=== PATIENT | male | born 1955 | race Caucasian/White ===

== ENCOUNTER 2021-05-10 18:58 | Emergency (ER) | payer MEDICARE, SELFPAY ==
[2021-05-10 19:02] VITALS: BP 160/87; PULSE 84; RESP 16; TEMP 36.2; O2SAT 94; BMI 28.9
--- NOTE | 2021-05-10 19:24 | USCV_ITS ---
Guy Wiseman Age: 66 Gender: M : 1955 Exam Date: 05/10/2021 19:54 Ordering Phys: Seb Brizuela Technologist: Exam Location: [facility] – [place], [place] Indication: LT LEG HISTORY: LT LEG PAIN AND TRAUMA PROCEDURES: Venous duplex imaging was performed in only the left lower extremity. The following venous structures were evaluated: common femoral vein, profunda vein, proximal portion of the greater saphenous vein, superficial femoral vein, and the popliteal vein. In addition, the posterior tibial and peroneal trunk were evaluated. FINDINGS: Normal 2-D Doppler and augmentation and compressibility throughout the lower extremity venous structures. Additional imaging through the proximal calf veins also reveals no thrombus. Limited evaluation of the greater saphenous vein is patent with no thrombus.. CONCLUSIONS No DVT left lower extremity. Dr. Charlotte George DO (Electronically Signed) Final Date: 11 May 2021 09:24 S
--- NOTE | 2021-05-10 19:25 | W.ED.EXTPRO ---
HPI - Extremity Problem General: Chief complaint: Extremity Injury, Lower Stated complaint: LLE INJURY/HIT BY LADDER Time Seen by Provider: 05/10/21 19:16 History of Present Illness: HPI Narrative: Patient is a 66-year-old male comes to the ED with left lower leg pain. Patient says that approximately 3 weeks ago he started developing some swelling and pain in his left lower leg. The swelling and pain improved and then the whole week ago a ladder fell down and caused a small cut on to patient's left schneider. He is now having some redness and pain around the wound on his left schneider. Denies any chest pain, acute shortness of breath or hemoptysis. Patient says he does have a history of blood clots and is currently on warfarin. Associated symptoms: Deny chest pain, fever(s) or rash Review of Systems Const: Denies: fever(s), chills or fatigue Eyes: Denies: change in vision or eye discomfort ENMT: Denies: throat pain, odynophagia, nasal discharge or nasal congestion Card: Denies: chest pain, palpitations, edema, swelling of feet/ankles, dyspnea on exertion or orthopnea Resp: Denies: dyspnea, productive cough or non-productive cough GI: Denies: abdominal pain, nausea, vomiting, diarrhea, constipation or hematochezia : Denies: flank pain, difficulty urinating, dysuria or hematuria Musc: Reports: extremity pain (left lower leg); Denies: neck pain, back pain or extremity swelling Skin/Breast: Reports: erythema (Redness around wound on left schneider), skin tenderness (Skin tender around wound on left schneider.) and new lesions (Small superficial wound on left lower extremity); Denies: rash Neuro: Denies: headache(s), numbness in extremities or weakness in extremities PFS ED PFSH: Social History Smoking and tobacco status: current every day smoker Alcohol intake: never Physical Exam Const: COMMON NORMALS: no acute distress, patient oriented x3 and alert HENMT: COMMON NORMALS: normocephalic HEAD & SCALP: normocephalic MOUTH: Normal oral and palatal mucosa present THROAT: posterior oropharynx normal and uvula midline Neck/C-Spine: COMMON NORMALS: supple GENERAL: Yes normal visual inspection Resp: COMMON NORMALS: normal respiratory effort, No retractions, No use of accessory muscles and clear to auscultation bilaterally AUSCULTATION: clear to auscultation bilaterally Cardio: COMMON NORMALS: regular rate, regular rhythm, S1 normal heart sound present, S2 normal heart sound present, No gallops present (Cardio), No clicks present (Cardio), No murmurs present (Cardio) and Peripheral pulses 2+ throughout RATE: regular rate RHYTHM: regular rhythm HEART SOUNDS: S1 normal heart sound present and S2 normal heart sound present PERIPHERAL PULSES: Peripheral pulses 2+ throughout GI: COMMON NORMALS: Normal to inspection, nondistended, normoactive bowel sounds present, Soft to palpation, non-tender and no masses PALPATION: Yes Soft to palpation : COMMON NORMALS: Yes no CVA tenderness BLADDER/KIDNEY EXAM: Yes no CVA tenderness Back/Pelvis: COMMON NORMALS: no CVA tenderness Extremity: COMMON NORMALS: normal to inspection and no pedal edema NARRATIVE EXTREMITY EXAM: Left lower leg?patient has a small superficial wound that is healing appropriately. There is some surrounding erythema, warmth and tenderness to palpation. GENERAL: Yes calf tenderness (Mild left calf tenderness) Neuro: COMMON NORMALS: patient oriented x3 and moves all extremities SENSORIUM/ORIENTATION: Yes alert Skin: NARRATIVE SKIN EXAM: Left lower leg?patient has a small superficial wound that is healing appropriately. There is some surrounding erythema, warmth and tenderness to palpation. Findings suggestive of cellulitis developing. GENERAL SKIN EXAM: dry skin Course Vital Signs: Vital signs: Vital Signs Temperature 97.1 F L 05/10/21 19:02 Pulse Rate 86 05/10/21 20:23 Respiratory Rate 16 05/10/21 20:23 Blood Pressure 149/87 05/10/21 20:23 Pulse Oximetry 94 05/10/21 20:23 MDM - Extremity (Nontraumatic) MDM Narrative: Medical decision making narrative: Patient is a 66-year-old male comes to the ED with left lower extremity pain and swelling. Patient denies any chest pain, shortness of breath or hemoptysis. He describes having a ladder fall and its cost wound on his left schneider. He states though before that wound he was having some left leg swelling and pain. Exam findings show some cellulitis developing around a small superficial wound on left lower leg. He also had some left calf tenderness. Ultrasound venous duplex of left lower extremity showed no DVTs or blood clots seen. Patient diagnosed with cellulitis and discharged home with a prescription for Bactrim. Follow-up with PCP in 7 to 10 days reevaluation. Return to ED precautions given. Patient understood agree with plan. Imaging Data^: US Vascular: Attestation: I personally reviewed and interpreted this imaging study as follows: Radiologist's impression: Ultrasound venous duplex of left lower extremity?no DVTs or blood clots seen. Discharge Plan Discharge Patient Disposition: Home Clinical Impression: Cellulitis Qualifiers: Site of cellulitis: extremity Site of cellulitis of extremity: lower extremity Laterality: left Qualified Code(s): L03.116 - Cellulitis of left lower limb Condition: Stable Prescriptions: New Bactrim DS 800-160 mg tablet 1 tab PO BID 7 Days Qty: 14 RF: 0 No Action warfarin 5 mg tablet 5 mg PO DAILY RF: 0 levothyroxine [Synthroid] 100 mcg tablet 100 mcg PO DAILY RF: 0 metformin 1,000 mg tablet 1,000 mg PO BID RF: 0 aspirin 81 mg tablet,delayed release (DR/EC) 81 mg PO DAILY RF: 0 Humulin 70/30 U-100 Insulin 100 unit/mL (70-30) suspension 60 unit SUBCUT BID Qty: 30 RF: 5 simvastatin 40 mg tablet 40 mg PO DAILY Qty: 30 RF: 0 Discharge Orders: Discharge ED (Routine); Ordered 05/10/21 Ordered By: Seb Brizuela Referrals: Patrick Nick MD [Primary Care Provider] - Discharge Diet: Regular Discharge Activity: Resume usual activity Patient Instructions: Cellulitis (ED) Activity Restrictions/Additional Instructions: Follow-up with medical provider as directed in 7 to 10 days for reevaluation. Take medications as prescribed. Return to the ER or your medical provider if condition worsens. Please read and understand discharge instructions. Thank you for choosing [facility] for your healthcare needs today. Please realize this is an emergency room and that we are providing you with a medical screening exam and this may not be complete and all inclusive of all the testing and or work up that you may need to determine your ailment or severity of your illness. It is very important that you follow up as instructed or that you return to the Emergency Department should you have concerns or if your condition changes or worsens in any way. Coding Level of Care Code ED Hydraulic Oil Tool Operator for José Cade Exam Comprehensive
[2021-05-10] MEDS: sulfamethoxazole-trimeth DS 160-800 mg Tablet 1 TAB PO (20:03)
[2021-05-10 20:23] VITALS: BP 149/87; PULSE 86; RESP 16; O2SAT 94
== END 2021-05-10 20:10 | disposition home or self-care (01) ==
PROVIDERS: Emergency Provider Physician Assistant; PCP Family Medicine
DX: L03.116 Cellulitis of left lower limb (principal); Z79.01 Long term (current) use of anticoagulants; Z79.82 Long term (current) use of aspirin; Z79.4 Long term (current) use of insulin; F17.210 Nicotine dependence, cigarettes, uncomplicated
CPT/HCPCS: 93971; 99283

== ENCOUNTER 2021-05-23 13:40 | Emergency (ER) | payer MEDICARE, SELFPAY ==
[2021-05-23] VITALS (9 sets, daily range): BP systolic 88–177; BP diastolic 62–95; PULSE 83–103; RESP 15; TEMP 36.4; O2SAT 91–98; BMI 28.4
--- NOTE | 2021-05-23 14:06 | ED_ITS ---
HPI - Abdominal Pain General: Chief Complaint: Abdominal Pain Stated Complaint: ABD PAIN Time Seen by Provider: 05/23/21 13:53 Source: patient and family (Daughter) Mode of arrival: ambulatory Limitations: no limitations History of Present Illness: HPI narrative: Patient with mid abdominal cramping since 4 days ago. Patient is unsure of the source of the discomfort. Patient states she does have a chronic cough from his smoking. No change in the cough. Patient denies any fever chills or myalgias. He denies any urinary symptoms. States he had normal bowel movements this morning. Patient denies any GI bleed or melena. He has used Pepto-Bismol earlier in the week that caused a stool to be dark. He has a chronic umbilical hernia that is easily reducible and nontender. He reports history of pulmonary embolus in 2003 and has been on warfarin since then. He also complains of mild redness to his left lower leg after scraping his left lower leg in the past few days with a ladder. He was seen in the emergency room approximately 10 to 12 days ago for the same problem but a separate incident. He reports the cellulitis did clear up until striking it again with the same ladder. Denies any history of abdominal surgery. He does smoke. MD elicited complaint: abdominal pain (Periumbilical cramping.) Pertinent past history: none Onset (ago): day(s) (4) Pain Consistency: other (Intermittent cramps) Location: Periumbilical Severity: mild Quality: cramping Radiation: none Migration to: no migration Exacerbating factors: nothing Relieving factors: nothing Associated Symptoms: Reports GI cramping; Denies anorexia, change in bowel habits, change in stool character, chills, constipation, diarrhea, dysuria, fever(s), hematochezia, hematuria, hematemesis, melena, nausea and vomiting Review of Systems Const: Denies: fever(s), chills, body aches or diaphoresis Eyes: Denies: change in vision ENMT: Denies: throat pain Card: Denies: chest pain or palpitations Resp: Reports: non-productive cough; Denies: dyspnea or wheezing GI: Reports: abdominal pain and GI cramping; Denies: nausea, vomiting, hematemesis, diarrhea, constipation, change in bowel h abits, change in stool character, hematochezia or melena : Denies: flank pain, dysuria or hematuria Musc: Denies: neck pain or back pain Skin/Breast: Denies: rash or pruritus Neuro: Denies: headache(s) or numbness in extremities Psych: Denies: anxiety Rogelio/Lymph: Denies: enlarged lymph nodes PFSH ED PFSH: Social History Smoking and tobacco status: current every day smoker Alcohol intake: never Physical Exam Const: COMMON NORMALS: no acute distress, patient oriented x3, no limitations and well nourished EXAM LIMITATIONS: altered mental status GENERAL APPEARANCE: cooperative HENMT: COMMON NORMALS: normocephalic and atraumatic HEAD & SCALP: normocephalic and atraumatic FACE & SINUS: normal facial exam Eye: COMMON NORMALS: EOMs intact bilaterally Neck/C-Spine: COMMON NORMALS: full ROM, no lymphadenopathy, supple, no meningeal signs and no JVD GENERAL: Yes normal visual inspection Lymph: LYMPHATIC: no lymphadenopathy noted Chest: COMMONS NORMALS: normal inspection of the chest and normal palpation of entire chest wall CHEST: No Ecchymosis present and No rash Resp: COMMON NORMALS: normal respiratory effort, No retractions, No use of accessory muscles and clear to auscultation bilaterally EFFORT & INSPECTION: No respiratory distress AUSCULTATION: clear to auscultation bilaterally Cardio: COMMON NORMALS: no JVD, regular rate, regular rhythm and Peripheral pulses 2+ throughout JUGULAR VENOUS DISTENTION: no JVD RATE: regular rate RHYTHM: regular rhythm PERIPHERAL PULSES: Peripheral pulses 2+ throughout OTHER: No bruits GI: COMMON NORMALS: Normal to inspection, nondistended, normoactive bowel sounds present (Except does have a approximately 2.5 cm diameter nt umbilical hernia ), Soft to palpation and No hepatosplenomegaly present PALPATION: Yes Soft to palpation and Yes No hepatosplenomegaly present OTHER: Mild tenderness to the abdomen just above the umbilicus. No guarding or rebound. Normoactive bowel sounds : COMMON NORMALS: Yes no CVA tenderness BLADDER/KIDNEY EXAM: Yes no CVA tenderness Back/Pelvis: COMMON NORMALS: no CVA tenderness Extremity: COMMON NORMALS: normal to inspection (Except rash and abrasion as described in skin exam), full ROM and capillary refill normal Neuro: COMMON NORMALS: patient oriented x3, CN's II-XII intact bilaterally, no focal motor deficits and no sensory deficits noted MENINGEAL SIGNS: Yes no meningeal signs Psych: COMMON NORMALS: mental status grossly normal and Normal thought process present THOUGHT PROCESS: Normal thought process present Skin: NARRATIVE SKIN EXAM: Minimal healing abrasion to the left lower anterior tibia. Patient does have mild surrounding cellulitis that is minimally warm. No abscess. Course Vital Signs: Vital signs: Vital Signs Temperature 97.6 F 05/23/21 13:49 Pulse Rate 92 05/23/21 17:30 Respiratory Rate 15 05/23/21 13:49 Blood Pressure 173/93 05/23/21 17:30 Pulse Oximetry 93 05/23/21 17:30 MDM - Abdominal Pain MDM Narrative: Medical decision making narrative: 1800: bp 173/83, will give hydralazine here. Patient states he normally does not have high blood pressure. Patient was advised to follow his blood sugar closely. Patient advised to have liquid diet for the next 24 hours then advance as tolerated. He has an appointment with his primary care physician later this week and will go over high blood pressure issue, mildly elevated lipase and hematuria. Will have patient follow-up with urology for hematuria. Differential Diagnosis: Differential diagnosis abdominal pain: Likely abdominal pain and pancreatitis Lab Data: Attestation: I reviewed the patient's lab results. Labs: Lab Results 05/23/21 05/23/21 05/23/21 Range/Units 14:44 15:15 15:15 WBC 8.9 (4.0-10.0) 10^3/ uL RBC 5.40 H (4.1-5.3) 10^6/u L Hgb 16.7 H (11.7-16.6) g/dL Hct 50.2 (42.0-52.0) % MCV 93.0 (80-94) fL MCH 30.9 (28.0-34.0) pg MCHC 33.3 (30.0-36.0) g/dL RDW 14.1 (12.1-15.1) % Plt Count 194 (130-400) 10^3/c mm MPV 11.3 H (7.4-10.4) fL Neut % (Auto) 58.2 % Lymph % (Auto) 29.7 % [place] % (Auto) 8.9 % Eos % (Auto) 2.1 % Baso % (Auto) 0.6 % Neut # (Auto) 5.17 (1.8-7.7) 10^3/u L Lymph # (Auto) 2.6 (0.8-4.8) 10^3/u L [place] # (Auto) 0.8 (0.2-0.9) 10^3/u L Eos # (Auto) 0.2 (0.0-0.8) 10^3/u L Baso # (Auto) 0.1 (0.0-0.1) 10^3/u L Nucleated RBC % (a uto) 0 % Nucleated RBCs # 0.0 /100WBC Sodium Cancelled Potassium Cancelled Chloride Cancelled Carbon Dioxide Cancelled Anion Gap Cancelled BUN Cancelled Creatinine Cancelled GFR Calculation Cancelled Glucose Cancelled Calculated Osmolal ity Cancelled Calcium Cancelled Total Bilirubin Cancelled AST Cancelled ALT Cancelled Alkaline Phosphata se Cancelled Total Protein Cancelled Albumin Cancelled Globulin Cancelled Lipase Cancelled Urine Color Straw (Yellow) Urine Appearance Clear (CLEAR) Urine pH 5 (5-7) Ur Specific Gravit y 1.015 (1.005-1.030) Urine Protein 3+ H (Negative) Urine Glucose (UA) 4+ H (Normal) Urine Ketones Negative (Negative) Urine Blood 3+ H (Negative) Urine Nitrate Negative (Negative) Urine Bilirubin Neg (Negative) Urine Urobilinogen Norm (Negative) mg/dL Ur Leukocyte Christiana ase Negative (Negative) Urine RBC 10-15 H (0-2) /hpf Urine WBC Rare (0-5) /hpf Ur Squamous Epith Cells None (0-5) /hpf Amorphous Sediment Not Reportable Urine Bacteria Trace (NONE) /hpf 05/23/21 Range/Units 15:58 WBC (4.0-10.0) 10^3/ uL RBC (4.1-5.3) 10^6/u L Hgb (11.7-16.6) g/dL Hct (42.0-52.0) % MCV (80-94) fL MCH (28.0-34.0) pg MCHC (30.0-36.0) g/dL RDW (12.1-15.1) % Plt Count (130-400) 10^3/c mm MPV (7.4-10.4) fL Neut % (Auto) % Lymph % (Auto) % [place] % (Auto) % Eos % (Auto) % Baso % (Auto) % Neut # (Auto) (1.8-7.7) 10^3/u L Lymph # (Auto) (0.8-4.8) 10^3/u L [place] # (Auto) (0.2-0.9) 10^3/u L Eos # (Auto) (0.0-0.8) 10^3/u L Baso # (Auto) (0.0-0.1) 10^3/u L Nucleated RBC % (a uto) % Nucleated RBCs # /100WBC Sodium 137 Potassium 4.5 Chloride 100 Carbon Dioxide 27 Anion Gap 14.5 BUN 21 Creatinine 1.0 GFR Calculation 74.5 L Glucose 320 H Calculated Osmolal ity 299 H Calcium 9.2 Total Bilirubin 0.4 AST 13 ALT 11 Alkaline Phosphata se 110 Total Protein 6.8 Albumin 3.3 L Globulin 3.5 Lipase 116 H Urine Color (Yellow) Urine Appearance (CLEAR) Urine pH (5-7) Ur Specific Gravit y (1.005-1.030) Urine Protein (Negative) Urine Glucose (UA) (Normal) Urine Ketones (Negative) Urine Blood (Negative) Urine Nitrate (Negative) Urine Bilirubin (Negative) Urine Urobilinogen (Negative) mg/dL Ur Leukocyte Christiana ase (Negative) Urine RBC (0-2) /hpf Urine WBC (0-5) /hpf Ur Squamous Epith Cells (0-5) /hpf Amorphous Sediment Urine Bacteria (NONE) /hpf Imaging Data ^: CT Abd/Pel: Radiologist's impression: Guy Wiseman #: [id number]: 4Acct#:[id number]/Sex: 66 / MADM Date: 05/23/21Loc: ERRoom/Bed:Attending Dr: Ordering Provider/Ordering MD: Gallo Sandhu MD Date of Service: 05/23/21 Procedure(s): CT abdomen pelvis w con* [id number] Accession Number(s): [id number] Report Number: [id number] PROCEDURE INFORMATION: Exam: CT Abdomen And Pelvis With Contrast Exam date and time: 05/23/2021 4:44 PM Age: 66 years old Clinical indication: Abdominal pain; Generalized; Additional info: Pain, mildly elevated lipase, insulin-dependent diabetic; ^microscopic hematuria TECHNIQUE: Imaging protocol: Computed tomography of the abdomen and pelvis with contrast. Radiation optimization: All CT scans at this facility use at least one of these dose optimization techniques: automated exposure control; mA and/or kV adjustment per patient size (includes targeted exams where dose is matched to clinical indication); or iterative reconstruction. Contrast material: OMNI 300; Contrast volume: 95 ml; Contrast route: INTRAVENOUS (IV); COMPARISON: CTA AbdAorta Runoff Leg [id number] 08/26/2019 2:52 PM RADIATION DOSE METRICS: Total DLP (mGy-cm): 1444.64 FINDINGS: Liver: Normal. No mass. Gallbladder and bile ducts: Normal. No calcified stones. No ductal dilation. Pancreas: Normal. No ductal dilation. Spleen: Normal. No splenomegaly. Adrenal glands: Normal. No mass. Kidneys and ureters: Normal. No hydronephrosis. No calcified stones. Stomach and bowel: Unremarkable. No obstruction. No mucosal thickening. Appendix: No evidence of appendicitis. Intraperitoneal space: Unremarkable. No free air. No significant fluid collection. Vasculature: Scattered atherosclerosis. No aneurysm. No dissection. No acute vascular occlusion. Lymph nodes: Unremarkable. No enlarged lymph nodes. Urinary bladder: Unremarkable as visualized. Reproductive: Unremarkable as visualized. Bones/joints: Old wedge compression fracture deformity at T12 is unchanged from prior. No acute fractures. No lytic bone lesion. Soft tissues: Small fat containing umbilical hernia. CT/CT abdomen pelvis w con* [id number] IMPRESSION: Negative for acute abdominopelvic abnormality. Radiation Dose CTDIVOL = (mGy): DLP = 1444.64 (mGy-cm) Dictated By:Mely Lizama By:Mely Lizama Date/Time:05/23/21 7551 Discharge Plan Discharge Patient Disposition: Home Clinical Impression: Borderline high blood pressure Abdominal pain Qualifiers: Abdominal location: periumbilical Qualified Code(s): R10.33 - Periumbilical pain Hematuria Qualifiers: Hematuria type: asymptomatic microscopic Qualified Code(s): R31.21 - Asymptomatic microscopic hematuria Condition: Stable Prescriptions: New dicyclomine 20 mg tablet 20 mg PO QID Qty: 15 RF: 1 Zofran 4 mg tablet 4 mg PO Q6H PRN (Reason: nausea and vomiting) Qty: 10 RF: 2 No Action warfarin 5 mg tablet 5 mg PO DAILY RF: 0 levothyroxine [Synthroid] 100 mcg tablet 100 mcg PO DAILY RF: 0 metformin 1,000 mg tablet 1,000 mg PO BID RF: 0 aspirin 81 mg tablet,delayed release (DR/EC) 81 mg PO DAILY RF: 0 Humulin 70/30 U-100 Insulin 100 unit/mL (70-30) suspension 60 unit SUBCUT BID Qty: 30 RF: 5 simvastatin 40 mg tablet 40 mg PO DAILY Qty: 30 RF: 0 Discharge Orders: Discharge ED (Routine); Ordered 05/23/21 Ordered By: Gallo Sandhu Referrals: Ronaldo Mccormick MD [Physician] - (Follow-up with urology to evaluate your blood in your urine.) Patrick Nick MD [Primary Care Provider] - Discharge Diet: Clear Liquid Discharge Activity: Increase activity as tolerated Patient Instructions: Abdominal Pain (ED), Opioid Safety Activity Restrictions/Additional Instructions: Liquid diet for the next 24 hours. Advance diet as tolerated. Follow-up with your family doctor this week as scheduled for consultation of your mildly elevated blood pressure and blood in your urine. Follow-up with your urologist for evaluation of the blood in your urine. Coding Level of Care Code ED Greeting Card Writer for José Fwd Exam Comprehensive
[2021-05-23] MEDS: sodium chloride 0.9% 500 ML IV ×2 (15:15→17:21)
[2021-05-23 15:23] LABS: Bilirubin Urine Neg (Negative); Blood Urine 3+ (Negative); Glucose Urine UA 4+ (Normal); Ketones Urine Negative (Negative); Leukocyte Esterase Urine Negative (Negative); Nitrate Urine Negative (Negative); Protein Urine 3+ (Negative); Specific Gravity, Urine 1.015 (1.005-1.030); Urine Appearance Clear (CLEAR); Urine Color Straw (Yellow); Urobilinogen Urine Norm (Negative); pH Urine 5 (5-7)
[2021-05-23 15:24] LABS: Add Urine Culture? No; Bacteria Urine TRACE /hpf; WBC Urine RARE /hpf (0-5)
[2021-05-23 15:32] LABS: Basophils # 0.1 10^3/uL (0.0-0.1); Basophils % 0.6 %; Eosinophils # 0.2 10^3/uL (0.0-0.8); Eosinophils % 2.1 %; Hematocrit 50.2 % (42.0-52.0); Hemoglobin 16.7 g/dL (11.7-16.6); Lymphocytes # 2.6 10^3/uL (0.8-4.8); Lymphocytes % 29.7 %; Mean Corpuscular HGB Conc 33.3 g/dL (30.0-36.0); Mean Corpuscular Hemoglobin 30.9 pg (28.0-34.0); Mean Platelet Volume 11.3 fL (7.4-10.4); Monocytes # 0.8 10^3/uL (0.2-0.9); Monocytes % 8.9 %; Neutrophils # 5.17 10^3/uL (1.8-7.7); Neutrophils % 58.2 %; Nucleated Red Blood Cells % 0 %; Platelet Count 194 10^3/cmm (130-400); Red Cell Distribution Width 14.1 % (12.1-15.1); White Blood Count 8.9 10^3/uL (4.0-10.0)
[2021-05-23 16:26] LABS: Alanine Aminotransferase 11 U/L (0-41); Albumin Level 3.3 g/dL (3.5-5.2); Alkaline Phosphatase 110 IU/L (40-130); Anion Gap 14.5 (5-19); Aspartate Amino Transferase 13 U/L (0-40); Blood Urea Nitrogen 21 mg/dL (8-23); Calcium 9.2 mg/dL (8.5-10.5); Carbon Dioxide 27 mmol/L (22-29); Chloride 100 mmol/L (98-107); Globulin 3.5 g/dL (1.3-4.6); Glomerular Filtration Rate 74.5 mL/min (90-130); Glucose 320 mg/dL (65-115); Lipase 116 U/L (13-60); Osmolality Calculated 299 mOsm/kg (285-295); Potassium 4.5 mmol/L (3.5-5.1); Sodium 137 mmol/L (136-145); Total Bilirubin 0.4 mg/dL (0.15-1.2); Total Protein 6.8 g/dL (6.6-8.7)
--- NOTE | 2021-05-23 16:44 | CTR_ITS ---
PROCEDURE INFORMATION: Exam: CT Abdomen And Pelvis With Contrast Exam date and time: 05/23/2021 4:44 PM Age: 66 years old Clinical indication: Abdominal pain; Generalized; Additional info: Pain, mildly elevated lipase, insulin-dependent diabetic; ^microscopic hematuria TECHNIQUE: Imaging protocol: Computed tomography of the abdomen and pelvis with contrast. Radiation optimization: All CT scans at this facility use at least one of these dose optimization techniques: automated exposure control; mA and/or kV adjustment per patient size (includes targeted exams where dose is matched to clinical indication); or iterative reconstruction. Contrast material: OMNI 300; Contrast volume: 95 ml; Contrast route: INTRAVENOUS (IV); COMPARISON: CTA AbdAorta Runoff Leg [id number] 08/26/2019 2:52 PM RADIATION DOSE METRICS: Total DLP (mGy-cm): 1444.64 FINDINGS: Liver: Normal. No mass. Gallbladder and bile ducts: Normal. No calcified stones. No ductal dilation. Pancreas: Normal. No ductal dilation. Spleen: Normal. No splenomegaly. Adrenal glands: Normal. No mass. Kidneys and ureters: Normal. No hydronephrosis. No calcified stones. Stomach and bowel: Unremarkable. No obstruction. No mucosal thickening. Appendix: No evidence of appendicitis. Intraperitoneal space: Unremarkable. No free air. No significant fluid collection. Vasculature: Scattered atherosclerosis. No aneurysm. No dissection. No acute vascular occlusion. Lymph nodes: Unremarkable. No enlarged lymph nodes. Urinary bladder: Unremarkable as visualized. Reproductive: Unremarkable as visualized. Bones/joints: Old wedge compression fracture deformity at T12 is unchanged from prior. No acute fractures. No lytic bone lesion. Soft tissues: Small fat containing umbilical hernia. CT/CT abdomen pelvis w con* [id number] IMPRESSION: Negative for acute abdominopelvic abnormality. Radiation Dose CTDIVOL = (mGy): DLP = 1444.64 (mGy-cm)
[2021-05-23] MEDS: insulin regular-human 100 units/1 mL 3 UNIT IVP (17:19)
[2021-05-23] MEDS: iohexol 300 mg/mL 100 mL Btl IV (17:31)
--- NOTE | 2021-05-23 17:44 | PC.NURSE ---
Pt BP 166/88 before giving 2nd 500ml bag of NS. Fluid administration approved per Dr. Sandhu.
--- NOTE | 2021-05-23 17:57 | PC.NURSE ---
Pt BP increased to 173/93. Dr. Sandhu advised. Orderd to DC fluids.
[2021-05-23] MEDS: hyDRALAzine 20 mg/mL INJ 1 mL 5 MG IVP (18:10)
== END 2021-05-23 18:38 | disposition home or self-care (01) ==
PROVIDERS: Emergency Provider Family Medicine; PCP Family Medicine
DX: R10.33 Periumbilical pain (principal); R31.21 Asymptomatic microscopic hematuria; R03.0 Elevated blood-pressure reading, without diagnosis of hypertension; Z79.01 Long term (current) use of anticoagulants; Z79.84 Long term (current) use of oral hypoglycemic drugs; Z79.82 Long term (current) use of aspirin; Z79.4 Long term (current) use of insulin; F17.210 Nicotine dependence, cigarettes, uncomplicated
CPT/HCPCS: 36415; 74177; 80053; 81001; 83690; 85025; 87086; 96361; 96374; 96375; 99285; J0360; J1815; J7040; Q9967

== ENCOUNTER 2021-08-09 12:02 | Emergency (ER) | payer MEDICARE, SELFPAY ==
[2021-08-09 12:29] VITALS: BP 154/94; PULSE 84; RESP 16; TEMP 36.5; O2SAT 95
--- NOTE | 2021-08-09 14:03 | W.ED.BACK ---
HPI - Back Pain/Injury General: Chief Complaint: Back Pain/Injury Stated Complaint: R FLANK/R MID BACK PAIN Time Seen by Provider: 08/09/21 13:36 History of Present Illness: HPI Narrative: Patient is a 66-year-old male who comes to the ED with back pain. Patient says symptoms started yesterday. He was having some mild lower back pain and then was helping a friend fix up a vehicle and any twisted his back and felt the pain in his right lower back region. He currently rates the pain a 6 out of 10. Pain gets worse when twisting trunk left and right. Denies any numbness tingling down legs or pain radiating down the leg. Denies any bladder or bowel incontinence, pelvic anesthesia or any weakness to lower extremities. Associated symptoms: Deny abdominal pain, chills, dysuria, fatigue, fever(s), hematuria, nausea or vomiting Review of Systems Const: Denies: fever(s), chills or fatigue Eyes: Denies: change in vision or eye discomfort ENMT: Denies: throat pain, odynophagia, nasal discharge or nasal congestion Card: Denies: chest pain, palpitations, edema, swelling of feet/ankles, dyspnea on exertion or orthopnea Resp: Denies: dyspnea, productive cough or non-productive cough GI: Denies: abdominal pain, nausea, vomiting, diarrhea, constipation or hematochezia : Denies: flank pain, difficulty urinating, dysuria or hematuria Musc: Reports: back pain; Denies: neck pain or extremity swelling Skin/Breast: Denies: rash or new lesions Neuro: Denies: headache(s), numbness in extremities or weakness in extremities [facility] ED PFSH: Social History Smoking and tobacco status: current every day smoker Alcohol intake: never Physical Exam Const: COMMON NORMALS: no acute distress, patient oriented x3 and alert HENMT: COMMON NORMALS: normocephalic HEAD & SCALP: normocephalic MOUTH: Normal oral and palatal mucosa present THROAT: posterior oropharynx normal and uvula midline Eye: COMMON NORMALS: Equal, round and reactive pupils present PUPIL: Yes Equal, round and reactive pupils present Neck/C-Spine: COMMON NORMALS: supple GENERAL: Yes normal visual inspection Resp: COMMON NORMALS: normal respiratory effort, No retractions, No use of accessory muscles and clear to auscultation bilaterally AUSCULTATION: clear to auscultation bilaterally Cardio: COMMON NORMALS: regular rate, regular rhythm, S1 normal heart sound present, S2 normal heart sound present, No gallops present (Cardio), No clicks present (Cardio), No murmurs present (Cardio) and Peripheral pulses 2+ throughout RATE: regular rate RHYTHM: regular rhythm HEART SOUNDS: S1 normal heart sound present and S2 normal heart sound present PERIPHERAL PULSES: Peripheral pulses 2+ throughout GI: COMMON NORMALS: Normal to inspection, nondistended, normoactive bowel sounds present, Soft to palpation, non-tender and no masses PALPATION: Yes Soft to palpation : COMMON NORMALS: Yes no CVA tenderness BLADDER/KIDNEY EXAM: Yes no CVA tenderness Back/Pelvis: COMMON NORMALS: no CVA tenderness LUMBAR SPINE/LOWER BACK: Yes pain with ROM, No lumbar spinal tenderness, Yes paraspinal muscle tenderness Lumbar paraspinal muscle tenderness: right and No paraspinal muscle spasm Extremity: COMMON NORMALS: normal to inspection Neuro: COMMON NORMALS: patient oriented x3 and moves all extremities SENSORIUM/ORIENTATION: Yes alert Skin: GENERAL SKIN EXAM: dry skin Course Vital Signs: Vital signs: Vital Signs Temperature 97.7 F 08/09/21 12:29 Pulse Rate 81 08/09/21 14:41 Respiratory Rate 16 08/09/21 14:41 Blood Pressure 160/94 08/09/21 14:41 Pulse Oximetry 95 08/09/21 14:41 MDM - Back Pain/Injury MDM Narrative: Medical decision making narrative: Patient is a 66-year-old male comes to the ED with low back muscle strain. Denies any fall or trauma to cause the pain. Patient says he twisted his back while working and is now having some right sided lower back pain. Patient says any twisting movement of torso causes right lumbar pain. Denies any pain radiating down into the legs. Denies any cauda equina symptoms. Vital stable. Exam shows a healthy nontoxic appearing 66-year-old male in no acute distress. He has some right-sided paraspinal lumbar muscle tenderness along with soft tissue tenderness on the right side of lower back. Patient was given a dose of Toradol while here in the ED. He was diagnosed with a strain of lumbar region and discharged home with a prescription for methocarbamol. He was told to rest, limit activity and lifting for the next couple days and apply cold pack or heat on lower back to with symptoms. Take [id number] Tylenol for pain. Return to ED precautions given. Patient understood and agreed with plan. Discharge Plan Discharge Patient Disposition: Home Clinical Impression: Strain of lumbar region Qualifiers: Encounter type: initial encounter Qualified Code(s): S39.012A - Strain of muscle, fascia and tendon of lower back, initial encounter Condition: Stable Prescriptions: New methocarbamol 750 mg tablet 750 mg PO Q8H PRN (Reason: muscle pain) Qty: 20 RF: 0 No Action warfarin 5 mg tablet 5 mg PO DAILY RF: 0 levothyroxine [Synthroid] 100 mcg tablet 100 mcg PO DAILY RF: 0 metformin 1,000 mg tablet 1,000 mg PO BID RF: 0 aspirin 81 mg tablet,delayed release (DR/EC) 81 mg PO DAILY RF: 0 Humulin 70/30 U-100 Insulin 100 unit/mL (70-30) suspension 60 unit SUBCUT BID Qty: 30 RF: 5 simvastatin 40 mg tablet 40 mg PO DAILY Qty: 30 RF: 0 dicyclomine 20 mg tablet 20 mg PO QID Qty: 15 RF: 1 Zofran 4 mg tablet 4 mg PO Q6H PRN (Reason: nausea and vomiting) Qty: 10 RF: 2 Discharge Orders: Discharge ED (Routine); Ordered 08/09/21 Ordered By: Seb Brizuela Referrals: Patrick Nick MD [Primary Care Provider] - Discharge Diet: Regular Discharge Activity: Increase activity as tolerated and Limit activity as instructed Patient Instructions: Low Back Strain (ED), Opioid Safety Activity Restrictions/Additional Instructions: Follow-up with medical provider as directed in 7 to 10 days reevaluation rest, limit lifting and activity for the next 3-5 days. ice or apply heat on lower back to help with symptoms. Take medications as prescribed. Methocarbamol as a muscle relaxer and can cause some drowsiness so take at night before going to bed. If you are going to take methocarbamol during the day use with caution. Return to the ER or your medical provider if condition worsens. Please read and understand discharge instructions. Thank you for choosing [facility] for your healthcare needs today. Please realize this is an emergency room and that we are providing you with a medical screening exam and this may not be complete and all inclusive of all the testing and or work up that you may need to determine your ailment or severity of your illness. It is very important that you follow up as instructed or that you return to the Emergency Department should you have concerns or if your condition changes or worsens in any way. Coding Level of Care Code ED Competency Evaluated Nurse Aide for José Fwd Exam Comprehensive
[2021-08-09] MEDS: HYDROcodone-acetaminophen 5-325 mg Tablet 1 TAB PO (14:38)
[2021-08-09] MEDS: orphenadrine 30 mg/mL Inj 2 mL 60 MG IM (14:38)
[2021-08-09 14:41] VITALS: BP 160/94; PULSE 81; RESP 16; O2SAT 95
== END 2021-08-09 14:42 | disposition home or self-care (01) ==
PROVIDERS: Emergency Provider Physician Assistant; PCP Family Medicine
DX: S39.012A Strain of muscle, fascia and tendon of lower back, initial encounter (principal); Z79.01 Long term (current) use of anticoagulants; Z79.4 Long term (current) use of insulin; Z79.82 Long term (current) use of aspirin; F17.210 Nicotine dependence, cigarettes, uncomplicated; X50.1XXA Overexertion from prolonged static or awkward postures, initial encounter
CPT/HCPCS: 96372; 99283; J2360

== ENCOUNTER 2021-12-10 11:00 | Emergency (ER) | payer MEDICARE, SELFPAY ==
[2021-12-10 11:12] VITALS: BP 161/88; PULSE 85; RESP 16; TEMP 36.7; O2SAT 95; BMI 29.7
--- NOTE | 2021-12-10 11:24 | W.ED.BACK ---
HPI - Back Pain/Injury General: Chief Complaint: Back Pain/Injury Stated Complaint: LOWER BACK AND RIGHT LEG PAIN Time Seen by Provider: 12/10/21 11:19 History of Present Illness: HPI Narrative: Patient complains about low back pain that goes down the right hip into upper part of right leg this been going on for few days. Denies any recent injury. States it hurts to set up get out of bed roll over in bed to ambulate. Patient has had history of previous joint and back problems. Associated symptoms: Deny abdominal pain, chills, fever(s), nausea or vomiting Review of Systems Const: Denies: fever(s), chills or body aches Eyes: Denies: change in vision or blurry vision ENMT: Denies: throat pain or nasal congestion Card: Denies: chest pain or dyspnea on exertion Resp: Denies: dyspnea, productive cough or non-productive cough GI: Denies: abdominal pain, nausea or vomiting : Denies: difficulty urinating Musc: Reports: back pain and extremity pain Skin/Breast: Denies: rash Neuro: Denies: headache(s) Psych: Denies: anxiety or depression Rogelio/Lymph: Denies: easy bruising PFSH ED PFSH: Social History Smoking and tobacco status: current every day smoker Alcohol intake: never Physical Exam Const: COMMON NORMALS: no acute distress, average body habitus and patient oriented x3 HENMT: COMMON NORMALS: normocephalic HEAD & SCALP: normal to inspection and normocephalic FACE & SINUS: normal facial exam Eye: COMMON NORMALS: conjunctivae normal GENERAL EYE: appearance normal, both eyes and all related structures CONJUNCTIVA: Yes conjunctivae normal Neck/C-Spine: COMMON NORMALS: no JVD Chest: COMMONS NORMALS: normal inspection of the chest Resp: COMMON NORMALS: normal respiratory effort Cardio: COMMON NORMALS: no JVD GI: INSPECTION: Yes normal to inspection Back/Pelvis: LUMBAR SPINE/LOWER BACK: Yes paraspinal muscle tenderness (Cross andTenderness from lumbar down through the buttock to her thigh) Lumbar paraspinal muscle tenderness: right OTHER: Sciatic pain from buttock down to mid thigh right side. Patient is able to ambulate without difficulty. Extremity: COMMON NORMALS: normal to inspection and full ROM Neuro: COMMON NORMALS: patient oriented x3 Course Vital Signs: Vital signs: Vital Signs Temperature 98.1 F 12/10/21 11:12 Pulse Rate 85 12/10/21 11:12 Respiratory Rate 16 12/10/21 11:12 Blood Pressure 161/88 12/10/21 11:12 Pulse Oximetry 95 12/10/21 11:12 Discharge Plan Discharge Patient Disposition: Home Clinical Impression: Lumbar radiculopathy, acute Condition: Stable Prescriptions: New prednisone 20 mg tablet 20 mg PO DAILY Qty: 7 RF: 0 Celebrex 100 mg capsule 100 mg PO BID Qty: 20 RF: 0 No Action warfarin 5 mg tablet 5 mg PO DAILY RF: 0 levothyroxine [Synthroid] 100 mcg tablet 100 mcg PO DAILY RF: 0 metformin 1,000 mg tablet 1,000 mg PO BID RF: 0 aspirin 81 mg tablet,delayed release (DR/EC) 81 mg PO DAILY RF: 0 Humulin 70/30 U-100 Insulin 100 unit/mL (70-30) suspension 60 unit SUBCUT BID Qty: 30 RF: 5 simvastatin 40 mg tablet 40 mg PO DAILY Qty: 30 RF: 0 dicyclomine 20 mg tablet 20 mg PO QID Qty: 15 RF: 1 Zofran 4 mg tablet 4 mg PO Q6H PRN (Reason: nausea and vomiting) Qty: 10 RF: 2 methocarbamol 750 mg tablet 750 mg PO Q8H PRN (Reason: muscle pain) Qty: 20 RF: 0 Discharge Orders: Discharge ED (Routine); Ordered 12/10/21 Ordered By: Abel Cardenas Referrals: Patrick Nick MD [Primary Care Provider] - Discharge Diet: Usual diet Discharge Activity: Limit activity as instructed Patient Instructions: Lumbar Radiculopathy (ED) Activity Restrictions/Additional Instructions: Follow-up with medical provider as directed. Take medications as prescribed. Return to the ER or your medical provider if condition worsens. Please read and understand discharge instructions. If any questions ask please. No lifting over 10 pounds for next 2 to 3 weeks. Follow-up Dr. Nick next week. Apply ice to area and back discomfort. No that prednisone that you are prescribed well increase her blood sugars for next few days probably. Take Celebrex for pain. Coding Level of Care Code ED Reproductive Endocrinologist for José Cade
--- NOTE | 2021-12-10 11:26 | PC.NURSE ---
reviewed discharge instructions with patient, patient verbalizes understanding of all instructions, follow up early next week, weight restrictions and new medications, patient able to ambulate from the ED
== END 2021-12-10 11:29 | disposition home or self-care (01) ==
PROVIDERS: Emergency Provider Nurse Practitioner Family; PCP Family Medicine
DX: M54.16 Radiculopathy, lumbar region (principal); Z79.01 Long term (current) use of anticoagulants; Z79.84 Long term (current) use of oral hypoglycemic drugs; Z79.82 Long term (current) use of aspirin; F17.210 Nicotine dependence, cigarettes, uncomplicated
CPT/HCPCS: 99282

== ENCOUNTER 2022-07-26 17:20 | Emergency (ER) | payer MEDICARE, SELFPAY ==
[2022-07-26 17:53] VITALS: BP 121/68; PULSE 89; RESP 18; TEMP 37.3; O2SAT 91
--- NOTE | 2022-07-26 18:01 | XRR_ITS ---
PROCEDURE INFORMATION: Exam: XR Chest Exam date and time: 07/26/2022 6:49 PM Age: 67 years old Clinical indication: Dyspnea TECHNIQUE: Imaging protocol: Radiologic exam of the chest. Views: 1 view. COMPARISON: CT chest w con* [id number] 05/30/2017 8:16 AM FINDINGS: Lungs: Patchy bilateral right greater than left mixed interstitial and airspace infiltrates suspected. Pleural spaces: Unremarkable. No pleural effusion. No pneumothorax. Heart/Mediastinum: Unremarkable. No cardiomegaly. Bones/joints: Unremarkable. XR/XR chest 1V portable [id number] IMPRESSION: Patchy bilateral right greater than left mixed interstitial and airspace infiltrates suspected.
[2022-07-26 20:46] LABS: Basophils % 0.4 %; Eosinophils # 0.1 10^3/uL (0.0-0.8); Eosinophils % 0.8 %; Hematocrit 46.8 % (42.0-52.0); Hemoglobin 15.2 g/dL (11.7-16.6); Lymphocytes # 1.2 10^3/uL (0.8-4.8); Lymphocytes % 15.5 %; Mean Corpuscular HGB Conc 32.5 g/dL (30.0-36.0); Mean Corpuscular Hemoglobin 30.6 pg (28.0-34.0); Mean Corpuscular Volume 94.4 fl (80-94); Mean Platelet Volume 10.1 fL (7.4-10.4); Monocytes # 1.2 10^3/uL (0.2-0.9); Monocytes % 15.6 %; Neutrophils # 5.16 10^3/uL (1.8-7.7); Neutrophils % 67.3 %; Nucleated Red Blood Cells % 0 %; Platelet Count 154 10^3/cmm (130-400); Red Blood Count 4.96 10^6/uL (4.1-5.3); Red Cell Distribution Width 14.1 % (12.1-15.1); White Blood Count 7.7 10^3/uL (4.0-10.0)
[2022-07-26 21:11] LABS: Alanine Aminotransferase 16 U/L (0-41); Albumin Level 3.5 g/dL (3.5-5.2); Alkaline Phosphatase 134 U/L (40-130); Anion Gap 15.8 (5-19); Aspartate Amino Transferase 27 U/L (0-40); Blood Urea Nitrogen 24 mg/dL (8-23); Calcium 9.1 mg/dL (8.5-10.5); Carbon Dioxide 25 mmol/L (22-29); Chloride 98 mmol/L (98-107); Globulin 3.5 g/dL (1.3-4.6); Glomerular Filtration Rate 54.9 mL/min (90-130); Glucose 234 mg/dL (65-115); Osmolality Calculated 292 mOsm/kg (285-295); Potassium 3.8 mmol/L (3.5-5.1); Sodium 135 mmol/L (136-145); Total Bilirubin 0.3 mg/dL (0.15-1.2)
[2022-07-26] MEDS: dexamethasone 10 mg/mL INJ IM (22:34)
[2022-07-26 22:42] VITALS: PULSE 110; RESP 16; O2SAT 93
[2022-07-26 22:44] VITALS: O2SAT 87; O2SAT 92; O2SAT 94
[2022-07-26 22:45] VITALS: O2SAT 93
--- NOTE | 2022-07-26 22:48 | ECG_ITS ---
[facility] Test Date: 2022-07-26 Pat Name: Guy Wiseman Department: Room: Gender: Male Workday Senior Associate: : 1955 Requested By: Herny Garcia Order Number: [id number] Valeria MD: Franklin Nuno M.D. Measurements Intervals [place] Rate: 105 P: -13 [place]: 188 QRS: -43 QRSD: 98 T: 75 QT: 331 QTc: 439 Interpretive Statements SINUS TACHYCARDIA POSSIBLE LEFT ATRIAL ENLARGEMENT [-0.1mV P-WAVE IN V1/V2] LEFT AXIS DEVIATION [QRS AXIS < -30] INFERIOR MYOCARDIAL INFARCTION , OF INDETERMINATE AGE [40+ ms Q WAVE AND/OR ST/T ABNORMALITY IN II/aVF] Compared to ECG 12/28/2014 15:06:22 Left-axis deviation now present Myocardial infarct finding now present Sinus rhythm no longer present Sinus arrhythmia no longer present Electronically Signed On 07-28-2022 14:36:43 CDT by Franklin Nuno M.D. [id number]
--- NOTE | 2022-07-26 22:56 | ED_ITS ---
HPI - COVID General: Chief Complaint: COVID symptoms Stated Complaint: Covid + Time Seen by Provider: 07/26/22 18:01 Source: patient Mode of arrival: ambulatory Limitations: no limitations Triage information: Has fever, cough or shortness of breath . Exposure to COVID + person last 14 days History of Present Illness: 67-year-old male states over the last 2 days been having some cough congestion along with fever and body aches. He states that his girlfriend that he has been around tested positive for COVID he states he took a home test today that was positive states that he has been having some hypoxia at home with exertion down to 88. Denies any worsening proving factors. COVID 19 common symptoms: positive chills, non-productive cough, dyspnea, fatigue and body aches; negative headache(s), throat pain, nausea, vomiting or diarrhea COVID 19 other sytmptoms: negative chest pain COVID Results: SARS-CoV-2 Antigen (Rapid) Positive (Negative) H 07/26/22 22:4 0 Review of Systems Const: Reports: chills, body aches and fatigue Eyes: Denies: blurry vision or eye discomfort ENMT: Denies: throat pain or dental pain Card: Denies: chest pain Resp: Reports: dyspnea and non-productive cough GI: Denies: abdominal pain, nausea, vomiting or diarrhea : Denies: dysuria Musc: Denies: neck pain or back pain Skin/Breast: Denies: rash Neuro: Denies: headache(s) Psych: Denies: depression Rogelio/Lymph: Denies: easy bruising All/Imm: Denies: urticaria PFSH ED PFSH: Social History Smoking and tobacco status: current every day smoker Alcohol intake: never Physical Exam Const: COMMON NORMALS: no acute distress, patient oriented x3 and healthy appearing HENMT: COMMON NORMALS: normocephalic and atraumatic HEAD & SCALP: normocephalic and atraumatic Eye: COMMON NORMALS: Equal, round and reactive pupils present and EOMs intact bilaterally PUPIL: Yes Equal, round and reactive pupils present Neck/C-Spine: COMMON NORMALS: full ROM and supple Chest: COMMONS NORMALS: normal inspection of the chest and normal palpation of entire chest wall Resp: COMMON NORMALS: normal respiratory effort, No retractions and No use of accessory muscles AUSCULTATION: rales Cardio: COMMON NORMALS: regular rate, regular rhythm and No murmurs present (Cardio) RATE: regular rate RHYTHM: regular rhythm GI: COMMON NORMALS: Normal to inspection, nondistended, normoactive bowel sounds present, Soft to palpation, non-tender and no masses PALPATION: Yes Soft to palpation Extremity: COMMON NORMALS: normal to inspection and full ROM Neuro: COMMON NORMALS: patient oriented x3, moves all extremities and no focal motor deficits Psych: COMMON NORMALS: mental status grossly normal, Normal thought process present and cooperative THOUGHT PROCESS: Normal thought process present Skin: COMMON NORMALS: no rashes or lesions noted and no wounds GENERAL SKIN EXAM: no rashes or lesions noted Course Vital Signs: Vital signs: Vital Signs Temperature 99.2 F 07/26/22 17:53 Pulse Rate 110 H 07/26/22 22:42 Respiratory Rate 16 07/26/22 22:42 Blood Pressure 121/68 07/26/22 17:53 Pulse Oximetry 93 07/26/22 22:45 Oxygen Delivery Me thod 07/26/22 22:45 Oxygen Flow Rate 2 07/26/22 22:44 MDM - COVID Medical Decision Making Patient presents here with dyspnea did test positive for COVID he is wanting to go home he is well-appearing here he did qualify for 2 L oxygen patient given Decadron shot will prescribe albuterol inhaler for home as well needs to watch his oxygen return if worsening he understands agrees to plan. Lab Data : 07/26/22 20:40 07/26/22 20:40 Radiology Impressions Chest X-Ray 07/26/22 18:01 IMPRESSION: Patchy bilateral right greater than left mixed interstitial and airspace infiltrates suspected. Laboratory Results WBC 7.7 10^3/uL (4.0-10.0) 07/26/22 20:40 RBC 4.96 10^6/uL (4.1-5.3) 07/26/22 20:40 Hgb 15.2 g/dL (11.7-16.6) 07/26/22 20:40 Hct 46.8 % (42.0-52.0) 07/26/22 20:40 MCV 94.4 fl (80-94) H 07/26/22 20:40 MCH 30.6 pg (28.0-34.0) 07/26/22 20:40 MCHC 32.5 g/dL (30.0-36.0) 07/26/22 20:40 RDW 14.1 % (12.1-15.1) 07/26/22 20:40 Plt Count 154 10^3/cmm (130-400) 07/26/22 20:40 MPV 10.1 fL (7.4-10.4) 07/26/22 20:40 Neut % (Auto) 67.3 % 07/26/22 20:40 Lymph % (Auto) 15.5 % 07/26/22 20:40 [place] % (Auto) 15.6 % 07/26/22 20:40 Eos % (Auto) 0.8 % 07/26/22 20:40 Baso % (Auto) 0.4 % 07/26/22 20:40 Neut # (Auto) 5.16 10^3/uL (1.8-7.7) 07/26/22 20:40 Lymph # (Auto) 1.2 10^3/uL (0.8-4.8) 07/26/22 20:40 [place] # (Auto) 1.2 10^3/uL (0.2-0.9) H 07/26/22 20:40 Eos # (Auto) 0.1 10^3/uL (0.0-0.8) 07/26/22 20:40 Baso # (Auto) 0.0 10^3/uL (0.0-0.1) 07/26/22 20:40 Nucleated RBC % (auto) 0 % 07/26/22 20:40 Nucleated RBCs # 0.0 /100WBC 07/26/22 20:40 Sodium 135 mmol/L (136-145) L 07/26/22 20:40 Potassium 3.8 mmol/L (3.5-5.1) 07/26/22 20:40 Chloride 98 mmol/L (98-107) 07/26/22 20:40 Carbon Dioxide 25 mmol/L (22-29) 07/26/22 20:40 Anion Gap 15.8 (5-19) 07/26/22 20:40 BUN 24 mg/dL (8-23) H 07/26/22 20:40 Creatinine 1.3 mg/dL (0.7-1.2) H 07/26/22 20:40 GFR Calculation 54.9 mL/min (90-130) L 07/26/22 20:40 Glucose 234 mg/dL (65-115) H 07/26/22 20:40 Calculated Osmolality 292 mOsm/kg (285-295) 07/26/22 20:40 Calcium 9.1 mg/dL (8.5-10.5) 07/26/22 20:40 Total Bilirubin 0.3 mg/dL (0.15-1.2) 07/26/22 20:40 AST 27 U/L (0-40) 07/26/22 20:40 ALT 16 U/L (0-41) 07/26/22 20:40 Alkaline Phosphatase 134 U/L (40-130) H 07/26/22 20:40 Total Protein 7.0 g/dL (6.6-8.7) 07/26/22 20:40 Albumin 3.5 g/dL (3.5-5.2) 07/26/22 20:40 Globulin 3.5 g/dL (1.3-4.6) 07/26/22 20:40 SARS-CoV-2 Ag (Rapid) Positive (Negative) H 07/26/22 22:40 SARS-CoV-2 Antigen (Rapid) Positive (Negative) H 07/26/22 22:4 0 EKG Data EKG 1: I personally reviewed and interpreted this EKG as follows: EKG interpretation date: 07/26/22 EKG interpretation time: 22:48 Interpretation: sinus tach hr [address] or t wave abnormalities qrs 98 qtc 392 Discharge Plan Discharge Patient Disposition: Home Clinical Impression: COVID-19 Condition: Stable Prescriptions: New albuterol sulfate 90 mcg/actuation HFA aerosol inhaler 2 inh INHALATION Q6H PRN (Reason: shortness of breath or wheezing) Qty: 8 0RF No Action warfarin 5 mg tablet 5 mg PO DAILY levothyroxine [Synthroid] 100 mcg tablet 100 mcg PO DAILY metformin 1,000 mg tablet 1,000 mg PO BID aspirin 81 mg tablet,delayed release (DR/EC) 81 mg PO DAILY Humulin 70/30 U-100 Insulin 100 unit/mL (70-30) suspension 60 unit SUBCUT BID Qty: 30 5RF simvastatin 40 mg tablet 40 mg PO DAILY Qty: 30 0RF Rx Instructions: Make follow-up for further refills dicyclomine 20 mg tablet 20 mg PO QID Qty: 15 1RF Rx Instructions: As needed for abdominal pain Zofran 4 mg tablet 4 mg PO Q6H PRN (Reason: nausea and vomiting) Qty: 10 2RF prednisone 20 mg tablet 20 mg PO DAILY Qty: 7 0RF Celebrex 100 mg capsule 100 mg PO BID Qty: 20 0RF methocarbamol 750 mg tablet 750 mg PO Q8H PRN (Reason: muscle pain) Qty: 20 0RF Discharge Orders: Discharge ED (Routine); Ordered 07/26/22 Ordered By: Henry Garcia Other Ambulatory Orders: DME: Oxygen (Order) Location: None Selected Ordered By: Henry Garcia Referrals: Patrick Nick MD [Primary Care Provider] - Discharge Diet: Advance as tolerated Discharge Activity: Resume usual activity Patient Instructions: COVID-19 (Coronavirus Disease 2019) (ED) Coding Level of Care Code ED Insolvency Practitioner for Sailajag Fwd Exam Comprehensive
[2022-07-26 23:19] LABS: SARS Covid-2 Antigen Positive (Negative)
[2022-07-27 00:49] VITALS: PULSE 102; RESP 19; O2SAT 92
== END 2022-07-27 00:50 | disposition home or self-care (01) ==
PROVIDERS: Nurse Practitioner Family; Emergency Provider Emergency Medicine; PCP Family Medicine
DX: U07.1 COVID-19 (principal)
CPT/HCPCS: 71045; 80053; 85025; 87426; 93005; 96372; 99285; J1100

== ENCOUNTER 2022-12-13 20:24 | Inpatient (IN) | payer MEDICARE, SELFPAY ==
[2022-12-13 20:25] VITALS: BP 120/66; PULSE 81; RESP 18; TEMP 36.1; O2SAT 98; BMI 29.7
--- NOTE | 2022-12-13 20:33 | ECG_ITS ---
[facility] Test Date: 2022-12-13 Pat Name: Guy Wiseman Department: Room: Gender: Male Superintendent Of Schools: : 1955 Requested By: Henry Garcia Order Number: [id number] Valeria MD: Franklin Nuno M.D. Measurements Intervals [place] Rate: 102 P: 18 [place]: 196 QRS: -37 QRSD: 76 T: 67 QT: 333 QTc: 434 Interpretive Statements SINUS TACHYCARDIA POSSIBLE LEFT ATRIAL ENLARGEMENT [-0.1mV P-WAVE IN V1/V2] LEFT AXIS DEVIATION [QRS AXIS < -30] NONSPECIFIC T-WAVE ABNORMALITY Compared to ECG 07/26/2022 22:48:20 T-wave abnormality now present Myocardial infarct finding no longer present Electronically Signed On 12-13-2022 21:44:20 EYE CARE PROFESSIONAL by Franklin Nuno M.D. [id number]
--- NOTE | 2022-12-13 20:36 | ED_ITS ---
HPI - Chest Pain General: Chief Complaint: Chest Pain Stated Complaint: Chest Pains Time Seen by Provider: 12/13/22 20:29 History of Present Illness: Mr. Wiseman is a 67-year-old gentleman with significant past medical history of hypertension, diabetes, thyroid disorder, pulmonary embolism on warfarin presenting to the emergency department due to chest pain and shortness of breath. He reports onset of symptoms gradual approximately 3 days ago and since that time has had intermittent dull pain in the left chest and substernal area. He also endorses mild shortness of breath and cough. He has had worsening lower extremity edema which has been ongoing for months. Intensity symptoms is moderate. Course is worsened. No other specific changes in health, exacerbating, or alleviating factors identified. Onset (ago): day(s) Timing of current episode: increasing Onset: during exertion Pain location: substernal and left chest Severity: moderate Quality: aching Relieving factors: nothing Exacerbating factors: nothing Associated symptoms: Reports dyspnea and other Review of Systems General: Reports: 10 or more systems reviewed and unremarkable except in HPI and below Resp: Reports: dyspnea PFSH ED PFSH: Medical History Chest pain Congestive heart failure COPD (chronic obstructive pulmonary disease) History of blood clots History of nonmelanoma skin cancer History of pulmonary embolism History of pulmonary embolism Hypertension Hypothalamic hypothyroidism Surgical History History of rotator cuff surgery Social History Smoking and tobacco status: current every day smoker Alcohol intake: never Physical Exam Const: COMMON NORMALS: alert GENERAL APPEARANCE: cooperative and well de veloped HENMT: COMMON NORMALS: normocephalic and atraumatic HEAD & SCALP: normocephalic and atraumatic Eye: COMMON NORMALS: conjunctivae normal CONJUNCTIVA: Yes conjunctivae normal SCLERA: sclerae normal Neck/C-Spine: COMMON NORMALS: supple GENERAL: Yes trachea midline Resp: COMMON NORMALS: clear to auscultation bilaterally EFFORT & INSPECTION: Yes able to speak in complete sentences AUSCULTATION: clear to auscultation bilaterally Cardio: COMMON NORMALS: regular rate and regular rhythm RATE: regular rate RHYTHM: regular rhythm GI: COMMON NORMALS: Soft to palpation PALPATION: Yes Soft to palpation and No Tenderness to palpation present (GI) Extremity: GENERAL: Yes normal exam except as noted and Yes edema Neuro: COMMON NORMALS: moves all extremities SENSORIUM/ORIENTATION: Yes alert and No Orientation impaired Psych: COMMON NORMALS: mental status grossly normal and Normal thought process present THOUGHT PROCESS: Normal thought process present Course Vital Signs: Vital signs: Vital Signs Temperature 97.5 F L 12/17/22 08:00 Pulse Rate 85 12/17/22 08:51 Respiratory Rate 16 12/17/22 08:51 Blood Pressure 163/88 12/17/22 08:00 Pulse Oximetry 95 12/17/22 08:51 Oxygen Delivery Me thod 12/17/22 08:51 Oxygen Flow Rate 2 12/16/22 07:57 MDM - Chest Pain Medical Decision Making 67-year-old gentleman presenting with chest pain and shortness of breath as well as lower extremity edema. Patient is mildly ill appearance and required supplemental oxygen. He is nontoxic. EKG notable for sinus tachycardia, left axis deviation, normal intervals, no STEMI. Hematologic panel similar to prior with no leukocytosis, normal hemoglobin and liver. Metabolic panel with mild noted creatinine, glucose is elevated without evidence of DKA. Negative range delta troponin at 2 hours. BNP is elevated. Chest x-ray with mild cardiomegaly, no lobar consolidation or pneumothorax. Patient treated with aspirin and DuoNeb. Given severity and progression of symptoms as well as chest pain and patient is not low risk by heart score patient is reasonable for inpatient management. Most likely likely cause of chest pain may be cardiac in nature, patient also has evidence of heart failure. The results of ED evaluation were discussed with the patient including plan for admission due to requirement for level of care not available if discharged to prevent significant worsening/deterioration. Patient agreeable with plan. Discussed with hospitalist service who was agreeable to admit patient. Medical Records I reviewed the patient's medical records. Lab Data I reviewed the patient's lab results. 12/13/22 20:45 12/13/22 20:45 Radiology Impressions Chest X-Ray 12/13/22 20:44 IMPRESSION: 1. Negative for infiltrate. 2. Mild cardiomegaly. Laboratory Results WBC 10.0 10^3/uL (4.0-10.0) 12/13/22 20:45 RBC 4.68 10^6/uL (4.1-5.3) 12/13/22 20:45 Hgb 14.4 g/dL (11.7-16.6) 12/13/22 20:45 Hct 45.3 % (42.0-52.0) 12/13/22 20:45 MCV 96.8 fl (80-94) H 12/13/22 20:45 MCH 30.8 pg (28.0-34.0) 12/13/22 20:45 MCHC 31.8 g/dL (30.0-36.0) 12/13/22 20:45 RDW 14.4 % (12.1-15.1) 12/13/22 20:45 Plt Count 215 10^3/cmm (130-400) 12/13/22 20:45 MPV 10.8 fL (7.4-10.4) H 12/13/22 20:45 Neut % (Auto) 63.6 % 12/13/22 20:45 Lymph % (Auto) 25.2 % 12/13/22 20:45 [place] % (Auto) 8.7 % 12/13/22 20:45 Eos % (Auto) 1.7 % 12/13/22 20:45 Baso % (Auto) 0.4 % 12/13/22 20:45 Neut # (Auto) 6.35 10^3/uL (1.8-7.7) 12/13/22 20:45 Lymph # (Auto) 2.5 10^3/uL (0.8-4.8) 12/13/22 20:45 [place] # (Auto) 0.9 10^3/uL (0.2-0.9) 12/13/22 20:45 Eos # (Auto) 0.2 10^3/uL (0.0-0.8) 12/13/22 20:45 Baso # (Auto) 0.0 10^3/uL (0.0-0.1) 12/13/22 20:45 Nucleated RBC % (auto) 0 % 12/13/22 20:45 Nucleated RBCs # 0.0 /100WBC 12/13/22 20:45 PT 20.70 SECONDS (12.1-14.9) H 12/13/22 20:45 INR 1.74 (0.8-1.2) H 12/13/22 20:45 APTT 35.3 SECONDS (23.9-36.7) 12/13/22 20:45 Sodium 138 mmol/L (136-145) 12/13/22 20:45 Potassium 4.3 mmol/L (3.5-5.1) 12/13/22 20:45 Chloride 102 mmol/L (98-107) 12/13/22 20:45 Carbon Dioxide 24 mmol/L (22-29) 12/13/22 20:45 Anion Gap 16.3 (5-19) 12/13/22 20:45 BUN 20 mg/dL (8-23) 12/13/22 20:45 Creatinine 1.3 mg/dL (0.7-1.2) H 12/13/22 20:45 GFR Calculation 54.9 mL/min (90-130) L 12/13/22 20:45 Glucose 340 mg/dL (65-115) H 12/13/22 20:45 Calculated Osmolality 302 mOsm/kg (285-295) H 12/13/22 20:45 Calcium 8.8 mg/dL (8.5-10.5) 12/13/22 20:45 Total Bilirubin 0.3 mg/dL (0.15-1.2) 12/13/22 20:45 AST 23 U/L (0-40) 12/13/22 20:45 ALT 11 U/L (0-41) 12/13/22 20:45 Alkaline Phosphatase 194 U/L (40-130) H 12/13/22 20:45 Troponin T Baseline 54 ng/L (0-15) H 12/13/22 20:45 NT-Pro-B Natriuret Pep 4641 pg/mL (0-125) H 12/13/22 20:45 Total Protein 6.1 g/dL (6.6-8.7) L 12/13/22 20:45 Albumin 3.2 g/dL (3.5-5.2) L 12/13/22 20:45 Globulin 2.9 g/dL (1.3-4.6) 12/13/22 20:45 Discharge Plan Discharge Patient Disposition: Placed in Observation Admit Provider: Kristy Spear Clinical Impression: Chest pain, Congestive heart failure Coding Level of Care Code ED Business Center Manager for Chg Fwd Exam Comprehensive
--- NOTE | 2022-12-13 20:44 | XRR_ITS ---
PROCEDURE INFORMATION: Exam: XR Chest Exam date and time: 12/13/2022 8:47 PM Age: 67 years old Clinical indication: Chest wall pain; Patient HX: HX of skin cancer removal on head; Additional info: Cp TECHNIQUE: Imaging protocol: Radiologic exam of the chest. Views: 1 view. COMPARISON: CR XR chest 2V* [id number] 11/07/2022 4:49 PM FINDINGS: Lungs: Unremarkable. No consolidation. Pleural spaces: Unremarkable. No pleural effusion. No pneumothorax. Heart/Mediastinum: Mild cardiomegaly. Bones/joints: Unremarkable. XR/XR chest 1V portable [id number] IMPRESSION: 1. Negative for infiltrate. 2. Mild cardiomegaly.
[2022-12-13] MEDS: aspirin 81 mg Chew Tablet 324 MG PO (20:54)
[2022-12-13 20:56] VITALS: BP 124/82; PULSE 102; RESP 18; O2SAT 94
[2022-12-13 21:12] LABS: Basophils % 0.4 %; Eosinophils # 0.2 10^3/uL (0.0-0.8); Eosinophils % 1.7 %; Hematocrit 45.3 % (42.0-52.0); Hemoglobin 14.4 g/dL (11.7-16.6); Lymphocytes # 2.5 10^3/uL (0.8-4.8); Lymphocytes % 25.2 %; Mean Corpuscular HGB Conc 31.8 g/dL (30.0-36.0); Mean Corpuscular Hemoglobin 30.8 pg (28.0-34.0); Mean Corpuscular Volume 96.8 fl (80-94); Mean Platelet Volume 10.8 fL (7.4-10.4); Monocytes # 0.9 10^3/uL (0.2-0.9); Monocytes % 8.7 %; Neutrophils # 6.35 10^3/uL (1.8-7.7); Neutrophils % 63.6 %; Nucleated Red Blood Cells % 0 %; Platelet Count 215 10^3/cmm (130-400); Red Blood Count 4.68 10^6/uL (4.1-5.3); Red Cell Distribution Width 14.4 % (12.1-15.1)
[2022-12-13 21:17] LABS: INR 1.74 (0.8-1.2)
[2022-12-13 21:18] LABS: Partial Thromboplastin Time 35.3 SECONDS (23.9-36.7)
[2022-12-13 21:20] VITALS: BP 167/93; PULSE 95; RESP 18; O2SAT 95
[2022-12-13 21:26] LABS: Troponin(5th) Baseline 54 ng/L (0-15)
[2022-12-13 21:36] LABS: Alanine Aminotransferase 11 U/L (0-41); Albumin Level 3.2 g/dL (3.5-5.2); Alkaline Phosphatase 194 U/L (40-130); Aspartate Amino Transferase 23 U/L (0-40); Blood Urea Nitrogen 20 mg/dL (8-23); Calcium 8.8 mg/dL (8.5-10.5); Carbon Dioxide 24 mmol/L (22-29); Chloride 102 mmol/L (98-107); Globulin 2.9 g/dL (1.3-4.6); Glomerular Filtration Rate 54.9 mL/min (90-130); Glucose 340 mg/dL (65-115); NT Pro B Type Natriuretic Pept 4641 pg/mL (0-125); Osmolality Calculated 302 mOsm/kg (285-295); Sodium 138 mmol/L (136-145); Total Bilirubin 0.3 mg/dL (0.15-1.2); Total Protein 6.1 g/dL (6.6-8.7)
[2022-12-13 21:43] LABS: Anion Gap 16.3 (5-19); Potassium 4.3 mmol/L (3.5-5.1)
[2022-12-13 22:25] VITALS: BP 131/60; PULSE 81; RESP 18; O2SAT 94
[2022-12-13 22:36] VITALS: BP 149/80; PULSE 95; RESP 22; TEMP 36.6; O2SAT 93
[2022-12-13 22:59] LABS: Troponin 5 2HR 49.02 ng/L (0-15)
[2022-12-13 23:10] VITALS: PULSE 97
[2022-12-13 23:13] LABS: Troponin 5 2HR Delta -4.98 ABS# (0-10)
[2022-12-13 23:14] LABS: Glucose Point of Care 330 mg/dL (70-110)
--- NOTE | 2022-12-13 23:18 | ECG_ITS ---
[facility] Test Date: 2022-12-13 Pat Name: Guy Wiseman Department: Room: 277 Gender: Male Dispatch Supervisor: : 1955 Requested By: Celestine Falcon Order Number: [id number] Valeria MD: Radha Abdi M.D. Measurements Intervals Justin Rate: 95 P: 54 SD: 233 QRS: -31 QRSD: 88 T: 69 QT: 368 QTc: 464 Interpretive Statements SINUS RHYTHM WITH FIRST DEGREE AV BLOCK POSSIBLE LEFT ATRIAL ENLARGEMENT [-0.1mV P-WAVE IN V1/V2] LEFT AXIS DEVIATION [QRS AXIS < -30] Compared to ECG 12/13/2022 20:33:26 First degree AV block now present Sinus tachycardia no longer present T-wave abnormality no longer present Electronically Signed On 12-14-2022 7:01:58 DOUBLE SURFACE OPERATOR by Radha Abdi M.D. [id number]
--- NOTE | 2022-12-13 23:25 | PC.NURSE ---
Pt referred to hospitalist for review of CBG results w/pt request for nighttime metformin and 70/30 insulin. Also referred for diet orders because pt is requesting water to drink. Awaiting orders.
[2022-12-14] VITALS (12 sets, daily range): BP systolic 118–161; BP diastolic 70–89; PULSE 68–95; RESP 16–23; TEMP 36.3–36.8; O2SAT 90–96
--- NOTE | 2022-12-14 00:03 | USCV_ITS ---
Guy Wiseman Age: 67 Gender: M : 1955 Exam Date: 12/14/2022 00:22 Ordering Phys: Kristy Spear MD Technologist: LASHA Exam Location: [facility] [place] Indication: clinical CHF. hx HTN, DM, hx pulmonary embolus 2003 BP: 149 / 80 HR: 93 Rhythm: Atrial fibrillation Technical Quality: Adequate MEASUREMENTS (Male / Female) Normal Values 2D ECHO LV Diastolic Diameter PLAX 3.6 cm 4.2 - 5.9 / 3.9 - 5.3 cm LV Systolic Diameter PLAX 2.5 cm IVS Diastolic Thickness 1.3 cm 0.6 - 1.0 / 0.6 - 0.9 cm IVS Systolic Thickness 1.5 cm LVPW Diastolic Thickness 1.3 cm 0.6 - 1.0 / 0.6 - 0.9 cm LVPW Systolic Thickness 1.7 cm LVOT Diameter 2.3 cm LV Ejection Fraction 2D Teich 60.0 % LV Ejection Fraction MOD 2C 51.1 % LV Ejection Fraction 2C AL 50.6 % LA Diameter 3.3 cm LA Width 4.0 cm LA Height 5.0 cm RA Width 5.5 cm RA Height 5.4 cm Aorta at Sinotubular Diameter 2.7 cm IVC Diameter 2.3 cm M-MODE Aortic Annulus Diameter 3.3 cm LA Ao Ratio MM 1.1 MV E Point Septal Separation 0.6 cm DOPPLER AV Peak Velocity 285.3 cm/s LVOT Peak Velocity 91.0 cm/s AV Area Cont Eq vti 1.2 cm squared AV Area Cont Eq pk 1.3 cm squared MV Area PHT 9.2 cm squared MV E' Velocity 85.0 cm/s Mitral E to MV E' Ratio 12.9 Mitral E to LV E' Lateral Ratio 12.4 Mitral E to LV E' Septal Ratio 13.5 TR Peak Velocity 417.7 cm/s TR Peak Gradient 69.8 mmHg TV Peak E Velocity 83.0 cm/s Right Atrial Pressure 5.0 mmHg Pulmonary Artery Systolic Pressu 74.8 mmHg PV Peak Velocity 131.0 cm/s RV Acceleration Time 0.1 s RV Ejection Time 0.3 s RV AcT/ET 0.4 FINDINGS Left Ventricle Normal left ventricular cavity size. Normal left ventricular systolic function. Left ventricular ejection fraction is estimated at 60 %. No regional wall motion abnormalities. Flattened septum in systole consistent with right ventricle pressure overload. Right Ventricle Dilated right ventricular size and mildly decreased systolic function. Right ventricular systolic pressure 74.8 mmHg. Right Atrium Mildly increased right atrial size. Left Atrium Mildly increased left atrial size. Mitral Valve Thickened mitral valve. Moderate mitral annular calcification. No mitral valve stenosis. Mild mitral valve regurgitation. Aortic Valve Moderately thickened and calcified aortic valve. Moderate aortic valve stenosis, mean gradient 16 mmHg, CHRIST 1.2 cm2. No aortic valve regurgitation. Tricuspid Valve Structurally normal tricuspid valve. No tricuspid valve stenosis. Moderate tricuspid valve regurgitation. Pulmonic Valve Structurally normal pulmonic valve. No pulmonary valve stenosis. Trace pulmonary valve regurgitation. Pericardium No pericardial effusion. Aorta Normal sized aortic root. IVC Dilated IVC with decraesed respiratory variation. CONCLUSIONS 1. Normal left ventricular cavity size and systolic function. Left ventricular ejection fraction is estimated at 60 %. No regional wall motion abnormalities. Flattened septum in systole consistent with right ventricle pressure overload. 2. Moderate aortic valve stenosis, mean gradient 16 mmHg, CHRIST 1.2 cm2. 3. Severe pulmonary hypertension with pulmonary artery pressure estimated at 75 mm Hg. 4. When compared to presvious study dated 03/09/2016, there is moderate aortic stenosis and severe pulmonary hypertension now. Radha Abdi MD (Electronically Signed) Final Date: 14 December 2022 12:25 S
--- NOTE | 2022-12-14 00:08 | PM.HP ---
Providers/Chief Complaint Admitting Physician: Kristy Spear MD Primary Care Provider: Patrick Nick MD Chief Complaint: Chest Pains History of Present Illness Guy Wiseman is a 67 year old male with PMH DM , last a1c 11, h/o PE several years ago for which he is on warfarin., p/w LE swelling over past 4-5 weeks along with dyspnea on exertion. At [facility] he has been waking up with what he describes ' panic attacks when at ~4am he wakes up feeling short of breath. c/o intermittent exertional chest pain over the last 4 days , vague location, pressure type sensation. He has anew 02 requirement of 2lpm cassy . Denies fever, chills, cough Review of Systems General: Reports: 10 or more systems reviewed and unremarkable except in HPI and below Const: Denies: fever(s), chills or body aches Eyes: Denies: change in vision, blurry vision or photophobia ENMT: Reports: hoarseness; Denies: throat pain, enlarged tonsils, odynophagia or nasal congestion Card: Denies: chest pain, palpitations, irregular heart rhythm, edema, swelling of feet/ankles, lightheadedness, pre-syncope, dyspnea on exertion or orthopnea Resp: Denies: dyspnea, productive cough, non-productive cough, wheezing, stridor, pain on inspiration, change in phlegm color, hemoptysis or chest congestion GI: Denies: abdominal pain, nausea, vomiting, hematemesis, coffee ground emesis, dysphagia, heartburn, diarrhea, constipation, GI cramping, change in stool character, hematochezia or melena : Denies: flank pain, dysuria, urinary frequency, urinary urgency, urinary hesitancy or hematuria Musc: Denies: neck pain, back pain, extremity pain, joint swelling, joint warmth or deformity Neuro: Denies: headache(s), numbness in extremities, weakness in extremities, sensory changes, difficulty walking, frequent falls, dizziness, vertigo, behavioral changes, Slurred speech present or seizure-like activity Psych: Denies: anxiety, depression, suicidal ideation or homicidal ideation Endo: Denies: polyuria, polydipsia, tired all the time, cold intolerance or hot flashes Rogelio/Lymph: Denies: easy bruising or easy bleeding Medications/Allergies Home Medications Medication Instructions Recorded Confirmed Last Taken Type aspirin 81 mg tablet,delayed 81 mg PO DAILY 03/23/21 12/13/22 12/13/22 08:00 History release insulin human U-100 NPH-regulr 60 unit (0.6 mL) SUBCUT BID #30 mL 03/23/21 12/13/22 12/13/22 08:00 Rx 70-30 mix 100 unit/mL subcutaneous susp (Humulin 70/30 U-100 Insulin) metformin 1,000 mg tablet 1,000 mg PO BID 03/23/21 12/13/22 12/13/22 08:00 History simvastatin 40 mg tablet 40 mg PO DAILY #30 tabs 03/23/21 12/13/22 12/13/22 08:00 Rx warfarin 5 mg tablet 5 mg PO DIRECTED 03/23/21 12/13/22 12/13/22 08:00 History albuterol sulfate 90 mcg/actuation 2 inh inhalation Q6H PRN shortness 07/26/22 12/13/22 12/13/22 08:00 Rx aerosol inhaler of breath or wheezing #8 grams levothyroxine 1 tab PO DAILY 12/13/22 12/13/22 12/13/22 08:00 History warfarin 7.5 mg tablet 7.5 mg PO DIRECTED 12/13/22 12/13/22 12/11/22 08:00 History Allergies Allergy/AdvReac Type Severity Reaction Status Date / Time No Known Allergies Allergy Verified 10/23/22 09:14 PFSH Acute PFSH: Medical History COPD (chronic obstructive pulmonary disease) History of blood clots History of nonmelanoma skin cancer History of pulmonary embolism Hypertension Hypothalamic hypothyroidism Surgical History History of rotator cuff surgery Social History Smoking and tobacco status: current every day smoker Alcohol intake: never Vitals/I&O/Wt Last Vital Signs Temp 97.9 F 12/13/22 22:36 Pulse 97 12/13/22 23:10 Resp 22 H 12/13/22 22:36 BP 149/80 12/13/22 22:36 Pulse Ox 93 12/13/22 22:36 O2 Del Method 12/13/22 22:45 Weight last 48 hrs Weight 78.471 kg Physical Exam Narrative: General: No acute distress, AO x3 HEENT: PERRLA, pupils bilaterally equal and reactive, pallors not present Chest: Normal vesicular breath sounds, no added sounds, equal good air entry bilaterally CVS: S1-S2 regular, no murmurs, no tachycardia, no gallops, no rubs Abdomen: Soft, nontender, no organomegaly, bowel sounds present Neuro: Le pitting edema B/L, change of stasis dermatitis B/L LE Data 12/13/22 20:45 12/13/22 20:45 A&P Assessment and plan (1) Chest pain: EKg withotu acute st-t wave changes Trop elevated in oscar 40s range, serial deltas not concerning for ACS Likely that currently elevated troponins as a result of decompensated CHF no past h/o CAD continue ASA 81 mg po daily may need stress test once volume optimized. 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 subtherpeutic today low probability of PE while on a/c however given subtherapeutic INR will check LE duplex and a screening D dimer. Avoising CTA for now given GT with cr 1.3 Plan Past h/o sleep apnea which may be contributing to night time awakening. HE used to wear a CPAP years ago but doesn't currently Attestations Medical Necessity Statement*: anticipate > 2 midnight admission for newly diagnosed CHF, iv diuresis, echo , evalution of chest pain Coding Level of Care Code Acute Code for Chg Fwd Diagnoses Chest pain R07.9 Congestive heart failure I50.9 History of pulmonary embolism Z86.711
[2022-12-14 00:47] LABS: SARS Covid-2 Antigen negative (Negative)
[2022-12-14] MEDS: FUROsemide 10 mg/mL SDV 2mL 20 MG IVP (01:07)
--- NOTE | 2022-12-14 02:21 | ECG_ITS ---
[facility] Test Date: 2022-12-14 Pat Name: Guy Wiseman Department: Room: 277 Gender: Male Information Technology Director: Qiana : 1955 Requested By: Celestine Falcon Order Number: [id number] Valeria MD: Radha Abdi M.D. Measurements Intervals [place] Rate: 94 P: 37 MI: 239 QRS: -23 QRSD: 83 T: 73 QT: 363 QTc: 454 Interpretive Statements SINUS RHYTHM WITH SINUS ARRHYTHMIA WITH FIRST DEGREE AV BLOCK BORDERLINE LEFT AXIS DEVIATION [QRS AXIS < -20] Compared to ECG 12/13/2022 23:18:35 No significant changes Electronically Signed On 12-14-2022 7:00:52 HEALTH OCCUPATIONS INSTRUCTOR by Radha Abdi M.D. [id number]
[2022-12-14 02:48] LABS: Troponin 5 6HR 50.54 ng/L (0-15)
[2022-12-14 02:52] LABS: Troponin 5 6HR Delta -3.46 ng/L (0-12)
--- NOTE | 2022-12-14 03:55 | PC.NURSE ---
Pt c/o anxiety and dry throat. O2 sat 87% on RA. Pt states he does this at home, and denies sleep apnea or use of cpap. O2 applied at 2 l/m via n/c, RT notified and is now at bedside. Physician notified, awaiting orders.
[2022-12-14 05:29] LABS: D Dimer 2.26 ug/mIFEU (0-0.59)
--- NOTE | 2022-12-14 07:38 | USCV_ITS ---
Guy Wiseman Age: 67 Gender: M : 1955 Exam Date: 12/14/2022 08:31 Ordering Phys: Kristy Spear MD Technologist: Alberto Fernandez Exam Location: [facility] [place]_ Indication: hx of pe blilat pedal edema PROCEDURES: The venous duplex Doppler examination of both lower extremities was performed in the standard fashion. The following venous structures were evaluated: common femoral vein, profunda vein, proximal portion of the greater saphenous vein, superficial femoral vein, and the popliteal vein. In addition, the posterior tibial and peroneal trunk were evaluated. FINDINGS: Normal 2-D Doppler and augmentation and compressibility throughout the lower extremity venous structures. Additional imaging through the proximal calf veins also reveals no thrombus. Limited evaluation of the greater saphenous vein is patent with no thrombus.. CONCLUSIONS No evidence of right lower extremity DVT. No evidence of left lower extremity DVT. Demian Stallworth MD (Electronically Signed) Final Date: 14 December 2022 17:15 S
[2022-12-14] MEDS: insulin lispro 100 unit/1 mL SUBCUT ×3 (08:39→21:01)
[2022-12-14] MEDS: pantoprazole DR 40 mg Tablet PO (08:40)
--- NOTE | 2022-12-14 09:44 | PM.PN ---
Subjective Subjective: Patient is sitting at the bedside Currently on 0.5 L nasal cannula Waiting on echo report Pleasant and cooperative No active chest pain or shortness of breath Patient is complaining of nonproductive cough Vitals/I&O/Wt Last Vital Signs Temp 97.8 F 12/14/22 07:39 Pulse 91 12/14/22 08:00 Resp 16 12/14/22 08:00 BP 161/87 12/14/22 07:39 Pulse Ox 96 12/14/22 07:45 O2 Del Method 12/14/22 07:45 O2 Flow Rate 2 12/14/22 08:00 12/13/22 12/14/22 12/14/22 22:59 06:59 14:59 Intake Total 0 / 0 240 / 240 Output Total 0 / 0 Balance 0 / 0 240 / 240 Weight last 48 hrs Weight 81.647 kg Weight 78.471 kg Physical Exam Narrative: Fluid overload 3+ edema of legs Venous stasis dermatitis Pleasant cooperative Ill, PERRLA Currently on 5 L nasal cannula Soft abdomen Edema of legs noted Pleasant and cooperative Significant other at the bedside Data 12/13/22 20:45 12/13/22 20:45 A&P Assessment and plan (1) History of pulmonary embolism: (2) Chest pain: (3) Congestive heart failure: (4) History of nonmelanoma skin cancer: Plan New onset CHF Diastolic CHF exacerbation previous EF 57% However looking at his clinical presentation and venous dermatitis it seems to be chronic, will follow-up with echo to know his EF Continue IV Lasix every 12 hours however I would increase the dose to 40 mg Clinical signs of fluid overload present Prerenal GT cardiorenal Anticipating provement with diuresis Chest pain, D-dimer 2.2, will hold off on requesting CTA for now creatinine still 1.3 INR 1.7 No extremity DVT not seen on venous Doppler We will follow-up with echo Wean oxygen to room air Continue diuresis Cardiac diet Check for sleep apnea overnight Attestations Medical Necessity Statement*: Continue medical management Time Spent in Patient Care: 40 Coding Level of Care Code Acute Code for Chg Fwd Diagnoses History of pulmonary embolism Z86.711 Chest pain R07.9 Congestive heart failure I50.9 History of nonmelanoma skin cancer Z85.828
[2022-12-14] MEDS: guaiFENesin-dextromethorphan UDC 10 mL 5 ML PO (11:29)
[2022-12-14] MEDS: FUROsemide 10 mg/mL SDV 2mL 40 MG IVP ×2 (11:30→23:50)
[2022-12-14 11:45] LABS: Glucose Point of Care 276 mg/dL (70-110)
[2022-12-14] MEDS: ALPRAZolam 0.5 mg Tablet 0.25 MG PO (11:51)
[2022-12-14] MEDS: nicotine 21 mg Patch 1 PATCH TRANSDERMA (16:02)
[2022-12-14 16:31] LABS: Glucose Point of Care 139 mg/dL (70-110)
[2022-12-14 20:54] LABS: Glucose Point of Care 241 mg/dL (70-110)
[2022-12-15] VITALS (13 sets, daily range): BP systolic 129–164; BP diastolic 68–87; PULSE 74–94; RESP 14–23; TEMP 36.2–36.8; O2SAT 81–98
[2022-12-15 05:06] LABS: Basophils # 0.1 10^3/uL (0.0-0.1); Basophils % 0.6 %; Eosinophils # 0.2 10^3/uL (0.0-0.8); Eosinophils % 2.1 %; Hematocrit 40.7 % (42.0-52.0); Hemoglobin 13.2 g/dL (11.7-16.6); Lymphocytes # 2.6 10^3/uL (0.8-4.8); Lymphocytes % 29.7 %; Mean Corpuscular HGB Conc 32.4 g/dL (30.0-36.0); Mean Corpuscular Hemoglobin 30.3 pg (28.0-34.0); Mean Corpuscular Volume 93.6 fl (80-94); Mean Platelet Volume 10.3 fL (7.4-10.4); Monocytes # 0.9 10^3/uL (0.2-0.9); Monocytes % 10.5 %; Neutrophils # 5.04 10^3/uL (1.8-7.7); Neutrophils % 56.8 %; Nucleated Red Blood Cells % 0 %; Platelet Count 209 10^3/cmm (130-400); Red Blood Count 4.35 10^6/uL (4.1-5.3); Red Cell Distribution Width 13.8 % (12.1-15.1); White Blood Count 8.9 10^3/uL (4.0-10.0)
[2022-12-15 05:26] LABS: INR 1.73 (0.8-1.2)
[2022-12-15 05:45] LABS: Alanine Aminotransferase 9 U/L (0-41); Albumin Level 2.9 g/dL (3.5-5.2); Alkaline Phosphatase 164 U/L (40-130); Anion Gap 14.7 (5-19); Aspartate Amino Transferase 21 U/L (0-40); Blood Urea Nitrogen 22 mg/dL (8-23); Calcium 8.6 mg/dL (8.5-10.5); Carbon Dioxide 26 mmol/L (22-29); Chloride 100 mmol/L (98-107); Globulin 3.3 g/dL (1.3-4.6); Glomerular Filtration Rate 60.2 mL/min (90-130); Glucose 235 mg/dL (65-115); Osmolality Calculated 295 mOsm/kg (285-295); Potassium 3.7 mmol/L (3.5-5.1); Sodium 137 mmol/L (136-145); Total Bilirubin 0.4 mg/dL (0.15-1.2); Total Protein 6.2 g/dL (6.6-8.7)
--- NOTE | 2022-12-15 06:41 | P.PN_ITS ---
Subjective Subjective: Patient is a negative fluid balance Will touch base with cardiology Septal abnormality noted due to right ventricular strain Patient was feeling anxious yesterday, has been requiring intermittent oxygen however his oxygen saturation remains above 92% on room air Received anxiolytics as well Vitals/I&O/Wt Last Vital Signs Temp 98.2 F 12/15/22 04:00 Pulse 82 12/15/22 05:52 Resp 22 H 12/15/22 04:00 BP 157/86 12/15/22 04:00 Pulse Ox 95 12/15/22 04:00 O2 Del Method 12/15/22 03:05 O2 Flow Rate 2 12/14/22 08:00 12/14/22 12/14/22 12/15/22 14:59 22:59 06:59 Intake Total 480 / 480 480 / 960 1700 / 2660 Output Total 500 / 500 2850 / 3350 Balance 480 / 480 -20 / 460 -1150 / -690 Weight last 48 hrs Weight 78.29 kg Weight 81.647 kg Weight 78.471 kg Physical Exam Narrative: Clinical signs of fluid overload Venous stasis dermatitis Crackles positive Anxious appearing S1, S2 Abdomen soft 3+ edema of legs Nonfocal neuro exam Data 12/15/22 04:42 12/15/22 04:42 A&P Assessment and plan (1) History of pulmonary embolism: (2) Chest pain: (3) Congestive heart failure: (4) Pulmonary hypertension: Plan Acute diastolic CHF exacerbation Likely related to underlying untreated sleep apnea patient has been noncompliant, severe pulmonary hypertension Septal abnormality noted, will touch base with cardiology Patient most likely will need right and left heart cath He will need pulmonary hypertension referral at the time of discharge He is not requiring oxygen at this point Negative fluid balance, increase the dose of diuretics, Cardiology consultation today Cardiorenal GT improving with diuresis D-dimer is also high Will request CTA if there is no plan for coronary angiogram Cardiac diet Full code DVT prophylaxis on board Discussed with Dr. Shearer who has recommended evaluation at [facility] for right and left heart cath with nitrous oxide evaluation patient is agreeable to go to [facility] once he is more euvolemic He is happy with his progress, he is agreeable with the plan to go to [facility] when she is discharged from this hospital His family hypertension could be multifactorial underlying PE and sleep apnea Attestations Medical Necessity Statement*: Continue hospitalization Time Spent in Patient Care: 30 Coding Level of Care Code Acute Code for Chg Fwd Diagnoses History of pulmonary embolism Z86.711 Chest pain R07.9 Congestive heart failure I50.9 Pulmonary hypertension I27.20
[2022-12-15 06:43] LABS: Glucose Point of Care 205 mg/dL (70-110)
[2022-12-15 06:43] LABS: Glucose Point of Care 213 mg/dL (70-110)
[2022-12-15] MEDS: insulin lispro 100 unit/1 mL SUBCUT ×4 (08:20→21:55)
[2022-12-15] MEDS: FUROsemide 10 mg/mL SDV 10mL 60 MG IVP ×2 (08:21→16:56)
[2022-12-15] MEDS: pantoprazole DR 40 mg Tablet PO (08:21)
[2022-12-15] MEDS: nicotine 21 mg Patch 1 PATCH TRANSDERMA (08:21)
[2022-12-15 10:51] LABS: Glucose Point of Care 335 mg/dL (70-110)
[2022-12-15 12:44] LABS: Glucose Point of Care 210 mg/dL (70-110)
[2022-12-15] MEDS: warfarin 5 mg Tablet PO (16:53)
[2022-12-15 17:02] LABS: Glucose Point of Care 163 mg/dL (70-110)
--- NOTE | 2022-12-15 19:53 | PC.NURSE ---
Patient A&Ox4, VSS at this time. Patient complained of 1/10 pain. 2+ pitting edema noted in bilateral lower extremities. Lungs coarse, intermittent cough present. Patient showed nurse his diabetic foot ulcer , small blackened area noted on left lateral foot, open to air. Education done to measure I&Os and to use urinal to measure . Patient resting in bed, locked in lowest position with two side rails up, call light and bedside table within reach, and no further complaints at this time.
[2022-12-15 21:42] LABS: Glucose Point of Care 167 mg/dL (70-110)
[2022-12-16] VITALS (8 sets, daily range): BP systolic 105–156; BP diastolic 67–88; PULSE 80–97; RESP 16–20; TEMP 36–37.2; O2SAT 91–95; BMI 28.5
[2022-12-16 06:01] LABS: Basophils # 0.1 10^3/uL (0.0-0.1); Basophils % 0.5 %; Eosinophils # 0.2 10^3/uL (0.0-0.8); Eosinophils % 2.2 %; Hematocrit 41.1 % (42.0-52.0); Hemoglobin 13.4 g/dL (11.7-16.6); Lymphocytes # 2.2 10^3/uL (0.8-4.8); Lymphocytes % 23.9 %; Mean Corpuscular HGB Conc 32.6 g/dL (30.0-36.0); Mean Corpuscular Hemoglobin 30.9 pg (28.0-34.0); Mean Corpuscular Volume 94.7 fl (80-94); Mean Platelet Volume 10.6 fL (7.4-10.4); Monocytes # 0.9 10^3/uL (0.2-0.9); Monocytes % 9.5 %; Neutrophils # 5.91 10^3/uL (1.8-7.7); Neutrophils % 63.5 %; Nucleated Red Blood Cells % 0 %; Platelet Count 207 10^3/cmm (130-400); Red Blood Count 4.34 10^6/uL (4.1-5.3); White Blood Count 9.3 10^3/uL (4.0-10.0)
[2022-12-16 06:13] LABS: INR 1.78 (0.8-1.2)
[2022-12-16 06:20] LABS: Anion Gap 12.6 (5-19); Blood Urea Nitrogen 29 mg/dL (8-23); Calcium 8.7 mg/dL (8.5-10.5); Carbon Dioxide 27 mmol/L (22-29); Chloride 102 mmol/L (98-107); Glomerular Filtration Rate 54.9 mL/min (90-130); Glucose 305 mg/dL (65-115); Osmolality Calculated 303 mOsm/kg (285-295); Potassium 3.6 mmol/L (3.5-5.1); Sodium 138 mmol/L (136-145)
[2022-12-16] MEDS: FUROsemide 10 mg/mL SDV 10mL 60 MG IVP ×2 (06:54→16:30)
[2022-12-16 06:58] LABS: Glucose Point of Care 282 mg/dL (70-110)
[2022-12-16] MEDS: pantoprazole DR 40 mg Tablet PO (08:46)
[2022-12-16] MEDS: nicotine 21 mg Patch 1 PATCH TRANSDERMA (08:46)
[2022-12-16] MEDS: insulin lispro 100 unit/1 mL SUBCUT ×4 (08:46→21:31)
--- NOTE | 2022-12-16 10:51 | PM.PN ---
Subjective Subjective: Patient has diuresed aggressively Still has lower extremity edema Orthopnea PND has improved He is ambulating without any discomfort Plan to discharge by tomorrow Family meeting conducted Vitals/I&O/Wt Last Vital Signs Temp 97.5 F L 12/16/22 07:57 Pulse 81 12/16/22 08:00 Resp 16 12/16/22 08:00 BP 153/81 12/16/22 07:57 Pulse Ox 94 12/16/22 08:00 O2 Del Method 12/16/22 08:00 O2 Flow Rate 2 12/16/22 07:57 12/15/22 12/16/22 12/16/22 22:59 06:59 14:59 Intake Total 720 / 1200 960 / 2160 960 / 960 Output Total 2200 / 2800 575 / 3375 1425 / 1425 Balance -1480 / -1600 385 / -1215 -465 / -465 Weight last 48 hrs Weight 75.466 kg Weight 78.29 kg Physical Exam Narrative: Awake and alert Skin wrinkling noted currently on room air Sitting in the chair Low 70 edema 3+ Venous stasis dermatitis Significant other at the bedside Hemodynamic stable No audible stridor or wheezing Abdomen soft Appropriate mood and affect Data 12/16/22 05:17 12/16/22 05:17 Micro: Microbiology 12/14/22 20:00 Gram Stain - Final Sputum - Expectorated Sputum Sputum Culture - Preliminary Gram Negative Rods A&P Assessment and plan (1) Pulmonary hypertension: (2) History of pulmonary embolism: (3) Congestive heart failure: Plan Severe pulmonary hypertension related to right-sided heart failure Continue aggressive diuresis Patient will need pulmonary hypertension referral at the time of discharge with Tomorrow Continue IV diuresis for now Symptoms improving with diuresis Creatinine stable at 1.3, cardiorenal GT Hypoxia improved doing well on room air Patient has untreated sleep apnea and history of PE Continue anticoagulation Family meeting conducted today Attestations Medical Necessity Statement*: Discharge tomorrow Time Spent in Patient Care: 30mins Coding Level of Care Code Acute Code for Chg Fwd Diagnoses Pulmonary hypertension I27.20 History of pulmonary embolism Z86.711 Congestive heart failure I50.9
[2022-12-16 11:42] LABS: Glucose Point of Care 317 mg/dL (70-110)
[2022-12-16] MEDS: potassium chloride ER 20 mEq Tablet 40 MEQ PO (11:57)
--- NOTE | 2022-12-16 12:18 | PC.SOCIAL ---
Pg 2 IMM Explained to pt Pg 2 IMM. No questions voiced. Provided pt a copy. Initialed, dated & timed a copy & placed in chart.
[2022-12-16] MEDS: warfarin 5 mg Tablet PO (16:29)
[2022-12-16 17:22] LABS: Glucose Point of Care 167 mg/dL (70-110)
--- NOTE | 2022-12-16 20:50 | PC.NURSE ---
Patient A&Ox4, VSS at this time. Anterior lungs auscultated clear bilaterally. Murmur noted on heart sounds. 3+ pitting edema present in bilateral lower extremities. No current complaints of pain or discomfort, although patient reported a sudden and sharp pain in left lower quadrant earlier this morning that lasted only a few seconds when he was up to his bedside chair. 750 dumped from urinal, patient's cup refilled with 480ml fluid at this time. Patient currently resting in bed, both side rails up with call light and bedside table within reach. Patient stated no further needs at this time.
[2022-12-16 21:26] LABS: Glucose Point of Care 269 mg/dL (70-110)
[2022-12-17] VITALS: BP 125/75; PULSE 82; RESP 17; TEMP 36.6; O2SAT 96
[2022-12-17 04:00] VITALS: BP 146/80; PULSE 82; RESP 17; TEMP 36.5; O2SAT 97
[2022-12-17 05:22] VITALS: BMI 28.4
[2022-12-17 05:53] LABS: INR 1.65 (0.8-1.2)
[2022-12-17] MEDS: FUROsemide 10 mg/mL SDV 10mL 60 MG IVP (05:57)
[2022-12-17 07:28] LABS: Glucose Point of Care 245 mg/dL (70-110)
[2022-12-17] MEDS: nicotine 21 mg Patch 1 PATCH TRANSDERMA (07:46)
[2022-12-17] MEDS: pantoprazole DR 40 mg Tablet PO (07:46)
[2022-12-17] MEDS: insulin lispro 100 unit/1 mL SUBCUT (07:47)
[2022-12-17 08:00] VITALS: BP 163/88; PULSE 85; RESP 18; TEMP 36.4; O2SAT 92
[2022-12-17 08:51] VITALS: PULSE 85; RESP 16; O2SAT 95
--- NOTE | 2022-12-17 10:40 | P.DS_ITS ---
Discharge Providers Date of Admission: 12/13/22 22:01 Date of Discharge: December 17, 2022 Attending Provider at Admission: Kristy Spear MD Attending Provider at Discharge: Satnam Nieto MD Primary Care Provider: Patrick Nick MD Diagnoses at Discharge Discharge Diagnosis (1) Pulmonary hypertension: Status: Acute (2) History of pulmonary embolism: Status: Acute (3) Congestive heart failure: Status: Acute Reason for Visit Reason for Visit: Chest Pains Hospital Course Hospital Course 67-year male who was admitted for management of congestive heart failure, he was diagnosed with diastolic CHF exacerbation related to untreated sleep apnea, chronic history of PE, patient has agreed to follow-up pulmonary hypertension clinic at [facility], he was diuresed aggressively with IV Bumex in the hospital, his creatinine remained stable. He never showed any signs of contraction alkalosis. Patient has refused to use CPAP in the past, -4 L balance Patient received Bumex 1 mg daily along with Lasix at home EF is preserved Did not require oxygen during hospitalization we were able to wean him off to room air No signs of DVT Physical Exam Narrative: Signs of fluid overload improving Currently on room air Pleasant and cooperative S1, S2 variable Abdomen soft Discharge Data Studies Completed and Pending Completed Studies During Hospitalization Category Date Time Status XR chest 1V portable [id number] Stat Exams 12/13/22 20:44 [place] [id number] Routine Ultrasound 12/14/22 07:38 Completed CV. echo complete* [id number] Routine Ultrasound 12/14/22 00:03 Completed Pending at discharge Category Date Time Status Sputum Culture and Gram Stain Routine Lab 12/14/22 20:00 Results Radiology Impressions Chest X-Ray 12/13/22 20:44 IMPRESSION: 1. Negative for infiltrate. 2. Mild cardiomegaly. Laboratory Results WBC 9.3 10^3/uL (4.0-10.0) 12/16/22 05:17 RBC 4.34 10^6/uL (4.1-5.3) 12/16/22 05:17 Hgb 13.4 g/dL (11.7-16.6) 12/16/22 05:17 Hct 41.1 % (42.0-52.0) L 12/16/22 05:17 MCV 94.7 fl (80-94) H 12/16/22 05:17 MCH 30.9 pg (28.0-34.0) 12/16/22 05:17 MCHC 32.6 g/dL (30.0-36.0) 12/16/22 05:17 RDW 14.0 % (12.1-15.1) 12/16/22 05:17 Plt Count 207 10^3/cmm (130-400) 12/16/22 05:17 MPV 10.6 fL (7.4-10.4) H 12/16/22 05:17 Neut % (Auto) 63.5 % 12/16/22 05:17 Lymph % (Auto) 23.9 % 12/16/22 05:17 Butts % (Auto) 9.5 % 12/16/22 05:17 Eos % (Auto) 2.2 % 12/16/22 05:17 Baso % (Auto) 0.5 % 12/16/22 05:17 Neut # (Auto) 5.91 10^3/uL (1.8-7.7) 12/16/22 05:17 Lymph # (Auto) 2.2 10^3/uL (0.8-4.8) 12/16/22 05:17 Butts # (Auto) 0.9 10^3/uL (0.2-0.9) 12/16/22 05:17 Eos # (Auto) 0.2 10^3/uL (0.0-0.8) 12/16/22 05:17 Baso # (Auto) 0.1 10^3/uL (0.0-0.1) 12/16/22 05:17 Nucleated RBC % (auto) 0 % 12/16/22 05:17 Nucleated RBCs # 0.0 /100WBC 12/16/22 05:17 PT 19.90 SECONDS (12.1-14.9) H 12/17/22 04:59 INR 1.65 (0.8-1.2) H 12/17/22 04:59 APTT 35.3 SECONDS (23.9-36.7) 12/13/22 20:45 D-Dimer 2.26 ug/mIFEU (0-0.59) H 12/14/22 02:19 Sodium 138 mmol/L (136-145) 12/16/22 05:17 Potassium 3.6 mmol/L (3.5-5.1) 12/16/22 05:17 Chloride 102 mmol/L (98-107) 12/16/22 05:17 Carbon Dioxide 27 mmol/L (22-29) 12/16/22 05:17 Anion Gap 12.6 (5-19) 12/16/22 05:17 BUN 29 mg/dL (8-23) H 12/16/22 05:17 Creatinine 1.3 mg/dL (0.7-1.2) H 12/16/22 05:17 GFR Calculation 54.9 mL/min (90-130) L 12/16/22 05:17 Glucose 305 mg/dL (65-115) H 12/16/22 05:17 POC Glucose 245 mg/dL (70-110) H 12/17/22 07:11 Calculated Osmolality 303 mOsm/kg (285-295) H 12/16/22 05:17 Calcium 8.7 mg/dL (8.5-10.5) 12/16/22 05:17 Total Bilirubin 0.4 mg/dL (0.15-1.2) 12/15/22 04:42 AST 21 U/L (0-40) 12/15/22 04:42 ALT 9 U/L (0-41) 12/15/22 04:42 Alkaline Phosphatase 164 U/L (40-130) H 12/15/22 04:42 Troponin T Baseline 54 ng/L (0-15) H 12/13/22 20:45 Troponin T 120 Minute 49.02 ng/L (0-15) H 12/13/22 22:26 Delta Troponin T -4.98 ABS# (0-10) L 12/13/22 22:26 Troponin T Hi Sens 6Hr 50.54 ng/L (0-15) H 12/14/22 02:19 Troponin T Hi Sens 6Hr Delta -3.46 ng/L (0-12) L 12/14/22 02:19 NT-Pro-B Natriuret Pep 4641 pg/mL (0-125) H 12/13/22 20:45 Total Protein 6.2 g/dL (6.6-8.7) L 12/15/22 04:42 Albumin 2.9 g/dL (3.5-5.2) L 12/15/22 04:42 Globulin 3.3 g/dL (1.3-4.6) 12/15/22 04:42 SARS-CoV-2 Ag (Rapid) negative (Negative) 12/14/22 00:26 Vitals Last Vital Signs Temp 97.5 F L 12/17/22 08:00 Pulse 85 12/17/22 08:51 Resp 16 12/17/22 08:51 BP 163/88 12/17/22 08:00 Pulse Ox 95 12/17/22 08:51 O2 Del Method 12/17/22 08:51 O2 Flow Rate 2 12/16/22 07:57 Discharge Plan Discharge Patient Disposition: Home Condition: Stable Prescriptions: New bumetanide 1 mg tablet 1 mg PO DAILY Qty: 60 1RF potassium chloride 10 mEq tablet extended release 10 meq PO DAILY PRN (Reason: only take with bumex) Qty: 60 0RF Continued warfarin 5 mg tablet 5 mg PO DIRECTED Rx Instructions: 5mg dosing ,,sun,sun, sun aspirin 81 mg tablet,delayed release (DR/EC) 81 mg PO DAILY Humulin 70/30 U-100 Insulin 100 unit/mL (70-30) suspension 60 unit SUBCUT BID Qty: 30 5RF simvastatin 40 mg tablet 40 mg PO DAILY Qty: 30 0RF Rx Instructions: Make follow-up for further refills albuterol sulfate 90 mcg/actuation HFA aerosol inhaler 2 inh INHALATION Q6H PRN (Reason: shortness of breath or wheezing) Qty: 8 0RF levothyroxine 112 mcg tablet 1 tab PO DAILY warfarin 7.5 mg Tablet 7.5 mg PO DIRECTED Rx Instructions: 7.5mg Sunday and Discontinued metformin 1,000 mg tablet 1,000 mg PO BID Discharge Orders: Discharge Order (Routine); Ordered 12/17/22 Ordered By: Satnam Nieto Referrals: Patrick Nick MD [Primary Care Provider] - 2 weeks Audrey Burger MD [Referring] - 7-10 days (NEED to establish care for pulmonary hypertension at [facility]) Patient Instructions: Opioid Safety Discharge Attestations Time Spent in Discharge Care*: less than 30 min Quality Metrics Clinical Quality Measures [ No reported AMI, CVA or VTE this stay] Coding Level of Care Code Acute Chg FW DC note Diagnoses Pulmonary hypertension I27.20 History of pulmonary embolism Z86.711 Congestive heart failure I50.9
[2022-12-17 11:27] LABS: Glucose Point of Care 383 mg/dL (70-110)
--- NOTE | 2022-12-18 14:58 | W.PM.EVENTAC ---
Event Note Event Note: Sputum culture positive for multiple organisms. Directed case mgmt to call in Levaquin 750mg a day for 7 days. and I personally called patient's PCP who is going to address Coumadin dosing during this period.
--- NOTE | 2022-12-18 15:11 | PC.SOCIAL ---
Received a call for a critical lab for a sputum culture. Called Dr. Cadena and new orders received for Levaquin 750mg PO Daily x7 days and patient will need an INR 2 days from start. Called patient and he is ok w/ DIANA calling in script to [facility] and updated that he would need to f/up w/ Dr. Nick in 2 days for lab and he will need to call for this appt. Dr. Cadena is going to reach out to Dr. Nick. DIANA called in prescription to [facility] in [place].
== END 2022-12-17 11:42 | disposition home or self-care (01) | DRG 291 ==
LOC: ER 22:01 → MEDSURG 22:26
PROVIDERS: Admitting Provider Student in an Organized Health Care Education/Training Program; Emergency Provider Emergency Medicine; PCP Family Medicine; Visit Provider Internal Medicine
DX: I11.0 Hypertensive heart disease with heart failure (principal); I50.33 Acute on chronic diastolic (congestive) heart failure; N17.9 Acute kidney failure, unspecified; I27.20 Pulmonary hypertension, unspecified; Z86.711 Personal history of pulmonary embolism; G47.30 Sleep apnea, unspecified; Z79.01 Long term (current) use of anticoagulants; Z79.82 Long term (current) use of aspirin; Z79.4 Long term (current) use of insulin; Z79.51 Long term (current) use of inhaled steroids; J44.9 Chronic obstructive pulmonary disease, unspecified; Z85.828 Personal history of other malignant neoplasm of skin; E03.9 Hypothyroidism, unspecified; F17.210 Nicotine dependence, cigarettes, uncomplicated; Z91.199 Patient's noncompliance with other medical treatment and regimen due to unspecified reason
CPT/HCPCS: 36415; 36416; 71045; 80048; 80053; 82962; 83880; 84484; 85025; 85378; 85610; 85730; 87070; 87077; 87186; 87205; 87426; 93005; 93306; 93970; 96372; 99285; J1815; J1940

== ENCOUNTER 2023-03-07 13:37 | Emergency (ER) | payer MEDICARE, SELFPAY ==
[2023-03-07 13:56] VITALS: BP 112/63; PULSE 86; TEMP 36.5; O2SAT 95; BMI 29.7
--- NOTE | 2023-03-07 15:11 | W.ED.BACK ---
HPI - Back Pain/Injury General: Chief Complaint: Back Pain/Injury Stated Complaint: Lower back pains Time Seen by Provider: 03/07/23 14:35 History of Present Illness: Patient is a 67-year-old male who comes to the ED with back pain. Pain is located in the right side, mid back region. He rates his pain currently a 9 out of 10. He states that symptoms started approximately 4 days ago. Denies any injury, trauma or heavy lifting to cause symptoms. Any movement of torso or right arm causes worsening pain. Pain is localized to right side mid back. Denies any pain radiating down his legs. Denies any UTI symptoms or fevers. Associated symptoms: Deny abdominal pain, chills, dysuria, fatigue, fever(s), hematuria, nausea or vomiting Review of Systems Const: Denies: fever(s), chills or fatigue Eyes: Denies: change in vision or eye discomfort ENMT: Denies: throat pain, odynophagia, nasal discharge or nasal congestion Card: Denies: chest pain, palpitations, edema, swelling of feet/ankles, dyspnea on exertion or orthopnea Resp: Denies: dyspnea, productive cough or non-productive cough GI: Denies: abdominal pain, nausea, vomiting, diarrhea, constipation or hematochezia : Denies: flank pain, difficulty urinating, dysuria or hematuria Musc: Reports: back pain (Right-sided thoracic back) and limited range of motion (Thoracic back); Denies: neck pain or extremity swelling Skin/Breast: Denies: rash or new lesions Neuro: Denies: headache(s), numbness in extremities or weakness in extremities PFS ED PFSH: Medical History Chest pain Congestive heart failure COPD (chronic obstructive pulmonary disease) History of blood clots History of nonmelanoma skin cancer History of pulmonary embolism History of pulmonary embolism Hypertension Hypothalamic hypothyroidism Surgical History History of rotator cuff surgery Social History Smoking and tobacco status: current every day smoker Alcohol intake: never Physical Exam Const: COMMON NORMALS: no acute distress, patient oriented x3 and healthy appearing HENMT: COMMON NORMALS: normocephalic HEAD & SCALP: normocephalic MOUTH: Normal oral and palatal mucosa present THROAT: posterior oropharynx normal and uvula midline Neck/C-Spine: COMMON NORMALS: supple GENERAL: Yes normal visual inspection Resp: COMMON NORMALS: normal respiratory effort, No retractions, No use of accessory muscles and clear to auscultation bilaterally AUSCULTATION: clear to auscultation bilaterally Cardio: COMMON NORMALS: regular rate, regular rhythm, S1 normal heart sound present, S2 normal heart sound present, No gallops present (Cardio), No clicks present (Cardio), No murmurs present (Cardio) and Peripheral pulses 2+ throughout RATE: regular rate RHYTHM: regular rhythm HEART SOUNDS: S1 normal heart sound present and S2 normal heart sound present PERIPHERAL PULSES: Peripheral pulses 2+ throughout GI: COMMON NORMALS: Normal to inspection, nondistended, normoactive bowel sounds present, Soft to palpation, non-tender and no masses PALPATION: Yes Soft to palpation : COMMON NORMALS: Yes no CVA tenderness BLADDER/KIDNEY EXAM: Yes no CVA tenderness Back/Pelvis: COMMON NORMALS: no CVA tenderness THORACIC SPINE/UPPER BACK: Yes pain with ROM, No thoracic spinal tenderness and Yes paraspinal muscle tenderness Thoracic paraspinal muscle tenderness: right Right thoracic paraspinal muscle tenderness: T6, T7 and T8 Extremity: COMMON NORMALS: normal to inspection Neuro: COMMON NORMALS: patient oriented x3 GAIT: Yes Normal gait present Skin: GENERAL SKIN EXAM: dry skin Course Vital Signs: Vital signs: Vital Signs Temperature 97.7 F 03/07/23 13:56 Pulse Rate 86 03/07/23 13:56 Respiratory Rate 13 03/07/23 15:15 Blood Pressure 112/63 03/07/23 13:56 Pulse Oximetry 95 03/07/23 13:56 Oxygen Delivery Me thod Room Air 03/07/23 13:56 MDM - Back Pain/Injury Medical Decision Making Patient is a 67-year-old male who comes to the ED with back pain. Pain is located in the right side, mid back region. He rates his pain currently a 9 out of 10. He states that symptoms started approximately 4 days ago. Denies any injury, trauma or heavy lifting to cause symptoms. Any movement of torso or right arm causes worsening pain. Pain is localized to right side mid back. Denies any pain radiating down his legs. Denies any UTI symptoms or fevers. Vitals are stable. Exam shows some pain with range of motion in thoracic spine and no thoracic spinal tenderness but patient does have some right paraspinal muscle tenderness at T6-T8. No CVA tenderness noted. Rest of exam is benign. Patient was given dose of pain med muscle relaxer here in the ED and was stable for discharge home. Diagnosed with right-sided thoracic back pain and told to follow-up with his PCP in the next week for reevaluation. Patient understood and agreed with plan.. Discharge Plan Discharge Patient Disposition: Home Clinical Impression: Right-sided thoracic back pain Qualifiers: Chronicity: acute Qualified Code(s): M54.6 - Pain in thoracic spine Condition: Stable Prescriptions: No Action warfarin 5 mg tablet 5 mg PO DIRECTED Rx Instructions: 5mg dosing ,,sun,sun, sun aspirin 81 mg tablet,delayed release (DR/EC) 81 mg PO DAILY Humulin 70/30 U-100 Insulin 100 unit/mL (70-30) suspension 60 unit SUBCUT BID Qty: 30 5RF simvastatin 40 mg tablet 40 mg PO DAILY Qty: 30 0RF Rx Instructions: Make follow-up for further refills albuterol sulfate 90 mcg/actuation HFA aerosol inhaler 2 inh INHALATION Q6H PRN (Reason: shortness of breath or wheezing) Qty: 8 0RF levothyroxine 112 mcg tablet 1 tab PO DAILY warfarin 7.5 mg Tablet 7.5 mg PO DIRECTED Rx Instructions: 7.5mg Sunday and bumetanide 1 mg tablet 1 mg PO DAILY Qty: 60 1RF potassium chloride 10 mEq tablet extended release 10 meq PO DAILY PRN (Reason: only take with bumex) Qty: 60 0RF Discharge Orders: Discharge ED (Routine); Ordered 03/07/23 Ordered By: Seb Brizuela Referrals: Patrick Nick MD [Primary Care Provider] - Discharge Diet: Regular Discharge Activity: Increase activity as tolerated Patient Instructions: Back Pain (ED), Opioid Safety Activity Restrictions/Additional Instructions: Follow-up with medical provider as directed in 3 to 5 days for reevaluation. Take medications as prescribed. Apply cold pack on sore area of back 10 to 15 minutes at a time multiple times throughout the day. Stretch back muscles daily. Limit lifting to under 15 pounds until symptoms have improved. Return to the ER or your medical provider if condition worsens. Please read and understand discharge instructions. Thank you for choosing [facility] for your healthcare needs today. Please realize this is an emergency room and that we are providing you with a medical screening exam and this may not be complete and all inclusive of all the testing and or work up that you may need to determine your ailment or severity of your illness. It is very important that you follow up as instructed or that you return to the Emergency Department should you have concerns or if your condition changes or worsens in any way. Coding Level of Care Code ED Underwriting Support Manager for José Cade
[2023-03-07] MEDS: cyclobenzaprine 10 mg Tablet PO (15:14)
[2023-03-07 15:15] VITALS: RESP 13
[2023-03-07] MEDS: oxyCODONE-APAP 5-325 mg Tablet 1 TAB PO (15:15)
== END 2023-03-07 15:49 | disposition home or self-care (01) ==
PROVIDERS: Emergency Provider Physician Assistant; PCP Family Medicine
DX: M54.6 Pain in thoracic spine (principal); Z79.01 Long term (current) use of anticoagulants; Z79.82 Long term (current) use of aspirin; Z79.4 Long term (current) use of insulin; I11.0 Hypertensive heart disease with heart failure; I50.9 Heart failure, unspecified; J44.9 Chronic obstructive pulmonary disease, unspecified; F17.210 Nicotine dependence, cigarettes, uncomplicated
CPT/HCPCS: 99283

== ENCOUNTER 2023-05-11 09:49 | Emergency (ER) | payer MEDICARE, SELFPAY ==
[2023-05-11 10:03] VITALS: BP 94/61; PULSE 91; RESP 18; TEMP 36.6; O2SAT 96; BMI 29.7
--- NOTE | 2023-05-11 10:20 | XRR_ITS ---
PROCEDURE INFORMATION: Exam: XR Left Foot Exam date and time: 05/11/2023 10:34 AM Age: 68 years old Clinical indication: Condition or disease; Other: Wound; Additional info: Diabetic foot wound TECHNIQUE: Imaging protocol: Radiologic exam of the left foot. Views: 3 or more views. COMPARISON: No relevant prior studies available. FINDINGS: Bones/joints: Negative for acute bony abnormality. Soft tissues: Soft tissue edema is seen near the proximal 5th digit XR/XR foot LT min 3V* [id number] IMPRESSION: 1. No acute bone abnormality. 2. Soft tissue edema near the 5th metatarsal
--- NOTE | 2023-05-11 10:21 | ED_ITS ---
Documented by User: Renata Esquivel PA-C 05/11/23 11:05 HPI - Recheck/Abnormal Lab/Rx General: Chief Complaint: Recheck/Abnormal Lab/Rx Stated Complaint: Vomitting incontinence Time Seen by Provider: 05/11/23 10:11 Source: patient Mode of arrival: ambulatory Limitations: no limitations History of Present Illness: 68-year-old male with a history of CKD, type 2 diabetes that is uncontrolled, pulmonary hypertension, and heart valve issues presents to the ER today for a follow-up on an abnormal lab. Patient went to specialist at [facility] several days ago for scheduled testing prior to valve replacement surgery. When patient went up there he was having issues with vomiting and incontinence. Patient was sent to the ER and had different testing done there given the acute issues he was having. Patient was contacted yesterday by [facility] and told that his blood cultures came back positive for group B strep. Patient was started on Augmentin and has had 2 doses so far. Patient was also told his INR was elevated so he has been off of Coumadin now for 2 days. He was told to hold it for couple days and follow-up for retest. Patient reports he is feeling better. His nausea and vomiting has improved. The incontinence has also improved. Patient reports today's only concern is that his left foot is very tender and red. The family member with the patient reports they have never noticed this before. Patient has a large wound to the lateral aspect of the left foot. She reports she had not noticed that before. He did have a callus but never this large. The redness in the foot has started spreading across the top of the foot and is very sore and tender to walk on. Patient is an uncontrolled diabetic and was recently restarted back on his insulin and his blood sugars have been improving. Pt does have a referral to Dr. Mendoza regarding the diabetic foot wound. Review of Systems General: Reports: 10 or more systems reviewed and unremarkable except in HPI and below PFSH ED PFSH: Medical History Chest pain Congestive heart failure COPD (chronic obstructive pulmonary disease) History of blood clots History of nonmelanoma skin cancer History of pulmonary embolism History of pulmonary embolism Hypertension Hypothalamic hypothyroidism Surgical History History of rotator cuff surgery Social History Smoking and tobacco status: current every day smoker Alcohol intake: never Substance/Drug Use: never Physical Exam Const: COMMON NORMALS: no acute distress, average body habitus, patient oriented x3, no limitations, healthy appearing, alert and well nourished Eye: COMMON NORMALS: conjunctivae normal CONJUNCTIVA: Yes conjunctivae normal Neck/C-Spine: COMMON NORMALS: full ROM and no lymphadenopathy Resp: COMMON NORMALS: normal respiratory effort, No retractions and clear to auscultation bilaterally AUSCULTATION: clear to auscultation bilaterally Cardio: COMMON NORMALS: regular rate, regular rhythm and No murmurs present (Cardio) RATE: regular rate RHYTHM: regular rhythm GI: COMMON NORMALS: Normal to inspection, nondistended, normoactive bowel sounds present, Soft to palpation and non-tender PALPATION: Yes Soft to palpation Extremity: NARRATIVE EXTREMITY EXAM: Patient is noted to have a fluctuant wound to the lateral aspect of the left foot at the base of the pinky toe. This is not open and appears to be a blood blister. There is erythema across the dorsal aspect of that foot extending from that wound. This is also very tender to touch. There is mild swelling also noted. Neuro: COMMON NORMALS: patient oriented x3 SENSORIUM/ORIENTATION: Yes alert Psych: COMMON NORMALS: mental status grossly normal and cooperative Skin: NARRATIVE SKIN EXAM: see extremity exam Course ED course: Patient presents to the ER for abnormal labs. Patient was contacted by [facility] yesterday regarding positive blood cultures for group B strep. Patient was started on Augmentin and has taken 2 doses so far. He did not feel it coming yesterday so he comes in today. Today patient has a large wound on the foot which is getting more tender and red. He is a known diabetic that was uncontrolled up until recently. Patient's symptoms he was having several days ago of nausea, vomiting, and incontinence have improved. He needs a recheck of his INR today as he was told to hold Coumadin 2 days ago and recheck it. Maximo hyatt denies any fevers at this time. He is currently being worked up by a specialist at [facility] for a heart valve replacement. We will check lab work today given this foot wound. We will also check an INR. At this point blood cultures would not necessarily be recommended as patient has already started antibiotics. We will get an x-ray of the left foot to make sure there is no bone involvement of the infection at this time. Vital Signs: Vital signs: Vital Signs Temperature 97.8 F 05/11/23 11:42 Pulse Rate 91 05/11/23 11:42 Respiratory Rate 18 05/11/23 11:42 Blood Pressure 114/73 05/11/23 11:42 Pulse Oximetry 91 05/11/23 11:42 Oxygen Delivery Me thod Room Air 05/11/23 10:03 MDM - Recheck/Abnormal Lab/Rx Medical Decision Making X-ray does not indicate any type of osteomyelitis based on imaging. Patient's white count is slightly elevated today. Labs otherwise have improved since he was in [facility] in the week. There patient's creatinine was 2.4, today it is 1.7. All other labs remain relatively stable. We are going to go ahead and start patient on clindamycin in addition to the Augmentin to cover for MRSA given the diabetic foot wound. We will also place a case management consult for wound care at this time. Wound was opened in the ER and a wound culture was obtained. We discussed wound care at home including offloading of that area to prevent worsening. Patient should continue monitoring his diabetes and taking diabetic medications. Blood sugar is pretty good in the ER and has been running pretty good at home since being back on medications. Patient has a referral into Dr. Mendoza and we will also send a message to case management regarding that to get patient in as soon as possible. Patient needs to restart his Coumadin as his INR has come down to 2.1 today. I would recommend follow-up in 5 to 7 days with PCP to recheck that after he restarts his regular dose. Previous to these infections and patient not feeling well, patient had been well controlled on his current dose of Coumadin. Patient otherwise is feeling okay today. For any new or worsening symptoms patient should return to the ER. Patient and family verbalized understanding and are in agreement with the treatment plan. Lab Data 05/11/23 10:14 05/11/23 10:14 Radiology Impressions Foot X-Ray 05/11/23 10:20 IMPRESSION: 1. No acute bone abnormality. 2. Soft tissue edema near the 5th metatarsal Laboratory Results WBC 12.1 10^3/uL (4.0-10.0) H 05/11/23 10:14 RBC 4.12 10^6/uL (4.1-5.3) 05/11/23 10:14 Hgb 12.5 g/dL (11.7-16.6) 05/11/23 10:14 Hct 38.6 % (42.0-52.0) L 05/11/23 10:14 MCV 93.7 fl (80-94) 05/11/23 10:14 MCH 30.3 pg (28.0-34.0) 05/11/23 10:14 MCHC 32.4 g/dL (30.0-36.0) 05/11/23 10:14 RDW 13.6 % (12.1-15.1) 05/11/23 10:14 Plt Count 122 10^3/cmm (130-400) L 05/11/23 10:14 MPV 10.6 fL (7.4-10.4) H 05/11/23 10:14 Neut % (Auto) 67.4 % 05/11/23 10:14 Lymph % (Auto) 16.6 % 05/11/23 10:14 [place] % (Auto) 13.9 % 05/11/23 10:14 Eos % (Auto) 1.1 % 05/11/23 10:14 Baso % (Auto) 0.5 % 05/11/23 10:14 Neut # (Auto) 8.17 10^3/uL (1.8-7.7) H 05/11/23 10:14 Lymph # (Auto) 2.0 10^3/uL (0.8-4.8) 05/11/23 10:14 [place] # (Auto) 1.7 10^3/uL (0.2-0.9) H 05/11/23 10:14 Eos # (Auto) 0.1 10^3/uL (0.0-0.8) 05/11/23 10:14 Baso # (Auto) 0.1 10^3/uL (0.0-0.1) 05/11/23 10:14 Nucleated RBC % (auto) 0 % 05/11/23 10:14 Nucleated RBCs # 0.0 /100WBC 05/11/23 10:14 PT 24.40 SECONDS (12.1-14.9) H 05/11/23 10:14 INR 2.11 (0.8-1.2) H 05/11/23 10:14 Sodium 131 mmol/L (136-145) L 05/11/23 10:14 Potassium 3.6 mmol/L (3.5-5.1) 05/11/23 10:14 Chloride 99 mmol/L (98-107) 05/11/23 10:14 Carbon Dioxide 20 mmol/L (22-29) L 05/11/23 10:14 Anion Gap 15.6 (5-19) 05/11/23 10:14 BUN 35 mg/dL (8-23) H 05/11/23 10:14 Creatinine 1.7 mg/dL (0.7-1.2) H 05/11/23 10:14 GFR Calculation 40.2 mL/min (90-130) L 05/11/23 10:14 Glucose 158 mg/dL (65-115) H 05/11/23 10:14 Calculated Osmolality 283 mOsm/kg (285-295) L 05/11/23 10:14 Calcium 8.4 mg/dL (8.5-10.5) L 05/11/23 10:14 Total Bilirubin 0.5 mg/dL (0.15-1.2) 05/11/23 10:14 AST 32 U/L (0-40) 05/11/23 10:14 ALT 17 U/L (0-41) 05/11/23 10:14 Alkaline Phosphatase 190 U/L (40-130) H 05/11/23 10:14 Total Protein 6.3 g/dL (6.6-8.7) L 05/11/23 10:14 Albumin 2.9 g/dL (3.5-5.2) L 05/11/23 10:14 Globulin 3.4 g/dL (1.3-4.6) 05/11/23 10:14 Critical Care Time Critical Care Time: Critical Care Time: No Discharge Plan Discharge Patient Disposition: Home Clinical Impression: Encounter for monitoring Coumadin therapy Diabetic ulcer of foot associated with diabetes mellitus due to underlying condition, limited to breakdown of skin Qualifiers: Diabetic foot ulcer location: other Laterality: left Qualified Code(s): E08.621 - Diabetes mellitus due to underlying condition with foot ulcer Condition: Stable Prescriptions: New clindamycin HCl 300 mg capsule 300 mg PO Q6H 10 Days Qty: 40 0RF No Action warfarin 5 mg tablet 5 mg PO DIRECTED Rx Instructions: 5mg dosing tu,we,fri,sat, sun aspirin 81 mg tablet,delayed release (DR/EC) 81 mg PO DAILY Humulin 70/30 U-100 Insulin 100 unit/mL (70-30) suspension 60 unit SUBCUT BID Qty: 30 5RF simvastatin 40 mg tablet 40 mg PO DAILY Qty: 30 0RF Rx Instructions: Make follow-up for further refills albuterol sulfate 90 mcg/actuation HFA aerosol inhaler 2 inh INHALATION Q6H PRN (Reason: shortness of breath or wheezing) Qty: 8 0RF levothyroxine 112 mcg tablet 1 tab PO DAILY warfarin 7.5 mg Tablet 7.5 mg PO DIRECTED Rx Instructions: 7.5mg Sunday and bumetanide 1 mg tablet 1 mg PO DAILY Qty: 60 1RF potassium chloride 10 mEq tablet extended release 10 meq PO DAILY PRN (Reason: only take with bumex) Qty: 60 0RF Discharge Orders: Discharge ED (Routine); Ordered 05/11/23 Ordered By: Renata Esquivel Referrals: Patrick Nick MD [Primary Care Provider] - Discharge Diet: Diabetic Discharge Activity: Increase activity as tolerated Patient Instructions: Opioid Safety, Pain Management Activity Restrictions/Additional Instructions: Continue Augmentin as previously prescribed. Take clindamycin as prescribed today. Soak foot in warm Epsom salts twice daily. Change dressing 1-2 times daily. Follow-up with wound care and Dr. Mendoza as discussed. New monitoring blood sugars and taking diabetic medications. Dress the wound as discussed by offloading that area. Restart Coumadin at previous dose. Follow-up with PCP in 1 week for recheck of that. Return to the ER with new or worsening symptoms. Coding Level of Care Code ED Auto Specialty Services Manager for José Fwd Documented by User: Andrea Pak DO 05/11/23 12:21 HPI - Recheck/Abnormal Lab/Rx General: Chief Complaint: Recheck/Abnormal Lab/Rx Stated Complaint: Vomitting incontinence Time Seen by Provider: 05/11/23 10:11 PFS ED PFSH: Medical History Chest pain Congestive heart failure COPD (chronic obstructive pulmonary disease) History of blood clots History of nonmelanoma skin cancer History of pulmonary embolism History of pulmonary embolism Hypertension Hypothalamic hypothyroidism Surgical History History of rotator cuff surgery Social History Smoking and tobacco status: current every day smoker Alcohol intake: never Substance/Drug Use: never Course Vital Signs: Vital signs: Vital Signs Temperature 97.8 F 05/11/23 11:42 Pulse Rate 91 05/11/23 11:42 Respiratory Rate 18 05/11/23 11:42 Blood Pressure 114/73 05/11/23 11:42 Pulse Oximetry 91 05/11/23 11:42 Oxygen Delivery Me thod Room Air 05/11/23 10:03 MDM - Recheck/Abnormal Lab/Rx Medical Decision Making X-ray does not indicate any type of osteomyelitis based on imaging. Patient's w jorge l count is slightly elevated today. Labs otherwise have improved since he was in [facility] in the week. There patient's creatinine was 2.4, today it is 1.7. All other labs remain relatively stable. We are going to go ahead and start patient on clindamycin in addition to the Augmentin to cover for MRSA given the diabetic foot wound. We will also place a case management consult for wound care at this time. Wound was opened in the ER and a wound culture was obtained. We discussed wound care at home including offloading of that area to prevent worsening. Patient should continue monitoring his diabetes and taking diabetic medications. Blood sugar is pretty good in the ER and has been running pretty good at home since being back on medications. Patient has a referral into Dr. Mendoza and we will also send a message to case management regarding that to get patient in as soon as possible. Patient needs to restart his Coumadin as his INR has come down to 2.1 today. I would recommend follow-up in 5 to 7 days with PCP to recheck that after he restarts his regular dose. Previous to these infections and patient not feeling well, patient had been well controlled on his current dose of Coumadin. Patient otherwise is feeling okay today. For any new or worsening symptoms patient should return to the ER. Patient and family verbalized understanding and are in agreement with the treatment plan. Chart reviewed and patient discussed with midlevel. Agree with assessment and plan. Lab Data 05/11/23 10:14 05/11/23 10:14 Radiology Impressions Foot X-Ray 05/11/23 10:20 IMPRESSION: 1. No acute bone abnormality. 2. Soft tissue edema near the 5th metatarsal Laboratory Results WBC 12.1 10^3/uL (4.0-10.0) H 05/11/23 10:14 RBC 4.12 10^6/uL (4.1-5.3) 05/11/23 10:14 Hgb 12.5 g/dL (11.7-16.6) 05/11/23 10:14 Hct 38.6 % (42.0-52.0) L 05/11/23 10:14 MCV 93.7 fl (80-94) 05/11/23 10:14 MCH 30.3 pg (28.0-34.0) 05/11/23 10:14 MCHC 32.4 g/dL (30.0-36.0) 05/11/23 10:14 RDW 13.6 % (12.1-15.1) 05/11/23 10:14 Plt Count 122 10^3/cmm (130-400) L 05/11/23 10:14 MPV 10.6 fL (7.4-10.4) H 05/11/23 10:14 Neut % (Auto) 67.4 % 05/11/23 10:14 Lymph % (Auto) 16.6 % 05/11/23 10:14 [place] % (Auto) 13.9 % 05/11/23 10:14 Eos % (Auto) 1.1 % 05/11/23 10:14 Baso % (Auto) 0.5 % 05/11/23 10:14 Neut # (Auto) 8.17 10^3/uL (1.8-7.7) H 05/11/23 10:14 Lymph # (Auto) 2.0 10^3/uL (0.8-4.8) 05/11/23 10:14 [place] # (Auto) 1.7 10^3/uL (0.2-0.9) H 05/11/23 10:14 Eos # (Auto) 0.1 10^3/uL (0.0-0.8) 05/11/23 10:14 Baso # (Auto) 0.1 10^3/uL (0.0-0.1) 05/11/23 10:14 Nucleated RBC % (auto) 0 % 05/11/23 10:14 Nucleated RBCs # 0.0 /100WBC 05/11/23 10:14 PT 24.40 SECONDS (12.1-14.9) H 05/11/23 10:14 INR 2.11 (0.8-1.2) H 05/11/23 10:14 Sodium 131 mmol/L (136-145) L 05/11/23 10:14 Potassium 3.6 mmol/L (3.5-5.1) 05/11/23 10:14 Chloride 99 mmol/L (98-107) 05/11/23 10:14 Carbon Dioxide 20 mmol/L (22-29) L 05/11/23 10:14 Anion Gap 15.6 (5-19) 05/11/23 10:14 BUN 35 mg/dL (8-23) H 05/11/23 10:14 Creatinine 1.7 mg/dL (0.7-1.2) H 05/11/23 10:14 GFR Calculation 40.2 mL/min (90-130) L 05/11/23 10:14 Glucose 158 mg/dL (65-115) H 05/11/23 10:14 Calculated Osmolality 283 mOsm/kg (285-295) L 05/11/23 10:14 Calcium 8.4 mg/dL (8.5-10.5) L 05/11/23 10:14 Total Bilirubin 0.5 mg/dL (0.15-1.2) 05/11/23 10:14 AST 32 U/L (0-40) 05/11/23 10:14 ALT 17 U/L (0-41) 05/11/23 10:14 Alkaline Phosphatase 190 U/L (40-130) H 05/11/23 10:14 Total Protein 6.3 g/dL (6.6-8.7) L 05/11/23 10:14 Albumin 2.9 g/dL (3.5-5.2) L 05/11/23 10:14 Globulin 3.4 g/dL (1.3-4.6) 05/11/23 10:14 Discharge Plan Discharge Patient Disposition: Home Clinical Impression: Encounter for monitoring Coumadin therapy Diabetic ulcer of foot associated with diabetes mellitus due to underlying condition, limited to breakdown of skin Qualifiers: Diabetic foot ulcer location: other Laterality: left Qualified Code(s): E08.621 - Diabetes mellitus due to underlying condition with foot ulcer Condition: Stable Prescriptions: New clindamycin HCl 300 mg capsule 300 mg PO Q6H 10 Days Qty: 40 0RF No Action warfarin 5 mg tablet 5 mg PO DIRECTED Rx Instructions: 5mg dosing ,,sun,sun, sun aspirin 81 mg tablet,delayed release (DR/EC) 81 mg PO DAILY Humulin 70/30 U-100 Insulin 100 unit/mL (70-30) suspension 60 unit SUBCUT BID Qty: 30 5RF simvastatin 40 mg tablet 40 mg PO DAILY Qty: 30 0RF Rx Instructions: Make follow-up for further refills albuterol sulfate 90 mcg/actuation HFA aerosol inhaler 2 inh INHALATION Q6H PRN (Reason: shortness of breath or wheezing) Qty: 8 0RF levothyroxine 112 mcg tablet 1 tab PO DAILY warfarin 7.5 mg Tablet 7.5 mg PO DIRECTED Rx Instructions: 7.5mg Sunday and bumetanide 1 mg tablet 1 mg PO DAILY Qty: 60 1RF potassium chloride 10 mEq tablet extended release 10 meq PO DAILY PRN (Reason: only take with bumex) Qty: 60 0RF Discharge Orders: Discharge ED (Routine); Ordered 05/11/23 Ordered By: Renata Esquivel Referrals: Patrick Nick MD [Primary Care Provider] - Discharge Diet: Diabetic Discharge Activity: Increase activity as tolerated Patient Instructions: Opioid Safety, Pain Management Activity Restrictions/Additional Instructions: Continue Augmentin as previously prescribed. Take clindamycin as prescribed today. Soak foot in warm Epsom salts twice daily. Change dressing 1-2 times daily. Follow-up with wound care and Dr. Mendoza as discussed. New monitoring blood sugars and taking diabetic medications. Dress the wound as discussed by offloading that area. Restart Coumadin at previous dose. Follow-up with PCP in 1 week for recheck of that. Return to the ER with new or worsening symptoms. Coding Level of Care Code ED [employer] Specialty Services Manager for José Cade
[2023-05-11 10:23] LABS: Basophils # 0.1 10^3/uL (0.0-0.1); Basophils % 0.5 %; Eosinophils # 0.1 10^3/uL (0.0-0.8); Eosinophils % 1.1 %; Hematocrit 38.6 % (42.0-52.0); Hemoglobin 12.5 g/dL (11.7-16.6); Lymphocytes % 16.6 %; Mean Corpuscular HGB Conc 32.4 g/dL (30.0-36.0); Mean Corpuscular Hemoglobin 30.3 pg (28.0-34.0); Mean Corpuscular Volume 93.7 fl (80-94); Mean Platelet Volume 10.6 fL (7.4-10.4); Monocytes # 1.7 10^3/uL (0.2-0.9); Monocytes % 13.9 %; Neutrophils # 8.17 10^3/uL (1.8-7.7); Neutrophils % 67.4 %; Nucleated Red Blood Cells % 0 %; Platelet Count 122 10^3/cmm (130-400); Red Blood Count 4.12 10^6/uL (4.1-5.3); Red Cell Distribution Width 13.6 % (12.1-15.1); White Blood Count 12.1 10^3/uL (4.0-10.0)
[2023-05-11 10:37] LABS: INR 2.11 (0.8-1.2)
[2023-05-11 10:42] LABS: Alanine Aminotransferase 17 U/L (0-41); Albumin Level 2.9 g/dL (3.5-5.2); Alkaline Phosphatase 190 U/L (40-130); Anion Gap 15.6 (5-19); Aspartate Amino Transferase 32 U/L (0-40); Blood Urea Nitrogen 35 mg/dL (8-23); Calcium 8.4 mg/dL (8.5-10.5); Carbon Dioxide 20 mmol/L (22-29); Chloride 99 mmol/L (98-107); Globulin 3.4 g/dL (1.3-4.6); Glomerular Filtration Rate 40.2 mL/min (90-130); Glucose 158 mg/dL (65-115); Osmolality Calculated 283 mOsm/kg (285-295); Potassium 3.6 mmol/L (3.5-5.1); Sodium 131 mmol/L (136-145); Total Bilirubin 0.5 mg/dL (0.15-1.2); Total Protein 6.3 g/dL (6.6-8.7)
[2023-05-11 11:42] VITALS: BP 114/73; PULSE 91; RESP 18; TEMP 36.6; O2SAT 91
--- NOTE | 2023-05-12 10:52 | DCPLANNER ---
Addendum entered by Melanie Marlow 05/22/23 11:12: Patient had a follow up appointment scheduled with ortho - patient did attend appointment. Original Note: group manager had message to schedule a follow up appointment for patient with podiatry, Dr. Mendoza. group manager sent patients information to the front office staff at podiatry. Patients information will be printed and reviewed. Clinic will call patient with appointment information.
--- NOTE | 2023-05-12 10:57 | DCPLANNER ---
Addendum entered by Melanie Marlow 05/22/23 11:08: Patient had a follow up appointment scheduled with Wound Care - patient did attend appointment. Original Note: horse show manager had message to schedule a follow up appointment for patient with Wound Care. horse show manager sent patients information to the front office staff at Wound Care. Patients information will be printed and reviewed. Clinic will call patient with appointment information.
== END 2023-05-11 11:45 | disposition home or self-care (01) ==
PROVIDERS: Emergency Provider Physician Assistant; PCP Family Medicine
DX: E11.621 Type 2 diabetes mellitus with foot ulcer (principal); Z79.4 Long term (current) use of insulin; Z79.01 Long term (current) use of anticoagulants
CPT/HCPCS: 36415; 73630; 80053; 85025; 85610; 87070; 87077; 87186; 99284

== ENCOUNTER → 2023-05-15 07:47 | Outpatient (BNVA) | payer MEDICARE, SELFPAY | PROVIDERS: PCP Family Medicine; Visit Provider Podiatrist Foot & Ankle Surgery | DX: E11.621 Type 2 diabetes mellitus with foot ulcer (principal); Z79.4 Long term (current) use of insulin; I73.9 Peripheral vascular disease, unspecified; L97.523 Non-pressure chronic ulcer of other part of left foot with necrosis of muscle; E11.42 Type 2 diabetes mellitus with diabetic polyneuropathy | CPT/HCPCS: 11043; 97760; 99204; L4361 ==

== ENCOUNTER 2023-05-15 14:19 | Outpatient (CLI) | payer MEDICARE, SELFPAY | END 2023-05-15 14:20 | disposition home or self-care (01) | LOC: SPT 14:20 | PROVIDERS: PCP Family Medicine; Visit Provider Podiatrist Foot & Ankle Surgery | DX: E08.621 Diabetes mellitus due to underlying condition with foot ulcer (principal); L97.501 Non-pressure chronic ulcer of other part of unspecified foot limited to breakdown of skin; I73.9 Peripheral vascular disease, unspecified; L97.523 Non-pressure chronic ulcer of other part of left foot with necrosis of muscle; M79.672 Pain in left foot | CPT/HCPCS: 97760; L4361 ==

== ENCOUNTER → 2023-05-17 13:56 | Outpatient (BNVA) | payer MEDICARE, SELFPAY | PROVIDERS: PCP Family Medicine; Visit Provider Nurse Practitioner Family | DX: E11.52 Type 2 diabetes mellitus with diabetic peripheral angiopathy with gangrene (principal); L97.522 Non-pressure chronic ulcer of other part of left foot with fat layer exposed | CPT/HCPCS: 97597; 99213 ==

== ENCOUNTER → 2023-05-24 14:42 | Outpatient (BNVA) | payer MEDICARE, SELFPAY | PROVIDERS: PCP Family Medicine; Visit Provider Nurse Practitioner Family | DX: E11.52 Type 2 diabetes mellitus with diabetic peripheral angiopathy with gangrene (principal); L97.521 Non-pressure chronic ulcer of other part of left foot limited to breakdown of skin | CPT/HCPCS: 11042; A6220 ==

== ENCOUNTER 2023-05-25 18:51 | Emergency (ER) | payer MEDICARE, SELFPAY ==
[2023-05-25] VITALS (8 sets, daily range): BP systolic 90–148; BP diastolic 55–81; PULSE 84–92; RESP 17–21; TEMP 36.4; O2SAT 90–94; BMI 27.9
--- NOTE | 2023-05-25 19:15 | XRR_ITS ---
PROCEDURE INFORMATION: Exam: XR Chest Exam date and time: 05/25/2023 8:35 PM Age: 68 years old Clinical indication: Pain; Chest pressure; Additional info: Dyspnea TECHNIQUE: Imaging protocol: Radiologic exam of the chest. Views: 1 view. COMPARISON: CR XR chest 1V portable [id number] 12/13/2022 8:47 PM FINDINGS: Lungs: Mild chronic interstitial changes in both lungs. Mild atelectasis in the left lung base and mid lung. Calcified granuloma in the left lung. The right lung is clear. Pleural spaces: Unremarkable. No pleural effusion. No pneumothorax. Heart/Mediastinum: Unremarkable. No cardiomegaly. Bones/joints: [place] in the right humeral head. XR/XR chest 1V portable [id number] IMPRESSION: No acute findings.
--- NOTE | 2023-05-25 19:16 | ECG_ITS ---
[facility] Test Date: 2023-05-25 Pat Name: Guy Wiseman Department: Room: Gender: Male [place] Alarm Superintendent: : [id number] Requested By: Ryan Beyer Order Number: [id number] Valeria MD: Franklin Nuno M.D. Measurements Intervals [place] Rate: 83 P: 52 ND: 235 QRS: -37 QRSD: 85 T: 60 QT: 359 QTc: 424 Interpretive Statements SINUS RHYTHM WITH FIRST DEGREE AV BLOCK POSSIBLE LEFT ATRIAL ENLARGEMENT [-0.1mV P-WAVE IN V1/V2] LEFT AXIS DEVIATION [QRS AXIS < -30] POSSIBLE ANTERIOR MYOCARDIAL INFARCTION , OF INDETERMINATE AGE [30 ms Q WAVE IN V3/V4, OR R < 0.2 mV IN V4] Compared to ECG 12/14/2022 02:21:34 Myocardial infarct finding now present Sinus arrhythmia no longer present Electronically Signed On 05-26-2023 1:08:39 CDT by Franklin Nuno M.D. [id number]
[2023-05-25 19:57] LABS: Basophils # 0.1 10^3/uL (0.0-0.1); Basophils % 0.7 %; Eosinophils # 0.3 10^3/uL (0.0-0.8); Eosinophils % 2.1 %; Hematocrit 37.8 % (42.0-52.0); Hemoglobin 12.4 g/dL (11.7-16.6); Lymphocytes # 2.6 10^3/uL (0.8-4.8); Lymphocytes % 20.9 %; Mean Corpuscular HGB Conc 32.8 g/dL (30.0-36.0); Mean Corpuscular Volume 94.5 fl (80-94); Mean Platelet Volume 9.4 fL (7.4-10.4); Monocytes # 0.8 10^3/uL (0.2-0.9); Monocytes % 6.7 %; Neutrophils # 8.46 10^3/uL (1.8-7.7); Neutrophils % 69.2 %; Nucleated Red Blood Cells % 0 %; Platelet Count 303 10^3/cmm (130-400); Red Cell Distribution Width 13.5 % (12.1-15.1); White Blood Count 12.2 10^3/uL (4.0-10.0)
[2023-05-25 20:21] LABS: Troponin(5th) Baseline 50 ng/L (0-15)
[2023-05-25] MEDS: sodium chloride 0.9% 1,000 ML 999 ML IV (20:40)
--- NOTE | 2023-05-25 20:49 | PC.NURSE ---
PATIENT PLACED ON CONTINUOUS BEDSIDE CARDIAC MONITORING.
[2023-05-25 21:08] LABS: Alanine Aminotransferase 17 U/L (0-41); Alkaline Phosphatase 295 U/L (40-130); Anion Gap 17.7 (5-19); Aspartate Amino Transferase 20 U/L (0-40); Blood Urea Nitrogen 37 mg/dL (8-23); Calcium 9.1 mg/dL (8.5-10.5); Carbon Dioxide 24 mmol/L (22-29); Chloride 95 mmol/L (98-107); Globulin 3.9 g/dL (1.3-4.6); Glomerular Filtration Rate 31.5 mL/min (90-130); Glucose 314 mg/dL (65-115); Lipase 32 U/L (13-60); NT Pro B Type Natriuretic Pept 2437 pg/mL (0-125); Osmolality Calculated 295 mOsm/kg (285-295); Potassium 4.7 mmol/L (3.5-5.1); Sodium 132 mmol/L (136-145); Total Bilirubin 0.2 mg/dL (0.15-1.2); Total Protein 6.9 g/dL (6.6-8.7)
[2023-05-25 22:31] LABS: Troponin 5 2HR 38.24 ng/L (0-15)
--- NOTE | 2023-05-26 01:08 | W.ED.CHESTPA ---
HPI - Chest Pain General: Chief Complaint: Chest Pain Stated Complaint: Heavy Chest Dizzy Time Seen by Provider: 05/25/23 20:10 Source: patient History of Present Illness: 68-year-old male with a history of valvular disease. He tells me he has a bad aortic valve . He is supposed to have a TAVR procedure in [place] at some point. He presents with shortness of breath, chest heaviness, and dizziness. He is feeling somewhat improved here more so than he was at home. His chest discomfort is essentially gone. No cough, no fever, no increasing swelling. He has been under wound care management for a diabetic ulcer of his left foot. This was seen yesterday, and was much improved. He had been on antibiotics for this prior, which increased his INR, but was checked yesterday and was back down to 2.0. MD complaint: chest heaviness Pertinent past history: other Onset (ago): hour(s) Timing of current episode: now resolved Prior episodes: Yes Onset: during rest Pain location: substernal Pain radiation: none Associated symptoms: Reports dyspnea; Deny abdominal pain, fever(s), nausea, palpitations or vomiting Review of Systems Const: Denies: fever(s) Eyes: Denies: change in vision ENMT: Denies: throat pain Card: Reports: chest pain; Denies: palpitations Resp: Reports: dyspnea; Denies: productive cough or non-productive cough GI: Denies: abdominal pain, nausea or vomiting [facility] PFSH: Medical History Chest pain Congestive heart failure COPD (chronic obstructive pulmonary disease) History of blood clots History of nonmelanoma skin cancer History of pulmonary embolism History of pulmonary embolism Hypertension Hypothalamic hypothyroidism Surgical History History of rotator cuff surgery Social History Smoking and tobacco status: current every day smoker Alcohol intake: never Substance/Drug Use: never Physical Exam Const: COMMON NORMALS: no acute distress GENERAL APPEARANCE: cooperative; not ill appearing and not frail appearing HENMT: COMMON NORMALS: normocephalic, atraumatic and Normal external nose present HEAD & SCALP: normocephalic and atraumatic FACE & SINUS: normal facial exam and face symmetric NOSE: Normal external nose present Eye: COMMON NORMALS: Equal, round and reactive pupils present and EOMs intact bilaterally PUPIL: Yes Equal, round and reactive pupils present Neck/C-Spine: GENERAL: Yes trachea midline Chest: CHEST: Yes Symmetrical chest wall rise Resp: COMMON NORMALS: normal respiratory effort, No retractions, No use of accessory muscles and clear to auscultation bilaterally AUSCULTATION: clear to auscultation bilaterally Cardio: COMMON NORMALS: regular rate and regular rhythm RATE: regular rate RHYTHM: regular rhythm GI: COMMON NORMALS: Normal to inspection, nondistended, normoactive bowel sounds present Extremity: COMMON NORMALS: no pedal edema Neuro: BUDDY COMA SCALE: document GCS findings Newberry coma scale eye opening: Spontaneous Newberry coma scale verbal response: Orientated Buddy coma scale motor response: Obey commands Newberry coma scale total score: 15 SENSORY EXAM: Yes extremities (intact) Psych: COMMON NORMALS: speech normal SPEECH: Yes normal speech Skin: COMMON NORMALS: no rashes or lesions noted GENERAL SKIN EXAM: no rashes or lesions noted Course Vital Signs: Vital signs: Vital Signs Temperature 97.5 F L 05/25/23 19:12 Pulse Rate 88 05/25/23 23:14 Respiratory Rate 17 05/25/23 22:28 Blood Pressure 129/67 05/25/23 23:14 Pulse Oximetry 91 05/25/23 23:14 Oxygen Delivery Me thod Room Air 05/25/23 22:28 MDM - Chest Pain Medical Decision Making 68-year-old male with resolved chest discomfort, and improved shortness of breath. He was orthostatic on arrival, and remained so after liter fluid, although he feels much improved after liter of fluid. Overhydration will be a problem in this patient given his history of aortic stenosis and heart failure. He wishes to go home. Hemoglobin is 12, white blood cell count is 12. Creatinine is minimally above baseline at 2.1. BNP is 2400 and appears baseline. 2-hour delta troponin is -11. Again, with improvement in his symptoms, he wishes to go home. Return precautions given. Lab Data 05/25/23 19:50 05/25/23 19:50 Radiology Impressions Chest X-Ray 05/25/23 19:15 IMPRESSION: No acute findings. Laboratory Results WBC 12.2 10^3/uL (4.0-10.0) H 05/25/23 19:50 RBC 4.00 10^6/uL (4.1-5.3) L 05/25/23 19:50 Hgb 12.4 g/dL (11.7-16.6) 05/25/23 19:50 Hct 37.8 % (42.0-52.0) L 05/25/23 19:50 MCV 94.5 fl (80-94) H 05/25/23 19:50 MCH 31.0 pg (28.0-34.0) 05/25/23 19:50 MCHC 32.8 g/dL (30.0-36.0) 05/25/23 19:50 RDW 13.5 % (12.1-15.1) 05/25/23 19:50 Plt Count 303 10^3/cmm (130-400) 05/25/23 19:50 MPV 9.4 fL (7.4-10.4) 05/25/23 19:50 Neut % (Auto) 69.2 % 05/25/23 19:50 Lymph % (Auto) 20.9 % 05/25/23 19:50 Fisher % (Auto) 6.7 % 05/25/23 19:50 Eos % (Auto) 2.1 % 05/25/23 19:50 Baso % (Auto) 0.7 % 05/25/23 19:50 Neut # (Auto) 8.46 10^3/uL (1.8-7.7) H 05/25/23 19:50 Lymph # (Auto) 2.6 10^3/uL (0.8-4.8) 05/25/23 19:50 Fisher # (Auto) 0.8 10^3/uL (0.2-0.9) 05/25/23 19:50 Eos # (Auto) 0.3 10^3/uL (0.0-0.8) 05/25/23 19:50 Baso # (Auto) 0.1 10^3/uL (0.0-0.1) 05/25/23 19:50 Nucleated RBC % (auto) 0 % 05/25/23 19:50 Nucleated RBCs # 0.0 /100WBC 05/25/23 19:50 Sodium 132 mmol/L (136-145) L 05/25/23 19:50 Potassium 4.7 mmol/L (3.5-5.1) 05/25/23 19:50 Chloride 95 mmol/L (98-107) L 05/25/23 19:50 Carbon Dioxide 24 mmol/L (22-29) 05/25/23 19:50 Anion Gap 17.7 (5-19) 05/25/23 19:50 BUN 37 mg/dL (8-23) H 05/25/23 19:50 Creatinine 2.1 mg/dL (0.7-1.2) H 05/25/23 19:50 GFR Calculation 31.5 mL/min (90-130) L 05/25/23 19:50 Glucose 314 mg/dL (65-115) H 05/25/23 19:50 Calculated Osmolality 295 mOsm/kg (285-295) 05/25/23 19:50 Calcium 9.1 mg/dL (8.5-10.5) 05/25/23 19:50 Total Bilirubin 0.2 mg/dL (0.15-1.2) 05/25/23 19:50 AST 20 U/L (0-40) 05/25/23 19:50 ALT 17 U/L (0-41) 05/25/23 19:50 Alkaline Phosphatase 295 U/L (40-130) H 05/25/23 19:50 Troponin T Baseline 50 ng/L (0-15) H 05/25/23 19:50 Troponin T 120 Minute 38.24 ng/L (0-15) H 05/25/23 22:07 Delta Troponin T -11.76 ABS# (0-10) L 05/25/23 22:07 NT-Pro-B Natriuret Pep 2437 pg/mL (0-125) H 05/25/23 19:50 Total Protein 6.9 g/dL (6.6-8.7) 05/25/23 19:50 Albumin 3.0 g/dL (3.5-5.2) L 05/25/23 19:50 Globulin 3.9 g/dL (1.3-4.6) 05/25/23 19:50 Lipase 32 U/L (13-60) 05/25/23 19:50 Discharge Plan Discharge Patient Disposition: Home Clinical Impression: Orthostatic hypotension, Acute dehydration Condition: Stable Prescriptions: No Action warfarin 5 mg tablet 5 mg PO DIRECTED Rx Instructions: 5mg dosing ,,sun,sat, sun aspirin 81 mg tablet,delayed release (DR/EC) 81 mg PO DAILY Humulin 70/30 U-100 Insulin 100 unit/mL (70-30) suspension 60 unit SUBCUT BID Qty: 30 5RF (DME) Cam boot to left See Rx Instructions .Route .MEDSUPPLY Qty: 1 0RF Rx Instructions: As directed levofloxacin 750 mg tablet 750 mg PO DAILY 10 Days Qty: 10 0RF simvastatin 40 mg tablet 40 mg PO DAILY Qty: 30 0RF Rx Instructions: Make follow-up for further refills albuterol sulfate 90 mcg/actuation HFA aerosol inhaler 2 inh INHALATION Q6H PRN (Reason: shortness of breath or wheezing) Qty: 8 0RF levothyroxine 112 mcg tablet 1 tab PO DAILY warfarin 7.5 mg Tablet 7.5 mg PO DIRECTED Rx Instructions: 7.5mg Sunday and bumetanide 1 mg tablet 1 mg PO DAILY Qty: 60 1RF potassium chloride 10 mEq tablet extended release 10 meq PO DAILY PRN (Reason: only take with bumex) Qty: 60 0RF Discharge Orders: Discharge ED (Routine); Ordered 05/25/23 Ordered By: Ruel Reynolds Referrals: Patrick Nick MD [Primary Care Provider] - 4-7 days Patient Instructions: Opioid Safety, Pain Management Activity Restrictions/Additional Instructions: Gentle hydration for the next 24 hours. Return for worsening dizziness, worsening shortness of breath, chest discomfort, other concerning symptoms. Follow-up with your doctor next week Coding Level of Care Code ED Preload Supervisor for José Cade
== END 2023-05-25 23:15 | disposition home or self-care (01) ==
PROVIDERS: Nurse Practitioner Family; Emergency Provider Emergency Medicine; PCP Family Medicine
DX: I95.1 Orthostatic hypotension (principal); E86.0 Dehydration; Z79.82 Long term (current) use of aspirin; Z79.01 Long term (current) use of anticoagulants; Z79.4 Long term (current) use of insulin; I11.0 Hypertensive heart disease with heart failure; I50.9 Heart failure, unspecified; J44.9 Chronic obstructive pulmonary disease, unspecified; Z86.711 Personal history of pulmonary embolism; F17.210 Nicotine dependence, cigarettes, uncomplicated
CPT/HCPCS: 36415; 71045; 80053; 83690; 83880; 84484; 85025; 93005; 96360; 99285; J7030

== ENCOUNTER → 2023-05-29 08:44 | Outpatient (BNVA) | payer MEDICARE, SELFPAY | PROVIDERS: PCP Family Medicine; Visit Provider Nurse Practitioner Family | DX: L81.4 Other melanin hyperpigmentation (principal); D22.5 Melanocytic nevi of trunk; L85.3 Xerosis cutis; L57.8 Other skin changes due to chronic exposure to nonionizing radiation; L57.0 Actinic keratosis; Z85.828 Personal history of other malignant neoplasm of skin; Z72.0 Tobacco use | CPT/HCPCS: 17004; 99213 ==

== ENCOUNTER → 2023-05-31 15:29 | Outpatient (BNVA) | payer MEDICARE, SELFPAY | PROVIDERS: PCP Family Medicine; Visit Provider Nurse Practitioner Family | DX: E11.52 Type 2 diabetes mellitus with diabetic peripheral angiopathy with gangrene (principal); L97.521 Non-pressure chronic ulcer of other part of left foot limited to breakdown of skin | CPT/HCPCS: 11042; A6220 ==

== ENCOUNTER → 2023-06-07 14:04 | Outpatient (BNVA) | payer MEDICARE, SELFPAY | PROVIDERS: PCP Family Medicine; Visit Provider Nurse Practitioner Family | DX: E11.52 Type 2 diabetes mellitus with diabetic peripheral angiopathy with gangrene (principal); L97.522 Non-pressure chronic ulcer of other part of left foot with fat layer exposed; L97.422 Non-pressure chronic ulcer of left heel and midfoot with fat layer exposed | CPT/HCPCS: 11042; A6220 ==

== ENCOUNTER → 2023-06-14 13:31 | Outpatient (BNVA) | payer MEDICARE, SELFPAY | PROVIDERS: PCP Family Medicine; Visit Provider Nurse Practitioner Family | DX: E11.621 Type 2 diabetes mellitus with foot ulcer (principal); L97.522 Non-pressure chronic ulcer of other part of left foot with fat layer exposed; L97.421 Non-pressure chronic ulcer of left heel and midfoot limited to breakdown of skin | CPT/HCPCS: 11042; A6446 ==

== ENCOUNTER → 2023-06-21 10:37 | Outpatient (BNVA) | payer MEDICARE, SELFPAY | PROVIDERS: PCP Family Medicine; Visit Provider Nurse Practitioner Family | DX: E11.52 Type 2 diabetes mellitus with diabetic peripheral angiopathy with gangrene (principal); L97.521 Non-pressure chronic ulcer of other part of left foot limited to breakdown of skin; L97.421 Non-pressure chronic ulcer of left heel and midfoot limited to breakdown of skin | CPT/HCPCS: 11042 ==

== ENCOUNTER → 2023-06-28 11:05 | Outpatient (BNVA) | payer MEDICARE, SELFPAY | PROVIDERS: PCP Family Medicine; Visit Provider Thoracic Surgery (Cardiothoracic Vascular Surgery) | DX: E11.52 Type 2 diabetes mellitus with diabetic peripheral angiopathy with gangrene (principal); L97.522 Non-pressure chronic ulcer of other part of left foot with fat layer exposed | CPT/HCPCS: 11042; 97597 ==

== ENCOUNTER → 2023-07-05 12:57 | Outpatient (BNVA) | payer MEDICARE, SELFPAY | PROVIDERS: PCP Family Medicine; Visit Provider Nurse Practitioner Family | DX: E11.52 Type 2 diabetes mellitus with diabetic peripheral angiopathy with gangrene (principal); L97.521 Non-pressure chronic ulcer of other part of left foot limited to breakdown of skin; L97.421 Non-pressure chronic ulcer of left heel and midfoot limited to breakdown of skin | CPT/HCPCS: 97597; A6210 ==

== ENCOUNTER 2023-07-12 08:05 | Outpatient (CLI) | payer MEDICARE, SELFPAY ==
--- NOTE | 2023-07-12 08:45 | MR_ITS ---
WS: [id number] MRI LEFT FOOT WITH AND WITHOUT CONTRAST. COMPARISON: Radiographs 05/11/2023. Multiplanar, multisequence imaging is performed with and without contrast. MultiHance 16 mL IV. History: 2 diabetic ulcers. Soft tissue ulcers are indicated with markers. Soft tissue ulceration just lateral to the distal fifth metatarsal extends over a length of 2.3 cm an d does extend to the cortical surface of the distal fifth metatarsal. There is contrast enhancement a long the ulcer bed extending to the cortical surface of the distal fifth metatarsal and head. There i s no abscess. Additional ulceration along the plantar surface of the foot at the level of the distal fourth metatar keri. This is a very superficial ulceration and there is no enhancement. The underlying bone is normal . Very small amount of increased T2 signal in the distal fifth metatarsal diaphysis and head. Slight en hancement associated with mild changes of osteomyelitis. Normal alignment at the tarsometatarsal junction. No Lisfranc injury. Normal Achilles tendon. IMPRESSION: 1. Soft tissue ulceration measures 2.3 cm in length just lateral to the distal fifth metatarsal. Ulce r extends to the cortical surface of the distal fifth metatarsal. There is mild enhancement of the co rtical surface distal fifth metatarsal consistent with osteomyelitis. Additional marrow edema in the distal fifth metatarsal. 2. Additional very superficial ulceration on the plantar surface of the foot does not enhance. No und erlying osteomyelitis.
[2023-07-12] MEDS: gadobenate dimeglumine 20 mL vial IV (09:56)
[2023-07-12 15:55] LABS: Anion Gap 14.2 (5-19); Blood Urea Nitrogen 31 mg/dL (8-23); Calcium 9.2 mg/dL (8.5-10.5); Carbon Dioxide 24 mmol/L (22-29); Chloride 103 mmol/L (98-107); Glomerular Filtration Rate 50.2 mL/min (90-130); Glucose 313 mg/dL (65-115); Osmolality Calculated 302 mOsm/kg (285-295); Potassium 4.2 mmol/L (3.5-5.1); Sodium 137 mmol/L (136-145)
== END 2023-07-12 08:06 | disposition home or self-care (01) ==
PROVIDERS: PCP Family Medicine; Visit Provider Nurse Practitioner Family
DX: E11.621 Type 2 diabetes mellitus with foot ulcer (principal); L97.421 Non-pressure chronic ulcer of left heel and midfoot limited to breakdown of skin; L97.521 Non-pressure chronic ulcer of other part of left foot limited to breakdown of skin
CPT/HCPCS: 11042; 36415; 73720; 80048; 97597; A6210; A6446; A9577

== ENCOUNTER → 2023-07-13 12:46 | Day surgery (SDC) | payer MEDICARE, SELFPAY ==
--- NOTE | 2023-07-13 12:25 | XR_ITS ---
WS: [id number] EXAMINATION: XR chest 1V portable [id number] REASON FOR EXAM: Post PICC insertion COMPARISON: 05/25/2023 ORDER DATE: 07/13/2023 12:25 PM TECHNIQUE: A single, portable frontal chest x-ray was obtained. X-RAY FINDINGS: The lungs are clear. Pleural spaces are clear. No pleural effusions or pneumothorax. Cardiomediastinal silhouette is normal. No evidence for pulmonary edema. Soft tissue and osseous structures are unremarkable. Right PICC line terminates at the cavoatrial omero ction in satisfactory position IMPRESSION: Unremarkable frontal portable chest x-ray.
[2023-07-13 13:00] VITALS: BP 126/60; PULSE 86; RESP 18; TEMP 36.1; O2SAT 95
[2023-07-13] MEDS: vancomycin 1,500 MG/300 ML PIGGYBACK 200 MG IV (13:49)
--- NOTE | 2023-07-13 14:41 | PC.NURSE ---
Pt referred to GI infusions from Wound Care for PICC placement. Pt to receive 6 weeks IV Vancomycin for osteo. Informed consent obtained from patient. Risks and benefits discussed with pt and significant other. Right arm basilic vein assessed and noted to be 4 mm, straight, and apparent best choice for placement. Using sterile technique and MST, right basilic accessed x 1 stick. Mid-arm circumference measured 10 cm from right AC 29 cm. Trimmed cath 38 cm with 0 cm external length noted. Line secured with stat-lock. Insertion site covered with Biopatch and TSM. CXR show tip in SVC, cavoatrial junction, in good position for use per radiologist. Report called to [facility], [facility]. Home health to come to pt residence tomorrow for dressing change and to administer antibiotic.
== END ==
LOC: GILAB 12:48
PROVIDERS: PCP Family Medicine; Visit Provider Nurse Practitioner Family
DX: M86.9 Osteomyelitis, unspecified (principal); Z79.899 Other long term (current) drug therapy
CPT/HCPCS: 36573; 71045; 96365; J3370

== ENCOUNTER 2023-07-17 10:58 | Outpatient (CLI) | payer MEDICARE, SELFPAY ==
[2023-07-16 13:29] LABS: Basophils # 0.1 10^3/uL (0.0-0.1); Basophils % 0.5 %; Eosinophils # 0.3 10^3/uL (0.0-0.8); Eosinophils % 2.8 %; Hematocrit 38.7 % (37-53); Lymphocytes # 2.8 10^3/uL (0.8-4.8); Lymphocytes % 23.2 %; Mean Corpuscular HGB Conc 32.8 g/dL (30-55); Mean Corpuscular Hemoglobin 30.5 pg (27-33); Mean Platelet Volume 10.2 fL (7.4-10.4); Neutrophils # 7.77 10^3/uL (1.8-7.7); Nucleated Red Blood Cells % 0 %; Platelet Count 216 10^3/cmm (157-399); Red Blood Count 4.16 10^6/uL (3.85-5.65); Red Cell Distribution Width 14.1 % (12.1-15.1); White Blood Count 11.97 10^3/uL (3.29-11.43)
[2023-07-16 13:45] LABS: Erythrocyte Sedimentation Rate 63 mm/hr (0-10)
[2023-07-16 14:00] LABS: Alanine Aminotransferase 22 U/L (0-41); Albumin Level 3.6 g/dL (3.5-5.2); Alkaline Phosphatase 144 U/L (40-130); Anion Gap 14.2 (5-19); Aspartate Amino Transferase 26 U/L (0-40); Blood Urea Nitrogen 30 mg/dL (8-23); C Reactive Protein 4.2 mg/L (0.0-4.9); Calcium 9.1 mg/dL (8.5-10.5); Carbon Dioxide 24 mmol/L (22-29); Chloride 101 mmol/L (98-107); Globulin 3.4 g/dL (1.3-4.6); Glomerular Filtration Rate 50.2 mL/min (90-130); Glucose 214 mg/dL (65-115); Osmolality Calculated 293 mOsm/kg (285-295); Potassium 4.2 mmol/L (3.5-5.1); Sodium 135 mmol/L (136-145); Total Bilirubin 0.4 mg/dL (0.15-1.2); Vancomycin Trough 8.7 ug/mL (10-15)
== END 2023-07-17 10:59 | disposition home or self-care (01) ==
LOC: LAB 10:59
PROVIDERS: PCP Family Medicine; Visit Provider Nurse Practitioner Family
DX: M86.172 Other acute osteomyelitis, left ankle and foot (principal)
CPT/HCPCS: 80053; 80202; 85025; 85651; 86140

== ENCOUNTER → 2023-07-19 13:02 | Outpatient (BNVA) | payer MEDICARE, SELFPAY | PROVIDERS: PCP Family Medicine; Visit Provider Nurse Practitioner Family | DX: E11.52 Type 2 diabetes mellitus with diabetic peripheral angiopathy with gangrene (principal); L97.521 Non-pressure chronic ulcer of other part of left foot limited to breakdown of skin; L97.421 Non-pressure chronic ulcer of left heel and midfoot limited to breakdown of skin | CPT/HCPCS: 97597; A6210 ==

== ENCOUNTER 2023-07-24 13:43 | Outpatient (CLI) | payer MEDICARE, SELFPAY ==
[2023-07-24 14:06] LABS: Basophils # 0.1 10^3/uL (0.0-0.1); Basophils % 0.5 %; Eosinophils # 0.4 10^3/uL (0.0-0.8); Eosinophils % 3.5 %; Hematocrit 35.9 % (37-53); Lymphocytes % 26.5 %; Mean Corpuscular HGB Conc 32.9 g/dL (30-55); Mean Corpuscular Hemoglobin 31.1 pg (27-33); Mean Corpuscular Volume 94.5 fl (82-101); Mean Platelet Volume 10.9 fL (7.4-10.4); Monocytes % 8.4 %; Neutrophils # 6.96 10^3/uL (1.8-7.7); Neutrophils % 60.8 %; Nucleated Red Blood Cells % 0 %; Platelet Count 172 10^3/cmm (157-399); Red Cell Distribution Width 14.4 % (12.1-15.1); White Blood Count 11.46 10^3/uL (3.29-11.43)
[2023-07-24 14:10] LABS: Erythrocyte Sedimentation Rate 45 mm/hr (0-10)
== END 2023-07-24 13:44 | disposition home or self-care (01) ==
LOC: LAB 13:43
PROVIDERS: PCP Family Medicine; Visit Provider Nurse Practitioner Family
DX: M86.172 Other acute osteomyelitis, left ankle and foot (principal)
CPT/HCPCS: 85025; 85651

== ENCOUNTER 2023-07-25 13:58 | Outpatient (CLI) | payer MEDICARE, SELFPAY ==
[2023-07-25 14:55] LABS: Alanine Aminotransferase 29 U/L (0-41); Albumin Level 4.1 g/dL (3.5-5.2); Alkaline Phosphatase 163 U/L (40-130); Aspartate Amino Transferase 38 U/L (0-40); Blood Urea Nitrogen 27 mg/dL (8-23); C Reactive Protein 5.3 mg/L (0.0-4.9); Calcium 9.4 mg/dL (8.5-10.5); Carbon Dioxide 24 mmol/L (22-29); Chloride 101 mmol/L (98-107); Globulin 3.5 g/dL (1.3-4.6); Glomerular Filtration Rate 54.7 mL/min (90-130); Glucose 170 mg/dL (65-115); Osmolality Calculated 293 mOsm/kg (285-295); Sodium 137 mmol/L (136-145); Total Bilirubin 0.4 mg/dL (0.15-1.2); Total Protein 7.6 g/dL (6.6-8.7)
[2023-07-25 14:57] LABS: Vancomycin Trough 14.7 ug/mL (10-15)
[2023-07-25 15:00] LABS: Anion Gap 16.4 (5-19); Potassium 4.4 mmol/L (3.5-5.1)
== END 2023-07-25 13:59 | disposition home or self-care (01) ==
PROVIDERS: PCP Family Medicine; Visit Provider Nurse Practitioner Family
DX: M86.172 Other acute osteomyelitis, left ankle and foot (principal)
CPT/HCPCS: 80053; 80202; 86140

== ENCOUNTER → 2023-07-26 13:43 | Outpatient (BNVA) | payer MEDICARE, SELFPAY | PROVIDERS: PCP Family Medicine; Visit Provider Nurse Practitioner Family | DX: E11.621 Type 2 diabetes mellitus with foot ulcer (principal); L97.422 Non-pressure chronic ulcer of left heel and midfoot with fat layer exposed; Z09 Encounter for follow-up examination after completed treatment for conditions other than malignant neoplasm | CPT/HCPCS: 11042; A6210 ==

== ENCOUNTER 2023-07-30 14:33 | Outpatient (CLI) | payer MEDICARE, SELFPAY ==
[2023-07-30 15:43] LABS: Basophils # 0.1 10^3/uL (0.0-0.1); Basophils % 0.3 %; Eosinophils # 0.3 10^3/uL (0.0-0.8); Eosinophils % 1.6 %; Hematocrit 36.4 % (37-53); Lymphocytes % 12.2 %; Mean Corpuscular HGB Conc 32.4 g/dL (30-55); Mean Corpuscular Hemoglobin 30.3 pg (27-33); Mean Corpuscular Volume 93.3 fl (82-101); Mean Platelet Volume 10.8 fL (7.4-10.4); Monocytes # 1.6 10^3/uL (0.2-0.9); Monocytes % 9.5 %; Neutrophils # 12.67 10^3/uL (1.8-7.7); Neutrophils % 75.8 %; Nucleated Red Blood Cells % 0 %; Platelet Count 201 10^3/cmm (157-399); Red Cell Distribution Width 14.2 % (12.1-15.1); White Blood Count 16.69 10^3/uL (3.29-11.43)
[2023-07-30 16:17] LABS: Vancomycin Trough 15.4 ug/mL (10-15)
[2023-07-30 16:46] LABS: Alanine Aminotransferase 17 U/L (0-41); Albumin Level 3.9 g/dL (3.5-5.2); Alkaline Phosphatase 144 U/L (40-130); Anion Gap 16.4 (5-19); Aspartate Amino Transferase 21 U/L (0-40); Blood Urea Nitrogen 26 mg/dL (8-23); C Reactive Protein 22.3 mg/L (0.0-4.9); Calcium 9.1 mg/dL (8.5-10.5); Carbon Dioxide 24 mmol/L (22-29); Chloride 99 mmol/L (98-107); Globulin 3.2 g/dL (1.3-4.6); Glomerular Filtration Rate 43.1 mL/min (90-130); Glucose 186 mg/dL (65-115); Osmolality Calculated 290 mOsm/kg (285-295); Potassium 4.4 mmol/L (3.5-5.1); Sodium 135 mmol/L (136-145); Total Bilirubin 0.6 mg/dL (0.15-1.2); Total Protein 7.1 g/dL (6.6-8.7)
== END 2023-07-30 14:34 | disposition home or self-care (01) ==
LOC: LAB 14:34
PROVIDERS: PCP Family Medicine; Visit Provider Nurse Practitioner Family
DX: M86.172 Other acute osteomyelitis, left ankle and foot (principal); L57.0 Actinic keratosis; I87.8 Other specified disorders of veins; L82.1 Other seborrheic keratosis; Z85.828 Personal history of other malignant neoplasm of skin; L57.8 Other skin changes due to chronic exposure to nonionizing radiation; L85.3 Xerosis cutis; L81.4 Other melanin hyperpigmentation; D22.5 Melanocytic nevi of trunk
CPT/HCPCS: 17000; 80053; 80202; 85025; 86140; 99213

== ENCOUNTER 2023-07-31 09:18 | Emergency (ER) | payer MEDICARE, SELFPAY ==
[2023-07-31 09:24] VITALS: BP 134/53; PULSE 85; RESP 18; TEMP 36.9; O2SAT 94; BMI 27.9
--- NOTE | 2023-07-31 09:32 | ED_ITS ---
HPI - Recheck/Abnormal Lab/Rx General: Chief Complaint: Recheck/Abnormal Lab/Rx Stated Complaint: infection in foot Time Seen by Provider: 07/31/23 09:21 Source: patient Mode of arrival: ambulatory History of Present Illness: 68-year-old male presents emergency room at the direction of [facility] from wound care. He had lab work done yesterday had a white count of 16.6. He is currently on IV vancomycin via PICC line. He grew out group B strep in April that his last available wound culture on the chart. There was an MRI done on 07/12/2023 that showed a soft tissue ulceration with some edema extending to the surface of the fifth metatarsal distally mild enhancement of the cortical surface thought to be consistent with osteomyelitis and he was started on vancomycin. He has felt like he has had a bit of a fever lately. MD complaint: abnormal lab Returns today for: wound recheck Review of Systems Const: Denies: fever(s), chills, body aches, change in appetite, fatigue or malaise ENMT: Denies: throat pain, ear or mastoid pain, nasal discharge or nasal congestion Card: Denies: chest pain, edema, dyspnea on exertion or orthopnea Resp: Denies: dyspnea, productive cough or non-productive cough GI: Denies: abdominal pain, nausea, vomiting, hematemesis, coffee ground emesis, diarrhea, constipation, bloating, hematochezia or melena : Denies: flank pain, dysuria, urinary frequency or urinary urgency Skin/Breast: Denies: rash or pruritus [facility] ED PFSH: Medical History Chest pain Congestive heart failure COPD (chronic obstructive pulmonary disease) History of blood clots History of nonmelanoma skin cancer History of pulmonary embolism History of pulmonary embolism Hypertension Hypothalamic hypothyroidism Surgical History History of rotator cuff surgery Social History Smoking and tobacco status: current every day smoker Alcohol intake: never Substance/Drug Use: never Physical Exam Const: GENERAL APPEARANCE: cooperative and comfortable ORIENTATION/CONSCIOUSNESS: Yes awake, Yes oriented to person, Yes oriented to place and Yes oriented to time HENMT: COMMON NORMALS: normocephalic, atraumatic and hearing grossly normal bilaterally HEAD & SCALP: normocephalic and atraumatic Resp: COMMON NORMALS: normal respiratory effort, No retractions, No use of accessory muscles and clear to auscultation bilaterally AUSCULTATION: clear to auscultation bilaterally Cardio: COMMON NORMALS: regular rate, regular rhythm and No murmurs present (Cardio) RATE: regular rate RHYTHM: regular rhythm GI: COMMON NORMALS: Soft to palpation and No hepatosplenomegaly present AUSCULTATION: Yes normoactive bowel sounds PALPATION: Yes Soft to palpation, No Tenderness to palpation present (GI), No Guarding due to palpation present (GI) and Yes No hepatosplenomegaly present Extremity: COMMON NORMALS: capillary refill normal, no clubbing, cyanosis or edema, no calf tenderness and no pedal edema OTHER: Wound with dry eschar overlying the distal portion of the fifth metatarsal on the left foot no active drainage no localized erythema redness or induration Neuro: SENSORIUM/ORIENTATION: Yes oriented to person, Yes oriented to place and Yes oriented to time Course Vital Signs: Vital signs: Vital Signs Temperature 98.4 F 07/31/23 09:24 Pulse Rate 86 07/31/23 09:34 Respiratory Rate 18 07/31/23 09:24 Blood Pressure 119/62 07/31/23 09:34 Pulse Oximetry 97 07/31/23 09:34 Oxygen Delivery Me thod Room Air 07/31/23 09:34 MDM - Recheck/Abnormal Lab/Rx Medical Decision Making White count has worsened slightly but now improved back to essentially baseline sed rate and CRP are elevated from previous. At this point is not septic. Continue current IV vancomycin we will set him up for outpatient arterial duplex and referral to podiatry for further management of the osteomyelitis return if has fever Medical Records I reviewed the patient's medical records. Lab Data I reviewed the patient's lab results. 07/31/23 09:46 07/31/23 09:46 Laboratory Results WBC 12.80 10^3/uL (3.29-11.43) H 07/31/23 09:46 RBC 3.78 10^6/uL (3.85-5.65) L 07/31/23 09:46 Hgb 11.60 g/dL (11.27-16.99) 07/31/23 09:46 Hct 36.2 % (37-53) L 07/31/23 09:46 MCV 95.8 fl (82-101) 07/31/23 09:46 MCH 30.7 pg (27-33) 07/31/23 09:46 MCHC 32.0 g/dL (30-55) 07/31/23 09:46 RDW 14.4 % (12.1-15.1) 07/31/23 09:46 Plt Count 165 10^3/cmm (157-399) 07/31/23 09:46 MPV 9.8 fL (7.4-10.4) 07/31/23 09:46 Neut % (Auto) 62.2 % 07/31/23 09:46 Lymph % (Auto) 22.4 % 07/31/23 09:46 [place]pine % (Auto) 12.7 % 07/31/23 09:46 Eos % (Auto) 2.0 % 07/31/23 09:46 Baso % (Auto) 0.5 % 07/31/23 09:46 Neut # (Auto) 7.95 10^3/uL (1.8-7.7) H 07/31/23 09:46 Lymph # (Auto) 2.9 10^3/uL (0.8-4.8) 07/31/23 09:46 Alpine # (Auto) 1.6 10^3/uL (0.2-0.9) H 07/31/23 09:46 Eos # (Auto) 0.3 10^3/uL (0.0-0.8) 07/31/23 09:46 Baso # (Auto) 0.1 10^3/uL (0.0-0.1) 07/31/23 09:46 Nucleated RBC % (auto) 0 % 07/31/23 09:46 Nucleated RBCs # 0.0 /100WBC 07/31/23 09:46 ESR 49 mm/hr (0-10) H 07/31/23 09:46 Sodium 133 mmol/L (136-145) L 07/31/23 09:46 Potassium 4.0 mmol/L (3.5-5.1) 07/31/23 09:46 Chloride 101 mmol/L (98-107) 07/31/23 09:46 Carbon Dioxide 21 mmol/L (22-29) L 07/31/23 09:46 Anion Gap 15.0 (5-19) 07/31/23 09:46 BUN 30 mg/dL (8-23) H 07/31/23 09:46 Creatinine 1.6 mg/dL (0.7-1.2) H 07/31/23 09:46 GFR Calculation 43.1 mL/min (90-130) L 07/31/23 09:46 Glucose 210 mg/dL (65-115) H 07/31/23 09:46 Calculated Osmolality 288 mOsm/kg (285-295) 07/31/23 09:46 Lactic Acid 1.7 mmol/L (0.5-2.2) 07/31/23 09:46 Calcium 8.8 mg/dL (8.5-10.5) 07/31/23 09:46 Total Bilirubin 0.6 mg/dL (0.15-1.2) 07/31/23 09:46 AST 20 U/L (0-40) 07/31/23 09:46 ALT 16 U/L (0-41) 07/31/23 09:46 Alkaline Phosphatase 145 U/L (40-130) H 07/31/23 09:46 C-Reactive Protein 107.0 mg/L (0.0-4.9) H 07/31/23 09:46 Total Protein 6.5 g/dL (6.6-8.7) L 07/31/23 09:46 Albumin 3.3 g/dL (3.5-5.2) L 07/31/23 09:46 Globulin 3.2 g/dL (1.3-4.6) 07/31/23 09:46 Discharge Plan Discharge Patient Disposition: Home Clinical Impression: Diabetic ulcer of left foot, Osteomyelitis of fifth toe of left foot Condition: Stable Prescriptions: No Action warfarin 5 mg tablet 5 mg PO DIRECTED Rx Instructions: 5mg dosing ,we,sun,sat, sun aspirin 81 mg tablet,delayed release (DR/EC) 81 mg PO DAILY Humulin 70/30 U-100 Insulin 100 unit/mL (70-30) suspension 60 unit SUBCUT BID Qty: 30 5RF (DME) Cam boot to left See Rx Instructions .Route .MEDSUPPLY Qty: 1 0RF Rx Instructions: As directed levofloxacin 750 mg tablet 750 mg PO DAILY 10 Days Qty: 10 0RF simvastatin 40 mg tablet 40 mg PO DAILY Qty: 30 0RF Rx Instructions: Make follow-up for further refills albuterol sulfate 90 mcg/actuation HFA aerosol inhaler 2 inh INHALATION Q6H PRN (Reason: shortness of breath or wheezing) Qty: 8 0RF levothyroxine 112 mcg tablet 1 tab PO DAILY warfarin 7.5 mg Tablet 7.5 mg PO DIRECTED Rx Instructions: 7.5mg Sunday and bumetanide 1 mg tablet 1 mg PO DAILY Qty: 60 1RF potassium chloride 10 mEq tablet extended release 10 meq PO DAILY PRN (Reason: only take with bumex) Qty: 60 0RF Discharge Orders: Discharge ED (Routine); Ordered 07/31/23 Ordered By: Andrea Pak Referrals: Patrick Nick MD [Primary Care Provider] - Discharge Diet: Usual diet Discharge Activity: Limit activity as instructed Patient Instructions: Opioid Safety, Pain Management Activity Restrictions/Additional Instructions: Avoid weightbearing on the left foot. Continue the IV antibiotics. restaurant district manager will make arrangements for you to follow-up with podiatry for continued monitoring and management of the infection of the bone in the left foot. They will also make arrangements for outpatient arterial Dopplers to assess blood flow to the leg. Coding Level of Care Code ED Test Engineer Nuclear Equipment for José Cade
[2023-07-31 09:34] VITALS: BP 119/62; PULSE 86; O2SAT 97
--- NOTE | 2023-07-31 09:36 | XR_ITS ---
WS: [id number] Exam: XR foot LT min 3V* [id number] Date/Time of Exam: 07/31/2023 9:38 AM Reason For Exam: diabetic foot ulcer Comparison 05/11/2023. No fracture or dislocation. No sign of bone destruction. Mild soft tissue swelling about the MP joint of the fifth toe. Degenerative changes in the IP joints and first MP joint. Vascular calcifications about the foot and ankle. IMPRESSION: 1. No fracture or bone destruction. 2. Soft tissue swelling and possible ulceration near the MP joint of the fifth digit.
--- NOTE | 2023-07-31 09:36 | ECG_ITS ---
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 Measurements Intervals [place] Rate: 81 P: 62 MT: 209 QRS: 62 QRSD: 93 T: 65 QT: 388 QTc: 451 Interpretive Statements SINUS RHYTHM INDETERMINATE AXIS Compared to ECG 05/25/2023 19:00:48 Indeterminate axis now present First degree AV block no longer present Left-axis deviation no longer present Myocardial infarct finding no longer present Electronically Signed On 07-31-2023 11:05:19 CDT by Franklin Nuno M.D. [email or web address]
[2023-07-31 09:53] LABS: Basophils # 0.1 10^3/uL (0.0-0.1); Basophils % 0.5 %; Eosinophils # 0.3 10^3/uL (0.0-0.8); Hematocrit 36.2 % (37-53); Lymphocytes # 2.9 10^3/uL (0.8-4.8); Lymphocytes % 22.4 %; Mean Corpuscular Hemoglobin 30.7 pg (27-33); Mean Corpuscular Volume 95.8 fl (82-101); Mean Platelet Volume 9.8 fL (7.4-10.4); Monocytes # 1.6 10^3/uL (0.2-0.9); Monocytes % 12.7 %; Neutrophils # 7.95 10^3/uL (1.8-7.7); Neutrophils % 62.2 %; Nucleated Red Blood Cells % 0 %; Platelet Count 165 10^3/cmm (157-399); Red Blood Count 3.78 10^6/uL (3.85-5.65); Red Cell Distribution Width 14.4 % (12.1-15.1)
[2023-07-31 10:11] LABS: Alanine Aminotransferase 16 U/L (0-41); Albumin Level 3.3 g/dL (3.5-5.2); Alkaline Phosphatase 145 U/L (40-130); Aspartate Amino Transferase 20 U/L (0-40); Blood Urea Nitrogen 30 mg/dL (8-23); Calcium 8.8 mg/dL (8.5-10.5); Carbon Dioxide 21 mmol/L (22-29); Chloride 101 mmol/L (98-107); Globulin 3.2 g/dL (1.3-4.6); Glomerular Filtration Rate 43.1 mL/min (90-130); Glucose 210 mg/dL (65-115); Lactic Sepsis W/Reflex 1.7 mmol/L (0.5-2.2); Osmolality Calculated 288 mOsm/kg (285-295); Sodium 133 mmol/L (136-145); Total Bilirubin 0.6 mg/dL (0.15-1.2); Total Protein 6.5 g/dL (6.6-8.7)
[2023-07-31 10:19] LABS: Erythrocyte Sedimentation Rate 49 mm/hr (0-10)
--- NOTE | 2023-07-31 12:20 | PC.SOCIAL ---
Referral to podiatry made at this time, message sent to clinic. Clinic will contact patient with appt date time. Order for o/p arterial duplex faxed to centralized scheduling at this time.
== END 2023-07-31 11:07 | disposition home or self-care (01) ==
PROVIDERS: Emergency Provider Family Medicine; PCP Family Medicine
DX: E11.621 Type 2 diabetes mellitus with foot ulcer (principal); L97.529 Non-pressure chronic ulcer of other part of left foot with unspecified severity; E11.69 Type 2 diabetes mellitus with other specified complication; M86.8X7 Other osteomyelitis, ankle and foot; Z79.01 Long term (current) use of anticoagulants; Z79.82 Long term (current) use of aspirin; Z79.4 Long term (current) use of insulin; I11.0 Hypertensive heart disease with heart failure; I50.9 Heart failure, unspecified; J44.9 Chronic obstructive pulmonary disease, unspecified; F17.210 Nicotine dependence, cigarettes, uncomplicated
CPT/HCPCS: 36415; 73630; 80053; 83605; 85025; 85651; 86140; 87040; 93005; 99285

== ENCOUNTER → 2023-08-02 13:46 | Outpatient (BNVA) | payer MEDICARE, SELFPAY | PROVIDERS: PCP Family Medicine; Visit Provider Nurse Practitioner Family | DX: E11.621 Type 2 diabetes mellitus with foot ulcer (principal); L97.421 Non-pressure chronic ulcer of left heel and midfoot limited to breakdown of skin | CPT/HCPCS: 97597 ==

== ENCOUNTER 2023-08-06 15:34 | Outpatient (CLI) | payer MEDICARE, SELFPAY ==
[2023-08-06 15:38] LABS: Basophils # 0.1 10^3/uL (0.0-0.1); Basophils % 0.6 %; Eosinophils # 0.4 10^3/uL (0.0-0.8); Eosinophils % 3.6 %; Hematocrit 33.6 % (37-53); Lymphocytes # 2.3 10^3/uL (0.8-4.8); Lymphocytes % 22.6 %; Mean Corpuscular HGB Conc 31.5 g/dL (30-55); Mean Corpuscular Volume 95.2 fl (82-101); Mean Platelet Volume 10.1 fL (7.4-10.4); Monocytes % 9.6 %; Neutrophils # 6.56 10^3/uL (1.8-7.7); Neutrophils % 63.2 %; Nucleated Red Blood Cells % 0 %; Platelet Count 266 10^3/cmm (157-399); Red Blood Count 3.53 10^6/uL (3.85-5.65); White Blood Count 10.36 10^3/uL (3.29-11.43)
[2023-08-06 16:01] LABS: Vancomycin Trough 14.8 ug/mL (10-15)
[2023-08-06 16:06] LABS: Alanine Aminotransferase 22 U/L (0-41); Albumin Level 3.5 g/dL (3.5-5.2); Alkaline Phosphatase 216 U/L (40-130); Anion Gap 13.6 (5-19); Aspartate Amino Transferase 26 U/L (0-40); Blood Urea Nitrogen 33 mg/dL (8-23); C Reactive Protein 15.7 mg/L (0.0-4.9); Carbon Dioxide 24 mmol/L (22-29); Chloride 103 mmol/L (98-107); Globulin 3.4 g/dL (1.3-4.6); Glomerular Filtration Rate 43.1 mL/min (90-130); Glucose 178 mg/dL (65-115); Osmolality Calculated 294 mOsm/kg (285-295); Potassium 4.6 mmol/L (3.5-5.1); Sodium 136 mmol/L (136-145); Total Bilirubin 0.4 mg/dL (0.15-1.2); Total Protein 6.9 g/dL (6.6-8.7)
== END 2023-08-06 15:35 | disposition home or self-care (01) ==
LOC: LAB 15:36
PROVIDERS: PCP Family Medicine; Visit Provider Thoracic Surgery (Cardiothoracic Vascular Surgery)
DX: M86.172 Other acute osteomyelitis, left ankle and foot (principal)
CPT/HCPCS: 80053; 80202; 85025; 86140

== ENCOUNTER → 2023-08-09 11:03 | Outpatient (BNVA) | payer MEDICARE, SELFPAY | PROVIDERS: PCP Family Medicine; Visit Provider Nurse Practitioner Family | DX: E11.621 Type 2 diabetes mellitus with foot ulcer (principal); L97.422 Non-pressure chronic ulcer of left heel and midfoot with fat layer exposed | CPT/HCPCS: 11042; A6212 ==

== ENCOUNTER 2023-08-13 09:00 | Outpatient (CLI) | payer MEDICARE, SELFPAY ==
[2023-08-13 15:24] LABS: Basophils # 0.1 10^3/uL (0.0-0.1); Basophils % 0.6 %; Eosinophils # 0.4 10^3/uL (0.0-0.8); Eosinophils % 2.6 %; Hematocrit 34.1 % (37-53); Lymphocytes # 3.4 10^3/uL (0.8-4.8); Lymphocytes % 25.2 %; Mean Corpuscular HGB Conc 32.3 g/dL (30-55); Mean Corpuscular Hemoglobin 30.4 pg (27-33); Mean Corpuscular Volume 94.2 fl (82-101); Mean Platelet Volume 10.4 fL (7.4-10.4); Monocytes % 7.1 %; Neutrophils # 8.64 10^3/uL (1.8-7.7); Neutrophils % 64.1 %; Nucleated Red Blood Cells % 0 %; Platelet Count 281 10^3/cmm (157-399); Red Blood Count 3.62 10^6/uL (3.85-5.65); Red Cell Distribution Width 14.3 % (12.1-15.1); White Blood Count 13.47 10^3/uL (3.29-11.43)
[2023-08-13 15:54] LABS: Alanine Aminotransferase 22 U/L (0-41); Albumin Level 3.5 g/dL (3.5-5.2); Alkaline Phosphatase 186 U/L (40-130); Aspartate Amino Transferase 25 U/L (0-40); Blood Urea Nitrogen 29 mg/dL (8-23); C Reactive Protein 5.3 mg/L (0.0-4.9); Calcium 6.7 mg/dL (8.5-10.5); Carbon Dioxide 25 mmol/L (22-29); Chloride 100 mmol/L (98-107); Globulin 3.5 g/dL (1.3-4.6); Glomerular Filtration Rate 40.2 mL/min (90-130); Glucose 245 mg/dL (65-115); Osmolality Calculated 298 mOsm/kg (285-295); Sodium 137 mmol/L (136-145); Total Bilirubin 0.5 mg/dL (0.15-1.2)
[2023-08-13 15:57] LABS: Vancomycin Trough 15.1 ug/mL (10-15)
[2023-08-13 16:03] LABS: Anion Gap 17.4 (5-19); Potassium 5.4 mmol/L (3.5-5.1)
== END 2023-08-13 09:20 | disposition home or self-care (01) ==
LOC: LAB 11-20 10:02
PROVIDERS: PCP Family Medicine; Visit Provider Nurse Practitioner Family
DX: M86.172 Other acute osteomyelitis, left ankle and foot (principal)
CPT/HCPCS: 80053; 80202; 85025; 86140

== ENCOUNTER → 2023-08-16 10:09 | Outpatient (BNVA) | payer MEDICARE, SELFPAY | PROVIDERS: PCP Family Medicine; Visit Provider Nurse Practitioner Family | DX: E11.621 Type 2 diabetes mellitus with foot ulcer (principal); L97.411 Non-pressure chronic ulcer of right heel and midfoot limited to breakdown of skin | CPT/HCPCS: 97597; A6219 ==

== ENCOUNTER 2023-08-20 11:00 | Outpatient (CLI) | payer MEDICARE, SELFPAY ==
[2023-08-20 15:02] LABS: Basophils # 0.1 10^3/uL (0.0-0.1); Basophils % 0.6 %; Eosinophils # 0.3 10^3/uL (0.0-0.8); Eosinophils % 3.4 %; Hematocrit 34.5 % (37-53); Lymphocytes # 2.1 10^3/uL (0.8-4.8); Lymphocytes % 21.5 %; Mean Corpuscular HGB Conc 32.2 g/dL (30-55); Mean Corpuscular Hemoglobin 30.2 pg (27-33); Mean Platelet Volume 10.3 fL (7.4-10.4); Monocytes # 0.9 10^3/uL (0.2-0.9); Neutrophils # 6.39 10^3/uL (1.8-7.7); Neutrophils % 65.2 %; Nucleated Red Blood Cells % 0 %; Platelet Count 213 10^3/cmm (157-399); Red Blood Count 3.67 10^6/uL (3.85-5.65); Red Cell Distribution Width 14.5 % (12.1-15.1); White Blood Count 9.79 10^3/uL (3.29-11.43)
[2023-08-20 15:26] LABS: Vancomycin Trough 16.2 ug/mL (10-15)
[2023-08-20 15:27] LABS: Alanine Aminotransferase 18 U/L (0-41); Albumin Level 3.6 g/dL (3.5-5.2); Alkaline Phosphatase 207 U/L (40-130); Anion Gap 14.2 (5-19); Aspartate Amino Transferase 24 U/L (0-40); Blood Urea Nitrogen 29 mg/dL (8-23); C Reactive Protein 9.6 mg/L (0.0-4.9); Calcium 8.6 mg/dL (8.5-10.5); Carbon Dioxide 25 mmol/L (22-29); Chloride 102 mmol/L (98-107); Globulin 3.4 g/dL (1.3-4.6); Glomerular Filtration Rate 37.6 mL/min (90-130); Glucose 219 mg/dL (65-115); Osmolality Calculated 297 mOsm/kg (285-295); Potassium 4.2 mmol/L (3.5-5.1); Sodium 137 mmol/L (136-145); Total Bilirubin 0.5 mg/dL (0.15-1.2)
== END 2023-08-20 11:01 | disposition home or self-care (01) ==
LOC: LAB 11-22 13:29
PROVIDERS: PCP Family Medicine; Visit Provider Nurse Practitioner Family
DX: M86.172 Other acute osteomyelitis, left ankle and foot (principal)
CPT/HCPCS: 80053; 80202; 85025; 86140

== ENCOUNTER → 2023-08-23 10:36 | Outpatient (BNVA) | payer MEDICARE, SELFPAY | PROVIDERS: PCP Family Medicine; Visit Provider Nurse Practitioner Family | DX: E11.621 Type 2 diabetes mellitus with foot ulcer (principal); L97.421 Non-pressure chronic ulcer of left heel and midfoot limited to breakdown of skin; S81.819A Laceration without foreign body, unspecified lower leg, initial encounter; X58.XXXA Exposure to other specified factors, initial encounter | CPT/HCPCS: 97597; 97598; A6212 ==

== ENCOUNTER → 2023-08-30 08:23 | Outpatient (BNVA) | payer MEDICARE, SELFPAY | PROVIDERS: PCP Family Medicine; Visit Provider Nurse Practitioner Family | DX: S81.812D Laceration without foreign body, left lower leg, subsequent encounter (principal); W22.8XXD Striking against or struck by other objects, subsequent encounter; Z09 Encounter for follow-up examination after completed treatment for conditions other than malignant neoplasm | CPT/HCPCS: 97597; A6212 ==

== ENCOUNTER → 2023-09-06 10:09 | Outpatient (BNVA) | payer MEDICARE, SELFPAY | PROVIDERS: PCP Family Medicine; Visit Provider Nurse Practitioner Family | DX: Z09 Encounter for follow-up examination after completed treatment for conditions other than malignant neoplasm (principal); Z87.2 Personal history of diseases of the skin and subcutaneous tissue | CPT/HCPCS: 99212 ==

== ENCOUNTER 2023-11-08 09:38 | Outpatient (CLI) | payer MEDICARE, SELFPAY ==
--- NOTE | 2023-11-08 09:44 | XRR_ITS ---
PROCEDURE INFORMATION: Exam: XR Left Foot Exam date and time: 11/08/2023 9:52 AM Age: 68 years old Clinical indication: Pain; Foot; Left; Additional info: Osteomyelitis TECHNIQUE: Imaging protocol: Radiologic exam of the left foot. Views: 3 or more views. COMPARISON: CR XR foot LT min 3V* [id number] 07/31/2023 9:39 AM FINDINGS: Bones/joints: Extensive arterial calcifications. Intertarsal degenerative changes. No fracture or dislocation. Degenerative changes at the 1st MTP joint. Soft tissues: Normal. XR/XR foot LT min 3V* [id number] IMPRESSION: No acute findings.
== END 2023-11-08 09:39 | disposition home or self-care (01) ==
LOC: RAD 09:40
PROVIDERS: PCP Family Medicine; Visit Provider Emergency Medicine
DX: M86.9 Osteomyelitis, unspecified (principal)
CPT/HCPCS: 73630

== ENCOUNTER → 2023-11-13 13:52 | Outpatient (BNVA) | payer MEDICARE, SELFPAY | PROVIDERS: PCP Family Medicine; Visit Provider Podiatrist Foot & Ankle Surgery | DX: L85.1 Acquired keratosis [keratoderma] palmaris et plantaris (principal); M21.622 Bunionette of left foot | CPT/HCPCS: 17110 ==

== ENCOUNTER 2023-11-27 11:09 | Emergency (ER) | payer MEDICARE, SELFPAY ==
[2023-11-27 11:16] VITALS: BP 123/68; PULSE 96; RESP 14; TEMP 36.6; O2SAT 89; BMI 27.9
--- NOTE | 2023-11-27 11:27 | XR_ITS ---
WS: [id number] PORTABLE CHEST HISTORY: chest pain COMPARISON: 07/13/2023 Minimal prominence of the interstitial markings in the central lungs. This may be chronic or due to m ild pneumonitis. No areas of consolidation and no mass. No pleural effusion or pneumothorax. Cardiac size: Normal size. Aortic valve replacement noted. Mediastinum/Aorta: Mild atherosclerosis aorta. Single anchor RIGHT humeral head. IMPRESSION: Very minimal prominence of the interstitial markings in the central lungs. This may indicate a very m ild pneumonitis or be chronic. No pneumonia.
[2023-11-27 11:48] LABS: Basophils % 0.4 %; Eosinophils # 0.2 10^3/uL (0.0-0.8); Eosinophils % 2.7 %; Hematocrit 30.9 % (37-53); Lymphocytes # 1.5 10^3/uL (0.8-4.8); Mean Corpuscular Hemoglobin 29.3 pg (27-33); Mean Corpuscular Volume 88.8 fl (82-101); Mean Platelet Volume 9.3 fL (7.4-10.4); Monocytes % 11.3 %; Neutrophils # 6.17 10^3/uL (1.8-7.7); Neutrophils % 68.2 %; Nucleated Red Blood Cells % 0 %; Platelet Count 218 10^3/cmm (157-399); Red Blood Count 3.48 10^6/uL (3.85-5.65); Red Cell Distribution Width 13.8 % (12.1-15.1); White Blood Count 9.05 10^3/uL (3.29-11.43)
--- NOTE | 2023-11-27 12:03 | W.ED.CHESTPA ---
HPI - Chest Pain General: Chief Complaint: Chest Pain Stated Complaint: chest pain Time Seen by Provider: 11/27/23 11:27 Source: patient Mode of arrival: ambulatory History of Present Illness: 68-year-old male presents emergency room with chest pain that began yesterday. Patient is diabetic he had a previous aortic valve replacement in September 2023. He is currently on Coumadin -he has a history of DVTs in the past. He has been on it since 2003. He has been having twinges of chest pain with activity last no more than a minute at a time. It is on his left side. No associated shortness of breath or radiation of pain. Noticed it more so after doing some heavy lifting yesterday which is a little more activity than any done since having the valve replaced. He had a TAVR valve replacement. He did have an angiogram prior to that that he was reported to him as being negative. MD complaint: chest pain Onset (ago): day(s) Timing of current episode: episodic Prior episodes: Yes Pain location: left chest Pain radiation: none Quality: sharp Relieving factors: nothing Exacerbating factors: nothing Associated symptoms: Deny abdominal pain, diaphoresis, dyspnea, fever(s), leg edema, nausea, palpitations, sense of impending doom, syncope or vomiting Treatment prior to arrival: none Review of Systems Const: Denies: fever(s), chills or diaphoresis Card: Denies: chest pain, palpitations or syncope Resp: Denies: dyspnea GI: Denies: abdominal pain, nausea or vomiting : Denies: dysuria, urinary frequency or urinary urgency Musc: Denies: neck pain or back pain Skin/Breast: Denies: rash [facility] ED PFSH: Medical History History of pulmonary embolism Congestive heart failure Chest pain History of nonmelanoma skin cancer Hypothalamic hypothyroidism Hypertension History of blood clots COPD (chronic obstructive pulmonary disease) History of pulmonary embolism Surgical History History of rotator cuff surgery Social History Smoking and tobacco/nicotine status: current every day tobacco/nicotine user Alcohol intake: never Substance/Drug Use: never Physical Exam Const: COMMON NORMALS: no acute distress GENERAL APPEARANCE: cooperative and comfortable ORIENTATION/CONSCIOUSNESS: Yes awake, Yes oriented to person, Yes oriented to place and Yes oriented to time HENMT: COMMON NORMALS: normocephalic, atraumatic and hearing grossly normal bilaterally HEAD & SCALP: normocephalic and atraumatic Resp: COMMON NORMALS: normal respiratory effort, No retractions, No use of accessory muscles and clear to auscultation bilaterally AUSCULTATION: clear to auscultation bilaterally Cardio: COMMON NORMALS: regular rate, regular rhythm and No murmurs present (Cardio) RATE: regular rate RHYTHM: regular rhythm GI: COMMON NORMALS: Soft to palpation and No hepatosplenomegaly present AUSCULTATION: Yes normoactive bowel sounds PALPATION: Yes Soft to palpation, No Tenderness to palpation present (GI), No Guarding due to palpation present (GI) and Yes No hepatosplenomegaly present Extremity: COMMON NORMALS: normal to inspection, capillary refill normal, no clubbing, cyanosis or edema, no calf tenderness and no pedal edema Neuro: SENSORIUM/ORIENTATION: Yes oriented to person, Yes oriented to place and Yes oriented to time Skin: COMMON NORMALS: no rashes or lesions noted GENERAL SKIN EXAM: no rashes or lesions noted Course Vital Signs: Vital signs: Vital Signs Temperature 97.8 F 11/27/23 11:16 Pulse Rate 87 11/27/23 15:20 Respiratory Rate 19 H 11/27/23 15:20 Blood Pressure 116/68 11/27/23 15:20 Pulse Oximetry 91 11/27/23 15:20 Oxygen Delivery Me thod Room Air 11/27/23 12:41 MDM - Chest Pain Medical Decision Making Pain reproducible with deep inspiration and palpation. Troponin shows a negative delta no EKG changes discharge home follow-up with primary care return if has further problems. Medical Records I reviewed the patient's medical records. Lab Data I reviewed the patient's lab results. 11/27/23 11:40 11/27/23 11:40 Laboratory Results WBC 9.05 10^3/uL (3.29-11.43) 11/27/23 11:40 RBC 3.48 10^6/uL (3.85-5.65) L 11/27/23 11:40 Hgb 10.20 g/dL (11.27-16.99) L 11/27/23 11:40 Hct 30.9 % (37-53) L 11/27/23 11:40 MCV 88.8 fl (82-101) 11/27/23 11:40 MCH 29.3 pg (27-33) 11/27/23 11:40 MCHC 33.0 g/dL (30-55) 11/27/23 11:40 RDW 13.8 % (12.1-15.1) 11/27/23 11:40 Plt Count 218 10^3/cmm (157-399) 11/27/23 11:40 MPV 9.3 fL (7.4-10.4) 11/27/23 11:40 Neut % (Auto) 68.2 % 11/27/23 11:40 Lymph % (Auto) 17.0 % 11/27/23 11:40 [place] % (Auto) 11.3 % 11/27/23 11:40 Eos % (Auto) 2.7 % 11/27/23 11:40 Baso % (Auto) 0.4 % 11/27/23 11:40 Neut # (Auto) 6.17 10^3/uL (1.8-7.7) 11/27/23 11:40 Lymph # (Auto) 1.5 10^3/uL (0.8-4.8) 11/27/23 11:40 [place] # (Auto) 1.0 10^3/uL (0.2-0.9) H 11/27/23 11:40 Eos # (Auto) 0.2 10^3/uL (0.0-0.8) 11/27/23 11:40 Baso # (Auto) 0.0 10^3/uL (0.0-0.1) 11/27/23 11:40 Nucleated RBC % (auto) 0 % 11/27/23 11:40 Nucleated RBCs # 0.0 /100WBC 11/27/23 11:40 PT 46.80 SECONDS (12.1-14.9) H 11/27/23 11:40 INR 4.79 (0.8-1.2) H 11/27/23 11:40 Sodium 131 mmol/L (136-145) L 11/27/23 11:40 Potassium 4.0 mmol/L (3.5-5.1) 11/27/23 11:40 Chloride 96 mmol/L (98-107) L 11/27/23 11:40 Carbon Dioxide 21 mmol/L (22-29) L 11/27/23 11:40 Anion Gap 18.0 (5-19) 11/27/23 11:40 BUN 43 mg/dL (8-23) H 11/27/23 11:40 Creatinine 2.2 mg/dL (0.7-1.2) H 11/27/23 11:40 GFR Calculation 29.8 mL/min (90-130) L 11/27/23 11:40 Glucose 476 mg/dL (65-115) H 11/27/23 11:40 Calculated Osmolality 304 mOsm/kg (285-295) H 11/27/23 11:40 Calcium 9.1 mg/dL (8.5-10.5) 11/27/23 11:40 Total Bilirubin 0.5 mg/dL (0.15-1.2) 11/27/23 11:40 AST 20 U/L (0-40) 11/27/23 11:40 ALT 15 U/L (0-41) 11/27/23 11:40 Alkaline Phosphatase 194 U/L (40-130) H 11/27/23 11:40 Troponin T Baseline 58 ng/L (0-15) H 11/27/23 11:40 Troponin T 120 Minute 52.05 ng/L (0-15) H 11/27/23 13:37 Delta Troponin T -5.95 ABS# (0-10) L 11/27/23 13:37 Total Protein 6.4 g/dL (6.6-8.7) L 11/27/23 11:40 Albumin 3.2 g/dL (3.5-5.2) L 11/27/23 11:40 Globulin 3.2 g/dL (1.3-4.6) 11/27/23 11:40 All radiology interpretation(s) finalized by discharge Discharge Plan Discharge Patient Disposition: Home Clinical Impression: Chest wall muscle strain Condition: Stable Prescriptions: No Action warfarin 5 mg tablet 5 mg PO DIRECTED Rx Instructions: 5mg dosing TUES, WED, FRI, SAT, AND SUN aspirin 81 mg tablet,delayed release (DR/EC) 81 mg PO QAM (DME) Cam boot to left See Rx Instructions .Route .MEDSUPPLY Qty: 1 0RF Rx Instructions: As directed simvastatin 40 mg tablet 40 mg PO DAILY Qty: 30 0RF albuterol sulfate 90 mcg/actuation HFA aerosol inhaler 2 inh INHALATION Q6H PRN (Reason: shortness of breath or wheezing) Qty: 8 0RF warfarin 7.5 mg Tablet 7.5 mg PO DIRECTED Rx Instructions: 7.5mg Sunday potassium chloride 10 mEq tablet extended release 10 meq PO DAILY PRN (Reason: only take with bumex) Qty: 60 0RF levothyroxine 112 mcg tablet 112 mcg PO DAILY Adempas 2.5 mg Tablet 2.5 mg PO TID Humulin 70/30 U-100 Insulin 100 unit/mL (70-30) suspension See Rx Instructions .ROUTE .COMPLEX Rx Instructions: INJECT FROM 25 TO 45 UNITS PER SLIDING SCALE TWICE DAILY bumetanide 1 mg tablet 2 mg PO DAILY Discharge Orders: Discharge ED (Routine); Ordered 11/27/23 Ordered By: Andrea Pak Referrals: Patrick Nick MD [Primary Care Provider] - Discharge Diet: Usual diet Discharge Activity: Resume usual activity Patient Instructions: Opioid Safety, Pain Management Activity Restrictions/Additional Instructions: Thank you for choosing [facility] for your healthcare needs today. Please realize this is an emergency room and that we are providing you with a medical screening exam and this may not be complete and all inclusive of all the testing and or work up that you may need to determine your ailment or severity of your illness. It is very important that you follow up as instructed or that you return to the Emergency Department should you have concerns or if your condition changes or worsens in any way. You are seen today for complaint of chest discomfort. No acute changes on your EKG and your cardiac enzymes trended normal. Your INR is significantly elevated recommend do not take any Coumadin today or tomorrow and recheck your INR 2 days and follow-up with the doctor who manages your warfarin for you. Coding Level of Care Code ED Tuna Purse Seiner for José Cade
--- NOTE | 2023-11-27 12:10 | ECG_ITS ---
[facility] Test Date: 2023-11-27 Pat Name: Guy Wiseman Department: Room: Gender: Male Obstetrics Gynecology Physician: : 1955 Requested By: Andrea Lopez Order Number: [id number] Valeria MD: Patrice Lopez M.D. Measurements Intervals [place] Rate: 91 P: 62 MO: 230 QRS: 84 QRSD: 101 T: 62 QT: 363 QTc: 447 Interpretive Statements SINUS RHYTHM WITH FIRST DEGREE AV BLOCK WITH OCCASIONAL SUPRAVENTRICULAR PREMATURE COMPLEXES POSSIBLE acute inferolateral myocardial infarction Compared to ECG 07/31/2023 09:57:18 First degree AV block now present Myocardial infarct finding now present Indeterminate axis no longer present Electronically Signed On 11-27-2023 21:42:09 ENERGY INFRASTRUCTURE ENGINEER by Patrice Lopez M.D. [id number]
[2023-11-27 12:13] LABS: INR 4.79 (0.8-1.2); Troponin(5th) Baseline 58 ng/L (0-15)
[2023-11-27 12:28] LABS: Alanine Aminotransferase 15 U/L (0-41); Albumin Level 3.2 g/dL (3.5-5.2); Alkaline Phosphatase 194 U/L (40-130); Aspartate Amino Transferase 20 U/L (0-40); Blood Urea Nitrogen 43 mg/dL (8-23); Calcium 9.1 mg/dL (8.5-10.5); Carbon Dioxide 21 mmol/L (22-29); Chloride 96 mmol/L (98-107); Globulin 3.2 g/dL (1.3-4.6); Glomerular Filtration Rate 29.8 mL/min (90-130); Glucose 476 mg/dL (65-115); Osmolality Calculated 304 mOsm/kg (285-295); Sodium 131 mmol/L (136-145); Total Bilirubin 0.5 mg/dL (0.15-1.2); Total Protein 6.4 g/dL (6.6-8.7)
[2023-11-27 12:41] VITALS: BP 110/80; PULSE 79; RESP 17; O2SAT 92
[2023-11-27] MEDS: aspirin 81 mg Chew Tablet 324 MG PO (12:43)
--- NOTE | 2023-11-27 13:27 | ECG_ITS ---
[facility] Test Date: 2023-11-27 Pat Name: Guy Wiseman Department: Room: Gender: Male Mold Capper Helper: : 1955 Requested By: Andrea Lopez Order Number: [id number] Valeria MD: Patrice Lopez M.D. Measurements Intervals [place] Rate: 87 P: 54 NM: 234 QRS: 81 QRSD: 96 T: 67 QT: 369 QTc: 445 Interpretive Statements SINUS RHYTHM WITH FIRST DEGREE AV BLOCK WITH OCCASIONAL SUPRAVENTRICULAR PREMATURE COMPLEXES POSSIBLE INFEROLATERAL MYOCARDIAL INFARCTION , OF INDETERMINATE AGE [30 ms Q WAVE IN V3/V4, OR R < 0.2 mV IN V4] Compared to ECG 11/27/2023 12:10:30 No significant changes Electronically Signed On 11-27-2023 21:48:44 PROCESS DESIGN ENGINEER by Patrice Lopez M.D. [id number]
[2023-11-27 14:19] VITALS: BP 116/68; PULSE 87; RESP 19; O2SAT 91
[2023-11-27 14:36] LABS: Troponin 5 2HR 52.05 ng/L (0-15)
[2023-11-27 14:42] LABS: Troponin 5 2HR Delta -5.95 ABS# (0-10)
[2023-11-27 15:20] VITALS: BP 116/68; PULSE 87; RESP 19; O2SAT 91
== END 2023-11-27 15:21 | disposition home or self-care (01) ==
PROVIDERS: Emergency Provider Family Medicine; PCP Family Medicine
DX: S29.011A Strain of muscle and tendon of front wall of thorax, initial encounter (principal); Z79.82 Long term (current) use of aspirin; Z79.01 Long term (current) use of anticoagulants; Z79.4 Long term (current) use of insulin; I11.0 Hypertensive heart disease with heart failure; I50.9 Heart failure, unspecified; J44.9 Chronic obstructive pulmonary disease, unspecified; Z86.711 Personal history of pulmonary embolism; Z72.0 Tobacco use; Z95.2 Presence of prosthetic heart valve; X50.0XXA Overexertion from strenuous movement or load, initial encounter
CPT/HCPCS: 36415; 71045; 80053; 84484; 85025; 85610; 93005; 99285

== ENCOUNTER → 2023-11-29 11:03 | Outpatient (BNVA) | payer MEDICARE, SELFPAY | PROVIDERS: PCP Family Medicine; Visit Provider Nurse Practitioner Family | DX: L81.4 Other melanin hyperpigmentation (principal); D22.61 Melanocytic nevi of right upper limb, including shoulder; L57.8 Other skin changes due to chronic exposure to nonionizing radiation; Z85.828 Personal history of other malignant neoplasm of skin; L82.1 Other seborrheic keratosis; L57.0 Actinic keratosis | CPT/HCPCS: 17000; 99213 ==

== ENCOUNTER 2023-12-02 10:53 | Inpatient (IN) | payer MEDICARE, SELFPAY ==
[2023-12-02] VITALS (10 sets, daily range): BP systolic 96–134; BP diastolic 56–87; PULSE 93–111; RESP 16–27; TEMP 36.6–36.9; O2SAT 87–98; BMI 27.9
--- NOTE | 2023-12-02 11:08 | W.ED.SOB ---
HPI - SOB/Dyspnea General: Chief Complaint: Shortness of Breath/Dyspnea Stated Complaint: Sob, N/V Time Seen by Provider: 12/02/23 11:08 History of Present Illness: HPI Narrative: 68-year-old male presents emergency department with complaints of having increased difficulty breathing for the previous 2 days. He states he feels some heaviness across his entire chest going from the middle of his chest to his left shoulder. He states he had a TAVR procedure September 2023 and has been doing well. He states he started having a nonproductive dry hacking cough approximately 1 week ago. He states that his primary care provider recently changed his medication from simvastatin to atorvastatin and he feels that he has had 2 episodes of nausea and vomiting after taking his atorvastatin. Associated symptoms: Reports chest pain Review of Systems General: Reports: 10 or more systems reviewed and unremarkable except in HPI and below Card: Reports: chest pain Resp: Reports: dyspnea and non-productive cough PFSH ED PFSH: Medical History (Updated 12/02/23 @ 16:03 by Cruz Fang MD) Chest pain History of pulmonary embolism Congestive heart failure History of nonmelanoma skin cancer Hypothalamic hypothyroidism Hypertension History of blood clots COPD (chronic obstructive pulmonary disease) History of pulmonary embolism Surgical History History of rotator cuff surgery Social History Smoking and tobacco/nicotine status: current every day tobacco/nicotine user Alcohol intake: never Substance/Drug Use: never Physical Exam Narrative: EXAM NARRATIVE: Constitutional: the patient appears well nourished and with normal development. Vital signs reviewed as documented. HENMT: Normocephalic, atraumatic. External ears normal appearance without drainage. Nose without drainage, normal appearance. Mucus membranes moist. Neck is supple, No jugular venous distension, trachea is midline, no appreciable carotid bruits. No lymphadenopathy. No meningeal signs. Flexion, extension and lateral rotation is without pain. Eyes: Pupils are equal, round, reactive to light and accommodation. No scleral icterus. Extra-ocular movement are intact. Thorax is symmetrical and with equal rise and fall with respirations. Resp: Coarse throughout, decreased bilaterally in the bases, intermittent expiratory wheezes. Cardio: Regular rate and rhythm. Positive S1, S2. No appreciable murmurs, rubs or gallops. GI: Abdominal exam reveals normal bowel sounds to all quadrants. No organomegaly. No obvious palpable masses noted. No hepatomegally appreciated. Soft, non-tender to palpation. Extremity: Extremities are non-edematous and both femoral and pedal pulses are 2+ and equal bilaterally. Moves all extremities well, sensation in all extremities. Neuro: Alert and oriented x4, person, place, time and situation. Cranial nerves II through XII are grossly intact, there is no focal neurological deficits that I can appreciate at present. Motor strength in the upper and lower extremities are equal and bilateral 5/5. Psych: Cooperative, calm, normal thought process, appropriate judgment. Skin: No lesions, rashes. No gross abnormalities noted. Back: Symmetrical, no obvious deformity, No CVA tenderness Course Vital Signs: Vital signs: Vital Signs Temperature 98.4 F 12/02/23 19:59 Pulse Rate 108 H 12/02/23 19:59 Respiratory Rate 27 H 12/02/23 19:59 Blood Pressure 96/56 12/02/23 19:59 Pulse Oximetry 94 12/02/23 19:59 Oxygen Delivery Me thod Room Air 12/02/23 19:59 Oxygen Flow Rate 2 12/02/23 14:40 MDM - SOB/Dyspnea Medical Decision Making Physical exam completed and documented, I will obtain CBC CMP and chest x-ray as well as serial cardiac enzymes and troponins for evaluation.Given the patient's need for increased supplemental oxygen as well as his history of COPD and malignancy I will contact the hospital physician to discuss admission of the patient for COPD and CHF exacerbation. Medical Records I reviewed the patient's medical records. Lab Data 12/02/23 11:33 12/02/23 11:33 Labs/Radiology: Radiology Impressions Chest X-Ray 12/02/23 11:11 IMPRESSION: Small bilateral pleural effusions. Otherwise, no obvious acute process identified. Chest CT 12/02/23 17:01 IMPRESSION: 1. Large bilateral pleural effusions. 2. Large pericardial effusion measuring up to at least 13 mm in thickness. 3. Coronary artery atherosclerotic calcifications. 4. Emphysematous changes. 5. Bilateral dependent atelectasis versus infiltrate. 6. T12 vertebral body chronic compression fracture without retropulsion of bony fragments. 7. Scattered prominent mediastinal lymph nodes measuring up to 15 mm, nonspecific. 8. Right apical 11 mm nodular airspace opacification with associated interstitial thickening. Consider non-emergent PET/CT, or tissue sampling.(Reference: Aron) COMMENTS: The presence of pulmonary emphysema on CT is an independent risk factor for lung cancer. In the absence of a history or active diagnosis of lung cancer, it is recommended that this patient with emphysema be evaluated for enrollment in a low dose CT lung cancer screening program. REFERENCES: Aron Loaiza, et al. Guidelines for Management of Incidental Pulmonary Nodules Detected on CT Images: From the Fleischner Society 2017. Radiology. 2017;284(1):228-243. Renal Ultrasound 12/02/23 17:01 IMPRESSION: 1. No acute findings. 2. Mild asymmetric right renal cortical thinning. Laboratory Results WBC 13.84 10^3/uL (3.29-11.43) H 12/02/23 11:33 RBC 3.31 10^6/uL (3.85-5.65) L 12/02/23 11:33 Hgb 9.50 g/dL (11.27-16.99) L 12/02/23 11:33 Hct 30.0 % (37-53) L 12/02/23 11:33 MCV 90.6 fl (82-101) 12/02/23 11:33 MCH 28.7 pg (27-33) 12/02/23 11:33 MCHC 31.7 g/dL (30-55) 12/02/23 11:33 RDW 14.1 % (12.1-15.1) 12/02/23 11:33 Plt Count 337 10^3/cmm (157-399) 12/02/23 11:33 MPV 10.5 fL (7.4-10.4) H 12/02/23 11:33 Neut % (Auto) 76.6 % 12/02/23 11:33 Lymph % (Auto) 11.6 % 12/02/23 11:33 [place] % (Auto) 9.5 % 12/02/23 11:33 Eos % (Auto) 0.9 % 12/02/23 11:33 Baso % (Auto) 0.4 % 12/02/23 11:33 Neut # (Auto) 10.59 10^3/uL (1.8-7.7) H 12/02/23 11:33 Lymph # (Auto) 1.6 10^3/uL (0.8-4.8) 12/02/23 11:33 [place] # (Auto) 1.3 10^3/uL (0.2-0.9) H 12/02/23 11:33 Eos # (Auto) 0.1 10^3/uL (0.0-0.8) 12/02/23 11:33 Baso # (Auto) 0.1 10^3/uL (0.0-0.1) 12/02/23 11:33 Nucleated RBC % (auto) 0.1 % 12/02/23 11:33 Nucleated RBCs # 0.0 /100WBC 12/02/23 11:33 PT 53.60 SECONDS (12.1-14.9) H 12/02/23 11:33 INR 5.68 (0.8-1.2) H* 12/02/23 11:33 Sodium 129 mmol/L (136-145) L 12/02/23 11:33 Potassium 3.8 mmol/L (3.5-5.1) 12/02/23 11:33 Chloride 92 mmol/L (98-107) L 12/02/23 11:33 Carbon Dioxide 20 mmol/L (22-29) L 12/02/23 11:33 Anion Gap 20.8 (5-19) H 12/02/23 11:33 BUN 47 mg/dL (8-23) H 12/02/23 11:33 Creatinine 2.5 mg/dL (0.7-1.2) H 12/02/23 11:33 GFR Calculation 25.7 mL/min (90-130) L 12/02/23 11:33 Glucose 483 mg/dL (65-115) H 12/02/23 11:33 Calculated Osmolality 302 mOsm/kg (285-295) H 12/02/23 11:33 Calcium 8.7 mg/dL (8.5-10.5) 12/02/23 11:33 Total Bilirubin 0.6 mg/dL (0.15-1.2) 12/02/23 11:33 AST 13 U/L (0-40) 12/02/23 11:33 ALT 13 U/L (0-41) 12/02/23 11:33 Alkaline Phosphatase 236 U/L (40-130) H 12/02/23 11:33 Troponin T Baseline 63 ng/L (0-15) H 12/02/23 11:33 Troponin T 120 Minute 55.39 ng/L (0-15) H 12/02/23 13:42 Delta Troponin T -7.61 ABS# (0-10) L 12/02/23 13:42 NT-Pro-B Natriuret Pep 6212 pg/mL (0-125) H 12/02/23 11:33 Total Protein 6.4 g/dL (6.6-8.7) L 12/02/23 11:33 Albumin 3.1 g/dL (3.5-5.2) L 12/02/23 11:33 Globulin 3.3 g/dL (1.3-4.6) 12/02/23 11:33 Influenza Type A Ag negative (Negative) 12/02/23 11:18 Influenza Type B Ag negative (Negative) 12/02/23 11:18 SARS-CoV-2 Ag (Rapid) negative (Negative) 12/02/23 11:18 All radiology interpretation(s) finalized by discharge EKG Data EKG 1: Interpretation: Twelve-lead EKG obtained at 1127 reviewed at 1130 demonstrates sinus tachycardia with a first-degree AV block, ventricular rate 107 bpm, MT interval 218 QRS duration 101 QT 321 QTc [address] elevation or depression to demonstrate acute ischemia or infarction at present. EKG 2: Interpretation: Twelve-lead EKG obtained at 1315 reviewed at 1351 demonstrates sinus tachycardia with first-degree AV block with a ventricular rate of 104 bpm, MT interval 226, QRS duration 97 QT 394 QTc [address] elevation or depression to demonstrate acute ischemia or infarction at present. Discharge Plan Discharge Patient Disposition: Admitted As Inpatient Admit Provider: Cruz Fang Clinical Impression: Acute hyponatremia, Acute dyspnea Acute exacerbation of CHF (congestive heart failure) Qualifiers: Heart failure type: unspecified Qualified Code(s): I50.9 - Heart failure, unspecified Acute on chronic kidney failure Qualifiers: Acute renal failure type: unspecified Chronic kidney disease stage: unspecified stage Qualified Code(s): N17.9 - Acute kidney failure, unspecified Condition: Stable Coding Level of Care Code ED Chief Accountant for g Alyssia
--- NOTE | 2023-12-02 11:11 | XRR_ITS ---
PROCEDURE INFORMATION: Exam: XR Chest Exam date and time: 12/02/2023 11:44 AM Age: 68 years old Clinical indication: Cough and dyspnea and shortness of breath; Prior surgery; Surgery date: 1-6 months; Patient HX: Increased SOB; Copd; Pulmonary hypertension; Avr x 2mo ago TECHNIQUE: Imaging protocol: Radiologic exam of the chest. Views: 2 views. COMPARISON: CR XR chest 1V portable [id number] 11/27/2023 11:55 AM FINDINGS: Lungs: There may be very minimal compressive atelectasis in the lung bases adjacent to small bilateral pleural effusions. Remaining lung zones appear clear. Pleural spaces: See Lungs finding. Heart/Mediastinum: Chronic cardiomegaly. Aortic valve stent is present. No significant pulmonary vascular congestion. Bones/joints: Chronic anterior wedge compression deformity of T12, previously reported. XR/XR chest 2V* [id number] IMPRESSION: Small bilateral pleural effusions. Otherwise, no obvious acute process identified.
--- NOTE | 2023-12-02 11:12 | ECG_ITS ---
[facility] Test Date: 2023-12-02 Pat Name: Guy Wiseman Department: Room: Gender: Male Staffing Account Manager: : 1955 Requested By: Yoshi Garcia Order Number: [id number] Valeria MD: Franklin Nuno M.D. Measurements Intervals [place] Rate: 107 P: 36 [place]: 218 QRS: 56 QRSD: 101 T: 75 QT: 321 QTc: 429 Interpretive Statements SINUS TACHYCARDIA WITH FIRST DEGREE AV BLOCK POSSIBLE LEFT ATRIAL ENLARGEMENT [-0.1mV P-WAVE IN V1/V2] PROBABLE ANTEROLATERAL MYOCARDIAL INFARCTION , OF INDETERMINATE AGE [35 ms Q WAVE IN I/aVL/V3-V6] Compared to ECG 11/27/2023 14:01:24 Sinus rhythm no longer present Myocardial infarct finding still present Electronically Signed On 12-03-2023 7:54:58 WARDROBE ATTENDANT by Franklin Nuno M.D. [id number]
[2023-12-02 11:45] LABS: Influenza A by IFA negative (Negative); Influenza B by IFA negative (Negative)
[2023-12-02 12:00] LABS: Basophils # 0.1 10^3/uL (0.0-0.1); Basophils % 0.4 %; Eosinophils # 0.1 10^3/uL (0.0-0.8); Eosinophils % 0.9 %; Lymphocytes # 1.6 10^3/uL (0.8-4.8); Lymphocytes % 11.6 %; Mean Corpuscular HGB Conc 31.7 g/dL (30-55); Mean Corpuscular Hemoglobin 28.7 pg (27-33); Mean Corpuscular Volume 90.6 fl (82-101); Mean Platelet Volume 10.5 fL (7.4-10.4); Monocytes # 1.3 10^3/uL (0.2-0.9); Monocytes % 9.5 %; Neutrophils # 10.59 10^3/uL (1.8-7.7); Neutrophils % 76.6 %; Nucleated Red Blood Cells % 0.1 %; Platelet Count 337 10^3/cmm (157-399); Red Blood Count 3.31 10^6/uL (3.85-5.65); Red Cell Distribution Width 14.1 % (12.1-15.1); White Blood Count 13.84 10^3/uL (3.29-11.43)
[2023-12-02 12:02] LABS: SARS Covid-2 Antigen negative (Negative)
[2023-12-02 12:16] LABS: Troponin(5th) Baseline 63 ng/L (0-15)
[2023-12-02 12:26] LABS: INR 5.68 (0.8-1.2)
[2023-12-02 12:44] LABS: Alanine Aminotransferase 13 U/L (0-41); Albumin Level 3.1 g/dL (3.5-5.2); Alkaline Phosphatase 236 U/L (40-130); Aspartate Amino Transferase 13 U/L (0-40); Blood Urea Nitrogen 47 mg/dL (8-23); Calcium 8.7 mg/dL (8.5-10.5); Carbon Dioxide 20 mmol/L (22-29); Globulin 3.3 g/dL (1.3-4.6); Glomerular Filtration Rate 25.7 mL/min (90-130); Glucose 483 mg/dL (65-115); NT Pro B Type Natriuretic Pept 6212 pg/mL (0-125); Total Bilirubin 0.6 mg/dL (0.15-1.2); Total Protein 6.4 g/dL (6.6-8.7)
--- NOTE | 2023-12-02 13:12 | ECG_ITS ---
[facility] Test Date: 2023-12-02 Pat Name: Guy Wiseman Department: Room: Gender: Male Auto Hiker: : 1955 Requested By: Yoshi Garcia Order Number: [id number] Shaw MD: Franklin Nuno M.D. Measurements Intervals [place] Rate: 104 P: 43 [place]: 226 QRS: 46 QRSD: 97 T: 63 QT: 394 QTc: 519 Interpretive Statements SINUS TACHYCARDIA WITH FIRST DEGREE AV BLOCK POSSIBLE LEFT ATRIAL ENLARGEMENT [-0.1mV P-WAVE IN V1/V2] POSSIBLE ANTERIOR MYOCARDIAL INFARCTION , OF INDETERMINATE AGE [30 ms Q WAVE IN V3/V4, OR R < 0.2 mV IN V4] ST ELEVATION, CONSIDER INFERIOR INJURY [MARKED ST ELEVATION W/O NORMALLY INFLECTED T-WAVE IN II/aVF] ACUTE CT Compared to ECG 12/02/2023 11:27:21 ST (T wave) deviation now present Myocardial infarct finding still present Electronically Signed On 12-03-2023 8:03:21 CORKING MACHINE OPERATOR by Franklin Nuno M.D. [id number]
[2023-12-02 13:16] LABS: Anion Gap 20.8 (5-19); Chloride 92 mmol/L (98-107); Osmolality Calculated 302 mOsm/kg (285-295); Potassium 3.8 mmol/L (3.5-5.1); Sodium 129 mmol/L (136-145)
[2023-12-02 14:34] LABS: Troponin 5 2HR 55.39 ng/L (0-15)
[2023-12-02 14:35] LABS: Troponin 5 2HR Delta -7.61 ABS# (0-10)
--- NOTE | 2023-12-02 15:57 | P.HP_ITS ---
Providers/Chief Complaint 2 Admitting Physician: Cruz Fang MD Primary Care Provider: Patrick Nick MD Chief Complaint: Sob, N/V History of Present Illness Guy Wiseman is a 68 year old male history of pulmonary hypertension, on adempas, history of aortic valve replacement at [place] on Coumadin, history of CHF, on Bumex, history of type 2 diabetes mellitus on insulin, COPD, hypothyroidism, who presents to [facility] due to chest pain and shortness of breath. Patient tells me that he was seen at [place] in September when he had aortic valve replacement he is followed up since then there is been no issues with his aortic valve replacement, but he started develop fluid overload he was placed on Bumex, he has been managed by cardiothoracic surgeon at [facility]. However he continues to have shortness of breath with rest and now progressing exertion, also has chest pain substernal, nonradiating, no lightheadedness, dizziness, no diaphoresis,. Patient reports shortness of breath with exertion, progressive shortness of breath no orthopnea, no paroxysmal nocturnal dyspnea, denies a cough, does have a history of COPD, no sick contacts, no calf pain, no calf swelling, no hemoptysis, he tells me that his cardiothoracic surgeon has been worried about his kidney function, he has never seen a marketing and outreach coordinator Review of Systems 2 Const: Denies: fever(s) Card: Reports: chest pain Resp: Reports: dyspnea GI: Denies: abdominal pain : Denies: flank pain Musc: Denies: back pain Neuro: Denies: headache(s) Medications/Allergies Home Medications Medication Instructions Recorded Confirmed Last Taken Type aspirin 81 mg tablet,delayed 81 mg PO QAM 03/23/21 12/02/23 12/01/23 History release simvastatin 40 mg tablet 40 mg PO DAILY #30 tabs 03/23/21 12/02/23 12/01/23 Rx warfarin 5 mg tablet 5 mg PO DIRECTED 03/23/21 12/02/23 12/01/23 History albuterol sulfate 90 mcg/actuation 2 inh inhalation Q6H PRN shortness 07/26/22 12/02/23 07/13/23 Rx aerosol inhaler of breath or wheezing #8 grams warfarin 7.5 mg tablet 7.5 mg PO DIRECTED 12/13/22 12/02/23 11/26/23 History potassium chloride 10 mEq 10 meq PO DAILY PRN only take 12/17/22 12/02/23 12/01/23 Rx tablet,extended release with bumex #60 tabs Cam boot to left #1 ea 05/15/23 12/02/23 07/13/23 Rx bumetanide 1 mg tablet 2 mg PO DAILY 11/27/23 12/02/23 12/01/23 History insulin human U-100 NPH-regulr See Rx Instructions .Route .COMPLEX 11/27/23 12/02/23 12/01/23 History 70-30 mix 100 unit/mL subcutaneous susp (Humulin 70/30 U-100 Insulin) levothyroxine 112 mcg tablet 112 mcg PO DAILY 11/27/23 12/02/23 12/01/23 History riociguat 2.5 mg tablet (Adempas) 2.5 mg PO TID 11/27/23 12/02/23 12/01/23 History Allergies Allergy/AdvReac Type Severity Reaction Status Date / Time No Known Allergies Allergy Verified 11/27/23 11:16 PFSH Acute 2 PFSH: Medical History (Updated 12/02/23 @ 16:03 by Cruz Fang MD) Chest pain History of pulmonary embolism Congestive heart failure History of nonmelanoma skin cancer Hypothalamic hypothyroidism Hypertension History of blood clots COPD (chronic obstructive pulmonary disease) History of pulmonary embolism Surgical History History of rotator cuff surgery Social History Smoking and tobacco/nicotine status: current every day tobacco/nicotine user Alcohol intake: never Substance/Drug Use: never Vitals/I&O/Wt Last Vital Signs Temp 97.9 F 12/02/23 15:22 Pulse 103 H 12/02/23 15:22 Resp 21 H 12/02/23 15:22 BP 134/87 12/02/23 15:22 Pulse Ox 92 12/02/23 15:22 O2 Del Method Nasal Cannula 12/02/23 14:40 O2 Flow Rate 2 12/02/23 14:40 Weight last 48 hrs Weight 73.936 kg Physical Exam 2 Const: COMMON NORMALS: no acute distress and patient oriented x3 HENMT: COMMON NORMALS: normocephalic HEAD & SCALP: normocephalic Eye: COMMON NORMALS: Equal, round and reactive pupils present and EOMs intact bilaterally Neck/C-Spine: COMMON NORMALS: no JVD Lymph: LYMPHATIC: no lymphadenopathy noted Resp: COMMON NORMALS: normal respiratory effort, No retractions and No use of accessory muscles AUSCULTATION: crackles Cardio: COMMON NORMALS: regular rate, regular rhythm, S1 normal heart sound present and S2 normal heart sound present RATE: regular rate RHYTHM: r egular rhythm HEART SOUNDS: S1 normal heart sound present and S2 normal heart sound present GI: COMMON NORMALS: Normal to inspection, nondistended, normoactive bowel sounds present, Soft to palpation and non-tender : COMMON NORMALS: Yes no CVA tenderness Extremity: COMMON NORMALS: no calf tenderness and no pedal edema Neuro: COMMON NORMALS: patient oriented x3, CN's II-XII intact bilaterally, moves all extremities and no focal motor deficits Psych: COMMON NORMALS: mental status grossly normal Data 12/02/23 11:33 12/02/23 11:33 A&P Assessment and plan (1) Acute exacerbation of CHF (congestive heart failure): Qualifiers: Heart failure type: unspecified Qualified Code(s): I50.9 - Heart failure, unspecified (2) Pulmonary hypertension: (3) Acute on chronic kidney failure: Qualifiers: Acute renal failure type: unspecified Chronic kidney disease stage: u nspecified stage Qualified Code(s): N17.9 - Acute kidney failure, unspecified; N18.9 - Chronic kidney disease, unspecified (4) Acute hyponatremia: (5) Chest pain: (6) Supratherapeutic INR: (7) Acute hypoxemic respiratory failure: Plan Acute hypoxic respiratory failure -Likely secondary to CHF exacerbation, ? Flu and COVID-negative, ? Chest x-ray no focal pneumonia, ? Elevated BNP, elevated troponins, ? Plan to ? Bumex 1 mg every 12 hours?monitor serum sodium, creatinine, monitor potassium ? Will order abg -Does have a history of pulm hypertension, continue home adempas -Monitor respiratory status closely -Will order cardiac echo -CT of the chest -Full code -SCDs for DVT prophylaxis, supratherapeutic INR Chest pain -Serial EKGs, serial troponins, telemetry monitoring -Cardiac echo Supratherapeutic INR, hold Coumadin, recheck INR tomorrow History of TAVR, at [place], cardiac echo, on Coumadin, History of atrial fibrillation, on Coumadin, Type 2 diabetes mellitus, moderate dose sliding scale Attestations 2 Medical Necessity Statement*: Patient requires hospitalization, inpatient, greater than 2 minutes, for acute systolic CHF exacerbation, acute hypoxia, NSTEMI, chest pain, GT, hyponatremia Diagnoses Acute exacerbation of CHF (congestive heart failure) I50.9 Heart failure type: unspecified Pulmonary hypertension I27.20 Acute on chronic kidney failure N17.9; N18.9 Acute renal failure type: unspecified Chronic kidney disease stage: unspecified stage Acute hyponatremia E87.1 Chest pain R07.9 Supratherapeutic INR R79.1 Acute hypoxemic respiratory failure J96.01
[2023-12-02 16:06] LABS: ABG PCO2 32.6 mmHg (35-45); ABG PH Result 7.45 (7.35-7.45); Blood Gas Allen Test Pos; Blood Gas Operator Identificat WALCI; Blood Gas Sample Site Radial, right; Blood Gas Sample Type Arterial; HCO3 ABG 22.6 mmol/L (22-26); Oxygen Device NC; PO2 ABG 60.2 mmHg (80.0-100.0)
--- NOTE | 2023-12-02 16:44 | ECG_ITS ---
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 Measurements Intervals [place] Rate: 106 P: 40 LA: 186 QRS: 51 QRSD: 97 T: 38 QT: 344 QTc: 459 Interpretive Statements SINUS TACHYCARDIA WITH OCCASIONAL SUPRAVENTRICULAR PREMATURE COMPLEXES PROBABLE ANTEROLATERAL MYOCARDIAL INFARCTION , OF INDETERMINATE AGE [35 ms Q WAVE IN I/aVL/V3-V6] Compared to ECG 12/02/2023 13:50:54 First degree AV block no longer present ST (T wave) deviation no longer present Myocardial infarct finding still present Electronically Signed On 12-03-2023 8:01:38 SWITCHBOARD OPERATOR SUPERVISOR by Franklin Nuno M.D. [email or web address] ([email or web address] va medical [email or web address] hospitals [id number]
--- NOTE | 2023-12-02 17:01 | USR_ITS ---
PROCEDURE INFORMATION: Exam: US Retroperitoneal; Complete; Kidneys and Bladder Exam date and time: 12/02/2023 5:52 PM Age: 68 years old Clinical indication: Condition or disease; Kidney or ureter condition; Other: Dylon TECHNIQUE: Imaging protocol: Real-time ultrasound of the retroperitoneum with image documentation. Complete exam focused on the kidneys and bladder. COMPARISON: CT abdomen pelvis w con* [id number] 05/23/2021 5:27 PM FINDINGS: Right kidney: Measures 11.2 cm in length and shows mild asymmetric cortical thinning. No stones. No hydronephrosis. Left kidney: Normal. No stones. No hydronephrosis. Measures 11.0 cm in length. Aorta: Interrogated aorta shows normal caliber. Urinary bladder: Somewhat underdistended, limiting evaluation. Prostate: Normal in size, measuring 4.2 x 3.0 x 4.0 cm for a calculated volume of 26 cc. US/US renal BI* [id number] IMPRESSION: 1. No acute findings. 2. Mild asymmetric right renal cortical thinning.
--- NOTE | 2023-12-02 17:01 | CTR_ITS ---
PROCEDURE INFORMATION: Exam: CT Chest Without Contrast; Diagnostic Exam date and time: 12/02/2023 8:21 PM Age: 68 years old Clinical indication: Shortness of breath; Prior surgery; Surgery date: 1-6 months; Surgery type: Tavr in September 2023. Patient HX: C/O SOB. History of chf and copd. TECHNIQUE: Imaging protocol: Diagnostic computed tomography of the chest without contrast. Radiation optimization: All CT scans at this facility use at least one of these dose optimization techniques: automated exposure control; mA and/or kV adjustment per patient size (includes targeted exams where dose is matched to clinical indication); or iterative reconstruction. COMPARISON: CR (CHEST, ) 12/02/2023 11:44 AM RADIATION DOSE METRICS: Total DLP (mGy-cm): 461.38 FINDINGS: Lungs: Emphysematous changes. Bilateral dependent atelectasis versus infiltrate. Right apical 11 mm nodular airspace opacification with associated interstitial thickening. Pleural spaces: Large bilateral pleural effusions. Heart: Large pericardial effusion measuring up to at least 13 mm in thickness. Coronary arteries: Coronary artery atherosclerotic calcifications. Lymph nodes: Scattered prominent mediastinal lymph nodes measuring up to 15 mm, nonspecific. Vasculature: Unremarkable. No aortic aneurysm. Bones/joints: T12 vertebral body chronic compression fracture without retropulsion of bony fragments. Soft tissues: Unremarkable. CT/CT chest wo con [id number] IMPRESSION: 1. Large bilateral pleural effusions. 2. Large pericardial effusion measuring up to at least 13 mm in thickness. 3. Coronary artery atherosclerotic calcifications. 4. Emphysematous changes. 5. Bilateral dependent atelectasis versus infiltrate. 6. T12 vertebral body chronic compression fracture without retropulsion of bony fragments. 7. Scattered prominent mediastinal lymph nodes measuring up to 15 mm, nonspecific. 8. Right apical 11 mm nodular airspace opacification with associated interstitial thickening. Consider non-emergent PET/CT, or tissue sampling.(Reference: Aron) COMMENTS: The presence of pulmonary emphysema on CT is an independent risk factor for lung cancer. In the absence of a history or active diagnosis of lung cancer, it is recommended that this patient with emphysema be evaluated for enrollment in a low dose CT lung cancer screening program. REFERENCES: Aron Loaiza, et al. Guidelines for Management of Incidental Pulmonary Nodules Detected on CT Images: From the Fleischner Society 2017. Radiology. 2017;284(1):228-243.
[2023-12-02 17:51] LABS: Lactic Sepsis W/Reflex 1.8 mmol/L (0.5-2.2)
[2023-12-02 17:53] LABS: Troponin 5 6HR 56.36 ng/L (0-15)
[2023-12-02 17:55] LABS: Glucose Point of Care 384 mg/dL (70-110)
[2023-12-02 18:08] LABS: Procalcitonin 0.53 ng/mL (0-0.5); Thyroid Stimulating Hormone 2.23 uIU/mL (0.27-4.20)
[2023-12-02 18:19] LABS: C Reactive Protein 254.1 mg/L (0.0-4.9); Chol HDL Ratio 3.25 mg/dL (1.0-5.00); Cholesterol 91 mg/dL (0-200); Creatine Phosphokinase 94 U/L (39-308); HDL Cholesterol 28 mg/dL (60-100); LDL Cholesterol Calculated 34 mg/dL (50-129); LDL HDL Ratio 1.21 RATIO (0.00-3.22); Triglycerides 143 mg/dL (0-150)
[2023-12-02] MEDS: insulin lispro 100 unit/1 mL SUBCUT ×2 (19:01→21:40)
[2023-12-02] MEDS: pantoprazole 40 mg SDV IVP (19:01)
[2023-12-02] MEDS: albumin 25 G/100 ML BAG 60 G IV (19:02)
[2023-12-02] MEDS: bumetanide 0.25 mg/mL SDV 4 mL 1 MG IVP (19:10)
[2023-12-02 21:10] LABS: Glucose Point of Care 326 mg/dL (70-110)
[2023-12-02] MEDS: cyclobenzaprine 10 mg Tablet 5 MG PO (21:38)
[2023-12-02 21:51] LABS: Add Urine Microscopic? YES; Bilirubin Urine Neg (Negative); Blood Urine 3+ (Negative); Glucose Urine UA 4+ (Normal); Ketones Urine Negative (Negative); Leukocyte Esterase Urine Negative (Negative); Nitrate Urine Negative (Negative); Protein Urine 2+ (Negative); Specific Gravity, Urine 1.015 (1.005-1.030); Urine Appearance Hazy (CLEAR); Urine Color Yellow (Yellow); Urobilinogen Urine Norm (Negative); pH Urine 5 (5-7)
[2023-12-02 21:53] LABS: Amorphous Sediment Urine 1+ /hpf; Bacteria Urine 1+ /hpf; Coarse Granular Casts Urine 0-4 /lpf; Fine Granular Casts Urine 0-4 /lpf; Hyaline Casts Urine 0-4 /lpf; Mucus Urine TRACE /hpf; Squamous Epithelial Cell Urine 0-4 /hpf (0-5)
[2023-12-02 21:54] LABS: Add Urine Culture? Yes
[2023-12-02] MEDS: morphine 4 mg/mL SDV 1 mL 2 MG IVP (22:54)
[2023-12-02 23:14] LABS: Adenovirus Not Detected (NOT DETECT); Chlamydia Pneumoniae Not Detected (NOT DETECT); Coronavirus 229E,HKU1,NL63,OC4 Not Detected (NOT DETECT); Human Metapneumovirus Not Detected (NOT DETECT); Human Rhinovirus/Enterovirus Not Detected (NOT DETECT); Influenza A Not Detected (NOT DETECT); Influenza A H1 Not Detected (NOT DETECT); Influenza A H1-2009 Not Detected (NOT DETECT); Influenza A H3 Not Detected (NOT DETECT); Influenza B Not Detected (NOT DETECT); Mycoplasma Pneumoniae Not Detected (NOT DETECT); Parainfluenza Virus Type 1 Not Detected (NOT DETECT); Parainfluenza Virus Type 2 Not Detected (NOT DETECT); Parainfluenza Virus Type 3 Not Detected (NOT DETECT); Parainfluenza Virus Type 4 Not Detected (NOT DETECT); Respiratory Syncytial Virus A Not Detected (NOT DETECT); Respiratory Syncytial Virus B Not Detected (NOT DETECT); SARS-COV-2 Not Detected (NOT DETECT)
[2023-12-03] VITALS (13 sets, daily range): BP systolic 106–131; BP diastolic 57–72; PULSE 94–106; RESP 18–23; TEMP 36.7–37.2; O2SAT 87–93; BMI 27.9
[2023-12-03 02:31] LABS: Basophils # 0.1 10^3/uL (0.0-0.1); Basophils % 0.4 %; Eosinophils # 0.2 10^3/uL (0.0-0.8); Eosinophils % 1.8 %; Hematocrit 25.6 % (37-53); Lymphocytes # 2.1 10^3/uL (0.8-4.8); Lymphocytes % 16.2 %; Mean Corpuscular HGB Conc 32.8 g/dL (30-55); Mean Corpuscular Hemoglobin 29.2 pg (27-33); Mean Corpuscular Volume 88.9 fl (82-101); Mean Platelet Volume 10.5 fL (7.4-10.4); Monocytes # 1.5 10^3/uL (0.2-0.9); Monocytes % 11.2 %; Neutrophils # 9.16 10^3/uL (1.8-7.7); Neutrophils % 69.6 %; Nucleated Red Blood Cells # 0.1 /100WBC; Nucleated Red Blood Cells % 0.5 %; Platelet Count 284 10^3/cmm (157-399); Red Blood Count 2.88 10^6/uL (3.85-5.65); Red Cell Distribution Width 14.2 % (12.1-15.1); White Blood Count 13.14 10^3/uL (3.29-11.43)
[2023-12-03 03:19] LABS: Alanine Aminotransferase 9 U/L (0-41); Aspartate Amino Transferase 14 U/L (0-40); Calcium 9.1 mg/dL (8.5-10.5); Carbon Dioxide 24 mmol/L (22-29); Glucose 106 mg/dL (65-115); Magnesium 2.3 mg/dL (1.7-2.3); Osmolality Calculated 292 mOsm/kg (285-295); Phosphorus 4.1 mg/dL (2.5-4.5); Total Bilirubin 0.5 mg/dL (0.15-1.2)
[2023-12-03 03:22] LABS: INR 6.27 (0.8-1.2)
[2023-12-03 03:40] LABS: Blood Urea Nitrogen 54 mg/dL (8-23); Chloride 95 mmol/L (98-107); Glomerular Filtration Rate 22.6 mL/min (90-130); Sodium 134 mmol/L (136-145); Total Protein 6.3 g/dL (6.6-8.7)
[2023-12-03 03:41] LABS: Albumin Level 3.3 g/dL (3.5-5.2); Alkaline Phosphatase 206 U/L (40-130)
[2023-12-03 03:46] LABS: NT Pro B Type Natriuretic Pept 7530 pg/mL (0-125)
[2023-12-03] MEDS: morphine 4 mg/mL SDV 1 mL 2 MG IVP ×2 (04:36→14:41)
[2023-12-03] MEDS: bumetanide 0.25 mg/mL SDV 4 mL 1 MG IVP ×2 (04:37→17:55)
[2023-12-03] MEDS: albumin 25 G/100 ML BAG 60 G IV (04:40)
[2023-12-03 05:30] LABS: Glucose Point of Care 227 mg/dL (70-110)
[2023-12-03] MEDS: aspirin 81 mg EC Tablet PO (05:40)
[2023-12-03] MEDS: insulin lispro 100 unit/1 mL SUBCUT ×4 (09:16→21:24)
[2023-12-03] MEDS: levothyroxine 112 mcg Tablet PO (09:17)
[2023-12-03] MEDS: atorvastatin 40 mg Tablet 20 MG PO (09:17)
[2023-12-03 11:27] LABS: Glucose Point of Care 255 mg/dL (70-110)
--- NOTE | 2023-12-03 14:06 | USCV_ITS ---
Guy Wiseman Age: 68 Gender: M : 1955 Exam Date: 12/03/2023 19:33 Ordering Phys: Freeman Rodriguez MD Technologist: LASHA [place] [facility] [place]ication: CHF, pericardial effusion, hx COPD, hx HTN, hx pulm emboli, long-term smoker continues smoking, s/p TAVR 10/08/2023 BP: 118 / 70 HR: 105 Rhythm: mostly sinus rhythm, but some Atrial fibrillation Technical Quality: Adequate MEASUREMENTS (Male / Female) Normal Values 2D ECHO LV Diastolic Diameter PLAX 3.5 cm 4.2 - 5.9 / 3.9 - 5.3 cm LV Systolic Diameter PLAX 2.3 cm IVS Diastolic Thickness 1.2 cm 0.6 - 1.0 / 0.6 - 0.9 cm IVS Systolic Thickness 1.3 cm LVPW Diastolic Thickness 1.0 cm 0.6 - 1.0 / 0.6 - 0.9 cm LVPW Systolic Thickness 1.3 cm LVOT Diameter 2.0 cm LV Ejection Fraction 2D Teich 64.5 % LV Ejection Fraction MOD 2C 59.4 % LV Ejection Fraction 2C AL 59.1 % LA Diameter 3.1 cm LA Width 3.8 cm LA Height 5.2 cm RA Width 3.4 cm RA Height 4.7 cm Aorta at Sinotubular Diameter 1.8 cm IVC Diameter 2.5 cm M-MODE Aortic Annulus Diameter 2.5 cm LA Ao Ratio MM 1.3 MV E Point Septal Separation 0.5 cm DOPPLER AV Peak Velocity 155.0 cm/s LVOT Peak Velocity 94.0 cm/s AV Area Cont Eq vti 2.1 cm squared AV Area Cont Eq pk 1.8 cm squared MV Peak Velocity 132.0 cm/s MV Area PHT 3.5 cm squared Mitral E to A Ratio 0.8 MV E' Velocity 61.5 cm/s Mitral E to MV E' Ratio 17.5 Mitral E to LV E' Lateral Ratio 18.6 Mitral E to LV E' Septal Ratio 16.5 TR Peak Velocity 281.0 cm/s TR Peak Gradient 31.6 mmHg TV Peak E Velocity 86.0 cm/s Right Atrial Pressure 10.0 mmHg Pulmonary Artery Systolic Pressu 41.6 mmHg PV Peak Velocity 99.0 cm/s RV Acceleration Time 0.1 s RV Ejection Time 0.4 s RV AcT/ET 0.2 FINDINGS Left Ventricle Normal left ventricular size and systolic function, EF 59 %. No regional wall motion abnormalities. Grade I/IV diastolic dysfunction (abnormal relaxation filling pattern), normal to mildly elevated filling pressures. Right Ventricle Mildly dilated right ventricle. Some thickening of the right ventricular free wall. Possibly normal ejection fraction . Right Atrium The right atrium is normal in size. Left Atrium Mildly increased left atrial size. Mitral Valve Thickened mitral valve. Moderate mitral annular calcification. Mild mitral valve regurgitation. Aortic Valve The bioprosthetic valve the aortic position appears to be well- seated. Tricuspid Valve Trace to mild tricuspid valve regurgitation. Pulmonic Valve Trace pulmonary valve regurgitation. The main pulmonary artery appears to be mildly dilated Pericardium At least moderate pericardial effusion. Aorta Normal aortic annulus size. IVC Normal IVC dimension with <50% respiratory change of the inferior vena cava. CONCLUSIONS Normal left ventricular size and systolic function, EF 59 %. No regional wall motion abnormalities. Grade I/IV diastolic dysfunction (abnormal relaxation filling pattern), normal to mildly elevated filling pressures. Mildly dilated right ventricle. Some thickening of the right ventricular free wall. Possibly normal ejection fraction . Mildly increased left atrial size. Thickened mitral valve. Moderate mitral annular calcification. Mild mitral valve regurgitation. Bioprosthetic valve the aortic position appears to be well- seated with a peak velocity 1.55 across the valve. Valve area of 2.1 cm squared Trace to mild tricuspid valve regurgitation. Estimated pulmonary artery peak systolic pressure of 42 mmHg At least moderate pericardial effusion. Compared to the study from 12/14/2022, the aortic valve appears to have replaced. Pericardial effusion appears to be new Dr Patrice Lopez MD [facility] (Electronically Signed) Final Date: 04 December 2023 09:18 S
[2023-12-03 17:02] LABS: Glucose Point of Care 190 mg/dL (70-110)
[2023-12-03] MEDS: pantoprazole 40 mg SDV IVP (17:55)
[2023-12-03 21:20] LABS: Glucose Point of Care 245 mg/dL (70-110)
--- NOTE | 2023-12-03 21:54 | P.PN_ITS ---
Subjective 2 Subjective: Denies chest pain or pressure. No coughing. Vitals/I&O/Wt Last Vital Signs Temp 99.0 F 12/03/23 20:00 Pulse 105 H 12/03/23 20:00 Resp 18 12/03/23 20:00 BP 129/71 12/03/23 20:00 Pulse Ox 87 L 12/03/23 20:00 O2 Del Method Nasal Cannula 12/03/23 20:00 O2 Flow Rate 2 12/03/23 07:54 12/03/23 12/03/23 12/03/23 06:59 14:59 22:59 Intake Total 580 / 580 Output Total 0 / 0 110 / 110 100 / 210 Balance 0 / 100 470 / 470 -100 / 370 Weight last 48 hrs Weight 73.936 kg Weight 73.936 kg Weight 73.936 kg Physical Exam 2 Narrative: Sitting up in bed. Accompanied by life partner. Const: COMMON NORMALS: patient oriented x3 and alert GENERAL APPEARANCE: c ooperative ORIENTATION/CONSCIOUSNESS: Yes awake HENMT: COMMON NORMALS: oropharynx normal Neck/C-Spine: COMMON NORMALS: no JVD Resp: COMMON NORMALS: normal respiratory effort AUSCULTATION: diminished lung sounds bilateral in the lower lung perera Cardio: COMMON NORMALS: no JVD, regular rhythm, S1 normal heart sound present, S2 normal heart sound present and No murmurs present (Cardio) RHYTHM: regular rhythm HEART SOUNDS: S1 normal heart sound present and S2 normal heart sound present GI: COMMON NORMALS: Normal to inspection, nondistended, normoactive bowel sounds present, Soft to palpation and non-tender PALPATION: Yes Soft to palpation Extremity: COMMON NORMALS: no joint enlargement GENERAL: Yes edema (1+) Neuro: COMMON NORMALS: patient oriented x3 and moves all extremities S ENSORIUM/ORIENTATION: Yes alert Skin: COMMON NORMALS: no rashes or lesions noted GENERAL SKIN EXAM: no rashes or lesions noted Data 12/03/23 01:55 12/03/23 01:55 A&P Assessment and plan (1) Acute exacerbation of CHF (congestive heart failure): Qualifiers: Heart failure type: unspecified Qualified Code(s): I50.9 - Heart failure, unspecified (2) Pulmonary hypertension: (3) Acute on chronic kidney failure: Qualifiers: Acute renal failure type: unspecified Chronic kidney disease stage: u nspecified stage Qualified Code(s): N17.9 - Acute kidney failure, unspecified; N18.9 - Chronic kidney disease, unspecified (4) Acute hyponatremia: (5) Chest pain: (6) Supratherapeutic INR: (7) Acute hypoxemic respiratory failure: Plan Pericardial effusion: Discussed with him and his life partner. Will check TTE. Caution with diuresis. Will not increase Bumex at this time. Reviewed blood pressures, not hypotensive so far. Acute hypoxic respiratory failure: Reviewed RICKEY, vitals. Not in negative balance, however, with pericardial effusion will not increase diuretics for now. Assess TTE. Reassess renal function, chemistry, at risk of electrolyte abnormality. Reassess. Monitor on telemetry. Reviewed CT chest. Also noted pleural effusions. Warfarin has been on hold. Takes warfarin due to past history of DVT. -Likely secondary to CHF exacerbation, ? Flu and COVID-negative, ? Chest x-ray no focal pneumonia, ? Elevated BNP, elevated troponins, -Does have a history of pulm hypertension -Monitor respiratory status closely -CT of the chest reviewed -Full code -SCDs for DVT prophylaxis, supratherapeutic INR. Warfarin on hold. Follow-up INR requested. Chest pain -Serial EKGs, serial troponins, telemetry monitoring -Cardiac echo requested Supratherapeutic INR, hold Coumadin, recheck INR tomorrow History of TAVR, at [place] in September, cardiac echo, on aspirin, Coumadin on hold History of atrial fibrillation, on Coumadin, currently on hold Type 2 diabetes mellitus, moderate dose sliding scale. Reviewed blood glucose, as low as 106. Change diet to consistent carb. Pulmonary hypertension: Restarted home Adempas. Attestations 2 Medical Necessity Statement*: Continue admission for assessment management of decompensated CHF, pericardial effusion, pleural effusions. Diagnoses Acute exacerbation of CHF (congestive heart failure) I50.9 Heart failure type: unspecified Pulmonary hypertension I27.20 Acute on chronic kidney failure N17.9; N18.9 Acute renal failure type: unspecified Chronic kidney disease stage: unspecified stage Acute hyponatremia E87.1 Chest pain R07.9 Supratherapeutic INR R79.1 Acute hypoxemic respiratory failure J96.01
[2023-12-03] MEDS: RIOCIGUAT 2.5 MG 2.5 EACH PO (23:31)
[2023-12-04] VITALS (10 sets, daily range): BP systolic 92–137; BP diastolic 53–69; PULSE 97–111; RESP 18–23; TEMP 36.7–37.4; O2SAT 89–92
[2023-12-04 04:40] LABS: Basophils % 0.3 %; Eosinophils # 0.3 10^3/uL (0.0-0.8); Eosinophils % 2.4 %; Hematocrit 27.2 % (37-53); Lymphocytes # 1.9 10^3/uL (0.8-4.8); Lymphocytes % 16.5 %; Mean Corpuscular HGB Conc 31.3 g/dL (30-55); Mean Corpuscular Hemoglobin 28.7 pg (27-33); Mean Corpuscular Volume 91.9 fl (82-101); Mean Platelet Volume 9.7 fL (7.4-10.4); Monocytes # 1.2 10^3/uL (0.2-0.9); Monocytes % 10.5 %; Neutrophils # 8.03 10^3/uL (1.8-7.7); Neutrophils % 69.8 %; Nucleated Red Blood Cells % 0 %; Platelet Count 274 10^3/cmm (157-399); Red Blood Count 2.96 10^6/uL (3.85-5.65); Red Cell Distribution Width 14.6 % (12.1-15.1); White Blood Count 11.48 10^3/uL (3.29-11.43)
[2023-12-04 04:51] LABS: INR 2.77 (0.8-1.2)
[2023-12-04 05:02] LABS: Alanine Aminotransferase 9 U/L (0-41); Albumin Level 3.2 g/dL (3.5-5.2); Alkaline Phosphatase 250 U/L (40-130); Anion Gap 18.1 (5-19); Aspartate Amino Transferase 17 U/L (0-40); Blood Urea Nitrogen 60 mg/dL (8-23); Calcium 8.7 mg/dL (8.5-10.5); Carbon Dioxide 24 mmol/L (22-29); Chloride 95 mmol/L (98-107); Globulin 3.5 g/dL (1.3-4.6); Glomerular Filtration Rate 23.5 mL/min (90-130); Glucose 173 mg/dL (65-115); Magnesium 2.2 mg/dL (1.7-2.3); Osmolality Calculated 297 mOsm/kg (285-295); Phosphorus 3.8 mg/dL (2.5-4.5); Potassium 4.1 mmol/L (3.5-5.1); Sodium 133 mmol/L (136-145); Total Bilirubin 0.6 mg/dL (0.15-1.2); Total Protein 6.7 g/dL (6.6-8.7)
[2023-12-04 05:14] LABS: NT Pro B Type Natriuretic Pept 8909 pg/mL (0-125)
[2023-12-04] MEDS: bumetanide 0.25 mg/mL SDV 4 mL 1 MG IVP (06:02)
[2023-12-04] MEDS: RIOCIGUAT 2.5 MG 2.5 EACH PO ×3 (06:02→23:01)
[2023-12-04] MEDS: aspirin 81 mg EC Tablet PO (06:02)
[2023-12-04 06:43] LABS: Glucose Point of Care 195 mg/dL (70-110)
[2023-12-04] MEDS: atorvastatin 40 mg Tablet 20 MG PO (08:07)
[2023-12-04] MEDS: insulin lispro 100 unit/1 mL SUBCUT ×4 (08:07→23:01)
[2023-12-04] MEDS: levothyroxine 112 mcg Tablet PO (08:07)
[2023-12-04 12:22] LABS: Glucose Point of Care 215 mg/dL (70-110)
--- NOTE | 2023-12-04 14:43 | P.PN_ITS ---
Vitals/I&O/Wt Last Vital Signs Temp 98.1 F 12/04/23 08:57 Pulse 107 H 12/04/23 08:57 Resp 18 12/04/23 08:57 BP 92/53 12/04/23 08:57 Pulse Ox 91 12/04/23 08:57 O2 Del Method Nasal Cannula 12/04/23 08:55 O2 Flow Rate 4.5 12/04/23 08:55 12/03/23 12/04/23 12/04/23 22:59 06:59 14:59 Intake Total 200 / 780 200 / 200 Output Total 200 / 310 500 / 810 Balance -200 / 270 -300 / -30 200 / 200 Weight last 48 hrs Weight 90.945 kg Weight 73.936 kg Weight 73.936 kg Physical Exam 2 Narrative: Sitting up in bed. Accompanied by life partner. Const: COMMON NORMALS: patient oriented x3 and alert GENERAL APPEARANCE: c ooperative ORIENTATION/CONSCIOUSNESS: Yes awake HENMT: COMMON NORMALS: oropharynx normal Neck/C-Spine: COMMON NORMALS: no JVD Resp: COMMON NORMALS: normal respiratory effort AUSCULTATION: diminished lung sounds bilateral in the lower lung perera Cardio: COMMON NORMALS: no JVD, regular rhythm, S1 normal heart sound present, S2 normal heart sound present and No murmurs present (Cardio) RHYTHM: regular rhythm HEART SOUNDS: S1 normal heart sound present and S2 normal heart sound present GI: COMMON NORMALS: Normal to inspection, nondistended, normoactive bowel sounds present, Soft to palpation and non-tender PALPATION: Yes Soft to palpation Extremity: COMMON NORMALS: no joint enlargement GENERAL: Yes edema (1+) Neuro: COMMON NORMALS: patient oriented x3 and moves all extremities S ENSORIUM/ORIENTATION: Yes alert Skin: COMMON NORMALS: no rashes or lesions noted GENERAL SKIN EXAM: no rashes or lesions noted Data 12/04/23 04:21 12/04/23 04:21 Micro: Microbiology 12/02/23 21:00 Urine Culture - Final Urine,Clean Catch A&P Assessment and plan (1) Acute exacerbation of CHF (congestive heart failure): Qualifiers: Heart failure type: unspecified Qualified Code(s): I50.9 - Heart failure, unspecified (2) Pulmonary hypertension: (3) Acute on chronic kidney failure: Qualifiers: Acute renal failure type: unspecified Chronic kidney disease stage: u nspecified stage Qualified Code(s): N17.9 - Acute kidney failure, unspecified; N18.9 - Chronic kidney disease, unspecified (4) Acute hyponatremia: (5) Chest pain: (6) Supratherapeutic INR: (7) Acute hypoxemic respiratory failure: Plan Pericardial effusion: Discussed with matrix bath attendant interpretation echocardiogram, at least moderate pericardial effusion. Reviewed echocardiogram, prosthetic aortic valve appears well-seated. Estimated pulmonary pressure 42 mmHg. Normal EF, grade 1 diastolic function. Mildly dilated right ventricle. Discussed with matrix bath attendant on-call, appreciate consultation. Discussed with patient preliminary recommendation for bradycardia/effusion drainage. He has this is currently unavailable here without cardiothoracic surgery available web content executive currently discussed with patient and spoke with [facility] Dr Zhong, he is accepted for transfer once a bed becomes available. Of diuretics, monitor blood pressure. Bolus in case of hypotension. He will be at risk of tamponade. Continue to hold warfarin in anticipation of procedure. Recheck INR. Reviewed INR today, 2.77. Supratherapeutic INR on presentation. No obvious blood products reported on imaging. Viral panel has been negative. TSH is normal, history of hypothalamic hypothyroidism. Will also check free T4. No obvious signs of pericarditis. Transient ST elevation on 12/02? Mild to moderate troponin elevation. Currently chest pain-free. Acute hypoxic respiratory failure: Bilateral pleural effusions. Continue to hold warfarin, INR reviewed, anticipate thoracentesis. Monitor on telemetry. Reviewed CBC, noted mild leukocytosis 11.4. Does have some mild sinus tachycardia. With atelectasis versus infiltrate, with some leukocytosis, tachycardia, shortness of breath, will for now cover empirically with Levaquin for possible early pneumonia. -Suspected secondary to CHF exacerbation, pleural and pericardial effusions. ? Flu and COVID-negative, -Does have a history of pulm hypertension. Resumed on riociguat. -Monitor respiratory status closely -CT of the chest reviewed -Full code -SCDs for DVT prophylaxis, supratherapeutic INR. Warfarin on hold. Follow-up INR requested. Chest pain -Serial EKGs, serial troponins, telemetry monitoring -Cardiac echo requested History of PE: Supratherapeutic INR improving, hold Coumadin, recheck INR requested History of TAVR, at [place] in September, cardiac echo, on aspirin, Coumadin on hold History of atrial fibrillation, on Coumadin, currently on hold Type 2 diabetes mellitus, moderate dose sliding scale. Reviewed blood glucose. Consistent carb. Pulmonary hypertension: Restarted home Adempas. Attestations 2 Medical Necessity Statement*: Continue admission for assessment and management of moderate or larger pericardial effusion, pleural effusion syndrome and presenting with dyspnea, with underlying pulmonary hypertension, recent TAVR, anticoagulation with history of PE. and High Time for a total of 80 minutes, includes reviewing past or interval history, examining/interviewing patient, placing orders, counseling patient/family/other support, updating patient/family/other support, discussing plan of care with staff, communicating with other healthcare providers, documenting encounter and coordinating care Diagnoses Acute exacerbation of CHF (congestive heart failure) I50.9 Heart failure type: unspecified Pulmonary hypertension I27.20 Acute on chronic kidney failure N17.9; N18.9 Acute renal failure type: unspecified Chronic kidney disease stage: unspecified stage Acute hyponatremia E87.1 Chest pain R07.9 Supratherapeutic INR R79.1 Acute hypoxemic respiratory failure J96.01
--- NOTE | 2023-12-04 15:31 | P.CONIM_ITS ---
Providers/Reason For Consult 2 Consulting Physician/Specialty*: Cardiovascular medicine Reason for Consult*: Pericardial effusion Requesting Physician: Hospitalist Attending Physician: Freeman Rodriguez Primary Care Provider: Patrick Nick MD History of Present Illness History of Present Illness Guy Wiseman is a 68 year old male with quite a long list of medical problems. He has had a history of pulmonary emboli. He is also had a history of atrial fibrillation at least according to the chart. There is a questionable history of heart failure. He has hypothyroidism, hypertension, COPD, tobacco abuse, diabetes, dyslipidemia, ill-defined peripheral arterial disease, anemia, pulmonary hypertension. He is on warfarin. I do not know if this is from his previous history of pulmonary embolism or the atrial fibrillation or both. He had a TAVR in [place] in September of last year some two months ago. He states that his follow-up visit there showed the valve was seated properly but had a he was getting fluid overloaded and they started him on a diuretic. I think he was started on Bumex. Since then his creatinine has gone up. His BUN and creatinine are now 60 and 2.7. He was admitted 2 days ago with chest pain and shortness of breath. His shortness of breath is at rest. It has progressed from exertional to shortness of breath with minimal exertion to shortness of breath at rest. He states that he can hardly even move around before he gets short of breath. He has no lower extremity edema and has no paroxysmal nocturnal dyspnea. He tells me that in the past he was told he had heart failure but to my knowledge he has had normal left ventricular function. He was admitted and thought to be in heart failure and was continued on the diuretics. An echo was done which showed a moderate pericardial effusion. I looked at the study myself and cannot determine whether he actually has pericardial tamponade since the interrogation was not complete. There is no obvious right ventricular diastolic collapse but there is right atrial collapse. Echo shows normal LV function with mild dilatation of the right ventricle and a pulmonary artery pressure 42 mmHg. The aortic valve is well-seated and appears to be functioning normally. A CT of the chest also showed what is termed a large pericardial effusion. He is also anemic with a hemoglobin hematocrit of 8.5 and 27.2. His white count is 11.48 When he was admitted his INR was quite high. The Coumadin has been held and today's INR is 2.77. Currently he is comfortable at rest. I was not able to measure a pulses paradoxus. Medications/Allergies Home Medications Medication Instructions Recorded Confirmed Last Taken Type aspirin 81 mg tablet,delayed 81 mg PO QAM 03/23/21 12/02/23 12/01/23 History release simvastatin 40 mg tablet 40 mg PO DAILY #30 tabs 03/23/21 12/02/23 12/01/23 Rx warfarin 5 mg tablet 5 mg PO DIRECTED 03/23/21 12/02/23 12/01/23 History albuterol sulfate 90 mcg/actuation 2 inh inhalation Q6H PRN shortness 07/26/22 12/02/23 07/13/23 Rx aerosol inhaler of breath or wheezing #8 grams warfarin 7.5 mg tablet 7.5 mg PO DIRECTED 12/13/22 12/02/23 11/26/23 History potassium chloride 10 mEq 10 meq PO DAILY PRN only take 12/17/22 12/02/23 12/01/23 Rx tablet,extended release with bumex #60 tabs Cam boot to left #1 ea 05/15/23 12/02/23 07/13/23 Rx bumetanide 1 mg tablet 2 mg PO DAILY 11/27/23 12/02/23 12/01/23 History insulin human U-100 NPH-regulr See Rx Instructions .Route .COMPLEX 11/27/23 12/02/23 12/01/23 History 70-30 mix 100 unit/mL subcutaneous susp (Humulin 70/30 U-100 Insulin) levothyroxine 112 mcg tablet 112 mcg PO DAILY 11/27/23 12/02/23 12/01/23 History riociguat 2.5 mg tablet (Adempas) 2.5 mg PO TID 11/27/23 12/02/23 12/01/23 History Allergies Allergy/AdvReac Type Severity Reaction Status Date / Time No Known Allergies Allergy Verified 11/27/23 11:16 Current Medications Generic Name Dose Route Start Last Admin Trade Name Freq PRN Reason Stop Dose Admin Aspirin 81 mg 12/03/23 06:00 12/04/23 06:02 Aspirin 81 Mg Ec Tablet PO 81 mg QAM CHYU Administration Atorvastatin Calcium 20 mg 12/03/23 09:00 12/04/23 08:07 Atorvastatin 40 Mg Tablet PO 20 mg DAILY CHUY Administration Bumetanide 1 mg 12/02/23 17:01 12/04/23 06:02 Bumetanide 0.25 Mg/Ml Sdv 4 Ml IVP 1 mg Q12H CHUY Administration Insulin Human Lispro 0 unit 12/02/23 18:00 12/04/23 12:28 Insulin Lispro 100 Unit/1 Ml SUBCUT 6 unit WM&BEDTIME CHUY Administration Protocol Levothyroxine Sodium 112 mcg 12/03/23 09:00 12/04/23 08:07 Levothyroxine 112 Mcg Tablet PO 112 mcg DAILY CHUY Administration Morphine Sulfate 2 mg 12/02/23 17:01 12/03/23 14:41 Morphine 4 Mg/Ml Sdv 1 Ml IVP 2 mg Q4H PRN Administration SEVERE PAIN Non-Formulary Medication 2.5 mg 12/03/23 23:00 12/04/23 12:29 Riociguat [Adempas] PO 2.5 mg TID@0700,1200,2300 CHUY Administration Pantoprazole Sodium 40 mg 12/02/23 17:01 12/03/23 17:55 Pantoprazole 40 Mg Sdv IVP 40 mg Q24H CHUY Administration PFSH Acute 2 PFSH: Medical History (Updated 12/04/23 @ 15:41 by Long Sheehan MD) Tobacco abuse Anemia Diabetes Warfarin anticoagulation Chest pain History of pulmonary embolism Congestive heart failure History of nonmelanoma skin cancer Hypothalamic hypothyroidism Hypertension History of blood clots COPD (chronic obstructive pulmonary disease) History of pulmonary embolism Surgical History (Updated 12/04/23 @ 15:41 by Long Sheehan MD) S/P TAVR (transcatheter aortic valve replacement) History of rotator cuff surgery Social History Smoking and tobacco/nicotine status: current every day tobacco/nicotine user Alcohol intake: never Substance/Drug Use: never Vitals/I&O/Wt Last Vital Signs Temp 98.1 F 12/04/23 08:57 Pulse 107 H 12/04/23 08:57 Resp 18 12/04/23 08:57 BP 92/53 12/04/23 08:57 Pulse Ox 91 12/04/23 08:57 O2 Del Method Nasal Cannula 01/16/24 08:55 O2 Flow Rate 4.5 12/04/23 08:55 12/04/23 12/04/23 12/04/23 06:59 14:59 22:59 Intake Total 200 / 780 200 / 200 Output Total 500 / 810 Balance -300 / -30 200 / 200 Weight last 48 hrs Weight 200 lb 8 oz Weight 163 lb Weight 163 lb Physical Exam 2 Narrative: GENERAL: In general he is comfortable at rest. HEENT: Exam within normal limits. [] NECK: Supple without jugular vein distention. The carotid upstroke is normal without bruits. JVD is about 6 cm of water at 30 degrees. BACK: Exam normal. [] LUNGS: Clear. [] HEART: Regular rate and rhythm. [] ABDOMEN: Benign without organomegaly or tenderness. [] EXTREMITIES: No edema. [] NEUROLOGIC: Exam normal. [] SKIN: Unremarkable. [] Data 12/04/23 04:21 12/04/23 04:21 Micro: Microbiology 12/02/23 21:00 Urine Culture - Final Urine,Clean Catch A&P Assessment and plan (1) Chest pain: (2) Peripheral arterial disease: (3) Pulmonary hypertension: (4) Acute on chronic kidney failure: Qualifiers: Acute renal failure type: unspecified Chronic kidney disease stage: u nspecified stage Qualified Code(s): N17.9 - Acute kidney failure, unspecified; N18.9 - Chronic kidney disease, unspecified (5) Acute hyponatremia: (6) Diabetic peripheral neuropathy associated with type 2 diabetes mellitus: (7) Acute dyspnea: (8) Acute hypoxemic respiratory failure: (9) Warfarin anticoagulation: (10) History of pulmonary embolism: (11) S/P TAVR (transcatheter aortic valve replacement): (12) Diabetes: (13) Anemia: (14) Tobacco abuse: Plan I think the pericardial effusion is significant. It probably needs to be drained. I cannot risk doing that here with a needle in the absence of any cardiac surgery backup. Additionally has multiple comorbidities including a rather significant anemia with renal insufficiency. I do not know the etiology of the effusion. It could be his renal insufficiency or the recent placement of the aortic valve or infectious or neoplastic etiology. Warfarin needs to be held and either a pericardial window or pericardiocentesis performed. In the meantime I would not administer any more Lasix. I spoke to the hospitalist about this and a call is being placed to [facility] to see if he can be transferred for further evaluation of this. I note that the Bumex has been put on hold. Consult Attestations 2 Medical Necessity Statement: Requires hospitalization and transfer for the above-mentioned medical problems and High Time for a total of 70 minutes, includes reviewing past or interval history, examining/interviewing patient, counseling patient/family/other support, updating patient/family/other support, discussing plan of care with staff, communicating with other healthcare providers and documenting encounter Diagnoses Chest pain R07.9 Peripheral arterial disease I73.9 Pulmonary hypertension I27.20 Acute on chronic kidney failure N17.9; N18.9 Acute renal failure type: unspecified Chronic kidney disease stage: unspecified stage Acute hyponatremia E87.1 Diabetic peripheral neuropathy associated with type 2 diabetes mellitus E11.42 Acute dyspnea R06.00 Acute hypoxemic respiratory failure J96.01 Warfarin anticoagulation Z79.01 History of pulmonary embolism Z86.711 S/P TAVR (transcatheter aortic valve replacement) Z95.2 Diabetes E11.9 Anemia D64.9 Tobacco abuse Z72.0
[2023-12-04] MEDS: levofloxacin-dextrose 5 % 750 MG/150 ML PREMIX 100 MG IV (15:54)
[2023-12-04 18:32] LABS: Glucose Point of Care 222 mg/dL (70-110)
[2023-12-04] MEDS: pantoprazole 40 mg SDV IVP (18:45)
[2023-12-04 21:51] LABS: Glucose Point of Care 228 mg/dL (70-110)
[2023-12-05 00:26] VITALS: BP 124/50; PULSE 105; RESP 20; TEMP 37.8; O2SAT 90
[2023-12-05 00:40] VITALS: PULSE 105
[2023-12-05 04:05] LABS: Basophils % 0.2 %; Eosinophils # 0.2 10^3/uL (0.0-0.8); Eosinophils % 1.9 %; Hematocrit 26.4 % (37-53); Lymphocytes # 1.5 10^3/uL (0.8-4.8); Lymphocytes % 14.9 %; Mean Corpuscular HGB Conc 32.2 g/dL (30-55); Mean Corpuscular Hemoglobin 29.4 pg (27-33); Mean Corpuscular Volume 91.3 fl (82-101); Mean Platelet Volume 9.6 fL (7.4-10.4); Monocytes # 1.2 10^3/uL (0.2-0.9); Monocytes % 12.1 %; Neutrophils # 6.95 10^3/uL (1.8-7.7); Neutrophils % 70.3 %; Nucleated Red Blood Cells % 0 %; Platelet Count 255 10^3/cmm (157-399); Red Blood Count 2.89 10^6/uL (3.85-5.65); Red Cell Distribution Width 14.6 % (12.1-15.1); White Blood Count 9.89 10^3/uL (3.29-11.43)
[2023-12-05 04:28] LABS: Alanine Aminotransferase 9 U/L (0-41); Albumin Level 2.9 g/dL (3.5-5.2); Alkaline Phosphatase 243 U/L (40-130); Anion Gap 16.1 (5-19); Aspartate Amino Transferase 21 U/L (0-40); Blood Urea Nitrogen 59 mg/dL (8-23); Calcium 8.7 mg/dL (8.5-10.5); Carbon Dioxide 24 mmol/L (22-29); Chloride 100 mmol/L (98-107); Globulin 3.4 g/dL (1.3-4.6); Glomerular Filtration Rate 28.3 mL/min (90-130); Glucose 135 mg/dL (65-115); Magnesium 2.1 mg/dL (1.7-2.3); Osmolality Calculated 301 mOsm/kg (285-295); Phosphorus 3.6 mg/dL (2.5-4.5); Potassium 4.1 mmol/L (3.5-5.1); Sodium 136 mmol/L (136-145); Total Bilirubin 0.6 mg/dL (0.15-1.2); Total Protein 6.3 g/dL (6.6-8.7)
[2023-12-05 04:30] VITALS: BP 116/66; PULSE 96; TEMP 36.8; O2SAT 93
[2023-12-05 04:54] LABS: NT Pro B Type Natriuretic Pept 8532 pg/mL (0-125)
--- NOTE | 2023-12-05 05:08 | PC.NURSE ---
Received call from [facility] to verify transfer and to assign bed number. Patient is being accepted by Dr Zhong. Report called to Solange Hartmann RN. Patient stable to transfer.
[2023-12-05] MEDS: aspirin 81 mg EC Tablet PO (05:40)
[2023-12-05] MEDS: RIOCIGUAT 2.5 MG 2.5 EACH PO (05:40)
[2023-12-05 06:00] VITALS: PULSE 98
[2023-12-05 06:34] LABS: Glucose Point of Care 193 mg/dL (70-110)
--- NOTE | 2023-12-05 08:02 | P.PN_ITS ---
Subjective 2 Subjective: Fractures had an uneventful night. No complaints this morning. Still short of breath with very little exercise. Vitals/I&O/Wt Last Vital Signs Temp 98.3 F 12/05/23 04:30 Pulse 98 12/05/23 06:00 Resp 20 H 12/05/23 00:26 BP 116/66 12/05/23 04:30 Pulse Ox 93 12/05/23 04:30 O2 Del Method Nasal Cannula 12/05/23 00:26 O2 Flow Rate 4 12/05/23 00:26 12/04/23 12/05/23 12/05/23 22:59 06:59 14:59 Intake Total 515 / 955 Output Total 300 / 800 325 / 1125 Balance 215 / 155 -325 / -170 Weight last 48 hrs Weight 200 lb 8 oz Weight 163 lb Physical Exam 2 Narrative: GENERAL: Comfortable at rest HEENT: Exam within normal limits. NECK: Supple without jugular vein distention. The carotid upstroke is normal without bruits. BACK: Exam normal. LUNGS: Clear. HEART: Regular rate and rhythm. ABDOMEN: Benign without organomegaly or tenderness. EXTREMITIES: No edema. NEUROLOGIC: Exam normal. SKIN: Unremarkable. Data 12/05/23 03:51 12/05/23 03:51 Micro: Microbiology 12/02/23 21:00 Urine Culture - Final Urine,Clean Catch A&P Assessment and plan (1) History of pulmonary embolism: (2) Chest pain: (3) Peripheral arterial disease: (4) Supratherapeutic INR: (5) Warfarin anticoagulation: (6) S/P TAVR (transcatheter aortic valve replacement): (7) Tobacco abuse: (8) Pulmonary hypertension: (9) Diabetes: (10) Acute on chronic kidney failure: Qualifiers: Acute renal failure type: unspecified Chronic kidney disease stage: u nspecified stage Qualified Code(s): N17.9 - Acute kidney failure, unspecified; N18.9 - Chronic kidney disease, unspecified (11) Anemia: (12) Pericardial effusion: Plan Arrangements being made to transfer. Attestations 2 Medical Necessity Statement*: Requires transfer for management of pericardial effusion. and Moderate Time for a total of 35 minutes, includes reviewing past or interval history, examining/interviewing patient, counseling patient/family/other support, updating patient/family/other support and documenting encounter Diagnoses History of pulmonary embolism Z86.711 Chest pain R07.9 Peripheral arterial disease I73.9 Supratherapeutic INR R79.1 Warfarin anticoagulation Z79.01 S/P TAVR (transcatheter aortic valve replacement) Z95.2 Tobacco abuse Z72.0 Pulmonary hypertension I27.20 Diabetes E11.9 Acute on chronic kidney failure N17.9; N18.9 Acute renal failure type: unspecified Chronic kidney disease stage: unspecified stage Anemia D64.9 Pericardial effusion I31.39
[2023-12-05] MEDS: levothyroxine 112 mcg Tablet PO (08:12)
[2023-12-05] MEDS: insulin lispro 100 unit/1 mL SUBCUT (08:12)
[2023-12-05] MEDS: atorvastatin 40 mg Tablet 20 MG PO (08:13)
--- NOTE | 2023-12-05 08:35 | PC.NURSE ---
Patient left with [facility] lifeteam at 0825. Patient stable, vitals WNL. Bedside report given to Johnnie Morris RN.
--- NOTE | 2023-12-05 15:33 | PM.TDS ---
Transfer Summary Providers Date of Admission: 12/02/23 14:15 Date of Discharge/Transfer: 12/05/23 Attending Provider at Admission: Cruz Fang MD Attending Provider at Transfer: Freeman Rodriguez Primary Care Provider: Patrick Nick MD Transfer Plans: Anticipated date of transfer: 12/05/23. Diagnoses at Discharge Discharge Diagnosis (1) History of pulmonary embolism: Status: Acute (2) Chest pain: Status: Acute (3) Peripheral arterial disease: Status: Acute (4) Supratherapeutic INR: Status: Acute (5) Warfarin anticoagulation: Status: Acute (6) S/P TAVR (transcatheter aortic valve replacement): Status: Acute (7) Tobacco abuse: Status: Acute (8) Pulmonary hypertension: Status: Acute (9) Diabetes: Status: Acute (10) Acute on chronic kidney failure: Status: Acute Qualifiers: Acute renal failure type: unspecified Chronic kidney disease stage: unspecified stage Qualified Code(s): N17.9 - Acute kidney failure, unspecified; N18.9 - Chronic kidney disease, unspecified (11) Anemia: Status: Acute (12) Pericardial effusion: Status: Acute Reason for Visit Reason for Visit Sob, N/V Hospital Course Hospital Course Very pleasant 68-year-old gentleman with history of pulmonary hypertension, on treatment with riociguat following at [facility], history of PEs, on anticoagulation with warfarin, on presentation with supratherapeutic INR up to 6.2, COPD, current smoking, HTN, hypothalamic hypothyroidism, congestive heart failure, diabetes, anemia, other medical problems, recently also underwent TAVR in September at [facility], subsequently with some shortness of breath, felt to be secondary to congestive heart failure, started on Bumex, but unimproved, was admitted after presenting with shortness of breath, nausea, thought to be in congestive heart failure initially started on diuretic treatment with Bumex IV, with additional cardiac assessment, warfarin was held with supratherapeutic INR. Was assessed by CT chest which showed large pleural effusions bilaterally but also reported large pericardial effusion. Diuretics were held. Echocardiogram was obtained. Effusion was found to be at least moderate. TAVR in place and reported well-seated. Etiology unclear. He denied any discrete viral illness recently, was assessed with viral panel which was negative. TSH on presentation normal, followed up with free T4 which was also normal 1.2. Continues on levothyroxine. No discretely visualized blood products in the pericardial sac, INR has been decreasing down to 2.6 with with holding warfarin. Cardiology was consulted, as etiology is not clear and currently we do not have availability to drain the pericardial effusion safely recommendation was made for transfer to higher level care facility. He was kind accepted for further care and was able to transfer to [facility] after discussion with care team there. GT on CKD also noted on presentation, creatinine up to 2.8 showed improvement, down to 2.3 today. Kidney ultrasound was obtained which showed no acute findings, mild asymmetric right renal cortical thinning. CT chest also showed incidental findings of emphysema. Bilateral dependent atelectasis versus infiltrate. T12 vertebral body chronic compression fracture without retropulsion of bony fragments. Scattered prominent mediastinal lymph nodes measuring up to 15 mm. Right hip probably 11 mm nodule airspace opacification with associated interstitial thickening. Consider nonemergent PET/CT or tissue sampling. With emphysema being a risk factor recommendation to consider enrollment in low-dose CT screening program. TS Data Studies Completed and Pending Pending at discharge Category Date Time Status Blood Cultures ([facility]) Routine Lab 12/02/23 17:15 Results Blood Cultures ([facility]) Routine Lab 12/02/23 17:20 Results Completed Studies During Hospitalization Category Date Time Status CT chest wo con [id number] Routine Cat Scan 12/02/23 17:01 Completed XR chest 2V* [id number] Stat Exams 12/02/23 11:11 Completed CV. echo complete* [id number] Routine Ultrasound 12/03/23 14:06 Completed US renal BI* [id number] Routine Ultrasound 12/02/23 17:01 Completed Laboratory Last Values WBC 9.89 10^3/uL (3.29-11.43) 12/05/23 03:51 RBC 2.89 10^6/uL (3.85-5.65) L 12/05/23 03:51 Hgb 8.50 g/dL (11.27-16.99) L 12/05/23 03:51 Hct 26.4 % (37-53) L 12/05/23 03:51 MCV 91.3 fl (82-101) 12/05/23 03:51 MCH 29.4 pg (27-33) 12/05/23 03:51 MCHC 32.2 g/dL (30-55) 12/05/23 03:51 RDW 14.6 % (12.1-15.1) 12/05/23 03:51 Plt Count 255 10^3/cmm (157-399) 12/05/23 03:51 MPV 9.6 fL (7.4-10.4) 12/05/23 03:51 Neut % (Auto) 70.3 % 12/05/23 03:51 Lymph % (Auto) 14.9 % 12/05/23 03:51 [place] % (Auto) 12.1 % 12/05/23 03:51 Eos % (Auto) 1.9 % 12/05/23 03:51 Baso % (Auto) 0.2 % 12/05/23 03:51 Neut # (Auto) 6.95 10^3/uL (1.8-7.7) 12/05/23 03:51 Lymph # (Auto) 1.5 10^3/uL (0.8-4.8) 12/05/23 03:51 [place] # (Auto) 1.2 10^3/uL (0.2-0.9) H 12/05/23 03:51 Eos # (Auto) 0.2 10^3/uL (0.0-0.8) 12/05/23 03:51 Baso # (Auto) 0.0 10^3/uL (0.0-0.1) 12/05/23 03:51 Nucleated RBC % (auto) 0 % 12/05/23 03:51 Nucleated RBCs # 0.0 /100WBC 12/05/23 03:51 PT 28.90 SECONDS (12.1-14.9) H 12/05/23 03:51 INR 2.60 (0.8-1.2) H 12/05/23 03:51 Specimen Type Arterial 12/02/23 15:55 Sample Site Radial, right 12/02/23 15:55 ABG pH 7.45 (7.35-7.45) 12/02/23 15:55 ABG pCO2 32.6 mmHg (35-45) L 12/02/23 15:55 ABG pO2 60.2 mmHg (80.0-100.0) L 12/02/23 15:55 ABG HCO3 22.6 mmol/L (22-26) 12/02/23 15:55 ABG Base Excess -1.0 mmol/L (-2.0-2.0) 12/02/23 15:55 Patrice Test Pos 12/02/23 15:55 Hematocrit 29.0 % (42-52) L 12/02/23 15:55 O2 Delivery Device Nc 12/02/23 15:55 O2 Liters/Min 2.0 % 12/02/23 15:55 Chief Chemist ID Walalex 12/02/23 15:55 Sodium 136 mmol/L (136-145) 12/05/23 03:51 Potassium 4.1 mmol/L (3.5-5.1) 12/05/23 03:51 Chloride 100 mmol/L (98-107) 12/05/23 03:51 Carbon Dioxide 24 mmol/L (22-29) 12/05/23 03:51 Anion Gap 16.1 (5-19) 12/05/23 03:51 BUN 59 mg/dL (8-23) H 12/05/23 03:51 Creatinine 2.3 mg/dL (0.7-1.2) H 12/05/23 03:51 GFR Calculation 28.3 mL/min (90-130) L 12/05/23 03:51 Glucose 135 mg/dL (65-115) H 12/05/23 03:51 POC Glucose 193 mg/dL (70-110) H 12/05/23 06:25 Calculated Osmolality 301 mOsm/kg (285-295) H 12/05/23 03:51 Lactic Acid 1.8 mmol/L (0.5-2.2) 12/02/23 17:15 Calcium 8.7 mg/dL (8.5-10.5) 12/05/23 03:51 Phosphorus 3.6 mg/dL (2.5-4.5) 12/05/23 03:51 Magnesium 2.1 mg/dL (1.7-2.3) 12/05/23 03:51 Total Bilirubin 0.6 mg/dL (0.15-1.2) 12/05/23 03:51 AST 21 U/L (0-40) 12/05/23 03:51 ALT 9 U/L (0-41) 12/05/23 03:51 Alkaline Phosphatase 243 U/L (40-130) H 12/05/23 03:51 Creatine Kinase 94 U/L (39-308) 12/02/23 17:15 Troponin T Baseline 63 ng/L (0-15) H 12/02/23 11:33 Troponin T 120 Minute 55.39 ng/L (0-15) H 12/02/23 13:42 Delta Troponin T -7.61 ABS# (0-10) L 12/02/23 13:42 Troponin T Hi Sens 6Hr 56.36 ng/L (0-15) H 12/02/23 17:15 Troponin T Hi Sens 6Hr Delta -6.64 ng/L (0-12) L 12/02/23 17:15 C-Reactive Protein 254.1 mg/L (0.0-4.9) H 12/02/23 17:15 NT-Pro-B Natriuret Pep 8532 pg/mL (0-125) H 12/05/23 03:51 Total Protein 6.3 g/dL (6.6-8.7) L 12/05/23 03:51 Albumin 2.9 g/dL (3.5-5.2) L 12/05/23 03:51 Globulin 3.4 g/dL (1.3-4.6) 12/05/23 03:51 Triglycerides 143 mg/dL (0-150) 12/02/23 17:15 Cholesterol 91 mg/dL (0-200) 12/02/23 17:15 LDL Cholesterol, Calc 34 mg/dL (50-129) L 12/02/23 17:15 HDL Cholesterol 28 mg/dL (60-100) L 12/02/23 17:15 LDL/HDL Ratio 1.21 RATIO (0.00-3.22) 12/02/23 17:15 Cholesterol/HDL Ratio 3.25 mg/dL (1.0-5.00) 12/02/23 17:15 Procalcitonin 0.53 ng/mL (0-0.5) H 12/02/23 17:15 TSH 2.23 uIU/mL (0.27-4.20) 12/02/23 17:15 Free T4 1.20 ng/dL (0.82-1.77) 12/04/23 04:21 Urine Color Yellow (Yellow) 12/02/23 21:00 Urine Appearance Hazy (CLEAR) A 12/02/23 21:00 Urine pH 5 (5-7) 12/02/23 21:00 Ur Specific Media 1.015 (1.005-1.030) 12/02/23 21:00 Urine Protein 2+ (Negative) H 12/02/23 21:00 Urine Glucose (UA) 4+ (Normal) H 12/02/23 21:00 Urine Ketones Negative (Negative) 12/02/23 21:00 Urine Blood 3+ (Negative) H 12/02/23 21:00 Urine Nitrate Negative (Negative) 12/02/23 21: Urine Bilirubin Neg (Negative) 12/02/23 21: Urine Urobilinogen Norm mg/dL (Negative) 12/02/23 21:00 Ur Leukocyte Esterase Negative (Negative) 12/02/23 21:00 Urine RBC 5-10 /hpf (0-2) H 12/02/23 21:00 Urine WBC 5-10 /hpf (0-5) H 12/02/23 21:00 Ur Squamous Epith Cells 0-4 /hpf (0-5) H 12/02/23 21:00 Amorphous Sediment 1+ /hpf 12/02/23 21:00 Urine Bacteria 1+ /hpf (NONE) H 12/02/23 21:00 Hyaline Casts 0-4 /lpf H 12/02/23 21:00 Fine Granular Casts 0-4 /lpf H 12/02/23 21:00 Coarse Granular Casts 0-4 /lpf H 12/02/23 21:00 Urine Mucus Trace /hpf 12/02/23 21:00 Adenovirus (PCR) Not detected (NOT DETECT) 12/02/23 21:00 C. pneumoniae DNA (PCR) Not detected (NOT DETECT) 12/02/23 21:00 Coronavirus 229E (PCR) Not detected (NOT DETECT) 12/02/23 21:00 Human Metapneumovir PCR Not detected (NOT DETECT) 12/02/23 21:00 Influenza A (H1) PCR Not detected (NOT DETECT) 12/02/23 21:00 Influ A (H1/09) PCR Not detected (NOT DETECT) 12/02/23 21:00 Influenza A (H3) PCR Not detected (NOT DETECT) 12/02/23 21:00 Influenza Type A Ag negative (Negative) 12/02/23 11:18 Influenza Type A (PCR) Not detected (NOT DETECT) 12/02/23 21:00 Influenza Type B Ag negative (Negative) 12/02/23 11:18 Influenza Type B (PCR) Not detected (NOT DETECT) 12/02/23 21:00 M. pneumoniae (PCR) Not detected (NOT DETECT) 12/02/23 21:00 Parainfluenza 1 (PCR) Not detected (NOT DETECT) 12/02/23 21:00 Parainfluenza 2 (PCR) Not detected (NOT DETECT) 12/02/23 21:00 Parainfluenza 3 (PCR) Not detected (NOT DETECT) 12/02/23 21:00 Parainfluenza 4 (PCR) Not detected (NOT DETECT) 12/02/23 21:00 RSV Type A (PCR) Not detected (NOT DETECT) 12/02/23 21:00 RSV Type B (PCR) Not detected (NOT DETECT) 12/02/23 21:00 Entero/Rhino (PCR) Not detected (NOT DETECT) 12/02/23 21:00 SARS-CoV-2 (PCR) Not detected (NOT DETECT) 12/02/23 21:00 SARS-CoV-2 Ag (Rapid) negative (Negative) 12/02/23 11:18 Radiology Impressions Chest X-Ray 12/02/23 11:11 IMPRESSION: Small bilateral pleural effusions. Otherwise, no obvious acute process identified. Chest CT 12/02/23 17:01 IMPRESSION: 1. Large bilateral pleural effusions. 2. Large pericardial effusion measuring up to at least 13 mm in thickness. 3. Coronary artery atherosclerotic calcifications. 4. Emphysematous changes. 5. Bilateral dependent atelectasis versus infiltrate. 6. T12 vertebral body chronic compression fracture without retropulsion of bony fragments. 7. Scattered prominent mediastinal lymph nodes measuring up to 15 mm, nonspecific. 8. Right apical 11 mm nodular airspace opacification with associated interstitial thickening. Consider non-emergent PET/CT, or tissue sampling.(Reference: Aron) COMMENTS: The presence of pulmonary emphysema on CT is an independent risk factor for lung cancer. In the absence of a history or active diagnosis of lung cancer, it is recommended that this patient with emphysema be evaluated for enrollment in a low dose CT lung cancer screening program. REFERENCES: Aron Loaiza, et al. Guidelines for Management of Incidental Pulmonary Nodules Detected on CT Images: From the Fleischner Society 2017. Radiology. 2017;284(1):228-243. Renal Ultrasound 12/02/23 17:01 IMPRESSION: 1. No acute findings. 2. Mild asymmetric right renal cortical thinning. Recent Clincial Data Last Vital Signs Temp 98.3 F 12/05/23 04:30 Pulse 98 12/05/23 06:00 Resp 20 H 12/05/23 00:26 BP 116/66 12/05/23 04:30 Pulse Ox 93 12/05/23 04:30 O2 Del Method Nasal Cannula 12/05/23 00:26 O2 Flow Rate 4 12/05/23 00:26 Vital Signs Temp Pulse BP Pulse Ox 12/05/23 06:00 98 12/05/23 04:30 98.3 F 96 116/66 93 Intake & Output/Weight 12/03/23 12/04/23 12/05/23 12/06/23 06:59 06:59 06:59 06:59 Intake Total 100 / 100 780 / 780 955 / 955 Output Total 0 / 0 810 / 810 1125 / 1125 Balance 100 / 100 -30 / -30 -170 / -170 Weight 73.936 kg 90.945 kg Vitals Last Vital Signs Temp 98.3 F 12/05/23 04:30 Pulse 98 12/05/23 06:00 Resp 20 H 12/05/23 00:26 BP 116/66 12/05/23 04:30 Pulse Ox 93 12/05/23 04:30 O2 Del Method Nasal Cannula 12/05/23 00:26 O2 Flow Rate 4 12/05/23 00:26 TS Medications Medications Discontinued Medications Albuterol Sulfate (Albuterol 2.5 Mg/3 Ml Neb) 2.5 mg INHALATION Q6H PRN PRN Reason: shortness of breath or wheezing Aspirin (Aspirin 81 Mg Ec Tablet) 81 mg PO QAM [facility] Last Admin: 12/05/23 05:40 Dose: 81 mg Atorvastatin Calcium (Atorvastatin 40 Mg Tablet) 20 mg PO DAILY [facility] Last Admin: 12/05/23 08:13 Dose: 20 mg Bumetanide (Bumetanide 0.25 Mg/Ml Sdv 4 Ml) 1 mg IVP Q12H [facility] Last Admin: 12/04/23 06:02 Dose: 1 mg Cyclobenzaprine HCl (Cyclobenzaprine 10 Mg Tablet) 5 mg PO ONCE ONE Stop: 12/02/23 21:31 Last Admin: 12/02/23 21:38 Dose: 5 mg Dextrose (Dextrose 50% Syringe 50 Ml) 25 ml IVP ONCE PRN; Protocol PRN Reason: hypoglycemia protocol Dextrose (Dextrose 50% Syringe 50 Ml) 50 ml IVP PRN PRN; Protocol PRN Reason: hypoglycemia protocol Albumin Human (Albumin) 25 g in 100 mls @ 60 mls/hr IV Q12H [facility] Stop: 12/03/23 06:40 Last Infusion: 12/03/23 07:16 Dose: Infused Dextrose (D5w) 500 mls @ 0 mls/hr IV ONCE PRN; Protocol PRN Reason: Adult Acute Hypoglycemia Prot Levofloxacin/Dextrose (Levaquin-D5w) 750 mg in 150 mls @ 100 mls/hr IV Q24H [facility]; Protocol Levofloxacin/Dextrose (Levaquin-D5w) 750 mg in 150 mls @ 100 mls/hr IV Q48H [facility]; Protocol Last Infusion: 12/04/23 17:40 Dose: Infused Insulin Human Lispro (Insulin Lispro 100 Unit/1 Ml) 0 unit SUBCUT WM&BEDTIME [facility]; Protocol Last Admin: 12/05/23 08:12 Dose: 6 unit Levothyroxine Sodium (Levothyroxine 112 Mcg Tablet) 112 mcg PO DAILY [facility] Last Admin: 12/05/23 08:12 Dose: 112 mcg Morphine Sulfate (Morphine 4 Mg/Ml Sdv 1 Ml) 2 mg IVP Q4H PRN PRN Reason: SEVERE PAIN Last Admin: 12/03/23 14:41 Dose: 2 mg Naloxone HCl (Naloxone 0.4 Mg/Ml Sdv) 0.1 mg IVP Q2M PRN PRN Reason: OPIATERV Non-Formulary Medication (Riociguat [Adempas]) 2.5 mg PO TID [facility] Non-Formulary Medication (Riociguat [Adempas]) 2.5 mg PO TID@0700,1200,2300 [facility] Last Admin: 12/05/23 05:40 Dose: 2.5 mg Ondansetron HCl (Ondansetron 2 Mg/Ml Sdv 2 Ml) 4 mg IVP Q8H PRN PRN Reason: vomiting, or N/V if npo Pantoprazole Sodium (Pantoprazole 40 Mg Sdv) 40 mg IVP Q24H [facility] Last Admin: 12/04/23 18:45 Dose: 40 mg Allergies No Known Allergies Allergy (Verified 11/27/23 11:16) Home Medications aspirin 81 mg tablet,delayed release 81 mg PO QAM 03/23/21 [History Confirmed 12/02/23] simvastatin 40 mg tablet 40 mg PO DAILY #30 tabs 03/23/21 [Rx Confirmed 12/02/23] warfarin 5 mg tablet 5 mg PO DIRECTED 03/23/21 [History Confirmed 12/02/23] albuterol sulfate 90 mcg/actuation aerosol inhaler 2 inh inhalation Q6H PRN shortness of breath or wheezing #8 grams 07/26/22 [Rx Confirmed 12/02/23] warfarin 7.5 mg tablet 7.5 mg PO DIRECTED 12/13/22 [History Confirmed 12/02/23] potassium chloride 10 mEq tablet,extended release 10 meq PO DAILY PRN only take with bumex #60 tabs 12/17/22 [Rx Confirmed 12/02/23] Cam boot to left #1 ea 05/15/23 [Rx Confirmed 12/02/23] bumetanide 1 mg tablet 2 mg PO DAILY 11/27/23 [History Confirmed 12/02/23] insulin human U-100 NPH-regulr 70-30 mix 100 unit/mL subcutaneous susp (Humulin 70/30 U-100 Insulin) See Rx Instructions .Route .COMPLEX 11/27/23 [History Confirmed 12/02/23] levothyroxine 112 mcg tablet 112 mcg PO DAILY 11/27/23 [History Confirmed 12/02/23] riociguat 2.5 mg tablet (Adempas) 2.5 mg PO TID 11/27/23 [History Confirmed 12/02/23] Discharge Plan Discharge Patient Disposition: Other Inst w Plan Readm Condition: Fair Prescriptions: No Action warfarin 5 mg tablet 5 mg PO DIRECTED Rx Instructions: 5mg dosing TUES, WED, THUR, FRI, SAT, AND SUN aspirin 81 mg tablet,delayed release (DR/EC) 81 mg PO QAM (DME) Cam boot to left See Rx Instructions .Route .MEDSUPPLY Qty: 1 0RF Rx Instructions: As directed simvastatin 40 mg tablet 40 mg PO DAILY Qty: 30 0RF albuterol sulfate 90 mcg/actuation HFA aerosol inhaler 2 inh INHALATION Q6H PRN (Reason: shortness of breath or wheezing) Qty: 8 0RF warfarin 7.5 mg Tablet 7.5 mg PO DIRECTED Rx Instructions: 7.5mg Sunday potassium chloride 10 mEq tablet extended release 10 meq PO DAILY PRN (Reason: only take with bumex) Qty: 60 0RF levothyroxine 112 mcg tablet 112 mcg PO DAILY Adempas 2.5 mg Tablet 2.5 mg PO TID Humulin 70/30 U-100 Insulin 100 unit/mL (70-30) suspension See Rx Instructions .ROUTE .COMPLEX Rx Instructions: INJECT FROM 25 TO 45 UNITS PER SLIDING SCALE TWICE DAILY bumetanide 1 mg tablet 2 mg PO DAILY Referrals: Patrick Nick MD [Primary Care Provider] - Transfer Attestations Time Spent in Transfer Care: greater than 30 min Quality Metrics Clinical Quality Measures [ No reported AMI, CVA or VTE this stay] Coding Level of Care Code 03587 Total time (in minutes) for Discharge: 35 Diagnoses History of pulmonary embolism Z86.711 Chest pain R07.9 Peripheral arterial disease I73.9 Supratherapeutic INR R79.1 Warfarin anticoagulation Z79.01 S/P TAVR (transcatheter aortic valve replacement) Z95.2 Tobacco abuse Z72.0 Pulmonary hypertension I27.20 Diabetes E11.9 Acute on chronic kidney failure N17.9; N18.9 Acute renal failure type: unspecified Chronic kidney disease stage: unspecified stage Anemia D64.9 Pericardial effusion I31.39
== END 2023-12-05 08:25 | disposition home or self-care (01) | DRG 280 ==
LOC: ER 14:22 → CSU 14:35
PROVIDERS: Admitting Provider Family Medicine; Emergency Provider Internal Medicine; PCP Family Medicine; Visit Provider Internal Medicine
DX: I13.0 Hypertensive heart and chronic kidney disease with heart failure and stage 1 through stage 4 chronic kidney disease, or unspecified chronic kidney disease (principal); I50.23 Acute on chronic systolic (congestive) heart failure; I21.4 Non-ST elevation (NSTEMI) myocardial infarction; J96.01 Acute respiratory failure with hypoxia; E87.1 Hypo-osmolality and hyponatremia; N17.9 Acute kidney failure, unspecified; I31.39 Other pericardial effusion (noninflammatory); N18.9 Chronic kidney disease, unspecified; E11.22 Type 2 diabetes mellitus with diabetic chronic kidney disease; I27.20 Pulmonary hypertension, unspecified; J43.9 Emphysema, unspecified; E03.9 Hypothyroidism, unspecified; R79.1 Abnormal coagulation profile; D63.1 Anemia in chronic kidney disease; E78.5 Hyperlipidemia, unspecified; I48.91 Unspecified atrial fibrillation; Z11.52 Encounter for screening for COVID-19; Z79.4 Long term (current) use of insulin; Z79.82 Long term (current) use of aspirin; Z79.01 Long term (current) use of anticoagulants; Z86.711 Personal history of pulmonary embolism; Z95.2 Presence of prosthetic heart valve; Z85.828 Personal history of other malignant neoplasm of skin; Z72.0 Tobacco use
CPT/HCPCS: 36415; 36416; 36600; 71046; 71250; 76770; 80053; 80061; 81001; 82550; 82803; 82962; 83605; 83735; 83880; 84100; 84145; 84439; 84443; 84484; 85025; 85610; 86140; 87040; 87086; 87426; 87486; 87581; 87633; 87804; 93005; 93306; 96372; 96376; 99285; C9113; J1815; J1956; J2270; J3490; P9046

== ENCOUNTER → 2024-01-25 13:46 | Outpatient (BNVA) | payer MEDICARE, SELFPAY | PROVIDERS: PCP Family Medicine; Visit Provider Podiatrist Foot & Ankle Surgery | DX: L84 Corns and callosities (principal); M21.622 Bunionette of left foot; E11.69 Type 2 diabetes mellitus with other specified complication; Z79.4 Long term (current) use of insulin | CPT/HCPCS: 99213 ==

== ENCOUNTER 2024-04-25 20:55 | Emergency (ER) | payer MEDICARE, SELFPAY ==
--- NOTE | 2024-04-25 20:57 | XRR_ITS ---
PROCEDURE INFORMATION: Exam: XR Left Shoulder Exam date and time: 04/25/2024 9:05 PM Age: 69 years old Clinical indication: Left; Patient HX: Lt shoulder pain; Previous rotator cuff injury TECHNIQUE: Imaging protocol: Radiologic exam of the left shoulder. Views: 2 or more views. COMPARISON: CT chest con [id number] 12/02/2023 8:21 PM FINDINGS: Bones/joints: Moderate thoracic spondylosis. Moderate to severe left acromioclavicular arthropathy. Soft tissues: Normal. XR/XR shoulder LT min 2V* [id number] IMPRESSION: Moderate to severe left acromioclavicular arthropathy.
[2024-04-25 21:01] VITALS: BP 121/50; PULSE 86; RESP 16; TEMP 36.4; O2SAT 93; BMI 27.9
--- NOTE | 2024-04-25 21:38 | W.ED.FALL ---
HPI - Fall General: Chief Complaint: Fall Stated Complaint: fall, Left shoulder pain Time Seen by Provider: 04/25/24 21:16 Source: patient Mode of arrival: ambulatory Limitations: no limitations History of Present Illness: 69-year-old male who states that he tripped over dog leash fell onto his left shoulder onto grass. He states this happened this evening he had some left shoulder pain since then. He rates the pain a 4 out of 10 is full range of motion at arm. Denies hitting his head denies any head or neck pain. Associated symptoms-after fall: Denies abdominal pain, chest pain, headache(s) or neck pain Review of Systems Const: Denies: fever(s), chills, body aches or change in appetite ENMT: Denies: throat pain or dental pain Card: Denies: chest pain Resp: Denies: dyspnea GI: Denies: abdominal pain, nausea, vomiting or diarrhea Musc: Reports: extremity pain; Denies: neck pain or back pain Skin/Breast: Denies: rash Neuro: Denies: headache(s) PFSH ED PFSH: Medical History Pericardial effusion Tobacco abuse Anemia Diabetes Warfarin anticoagulation Chest pain History of pulmonary embolism Congestive heart failure History of nonmelanoma skin cancer Hypothalamic hypothyroidism Hypertension History of blood clots COPD (chronic obstructive pulmonary disease) History of pulmonary embolism Surgical History S/P TAVR (transcatheter aortic valve replacement) History of rotator cuff surgery Social History Smoking and tobacco/nicotine status: current every day tobacco/nicotine user Alcohol intake: never Substance/Drug Use: never Physical Exam Const: COMMON NORMALS: no acute distress, patient oriented x3 and healthy appearing HENMT: COMMON NORMALS: normocephalic and atraumatic HEAD & SCALP: normocephalic and atraumatic Eye: COMMON NORMALS: conjunctivae normal CONJUNCTIVA: Yes conjunctivae normal Neck/C-Spine: COMMON NORMALS: full ROM and supple Chest: COMMONS NORMALS: normal inspection of the chest Resp: COMMON NORMALS: normal respiratory effort Cardio: COMMON NORMALS: regular rate RATE: regular rate Extremity: COMMON NORMALS: normal to inspection and full ROM NARRATIVE EXTREMITY EXAM: Slight tenderness over left shoulder no obvious deformity has full range of motion. Neuro: COMMON NORMALS: patient oriented x3, moves all extremities and no focal motor deficits Psych: COMMON NORMALS: mental status grossly normal, Normal thought process present and cooperative THOUGHT PROCESS: Normal thought process present Skin: COMMON NORMALS: no rashes or lesions noted and no wounds GENERAL SKIN EXAM: no rashes or lesions noted Course Vital Signs: Vital signs: Vital Signs Temperature 97.6 F 04/25/24 21:01 Pulse Rate 86 04/25/24 21:01 Respiratory Rate 16 04/25/24 21:01 Blood Pressure 121/50 04/25/24 21:01 Pulse Oximetry 93 04/25/24 21:01 Oxygen Delivery Me thod Room Air 04/25/24 21:01 MDM - Fall Medical Decision Making Patient presents here with left shoulder injury from a fall x-ray shows no fracture or dislocation is full range of motion he stable for discharge follow-up with PCP return if worsening. Medical Records I reviewed the patient's medical records. Lab Data Radiology Impressions Shoulder X-Ray 04/25/24 20:57 IMPRESSION: Moderate to severe left acromioclavicular arthropathy. All radiology interpretation(s) finalized by discharge Discharge Plan Discharge Patient Disposition: Home Clinical Impression: Contusion of left shoulder Condition: Stable Prescriptions: New Naprosyn 500 mg tablet 500 mg PO BID PRN (Reason: pain) Qty: 20 0RF No Action warfarin 5 mg tablet 5 mg PO DIRECTED Rx Instructions: 5mg dosing , SUN, , SUN, SAT, AND SUN aspirin 81 mg tablet,delayed release (DR/EC) 81 mg PO QAM (DME) Cam boot to left See Rx Instructions .Route .MEDSUPPLY Qty: 1 0RF Rx Instructions: As directed simvastatin 40 mg tablet 40 mg PO DAILY Qty: 30 0RF albuterol sulfate 90 mcg/actuation HFA aerosol inhaler 2 inh INHALATION Q6H PRN (Reason: shortness of breath or wheezing) Qty: 8 0RF warfarin 7.5 mg Tablet 7.5 mg PO DIRECTED Rx Instructions: 7.5mg Sunday potassium chloride 10 mEq tablet extended release 10 meq PO DAILY PRN (Reason: only take with bumex) Qty: 60 0RF levothyroxine 112 mcg tablet 112 mcg PO DAILY Adempas 2.5 mg Tablet 2.5 mg PO TID Humulin 70/30 U-100 Insulin 100 unit/mL (70-30) suspension See Rx Instructions .ROUTE .COMPLEX Rx Instructions: INJECT FROM 25 TO 45 UNITS PER SLIDING SCALE TWICE DAILY bumetanide 1 mg tablet 2 mg PO DAILY Discharge Orders: Discharge ED (Routine); Ordered 04/25/24 Ordered By: Henry Garcia Referrals: Patrick Nick MD [Primary Care Provider] - 4-7 days Discharge Diet: Advance as tolerated Discharge Activity: Resume usual activity Patient Instructions: Shoulder Sprain (ED) Coding Level of Care Code ED [employer]on Inspector for José Cade
[2024-04-25] MEDS: naproxen 500 mg Tablet PO (21:45)
[2024-04-25 21:49] VITALS: PULSE 84; RESP 18; O2SAT 94
== END 2024-04-25 21:47 | disposition home or self-care (01) ==
PROVIDERS: Emergency Provider Emergency Medicine; PCP Family Medicine
DX: S40.012A Contusion of left shoulder, initial encounter (principal); Z79.01 Long term (current) use of anticoagulants; Z79.82 Long term (current) use of aspirin; Z79.4 Long term (current) use of insulin; Z72.0 Tobacco use; E11.9 Type 2 diabetes mellitus without complications; I11.0 Hypertensive heart disease with heart failure; I50.9 Heart failure, unspecified; J44.9 Chronic obstructive pulmonary disease, unspecified; W18.09XA Striking against other object with subsequent fall, initial encounter
CPT/HCPCS: 73030; 99283

== ENCOUNTER 2024-05-23 19:40 | Emergency (ER) | payer MEDICARE, SELFPAY ==
[2024-05-23 19:46] VITALS: BP 124/57; PULSE 95; RESP 15; TEMP 36.6; O2SAT 91; BMI 27.9
--- NOTE | 2024-05-23 19:58 | ED_ITS ---
HPI - Extremity Problem 2 General: Chief complaint: Extremity Problem,Nontraumatic Stated complaint: Legs Swelling Time Seen by Provider: 05/23/24 19:47 Source: patient Mode of arrival: ambulatory Limitations: no limitations History of Present Illness: Patient is a 69-year-old male who presents to the emergency department complaining of worsening bilateral edema for the past few days. Patient has extensive past medical history, including COPD, CHF, pulmonary embolism, diabetes, and hypothyroidism. He states he sleeps in a recliner at night as lying flat is not possible for him. He is also noting some worsening of shortness of breath. He spent 2 weeks in the [facility] earlier this year in November for multiple issues, including pulmonary effusions and blood transfusion. He does not use oxygen regularly. He does take 1 g of bumetanide twice a day, denies any recent changes in this. Also underwent a TAVR procedure last September. Patient is a former 2 pack a day smoker, states he quit in September as well. Denies any chest pain, palpitations, syncope, or other symptoms at this time. MD Complaint: extremity swelling Location: left, right and lower extremity Associated symptoms: Deny chest pain, fever(s) or rash Review of Systems 2 General: Reports: 10 or more systems reviewed and unremarkable except in HPI and below Const: Denies: fever(s), chills or fatigue Eyes: Denies: change in vision ENMT: Denies: throat pain, ear or mastoid pain or nasal discharge Card: Reports: edema (Bilateral) and swelling of feet/ankles; Denies: chest pain, palpitations or lightheadedness Resp: Reports: dyspnea and non-productive cough; Denies: wheezing GI: Denies: abdominal pain, nausea, vomiting, diarrhea or constipation : Denies: flank pain, difficulty urinating, dysuria or urinary frequency Musc: Denies: neck pain, back pain or joint pain Skin/Breast: Denies: rash Neuro: Denies: headache(s), numbness in extremities or weakness in extremities PFSH ED 2 PFSH: Medical History Pericardial effusion Tobacco abuse Anemia Diabetes Warfarin anticoagulation Chest pain History of pulmonary embolism Congestive heart failure History of nonmelanoma skin cancer Hypothalamic hypothyroidism Hypertension History of blood clots COPD (chronic obstructive pulmonary disease) History of pulmonary embolism Surgical History S/P TAVR (transcatheter aortic valve replacement) History of rotator cuff surgery Social History Smoking and tobacco/nicotine status: current every day tobacco/nicotine user Alcohol intake: never Substance/Drug Use: never Physical Exam 2 Const: COMMON NORMALS: no acute distress, patient oriented x3 and no limitations GENERAL APPEARANCE: cooperative, comfortable and well developed ORIENTATION/CONSCIOUSNESS: Yes awake, Yes oriented to person, Yes oriented to place and Yes oriented to time HENMT: COMMON NORMALS: normocephalic, atraumatic and hearing grossly normal bilaterally HEAD & SCALP: normocephalic and atraumatic Eye: COMMON NORMALS: Equal, round and reactive pupils present, EOMs intact bilaterally and conjunctivae normal CONJUNCTIVA: Yes conjunctivae normal P UPIL: Yes Equal, round and reactive pupils present Neck/C-Spine: COMMON NORMALS: full ROM, supple and no JVD Chest: COMMONS NORMALS: normal inspection of the chest Resp: COMMON NORMALS: normal respiratory effort, No retractions, No use of accessory muscles and clear to auscultation bilaterally AUSCULTATION: clear to auscultation bilaterally Cardio: COMMON NORMALS: no JVD, regular rate, regular rhythm, No clicks present (Cardio), No rub (Cardio) and Peripheral pulses 2+ throughout RATE: r egular rate RHYTHM: regular rhythm HEART SOUNDS: Murmur heart sound present systolic Intensity: II/ PERIPHERAL PULSES: Peripheral pulses 2+ throughout GI: COMMON NORMALS: Soft to palpation and non-tender INSPECTION: Yes abdominal distension AUSCULTATION: Yes normoactive bowel sounds PALPATION: Yes Soft to palpation RECTAL EXAM: Yes deferred Extremity: COMMON NORMALS: full ROM and capillary refill normal NARRATIVE EXTREMITY EXAM: Bilateral 2+ pitting edema up to the knees. Neuro: COMMON NORMALS: patient oriented x3, moves all extremities, no focal motor deficits and no sensory deficits noted SENSORIUM/ORIENTATION: Yes oriented to person, Yes oriented to place and Yes oriented to time Psych: COMMON NORMALS: mental status grossly normal and Normal thought process present THOUGHT PROCESS: Normal thought process present Skin: COMMON NORMALS: no rashes or lesions noted GENERAL SKIN EXAM: no rashes or lesions noted Course 2 Vital Signs: Vital signs: Vital Signs Temperature 97.8 F 05/23/24 19:46 Pulse Rate 91 05/23/24 20:39 Respiratory Rate 15 05/23/24 19:46 Blood Pressure 139/70 05/23/24 21:30 Pulse Oximetry 92 05/23/24 21:30 Oxygen Delivery Me thod Room Air 05/23/24 21:30 MDM - Extremity (Nontraumatic) Medical Decision Making Patient presented for acute on chronic lower extremity edema, currently on 1 mg of Bumex twice a day. Has an extensive medical history including CHF, COPD, and diabetes. Last hospitalized in November for multiple pleural effusions and blood loss anemia of unknown source. Examination did reveal 2+ pitting edema bilaterally up to the knees. His cardiopulmonary auscultation was normal. Initial EKG obtained was reviewed with Dr. Smith, and did show normal sinus rhythm with a first-degree AV block rate of [address] segment changes. Chest x-ray did not demonstrate any cardiopulmonary abnormalities. All of his blood work did show either chronic findings or improvement from prior labs. Hemoglobin is chronically low and today is 8.8, last recorded hemoglobin was 8.2. His INR does appear within therapeutic range as he is on Coumadin. Electrolytes did not demonstrate any abnormalities and he does have history of chronic kidney disease. BUN and creatinine are both within normal range or improved from prior. His urine did show blood, likely from his warfarin anticoagulation. His BNP is far decreased from prior, as his last recorded BNP was 8000 and today's is 2500. Has history of hypothyroidism and his TSH is normal today. Along with his normal workup, his vitals have remained stable throughout the ED course. O2 saturation is noted to be chronically 91?95, of which has been today on room air. He does not use oxygen at home. Blood pressures have remained normal and he has been afebrile with normal respirations. I discussed this case with Dr. Smith, who agrees that patient can just have his Bumex doubled as he is on a very low dose at this time. Instead of 2 mg, he will be up to 4 mg twice a day and follow-up early next week with primary care's office for reevaluation. If it anytime he has any change in respiratory status or other concerning symptoms, strict return precautions are given. He will be discharged home at this time. Lab Data 05/23/24 20:09 05/23/24 20:09 Radiology Impressions Chest X-Ray 05/23/24 19:59 IMPRESSION: No acute findings. Laboratory Results WBC 9.48 10^3/uL (3.29-11.43) 05/23/24 20:09 RBC 2.87 10^6/uL (3.85-5.65) L 05/23/24 20:09 Hgb 8.80 g/dL (11.27-16.99) L 05/23/24 20:09 Hct 27.6 % (37-53) L 05/23/24 20:09 MCV 96.2 fl (82-101) 05/23/24 20:09 MCH 30.7 pg (27-33) 05/23/24 20:09 MCHC 31.9 g/dL (30-55) 05/23/24 20:09 RDW 14.6 % (12.1-15.1) 05/23/24 20:09 Plt Count 151 10^3/cmm (157-399) L 05/23/24 20:09 MPV 9.2 fL (7.4-10.4) 05/23/24 20:09 Neut % (Auto) 56.0 % 05/23/24 20:09 Lymph % (Auto) 31.5 % 05/23/24 20:09 Sebastian % (Auto) 8.5 % 05/23/24 20:09 Eos % (Auto) 3.4 % 05/23/24 20:09 Baso % (Auto) 0.4 % 05/23/24 20:09 Neut # (Auto) 5.30 10^3/uL (1.8-7.7) 05/23/24 20:09 Lymph # (Auto) 3.0 10^3/uL (0.8-4.8) 05/23/24 20:09 Sebastian # (Auto) 0.8 10^3/uL (0.2-0.9) 05/23/24 20:09 Eos # (Auto) 0.3 10^3/uL (0.0-0.8) 05/23/24 20:09 Baso # (Auto) 0.0 10^3/uL (0.0-0.1) 05/23/24 20:09 Nucleated RBC % (auto) 0 % 05/23/24 20:09 Nucleated RBCs # 0.0 /100WBC 05/23/24 20:09 PT 15.20 SECONDS (12.1-14.9) H 05/23/24 20:09 INR 1.17 (0.8-1.2) 05/23/24 20:09 Sodium 142 mmol/L (136-145) 05/23/24 20:09 Potassium 4.1 mmol/L (3.5-5.1) 05/23/24 20:09 Chloride 105 mmol/L (98-107) 05/23/24 20:09 Carbon Dioxide 24 mmol/L (22-29) 05/23/24 20:09 Anion Gap 17.1 (5-19) 05/23/24 20:09 BUN 48 mg/dL (8-23) H 05/23/24 20:09 Creatinine 2.3 mg/dL (0.7-1.2) H 05/23/24 20:09 GFR Calculation 28.3 mL/min (90-130) L 05/23/24 20:09 Glucose 195 mg/dL (65-115) H 05/23/24 20:09 Calculated Osmolality 312 mOsm/kg (285-295) H 05/23/24 20:09 Calcium 9.0 mg/dL (8.5-10.5) 05/23/24 20:09 Total Bilirubin 0.3 mg/dL (0.15-1.2) 05/23/24 20:09 AST 17 U/L (0-40) 05/23/24 20:09 ALT 11 U/L (0-41) 05/23/24 20:09 Alkaline Phosphatase 142 U/L (40-130) H 05/23/24 20:09 NT-Pro-B Natriuret Pep 2592 pg/mL (0-125) H 05/23/24 20:09 Total Protein 6.7 g/dL (6.6-8.7) 05/23/24 20:09 Albumin 3.7 g/dL (3.5-5.2) 05/23/24 20:09 Globulin 3.0 g/dL (1.3-4.6) 05/23/24 20:09 TSH 2.34 uIU/mL (0.27-4.20) 05/23/24 20:09 Urine Color Yellow (Yellow) 05/23/24 21:08 Urine Appearance Clear (CLEAR) 05/23/24 21:08 Urine pH 6 (5-7) 05/23/24 21:08 Ur Specific [place] 1.010 (1.005-1.030) 05/23/24 21:08 Urine Protein 2+ (Negative) H 05/23/24 21:08 Urine Glucose (UA) 2+ (Normal) H 05/23/24 21:08 Urine Ketones 1+ (Negative) H 05/23/24 21:08 Urine Blood 2+ (Negative) H 05/23/24 21:08 Urine Nitrate Negative (Negative) 05/23/24 21:08 Urine Bilirubin Neg (Negative) 05/23/24 21:08 Urine Urobilinogen Neg mg/dL (Negative) 05/23/24 21:08 Ur Leukocyte Esterase Negative (Negative) 05/23/24 21:08 Urine RBC 5-10 /hpf (0-2) H 05/23/24 21:08 Urine WBC 0-4 /hpf (0-5) H 05/23/24 21:08 Ur Squamous Epith Cells 0-4 /hpf (0-5) H 05/23/24 21:08 Amorphous Sediment Trace /hpf 05/23/24 21:08 Urine Bacteria Trace /hpf (NONE) 05/23/24 21:08 Hyaline Casts 0-4 /lpf H 05/23/24 21:08 Urine Yeast 1+ /hpf H 05/23/24 21:08 All radiology interpretation(s) finalized by discharge Discharge Plan Discharge Patient Disposition: Home Clinical Impression: CHF (congestive heart failure), Chronic kidney disease Condition: Stable Prescriptions: No Action warfarin 5 mg tablet 5 mg PO DIRECTED Rx Instructions: 5mg dosing TU, WED, , FRI, SAT, AND SUN aspirin 81 mg tablet,delayed release (DR/EC) 81 mg PO QAM (DME) Cam boot to left See Rx Instructions .Route .MEDSUPPLY Qty: 1 0RF Rx Instructions: As directed simvastatin 40 mg tablet 40 mg PO DAILY Qty: 30 0RF albuterol sulfate 90 mcg/actuation HFA aerosol inhaler 2 inh INHALATION Q6H PRN (Reason: shortness of breath or wheezing) Qty: 8 0RF warfarin 7.5 mg Tablet 7.5 mg PO DIRECTED Rx Instructions: 7.5mg Sunday potassium chloride 10 mEq tablet extended release 10 meq PO DAILY PRN (Reason: only take with bumex) Qty: 60 0RF levothyroxine 112 mcg tablet 112 mcg PO DAILY Adempas 2.5 mg Tablet 2.5 mg PO TID Humulin 70/30 U-100 Insulin 100 unit/mL (70-30) suspension See Rx Instructions .ROUTE .COMPLEX Rx Instructions: INJECT FROM 25 TO 45 UNITS PER SLIDING SCALE TWICE DAILY bumetanide 1 mg tablet 2 mg PO DAILY Naprosyn 500 mg tablet 500 mg PO BID PRN (Reason: pain) Qty: 20 0RF Discharge Orders: Discharge ED (Routine); Ordered 05/23/24 Ordered By: Wyatt Dunlap Referrals: Patrick Nick MD [Primary Care Provider] - Discharge Diet: As Directed Discharge Activity: Increase activity as tolerated Patient Instructions: Heart Failure (ED), Chronic Kidney Disease (ED) Activity Restrictions/Additional Instructions: Double your Bumex from 1 mg twice a day to 2 mg twice a day for a total of 4 mg a day. Follow-up in primary care's office in 3-4 days as instructed. Continue other medications as normal. If you develop any worsening shortness of breath, worsening swelling, or other concerning symptoms please return to the emergency department immediately. Coding Level of Care Code ED Granulating Machine Operator for José Cade
--- NOTE | 2024-05-23 19:59 | ECG_ITS ---
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 Measurements Intervals [place] Rate: 92 P: 3 [place]: 220 QRS: 6 QRSD: 85 T: 76 QT: 353 QTc: 438 Interpretive Statements SINUS RHYTHM WITH FIRST DEGREE AV BLOCK Compared to ECG 12/02/2023 16:44:06 First degree AV block now present Sinus tachycardia no longer present Myocardial infarct finding no longer present Electronically Signed On 05-25-2024 19:33:38 CDT by Franklin Nuno M.D. [id number]
--- NOTE | 2024-05-23 19:59 | XRR_ITS ---
PROCEDURE INFORMATION: Exam: XR Chest Exam date and time: 05/23/2024 8:01 PM Age: 69 years old Clinical indication: Dyspnea; Prior surgery; Surgery date: 6+ months; Surgery type: Aortic valve; Additional info: Sob/swelling/hx of copd and chf TECHNIQUE: Imaging protocol: Radiologic exam of the chest. Views: 1 view. COMPARISON: 1. CT chest wo con [id number] 12/02/2023 8:21 PM 2. CR XR chest 2V* [id number] 12/02/2023 11:44 AM FINDINGS: Lungs: Mild left mid and lower lung zone linear atelectasis versus scarring. No consolidation. Pleural spaces: Unremarkable. No pleural effusion. No pneumothorax. Heart/Mediastinum: Stably enlarged cardiac silhouette. Prior TAVR. Vasculature: Aortic arch atherosclerotic calcification. Bones/joints: Degenerative changes along the spine and shoulders. Right humeral head suture anchor. XR/XR chest 1V portable [id number] IMPRESSION: No acute findings.
[2024-05-23 20:15] LABS: Basophils % 0.4 %; Eosinophils # 0.3 10^3/uL (0.0-0.8); Eosinophils % 3.4 %; Hematocrit 27.6 % (37-53); Lymphocytes % 31.5 %; Mean Corpuscular HGB Conc 31.9 g/dL (30-55); Mean Corpuscular Hemoglobin 30.7 pg (27-33); Mean Corpuscular Volume 96.2 fl (82-101); Mean Platelet Volume 9.2 fL (7.4-10.4); Monocytes # 0.8 10^3/uL (0.2-0.9); Monocytes % 8.5 %; Nucleated Red Blood Cells % 0 %; Platelet Count 151 10^3/cmm (157-399); Red Blood Count 2.87 10^6/uL (3.85-5.65); Red Cell Distribution Width 14.6 % (12.1-15.1); White Blood Count 9.48 10^3/uL (3.29-11.43)
[2024-05-23 20:35] LABS: INR 1.17 (0.8-1.2)
[2024-05-23 20:39] VITALS: BP 125/67; PULSE 91; O2SAT 90
[2024-05-23 20:48] LABS: Alanine Aminotransferase 11 U/L (0-41); Albumin Level 3.7 g/dL (3.5-5.2); Alkaline Phosphatase 142 U/L (40-130); Anion Gap 17.1 (5-19); Aspartate Amino Transferase 17 U/L (0-40); Blood Urea Nitrogen 48 mg/dL (8-23); Carbon Dioxide 24 mmol/L (22-29); Chloride 105 mmol/L (98-107); Creatinine Clr Calc Pharmacy 27.5157; Glomerular Filtration Rate 28.3 mL/min (90-130); Glucose 195 mg/dL (65-115); NT Pro B Type Natriuretic Pept 2592 pg/mL (0-125); Osmolality Calculated 312 mOsm/kg (285-295); Potassium 4.1 mmol/L (3.5-5.1); Sodium 142 mmol/L (136-145); Thyroid Stimulating Hormone 2.34 uIU/mL (0.27-4.20); Total Bilirubin 0.3 mg/dL (0.15-1.2); Total Protein 6.7 g/dL (6.6-8.7)
[2024-05-23 21:28] LABS: Add Urine Culture? Yes; Add Urine Microscopic? YES; Amorphous Sediment Urine TRACE /hpf; Bacteria Urine TRACE /hpf; Bilirubin Urine Neg (Negative); Blood Urine 2+ (Negative); Glucose Urine UA 2+ (Normal); Hyaline Casts Urine 0-4 /lpf; Ketones Urine 1+ (Negative); Leukocyte Esterase Urine Negative (Negative); Nitrate Urine Negative (Negative); Protein Urine 2+ (Negative); Squamous Epithelial Cell Urine 0-4 /hpf (0-5); Urine Appearance Clear (CLEAR); Urine Color Yellow (Yellow); Urobilinogen Urine Neg (Negative); WBC Urine 0-4 /hpf (0-5); pH Urine 6 (5-7)
[2024-05-23 21:30] VITALS: BP 139/70; O2SAT 92
== END 2024-05-23 21:59 | disposition home or self-care (01) ==
PROVIDERS: Emergency Provider Physician Assistant; PCP Family Medicine
DX: R60.0 Localized edema (principal); I13.0 Hypertensive heart and chronic kidney disease with heart failure and stage 1 through stage 4 chronic kidney disease, or unspecified chronic kidney disease; I50.9 Heart failure, unspecified; N18.9 Chronic kidney disease, unspecified; E11.22 Type 2 diabetes mellitus with diabetic chronic kidney disease; E03.9 Hypothyroidism, unspecified; J44.9 Chronic obstructive pulmonary disease, unspecified; I44.0 Atrioventricular block, first degree; F17.200 Nicotine dependence, unspecified, uncomplicated; Z79.899 Other long term (current) drug therapy; Z79.01 Long term (current) use of anticoagulants; Z79.82 Long term (current) use of aspirin; Z79.4 Long term (current) use of insulin; Z86.711 Personal history of pulmonary embolism; Z87.891 Personal history of nicotine dependence; Z95.2 Presence of prosthetic heart valve
CPT/HCPCS: 71045; 80053; 81001; 83880; 84443; 85025; 85610; 87086; 93005; 99285

== ENCOUNTER → 2024-08-25 07:49 | Outpatient (BNVA) | payer MEDICARE, SELFPAY | PROVIDERS: PCP Family Medicine; Visit Provider Podiatrist Foot & Ankle Surgery | DX: I73.9 Peripheral vascular disease, unspecified; L60.3 Nail dystrophy; L97.522 Non-pressure chronic ulcer of other part of left foot with fat layer exposed; M79.672 Pain in left foot; M21.622 Bunionette of left foot; E11.621 Type 2 diabetes mellitus with foot ulcer; Z79.4 Long term (current) use of insulin | CPT/HCPCS: 11042 ==

== ENCOUNTER → 2024-09-15 08:05 | Outpatient (BNVA) | payer MEDICARE, SELFPAY | PROVIDERS: PCP Family Medicine; Visit Provider Podiatrist Foot & Ankle Surgery | DX: E11.42 Type 2 diabetes mellitus with diabetic polyneuropathy (principal); E11.621 Type 2 diabetes mellitus with foot ulcer; L97.522 Non-pressure chronic ulcer of other part of left foot with fat layer exposed; I73.9 Peripheral vascular disease, unspecified; M21.622 Bunionette of left foot; L60.3 Nail dystrophy | CPT/HCPCS: 99213 ==

== ENCOUNTER → 2024-11-03 07:50 | Outpatient (BNVA) | payer MEDICARE, SELFPAY | PROVIDERS: PCP Family Medicine; Visit Provider Podiatrist Foot & Ankle Surgery | DX: E11.8 Type 2 diabetes mellitus with unspecified complications (principal); E11.42 Type 2 diabetes mellitus with diabetic polyneuropathy; I73.9 Peripheral vascular disease, unspecified; M21.622 Bunionette of left foot; L60.3 Nail dystrophy; Z79.4 Long term (current) use of insulin | CPT/HCPCS: 99213 ==

== ENCOUNTER → 2024-11-25 10:35 | Outpatient (BNVA) | payer MEDICARE, SELFPAY | PROVIDERS: PCP Family Medicine; Visit Provider Nurse Practitioner Family | DX: L81.4 Other melanin hyperpigmentation (principal); D22.61 Melanocytic nevi of right upper limb, including shoulder; L57.8 Other skin changes due to chronic exposure to nonionizing radiation; L82.1 Other seborrheic keratosis; D29.4 Benign neoplasm of scrotum; Z08 Encounter for follow-up examination after completed treatment for malignant neoplasm; Z85.828 Personal history of other malignant neoplasm of skin; D48.5 Neoplasm of uncertain behavior of skin; L57.0 Actinic keratosis | CPT/HCPCS: 11102; 17000; 99213 ==

== ENCOUNTER → 2024-12-31 10:20 | Outpatient (BNVA) | payer MEDICARE, SELFPAY | PROVIDERS: PCP Family Medicine; Visit Provider Dermatology | DX: L81.4 Other melanin hyperpigmentation (principal); L82.1 Other seborrheic keratosis; D18.01 Hemangioma of skin and subcutaneous tissue; Z08 Encounter for follow-up examination after completed treatment for malignant neoplasm; Z85.828 Personal history of other malignant neoplasm of skin; C44.612 Basal cell carcinoma of skin of right upper limb, including shoulder; D48.5 Neoplasm of uncertain behavior of skin; L57.0 Actinic keratosis | CPT/HCPCS: 11102; 17000; 17262; 99213 ==

== ENCOUNTER → 2025-01-26 08:54 | Outpatient (BNVA) | payer MEDICARE, SELFPAY | PROVIDERS: PCP Family Medicine; Visit Provider Podiatrist Foot & Ankle Surgery | DX: E11.8 Type 2 diabetes mellitus with unspecified complications (principal); E11.42 Type 2 diabetes mellitus with diabetic polyneuropathy; I73.9 Peripheral vascular disease, unspecified; M21.622 Bunionette of left foot; L60.3 Nail dystrophy; Z79.4 Long term (current) use of insulin | CPT/HCPCS: 99213 ==

== ENCOUNTER → 2025-04-20 11:18 | Outpatient (BNVA) | payer MEDICARE, SELFPAY | PROVIDERS: PCP Family Medicine; Visit Provider Podiatrist Foot & Ankle Surgery | DX: E11.42 Type 2 diabetes mellitus with diabetic polyneuropathy (principal); L60.3 Nail dystrophy; E11.621 Type 2 diabetes mellitus with foot ulcer; L97.523 Non-pressure chronic ulcer of other part of left foot with necrosis of muscle; E11.8 Type 2 diabetes mellitus with unspecified complications; I73.9 Peripheral vascular disease, unspecified; M21.622 Bunionette of left foot; Z79.4 Long term (current) use of insulin | CPT/HCPCS: 11043; 11721 ==

== ENCOUNTER 2025-04-20 11:58 | Outpatient (CLI) | payer MEDICARE, SELFPAY | END 2025-04-20 11:59 | PROVIDERS: PCP Family Medicine; Visit Provider Podiatrist Foot & Ankle Surgery | DX: Z46.89 Encounter for fitting and adjustment of other specified devices (principal); L97.523 Non-pressure chronic ulcer of other part of left foot with necrosis of muscle; E11.42 Type 2 diabetes mellitus with diabetic polyneuropathy | CPT/HCPCS: L4361 ==

== ENCOUNTER 2025-04-23 09:26 | Outpatient (CLI) | payer MEDICARE, SELFPAY ==
--- NOTE | 2025-04-23 09:34 | XR_ITS ---
WS: [id number] XR foot LT min 3V* [id number] REASON FOR EXAM: left 5th metarsal plantar wound FINDINGS: Extensive arterial vascular calcifications in the foot. Mild to moderate osteoarthritis involving the PIP and DIP joints of the toes. Similar arthropathy in the MCP joint with mild valgus subluxation.. Similar arthropathy in the first TMT joint with mild varus subluxation. Remaining joint spaces of the forefoot are intact and relatively well preserved. Mild narrowing and subchondral sclerosis and osteophytosis in the talonavicular and navicular medial cuneiform articulations of the midfoot. Mild to moderate narrowing of the posterior subtalar joint with mild to moderate subchondral sclerosis and osteophytosis. No periosteal reaction or bone erosion. There is a focus of rarefaction in the distal head of the fifth metatarsal, medial, plantar surface. XR/XR foot LT min 3V* [id number] IMPRESSION: Extensive arterial vascular calcifications in the foot. Osteoarthritis and subluxations in the forefoot as above. Osteoarthritis in the midfoot and hindfoot as above. Equivocal abnormality in the distal head of the fifth metatarsal which could re present reactive hyperemia secondary to adjacent soft tissue inflammation howev er early osteomyelitis would need consideration.
[2025-04-23 16:15] LABS: Basophils % 0.4 %; Eosinophils # 0.5 10^3/uL (0.0-0.8); Eosinophils % 5.7 %; Lymphocytes # 2.1 10^3/uL (0.8-4.8); Lymphocytes % 26.8 %; Mean Corpuscular HGB Conc 30.7 g/dL (30-55); Mean Corpuscular Hemoglobin 29.3 pg (27-33); Mean Corpuscular Volume 95.4 fl (82-101); Mean Platelet Volume 10.2 fL (7.4-10.4); Monocytes # 0.6 10^3/uL (0.2-0.9); Monocytes % 8.1 %; Neutrophils # 4.67 10^3/uL (1.8-7.7); Neutrophils % 58.6 %; Nucleated Red Blood Cells % 0 %; Platelet Count 144 10^3/cmm (157-399); Red Blood Count 2.83 10^6/uL (3.85-5.65); Red Cell Distribution Width 13.2 % (12.1-15.1); White Blood Count 7.95 10^3/uL (3.29-11.43)
[2025-04-23 16:36] LABS: Anion Gap 17.3 (5-19); Blood Urea Nitrogen 53 mg/dL (8-23); Calcium 8.5 mg/dL (8.5-10.5); Carbon Dioxide 18 mmol/L (22-29); Chloride 108 mmol/L (98-107); Glucose 167 mg/dL (65-115); Osmolality Calculated 306 mOsm/kg (285-295); Potassium 4.3 mmol/L (3.5-5.1); Sodium 139 mmol/L (136-145)
[2025-04-23 16:54] LABS: Estmated Average Glucose 166; Hemoglobin A1C 7.4 % (4.0-6.0)
== END 2025-04-23 09:27 | disposition home or self-care (01) ==
PROVIDERS: PCP Family Medicine; Visit Provider Thoracic Surgery (Cardiothoracic Vascular Surgery)
DX: E11.52 Type 2 diabetes mellitus with diabetic peripheral angiopathy with gangrene (principal); E11.621 Type 2 diabetes mellitus with foot ulcer; L97.521 Non-pressure chronic ulcer of other part of left foot limited to breakdown of skin
CPT/HCPCS: 36415; 73630; 80048; 83036; 85025; 86140; 97597; 99213

== ENCOUNTER → 2025-04-30 10:56 | Outpatient (BNVA) | payer MEDICARE, SELFPAY | PROVIDERS: PCP Family Medicine; Visit Provider Thoracic Surgery (Cardiothoracic Vascular Surgery) | DX: E11.52 Type 2 diabetes mellitus with diabetic peripheral angiopathy with gangrene (principal); E11.621 Type 2 diabetes mellitus with foot ulcer; L97.521 Non-pressure chronic ulcer of other part of left foot limited to breakdown of skin | CPT/HCPCS: 97597 ==

== ENCOUNTER 2025-05-04 08:23 | Outpatient (CLI) | payer MEDICARE, SELFPAY ==
--- NOTE | 2025-05-04 08:45 | NM_ITS ---
WS: [id number] THREE-PHASE BONE SCAN HISTORY: E11.621 - Type 2 diabetes mellitus with foot ulcer, soft tissue ulcer associated with the LEFT fifth toe. COMPARISON: Radiograph 04/23/2025 Patient is is injected with 25.3 mCi Tc99m HDP intravenously. Immediate angiographic phase imaging is performed over the area of concern. Static blood pool imaging also performed. Two-hour whole-body scintigrams performed in anterior and posterior projections. Additional large field of view imaging sub mitted as necessary. Nearly symmetric angiographic phase imaging centered over the feet. Blood pool imaging is also symmetric. On the delayed imaging there is a focal area of increased uptake involving the LEFT fifth metatarsal head. This corresponds to the radiographs in which there was a lucency. Increased uptake involving the knees and ankles from arthropathy. Abnormal uptake involving the proximal third of the LEFT femur. History of prior LEFT leg fractures. No prior radiographs for comparison. No rib abnormalities. No spine abnormalities. NM/NM bone 3 phase [id number] IMPRESSION: 1. Intermediate uptake involving the fifth metatarsal head. This corresponds t o the radiograph findings. There is no increased uptake on the angiographic or blood pool phase imaging. This may represent very subtle early osteomyelitis o r healing fracture. 2. Degenerative changes of the knees and ankles. 3. Increased uptake in the proximal third of the LEFT femur is probably associ ated with prior trauma and fracture healing. No radiographs available for corre lation.
== END 2025-05-04 08:24 | disposition home or self-care (01) ==
PROVIDERS: PCP Family Medicine; Visit Provider Thoracic Surgery (Cardiothoracic Vascular Surgery)
DX: E11.621 Type 2 diabetes mellitus with foot ulcer (principal); L97.528 Non-pressure chronic ulcer of other part of left foot with other specified severity
CPT/HCPCS: 78315; A9561

== ENCOUNTER 2025-05-05 10:38 | Outpatient (CLI) | payer MEDICARE, SELFPAY ==
--- NOTE | 2025-05-05 11:00 | USR_ITS ---
PROCEDURE INFORMATION: Exam: US Duplex Left Lower Extremity Arteries Or Arterial Bypass Grafts Exam date and time: 05/05/2025 10:56 AM Age: 70 years old Clinical indication: Injury or trauma; Other: Diabetes; Wound, open; Left; Ankle and foot level; Vessel not specified; Additional info: E11.621 - type 2 diabetes mellitus with foot ulcer TECHNIQUE: Imaging protocol: Left Real-time duplex scan of the arteries or arterial bypass grafts of the left lower extremity with 2-D betts scale, color Doppler flow and spectral waveform analysis. Images documented and saved. COMPARISON: CT angio abd aorta runof [id number] 08/26/2019 2:52 PM FINDINGS: Left common femoral artery: No occlusion or significant stenosis. Normal waveform. Left superficial femoral artery: No occlusion or significant stenosis. Normal waveform. Left popliteal artery: No occlusion or significant stenosis. Normal waveform. Left calf/foot arteries: No occlusion or significant stenosis in the visualized arteries. Normal waveforms. Dorsalis pedis artery is monophasic. 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 Other findings: No elevated flow velocity to suggest stenosis. No occlusion is identified. ABIs could not be obtained. US/CV arterial duplex [facility] [id number] IMPRESSION: No stenosis or occlusion.
== END 2025-05-05 10:39 | disposition home or self-care (01) ==
PROVIDERS: PCP Family Medicine; Visit Provider Thoracic Surgery (Cardiothoracic Vascular Surgery)
DX: E11.621 Type 2 diabetes mellitus with foot ulcer (principal); L97.529 Non-pressure chronic ulcer of other part of left foot with unspecified severity; L97.509 Non-pressure chronic ulcer of other part of unspecified foot with unspecified severity
CPT/HCPCS: 93926

== ENCOUNTER → 2025-05-07 10:36 | Outpatient (BNVA) | payer MEDICARE, SELFPAY | PROVIDERS: PCP Family Medicine; Visit Provider Thoracic Surgery (Cardiothoracic Vascular Surgery) | DX: E11.52 Type 2 diabetes mellitus with diabetic peripheral angiopathy with gangrene (principal); E11.621 Type 2 diabetes mellitus with foot ulcer; L97.521 Non-pressure chronic ulcer of other part of left foot limited to breakdown of skin | CPT/HCPCS: 99212; A6212 ==

== ENCOUNTER → 2025-05-14 10:30 | Outpatient (BNVA) | payer MEDICARE, SELFPAY | PROVIDERS: PCP Family Medicine; Visit Provider Thoracic Surgery (Cardiothoracic Vascular Surgery) | DX: Z09 Encounter for follow-up examination after completed treatment for conditions other than malignant neoplasm (principal); Z87.2 Personal history of diseases of the skin and subcutaneous tissue | CPT/HCPCS: 99212 ==

== ENCOUNTER → 2025-05-19 08:29 | Outpatient (BNVA) | payer MEDICARE, SELFPAY | PROVIDERS: PCP Family Medicine; Visit Provider Thoracic Surgery (Cardiothoracic Vascular Surgery) | DX: E11.52 Type 2 diabetes mellitus with diabetic peripheral angiopathy with gangrene (principal); E11.621 Type 2 diabetes mellitus with foot ulcer; L97.521 Non-pressure chronic ulcer of other part of left foot limited to breakdown of skin | CPT/HCPCS: 97597; A6021 ==

== ENCOUNTER → 2025-05-25 13:50 | Outpatient (BNVA) | payer MEDICARE, SELFPAY | PROVIDERS: PCP Family Medicine; Visit Provider Thoracic Surgery (Cardiothoracic Vascular Surgery) | DX: E11.52 Type 2 diabetes mellitus with diabetic peripheral angiopathy with gangrene (principal); E11.621 Type 2 diabetes mellitus with foot ulcer; L97.521 Non-pressure chronic ulcer of other part of left foot limited to breakdown of skin | CPT/HCPCS: 97597 ==

== ENCOUNTER → 2025-06-01 13:28 | Outpatient (BNVA) | payer MEDICARE, SELFPAY | PROVIDERS: PCP Family Medicine; Visit Provider Thoracic Surgery (Cardiothoracic Vascular Surgery) | DX: E11.52 Type 2 diabetes mellitus with diabetic peripheral angiopathy with gangrene (principal); E11.621 Type 2 diabetes mellitus with foot ulcer; L97.522 Non-pressure chronic ulcer of other part of left foot with fat layer exposed | CPT/HCPCS: 11042; 87070; 87176; 87205; A6210 ==

== ENCOUNTER → 2025-06-04 13:46 | Outpatient (BNVA) | payer MEDICARE, SELFPAY | PROVIDERS: PCP Family Medicine; Visit Provider Nurse Practitioner Family | DX: L97.529 Non-pressure chronic ulcer of other part of left foot with unspecified severity (principal); L81.4 Other melanin hyperpigmentation; D18.01 Hemangioma of skin and subcutaneous tissue; D69.2 Other nonthrombocytopenic purpura; Z08 Encounter for follow-up examination after completed treatment for malignant neoplasm; Z85.828 Personal history of other malignant neoplasm of skin; D48.5 Neoplasm of uncertain behavior of skin | CPT/HCPCS: 11102; 99213 ==

== ENCOUNTER → 2025-06-08 14:56 | Outpatient (BNVA) | payer MEDICARE, SELFPAY | PROVIDERS: PCP Family Medicine; Visit Provider Thoracic Surgery (Cardiothoracic Vascular Surgery) | DX: E11.52 Type 2 diabetes mellitus with diabetic peripheral angiopathy with gangrene (principal); E11.621 Type 2 diabetes mellitus with foot ulcer; L97.522 Non-pressure chronic ulcer of other part of left foot with fat layer exposed | CPT/HCPCS: 11042; A6210 ==

== ENCOUNTER → 2025-06-15 09:11 | Outpatient (BNVA) | payer MEDICARE, SELFPAY | PROVIDERS: PCP Family Medicine; Visit Provider Thoracic Surgery (Cardiothoracic Vascular Surgery) | DX: E11.52 Type 2 diabetes mellitus with diabetic peripheral angiopathy with gangrene (principal); E11.621 Type 2 diabetes mellitus with foot ulcer; L97.521 Non-pressure chronic ulcer of other part of left foot limited to breakdown of skin | CPT/HCPCS: 97597; A6210 ==

== ENCOUNTER → 2025-06-22 09:00 | Outpatient (BNVA) | payer MEDICARE, SELFPAY | PROVIDERS: PCP Family Medicine; Visit Provider Thoracic Surgery (Cardiothoracic Vascular Surgery) | DX: E11.52 Type 2 diabetes mellitus with diabetic peripheral angiopathy with gangrene (principal); E11.621 Type 2 diabetes mellitus with foot ulcer; L97.521 Non-pressure chronic ulcer of other part of left foot limited to breakdown of skin | CPT/HCPCS: 87070; 87176; 87205; 97597 ==

== ENCOUNTER → 2025-06-29 09:37 | Outpatient (BNVA) | payer MEDICARE, SELFPAY | PROVIDERS: PCP Family Medicine; Visit Provider Thoracic Surgery (Cardiothoracic Vascular Surgery) | DX: E11.52 Type 2 diabetes mellitus with diabetic peripheral angiopathy with gangrene (principal); E11.621 Type 2 diabetes mellitus with foot ulcer; L97.521 Non-pressure chronic ulcer of other part of left foot limited to breakdown of skin | CPT/HCPCS: 87070; 87176; 87205; 97597; A6210 ==

== ENCOUNTER → 2025-07-01 07:53 | Outpatient (BNVA) | payer MEDICARE, SELFPAY | PROVIDERS: PCP Family Medicine; Visit Provider Dermatology | DX: L97.529 Non-pressure chronic ulcer of other part of left foot with unspecified severity (principal); D69.2 Other nonthrombocytopenic purpura; Z08 Encounter for follow-up examination after completed treatment for malignant neoplasm; Z85.828 Personal history of other malignant neoplasm of skin; C44.629 Squamous cell carcinoma of skin of left upper limb, including shoulder; D48.5 Neoplasm of uncertain behavior of skin | CPT/HCPCS: 11102; 11602; 13121; 99213 ==

== ENCOUNTER → 2025-07-06 09:37 | Outpatient (BNVA) | payer MEDICARE, SELFPAY | PROVIDERS: PCP Family Medicine; Visit Provider Thoracic Surgery (Cardiothoracic Vascular Surgery) | DX: E11.52 Type 2 diabetes mellitus with diabetic peripheral angiopathy with gangrene (principal); E11.621 Type 2 diabetes mellitus with foot ulcer; L97.521 Non-pressure chronic ulcer of other part of left foot limited to breakdown of skin | CPT/HCPCS: 97597; A6210 ==

== ENCOUNTER 2025-07-18 10:14 | Emergency (ER) | payer MEDICARE, SELFPAY ==
[2025-07-18] VITALS (9 sets, daily range): BP systolic 100–146; BP diastolic 43–72; PULSE 78–94; RESP 14–23; TEMP 36.4–36.9; O2SAT 92–95; BMI 27.4
--- OUTSIDE RECORDS SUMMARY | 2025-07-18 10:19 | XMS_ITS | Clinical Summary ---
Author Organization [facility] Address [address] Attn: Epic Prelude ADT SHYLA COLLAZOMELISA [address] Care Team Providers Care Motor Electrician Name Role Phone Unavailable Primary Care Provider Unavailabl e Encounters Date Type Department Care Team Description 07/07/2025 External Device Data [facility] ABSTRACTION Provider, Abstract 05/06/2025 External Device Data [facility] ABSTRACTION Provider, Abstract 05/05/2025 External Device Data [facility] ABSTRACTION Provider, Abstract 05/05/2025 External Device Data [facility] ABSTRACTION Provider, Abstract 04/29/2025 Telephone [facility] [place] [address] [place] [address] Provider, Abstract Medical Records (Requested A1C lab results from external provider for continuity of care/insurance quality measures- need results uploaded and resulted in chart.) from Last 3 Months Social History Tobacco Use Types Packs/Day Years Used Date Smoking Tobacco: Never Assessed Sex and Gender Information Value Date Recorded Sex Assigned at Not on file Legal Sex Male 12:53 PM CDT Gender Identity Not on file Sexual Orientation Not on file Plan of Treatment Health Maintenance Due Date Last Done Comments DIABETES ANNUAL FOOT EXAM 1972 DIABETES ANNUAL RETINAL EXAM 1972 DIABETES MICROALBUMIN ANNUAL SCREEN 1972 LDL CHOLESTEROL ANNUAL 1972 DTAP/TDAP/TD VACCINES (1 - Tdap) 1973 PNEUMOCOCCAL VACCINE 50+ YEARS (1 of 2 - PCV) 04/19/19 73 COLORECTAL SCREENING 1999 Colorectal Cancer Screening 1999 FIT-DNA Q 3 years 1999 FIT/FOBT Q 1 year 1999 Flex Sig/CT Colonography Q 5 years 1999 ZOSTER VACCINE (1 of 2) 2004 RSV VACCINE (60+ or ) (1 - Risk 60-74 years 1-dose series) 2014 DIABETES HBA1C Q 6 MONTHS 06/05/2024 12/06/2023 INFLUENZA VACCINE (#1) 2025
--- OUTSIDE RECORDS SUMMARY | 2025-07-18 10:19 | XMS_ITS | Encounter Summary ---
Author Organization [facility], [facility] Address [address] [place] [address] Phone Care Team Providers Care Disaster Or Damage Control Specialist Name Role Phone Unavailable Primary Care Provider Unavailabl e Encounter Details Date Type Department Care Team ([facility] st Contact Info) Description 12/17/2023 Orders Only [facility] [address] [address] [place] [address] Stage 3 chronic kidney disease, not otherwise specified (HCC); Proteinuria, not otherwise specified Social History Tobacco Use Types Packs/Day Years Used Date Smoking Tobacco: Never Assessed Sex and Gender Information Value Date Recorded Sex Assigned at Not on file Legal Sex Male 11:36 AM EST Gender Identity Not on file Sexual Orientation Not on file documented as of this encounter Plan of Treatment Not on file documented as of this encounter Visit Diagnoses Diagnosis Stage 3 chronic kidney disease, not otherwise specified (HCC) Proteinuria, not otherwise specified documented in this encounter
--- OUTSIDE RECORDS SUMMARY | 2025-07-18 10:19 | XMS_ITS | Clinical Summary ---
Author Organization [facility] Address [address] [facility] [address] [place] [address] Phone Care Team Providers Care Section Supervisor Name Role Phone Unavailable Primary Care Provider Unavailabl e Social History Tobacco Use Types Packs/Day Years Used Date Smoking Tobacco: Never Assessed Sex and Gender Information Value Date Recorded Sex Assigned at Not on file Legal Sex Male 11:36 AM EST Gender Identity Not on file Sexual Orientation Not on file Plan of Treatment Health Maintenance Due Date Last Done Comments Colorectal Cancer Screening: Annual FOBT 2003 Colorectal Cancer Screening: Colonoscopy 2003 Colorectal Cancer Screening: Sigmoidoscopy 2003 Pneumococcal Vaccine: 50+ Ye ars (1 of 1 - PCV) 2004 Influenza Vaccine (#1) 2025 Hepatitis B Vaccine Aged Out No longe r eligible based on patient's age to complete this topic [id number]
--- NOTE | 2025-07-18 10:20 | XRR_ITS ---
PROCEDURE INFORMATION: Exam: XR Chest Exam date and time: 07/18/2025 10:25 AM Age: 70 years old Clinical indication: Pain; Chest pressure; Prior surgery; Surgery date: 6+ months; Surgery type: Avr; Additional info: Cp TECHNIQUE: Imaging protocol: Radiologic exam of the chest. Views: 1 view. COMPARISON: CR (CHEST, ) 05/23/2024 8:01 PM FINDINGS: Lungs: Unremarkable. No consolidation. Pleural spaces: Unremarkable. No pleural effusion. No pneumothorax. Heart/Mediastinum: Unremarkable. No cardiomegaly. Bones/joints: Unremarkable. XR/XR chest 1V portable [id number] IMPRESSION: No acute findings.
--- NOTE | 2025-07-18 10:20 | ECG_ITS ---
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 Measurements Intervals [place] Rate: 95 P: 36 MA: 293 QRS: 70 QRSD: 92 T: 83 QT: 359 QTc: 453 Interpretive Statements SINUS RHYTHM WITH FIRST DEGREE AV BLOCK Compared to ECG 05/23/2024 20:08:22 MA INTERVAL HAS INCREASED Electronically Signed On 07-19-2025 22:25:30 CDT by Favian Cook M.D. [id number] [id number]
--- NOTE | 2025-07-18 10:24 | W.ED.CHESTPA ---
HPI - Chest Pain General: Chief Complaint: Chest Pain Stated Complaint: chest pain Time Seen by Provider: 07/18/25 10:19 Source: patient Mode of arrival: ambulatory Limitations: no limitations History of Present Illness: 70-year-old male had a history of a TAVR 2 years ago states that he woke up 2330 having some sharp left-sided chest pain. He states that he did vomit once and his pains improved states pain is now 2 out of 10. No history of known coronary artery disease he denies any shortness of breath he denies any fevers. Associated symptoms: Reports vomiting; Deny abdominal pain, dyspnea or fever(s) Related Data Home Medications ?Medication ?Instructions ?Recorded ?Confirmed bumetanide 1 mg tablet 2 mg PO DAILY 11/27/23 07/18/25 levothyroxine 112 mcg tablet 112 mcg PO DAILY 11/27/23 07/18/25 riociguat 2.5 mg tablet (Adempas) 2.5 mg PO TID 11/27/23 07/18/25 acetaminophen 500 mg tablet 1,000 mg PO Q6H PRN Fever Or Pain 07/18/25 07/18/25 (Tylenol Extra Strength) apixaban 5 mg tablet (Eliquis) 5 mg PO BID 07/18/25 07/18/25 atorvastatin 40 mg tablet 40 mg PO DAILY 07/18/25 07/18/25 ferrous sulfate 325 mg (65 mg 325 mg PO DAILY 07/18/25 07/18/25 iron) tablet (FeroSul) losartan 25 mg tablet 25 mg PO DAILY 07/18/25 07/18/25 metoprolol succinate 25 mg 25 mg PO DAILY 07/18/25 07/18/25 tablet,extended release 24 hr Previous Rx's ?Medication ?Instructions ?Recorded Cam boot to left #1 ea 05/15/23 Diabetic shoes #1 ea 08/25/24 CAM walker #1 ea 04/20/25 Allergies Allergy/AdvReac Type Severity Reaction Status Date / Time No Known Allergies Allergy Verified 04/20/25 11:19 Review of Systems Const: Denies: fever(s), chills, body aches or change in appetite ENMT: Denies: throat pain or dental pain Card: Reports: chest pain Resp: Denies: dyspnea GI: Reports: vomiting; Denies: abdominal pain or diarrhea Musc: Denies: neck pain or back pain Skin/Breast: Denies: rash Neuro: Denies: headache(s) PFSH ED PFSH: Medical History Pericardial effusion Tobacco abuse Anemia Diabetes Warfarin anticoagulation Chest pain History of pulmonary embolism Congestive heart failure History of nonmelanoma skin cancer Hypothalamic hypothyroidism Hypertension History of blood clots COPD (chronic obstructive pulmonary disease) History of pulmonary embolism Surgical History S/P TAVR (transcatheter aortic valve replacement) History of rotator cuff surgery Social History Smoking and tobacco/nicotine status: current every day tobacco/nicotine user Alcohol intake: never Substance/Drug Use: never Physical Exam Const: COMMON NORMALS: no acute distress, patient oriented x3 and healthy appearing HENMT: COMMON NORMALS: normocephalic and atraumatic HEAD & SCALP: normocephalic and atraumatic Eye: COMMON NORMALS: Equal, round and reactive pupils present and EOMs intact bilaterally PUPIL: Yes Equal, round and reactive pupils present Neck/C-Spine: COMMON NORMALS: full ROM and supple Chest: COMMONS NORMALS: normal inspection of the chest and normal palpation of entire chest wall Resp: COMMON NORMALS: normal respiratory effort, No retractions, No use of accessory muscles and clear to auscultation bilaterally AUSCULTATION: clear to auscultation bilaterally Cardio: COMMON NORMALS: regular rate, regular rhythm and No murmurs present (Cardio) RATE: regular rate RHYTHM: regular rhythm GI: COMMON NORMALS: Normal to inspection, nondistended, normoactive bowel sounds present, Soft to palpation, non-tender and no masses PALPATION: Yes Soft to palpation Extremity: COMMON NORMALS: normal to inspection and full ROM Neuro: COMMON NORMALS: patient oriented x3, moves all extremities and no focal motor deficits Psych: COMMON NORMALS: mental status grossly normal, Normal thought process present and cooperative THOUGHT PROCESS: Normal thought process present Skin: COMMON NORMALS: no rashes or lesions noted and no wounds GENERAL SKIN EXAM: no rashes or lesions noted Course Vital Signs: Vital signs: Vital Signs Temperature 98.4 F 07/18/25 10:17 Pulse Rate 83 07/18/25 11:36 Respiratory Rate 16 07/18/25 11:36 Blood Pressure 100/43 07/18/25 11:36 Pulse Oximetry 93 07/18/25 11:36 Oxygen Delivery Me thod Room Air 07/18/25 11:36 MDM - Chest Pain Medical Decision Making Patient presents with chest pain since resolved 2-hour troponin was negative I did offer him admission for chest pain rule out along with mild anemia he stated he would see what the 2-hour was did have shared decision making and he wants to go home he is to follow-up with PCP return if worsening will give him 1 unit of blood he has no signs of acute blood loss he has been trending down for some time. Medical Records I reviewed the patient's medical records. Lab Data I reviewed the patient's lab results. 07/18/25 10:29 07/18/25 10:29 Radiology Impressions Chest X-Ray 07/18/25 10:20 IMPRESSION: No acute findings. Laboratory Results WBC 9.13 10^3/uL (3.29-11.43) 07/18/25 10:29 RBC 2.43 10^6/uL (3.85-5.65) L 07/18/25 10:29 Hgb 7.00 g/dL (11.27-16.99) L 07/18/25 10:29 Hct 23.5 % (37-53) L 07/18/25 10:29 MCV 96.7 fl (82-101) 07/18/25 10:29 MCH 28.8 pg (27-33) 07/18/25 10:29 MCHC 29.8 g/dL (30-55) L 07/18/25 10:29 RDW 14.5 % (12.1-15.1) 07/18/25 10:29 Plt Count 145 10^3/cmm (157-399) L 07/18/25 10:29 MPV 9.0 fL (7.4-10.4) 07/18/25 10:29 Neut % (Auto) 62.2 % 07/18/25 10:29 Lymph % (Auto) 23.4 % 07/18/25 10:29 Howard % (Auto) 9.3 % 07/18/25 10:29 Eos % (Auto) 4.6 % 07/18/25 10:29 Baso % (Auto) 0.2 % 07/18/25 10:29 Neut # (Auto) 5.67 10^3/uL (1.8-7.7) 07/18/25 10: Lymph # (Auto) 2.1 10^3/uL (0.8-4.8) 07/18/25 10:29 Howard # (Auto) 0.9 10^3/uL (0.2-0.9) 07/18/25 10: Eos # (Auto) 0.4 10^3/uL (0.0-0.8) 07/18/25 10: Baso # (Auto) 0.0 10^3/uL (0.0-0.1) 07/18/25 10: Nucleated RBC % (auto) 0 % 07/18/25 10: Nucleated RBCs # 0.0 /100WBC 07/18/25 10: PT 16.30 SECONDS (12.1-14.9) H 07/18/25 10:29 INR 1.22 (0.8-1.2) H 07/18/25 10:29 Sodium 138 mmol/L (136-145) 07/18/25 10:29 Potassium 4.6 mmol/L (3.5-5.1) 07/18/25 10: Chloride 109 mmol/L (98-107) H 07/18/25 10:29 Carbon Dioxide 16 mmol/L (22-29) L 07/18/25 10:29 Anion Gap 17.6 (5-19) 07/18/25 10:29 BUN 50 mg/dL (8-23) H 07/18/25 10:29 Creatinine 3.1 mg/dL (0.7-1.2) H 07/18/25 10:29 GFR Calculation Not Reportable 07/18/25 10:29 Glucose 142 mg/dL (65-115) H 07/18/25 10:29 Calculated Osmolality 302 mOsm/kg (285-295) H 07/18/25 10:29 Calcium 8.4 mg/dL (8.5-10.5) L 07/18/25 10:29 Total Bilirubin 0.3 mg/dL (0.15-1.2) 07/18/25 10:29 AST 18 U/L (0-40) 07/18/25 10:29 ALT 11 U/L (0-41) 07/18/25 10:29 Alkaline Phosphatase 161 U/L (40-130) H 07/18/25 10:29 Troponin T Baseline 81 ng/L (0-15) H 07/18/25 10:29 Troponin T 120 Minute 78.38 ng/L (0-15) H 07/18/25 12:05 Delta Troponin T -2.62 ABS# (0-10) L 07/18/25 12:05 Total Protein 6.2 g/dL (6.6-8.7) L 07/18/25 10:29 Albumin 3.4 g/dL (3.5-5.2) L 07/18/25 10:29 Globulin 2.8 g/dL (1.3-4.6) 07/18/25 10:29 Lipase 34 U/L (13-60) 07/18/25 10:29 Blood Type O Positive 07/18/25 12:05 Rho(D) Type Rh positive 07/18/25 12:05 Antibody Screen Negative 07/18/25 12:05 Crossmatch See Detail 07/18/25 12:05 All radiology interpretation(s) finalized by discharge EKG Data EKG 1: I personally reviewed and interpreted this EKG as follows: EKG interpretation date: 07/18/25 EKG interpretation time: 10:16 Interpretation: nsr hr [address] elevation qrs 92 qtc 412 EKG 2: I personally reviewed and interpreted this EKG as follows: EKG interpretation date: 07/18/25 EKG interpretation time: 12:20 Interpretation: nsr hr [address] elevation qrs 94 qtc 421 Discharge Plan Discharge Patient Disposition: Home Clinical Impression: Chest pain, Anemia Condition: Stable Prescriptions: No Action (DME) Diabetic shoes See Rx Instructions .ROUTE .MEDSUPPLY Qty: 1 0RF Rx Instructions: With 3 pairs of inserts (DME) Cam boot to left See Rx Instructions .Route .MEDSUPPLY Qty: 1 0RF Rx Instructions: As directed (DME) CAM walker See Rx Instructions .Route .MEDSUPPLY Qty: 1 0RF Rx Instructions: As directed levothyroxine 112 mcg tablet 112 mcg PO DAILY Adempas 2.5 mg Tablet 2.5 mg PO TID bumetanide 1 mg tablet 2 mg PO DAILY atorvastatin 40 mg tablet 40 mg PO DAILY acetaminophen [Tylenol Extra Strength] 500 mg Tablet 1,000 mg PO Q6H PRN (Reason: Fever Or Pain) ferrous sulfate [FeroSul] 325 mg (65 mg iron) tablet 325 mg PO DAILY losartan 25 mg tablet 25 mg PO DAILY metoprolol succinate 25 mg tablet extended release 24 hr 25 mg PO DAILY Eliquis 5 mg tablet 5 mg PO BID Discharge Orders: Discharge ED (Routine); Ordered 07/18/25 Ordered By: Henry Garcia Referrals: Patrick Nick MD [Primary Care Provider, Family Practice] - 4-7 days Discharge Diet: Advance as tolerated Discharge Activity: Resume usual activity Patient Instructions: Chest Pain (ED), Anemia (ED) Print Language: Telugu Coding Level of Care Code ED Supervisor Poultry Processing for José Cade
[2025-07-18 10:36] LABS: Hematocrit 23.5 % (37-53); Hemoglobin 7.00 g/dL (11.27-16.99); Mean Corpuscular HGB Conc 29.8 g/dL (30-55); Mean Corpuscular Hemoglobin 28.8 pg (27-33); Mean Corpuscular Volume 96.7 fl (82-101); Nucleated Red Blood Cells % 0 %; Platelet Count 145 10^3/cmm (157-399); Red Blood Count 2.43 10^6/uL (3.85-5.65); White Blood Count 9.13 10^3/uL (3.29-11.43)
[2025-07-18 10:48] LABS: INR 1.22 (0.8-1.2); Prothrombin Time 16.30 SECONDS (12.1-14.9)
[2025-07-18 10:53] LABS: Troponin(5th) Baseline 81 ng/L (0-15)
[2025-07-18 10:58] LABS: Alanine Aminotransferase 11 U/L (0-41); Albumin Level 3.4 g/dL (3.5-5.2); Alkaline Phosphatase 161 U/L (40-130); Anion Gap 17.6 (5-19); Aspartate Amino Transferase 18 U/L (0-40); Blood Urea Nitrogen 50 mg/dL (8-23); Calcium 8.4 mg/dL (8.5-10.5); Carbon Dioxide 16 mmol/L (22-29); Chloride 109 mmol/L (98-107); Creatinine Clr Calc Pharmacy 19.9550; Globulin 2.8 g/dL (1.3-4.6); Glucose 142 mg/dL (65-115); Lipase 34 U/L (13-60); Osmolality Calculated 302 mOsm/kg (285-295); Potassium 4.6 mmol/L (3.5-5.1); Sodium 138 mmol/L (136-145); Total Protein 6.2 g/dL (6.6-8.7)
--- NOTE | 2025-07-18 12:11 | PC.NURSE ---
informed consent in chart
--- NOTE | 2025-07-18 12:20 | ECG_ITS ---
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 Measurements Intervals Mcintosh Rate: 78 P: 60 CT: 304 QRS: 76 QRSD: 94 T: 82 QT: 388 QTc: 442 Interpretive Statements SINUS RHYTHM WITH FIRST DEGREE AV BLOCK WITH OCCASIONAL SUPRAVENTRICULAR PREMATURE COMPLEXES Compared to ECG 07/18/2025 10:16:54 NO SIGNIFICANT CHANGE Electronically Signed On 07-20-2025 13:59:11 CDT by Favian Cook M.D. [email or web address]
[2025-07-18 12:33] LABS: Troponin 5 2HR 78.38 ng/L (0-15)
[2025-07-18 12:34] LABS: Troponin 5 2HR Delta -2.62 ABS# (0-10)
--- NOTE | 2025-07-18 12:44 | PC.NURSE ---
discharge delayed d/t pending blood transfusion
== END 2025-07-18 14:48 | disposition home or self-care (01) ==
PROVIDERS: Emergency Provider Emergency Medicine; PCP Family Medicine
DX: R07.9 Chest pain, unspecified (principal); D64.9 Anemia, unspecified; Z79.01 Long term (current) use of anticoagulants; Z72.0 Tobacco use; J44.9 Chronic obstructive pulmonary disease, unspecified; E11.9 Type 2 diabetes mellitus without complications; I11.0 Hypertensive heart disease with heart failure; I50.9 Heart failure, unspecified; Z85.828 Personal history of other malignant neoplasm of skin
CPT/HCPCS: 36415; 71045; 80053; 83690; 84484; 85025; 85610; 86850; 86900; 86920; 93005; 99285; P9016

== ENCOUNTER → 2025-07-28 09:16 | Outpatient (BNVA) | payer MEDICARE, SELFPAY | PROVIDERS: PCP Family Medicine; Visit Provider Thoracic Surgery (Cardiothoracic Vascular Surgery) | DX: E11.52 Type 2 diabetes mellitus with diabetic peripheral angiopathy with gangrene (principal); E11.621 Type 2 diabetes mellitus with foot ulcer; L97.521 Non-pressure chronic ulcer of other part of left foot limited to breakdown of skin | CPT/HCPCS: 97597; A6210 ==

== ENCOUNTER 2025-08-02 11:53 | Emergency (ER) | payer MEDICARE, SELFPAY ==
--- NOTE | 2025-08-02 11:58 | XRR_ITS ---
PROCEDURE INFORMATION: Exam: XR Left Foot Exam date and time: 08/02/2025 2:19 PM Age: 70 years old Clinical indication: Pain; Foot; Left; Additional info: Lt foot pain; Ulcer to lt lat foot (near base of lt 5th metatarsal), separate ulcer to bottom of lt foot; Diabetic; HX pvd/pad TECHNIQUE: Imaging protocol: Radiologic exam of the left foot. Views: 3 or more views. COMPARISON: CR XR foot LT min 3V* [id number] 11/08/2023 9:52 AM FINDINGS: Bones/joints: No osseous erosion or cortical irregularity. No acute fracture or dislocation. Soft tissues: Mild soft tissue swelling in the forefoot. Vasculature: Diffuse vascular calcifications. XR/XR foot LT min 3V* [id number] IMPRESSION: 1. No acute osseous findings. 2. No radiographic evidence of osteomyelitis.
--- OUTSIDE RECORDS SUMMARY | 2025-08-02 11:59 | XMS_ITS | Clinical Summary ---
Author Organization [facility], [facility] Address [address] [facility] [address] [place] [address] Phone Care Team Providers Care Sheep Boner Name Role Phone Unavailable Primary Care Provider [...] patient's age to complete this topic Insurance [id number])
--- OUTSIDE RECORDS SUMMARY | 2025-08-02 11:59 | XMS_ITS | Clinical Summary ---
Author Organization [facility] Address [address] [facility] Attn: Epic Prelude ADT MELISA RIVERA [address] Care Team Providers Care Felting Machine Operator Helper Name Role Phone Unavailable Primary Care Provider Unavailabl e Encounters Date Type Department Care Team Description 07/21/2025 External Device Data [facility] ABSTRACTION Provider, Abstract 07/07/2025 External Device Data [facility] ABSTRACTION Provider, Abstract 05/06/2025 External Device Data [facility] ABSTRACTION Provider, Abstract 05/05/2025 External Device Data [facility] ABSTRACTION Provider, Abstract 05/05/2025 External Device Data [facility] ABSTRACTION Provider, Abstract from Last 3 Months Social History Tobacco [...]
--- OUTSIDE RECORDS SUMMARY | 2025-08-02 11:59 | XMS_ITS | Encounter Summary ---
Author Organization [facility] [employer], [facility] Address [address] [facility] [address] [place] [address] Phone Care Team Providers Care Military Personnel Specialist Name Role Phone Unavailable Primary Care Provider Unavailabl e Encounter Details Date Type Department Care Team ([facility] st Contact Info) Description 12/17/2023 Orders Only [facility] [employer] [address] [facility] [address] [place] [address] Stage 3 chronic kidney disease, [...]
[2025-08-02 12:13] VITALS: BP 123/62; PULSE 87; RESP 16; TEMP 36.5; O2SAT 95; BMI 28.5
[2025-08-02 12:52] LABS: Hematocrit 24.2 % (37-53); Hemoglobin 7.40 g/dL (11.27-16.99); Mean Corpuscular HGB Conc 30.6 g/dL (30-55); Mean Corpuscular Hemoglobin 30.0 pg (27-33); Mean Corpuscular Volume 98.0 fl (82-101); Nucleated Red Blood Cells % 0 %; Platelet Count 156 10^3/cmm (157-399); Red Blood Count 2.47 10^6/uL (3.85-5.65); White Blood Count 11.41 10^3/uL (3.29-11.43)
[2025-08-02 13:17] LABS: Alanine Aminotransferase 12 U/L (0-41); Albumin Level 3.4 g/dL (3.5-5.2); Alkaline Phosphatase 213 U/L (40-130); Anion Gap 18.6 (5-19); Aspartate Amino Transferase 20 U/L (0-40); Blood Urea Nitrogen 70 mg/dL (8-23); Calcium 8.8 mg/dL (8.5-10.5); Carbon Dioxide 17 mmol/L (22-29); Chloride 106 mmol/L (98-107); Creatinine Clr Calc Pharmacy 19.0617; Globulin 3.5 g/dL (1.3-4.6); Glucose 134 mg/dL (65-115); Osmolality Calculated 306 mOsm/kg (285-295); Potassium 4.6 mmol/L (3.5-5.1); Sodium 137 mmol/L (136-145); Total Protein 6.9 g/dL (6.6-8.7)
[2025-08-02 14:26] VITALS: BP 113/62; O2SAT 93
[2025-08-02 14:39] VITALS: BP 118/62; O2SAT 94
--- NOTE | 2025-08-02 14:48 | XRR_ITS ---
PROCEDURE INFORMATION: Exam: XR Right Foot Exam date and time: 08/02/2025 2:58 PM Age: 70 years old Clinical indication: Injury or trauma; Laceration; Toes; Right great and right first toe and right middle toe and right fourth toe and right little toe; Without foreign body; Additional info: Lacerated bottom of every toe TECHNIQUE: Imaging protocol: Radiologic exam of the right foot. Views: 3 or more views. COMPARISON: No relevant prior studies available. FINDINGS: Bones/joints: No acute fracture or dislocation. Tiny posterior calcaneal enthesophyte. [id number] degenerative changes through the midfoot. Soft tissues: No radiopaque foreign body. Vasculature: Diffuse vascular calcifications. XR/XR foot RT min 3V* [id number] IMPRESSION: No acute findings.
[2025-08-02] MEDS: tetanus-dipt-pertussis 0.5 mL SDV IM (15:09)
[2025-08-02] MEDS: HYDROcodone-acetaminophen 7.5-325 mg Tablet 1 TAB PO (15:09)
[2025-08-02] MEDS: ceFAZolin 2,000 mg SDV 2000 MG IVP (15:21)
--- NOTE | 2025-08-02 16:27 | ED_ITS ---
HPI - Wound/Laceration 2 General: Chief Complaint: Wound/Laceration Stated Complaint: left ulcers/blisters bust open on foot Time Seen by Provider: 08/02/25 12:04 Source: patient Mode of arrival: ambulatory Limitations: no limitations History of Present Illness: Patient is a 70-year-old male who presents to the emergency department due to a fall while in the shower that occurred earlier this morning. He arrives with complaints to his bilateral lower extremities however, stating he wants a diabetic ulcer looked at on his left foot, and also has bleeding of unknown origin to the bottom of his right foot that he states is from the fall. States that he turned while in the shower and next thing he knew he fell, reports a history of falling and similar and did not have any concerning preceding symptoms to the fall such as chest pain, dizziness, lightheadedness, palpitations, or shortness of breath. His vitals are stable on arrival, he is diabetic and states that he is supposed to see Dr. Higginbotham for wound care tomorrow. Tetanus not up-to-date. Bleeding to the bottom of the right foot is controlled at this time. Also states that he is set to have iron infusion soon, has history of iron deficiency anemia. No fever, chills, nausea/vomiting, or other symptoms at this time. Onset (ago): hour(s) Extremity Location: Right: foot Place: home Patient tetanus UTD: No Context: accidental and fall Associated symptoms: Denies chills, fever(s), nausea or vomiting Related Data Home Medications ?Medication ?Instructions ?Recorded ?Confirmed bumetanide 1 mg tablet 2 mg PO DAILY 11/27/2308/02 levothyroxine 112 mcg tablet 112 mcg PO DAILY 11/27/23 08/02/25 riociguat 2.5 mg tablet (Adempas) 2.5 mg PO TID 08/02/25 acetaminophen 500 mg tablet 1,000 mg PO Q6H PRN Fever Or Pain 07/18/25 08/02/25 (Tylenol Extra Strength) apixaban 5 mg tablet (Eliquis) 5 mg PO BID 07/18/25 atorvastatin 40 mg tablet 40 mg PO DAILY 07/18/2507/20 ferrous sulfate 325 mg (65 mg 325 mg PO DAILY 07/18/25 08/02/25 iron) tablet (FeroSul) losartan 25 mg tablet 25 mg PO DAILY 07/18/2507/20 metoprolol succinate 25 mg 25 mg PO DAILY 07/18/25 tablet,extended release 24 hr macitentan 10 mg tablet (Opsumit) 10 mg PO DAILY 08/0208/02/25 Previous Rx's ?Medication ?Instructions ?Recorded Cam boot to left #1 ea 05/15/23 Diabetic shoes #1 ea 08/25/24 CAM walker #1 ea 04/20/25 cephalexin 500 mg capsule 500 mg PO Q6H 7 days #28 cap s 08/02/25 Allergies Allergy/AdvReac Type Severity Reaction Status Date / Time No Known Allergies Allergy Verified 08/02/25 12:15 Review of Systems 2 General: Reports: 10 or more systems reviewed and unremarkable except in HPI and below Const: Reports: other (Reports fall); Denies: fever(s), chills or fatigue Eyes: Denies: change in vision ENMT: Denies: throat pain, ear or mastoid pain or nasal discharge Card: Denies: chest pain, palpitations, swelling of feet/ankles or lightheadedness Resp: Denies: dyspnea, productive cough or wheezing GI: Denies: abdominal pain, nausea, vomiting, diarrhea or constipation : Denies: flank pain, difficulty urinating, dysuria or urinary frequency Musc: Denies: neck pain, back pain or joint pain Skin/Breast: Reports: skin pain, skin tenderness, new lesions (Bleeding to right foot) and lesions (Ulcers to left foot); Denies: rash Neuro: Denies: headache(s), numbness in extremities or weakness in extremities PFSH ED 2 PFSH: Medical History Pericardial effusion Tobacco abuse Anemia Diabetes Warfarin anticoagulation Chest pain History of pulmonary embolism Congestive heart failure History of nonmelanoma skin cancer Hypothalamic hypothyroidism Hypertension History of blood clots COPD (chronic obstructive pulmonary disease) History of pulmonary embolism Surgical History S/P TAVR (transcatheter aortic valve replacement) History of rotator cuff surgery Social History Smoking and tobacco/nicotine status: current every day tobacco/nicotine user Alcohol intake: never Substance/Drug Use: never Physical Exam 2 Const: COMMON NORMALS: no acute distress, patient oriented x3 and no limitations GENERAL APPEARANCE: cooperative, comfortable and well developed ORIENTATION/CONSCIOUSNESS: Yes awake, Yes oriented to person, Yes oriented to place and Yes oriented to time HENMT: COMMON NORMALS: normocephalic, atraumatic and hearing grossly normal bilaterally HEAD & SCALP: normocephalic and atraumatic Eye: COMMON NORMALS: Equal, round and reactive pupils present, EOMs intact bilaterally and conjunctivae normal CONJUNCTIVA: Yes conjunctivae normal P UPIL: Yes Equal, round and reactive pupils present Neck/C-Spine: COMMON NORMALS: full ROM, supple and no JVD Resp: COMMON NORMALS: normal respiratory effort, No retractions, No use of accessory muscles and clear to auscultation bilaterally AUSCULTATION: clear to auscultation bilaterally Cardio: COMMON NORMALS: no JVD, regular rate, regular rhythm, No clicks present (Cardio), No murmurs present (Cardio) and No rub (Cardio) RATE: r egular rate RHYTHM: regular rhythm GI: COMMON NORMALS: Normal to inspection, nondistended, normoactive bowel sounds present, Soft to palpation and non-tender AUSCULTATION: Yes normoactive bowel sounds PALPATION: Yes Soft to palpation RECTAL EXAM: Yes deferred Extremity: COMMON NORMALS: full ROM and capillary refill normal NARRATIVE EXTREMITY EXAM: Chronic venous stasis changes bilaterally, 2+ pitting edema bilaterally lower extremities. Neuro: COMMON NORMALS: patient oriented x3, moves all extremities and no focal motor deficits SENSORIUM/ORIENTATION: Yes oriented to person, Yes oriented to place and Yes oriented to time OTHER: Chronic diminished sensations to bilateral feet Skin: NARRATIVE SKIN EXAM: To the left foot, old appearing ulcer to left lateral foot, and early staging ulceration to dorsum of left foot. No cellulitis or signs of abscess. No warmth or red streaking. At the crease of the bottom of the right 2nd, 3rd and 4th digits over the right foot, there is linear laceration that spans from the medial second toe to the lateral fourth toe. Total laceration is approximately 5 to 6 cm in length. Mild active bleeding at this time. Procedures Laceration Laceration 1: Site: lower extremity Side (If applicable): right (Second toe) Size (cm): 2 Description: linear and clean Depth: simple, single layer Local Anesthetic: lidocaine 2% Amount of anesthesia used (mL): 3 Pre-repair: wound explored, irrigated extensively and deep structures intact Skin layer closed with: nylon Size (cm): 5-0 Number of sutures: 6 Technique: simple, interrupted Laceration 2: Site: lower extremity Side (If applicable): right (Third toe) Size (cm): 2 Description: linear and clean Depth: simple, single layer Local Anesthetic: lidocaine 2% Amount of anesthesia used (mL): 2 Pre-repair: wound explored, irrigated extensively and deep structures intact Skin layer closed with: nylon Size (cm): 5-0 Number of sutures: 3 Technique: simple, interrupted Laceration 3: Site: lower extremity Side (If applicable): right Size (cm): 2 Description: linear and clean Depth: simple, single layer Local Anesthetic: lidocaine 2% Amount of anesthesia used (mL): 3 Pre-repair: wound explored, irrigated extensively and deep structures intact Skin layer closed with: nylon Size (cm): 5-0 Number of sutures: 3 Technique: simple, interrupted Course 2 Vital Signs: Vital signs: Vital Signs Temperature 97.7 F 08/02/25 12:13 Pulse Rate 87 08/02/25 12:13 Respiratory Rate 16 08/02/25 12:13 Blood Pressure 118/62 08/02/25 14:39 Pulse Oximetry 94 08/02/25 14:39 Oxygen Delivery Me thod Room Air 08/02/25 14:39 MDM - Wound/Laceration Medical Decision Making This patient presenting after a fall in his shower, causing laceration to bottom of right foot. Wanted some ulcers checked out to his left foot, these are chronic appearing and he is informed to follow-up with wound care and podiatry as there is no intervention in the emergency department necessary at this time. Labs are ordered and no significant change in baseline, he is chronically anemic and is set to have iron infusions soon. Laceration to bottom of the 2nd, 3rd and 4th toe that were repaired here in the emergency department, light closure to allow for any further drainage and due to his diabetic immunocompromised status encouraged to closely follow-up for evaluation of the wound. He is also given Ancef here in the emergency department through an IV, pain control with [place] he will be sent home with Keflex to take 4 times daily for a week. His tetanus was also updated. He has appointment tomorrow with wound care, he is to attend this and he is given strict return precautions. X-ray of both the right and left foot were also negative. Lab Data 08/02/25 12:42 08/02/25 12:42 Radiology Impressions Foot X-Ray 08/02/25 14:48 IMPRESSION: No acute findings. Laboratory Results WBC 11.41 10^3/uL (3.29-11.43) 08/02/25 12:42 RBC 2.47 10^6/uL (3.85-5.65) L 08/02/25 12:42 Hgb 7.40 g/dL (11.27-16.99) L 08/02/25 12:42 Hct 24.2 % (37-53) L 08/02/25 12:42 MCV 98.0 fl (82-101) 08/02/25 12:42 MCH 30.0 pg (27-33) 08/02/25 12:42 MCHC 30.6 g/dL (30-55) 08/02/25 12:42 RDW 14.7 % (12.1-15.1) 08/02/25 12:42 Plt Count 156 10^3/cmm (157-399) L 08/02/25 12:42 MPV 9.8 fL (7.4-10.4) 08/02/25 12:42 Neut % (Auto) 68.9 % 08/02/25 12:42 Lymph % (Auto) 19.0 % 08/02/25 12:42 Harmon % (Auto) 9.1 % 08/02/25 12:42 Eos % (Auto) 2.3 % 08/02/25 12:42 Baso % (Auto) 0.2 % 08/02/25 12:42 Neut # (Auto) 7.86 10^3/uL (1.8-7.7) H 08/02/25 12:42 Lymph # (Auto) 2.2 10^3/uL (0.8-4.8) 08/02/25 12:42 Harmon # (Auto) 1.0 10^3/uL (0.2-0.9) H 08/02/25 12:42 Eos # (Auto) 0.3 10^3/uL (0.0-0.8) 08/02/25 12:42 Baso # (Auto) 0.0 10^3/uL (0.0-0.1) 08/02/25 12:42 Nucleated RBC % (auto) 0 % 08/02/25 12:42 Nucleated RBCs # 0.0 /100WBC 08/02/25 12:42 ESR 22 mm/hr (0-10) H 08/02/25 12:42 Sodium 137 mmol/L (136-145) 08/02/25 12:42 Potassium 4.6 mmol/L (3.5-5.1) 08/02/25 12:42 Chloride 106 mmol/L (98-107) 08/02/25 12:42 Carbon Dioxide 17 mmol/L (22-29) L 08/02/25 12:42 Anion Gap 18.6 (5-19) 08/02/25 12:42 BUN 70 mg/dL (8-23) H 08/02/25 12:42 Creatinine 3.3 mg/dL (0.7-1.2) H 08/02/25 12:42 GFR Calculation Not Reportable 08/02/25 12:42 Glucose 134 mg/dL (65-115) H 08/02/25 12:42 Calculated Osmolality 306 mOsm/kg (285-295) H 08/02/25 12:42 Calcium 8.8 mg/dL (8.5-10.5) 08/02/25 12:42 Total Bilirubin 0.3 mg/dL (0.15-1.2) 08/02/25 12:42 AST 20 U/L (0-40) 08/02/25 12:42 ALT 12 U/L (0-41) 08/02/25 12:42 Alkaline Phosphatase 213 U/L (40-130) H 08/02/25 12:42 C-Reactive Protein 26.6 mg/L (0.0-4.9) H 08/02/25 12:42 Total Protein 6.9 g/dL (6.6-8.7) 08/02/25 12:42 Albumin 3.4 g/dL (3.5-5.2) L 08/02/25 12:42 Globulin 3.5 g/dL (1.3-4.6) 08/02/25 12:42 All radiology interpretation(s) finalized by discharge Discharge Plan Discharge Patient Disposition: Home Clinical Impression: Laceration of toe, Fall Condition: Stable Prescriptions: New cephalexin 500 mg capsule 500 mg PO Q6H 7 Days Qty: 28 0RF No Action (DME) Diabetic shoes See Rx Instructions .ROUTE .MEDSUPPLY Qty: 1 0RF Rx Instructions: With 3 pairs of inserts (DME) Cam boot to left See Rx Instructions .Route .MEDSUPPLY Qty: 1 0RF Rx Instructions: As directed (DME) CAM walker See Rx Instructions .Route .MEDSUPPLY Qty: 1 0RF Rx Instructions: As directed levothyroxine 112 mcg tablet 112 mcg PO DAILY Adempas 2.5 mg Tablet 2.5 mg PO TID bumetanide 1 mg tablet 2 mg PO DAILY atorvastatin 40 mg tablet 40 mg PO DAILY acetaminophen [Tylenol Extra Strength] 500 mg Tablet 1,000 mg PO Q6H PRN (Reason: Fever Or Pain) ferrous sulfate [FeroSul] 325 mg (65 mg iron) tablet 325 mg PO DAILY losartan 25 mg tablet 25 mg PO DAILY metoprolol succinate 25 mg tablet extended release 24 hr 25 mg PO DAILY Eliquis 5 mg tablet 5 mg PO BID Opsumit 10 mg tablet 10 mg PO DAILY Discharge Orders: Discharge ED (Routine); Ordered 08/02/25 Ordered By: Wyatt Dunlap Referrals: Patrick Nick MD [Primary Care Provider, [facility]] Patient Instructions: Patient Portal & El Instructions Activity Restrictions/Additional Instructions: Diabetic Foot Laceration Discharge Discharge Instructions: Diabetic Foot Lacerations with Sutures Diagnosis/Procedure: 70-year-old male with diabetes mellitus, lacerations to the plantar surfaces of right second, third, and fourth digits, repaired with sutures. Received IV cefazolin in the ED, tetanus immunization updated, sterile dressing applied, and prescribed oral cephalexin 500 mg every 6 hours for 7 days. Follow-up with wound care and podiatry scheduled for tomorrow. --- Wound Care: - Keep the sterile dressing clean, dry, and intact until your wound care or podiatry follow-up tomorrow. - After initial follow-up, wounds may be gently cleansed with saline or tap water; occlusive dressings are preferred to maintain a moist environment and reduce contamination risk.[1] https://pubmed.ncbi.nlm.nih.gov/71121964 [2] https://pubmed.ncbi.nlm.nih.gov/45174795 - Inspect the wound daily for signs of infection: increased redness, swelling, warmth, pain, purulent drainage, or foul odor.[3] https://pubmed.ncbi.nlm.nih.gov/84854126 [4] https://pubmed.ncbi.nlm.nih.gov/17389149 - Avoid weight-bearing or pressure on the affected foot as much as possible until cleared by podiatry, to reduce risk of delayed healing and further injury. [5] https://G.ho.st/harjit/article-lookup/doi/10.1093/harjit/ofpf435 [6] https://pubmed.ncbi.nlm.nih.gov/08123122 Suture Care: - Do not remove the sutures yourself. Suture removal timing will be determined by wound care or podiatry, based on healing and infection risk.[1] https://pubmed.ncbi.nlm.nih.gov/93366914 [2] https://pubmed.ncbi.nlm.nih.gov/02409315 - If the dressing becomes wet or soiled, replace it with a sterile dressing as soon as possible. Antibiotic Therapy: - Take cephalexin 500 mg orally every 6 hours for 7 days, as prescribed. - Complete the full course unless otherwise directed by your provider. - Antibiotic therapy for mild to moderate diabetic foot infections is recommended for 1?2 weeks, with extension considered only if infection is extensive or slow to resolve.[5] https://G.ho.st/harjit/article- lookup/doi/10.1093/harjit/hbmz344 [7] https://doi.org/10.1002/dmrr.3687 [6] https://pubmed.ncbi.nlm.nih.gov/93092640 [3] https://pubmed.ncbi.nlm.nih.gov/78811224 [4] https://pubmed.ncbi.nlm.nih.gov/30532774 - Monitor for adverse reactions (rash, diarrhea, GI upset) and report any concerns promptly. Tetanus Prophylaxis: - Tetanus immunization has been updated per CDC recommendations for wound management.[8] https://wwwnc.cdc.gov/travel/yellowbook/2023/infections- diseases/tetanus Diabetes Management: - Maintain optimal glycemic control, as hyperglycemia impairs wound healing and increases infection risk.[5] https://G.ho.st/harjit/article- lookup/doi/10.1093/harjit/pkti780 [9] https://www.ncbi.nlm.nih. gov/pmc/articles/QNQ60904052/ - Monitor blood glucose closely and adjust medications as needed in consultation with your diabetes care team. Follow-Up: - Attend scheduled wound care and podiatry appointments tomorrow for wound assessment, dressing change, and further management. - Early and frequent follow-up is critical for diabetic foot wounds to monitor healing and prevent complications.[5] https://G.ho.st/harjit/article- lookup/doi/10.1093/harjit/hmed418 [6] https://pubmed.ncbi.nlm.nih.gov/72942429 [4] https://pubmed.ncbi.nlm.nih.gov/21565203 When to Seek Immediate Care: - Fever, chills, or systemic symptoms. - Rapidly increasing redness, swelling, or pain. - New or worsening drainage, foul odor, or discoloration. - Signs of poor perfusion (pallor, coolness, numbness). - Inability to bear weight or new functional impairment. Additional Considerations: - Avoid walking barefoot and protect the affected foot from trauma. - Do not apply topical agents unless specifically instructed by wound care or podiatry; most topical antimicrobials have limited benefit in infected wounds.[ 10] https://www.nejm.org/doi/full/10.1056/JOTYww6868675 [6] https://pubmed.ncbi.nlm.nih.gov/27231555 [4] https://pubmed.ncbi.nlm.nih.gov/20132738 - If infection does not improve after 4 weeks of appropriate therapy, further diagnostic evaluation is warranted.[5] https://academic.oup.com/harjit/article- lookup/doi/10.1093/harjit/kdit591 [7] https://doi.org/10.1002/dmrr.3687 [6] https://pubmed.ncbi.nlm.nih.gov/41283320 [4] https://pubmed.ncbi.nlm.nih.gov/57288662 --- References: - Infectious Diseases Society of [place] (IDSA) and International Working Group on the Diabetic Foot (IWGDF) Guidelines [5] https://[employer].Yasmo.Vend/harjit/article-lookup/doi/10.1093/harjit/xjfq674 [7] https://doi.org/10.1002/dmrr.3687 [6] https://pubmed.ncbi.nlm.nih.gov/98954368 [4] https://pubmed.ncbi.nlm.nih.gov/40179567 - [place] Family Physician wound care review [1] https://pubmed.ncbi.nlm.nih.gov/65988505 [3] https://pubmed.ncbi.nlm.nih.gov/07038649 - [facility] Yellow Book: Tetanus prophylaxis [8] https://wwwnc.cdc.gov/travel/yellowbook/2023/infections-diseases/tetanus - The Journal of Emergency Medicine: Laceration management[2] https://pubmed.ncbi.nlm.nih.gov/09956218 References * Common Questions About Wound Care https://pubmed.ncbi.nlm.nih.gov/65601712 . Dagoberto B, Ayan MQ, Paulette C. [place] Family Physician. 2015;91(2):86-92. * Laceration Management https://pubmed.ncbi.nlm.nih.gov/98632538 . Zulay SL. The Journal of Emergency Medicine. 2017;53(3):369-382. doi:10.1016/j.jemermed.2017.05.026. * Diabetes-Related Foot Infections: Diagnosis and Treatment https://pubmed.ncbi.nlm.nih.gov/12908893 . Trell EM, Marion SW, Shannon RS. [place] Family Physician. 2020;104(4):386-394. * Diagnosis and Treatment of Diabetic Foot Infections https://pubmed.ncbi.nlm.nih.gov/42984377 . Chapito BA, Yomi AR, Sudha HG, et al. Plastic and Reconstructive Surgery. 2006;117(7 Suppl):212S-238S. doi:10.1097/01.[facility].0938266960.89601.77. * IWGDF/IDSA Guidelines on the Diagnosis and Treatment of Diabetes-Related Foot Infections (IWGDF/IDSA 2022) https://[employer].Yasmo.Vend/harjit/article- lookup/doi/10.1093/harjit/momt916 . Sensedrick ?, aleyda Delong SA, et al. Clinical Infectious Diseases : An Official Publication of the Infectious Diseases Society of [place]. 2022;:nwyd287. doi:10.1093/harjit/czhu381. * Diabetic Foot Disorders. A Clinical Practice Guideline (2006 Revision) https://pubmed.ncbi.nlm.nih.gov/92886426 . Maria M RG, Son James, Chyna TOVAR, et al. The Journal of Foot and Ankle Surgery : Official Publication of the [place] [employer] Foot and Ankle Surgeons. 2005-Aug;45(5 Suppl):S1-66. doi:10.1016/F8811-2462(09)67840-3. * IWGDF/IDSA Guidelines on the Diagnosis and Treatment of Diabetes-Related Foot Infections (IWGDF/IDSA 2022) https://doi.org/10.1002/dmrr.3687 . Sensedrick ?, aleyda Delong SA, et al. Diabetes/Metabolism Research and Reviews. 2023;40(3):e3687. doi:10.1002/dmrr.3687. * Tetanus https://wwwnc.cdc.gov/travel/yellowbook/2023/infections- diseases/tetanus . Linda Sanchez Rania Tohme. CDC Yellow Book. * Current Status and Principles for the Treatment and Prevention of Diabetic Foot Ulcers in the Cardiovascular Patient Population: A Scientific Statement From the [place] [employer] https://www.ncbi.nlm.nih.gov/pmc/articles/QIG47461059/ . Akosua SPEARS, Santino THOMAS, Chyna DG, et al. Circulation. 2023;149(4):l241-t987. doi:10.1161/CIR.8260646352088273. * Evaluation and Management of Lower-Extremity Ulcers https://www.nejm.org/doi/full/10.1056/YDEVqu8042048 . AJ, Bindu A, Daniel RS. The [place] Journal of Medicine. 2017;377(16):4254-3854. doi:10.1056/FDUKxv5042047. Print Language: Jamaican Coding Level of Care Code ED Egg Breaking Machine Operator for José Cade
[2025-08-02 16:48] VITALS: BP 129/60; PULSE 82; RESP 18; O2SAT 94
== END 2025-08-02 16:49 | disposition home or self-care (01) ==
PROVIDERS: Emergency Medicine; Emergency Provider Physician Assistant; PCP Family Medicine
DX: E11.621 Type 2 diabetes mellitus with foot ulcer (principal); L97.529 Non-pressure chronic ulcer of other part of left foot with unspecified severity; I11.0 Hypertensive heart disease with heart failure; I50.9 Heart failure, unspecified; J44.9 Chronic obstructive pulmonary disease, unspecified; Z85.828 Personal history of other malignant neoplasm of skin; Z72.0 Tobacco use; S91.114A Laceration without foreign body of right lesser toe(s) without damage to nail, initial encounter; Z79.01 Long term (current) use of anticoagulants; W18.2XXA Fall in (into) shower or empty bathtub, initial encounter
CPT/HCPCS: 12002; 36415; 73630; 80053; 85025; 85651; 86140; 90471; 90715; 96374; 99284; J0690; J9999

== ENCOUNTER 2025-08-03 15:44 | Inpatient (IN) | payer MEDICARE, SELFPAY ==
[2025-08-03] VITALS (9 sets, daily range): BP systolic 89–152; BP diastolic 35–83; PULSE 79–90; RESP 16–22; TEMP 36.4–36.8; O2SAT 90–98; BMI 28.5
--- NOTE | 2025-08-03 16:03 | ECG_ITS ---
[facility] Pat Name: Guy Wiseman Department: Room: Gender: Male Companion Caregiver: : 1955 Requested By: Elijah Moses Order Number: [id number] Shaw MD: Patrice Lopez M.D. Measurements Intervals Cub Run Rate: 84 P: 16 AK: 321 QRS: 90 QRSD: 93 T: 65 QT: 370 QTc: 437 Interpretive Statements SINUS RHYTHM WITH FIRST DEGREE AV BLOCK Compared to ECG 07/18/2025 12:20:03 No significant changes Electronically Signed On 08-04-2025 18:10:23 CDT by Patrice Lopez M.D. [email or web address]
--- NOTE | 2025-08-03 16:37 | XRR_ITS ---
PROCEDURE INFORMATION: Exam: XR Chest Exam date and time: 08/03/2025 4:42 PM Age: 70 years old Clinical indication: Fever; Additional info: Possible sepsis TECHNIQUE: Imaging protocol: Radiologic exam of the chest. Views: 1 view. COMPARISON: CR (CHEST, ) 07/18/2025 10:25 AM FINDINGS: Lungs: Small nodular densities are noted peripherally in the right mid and right lower lung zone. Very slight degree of pulmonary interstitial thickening is present peripherally. No focal infiltrate. Pleural spaces: No effusion or pneumothorax. Heart/Mediastinum: Heart size is at the upper limit of normal. Mediastinal size is normal. An aortic valve stent graft is unchanged in position. Bones/joints: No acute osseous abnormality. XR/XR chest 1V portable [id number] IMPRESSION: 1. Small peripheral nodules versus nodular interstitial thickening in the lower lungs. Assessment for pulmonary nodules can include chest CT. 2. No focal consolidation, infiltrate or pleural effusion.
[2025-08-03 16:48] LABS: Hematocrit 21.8 % (37-53); Hemoglobin 6.60 g/dL (11.27-16.99); Mean Corpuscular HGB Conc 30.3 g/dL (30-55); Mean Corpuscular Hemoglobin 29.5 pg (27-33); Mean Corpuscular Volume 97.3 fl (82-101); Nucleated Red Blood Cells % 0 %; Platelet Count 155 10^3/cmm (157-399); Red Blood Count 2.24 10^6/uL (3.85-5.65); White Blood Count 9.96 10^3/uL (3.29-11.43)
[2025-08-03] MEDS: morphine 4 mg/mL SDV 1 mL IVP (16:48)
[2025-08-03 17:00] LABS: INR 1.54 (0.8-1.2); Prothrombin Time 19.50 SECONDS (12.1-14.9)
[2025-08-03 17:01] LABS: Partial Thromboplastin Time 40.2 SECONDS (23.9-36.7)
--- OUTSIDE RECORDS SUMMARY | 2025-08-03 17:04 | XMS_ITS | Clinical Summary ---
Author Organization [employer] Address [address] [facility] Attn: Epic Prelude ADT MELISA RIVERA [id number] Care Team Providers Care Imaging Administrator Name Role Phone Unavailable Primary Care Provider [...]
--- OUTSIDE RECORDS SUMMARY | 2025-08-03 17:04 | XMS_ITS | Clinical Summary ---
Author Organization [facility], [facility] Address [address] [facility] [address] [place] [address] Phone Care Team Providers Care Outside Collector Name Role Phone Unavailable Primary Care Provider [...] patient's age to complete this topic Insurance [facility] ([id number])
--- OUTSIDE RECORDS SUMMARY | 2025-08-03 17:04 | XMS_ITS | Encounter Summary ---
Author Organization [facility], [facility] Address [address] [facility] [address] [place] [address] Phone Care Team Providers Care Supervisor [place] Name Role Phone Unavailable Primary Care Provider Unavailabl e Encounter Details Date Type Department Care Team ([facility] st Contact Info) Description 12/17/2023 Orders Only [facility] [address] [facility] [address] [place] [address] Stage 3 chronic kidney disease, [...]
[2025-08-03 17:06] LABS: Lactic Sepsis W/Reflex 1.2 mmol/L (0.5-2.2)
[2025-08-03 17:07] LABS: Alanine Aminotransferase 7 U/L (0-41); Albumin Level 3.2 g/dL (3.5-5.2); Alkaline Phosphatase 205 U/L (40-130); Anion Gap 20.7 (5-19); Aspartate Amino Transferase 18 U/L (0-40); Blood Urea Nitrogen 71 mg/dL (8-23); Calcium 8.7 mg/dL (8.5-10.5); Carbon Dioxide 18 mmol/L (22-29); Chloride 107 mmol/L (98-107); Creatinine Clr Calc Pharmacy 17.9724; Globulin 3.4 g/dL (1.3-4.6); Glucose 127 mg/dL (65-115); Magnesium 2.0 mg/dL (1.7-2.3); Osmolality Calculated 314 mOsm/kg (285-295); Potassium 4.7 mmol/L (3.5-5.1); Sodium 141 mmol/L (136-145); Total Protein 6.6 g/dL (6.6-8.7)
[2025-08-03 17:14] LABS: Procalcitonin 0.35 ng/mL (0-0.5)
[2025-08-03 17:14] LABS: Blood Gas Operator Identificat GD; Blood Gas Sample Site Not specified; Blood Gas Sample Type Venous; pH VBG 7.34 (7.32-7.42)
[2025-08-03 17:15] LABS: Base Excess VBG -7.0 mmol/L (-3.0-3.0); HCO3 VBG 18.1 mmol/L (24-28); PCO2 VBG 33.6 mmHg (41-51); PO2 VBG 30.9 mmHg (25-40); Venous Blood Gas Hematocrit 21.4 % (42-52)
--- NOTE | 2025-08-03 17:32 | XRR_ITS ---
PROCEDURE INFORMATION: Exam: XR Left Foot Exam date and time: 08/03/2025 5:34 PM Age: 70 years old Clinical indication: Condition or disease; Diabetic ulcer to lateral aspect of left foot near fifth toe; Additional info: L foot nonhealing wound, eval for osteo TECHNIQUE: Imaging protocol: Radiologic exam of the left foot. Views: 3 or more views. COMPARISON: CR (LOW EXM, ) 08/02/2025 2:19 PM FINDINGS: Bones/joints: No acute fracture or dislocation. No focal osseous erosions are identified, although the 5th metatarsal head is obscured by the overlying dense structure. Soft tissues: 2.7 cm curvilinear focus of near calcific density projects over the soft tissues lateral to the 5th metatarsal head. The structure partially obscures the 5th metatarsal head. Soft tissue swelling involves the 5th toe. Moderate soft tissue swelling of the forefoot. Vasculature: Arterial vascular calcifications are present throughout the foot and ankle. XR/XR foot LT min 3V* [id number] IMPRESSION: 1. Dense structure overlying the soft tissues adjacent to the 5th metatarsal head, representing soft tissue calcification or an overlying dense bandage. 2. No plain radiograph evidence for osteomyelitis, although the 5th metatarsal head is obscured. 3. Marked soft tissue swelling of the 5th toe and 5th MTP joint.
--- NOTE | 2025-08-03 17:48 | W.ED.GENADLT ---
HPI - General Adult General: Chief complaint: General Medical Stated complaint: Low bp Time Seen by Provider: 08/03/25 16:16 History of Present Illness: 70-year-old male history of CKD, heart failure, type 2 diabetes, nonhealing left foot ulcer being managed by wound care, presenting to emergency department today with low blood pressure, seen yesterday for weakness leading to a fall with possible syncope, sustained laceration to right foot that was repaired, had a hemoglobin of 7.5, today went to wound care and had debridement and incision and drainage of an abscess to the left foot, subsequently developed significant bleeding from the site and required repeat evaluation by wound care for cauterization of the area, was found to be hypotensive and weak sent to the ER. Patient reports weakness, reports increasing weakness over the last several weeks, reports increasing leg swelling, was previously on Bumex but taken off Related Data Home Medications ?Medication ?Instructions ?Recorded ?Confirmed bumetanide 1 mg tablet 2 mg PO DAILY 11/27/23 08/02/25 levothyroxine 112 mcg tablet 112 mcg PO DAILY 11/27/23 08/02/25 riociguat 2.5 mg tablet (Adempas) 2.5 mg PO TID 11/27/23 08/02/25 acetaminophen 500 mg tablet 1,000 mg PO Q6H PRN Fever Or Pain 07/18/25 08/02/25 (Tylenol Extra Strength) apixaban 5 mg tablet (Eliquis) 5 mg PO BID 07/18/25 08/02/25 atorvastatin 40 mg tablet 40 mg PO DAILY 07/18/25 08/02/25 ferrous sulfate 325 mg (65 mg 325 mg PO DAILY 07/18/25 08/02/25 iron) tablet (FeroSul) losartan 25 mg tablet 25 mg PO DAILY 07/18/25 08/02/25 metoprolol succinate 25 mg 25 mg PO DAILY 07/18/25 08/02/25 tablet,extended release 24 hr macitentan 10 mg tablet (Opsumit) 10 mg PO DAILY 08/02/25 08/02/25 Previous Rx's ?Medication ?Instructions ?Recorded Cam boot to left #1 ea 05/15/23 Diabetic shoes #1 ea 08/25/24 CAM walker #1 ea 04/20/25 cephalexin 500 mg capsule 500 mg PO Q6H 7 days #28 caps 08/02/25 hydrocodone 5 mg-acetaminophen 325 1 tab PO Q8H PRN pain 4 days #12 08/03/25 mg tablet tabs Allergies Allergy/AdvReac Type Severity Reaction Status Date / Time No Known Allergies Allergy Verified 08/02/25 12:15 PFS ED PFSH: Medical History (Updated 08/03/25 @ 18:45 by Cruz Fang MD) Pericardial effusion Tobacco abuse Anemia Diabetes Warfarin anticoagulation Chest pain History of pulmonary embolism Congestive heart failure History of nonmelanoma skin cancer Hypothalamic hypothyroidism Hypertension History of blood clots COPD (chronic obstructive pulmonary disease) History of pulmonary embolism Surgical History S/P TAVR (transcatheter aortic valve replacement) History of rotator cuff surgery Social History Smoking and tobacco/nicotine status: current every day tobacco/nicotine user Alcohol intake: never Substance/Drug Use: never Physical Exam Const: COMMON NORMALS: no acute distress, patient oriented x3 and healthy appearing HENMT: COMMON NORMALS: normocephalic and atraumatic HEAD & SCALP: normocephalic and atraumatic Eye: COMMON NORMALS: Equal, round and reactive pupils present and EOMs intact bilaterally PUPIL: Yes Equal, round and reactive pupils present Neck/C-Spine: COMMON NORMALS: full ROM and supple Chest: COMMONS NORMALS: normal inspection of the chest and normal palpation of entire chest wall Resp: COMMON NORMALS: normal respiratory effort, No retractions, No use of accessory muscles and clear to auscultation bilaterally AUSCULTATION: clear to auscultation bilaterally Cardio: COMMON NORMALS: regular rate, regular rhythm and No murmurs present (Cardio) RATE: regular rate RHYTHM: regular rhythm GI: COMMON NORMALS: Normal to inspection, nondistended, normoactive bowel sounds present, Soft to palpation, non-tender and no masses PALPATION: Yes Soft to palpation Extremity: COMMON NORMALS: full ROM (Bilateral leg swelling left greater than right left lower extremity 2-3+) Neuro: COMMON NORMALS: patient oriented x3, moves all extremities and no focal motor deficits Psych: COMMON NORMALS: mental status grossly normal, Normal thought process present and cooperative THOUGHT PROCESS: Normal thought process present Skin: COMMON NORMALS: no rashes or lesions noted and no wounds NARRATIVE SKIN EXAM: There is left lower extremity forefoot area of recent incision and drainage with surrounding erythema, no crepitus. There is right foot with volar distal forefoot at the base of the toes laceration healing GENERAL SKIN EXAM: no rashes or lesions noted Course ED course: Patient with improved blood pressure after IV fluid bolus, will be given vancomycin for left foot infection that does not appear consistent with necrotizing fasciitis, no leukocytosis, normal lactic acid, suspect mostly driven by worsening symptomatic anemia although component of infection not excluded, will give blood transfusion, admit for monitoring of blood pressure transfusion IV antibiotics and further evaluation Consultations: Consultation #1: Spoke with hospitalist Dr. Fang who will see the patient and admit the patient for further treatment Vital Signs: Vital signs: Vital Signs Temperature 97.5 F L 08/03/25 20:54 Pulse Rate 90 08/03/25 20:54 Respiratory Rate 16 08/03/25 20:54 Blood Pressure 128/83 08/03/25 20:54 Pulse Oximetry 90 08/03/25 20:54 Oxygen Delivery Me thod Nasal Cannula 08/03/25 20:54 Oxygen Flow Rate 2.5 08/03/25 20:54 MDM - General Adult Medical Decision Making 70-year-old male history hypertension diabetes heart failure CKD peripheral neuropathy with nonhealing left foot ulcer recently debrided today followed by significant bleeding requiring cauterization, found to have an abscess that was drained requiring the debridement today on outpatient cephalexin presenting with low blood pressure, there is asymmetric swelling to the left leg, there is no fever, no leukocytosis or lactic acidosis, patient has had an acute drop in his hemoglobin to 6.6 and this was prior to further hemodilution from fluids, order for 2 units of IV blood transfusion, IV antibiotics although I do not suspect the infection in his leg is causing the majority of his systemic symptoms, plan for admission Differential Diagnosis Differential includes septic shock, hypovolemic shock, symptomatic anemia, GT on CKD, hypervolemia, DVT, abscess, cellulitis Lab Data 08/03/25 16:20 08/03/25 16:20 Radiology Impressions Chest X-Ray 08/03/25 16:37 IMPRESSION: 1. Small peripheral nodules versus nodular interstitial thickening in the lower lungs. Assessment for pulmonary nodules can include chest CT. 2. No focal consolidation, infiltrate or pleural effusion. Foot X-Ray 08/03/25 17:32 IMPRESSION: 1. Dense structure overlying the soft tissues adjacent to the 5th metatarsal head, representing soft tissue calcification or an overlying dense bandage. 2. No plain radiograph evidence for osteomyelitis, although the 5th metatarsal head is obscured. 3. Marked soft tissue swelling of the 5th toe and 5th MTP joint. Foot CT 08/03/25 18:49 IMPRESSION: Subcutaneous edema and swelling, nonspecific although compatible with apparent diabetic foot infection. No definitive radiographic evidence of focal fluid collection or osseous erosions. Laboratory Results WBC 9.96 10^3/uL (3.29-11.43) 08/03/25 16:20 RBC 2.24 10^6/uL (3.85-5.65) L 08/03/25 16:20 Hgb 6.60 g/dL (11.27-16.99) L 08/03/25 16:20 Hct 21.8 % (37-53) L 08/03/25 16:20 MCV 97.3 fl (82-101) 08/03/25 16:20 MCH 29.5 pg (27-33) 08/03/25 16:20 MCHC 30.3 g/dL (30-55) 08/03/25 16:20 RDW 15.0 % (12.1-15.1) 08/03/25 16:20 Plt Count 155 10^3/cmm (157-399) L 08/03/25 16:20 MPV 10.3 fL (7.4-10.4) 08/03/25 16:20 Neut % (Auto) 67.3 % 08/03/25 16:20 Lymph % (Auto) 19.5 % 08/03/25 16:20 Harrison % (Auto) 10.7 % 08/03/25 16:20 Eos % (Auto) 1.8 % 08/03/25 16:20 Baso % (Auto) 0.3 % 08/03/25 16:20 Reticulocyte % (Auto) 2.9 % (0.5-2.0) H 08/03/25 16:20 Neut # (Auto) 6.70 10^3/uL (1.8-7.7) 08/03/25 16:20 Lymph # (Auto) 1.9 10^3/uL (0.8-4.8) 08/03/25 16:20 Harrison # (Auto) 1.1 10^3/uL (0.2-0.9) H 08/03/25 16:20 Eos # (Auto) 0.2 10^3/uL (0.0-0.8) 08/03/25 16:20 Baso # (Auto) 0.0 10^3/uL (0.0-0.1) 08/03/25 16:20 Nucleated RBC % (auto) 0 % 08/03/25 16:20 Nucleated RBCs # 0.0 /100WBC 08/03/25 16:20 ESR 26 mm/hr (0-10) H 08/03/25 16:20 PT 19.50 SECONDS (12.1-14.9) H 08/03/25 16:20 INR 1.54 (0.8-1.2) H 08/03/25 16:20 APTT 40.2 SECONDS (23.9-36.7) H 08/03/25 16:20 Specimen Type Venous 08/03/25 17:06 Sample Site Not specified 08/03/25 17:06 Patrice Test N/a 08/03/25 17:06 VBG pH 7.34 (7.32-7.42) 08/03/25 17:06 VBG pCO2 33.6 mmHg (41-51) L 08/03/25 17:06 VBG pO2 30.9 mmHg (25-40) 08/03/25 17:06 VBG HCO3 18.1 mmol/L (24-28) L 08/03/25 17:06 VBG Base Excess -7.0 mmol/L (-3.0-3.0) L 08/03/25 17:06 VBG Hematocrit 21.4 % (42-52) L 08/03/25 17:06 O2 Delivery Device None 08/03/25 17:06 FiO2 21.0 % 08/03/25 17:06 Structural Layout Worker ID Gd 08/03/25 17:06 Sodium 141 mmol/L (136-145) 08/03/25 16:20 Potassium 4.7 mmol/L (3.5-5.1) 08/03/25 16:20 Chloride 107 mmol/L (98-107) 08/03/25 16:20 Carbon Dioxide 18 mmol/L (22-29) L 08/03/25 16:20 Anion Gap 20.7 (5-19) H 08/03/25 16:20 BUN 71 mg/dL (8-23) H 08/03/25 16:20 Creatinine 3.5 mg/dL (0.7-1.2) H 08/03/25 16:20 GFR Calculation Not Reportable 08/03/25 16:20 Glucose 127 mg/dL (65-115) H 08/03/25 16:20 Calculated Osmolality 314 mOsm/kg (285-295) H 08/03/25 16:20 Lactic Acid 1.2 mmol/L (0.5-2.2) 08/03/25 16:20 Calcium 8.7 mg/dL (8.5-10.5) 08/03/25 16:20 Magnesium 2.0 mg/dL (1.7-2.3) 08/03/25 16:20 Total Bilirubin 0.3 mg/dL (0.15-1.2) 08/03/25 16:20 AST 18 U/L (0-40) 08/03/25 16:20 ALT 7 U/L (0-41) 08/03/25 16:20 Alkaline Phosphatase 205 U/L (40-130) H 08/03/25 16:20 NT-Pro-B Natriuret Pep 18660 pg/mL (0-125) H 08/03/25 16:20 Total Protein 6.6 g/dL (6.6-8.7) 08/03/25 16:20 Albumin 3.2 g/dL (3.5-5.2) L 08/03/25 16:20 Globulin 3.4 g/dL (1.3-4.6) 08/03/25 16:20 Procalcitonin 0.35 ng/mL (0-0.5) 08/03/25 16:20 Urine Color Yellow (Yellow) 08/03/25 17:35 Urine Appearance Clear (CLEAR) 08/03/25 17:35 Urine pH 5.5 (5-7) 08/03/25 17:35 Ur Specific [place] 1.015 (1.005-1.030) 08/03/25 17:35 Urine Protein 3+ (Negative) A 08/03/25 17:35 Urine Glucose (UA) 1+ (Normal) H 08/03/25 17:35 Urine Ketones Negative (Negative) 08/03/25 17:35 Urine Blood 1+ (Negative) A 08/03/25 17:35 Urine Nitrate Negative (Negative) 08/03/25 17:35 Urine Bilirubin Negative (Negative) 08/03/25 17:35 Urine Urobilinogen 0.2 mg/dL (Negative) 08/03/25 17:35 Ur Leukocyte Esterase Negative (Negative) 08/03/25 17:35 Urine RBC 3-5 /hpf (0-2) 08/03/25 17:35 Urine WBC 0-5 /hpf (0-5) 08/03/25 17:35 Ur Squamous Epith Cells 0-5 /hpf (0-5) 08/03/25 17:35 Amorphous Sediment Not Reportable 08/03/25 17:35 Urine Bacteria None seen /hpf (NONE) 08/03/25 17:35 Hyaline Casts 5.77 /lpf 08/03/25 17:35 Blood Type O Positive 08/03/25 17:06 Rho(D) Type Rh positive 08/03/25 17:06 Antibody Screen Positive 08/03/25 17:06 Antibody Identification Anti-Jka 08/03/25 17:06 Crossmatch See Detail 08/03/25 17:06 All radiology interpretation(s) finalized by discharge ED provider radiology interpretation(s): Chest x-ray negative for significant pulmonary edema or pleural effusions EKG Data EKG 1: I personally reviewed and interpreted this EKG as follows: EKG interpretation date: 08/03/25 EKG interpretation time: 16:03 Interpretation: Sinus rhythm with first-degree AV block at 84 bpm, no ectopy, normal axis, QTc 410 ms, no STEMI Computer generated interpretation: Chest X-Ray 08/03/25 16:37 IMPRESSION: 1. Small peripheral nodules versus nodular interstitial thickening in the lower lungs. Assessment for pulmonary nodules can include chest CT. 2. No focal consolidation, infiltrate or pleural effusion. Foot X-Ray 08/03/25 17:32 IMPRESSION: 1. Dense structure overlying the soft tissues adjacent to the 5th metatarsal head, representing soft tissue calcification or an overlying dense bandage. 2. No plain radiograph evidence for osteomyelitis, although the 5th metatarsal head is obscured. 3. Marked soft tissue swelling of the 5th toe and 5th MTP joint. Foot CT 08/03/25 18:49 IMPRESSION: Subcutaneous edema and swelling, nonspecific although compatible with apparent diabetic foot infection. No definitive radiographic evidence of focal fluid collection or osseous erosions. Critical Care Time Critical Care Time: Critical Care Time: Yes Total Critical Care Time: 35 Attestation: This case had a high probability of a clinically significant, sudden, or life threatening deterioration of this patient's condition which required my full and direct attention, intervention and personal management. Discharge Plan Discharge Patient Disposition: Admitted As Inpatient Admit Provider: Cruz Fang Clinical Impression: Abscess of left foot, Symptomatic anemia, Acute hypotension, Leg edema, left Condition: Stable Coding Level of Care Code ED Toll Collector for José Cade
[2025-08-03 17:53] LABS: Glucose Urine UA 1+ (Normal); Nitrate Urine Negative (Negative); Specific Gravity, Urine 1.015 (1.005-1.030)
[2025-08-03 17:56] LABS: Add Urine Microscopic? YES
--- NOTE | 2025-08-03 18:39 | PM.HP ---
Providers/Chief Complaint Primary Care Provider: Patrick Nick MD Chief Complaint: Low bp History of Present Illness Guy Wiseman is a 70 year old male past medical history of pulmonary embolism on Eliquis, history of tissue aortic valve replacement, history of pulmonary hypertension on Adempas and Opsumit, history of bilateral diabetic wounds, history of type 2 diabetes, history of diabetic neuropathy who presents to [facility] from wound care due to concern for low blood pressure and anemia. According to patient, he has noted some blood in his stools, he apparently had a positive Cologuard at some point, denies any black or tarry stools he is on Eliquis, denies history of gastric ulcers, he was found to have a hemoglobin of 6.6, does have bilateral lower extremity diabetic ulcers, that been debrided by wound care, he does report weakness, fatigue, mittens, dizziness, chest pain he does also report bilateral extremity edema he is on Bumex therapy, denies any fevers, no chills, no history of alcoholism, no history of gastric varices Review of Systems Card: Denies: chest pain Resp: Reports: dyspnea GI: Denies: abdominal pain Medications/Allergies Home Medications ?Medication ?Instructions ?Recorded ?Confirmed ?Last Taken ?Type Cam boot to left #1 ea 05/15/23 08/02/25 07/13/23 Rx bumetanide 1 mg tablet 2 mg PO DAILY 11/27/23 08/02/25 08/02/25 History levothyroxine 112 mcg tablet 112 mcg PO DAILY 11/27/23 08/02/25 08/02/25 07:00 History riociguat 2.5 mg tablet (Adempas) 2.5 mg PO TID 11/27/23 08/02/25 08/02/25 09:00 History Diabetic shoes #1 ea 08/25/24 08/02/25 Unknown Rx CAM walker #1 ea 04/20/25 08/02/25 Unknown Rx acetaminophen 500 mg tablet 1,000 mg PO Q6H PRN Fever Or Pain 07/18/25 08/02/25 Unknown History (Tylenol Extra Strength) apixaban 5 mg tablet (Eliquis) 5 mg PO BID 07/18/25 08/02/25 08/02/25 History atorvastatin 40 mg tablet 40 mg PO DAILY 07/18/25 08/02/25 08/02/25 History ferrous sulfate 325 mg (65 mg 325 mg PO DAILY 07/18/25 08/02/25 08/02/25 History iron) tablet (FeroSul) losartan 25 mg tablet 25 mg PO DAILY 07/18/25 08/02/25 08/02/25 History metoprolol succinate 25 mg 25 mg PO DAILY 07/18/25 08/02/25 08/02/25 History tablet,extended release 24 hr cephalexin 500 mg capsule 500 mg PO Q6H 7 days #28 caps 08/02/25 Unknown Rx macitentan 10 mg tablet (Opsumit) 10 mg PO DAILY 08/02/25 08/02/25 08/02/25 History hydrocodone 5 mg-acetaminophen 325 1 tab PO Q8H PRN pain 4 days #12 08/03/25 08/03/25 Unknown Rx mg tablet tabs Allergies Allergy/AdvReac Type Severity Reaction Status Date / Time No Known Allergies Allergy Verified 08/02/25 12:15 PFSH Acute PFSH: Medical History Pericardial effusion Tobacco abuse Anemia Diabetes Warfarin anticoagulation Chest pain History of pulmonary embolism Congestive heart failure History of nonmelanoma skin cancer Hypothalamic hypothyroidism Hypertension History of blood clots COPD (chronic obstructive pulmonary disease) History of pulmonary embolism Surgical History S/P TAVR (transcatheter aortic valve replacement) History of rotator cuff surgery Social History Smoking and tobacco/nicotine status: current every day tobacco/nicotine user Alcohol intake: never Substance/Drug Use: never Vitals/I&O/Wt Last Vital Signs Temp 98.1 F 08/03/25 15:57 Pulse 83 08/03/25 18:00 Resp 22 H 08/03/25 18:00 BP 131/54 08/03/25 18:00 Pulse Ox 90 08/03/25 18:00 O2 Del Method Room Air 08/03/25 15:57 Weight last 48 hrs Weight 75.296 kg Physical Exam Const: COMMON NORMALS: no acute distress and patient oriented x3 HENMT: COMMON NORMALS: normocephalic HEAD & SCALP: normocephalic Eye: COMMON NORMALS: Equal, round and reactive pupils present Neck/C-Spine: COMMON NORMALS: no JVD Resp: COMMON NORMALS: normal respiratory effort, No retractions, No use of accessory muscles and clear to auscultation bilaterally AUSCULTATION: crackles and wheezes Cardio: COMMON NORMALS: regular rate, regular rhythm, S1 normal heart sound present and S2 normal heart sound present RATE: regular rate RHYTHM: regular rhythm HEART SOUNDS: S1 normal heart sound present and S2 normal heart sound present GI: COMMON NORMALS: Normal to inspection, nondistended, normoactive bowel sounds present, Soft to palpation and non-tender OTHER: Reducible umbilical hernia Extremity: NARRATIVE EXTREMITY EXAM: Right lower extremity, superficial wound boot between the 2nd and 3rd digit Left extremity, superficial wound left lateral foot DP PT pulses palpable Neuro: COMMON NORMALS: patient oriented x3, CN's II-XII intact bilaterally and moves all extremities Psych: COMMON NORMALS: mental status grossly normal Data 08/03/25 16:20 08/03/25 16:20 Micro: Microbiology 08/03/25 17:09 Blood Culture - Preliminary Blood SPECIMEN COLLECTED 08/03/25 17:06 Blood Culture - Preliminary Blood SPECIMEN COLLECTED A&P Assessment and plan 1. Acute anemia: 2. Diabetic foot infection: 3. Acute exacerbation of CHF (congestive heart failure): 4. Supratherapeutic INR: 5. Type 2 diabetes mellitus with foot ulcer: 6. Abscess of left foot: 7. S/P TAVR (transcatheter aortic valve replacement): 8. Pulmonary hypertension: 9. Peripheral arterial disease: 10. History of pulmonary embolism: 11. Acute hypotension: 12. GI bleed: Plan: Acute anemia - Concern for slow GI bleed - On Eliquis therapy - History of bloody stool, positive Cologuard Plan - Check iron studies, will consider iron infusions - 2 units PRBC has been ordered by ER provider - Discussed risk and benefits of holding Eliquis therapy, shared decision making, patient voiced understanding, all questions answered, agreed to proceed - Protonix - Carafate - Monitor hemoglobin closely - Full code - SCDs for DVT prophylaxis - Spoke to general surgery, plans on EGD colonoscopy Acute hypotension, resolved, hold blood pressure medications Evidence of fluid overload, shortness of breath, has CHF exacerbation, systolic and diastolic Plan - Bumex 1 mg IV every 12 hours - Monitor urine output, monitor creatinine - Cardiac echo Diabetic foot infection, - Left lateral foot - ESR, CRP, Pro-Giancarlo, blood cultures - Vancomycin - Rocephin History of pulmonary hypertension, - Due to initial concerns for hypotension will hold Adempas, and Opsumit for today - Likely resume tomorrow GT in CKD, monitor creatinine, monitor urine output Type 2 diabetes mellitus, low-dose sliding scale Full code SCDs for DVT prophylaxis PDMP PDMP Reviewed: Not Reviewed Attestations Medical Necessity Statement*: Patient requires hospitalization, inpatient, greater than 2 midnights for acute on chronic anemia, concern for GI bleed, hypotension, diabetic foot infection, GT, fluid overload, CHF, Diagnoses Acute anemia D64.9 Diabetic foot infection E11.628; L08.9 Acute exacerbation of CHF (congestive heart failure) I50.9 Supratherapeutic INR R79.1 Type 2 diabetes mellitus with foot ulcer E11.621; L97.509 Abscess of left foot L02.612 S/P TAVR (transcatheter aortic valve replacement) Z95.2 Pulmonary hypertension I27.20 Peripheral arterial disease I73.9 History of pulmonary embolism Z86.711 Acute hypotension I95.9 GI bleed K92.2
--- NOTE | 2025-08-03 18:49 | CTR_ITS ---
PROCEDURE INFORMATION: Exam: CT Left Lower Extremity Without Contrast, Foot Exam date and time: 08/03/2025 7:07 PM Age: 70 years old Clinical indication: Swelling, leg or foot; Additional info: Diabetic ulcer TECHNIQUE: Imaging protocol: CT of the left lower extremity without contrast was performed. Exam focused on the foot. Radiation optimization: All CT scans at this facility use at least one of these dose optimization techniques: automated exposure control; mA and/or kV adjustment per patient size (includes targeted exams where dose is matched to clinical indication); or iterative reconstruction. COMPARISON: CR (LOW EXM, ) 08/03/2025 5:34 PM RADIATION DOSE METRICS: Total DLP (mGy-cm): 137.5 FINDINGS: Tubes, catheters and devices: No large focal collection amenable to percutaneous drainage. Bones/joints: Dense calcific structure underlying the 5th metatarsal head, intimately associated with known diabetic ulcer. Diffuse subcutaneous swelling compatible with possible cellulitis. No definitive well-defined osseous erosions. Soft tissues: See Bones/joints finding. Vasculature: Atheromatous vascular calcifications of pedal vessels. CT/CT foot LT wo con* [id number] IMPRESSION: Dense calcific structure underlying the 5th metatarsal head, intimately associated with known diabetic ulcer. Diffuse subcutaneous swelling compatible with possible cellulitis. No definitive well-defined osseous erosions. No large focal collection amenable to percutaneous drainage.
--- NOTE | 2025-08-03 18:49 | CTR_ITS ---
PROCEDURE INFORMATION: Exam: CT Right Lower Extremity Without Contrast, Foot Exam date and time: 08/03/2025 7:07 PM Age: 70 years old Clinical indication: Swelling, leg or foot; Additional info: Diabetic foot infection TECHNIQUE: Imaging protocol: CT of the right lower extremity without contrast was performed. Exam focused on the foot. Radiation optimization: All CT scans at this facility use at least one of these dose optimization techniques: automated exposure control; mA and/or kV adjustment per patient size (includes targeted exams where dose is matched to clinical indication); or iterative reconstruction. COMPARISON: CR (LOW EXM, ) 08/02/2025 2:58 PM RADIATION DOSE METRICS: Total DLP (mGy-cm): 138.6 FINDINGS: Bones/joints: No definitive radiographic evidence of focal fluid collection or osseous erosions. Soft tissues: Subcutaneous edema and swelling, nonspecific although compatible with apparent diabetic foot infection. Vasculature: Atheromatous vascular calcifications of the pedal vessels. CT/CT foot RT wo con* [id number] IMPRESSION: Subcutaneous edema and swelling, nonspecific although compatible with apparent diabetic foot infection. No definitive radiographic evidence of focal fluid collection or osseous erosions.
[2025-08-03 19:37] LABS: NT Pro B Type Natriuretic Pept 13494 pg/mL (0-125)
--- NOTE | 2025-08-03 21:00 | PHA.VACGOAL ---
Vancomycin Goal - Goal Vancomycin Indication:: SSTI - Therapy Current therapy:: Other Antibiotic Day of therpy:: Day []of [] . Actual body weight (kg): 176 lb - Data Labs: WBC 9.96 10^3/uL (3.29-11.43) 08/03/25 16:20 RBC 2.24 10^6/uL (3.85-5.65) L 08/03/25 16:20 Hgb 6.60 g/dL (11.27-16.99) L 08/03/25 16:20 Hct 21.8 % (37-53) L 08/03/25 16:20 MCV 97.3 fl (82-101) 08/03/25 16:20 MCH 29.5 pg (27-33) 08/03/25 16:20 MCHC 30.3 g/dL (30-55) 08/03/25 16:20 RDW 15.0 % (12.1-15.1) 08/03/25 16:20 Sodium 141 mmol/L (136-145) 08/03/25 16:20 Potassium 4.7 mmol/L (3.5-5.1) 08/03/25 16:20 Chloride 107 mmol/L (98-107) 08/03/25 16:20 Carbon Dioxide 18 mmol/L (22-29) L 08/03/25 16:20 Anion Gap 20.7 (5-19) H 08/03/25 16:20 BUN 71 mg/dL (8-23) H 08/03/25 16:20 Creatinine 3.5 mg/dL (0.7-1.2) H 08/03/25 16:20 GFR Calculation Not Reportable 08/03/25 16:20 Last dialysis session:: N/A Treatment plan:: new consult Regimen:: DUE TO RENAL FUNCTION, PLAN TO PULSE DOSE. GAVE 1000 MG LOADING DOSE. WILL DRAW TROUGH IN 24 HOURS TO DETERMINE NEXT DOSE. WILL CONTINUE TO MONITOR DAILY.
[2025-08-03] MEDS: sucralfate 1 gm/10 mL Oral Liq UDC PO (21:22)
[2025-08-03] MEDS: bumetanide 0.25 mg/mL SDV 4 mL 1 MG IVP (21:24)
[2025-08-03] MEDS: cefTRIAXone 1,000 mg SDV 1000 MG IVP (21:32)
[2025-08-03] MEDS: pantoprazole 40 mg SDV IVP (21:39)
[2025-08-04] VITALS (19 sets, daily range): BP systolic 109–148; BP diastolic 46–67; PULSE 75–87; RESP 16–20; TEMP 36.6–36.9; O2SAT 91–97
[2025-08-04 00:28] LABS: Ferritin 157 ng/mL (30-400); Iron 19 ug/dL (59-158)
[2025-08-04] MEDS: sucralfate 1 gm/10 mL Oral Liq UDC PO ×4 (02:13→21:03)
[2025-08-04] MEDS: HYDROcodone-acetaminophen 5-325 mg Tablet 1 TAB PO ×3 (05:12→21:07)
--- NOTE | 2025-08-04 07:02 | PM.CONSULT ---
Providers/Reason For Consult Consulting Physician/Specialty*: General Surgery Reason for Consult*: Acute anemia possible GI bleed Attending Physician: Cruz Fang MD Primary Care Provider: Patrick Nick MD History of Present Illness History of Present Illness Guy Wiseman is a 70 year old male who presents with acute anemia in the setting of anticoagulation we have also history of positive Cologuard and Hemoccult. Patient states that he has not noticed any blood in his stool no abdominal pain does not have a recent colonoscopy about 6 months ago he got a Cologuard which was positive has never follow-up after that. Has been consistently having trend down of his hemoglobin. Review of Systems General: Reports: 10 or more systems reviewed and unremarkable except in HPI and below Medications/Allergies Home Medications ?Medication ?Instructions ?Recorded ?Confirmed ?Last Taken ?Type Cam boot to left #1 ea 05/15/23 08/02/25 07/13/23 Rx bumetanide 1 mg tablet 2 mg PO DAILY 11/27/23 08/02/25 08/02/25 History levothyroxine 112 mcg tablet 112 mcg PO DAILY 11/27/23 08/02/25 08/02/25 07:00 History riociguat 2.5 mg tablet (Adempas) 2.5 mg PO TID 11/27/23 08/02/25 08/02/25 09:00 History Diabetic shoes #1 ea 08/25/24 08/02/25 Unknown Rx CAM walker #1 ea 04/20/25 08/02/25 Unknown Rx acetaminophen 500 mg tablet 1,000 mg PO Q6H PRN Fever Or Pain 07/18/25 08/02/25 Unknown History (Tylenol Extra Strength) apixaban 5 mg tablet (Eliquis) 5 mg PO BID 07/18/25 08/02/25 08/02/25 History atorvastatin 40 mg tablet 40 mg PO DAILY 07/18/25 08/02/25 08/02/25 History ferrous sulfate 325 mg (65 mg 325 mg PO DAILY 07/18/25 08/02/25 08/02/25 History iron) tablet (FeroSul) losartan 25 mg tablet 25 mg PO DAILY 07/18/25 08/02/25 08/02/25 History metoprolol succinate 25 mg 25 mg PO DAILY 07/18/25 08/02/25 08/02/25 History tablet,extended release 24 hr cephalexin 500 mg capsule 500 mg PO Q6H 7 days #28 caps 08/02/25 Unknown Rx macitentan 10 mg tablet (Opsumit) 10 mg PO DAILY 08/02/25 08/02/25 08/02/25 History hydrocodone 5 mg-acetaminophen 325 1 tab PO Q8H PRN pain 4 days #12 08/03/25 08/03/25 Unknown Rx mg tablet tabs Allergies Allergy/AdvReac Type Severity Reaction Status Date / Time No Known Allergies Allergy Verified 08/02/25 12:15 Current Medications Generic Name Dose Route Start Last Admin Trade Name Freq PRN Reason Stop Dose Admin Hydrocodone Bitart/Acetaminophen 1 tab 08/03/25 20:54 08/04/25 05:12 Hydrocodone-Acetaminophen 5-325 Mg Tablet PO 1 tab Q8H PRN Administration PAIN Bumetanide 1 mg 08/03/25 20:54 08/03/25 21:24 Bumetanide 0.25 Mg/Ml Sdv 4 Ml IVP 1 mg Q12H CHUY Administration Ceftriaxone Sodium 1,000 mg 08/03/25 20:54 08/03/25 21:32 Ceftriaxone 1,000 Mg Sdv IVP 1,000 mg Q24H CHUY Administration Protocol Pantoprazole Sodium 40 mg 08/03/25 20:54 08/03/25 21:39 Pantoprazole 40 Mg Sdv IVP 40 mg Q12H CHUY Administration Sucralfate 1 gm 08/03/25 20:54 08/04/25 02:13 Sucralfate 1 Gm/10 Ml Oral Liq Udc PO 1 gm Q6H CHUY Administration PFSH Acute PFSH: Medical History (Updated 08/03/25 @ 18:45 by Cruz Fang MD) Pericardial effusion Tobacco abuse Anemia Diabetes Warfarin anticoagulation Chest pain History of pulmonary embolism Congestive heart failure History of nonmelanoma skin cancer Hypothalamic hypothyroidism Hypertension History of blood clots COPD (chronic obstructive pulmonary disease) History of pulmonary embolism Surgical History S/P TAVR (transcatheter aortic valve replacement) History of rotator cuff surgery Social History Smoking and tobacco/nicotine status: current every day tobacco/nicotine user Alcohol intake: never Substance/Drug Use: never Vitals/I&O/Wt Last Vital Signs Temp 98.1 F 08/04/25 06:09 Pulse 77 08/04/25 06:09 Resp 16 08/04/25 06:09 BP 109/52 08/04/25 06:09 Pulse Ox 94 08/04/25 06:09 O2 Del Method Nasal Cannula 08/04/25 04:11 O2 Flow Rate 2 08/04/25 04:11 08/03/25 08/04/25 08/04/25 22:59 06:59 14:59 Intake Total 3026 / 3026 590 / 3616 Output Total 795 / 795 Balance 3026 / 3026 -205 / 2821 Weight last 48 hrs Weight 175 lb 1 oz Weight 176 lb Weight 166 lb Physical Exam Narrative: General : Patient is well developed , no acute distress, oriented x3 Head : Normal cephalic, a-traumatic. Nose : Mucous membranes are without erythema. Lungs : Equal chest rise bilaterally, no use of accessory muscles, trachea is midline. CV : Rate and rhythm are normal. Abdomen : Soft, ND, NT, no g/r/m Extremities : No edema. Upper extremities are normal bilaterally. Back : non-tender to palpation, no CVA tenderness. Data 08/03/25 16:20 08/03/25 16:20 Micro: Microbiology 08/03/25 17:09 Blood Culture - Preliminary Blood SPECIMEN COLLECTED 08/03/25 17:06 Blood Culture - Preliminary Blood SPECIMEN COLLECTED A&P Assessment and plan 1. GI bleed: Plan: After a complete history, physical examination and review of all available clinical data. I have offer colonoscopy as indicated by the current guidelines and a diagnostic upper endoscopy. I have discussed all the risks and benefits of the endoscopy. Including, the risk of perforation of the esophagus, stomach, duodenum or colon requiring surgical intervention and ostomy creation, rectal bleeding, incomplete colonoscopy in one of every 20 patients requiring repat endoscopy in 1 year, missed polyps, need for additional procedures. Patient shows understanding and wishes to proceed. Will give the bowel prep today and plan for colonoscopy in the morning tomorrow. Patient shows understanding and agrees. All other management per medical team. PDMP PDMP Reviewed: Not Reviewed Coding Level of Care Code Acute Code for Chg Fwd Diagnoses GI bleed K92.2
--- NOTE | 2025-08-04 08:09 | PC.NURSE ---
Patient AM blood sugar at 8 AM was 112. No insulin given per sliding scale. Glucometer not transferring reading to chart.
[2025-08-04] MEDS: bumetanide 0.25 mg/mL SDV 4 mL 1 MG IVP ×2 (08:29→17:20)
[2025-08-04] MEDS: pantoprazole 40 mg SDV IVP ×2 (08:40→21:04)
[2025-08-04 09:49] LABS: Hematocrit 26.3 % (37-53); Hemoglobin 7.70 g/dL (11.27-16.99); Mean Corpuscular HGB Conc 29.3 g/dL (30-55); Mean Corpuscular Hemoglobin 28.7 pg (27-33); Mean Corpuscular Volume 98.1 fl (82-101); Nucleated Red Blood Cells % 0 %; Platelet Count 125 10^3/cmm (157-399); Red Blood Count 2.68 10^6/uL (3.85-5.65); White Blood Count 8.32 10^3/uL (3.29-11.43)
[2025-08-04 10:03] LABS: Alanine Aminotransferase < 5 U/L (0-41); Albumin Level 2.9 g/dL (3.5-5.2); Alkaline Phosphatase 176 U/L (40-130); Anion Gap 19.3 (5-19); Aspartate Amino Transferase 16 U/L (0-40); Blood Urea Nitrogen 58 mg/dL (8-23); Calcium 8.3 mg/dL (8.5-10.5); Carbon Dioxide 15 mmol/L (22-29); Chloride 108 mmol/L (98-107); Creatinine Clr Calc Pharmacy 20.1498; Globulin 3.2 g/dL (1.3-4.6); Glucose 108 mg/dL (65-115); Osmolality Calculated 303 mOsm/kg (285-295); Potassium 4.3 mmol/L (3.5-5.1); Sodium 138 mmol/L (136-145); Total Protein 6.1 g/dL (6.6-8.7)
--- NOTE | 2025-08-04 10:05 | PC.CHAP ---
Pastoral Care Encounter/Spiritual Assessment Type of Contact [] Declined vc++ developer visit [] Patient/Family/Request visit [] Outpatient visit [] Follow-up visit [] Physician referral [] Code/Alert [] Routine visit [] Staff referral [] Actively dying [] Patient sleeping [] Family support [] [] Out of room [] Palliative care [] [x] Receiving care in room [] Pre-surgical visit [] Trauma [] Long length of stay [] ICU visit [] Other: Relational/Emotional Strength [] Patient feels connected with others/family/visitors/staff [] Distress [] Loneliness/isolation [] Abandonment Spirituality of Patient [] Person of [place] [] Attends Episcopal of their [place] [] Believes in Prayer [] Reads Bible or Pentecostal materials [] There are Spiritual issues to be addressed [employer] Interventions [] Prayer [] Active listening [] Non-anxious presence [] Spiritual/emotional support [] Crisis/trauma care [] Spiritual counseling [] Bereavement support [] Provided bereavement packet [] Provided Bible/devotional materials [] Provided toy/stuffed animal, coloring book to patient or family member [] Provided Communion [] Anointing/[place] [] Salvation [] Completed spiritual assessment [] Other: Impact on Illness or Injury [] Angry [] Fearful [] Anxious [] Often cries [] Exhaustion [] Unable to work [] Unable to attend mosque [] Unable to walk/stand [] Unable to read [] Unable to drive [] Unable to eat/drink [] Unable to sleep [] Unable to be with family [] Patient intubated [] Other: Summary Time spent with patient
[2025-08-04 10:14] LABS: Cholesterol 60 mg/dL (0-200); HDL Cholesterol 24 mg/dL (60-100); Thyroid Stimulating Hormone 5.77 uIU/mL (0.27-4.20); Triglycerides 99 mg/dL (0-150)
[2025-08-04] MEDS: magnesium citrate Btl 296 mL PO ×2 (12:02→21:31)
--- NOTE | 2025-08-04 14:13 | P.PN_ITS ---
Subjective 2 Subjective: Patient was seen this morning, denies any fevers, no chills, no nausea, vomiting, does report shortness of breath he is on 2 L, does have lower extremity pitting edema discussed diuresis today, bowel prep today, he is in agreement discussed the CT scan findings, Vitals/I&O/Wt Last Vital Signs Temp 98.0 F 08/04/25 11:30 Pulse 84 08/04/25 11:30 Resp 18 08/04/25 11:30 BP 133/46 08/04/25 11:30 Pulse Ox 93 08/04/25 11:30 O2 Del Method Nasal Cannula 08/04/25 11:30 O2 Flow Rate 2 08/04/25 04:11 08/03/25 08/04/25 08/04/25 22:59 06:59 14:59 Intake Total 3026 / 3026 590 / 3616 590 / 590 Output Total 795 / 795 625 / 625 Balance 3026 / 3026 -205 / 2821 -35 / -35 Weight last 48 hrs Weight 79.407 kg Weight 79.832 kg Weight 75.296 kg Physical Exam 2 Const: COMMON NORMALS: no acute distress and patient oriented x3 Resp: COMMON NORMALS: normal respiratory effort, No retractions and No use of accessory muscles AUSCULTATION: crackles and wheezes Cardio: COMMON NORMALS: regular rate, regular rhythm, S1 normal heart sound present and S2 normal heart sound present RATE: regular rate RHYTHM: r egular rhythm HEART SOUNDS: S1 normal heart sound present and S2 normal heart sound present GI: COMMON NORMALS: Normal to inspection, nondistended, normoactive bowel sounds present and non-tender Extremity: NARRATIVE EXTREMITY EXAM: 2+ pitting edema Neuro: COMMON NORMALS: patient oriented x3 Psych: COMMON NORMALS: mental status grossly normal OTHER: Left foot, lateral foot erythema, swelling, tenderness Right foot 1st through 2nd digit, swelling, erythema, tenderness Data 08/04/25 09:37 08/04/25 09:37 Micro: Microbiology 08/03/25 17:09 Blood Culture - Preliminary Blood SPECIMEN COLLECTED 08/03/25 17:06 Blood Culture - Preliminary Blood SPECIMEN COLLECTED A&P Assessment and plan 1. Acute anemia: 2. Diabetic foot infection: 3. Acute exacerbation of CHF (congestive heart failure): 4. Supratherapeutic INR: 5. Type 2 diabetes mellitus with foot ulcer: 6. Abscess of left foot: 7. S/P TAVR (transcatheter aortic valve replacement): 8. Pulmonary hypertension: 9. Peripheral arterial disease: 10. History of pulmonary embolism: 11. Acute hypotension: 12. GI bleed: Plan: Acute anemia - Concern for slow GI bleed - On Eliquis therapy - History of bloody stool, positive Cologuard Plan - Has evidence of iron deficiency, will give 1 dose of IV iron today - Status post 2 units PRBC, hemoglobin 7.7 - Discussed risk and benefits of holding Eliquis therapy, shared decision making, patient voiced understanding, all questions answered, agreed to proceed - Protonix - Carafate - Monitor hemoglobin closely - Full code - SCDs for DVT prophylaxis - Spoke to general surgery, plans on EGD colonoscopy tomorrow, start bowel prep today Acute hypotension, resolved, on bolus hold blood pressure medications Evidence of fluid overload, shortness of breath, has CHF exacerbation, systolic and diastolic Plan - Bumex 1 mg IV every 8 hours with metolazone - Monitor urine output, monitor creatinine - Cardiac echo Diabetic foot infection, left foot - CT/CT foot LT wo con* [id number] IMPRESSION: Dense calcific structure underlying the 5th metatarsal head, intimately associated with known diabetic ulcer. Diffuse subcutaneous swelling compatible with possible cellulitis. No definitive well-defined osseous erosions. No large focal collection amenable to percutaneous drainage. - Blood cultures - Vancomycin - Rocephin Diabetic foot infection right foot CT/CT foot RT wo con* [id number] IMPRESSION: Subcutaneous edema and swelling, nonspecific although compatible with apparent diabetic foot infection. No definitive radiographic evidence of focal fluid collection or osseous erosions. Plan IV antibiotics as above History of pulmonary hypertension, - Due to initial concerns for hypotension will hold Adempas, and Opsumit for today - Likely resume today GT in CKD, monitor creatinine, monitor urine output Type 2 diabetes mellitus, low-dose sliding scale Full code SCDs for DVT prophylaxis PDMP PDMP Reviewed: Not Reviewed Attestations 2 Medical Necessity Statement*: Plan for today IV antibiotics, IV diuresis, bowel prep, monitor hemoglobin patient requires hospitalization for diabetic foot infection, acute anemia, acute hypotension, fluid overload Diagnoses Acute anemia D64.9 Diabetic foot infection E11.628; L08.9 Acute exacerbation of CHF (congestive heart failure) I50.9 Supratherapeutic INR R79.1 Type 2 diabetes mellitus with foot ulcer E11.621; L97.509 Abscess of left foot L02.612 S/P TAVR (transcatheter aortic valve replacement) Z95.2 Pulmonary hypertension I27.20 Peripheral arterial disease I73.9 History of pulmonary embolism Z86.711 Acute hypotension I95.9 GI bleed K92.2
[2025-08-04] MEDS: iron sucrose 200 MG in sodium chloride 0.9% (100 ml) 100 ML 220 MG IV (14:40)
[2025-08-04] MEDS: ondansetron 2 mg/ML SDV 2 mL 4 MG IVP (14:40)
[2025-08-04 15:05] LABS: Hematocrit 25.9 % (37-53); Hemoglobin 8.00 g/dL (11.27-16.99)
[2025-08-04] MEDS: MACITENTAN 10 MG 10 EACH PO (16:47)
[2025-08-04] MEDS: RIOCIGUAT 2.5 MG 2.5 EACH PO ×2 (16:47→21:32)
--- NOTE | 2025-08-04 18:39 | USCV_ITS ---
Guy Wiseman Age: 70 Gender: M : 1955 Exam Date: 08/04/2025 09:46 Ordering Phys: Cruz Fang MD Technologist: BI [place] [facility] [place]: chf BP: 123 / 58 HR: 78 Rhythm: Sinus Technical Quality: Adequate MEASUREMENTS (Male / Female) Normal Values 2D ECHO LV Diastolic Diameter PLAX 4.3 cm 4.2 - 5.9 / 3.9 - 5.3 cm IVS Diastolic Thickness 1.0 cm 0.6 - 1.0 / 0.6 - 0.9 cm IVS Systolic Thickness 1.7 cm LVPW Diastolic Thickness 1.7 cm 0.6 - 1.0 / 0.6 - 0.9 cm LVPW Systolic Thickness 1.6 cm LVOT Diameter 1.9 cm LV Ejection Fraction 2D Teich 57.7 % LV Ejection Fraction MOD 4C 62.2 % LV Ejection Fraction MOD 2C 66.1 % LV Ejection Fraction 2C AL 65.1 % LA Diameter 4.2 cm RA Systolic Volume 4C AL 62.5 ml RA Systolic Volume 4C MOD 60.1 ml LA Sys Volume AL 65.8 cm cubed LA Sys Volume Index AL 34.3 cm cubed/m squared Aorta at Sinotubular Diameter 2.8 cm IVC Diameter 1.6 cm M-MODE LA Ao Ratio MM 2.7 AV Cusp Separation MM 1.5 cm DOPPLER AV Peak Velocity 224.3 cm/s LVOT Peak Velocity 102.0 cm/s AV Area Cont Eq vti 1.7 cm squared AV Area Cont Eq pk 1.3 cm squared MV Peak Velocity 182.7 cm/s MV Area PHT 4.7 cm squared Mitral E to A Ratio 2.4 TR Peak Velocity 158.0 cm/s TR Peak Gradient 10.0 mmHg TV Peak E Velocity 92.0 cm/s PV Peak Velocity 107.0 cm/s FINDINGS Left Ventricle Normal left ventricular size and systolic function, EF 66%. No gross wall motion abnormalities.Grade I/IV diastolic dysfunction (abnormal relaxation filling pattern), normal to mildly elevated filling pressures. Right Ventricle Mildly increased right ventricular size. Normal right ventricular systolic function. Right Atrium Moderately increased right atrial size. Left Atrium Moderately increased left atrial size. Mitral Valve Moderate mitral annular calcification. Mild mitral valve regurgitation. Aortic Valve The bioprosthetic valve in the aortic position-TAVR appears to be positioned well. Peak velocity across the valve is 2.24 m/s Tricuspid Valve No gross abnormalities noted Pulmonic Valve Pulmonic valve not well visualized. Pericardium No pericardial effusion. Aorta Normal aortic annulus size. IVC Inferior vena cava not visualized. CONCLUSIONS Normal left ventricular size and systolic function, EF 66%. No gross wall motion abnormalities. Grade I/IV diastolic dysfunction (abnormal relaxation filling pattern), normal to mildly elevated filling pressures. The bioprosthetic valve in the aortic position-TAVR appears to be positioned well. Peak velocity across the valve is 2.24 m/s. Moderate mitral annular calcification. Mild mitral valve regurgitation. Moderate biatrial enlargement. There is no pericardial effusion. There are no intracardiac masses. No similar previous studies are available for comparison Dr Patrice Lopez MD [facility] (Electronically Signed) Final Date: 04 August 2025 17:39 S
--- NOTE | 2025-08-04 18:49 | USCV_ITS ---
Guy Wiseman Age: 70 Gender: M : 1955 Exam Date: 08/04/2025 10:00 Ordering Phys: Cruz Fang MD Technologist: BI [place] [facility] [place]: Swelling HISTORY: Lower extremity swelling. PROCEDURES: Venous duplex imaging was performed in bilateral lower extremities. The following venous structures were evaluated: common femoral vein, profunda vein, proximal portion of the greater saphenous vein, superficial femoral vein, and the popliteal vein. In addition, the posterior tibial and peroneal trunk were evaluated. Serial compression, augmentation maneuvers, and spectral Doppler flow evaluation were performed. FINDINGS: Normal 2-D Doppler and augmentation and compressibility throughout the lower extremity venous structures. Additional imaging through the proximal calf veins also reveals no thrombus. Limited evaluation of the greater saphenous vein is patent with no thrombus. CONCLUSIONS No DVT bilateral lower extremities. Dr. Charlotte George DO (Electronically Signed) Final Date: 04 August 2025 10:59 S
[2025-08-04] MEDS: cefTRIAXone 1,000 mg SDV 1000 MG IVP (21:03)
[2025-08-04 21:54] LABS: Hematocrit 26.4 % (37-53); Hemoglobin 8.10 g/dL (11.27-16.99)
[2025-08-05] VITALS (13 sets, daily range): BP systolic 103–134; BP diastolic 28–64; PULSE 81–98; RESP 16–22; TEMP 36.2–37.1; O2SAT 90–98
[2025-08-05] MEDS: bumetanide 0.25 mg/mL SDV 4 mL 1 MG IVP ×2 (02:48→17:18)
[2025-08-05 05:14] LABS: Hematocrit 26.1 % (37-53); Hemoglobin 8.00 g/dL (11.27-16.99); Mean Corpuscular HGB Conc 30.7 g/dL (30-55); Mean Corpuscular Hemoglobin 29.6 pg (27-33); Mean Corpuscular Volume 96.7 fl (82-101); Nucleated Red Blood Cells % 0 %; Platelet Count 133 10^3/cmm (157-399); Red Blood Count 2.70 10^6/uL (3.85-5.65); White Blood Count 8.54 10^3/uL (3.29-11.43)
[2025-08-05 05:41] LABS: Alanine Aminotransferase < 5 U/L (0-41); Albumin Level 2.8 g/dL (3.5-5.2); Alkaline Phosphatase 195 U/L (40-130); Aspartate Amino Transferase 20 U/L (0-40); Blood Urea Nitrogen 61 mg/dL (8-23); Calcium 8.5 mg/dL (8.5-10.5); Carbon Dioxide 19 mmol/L (22-29); Chloride 107 mmol/L (98-107); Creatinine Clr Calc Pharmacy 19.1352; Globulin 3.4 g/dL (1.3-4.6); Glucose 96 mg/dL (65-115); Osmolality Calculated 303 mOsm/kg (285-295); Sodium 138 mmol/L (136-145); Total Protein 6.2 g/dL (6.6-8.7)
[2025-08-05 06:05] LABS: Anion Gap 16.4 (5-19); Potassium 4.4 mmol/L (3.5-5.1)
--- NOTE | 2025-08-05 06:07 | W.PM.OPSUD ---
Surgery/Procedure H&P Update DATE OF PROCEDURE: August 05, 2025 DATE H&P PERFORMED: 08/04/25 H&P UPDATE INFORMATION: I have reviewed H&P completed within last 30 days, I have examined patient prior to procedure, No changes to prior documentation, H&P is in [facility] EMR on date indicated and Risks and benefits of the procedure reviewed PLANNED PROCEDURE: Operation Date: 08/05/25 07:00 Proposed Procedures p EGD(Not Applicable) - Wyatt Andrade MD s Colonoscopy(Not Applicable) - Wyatt Andrade MD
--- NOTE | 2025-08-05 07:23 | P.ANESASSM_ITS ---
Pre-Anesthetic Assessment Height/Weight: Height 1.63 m Weight 80.921 kg Temp Pulse Resp BP Pulse Ox O2 Del Method O2 Flow Rate 97.8 F 98 18 130/46 91 Nasal Cannula 5 08/05/25 06:33 08/05/25 06:33 08/05/25 06:33 08/05/25 06:33 08/05/25 06:33 08/05/25 06:33 08/05/25 06:33 Preop Diagnosis: GI bleed Operation Date: 08/05/25 07:00 Proposed Procedures p EGD(Not Applicable) - Wyatt Andrade MD s Colonoscopy(Not Applicable) - Wyatt Andrade MD Familial anesthetic complications: none Was Beta Mateo taken within 24 hours: Yes (no) Was Clonidine taken within 24 hours: N/A Last intake: Intake Last Liquid Date 08/04/25 Last Liquid Time 23:59 Last Solid Date 08/04/25 Last Solid Time 23:59 Social Tobacco (5 cigs per day per pt.) and No alcohol Exam alert and oriented x 3 Airway Submandibular: within normal limits Cervical ROM: within normal limits Mallampati: Class III Dentition: false History/ROS No significant history except as noted Pulmonary Chronic Obstructive Pulmonary Disease, Exertional Dyspnea and Shortness of Breath currently on 4lnc CV/HEM Anemia, Congestive Heart Failure and Peripheral Vascular Disease HO PE Chronic Renal Failure Hepatic None reported GI None reported Metabolic Diabetes Mellitus and Hyperlipidemia Musc/[facility] Osteoarthritis/DJD and Weakness Neuropsych None reported Anesthetic Plan ASA status: 4 Anesthesia: Anesthesia Evaluation and MAC Risk of > 500 ml blood loss (7ml/kg in children): No Medications/Allergies Home Medications ?Medication ?Instructions ?Recorded ?Confirmed ?Last Taken ?Type Cam boot to left #1 ea 05/15/23 08/04/25 08/04/10 Rx bumetanide 1 mg tablet 2 mg PO DAILY 11/27/2308/0408/03/25 History levothyroxine 112 mcg tablet 112 mcg PO DAILY 11/27/23 08/04/25 08/03/25 History riociguat 2.5 mg tablet (Adempas) 2.5 mg PO TID 08/04/25 08/03/25 History Diabetic shoes #1 ea 08/25/24 08/04/25 Unkn own Rx CAM walker #1 ea 04/20/25 08/04/25 Unkn own Rx acetaminophen 500 mg tablet 1,000 mg PO Q6H PRN Fever Or Pain 07/18/25 08/04/25 Unknown History (Tylenol Extra Strength) apixaban 5 mg tablet (Eliquis) 5 mg PO BID 07/18/2508/03/25 History atorvastatin 40 mg tablet 40 mg PO DAILY 07/18/2507/2008/03/25 History losartan 25 mg tablet 25 mg PO DAILY 07/18/2507/2008/03/25 History metoprolol succinate 25 mg 25 mg PO DAILY 07/18/2508/03/25 History tablet,extended release 24 hr cephalexin 500 mg capsule 500 mg PO Q6H 7 days #28 cap s 08/02/25 08/04/25 08/03/25 Rx macitentan 10 mg tablet (Opsumit) 10 mg PO DAILY 08/0208/04/25 08/03/25 History hydrocodone 5 mg-acetaminophen 325 1 tab PO Q8H PRN pa in 4 days #12 08/03/25 08/04/25 Unknown Rx mg tablet tabs Allergies Allergy/AdvReac Type Severity Reaction Status Date / Time No Known Allergies Allergy Verified 08/02/25 12:15 Current Medications Generic Name Dose Route Start Last Admin Trade Name Freq PRN Reason Stop Dose Admin Hydrocodone Bitart/Acetaminophen 1 tab 08/03/25 20:54 08/04/25 21:07 Hydrocodone-Acetaminophen 5-325 Mg Tablet PO 1 tab On Hold: 08/05/25 06:25 Q8H PRN Administration Comment: Order held by Process PAIN Transfer Atorvastatin Calcium 40 mg 08/04/25 09:00 08/04/25 08:45 Atorvastatin 40 Mg Tablet PO 40 mg On Hold: 08/05/25 06:25 DAILY CHUY Administration Comment: Order held by Process Transfer Bumetanide 1 mg 08/04/25 18:00 08/05/25 02:48 Bumetanide 0.25 Mg/Ml Sdv 4 Ml IVP 1 mg On Hold: 08/05/25 06:25 Q8H CHUY Administration Comment: Order held by Process Transfer Ceftriaxone Sodium 1,000 mg 08/03/25 20:54 08/04/25 21:03 Ceftriaxone 1,000 Mg Sdv IVP 1,000 mg On Hold: 08/05/25 06:25 Q24H CHUY Administration Comment: Order held by Process Protocol Transfer Sodium Chloride 1,000 mls @ 30 mls/hr 08/05/25 06:45 08/05/25 06:47 Sodium Chloride 0.9% IV 08/06/25 06:44 30 mls/hr .Q24H CHUY Administration Insulin Human Lispro 0 unit 08/04/25 08:00 08/04/25 17:00 Insulin Lispro 100 Unit/1 Ml SUBCUT Not Given On Hold: 08/05/25 06:25 TIDWM CHUY Comment: Order held by Process Protocol Transfer Levothyroxine Sodium 112 mcg 08/04/25 09:00 08/04/25 08:41 Levothyroxine 112 Mcg Tablet PO 112 mcg On Hold: 08/05/25 06:25 DAILY CHUY Administration Comment: Order held by Process Transfer Non-Formulary Medication 10 mg 08/04/25 16:00 08/04/25 16:47 Macitentan [Opsumit] PO 10 mg On Hold: 08/05/25 06:25 DAILY CHUY Administration Comment: Order held by Process Transfer Non-Formulary Medication 2.5 mg 08/04/25 16:00 08/04/25 21:32 Riociguat [Adempas] PO 2.5 mg On Hold: 08/05/25 06:25 TID CHUY Administration Comment: Order held by Process Transfer Ondansetron HCl 4 mg 08/03/25 20:54 08/04/25 14:40 Ondansetron 2 Mg/Ml Sdv 2 Ml IVP 4 mg On Hold: 08/05/25 06:25 Q8H PRN Administration Comment: Order held by Process vomiting, or N/V if npo Transfer Pantoprazole Sodium 40 mg 08/03/25 20:54 08/04/25 21:04 Pantoprazole 40 Mg Sdv IVP 40 mg On Hold: 08/05/25 06:25 Q12H CHUY Administration Comment: Order held by Process Transfer Sucralfate 1 gm 08/03/25 20:54 08/05/25 02:58 Sucralfate 1 Gm/10 Ml Oral Liq Udc PO Not Given On Hold: 08/05/25 06:25 Q6H [facility] Comment: Order held by Process Transfer [facility] Anesthesia Medical History (Updated 08/03/25 @ 18:45 by Cruz Fang MD) Pericardial effusion Tobacco abuse Anemia Diabetes Warfarin anticoagulation Chest pain History of pulmonary embolism Congestive heart failure History of nonmelanoma skin cancer Hypothalamic hypothyroidism Hypertension History of blood clots COPD (chronic obstructive pulmonary disease) History of pulmonary embolism Surgical History S/P TAVR (transcatheter aortic valve replacement) History of rotator cuff surgery Social History Smoking and tobacco/nicotine status: current every day tobacco/nicotine user Alcohol intake: never Substance/Drug Use: never Data Anesthesia 08/05/25 05:03 08/05/25 05:03 Short CBC 08/03/25 08/04/25 08/04/25 Range/Units 16:20 09:37 14:48 WBC 9.96 8.32 (3.29-11.43) 10^3/uL Hgb 6.60 L 7.70 L 8.00 L (11.27-16.99) g/dL Hct 21.8 L 26.3 L 25.9 L (37-53) % MCV 97.3 98.1 (82-101) fl Plt Count 155 L 125 L (157-399) 10^3/cmm Neut % (Auto) 67.3 64.1 % Neut # (Auto) 6.70 5.33 (1.8-7.7) 10^3/uL 08/04/25 08/05/25 Range/Units 21:00 05:03 WBC 8.54 (3.29-11.43) 10^3/uL Hgb 8.10 L 8.00 L (11.27-16.99) g/dL Hct 26.4 L 26.1 L (37-53) % MCV 96.7 (82-101) fl Plt Count 133 L (157-399) 10^3/cmm Neut % (Auto) 64.8 % Neut # (Auto) 5.54 (1.8-7.7) 10^3/uL BMP 08/03/25 08/04/25 08/05/25 16:20 09:37 05:03 Sodium 141 138 138 Potassium 4.7 4.3 4.4 Chloride 107 108 H 107 Carbon Dioxide 18 L 15 L 19 L BUN 71 H 58 H 61 H Creatinine 3.5 H 3.2 H 3.4 H Glucose 127 H 108 96 Calcium 8.7 8.3 L 8.5 Cardiac Enzymes 08/03/25 Range/Units 16:20 NT-Pro-B Natriuret Pep [id number] H (0-125) pg/mL Liver Function 08/03/25 08/04/25 08/05/25 Range/Units 16:20 09:37 05:03 Total Bilirubin 0.3 0.3 0.3 (0.15-1.2) mg/dL AST 18 16 20 (0-40) U/L ALT 7 < 5 < 5 (0-41) U/L Alkaline Phosphatase 205 H 176 H 195 H (40-130) U/L Albumin 3.2 L 2.9 L 2.8 L (3.5-5.2) g/dL Urine 08/03/25 Range/Units 17:35 Urine Color Yellow (Yellow) Urine Appearance Clear (CLEAR) Urine pH 5.5 (5-7) Ur Specific [place] 1.015 (1.005-1.030) Urine Protein 3+ A (Negative) Urine Glucose (UA) 1+ H (Normal) Urine Ketones Negative (Negative) Urine Nitrate Negative (Negative) Urine Bilirubin Negative (Negative) Ur Leukocyte Esterase Negative (Negative) Urine RBC 3-5 (0-2) /hpf Urine WBC 0-5 (0-5) /hpf Blood Bank 08/03/25 17:06 Blood Type O Positive Rho(D) Type Rh positive Antibody Screen Positive Coags 08/03/25 16:20 ESR 26 H PT 19.50 H INR 1.54 H APTT 40.2 H ABG 08/03/25 17:06 Specimen Type Venous Sample Site Not specified O2 Delivery Device None FiO2 21.0 Microbiology 08/04/25 19:34 Occult Blood (FIT) - Final Stool 08/03/25 17:09 Blood Culture - Preliminary Blood NEGATIVE TO DATE 08/03/25 17:06 Blood Culture - Preliminary Blood NEGATIVE TO DATE Cardiac Studies: 2 Echocardiogram 08/04/25
--- NOTE | 2025-08-05 07:31 | PC.NURSE ---
Cecum time 0730
--- NOTE | 2025-08-05 07:50 | P.PN_ITS ---
Subjective 2 Subjective: Hemoglobin has been stable patient is doing okay underwent endoscopy this morning. Vitals/I&O/Wt Last Vital Signs Temp 97.8 F 08/05/25 06:33 Pulse 98 08/05/25 06:33 Resp 18 08/05/25 06:33 BP 130/46 08/05/25 06:33 Pulse Ox 91 08/05/25 06:33 O2 Del Method Nasal Cannula 08/05/25 06:33 O2 Flow Rate 5 08/05/25 06:33 08/04/25 08/05/25 08/05/25 22:59 06:59 14:59 Intake Total 380 / 1450 Output Total 400 / 1325 1250 / 2575 Balance -20 / 125 -1250 / -1125 Weight last 48 hrs Weight 178 lb 6.4 oz Weight 175 lb 1 oz Weight 176 lb Weight 166 lb Physical Exam 2 GI: OTHER: Abdomen soft nontender nondistended Urinary Catheter Management: Hurt: Cath Placed During This Visit: yes Reason for Continuing Indwelling Catheter: Accurate Measurement of Urinary Output in Critically Ill Patients Urinary Catheter Date of Insertion: 08/04/25 Urinary Catheter Time of Insertion: 15:08 Data 08/05/25 05:03 08/05/25 05:03 Micro: Microbiology 08/04/25 19:34 Occult Blood (FIT) - Final Stool 08/03/25 17:09 Blood Culture - Preliminary Blood NEGATIVE TO DATE 08/03/25 17:06 Blood Culture - Preliminary Blood NEGATIVE TO DATE A&P Assessment and plan 1. GI bleed: Plan: Patient doing well, upper endoscopy showed evidence of multiple erosions of the antrum of the stomach no active bleeding noted but there was stigmata of bleeding biopsies were taken. The colonoscopy showed evidence of multiple polyps he will be recommended to repeat a colonoscopy between 2 and 3 years. Due to multiple polypectomies patient should not be restarted on anticoagulation over the next 48 hours. He is cleared to advance diet as tolerated, should continue twice a day pantoprazole and Carafate in the outpatient setting. All other management per medical team PDMP PDMP Reviewed: Not Reviewed Attestations 2 Medical Necessity Statement*: Per medical team Coding Level of Care Code Acute Code for Ch Fwd Diagnoses GI bleed K92.2
--- NOTE | 2025-08-05 08:05 | ANE.PACU2 ---
Inpatient post-anesthesia follow up: Airway intact: Yes Vital signs: Temperature 97.8 F Pulse Rate 98 Respiratory Rate 18 Blood Pressure 130/46 Pulse Oximetry 91 Oxygen Delivery Me thod Nasal Cannula Oxygen Flow Rate 5 Fraction of Inspir ed Oxygen Hydration adequate: Yes Nausea and vomiting: No Pain level: 1 Mental status: Baseline
--- NOTE | 2025-08-05 09:29 | ECG_ITS ---
SHADOW Test Date: 2025-08-05 Pat Name: Guy Wiseman Department: Room: 260 Gender: Male [employer] Administrator: : [id number] Requested By: Cruz Fang Order Number: [id number] Valeria MD: Patrice Lopez M.D. Measurements Intervals [place] Rate: 92 P: 1 [place]: 280 QRS: -5 QRSD: 102 T: 83 QT: 395 QTc: 489 Interpretive Statements SINUS RHYTHM WITH FIRST DEGREE AV BLOCK WITH OCCASIONAL SUPRAVENTRICULAR PREMATURE COMPLEXES POSSIBLE ANTERIOR MYOCARDIAL INFARCTION , PROBABLY OLD [30 ms Q WAVE IN V3/V4, OR R < 0.2 mV IN V4] Compared to ECG 08/03/2025 16:03:06 Myocardial infarct finding now present Electronically Signed On 08-05-2025 13:42:46 CDT by Patrice Lopez M.D. [email or web address]
--- NOTE | 2025-08-05 10:14 | PC.CHAP ---
Pastoral Care Encounter/Spiritual Assessment Type of Contact [] Declined belt tender visit [] Patient/Family/Request visit [] Outpatient visit [] Follow-up visit [] Physician referral [] Code/Alert [] Routine visit [] Staff referral [] Actively dying [] Patient sleeping [] Family support [] [] Out of room [] Palliative care [] [x] Receiving care in room [] Pre-surgical visit [] Trauma [] Long length of stay [] ICU visit [] Other: Relational/Emotional Strength [] Patient feels connected with others/family/visitors/staff [] Distress [] Loneliness/isolation [] Abandonment Spirituality of Patient [] Person of Rosa [] Attends Sikh of their [place] [] Believes in Prayer [] Reads Bible or Amish materials [] There are Spiritual issues to be addressed Rubbish Collector Interventions [] Prayer [] Active listening [] Non-anxious presence [] Spiritual/emotional support [] Crisis/trauma care [] Spiritual counseling [] Bereavement support [] Provided bereavement packet [] Provided Bible/devotional materials [] Provided toy/stuffed animal, coloring book to patient or family member [] Provided Communion [] Anointing/Union [] Salvation [] Completed spiritual assessment [] Other: Impact on Illness or Injury [] Angry [] Fearful [] Anxious [] Often cries [] Exhaustion [] Unable to work [] Unable to attend cheondoism [] Unable to walk/stand [] Unable to read [] Unable to drive [] Unable to eat/drink [] Unable to sleep [] Unable to be with family [] Patient intubated [] Other: Summary Time spent with patient
--- NOTE | 2025-08-05 10:37 | PC.SOCIAL ---
IMM Update pg 2 of IMM Updated and reviewed w/ patient. Copy provided and copy dated, initialed and placed in chart.
[2025-08-05] MEDS: vancomycin 500 MG in sodium chloride 0.9% (plus) 100 ML 200 MG IV (12:30)
[2025-08-05 13:34] LABS: Estmated Average Glucose 151; Hemoglobin A1C 6.9 % (4.0-6.0)
--- NOTE | 2025-08-05 14:53 | P.PN_ITS ---
Subjective 2 Subjective: Patient was seen this morning, after his EGD and colonoscopy, does report shortness of breath, is on 4 L, discussed IV diuresis, he is in agreement, plan is to hold blood thinners for another 24 hours after discussing with general surgery, discussed with patient, discussed risk and benefits, he voiced understanding, all questions answered, agreed to proceed Vitals/I&O/Wt Last Vital Signs Temp 98.0 F 08/05/25 11:57 Pulse 94 08/05/25 11:57 Resp 16 08/05/25 11:57 BP 130/52 08/05/25 11:57 Pulse Ox 91 08/05/25 11:57 O2 Del Method Nasal Cannula 08/05/25 11:57 O2 Flow Rate 5 08/05/25 08:25 08/04/25 08/05/25 08/05/25 22:59 06:59 14:59 Intake Total 380 / 1450 740 / 740 Output Total 400 / 1325 1250 / 2575 1250 / 1250 Balance -20 / 125 -1250 / -1125 -510 / -510 Weight last 48 hrs Weight 80.921 kg Weight 79.407 kg Weight 79.832 kg Weight 75.296 kg Physical Exam 2 Const: COMMON NORMALS: no acute distress and patient oriented x3 Resp: COMMON NORMALS: normal respiratory effort, No retractions and No use of accessory muscles AUSCULTATION: crackles and wheezes Cardio: COMMON NORMALS: regular rate, regular rhythm, S1 normal heart sound present and S2 normal heart sound present RATE: regular rate RHYTHM: r egular rhythm HEART SOUNDS: S1 normal heart sound present and S2 normal heart sound present GI: COMMON NORMALS: Normal to inspection, nondistended, normoactive bowel sounds present and non-tender Extremity: NARRATIVE EXTREMITY EXAM: 2+ pitting edema Neuro: COMMON NORMALS: patient oriented x3 Psych: COMMON NORMALS: mental status grossly normal Urinary Catheter Management: Hurt: Cath Placed During This Visit: yes Reason for Continuing Indwelling Catheter: Accurate Measurement of Urinary Output in Critically Ill Patients Urinary Catheter Date of Insertion: 08/04/25 Urinary Catheter Time of Insertion: 15:08 Data 08/05/25 05:03 08/05/25 05:03 Micro: Microbiology 08/04/25 19:34 Occult Blood (FIT) - Final Stool 08/03/25 17:09 Blood Culture - Preliminary Blood NEGATIVE TO DATE 08/03/25 17:06 Blood Culture - Preliminary Blood NEGATIVE TO DATE A&P Assessment and plan 1. Acute anemia: 2. Diabetic foot infection: 3. Acute exacerbation of CHF (congestive heart failure): 4. Supratherapeutic INR: 5. Type 2 diabetes mellitus with foot ulcer: 6. Abscess of left foot: 7. S/P TAVR (transcatheter aortic valve replacement): 8. Pulmonary hypertension: 9. Peripheral arterial disease: 10. History of pulmonary embolism: 11. Acute hypotension: 12. GI bleed: Plan: Acute anemia - Concern for slow GI bleed - On Eliquis therapy - History of bloody stool, positive Cologuard - EGD showed gastritis, erosions -Colonoscopy status post polypectomy x 5 Plan - Has evidence of iron deficiency, status post 1 dose IV iron - Status post 2 units PRBC, hemoglobin 8.0 - Discussed risk and benefits of holding Eliquis therapy, shared decision making, patient voiced understanding, all questions answered, agreed to proceed - Protonix - Carafate - Monitor hemoglobin closely - Full code - SCDs for DVT prophylaxis - Spoke to general surgery, plans on EGD colonoscopy tomorrow, start bowel prep today Acute hypotension, resolved, on bolus hold blood pressure medications Evidence of fluid overload, shortness of breath, has CHF exacerbation, systolic and diastolic Plan - Bumex 1 mg IV every 8 hours - Monitor urine output, monitor creatinine - Cardiac echo Diabetic foot infection, left foot - CT/CT foot LT wo con* [id number] IMPRESSION: Dense calcific structure underlying the 5th metatarsal head, intimately associated with known diabetic ulcer. Diffuse subcutaneous swelling compatible with possible cellulitis. No definitive well-defined osseous erosions. No large focal collection amenable to percutaneous drainage. - Blood cultures - Vancomycin - Rocephin Diabetic foot infection right foot CT/CT foot RT wo con* [id number] IMPRESSION: Subcutaneous edema and swelling, nonspecific although compatible with apparent diabetic foot infection. No definitive radiographic evidence of focal fluid collection or osseous erosions. Plan IV antibiotics as above History of pulmonary hypertension, - Due to initial concerns for hypotension will hold Adempas, and Opsumit for today - Likely resume today GT in CKD, monitor creatinine, monitor urine output Type 2 diabetes mellitus, low-dose sliding scale Full code SCDs for DVT prophylaxis PDMP PDMP Reviewed: Not Reviewed Attestations 2 Medical Necessity Statement*: Patient requires hospitalization acute anemia, fluid overload Diagnoses Acute anemia D64.9 Diabetic foot infection E11.628; L08.9 Acute exacerbation of CHF (congestive heart failure) I50.9 Supratherapeutic INR R79.1 Type 2 diabetes mellitus with foot ulcer E11.621; L97.509 Abscess of left foot L02.612 S/P TAVR (transcatheter aortic valve replacement) Z95.2 Pulmonary hypertension I27.20 Peripheral arterial disease I73.9 History of pulmonary embolism Z86.711 Acute hypotension I95.9 GI bleed K92.2
[2025-08-05] MEDS: RIOCIGUAT 2.5 MG 2.5 EACH PO ×2 (15:36→21:09)
--- NOTE | 2025-08-05 16:17 | XR_ITS ---
WS: [id number] XR chest 1V portable [id number] REASON FOR EXAM: sob FINDINGS: Compared to the examination of 08/03/2025 there is no fluid in the minor fissure with blunting of the right costophrenic angle and an overall increased density of the right lung. There is mild cardiomegaly with aortic stent graft. The chest is otherwise unchanged compared to the previous study. XR/XR chest 1V portable [id number] IMPRESSION: Possible early congestive heart failure.
[2025-08-05] MEDS: HYDROcodone-acetaminophen 5-325 mg Tablet 1 TAB PO (18:21)
[2025-08-05] MEDS: sucralfate 1 gm/10 mL Oral Liq UDC PO (20:49)
[2025-08-05] MEDS: pantoprazole 40 mg SDV IVP (20:50)
[2025-08-05] MEDS: cefTRIAXone 1,000 mg SDV 1000 MG IVP (20:56)
[2025-08-06] VITALS (12 sets, daily range): BP systolic 111–165; BP diastolic 42–63; PULSE 86–104; RESP 16–18; TEMP 36.7–38; O2SAT 88–96; BMI 29.9
[2025-08-06] MEDS: bumetanide 0.25 mg/mL SDV 4 mL 1 MG IVP ×2 (02:17→20:12)
[2025-08-06] MEDS: sucralfate 1 gm/10 mL Oral Liq UDC PO ×4 (02:23→20:13)
[2025-08-06 04:57] LABS: Hematocrit 23.8 % (37-53); Hemoglobin 7.30 g/dL (11.27-16.99); Mean Corpuscular HGB Conc 30.7 g/dL (30-55); Mean Corpuscular Hemoglobin 29.7 pg (27-33); Mean Corpuscular Volume 96.7 fl (82-101); Nucleated Red Blood Cells % 0 %; Platelet Count 138 10^3/cmm (157-399); Red Blood Count 2.46 10^6/uL (3.85-5.65); White Blood Count 7.74 10^3/uL (3.29-11.43)
[2025-08-06 05:17] LABS: Alanine Aminotransferase < 5 U/L (0-41); Albumin Level 3.0 g/dL (3.5-5.2); Alkaline Phosphatase 186 U/L (40-130); Anion Gap 18.5 (5-19); Aspartate Amino Transferase 16 U/L (0-40); Blood Urea Nitrogen 61 mg/dL (8-23); Calcium 8.2 mg/dL (8.5-10.5); Carbon Dioxide 19 mmol/L (22-29); Chloride 105 mmol/L (98-107); Creatinine Clr Calc Pharmacy 18.5885; Globulin 2.7 g/dL (1.3-4.6); Glucose 134 mg/dL (65-115); Osmolality Calculated 305 mOsm/kg (285-295); Potassium 4.5 mmol/L (3.5-5.1); Sodium 138 mmol/L (136-145); Total Protein 5.7 g/dL (6.6-8.7)
[2025-08-06 08:26] LABS: NT Pro B Type Natriuretic Pept 16874 pg/mL (0-125)
[2025-08-06] MEDS: pantoprazole 40 mg SDV IVP ×2 (08:50→20:12)
[2025-08-06] MEDS: RIOCIGUAT 2.5 MG 2.5 EACH PO ×3 (08:56→20:12)
[2025-08-06] MEDS: MACITENTAN 10 MG 10 EACH PO (08:56)
[2025-08-06 13:21] LABS: Hematocrit 25.0 % (37-53); Hemoglobin 7.70 g/dL (11.27-16.99)
--- NOTE | 2025-08-06 13:38 | P.PN_ITS ---
Subjective 2 Subjective: Patient was seen this morning, is at bedside, currently on 5 L he does not use oxygen at home, he feels less short of breath his edema is improving, denies any fevers, no chills, no cough, discussed his hemoglobin of 7.3, discussed blood transfusion, but concern for fluid overload will diurese him with blood transfusion, discussed risk and benefits of holding anticoagulant therapy, patient voiced understanding, all questions answered, agreed to proceed discussed his persistent hypoxia, likely component of his COPD, pulmonary hypertension Vitals/I&O/Wt Last Vital Signs Temp 98.6 F 08/06/25 12:00 Pulse 92 08/06/25 12:00 Resp 18 08/06/25 12:00 BP 111/43 08/06/25 12:00 Pulse Ox 90 08/06/25 12:00 O2 Del Method Nasal Cannula 08/06/25 12:00 O2 Flow Rate 5 08/06/25 08:00 08/05/25 08/06/25 08/06/25 22:59 06:59 14:59 Intake Total 240 / 1080 480 / 480 Output Total 800 / 2050 600 / 2650 Balance -560 / -970 -600 / -1570 480 / 480 Weight last 48 hrs Weight 78.97 kg Weight 80.921 kg Physical Exam 2 Const: COMMON NORMALS: no acute distress and patient oriented x3 Resp: COMMON NORMALS: normal respiratory effort, No retractions and No use of accessory muscles AUSCULTATION: wheezes Cardio: COMMON NORMALS: regular rate, regular rhythm, S1 normal heart sound present and S2 normal heart sound present RATE: regular rate RHYTHM: r egular rhythm HEART SOUNDS: S1 normal heart sound present and S2 normal heart sound present GI: COMMON NORMALS: Normal to inspection, nondistended, normoactive bowel sounds present and non-tender Extremity: NARRATIVE EXTREMITY EXAM: Nonpitting edema Neuro: COMMON NORMALS: patient oriented x3 Psych: COMMON NORMALS: mental status grossly normal Urinary Catheter Management: Hurt: Cath Placed During This Visit: yes Reason for Continuing Indwelling Catheter: Other Urinary Catheter Date of Insertion: 08/04/25 Urinary Catheter Time of Insertion: 15:08 Data 08/06/25 13:05 08/06/25 04:32 A&P Assessment and plan 1. Acute anemia: 2. Diabetic foot infection: 3. Acute exacerbation of CHF (congestive heart failure): 4. Supratherapeutic INR: 5. Type 2 diabetes mellitus with foot ulcer: 6. Abscess of left foot: 7. S/P TAVR (transcatheter aortic valve replacement): 8. Pulmonary hypertension: 9. Peripheral arterial disease: 10. History of pulmonary embolism: 11. Acute hypotension: 12. GI bleed: 13. Acute respiratory failure with hypoxia: Plan: Acute anemia - Concern for slow GI bleed - On Eliquis therapy - History of bloody stool, positive Cologuard - EGD showed gastritis, erosions -Colonoscopy status post polypectomy x 5 - Hemoglobin 7.3 Plan - Has evidence of iron deficiency, status post 1 dose IV iron - Status post 2 units PRBC, hemoglobin 7.3 we will transfuse 1 unit PRBC, continue to hold Eliquis - Discussed risk and benefits of holding Eliquis therapy, shared decision making, patient voiced understanding, all questions answered, agreed to proceed - Protonix - Carafate - Monitor hemoglobin closely - Full code - SCDs for DVT prophylaxis - Spoke to general surgery, plans on EGD colonoscopy tomorrow, start bowel prep today Acute hypotension, resolved, on bolus hold blood pressure medications Evidence of fluid overload, shortness of breath, has CHF exacerbation, systolic and diastolic Plan - Bumex 1 mg IV, with metolazone today - Monitor urine output, monitor creatinine - Cardiac echo Acute hypoxic respiratory failure - Requiring 5 L - Does not use oxygen at bedside - Likely multifactoral for pulm hypertension, COPD, CHF - Chest x-ray no focal findings - Continue to diurese as above Diabetic foot infection, left foot - CT/CT foot LT wo con* [id number] IMPRESSION: Dense calcific structure underlying the 5th metatarsal head, intimately associated with known diabetic ulcer. Diffuse subcutaneous swelling compatible with possible cellulitis. No definitive well-defined osseous erosions. No large focal collection amenable to percutaneous drainage. - Blood cultures - Vancomycin - Rocephin Diabetic foot infection right foot CT/CT foot RT wo con* [id number] IMPRESSION: Subcutaneous edema and swelling, nonspecific although compatible with apparent diabetic foot infection. No definitive radiographic evidence of focal fluid collection or osseous erosions. Plan IV antibiotics as above History of pulmonary hypertension, - Adempas, and Opsumit - Likely resume today GT in CKD, monitor creatinine, creatinine 3.5, monitor creatinine with diuresis, monitor urine output Type 2 diabetes mellitus, low-dose sliding scale Full code SCDs for DVT prophylaxis Plan for today, continue to IV diuresis, monitor hemoglobin, GT on CKD, with diabetic foot infection, antibiotic therapy will be de-escalated, consult podiatry for wound care, acute hypoxia monitor, continue to hold blood thinner PDMP PDMP Reviewed: Not Reviewed Attestations 2 Medical Necessity Statement*: Patient requires hospitalization for GT, respiratory failure, acute anemia, acute hypoxia, fluid overload Diagnoses Acute anemia D64.9 Diabetic foot infection E11.628; L08.9 Acute exacerbation of CHF (congestive heart failure) I50.9 Supratherapeutic INR R79.1 Type 2 diabetes mellitus with foot ulcer E11.621; L97.509 Abscess of left foot L02.612 S/P TAVR (transcatheter aortic valve replacement) Z95.2 Pulmonary hypertension I27.20 Peripheral arterial disease I73.9 History of pulmonary embolism Z86.711 Acute hypotension I95.9 GI bleed K92.2 Acute respiratory failure with hypoxia J96.01
--- NOTE | 2025-08-06 14:29 | P.PN_ITS ---
Subjective 2 Subjective: Patient doing well, hemoglobin has remained stable no significant abdominal pain. Vitals/I&O/Wt Last Vital Signs Temp 98.6 F 08/06/25 12:00 Pulse 92 08/06/25 12:00 Resp 18 08/06/25 12:00 BP 111/43 08/06/25 12:00 Pulse Ox 90 08/06/25 12:00 O2 Del Method Nasal Cannula 08/06/25 12:00 O2 Flow Rate 5 08/06/25 08:00 08/05/25 08/06/25 08/06/25 22:59 06:59 14:59 Intake Total 240 / 1080 480 / 480 Output Total 800 / 2050 600 / 2650 Balance -560 / -970 -600 / -1570 480 / 480 Weight last 48 hrs Weight 174 lb 1.6 oz Weight 178 lb 6.4 oz Physical Exam 2 GI: OTHER: Abdominal exam is benign. Urinary Catheter Management: Hurt: Cath Placed During This Visit: yes Reason for Continuing Indwelling Catheter: Other Urinary Catheter Date of Insertion: 08/04/25 Urinary Catheter Time of Insertion: 15:08 Data 08/06/25 13:05 08/06/25 04:32 A&P Assessment and plan 1. GI bleed: Plan: I went over findings of EGD and colonoscopy with the patient I have explained that there is some irritation in the stomach and I removed several polyps but are not that no active bleeding noted. Explained to the patient that if he is in good health in 5 years he can have a repeat colonoscopy. He could resume his anticoagulation from the surgical standpoint. All other management per medical team is appreciated. Patient can follow-up in 2 weeks to the general surgery clinic to talk about the results of the biopsies PDMP PDMP Reviewed: Not Reviewed Attestations 2 Medical Necessity Statement*: Per medical team Coding Level of Care Code Acute Code for [facility] Fwd Diagnoses GI bleed K92.2
--- NOTE | 2025-08-06 20:06 | PM.CONSULT ---
Providers/Reason For Consult Consulting Physician/Specialty*: Sylvain Mnedoza D.P.M. Reason for Consult*: Left foot ulcer, right foot lacerations Attending Physician: Cruz Fang MD Primary Care Provider: Patrick Nick MD History of Present Illness History of Present Illness Guy Wiseman is a 70 year old male admitted to the hospital service for acute anemia, acute hypotension, CHF exacerbation with shortness of breath and fluid overload, acute hypoxic respiratory failure. Patient sustained a laceration at the plantar aspect of the right 2nd, 3rd and 4th toes due to injury 08/02/2025 slipped and fell in the shower, was repaired at the emergency department, was a clean wound, uneventful repair, tetanus updated and was prescribed cephalexin. Patient has a longstanding wound at the left foot adjacent to fifth metatarsal head. X-rays and CT scan negative for osteomyelitis. Has been actively treated at wound care clinic for the left foot wound. Wound culture postdebridement at wound clinic taken 08/03/2025 significant for strep group B, patient was directed to the emergency department from wound care clinic due to concern for orthostatic hypotension while on long-term anticoagulation therapy. Patient eventually went to the emergency department later that day. Review of Systems General: Reports: 10 or more systems reviewed and unremarkable except in HPI and below Const: Denies: fever(s) or chills Eyes: Denies: change in vision Card: Denies: chest pain or palpitations Resp: Denies: dyspnea or productive cough GI: Denies: abdominal pain, nausea or vomiting : Denies: flank pain Musc: Reports: extremity swelling, joint stiffness and deformity Skin/Breast: Reports: erythema, sores, changes in skin color, dry skin, nail changes and change in hair Neuro: Reports: numbness in extremities, sensory changes and difficulty walking Psych: Denies: suicidal ideation Endo: Denies: change in body appearance Rogelio/Lymph: Denies: tender lymph nodes Medications/Allergies Home Medications ?Medication ?Instructions ?Recorded ?Confirmed ?Last Taken ?Type Cam boot to left #1 ea 05/15/23 08/04/25 07/13/23 Rx bumetanide 1 mg tablet 2 mg PO DAILY 11/27/23 08/04/25 08/03/25 History levothyroxine 112 mcg tablet 112 mcg PO DAILY 11/27/23 08/04/2525 History riociguat 2.5 mg tablet (Adempas) 2.5 mg PO TID 11/27/23 08/04/25 08/03/25 History Diabetic shoes #1 ea 08/25/24 08/04/25 Unknown Rx CAM walker #1 ea 04/20/25 08/04/25 Unknown Rx acetaminophen 500 mg tablet 1,000 mg PO Q6H PRN Fever Or Pain 07/18/25 08/04/25 Unknown History (Tylenol Extra Strength) apixaban 5 mg tablet (Eliquis) 5 mg PO BID 07/18/25 08/04/25 08/03/25 History atorvastatin 40 mg tablet 40 mg PO DAILY 07/18/25 08/04/25 08/03/25 History losartan 25 mg tablet 25 mg PO DAILY 07/18/25 08/04/25 08/03/25 History metoprolol succinate 25 mg 25 mg PO DAILY 07/18/25 08/04/25 08/03/25 History tablet,extended release 24 hr cephalexin 500 mg capsule 500 mg PO Q6H 7 days #28 caps 08/02/25 08/04/25 08/03/25 Rx macitentan 10 mg tablet (Opsumit) 10 mg PO DAILY 08/02/25 08/04/25 08/03/25 History hydrocodone 5 mg-acetaminophen 325 1 tab PO Q8H PRN pain 4 days #12 08/03/25 08/04/25 Unknown Rx mg tablet tabs Allergies Allergy/AdvReac Type Severity Reaction Status Date / Time No Known Allergies Allergy Verified 08/02/25 12:15 Current Medications Generic Name Dose Route Start Last Admin Trade Name Freq PRN Reason Stop Dose Admin Hydrocodone Bitart/Acetaminophen 1 tab 08/03/25 20:54 08/05/25 18:21 Hydrocodone-Acetaminophen 5-325 Mg Tablet PO 1 tab Q8H PRN Administration PAIN Atorvastatin Calcium 40 mg 08/04/25 09:00 08/06/25 08:50 Atorvastatin 40 Mg Tablet PO 40 mg DAILY CHUY Administration Doxycycline Monohydrate 100 mg 08/06/25 09:00 08/06/25 17:23 Doxycycline 100 Mg Tablet PO 100 mg BID CHUY Administration Protocol Insulin Human Lispro 0 unit 08/04/25 08:00 08/06/25 17:47 Insulin Lispro 100 Unit/1 Ml SUBCUT Not Given TIDWM CHUY Protocol Levothyroxine Sodium 112 mcg 08/04/25 09:00 08/06/25 08:50 Levothyroxine 112 Mcg Tablet PO 112 mcg DAILY CHUY Administration Non-Formulary Medication 10 mg 08/04/25 16:00 08/06/25 08:56 Macitentan [Opsumit] PO 10 mg DAILY CHUY Administration Non-Formulary Medication 2.5 mg 08/04/25 16:00 08/06/25 16:11 Riociguat [Adempas] PO 2.5 mg TID CHUY Administration Ondansetron HCl 4 mg 08/03/25 20:54 08/04/25 14:40 Ondansetron 2 Mg/Ml Sdv 2 Ml IVP 4 mg Q8H PRN Administration vomiting, or N/V if npo Pantoprazole Sodium 40 mg 08/03/25 20:54 08/06/25 08:50 Pantoprazole 40 Mg Sdv IVP 40 mg Q12H CHUY Administration Sucralfate 1 gm 08/03/25 20:54 08/06/25 16:11 Sucralfate 1 Gm/10 Ml Oral Liq Udc PO 1 gm Q6H CHUY Administration PFSH Acute PFSH: Medical History (Updated 08/07/25 @ 07:26 by Sylvain Mendoza DPM) Pericardial effusion Tobacco abuse Anemia Diabetes Warfarin anticoagulation Chest pain History of pulmonary embolism Congestive heart failure History of nonmelanoma skin cancer Hypothalamic hypothyroidism Hypertension History of blood clots COPD (chronic obstructive pulmonary disease) History of pulmonary embolism Surgical History S/P TAVR (transcatheter aortic valve replacement) History of rotator cuff surgery Social History Smoking and tobacco/nicotine status: current every day tobacco/nicotine user Alcohol intake: never Substance/Drug Use: never Vitals/I&O/Wt Last Vital Signs Temp 99.4 F 08/06/25 16:50 Pulse 103 H 08/06/25 16:25 Resp 18 08/06/25 16:25 BP 132/63 08/06/25 16:25 Pulse Ox 91 08/06/25 16:25 O2 Del Method Nasal Cannula 08/06/25 15:56 O2 Flow Rate 5 08/06/25 08:00 08/06/25 08/06/25 08/06/25 06:59 14:59 22:59 Intake Total 480 / 480 350 / 830 Output Total 600 / 2650 1350 / 1350 Balance -600 / -1570 480 / 480 -1000 / -520 Weight last 48 hrs Weight 174 lb 1.6 oz Weight 178 lb 6.4 oz Physical Exam Narrative: GENERAL: Patient is alert and oriented ?3 and in no acute distress. The following is a focused bilateral lower extremity exam. ambulating without assistance. VASCULAR: Dorsalis pedis diminished bilaterally, posterior tibial arteries diminished. Capillary refill time less than 5 seconds to the distal hallux bilaterally. Calf is supple and nontender proximally and distally. Decreased pedal hair growth NEUROLOGICAL: Protective sensation intact 9/10 sites, tested with [place] Renato monofilament to bilateral feet. DERMATOLOGICAL: Wound left foot lateral to fifth metatarsal head exposed to myofascial layer subfifth metatarsal head predebridement measures 1 cm x 1 cm cm x 0.3 cm no purulence and no periwound erythema, serous drainage present. Lower extremity integument is atrophic with decreased texture and turgor, has thin shiny appearance. Laceration with sutures intact plantar sulcus of right 2nd, 3rd and 4th toes without erythema warmth or drainage. MUSCULOSKELETAL: No pain to palpation subfifth metatarsal head left foot. Tailor's bunion bilaterally. Urinary Catheter Management: Hurt: Cath Placed During This Visit: yes Reason for Continuing Indwelling Catheter: Accurate Measurement of Urinary Output in Critically Ill Patients Urinary Catheter Date of Insertion: 08/04/25 Urinary Catheter Time of Insertion: 15:08 Data 08/07/25 04:28 08/07/25 04:28 A&P Assessment and plan 1. Diabetic peripheral neuropathy associated with type 2 diabetes mellitus: 2. Chronic ulcer of left foot with necrosis of muscle: PROCEDURE: Full thickness wound debridement Location: Left lateral foot adjacent to fifth metatarsal head Local Anesthesia: none due to neuropathy Consent: Verbal Sterile Prep: with alcohol Details: Full thickness sharp debridement of the wound was performed using sterile dermal curette. The wound was debrided of hyperkeratotic rim and devitalized and fibrotic tissue down to muscle/fascia, being the deepest level of debridement. Predebridement measurements: 1 cm x 1 cm x 0.3 cm Postdebridement measurements: 1.1 cm x 1.1 cm x 0.3 cm Hemostasis: Pressure Irrigation: sterile saline Dressing: Hydrofera Blue, Herbert and tape Estimated Blood Loss: minimal Offloading: cam boot 3. Laceration of right foot, initial encounter: Plan: 70-year-old diabetic male with chronic ulcer left lateral forefoot and laceration right foot. No leukocytosis, ESR 26, CRP 26, left foot x-ray and left foot CT scan negative for osteomyelitis. Wound does not probe to bone. Wound debridement performed as above, wound did not extend to bone. Wound culture recently taken in wound care clinic 08/03/2025 significant for strep B. Antibiotics per hospitalist. Wound is chronic but clinically stable at this time without acute signs of infection. Performed wound dressing Hydrofera Blue, Herbert and tape at left foot. Weightbearing as tolerated with CAM boot left lower extremity for offloading of left foot wound. No plans for surgical intervention during this hospitalization, recommend wound care clinic follow-up for left foot after discharge. Follow-up in podiatry clinic in 2 weeks for right foot suture removal. PDMP PDMP Reviewed: Not Reviewed Consult Attestations Medical Necessity Statement: Deferred to primary Coding Level of Care Code Acute Code for [facility] Fwd Diagnoses Diabetic peripheral neuropathy associated with type 2 diabetes mellitus E11.42 Chronic ulcer of left foot with necrosis of muscle L97.523 Laceration of right foot, initial encounter S91.311A Encounter type: initial encounter Comment CPT 87237
[2025-08-07] VITALS (7 sets, daily range): BP systolic 93–151; BP diastolic 37–65; PULSE 85–99; RESP 16–18; TEMP 36.7–37.2; O2SAT 86–96
[2025-08-07 00:51] LABS: Hematocrit 26.1 % (37-53); Hemoglobin 8.10 g/dL (11.27-16.99)
[2025-08-07] MEDS: sucralfate 1 gm/10 mL Oral Liq UDC PO ×2 (03:59→09:32)
[2025-08-07 04:45] LABS: Hematocrit 27.5 % (37-53); Hemoglobin 8.20 g/dL (11.27-16.99); Mean Corpuscular HGB Conc 29.8 g/dL (30-55); Mean Corpuscular Hemoglobin 28.3 pg (27-33); Mean Corpuscular Volume 94.8 fl (82-101); Nucleated Red Blood Cells % 0 %; Platelet Count 128 10^3/cmm (157-399); Red Blood Count 2.90 10^6/uL (3.85-5.65); White Blood Count 9.64 10^3/uL (3.29-11.43)
[2025-08-07 05:18] LABS: Alanine Aminotransferase < 5 U/L (0-41); Albumin Level 2.9 g/dL (3.5-5.2); Alkaline Phosphatase 183 U/L (40-130); Anion Gap 17.4 (5-19); Aspartate Amino Transferase 17 U/L (0-40); Blood Urea Nitrogen 59 mg/dL (8-23); Calcium 8.4 mg/dL (8.5-10.5); Carbon Dioxide 18 mmol/L (22-29); Chloride 107 mmol/L (98-107); Creatinine Clr Calc Pharmacy 17.8644; Globulin 3.1 g/dL (1.3-4.6); Glucose 132 mg/dL (65-115); Osmolality Calculated 304 mOsm/kg (285-295); Potassium 4.4 mmol/L (3.5-5.1); Sodium 138 mmol/L (136-145); Total Protein 6.0 g/dL (6.6-8.7)
--- NOTE | 2025-08-07 09:10 | PC.SOCIAL ---
IMM Update pg 2 of IMM Updated and reviewed w/ patient. Copy provided and copy dated, initialed and placed in chart.
[2025-08-07] MEDS: pantoprazole 40 mg SDV IVP (09:32)
[2025-08-07] MEDS: RIOCIGUAT 2.5 MG 2.5 EACH PO (09:33)
[2025-08-07] MEDS: MACITENTAN 10 MG 10 EACH PO (09:33)
--- NOTE | 2025-08-07 10:56 | PM.DCS ---
Discharge Providers Date of Admission: 08/03/25 18:48 Date of Discharge: August 07, 2025 Attending Provider at Admission: Cruz Fang MD Attending Provider at Discharge: Cruz Fang MD Primary Care Provider: Patrick Nick MD Diagnoses at Discharge Discharge Diagnosis 1. Diabetic peripheral neuropathy associated with type 2 diabetes mellitus: 2. Chronic ulcer of left foot with necrosis of muscle: 3. Laceration of right foot, initial encounter: Reason for Visit Reason for Visit: Low bp Hospital Course Hospital Course Guy Wiseman is a 70 year old male past medical history of pulmonary embolism on Eliquis, history of tissue aortic valve replacement, history of pulmonary hypertension on Adempas and Opsumit, history of bilateral diabetic wounds, history of type 2 diabetes, history of diabetic neuropathy who presents to [facility] from wound care due to concern for low blood pressure and anemia. According to patient, he has noted some blood in his stools, he apparently had a positive Cologuard at some point, denies any black or tarry stools he is on Eliquis, denies history of gastric ulcers, he was found to have a hemoglobin of 6.6, does have bilateral lower extremity diabetic ulcers, that been debrided by wound care, he does report weakness, fatigue, mittens, dizziness, chest pain he does also report bilateral extremity edema he is on Bumex therapy, denies any fevers, no chills, no history of alcoholism, no history of gastric varices Patient was admitted to [facility] for acute anemia, concerns for slow gastrointestinal bleed on chronic Eliquis therapy, status post EGD and colonoscopy as inpatient. EGD showed gastritis and erosions, meanwhile colonoscopy showed evidence of polyps, status post polypectomy. Patient will be discharged with close follow-up with general surgery, for follow-up of pathology. Patient did require 2 units of PRBC during hospitalization, required 1 dose IV Venofer; however, due to persistent anemia Eliquis was held on discharge. I had a detailed discussion with Guy about the risk and benefits of holding anticoagulant therapy, risks including but not limited to risk of stroke/CAD/hypercoagulable events, benefit including decreasing risk of anemia and bleeding. After discussing the risk and benefits of all options, he voiced understanding, all questions answered, shared decision making, agreed to hold Eliquis until next Sunday. Patient was advised if he were to have strokelike symptoms or chest pain or shortness of breath to immediately go to the emergency room Patient's hospitalization was complicated by fluid overload, diastolic CHF exacerbation requiring IV diuresis with Bumex, metolazone Patient's hospitalization was complicated by diabetic foot infections bilateral feet, required IV antibiotics, podiatry consultation with debridement of the left foot, discharged on oral antibiotic, with close follow-up with podiatry - Continue to follow up with wound care - Follow-up with Dr. Mendoza for suture removal - Continue wound care - Continue doxycycline - Continue to hold Eliquis until next Sunday, if hemoglobin is reasonable then can resume -Hemoglobin discharge 8.2 - If you have sudden onset shortness of breath, or chest pain or strokelike symptoms call 911 - Recheck your hemoglobin next week through primary care - Please recheck your creatinine next week through primary care - Creatinine discharge 3.6 - Discharged on 3 L nasal cannula Physical Exam Const: COMMON NORMALS: no acute distress and patient oriented x3 Resp: COMMON NORMALS: normal respiratory effort, No retractions, No use of accessory muscles and clear to auscultation bilaterally AUSCULTATION: clear to auscultation bilaterally Cardio: COMMON NORMALS: regular rate, regular rhythm, S1 normal heart sound present and S2 normal heart sound present RATE: regular rate RHYTHM: regular rhythm HEART SOUNDS: S1 normal heart sound present and S2 normal heart sound present GI: COMMON NORMALS: Normal to inspection, nondistended, normoactive bowel sounds present and non-tender Extremity: COMMON NORMALS: no pedal edema NARRATIVE EXTREMITY EXAM: Right foot, erythema, swelling, tenderness, area of ulceration was improved improved Left foot erythema, swelling, tenderness, area of ulceration stable, surgical debridement site wrapped, no bleeding, Neuro: COMMON NORMALS: patient oriented x3 Psych: COMMON NORMALS: mental status grossly normal Urinary Catheter Management: Hurt: Cath Placed During This Visit: yes Reason for Continuing Indwelling Catheter: Accurate Measurement of Urinary Output in Critically Ill Patients Urinary Catheter Date of Insertion: 08/04/25 Urinary Catheter Time of Insertion: 15:08 Discharge Data Studies Completed and Pending Completed Studies During Hospitalization Category Date Time Status CT foot LT wo con* [id number] Stat Cat Scan 08/03/25 18:[address] foot RT wo con* [id number] Stat Cat Scan 08/03/25 18:49 Completed CXRP [XR chest 1V portable [id number]] Stat Exams 08/05/25 16:17 Completed XR chest 1V portable [id number] Stat Exams 08/03/25 16:37 Completed XR foot LT min 3V* [id number] Stat Exams 08/03/25 17:32 [place] [id number] Routine Ultrasound 08/04/25 18:49 Completed CV. echo complete* [id number] Routine Ultrasound 08/04/25 18:39 Completed Pending at discharge Category Date Time Status Antibody Identification Stat Lab 08/03/25 17:06 Results Antigen Typing Patient Stat Lab 08/03/25 17:06 Results Blood Culture Stat Lab 08/03/25 17:09 Results Leukocyte Reduced RBC Stat Lab 08/03/25 17:06 Results Type and Screen Stat Lab 08/03/25 17:06 Results Pathology: Surgical [PTH] Routine Pth 08/05/25 07:49 Received Radiology Impressions Foot X-Ray 08/03/25 17:32 IMPRESSION: 1. Dense structure overlying the soft tissues adjacent to the 5th metatarsal head, representing soft tissue calcification or an overlying dense bandage. 2. No plain radiograph evidence for osteomyelitis, although the 5th metatarsal head is obscured. 3. Marked soft tissue swelling of the 5th toe and 5th MTP joint. Foot CT 08/03/25 18:49 IMPRESSION: Subcutaneous edema and swelling, nonspecific although compatible with apparent diabetic foot infection. No definitive radiographic evidence of focal fluid collection or osseous erosions. Chest X-Ray 08/05/25 16:17 IMPRESSION: Possible early congestive heart failure. Laboratory Results WBC 9.64 10^3/uL (3.29-11.43) 08/07/25 04:28 RBC 2.90 10^6/uL (3.85-5.65) L 08/07/25 04:28 Hgb 8.20 g/dL (11.27-16.99) L 08/07/25 04:28 Hct 27.5 % (37-53) L 08/07/25 04:28 MCV 94.8 fl (82-101) 08/07/25 04:28 MCH 28.3 pg (27-33) 08/07/25 04:28 MCHC 29.8 g/dL (30-55) L 08/07/25 04:28 RDW 16.4 % (12.1-15.1) H 08/07/25 04:28 Plt Count 128 10^3/cmm (157-399) L 08/07/25 04:28 MPV 9.9 fL (7.4-10.4) 08/07/25 04:28 Neut % (Auto) 70.3 % 08/07/25 04:28 Lymph % (Auto) 15.2 % 08/07/25 04:28 [place] % (Auto) 11.7 % 08/07/25 04:28 Eos % (Auto) 2.2 % 08/07/25 04:28 Baso % (Auto) 0.2 % 08/07/25 04:28 Reticulocyte % (Auto) 2.9 % (0.5-2.0) H 08/03/25 16:20 Neut # (Auto) 6.77 10^3/uL (1.8-7.7) 08/07/25 04:28 Lymph # (Auto) 1.5 10^3/uL (0.8-4.8) 08/07/25 04:28 [place] # (Auto) 1.1 10^3/uL (0.2-0.9) H 08/07/25 04:28 Eos # (Auto) 0.2 10^3/uL (0.0-0.8) 08/07/25 04:28 Baso # (Auto) 0.0 10^3/uL (0.0-0.1) 08/07/25 04:28 Nucleated RBC % (auto) 0 % 08/07/25 04:28 Nucleated RBCs # 0.0 /100WBC 08/07/25 04:28 ESR 26 mm/hr (0-10) H 08/03/25 16:20 PT 19.50 SECONDS (12.1-14.9) H 08/03/25 16:20 INR 1.54 (0.8-1.2) H 08/03/25 16:20 APTT 40.2 SECONDS (23.9-36.7) H 08/03/25 16:20 Specimen Type Venous 08/03/25 17:06 Sample Site Not specified 08/03/25 17:06 Patrice Test N/a 08/03/25 17:06 VBG pH 7.34 (7.32-7.42) 08/03/25 17:06 VBG pCO2 33.6 mmHg (41-51) L 08/03/25 17:06 VBG pO2 30.9 mmHg (25-40) 08/03/25 17:06 VBG HCO3 18.1 mmol/L (24-28) L 08/03/25 17:06 VBG Base Excess -7.0 mmol/L (-3.0-3.0) L 08/03/25 17:06 VBG Hematocrit 21.4 % (42-52) L 08/03/25 17:06 O2 Delivery Device None 08/03/25 17:06 FiO2 21.0 % 08/03/25 17:06 Winding Department Supervisor ID Gd 08/03/25 17:06 Sodium 138 mmol/L (136-145) 08/07/25 04:28 Potassium 4.4 mmol/L (3.5-5.1) 08/07/25 04:28 Chloride 107 mmol/L (98-107) 08/07/25 04:28 Carbon Dioxide 18 mmol/L (22-29) L 08/07/25 04:28 Anion Gap 17.4 (5-19) 08/07/25 04:28 BUN 59 mg/dL (8-23) H 08/07/25 04:28 Creatinine 3.6 mg/dL (0.7-1.2) H 08/07/25 04:28 GFR Calculation Not Reportable 08/07/25 04:28 Glucose 132 mg/dL (65-115) H 08/07/25 04:28 POC Glucose 153 mg/dL (70-110) H 08/07/25 06:12 Estimat Average Glucose 151 08/03/25 16:20 Hemoglobin A1c 6.9 % (4.0-6.0) H 08/03/25 16:20 Calculated Osmolality 304 mOsm/kg (285-295) H 08/07/25 04:28 Lactic Acid 1.2 mmol/L (0.5-2.2) 08/03/25 16:20 Calcium 8.4 mg/dL (8.5-10.5) L 08/07/25 04:28 Magnesium 2.0 mg/dL (1.7-2.3) 08/03/25 16:20 Iron 19 ug/dL (59-158) L 08/03/25 16:20 Ferritin 157 ng/mL (30-400) 08/03/25 16:20 Total Bilirubin 0.5 mg/dL (0.15-1.2) 08/07/25 04:28 AST 17 U/L (0-40) 08/07/25 04:28 ALT < 5 U/L (0-41) 08/07/25 04:28 Alkaline Phosphatase 183 U/L (40-130) H 08/07/25 04:28 NT-Pro-B Natriuret Pep 03437 pg/mL (0-125) H 08/06/25 04:32 Total Protein 6.0 g/dL (6.6-8.7) L 08/07/25 04:28 Albumin 2.9 g/dL (3.5-5.2) L 08/07/25 04:28 Globulin 3.1 g/dL (1.3-4.6) 08/07/25 04:28 Triglycerides 99 mg/dL (0-150) 08/03/25 16:20 Cholesterol 60 mg/dL (0-200) 08/03/25 16:20 LDL Cholesterol, Calc 16 mg/dL (50-129) L 08/03/25 16:20 HDL Cholesterol 24 mg/dL (60-100) L 08/03/25 16:20 LDL/HDL Ratio 0.67 RATIO (0.00-3.22) 08/03/25 16:20 Cholesterol/HDL Ratio 2.50 mg/dL (1.0-5.00) 08/03/25 16:20 Procalcitonin 0.35 ng/mL (0-0.5) 08/03/25 16:20 TSH 5.77 uIU/mL (0.27-4.20) H 08/03/25 16:20 Urine Color Yellow (Yellow) 08/03/25 17:35 Urine Appearance Clear (CLEAR) 08/03/25 17:35 Urine pH 5.5 (5-7) 08/03/25 17:35 Ur Specific [place] 1.015 (1.005-1.030) 08/03/25 17:35 Urine Protein 3+ (Negative) A 08/03/25 17:35 Urine Glucose (UA) 1+ (Normal) H 08/03/25 17:35 Urine Ketones Negative (Negative) 08/03/25 17:35 Urine Blood 1+ (Negative) A 08/03/25 17:35 Urine Nitrate Negative (Negative) 08/03/25 17:35 Urine Bilirubin Negative (Negative) 08/03/25 17:35 Urine Urobilinogen 0.2 mg/dL (Negative) 08/03/25 17:35 Ur Leukocyte Esterase Negative (Negative) 08/03/25 17:35 Urine RBC 3-5 /hpf (0-2) 08/03/25 17:35 Urine WBC 0-5 /hpf (0-5) 08/03/25 17:35 Ur Squamous Epith Cells 0-5 /hpf (0-5) 08/03/25 17:35 Amorphous Sediment Not Reportable 08/03/25 17:35 Urine Bacteria None seen /hpf (NONE) 08/03/25 17:35 Hyaline Casts 5.77 /lpf 08/03/25 17:35 Random Vancomycin 12.1 ug/mL (20.0-40.0) L 08/06/25 04:32 Blood Type O Positive 08/03/25 17:06 Rho(D) Type Rh positive 08/03/25 17:06 Antibody Screen Positive 08/03/25 17:06 Antibody Identification Anti-Jka 08/03/25 17:06 Antigen Identification Jka Antigen - NEGATIVE 08/03/25 17:06 Crossmatch See Detail 08/03/25 17:06 Vitals Last Vital Signs Temp 98.3 F 08/07/25 07:36 Pulse 94 08/07/25 07:36 Resp 18 08/07/25 07:36 BP 101/37 08/07/25 07:36 Pulse Ox 86 L 08/07/25 08:53 O2 Del Method Nasal Cannula 08/07/25 07:36 O2 Flow Rate 3 08/07/25 08:53 Discharge Plan Discharge Patient Disposition: Home Health Service Condition: Stable Prescriptions: New pantoprazole [Protonix] 40 mg tablet,delayed release (DR/EC) 40 mg PO BID 30 Days Qty: 60 0RF sucralfate [Carafate] 1 gram tablet 1 g PO BID 28 Days Qty: 56 0RF Continued hydrocodone-acetaminophen 5-325 mg tablet 1 tab PO Q8H PRN (Reason: pain) 4 Days Qty: 12 0RF levothyroxine 112 mcg tablet 112 mcg PO DAILY Adempas 2.5 mg Tablet 2.5 mg PO TID atorvastatin 40 mg tablet 40 mg PO DAILY acetaminophen [Tylenol Extra Strength] 500 mg Tablet 1,000 mg PO Q6H PRN (Reason: Fever Or Pain) Opsumit 10 mg tablet 10 mg PO DAILY Held bumetanide 1 mg tablet 2 mg PO DAILY Hold Instructions: Resume on 08/10/25. resume bumex 1mg on sunday Eliquis 5 mg tablet 5 mg PO BID Hold Instructions: Resume on 08/14/25. Discontinued losartan 25 mg tablet 25 mg PO DAILY metoprolol succinate 25 mg tablet extended release 24 hr 25 mg PO DAILY cephalexin 500 mg capsule 500 mg PO Q6H 7 Days Qty: 28 0RF No Action (DME) Diabetic shoes See Rx Instructions .ROUTE .MEDSUPPLY Qty: 1 0RF Rx Instructions: With 3 pairs of inserts (DME) Cam boot to left See Rx Instructions .Route .MEDSUPPLY Qty: 1 0RF Rx Instructions: As directed (DME) CAM walker See Rx Instructions .Route .MEDSUPPLY Qty: 1 0RF Rx Instructions: As directed levofloxacin 500 mg tablet 500 mg PO DAILY Qty: 7 0RF Discharge Order = DC NOW: Discharge Order (Routine); Ordered 08/07/25 Ordered By: Cruz Fang Other Ambulatory Orders: DME: Oxygen (Order) Location: None Selected Ordered By: Cruz Fang DME: Walker (Order) Location: None Selected Ordered By: Cruz Fang Referrals: [facility] [Outside] Wyatt Andrade MD [Physician, General Surgery] - 08/11/25 3:55 pm Referral Note: Sylvain Mendoza DPM [Physician, Podiatry] - 2 weeks Referral Note: We have notified your physician's clinic of the need for a follow-up appointment to be scheduled. If you have not heard from them within the next 2 business days, please call them directly. Patrick Nick MD [Primary Care Provider, Family Practice] - 08/11/25 8:00 pm Discharge Diet: Cardiac Discharge Activity: Resume usual activity Patient Instructions: Sucralfate (By mouth), Doxycycline (By mouth), Pantoprazole (By mouth), Gastrointestinal Bleeding (DC), GI Post Discharge Instructions w/ Anesthesia, Opioid Safety, Patient Portal & El Instructions Activity Restrictions/Additional Instructions: - Continue to follow up with wound care - Follow-up with Dr. Mendoza for suture removal - Continue wound care - Continue doxycycline - Continue to hold Eliquis until next Sunday, if hemoglobin is reasonable then can resume -Hemoglobin discharge 8.2 - If you have sudden onset shortness of breath, or chest pain or strokelike symptoms call 911 - Recheck your hemoglobin next week through primary care - Please recheck your creatinine next week through primary care - Creatinine discharge 3.6 - Discharged on 3 L nasal cannula Discharge Attestations Time Spent in Discharge Care*: greater than 30 min Quality Metrics Clinical Quality Measures [ No reported AMI, CVA or VTE this stay] Coding Level of Care Code 24121 Total time (in minutes) for Discharge: 45 Diagnoses Diabetic peripheral neuropathy associated with type 2 diabetes mellitus E11.42 Chronic ulcer of left foot with necrosis of muscle L97.523 Laceration of right foot, initial encounter S91.311A Encounter type: initial encounter
== END 2025-08-07 14:29 | disposition home health service (06) | DRG 622 ==
LOC: ER 18:29 → MEDSURG 18:49
PROVIDERS: Surgery; Admitting Provider Family Medicine; Emergency Provider Student in an Organized Health Care Education/Training Program; PCP Family Medicine; Visit Provider Family Medicine
PROC: 0DJ08ZZ Inspection of Upper Intestinal Tract, Via Natural or Artificial Opening Endoscopic (ICD-10-PCS; principal; 2025-08-05 07:00)
PROC: 0DJD8ZZ Inspection of Lower Intestinal Tract, Via Natural or Artificial Opening Endoscopic (ICD-10-PCS; CPT 45378; 2025-08-05 07:00)
DX: E11.621 Type 2 diabetes mellitus with foot ulcer (principal); I50.33 Acute on chronic diastolic (congestive) heart failure; K29.71 Gastritis, unspecified, with bleeding; J96.01 Acute respiratory failure with hypoxia; I13.0 Hypertensive heart and chronic kidney disease with heart failure and stage 1 through stage 4 chronic kidney disease, or unspecified chronic kidney disease; L97.423 Non-pressure chronic ulcer of left heel and midfoot with necrosis of muscle; L02.612 Cutaneous abscess of left foot; N17.9 Acute kidney failure, unspecified; E11.42 Type 2 diabetes mellitus with diabetic polyneuropathy; E11.22 Type 2 diabetes mellitus with diabetic chronic kidney disease; N18.9 Chronic kidney disease, unspecified; S91.114D Laceration without foreign body of right lesser toe(s) without damage to nail, subsequent encounter; W18.2XXD Fall in (into) shower or empty bathtub, subsequent encounter; I27.20 Pulmonary hypertension, unspecified; D63.1 Anemia in chronic kidney disease; I95.1 Orthostatic hypotension; K63.5 Polyp of colon; F17.200 Nicotine dependence, unspecified, uncomplicated; R79.1 Abnormal coagulation profile; R19.5 Other fecal abnormalities; E03.9 Hypothyroidism, unspecified; Z79.899 Other long term (current) drug therapy; Z79.01 Long term (current) use of anticoagulants; Z86.711 Personal history of pulmonary embolism; Z95.3 Presence of xenogenic heart valve; Z85.828 Personal history of other malignant neoplasm of skin
CPT/HCPCS: 10060; 11042; 12002; 36415; 36416; 36430; 43239; 45380; 45385; 51702; 71045; 73630; 73700; 80053; 80061; 80202; 80503; 81001; 82274; 82728; 82803; 82962; 83036; 83540; 83605; 83735; 83880; 84145; 84443; 85014; 85018; 85025; 85045; 85610; 85651; 85730; 86140; 86850; 86870; 86900; 86902; 86920; 87040; 87070; 87077; 87176; 87186; 87205; 88305; 88342; 90471; 90715; 93005; 93306; 93970; 94664; 94760; 96365; 96372; 96374; 96375; 97162; 97167; 97530; 97760; 99284; 99285; J0690; J0696; J1756; J1815; J2270; J2371; J2405; J2470; J2704; J3373; J3490; J7030; J7050; J9999; L4361; P9016

== ENCOUNTER → 2025-08-10 08:50 | Outpatient (BNVA) | payer MEDICARE, SELFPAY | PROVIDERS: PCP Family Medicine; Visit Provider Thoracic Surgery (Cardiothoracic Vascular Surgery) | DX: E11.52 Type 2 diabetes mellitus with diabetic peripheral angiopathy with gangrene (principal); E11.621 Type 2 diabetes mellitus with foot ulcer; L97.522 Non-pressure chronic ulcer of other part of left foot with fat layer exposed | CPT/HCPCS: 11042 ==

== ENCOUNTER 2025-08-13 08:15 | Outpatient (CLI) | payer MEDICARE, SELFPAY ==
--- NOTE | 2025-08-13 08:00 | NM_ITS ---
WS: [id number] THREE-PHASE BONE SCAN HISTORY: E11.621 - Type 2 diabetes mellitus with foot ulcer COMPARISON: Foot radiograph 08/03/2025, bone scan 05/04/2025 Patient is is injected with 26.5 mCi Tc99m HDP intravenously. Immediate angiographic phase imaging is performed over the area of concern. Static blood pool imaging also performed. Two-hour whole-body scintigrams performed in anterior and posterior projections. Additional large field of view imaging sub mitted as necessary. Three-phase bone scan imaging centered over the feet. There is a new area of uptake involving the expected location of the fifth metatarsal head or proximal fifth phalanx. This is positive on all 3 phases. On the prior bone scan from 05/04/2025 this area is positive only on the delayed imaging. No additional abnormal uptake involving the feet. Normal soft tissue uptake. Normal rib and spine uptake. NM/NM bone 3 phase [id number] IMPRESSION: Findings consistent with cellulitis and acute osteomyelitis involving the fifth metatarsal head versus proximal fifth phalanx of the LEFT foot. New since 05/04.
== END 2025-08-13 08:16 | disposition home or self-care (01) ==
PROVIDERS: PCP Family Medicine; Visit Provider Thoracic Surgery (Cardiothoracic Vascular Surgery)
DX: E11.621 Type 2 diabetes mellitus with foot ulcer (principal); L97.523 Non-pressure chronic ulcer of other part of left foot with necrosis of muscle
CPT/HCPCS: 78315; A9561

== ENCOUNTER → 2025-08-17 08:40 | Outpatient (BNVA) | payer MEDICARE, SELFPAY | PROVIDERS: PCP Family Medicine; Visit Provider Thoracic Surgery (Cardiothoracic Vascular Surgery) | DX: E11.52 Type 2 diabetes mellitus with diabetic peripheral angiopathy with gangrene (principal); E11.621 Type 2 diabetes mellitus with foot ulcer; L97.521 Non-pressure chronic ulcer of other part of left foot limited to breakdown of skin; L97.511 Non-pressure chronic ulcer of other part of right foot limited to breakdown of skin | CPT/HCPCS: 97597 ==

== ENCOUNTER → 2025-08-19 08:38 | Day surgery (SDC) | payer MEDICARE, SELFPAY ==
--- NOTE | 2025-08-19 08:41 | XR_ITS ---
WS: [id number] XR chest 1V portable [id number] REASON FOR EXAM: post picc insertion FINDINGS: Right arm PICC line placement. Catheter tip is in the mid to distal SVC. Over the phone (9:25 a.m.) with the clinical laboratory technologist it was was recommended that if there is remaining catheter length, advancement of [address] it in the distal SVC. There is noted to be cardiomegaly and central pulmonary venous congestion with prominent reticular interstitial lung opacities. Endovascular stent aortic valve is present. The chest is unchanged compared to 08/05/2025 with the exception of the PICC line. XR/XR chest 1V portable [id number] IMPRESSION: PICC line placement and recommendation of advancement as above.
[2025-08-19 08:45] VITALS: BP 126/74; PULSE 99; RESP 16; TEMP 36.4; O2SAT 94
[2025-08-19] MEDS: cefTRIAXone 1,000 mg SDV 1000 MG IVP (09:45)
--- NOTE | 2025-08-19 10:17 | PICC.NOTE ---
Single lumen PICC placed to right basilic vein. Referred to vascular access nurse for PICC placement due to osteo of left foot and need for IV Rocephin x 6 weeks. Risks and benefits discussed and informed consent obtained from pt. Right arm assessed with right basilic vein measuring 4.1 mm, straight, and apparent best choice for placement. Using sterile technique and MST, right basilic vein accessed x 1 stick. Mid-arm circumference measured 10 cm from right AC 27 cm. Trimmed cath 38 cm with 0 cm external length noted. CXR shows tip in mid to distal SVC. Radiologist recommended advancement of catheter 2 cm, which was completed, putting tip in good position for use per radiologist. Line secured with stat-lock. Insertion site covered with Biopatch and TSM. Report faxed to [facility] and [facility]. Patient and given [facility] mat and written teaching materials on how to flush PICC and give IV Rocephin IVP over 3-5 minutes. Patient given first dose of Rocephin 1 gm IVP. No reaction noted. Patient and verbalized understanding of care of PICC and how to administer medication.
== END ==
LOC: GILAB 08:39
PROVIDERS: PCP Family Medicine; Visit Provider Thoracic Surgery (Cardiothoracic Vascular Surgery)
DX: E11.621 Type 2 diabetes mellitus with foot ulcer (principal); M86.072 Acute hematogenous osteomyelitis, left ankle and foot
CPT/HCPCS: 36573; 71045; 96374; 99214; J0696

== ENCOUNTER 2025-08-24 01:01 | Inpatient (IN) | payer MEDICARE, SELFPAY ==
[2025-08-24] VITALS (18 sets, daily range): BP systolic 101–154; BP diastolic 40–71; PULSE 59–115; RESP 17–29; TEMP 36.6–37.1; O2SAT 88–96; BMI 28.6
--- NOTE | 2025-08-24 01:04 | ECG_ITS ---
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 [email or web address]
--- OUTSIDE RECORDS SUMMARY | 2025-08-24 01:10 | XMS_ITS | Encounter Summary ---
Author Organization [facility] [employer], [facility] Address [address] [place] [address] Phone Care Team Providers Care Spike Maker Name Role Phone Unavailable Primary Care Provider Unavailabl e Encounter Details Date Type Department Care Team ([facility] st Contact Info) Description 12/17/2023 Orders Only [facility] [employer] [address] [address] [place] [address] Stage 3 chronic kidney disease, [...]
--- OUTSIDE RECORDS SUMMARY | 2025-08-24 01:10 | XMS_ITS | Clinical Summary ---
Author Organization [facility] Address [address] [facility] Attn: Epic Prelude ADT MELISA RIVERA [address] Care Team Providers Care Watch Engine Operator Name Role Phone Unavailable Primary Care Provider Unavailabl e Encounters Date Type Department Care Team Description 08/05/2025 External Device Data [facility] ABSTRACTION Provider, Abstract 07/21/2025 External Device Data [facility] ABSTRACTION Provider, [...]
--- OUTSIDE RECORDS SUMMARY | 2025-08-24 01:10 | XMS_ITS | Clinical Summary ---
Author Organization [facility], [facility] Address [address] [facility] [address] [place] [address] Phone Care Team Providers Care Bolt Maker Name Role Phone Unavailable Primary Care [...] patient's age to complete this topic [id number]
--- OUTSIDE RECORDS SUMMARY | 2025-08-24 01:10 | XMS_ITS | Data Portability ---
Author Organization MELISA Kyrie Rios [facility], [facility], [facility] Address [address] [address] Care Team Providers Care Marketing Education Teacher Name Role Phone ANAI VALDIVIA Primary Care Provider Assessment Encounter Date Assessment Date Assessment LastModified by Organization Details LastModified Time 08/11/2025 08/11/2025 Patient here today for a follow-up from the ER. He is a Dr. Valdivia patient. He is doing better since he has gotten home. He is going to follow with Wound Care for the stitches in his foot. Not available 08/11/2025 13:20:05 Plan of Treatment Reminders Order Date Submit Date Provider Last Modified By Organization Details Last Modified Time Details Appointments RECHECK 2024 10:20A Christina Valdivia MD Not available Not available Not available Lab CMP, serum or plasma 2024 025 [facility], [address], [facility], [place], [address], 08/11/2025 15:58:28 CBC 2024 025 [facility], [address] [address], [facility], [place], [address], 08/11/2025 14:28:00 CBC - ok per Treанна/ will fax to Dr. Johny ALY 2024 025 [facility], [address], [address], [place], [address], 07/31/2025 10:43:25 BMP, serum or plasma - ordered by Dr Mcclain/ mikaela fax YF 2024 025 [facility], [address], [address], [place], [address], 07/31/2025 11:19:52 BMP, serum or plasma - ORDERED BY DR MCCLAIN/ MIKAELA FAX RESULTS YF 2024 025 [facility], [address], [address], [place], [address], 07/15/2025 11:49:21 CBC 2024 025 [facility], [address], [address], [place], [address], 07/08/2025 10:33:33 renal function panel, serum 2024 025 [employer] [facility], [address] [place] [address], [address], [place], [address], 07/09/2025 05:15:17 iron + total iron-bind ing capacity (TIBC), serum 2024 025 [employer] [facility], [address] [place] [address] 248, [address], [place], [address], 07/09/2025 05:15:16 ferritin, serum or plasma 2024 025 [employer] [facility], [address] [place] [address], [address], [place], [address], 07/09/2025 05:15:18 hemoglobi n A1C/hemog lobin total, QN, blood 2024 025 [facility], [address], [address], [place], [address], 06/01/2025 11:51:19 thyrotrop in, QN, serum or plasma 2024 025 [facility], [address], [address], [place], [address], 06/01/2025 12:12:18 Referral None recorded. Procedures None recorded. Surgeries None recorded. Imaging None recorded. Medication Orders None recorded. Patient TargetsNo targets recorded. Patient Instructions Encounter Date Encounter Id Patient Instructions Last Modified By Organization Details Last Modified Time 08/11/2025 [id number] hospital discharge follow up* Not available 08/11/2025 13:20:06 Call or return for questions or concerns. Not available 08/11/2025 13:16:55 Reason for Referral None Reported. Results Created Date Observation Date Name Description Value Unit Range Abnormal Flag Note LastModifiedBy Organization Detail LastModifiedTime 06/01/2006/01/2025 HBA1C hemaglobin A1C 6.6 4.2-6. 5 high Not Available [facility] [address], [place], [address], 06/01/2025 11:51:19 06/01/20 25 06/01/2025 TSH TSH 1.70 uIU/m L 0.49-3 .82 Not Available [facility] [address] [facility] 1, [place], [address], 06/01/2025 12:12:18 07/08/20 25 07/08/2025 CBC WBC 8.3 x10 4.5-10 .5 Not Available [facility] [address] [facility] 1, [place], [address], 07/08/2025 10:33:33 07/08/20 25 07/08/2025 CBC RBC 2.64 x10 4.30-5 .90 low Not Available [facility] [address] [facility] 1, [place], [address], 07/08/2025 10:33:33 07/08/20 25 07/08/2025 CBC HGB 7.9 g/dL 13.5-1 8.0 low Not Available [facility] [address] [facility] 1, [place], [address], 07/08/2025 10:33:33 07/08/20 25 07/08/2025 CBC HCT 24.8 % 35.0-6 0.0 low Not Available [facility] [address] [facility] 1, [place], [address], 07/08/2025 10:33:33 07/08/20 25 07/08/2025 CBC MCV 93.8 fL 80.0-9 9.9 Not Available [facility] [address] [facility] 1, [place], [address], 07/08/2025 10:33:33 07/08/20 25 07/08/2025 CBC MCH 30.0 pg 27.0-3 2.0 Not Available [facility] [address] [facility], [place], [address], 07/08/2025 10:33:33 07/08/20 25 07/08/2025 CBC MCHC 31.9 g/dL 32.0-3 6.0 low Not Available [facility] [address] [facility] 1, [place], [address], 07/08/2025 10:33:33 07/08/20 25 07/08/2025 CBC RDW 14.5 % 11.5-1 4.5 Not Available [facility] [address] [facility] 1, [place], [address], 07/08/2025 10:33:33 07/08/20 25 07/08/2025 CBC plt 165.4 x10 150.0- 451.0 Not Available [facility] [address] [facility] 1, [place], [address], 07/08/2025 10:33:33 07/08/20 25 07/08/2025 CBC lymphocytes % 21.5 % 20.0-5 0.0 Not Available [facility] [address] [facility] 1, [place], [address], 07/08/2025 10:33:33 07/08/20 25 07/08/2025 CBC granulcytes % 64.0 % 30.0-7 0.0 Not Available [facility] [address] [facility] 1, [place], [address], 07/08/2025 10:33:33 07/08/20 25 07/08/2025 CBC monocytes % 9.1 % 2.0-16 .0 Not Available [facility] [address] [address], [place], [address], 07/08/2025 10:33:33 07/08/20 25 07/08/2025 CBC granulcytes# 5.3 x10 Not Stephanie ilable [facility] [address] [facility] 1, [place], [address], 07/08/2025 10:33:33 07/08/20 25 07/08/2025 CBC lymphocytes # 1.8 x10 Not Available [facility] [address] [address], [place], [address], 07/08/2025 10:33:33 07/08/20 25 07/08/2025 CBC monocytes # 0.8 x10 Not Avai lable [facility] [address] [facility] 1, [place], [address], 07/08/2025 10:33:33 07/08/20 25 07/09/2025 IRON AND TOTAL IRON DARIAN NG CAPAC ITY iron, total 54 mcg/d L 50-180 normal Not Available [address], [address], 07/09/2025 05:15:15 07/08/20 25 07/09/2025 IRON AND TOTAL IRON DARIAN NG CAPAC ITY iron binding capacity 240 mcg/d L_(ca lc) 250-42 5 low Not Available [address], [address], 07/09/2025 05:15:15 07/08/20 25 07/09/2025 IRON AND TOTAL IRON DARIAN NG CAPAC ITY % saturation 23 %_(ca lc) 20-48 normal Not Available [address], [address], 07/09/2025 05:15:15 07/08/20 25 07/09/2025 RENAL FUNCT ION PANEL glucose 155 mg/dL 65-99 high Fasti ng refer ence inter joel For someo ne witho ut known diabe jimmie, a gluco se value >125 mg/dL indic ates that they may have diabe jimmie and this shoul d be confi rmed with a follo w-up test. Not Available [address], [address], 07/09/2025 05:15:17 07/08/2007/09/2025 RENAL FUNCT ION PANEL urea nitrogen (BUN) 61 mg/dL 7-25 high Not Available [employer] [address], [address], 07/09/2025 05:15:17 07/08/20 25 07/09/2025 RENAL FUNCT ION PANEL creatinine 3.42 mg/dL 0.70-1 .28 high Not Available [employer] [address], [address], 07/09/2025 05:15:17 07/08/20 25 07/09/2025 RENAL FUNCT ION PANEL eGFR 18 mL/mi n/1.7 3m2 > or = 60 low Not Available [address], [address], 07/09/2025 05:15:17 07/08/20 25 07/09/2025 RENAL FUNCT ION PANEL BUN/creatini ne ratio 18 (calc ) 6-22 normal Not Available [address], [address], 07/09/2025 05:15:17 07/08/20 25 07/09/2025 RENAL FUNCT ION PANEL sodium 139 mmol/ L 135-14 6 normal Not Available [address], [address], 07/09/2025 05:15:17 07/08/20 25 07/09/2025 RENAL FUNCT ION PANEL potassium 4.4 mmol/ L 3.5-5. 3 normal Not Available [address], [address], 07/09/2025 05:15:17 07/08/20 25 07/09/2025 RENAL FUNCT ION PANEL chloride 109 mmol/ L 98-110 normal Not Available [address], [address], 07/09/2025 05:15:17 07/08/20 25 07/09/2025 RENAL FUNCT ION PANEL carbon dioxide 20 mmol/ L 20-32 normal Not Available [address], [address], 07/09/2025 05:15:17 07/08/20 25 07/09/2025 RENAL FUNCT ION PANEL calcium 8.4 mg/dL 8.6-10 .3 low Not Available [address], [address], 07/09/2025 05:15:17 07/08/20 25 07/09/2025 RENAL FUNCT ION PANEL phosphate ( phosphorus) 5.9 mg/dL 2.1-4. 3 high Not Available [address], [address], 07/09/2025 05:15:17 07/08/20 25 07/09/2025 RENAL FUNCT ION PANEL albumin 3.3 g/dL 3.6-5. 1 low Not Available [address], [address], 07/09/2025 05:15:17 07/08/20 25 07/09/2025 SHARRI TIN ferritin 71 NG/mL 24-380 normal Not Available [address], [address], 07/09/2025 05:15:18 07/15/20 25 07/15/2025 BMP (MALE ) glucose 176.0 mg/dL 60.0-9 9.0 high Not Available [facility] [address], [address], 07/15/2025 11:49:21 07/15/20 25 07/15/2025 BMP (MALE ) BUN (blood urea nitrogen) 57.0 mg/dL 10.0-2 6.0 high Not Available [facility] [address] [address], [place], [address], 07/15/2025 11:49:21 07/15/20 25 07/15/2025 BMP (MALE ) creatinine (serum) 3.1 mg/dL 0.4-1. 5 high Not Available [facility] [address] [address], [place], [address], 07/15/2025 11:49:21 07/15/20 25 07/15/2025 BMP (MALE ) BUN/creatini ne ratio 18.39 ratio Not Available [facility] [address] [address], [place], [address], 07/15/2025 11:49:21 07/15/20 25 07/15/2025 BMP (MALE ) calcium 9.0 mg/dL 8.4-10 .5 Not Available [facility] [address] [facility] 1, [place], [address], 07/15/2025 11:49:21 07/15/20 25 07/15/2025 BMP (MALE ) sodium 141.0 mmol/ L 136.0- 145.0 Not Available [facility] [address] [facility], [place], [address], 07/15/2025 11:49:21 07/15/20 25 07/15/2025 BMP (MALE ) potassium 4.7 mmol/ L 3.5-5. 1 Not Available [facility] [address] [facility], [place], [address], 07/15/2025 11:49:21 07/15/20 25 07/15/2025 BMP (MALE ) chloride 112.0 mmol/ L 98.0-1 10.0 abnormal Not Available [facility] [address] [facility], [place], [address], 07/15/2025 11:49:21 07/15/2007/15/2025 BMP (MALE ) C02 19.0 mmol/ L 22.0-3 1.0 low Not Available [facility] [address] [facility], [place], [address], 07/15/2025 11:49:21 07/31/2007/31/2025 CBC WBC 7.7 x10 4.5-10 .5 Not Available [facility] [address] [facility], [place], [address], 07/31/2025 10:43:25 07/31/2007/31/2025 CBC RBC 2.53 x10 4.30-5 .90 low Not Available [facility] [address] [facility] 1, [place], [address], 07/31/2025 10:43:25 07/31/2007/31/2025 CBC HGB 7.5 g/dL 13.5-1 8.0 low Not Available [facility] [address] [facility] 1, [place], [address], 07/31/2025 10:43:25 07/31/2007/31/2025 CBC HCT 24.2 % 35.0-6 0.0 low Not Available [facility] [address] [facility] 1, [place], [address], 07/31/2025 10:43:25 07/31/2007/31/2025 CBC MCV 95.5 fL 80.0-9 9.9 Not Available [facility] [address] [facility], [place], [address], 07/31/2025 10:43:25 07/31/2007/31/2025 CBC MCH 29.4 pg 27.0-3 2.0 Not Available [facility] [address] [facility], [place], [address], 07/31/2025 10:43:25 07/31/2007/31/2025 CBC MCHC 30.8 g/dL 32.0-3 6.0 low Not Available [facility] [address] [facility], [place], [address], 07/31/2025 10:43:25 07/31/2007/31/2025 CBC RDW 15.0 % 11.5-1 4.5 high Not Available [facility] [address] [facility], [place], [address], 07/31/2025 10:43:25 07/31/20 25 07/31/2025 CBC plt 162.3 x10 150.0- 451.0 Not Available [facility] [address] [facility], [place], [address], 07/31/2025 10:43:25 07/31/20 25 07/31/2025 CBC lymphocytes % 22.8 % 20.0-5 0.0 Not Available [facility] [address] [facility] 1, [place], [address], 07/31/2025 10:43:25 07/31/20 25 07/31/2025 CBC granulcytes % 64.1 % 30.0-7 0.0 Not Available [facility] [address] [facility] 1, [place], [address], 07/31/2025 10:43:25 07/31/20 25 07/31/2025 CBC monocytes % 9.2 % 2.0-16 .0 Not Available [facility] [address] [address], [place], [address], 07/31/2025 10:43:25 07/31/20 25 07/31/2025 CBC granulcytes# 4.9 x10 Not Stephanie ilable [facility] [address] [facility] 1, [place], [address], 07/31/2025 10:43:25 07/31/20 25 07/31/2025 CBC lymphocytes # 1.8 x10 Not Available [facility] [address] [facility] [place], [address], 07/31/2025 10:43:25 07/31/20 25 07/31/2025 CBC monocytes # 0.7 x10 Not Avai lable [facility] [address] [address], [place], [address], 07/31/2025 10:43:25 07/31/20 25 07/31/2025 BMP (MALE ) glucose 165.0 mg/dL 60.0-9 9.0 high Not Available [facility] [address] [facility] 1, [place], [address], 07/31/2025 11:19:52 07/31/20 25 07/31/2025 BMP (MALE ) BUN (blood urea nitrogen) 71.0 mg/dL 10.0-2 6.0 high Not Available [facility] [address] [facility] 1, [place], [address], 07/31/2025 11:19:52 07/31/20 25 07/31/2025 BMP (MALE ) creatinine (serum) 3.5 mg/dL 0.4-1. 5 high Not Available [facility] [address] [place] [facility] [place], [address], 07/31/2025 11:19:52 07/31/20 25 07/31/2025 BMP (MALE ) BUN/creatini ne ratio 20.29 ratio Not Available [facility] [address] [place] [address] [facility] 1, [place], [address], 07/31/2025 11:19:52 07/31/2007/31/2025 BMP (MALE ) calcium 8.8 mg/dL 8.4-10 .5 Not Available [facility] [address] [place] [facility], [place], [address], 07/31/2025 11:19:52 07/31/20 25 07/31/2025 BMP (MALE ) sodium 141.0 mmol/ L 136.0- 145.0 Not Available [facility] [address] [facility] 1, [place], [address], 07/31/2025 11:19:52 07/31/20 25 07/31/2025 BMP (MALE ) potassium 4.6 mmol/ L 3.5-5. 1 Not Available [facility] [address] [facility] 1, [place], [address], 07/31/2025 11:19:52 07/31/20 25 07/31/2025 BMP (MALE ) chloride 112.0 mmol/ L 98.0-1 10.0 abnormal Not Available [facility] [address] [facility], [place], [address], 07/31/2025 11:19:52 07/31/20 25 07/31/2025 BMP (MALE ) C02 17.0 mmol/ L 22.0-3 1.0 low Not Available [facility] [address] [facility], [place], [address], 07/31/2025 11:19:52 08/11/20 25 08/11/2025 CBC WBC 10.2 x10 4.5-10 .5 Not Available [facility] [address] [facility], [place], [address], 08/11/2025 14:28:00 08/11/20 25 08/11/2025 CBC RBC 3.26 x10 4.30-5 .90 low Not Available [facility] [address] [facility], [place], [address], 08/11/2025 14:28:00 08/11/20 25 08/11/2025 CBC HGB 9.7 g/dL 13.5-1 8.0 low Not Available [facility] [address] [facility], [place], [address], 08/11/2025 14:28:00 08/11/20 25 08/11/2025 CBC HCT 30.8 % 35.0-6 0.0 low Not Available [facility] [address] [facility], [place], [address], 08/11/2025 14:28:00 08/11/20 25 08/11/2025 CBC MCV 94.4 fL 80.0-9 9.9 Not Available [facility] [address] [facility] 1, [place], [address], 08/11/2025 14:28:00 08/11/20 25 08/11/2025 CBC MCH 29.9 pg 27.0-3 2.0 Not Available [facility] [address] [facility], [place], [address], 08/11/2025 14:28:00 08/11/20 25 08/11/2025 CBC MCHC 31.6 g/dL 32.0-3 6.0 low Not Available [facility] [address] [facility], [place], [address], 08/11/2025 14:28:00 08/11/20 25 08/11/2025 CBC RDW 16.0 % 11.5-1 4.5 high Not Available [facility] [address] [facility], [place], [address], 08/11/2025 14:28:00 08/11/20 25 08/11/2025 CBC plt 198.7 x10 150.0- 451.0 Not Available [facility] [address] [facility], [place], [address], 08/11/2025 14:28:00 08/11/20 25 08/11/2025 CBC lymphocytes % 18.7 % 20.0-5 0.0 low Not Available [facility] [address] [facility], [place], [address], 08/11/2025 14:28:00 08/11/20 25 08/11/2025 CBC granulcytes % 66.6 % 30.0-7 0.0 Not Available [facility] [address] [facility], [place], [address], 08/11/2025 14:28:00 08/11/20 25 08/11/2025 CBC monocytes % 11.8 % 2.0-16 .0 Not Available [facility] [address] [facility], [place], [address], 08/11/2025 14:28:00 08/11/20 25 08/11/2025 CBC granulcytes# 6.8 x10 Not Stephanie ilable [facility] [address] [facility], [place], [address], 08/11/2025 14:28:00 08/11/20 25 08/11/2025 CBC lymphocytes # 1.9 x10 Not Available [facility] [address] [facility], [place], [address], 08/11/2025 14:28:00 08/11/20 25 08/11/2025 CBC monocytes # 1.2 x10 Not Avai lable [facility] [address] [place] [address] [facility] 1, [place], [address], 08/11/2025 14:28:00 08/11/20 25 08/11/2025 CMP (MALE ) glucose 132.0 mg/dL 60.0-9 9.0 high Not Available [facility] [address] [facility], [place], [address], 08/11/2025 15:58:28 08/11/20 25 08/11/2025 CMP (MALE ) BUN (blood urea nitrogen) 71.0 mg/dL 10.0-2 6.0 high Not Available [facility] [address] [facility], [place], [address], 08/11/2025 15:58:28 08/11/20 25 08/11/2025 CMP (MALE ) creatinine (serum) 3.8 mg/dL 0.4-1. 5 high Not Available [facility] [address] [facility] 1, [place], [address], 08/11/2025 15:58:28 08/11/20 25 08/11/2025 CMP (MALE ) BUN/creatini ne ratio 18.68 ratio Not Available [facility] [address] [facility] [place], [place], [address], 08/11/2025 15:58:28 08/11/20 25 08/11/2025 CMP (MALE ) eGFR calculated 16.8 Not Available [facility] [address] [facility] [place], [place], [address], 08/11/2025 15:58:28 08/11/20 25 08/11/2025 CMP (MALE ) total protein 7.0 g/dL 6.0-8. 5 Not Available [facility] [address] [facility], [place], [address], 08/11/2025 15:58:28 08/11/20 25 08/11/2025 CMP (MALE ) total bilirubin 0.7 mg/dL 0.2-1. 3 Not Available [facility] [address] [facility], [place], [address], 08/11/2025 15:58:28 08/11/20 25 08/11/2025 CMP (MALE ) albumin 3.5 g/dL 3.5-5. 5 Not Available [facility] [address] [facility] [place], [place], [address], 08/11/2025 15:58:28 08/11/20 25 08/11/2025 CMP (MALE ) globulin 3.5 calc Not Available [facility] [address] [place] [address] [facility], [place], [address], 08/11/2025 15:58:28 08/11/20 25 08/11/2025 CMP (MALE ) AST (SGOT) 37.0 U/L 0.0-46 .0 Not Available [facility] [address] [facility] 1, [place], [address], 08/11/2025 15:58:28 08/11/20 25 08/11/2025 CMP (MALE ) altv (SGPT) 14.0 U/L 13.0-6 9.0 normal Not Available [facility] [address] [facility] 1, [place], [address], 08/11/2025 15:58:28 08/11/20 25 08/11/2025 CMP (MALE ) A/G ratio 1.0 ratio Not Available [facility] [address] [facility] 1, [place], [address], 08/11/2025 15:58:28 08/11/20 25 08/11/2025 CMP (MALE ) ALP phos 208.0 U/L 30.0-1 40.0 abnormal Not Available [facility] [address] [facility] 1, [place], [address], 08/11/2025 15:58:28 08/11/20 25 08/11/2025 CMP (MALE ) calcium 9.3 mg/dL 8.4-10 .5 Not Available [facility] [address] [facility] 1, [place], [address], 08/11/2025 15:58:28 08/11/20 25 08/11/2025 CMP (MALE ) sodium 137.0 mmol/ L 136.0- 145.0 Not Available [facility] [address] [facility] 1, [place], [address], 08/11/2025 15:58:28 08/11/20 25 08/11/2025 CMP (MALE ) potassium 4.4 mmol/ L 3.5-5. 1 Not Available [facility] [address] [facility] 1, [place], [address], 08/11/2025 15:58:28 08/11/20 25 08/11/2025 CMP (MALE ) chloride 106.0 mmol/ L 98.0-1 10.0 normal Not Available [facility] [address] [facility] 1, [place], [address], 08/11/2025 15:58:28 08/11/20 25 08/11/2025 CMP (MALE ) C02 20.0 mmol/ L 22.0-3 1.0 low Not Available [facility] [address] [facility] 1, [place], [address], 08/11/2025 15:58:28 08/11/20 25 08/11/2025 CMP (MALE ) anion gap 11.0 calc Not Available [facility] [address] [facility] 1, [place], [address], 08/11/2025 15:58:28 08/11/20 25 08/11/2025 CMP (MALE ) osmolality 304.3 calc Not Available [facility] [address] [facility] [address], [place], [address], 08/11/2025 15:58:28 08/11/20 25 08/11/2025 hospi alley disch arge follo w up* Records Reviewed Yes Not Available [facility] ( [facility] [address] [place], [address], 08/11/2025 13:09:32 08/11/20 25 08/11/2025 hospi alley disch arge follo w up* Medications Reconciles Yes Not Available [facility] ([facility] [address] [place], [address], 08/11/2025 13:09:32 Result Notes None recorded. Problems Name Problem SNOMED Code Status Onset Date Resolution Date Notes Provider Name and Address Organization Details Recorded Time Anticorajanu minet effect [id number] Aaron STODDARD, [address], [address] [place] [address] 5, [facility] 5 13:04:03 Chronic ulcer of left foot Aaron STODDARD, [address], [address] [place] [address] 5, [facility] 13:04:34 Tailor's bunion of left foot [id number] Aaron STODDARD, [address], [address] [place] [address] 5, [facility] 13:04:03 Tobacco user [id number] Aaron STODDARD, [address], [address], [facility] 13:04:03 Contusion of left shoulder [id number] Aaron STODDARD, [address], [address], [facility] 13:04:03 History of aortic valve replaceme nt [id number] Aaron STODDARD, [address], [address], [facility] 5 13:04:03 Celluliti s [id number] Aaron STODDARD, [address], [address], [facility] 5 13:04:03 Lumbar radiculop athy [id number] Aaron OLIVARESTES, [address], [address], [facility] 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 5 13:04:03 History of pulmonary embolus 810278346 Active SHILO STODDARD, [address], [address], [facility] 13:10:22 Abdominal pain [id number] Aaron STODDARD, [address], [address], [facility] 5 13:04:03 Acute-on- chronic renal failure 833556017 Active SHILO STODDARD, [address], [address], [facility] 13:04:03 Thoracic back pain 047610857 Active SHILO STODDARD, [address], [address], [facility] 5 13:04:03 Orthostat ic hypotensi on 01699695 Active SHILO STODDARD, [address], [address], [facility] 5 13:04:03 Chest pain [id number] Aaron STODDARD, [address], [address], [facility] 5 13:04:03 Low back strain [id number] Aaron STODDARD, [address], [address], [facility] 13:04:03 Patient encounter status [id number] Aaron STODDARD, [address], [address] [place] [address] 5, [facility] 13:04:03 Internati onal normalize d ratio above reference range [id number] Aaron STODDARD, [address], [address], [facility] 13:04:03 Dehydrati on [id number] Aaron STODDARD, [address], [address], [facility] 13:04:03 Blood in urine [id number] Aaron STODDARD, [address], [address], [facility] 13:04:03 Diabetic foot ulcer [id number] Aaron STODDARD, [address], [address], [facility] 13:04:03 Pericardi al effusion 724329239 Active SHILO STODDARD, [address], [address], [facility] 13:04:03 Acquired keratoder ma [id number] Aaron STODDARD, [address], [address] [place] [address] 5, [facility] 09/23/202 5 13:04:03 Strain of muscle of chest wall [id number] [facility] SHILO STODDARD, [address], [address] [place] [address] 5, [facility] 5 13:04:03 History of malignant neoplasm of skin excluding melanoma [id number] [facility] SHILO STODDARD, [address], [address] [place] [address] 5, [facility] 5 13:04:03 Acute hyponatre nithin [id number] [facility] SHILO STODDARD, [address], [address] [place] [address] 5, [facility] 5 13:04:03 Foot pain [id number] [facility] SHILO STODDARD, [address], [address] [place] [address], [facility] 5 13:04:03 Acute exacerbat ion of chronic congestiv e heart failure [id number] [facility] SHILO STODDARD, [place] [address] 5, [facility] 5 13:04:03 Prehypert ension [id number] Aaron STODDARD [address], [address] [place] [address] 5, [facility] 5 13:04:03 Osteomyel itis of forefoot [id number] [facility] SHILO STODDARD, [address], [address] [place] [address], [facility] 5 13:04:03 Acute hypoxemic respirato ry failure [id number] [facility] SHILO STODD[address], [address] [place] [address] 5, [facility] 5 13:04:03 Pulmonary hypertens ion 30564039 Active SHILO STODDARD, [address], [address] [place] [address] 5, [facility] 5 13:04:03 COVID-19 889883019 Active SHILO STODDARD, [address], [address] [place] [address] 5, [facility] 5 13:10:22 Periphera l arterial disease 056404486 Active SHILO STODDARD, [address], [address] [place] [address] 5, [facility] 5 13:04:03 Ulcer of left foot due to diabetes mellitus [id number] [facility] SHILO STODDARD, [address], [address] [place] [address] 5, [facility] 5 13:04:03 Abscess of left foot 566444492389 39400 Active SHILO STODDARD, [address], [address] [place] [address] 5, [facility] 5 13:04:34 Laceratio n of right foot 261410867293 72761 Aaron STODDARD, [address], [address] [place] [address] 5, [facility] 5 13:04:34 Foot ulcer due to type 2 diabetes mellitus 949093705509 0 Active SHILO STODDARD, [address], [address] [place] [address] 5, [facility] 5 13:04:34 Fall Active SHILO STODDARD, [facility], [address] [place] [address] 5, [facility] 5 13:04:34 Laceratio n of toe [id number] Aaron STODDARD, [address], [address] [place] [address] 5, [facility] 5 13:04:34 Pain in left foot [id number] 107 Aaron STODDARD, [address], [address] [place] [address] 5, [facility] 5 13:04:34 Infection of foot due to diabetes mellitus [id number] Aaron STODDARD, [address], [address] [place] [address] 5, [facility] 5 13:04:34 Low blood pressure [id number] Aaron STODDARD, [address], [address] [place] [address] 5, [facility] 5 13:04:34 Acute respirato ry failure [id number] Aaron STODDARD, [address], [address] [place] [address] 5, [facility] 5 13:04:34 Long-term current use of anticoagu lant [id number] Aaron STODDARD, [address], [address], [facility] 5 13:04:34 Gastroint estinal hemorrhag e [id number] Aaron STODDARD, [address], [address], [facility] 5 13:04:34 Edema of left lower limb 509593380 Active SHILO ARLYN, [address], [address] [place] [address] 5, [facility] 5 13:04:34 Chronic obstructi ve pulmonary disease 96756401 Active [address], [address] [place] [address] 5, [facility] 5 14:44:25 Type 2 diabetes mellitus without complicat ion 976126898 Active 2022 Insulin Dependent Diabetes Mellitus [place] [address], [facility] 5 14:44:25 Diabetes mellitus 57663760 Active [address], [address] [place] [address], [facility] 5 14:44:25 Dyspnea 167831490 Active [address], [address] [place] [address], [facility] 14:44:25 Hyperchol esterolem ia 17971926 Active [address], [address] [place] [address], [facility] 5 14:44:25 Hypothyro idism 31442131 Active 2022 [place] [address] 5, [facility] 5 14:44:25 Anemia 654935259 Active 2023 SHILO STODDARD, [address], [address], [facility] 5 13:10:22 Intermitt ent vomiting 845366593 Active [address], [address], [facility] 14:44:25 Chronic atrial fibrillat ion 271140431 Active [address], [address], [facility] 14:44:25 Chronic pulmonary thromboem bolism 788599310 Active [address], [address], [facility] 14:44:25 Congestiv e heart failure 56659591 Active 2024 SHILO STODDARD, [address], [address], [facility] 13:10:22 Chronic kidney disease 964531120 Active [address], [address], [facility] 14:44:25 Pain of left shoulder joint 053556385754 82846 Active 2024 THOMAS Lopez [facility] 10:41:05 Problem Notes None recorded. Procedures Surgical History Date Name Laterality Status Provider Name and Address Organization Details Recorded Time 2024 colonoscopy completed ALBERT NESS [facility] 5 16:37:30 2024 esophagogastroduodenoscopy completed ISELAAUTUMN NICHOLAS [facility] 5 16:41:26 2024 plain X-ray of chest completed [facility] 5 10:22:57 2024 plain X-ray of left foot completed [facility] 5 10:26:[address] of left foot completed [facility] 5 10:29:37 2024 Joint Inj Kenalog- Shoulder, Hip, Knee completed Anai Valdivia MD [address] [place], [address], [facility] 5 13:50:21 2022 repair of aortic valve completed [facility] 3 11:57:41 complete repair of r otator cuff completed [facility] 5 12:00:19 cataract surgery completed [facility] 5 12:00:39 Imaging Results None recorded. Procedure Notes None recorded. Medical Equipment None Reported. Allergies Allergen ID Allergen Name Allergen Category Reaction Reaction Severity Criticality Documentation Date Start Date Code Code System Note Provider Name and Address Organization Details Recorded Time 76433 No known allergy (situatio n) Not available Not available Not available Not available 08/11/2025 [id number] [id number] ASHISH GARCIA [address] [place], [address], [facility] 5 13:03:47 No known drug allergies Medications Name Sig Start Date Stop Date Status Note LastModified by Organization Details LastModified Time atorvasta tin 40 mg tablet 40 mg by oral route. 2024 active Not Available Not Available Not Avai lable Novolin 70/30 U-100 Insulin 100 unit/mL subcutane ous suspensio n inject 55 units SUBCUTAN EOUSLY EVERY MORNING and 45 units in THE evening active Not Available Not Available No t Available prednison e 10 mg tablet TAKE 4 TABLETS BY MOUTH ONCE DAILY FOR 3 DAYS THEN 3 ONCE DAILY FOR 3 DAYS THEN 2 ONCE DAILY FOR 3 DAYS THEN 1 ONCE DAILY FOR 3 DAYS 04/24 completed Not Available Not Available Not Available doxycycli ne hyclate 100 mg capsule TAKE 1 CAPSULE BY MOUTH TWICE DAILY FOR 7 DAYS 02/24 completed Not Available Not Available Not Available bumetanid e 2 mg tablet TAKE 1 TABLET BY MOUTH TWICE DAILY 08/11 completed dose decrease d Not Available Not Available Not Available azithromy ana 250 mg tablet TAKE 2 TABLETS BY MOUTH ON DAY 1, AND THEN TAKE 1 TABLET BY MOUTH ONCE A DAY ON DAY 2 THROUGH DAY 5 07/25 completed Not Available Not Available Not Available tizanidin e 4 mg tablet BID prn 10/25 completed Recorded 02/17/20 22 8:03AM by Thomas coleman, Office Visit; Refill Quantity : 0; Not Available Not Available Not Available benzonata te 200 mg capsule TAKE 1 CAPSULE BY MOUTH THREE TIMES DAILY NEEDED FOR COUGH 08/11 completed Not Available Not Available Not Available hydrocodo ne 5 mg-acetam inophen 325 mg tablet 1 tablet by oral route. 2024 active Not Available Not Available Not Avai lable sucralfat e 1 gram tablet 1 g by oral route. 2024 active Not Available Not Available Not Avai lable FreeStyle Lancets 28 gauge 02/08 completed Not Available Not Available Not Available ondansetr on HCl 4 mg tablet TAKE 1 TABLET BY MOUTH EVERY 8 HOURS 08/11 completed Not Available Not Available Not Available prednison e 20 mg tablet TAKE TWO TABLETS BY MOUTH TODAY, THEN TAKE 2 TABLETS DAILY FOR 1 DAY, THEN ONE TABLET DAILY FOR 2 DAYS, THEN 1/2 TABLET DAILY FOR 2 DAYS, THEN STOP 04/24 completed Not Available Not Available Not Available dexametha sone 6 mg tablet 06/09 completed Not Available Not Available Not Available cyanocoba hiwot (vit B-12) 1,000 mcg tablet Take 2 tablets every day by oral route. 2023 active Not Available Not Available Not Avai lable Accu-Chek Softclix Lancets active Not Available Not Available Not Available potassium chloride ER 10 mEq tablet,ex tended release Take 1 tablet by mouth once daily 12/25 completed vo JR/tn Not Available Not Available Not Available sulfameth oxazole 800 mg-trimet hoprim 160 mg tablet TAKE 1 TABLET BY MOUTH TWICE DAILY 08/08 completed Not Available Not Available Not Available aspirin 81 mg tablet,de layed release Take 1 tablet every day by oral route. 12/25 completed Not Available Not Available Not Available doxycycli ne monohydra te 100 mg tablet 100 mg by oral route. 2024 active Not Available Not Available Not Avai lable acetamino phen 500 mg tablet 1000 mg by oral route. 2024 active Not Available Not Available Not Avai lable spironola ctone 25 mg tablet TAKE 1 TABLET BY MOUTH ONCE DAILY 05/28 completed Not Available Not Available Not Available simvastat in 40 mg tablet Take 1 tablet every day by oral route. 01/03 completed pt is to take the Atorvast atin. JR/bh Not Available Not Available Not Available levothyro xine 100 mcg tablet TAKE 1 TABLET BY MOUTH ONCE DAILY 04/24 completed Not Available Not Available Not Available cephalexi n 500 mg capsule TAKE 1 CAPSULE BY MOUTH EVERY 6 HOURS FOR 7 DAYS 08/11 completed Not Available Not Available Not Available pantopraz ole 40 mg tablet,de layed release 40 mg by oral route. 2024 active Not Available Not Available Not Avai lable ferrous sulfate 325 mg (65 mg iron) tablet 325 mg by oral route. 2024 active Not Available Not Available Not Avai lable metformin 1,000 mg tablet TAKE 1 TABLET BY MOUTH TWICE DAILY 04/24 completed Not Available Not Available Not Available warfarin 5 mg tablet TAKE 1 TABLET BY MOUTH ONCE DAILY ON AND TAKE 1.5 TABLETS BY MOUTH ON ALL OTHER DAYS 12/25 completed vo JR/tn Not Available Not Available Not Available losartan 25 mg tablet Take 25 mg by oral route. 08/11 completed Low blood pressure Not Available Not Available Not Available bumetanid e 1 mg tablet TAKE 1 TABLET BY MOUTH TWICE DAILY 2024 active Not Available Not Available Not Avai lable mupirocin 2 % topical ointment APPLY OINTMENT TOPICALL Y TO AFFECTED AREA TWICE DAILY 02/08 completed Not Available Not Available Not Available metoprolo l succinate ER 25 mg tablet,ex tended release 24 hr Take 25 mg by oral route. 08/11 completed Low blood pressure Not Available Not Available Not Available levofloxa ana 750 mg tablet TAKE 1 TABLET BY MOUTH ONCE DAILY FOR 7 DAYS 04/24 completed Not Available Not Available Not Available colchicin e 0.6 mg tablet TAKE 1 TABLET BY MOUTH ONCE DAILY 08/11 completed Not Available Not Available Not Available naproxen 500 mg tablet TAKE 1 TABLET BY MOUTH TWICE DAILY NEEDED FOR PAIN 02/24 completed Not Available Not Available Not Available levothyro xine 112 mcg tablet Take 1 tablet by mouth once daily 2024 active vo JR/tn Not Available Not Available Not Avai lable vancomyci n 1 gram/250 mL in 0.9 % sodium chloride intraveno us Inject by intraven ous route. 10/25 completed Not Available Not Available Not Available lancets as directed 08/11 completed e11.8 Not Available Not Available Not Available Aspirin EC QD 07/26 completed Recorded 03/21/20 9:20AM by Albert Ness RN, Office Visit; Refill Quantity : 0; Not Available Not Available Not Available bumetanid e 07/26 completed Unknown strength .; 0; Recorded 01/19/20 8:10AM by Thomas Peralta nder, Office Visit; Not Available Not Available Not Available dicyclomi ne qid prn abd pain 07/26 completed 0; Recorded 01/19/20 8:10AM by Thomas coleman, Office Visit; Not Available Not Available Not Available albuterol sulfate 07/25 completed Qty: 8; 0; Recorded 01/19/20 8:10AM by Thomas coleman, Office Visit; Not Available Not Available Not Available metformin BID 12/25 completed Recorded 10/19/20 9:49AM by Anai Valdivia MD, Office Visit; Refill Quantity : 200; Tablet; Not Available Not Available Not Available Potassium Chloride ER QD 07/26 completed Reed; 0; Recorded 01/19/20 8:10AM by Thomas coleman, Office Visit; Not Available Not Available Not Available Pen Needle BID 08/11 completed Needs generic needle/ syringe combo with at least 100 unit capacity . Thanks Not Available Not Available Not Available Humulin 70-30 BID 10/25 completed Syringes necessar y for BID dosing Give 65 in am prior to breakfas t and 55 in pm prior to dinner Will be increasi ng insulin slowly. [employer] will be 77 in am and 67 in pm.; Recorded 08/15/20 8:05AM by Albert Ness RN, Office Visit; Refill Quantity : 2; Vial; Not Available Not Available Not Available ProAir HFA 90 mcg/actua tion aerosol inhaler every four hours, as needed 2021 active Not Available Not Available Not Avai lable Eliquis 5 mg tablet Take 1 tablet by mouth twice daily 2024 active vo JR/tn Not Available Not Available Not Avai lable Adempas 2 mg tablet Take 1 tablet 3 times a day by oral route. 12/25 completed Not Available Not Available Not Available Adempas 2.5 mg tablet Take 1 tablet 3 times a day by oral route. active Not Available Not Available No t Available macitenta n 10 mg tablet 10 mg by oral route. 2024 active Not Available Not Available Not Avai lable Jardiance 10 mg tablet TAKE 1 TABLET BY MOUTH ONCE DAILY 08/11 completed Not Available Not Available Not Available True Metrix Glucose Test Strip BID 08/11 completed DX: E11.8 Not Available Not Available Not Available Spiriva Respimat 2.5 mcg/actua tion solution for inhalatio n active Not Available Not Available Not Available OneTouch Verio Meter 3 times a day 08/11 completed E11.9 Not Available Not Available Not Available Accu-Chek Guide test strips Take 1 strip 3 times a day by miscell. route for 90 days. active Not Available Not Available No t Available Accu-Chek Guide Glucose Meter active Not Available Not Available Not Available Dexcom G7 Sensor device 06/01 completed Not Available Not Available Not Available Vitals Date Recorded Body height Body mass index (BMI) Body weight Oxygen saturation Oxygen saturation in Arterial blood by Pulse oximetry Heart rate Respiratory rate Body temperature Systolic And Diastolic Provider Name and Address Organization Details Last Updated DateTime 162.56 cm 27.5 kg/m2 63720.5 8 g 94 % 94 % 68 /min 20 /min 97.5 [degF] 118/60 mm[Hg] THOMAS YIN [facility] 10:48:03 Date Recorded Body height Body mass index (BMI) Body weight Oxygen saturation Oxygen saturation in Arterial blood by Pulse oximetry Heart rate Respiratory rate Systolic And Diastolic Provider Name and Address Organization Details Last Updated DateTime 162.56 cm 28.8 kg/m2 45192.5 2 g 90 % 90 % 90 /min 22 /min 132/80 mm[Hg] EMERALD PIKE [facility] 12:38:39 Social History Question Answer Notes LastModified by Organizat ion Details LastModified Time Tobacco Smoking Status Former Smoker ALBERT garcia [facility] 10/25/2023 12:00:37 When Did You Quit Smoking? 1-5yearssin celastcigar ette Stopped 08/03/2025 Information not available 08/11/2025 What Was The Date Of Your Most Recent Tobacco Screening? 08/11/2025 Information not available 08/11/2025 What Is Your Current Pack Years? 30ormorepac sisi Information not available 08/11/2025 At What Age Did You Start Smoking Tobacco? 10 Information not available 08/11/2025 How Much Tobacco Do You Smoke? No Information not available 10/25/2023 How Many Years Have You Smoked Tobacco? 50 Information not available 08/11/2025 Sex: Unknown Functional Status Question Answer Note LastModified by Organizat ion Details LastModified Time Do you use any illicit or recreational drugs? No Information not available 04/24/2023 Do you or have you ever used any other forms of tobacco or nicotine? No Information not available 10/25/2023 What is your level of alcohol consumption? None Information not available 04/24/2023 Do you or have you ever used e-cigarettes or vape? Never used electronic cigarettes Information not available 10/25/2023 Do you or have you ever used any nicotine-free cigarettes, vape, or chewing tobacco? No Information not available 08/11/2025 Mental Status None recorded. Family History Nothing Reported Notes:Father; , Insu abigail Dependent Diabetes Mellitus,, Myocardial Infarction, Sister 1; Heart Block, Heart Valve Insufficiency, Diabetes Mellitus Medical History No medical history recorded. Immunizations Vaccine Type Date Status Note Provider Nam e and Address Organization Details Recorded Time COVID-19, mRNA, LNP-S, PF, 100 mcg/0.5mL dose or 50 mcg/0.25mL dose 1 completed ALBERT garcia [facility] 05/28/2023 10:19:38 COVID-19, mRNA, LNP-S, PF, 100 mcg/0.5mL dose or 50 mcg/0.25mL dose 1 completed ALBERT garcia [facility] 05/28/2023 10:19:38 Influenza, split virus, trivalent, preservative 3 completed Not Available [facility] 08/11/2025 12:02:41 Influenza, split virus, trivalent, PF 4 completed Not Available [facility] 08/11/2025 12:02:41 Tdap 5 completed ASHISH WALKER [address] [place], [address], [facility], [place] 08/11/2025 13:04:45 Td(adult) unspecified formulation 3 completed Not Available [facility] 07/26/2023 09:10:01 Influenza, split virus, trivalent, preservative 3 completed Not Available [facility] 07/26/2023 09:10:01 Influenza, split virus, trivalent, preservative 2 completed Not Available [facility] 07/26/2023 09:10:01 Influenza, split virus, trivalent, preservative 4 completed Not Available [facility] 07/26/2023 09:10:01 Past Encounters Encounter ID Performer Location Encounter Start Date Encounter Closed Date Diagnosis/Indication Diagnosis SNOMED-CT Code Diagnosis ICD10 Code Diagnosis IMO Codes Diagnosis Note [id number] Anai Valdivia MD [facility] [address] [place] [address] 04/24/2023 11:23:34 04/24/2023 11:24:50 Diabetes mellitus 06844606 E13.42 very poorly controlled . Maybe another perspectiv e will help to motivate the patient to do a better job with his diabetes. Pain in left foot 096240 0097 83968 M79.672 [id number] Anai Valdivia MD [facility] [address] [place] [address] 05/28/2023 10:12:59 05/28/2023 20:28:54 Diabetes mellitus 91147351 E13.42 [id number] Anai Valdivia MD [facility] [address] [place] [id number] 07/26/2023 09:09:50 08/03/2023 17:40:19 Type 2 diabetes mellitus without complication 868583738 E11.9 Long-term current use of antibiotic 705637221 Z79.2 [id number] Anai Valdivia MD [facility] [address] [place] [address] 10/18/2023 08:52:26 10/18/2023 14:10:20 Atrial fibrillation 69723154 I48.91 [id number] Anai Valdivia MD [facility] [address] [place] [address] 10/25/2023 10:49:29 10/25/2023 12:59:56 Type 2 diabetes mellitus without complication 739618104 E11.9 [id number] Anai Valdivia MD [facility] [address] [place] [address] 11/02/2023 09:14:03 11/02/2023 09:34:02 Pulmonary arterial hypertension 28619536 I27.21 Type 2 claudia betes mellitus without complication 846966931 E11.9 [id number] Anai Valdivia MD [facility] [address] [place] [id number] 12/25/2023 12:04:07 12/26/2023 13:59:44 Dyspnea 525760879 R06.00 [id number] Anai Valdivia MD [facility] [address] [place] [address] 01/23/2024 08:43:49 01/24/2024 10:51:34 [id number] Anai Valdivia MD [facility] [address] [place] [address] 02/26/2024 10:20:39 02/26/2024 11:26:00 Type 2 diabetes mellitus without complication [id number] E11.9 Hypothyroidism 00883425 E03.9 Diabetes mellitus 601827 09 E13.42 Chronic ob structive pulmonary disease 17753895 J44.9 Atrial fibrillation 4943 6004 I48.91 Congestive heart failure 49070923 I50.9 Hyperlipidemia 82662667 E78.5 Chronic pu lmonary thromboembolism 985389930 I27.82 [id number] Anai Valdivia MD [facility] [address] [place] [address] [id number] 5 03/26/2024 09:43:38 03/26/2024 10:01:06 Pulmonary arterial hypertension 15839474 I27.21 [id number] Anai Valdivia MD [facility] [address] [place] [address] [phone] 05/13/2024 08:22:02 05/13/2024 21:37:47 Pulmonary arterial hypertension 35802736 I27.21 [id number] Anai Valdivia MD [facility] [address] [place] [address] [phone] 5 06/09/2024 10:05:48 06/09/2024 10:52:06 Diabetes mellitus 60403840 E13.42 Intermittent vomiting 23 0625328 R11.10 Anemia 496270076 D64.9 Pain of le ft shoulder joint 2825127745 4112712 M25.513 [id number] Feliciano Gordon MD [facility] [address] [place] [address] [phone] 06/12/2024 15:28:04 06/12/2024 16:59:40 Bronchitis 78325822 J40 Concerned about his exam of the mild wheezing. Start antibiotic s. Continue to use inhalers. Cough 76930050 R05.9 COVID test was negative. Nausea and vomiting 1691999 R11.2 Provide some Zofran to help with nausea and vomiting so the patient can remain hydrated. Encouraged the patient to drink clear liquids today and start a bland diet tomorrow. Acute gastroenteritis 69 468215 K52.9 [id number] Anai Valdivia MD [facility] [address] [place] [address] [phone] 5 07/22/2024 08:26:33 07/23/2024 12:14:56 Type 2 diabetes mellitus without complication 702318557 E11.9 [id number] Ania Valdivia MD [facility] [address] [place] [address] [phone] 5 08/11/2024 09:46:45 08/11/2024 11:07:33 Type 2 diabetes mellitus without complication 903986994 E11.9 Anemia 046838509 D64.9 Diabetes mellitus 661206 09 E13.42 [id number] Anai Valdivia MD [facility] [address] [place], [place] [phone] 08/11/2024 11:08:19 08/12/2024 04:03:50 Chronic kidney disease stage 3B 955004562 N18.32 Anemia 426088450 D64.9 [id number] Anai Valdivia MD [facility] [address] [place] [address] [phone] 5 11/25/2024 12:43:40 11/25/2024 16:07:09 Hypercholesterolemia 57825959 E78.00 Chronic ob structive pulmonary disease 73930095 J44.9 Type 2 claudia betes mellitus without complication 303451451 E11.9 Hypothyroidism 86006891 E03.9 Chronic at rial fibrillation 286913697 I48.20 Chronic pu lmonary thromboembolism 426534713 I27.82 Congestive heart failure 06225626 I50.9 Chronic ki dney disease 057456015 I13.0 Pain of le ft shoulder joint 7850412366 4192113 M25.543 [id number] Anai Valdivia MD [facility] [address] [place], [place] [phone] 5 02/03/2025 13:55:19 02/04/2025 12:20:12 Anemia co-occurrent and due to chronic kidney disease stage 3 3412295745 07810 D63.1 Congestive heart failure 40037328 I50.812 Anemia 742128383 D64.9 [id number] [facility] [address] [place] [address] [phone] 5 02/08/2025 14:12:09 02/09/2025 22:25:04 Acute pansinusitis 4294249 J01.40 Discussed use of antibiotic . Take with food.May use Stepan's nasal inserts and also apply on chest. Push oral fluids. Consider nasal saline rinses and otc decongesta nt.Use tylenol/mo minh for alston. [id number] Anai Valdivia MD [facility] [address] [place] [address] [phone] 5 02/24/2025 10:58:39 02/24/2025 12:55:05 Congestive heart failure 69521980 I50.812 Chronic ob structive pulmonary disease 93012949 J44.9 Diabetes mellitus 931679 09 E13.42 Uncontroll ed type 2 diabetes mellitus 167974828 E11.65 Pain of le ft shoulder joint 7733902601 2852500 M25.512 Screening for malignant neoplasm of colon 954117610 Z12.11 [id number] Anai Valdivia MD [facility] [address] [place] [address] [phone] 5 06/01/2025 10:17:34 06/01/2025 11:12:05 Type 2 diabetes mellitus without complication 375284079 E11.9 Hypothyroidism 10735989 E03.9 Chronic at rial fibrillation 348592343 I48.20 [id number] Anai Valdivia MD [facility] [address] [place] [address] [phone] 5 07/08/2025 10:08:24 07/09/2025 12:33:19 Chronic kidney disease stage 4 813196338 N18.4 8040924 Adult heal th examination 865474643 Z00.01 1827113 [id number] Anai Valdivia MD [facility] [address] [place] [address] [phone] 5 07/15/2025 09:46:43 07/16/2025 15:47:39 Acute kidney injury 64296786 N17.9 [id number] [id number] Anai Valdivia MD [facility] [address] [place] [address] [phone] 07/31/2025 09:23:28 08/03/2025 10:19:47 Anemia 742927859 D64.9 Acute kidney injury 1466 9001 N17.9 089779 [id number] [facility] [address] [place] [address] [phone] 5 08/11/2025 12:00:43 08/11/2025 13:58:09 Chronic kidney disease stage [id number] Mcclain Veyo is who he follows with for kidneys. Cr 3.6 on discharge. Iron defic iency anemia 45471235 D50.8 42219430 Injury of right foot 771 185267 S91.301A [id number] Will follow with Dr. Higginbotham or Dr. Mendoza. Diabetic foot ulcer 3710 86769 E11.621 L97.428 Follows with wound care. Congestive heart failure 03183918 I50.812 Lots of fluid pulled off during hospital visit. Health Concerns Section Related Observation LastModified by Organization Detai ls LastModified Time None Recorded Concern Status LastModified by Organization Details LastModified Time None Recorded Advance Directives Directive None Recorded Payers Insurance Date Sequence Insurance Name Policy Number Policy Godinez Covered Member ID Godinez Member ID Guarantor Name 07/31/2025 [place] - [id number] (MEDICARE) Guy Wiseman [id number] Guy Wiseman 08/08/2025 1 [employer] (MEDICARE REPLACEMENT/ ADVANTAGE - PPO) [id number] Guy Wiseman [id number] Guy Wiseman 02/21/2023 1 *SELF PAY* Fr awilda Wiseman 07/24/2025 1 [place] Guy Wiseman [id number] Guy Wiseman Notes Date Note Type Note Provider Name and Address Organization Details Recorded Time 5 text/html DiabetesReported by PatientHPIFor compliance, patient reportsnoncompliant with home glucose monitoringbut reportscompliant with medicationsandcompliant with follow-up visits. For associated symptoms, patient reportscalluses on feet (left foot-pt is wearing a boot)but reportsno weight gain,no weight loss,no dizziness,no headaches,no increased thirst,no increased appetite,no increased urination,no numbness of feet,no fatigue,no blurred vision, andno paresthesias. For review finger sticks, patient reportsfastin-230(pt stated that he checks his bs two times per day on occasion). For duration, patient reportschronic. For control, patient reportstreated with insulin. For self care, patient reportsmonitoring glucose 2 times per day,seeing eye doctor regularly, andchecking feet regularly. Musculoskeletal PainReported by PatientHPIFor quality, patient reportssharp. For severity, patient reportsinterferes with sleepbut reportsno change. For associated symptoms, patient reportsweak limbs. For location, patient reportsleft shoulder(radiates down left arm). For duration, patient reportspresent for 1-6 months. For timing, patient reportsconstant. For context, patient reportstrauma. COPDReported by PatientHPI:For associated symptoms, patient reportsdyspnea during exertionandcoughbut reportsno feverandno wheezing. For duration, patient reportschronic. For alleviating factors, patient reportsrelieved with rest. Pt is going to wound care for a ulcer on his left footHXpt sees Accounting Professor [facility]. He recently started pt on Jardiancept declined ColonoscopyPt sees [facility] Anai Valdivia MD [address] [place] [address], [phone], MELISA Mittal Hoh [facility] 06/01/2025 11:05:31
--- NOTE | 2025-08-24 01:29 | XRR_ITS ---
PROCEDURE INFORMATION: Exam: XR Chest Exam date and time: 08/24/2025 1:32 AM Age: 70 years old Clinical indication: Shortness of breath; Prior surgery; Surgery date: 6+ months; Surgery type: Tavr; C/O SOB. History of copd. TECHNIQUE: Imaging protocol: Radiologic exam of the chest. Views: 1 view. Total images: 1 COMPARISON: 1. CR XR chest 1V portable [id number] 08/19/2025 9:18 AM 2. CR XR chest 1V portable [id number] 08/05/2025 4:19 PM 3. CR (CHEST, ) 08/03/2025 4:42 PM 4. CR (CHEST, ) 07/18/2025 10:25 AM FINDINGS: Tubes, catheters and devices: PICC line has been advanced since prior chest x-ray (08/19/2025), tip terminates satisfactory at the right atrium/SVC junction. Lungs: Interval improvement of mild prominence of the pulmonary vasculature. Stable generalized reticular interstitial thickening, likely chronic, without focal consolidation. Pleural spaces: No significant pleural effusion. No pneumothorax. Heart/Mediastinum: TAVR prosthesis in situ, stable expected position. Mild cardiomegaly. Vasculature: Moderate aortic atherosclerotic calcification. Atherosclerotic carotid bulb calcification. Bones/joints: Moderate generalized degenerative changes of the vertebral column characterized by multilevel osteophyte formation, degenerative disc height loss and facet arthrosis commensurate with patient's age. Acromioclavicular joint mild chronic degenerative arthrosis. Shoulder glenohumeral osteoarthritis. Right humeral head suture anchor. No acute findings or suspicious lesions seen of the bones. Qualitative demineralization of bones (osteopenia) limiting evaluation for nondisplaced fractures. XR/XR chest 1V portable [id number] IMPRESSION: 1. Interval improvement of mild central pulmonary venous prominence. 2. No new acute cardiopulmonary disease or adverse interval change radiographically. 3. Stable reticular interstitial thickening, likely chronic, without focal consolidation. Appearance most consistent with chronic fibrotic interstitial change, age-related/nonspecific. Recommend correlation with clinical history; pulmonary function tests if clinically indicated. 4. PICC line has been advanced since prior chest x-ray (08/19/2025), tip now terminates satisfactory at the right atrium/SVC junction. 5. Moderate degenerative skeletal changes of the spine, and other chronic/nonacute findings as described above. COMMENTS: Qualitative demineralization of bones (osteopenia) limiting evaluation for nondisplaced fractures.
--- NOTE | 2025-08-24 01:31 | W.ED.SOB ---
HPI - SOB/Dyspnea General: Chief Complaint: Shortness of Breath/Dyspnea Stated Complaint: SOB Pain across chest into neck Time Seen by Provider: 08/24/25 01:23 History of Present Illness: HPI Narrative: Patient is a 70-year-old male who presents with acute onset of chest pain, dyspnea, and neck pain that started this afternoon while at rest. He describes the chest pain as radiating from one side to the other, and the neck pain extends across the entire posterior neck region. He has vomited twice today. Additionally, he reports a cough that has worsened over the weekend, producing white phlegm. The cough is exacerbating his chest pain. Patient had previously quit smoking during a recent hospitalization a few weeks ago, and his cough had initially improved before worsening this weekend. He denies fever but reports feeling chilly, which he states is his baseline. Patient has lower extremity edema which he attributes to kidney failure. He also has a diabetic ulcer on the left foot that is being managed by wound care, and recently had stitches between the toes of his right foot. Related Data Home Medications ?Medication ?Instructions ?Recorded ?Confirmed bumetanide 1 mg tablet 2 mg PO DAILY 11/27/23 08/24/25 Held on 08/07/25. Instructions: Resume on 08/10/25. resume bumex 1mg on sunday levothyroxine 112 mcg tablet 112 mcg PO DAILY 11/27/23 08/24/25 riociguat 2.5 mg tablet (Adempas) 2.5 mg PO TID 11/27/23 08/24/25 acetaminophen 500 mg tablet 1,000 mg PO Q6H PRN Fever Or Pain 07/18/25 08/24/25 (Tylenol Extra Strength) apixaban 5 mg tablet (Eliquis) 5 mg PO BID 07/18/25 08/24/25 Held on 08/07/25. Instructions: Resume on 08/14/25. atorvastatin 40 mg tablet 40 mg PO DAILY 07/18/25 08/24/25 macitentan 10 mg tablet (Opsumit) 10 mg PO DAILY 08/02/25 08/24/25 ceftriaxone 1 gram solution for 1 g IV DAILY 08/24/25 08/24/25 injection Previous Rx's ?Medication ?Instructions ?Recorded Cam boot to left #1 ea 05/15/23 Diabetic shoes #1 ea 08/25/24 CAM walker #1 ea 04/20/25 hydrocodone 5 mg-acetaminophen 325 1 tab PO Q8H PRN pain 4 days #12 08/03/25 mg tablet tabs pantoprazole 40 mg tablet,delayed 40 mg PO BID 30 days #60 tabs 08/07/25 release (Protonix) sucralfate 1 gram tablet (Carafate) 1 g PO BID 4 weeks #56 tabs 08/07/25 levofloxacin 500 mg tablet 500 mg PO DAILY #7 tabs 08/17/25 clarithromycin 500 mg tablet 500 mg PO BID 14 days #28 tabs 08/19/25 metronidazole 500 mg tablet 500 mg PO BID 14 days #28 tabs 08/19/25 Allergies Allergy/AdvReac Type Severity Reaction Status Date / Time No Known Allergies Allergy Verified 08/24/25 01:13 PFS ED PFSH: Medical History Pericardial effusion Tobacco abuse Anemia Diabetes Warfarin anticoagulation Chest pain History of pulmonary embolism Congestive heart failure History of nonmelanoma skin cancer Hypothalamic hypothyroidism Hypertension History of blood clots COPD (chronic obstructive pulmonary disease) History of pulmonary embolism Surgical History S/P TAVR (transcatheter aortic valve replacement) History of rotator cuff surgery Social History (Updated 08/24/25 @ 09:38 by Freeman Rodriguez MD) Smoking and tobacco/nicotine status: former use of tobacco/nicotine Quit status (tobacco/nicotine): has quit using Year quit tobacco: 2024 Former quit date comment: a week ago Alcohol intake: never Substance/Drug Use: never Marital status: Life Partner Physical Exam Const: GENERAL APPEARANCE: cooperative and ill appearing; not frail appearing HENMT: COMMON NORMALS: normocephalic, atraumatic and Normal external nose present HEAD & SCALP: normocephalic and atraumatic FACE & SINUS: normal facial exam and face symmetric NOSE: Normal external nose present Eye: COMMON NORMALS: Equal, round and reactive pupils present and EOMs intact bilaterally PUPIL: Yes Equal, round and reactive pupils present Neck/C-Spine: GENERAL: Yes trachea midline Chest: CHEST: Yes Symmetrical chest wall rise Resp: COMMON NORMALS: clear to auscultation bilaterally EFFORT & INSPECTION: Yes tachypneic, Yes labored and Yes Actively coughing AUSCULTATION: clear to auscultation bilaterally Cardio: RATE: tachycardic GI: COMMON NORMALS: Normal to inspection, nondistended, normoactive bowel sounds present Extremity: GENERAL: Yes edema Neuro: BUDDY COMA SCALE: document GCS findings Buddy coma scale eye opening: Spontaneous Buddy coma scale verbal response: Orientated [place] coma scale motor response: Obey commands Buddy coma scale total score: 15 SENSORY EXAM: Yes extremities (intact) Psych: COMMON NORMALS: speech normal SPEECH: Yes normal speech Course Vital Signs: Vital signs: Vital Signs Temperature 98.0 F 08/25/25 19:48 Pulse Rate 107 H 08/25/25 20:00 Respiratory Rate 18 08/25/25 20:00 Blood Pressure 113/56 08/25/25 19:48 Pulse Oximetry 90 08/25/25 20:00 Oxygen Delivery Me thod Nasal Cannula 08/25/25 20:00 Oxygen Flow Rate 6 08/25/25 20:00 MDM - SOB/Dyspnea Medical Decision Making Patient is hypoxic over his baseline. He is mildly tachycardic. White blood cell count is 13. Hemoglobin is 8.7. Bicarbonate is 17. Creatinine is 3.5 which is his baseline. Chest x-ray shows improvement in pulmonary vascular congestion from prior. Swabs are negative for COVID flu and RSV. His delta troponin is -6 at 2 hours. Lactic acid is only 1.1. CTA of the chest is performed, and results are pending. Results show bilateral PE. Right heart strain is likely from pulmonary HTN and not PE. effusions are present. Admission. anticoagulation (pt had recently stopped Eliquis due to GI bleeding,and had just restarted). Lab Data 08/25/25 09:53 08/25/25 05:37 Labs/Radiology: Radiology Impressions Chest X-Ray 08/24/25 01:29 IMPRESSION: 1. Interval improvement of mild central pulmonary venous prominence. 2. No new acute cardiopulmonary disease or adverse interval change radiographically. 3. Stable reticular interstitial thickening, likely chronic, without focal consolidation. Appearance most consistent with chronic fibrotic interstitial change, age-related/nonspecific. Recommend correlation with clinical history; pulmonary function tests if clinically indicated. 4. PICC line has been advanced since prior chest x-ray (08/19/2025), tip now terminates satisfactory at the right atrium/SVC junction. 5. Moderate degenerative skeletal changes of the spine, and other chronic/nonacute findings as described above. COMMENTS: Qualitative demineralization of bones (osteopenia) limiting evaluation for nondisplaced fractures. Chest CTA 08/24/25 04:06 IMPRESSION: 1. Right upper lobe opacity likely neoplastic in origin. An inflammatory cause is felt to be less likely. 2. Mediastinal, right hilar and upper abdominal adenopathy. 3. Nukrqmfx-rx-sgdqa right and small left pleural effusion with compressive atelectasis. 4. Emphysema. 5. Probable mild interstitial edema. 6. Pulmonary emboli involving 2nd and 3rd order branches of the lower lobe pulmonary arteries. The RV/LV ratio is 1.24. 7. Please see above comments for additional details. COMMENTS: The presence of pulmonary emphysema on CT is an independent risk factor for lung cancer. In the absence of a history or active diagnosis of lung cancer, it is recommended that this patient with emphysema be evaluated for enrollment in a low dose CT lung cancer screening program. ADDENDUM: 08/24/25 0604 COMMENT: THIS REPORT CONTAINS FINDINGS THAT MAY BE CRITICAL TO PATIENT CARE. The exam findings were verbally communicated by me to RUEL ALVARADO via telephone conference at 6:02 AM CDT on 08/24/2025. The findings were acknowledged and understood. Chest Ultrasound 08/24/25 09:09 IMPRESSION: Very small right-sided pleural effusion. Effusion would probably be amenable to thoracentesis if necessary for diagnostic purposes. Less than 200 cc likely. Laboratory Results WBC 12.89 10^3/uL (3.29-11.43) H 08/24/25 01:12 RBC 3.04 10^6/uL (3.85-5.65) L 08/24/25 01:12 Hgb 8.70 g/dL (11.27-16.99) L 08/24/25 01:12 Hct 28.1 % (37-53) L 08/24/25 01:12 MCV 92.4 fl (82-101) 08/24/25 01:12 MCH 28.6 pg (27-33) 08/24/25 01:12 MCHC 31.0 g/dL (30-55) 08/24/25 01:12 RDW 15.0 % (12.1-15.1) 08/24/25 01:12 Plt Count 151 10^3/cmm (157-399) L 08/24/25 01:12 MPV 11.0 fL (7.4-10.4) H 08/24/25 01:12 Neut % (Auto) 76.1 % 08/24/25 01:12 Lymph % (Auto) 12.5 % 08/24/25 01:12 Gosper % (Auto) 10.0 % 08/24/25 01:12 Eos % (Auto) 0.7 % 08/24/25 01:12 Baso % (Auto) 0.2 % 08/24/25 01:12 Neut # (Auto) 9.82 10^3/uL (1.8-7.7) H 08/24/25 01:12 Lymph # (Auto) 1.6 10^3/uL (0.8-4.8) 08/24/25 01:12 Gosper # (Auto) 1.3 10^3/uL (0.2-0.9) H 08/24/25 01:12 Eos # (Auto) 0.1 10^3/uL (0.0-0.8) 08/24/25 01:12 Baso # (Auto) 0.0 10^3/uL (0.0-0.1) 08/24/25 01:12 Nucleated RBC % (auto) 0 % 08/24/25 01:12 Nucleated RBCs # 0.0 /100WBC 08/24/25 01:12 Specimen Type Arterial 08/24/25 01:49 Sample Site Brachial, left 08/24/25 01:49 ABG pH 7.36 (7.35-7.45) 08/24/25 01:49 ABG pCO2 29.1 mmHg (35-45) L 08/24/25 01:49 ABG pO2 63.3 mmHg (80.0-100.0) L 08/24/25 01:49 ABG HCO3 16.3 mmol/L (22-26) L 08/24/25 01:49 ABG Base Excess -8.1 mmol/L (-2.0-2.0) L 08/24/25 01:49 Patrice Test N/a 08/24/25 01:49 Hematocrit 28.9 % (42-52) L 08/24/25 01:49 Hgb O2 Saturation 90.9 % (95-100) L 08/24/25 01:49 Carboxyhemoglobin 1.2 %THgb (0.4-20.1) 08/24/25 01:49 Methemoglobin 0.6 % (0.4-1.5) 08/24/25 01:49 Total Hemoglobin 9.4 g/dL (14-18) L 08/24/25 01:49 O2 Delivery Device Nc 08/24/25 01:49 O2 Liters/Min 1.0 % 08/24/25 01:49 Anesthesiologists' Assistant ID Perez 08/24/25 01:49 Sodium 139 mmol/L (136-145) 08/24/25 01:12 Potassium 3.7 mmol/L (3.5-5.1) 08/24/25 01:12 Chloride 105 mmol/L (98-107) 08/24/25 01:12 Carbon Dioxide 17 mmol/L (22-29) L 08/24/25 01:12 Anion Gap 20.7 (5-19) H 08/24/25 01:12 BUN 51 mg/dL (8-23) H 08/24/25 01:12 Creatinine 3.5 mg/dL (0.7-1.2) H 08/24/25 01:12 GFR Calculation Not Reportable 08/24/25 01:12 Glucose 155 mg/dL (65-115) H 08/24/25 01:12 Calculated Osmolality 305 mOsm/kg (285-295) H 08/24/25 01:12 Lactic Acid 1.1 mmol/L (0.5-2.2) 08/24/25 01:12 Calcium 8.3 mg/dL (8.5-10.5) L 08/24/25 01:12 Total Bilirubin 0.2 mg/dL (0.15-1.2) 08/24/25 01:12 AST 25 U/L (0-40) 08/24/25 01:12 ALT 12 U/L (0-41) 08/24/25 01:12 Alkaline Phosphatase 276 U/L (40-130) H 08/24/25 01:12 Troponin T Baseline 108 ng/L (0-15) H* 08/24/25 01:12 Troponin T 120 Minute 101.5 ng/L (0-15) H 08/24/25 03:16 Delta Troponin T -6.5 ABS# (0-10) L 08/24/25 03:16 NT-Pro-B Natriuret Pep 9922 pg/mL (0-125) H 08/24/25 01:12 Total Protein 6.8 g/dL (6.6-8.7) 08/24/25 01:12 Albumin 3.3 g/dL (3.5-5.2) L 08/24/25 01:12 Globulin 3.5 g/dL (1.3-4.6) 08/24/25 01:12 Influenza A (PCR) Negative (Negative) 08/24/25 02:25 Influenza Type B (PCR) Negative (Negative) 08/24/25 02:25 RSV (PCR) Negative (Negative) 08/24/25 02:25 SARS-CoV-2 (PCR) Negative (Negative) 08/24/25 02:25 XR interpretation done by ED provider, pending radiology final review Discharge Plan Discharge Patient Disposition: Admitted As Inpatient Admit Provider: Sherice Gonzalez Clinical Impression: Acute respiratory failure with hypoxia, Pulmonary hypertension, Pulmonary embolism Condition: Stable Coding Level of Care Code ED Manager Casino for José Cade
[2025-08-24 01:55] LABS: Hematocrit 28.1 % (37-53); Hemoglobin 8.70 g/dL (11.27-16.99); Mean Corpuscular HGB Conc 31.0 g/dL (30-55); Mean Corpuscular Hemoglobin 28.6 pg (27-33); Mean Corpuscular Volume 92.4 fl (82-101); Nucleated Red Blood Cells % 0 %; Platelet Count 151 10^3/cmm (157-399); Red Blood Count 3.04 10^6/uL (3.85-5.65); White Blood Count 12.89 10^3/uL (3.29-11.43)
[2025-08-24 02:00] LABS: Lactic Sepsis W/Reflex 1.1 mmol/L (0.5-2.2)
[2025-08-24 02:00] LABS: ABG PCO2 29.1 mmHg (35-45); ABG PH Result 7.36 (7.35-7.45); Arterial Blood Gas Hematocrit 28.9 % (42-52); Blood Gas LPM 1.0 %; Blood Gas Operator Identificat SAM; Blood Gas Sample Site Brachial, left; Blood Gas Sample Type Arterial; Carboxyhemoglobin 1.2 %THgb (0.4-20.1); HCO3 ABG 16.3 mmol/L (22-26); Methemoglobin 0.6 % (0.4-1.5); PO2 ABG 63.3 mmHg (80.0-100.0)
[2025-08-24 02:06] LABS: Alanine Aminotransferase 12 U/L (0-41); Albumin Level 3.3 g/dL (3.5-5.2); Alkaline Phosphatase 276 U/L (40-130); Blood Urea Nitrogen 51 mg/dL (8-23); Calcium 8.3 mg/dL (8.5-10.5); Carbon Dioxide 17 mmol/L (22-29); Chloride 105 mmol/L (98-107); Globulin 3.5 g/dL (1.3-4.6); Glucose 155 mg/dL (65-115); NT Pro B Type Natriuretic Pept 9922 pg/mL (0-125); Osmolality Calculated 305 mOsm/kg (285-295); Sodium 139 mmol/L (136-145); Total Protein 6.8 g/dL (6.6-8.7)
[2025-08-24 02:11] LABS: Anion Gap 20.7 (5-19); Creatinine Clr Calc Pharmacy 18.0321; Potassium 3.7 mmol/L (3.5-5.1)
[2025-08-24 02:12] LABS: Aspartate Amino Transferase 25 U/L (0-40)
[2025-08-24 02:13] LABS: Troponin(5th) Baseline 108 ng/L (0-15)
[2025-08-24] MEDS: ondansetron 2 mg/ML SDV 2 mL 4 MG IVP (02:17)
[2025-08-24] MEDS: morphine 4 mg/mL SDV 1 mL 2 MG IVP (02:19)
[2025-08-24] MEDS: methylPREDNISolone sod succ 125 mg/2 mL INJ IV (02:20)
[2025-08-24] MEDS: FUROsemide 10 mg/mL SDV 10mL 60 MG IVP (02:22)
[2025-08-24 03:31] LABS: Respiratory Syncytial Virus Ce NEGATIVE (Negative); SARS-CoV-2 PCR NEGATIVE (Negative)
[2025-08-24 04:02] LABS: Troponin 5 2HR 101.5 ng/L (0-15); Troponin 5 2HR Delta -6.5 ABS# (0-10)
--- NOTE | 2025-08-24 04:06 | CTR_ITS ---
PROCEDURE INFORMATION: Exam: CTA Chest With Contrast Exam date and time: 08/24/2025 4:30 AM Age: 70 years old Clinical indication: Cough and shortness of breath; Prior surgery; Surgery date: 6+ months; Surgery type: Tavr; Cough with SOB and hypoxia. RT sided picc in place. TECHNIQUE: Imaging protocol: Computed tomographic angiography of the chest with contrast. Exam focused on the arteries. 3D rendering (Not supervised by radiologist): MIP and/or 3D reconstructed images were created by the technologist. Radiation optimization: All CT scans at this facility use at least one of these dose optimization techniques: automated exposure control; mA and/or kV adjustment per patient size (includes targeted exams where dose is matched to clinical indication); or iterative reconstruction. Contrast material: OMNI 350; Contrast volume: 74 ml; Contrast route: INTRAVENOUS (IV); COMPARISON: CT chest wo con [id number] 12/02/2023 8:21 PM RADIATION DOSE METRICS: Total DLP (mGy-cm): 379.99 FINDINGS: Pulmonary arteries: There are filling defects within 2nd and 3rd order branches of the lower lobe pulmonary arteries. No large central PE is identified. The RV/LV ratio is 1.24 suggesting a degree of right heart strain which may or may not be related to the PE. Aorta: The thoracic aorta is normal in caliber without aneurysm or dissection. There is calcified plaque involving the aorta and coronary vessels. Lungs: There is dependent/compressive atelectasis bilaterally. There is confluence soft tissue within the right upper lobe which abuts the right gabe complex and measures 5.9 cm oblique transverse dimension by 3.1 cm oblique AP dimension by slightly greater than 5 cm craniocaudad dimension. Findings suspicious for tumor. An inflammatory process is felt to be less likely. There is septal thickening bilaterally in a relatively symmetric distribution suspicious for a component of background edema. Emphysema is also noted bilaterally. Pleural spaces: There is a yzuozqna-md-qrctt and small left pleural effusion. Heart: The heart is slightly enlarged. There is a small to moderate-sized pericardial effusion. There is an aortic valvular prosthesis. Lymph nodes: There is mediastinal and right hilar adenopathy. There is a subcarinal gabe complex measuring 2.3 x 4 cm in size. There is a pretracheal gabe complex measuring 2.4 x 2.3 cm. There is a prevascular node measuring 1.2 x 2.5 cm in size. There is a right hilar gabe complex/mass measuring 4.2 x 3.9 cm. There are additional smaller mediastinal and subcarinal nodes. There are additional enlarged nodes within the upper abdomen within the gastrohepatic ligament and possibly in the periportal space as well although these areas are not well evaluated. Bones/joints: There is an old-appearing compression fracture. No acute bony abnormalities are appreciated. Soft tissues: No acute soft tissue abnormalities are otherwise appreciated. CT/CT angio chest PE protcl [id number] IMPRESSION: 1. Right upper lobe opacity likely neoplastic in origin. An inflammatory cause is felt to be less likely. 2. Mediastinal, right hilar and upper abdominal adenopathy. 3. Stcfnajz-kb-akkdg right and small left pleural effusion with compressive atelectasis. 4. Emphysema. 5. Probable mild interstitial edema. 6. Pulmonary emboli involving 2nd and 3rd order branches of the lower lobe pulmonary arteries. The RV/LV ratio is 1.24. 7. Please see above comments for additional details. COMMENTS: The presence of pulmonary emphysema on CT is an independent risk factor for lung cancer. In the absence of a history or active diagnosis of lung cancer, it is recommended that this patient with emphysema be evaluated for enrollment in a low dose CT lung cancer screening program.
[2025-08-24] MEDS: iohexol 350 mg/mL 500 mL Btl (per mL) IV (04:41)
--- NOTE | 2025-08-24 07:30 | ECG_ITS ---
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 Measurements Intervals [place] Rate: 99 P: 0 MN: 0 QRS: 26 QRSD: 104 T: 72 QT: 368 QTc: 473 Interpretive Statements Possible sinus rhythm with a first-degree AV block POSSIBLE ANTERIOR MYOCARDIAL INFARCTION , OF INDETERMINATE AGE [30 ms Q WAVE IN V3/V4, OR R < 0.2 mV IN V4] Compared to ECG 08/24/2025 01:04:44 Supraventricular rhythm now present Ventricular premature complex(es) no longer present First degree AV block no longer present Myocardial infarct finding still present Electronically Signed On 08-25-2025 23:57:20 CDT by Patrice Lopez M.D. [email or web address]
[2025-08-24 07:47] LABS: Troponin 5 6HR 96.05 ng/L (0-15)
[2025-08-24 07:57] LABS: Troponin 5 6HR Delta -11.95 ng/L (0-12)
--- NOTE | 2025-08-24 08:16 | PM.HP ---
Providers/Chief Complaint Admitting Physician: Sherice Gonzalez MD Primary Care Provider: Patrick Nick MD Chief Complaint: SOB Pain across chest into neck History of Present Illness Guy Wiseman is a 70 year old gentleman with a history of smoking, chronic obstructive pulmonary disease (COPD), diabetes mellitus, congestive heart failure, hypertension, chronic kidney disease (CKD), prior pulmonary embolism (PE), and transcatheter aortic valve replacement (TAVR) presenting with shortness of breath. Symptoms began the previous afternoon with chest pain radiating across the chest and posterior neck pain. Over the weekend, cough worsened and became productive of white phlegm. Reports two episodes of vomiting yesterday, and a ?wicked? abdominal pain. Notes increased lower extremity swelling with skin tightness and peeling; toes opened from swelling when he passed out. He uses home oxygen; reports typically 2 L/min but device is set at 3 L/min. Denies using continuous positive airway pressure (CPAP) currently. Reports recent interruption of apixaban (Eliquis) for 1?2 weeks during a hospital stay, then restarted last Sunday; otherwise generally adherent. History of blood clots in lungs in 2003. Under lung specialist care in [place]; also follows with cardiology and nephrology (not on dialysis yet; vein mapping planned on the for potential fistula). Currently on antibiotics via peripherally inserted central catheter (PICC) for bone infection (osteomyelitis) and two oral antibiotics for Helicobacter pylori (H. pylori). Cough became significantly worse over the last few days; sometimes clear sputum. Reports diarrhea he thinks is related to antibiotics. Stopped smoking almost three weeks ago. Denies alcohol use. Requests water; able to take sips and ice chips; advised to go easy on food and clear liquids until nausea/vomiting improve. Review of Systems Const: Denies: fever(s), chills, body aches or malaise ENMT: Denies: throat pain Card: Reports: chest pain and edema; Denies: pre-syncope or dyspnea on exertion Resp: Reports: dyspnea and productive cough; Denies: change in phlegm color or hemoptysis GI: Reports: vomiting and diarrhea; Denies: abdominal pain, nausea, constipation, hematochezia or melena : Denies: flank pain, difficulty urinating, urinary frequency or hematuria Musc: Denies: back pain, joint swelling or joint redness Skin/Breast: Denies: rash or new lesions Neuro: Denies: headache(s) or confusion Medications/Allergies Home Medications ?Medication ?Instructions ?Recorded ?Confirmed ?Last Taken ?Type Cam boot to left #1 ea 05/15/23 08/19/25 08/19/25 Rx bumetanide 1 mg tablet 2 mg PO DAILY 11/27/23 08/19/25 08/19/25 History Held on 08/07/25. Instructions: Resume on 08/10/25. resume bumex 1mg on sunday levothyroxine 112 mcg tablet 112 mcg PO DAILY 11/27/23 08/19/25 08/19/25 History riociguat 2.5 mg tablet (Adempas) 2.5 mg PO TID 11/27/23 08/19/25 08/19/25 History Diabetic shoes #1 ea 08/25/24 08/19/25 08/19/25 Rx CAM walker #1 ea 04/20/25 08/19/25 08/19/25 Rx acetaminophen 500 mg tablet 1,000 mg PO Q6H PRN Fever Or Pain 07/18/25 08/19/25 08/19/25 History (Tylenol Extra Strength) apixaban 5 mg tablet (Eliquis) 5 mg PO BID 07/18/25 08/19/25 08/19/25 History Held on 08/07/25. Instructions: Resume on 08/14/25. atorvastatin 40 mg tablet 40 mg PO DAILY 07/18/25 08/19/25 08/19/25 History macitentan 10 mg tablet (Opsumit) 10 mg PO DAILY 08/02/25 08/19/25 08/19/25 History hydrocodone 5 mg-acetaminophen 325 1 tab PO Q8H PRN pain 4 days #12 08/03/25 08/19/25 08/19/25 Rx mg tablet tabs pantoprazole 40 mg tablet,delayed 40 mg PO BID 30 days #60 tabs 08/07/25 08/19/25 08/19/25 Rx release (Protonix) sucralfate 1 gram tablet (Carafate) 1 g PO BID 4 weeks #56 tabs 08/07/25 08/19/25 08/19/25 Rx levofloxacin 500 mg tablet 500 mg PO DAILY #7 tabs 08/17/25 08/19/25 08/19/25 Rx clarithromycin 500 mg tablet 500 mg PO BID 14 days #28 tabs 08/19/25 08/19/25 Unknown Rx metronidazole 500 mg tablet 500 mg PO BID 14 days #28 tabs 08/19/25 08/19/25 Unknown Rx Allergies Allergy/AdvReac Type Severity Reaction Status Date / Time No Known Allergies Allergy Verified 08/24/25 01:13 PFSH Acute PFSH: Medical History Pericardial effusion Tobacco abuse Anemia Diabetes Warfarin anticoagulation Chest pain History of pulmonary embolism Congestive heart failure History of nonmelanoma skin cancer Hypothalamic hypothyroidism Hypertension History of blood clots COPD (chronic obstructive pulmonary disease) History of pulmonary embolism Surgical History S/P TAVR (transcatheter aortic valve replacement) History of rotator cuff surgery Social History (Updated 08/24/25 @ 09:38 by Freeman Rodriguez MD) Smoking and tobacco/nicotine status: former use of tobacco/nicotine Quit status (tobacco/nicotine): has quit using Year quit tobacco: 2024 Former quit date comment: a week ago Alcohol intake: never Substance/Drug Use: never Marital status: Life Partner Vitals/I&O/Wt Last Vital Signs Temp 98.2 F 08/24/25 01:09 Pulse 101 H 08/24/25 08:03 Resp 17 08/24/25 06:00 BP 135/55 08/24/25 08:03 Pulse Ox 92 08/24/25 08:03 O2 Del Method Room Air 08/24/25 06:00 O2 Flow Rate 4 08/24/25 06:00 08/23/25 08/24/25 08/24/25 22:59 06:59 14:59 Intake Total 0 / 0 Balance 0 / 0 Weight last 48 hrs Weight 75.841 kg Physical Exam Narrative: Accompanied by significant other Const: COMMON NORMALS: patient oriented x3 and alert GENERAL APPEARANCE: cooperative ORIENTATION/CONSCIOUSNESS: Yes awake HENMT: COMMON NORMALS: oropharynx normal Neck/C-Spine: COMMON NORMALS: no JVD Resp: COMMON NORMALS: normal respiratory effort AUSCULTATION: diminished lung sounds Cardio: COMMON NORMALS: no JVD, regular rhythm, S1 normal heart sound present, S2 normal heart sound present and No murmurs present (Cardio) RHYTHM: regular rhythm HEART SOUNDS: S1 normal heart sound present and S2 normal heart sound present GI: COMMON NORMALS: Normal to inspection, nondistended, normoactive bowel sounds present, Soft to palpation and non-tender PALPATION: Yes Soft to palpation Extremity: COMMON NORMALS: no joint enlargement GENERAL: Yes edema (2+) OTHER: RUE PICC Neuro: COMMON NORMALS: patient oriented x3 and moves all extremities SENSORIUM/ORIENTATION: Yes alert Skin: COMMON NORMALS: no rashes or lesions noted Data 08/24/25 01:12 08/24/25 01:12 A&P Assessment and plan 1. Acute respiratory failure with hypoxia: Acute respiratory failure with hypoxia, multifactorial, with shortness of breath associated with tachypnea, decreased PaO2 down to 63 requiring 4 L nasal cannula oxygen normally on 2 to 3 L accompanied by productive cough of whitish to clear sputum. On presentation with finding of diminished air entry. With finding of mild possibly ectopic tachycardia mild leukocytosis 12.89 review of CBC and VBG normal pH mildly hypocapnic reviewed chemistry, troponin, NT proBNP, EKG, chest x-ray, CTA, nasal swab for influenza, COVID, RSV, ED provider note, discussed with ED provider. He had so far received breathing treatment a dose of Solu-Medrol and a dose of Lasix in the ED. Reviewed CTA, discussed findings with him and his significant other, including finding of right upper lobe opacity with suspected neoplasm, inflammatory cause felt to be less likely. Additional finding of recurrence of PE noted in 2nd and 3rd order branches of lower pulmonary arteries. Moderate to large right side pleural effusion. Respiratory failure suspected secondary to combination of acute exacerbation of COPD with dyspnea, productive cough, diminished air entry, hypoxia, as well as acute diastolic CHF with noted bilateral lower extremity edema pleural effusion, elevation of NT proBNP somewhat above his dry state numbers. Possible pneumonia not excluded. Additionally discussed with them regarding recurrence of PE. He had to hold anticoagulation for 1-2 weeks during and after prior admission due to acute anemia with suspected GI bleeding at that time requiring RBC transfusion. He has been back on Eliquis in the last several days. He will continue oxygen support, wean down as tolerating. Will treat moderate to severe COPD exacerbation with IV corticosteroid, will give IV PPI with also recent nausea and vomiting. Collect sputum culture. In addition to IV corticosteroids will continue empiric antibiotic coverage with ceftriaxone. Confirm his antibiotic regimen for H. pylori as he may already have atypical coverage there as well for possible pneumonia. Will continue treatment of congestive heart failure switch to IV diuretics, monitor intake and output, monitor for risk of electrolyte deficiency, GT, reassess chemistry, monitor weights. 2. COPD exacerbation: Worsening cough, increased sputum; requiring more oxygen than baseline. - Administer DuoNeb treatments. - Start systemic corticosteroids (Solu-Medrol/methylprednisolone). - Begin parenteral antibiotic coverage for COPD exacerbation, possible pneumonia. 3. Acute exacerbation of CHF (congestive heart failure): History of CHF with edema and markedly elevated NT-proBNP reported historically. - Switch to IV diuretics (IV bumetanide) -Complete troponin EKG series with noted moderate troponin elevation. 4. Pleural effusion: Pleural effusion noted on computed tomography (CT). - Obtain chest ultrasound to further assess pleural effusion. - Consider drainage for symptom relief and send fluid for testing if sufficient; evaluate for abnormal cells. 5. Mass of upper lobe of right lung: Right upper lobe opacity on CT concerning for mass; less likely pneumonia by report. - Send pleural fluid for cytology if drained to aid in evaluation of right upper lobe finding. 6. Pulmonary emboli: CT angiogram shows emboli in lower lobe pulmonary arteries; patient recently had interruption of apixaban. - Start anticoagulation with intravenous heparin drip initially; consider transition back to apixaban if appropriate. - Obtain transthoracic echocardiogram (TTE) to assess cardiac status in the setting of PE and heart failure. 7. Troponin level elevated: Complete troponin EKG series, assess for cardiac ischemia. Suspect type II [place] with respiratory failure. PE. Assess limited TTE. Monitor on telemetry with risk of arrhythmia. 8. Pulmonary hypertension: Will resume his usual medication with Adempas and Opsumit. 9. Chest pain: Chest pain radiating across chest and posterior neck since previous afternoon. Suspect combination due to the respiratory process as above, including PE. Complete troponin EKG series as above assess for cardiac ischemia. Obtain limited TTE. Plan: Nausea and vomiting : Two episodes of vomiting yesterday with abdominal pain; nausea present. - Provide antiemetics (e.g., ondansetron) as needed. - Start acid-shaka medication. - Allow sips of water and clear liquids; advance diet as tolerated once symptoms improve. Diarrhea : Patient reports diarrhea, suspects antibiotic-related. - Check for Clostridioides difficile (C. diff). Chronic kidney disease : CKD with recent baseline creatinine ~3.5; not on dialysis; vein mapping planned. - Monitor renal status during admission. Osteomyelitis : On intravenous antibiotics via PICC. - Confirm current antibiotic regimen and continue -ceftriaxone 1 g daily via PICC line H. pylori infection : Diagnosed on recent scope; on two oral antibiotics. - Confirm and continue current oral antibiotics for H. pylori. Follow-up : Care coordination during hospitalization. - Reschedule previously planned wound care appointment (noted for 08:45). - Discussed code status; patient agrees to full resuscitation if needed. PDMP PDMP Reviewed: Not Reviewed Attestations Medical Necessity Statement*: Admission over 2 midnights anticipated for assessment management of acute respiratory failure, COPD exacerbation, acute CHF, new PEs and gentleman with underlying pulmonary hypertension, COPD with chronic hypoxia, CKD, additional comorbidities. Diagnoses Acute respiratory failure with hypoxia J96.01 COPD exacerbation J44.1 Acute exacerbation of CHF (congestive heart failure) I50.9 Pleural effusion J90 Mass of upper lobe of right lung R91.8 Pulmonary emboli I26.99 Troponin level elevated R79.89 Pulmonary hypertension I27.20 Chest pain R07.9
--- NOTE | 2025-08-24 09:09 | US_ITS ---
WS: [id number] Ultrasound thorax, bilateral. Evaluate for pleural effusions. CT chest 08/24/2025. There is a very small RIGHT pleural effusion. This is a simple effusion. There is atelectatic lung within the effusion that moves with patient breathing. No LEFT pleural effusion. US/US chest [id number] IMPRESSION: Very small right-sided pleural effusion. Effusion would probably be amenable to thoracentesis if necessary for diagnostic purposes. Less than 200 cc likely.
[2025-08-24 10:37] LABS: Magnesium 1.4 mg/dL (1.7-2.3); Thyroid Stimulating Hormone 3.09 uIU/mL (0.27-4.20)
--- NOTE | 2025-08-24 10:45 | USCV_ITS ---
Guy Wiseman Age: 70 Gender: M : 1955 Exam Date: 08/24/2025 11:08 Ordering Phys: Freeman Rodriguez MD Technologist: BI Exam Location: [facility] – [place] Indication: PE, CHF, Trop Elev BP: 132 / 69 HR: Rhythm: Sinus Technical Quality: Adequate MEASUREMENTS (Male / Female) Normal Values 2D ECHO LV Diastolic Diameter PLAX 4.2 cm 4.2 - 5.9 / 3.9 - 5.3 cm IVS Diastolic Thickness 0.8 cm 0.6 - 1.0 / 0.6 - 0.9 cm IVS Systolic Thickness 1.2 cm LVPW Diastolic Thickness 1.1 cm 0.6 - 1.0 / 0.6 - 0.9 cm LVPW Systolic Thickness 1.4 cm LVOT Diameter 2.0 cm LV Ejection Fraction 2D Teich 59.2 % LV Ejection Fraction MOD 4C 58.3 % LV Ejection Fraction MOD 2C 57.3 % LV Ejection Fraction 2C AL 58.7 % LA Diameter 3.8 cm RA Systolic Volume 4C AL 46.7 ml RA Systolic Volume 4C MOD 45.1 ml LA Sys Volume AL 57.2 cm cubed LA Sys Volume Index AL 30.6 cm cubed/m squared Aorta at Sinotubular Diameter 1.8 cm IVC Diameter 1.4 cm M-MODE LA Ao Ratio MM 1.5 AV Cusp Separation MM 1.5 cm FINDINGS Left Ventricle Normal left ventricular size and systolic function, EF 59%. No regional wall motion abnormalities. Right Ventricle Mildly increased right ventricular size. Normal right ventricular systolic function. Right Atrium Mildly increased right atrial size. Left Atrium Mildly increased left atrial size. IA Septum Appears to be intact Mitral Valve Mild mitral annular calcification. Aortic Valve The bioprosthetic valve at the aortic position appears to be seated well with the possibly normal mobility Tricuspid Valve No gross abnormalities noted Pulmonic Valve Pulmonic valve not well visualized. Pericardium No pericardial effusion. Aorta Normal aortic annulus size. IVC Normal IVC dimension with <50% respiratory change of the inferior vena cava. CONCLUSIONS Normal left ventricular size and systolic function, EF 59%. No regional wall motion abnormalities. Mildly increased right ventricular size. Normal right ventricular systolic function. Mild biatrial enlargement Mild mitral annular calcification. The bioprosthetic valve at the aortic position appears to be seated well with the possibly normal mobility. There is no pericardial effusion. There are no intracardiac masses. Compared to the study from 08/04/2025, there may be a significant change in the 2D findings Dr Patrice Lopez MD [facility] (Electronically Signed) Final Date: 24 August 2025 22:59 S
[2025-08-24] MEDS: heparin 5,000 unit/mL INJ 1 mL IVP (10:51)
[2025-08-24] MEDS: methylPREDNISolone sod succ 40 mg/mL INJ 30 MG IVP ×2 (10:52→17:35)
[2025-08-24] MEDS: cefTRIAXone 1,000 mg SDV 1000 MG IVP (10:52)
[2025-08-24] MEDS: pantoprazole 40 mg SDV IVP ×2 (10:52→22:45)
[2025-08-24] MEDS: heparin drip 25,000 UNIT/500 ML PREMIX 21 UNIT IV (11:05)
[2025-08-24] MEDS: bumetanide 0.25 mg/mL SDV 10 mL 2 MG IVP (17:35)
[2025-08-24 17:47] LABS: Partial Thromboplastin Time 74.9 SECONDS (23.9-36.7)
[2025-08-24 23:57] LABS: Partial Thromboplastin Time 84.5 SECONDS (23.9-36.7)
[2025-08-25] VITALS (10 sets, daily range): BP systolic 97–131; BP diastolic 43–61; PULSE 96–107; RESP 12–27; TEMP 36.7–36.8; O2SAT 87–95
[2025-08-25] MEDS: methylPREDNISolone sod succ 40 mg/mL INJ 30 MG IVP ×3 (03:15→18:33)
[2025-08-25 03:24] LABS: Hematocrit 24.3 % (37-53); Hemoglobin 7.30 g/dL (11.27-16.99); Mean Corpuscular HGB Conc 30.0 g/dL (30-55); Mean Corpuscular Hemoglobin 27.7 pg (27-33); Mean Corpuscular Volume 92.0 fl (82-101); Nucleated Red Blood Cells % 0 %; Platelet Count 121 10^3/cmm (157-399); Red Blood Count 2.64 10^6/uL (3.85-5.65); White Blood Count 13.32 10^3/uL (3.29-11.43)
[2025-08-25 04:33] LABS: MRSA PCR OZH (swab) NOT DETECTED (Negative)
[2025-08-25 06:07] LABS: Alanine Aminotransferase 9 U/L (0-41); Albumin Level 3.1 g/dL (3.5-5.2); Alkaline Phosphatase 257 U/L (40-130); Anion Gap 22.1 (5-19); Aspartate Amino Transferase 18 U/L (0-40); Blood Urea Nitrogen 58 mg/dL (8-23); Calcium 8.0 mg/dL (8.5-10.5); Carbon Dioxide 16 mmol/L (22-29); Chloride 101 mmol/L (98-107); Creatinine Clr Calc Pharmacy 14.8679; Globulin 3.2 g/dL (1.3-4.6); Glucose 349 mg/dL (65-115); Osmolality Calculated 310 mOsm/kg (285-295); Potassium 4.1 mmol/L (3.5-5.1); Sodium 135 mmol/L (136-145); Total Protein 6.3 g/dL (6.6-8.7)
[2025-08-25] MEDS: bumetanide 0.25 mg/mL SDV 10 mL 2 MG IVP (06:30)
[2025-08-25] MEDS: pantoprazole 40 mg SDV IVP ×2 (08:27→21:55)
[2025-08-25] MEDS: magnesium sulfate premix 1 GM/100 ML PIGGYBACK IV (08:32)
[2025-08-25 08:57] LABS: Ferritin 357 ng/mL (30-400); Iron 41 ug/dL (59-158); Total Iron Binding Capacity 150 mcg/dl; Unsaturated Iron Binding 109 ug/dL (112-347)
[2025-08-25] MEDS: albumin 25 G/100 ML BAG 60 G IV (09:32)
--- NOTE | 2025-08-25 09:48 | PC.CHAP ---
Pastoral Care Encounter/Spiritual Assessment Type of Contact [] Declined vision specialist visit [] Patient/Family/Request visit [] Outpatient visit [] Follow-up visit [] Physician referral [] Code/Alert [] Routine visit [] Staff referral [] Actively dying [] Patient sleeping [] Family support [] [] Out of room [] Palliative care [] [x] Receiving care in room [] Pre-surgical visit [] Trauma [] Long length of stay [] ICU visit [] Other: Relational/Emotional Strength [] Patient feels connected with others/family/visitors/staff [] Distress [] Loneliness/isolation [] Abandonment Spirituality of Patient [] Person of [place] [] Attends Jewish of their [place] [] Believes in Prayer [] Reads Bible or Hoahaoism materials [] There are Spiritual issues to be addressed Drum Drier Operator Interventions [] Prayer [] Active listening [] Non-anxious presence [] Spiritual/emotional support [] Crisis/trauma care [] Spiritual counseling [] Bereavement support [] Provided bereavement packet [] Provided Bible/devotional materials [] Provided toy/stuffed animal, coloring book to patient or family member [] Provided Communion [] Anointing/[place] [] Salvation [] Completed spiritual assessment [] Other: Impact on Illness or Injury [] Angry [] Fearful [] Anxious [] Often cries [] Exhaustion [] Unable to work [] Unable to attend alevism [] Unable to walk/stand [] Unable to read [] Unable to drive [] Unable to eat/drink [] Unable to sleep [] Unable to be with family [] Patient intubated [] Other: Summary Time spent with patient
[2025-08-25 10:00] LABS: Hemoglobin 7.80 g/dL (11.27-16.99)
[2025-08-25 10:13] LABS: Partial Thromboplastin Time 70.0 SECONDS (23.9-36.7)
[2025-08-25] MEDS: cefTRIAXone 1,000 mg SDV 1000 MG IVP (11:03)
--- NOTE | 2025-08-25 11:07 | P.PN_ITS ---
Subjective 2 Subjective: He is subjectively feeling slightly better, but his oxygenation has not improved. Vitals/I&O/Wt Last Vital Signs Temp 98.0 F 08/25/25 07:35 Pulse 100 08/25/25 08:00 Resp 18 08/25/25 08:00 BP 123/48 08/25/25 07:35 Pulse Ox 95 08/25/25 08:00 O2 Del Method Nasal Cannula 08/25/25 08:00 O2 Flow Rate 6 08/25/25 08:00 08/24/25 08/25/25 08/25/25 22:59 06:59 14:59 Intake Total 390 / 1110 721.8 / 1831.8 340 / 340 Output Total 200 / 200 Balance 390 / 1110 521.8 / 1631.8 340 / 340 Weight last 48 hrs Weight 74.1 kg Weight 74.1 kg Weight 75.75 kg Weight 75.841 kg Physical Exam 2 Narrative: Accompanied by significant other Const: COMMON NORMALS: patient oriented x3 and alert GENERAL APPEARANCE: c ooperative ORIENTATION/CONSCIOUSNESS: Yes awake HENMT: COMMON NORMALS: oropharynx normal Neck/C-Spine: COMMON NORMALS: no JVD Resp: COMMON NORMALS: normal respiratory effort and clear to auscultation bilaterally AUSCULTATION: clear to auscultation bilaterally and diminished lung sounds Cardio: COMMON NORMALS: no JVD, regular rhythm, S1 normal heart sound present, S2 normal heart sound present and No murmurs present (Cardio) RHYTHM: regular rhythm HEART SOUNDS: S1 normal heart sound present and S2 normal heart sound present GI: COMMON NORMALS: Normal to inspection, nondistended, normoactive bowel sounds present, Soft to palpation and non-tender PALPATION: Yes Soft to palpation Extremity: COMMON NORMALS: no joint enlargement and no pedal edema GENERAL: Yes edema (2+) OTHER: RUE PICC Neuro: COMMON NORMALS: patient oriented x3 and moves all extremities S ENSORIUM/ORIENTATION: Yes alert Skin: COMMON NORMALS: no rashes or lesions noted GENERAL SKIN EXAM: no rashes or lesions noted Data 08/25/25 09:53 08/25/25 05:37 Micro: Microbiology 08/25/25 04:15 Bacterial Antigens - Final Urine,Voided 08/24/25 12:45 Legionella Urinary Antigen - Final Urine,Voided A&P Assessment and plan 1. Acute respiratory failure with hypoxia: Subjectively he is feeling a bit better, but not improved in terms of oxygenation. Today also renal function is worse, creatinine up to 4.2 BUN 52. Given a dose of albumin. Discussed with nephrology, appreciate consultation. Will hold further Bumex for now. Reassess renal function, reassess volume status. Continue to hold Eliquis. Pending consideration of thoracentesis, will plan for tomorrow as discussed with him. Will request for cytology for additional assessment of right upper lobe mass. Heparin anticoagulation in meantime for PE. Continue treatment of COPD exacerbation, continue antibiotic coverage, IV corticosteroid, breathing treatments. Reviewed vitals, reviewed CBC, noted persistent leukocytosis. Reviewed urine bacterial antigens, Legionella antigen, noted negative. 2. COPD exacerbation: Worsening cough, increased sputum; requiring more oxygen than baseline. Reviewed sputum culture, so far and collected. - Administer DuoNeb treatments. - cont systemic corticosteroids (Solu-Medrol/methylprednisolone). Monitor for risk of hypotension, gastritis, encephalopathy, hyperglycemia. - Begin parenteral antibiotic coverage for COPD exacerbation, possible pneumonia. 3. Acute exacerbation of CHF (congestive heart failure): History of CHF with edema and markedly elevated NT-proBNP reported historically. - hold IV diuretics (IV bumetanide) -Complete troponin EKG series with noted moderate troponin elevation. 4. Pleural effusion: Pleural effusion noted on computed tomography (CT). - Obtain chest ultrasound to further assess pleural effusion. - Consider drainage for symptom relief and send fluid for testing if sufficient; evaluate for abnormal cells. 5. Mass of upper lobe of right lung: Right upper lobe opacity on CT concerning for mass; less likely pneumonia by report. - Send pleural fluid for cytology if drained to aid in evaluation of right upper lobe finding. Discussed with him plans for thoracentesis tomorrow, and we will plan to obtain cytology. 6. Pulmonary emboli: Noted acute on chronic anemia today, hemoglobin down to 7.3. Recheck hemoglobin requested, reviewed, 7.8. Obtain iron studies. CT angiogram shows emboli in lower lobe pulmonary arteries; patient recently had interruption of apixaban. - Start anticoagulation with intravenous heparin drip initially; consider transition back to apixaban if appropriate. - Obtain transthoracic echocardiogram (TTE) to assess cardiac status in the setting of PE and heart failure. 7. Troponin level elevated: Complete troponin EKG series, assess for cardiac ischemia. Suspect type II MD with respiratory failure. PE. Reviewed limited TTE. Monitor on telemetry with risk of arrhythmia. 8. Pulmonary hypertension: Resumed his usual medication with Adempas and Opsumit. 9. Chest pain: Chest pain radiating across chest and posterior neck since previous afternoon. Suspect combination due to the respiratory process as above, including PE. Complete troponin EKG series as above assess for cardiac ischemia. Reviewed reviewed reviewedReviewed limited TTE. Plan: Nausea and vomiting : Without recurrence, he requested to advance diet and is tolerating it so far. Prior to presentation Two episodes of vomiting yesterday with abdominal pain; nausea present. - Provide antiemetics (e.g., ondansetron) as needed. - acid-shaka medication. Diarrhea : Patient reports diarrhea, suspects antibiotic-related. - Check for Clostridioides difficile (C. diff). Chronic kidney disease : CKD with recent baseline creatinine ~3.5; not on dialysis; vein mapping planned. - Monitor renal status during admission. Osteomyelitis : On intravenous antibiotics via PICC. - Confirm current antibiotic regimen and continue -ceftriaxone 1 g daily via PICC line H. pylori infection : Diagnosed on recent scope; on two oral antibiotics. - Resumed oral antibiotics for H. pylori. Follow-up : Care coordination during hospitalization. - Reschedule previously planned wound care appointment (noted for 08:45). - Discussed code status; patient agrees to full resuscitation if needed. PDMP PDMP Reviewed: Not Reviewed Attestations 2 Medical Necessity Statement*: Continue admission for assessment and management of respiratory failure, COPD exacerbation, acute CHF in setting of worsening renal function, possible acute renal failure on chronic kidney disease, PE, anticoagulation, acute anemia, pleural effusion, possible right upper lobe mass. and High MDM includes amount and/or complexity of data reviewed/ordered [ resulted lab(s)/test(s), ordered lab(s)/test(s) and other healthcare professional discussion] and described risk of complication, morbidity or mortality of management as documented Diagnoses Acute respiratory failure with hypoxia J96.01 COPD exacerbation J44.1 Acute exacerbation of CHF (congestive heart failure) I50.9 Heart failure type: unspecified Pleural effusion J90 Mass of upper lobe of right lung R91.8 Pulmonary emboli I26.99 Troponin level elevated R79.89 Pulmonary hypertension I27.20 Chest pain R07.9
--- NOTE | 2025-08-25 11:18 | PM.CONSULT ---
Providers/Reason For Consult Consulting Physician/Specialty*: [facility]/NEPHROLOGY Reason for Consult*: ESRD Attending Physician: Freeman Rodriguez Primary Care Provider: Patrick Nick MD History of Present Illness History of Present Illness Guy Wiseman is a 70 year old male , Patient is a 70-year-old male with past medical history of COPD, home O2, diabetes, CHF, coronary artery disease chronic kidney disease stage IV/V followed by nephrology in [place], history of PE history of TAVR, presented complaining of shortness of breath. Vein mapping and fistula placement planned as outpatient per nephrology. Patient also complaining of cough. Vital signs are stable except for tachycardia on presentation, lab data significant for creatinine of 3.5 hemoglobin of 8.7 and metabolic acidosis with a bicarbonate of 17. Patient is admitted with acute respiratory failure with hypoxia. Also underwent CT angiogram to rule out pulmonary embolism Medications/Allergies Home Medications ?Medication ?Instructions ?Recorded ?Confirmed ?Last Taken ?Type Cam boot to left #1 ea 05/15/23 08/24/25 08/19/25 Rx bumetanide 1 mg tablet 2 mg PO DAILY 11/27/23 08/24/25 08/23/25 History Held on 08/07/25. Instructions: Resume on 08/10/25. resume bumex 1mg on sunday levothyroxine 112 mcg tablet 112 mcg PO DAILY 11/27/23 08/24/25 08/23/25 History riociguat 2.5 mg tablet (Adempas) 2.5 mg PO TID 11/27/23 08/24/25 08/23/25 History Diabetic shoes #1 ea 08/25/24 08/24/25 08/19/25 Rx CAM walker #1 ea 04/20/25 08/24/25 08/19/25 Rx acetaminophen 500 mg tablet 1,000 mg PO Q6H PRN Fever Or Pain 07/18/25 08/24/25 08/19/25 History (Tylenol Extra Strength) apixaban 5 mg tablet (Eliquis) 5 mg PO BID 07/18/25 08/24/25 08/23/25 History Held on 08/07/25. Instructions: Resume on 08/14/25. atorvastatin 40 mg tablet 40 mg PO DAILY 08/08/24/25 08/23/25 History macitentan 10 mg tablet (Opsumit) 10 mg PO DAILY 08/02/25 08/24/25 08/23/25 History hydrocodone 5 mg-acetaminophen 325 1 tab PO Q8H PRN pain 4 days #12 08/03/25 08/24/25 08/19/25 Rx mg tablet tabs pantoprazole 40 mg tablet,delayed 40 mg PO BID 30 days #60 tabs 08/07/25 08/24/25 08/23/25 Rx release (Protonix) sucralfate 1 gram tablet (Carafate) 1 g PO BID 4 weeks #56 tabs 08/07/25 08/24/25 08/23/25 Rx levofloxacin 500 mg tablet 500 mg PO DAILY #7 tabs 08/17/25 08/24/25 08/23/25 Rx clarithromycin 500 mg tablet 500 mg PO BID 14 days #28 tabs 08/19/25 08/24/25 08/23/25 Rx metronidazole 500 mg tablet 500 mg PO BID 14 days #28 tabs 08/19/25 08/24/25 08/23/25 Rx ceftriaxone 1 gram solution for 1 g IV DAILY 08/24/25 08/24/25 08/19/25 History injection Allergies Allergy/AdvReac Type Severity Reaction Status Date / Time No Known Allergies Allergy Verified 08/24/25 01:13 Current Medications Generic Name Dose Route Start Last Admin Trade Name Freq PRN Reason Stop Dose Admin Albuterol/Ipratropium 3 ml 08/24/25 14:00 08/25/25 08:00 Ipratropium-Albuterol 3 Ml Neb INHALATION 3 ml Q6H.RESP CHUY Administration Bumetanide 2 mg 08/24/25 16:00 08/25/25 06:30 Bumetanide 0.25 Mg/Ml Sdv 10 Ml IVP 2 mg On Hold: 08/25/25 11:10 BID@0600,1600 CHUY Administration Ceftriaxone Sodium 1,000 mg 08/24/25 10:30 08/25/25 11:03 Ceftriaxone 1,000 Mg Sdv IVP 1,000 mg Q24H CHUY Administration Protocol Clarithromycin 500 mg 08/25/25 09:00 08/25/25 08:46 Clarithromycin 500 Mg Tablet PO 500 mg BID CHUY Administration Protocol Heparin Sodium/Sodium Chloride 25,000 unit in 500 mls @ 0 mls/hr 08/24/25 09:15 08/25/25 11:15 Heparin Drip IV Not Given CONT CHUY Protocol Per Protocol Insulin Human Lispro 0 unit 08/24/25 12:00 08/25/25 08:29 Insulin Lispro 100 Unit/1 Ml SUBCUT 12 unit WM&BEDTIME CHUY Administration Protocol Levofloxacin 500 mg 08/25/25 08:25 08/25/25 08:45 Levofloxacin 500 Mg Tablet PO 500 mg DAILY CHUY Administration Protocol Levothyroxine Sodium 112 mcg 08/25/25 08:25 08/25/25 08:46 Levothyroxine 112 Mcg Tablet PO 112 mcg DAILY CHUY Administration Methylprednisolone Sodium Succinate 30 mg 08/24/25 10:30 08/25/25 11:03 Methylprednisolone Sod Succ 40 Mg/Ml Inj IVP 30 mg Q8H CHUY Administration Metronidazole 500 mg 08/25/25 08:25 08/25/25 08:46 Metronidazole 500 Mg Tablet PO 500 mg BID CHUY Administration Pantoprazole Sodium 40 mg 08/24/25 09:15 08/25/25 08:27 Pantoprazole 40 Mg Sdv IVP 40 mg Q12H CHUY Administration Sucralfate 1 gm 08/25/25 08:25 08/25/25 08:46 Sucralfate 1 Gm Tablet PO 1 gm BID CHUY Administration PFSH Acute PFSH: Medical History (Updated 08/24/25 @ 10:46 by Freeman Rodriguez MD) Pericardial effusion Tobacco abuse Anemia Diabetes Warfarin anticoagulation Chest pain History of pulmonary embolism Congestive heart failure History of nonmelanoma skin cancer Hypothalamic hypothyroidism Hypertension History of blood clots COPD (chronic obstructive pulmonary disease) History of pulmonary embolism Surgical History S/P TAVR (transcatheter aortic valve replacement) History of rotator cuff surgery Social History (Updated 08/24/25 @ 09:38 by Freeman Rodriguez MD) Smoking and tobacco/nicotine status: former use of tobacco/nicotine Quit status (tobacco/nicotine): has quit using Year quit tobacco: 2024 Former quit date comment: a week ago Alcohol intake: never Substance/Drug Use: never Marital status: Life Partner Vitals/I&O/Wt Last Vital Signs Temp 98.0 F 08/25/25 07:35 Pulse 100 08/25/25 08:00 Resp 18 08/25/25 08:00 BP 123/48 08/25/25 07:35 Pulse Ox 95 08/25/25 08:00 O2 Del Method Nasal Cannula 08/25/25 08:00 O2 Flow Rate 6 08/25/25 08:00 08/24/25 08/25/25 08/25/25 22:59 06:59 14:59 Intake Total 390 / 1110 721.8 / 1831.8 440 / 440 Output Total 200 / 200 Balance 390 / 1110 521.8 / 1631.8 440 / 440 Weight last 48 hrs Weight 74.1 kg Weight 74.1 kg Weight 75.75 kg Weight 75.841 kg Physical Exam Narrative: Awake alert, no distress HEENT On 6 L O2 by nasal cannula No JVD S1-S2 regular rate and rhythm Lungs with decreased breath sounds bilaterally Abdomen soft nontender No pedal edema Data 08/25/25 09:53 08/25/25 05:37 Micro: Microbiology 08/25/25 04:15 Bacterial Antigens - Final Urine,Voided 08/24/25 12:45 Legionella Urinary Antigen - Final Urine,Voided A&P Assessment and plan 1. Acute on chronic kidney failure: Plan: 1. Acute on chronic kidney disease stage IV/V: Baseline creatinine seems to be in the 3 range, followed by nephrology at [place]. Outpatient AV fistula and vein mapping planned. - Patient received IV contrast, creatinine has gotten worse today to 4.2, also requiring more oxygen than his baseline up to 6 L O2 by nasal cannula. - Electrolytes are stable except mild hyponatremia and metabolic acidosis. - There is no acute indication for dialysis today, will hold diuretics temporarily - If no improvement in renal function will request tunneled catheter placement and initiate hemodialysis. Patient agreeable. 2. Acute on chronic respiratory failure: Multifactorial in the setting of lung mass versus consolidation, pleural effusion , status post diuretics due to possible volume overload which are on hold now 3. Metabolic acidosis: Mild, in the setting of advanced renal insufficiency, will add Bicitra 4. Anemia: Hemoglobin of 7.8, will order JENNY 5. History of coronary artery disease, cardiomyopathy and CHF 6. History of TAVR Patient evaluated using audiovisual cart. Time spent 40 minutes. PDMP PDMP Reviewed: Not Reviewed Coding Level of Care Code Acute Code for Chg Fwd Diagnoses Acute on chronic kidney failure N17.9; N18.9
[2025-08-25] MEDS: heparin drip 25,000 UNIT/500 ML PREMIX 19 UNIT IV (14:41)
[2025-08-25] MEDS: citric acid-sodium citrate 30 mL UDC PO (16:03)
[2025-08-25 16:40] LABS: Partial Thromboplastin Time 69.3 SECONDS (23.9-36.7)
[2025-08-25 23:05] LABS: Partial Thromboplastin Time 60.1 SECONDS (23.9-36.7)
[2025-08-26] VITALS (9 sets, daily range): BP systolic 98–128; BP diastolic 48–78; PULSE 94–103; RESP 13–20; TEMP 36.6–36.8; O2SAT 89–95
[2025-08-26] MEDS: methylPREDNISolone sod succ 40 mg/mL INJ 30 MG IVP ×3 (01:49→17:10)
[2025-08-26 05:23] LABS: Hematocrit 23.8 % (37-53); Hemoglobin 7.40 g/dL (11.27-16.99); Mean Corpuscular HGB Conc 31.1 g/dL (30-55); Mean Corpuscular Hemoglobin 28.1 pg (27-33); Mean Corpuscular Volume 90.5 fl (82-101); Nucleated Red Blood Cells % 0 %; Platelet Count 132 10^3/cmm (157-399); Red Blood Count 2.63 10^6/uL (3.85-5.65); White Blood Count 12.13 10^3/uL (3.29-11.43)
[2025-08-26 05:44] LABS: Alanine Aminotransferase 10 U/L (0-41); Albumin Level 3.3 g/dL (3.5-5.2); Alkaline Phosphatase 220 U/L (40-130); Anion Gap 24.2 (5-19); Aspartate Amino Transferase 24 U/L (0-40); Blood Urea Nitrogen 76 mg/dL (8-23); Calcium 8.3 mg/dL (8.5-10.5); Carbon Dioxide 15 mmol/L (22-29); Chloride 99 mmol/L (98-107); Creatinine Clr Calc Pharmacy 12.3191; Globulin 2.9 g/dL (1.3-4.6); Glucose 192 mg/dL (65-115); Osmolality Calculated 306 mOsm/kg (285-295); Potassium 4.2 mmol/L (3.5-5.1); Sodium 134 mmol/L (136-145); Total Protein 6.2 g/dL (6.6-8.7)
[2025-08-26] MEDS: ondansetron 2 mg/ML SDV 2 mL 4 MG IVP ×2 (06:13→22:47)
[2025-08-26 06:29] LABS: Partial Thromboplastin Time 61.7 SECONDS (23.9-36.7)
[2025-08-26] MEDS: pantoprazole 40 mg SDV IVP ×2 (08:10→21:11)
--- NOTE | 2025-08-26 08:27 | PC.SOCIAL ---
IMM Update pg 2 of IMM Updated and reviewed w/ patient. Copy provided and copy dated, initialed and placed in chart.
--- NOTE | 2025-08-26 09:14 | PC.CHAP ---
Pastoral Care Encounter/Spiritual Assessment Type of Contact [] Declined awnings mechanic visit [] Patient/Family/Request visit [] Outpatient visit [] Follow-up visit [] Physician referral [] Code/Alert [] Routine visit [] Staff referral [] Actively dying [] Patient sleeping [] Family support [] [] Out of room [] Palliative care [] [x] Receiving care in room [] Pre-surgical visit [] Trauma [] Long length of stay [] ICU visit [] Other: Relational/Emotional Strength [] Patient feels connected with others/family/visitors/staff [] Distress [] Loneliness/isolation [] Abandonment Spirituality of Patient [] Person of [place] [] Attends [facility] of their [place] [] Believes in Prayer [] Reads Bible or Advent materials [] There are Spiritual issues to be addressed Sewer And Inspector Interventions [] Prayer [] Active listening [] Non-anxious presence [] Spiritual/emotional support [] Crisis/trauma care [] Spiritual counseling [] Bereavement support [] Provided bereavement packet [] Provided Bible/devotional materials [] Provided toy/stuffed animal, coloring book to patient or family member [] Provided Communion [] Anointing/[place] [] Salvation [] Completed spiritual assessment [] Other: Impact on Illness or Injury [] Angry [] Fearful [] Anxious [] Often cries [] Exhaustion [] Unable to work [] Unable to attend mandaen [] Unable to walk/stand [] Unable to read [] Unable to drive [] Unable to eat/drink [] Unable to sleep [] Unable to be with family [] Patient intubated [] Other: Summary Time spent with patient
--- NOTE | 2025-08-26 09:31 | PM.PN ---
Subjective Subjective: c/o SOB with exertion Medications: Reviewed: Yes Vitals/I&O/Wt Last Vital Signs Temp 98.0 F 08/26/25 08:00 Pulse 99 08/26/25 08:00 Resp 18 08/26/25 08:00 BP 102/78 08/26/25 08:00 Pulse Ox 91 08/26/25 08:00 O2 Del Method Nasal Cannula 08/26/25 08:00 O2 Flow Rate 6 08/26/25 08:00 08/25/25 08/26/25 08/26/25 22:59 06:59 14:59 Intake Total 660 / 1593.2 423.366 / 2015.566 Output Total 0 / 0 0 / 0 Balance 660 / 1593.2 423.366 / 2015.566 Weight last 48 hrs Weight 75.098 kg Weight 74.1 kg Weight 74.1 kg Physical Exam Narrative: Awake alert, no distress HEENT On 6 L O2 by nasal cannula No JVD S1-S2 regular rate and rhythm Lungs with decreased breath sounds bilaterally Abdomen soft nontender No pedal edema Data 08/26/25 05:00 08/26/25 05:00 Micro: Microbiology 08/25/25 04:15 Bacterial Antigens - Final Urine,Voided A&P Assessment and plan 1. Acute on chronic kidney failure: Plan: 1. Acute on chronic kidney disease stage IV/V: Baseline creatinine seems to be in the 3 range, followed by nephrology at [place]. Outpatient AV fistula and vein mapping planned. - Patient received IV contrast, creatinine has gotten worse today to 5.1, also requiring more oxygen than his baseline up to 6 L O2 by nasal cannula. -Noted mild hyponatremia and metabolic acidosis. - Requested tunneled catheter placement and plan to initiate hemodialysis. Patient agreeable. 2. Acute on chronic respiratory failure: Multifactorial in the setting of lung mass versus consolidation, PE , pleural effusion , 3. Metabolic acidosis: Mild, in the setting of advanced renal insufficiency, will add Bicitra 4. Anemia: Hemoglobin of 7.8, will order JENNY 5. History of coronary artery disease, cardiomyopathy and CHF 6. History of TAVR Patient evaluated using audiovisual cart. Time spent 40 minutes. PDMP PDMP Reviewed: Not Reviewed Attestations Medical Necessity Statement*: per popeye Coding Level of Care Code Acute Code for Chg Fwd Diagnoses Acute on chronic kidney failure N17.9; N18.9
--- NOTE | 2025-08-26 11:13 | US_ITS ---
WS: [id number] ULTRASOUND-GUIDED THORACENTESIS, RIGHT HISTORY: RIGHT pleural effusion. Procedure, risks, and complications were explained to the patient. With the patient in an upright position, the skin over the RIGHT posterior thorax was cleansed with ChloraPrep and anesthetized with 1% buffered lidocaine. A 5 Vietnamese Yueh needle is inserted into the pleural fluid without complication. Approximately 500 cc of clear pleural fluid is removed without difficulty. Pleural fluid specimen collected for analysis as requested. / thoracentesis [id number] IMPRESSION: 1. RIGHT thoracentesis yielding 500 cc of fluid. 2. Chest radiograph to follow to evaluate for pneumothorax.
[2025-08-26] MEDS: cefTRIAXone 1,000 mg SDV 1000 MG IVP (11:21)
--- NOTE | 2025-08-26 11:38 | P.PN_ITS ---
Subjective 2 Subjective: Ultimately he is feeling about the same. He states that he was needing more oxygen overnight, but today his breathing has been steady . Vitals/I&O/Wt Last Vital Signs Temp 98.0 F 08/26/25 08:00 Pulse 99 08/26/25 08:00 Resp 18 08/26/25 08:00 BP 102/78 08/26/25 08:00 Pulse Ox 91 08/26/25 08:00 O2 Del Method Nasal Cannula 08/26/25 08:00 O2 Flow Rate 6 08/26/25 08:00 08/25/25 08/26/25 08/26/25 22:59 06:59 14:59 Intake Total 660 / 1593.2 423.366 / 2015.566 240 / 240 Output Total 0 / 0 0 / 0 Balance 660 / 1593.2 423.366 / 2015.566 240 / 240 Weight last 48 hrs Weight 75.098 kg Weight 74.1 kg Weight 74.1 kg Physical Exam 2 Const: COMMON NORMALS: patient oriented x3 and alert GENERAL APPEARANCE: c ooperative ORIENTATION/CONSCIOUSNESS: Yes awake HENMT: COMMON NORMALS: oropharynx normal Neck/C-Spine: COMMON NORMALS: no JVD Resp: COMMON NORMALS: normal respiratory effort AUSCULTATION: diminished lung sounds (R lower) Cardio: COMMON NORMALS: no JVD, regular rhythm, S1 normal heart sound present, S2 normal heart sound present and No murmurs present (Cardio) RHYTHM: regular rhythm HEART SOUNDS: S1 normal heart sound present and S2 normal heart sound present GI: COMMON NORMALS: Normal to inspection, nondistended, normoactive bowel sounds present, Soft to palpation and non-tender PALPATION: Yes Soft to palpation Extremity: COMMON NORMALS: no joint enlargement and no pedal edema GENERAL: Yes edema (1+) OTHER: RUE PICC Neuro: COMMON NORMALS: patient oriented x3 and moves all extremities S ENSORIUM/ORIENTATION: Yes alert Skin: COMMON NORMALS: no rashes or lesions noted GENERAL SKIN EXAM: no rashes or lesions noted Data 08/26/25 05:00 08/26/25 05:00 Micro: Microbiology 08/25/25 04:15 Bacterial Antigens - Final Urine,Voided A&P Assessment and plan 1. Acute respiratory failure with hypoxia: Overnight worsening oxygen requirement up to 7 L and persistent respiratory failure. Slightly better today down to 5 to 6 L on nasal cannula. However, discussed with him and his significant other we were not able to continue his diuretics yesterday due to worsening renal function. Continue treatment of COPD exacerbation, possible pneumonia, continue antibiotics, IV corticosteroids. She did have nausea and vomiting last night. With risk of gastritis. Continue IV Protonix every 12 hours, sucralfate. Continues medications for pulmonary hypertension. With risk of easy fluid overload, with worsening renal function, discussed with nephrology, consideration of obtaining access to initiate hemodialysis. Reviewed blood culture, so far without growth. Sputum culture so far collected. Eliquis post has been on hold. Discussed with nursing staff, requested thoracentesis. Will obtain cytologies. Obtain cell count and differential, Gram stain culture, pH, LDH, protein. Discussed with pulmonology specialist, appreciate consultation with regards to consideration of biopsy, possibility of bronchoscopy with biopsy and timing. Discussed with case management. 2. Acute kidney injury superimposed on CKD: Worsening renal function with possible acute renal failure. Reviewed chemistry, intake and output. Bumex has been on hold. BUN 76, creatinine 5.1. Discussed with nephrology, with concern for ED fluid overload, respiratory failure, underlying CHF, plans to start preparations for renal placement therapy with request for tunneled hemodialysis catheter. Discussed with surgery, appreciate consultation. Tentative plans for catheter placement tomorrow. Discussed with nursing staff, will need to hold heparin drip as prescribed for surgery at least 1 hour before procedure. As per discussion with patient's significant other with procedure tentatively planned for tomorrow will place n.p.o. after midnight tonight. 3. COPD exacerbation: Worsening cough, increased sputum; requiring more oxygen than baseline. Reviewed sputum culture, so far and collected. - Administer DuoNeb treatments. - cont systemic corticosteroids (Solu-Medrol/methylprednisolone). Monitor for risk of hypotension, gastritis, encephalopathy, hyperglycemia. - Continue parenteral antibiotic coverage for COPD exacerbation, possible pneumonia. Continue ceftriaxone, clarithromycin. 4. Acute exacerbation of CHF (congestive heart failure): History of CHF with edema and markedly elevated NT-proBNP reported historically. - hold IV diuretics (IV bumetanide) due to worsening renal function -Complete troponin EKG series with noted moderate troponin elevation. 5. Pleural effusion: Pleural effusion noted on computed tomography (CT). Heparin drip held since this morning. Pending thoracentesis. - Obtain chest ultrasound to further assess pleural effusion. - Consider drainage for symptom relief and send fluid for testing if sufficient; evaluate for abnormal cells. 6. Mass of upper lobe of right lung: Right upper lobe opacity on CT concerning for mass; less likely pneumonia by report. - Send pleural fluid for cytology if drained to aid in evaluation of right upper lobe finding. Discussed with him plans for thoracentesis today, and we will plan to obtain cytology. 7. Pulmonary emboli: Noted acute on chronic anemia today, hemoglobin down to 7.3. Recheck hemoglobin requested, reviewed, 7.8. Obtain iron studies. Heparin drip on hold, to resume after thoracentesis. CT angiogram shows emboli in lower lobe pulmonary arteries; patient recently had interruption of apixaban. - On anticoagulation with intravenous heparin drip; consider transition back to apixaban if appropriate. - Reviewed transthoracic echocardiogram (TTE) to assess cardiac status in the setting of PE and heart failure. 8. Troponin level elevated: Reviewed troponin EKG series, assess for cardiac ischemia. Suspect type II NH with respiratory failure. PE. Reviewed limited TTE. Monitor on telemetry with risk of arrhythmia. 9. Pulmonary hypertension: Resumed his usual medication with Adempas and Opsumit. 10. Chest pain: Chest pain radiating across chest and posterior neck since previous afternoon. Suspect combination due to the respiratory process as above, including PE. Complete troponin EKG series as above assess for cardiac ischemia. Reviewed reviewed reviewedReviewed limited TTE. Plan: Nausea and vomiting : Without recurrence, he requested to advance diet and is tolerating it so far. Prior to presentation Two episodes of vomiting yesterday with abdominal pain; nausea present. - Provide antiemetics (e.g., ondansetron) as needed. - acid-shaka medication. Diarrhea : Patient reports diarrhea, suspects antibiotic-related. - Check for Clostridioides difficile (C. diff). Chronic kidney disease : CKD with recent baseline creatinine ~3.5; not on dialysis; vein mapping planned. - Monitor renal status during admission. Osteomyelitis : On intravenous antibiotics via PICC. - Confirm current antibiotic regimen and continue -ceftriaxone 1 g daily via PICC line H. pylori infection : Diagnosed on recent scope; on two oral antibiotics. - Resumed oral antibiotics for H. pylori. Follow-up : Care coordination during hospitalization. - Reschedule previously planned wound care appointment (noted for 08:45). - Discussed code status; patient agrees to full resuscitation if needed. PDMP PDMP Reviewed: Not Reviewed Attestations 2 Medical Necessity Statement*: Continue admission/management of continued respiratory failure with hypoxia, COPD exacerbation, possible pneumonia, recurrence of PE, pleural effusion, acute CHF, CKD with GT with possible acute renal failure, suspected right upper lobe mass. and High MDM includes amount and/or complexity of data reviewed/ordered [ resulted lab(s)/test(s), ordered lab(s)/test(s) and independent test interpretation] and described risk of complication, morbidity or mortality of management as documented Diagnoses Acute respiratory failure with hypoxia J96.01 Acute kidney injury superimposed on CKD N17.9; N18.9 COPD exacerbation J44.1 Acute exacerbation of CHF (congestive heart failure) I50.9 Heart failure type: unspecified Pleural effusion J90 Mass of upper lobe of right lung R91.8 Pulmonary emboli I26.99 Troponin level elevated R79.89 Pulmonary hypertension I27.20 Chest pain R07.9
--- NOTE | 2025-08-26 11:54 | PM.CONSULT ---
Providers/Reason For Consult Consulting Physician/Specialty*: dr fishman general surgery Reason for Consult*: tunneled dialysis catheter Attending Physician: Freeman Rodriguez Primary Care Provider: Patrick Nick MD History of Present Illness History of Present Illness Guy Wiseman is a 70 year old male whom surgery was consulted to place a tunneled dialysis catheter. CKD. No other relevant PMH/PSH. Medications/Allergies Home Medications ?Medication ?Instructions ?Recorded ?Confirmed ?Last Taken ?Type Cam boot to left #1 ea 05/15/23 08/24/25 08/19/25 Rx bumetanide 1 mg tablet 2 mg PO DAILY 11/27/23 08/24/25 08/23/25 History Held on 08/07/25. Instructions: Resume on 08/10/25. resume bumex 1mg on sunday levothyroxine 112 mcg tablet 112 mcg PO DAILY 11/27/23 08/24/25 08/23/25 History riociguat 2.5 mg tablet (Adempas) 2.5 mg PO TID 11/27/23 08/24/25 08/23/25 History Diabetic shoes #1 ea 08/25/24 08/24/25 08/19/25 Rx CAM walker #1 ea 04/20/25 08/24/25 08/19/25 Rx acetaminophen 500 mg tablet 1,000 mg PO Q6H PRN Fever Or Pain 07/18/25 08/24/25 08/19/25 History (Tylenol Extra Strength) apixaban 5 mg tablet (Eliquis) 5 mg PO BID 07/18/25 08/24/25 08/23/25 History Held on 08/07/25. Instructions: Resume on 08/14/25. atorvastatin 40 mg tablet 40 mg PO DAILY 07/18/25 08/24/25 08/23/25 History macitentan 10 mg tablet (Opsumit) 10 mg PO DAILY 08/02/25 08/24/25 08/23/25 History hydrocodone 5 mg-acetaminophen 325 1 tab PO Q8H PRN pain 4 days #12 08/03/25 08/24/25 08/19/25 Rx mg tablet tabs pantoprazole 40 mg tablet,delayed 40 mg PO BID 30 days #60 tabs 09/08/24/25 08/23/25 Rx release (Protonix) sucralfate 1 gram tablet (Carafate) 1 g PO BID 4 weeks #56 tabs 08/07/25 08/24/25 08/23/25 Rx levofloxacin 500 mg tablet 500 mg PO DAILY #7 tabs 08/17/25 08/24/25 08/23/25 Rx clarithromycin 500 mg tablet 500 mg PO BID 14 days #28 tabs 08/19/25 08/24/25 08/23/25 Rx metronidazole 500 mg tablet 500 mg PO BID 14 days #28 tabs 08/19/25 08/24/25 08/23/25 Rx ceftriaxone 1 gram solution for 1 g IV DAILY 08/24/25 08/24/25 08/19/25 History injection Allergies Allergy/AdvReac Type Severity Reaction Status Date / Time No Known Allergies Allergy Verified 08/24/25 01:13 Current Medications Generic Name Dose Route Start Last Admin Trade Name Freq PRN Reason Stop Dose Admin Acetaminophen 650 mg 08/24/25 09:02 08/25/25 21:12 Acetaminophen 325 Mg Tablet PO 650 mg Q6H PRN Administration Mild/Mod Pain Or Temp >/= 101 Albuterol/Ipratropium 3 ml 08/24/25 14:00 08/26/25 08:46 Ipratropium-Albuterol 3 Ml Neb INHALATION Not Given Q6H.RESP CHUY Bumetanide 2 mg 08/24/25 16:00 08/25/25 06:30 Bumetanide 0.25 Mg/Ml Sdv 10 Ml IVP 2 mg On Hold: 08/25/25 11:10 BID@0600,1600 CHUY Administration Ceftriaxone Sodium 1,000 mg 08/24/25 10:30 08/26/25 11:21 Ceftriaxone 1,000 Mg Sdv IVP 1,000 mg Q24H CHUY Administration Protocol Clarithromycin 500 mg 08/25/25 09:00 08/26/25 05:13 Clarithromycin 500 Mg Tablet PO 500 mg BID CHUY Administration Protocol Heparin Sodium/Sodium Chloride 25,000 unit in 500 mls @ 0 mls/hr 08/24/25 09:15 08/26/25 06:39 Heparin Drip IV 12.54 unit/kg/hr On Hold: 08/26/25 08:25 CONT CHUY 19 mls/hr Protocol Titration Per Protocol Insulin Human Lispro 0 unit 08/24/25 12:00 08/26/25 11:22 Insulin Lispro 100 Unit/1 Ml SUBCUT 4 unit WM&BEDTIME CHUY Administration Protocol Levothyroxine Sodium 112 mcg 08/25/25 08:25 08/26/25 05:13 Levothyroxine 112 Mcg Tablet PO 112 mcg DAILY CHUY Administration Methylprednisolone Sodium Succinate 30 mg 08/24/25 10:30 08/26/25 11:21 Methylprednisolone Sod Succ 40 Mg/Ml Inj IVP 30 mg Q8H CHUY Administration Metronidazole 500 mg 08/25/25 08:25 08/26/25 05:13 Metronidazole 500 Mg Tablet PO 500 mg BID CHUY Administration Ondansetron HCl 4 mg 08/24/25 09:02 08/26/25 06:13 Ondansetron 2 Mg/Ml Sdv 2 Ml IVP 4 mg Q4H PRN Administration vomiting, or N/V if npo Pantoprazole Sodium 40 mg 08/24/25 09:15 08/26/25 08:10 Pantoprazole 40 Mg Sdv IVP 40 mg Q12H CHUY Administration Sucralfate 1 gm 08/25/25 08:25 08/26/25 05:13 Sucralfate 1 Gm Tablet PO 1 gm BID CHUY Administration PFSH Acute PFSH: Medical History (Updated 08/26/25 @ 20:06 by Alfred Lezama MD) Mediastinal lymphadenopathy Lung mass Pericardial effusion Tobacco abuse Anemia Diabetes Warfarin anticoagulation Chest pain History of pulmonary embolism Congestive heart failure History of nonmelanoma skin cancer Hypothalamic hypothyroidism Hypertension History of blood clots COPD (chronic obstructive pulmonary disease) History of pulmonary embolism Surgical History S/P TAVR (transcatheter aortic valve replacement) History of rotator cuff surgery Social History (Updated 08/24/25 @ 09:38 by Freeman Rodriguez MD) Smoking and tobacco/nicotine status: former use of tobacco/nicotine Quit status (tobacco/nicotine): has quit using Year quit tobacco: 2024 Former quit date comment: a week ago Alcohol intake: never Substance/Drug Use: never Marital status: Life Partner Vitals/I&O/Wt Last Vital Signs Temp 98.0 F 08/26/25 08:00 Pulse 99 08/26/25 08:00 Resp 18 08/26/25 08:00 BP 102/78 08/26/25 08:00 Pulse Ox 91 08/26/25 08:00 O2 Del Method Nasal Cannula 08/26/25 08:00 O2 Flow Rate 6 08/26/25 08:00 08/25/25 08/26/25 08/26/25 22:59 06:59 14:59 Intake Total 660 / 1593.2 423.366 2015.566 240 / 240 Output Total 0 / 0 0 / 0 Balance 660 / 1593.2 423.366 2015.566 240 / 240 Weight last 48 hrs Weight 165 lb 9 oz Weight 163 lb 5.8 oz Weight 163 lb 5.8 oz Physical Exam Narrative: neck grossly normal rrr unlabored breathing ra abdomen soft, nt, nd Data 08/27/25 03:02 08/27/25 03:02 Micro: Microbiology 08/25/25 04:15 Bacterial Antigens - Final Urine,Voided A&P Assessment and plan 1. Acute kidney injury superimposed on CKD: Plan: 70yo male whom surgery was consulted to place a tunneled dialysis catheter. OR 08/27/25. Had an extensive discussion with patient. Discussed the risks and benefits of the procedure. Answered all of this questions. Patient agrees to proceed. PDMP PDMP Reviewed: Not Reviewed Coding Level of Care Code 50314 Diagnoses Acute kidney injury superimposed on CKD N17.9; N18.9
--- NOTE | 2025-08-26 11:54 | PM.MISC ---
Miscellaneous Note Note: Consult note to follow. Patient needs tunneled dialysis catheter. Ate today. Will plan for OR 08/27. Hold hep gtt one hour prior to OR. Discussed with hospitalist.
--- NOTE | 2025-08-26 14:55 | XRR_ITS ---
PROCEDURE INFORMATION: Exam: XR Chest Exam date and time: 08/26/2025 3:00 PM Age: 70 years old Clinical indication: Device placement; Other: S/P thoracentesis TECHNIQUE: Imaging protocol: Radiologic exam of the chest. Views: 1 view. COMPARISON: CT angio chest PE protcl [id number] 08/24/2025 4:30 AM FINDINGS: Tubes, catheters and devices: Right upper extremity central venous catheter is in place, extending through the subclavian vein, with the tip located at the right atrial orifice. Lungs: No consolidation in the lungs. Pleural spaces: Mild right costophrenic angle blunting suggesting mild right pleural effusion. No pneumothorax. Heart/Mediastinum: Cardiac silhouette is mildly enlarged. Central vascular enlargement is present, consistent with pulmonary venous congestion. Mediastinal size is at the upper limit of normal. Bones/joints: Unremarkable. XR/XR chest 1V portable [id number] IMPRESSION: 1. No pneumothorax. 2. Central vascular enlargement is present, consistent with pulmonary venous congestion. 3. Mild right costophrenic angle blunting suggesting mild right pleural effusion.
[2025-08-26 15:28] LABS: Cyto Order Verification No Order
[2025-08-26 16:38] LABS: Mononuclear %, Pleural Fluid 67 %; Mononuclear, Pleural Fluid # 0.080 10^3/uL; Polynuclear Cells, Pleural # 0.040 10^3/uL; Polynuclear Cells, Pleural % 33 %; WBC Pleural Fluid 120.000 /uL (0-1000)
[2025-08-26 16:54] LABS: Cyto Order Verification No Order
[2025-08-26 16:55] LABS: Appearance, Pleural Fluid CLOUDY (CLEAR); Color, Pleural Fluid Pale Yellow (Pale Yellow); Fluid Laterality RIGHT PLEURAL FLUID; PATH Referral YES; Right Pleural Fluid Right Lung
--- NOTE | 2025-08-26 19:11 | PM.CONSULT ---
Providers/Reason For Consult Consulting Physician/Specialty*: Dr Alfred Lezama Reason for Consult*: Lung mass Attending Physician: Freeman Rodriguez Primary Care Provider: Patrick Nick MD History of Present Illness History of Present Illness Guy Wiseman is a 70 year old male with past medical history of COPD, chronic respiratory failure on 2L NC, smoking, CHF, CKD, prior PE on Eliquis, s/p TAVR, comes in to the ER with c/o shortness of breath and chest pain. Vomited some and coughed up white phlegm. He was admitted to the hospital, dx with pneumonia, and was given lasix, and breathing treatments and steroids. Patient follows up with Dr. Meyer at [facility] for his pulm hypertension as well as mobile qa tester there. CT chest done showed a right upper lobe suspected of cancer and I was consulted. He was incidentally also found to have acute PEs and started on heparin drip. Due to his acute on chronic kidney failure he is being considered to start dialysis. Tunneled catheter needs to be placed, Surgery consulted Medications/Allergies Home Medications ?Medication ?Instructions ?Recorded ?Confirmed ?Last Taken ?Type Cam boot to left #1 ea 05/15/23 08/24/25 08/19/25 Rx bumetanide 1 mg tablet 2 mg PO DAILY 11/27/23 08/24/25 08/23/25 History Held on 08/07/25. Instructions: Resume on 08/10/25. resume bumex 1mg on sunday levothyroxine 112 mcg tablet 112 mcg PO DAILY 11/27/23 08/24/25 08/23/25 History riociguat 2.5 mg tablet (Adempas) 2.5 mg PO TID 11/27/23 08/24/25 08/23/25 History Diabetic shoes #1 ea 08/25/24 08/24/25 08/19/25 Rx CAM walker #1 ea 04/20/25 08/24/25 08/19/25 Rx acetaminophen 500 mg tablet 1,000 mg PO Q6H PRN Fever Or Pain 07/18/25 08/24/25 08/19/25 History (Tylenol Extra Strength) apixaban 5 mg tablet (Eliquis) 5 mg PO BID 07/18/25 08/24/25 08/23/25 History Held on 08/07/25. Instructions: Resume on 08/14/25. atorvastatin 40 mg tablet 40 mg PO DAILY 07/18/25 08/24/25 08/23/25 History macitentan 10 mg tablet (Opsumit) 10 mg PO DAILY 08/02/25 08/24/25 08/23/25 History hydrocodone 5 mg-acetaminophen 325 1 tab PO Q8H PRN pain 4 days #12 08/03/25 08/24/25 08/19/25 Rx mg tablet tabs pantoprazole 40 mg tablet,delayed 40 mg PO BID 30 days #60 tabs 08/07/25 08/24/25 08/23/25 Rx release (Protonix) sucralfate 1 gram tablet (Carafate) 1 g PO BID 4 weeks #56 tabs 08/07/25 08/24/25 08/23/25 Rx levofloxacin 500 mg tablet 500 mg PO DAILY #7 tabs 08/17/25 08/24/25 08/23/25 Rx clarithromycin 500 mg tablet 500 mg PO BID 14 days #28 tabs 08/19/25 08/24/25 08/23/25 Rx metronidazole 500 mg tablet 500 mg PO BID 14 days #28 tabs 08/19/25 08/24/25 08/23/25 Rx ceftriaxone 1 gram solution for 1 g IV DAILY 08/24/25 08/24/25 08/19/25 History injection Allergies Allergy/AdvReac Type Severity Reaction Status Date / Time No Known Allergies Allergy Verified 08/24/25 01:13 Current Medications Generic Name Dose Route Start Last Admin Trade Name Fransiscoq PRN Reason Stop Dose Admin Acetaminophen 650 mg 08/24/25 09:02 08/25/25 21:12 Acetaminophen 325 Mg Tablet PO 650 mg Q6H PRN Administration Mild/Mod Pain Or Temp >/= 101 Albuterol/Ipratropium 3 ml 08/24/25 14:00 08/26/25 15:03 Ipratropium-Albuterol 3 Ml Neb INHALATION Not Given Q6H.RESP CHUY Bumetanide 2 mg 08/24/25 16:00 08/25/25 06:30 Bumetanide 0.25 Mg/Ml Sdv 10 Ml IVP 2 mg On Hold: 08/25/25 11:10 BID@0600,1600 CHUY Administration Ceftriaxone Sodium 1,000 mg 08/24/25 10:30 08/26/25 11:21 Ceftriaxone 1,000 Mg Sdv IVP 1,000 mg Q24H CHUY Administration Protocol Clarithromycin 500 mg 08/25/25 09:00 08/26/25 17:10 Clarithromycin 500 Mg Tablet PO 500 mg BID CHUY Administration Protocol Heparin Sodium/Sodium Chloride 25,000 unit in 500 mls @ 0 mls/hr 08/24/25 09:15 08/26/25 06:39 Heparin Drip IV 12.54 unit/kg/hr On Hold: 08/26/25 08:25 CONT CHUY 19 mls/hr Protocol Titration Per Protocol Insulin Human Lispro 0 unit 08/24/25 12:00 08/26/25 17:09 Insulin Lispro 100 Unit/1 Ml SUBCUT 2 unit WM&BEDTIME CHUY Administration Protocol Levothyroxine Sodium 112 mcg 08/25/25 08:25 08/26/25 05:13 Levothyroxine 112 Mcg Tablet PO 112 mcg DAILY CHUY Administration Methylprednisolone Sodium Succinate 30 mg 08/24/25 10:30 08/26/25 17:10 Methylprednisolone Sod Succ 40 Mg/Ml Inj IVP 30 mg Q8H CHUY Administration Metronidazole 500 mg 08/25/25 08:25 08/26/25 17:10 Metronidazole 500 Mg Tablet PO 500 mg BID CHUY Administration Ondansetron HCl 4 mg 08/24/25 09:02 08/26/25 06:13 Ondansetron 2 Mg/Ml Sdv 2 Ml IVP 4 mg Q4H PRN Administration vomiting, or N/V if npo Pantoprazole Sodium 40 mg 08/24/25 09:15 08/26/25 08:10 Pantoprazole 40 Mg Sdv IVP 40 mg Q12H CHUY Administration Sucralfate 1 gm 08/25/25 08:25 08/26/25 17:10 Sucralfate 1 Gm Tablet PO 1 gm BID CHUY Administration PFSH Acute PFSH: Medical History (Updated 08/26/25 @ 20:06 by Alfred Lezama MD) Mediastinal lymphadenopathy Lung mass Pericardial effusion Tobacco abuse Anemia Diabetes Warfarin anticoagulation Chest pain History of pulmonary embolism Congestive heart failure History of nonmelanoma skin cancer Hypothalamic hypothyroidism Hypertension History of blood clots COPD (chronic obstructive pulmonary disease) History of pulmonary embolism Surgical History S/P TAVR (transcatheter aortic valve replacement) History of rotator cuff surgery Social History (Updated 08/24/25 @ 09:38 by Freeman Rodriguez MD) Smoking and tobacco/nicotine status: former use of tobacco/nicotine Quit status (tobacco/nicotine): has quit using Year quit tobacco: 2024 Former quit date comment: a week ago Alcohol intake: never Substance/Drug Use: never Marital status: Life Partner Vitals/I&O/Wt Last Vital Signs Temp 98.0 F 08/26/25 08:00 Pulse 95 08/26/25 16:00 Resp 18 08/26/25 16:00 BP 128/48 08/26/25 16:00 Pulse Ox 94 08/26/25 16:00 O2 Del Method Nasal Cannula 08/26/25 08:00 O2 Flow Rate 6 08/26/25 08:00 08/26/25 08/26/25 08/26/25 06:59 14:59 22:59 Intake Total 423.366 / 2015.566 240 / 240 480 / 720 Output Total 0 / 0 Balance 423.366 / 2015.566 240 / 240 480 / 720 Weight last 48 hrs Weight 165 lb 9 oz Weight 163 lb 5.8 oz Weight 163 lb 5.8 oz Physical Exam Narrative: per RN General: alert, NAD HEENT: conj clear, EOMI, PERRL Neck: supple Pulmonary: CTAB. Cardiovascular: rrr, nl s1s2, no mrg Abdomen: soft, nt, nd, no r/g, Extremities: pulses +, no edema Skin: no rash Neurologic: grossly intact Agree with above exam Data 08/26/25 05:00 08/26/25 05:00 Micro: Microbiology 08/26/25 15:00 Gram Stain - Final Pleural Fluid A&P Assessment and plan 1. Lung mass: 2. Mediastinal lymphadenopathy: Plan: # Acute and chronic respiratory failure: Most likely due to copd exacerbation and possible acute CHF -Continue o2 and wean as tolerated # Lung mass: DDx- malignancy vs bacterial infection. - Reviewed the CT images that shows a right upper lobe opacity/mass abutting the spine and major vessels, difficult location for a biopsy. Also has some mediastinal lymphedenopathy. Suspicious for malignancy. He will need an EBUS bronchoscopic biopsy +/- Ion navigational robotic bronchoscopy. We will evaluate regarding the timing of this since he has other active issues going on at this time. He will also need cardiac clearance before this procedure. Ideally speaking he needs to be discharged and then brought back in at a later date for consideration. He is very high risk for any procedures due to his underlying cardiac issues and pulm hypertension. # Acute PE-involving 2nd and 3rd branches of lower lobe. Patient started on heparin drip currently. Most likely will need at least 2 weeks of anticoagulation before attempting any procedure. Will also need cardiac clearance # Acute COPD exacerbation - Agree with bronchodilators and steroids. # Right pleural effusion- ddx parapneumonic vs malignant. Discussed with Dr Pagan and agree with getting a thoracentesis since it would be less riskier than EBUS. Thoracentesis done, removed 500 ml fluid, ph is 6.0 with wbc of 120. protein is 1.8 and ldh 86. Confusing picture since its really low but not meeting exudative criteria based on his other numbers. It was very small and may not need chest tube regardless. Cytology pending. However, I do believe he will need EBUS as well to stage and dx later when he is more stable. He is being considered for HD due to his renal failure # Pulmonary hypertension- He is on adempas and opsumit. Will obtain records # Osteomyelitis on IV antibiotics via PICC # Acute on chronic kidney disease stage IV/V- baseline cr is 3 but today is 5. mild hyponatremia and acute metabolic acidosis noted as well. HD tunnel catheter is being planned by nephrology # hx of TAVR Echo reviewed, EF 60%, no RWMA. Valve in place Thank you for the consult Telemedicine Consent Patient seen today via Telemedicine by agreement and consent of patient.? Telemedicine technology used during the visit includes audio and, as available, review of images.? The patient encounter is appropriate and reasonable under the circumstances given the patient?s particular presentation at this time.? The patient has been advised of the potential risks and limitations of this mode of treatment (including but not limited to the absence of in-person examination) and has agreed to be treated in a remote fashion in spite of them.? Any, and all, of the patient?s/patient?s family?s questions on this issue have been answered and I have made no promises or guarantees to the patient. The patient has also been advised to contact this office for worsening conditions or problems, and seek emergency medical treatment and/or call 911 if the patient deems either necessary PDMP PDMP Reviewed: Not Reviewed Coding Level of Care Code 08764 Diagnoses Lung mass R91.8 Mediastinal lymphadenopathy R59.0
[2025-08-26] MEDS: guaiFENesin-dextromethorphan UDC 10 mL PO (23:24)
[2025-08-27] VITALS (24 sets, daily range): BP systolic 98–143; BP diastolic 45–69; PULSE 77–101; RESP 14–26; TEMP 36.3–37.5; O2SAT 90–98
[2025-08-27] MEDS: methylPREDNISolone sod succ 40 mg/mL INJ 30 MG IVP (02:26)
[2025-08-27] MEDS: guaiFENesin-dextromethorphan UDC 10 mL PO ×2 (04:05→20:41)
[2025-08-27 04:16] LABS: Hematocrit 24.3 % (37-53); Hemoglobin 7.40 g/dL (11.27-16.99); Mean Corpuscular HGB Conc 30.5 g/dL (30-55); Mean Corpuscular Hemoglobin 28.4 pg (27-33); Mean Corpuscular Volume 93.1 fl (82-101); Nucleated Red Blood Cells % 0 %; Platelet Count 141 10^3/cmm (157-399); Red Blood Count 2.61 10^6/uL (3.85-5.65); White Blood Count 9.54 10^3/uL (3.29-11.43)
[2025-08-27 04:37] LABS: Alanine Aminotransferase 12 U/L (0-41); Albumin Level 3.0 g/dL (3.5-5.2); Alkaline Phosphatase 213 U/L (40-130); Calcium 8.1 mg/dL (8.5-10.5); Carbon Dioxide 16 mmol/L (22-29); Chloride 100 mmol/L (98-107); Creatinine Clr Calc Pharmacy 11.5477; Globulin 3.1 g/dL (1.3-4.6); Glucose 236 mg/dL (65-115); Osmolality Calculated 316 mOsm/kg (285-295); Sodium 135 mmol/L (136-145); Total Protein 6.1 g/dL (6.6-8.7)
[2025-08-27 04:46] LABS: Blood Urea Nitrogen 92 mg/dL (8-23)
[2025-08-27 04:47] LABS: Anion Gap 23.8 (5-19); Aspartate Amino Transferase 28 U/L (0-40); Potassium 4.8 mmol/L (3.5-5.1)
[2025-08-27 08:23] LABS: Hepatitis B Surface Antigen Non-Reactive (Nonreactive)
[2025-08-27] MEDS: pantoprazole 40 mg SDV IVP ×2 (09:13→20:41)
--- NOTE | 2025-08-27 09:23 | P.PN_ITS ---
Subjective 2 Subjective: No acute events overnight Vitals/I&O/Wt Last Vital Signs Temp 97.9 F 08/27/25 07:54 Pulse 100 08/27/25 07:54 Resp 16 08/27/25 07:54 BP 108/64 08/27/25 07:54 Pulse Ox 91 08/27/25 07:54 O2 Del Method Nasal Cannula 08/27/25 07:54 O2 Flow Rate 6 08/27/25 07:43 08/26/25 08/27/25 08/27/25 22:59 06:59 14:59 Intake Total 480 / 720 Output Total 300 / 300 0 / 300 240 / 240 Balance 180 / 420 0 / 420 -240 / -240 Weight last 48 hrs Weight 169 lb 8 oz Weight 165 lb 9 oz Physical Exam 2 Narrative: Chest: Unlabored breathing room air. No lymphadenopathy. Heart: Regular rate and rhythm. Abdomen: Soft, nontender, nondistended. No masses or lymphadenopathy. Data 08/27/25 03:02 08/27/25 03:02 Micro: Microbiology 08/26/25 15:00 Gram Stain - Final Pleural Fluid A&P Assessment and plan 1. Acute on chronic kidney failure: Plan: 70-year-old male in need of dialysis. Discussed risk and benefits and patient agreed to proceed with tunneled dialysis catheter placement. Had an extensive discussion with the patient. His alternative would be to proceed with a AV fistula however this is not the best option since he needs dialysis very soon. Peritoneal dialysis is also not a good alternative in his case due to his fluid overload. Patient understands that he is at risk of vascular injury including arterial injury, bleeding, infection, stroke, and . Answered all of his questions. Patient is agreeable to proceed. PDMP PDMP Reviewed: Not Reviewed Attestations 2 Medical Necessity Statement*: N/A Coding Level of Care Code 34384 Diagnoses Acute on chronic kidney failure N17.9; N18.9
--- NOTE | 2025-08-27 09:38 | ANES.PREANE2 ---
Pre-Anesthetic Assessment Height/Weight: Height 5 ft 4 in Weight 169 lb 8 oz Temp Pulse Resp BP Pulse Ox O2 Del Method O2 Flow Rate 97.9 F 100 16 108/64 91 Nasal Cannula 6 08/27/25 07:54 08/27/25 07:54 08/27/25 07:54 08/27/25 07:54 08/27/25 07:54 08/27/25 07:54 08/27/25 07:43 Preop Diagnosis: CKD Operation Date: 08/27/25 13:40 Proposed Procedures p Insertion Central Venous Access Device Hemodialysis Catheter Insertion(Not Applicable) - Luis Gonzalez MD Was Beta Mateo taken within 24 hours: N/A Was Clonidine taken within 24 hours: N/A Social No alcohol and No tobacco Exam alert, oriented x 3, clear to auscultation bilaterally and regular rate & rhythm Airway Submandibular: within normal limits Cervical ROM: within normal limits Mallampati: Class III Comments: Comments: Edentulous Anesthetic Plan ASA status: 4 Anesthesia: General Other: Patient initially admitted 08/24/2025 with chest pain and dyspnea. With PEs Patient has chronic CKD S/p TAVR Patient is currently on 3 L nasal cannula Echo performed during hospitalization showing preserved EF with no RWMA No right atrial enlargement noted Labs reviewed from 08/27/2025, hemoglobin 7.4 today which is the same as yesterday NA 135, K+ 4.8, CR 5.5 Patient last took his Eliquis on 08/23/2025 Plan for general anesthesia Medications/Allergies Home Medications ?Medication ?Instructions ?Recorded ?Confirmed ?Last Taken ?Type Cam boot to left #1 ea 05/15/23 08/24/25 08/19/25 Rx bumetanide 1 mg tablet 2 mg PO DAILY 11/27/23 08/24/25 08/23/25 History Held on 08/07/25. Instructions: Resume on 08/10/25. resume bumex 1mg on sunday levothyroxine 112 mcg tablet 112 mcg PO DAILY 11/27/23 08/24/25 08/23/25 History riociguat 2.5 mg tablet (Adempas) 2.5 mg PO TID 11/27/23 08/24/25 08/23/25 History Diabetic shoes #1 ea 08/25/24 08/24/25 08/19/25 Rx CAM walker #1 ea 04/20/25 08/24/25 08/19/25 Rx acetaminophen 500 mg tablet 1,000 mg PO Q6H PRN Fever Or Pain 07/18/25 08/24/25 08/19/25 History (Tylenol Extra Strength) apixaban 5 mg tablet (Eliquis) 5 mg PO BID 07/18/25 08/24/25 08/23/25 History Held on 08/07/25. Instructions: Resume on 08/14/25. atorvastatin 40 mg tablet 40 mg PO DAILY 07/18/25 08/24/25 08/23/25 History macitentan 10 mg tablet (Opsumit) 10 mg PO DAILY 08/02/25 08/24/25 08/23/25 History hydrocodone 5 mg-acetaminophen 325 1 tab PO Q8H PRN pain 4 days #12 08/03/25 08/24/25 08/19/25 Rx mg tablet tabs pantoprazole 40 mg tablet,delayed 40 mg PO BID 30 days #60 tabs 08/07/25 08/24/25 08/23/25 Rx release (Protonix) sucralfate 1 gram tablet (Carafate) 1 g PO BID 4 weeks #56 tabs 08/07/25 08/24/25 08/23/25 Rx levofloxacin 500 mg tablet 500 mg PO DAILY #7 tabs 08/17/25 08/24/25 08/23/25 Rx clarithromycin 500 mg tablet 500 mg PO BID 14 days #28 tabs 08/19/25 08/24/25 08/23/25 Rx metronidazole 500 mg tablet 500 mg PO BID 14 days #28 tabs 08/19/25 08/24/25 08/23/25 Rx ceftriaxone 1 gram solution for 1 g IV DAILY 08/24/25 08/24/25 08/19/25 History injection Allergies Allergy/AdvReac Type Severity Reaction Status Date / Time No Known Allergies Allergy Verified 08/24/25 01:13 Current Medications Generic Name Dose Route Start Last Admin Trade Name Freq PRN Reason Stop Dose Admin Acetaminophen 650 mg 08/24/25 09:02 08/25/25 21:12 Acetaminophen 325 Mg Tablet PO 650 mg Q6H PRN Administration Mild/Mod Pain Or Temp >/= 101 Albuterol/Ipratropium 3 ml 08/24/25 14:00 08/27/25 07:44 Ipratropium-Albuterol 3 Ml Neb INHALATION Not Given Q6H.RESP CHUY Bumetanide 2 mg 08/24/25 16:00 08/25/25 06:30 Bumetanide 0.25 Mg/Ml Sdv 10 Ml IVP 2 mg On Hold: 08/25/25 11:10 BID@0600,1600 CHUY Administration Ceftriaxone Sodium 1,000 mg 08/24/25 10:30 08/26/25 11:21 Ceftriaxone 1,000 Mg Sdv IVP 1,000 mg Q24H CHUY Administration Protocol Clarithromycin 500 mg 08/25/25 09:00 08/27/25 04:05 Clarithromycin 500 Mg Tablet PO 500 mg BID CHUY Administration Protocol Guaifenesin/Dextromethorphan 10 ml 08/26/25 23:13 08/27/25 04:05 Guaifenesin-Dextromethorphan Udc 10 Ml PO 10 ml Q4H PRN Administration COUGH Heparin Sodium/Sodium Chloride 25,000 unit in 500 mls @ 0 mls/hr 08/24/25 09:15 08/26/25 06:39 Heparin Drip IV 12.54 unit/kg/hr On Hold: 08/26/25 08:25 CONT CHUY 19 mls/hr Protocol Titration Per Protocol Insulin Human Lispro 0 unit 08/24/25 12:00 08/27/25 07:56 Insulin Lispro 100 Unit/1 Ml SUBCUT Not Given WM&BEDTIME [facility] Protocol Levofloxacin 250 mg 08/27/25 05:00 08/27/25 04:05 Levofloxacin 250 Mg Tablet PO 250 mg DAILY CHUY Administration Protocol Levothyroxine Sodium 112 mcg 08/25/25 08:25 08/27/25 04:06 Levothyroxine 112 Mcg Tablet PO 112 mcg DAILY CHUY Administration Methylprednisolone Sodium Succinate 30 mg 08/24/25 10:30 08/27/25 02:26 Methylprednisolone Sod Succ 40 Mg/Ml Inj IVP 30 mg Q8H CHUY Administration Metronidazole 500 mg 08/25/25 08:25 08/27/25 04:05 Metronidazole 500 Mg Tablet PO 500 mg BID CHUY Administration Ondansetron HCl 4 mg 08/24/25 09:02 08/26/25 22:47 Ondansetron 2 Mg/Ml Sdv 2 Ml IVP 4 mg Q4H PRN Administration vomiting, or N/V if npo Pantoprazole Sodium 40 mg 08/24/25 09:15 08/27/25 09:13 Pantoprazole 40 Mg Sdv IVP 40 mg Q12H CHUY Administration Sucralfate 1 gm 08/25/25 08:25 08/27/25 04:06 Sucralfate 1 Gm Tablet PO 1 gm BID CHUY Administration PFSH Anesthesia Medical History (Updated 08/26/25 @ 20:06 by Alfred Lezama MD) Mediastinal lymphadenopathy Lung mass Pericardial effusion Tobacco abuse Anemia Diabetes Warfarin anticoagulation Chest pain History of pulmonary embolism Congestive heart failure History of nonmelanoma skin cancer Hypothalamic hypothyroidism Hypertension History of blood clots COPD (chronic obstructive pulmonary disease) History of pulmonary embolism Surgical History S/P TAVR (transcatheter aortic valve replacement) History of rotator cuff surgery Social History (Updated 08/24/25 @ 09:38 by Freeman Rodriguez MD) Smoking and tobacco/nicotine status: former use of tobacco/nicotine Quit status (tobacco/nicotine): has quit using Year quit tobacco: 2024 Former quit date comment: a week ago Alcohol intake: never Substance/Drug Use: never Marital status: Life Partner Data Anesthesia 08/27/25 03:02 08/27/25 03:02 Short CBC 08/25/25 08/26/25 08/27/25 Range/Units 09:53 05:00 03:02 WBC 12.13 H 9.54 (3.29-11.43) 10^3/uL Hgb 7.80 L 7.40 L 7.40 L (11.27-16.99) g/dL Hct 23.8 L 24.3 L (37-53) % MCV 90.5 93.1 (82-101) fl Plt Count 132 L 141 L (157-399) 10^3/cmm Neut % (Auto) 94.1 92.9 % Neut # (Auto) 11.41 H 8.86 H (1.8-7.7) 10^3/uL BMP 08/26/25 08/27/25 05:00 03:02 Sodium 134 L 135 L Potassium 4.2 4.8 Chloride 99 100 Carbon Dioxide 15 L 16 L BUN 76 H 92 H* Creatinine 5.1 H 5.5 H Glucose 192 H 236 H Calcium 8.3 L 8.1 L Liver Function 08/26/25 08/27/25 Range/Units 05:00 03:02 Total Bilirubin 0.2 0.2 (0.15-1.2) mg/dL AST 24 28 (0-40) U/L ALT 10 12 (0-41) U/L Alkaline Phosphatase 220 H 213 H (40-130) U/L Albumin 3.3 L 3.0 L (3.5-5.2) g/dL Coags 08/25/25 08/25/25 08/25/25 09:53 16:11 22:42 APTT 70.0 H 69.3 H 60.1 H 08/26/25 08/26/25 05:00 06:12 APTT Cancelled 61.7 H Microbiology 08/26/25 15:00 Gram Stain - Final Pleural Fluid Cardiac Studies: Echocardiogram 08/04/25 Echocardiogram Limited Views 08/24/25
--- NOTE | 2025-08-27 09:42 | SC_ITS ---
WS: [id number] C-ARM RADIOGRAPHS CHEST; 2 IMAGES HISTORY: Intraoperative imaging during placement dialysis catheter. COMPARISON: None available. The tips of the double lumen catheter terminate proximal to the caval atrial junction. The shorter lumen may be at the junction of the brachiocephalic vein with the RIGHT subclavian vein. The longer lumen is in the mid SVC. SC/C-arm [place] CVA [id number] IMPRESSION: 1. Double-lumen dialysis catheter has been placed. 2. The shorter lumen may terminate near the junction of the brachiocephalic ve in with the RIGHT subclavian vein. Consider follow-up chest radiograph to confi rm position. The radiograph obtained on the C-arm is slightly lordotic which ma y change the appearance of the position of the catheter. Recommend further eval uation before using the dual lumen catheter.
--- NOTE | 2025-08-27 09:55 | PC.NURSE ---
patient off the floor at 0930 to surgery for dialysis access placement.
[2025-08-27] MEDS: insulin regular-human 100 units/1 mL 5 UNIT IVP (10:04)
[2025-08-27] MEDS: cefTRIAXone 1,000 mg SDV 1000 MG IVP (10:05)
[2025-08-27] MEDS: BUPivacaine 0.25% INJ 10 mL INJECTION (10:26)
[2025-08-27] MEDS: lidocaine-epi 1% 20 mL INJ INJECTION (10:26)
[2025-08-27] MEDS: heparin, porcine 1,000 unit/mL INJ 10 mL 10000 UNIT IRRIGATION (10:26)
--- NOTE | 2025-08-27 10:31 | PM.PN ---
Documented by User: Freeman Rodriguez MD 08/27/25 15:58 Vitals/I&O/Wt Last Vital Signs Temp 98.3 F 08/27/25 09:52 Pulse 96 08/27/25 09:52 Resp 16 08/27/25 09:52 BP 120/66 08/27/25 09:52 Pulse Ox 90 08/27/25 09:52 O2 Del Method Nasal Cannula 08/27/25 09:52 O2 Flow Rate 3 08/27/25 09:52 08/26/25 08/27/25 08/27/25 22:59 06:59 14:59 Intake Total 480 / 720 Output Total 300 / 300 0 / 300 240 / 240 Balance 180 / 420 0 / 420 -240 / -240 Weight last 48 hrs Weight 76.884 kg Weight 75.098 kg Data 08/27/25 03:02 08/27/25 03:02 Micro: Microbiology 08/26/25 15:00 Gram Stain - Final Pleural Fluid A&P Assessment and plan 1. Acute respiratory failure with hypoxia: Yesterday thoracentesis performed with 500 cc of yellow fluid removed. Overnight still requiring 6 L nasal cannula oxygen, this morning with some improvement in oxygenation able to wean down to 4 L. Reviewed Gram stain, negative for organisms, noted some WBCs. Reviewed fluid chemistries, pH is low at 6, but may be affected by acidosis secondary to renal failure, LDH is not elevated, protein not suggestive of exudate. Overall appears to be transudative fluid. Noted better air entry in right lower lobe now with some crackles. Diuretics for acute CHF on hold. With GT on CKD, with acute renal failure, requiring renal replacement therapy, discussed with nephrology, surgery, plans for tunneled catheter placement today and subsequent hemodialysis. Discussed with nursing, hospice case manager who will also work on arrangement for chair time for him as an outpatient. On review of chest x-ray still congestive changes noted in the lungs with ongoing acute CHF, continue treatment with dialysis. Continue treatment of COPD exacerbation will switch over to oral corticosteroid given some recurrence of vomiting. Continue PPI. Sucralfate. Continue empiric antibiotic coverage with ceftriaxone. Sputum culture has not been collected. Could not exclude underlying pneumonia as well with also upper lobe mass, leukocytosis has resolved. Afebrile. Continue oxygen support, wean down as tolerating. 2. Acute kidney injury superimposed on CKD: HD catheter placement today and initiation of HD. Discussed with case management who will also work on arrangement of outpatient chair time. Worsening renal function with possible acute renal failure. Reviewed chemistry, intake and output. Resumed heparin drip. Monitor for risk of bleeding. 3. COPD exacerbation: Sputum uncollected so far. Air entry sounds better. Will transition from IV corticosteroid to oral given some recurrence of vomiting. Switch to prednisone 40 mg daily. Continue ceftriaxone. Breathing treatments. 4. Acute exacerbation of CHF (congestive heart failure): History of CHF with edema and markedly elevated NT-proBNP reported historically. - hold IV diuretics (IV bumetanide) due to worsening renal function -Complete troponin EKG series with noted moderate troponin elevation. 5. Pleural effusion: Status post thoracentesis. Cytology has been sent. Follow-up cultures. Fluid studies reviewed, no organisms on Gram stain. Overall suggestive of transudate. 6. Mass of upper lobe of right lung: Right upper lobe opacity on CT concerning for mass; less likely pneumonia by report. Follow-up pleural fluid cytology Appreciate pulmonology consultation and plans for bronchoscopy and biopsy. 7. Pulmonary emboli: Noted acute on chronic anemia today, hemoglobin down to 7.3. Recheck hemoglobin requested, reviewed, 7.8. Reviewed iron studies. Resume heparin drip. CT angiogram shows emboli in lower lobe pulmonary arteries; patient recently had interruption of apixaban. - On anticoagulation with intravenous heparin drip; consider transition back to apixaban if appropriate. - Reviewed transthoracic echocardiogram (TTE) to assess cardiac status in the setting of PE and heart failure. 8. Troponin level elevated: Reviewed troponin EKG series, assess for cardiac ischemia. Suspect type II HI with respiratory failure. PE. Reviewed limited TTE. Monitor on telemetry with risk of arrhythmia. 9. Pulmonary hypertension: Resumed his usual medication with Adempas and Opsumit. 10. Chest pain: Resolved. Chest pain radiating across chest and posterior neck since previous afternoon. Suspect combination due to the respiratory process as above, including PE. Complete troponin EKG series as above assess for cardiac ischemia. Reviewed reviewed reviewedReviewed limited TTE. Plan: Assessed and examined patient independently, discussed case with medical student, discussed below student documentation. 1. Acute COPD exacerbation: Guy Wiseman, 70M, inpatient day 4 for acute exacerbation of COPD. His dyspnea is improving s/p thoracentesis, and he is only requiring 4L O2 at rest now. Thoracentesis performed suggests transudative effusion by Light's criteria. We will continue to monitor improving respiratory function. 2. Chronic Kidney Disease: Patient is receiving port placement today for hemodialysis. He is being followed by nephrology for worsing azotemia. He will receive hemodialysis possibly today or tomorrow. 3. Congestive Heart Failure: Continuing to hold diuretics due to azotemia. Awaiting hemodialysis and will reassess for signs of fluid overload to restart diuretics. 4. Pulmonary Embolism: Resume anticoagulation after dialysis catheter placement. 5. Anemia: Persistent anemia remains steady with Hgb 7.4. 6. Vomiting: Consider switching IV corticosteroids to oral for vomiting. Continue pantoprazole and sucralfate. 7. Osteomyelitis: Continue IV ceftriaxone. 8. Lung mass: Follow up outpatient with pulmonology for bronchoscopic biopsy. PDMP PDMP Reviewed: Not Reviewed Attestations Medical Necessity Statement*: Continue admission/management of continued respiratory failure with hypoxia, COPD exacerbation, possible pneumonia, recurrence of PE, pleural effusion, acute CHF, CKD with GT with possible acute renal failure, suspected right upper lobe mass. and High MDM includes amount and/or complexity of data reviewed/ordered [ previous or external records, resulted lab(s)/test(s), ordered lab(s)/test(s) and other healthcare professional discussion] and described risk of complication, morbidity or mortality of management as documented Diagnoses Acute respiratory failure with hypoxia J96.01 Acute kidney injury superimposed on CKD N17.9; N18.9 COPD exacerbation J44.1 Acute exacerbation of CHF (congestive heart failure) I50.9 Heart failure type: unspecified Pleural effusion J90 Mass of upper lobe of right lung R91.8 Pulmonary emboli I26.99 Troponin level elevated R79.89 Pulmonary hypertension I27.20 Chest pain R07.9 Documented by User: NAHID Pepper STDNT 08/27/25 15:15 Subjective Subjective: Guy Wiseman, 70M, inpatient day 4 for acute respiratory failure secondary to acute COPD exacerbation. Patient reports doing better today with his dyspnea. He reports 1x episode of vomiting overnight but no other acute symptoms. ROS: Only + for vomiting; all other systems reviewed as negative. His O2 was decreased from 6L to 4L by RT. His thoracentesis performed yesterday removed 500cc. Physical Exam Const: OTHER: Alert and oriented. Appears comfortable. Resp: OTHER: Crackles heard in right lower lobe. All other lung lobes sound clear. Cardio: COMMON NORMALS: regular rate, regular rhythm, S1 normal heart sound present and S2 normal heart sound present RATE: regular rate RHYTHM: regular rhythm HEART SOUNDS: S1 normal heart sound present and S2 normal heart sound present Extremity: NARRATIVE EXTREMITY EXAM: 1+ pitting edema noted in bilateral lower extremities. Data 08/27/25 03:02 08/27/25 03:02 A&P Assessment and plan 1. Acute respiratory failure with hypoxia: 2. Acute kidney injury superimposed on CKD: 3. COPD exacerbation: 4. Acute exacerbation of CHF (congestive heart failure): 5. Pleural effusion: 6. Mass of upper lobe of right lun. Pulmonary emboli: 8. Troponin level elevated: 9. Pulmonary hypertension: 10. Chest pain: Plan: 1. Acute COPD exacerbation: Guy Wiseman, 70M, inpatient day 4 for acute exacerbation of COPD. His dyspnea is improving s/p thoracentesis, and he is only requiring 4L O2 at rest now. Thoracentesis performed suggests transudative effusion by Light's criteria. We will continue to monitor improving respiratory function. 2. Chronic Kidney Disease: Patient is receiving port placement today for hemodialysis. He is being followed by nephrology for worsing azotemia. He will receive hemodialysis possibly today or tomorrow. 3. Congestive Heart Failure: Continuing to hold diuretics due to azotemia. Awaiting hemodialysis and will reassess for signs of fluid overload to restart diuretics. 4. Pulmonary Embolism: Resume anticoagulation after dialysis catheter placement. 5. Anemia: Persistent anemia remains steady with Hgb 7.4. 6. Vomiting: Consider switching IV corticosteroids to oral for vomiting. Continue pantoprazole and sucralfate. 7. Osteomyelitis: Continue IV ceftriaxone. 8. Lung mass: Follow up outpatient with pulmonology for bronchoscopic biopsy. PDMP PDMP Reviewed: Not Reviewed Coding Level of Care Code 26366 Diagnoses Acute respiratory failure with hypoxia J96.01 Acute kidney injury superimposed on CKD N17.9; N18.9 COPD exacerbation J44.1 Acute exacerbation of CHF (congestive heart failure) I50.9 Heart failure type: unspecified Pleural effusion J90 Mass of upper lobe of right lung R91.8 Pulmonary emboli I26.99 Troponin level elevated R79.89 Pulmonary hypertension I27.20 Chest pain R07.9
--- NOTE | 2025-08-27 10:40 | PM.OP ---
Operative Report Date of procedure: August 27, 2025 Pre-op diagnosis: CKD Post-op diagnosis: same Post-op findings: Tip of catheter in distal SVC. Confirmed with fluoroscopy Procedure done: Tunneled dialysis catheter insertion Implants: Tunneled dialysis catheter Specimens removed/disposition: NA Surgeon: Luis Gonzalez MD Senior Director Creative Services: CRYSTAL Anesthesia: MAC Estimated blood loss (mL): 20 Complications: NA Findings: Tip of catheter in distal SVC. Confirmed with fluoroscopy Condition: stable Disposition: floor Brief History: 70yo male CKD whom surgery was consulted for a tunneled dialysis catheter inserton. Discussed risks and benefits and patient agreed to proceed with tunneled dialysis catheter patient. Answered all questions. Patient understands that the risks include infection, massive bleeding and , vascular injury (including arterial injury), stroke, catheter malfunction. He wants to proceed. Procedure: The patient was taken to the operating room and placed under MAC after IV antibiotic had been administered. The chest and neck were prepped and draped in a sterile manner bilaterally. An ultrasound of the right internal jugular vein revealed patent flow, no thrombus identified. Using introducer needle the internal jugular vein on the right side was accessed and guidewire passed into the right atrium under fluoroscopy. Under fluoroscopy the location for the dialysis catheter was marked. Using 15 blade a skin incision was extended at the vein access site as well as the previously marked location on the right chest wall. The dialysis catheter was attached to the tunneler and passed subcutaneously, exiting at the venous access site. Serial dilators were passed over the guidewire under fluoroscopy. Finally the dilator peel-away sheath was passed over the guidewire and the inner dilator and guidewire was removed and the dialysis catheter was introduced into the right internal jugular vein as the peel-away sheath was removed. The tip of the catheter was noted to be in the right atrium. Both ports of the catheter rick blood and flushed easily. The catheter was sutured to the skin using 3-0 nylon and the venous access site was closed with 4-0 Monocryl and Dermabond. A total of 5 mL of 1:10,000 heparin was injected into the 2 ports under dialysis catheter. Fluoroscopic guidance and interpretation for passage of guidewire and dilator and placement of catheter in the right atrium.
--- NOTE | 2025-08-27 11:17 | ANE.PACU2 ---
Inpatient post-anesthesia follow up: Airway intact: Yes Vital signs: Temperature 97.4 F Pulse Rate 90 Respiratory Rate 16 Blood Pressure 128/63 Pulse Oximetry 90 Oxygen Delivery Me thod Nasal Cannula Oxygen Flow Rate 2 Fraction of Inspir ed Oxygen Hydration adequate: Yes Nausea and vomiting: No Pain level: 1 Mental status: Baseline
--- NOTE | 2025-08-27 14:41 | PC.NURSE ---
home medications x2 placed in his bin in the med room. Labeled by pharmacy
[2025-08-27] MEDS: epoetin alfa-epbx 20,000 unit/ml SDV (ESRD) 5000 UNIT HE (17:01)
--- NOTE | 2025-08-27 17:33 | PC.NURSE ---
patient came back from dialysis, he was there for 2 hours and had 2L taken off. Patient's blood pressure remained normotensive throughout.
--- NOTE | 2025-08-27 20:30 | P.PN_ITS ---
Subjective 2 Subjective: Patient has no new complaints on 3L o2. He was initiated on HD today following catheter placement Medications: Reviewed: Yes Vitals/I&O/Wt Last Vital Signs Temp 97.9 F 08/27/25 19:08 Pulse 77 08/27/25 19:53 Resp 16 08/27/25 19:53 BP 100/45 08/27/25 19:08 Pulse Ox 94 08/27/25 19:53 O2 Del Method Nasal Cannula 08/27/25 19:53 O2 Flow Rate 2 08/27/25 19:53 08/27/25 08/27/25 08/27/25 06:59 14:59 22:59 Intake Total 720 / 720 860 / 1580 Output Total 0 / 300 255 / 255 2500 / 2755 Balance 0 / 420 465 / 465 -1640 / -1175 Weight last 48 hrs Weight 77.6 kg Weight 76.884 kg Weight 75.098 kg Physical Exam 2 Narrative: GEN: nad, alert, conversant HEAD: normocephalic, atraumatic EYES: eomi, anicteric sclera HEENT: MMM NECK: no jvd CV: RRR, no murmur LUNGS: diminished BS ABD: soft, nt ,nd EXT: trace LE edema SKIN: no rash NEURO: grossly normal Data 08/27/25 03:02 08/27/25 03:02 Micro: Microbiology 08/26/25 15:00 Gram Stain - Final Pleural Fluid Body Fluid Culture - Preliminary A&P Assessment and plan 1. GT (acute kidney injury): 1. Acute superimposed on chronic kidney disease stage IV/V- His baseline creatinine seems to be in the 3 range, followed by nephrology at [place]. Outpatient AV fistula and vein mapping planned. - His gt is likely due to contrast induced nephropathy. He was initiated on renal replacement therapy today due to worseinig renal function and diminished UOP with increased oxygen requirements. - i will plan on HD again tomorrow 2. Acute on chronic respiratory failure- Multifactorial in the setting of lung mass versus consolidation, PE , pleural effusion. i will start uf with hd 3. Metabolic acidosis- due to gt on ckd. will improve with hd 4. Anemia in ckd- cont JENNY 5. History of coronary artery disease, cardiomyopathy and CHF 6. History of TAVR PDMP PDMP Reviewed: Not Reviewed Attestations 2 Medical Necessity Statement*: gt on ckd Time Spent in Patient Care: 25 minutes Coding Level of Care Code Acute Code for Chg Fwd Diagnoses GT (acute kidney injury) N17.9
[2025-08-27] MEDS: RIOCIGUAT 2.5 MG 2.5 EACH PO (20:41)
[2025-08-27] MEDS: MACITENTAN 10 MG 10 EACH PO (20:41)
--- NOTE | 2025-08-27 23:18 | PC.NURSE ---
Nurse notified of low bp.
[2025-08-28] VITALS (11 sets, daily range): BP systolic 99–141; BP diastolic 43–62; PULSE 94–105; RESP 13–19; TEMP 36.6–37.1; O2SAT 88–96; BMI 29.6
[2025-08-28 03:40] LABS: Hematocrit 21.1 % (37-53); Hemoglobin 6.70 g/dL (11.27-16.99); Mean Corpuscular HGB Conc 31.8 g/dL (30-55); Mean Corpuscular Hemoglobin 28.3 pg (27-33); Mean Corpuscular Volume 89.0 fl (82-101); Nucleated Red Blood Cells % 0.2 %; Platelet Count 137 10^3/cmm (157-399); Red Blood Count 2.37 10^6/uL (3.85-5.65); White Blood Count 9.56 10^3/uL (3.29-11.43)
[2025-08-28 04:04] LABS: Alanine Aminotransferase 14 U/L (0-41); Albumin Level 3.0 g/dL (3.5-5.2); Alkaline Phosphatase 195 U/L (40-130); Anion Gap 19.1 (5-19); Aspartate Amino Transferase 25 U/L (0-40); Blood Urea Nitrogen 80 mg/dL (8-23); Calcium 7.9 mg/dL (8.5-10.5); Carbon Dioxide 21 mmol/L (22-29); Chloride 102 mmol/L (98-107); Creatinine Clr Calc Pharmacy 13.8667; Globulin 2.7 g/dL (1.3-4.6); Glucose 308 mg/dL (65-115); Osmolality Calculated 322 mOsm/kg (285-295); Potassium 4.1 mmol/L (3.5-5.1); Sodium 138 mmol/L (136-145); Total Protein 5.7 g/dL (6.6-8.7)
[2025-08-28] MEDS: guaiFENesin-dextromethorphan UDC 10 mL PO (05:52)
[2025-08-28] MEDS: RIOCIGUAT 2.5 MG 2.5 EACH PO ×3 (05:52→21:28)
[2025-08-28] MEDS: MACITENTAN 10 MG 10 EACH PO (05:52)
--- NOTE | 2025-08-28 05:57 | PC.NURSE ---
Contacted because patients hemoglobin dropped from 7.4 to 6.7, received orders to redraw the hemoglobin and hematocrit and contact her with results.
[2025-08-28 06:21] LABS: Hemoglobin 7.00 g/dL (11.27-16.99)
[2025-08-28] MEDS: pantoprazole 40 mg SDV IVP ×2 (07:50→21:28)
[2025-08-28] MEDS: cefTRIAXone 1,000 mg SDV 1000 MG IVP (07:51)
--- NOTE | 2025-08-28 10:51 | PC.NURSE ---
patient in dialysis
--- NOTE | 2025-08-28 13:06 | P.PN_ITS ---
Subjective 2 Subjective: HD today. Vitals/I&O/Wt Last Vital Signs Temp 98.2 F 08/28/25 12:41 Pulse 94 08/28/25 12:41 Resp 16 08/28/25 12:41 BP 135/48 08/28/25 12:41 Pulse Ox 92 08/28/25 07:34 O2 Del Method Nasal Cannula 08/28/25 07:34 O2 Flow Rate 4 08/28/25 07:33 08/27/25 08/28/25 08/28/25 22:59 06:59 14:59 Intake Total 860 / 1580 740 / 740 Output Total 2500 / 2755 300 / 3055 2500 / 2500 Balance -1640 / -1175 -300 / -1475 -1760 / -1760 Weight last 48 hrs Weight 76.5 kg Weight 78.4 kg Weight 77.6 kg Weight 76.884 kg Physical Exam 2 Const: COMMON NORMALS: no acute distress, average body habitus and patient oriented x3 HENMT: COMMON NORMALS: normocephalic and atraumatic HEAD & SCALP: n ormocephalic and atraumatic Eye: COMMON NORMALS: Equal, round and reactive pupils present and EOMs intact bilaterally PUPIL: Yes Equal, round and reactive pupils present Neck/C-Spine: COMMON NORMALS: full ROM, no lymphadenopathy and no JVD Resp: COMMON NORMALS: normal respiratory effort, No retractions, No use of accessory muscles and clear to auscultation bilaterally AUSCULTATION: clear to auscultation bilaterally Cardio: COMMON NORMALS: no JVD, regular rate, regular rhythm, S1 normal heart sound present, S2 normal heart sound present, No gallops present (Cardio), No murmurs present (Cardio), No rub (Cardio) and Peripheral pulses 2+ throughout RATE: regular rate RHYTHM: regular rhythm HEART SOUNDS: S1 normal heart sound present and S2 normal heart sound present PERIPHERAL PULSES: Peripheral pulses 2+ throughout GI: COMMON NORMALS: Soft to palpation, non-tender, No hepatosplenomegaly present and no masses PALPATION: Yes Soft to palpation and Yes No hepatosplenomegaly present Extremity: GENERAL: Yes edema (BL LE) Neuro: COMMON NORMALS: patient oriented x3 Data 08/28/25 06:15 08/28/25 03:17 Micro: Microbiology 08/26/25 15:00 Gram Stain - Final Pleural Fluid Body Fluid Culture - Preliminary A&P Assessment and plan 1. GT (acute kidney injury): 2. Lung mass: 3. Acute kidney injury superimposed on CKD: 4. Pulmonary embolism: 5. Pleural effusion: Plan: 70 year old male presenting with hypoxia. Acute respiratory failure with hypoxia: Pleural effusion: - s/p thoracentesis performed with 500 cc of transudative fluid - O2 per NC at 3L which is his home dose. - Gram stain negative for organisms, noted some WBCs. COPD exacerbation: - Sputum uncollected so far. - cont. prednisone 40 mg daily. - Continue ceftriaxone. Breathing treatments. GERD H. pylori - Continue PPI. Sucralfate. - cont flagyl, clarithromycin, levofloxacin Acute kidney injury superimposed on CKD: - HD catheter placed - cont. HD per nephrology - case management working on arrangement of outpatient chair time. Acute exacerbation of CHF (congestive heart failure): - History of CHF with edema and markedly elevated NT-proBNP reported historically. - hold IV diuretics (IV bumetanide) due to worsening renal function - Complete troponin EKG series with noted moderate troponin elevation. Mass of upper lobe of right lung: - Right upper lobe opacity on CT concerning for mass; less likely pneumonia by report. - Follow-up pleural fluid cytology - Appreciate pulmonology consultation: will likely need outpatient bronchoscopy and biopsy. Anemia - acute on chronic anemia - low iron with normal ferritin - can give a bag of IV iron here, which can also help with HF. Pulmonary emboli: - Resume heparin drip. - CT angiogram shows emboli in lower lobe pulmonary arteries; patient recently had interruption of apixaban. - Reviewed limited TTE. Monitor on telemetry with risk of arrhythmia. - Chest pain/troponin elevation likely related to PE and effusion Pulmonary hypertension: - Resumed his usual medication with Adempas and Opsumit. ppx: on heparin drip Diet: HH Disposition - HD today - will need chair time prior to D/C PDMP PDMP Reviewed: Not Reviewed Attestations 2 Medical Necessity Statement*: ongoing inpatient for HD Coding Level of Care Code Acute Code for Chg Fwd Diagnoses GT (acute kidney injury) N17.9 Lung mass R91.8 Acute kidney injury superimposed on CKD N17.9; N18.9 Pulmonary embolism I26.99 Pleural effusion J90
--- NOTE | 2025-08-28 13:53 | PC.SOCIAL ---
IMM UPDATED IMM dated and initialed, copy given to patient and placed in chart.
[2025-08-28] MEDS: ferric gluconate 125 MG in sodium chloride 0.9% (100 ml) 100 ML 110 MG IV (13:54)
--- NOTE | 2025-08-28 14:03 | P.PN_ITS ---
Subjective 2 Subjective: getting HD Medications: Reviewed: Yes Vitals/I&O/Wt Last Vital Signs Temp 98.2 F 08/28/25 12:41 Pulse 94 08/28/25 12:41 Resp 16 08/28/25 12:41 BP 135/48 08/28/25 12:41 Pulse Ox 96 08/28/25 12:00 O2 Del Method Nasal Cannula 08/28/25 12:00 O2 Flow Rate 4 08/28/25 07:33 08/27/25 08/28/25 08/28/25 22:59 06:59 14:59 Intake Total 860 / 1580 740 / 740 Output Total 2500 / 2755 300 / 3055 2500 / 2500 Balance -1640 / -1175 -300 / -1475 -1760 / -1760 Weight last 48 hrs Weight 76.5 kg Weight 78.4 kg Weight 77.6 kg Weight 76.884 kg Physical Exam 2 Narrative: GEN: nad, alert, conversant HEAD: normocephalic, atraumatic EYES: eomi, anicteric sclera HEENT: MMM NECK: no jvd CV: RRR, no murmur LUNGS: diminished BS ABD: soft, nt ,nd EXT: trace LE edema SKIN: no rash NEURO: grossly normal Data 08/28/25 06:15 08/28/25 03:17 Micro: Microbiology 08/26/25 15:00 Gram Stain - Final Pleural Fluid Body Fluid Culture - Preliminary A&P Assessment and plan 1. GT (acute kidney injury): 1. 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 Outpatient AV fistula and vein mapping planned. - His gt is likely due to contrast induced nephropathy. He was initiated on renal replacement therapy due to worseinig renal function and diminished UOP with increased oxygen requirements. - i will plan on HD again today 2. Acute on chronic respiratory failure- Multifactorial in the setting of lung mass versus consolidation, PE , pleural effusion. i will start uf with hd 3. Metabolic acidosis- due to gt on ckd. will improve with hd 4. Anemia in ckd- cont JENNY 5. History of coronary artery disease, cardiomyopathy and CHF 6. History of TAVR PDMP PDMP Reviewed: Not Reviewed Attestations 2 Medical Necessity Statement*: per medicne Coding Level of Care Code Acute Code for Chg Fwd Diagnoses GT (acute kidney injury) N17.9
--- NOTE | 2025-08-28 19:18 | PC.NURSE ---
Nurse notified of low bp.
--- NOTE | 2025-08-28 23:14 | PC.NURSE ---
Nurse notified of low bp.
[2025-08-29] VITALS (9 sets, daily range): BP systolic 100–133; BP diastolic 45–61; PULSE 95–104; RESP 12–26; TEMP 36.6–36.9; O2SAT 91–98; BMI 29.8
[2025-08-29 04:38] LABS: Hematocrit 22.2 % (37-53); Hemoglobin 7.00 g/dL (11.27-16.99); Mean Corpuscular HGB Conc 31.5 g/dL (30-55); Mean Corpuscular Hemoglobin 28.6 pg (27-33); Mean Corpuscular Volume 90.6 fl (82-101); Nucleated Red Blood Cells % 1.0 %; Platelet Count 128 10^3/cmm (157-399); Red Blood Count 2.45 10^6/uL (3.85-5.65); White Blood Count 9.60 10^3/uL (3.29-11.43)
[2025-08-29 04:54] LABS: Alanine Aminotransferase 15 U/L (0-41); Albumin Level 2.9 g/dL (3.5-5.2); Alkaline Phosphatase 186 U/L (40-130); Blood Urea Nitrogen 63 mg/dL (8-23); Calcium 7.8 mg/dL (8.5-10.5); Carbon Dioxide 21 mmol/L (22-29); Chloride 101 mmol/L (98-107); Globulin 2.5 g/dL (1.3-4.6); Glucose 245 mg/dL (65-115); Osmolality Calculated 310 mOsm/kg (285-295); Sodium 137 mmol/L (136-145); Total Protein 5.4 g/dL (6.6-8.7)
[2025-08-29 04:55] LABS: Anion Gap 19.6 (5-19); Creatinine Clr Calc Pharmacy 18.6368; Potassium 4.6 mmol/L (3.5-5.1)
[2025-08-29 04:56] LABS: Aspartate Amino Transferase 30 U/L (0-40)
[2025-08-29] MEDS: MACITENTAN 10 MG 10 EACH PO (05:25)
[2025-08-29] MEDS: RIOCIGUAT 2.5 MG 2.5 EACH PO ×3 (05:26→20:44)
[2025-08-29] MEDS: pantoprazole 40 mg SDV IVP ×2 (08:39→20:43)
[2025-08-29] MEDS: cefTRIAXone 1,000 mg SDV 1000 MG IVP (10:28)
--- NOTE | 2025-08-29 15:03 | P.PN_ITS ---
Subjective 2 Subjective: Breathing better. Vitals/I&O/Wt Last Vital Signs Temp 98.0 F 08/29/25 12:00 Pulse 101 H 08/29/25 12:00 Resp 16 08/29/25 12:00 BP 100/52 08/29/25 12:00 Pulse Ox 98 08/29/25 12:00 O2 Del Method Nasal Cannula 08/29/25 08:00 O2 Flow Rate 3 08/29/25 08:00 08/29/25 08/29/25 08/29/25 06:59 14:59 22:59 Intake Total 360 / 360 Balance 360 / 360 Weight last 48 hrs Weight 78.8 kg Weight 76.5 kg Weight 78.4 kg Weight 77.6 kg Physical Exam 2 Narrative: Physical Exam Const: no acute distress, average body habi tus and patient or iented x3 HENMT: normocephalic and atraumatic Eye: Equal, round and r eactive pupils pre sent and EOMs inta ct bilaterally Neck/C-Spine: full ROM, no lymph adenopathy and no JVD Resp: normal respiratory effort, No retrac tions, No use of a ccessory muscles a nd clear to auscul tation bilaterally Cardio: no JVD, regular ra te, regular rhythm , S1/S2 normal, No gallops, No murmu rs, No rubs, Perip heral pulses 2+ th roughout GI: Soft to palpation, non-tender, No he patosplenomegaly p resent and no mass es Extremity: BL LE Neuro: patient oriented x 3 Data 08/29/25 03:45 08/29/25 03:45 Micro: Microbiology 08/26/25 15:00 Gram Stain - Final Pleural Fluid Body Fluid Culture - Final A&P Assessment and plan 1. GT (acute kidney injury): 2. Mediastinal lymphadenopathy: 3. Lung mass: 4. Acute kidney injury superimposed on CKD: 5. Pulmonary emboli: Plan: 70 year old male presenting with hypoxia. Acute respiratory failure with hypoxia: Pleural effusion: - s/p thoracentesis performed with 500 cc of transudative fluid - O2 per NC at 3L which is his home dose. - Gram stain negative for organisms, noted some WBCs. COPD exacerbation: - Sputum uncollected so far. - cont. prednisone 40 mg daily. - Continue ceftriaxone. Breathing treatments. GERD H. pylori - Continue PPI. Sucralfate. - cont flagyl, clarithromycin, levofloxacin Acute kidney injury superimposed on CKD: - HD catheter placed - cont. HD per nephrology - The patient has chair time for dialysis after discharge. - plans for outpatient AV fistula and vein mapping, sees nephrology at [place] Acute exacerbation of CHF (congestive heart failure): H/O TAVR - History of CHF with edema and markedly elevated NT-proBNP reported historically. - hold IV diuretics (IV bumetanide) due to worsening renal function - Complete troponin EKG series with noted moderate troponin elevation. Mass of upper lobe of right lung: - Right upper lobe opacity on CT concerning for mass; less likely pneumonia by report. - Follow-up pleural fluid cytology - Appreciate pulmonology consultation: will likely need outpatient bronchoscopy and biopsy. Anemia - acute on chronic anemia - low iron with normal ferritin - can give a bag of IV iron here, which can also help with HF. - JENNY per nephrology Pulmonary emboli: - CT angiogram shows emboli in lower lobe pulmonary arteries; patient recently had interruption of apixaban. - Reviewed limited TTE. Monitor on telemetry with risk of arrhythmia. - Chest pain/troponin elevation likely related to PE and effusion - restart apixaban Pulmonary hypertension: - Resumed his usual medication with Adempas and Opsumit. Hyperglycemia - check A1c - start SSI - adjust as necessary ppx: apixaban Diet: HH Disposition - Chair time established. - discharge planning to facility when improved. PDMP PDMP Reviewed: Not Reviewed Attestations 2 Medical Necessity Statement*: ongoing inpatient for GT, PE, requiring HD, COPDex Time Spent in Patient Care: 16 - 35 minutes (>than 50% of time sp ent in counselling and/or direct pt care on unit) . Coding Level of Care Code Acute Code for Chg Fwd Diagnoses GT (acute kidney injury) N17.9 Mediastinal lymphadenopathy R59.0 Lung mass R91.8 Acute kidney injury superimposed on CKD N17.9; N18.9 Pulmonary emboli I26.99
[2025-08-29 15:42] LABS: Estmated Average Glucose 148; Hemoglobin A1C 6.8 % (4.0-6.0)
--- NOTE | 2025-08-29 18:30 | P.PN_ITS ---
Subjective 2 Subjective: no new c/o Medications: Reviewed: Yes Vitals/I&O/Wt Last Vital Signs Temp 97.8 F 08/29/25 16:00 Pulse 97 08/29/25 16:00 Resp 12 08/29/25 16:00 BP 108/48 08/29/25 16:00 Pulse Ox 95 08/29/25 16:00 O2 Del Method Nasal Cannula 08/29/25 14:00 O2 Flow Rate 3 08/29/25 14:00 08/29/25 08/29/25 08/29/25 06:59 14:59 22:59 Intake Total 360 / 360 Balance 360 / 360 Weight last 48 hrs Weight 78.8 kg Weight 76.5 kg Weight 78.4 kg Physical Exam 2 Narrative: GEN: nad, alert, conversant HEAD: normocephalic, atraumatic EYES: eomi, anicteric sclera HEENT: MMM NECK: no jvd CV: RRR, no murmur LUNGS: diminished BS ABD: soft, nt ,nd EXT: trace LE edema SKIN: no rash NEURO: grossly normal Data 08/29/25 03:45 08/29/25 03:45 Micro: Microbiology 08/26/25 15:00 Gram Stain - Final Pleural Fluid Body Fluid Culture - Final A&P Assessment and plan 1. GT (acute kidney injury): 1. 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 Outpatient AV fistula and vein mapping planned. - His gt is likely due to contrast induced nephropathy. He was initiated on renal replacement therapy due to worseinig renal function and diminished UOP with increased oxygen requirements. -s/p HD x 2 sessions , next hD sunday 2. Acute on chronic respiratory failure- Multifactorial in the setting of lung mass versus consolidation, PE , pleural effusion. 3. Metabolic acidosis- due to gt on ckd. will improve with hd 4. Anemia in ckd- cont JENNY 5. History of coronary artery disease, cardiomyopathy and CHF 6. History of TAVR PDMP PDMP Reviewed: Not Reviewed Attestations 2 Medical Necessity Statement*: per [facility] Coding Level of Care Code Acute Code for [facility] Fwd Diagnoses GT (acute kidney injury) N17.9
[2025-08-30] VITALS (19 sets, daily range): BP systolic 104–150; BP diastolic 42–70; PULSE 100–115; RESP 12–24; TEMP 36.4–36.9; O2SAT 90–98; BMI 30.6
[2025-08-30 03:06] LABS: Hematocrit 21.3 % (37-53); Hemoglobin 6.70 g/dL (11.27-16.99); Mean Corpuscular HGB Conc 31.5 g/dL (30-55); Mean Corpuscular Hemoglobin 28.0 pg (27-33); Mean Corpuscular Volume 89.1 fl (82-101); Nucleated Red Blood Cells % 1.2 %; Platelet Count 149 10^3/cmm (157-399); Red Blood Count 2.39 10^6/uL (3.85-5.65); White Blood Count 11.48 10^3/uL (3.29-11.43)
[2025-08-30 03:20] LABS: Alanine Aminotransferase 17 U/L (0-41); Albumin Level 3.1 g/dL (3.5-5.2); Alkaline Phosphatase 174 U/L (40-130); Aspartate Amino Transferase 31 U/L (0-40); Blood Urea Nitrogen 74 mg/dL (8-23); Calcium 8.1 mg/dL (8.5-10.5); Carbon Dioxide 20 mmol/L (22-29); Chloride 100 mmol/L (98-107); Globulin 2.4 g/dL (1.3-4.6); Glucose 325 mg/dL (65-115); Osmolality Calculated 316 mOsm/kg (285-295); Sodium 136 mmol/L (136-145); Total Protein 5.5 g/dL (6.6-8.7)
[2025-08-30 03:21] LABS: Creatinine Clr Calc Pharmacy 17.8463
[2025-08-30 03:22] LABS: Anion Gap 20.1 (5-19); Potassium 4.1 mmol/L (3.5-5.1)
--- NOTE | 2025-08-30 04:06 | PC.NURSE ---
Patient Hgb was 6.70. Dr Howard notified and new orders for repaeat H&H and type and screen was placed.
[2025-08-30 04:15] LABS: C.Diff PCR (Lab) NEGATIVE (Negative)
[2025-08-30] MEDS: RIOCIGUAT 2.5 MG 2.5 EACH PO ×3 (04:55→20:17)
[2025-08-30] MEDS: MACITENTAN 10 MG 10 EACH PO (04:56)
[2025-08-30 05:45] LABS: Hematocrit 21.8 % (37-53); Hemoglobin 6.90 g/dL (11.27-16.99)
[2025-08-30] MEDS: pantoprazole 40 mg SDV IVP ×2 (07:54→20:17)
--- NOTE | 2025-08-30 11:20 | PM.PN ---
Subjective Subjective: Diarrhea this AM. Vitals/I&O/Wt Last Vital Signs Temp 98.4 F 08/30/25 08:00 Pulse 103 H 08/30/25 08:54 Resp 18 08/30/25 08:54 BP 128/53 08/30/25 08:00 Pulse Ox 93 08/30/25 08:54 O2 Del Method Nasal Cannula 08/30/25 08:54 O2 Flow Rate 3 08/30/25 08:54 08/29/25 08/30/25 08/30/25 22:59 06:59 14:59 Output Total 150 / 150 Balance -150 / 210 Weight last 48 hrs Weight 80.9 kg Weight 78.8 kg Weight 76.5 kg Physical Exam Narrative: Physical Exam Const: no acute distress, average body habitus and patient oriented x3 HENMT: normocephalic and atraumatic Eye: Equal, round and reactive pupils present and EOMs intact bilaterally Neck/C-Spine: full ROM, no lymphadenopathy and no JVD, TDC in place. Resp: normal respiratory effort, No retractions, No use of accessory muscles and clear to auscultation bilaterally Cardio: no JVD, regular rate, regular rhythm, S1/S2 normal, No gallops, No murmurs, No rubs, Peripheral pulses 2+ throughout GI: Soft to palpation, non-tender, No hepatosplenomegaly present and no masses Extremity: BL LE Neuro: patient oriented x 3 Data 08/30/25 05:35 08/30/25 02:53 Micro: Microbiology 08/30/25 03:18 Occult Blood (FIT) - Final Stool - Stool Aspirate 08/26/25 15:00 Gram Stain - Final Pleural Fluid Body Fluid Culture - Final A&P Assessment and plan 1. GT (acute kidney injury): 2. Mediastinal lymphadenopathy: 3. Lung mass: 4. Acute kidney injury superimposed on CKD: 5. Pulmonary embolism: 6. Troponin level elevated: Plan: 70 year old male presenting with hypoxia. Acute respiratory failure with hypoxia: Pleural effusion: - s/p thoracentesis performed with 500 cc of transudative fluid - O2 per NC at 3L which is his home dose. - Gram stain negative for organisms, noted some WBCs. COPD exacerbation: - Sputum uncollected so far. - cont. prednisone 40 mg daily. - Continue ceftriaxone. Breathing treatments. GERD H. pylori - Continue PPI. Sucralfate. - cont flagyl, clarithromycin, levofloxacin Acute kidney injury superimposed on CKD: - HD catheter placed - cont. HD per nephrology - The patient has chair time for dialysis after discharge. - plans for outpatient AV fistula and vein mapping, sees nephrology at [place] - HD planned for Mon. Acute exacerbation of CHF (congestive heart failure): HFpEF H/O TAVR - History of CHF with edema and markedly elevated NT-proBNP reported historically. - hold IV diuretics (IV bumetanide) due to worsening renal function - Complete troponin EKG series with noted moderate troponin elevation. - preserved EF of 59% on echo from 08/24, no regional wall motion abnormalities. Mass of upper lobe of right lung: - Right upper lobe opacity on CT concerning for mass; less likely pneumonia by report. - Follow-up pleural fluid cytology - Appreciate pulmonology consultation: will likely need outpatient bronchoscopy and biopsy. Anemia of CKD - acute on chronic anemia - low iron with normal ferritin - can give a bag of IV iron here, which can also help with HF. - JENNY per nephrology - Hb 6.8 this AM, can give one unit. Pulmonary emboli: - CT angiogram shows emboli in lower lobe pulmonary arteries; patient recently had interruption of apixaban. - Reviewed limited TTE. Monitor on telemetry with risk of arrhythmia. - Chest pain/troponin elevation likely related to PE and effusion - restart apixaban Pulmonary hypertension: - Resumed his usual medication with Adempas and Opsumit. DM - unclear type - A1c 6.8 - start SSI, add glargine 10 units bedtime - give extra 10 units lispro now. - adjust as necessary, may need increased anti-diabetic regimen on D/C ppx: apixaban Diet: HH Disposition - Chair time established. - discharge planning to facility when improved. PDMP PDMP Reviewed: Not Reviewed Attestations Medical Necessity Statement*: Ongoing inpatient admission for COPD exacerbation with CHF, volume overload, CKD needing dialysis, PE Time Spent in Patient Care: 16 - 35 minutes (>than 50% of time spent in counselling and/or direct pt care on unit). Coding Level of Care Code Acute Code for Chg Fwd Diagnoses GT (acute kidney injury) N17.9 Mediastinal lymphadenopathy R59.0 Lung mass R91.8 Acute kidney injury superimposed on CKD N17.9; N18.9 Pulmonary embolism I26.99 Troponin level elevated R79.89
[2025-08-30] MEDS: cefTRIAXone 1,000 mg SDV 1000 MG IVP (11:33)
[2025-08-30] MEDS: insulin glargine 100 units/1 mL 10 UNIT SUBCUT (20:18)
--- NOTE | 2025-08-30 20:22 | P.PN_ITS ---
Subjective 2 Subjective: no new c/o Medications: Reviewed: Yes Vitals/I&O/Wt Last Vital Signs Temp 98.4 F 08/30/25 19:44 Pulse 108 H 08/30/25 19:44 Resp 23 H 08/30/25 19:44 BP 118/53 08/30/25 19:44 Pulse Ox 96 08/30/25 19:44 O2 Del Method Nasal Cannula 08/30/25 19:44 O2 Flow Rate 3 08/30/25 16:00 08/30/25 08/30/25 08/30/25 06:59 14:59 22:59 Intake Total 120 / 120 350 / 470 Balance 120 / 120 350 / 470 Weight last 48 hrs Weight 80.9 kg Weight 78.8 kg Physical Exam 2 Narrative: GEN: nad, alert, conversant HEAD: normocephalic, atraumatic EYES: eomi, anicteric sclera HEENT: MMM NECK: no jvd CV: RRR, no murmur LUNGS: diminished BS ABD: soft, nt ,nd EXT: trace LE edema SKIN: no rash NEURO: grossly normal Data 08/31/25 04:57 08/31/25 04:57 Micro: Microbiology 08/30/25 03:18 Occult Blood (FIT) - Final Stool - Stool Aspirate A&P Assessment and plan 1. GT (acute kidney injury): 1. 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 Outpatient AV fistula and vein mapping planned. - His gt is likely due to contrast induced nephropathy. He was initiated on renal replacement therapy due to worseinig renal function and diminished UOP with increased oxygen requirements. -s/p HD x 2 sessions , next hD sunday 2. Acute on chronic respiratory failure- Multifactorial in the setting of lung mass versus consolidation, PE , pleural effusion. 3. Metabolic acidosis- due to gt on ckd. will improve with hd 4. Anemia in ckd- cont JENNY 5. History of coronary artery disease, cardiomyopathy and CHF 6. History of TAVR PDMP PDMP Reviewed: Not Reviewed Attestations 2 Medical Necessity Statement*: per [facility] Coding Level of Care Code Acute Code for [facility] Fwd Diagnoses GT (acute kidney injury) N17.9
[2025-08-31] VITALS (7 sets, daily range): BP systolic 99–131; BP diastolic 43–60; PULSE 100–109; RESP 16–26; TEMP 36.5–37.6; O2SAT 91–96
[2025-08-31] MEDS: MACITENTAN 10 MG 10 EACH PO (05:01)
[2025-08-31] MEDS: RIOCIGUAT 2.5 MG 2.5 EACH PO ×2 (05:01→11:38)
[2025-08-31 05:34] LABS: Hematocrit 24.0 % (37-53); Hemoglobin 7.60 g/dL (11.27-16.99); Mean Corpuscular HGB Conc 31.7 g/dL (30-55); Mean Corpuscular Hemoglobin 28.6 pg (27-33); Mean Corpuscular Volume 90.2 fl (82-101); Nucleated Red Blood Cells % 0.6 %; Platelet Count 136 10^3/cmm (157-399); Red Blood Count 2.66 10^6/uL (3.85-5.65); White Blood Count 11.78 10^3/uL (3.29-11.43)
[2025-08-31 05:53] LABS: Calcium 8.2 mg/dL (8.5-10.5); Carbon Dioxide 18 mmol/L (22-29); Chloride 101 mmol/L (98-107); Glucose 443 mg/dL (65-115); Osmolality Calculated 332 mOsm/kg (285-295); Sodium 136 mmol/L (136-145)
[2025-08-31 06:02] LABS: Creatinine Clr Calc Pharmacy 17.0079
[2025-08-31 06:03] LABS: Anion Gap 21.8 (5-19); Potassium 4.8 mmol/L (3.5-5.1)
[2025-08-31 06:04] LABS: Blood Urea Nitrogen 98 mg/dL (8-23)
--- NOTE | 2025-08-31 08:43 | PC.NURSE ---
Patient in dialysis at this time.
--- NOTE | 2025-08-31 10:47 | PC.SOCIAL ---
IMM Updated Updated pt on IMM. No questions voiced. Provided pt a copy. Initialed, dated, & timed copy in chart.
[2025-08-31] MEDS: cefTRIAXone 1,000 mg SDV 1000 MG IVP (11:38)
[2025-08-31] MEDS: pantoprazole 40 mg SDV IVP (11:39)
--- NOTE | 2025-08-31 12:28 | PC.NURSE ---
Patient discharged to home. Instruction provided regarding follow up appointments, dialysis times, sliding scale insulin use, DM2 and at home IV antibiotics. Patient and spouse both verbalized complete understanding. Asked and answered questions. [facility] Dressings to PICC and tunnelled cath changed prior to discharge. Patient taken by wheelchair to private vehicle. Patient denies pain or needs. No distress observed.
--- NOTE | 2025-08-31 12:47 | P.PN_ITS ---
Subjective 2 Subjective: no new c/o Medications: Reviewed: Yes Vitals/I&O/Wt Last Vital Signs Temp 97.9 F 08/31/25 11:49 Pulse 107 H 08/31/25 12:34 Resp 22 H 08/31/25 12:34 BP 112/43 08/31/25 12:34 Pulse Ox 91 08/31/25 12:34 O2 Del Method Nasal Cannula 08/31/25 11:49 O2 Flow Rate 3 08/31/25 11:49 08/30/25 08/31/25 08/31/25 22:59 06:59 14:59 Intake Total 350 / 470 860 / 860 Output Total 200 / 200 3000 / 3000 Balance 350 / 470 -200 / 270 -2140 / -2140 Weight last 48 hrs Weight 77.5 kg Weight 79.8 kg Weight 79.8 kg Weight 80.9 kg Physical Exam 2 Narrative: GEN: nad, alert, conversant HEAD: normocephalic, atraumatic EYES: eomi, anicteric sclera HEENT: MMM NECK: no jvd CV: RRR, no murmur LUNGS: diminished BS ABD: soft, nt ,nd EXT: trace LE edema SKIN: no rash NEURO: grossly normal Data 08/31/25 04:57 08/31/25 04:57 A&P Assessment and plan 1. GT (acute kidney injury): 1. 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 Outpatient AV fistula and vein mapping planned. - His gt is likely due to contrast induced nephropathy. He was initiated on renal replacement therapy due to worseinig renal function and diminished UOP with increased oxygen requirements. -s/p HD x 2 sessions , next hD today 2. Acute on chronic respiratory failure- Multifactorial in the setting of lung mass versus consolidation, PE , pleural effusion. 3. Metabolic acidosis- due to gt on ckd. will improve with hd 4. Anemia in ckd- cont JENNY 5. History of coronary artery disease, cardiomyopathy and CHF 6. History of TAVR PDMP PDMP Reviewed: Not Reviewed Attestations 2 Medical Necessity Statement*: per [facility] Coding Level of Care Code Acute Code for [facility] Fwd Diagnoses GT (acute kidney injury) N17.9
--- NOTE | 2025-08-31 14:10 | P.DS_ITS ---
Discharge Providers Date of Admission: 08/24/25 07:16 Date of Discharge: August 31, 2025 Attending Provider at Admission: Sherice Gonzalez MD Attending Provider at Discharge: Curz Fang MD Primary Care Provider: Patrick Nick MD Diagnoses at Discharge Discharge Diagnosis 1. GT (acute kidney injury): Reason for Visit Reason for Visit: SOB Pain across chest into neck Discharge Data Studies Completed and Pending Completed Studies During Hospitalization Category Date Time Status CT angio chest PE protcl 03433 Stat Cat Scan 08/24/25 04:06 Completed CXRP [XR chest 1V portable [id number]] Stat Exams 08/26/25 14:55 Completed XR chest 1V portable [id number] Stat Exams 08/24/25 01:29 Completed CV. echo limited [id number] Routine Ultrasound 08/24/25 10:45 Completed [place] chest [id number] Routine Ultrasound 08/24/25 09:09 Completed US thoracentesis [id number] Routine Ultrasound 08/26/25 11:13 Completed Pending at discharge Category Date Time Status Leukocyte Reduced RBC Routine Lab 08/30/25 05:35 Results Type and Screen Routine Lab 08/30/25 05:35 Results Cytology [PTH] Routine Pth 08/26/25 11:27 Received Radiology Impressions Chest CTA 08/24/25 04:06 IMPRESSION: 1. Right upper lobe opacity likely neoplastic in origin. An inflammatory cause is felt to be less likely. 2. Mediastinal, right hilar and upper abdominal adenopathy. 3. [id number] right and small left pleural effusion with compressive atelectasis. 4. Emphysema. 5. Probable mild interstitial edema. 6. Pulmonary emboli involving 2nd and 3rd order branches of the lower lobe pulmonary arteries. The RV/LV ratio is 1.24. 7. Please see above comments for additional details. COMMENTS: The presence of pulmonary emphysema on CT is an independent risk factor for lung cancer. In the absence of a history or active diagnosis of lung cancer, it is recommended that this patient with emphysema be evaluated for enrollment in a low dose CT lung cancer screening program. ADDENDUM: 08/24/25 0604 COMMENT: THIS REPORT CONTAINS FINDINGS THAT MAY BE CRITICAL TO PATIENT CARE. The exam findings were verbally communicated by me to MARY ALVARADO via telephone conference at 6:02 AM CDT on 08/24/2025. The findings were acknowledged and understood. Chest Ultrasound 08/24/25 09:09 IMPRESSION: Very small right-sided pleural effusion. Effusion would probably be amenable to thoracentesis if necessary for diagnostic purposes. Less than 200 cc likely. Thoracentesis Ultrasound 08/26/25 11:13 IMPRESSION: 1. RIGHT thoracentesis yielding 500 cc of fluid. 2. Chest radiograph to follow to evaluate for pneumothorax. Chest X-Ray 08/26/25 14:55 IMPRESSION: 1. No pneumothorax. 2. Central vascular enlargement is present, consistent with pulmonary venous congestion. 3. Mild right costophrenic angle blunting suggesting mild right pleural effusion. C-Arm Fluoroscopy 08/27/25 09:42 IMPRESSION: 1. Double-lumen dialysis catheter has been placed. 2. The shorter lumen may terminate near the junction of the brachiocephalic vein with the RIGHT subclavian vein. Consider follow-up chest radiograph to confirm position. The radiograph obtained on the C-arm is slightly lordotic which may change the appearance of the position of the catheter. Recommend further evaluation before using the dual lumen catheter. Laboratory Results WBC 11.78 10^3/uL (3.29-11.43) H 08/31/25 04:57 RBC 2.66 10^6/uL (3.85-5.65) L 08/31/25 04:57 Hgb 7.60 g/dL (11.27-16.99) L 08/31/25 04:57 Hct 24.0 % (37-53) L 08/31/25 04:57 MCV 90.2 fl (82-101) 08/31/25 04:57 MCH 28.6 pg (27-33) 08/31/25 04:57 MCHC 31.7 g/dL (30-55) 08/31/25 04:57 RDW 16.0 % (12.1-15.1) H 08/31/25 04:57 Plt Count 136 10^3/cmm (157-399) L 08/31/25 04:57 MPV 10.9 fL (7.4-10.4) H 08/31/25 04:57 Neut % (Auto) 78.5 % 08/31/25 04:57 Lymph % (Auto) 11.2 % 08/31/25 04:57 [place] % (Auto) 7.5 % 08/31/25 04:57 Eos % (Auto) 0.3 % 08/31/25 04:57 Baso % (Auto) 0.1 % 08/31/25 04:57 Neut # (Auto) 9.26 10^3/uL (1.8-7.7) H 08/31/25 04:57 Lymph # (Auto) 1.3 10^3/uL (0.8-4.8) 08/31/25 04:57 [place] # (Auto) 0.9 10^3/uL (0.2-0.9) 08/31/25 04:57 Eos # (Auto) 0.0 10^3/uL (0.0-0.8) 08/31/25 04:57 Baso # (Auto) 0.0 10^3/uL (0.0-0.1) 08/31/25 04:57 Nucleated RBC % (auto) 0.6 % 08/31/25 04:57 Nucleated RBCs # 0.1 /100WBC 08/31/25 04:57 APTT 61.7 SECONDS (23.9-36.7) H 08/26/25 06:12 Specimen Type Arterial 08/24/25 01:49 Sample Site Brachial, left 08/24/25 01:49 ABG pH 7.36 (7.35-7.45) 08/24/25 01:49 ABG pCO2 29.1 mmHg (35-45) L 08/24/25 01:49 ABG pO2 63.3 mmHg (80.0-100.0) L 08/24/25 01:49 ABG HCO3 16.3 mmol/L (22-26) L 08/24/25 01:49 ABG Base Excess -8.1 mmol/L (-2.0-2.0) L 08/24/25 01:49 Patrice Test N/a 08/24/25 01:49 Hematocrit 28.9 % (42-52) L 08/24/25 01:49 Hgb O2 Saturation 90.9 % (95-100) L 08/24/25 01:49 Carboxyhemoglobin 1.2 %THgb (0.4-20.1) 08/24/25 01:49 Methemoglobin 0.6 % (0.4-1.5) 08/24/25 01:49 Total Hemoglobin 9.4 g/dL (14-18) L 08/24/25 01:49 O2 Delivery Device Nc 08/24/25 01:49 O2 Liters/Min 1.0 % 08/24/25 01:49 Bakery Worker ID Perez 08/24/25 01:49 Sodium 136 mmol/L (136-145) 08/31/25 04:57 Potassium 4.8 mmol/L (3.5-5.1) 08/31/25 04:57 Chloride 101 mmol/L (98-107) 08/31/25 04:57 Carbon Dioxide 18 mmol/L (22-29) L 08/31/25 04:57 Anion Gap 21.8 (5-19) H 08/31/25 04:57 BUN 98 mg/dL (8-23) H* 08/31/25 04:57 Creatinine 3.8 mg/dL (0.7-1.2) H 08/31/25 04:57 GFR Calculation Not Reportable 08/31/25 04:57 Glucose 443 mg/dL (65-115) H 08/31/25 04:57 POC Glucose 245 mg/dL (70-110) H 08/31/25 11:29 Estimat Average Glucose 148 08/29/25 03:45 Hemoglobin A1c 6.8 % (4.0-6.0) H 08/29/25 03:45 Calculated Osmolality 332 mOsm/kg (285-295) H 08/31/25 04:57 Lactic Acid 1.1 mmol/L (0.5-2.2) 08/24/25 01:12 Calcium 8.2 mg/dL (8.5-10.5) L 08/31/25 04:57 Magnesium 1.4 mg/dL (1.7-2.3) L 08/24/25 09:46 Iron 41 ug/dL (59-158) L 08/25/25 05:37 TIBC 150 mcg/dl 08/25/25 05:37 % Saturation 27.3 % (20-50) 08/25/25 05:37 Unsat Iron Binding 109 ug/dL (112-347) L 08/25/25 05:37 Ferritin 357 ng/mL (30-400) 08/25/25 05:37 Total Bilirubin 0.2 mg/dL (0.15-1.2) 08/30/25 02:53 AST 31 U/L (0-40) 08/30/25 02:53 ALT 17 U/L (0-41) 08/30/25 02:53 Alkaline Phosphatase 174 U/L (40-130) H 08/30/25 02:53 Lactate Dehydrogenase 233 U/L (135-225) H 08/26/25 05:00 Creatine Kinase 197 U/L (39-308) 08/25/25 05:37 Troponin T Baseline 108 ng/L (0-15) H* 08/24/25 01:12 Troponin T 120 Minute 101.5 ng/L (0-15) H 08/24/25 03:16 Delta Troponin T -6.5 ABS# (0-10) L 08/24/25 03:16 Troponin T Hi Sens 6Hr 96.05 ng/L (0-15) H 08/24/25 07:17 Troponin T Hi Sens 6Hr Delta -11.95 ng/L (0-12) L 08/24/25 07:17 NT-Pro-B Natriuret Pep 9922 pg/mL (0-125) H 08/24/25 01:12 Total Protein 5.5 g/dL (6.6-8.7) L 08/30/25 02:53 Albumin 3.1 g/dL (3.5-5.2) L 08/30/25 02:53 Globulin 2.4 g/dL (1.3-4.6) 08/30/25 02:53 TSH 3.09 uIU/mL (0.27-4.20) 08/24/25 09:46 Fld Crystal Laterality Right pleural fluid 08/26/25 15:00 Pleural Color Pale yellow (Pale Yellow) 08/26/25 15:00 Pleural Appearance Cloudy (CLEAR) 08/26/25 15:00 Pleural pH 6.00 (6.5-7.5) L 08/26/25 15:00 Pleural WBC 120.000 /uL (0-1000) 08/26/25 15:00 Pleural RBC 0.000 10^3/uL 08/26/25 15:00 Pleural Mononuc # Auto 0.080 10^3/uL 08/26/25 15:00 Pleural Polynuclear % 33 % 08/26/25 15:00 Pleural Polynuclear # 0.040 10^3/uL 08/26/25 15:00 Pleural Mononuclear % 67 % 08/26/25 15:00 Pleural Other Cells Rt Right lung 08/26/25 15:00 Pleural Total Protein 1.8 g/dL 08/26/25 15:00 Pleural Albumin 1.2 g/dL 08/26/25 15:00 Pleural LDH 86 U/L 08/26/25 15:00 Nasal MRSA (PCR) Not detected (Negative) 08/25/25 03:16 C. difficile (PCR) Negative (Negative) 08/30/25 03:18 Hep Bs Antigen Non-reactive (Nonreactive) 08/27/25 03:02 Hep Bs Antibody < 3.5 (11.5-1000) L 08/27/25 03:02 Influenza A (PCR) Negative (Negative) 08/24/25 02:25 Influenza Type B (PCR) Negative (Negative) 08/24/25 02:25 RSV (PCR) Negative (Negative) 08/24/25 02:25 SARS-CoV-2 (PCR) Negative (Negative) 08/24/25 02:25 Pathology Message Yes 08/26/25 15:00 Blood Type O Positive 08/30/25 05:35 Rho(D) Type Rh positive 08/30/25 05:35 Antibody Screen Negative 08/30/25 05:35 Crossmatch See Detail 08/30/25 05:35 Vitals Last Vital Signs Temp 97.9 F 08/31/25 11:49 Pulse 107 H 08/31/25 12:34 Resp 22 H 08/31/25 12:34 BP 112/43 08/31/25 12:34 Pulse Ox 91 08/31/25 12:34 O2 Del Method Nasal Cannula 08/31/25 11:49 O2 Flow Rate 3 08/31/25 11:49 Discharge Plan Discharge Patient Disposition: Home Health Service Condition: Stable Prescriptions: New insulin glargine [Basaglar KwikPen U-100 Insulin] 100 unit/mL (3 mL) insulin pen 10 unit SUBCUT BEDTIME Qty: 15 0RF insulin aspart U-100 [Novolog FlexPen U-100 Insulin] 100 unit/mL (3 mL) insulin pen See Rx Instructions .ROUTE .COMPLEX Qty: 15 0RF Rx Instructions: Inject, subcut, 3 times daily, after meals, based on moderate dose insulin sliding scale Continued hydrocodone-acetaminophen 5-325 mg tablet 1 tab PO Q8H PRN (Reason: pain) 4 Days Qty: 12 0RF clarithromycin 500 mg tablet 500 mg PO BID 14 Days Qty: 28 0RF metronidazole 500 mg tablet 500 mg PO BID 14 Days Qty: 28 0RF levothyroxine 112 mcg tablet 112 mcg PO DAILY Adempas 2.5 mg Tablet 2.5 mg PO TID bumetanide 1 mg tablet 2 mg PO DAILY pantoprazole [Protonix] 40 mg tablet,delayed release (DR/EC) 40 mg PO BID 30 Days Qty: 60 0RF sucralfate [Carafate] 1 gram tablet 1 g PO BID 28 Days Qty: 56 0RF ceftriaxone 1 gram recon soln 1 g IV DAILY atorvastatin 40 mg tablet 40 mg PO DAILY acetaminophen [Tylenol Extra Strength] 500 mg Tablet 1,000 mg PO Q6H PRN (Reason: Fever Or Pain) Eliquis 5 mg tablet 5 mg PO BID Opsumit 10 mg tablet 10 mg PO DAILY Discontinued levofloxacin 500 mg tablet 500 mg PO DAILY Qty: 7 0RF No Action (DME) Diabetic shoes See Rx Instructions .ROUTE .MEDSUPPLY Qty: 1 0RF Rx Instructions: With 3 pairs of inserts (DME) Cam boot to left See Rx Instructions .Route .MEDSUPPLY Qty: 1 0RF Rx Instructions: As directed (DME) CAM walker See Rx Instructions .Route .MEDSUPPLY Qty: 1 0RF Rx Instructions: As directed Discharge Order = DC NOW: Discharge Order (Routine); Ordered 08/31/25 Ordered By: Cruz Fang Referrals: [facility] [Outside] [facility] - [Outside] - 09/02/25 1:00 pm Referral Note: You are set up for Dialysis on Mondays, Wednesdays, & Fridays at 1pm, you will need to be there at 1240. Your first session is scheduled for this Sunday. [place] [facility]. [Outside] Referral Note: [facility] on dialysis Alfred Lezama MD [Physician, Pulmonology] - 09/07/25 9:15 am Referral Note: Patrick Nick MD [Primary Care Provider, Family Practice] - 09/03/25 1:00 pm Discharge Diet: Cardiac Discharge Activity: Resume usual activity Patient Instructions: Insulin Aspart, Recombinant (By injection) (Novolog, Novolog..., Insulin Glargine (By injection) (Lantus, Lantus SoloStar, Toujeo, Semglee), Pulmonary Embolism (DC), Acute Kidney Injury (DC), Acute Wound Care (DC), COPD Stoplight, Opioid Safety, Post Anesthesia Care, Patient Portal & El Instructions Activity Restrictions/Additional Instructions: - For your end-stage renal disease on dialysis, please follow-up with outpatient dialysis -Follow-up with nephrology in [place] - For your acute on chronic anemia, please follow-up with primary care provider, recheck hemoglobin in 48 hours - For your H. pylori, continue Flagyl, clarithromycin, Protonix, Carafate - For your osteomyelitis continue Rocephin follow-up with Dr. Higginbotham - For the mass of upper lobe of the right lung, please follow-up with pulmonary - For your pulmonary emboli continue Eliquis, have your primary care provider recheck your hemoglobin in 48 hours -Please monitor your blood sugars closely -Monitor your blood sugars 3 times daily as after meals -Please record your blood sugars, and a blood sugar log -For your NovoLog -Please inject blood sugar after meals based on sliding scale provided -Do not inject insulin if you do not eat as hypoglycemia kills -This is a NovoLog sliding scale -Insulin sliding ?fingerstick? Insulin ?141-180?2 units/sq 181-220?4 units/sq ?221-260?6 units/sq ?261-300 8 units/sq ?301-350?10 units/sq ?351-400 12 units/sq ?401-450?14 units/sq >450? 16 units/sq -If your blood sugar is greater than 500 go to the emergency room -If your blood sugar is less than 60 or at anytime you feel lightheaded or dizzy or diaphoretic or have chest palpitations check your blood sugar, and eat a hard candy or drink orange juice and go immediately to the emergency room -Remember hypoglycemia kills, so if his blood sugar is less than 60 we have to increase it by taking in a sugary meal such as a hard candy or orange juice and go to the emergency room -If you have any questions please call us where here to help Coding Level of Care Code Acute Code for Chg Fwd Diagnoses GT (acute kidney injury) N17.9
== END 2025-08-31 12:27 | disposition home health service (06) | DRG 133 ==
LOC: ER 05:26 → CSU 07:16
PROVIDERS: Hospitalist; Internal Medicine; Student in an Organized Health Care Education/Training Program; Admitting Provider Student in an Organized Health Care Education/Training Program; Emergency Provider Emergency Medicine; PCP Family Medicine; Visit Provider Family Medicine
PROC: 0JH63XZ Insertion of Tunneled Vascular Access Device into Chest Subcutaneous Tissue and Fascia, Percutaneous Approach (ICD-10-PCS; principal; 2025-08-27 13:30)
DX: J96.21 Acute and chronic respiratory failure with hypoxia (principal); I13.0 Hypertensive heart and chronic kidney disease with heart failure and stage 1 through stage 4 chronic kidney disease, or unspecified chronic kidney disease; I26.99 Other pulmonary embolism without acute cor pulmonale; N17.9 Acute kidney failure, unspecified; I50.23 Acute on chronic systolic (congestive) heart failure; J91.8 Pleural effusion in other conditions classified elsewhere; I27.20 Pulmonary hypertension, unspecified; N18.4 Chronic kidney disease, stage 4 (severe); E87.20 Acidosis, unspecified; D63.1 Anemia in chronic kidney disease; D63.8 Anemia in other chronic diseases classified elsewhere; M86.9 Osteomyelitis, unspecified; A04.8 Other specified bacterial intestinal infections; Z99.81 Dependence on supplemental oxygen; Z99.2 Dependence on renal dialysis; J44.1 Chronic obstructive pulmonary disease with (acute) exacerbation; R00.0 Tachycardia, unspecified; R19.7 Diarrhea, unspecified; R59.0 Localized enlarged lymph nodes; R91.8 Other nonspecific abnormal finding of lung field; R79.89 Other specified abnormal findings of blood chemistry; E11.65 Type 2 diabetes mellitus with hyperglycemia; R11.2 Nausea with vomiting, unspecified; E03.8 Other specified hypothyroidism; I25.10 Atherosclerotic heart disease of native coronary artery without angina pectoris; K21.9 Gastro-esophageal reflux disease without esophagitis; E11.22 Type 2 diabetes mellitus with diabetic chronic kidney disease; Z79.899 Other long term (current) drug therapy; Z87.891 Personal history of nicotine dependence; Z79.01 Long term (current) use of anticoagulants; Z86.711 Personal history of pulmonary embolism; Z79.890 Hormone replacement therapy; Z95.2 Presence of prosthetic heart valve; Z85.828 Personal history of other malignant neoplasm of skin
CPT/HCPCS: 32555; 36415; 36416; 36430; 36592; 36600; 71045; 71275; 76000; 76604; 77001; 80048; 80053; 80503; 82042; 82274; 82550; 82728; 82805; 82962; 83036; 83540; 83550; 83605; 83615; 83735; 83880; 83986; 84157; 84443; 84484; 85014; 85018; 85025; 85730; 86403; 86706; 86850; 86900; 86902; 86920; 87070; 87075; 87205; 87340; 87449; 87493; 87637; 88112; 89050; 90935; 93005; 93308; 94640; 96372; 96374; 96375; 99285; C1750; J0696; J1644; J1815; J1938; J2270; J2405; J2470; J2704; J2916; J2919; J3010; J3475; J3490; J7030; J7512; J9999; P9016; P9046; Q5105

== ENCOUNTER 2025-09-04 12:40 | Inpatient (IN) | payer MEDICARE, SELFPAY ==
[2025-09-04] VITALS (57 sets, daily range): BP systolic 90–114; BP diastolic 38–63; PULSE 88–108; RESP 13–35; TEMP 36.5–37.1; O2SAT 83–98; BMI 29.7; BMI 29.2
--- NOTE | 2025-09-04 12:41 | XR_ITS ---
WS: [id number] XR chest 1V portable [id number] REASON FOR EXAM: chest pain FINDINGS: Right arm PICC line with the tip in the distal SVC. Dual-lumen right IJ dialysis catheter which is just beyond the right subclavian IVC junction. Moderate tortuosity and ectasia of the ascending and descending thoracic aorta with calcification of the aortic arch. Mild cardiomegaly. Endovascular aortic valve stent graft. Prominent central pulmonary veins. Presumed chronic reticular interstitial lung opacities with mild peribronchial cuffing in both lower lungs peripherally and adjacent to the diaphragm. There may be superimposition of early interstitial edema on these chronic lung findings, difficult to be certain. No other potential acute pulmonary par enchymal or pleural abnormality. Severe degenerative spondylosis in the thoracic spine. Significant shoulder osteoarthritis bilaterally. XR/XR chest 1V portable [id number] IMPRESSION: Possible superimposition of early interstitial edema on chronic abnormal lungs. Tenuous dialysis catheter position.
--- NOTE | 2025-09-04 12:41 | ECG_ITS ---
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 Measurements Intervals [place] Rate: 110 P: 0 [place]: 0 QRS: 76 QRSD: 98 T: 63 QT: 375 QTc: 509 Interpretive Statements ATRIAL FIBRILLATION WITH RAPID VENTRICULAR RESPONSE POSSIBLE ANTERIOR MYOCARDIAL INFARCTION , PROBABLY OLD [30 ms Q WAVE IN V3/V4, OR R < 0.2 mV IN V4] ABNORMAL RHYTHM ECG Compared to ECG 08/24/2025 11:01:44 No significant changes Electronically Signed On 09-05-2025 11:58:55 CDT by Franklin Nuno M.D. [email or web address]
--- NOTE | 2025-09-04 12:42 | W.ED.CHESTPA ---
HPI - Chest Pain General: Chief Complaint: Weakness Stated Complaint: chest pain Time Seen by Provider: 09/04/25 12:41 History of Present Illness: 70-year-old male with a history of end-stage renal disease on dialysis, chronic hypoxemic respiratory failure on 2 L nasal cannula at all times, pulmonary embolism on chronic anticoagulation with Eliquis, lung mass, anemia, diabetes, hypertension and COPD who presents emergency room with chest pain. He also complains of bilateral lower extremity swelling and generalized weakness over the last couple of days. He has a PICC and a dialysis port. No known fevers. No altered mental status. Related Data Home Medications ?Medication ?Instructions ?Recorded ?Confirmed bumetanide 1 mg tablet 2 mg PO DAILY 11/27/23 08/24/25 levothyroxine 112 mcg tablet 112 mcg PO DAILY 11/27/23 08/24/25 riociguat 2.5 mg tablet (Adempas) 2.5 mg PO TID 11/27/23 08/24/25 acetaminophen 500 mg tablet 1,000 mg PO Q6H PRN Fever Or Pain 07/18/25 08/24/25 (Tylenol Extra Strength) apixaban 5 mg tablet (Eliquis) 5 mg PO BID 07/18/25 08/24/25 atorvastatin 40 mg tablet 40 mg PO DAILY 07/18/25 08/24/25 macitentan 10 mg tablet (Opsumit) 10 mg PO DAILY 08/02/25 08/24/25 ceftriaxone 1 gram solution for 1 g IV DAILY 08/24/25 08/24/25 injection Previous Rx's ?Medication ?Instructions ?Recorded Cam boot to left #1 ea 05/15/23 Diabetic shoes #1 ea 08/25/24 CAM walker #1 ea 04/20/25 hydrocodone 5 mg-acetaminophen 325 1 tab PO Q8H PRN pain 4 days #12 08/03/25 mg tablet tabs pantoprazole 40 mg tablet,delayed 40 mg PO BID 30 days #60 tabs 08/07/25 release (Protonix) clarithromycin 500 mg tablet 500 mg PO BID 14 days #28 tabs 08/19/25 metronidazole 500 mg tablet 500 mg PO BID 14 days #28 tabs 08/19/25 insulin aspart U-100 100 unit/mL See Rx Instructions .Route 08/31/25 (3 mL) subcutaneous pen (Novolog .COMPLEX #15 mL FlexPen U-100 Insulin aspart) insulin glargine 100 unit/mL (3 10 unit (0.1 mL) SUBCUT BEDTIME 08/31/25 mL) subcutaneous pen (Basaglar #15 mL KwikPen U-100 Insulin) Allergies Allergy/AdvReac Type Severity Reaction Status Date / Time No Known Allergies Allergy Verified 08/24/25 01:13 Review of Systems Narrative: Constitutional symptoms: Negative except as documented in HPI. Skin symptoms: Negative except as documented in HPI. Eye symptoms: Negative except as documented in HPI. ENMT symptoms: Negative except as documented in HPI. Respiratory symptoms: Negative except as documented in HPI. Cardiovascular symptoms: Negative except as documented in HPI. Gastrointestinal symptoms: Negative except as documented in HPI. Genitourinary symptoms: Negative except as documented in HPI. Musculoskeletal symptoms: Negative except as documented in HPI. Neurologic symptoms: Negative except as documented in HPI. Psychiatric symptoms: Negative except as documented in HPI. Endocrine symptoms: Negative except as documented in HPI. PFSH ED PFSH: Medical History (Updated 09/04/25 @ 14:30 by Arin Kirby MD) Mediastinal lymphadenopathy Lung mass Pericardial effusion Tobacco abuse Anemia Diabetes Warfarin anticoagulation Chest pain History of pulmonary embolism Congestive heart failure History of nonmelanoma skin cancer Hypothalamic hypothyroidism Hypertension History of blood clots COPD (chronic obstructive pulmonary disease) History of pulmonary embolism Surgical History S/P TAVR (transcatheter aortic valve replacement) History of rotator cuff surgery Social History (Updated 08/24/25 @ 09:38 by Freeman Rodriguez MD) Smoking and tobacco/nicotine status: former use of tobacco/nicotine Quit status (tobacco/nicotine): has quit using Year quit tobacco: 2024 Former quit date comment: a week ago Alcohol intake: never Substance/Drug Use: never Marital status: Life Partner Physical Exam Narrative: EXAM NARRATIVE: General: Alert, no acute distress. Skin: Warm, dry. Head: Normocephalic, atraumatic. Neck: Supple, trachea midline. Eye: Extraocular movements are intact. Ears, nose, mouth and throat: mucosa moist. Cardiovascular: 2-3+ pitting tibial edema. Irregularly irregular with tachycardia. Respiratory: Lungs are clear to auscultation, respirations are non-labored, breath sounds are equal, Symmetrical chest wall expansion. Gastrointestinal: Soft, Nontender, Non distended Musculoskeletal: Normal ROM, no deformity. Neurological: Alert and oriented, No focal neurological deficit observed. Psychiatric: Cooperative, appropriate mood & affect. Course Vital Signs: Vital signs: Vital Signs Temperature 98.1 F 09/04/25 12:52 Pulse Rate 108 H 09/04/25 12:52 Respiratory Rate 20 H 09/04/25 12:52 Blood Pressure 94/47 09/04/25 12:52 Pulse Oximetry 98 09/04/25 12:52 Oxygen Delivery Me thod Nasal Cannula 09/04/25 12:52 Oxygen Flow Rate 2 09/04/25 12:52 MDM - Chest Pain Medical Decision Making Differential diagnosis for patient with chest pain includes but is not limited to and based on the above HPI, review of systems and physical exam: Pneumonia. unstable angina. angina. Acute coronary syndrome / DE. Pulmonary embolism. Costochondritis / musculoskeletal. Pleurisy. Pericarditis. Esophageal spasm. Pancreatis. Cholecystitis. Orders placed to evaluate differential diagnosis based on the above differential, HPI and physical exam EKG: Time 1245. Rate 110. Atrial fibrillation with rapid ventricular response, No ST-T changes, no ectopy, This was reviewed and interpreted by myself the ER physician at 1250 Lab Review: Laboratory results were reviewed and interpreted by myself the emergency room physician. No leukocytosis. Worsening anemia with a hemoglobin of 6.3. Platelets of 72. BUN and creatinine are 54 and 2.8. This is expected as patient was supposed to have dialysis today. Potassium is 2.3. Chest x-ray: Dual-lumen right IJ dialysis catheter. Right arm PICC. Prominent pulmonary veins. Possible early congestive failure. This was reviewed and interpreted by myself the emergency room physician. I also reviewed the radiology report. I reviewed the patient's medical record. 70-year-old male with a history of end-stage renal disease on dialysis, chronic hypoxemic respiratory failure on 2 L nasal cannula at all times, pulmonary embolism on chronic anticoagulation with Eliquis, lung mass, anemia, diabetes, hypertension and COPD Reexamination: Patient's pressure has remained soft but stabilized around 100. He received about 100 cc of fluid because his pressure was getting lower. This was held once his pressure came back up given possible early failure, dialysis patient etc. No altered mental status. No focal motor deficits. He is on 2 L nasal cannula with good oxygen saturations. Consultation: I have spoken with Dr. Fang who is on-call for the hospital service who agrees to admission. Consultation: I spoke with Dr. Solorio who is on-call for nephrology who will arrange for dialysis. Afraid this patient may be on the verge of fluid overloaded and giving blood may put him over the edge Assessment and plan: Acute on chronic anemia Hypotension Chest pain Elevated troponin End-stage renal disease on dialysis ?2 units packed red blood cells ordered in the emergency room. -I discussed the patient with the hospitalist on-call who is admitting the patient. - Discussed findings and plan with patient. Answered any questions. - All laboratory values were reviewed and interpreted personally by myself, the ER physician - All imaging was reviewed and interpreted personally by myself, the ER physician. - Evaluation and treatment of this problem were appropriate in the emergency setting Lab Data 09/04/25 13:16 09/04/25 13:16 Radiology Impressions Chest X-Ray 09/04/25 12:41 IMPRESSION: Possible superimposition of early interstitial edema on chronic abnormal lungs. Tenuous dialysis catheter position. Laboratory Results WBC 10.53 10^3/uL (3.29-11.43) 09/04/25 13:16 RBC 2.18 10^6/uL (3.85-5.65) L 09/04/25 13:16 Hgb 6.30 g/dL (11.27-16.99) L* 09/04/25 13:16 Hct 19.7 % (37-53) L* 09/04/25 13:16 MCV 90.4 fl (82-101) 09/04/25 13:16 MCH 28.9 pg (27-33) 09/04/25 13:16 MCHC 32.0 g/dL (30-55) 09/04/25 13:16 RDW 16.5 % (12.1-15.1) H 09/04/25 13:16 Plt Count 72 10^3/cmm (157-399) L 09/04/25 13:16 MPV 12.3 fL (7.4-10.4) H 09/04/25 13:16 Neut % (Auto) 78.1 % 09/04/25 13:16 Lymph % (Auto) 10.7 % 09/04/25 13:16 [place] % (Auto) 9.5 % 09/04/25 13:16 Eos % (Auto) 0.7 % 09/04/25 13:16 Baso % (Auto) 0.0 % 09/04/25 13:16 Neut # (Auto) 8.22 10^3/uL (1.8-7.7) H 09/04/25 13:16 Lymph # (Auto) 1.1 10^3/uL (0.8-4.8) 09/04/25 13:16 [place] # (Auto) 1.0 10^3/uL (0.2-0.9) H 09/04/25 13:16 Eos # (Auto) 0.1 10^3/uL (0.0-0.8) 09/04/25 13:16 Baso # (Auto) 0.0 10^3/uL (0.0-0.1) 09/04/25 13:16 Nucleated RBC % (auto) 0 % 09/04/25 13:16 Nucleated RBCs # 0.0 /100WBC 09/04/25 13:16 Sodium 133 mmol/L (136-145) L 09/04/25 13:16 Potassium 3.3 mmol/L (3.5-5.1) L 09/04/25 13:16 Chloride 94 mmol/L (98-107) L 09/04/25 13:16 Carbon Dioxide 25 mmol/L (22-29) 09/04/25 13:16 Anion Gap 17.3 (5-19) 09/04/25 13:16 BUN 54 mg/dL (8-23) H 09/04/25 13:16 Creatinine 2.8 mg/dL (0.7-1.2) H 09/04/25 13:16 GFR Calculation Not Reportable 09/04/25 13:16 Glucose 235 mg/dL (65-115) H 09/04/25 13:16 Calculated Osmolality 298 mOsm/kg (285-295) H 09/04/25 13:16 Calcium 7.4 mg/dL (8.5-10.5) L 09/04/25 13:16 Phosphorus 3.4 mg/dL (2.5-4.5) 09/04/25 13:16 Magnesium 1.5 mg/dL (1.7-2.3) L 09/04/25 13:16 Total Bilirubin 0.4 mg/dL (0.15-1.2) 09/04/25 13:16 AST 21 U/L (0-40) 09/04/25 13:16 ALT 15 U/L (0-41) 09/04/25 13:16 Alkaline Phosphatase 148 U/L (40-130) H 09/04/25 13:16 Troponin T Baseline 135 ng/L (0-15) H* 09/04/25 13:16 NT-Pro-B Natriuret Pep 06192 pg/mL (0-125) H 09/04/25 13:16 Total Protein 4.5 g/dL (6.6-8.7) L 09/04/25 13:16 Albumin 2.7 g/dL (3.5-5.2) L 09/04/25 13:16 Globulin 1.8 g/dL (1.3-4.6) 09/04/25 13:16 Blood Type O Positive 09/04/25 13:48 Rho(D) Type Rh positive 09/04/25 13:48 Antibody Screen Negative 09/04/25 13:48 Crossmatch See Detail 09/04/25 13:48 All radiology interpretation(s) finalized by discharge Clincial Decision Support The following clinical decision support tools were used to aid in care of the patient HEART Score -> History: Moderately Suspicious, EKG: Non-specific Changes, Age: 65 or more yrs, Risk Factors: >/=3 Risk Factors, Troponin: Baseline Trop >45 ng/L. Resulting HEART Score: 8. Discharge Plan Discharge Patient Disposition: Admitted As Inpatient Clinical Impression: Acute on chronic anemia, Hypotension, End stage renal disease on dialysis, Edema, Chest pain, Elevated troponin Condition: Stable Coding Level of Care Code ED [employer] Rolls for [facility] Fwd Heart Score HEART Score Components History: Moderately Suspicious EKG: Non-specific Changes Age: 65 or more yrs Risk Factors: >/=3 Risk Factors Troponin: Baseline Trop >45 ng/L HEART Score RESULT HEART Score: 8
--- OUTSIDE RECORDS SUMMARY | 2025-09-04 12:47 | XMS_ITS | Encounter Summary ---
Author Organization [facility] Address [address] [facility] [address] [place] [address] Phone Care Team Providers Care Building Attendant Name Role Phone Unavailable Primary Care Provider Unavailabl e Encounter Details Date Type Department Care Team ([facility] st Contact Info) Description 12/17/2023 Orders Only [facility] [address] [facility] [address] [place] [address] Stage 3 chronic kidney disease, [...]
--- OUTSIDE RECORDS SUMMARY | 2025-09-04 12:47 | XMS_ITS | Clinical Summary ---
Author Organization [facility] Address [address] [place] [address] Phone Care Team Providers Care Senior Net Software Developer Name Role Phone Unavailable Primary Care Provider Unavailabl e Encounters Date Type Department Care Team Description 09/02/2025 Orders Only [facility] [address] [place] [address] Tomeka Kelly MD from Last 3 Months Social History Tobacco Use Types Packs/Day Years Used Date Smoking Tobacco: Never Assessed Sex and Gender Information Value Date Recorded Sex Assigned at Not on file Legal Sex Male 11:36 AM EST Gender Identity Not on file Sexual Orientation Not on file Plan of Treatment Health Maintenance Due Date Last Done Comments Pneumococcal Vaccine: 50+ Ye ars (1 of 2 - PCV) 1973 Colorectal Cancer Screening: Annual FOBT 2003 Colorectal Cancer Screening: Colonoscopy 2003 Colorectal Cancer Screening: Sigmoidoscopy 2003 Influenza Vaccine (#1) 2025 08/22/2024 Diabetes: Hemoglobin A1C 08/28/2025 12/06/2023 Diabetes: Ophthalmology Exam 08/28/2025 Diabetes: Pedal Pulse Checked 08/28/2025 Diabetes: Sensory Foot Exam 08/28/2025 Diabetes: Visual Foot Exam 08/28/2025 Hepatitis B Vaccine Aged Out No longe r eligible based on patient's age to complete this topic Procedures Procedure Name Priority Date/Time Associated Diagnosis Comments HEMATOLOGY Routine 09/02/2025 CHEMISTRY Routine 09/02/2025 from Last 3 Months Results * (ABNORMAL) HEMATOLOGY (09/02/2025) Pathologist [facility] Neutrophils 81.1(H) 40.0 - 75.0 % [facility] Lymphocytes Relative 8.9(L) 19.0 - 48.0 % [facility] Monocytes 5.4 3.0 - 10.0 % [facility] Eosinophils Relative 1.7 0.0 - 7.0 % [facility] Basophils Relative 1.4 0.0 - 1.5 % [facility] CARLOS 1.4 0.0 - 4.0 % [facility] WBC 11.17(H) 4.80 - 10.80 1000/mcL [facility] RBC 2.66(L) 4.70 - 6.10 mill/mcL [facility] Hematocrit 25.0(L) 42.0 - 52.0 % [facility] MCV 94 80 - 100 fl [facility] MCH 30.9 27.0 - 31.0 pg [facility] MCHC 32.9 30.0 - 36.0 g/dL [facility] RDW 17.5(H) 11.5 - 14.5 % [facility] Hemoglobin 8.2(L) 14.0 - 18.0 g/dL [facility] Hemoglobin x 3 24.6(L) 42.0 - 54.0 % [facility] 09/02/2025 09/03/2025 11: 22 AM CDT Narrative [facility]25 Unless otherwise specified, test(s) performed at: [facility], [address] [place] [address] INFORMATION TECHNOLOGY SPECIALIST: Magdi Montes De Oca M.D. For any questions, please call customer service at FREQUENCY:MONTHLY Resulting Agency Comment Specimen source: Blood us Tomeka Kelly MD LAB BLOOD ORDERABLES Final Re sult [facility] See order comments or contact performing lab Unknown, [place] * (ABNORMAL) [facility] (09/02/2025) Pathologist [facility] Sodium 135(L) 136 - 145 mEq/L [facility] Potassium 3.7 3.5 - 5.1 mEq/L [facility] Chloride 101 96 - 108 mEq/L [facility] BUN 73(H) 6 - 19 mg/dL [facility] Creatinine 3.14(H) 0.60 - 1.30 mg/dL [facility] BUN/Creatinine Ratio 23.2(H) 10.0 - 20.0 [facility] Bicarbonate (CO2) 24 22 - 29 mEq/L [facility] Calcium 8.2(L) 8.4 - 10.2 mg/dL [facility] Comment: Verified by repeat analysis. Corrected Calcium 9.2 8.4 - 10.2 mg/dL [facility] Comment: Corrected Calcium is not equivalent to measured Ionized Calcium. Total Protein 5.2(L) 6.0 - 8.5 g/dL [facility] Albumin 2.8(L) 3.5 - 5.2 g/dL [facility] Globulin, Total 2.4 2.0 - 4.0 g/dL [facility] A/G Ratio 1.2 1.0 - 2.0 [facility] Iron 33(L) 45 - 160 mcg/dL [facility] UIBC 144(L) 155 - 355 mcg/dL [facility] TIBC 177(L) 185 - 515 mcg/dL [facility] Iron Saturation (TSat) 19(L) 20 - 55 % [facility] 09/02/2025 09/03/2025 11: 39 AM CDT Narrative [facility] - 09/03/2025 Unless otherwise specified, test(s) performed at: [facility], [address] [place] [address] INFORMATION TECHNOLOGY SPECIALIST: Magdi Montes De Oca M.D. For any questions, please call customer service at FREQUENCY:MONTHLY Resulting Agency Comment Specimen source: Serum us Tomeka Kelly MD LAB BLOOD ORDERABLES Edited R esult - Final [facility] See order comments or contact performing lab Unknown, [place] from Last [address] [place] [address] PPO ([id number])
--- OUTSIDE RECORDS SUMMARY | 2025-09-04 12:47 | XMS_ITS | Data Portability ---
Author Organization [facility]ELISA [facility] Address [address] [address] Care Team Providers Care Curtain Inspector Name Role Phone ANAI VALDIVIA Primary Care [...] Organization Details Last Modified Time Details Appointments HOSPITAL F/U 20 2024 01:00P M SHILO STODDARD, GOLD MARKER Not available Not available Not available Lab CMP, serum or plasma 2024 025 [place] [facility] [address], [facility] 1, [place], [address], 08/11/2025 15:58:28 CBC 2024 025 [facility], [address] [facility], [facility] 1, [place], [address], 08/11/2025 14:28:00 CBC - ok per Treba/ will fax to Dr. Johny ALY 2024 025 [facility], [address], [address], [place], [address], 07/31/2025 10:43:25 BMP, serum or plasma - ordered by Dr Mcclain/ mikaela fax YF 2024 025 [place] [facility], [address], [address], [place], [address], 07/31/2025 11:19:52 BMP, serum or plasma - ORDERED BY DR MCCLAIN/ MIKAELA FAX RESULTS YF 2024 025 [facility], [address], [address], [place], [address], 07/15/2025 11:49:21 CBC 2024 025 [facility], [address], [address], [place], [address], 07/08/2025 10:33:33 renal function panel, serum 2024 025 [employer] [facility], [address] [place] [address], [address], [place], [place], [address], 07/09/2025 05:15:17 iron + total iron-bind ing capacity (TIBC), serum 2024 025 [employer] [facility], [address] [place] [address], [address], [place], [address], 07/09/2025 05:15:16 ferritin, serum or plasma 2024 025 [employer] [facility], [address] [place] [address], [address], [place], [address], 07/09/2025 05:15:18 hemoglobi n A1C/hemog lobin total, QN, blood 2024 025 [place] [facility], [address], [address], [place], [address], 06/01/2025 11:51:19 thyrotrop in, QN, serum or plasma 2024 025 ANIL Mittal [facility], [address], [address], [place], [address], 06/01/2025 12:12:18 Referral None recorded. Procedures None recorded. Surgeries None recorded. Imaging None recorded. Medication Orders None recorded. Patient TargetsNo targets recorded. Patient Instructions Encounter Date Encounter Id Patient Instructions Last Modified By Organization Details Last Modified Time 08/11/2025 [id number] hospital discharge follow up* Not available 08/11/2025 13:20:06 Call or return for questions or concerns. Not available 08/11/2025 13:16:55 Reason for Referral None Reported. Results Created Date Observation Date Name Description Value Unit Range Abnormal Flag Note LastModifiedBy Organization Detail LastModifiedTime 06/01/2006/01/2025 HBA1C hemaglobin A1C 6.6 4.2-6. 5 high Not Available [facility] [address], [place], [address], 06/01/2025 11:51:19 06/01/2006/01/2025 TSH TSH 1.70 uIU/m L 0.49-3 .82 Not Available [facility] [address], [place], [address], 06/01/2025 12:12:18 07/08/20 25 07/08/2025 CBC WBC 8.3 x10 4.5-10 .5 Not Available [facility] [address], [place], [address], 07/08/2025 10:33:33 07/08/20 25 07/08/2025 CBC RBC 2.64 x10 4.30-5 .90 low Not Available Mittal [facility] [address] [facility] 1, [place], [address], 07/08/2025 10:33:33 07/08/20 25 07/08/2025 CBC HGB 7.9 g/dL 13.5-1 8.0 low Not Available [facility] [address] [facility] 1, [place], [address], 07/08/2025 10:33:33 07/08/20 25 07/08/2025 CBC HCT 24.8 % 35.0-6 0.0 low Not Available [facility] [address] [facility] 1, [place], [address], 07/08/2025 10:33:33 07/08/20 25 07/08/2025 CBC MCV 93.8 fL 80.0-9 9.9 Not Available [facility]ittal [facility] [address] [facility] 1, [place], [address], 07/08/2025 10:33:33 07/08/20 25 07/08/2025 CBC MCH 30.0 pg 27.0-3 2.0 Not Available [facility] [address] [facility] 1, [place], [address], 07/08/2025 10:33:33 07/08/20 25 07/08/2025 CBC MCHC 31.9 g/dL 32.0-3 6.0 low Not Available [facility]ittal [facility] [address] [facility] 1, [place], [address], 07/08/2025 10:33:33 07/08/20 25 07/08/2025 CBC RDW 14.5 % 11.5-1 4.5 Not Available [facility]ittal [facility] [address] [facility] 1, [place], [address], 07/08/2025 10:33:33 07/08/20 25 07/08/2025 CBC plt 165.4 x10 150.0- 451.0 Not Available [facility] [address] [facility] 1, [place], [address], 07/08/2025 10:33:33 07/08/20 25 07/08/2025 CBC lymphocytes % 21.5 % 20.0-5 0.0 Not Available [facility] [address] [facility] 1, [place], [address], 07/08/2025 10:33:33 07/08/20 25 07/08/2025 CBC granulcytes % 64.0 % 30.0-7 0.0 Not Available [facility] [address] [facility] 1, [place], [address], 07/08/2025 10:33:33 07/08/20 25 07/08/2025 CBC monocytes % 9.1 % 2.0-16 .0 Not Available [facility] [address] [address], [place], [address], 07/08/2025 10:33:33 07/08/20 25 07/08/2025 CBC granulcytes# 5.3 x10 Not Stephanie ilable [facility] [address] [facility] 1, [place], [address], 07/08/2025 10:33:33 07/08/20 25 07/08/2025 CBC lymphocytes # 1.8 x10 Not Available [facility] [address] [facility] 1, [place], [address], 07/08/2025 10:33:33 07/08/20 25 07/08/2025 CBC monocytes # 0.8 x10 Not Avai lable [facility] [address] [facility] 1, [place], [address], 07/08/2025 10:33:33 07/08/20 25 07/09/2025 IRON AND TOTAL IRON DARIAN NG CAPAC ITY iron, total 54 mcg/d L 50-180 normal Not Available [address], [address], 07/09/2025 05:15:15 07/08/20 25 07/09/2025 IRON AND TOTAL IRON DARIAN NG CAPAC ITY iron binding capacity 240 mcg/d L_(ca lc) 250-42 5 low Not Available [address], [address], 07/09/2025 05:15:15 07/08/2007/09/2025 IRON AND TOTAL IRON DARIAN NG CAPAC ITY % saturation 23 %_(ca lc) 20-48 normal Not Available [address], [address], 07/09/2025 05:15:15 07/08/2007/09/2025 RENAL FUNCT ION PANEL glucose 155 mg/dL 65-99 high Fasti ng refer ence inter joel For someo ne witho ut known diabe jimmie, a gluco se value >125 mg/dL indic ates that they may have diabe jimmie and this shoul d be confi rmed with a follo w-up test. Not Available [address], [address], 07/09/2025 05:15:17 07/08/2007/09/2025 RENAL FUNCT ION PANEL urea nitrogen (BUN) 61 mg/dL 7-25 high Not Available [facility] [address], [address], 07/09/2025 05:15:17 07/08/20 25 07/09/2025 RENAL FUNCT ION PANEL creatinine 3.42 mg/dL 0.70-1 .28 high Not Available [facility] [address], [address], 07/09/2025 05:15:17 07/08/20 25 07/09/2025 RENAL FUNCT ION PANEL eGFR 18 mL/mi n/1.7 3m2 > or = 60 low Not Available [address], [address], 07/09/2025 05:15:17 07/08/20 25 07/09/2025 RENAL FUNCT ION PANEL BUN/creatini ne ratio 18 (calc ) 6-22 normal Not Available [address], [address], 07/09/2025 05:15:17 07/08/20 25 07/09/2025 RENAL FUNCT ION PANEL sodium 139 mmol/ L 135-14 6 normal Not Available [address], [address], 07/09/2025 05:15:17 07/08/20 25 07/09/2025 RENAL FUNCT ION PANEL potassium 4.4 mmol/ L 3.5-5. 3 normal Not Available [address], [address], 07/09/2025 05:15:17 07/08/20 25 07/09/2025 RENAL FUNCT ION PANEL chloride 109 mmol/ L 98-110 normal Not Available [address], [address], 07/09/2025 05:15:17 07/08/20 25 07/09/2025 RENAL FUNCT ION PANEL carbon dioxide 20 mmol/ L 20-32 normal Not Available [address], [address], 07/09/2025 05:15:17 07/08/20 25 07/09/2025 RENAL FUNCT ION PANEL calcium 8.4 mg/dL 8.6-10 .3 low Not Available [address], [address], 07/09/2025 05:15:17 07/08/20 25 07/09/2025 RENAL FUNCT ION PANEL phosphate ( phosphorus) 5.9 mg/dL 2.1-4. 3 high Not Available [address], [address], 07/09/2025 05:15:17 07/08/20 25 07/09/2025 RENAL FUNCT ION PANEL albumin 3.3 g/dL 3.6-5. 1 low Not Available [address], [address], 07/09/2025 05:15:17 07/08/20 25 07/09/2025 SHARRI TIN ferritin 71 NG/mL 24-380 normal Not Available [address], [address], 07/09/2025 05:15:18 07/15/20 25 07/15/2025 BMP (MALE ) glucose 176.0 mg/dL 60.0-9 9.0 high Not Available [facility] [address] [address], [place], [address], 07/15/2025 11:49:21 07/15/20 25 07/15/2025 BMP (MALE ) BUN (blood urea nitrogen) 57.0 mg/dL 10.0-2 6.0 high Not Available [facility] [address] [address], [place], [address], 07/15/2025 11:49:21 07/15/20 25 07/15/2025 BMP (MALE ) creatinine (serum) 3.1 mg/dL 0.4-1. 5 high Not Available [facility] [address] [facility], [place], [address], 07/15/2025 11:49:21 07/15/20 25 07/15/2025 BMP (MALE ) BUN/creatini ne ratio 18.39 ratio Not Available [facility] [address] [facility], [place], [address], 07/15/2025 11:49:21 07/15/2007/15/2025 BMP (MALE ) calcium 9.0 mg/dL 8.4-10 .5 Not Available [facility] [address] [facility] 1, [place], [address], 07/15/2025 11:49:21 07/15/20 25 07/15/2025 BMP (MALE ) sodium 141.0 mmol/ L 136.0- 145.0 Not Available [facility] [address] [facility] 1, [place], [address], 07/15/2025 11:49:21 07/15/20 25 07/15/2025 BMP (MALE ) potassium 4.7 mmol/ L 3.5-5. 1 Not Available [facility] [address] [facility] 1, [place], [address], 07/15/2025 11:49:21 07/15/20 25 07/15/2025 BMP (MALE ) chloride 112.0 mmol/ L 98.0-1 10.0 abnormal Not Available [facility]ittal [facility] [address] [facility] 1, [place], [address], 07/15/2025 11:49:21 07/15/2007/15/2025 BMP (MALE ) C02 19.0 mmol/ L 22.0-3 1.0 low Not Available [facility]ittal [facility] [address] [facility] 1, [place], [address], 07/15/2025 11:49:21 07/31/2007/31/2025 CBC WBC 7.7 x10 4.5-10 .5 Not Available [facility]ittal [facility] [address] [facility] 1, [place], [address], 07/31/2025 10:43:25 07/31/20 07/31/2025 CBC RBC 2.53 x10 4.30-5 .90 low Not Available Mittal [facility] [address] [facility] 1, [place], [address], 07/31/2025 10:43:25 07/31/20 25 07/31/2025 CBC HGB 7.5 g/dL 13.5-1 8.0 low Not Available Mittal [facility] [address] [facility] 1, [place], [address], 07/31/2025 10:43:25 07/31/2007/31/2025 CBC HCT 24.2 % 35.0-6 0.0 low Not Available Mittal [facility] [address] [facility] 1, [place], [address], 07/31/2025 10:43:25 07/31/2007/31/2025 CBC MCV 95.5 fL 80.0-9 9.9 Not Available [facility]ittal [facility] [address] [facility] 1, [place], [address], 07/31/2025 10:43:25 07/31/2007/31/2025 CBC MCH 29.4 pg 27.0-3 2.0 Not Available [facility] [address] [facility] 1, [place], [address], 07/31/2025 10:43:25 07/31/2007/31/2025 CBC MCHC 30.8 g/dL 32.0-3 6.0 low Not Available [facility] [address] [facility] 1, [place], [address], 07/31/2025 10:43:25 07/31/2007/31/2025 CBC RDW 15.0 % 11.5-1 4.5 high Not Available [facility] [address] [facility] 1, [place], [address], 07/31/2025 10:43:25 07/31/20 25 07/31/2025 CBC plt 162.3 x10 150.0- 451.0 Not Available [facility] [address] [facility] 1, [place], [address], 07/31/2025 10:43:25 07/31/20 25 07/31/2025 CBC lymphocytes % 22.8 % 20.0-5 0.0 Not Available [facility] [address] [facility] 1, [place], [address], 07/31/2025 10:43:25 07/31/20 25 07/31/2025 CBC granulcytes % 64.1 % 30.0-7 0.0 Not Available [facility] [address] [facility] 1, [place], [address], 07/31/2025 10:43:25 07/31/20 25 07/31/2025 CBC monocytes % 9.2 % 2.0-16 .0 Not Available [facility] [address] [facility] 1, [place], [address], 07/31/2025 10:43:25 07/31/20 25 07/31/2025 CBC granulcytes# 4.9 x10 Not Stephanie ilable [facility] [address] [facility] 1, [place], [address], 07/31/2025 10:43:25 07/31/20 25 07/31/2025 CBC lymphocytes # 1.8 x10 Not Available [facility] [address] [facility] 1, [place], [address], 07/31/2025 10:43:25 07/31/20 25 07/31/2025 CBC monocytes # 0.7 x10 Not Avai [facility]able [facility] [address] [facility] 1, [place], [address], 07/31/2025 10:43:25 07/31/20 25 07/31/2025 BMP (MALE ) glucose 165.0 mg/dL 60.0-9 9.0 high Not Available [facility] [address] [facility] 1, [place], [address], 07/31/2025 11:19:52 07/31/20 25 07/31/2025 BMP (MALE ) BUN (blood urea nitrogen) 71.0 mg/dL 10.0-2 6.0 high Not Available [facility] [address] [facility] 1, [place], [address], 07/31/2025 11:19:52 07/31/20 25 07/31/2025 BMP (MALE ) creatinine (serum) 3.5 mg/dL 0.4-1. 5 high Not Available [facility]ittal [facility] [address] [facility] 1, [place], [address], 07/31/2025 11:19:52 07/31/20 25 07/31/2025 BMP (MALE ) BUN/creatini ne ratio 20.29 ratio Not Available [facility] [address] [facility] 1, [place], [address], 07/31/2025 11:19:52 07/31/2007/31/2025 BMP (MALE ) calcium 8.8 mg/dL 8.4-10 .5 Not Available [facility]ittal [facility] [address] [facility] 1, [place], [address], 07/31/2025 11:19:52 07/31/20 25 07/31/2025 BMP (MALE ) sodium 141.0 mmol/ L 136.0- 145.0 Not Available [facility] [address] [facility] 1, [place], [address], 07/31/2025 11:19:52 07/31/2007/31/2025 BMP (MALE ) potassium 4.6 mmol/ L 3.5-5. 1 Not Available [facility] [address] [facility] 1, [place], [address], 07/31/2025 11:19:52 07/31/2007/31/2025 BMP (MALE ) chloride 112.0 mmol/ L 98.0-1 10.0 abnormal Not Available [facility]ittal [facility] [address] [facility] 1, [place], [address], 07/31/2025 11:19:52 07/31/2007/31/2025 BMP (MALE ) C02 17.0 mmol/ L 22.0-3 1.0 low Not Available [facility] [address] [facility] 1, [place], [address], 07/31/2025 11:19:52 08/11/2008/11/2025 CBC WBC 10.2 x10 4.5-10 .5 Not Available [facility] [address] [facility] 1, [place], [address], 08/11/2025 14:28:00 08/11/20 25 08/11/2025 CBC RBC 3.26 x10 4.30-5 .90 low Not Available [facility] [address] [facility] 1, [place], [address], 08/11/2025 14:28:00 08/11/20 25 08/11/2025 CBC HGB 9.7 g/dL 13.5-1 8.0 low Not Available [facility] [address] [facility] 1, [place], [address], 08/11/2025 14:28:00 08/11/20 25 08/11/2025 CBC HCT 30.8 % 35.0-6 0.0 low Not Available [facility] [address] [facility] 1, [place], [address], 08/11/2025 14:28:00 08/11/20 25 08/11/2025 CBC MCV 94.4 fL 80.0-9 9.9 Not Available [facility] [address] [facility] 1, [place], [address], 08/11/2025 14:28:00 08/11/20 25 08/11/2025 CBC MCH 29.9 pg 27.0-3 2.0 Not Available [facility] [address] [facility] 1, [place], [address], 08/11/2025 14:28:00 08/11/20 25 08/11/2025 CBC MCHC 31.6 g/dL 32.0-3 6.0 low Not Available [facility] [address] [facility] 1, [place], [address], 08/11/2025 14:28:00 08/11/20 25 08/11/2025 CBC RDW 16.0 % 11.5-1 4.5 high Not Available [facility] [address] [facility] 1, [place], [address], 08/11/2025 14:28:00 08/11/20 25 08/11/2025 CBC plt 198.7 x10 150.0- 451.0 Not Available [facility] [address] [facility] 1, [place], [address], 08/11/2025 14:28:00 08/11/20 25 08/11/2025 CBC lymphocytes % 18.7 % 20.0-5 0.0 low Not Available [facility] [address] [facility] 1, [place], [address], 08/11/2025 14:28:00 08/11/20 25 08/11/2025 CBC granulcytes % 66.6 % 30.0-7 0.0 Not Available [facility] [address] [facility] 1, [place], [address], 08/11/2025 14:28:00 08/11/20 25 08/11/2025 CBC monocytes % 11.8 % 2.0-16 .0 Not Available [facility] [address] [facility] 1, [place], [address], 08/11/2025 14:28:00 08/11/20 25 08/11/2025 CBC granulcytes# 6.8 x10 Not Stephanie ilable [facility] [address] [facility], [place], [address], 08/11/2025 14:28:00 08/11/20 25 08/11/2025 CBC lymphocytes # 1.9 x10 Not Available [facility] [address] [address], [place], [address], 08/11/2025 14:28:00 08/11/20 25 08/11/2025 CBC monocytes # 1.2 x10 Not Avai lable [facility] [address] [facility], [place], [address], 08/11/2025 14:28:00 08/11/20 25 08/11/2025 CMP (MALE ) glucose 132.0 mg/dL 60.0-9 9.0 high Not Available [facility] [address] [facility] 1, [place], [address], 08/11/2025 15:58:28 08/11/20 25 08/11/2025 CMP (MALE ) BUN (blood urea nitrogen) 71.0 mg/dL 10.0-2 6.0 high Not Available [facility] [address] [facility] 1, [place], [address], 08/11/2025 15:58:28 08/11/20 08/11/2025 CMP (MALE ) creatinine (serum) 3.8 mg/dL 0.4-1. 5 high Not Available [facility] [address] [facility] 1, [place], [address], 08/11/2025 15:58:28 08/11/20 25 08/11/2025 CMP (MALE ) BUN/creatini ne ratio 18.68 ratio Not Available [facility] [address] [facility] [address] [facility] 1, [place], [address], 08/11/2025 15:58:28 08/11/20 25 08/11/2025 CMP (MALE ) eGFR calculated 16.8 Not Available [facility] [address] [facility] 1, [place], [address], 08/11/2025 15:58:28 08/11/20 25 08/11/2025 CMP (MALE ) total protein 7.0 g/dL 6.0-8. 5 Not Available [facility] [address] [facility] 1, [place], [address], 08/11/2025 15:58:28 08/11/20 25 08/11/2025 CMP (MALE ) total bilirubin 0.7 mg/dL 0.2-1. 3 Not Available [facility] [address] [facility] 1, [place], [address], 08/11/2025 15:58:28 08/11/20 25 08/11/2025 CMP (MALE ) albumin 3.5 g/dL 3.5-5. 5 Not Available [facility] [address] [facility] 1, [place], [address], 08/11/2025 15:58:28 08/11/20 25 08/11/2025 CMP (MALE ) globulin 3.5 calc Not Available [facility] [address] [facility], [place], [address], 08/11/2025 15:58:28 08/11/20 25 08/11/2025 CMP (MALE ) AST (SGOT) 37.0 U/L 0.0-46 .0 Not Available [facility] [address] [facility], [place], [address], 08/11/2025 15:58:28 08/11/20 25 08/11/2025 CMP (MALE ) altv (SGPT) 14.0 U/L 13.0-6 9.0 normal Not Available [facility] [address] [facility] 1, [place], [address], 08/11/2025 15:58:28 08/11/20 25 08/11/2025 CMP (MALE ) A/G ratio 1.0 ratio Not Available [facility] [address] [facility] 1, [place], [address], 08/11/2025 15:58:28 08/11/20 25 08/11/2025 CMP (MALE ) ALP phos 208.0 U/L 30.0-1 40.0 abnormal Not Available [facility] [address] [facility] 1, [place], [address], 08/11/2025 15:58:28 08/11/20 25 08/11/2025 CMP (MALE ) calcium 9.3 mg/dL 8.4-10 .5 Not Available [facility] [address] [facility] 1, [place], [address], 08/11/2025 15:58:28 08/11/20 25 08/11/2025 CMP (MALE ) sodium 137.0 mmol/ L 136.0- 145.0 Not Available [facility] [address] [facility] 1, [place], [address], 08/11/2025 15:58:28 08/11/20 25 08/11/2025 CMP (MALE ) potassium 4.4 mmol/ L 3.5-5. 1 Not Available [facility] [address] [facility] 1, [place], [address], 08/11/2025 15:58:28 08/11/20 25 08/11/2025 CMP (MALE ) chloride 106.0 mmol/ L 98.0-1 10.0 normal Not Available [facility] [address] [facility] 1, [place], [address], 08/11/2025 15:58:28 08/11/20 25 08/11/2025 CMP (MALE ) C02 20.0 mmol/ L 22.0-3 1.0 low Not Available [facility] [address] [facility] 1, [place], [address], 08/11/2025 15:58:28 08/11/20 25 08/11/2025 CMP (MALE ) anion gap 11.0 calc Not Available [facility] [address] [facility] [address], [place], [address], 08/11/2025 15:58:28 08/11/20 25 08/11/2025 CMP (MALE ) osmolality 304.3 calc Not Available [facility] [address] [facility] [address], [place], [address], 08/11/2025 15:58:28 08/11/20 25 08/11/2025 hospi alley disch arge follo w up* Records Reviewed Yes Not Available [facility] ( [facility]) [address] [place], [address], 08/11/2025 13:09:32 08/11/20 25 08/11/2025 hospi alley disch arge follo w up* Medications Reconciles Yes Not Available [facility] [facility] ([facility]) [address] [place], [address], 08/11/2025 13:09:32 Result Notes None recorded. Problems Name Problem SNOMED Code Status Onset Date Resolution Date Notes Provider Name and Address Organization Details Recorded Time Anticorajanu minet effect [id number] Aaron STODDARD, [address], [address], [facility] 5 13:04:03 Chronic ulcer of left foot Aaron STODDARD, [address], [address] [place] [address] 5, [facility] 13:04:34 Tailor's bunion of left foot 826671940377 9100 Aaron STODDARD, [address], [address], [facility] 13:04:03 Tobacco user 822224440 Aaron STODDARD, [address], [address], [facility] 13:04:03 Contusion of left shoulder 140005558609 70951 Aaron STODDARD, [address], [address], [facility] 13:04:03 History of aortic valve replaceme nt 246507716725 0 Aaron STODDARD, [address], [address], [facility] 13:04:03 Celluliti s 857705218 Aaron STODDARD, [address], [address], [facility] 13:04:03 Lumbar radiculop athy 106511380 Active SHILO STODDARD, [address], [address], [facility] 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 5 13:04:03 History of pulmonary embolus 562721763 Active SHILO STODDARD, [address], [address], [facility] 5 13:10:22 Abdominal pain 06172272 Aaron STODDARD, [address], [address], [facility] 5 13:04:03 Acute-on- chronic renal failure 464600005 Aaron STODDARD, [address], [address], [facility] 13:04:03 Thoracic back pain 304446367 Aaron STODDARD, [address], [address], [facility] 5 13:04:03 Orthostat ic hypotensi on 78307211 Active SHILO STODDARD, [address], [address], [facility] 5 13:04:03 Chest pain 39352320 Aaron STODDARD, [address], [address], [facility] 5 13:04:03 Low back strain 584965024 Aaron STODDARD, [address], [address], [facility] 5 13:04:03 Patient encounter status [id number] Aaron STODDARD, [address], [address] [place] [address] 5, [facility] 5 13:04:03 Internati onal normalize d ratio above reference range [id number] Aaron STODDARD, [address], [address], [facility] 5 13:04:03 Dehydrati on [id number] Aaron STODDARD, [address], [address], [facility] 5 13:04:03 Blood in urine [id number] Aaron STODDARD, [address], [address], [facility] 5 13:04:03 Diabetic foot ulcer 572400483 Aaron STODDARD, [address], [address], [facility] 5 13:04:03 Pericardi al effusion 661384827 Aaron STODDARD, [address], [address], [facility] 13:04:03 Acquired keratoder ma [id number] Aaron STODDRAD, [address], [address] [place] [address] 5, [facility] 5 13:04:03 Strain of muscle of chest wall [id number] [facility] SHILO STODDARD, [address], [address] [place] [address] 5, [facility] 5 13:04:03 History of malignant neoplasm of skin excluding melanoma 634244317 [facility] SHILO STODDARD, [place] [address] 5, [facility] 5 13:04:03 Acute hyponatre nithin [id number] [facility] [place] [address], [facility] 5 13:04:03 Foot pain 15842513 Aaron STODDARD [place] [address], [facility] 5 13:04:03 Acute exacerbat ion of chronic congestiv e heart failure 165022320 [facility] SHILO STODDARD, [place] [address], [facility] 5 13:04:03 Prehypert ension 768230793 Aaron STODDARD [address], [address] [place] [address] 5, [facility] 5 13:04:03 Osteomyel itis of forefoot 178001818 Aaron STODDARD [place] [address], [facility] 5 13:04:03 Acute hypoxemic respirato ry failure 141961499 [facility] SHILO STODDARD [place] [address] 5, [facility] 5 13:04:03 Pulmonary hypertens ion 10730078 Active SHILO STODDARD, [address], [address] [place] [address] 5, [facility] 5 13:04:03 COVID-19 [id number] Aaron STODDARD, [address], [address] [place] [address] 5, [facility] 5 13:10:22 Periphera l arterial disease 853772579 Aaron STODDARD, [address], [address] [place] [address] 5, [facility] 5 13:04:03 Ulcer of left foot due to diabetes mellitus 424784772 Aaron STODDARD, [address], [address] [place] [address] 5, [facility] 5 13:04:03 Abscess of left foot 108329407293 73343 Aaron STODDARD, [address], [address] [place] [address] 5, [facility] 5 13:04:34 Laceratio n of right foot 292957306169 99309 Aaron STODDARD, [address], [address] [place] [address] 5, [facility] 5 13:04:34 Foot ulcer due to type 2 diabetes mellitus 205729042165 0 Aaron STODDARD, [address], [address] [place] [address] 5, [facility] 5 13:04:34 Fall Active SHILO STODDARD, [address], [address], [facility] 5 13:04:34 Laceratio n of toe 238873933 Aaron STODDARD, [address], [address], [facility] 5 13:04:34 Pain in left foot 804252901768 107 Aaron STODDARD, [address], [address], [facility] 5 13:04:34 Infection of foot due to diabetes mellitus 907253847 Aaron STODDARD, [address], [address], [facility] 5 13:04:34 Low blood pressure 12677963 Aaron STODDARD, [address], [address], [facility] 5 13:04:34 Acute respirato ry failure 52412718 Aaron STODDARD, [address], [address], [facility] 5 13:04:34 Long-term current use of anticoagu lant 307632376 Aaron STODDARD, [address], [address], [facility] 5 13:04:34 Gastroint estinal hemorrhag e [id number] Aaron STODDARD, [address], [address], [facility] 5 13:04:34 Edema of left lower limb 898835913 Active SHILO STODDARD, [address], [address] [place] [address] 5, [facility] 5 13:04:34 Chronic obstructi ve pulmonary disease 68390067 Active [address], [address] [place] [address] 5, [facility] 5 14:44:25 Type 2 diabetes mellitus without complicat ion 875695983 Active 2022 Insulin Dependent Diabetes Mellitus [address], [address] [place] [address] 5, [facility] 5 14:44:25 Diabetes mellitus 52642688 Active [address], [address] [place] [address], [facility] 5 14:44:25 Dyspnea 589343576 Active [address], [address] [place] [address] 5, [facility] 5 14:44:25 Hyperchol esterolem ia 44827403 Active [address], [address] [place] [address] 5, [facility] 5 14:44:25 Hypothyro idism 67709917 Active [address] [place] [address] 5, [facility] 5 14:44:25 Anemia 536036334 Active 2023 SHILO STODDARD, [address], [address], [facility] 5 13:10:22 Intermitt ent vomiting 210563952 Active [address], [address], [facility] 14:44:25 Chronic atrial fibrillat ion 416544943 Active [address], [address] [place] [address] 5, [facility] 14:44:25 Chronic pulmonary thromboem bolism 425153784 Active [address], [address] [place] [address] 5, [facility] 14:44:25 Congestiv e heart failure 77494409 Active 2024 SHILO STODDARD, [address], [address], [facility] 13:10:22 Chronic kidney disease 367629530 Active [address], [address], [facility] 5 14:44:25 Pain of left shoulder joint 002337869332 54345 [facility]24 [facility] 10:41:05 Problem Notes None recorded. Procedures Surgical History Date Name Laterality Status Provider Name and Address Organization Details Recorded Time 2024 colonoscopy completed ALBERT NESS [facility] 5 16:37:30 2024 esophagogastroduodenoscopy completed ISELAAUTUMN NICHOLAS [facility] 5 16:41:26 2024 plain X-ray of chest completed [facility] 5 10:22:57 2024 plain X-ray of left foot completed [facility] L[facility]uel[facility] 5 10:26:[address] of left foot completed [facility], LMary[facility]uel 5 10:29:37 2024 Joint Inj Kenalog- Shoulder, Hip, Knee completed Anai Valdivia MD [address] [place], [address], [facility] L[facility] 5 13:50:21 2022 repair of aortic valve completed [facility] 3 11:57:41 complete repair of r otator cuff completed [facility] 5 12:00:19 cataract surgery completed [facility], LAnuelL[facility]uelC[facility]uel 5 12:00:39 Imaging Results None recorded. Procedure Notes None recorded. Medical Equipment None Reported. Allergies Allergen ID Allergen Name Allergen Category Reaction Reaction Severity Criticality Documentation Date Start Date Code Code System Note Provider Name and Address Organization Details Recorded Time 08274 No known allergy (situatio n) Not available Not available Not available Not available 08/11/2025 [id number] ASHISH GARCIA [address] [place], [address], [facility], L[facility]uelL[facility]uelC[facility]uel 5 13:03:47 No known drug allergies Medications [...] completed Not Available Not Available Not Available clarithro mycin 500 mg tablet TAKE 1 TABLET BY MOUTH TWICE DAILY FOR 14 DAYS active Not Available Not Available No t Available hydrocodo ne 5 mg-acetam inophen 325 [...] JR/tn Not Available Not Available Not Available metronida zole 500 mg tablet TAKE 1 TABLET BY MOUTH TWICE DAILY FOR 14 DAYS active Not Available Not Available No t Available sulfameth oxazole 800 mg-trimet hoprim 160 [...] Available Not Available Not Available levofloxa ana 500 mg tablet TAKE 1 TABLET BY MOUTH ONCE DAILY active Not Available Not Available No t Available levofloxa ana 750 mg tablet TAKE [...] Aspirin EC QD 07/26 completed Recorded 03/21/20 10 9:20AM by Albert Ness RN, Office Visit; Refill Quantity : 0; Not Available Not Available Not Available bumetanid e 07/26 completed Unknown strength .; 0; Recorded 01/19/20 8:10AM by Thomas coleman, [...] Not Avai lable Eliquis 5 mg tablet TAKE 1 TABLET BY MOUTH TWICE DAILY active Not Available Not Available No t Available Adempas 2 mg tablet Take 1 tablet [...] and Address Organization Details Last Updated DateTime 5 162.56 cm 27.5 kg/m2 54187.5 8 g 94 % 94 % 68 /min 20 /min 97.5 [degF] 118/60 mm[Hg] THOMAS YIN [facility] 5 10:48:03 Date Recorded Body height Body mass index (BMI) Body weight Oxygen saturation Oxygen saturation in Arterial blood by Pulse oximetry Heart rate Respiratory rate Systolic And Diastolic Provider Name and Address Organization Details Last Updated DateTime 5 162.56 cm 28.8 kg/m2 92234.5 2 g 90 % 90 % 90 /min 22 /min 132/80 mm[Hg] EMERALD PIKE [facility] 12:38:39 Social History Question Answer Notes LastModified by Organizat ion Details LastModified Time Tobacco Smoking Status Former Smoker ALBERT garcia [facility] 10/25/2023 12:00:37 When Did You Quit Smoking? 1-5yearssin carmen chappell Stopped 08/03/2025 Information not available 08/11/2025 What Was The Date Of Your Most Recent Tobacco Screening? 08/11/2025 Information not available 08/11/2025 What Is Your Current Pack Years? 30ormorepac sergeys Information not available 08/11/2025 At What Age [...] 50 mcg/0.25mL dose 1 completed ALBERT garcia [facility] 05/28/2023 10:19:38 COVID-19, mRNA, LNP-S, PF, 100 mcg/0.5mL dose or 50 mcg/0.25mL dose 1 completed ALBERT garcia [facility] 05/28/2023 10:19:38 Influenza, split virus, trivalent, preservative 3 completed Not Available [facility] 08/11/2025 12:02:41 Influenza, split virus, trivalent, PF 4 completed Not Available [facility] 08/11/2025 12:02:41 Tdap 5 completed SHILO STODDARD [facility] [address] [place], [address], [facility] 08/11/2025 13:04:45 Td(adult) unspecified formulation 3 completed Not Available [facility] 07/26/2023 09:10:01 Influenza, split virus, trivalent, preservative 3 completed Not Available [facility] 07/26/2023 09:10:01 Influenza, split virus, trivalent, preservative 2 completed Not Available [facility] 07/26/2023 09:10:01 Influenza, split virus, trivalent, preservative 4 completed Not Available [facility] 07/26/2023 09:10:01 Past Encounters Encounter ID Performer Location Encounter Start Date Encounter Closed Date Diagnosis/Indication Diagnosis SNOMED-CT Code Diagnosis ICD10 Code Diagnosis IMO Codes Diagnosis Note [id number] Anai Valdivia MD [facility] ([facility]) [address] [place] [address] 04/24/2023 11:23:34 04/24/2023 11:24:50 Diabetes mellitus 49413196 E13.42 very poorly controlled . Maybe another perspectiv e will help to motivate the patient to do a better job with his diabetes. Pain in left foot 349154 0799 92216 M79.672 [id number] Anai Valdivia MD [facility] ([facility]) [address] [place] [address] 05/28/2023 10:12:59 05/28/2023 20:28:54 Diabetes mellitus 99182012 E13.42 [id number] Anai Valdivia MD [facility] ([facility]) [address] [place] [address] 07/26/2023 09:09:50 08/03/2023 17:40:19 Type 2 diabetes mellitus without complication 212298598 E11.9 Long-term current use of antibiotic 843549171 Z79.2 [id number] Anai Valdivia MD [facility] ([facility]) [address] [place] [address] 10/18/2023 08:52:26 10/18/2023 14:10:20 Atrial fibrillation 86175112 I48.91 [id number] Anai Valdivia MD [facility]) [address] [place] [address] 10/25/2023 10:49:29 10/25/2023 12:59:56 Type 2 diabetes mellitus without complication 893033408 E11.9 [id number] Anai Valdivia MD [facility]) [address] [place] [address] 11/02/2023 09:14:03 11/02/2023 09:34:02 Pulmonary arterial hypertension 78998870 I27.21 Type 2 claudia betes mellitus without complication 894845740 E11.9 [id number] Anai Valdivia MD [facility] ([facility]) [address] [place] [address] 12/25/2023 12:04:07 12/26/2023 13:59:44 Dyspnea 491579836 R06.00 [id number] Anai Valdivia MD [facility] ([facility]) [address] [place] [address] 01/23/2024 08:43:49 01/24/2024 10:51:34 [id number] Anai Valdivia MD [facility] ([facility]) [address] [place] [address] 02/26/2024 10:20:39 02/26/2024 11:26:00 Type 2 diabetes mellitus without complication 811004114 E11.9 Hypothyroidism 36133699 E03.9 Diabetes mellitus 269939 09 E13.42 Chronic ob structive pulmonary disease 07868807 J44.9 Atrial fibrillation 4943 6004 I48.91 Congestive heart failure 69803954 I50.9 Hyperlipidemia 87699007 E78.5 Chronic pu lmonary thromboembolism 260749469 I27.82 [id number] Anai Valdivia MD [facility] ([facility]) [address] [place] [address] 03/26/2024 09:43:38 03/26/2024 10:01:06 Pulmonary arterial hypertension 13241141 I27.21 [id number] Anai Valdivia MD [facility] ([facility]) [address] [place] [address] 05/13/2024 08:22:02 05/13/2024 21:37:47 Pulmonary arterial hypertension 18758997 I27.21 [id number] Anai Valdivia MD [facility] ([facility]) [address] [place] [address] 06/09/2024 10:05:48 06/09/2024 10:52:06 Diabetes mellitus 53864184 E13.42 Intermittent vomiting 23 8944516 R11.10 Anemia 624912730 D64.9 Pain of le ft shoulder joint 4155466464 5150157 M25.673 [id number] Feliciano Gordon MD [facility] ([facility]) [address] [place] [address] 06/12/2024 15:28:04 06/12/2024 16:59:40 Bronchitis 24787457 J40 Concerned about his exam of the mild wheezing. Start antibiotic s. Continue to use inhalers. Cough 19475596 R05.9 COVID test was negative. Nausea and vomiting 1692 1999 R11.2 Provide some Zofran to help with nausea and vomiting so the patient can remain hydrated. Encouraged the patient to drink clear liquids today and start a bland diet tomorrow. Acute gastroenteritis 69 872988 K52.9 [id number] Anai Valdivia MD [facility] ([facility]) [address] [place] [address] 07/22/2024 08:26:33 07/23/2024 12:14:56 Type 2 diabetes mellitus without complication 758331089 E11.9 [id number] Anai Valdivia MD [facility] ([facility]) [address] [place] [address] 08/11/2024 09:46:45 08/11/2024 11:07:33 Type 2 diabetes mellitus without complication 104888970 E11.9 Anemia 335548119 D64.9 Diabetes mellitus 502529 09 E13.42 [id number] Anai Valdivia MD [facility] ([facility]) [address] [place], [place] [address] 08/11/2024 11:08:19 08/12/2024 04:03:50 Chronic kidney disease stage 3B 645171135 N18.32 Anemia 636022208 D64.9 [id number] Anai Valdivia MD [facility] ([facility]) [address] [place] [address] 11/25/2024 12:43:40 11/25/2024 16:07:09 Hypercholesterolemia 36537594 E78.00 Chronic ob structive pulmonary disease 16668144 J44.9 Type 2 claudia betes mellitus without complication 995452904 E11.9 Hypothyroidism 54287256 E03.9 Chronic at rial fibrillation 763334887 I48.20 Chronic pu lmonary thromboembolism 166805063 I27.82 Congestive heart failure 94777063 I50.9 Chronic ki dney disease 228249220 I13.0 Pain of le ft shoulder joint 5860620400 2968400 M25.918 [id number] Anai Valdivia MD [facility] ([facility]) [address] [place] [address] 02/03/2025 13:55:19 02/04/2025 12:20:12 Anemia co-occurrent and due to chronic kidney disease stage 3 5680754037 89700 D63.1 Congestive heart failure 20318641 I50.812 Anemia 717532637 D64.9 [id number] ASHISH YOUNGBLOOD [facility] ([facility]) [address] [place] [address] 02/08/2025 14:12:09 02/09/2025 22:25:04 Acute pansinusitis 3069348 J01.40 Discussed use of antibiotic . Take with food.May use Stepan's nasal inserts and also apply on chest. Push oral fluids. Consider nasal saline rinses and otc decongesta nt.Use tylenol/mo minh for alston. [id number] Anai Valdivia MD [facility] ([facility]) [address] [place] [address] 02/24/2025 10:58:39 02/24/2025 12:55:05 Congestive heart failure 04377203 I50.812 Chronic ob structive pulmonary disease 85951642 J44.9 Diabetes mellitus 752112 09 E13.42 Uncontroll ed type 2 diabetes mellitus 173391635 E11.65 Pain of le ft shoulder joint 5025841843 5957378 M25.512 Screening for malignant neoplasm of colon 505895196 Z12.11 [id number] Anai Valdivia MD [facility] ([facility]) [address] [place] [address] 06/01/2025 10:17:34 06/01/2025 11:12:05 Type 2 diabetes mellitus without complication 204088160 E11.9 Hypothyroidism 83976269 E03.9 Chronic at rial fibrillation 701392211 I48.20 [id number] Anai Valdivia MD [facility] ([facility]) [address] [place] [address] 07/08/2025 10:08:24 07/09/2025 12:33:19 Chronic kidney disease stage 4 411571499 N18.4 4322060 Adult heal th examination 593711286 Z00.01 9003316 [id number] Anai Valdivia MD [facility] ([facility]) [address] [place] [address] 07/15/2025 09:46:43 07/16/2025 15:47:39 Acute kidney injury 06113278 N17.9 7083427 [id number] Anai Valdivia MD [facility] ([facility]) [address] [place] [address] 07/31/2025 09:23:28 08/03/2025 10:19:47 Anemia 022575532 D64.9 Acute kidney injury 1466 9001 N17.9 667201 [id number] ASHISH WALKER [facility] ([facility]) [address] [place] [address] 08/11/2025 12:00:43 08/11/2025 13:58:09 Chronic kidney disease stage [id number] Mcclain [place] is who he follows with for kidneys. Cr 3.6 on discharge. Iron defic iency anemia 20773246 D50.8 [id number] Injury of right foot 771 336484 S91.301A [id number] Will follow with Dr. Higginbotham or Dr. Mendoza. Diabetic foot ulcer 3710 67832 E11.621 L97.428 Follows with wound care. Congestive heart failure 56801839 I50.812 Lots of fluid pulled off during hospital visit. Health Concerns Section Related Observation LastModified by Organization Detai ls LastModified Time None Recorded Concern Status LastModified by Organization Details LastModified Time None Recorded Advance Directives Directive None Recorded Payers Insurance Date Sequence Insurance Name Policy Number Policy Godinez Covered Member ID Godinez Member ID Guarantor Name 08/25/2025 [place] - [place] A - [facility] (MEDICARE) Guy Wiseman [id number] Guy Wiseman 08/31/2025 1 [employer] (MEDICARE REPLACEMENT/ ADVANTAGE - PPO) [id number] Guy Wiseman [id number] Guy Wiseman 02/21/2023 1 *SELF PAY* Fr awilda Wiseman 07/24/2025 1 [place] Guy Wiseman [id number] Guy Wiseman Notes Date Note Type [...] a ulcer on his left footHXpt sees [facility]. He recently started pt on Jardiancept declined ColonoscopyPt sees [facility] Anai Valdivia MD [address] [place] [address], [address], [facility] 06/01/2025 11:05:31
--- OUTSIDE RECORDS SUMMARY | 2025-09-04 12:47 | XMS_ITS | Encounter Summary ---
Author Organization [facility], [facility] Address [address] [place] [address] Phone Care Team Providers Care Toe Lining Closer Name Role Phone Unavailable Primary Care Provider Unavailabl e Encounter Details Date Type Department Care Team ([facility] st Contact Info) Description 09/02/2025 Orders Only [facility] [address] [place] [address] Tomeka Kelly MD [address] [facility] [address] [place] [address] Social History Tobacco Use Types Packs/Day Years Used Date Smoking Tobacco: Never Assessed Sex and Gender Information Value Date Recorded Sex Assigned at Not on file Legal Sex Male 11:36 AM EST Gender Identity Not on file Sexual Orientation Not on file documented as of this encounter Plan of Treatment Not on file documented as of this encounter Procedures Procedure Name Priority Date/Time Associated Diagnosis Comments HEMATOLOGY Routine 09/02/2025 CHEMISTRY Routine 09/02/2025 documented in this encounter Results * (ABNORMAL) HEMATOLOGY (09/02/2025) Neutrophils 81.1(H) 40.0 - 75.0 % Spectra [...] 09/02/2025 09/03/2025 11: 22 AM CDT Narrative [facility] - 09/03/2025 Unless otherwise specified, test(s) performed at: [facility], [address] [place] [address] STAVE HEWER: Magdi Montes De Oca M.D. For any questions, please call customer service at FREQUENCY:MONTHLY Resulting Agency Comment Specimen source: Blood us Tomeka Kelly MD LAB BLOOD ORDERABLES Final Re sult [facility] See order comments or contact performing lab Unknown, [place] * (ABNORMAL) [facility] (09/02/2025) Sodium 135(L) 136 - 145 mEq/L Spectra [...] 09/03/2025 Unless otherwise specified, test(s) performed at: [facility], [address] [place] [address] STAVE HEWER: Magdi Montes De Oca M.D. For any questions, please call customer service at FREQUENCY:MONTHLY Resulting Agency Comment Specimen source: Serum us Tomeka Kelly MD LAB BLOOD ORDERABLES Edited R esult - Final [facility] See order comments or contact performing lab Unknown, [place] documented in this encounter Visit Diagnoses Not on filedocumented in this encounter
--- OUTSIDE RECORDS SUMMARY | 2025-09-04 12:47 | XMS_ITS | Clinical Summary ---
Author Organization [facility] Address [address] [facility] Attn: Epic Prelude ADT MELISA RIVERA [address] Care Team Providers Care Sportspersons Name Role Phone Unavailable Primary Care Provider Unavailabl e Encounters Date Type Department Care Team Description 08/25/2025 External Device Data [facility] ABSTRACTION Provider, Abstract 08/05/2025 External Device Data [facility] ABSTRACTION Provider, [...]
--- OUTSIDE RECORDS SUMMARY | 2025-09-04 12:47 | XMS_ITS | Continuity of Care Document ---
Author Organization MELISA Rios 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 He went to the ER and they discovered bilateral PE's and a lung mass. He is on IV antibiotics at this time through a PICC line. He had stopped his Eliquis for a time while he was hospitalized previously. He reports he had a procedure done for dialysis and when he woke up on the table he couldn't hear out of his right ear. Not available 09/03/2025 15:14:02 Plan of Treatment Reminders Order Date Submit Date Provider Last Modified By Organization Details Last Modified Time Details Appointments None recorded. Lab None recorded. Referral otolaryngol ogist referral 2024 025 [email or web address] 2 Demian Lin MD, [address] , [place], [address], 12:02:58 Procedures None recorded. Surgeries None recorded. Imaging None recorded. Medication Orders None recorded. Patient TargetsNo targets recorded. Patient Instructions Encounter Date Encounter Id Patient Instructions Last Modified By Organization Details Last Modified Time 09/03/2025 [id number] Call or return for questions or concerns. 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 Referral fo r Dysfunction of right eustachian tube Referring Physician: Barbara Stoddard, Family Medicine, Encounter Date: 09/03/2025 Results Created Date Observation Date Name Description Value Unit Range Abnormal Flag Note LastModifiedBy Organization Detail LastModifiedTime 08/11/2008/11/2025 CBC WBC 10.2 x10 4.5-10 .5 Not Available [facility] [address], [place], [address], 08/11/2025 14:28:00 08/11/2008/11/2025 CBC RBC 3.26 x10 4.30-5 .90 low Not Available [facility] [address], [place], [address], 08/11/2025 14:28:00 08/11/2008/11/2025 CBC HGB 9.7 g/dL 13.5-1 8.0 low Not Available [facility] [address], [place], [address], 08/11/2025 14:28:00 08/11/2008/11/2025 CBC HCT 30.8 % 35.0-6 0.0 low Not Available [facility] [address], [place], [address], 08/11/2025 14:28:00 08/11/2008/11/2025 CBC MCV 94.4 fL 80.0-9 9.9 Not Available [facility] [address], [place], [address], 08/11/2025 14:28:00 08/11/20 25 08/11/2025 CBC MCH 29.9 pg 27.0-3 2.0 Not Available [facility] [address], [place], [address], 08/11/2025 14:28:00 08/11/20 25 08/11/2025 CBC MCHC 31.6 g/dL 32.0-3 6.0 low Not Available [facility] [address] [facility] [facility] [address], [place], [address], 08/11/2025 14:28:00 08/11/20 25 08/11/2025 CBC RDW 16.0 % 11.5-1 4.5 high Not Available [facility] [address] [facility] 1, [place], [address], 08/11/2025 14:28:00 08/11/20 25 08/11/2025 CBC plt 198.7 x10 150.0- 451.0 Not Available [facility] [address] [facility], [place], [address], 08/11/2025 14:28:00 08/11/20 25 08/11/2025 CBC lymphocytes % 18.7 % 20.0-5 0.0 low Not Available [facility] [address] [facility] [address], [place], [address], 08/11/2025 14:28:00 08/11/20 25 08/11/2025 CBC granulcytes % 66.6 % 30.0-7 0.0 Not Available [facility] [address] [facility] 1, [place], [address], 08/11/2025 14:28:00 08/11/20 25 08/11/2025 CBC monocytes % 11.8 % 2.0-16 .0 Not Available [facility] [address] [facility] 1, [place], [address], 08/11/2025 14:28:00 08/11/20 25 08/11/2025 CBC granulcytes# 6.8 x10 Not Stephanie ilable [facility] [address] [facility], [place], [address], 08/11/2025 14:28:00 08/11/20 25 08/11/2025 CBC lymphocytes # 1.9 x10 Not Available [facility] [address] [facility], [place], [address], 08/11/2025 14:28:00 08/11/20 25 08/11/2025 CBC monocytes # 1.2 x10 Not Avai lable [facility] [address] [facility] [address], [place], [address], 08/11/2025 14:28:00 08/11/20 25 08/11/2025 CMP (MALE ) glucose 132.0 mg/dL 60.0-9 9.0 high Not Available [facility] [address] [address], [place], [address], 08/11/2025 15:58:28 08/11/20 25 08/11/2025 CMP (MALE ) BUN (blood urea nitrogen) 71.0 mg/dL 10.0-2 6.0 high Not Available [facility] [address] [address], [place], [address], 08/11/2025 15:58:28 08/11/20 25 08/11/2025 CMP (MALE ) creatinine (serum) 3.8 mg/dL 0.4-1. 5 high Not Available [facility] [address] [address], [place], [address], 08/11/2025 15:58:28 08/11/20 25 08/11/2025 CMP (MALE ) BUN/creatini ne ratio 18.68 ratio Not Available [facility] [address] [facility] [address] [address], [place], [address], 08/11/2025 15:58:28 08/11/20 25 08/11/2025 CMP (MALE ) eGFR calculated 16.8 Not Available [facility] [address] [facility], [place], [address], 08/11/2025 15:58:28 08/11/20 25 08/11/2025 CMP (MALE ) total protein 7.0 g/dL 6.0-8. 5 Not Available [facility] [address] [facility], [place], [address], 08/11/2025 15:58:28 08/11/20 25 08/11/2025 CMP (MALE ) total bilirubin 0.7 mg/dL 0.2-1. 3 Not Available [facility] [address] [facility], [place], [address], 08/11/2025 15:58:28 08/11/20 25 08/11/2025 CMP (MALE ) albumin 3.5 g/dL 3.5-5. 5 Not Available [facility] [address] [facility] 1, [place], [address], 08/11/2025 15:58:28 08/11/20 25 08/11/2025 CMP (MALE ) globulin 3.5 calc Not Available [facility] [address] [facility] 1, [place], [address], 08/11/2025 15:58:28 08/11/20 25 08/11/2025 CMP (MALE ) AST (SGOT) 37.0 U/L 0.0-46 .0 Not Available [facility] [address] [facility], [place], [address], 08/11/2025 15:58:28 08/11/20 25 08/11/2025 CMP (MALE ) altv (SGPT) 14.0 U/L 13.0-6 9.0 normal Not Available [facility] [address] [facility], [place], [address], 08/11/2025 15:58:28 08/11/20 25 08/11/2025 CMP (MALE ) A/G ratio 1.0 ratio Not Available [facility] [address] [facility], [place], [address], 08/11/2025 15:58:28 08/11/20 25 08/11/2025 CMP (MALE ) ALP phos 208.0 U/L 30.0-1 40.0 abnormal Not Available [facility] [address] [facility] [address], [place], [address], 08/11/2025 15:58:28 08/11/20 25 08/11/2025 CMP (MALE ) calcium 9.3 mg/dL 8.4-10 .5 Not Available [facility] [address] [facility] 1, [place], [address], 08/11/2025 15:58:28 08/11/20 25 08/11/2025 CMP (MALE ) sodium 137.0 mmol/ L 136.0- 145.0 Not Available [facility] [address] [facility] 1, [place], [address], 08/11/2025 15:58:28 08/11/20 25 08/11/2025 CMP (MALE ) potassium 4.4 mmol/ L 3.5-5. 1 Not Available [facility] [address] [facility] [address], [place], [address], 08/11/2025 15:58:28 08/11/20 25 08/11/2025 CMP (MALE ) chloride 106.0 mmol/ L 98.0-1 10.0 normal Not Available [facility] [address] [facility] 1, [place], [address], 08/11/2025 15:58:28 08/11/20 25 08/11/2025 CMP (MALE ) C02 20.0 mmol/ L 22.0-3 1.0 low Not Available [facility] [address] [facility] 1, [place], [address], 08/11/2025 15:58:28 08/11/20 25 08/11/2025 CMP (MALE ) anion gap 11.0 calc Not Available [facility] [address] [facility] 1, [place], [address], 08/11/2025 15:58:28 08/11/20 25 08/11/2025 CMP (MALE ) osmolality 304.3 calc Not Available [facility] [address] [facility] 1, [place], [address], 08/11/2025 15:58:28 08/11/20 25 08/11/2025 hospi alley disch arge follo w up* Records Reviewed Yes Not Available [facility] ( [facility]) [address] [place], [address], 08/11/2025 13:09:32 08/11/20 25 08/11/2025 hospi alley disch arge follo w up* Medications Reconciles Yes Not Available [facility] ([facility]) [address] [place] [address], [address], 08/11/2025 13:09:32 Result Notes None recorded. Problems Name Problem SNOMED Code Status Onset Date Resolution Date Notes Provider Name and Address Organization Details Recorded Time Anticoagu lant effect 37342939 Active BARBARA ARLYN, [facility] [address] [place], [address], [facility], Karina 13:04:03 Chronic ulcer of left foot Active BARBARA STODDARD, [facility] [address] [place], [address], [facility], Karina 13:04:34 Tailor's bunion of left foot 393554370806 9100 Active BARBARA STODDARD, [address], [address], [facility] 5 13:04:03 Tobacco user 773363318 Active BARBARA STODDARD, [address], [address] [place] [address] 5, [facility] 5 13:04:03 Contusion of left shoulder 929996410466 42925 Active BARBARA STODDARD, [address] [address], [facility] 5 13:04:03 History of aortic valve replaceme nt 860087882303 0 Active BARBARA STODDARD, [address] 5, [facility] 5 13:04:03 Celluliti s 164439571 Active BARBARA STODDARD, [address], [address], [facility] 5 13:04:03 Lumbar radiculop athy 369335846 Active BARBARA STODDARD, [address], [address] [place] [address] 5, [facility] 5 13:04:03 Periphera l neuropath y due to type 2 diabetes mellitus 880190185016 7 Active BARBARA STODDARD, [place] [address] [address], [facility] 5 13:04:03 History of pulmonary embolus [id number] Aaron STODDARD, [address] [address] 5, [facility] 5 14:36:21 Abdominal pain [id number] Aaron STODDARD, [address], [address], [facility] 5 13:04:03 Acute-on- chronic renal failure [id number] Aaron STODDARD, [address], [address], [facility] 5 13:04:03 Thoracic back pain [id number] Aaron STODDARD, [place] [address], [facility] 5 13:04:03 Orthostat ic hypotensi on [id number] Aaron STODDARD, [address], [address], [facility] 5 13:04:03 Chest pain [id number] Aaron STODDARD, [address], [address] , [facility] 5 13:04:03 Low back strain [id number] Aaron STODDARD, [address], [address] , [facility] 5 13:04:03 Patient encounter status [id number] Aaron STODDARD, [address] , [facility] 5 13:04:03 Internati onal normalize d ratio above reference range [id number] Aaron STODDARD, [address] , [facility] 5 13:04:03 Dehydrati on [id number] Aaron STODDARD, [address], [address] [place] [address] 5, [facility] 5 13:04:03 Blood in urine [id number] Aaron STODDARD, [address], [address] [place] [address] 5, [facility] 5 13:04:03 Diabetic foot ulcer [id number] Aaron STODDARD, [address], [address] [place] [address] 5, [facility] 5 13:04:03 Pericardi al effusion [id number] Aaron STODDARD, [address], [address] [place] [address] 5, [facility] 5 13:04:03 Acquired keratoder ma [id number] Aaron STODDARD, [address], [address] [place] [address] 5, [facility] 5 13:04:03 Strain of muscle of chest wall [id number] Aaron STODDARD, [address], [address] [place] [address] 5, [facility] 5 13:04:03 History of malignant neoplasm of skin excluding melanoma [id number] Aaron STODDARD, [place] [address] [address], [facility] 5 13:04:03 Acute hyponatre nithin [id number] Aaron STODDARD, [place] [address] [address] 5, [facility] 5 13:04:03 Foot pain [id number] Aaron STODDARD, [address], [address], [facility] 5 13:04:03 Acute exacerbat ion of chronic congestiv e heart failure [id number] Aaron STODDARD, [address], [address] [place] [address] 5, [facility] 5 13:04:03 Prehypert ension [id number] Aaron STODDARD, [address], [address] [place] [address] 5, [facility] 5 13:04:03 Osteomyel itis of forefoot [id number] Aaron STODDARD, [address], [address], [facility] 5 13:04:03 Acute hypoxemic respirato ry failure [id number] Aaron STODDARD, [address], [address], [facility] 5 13:04:03 Pulmonary hypertens ion [id number] Aaron STODDARD, [address], [address], [facility] 5 13:04:03 COVID-19 [id number] Aaron STODDARD, [address], [address] [place] [address] 5, [facility] 5 14:36:21 Periphera l arterial disease [id number] Aaron STODDARD, [address], [address], [facility] 5 13:04:03 Ulcer of left foot due to diabetes mellitus 661733933 Active BARBARA STODDARD, [address], [address], [facility] 5 13:04:03 Abscess of left foot 397086868927 24817 Active BARBARA STODDARD, [address], [address], [facility] 5 13:04:34 Laceratio n of right foot 267287511255 63467 Active BARBARA STODDARD, [address], [address], [facility] 5 13:04:34 Foot ulcer due to type 2 diabetes mellitus 855984119168 0 Active BARBARA STODDARD, [address], [address], [facility] 5 13:04:34 Fall Active BARBARA STODDARD, [address], [address], [facility] 5 13:04:34 Laceratio n of toe 291302720 Active BARBARA STODDARD, [address], [address], [facility] 5 13:04:34 Pain in left foot 829432858784 107 Active BARBARA STODDARD, [address], [address], [facility] 5 13:04:34 Infection of foot due to diabetes mellitus [id number] [facility] BARBARA STODDARD, [address], [address] [place] [address] 5, [facility] 5 13:04:34 Low blood pressure 47569862 Active BARBARA STODDARD, [address], [address] [place] [address], [facility] 5 13:04:34 Acute respirato ry failure [id number] [facility] BARBARA STODDARD, [address], [address] [place] [address], [facility] 5 13:04:34 Long-term current use of anticoagu lant [id number] [facility] BARBARA ARLYN [address], [address] [place] [address], [facility] 5 13:04:34 Gastroint estinal hemorrhag e [id number] [facility] BARBARA STODDARD[address], [address] [place] [address], [facility] 5 13:04:34 Edema of left lower limb [id number] [facility] BARBARA ARLYN [address], [address] [place] [address], [facility] 5 13:04:34 Chronic obstructi ve pulmonary disease 07859167 Active [address], [address] [place] [address], [facility] 5 14:44:25 Type 2 diabetes mellitus without complicat ion 418942976 Active 2022 Insulin Dependent Diabetes Mellitus KERRY CRUZ, [address], [address], [facility] 14:44:25 Diabetes mellitus 72598873 Active 2022 [facility], [address], [address], [facility] 14:44:25 Dyspnea 249301666 Active [address], [address] [place] [address] 5, [facility] 14:44:25 Hyperchol esterolem ia 38577078 Active [address], [address] [place] [address] 5, [facility] 14:44:25 Hypothyro idism 67004558 Active [address], [address] [place] [address] 5, [facility] 14:44:25 Anemia 225715375 Active 2023 BARBARAAris OLIVARESARLYN, [address], [address] [place] [address] 5, [facility] 14:36:21 Intermitt ent vomiting 303616640 Active [address]23 [place] [address] 5, [facility] 14:44:25 Chronic atrial fibrillat ion 712703220 Active 2024 [place] [address], [facility] 14:44:25 Chronic pulmonary thromboem bolism 095930205 Active [address], [address], [facility] 5 14:44:25 Congestiv e heart failure 43558314 Active 2024 BARBARA STODDARD, [address], [address], [facility] 14:36:21 Chronic kidney disease 062282145 Active [address], [address] [place] [address] 5, [facility] 14:44:25 Pain of left shoulder joint 855007250138 74317 Active 2024 THOMAS Lopez, [facility] 10:41:05 Problem Notes None recorded. Procedures Surgical History Date Name Laterality Status Provider Name and Address Organization Details Recorded Time 2024 plain X-ray of chest completed [facility] 13:15:[address] of chest completed [facility] 13:18:55 2024 US scan of chest wall completed EMERALD PIKE [facility], L[facility]uelL[facility]uelC[facility]uel 13:19:43 2024 colonoscopy completed ALBERT NESS [facility] 16:37:30 2024 esophagogastroduodenoscopy completed OFELIA NESS [facility] 16:41:26 2024 plain X-ray of chest completed [facility], L.L[facility]uel[facility]uel 5 10:22:57 2024 plain X-ray of left foot completed [facility], LAnuelLAnuelCAnuel 5 10:26:[address] of left foot completed [facility], LAnuelLAnuelCAnuel 5 10:29:37 2024 Joint Inj [place]- Shoulder, Hip, Knee completed Anai Nick MD [address] [place], [address], [facility], DedraLAnuelCAnuel 5 13:50:21 2022 repair of aortic valve completed [facility], LAnuelLAnuelCAnuel 3 11:57:41 complete repair of r otator cuff completed [facility], L.L.CAnuel 5 12:00:19 cataract surgery completed [facility] 5 12:00:39 Imaging Results None recorded. Procedure Notes None recorded. Medical Equipment None Reported. Allergies Allergen ID Allergen Name Allergen Category Reaction Reaction Severity Criticality Documentation Date Start Date Code Code System Note Provider Name and Address Organization Details Recorded Time 55025 No known allergy (situatio n) Not available Not available Not available Not available 08/11/2025 [id number] ASHISH GARCIA [address] [place], [address], [facility] 5 13:03:47 No known drug allergies Medications [...] Not Available Not Available Not Avai lable Novolog FlexPen U-100 Insulin aspart 100 unit/mL (3 mL) subcutane ous INJECT SUBCUTAN EOUSLY THREE TIMES DAILY AFTER MEALS BASED ON MODERATE DOSE INSULIN SLIDING SCALE active Not Available Not Available No t Available vancomyci n 1 gram/250 mL in 0.9 [...] 12/25 completed Recorded 10/19/20 9:49AM by Anai Nick MD, Office Visit; Refill Quantity : 200; [...] completed Not Available Not Available Not Available Angie 2nd Gen Pen Needle 32 gauge x 5/32 USE DIRECTED WITH INSULIN active Not Available Not Available No t Available Vitals Date Recorded Body height Body mass index (BMI) Body weight Oxygen saturation Oxygen saturation in Arterial blood by Pulse oximetry Heart rate Respiratory rate Systolic And Diastolic Provider Name and Address Organization Details Last Updated DateTime 162.56 cm 29 kg/m2 29426.1 1 g 93 % 93 % 62 /min 24 /min 98/50 mm[Hg] EMERALD PIKE [facility] 14:15:36 Social History Question Answer Notes LastModified by Organizat ion Details LastModified Time Tobacco Smoking Status Former Smoker ALBERT garcia [facility] 10/25/2023 12:00:37 When Did You Quit Smoking? 1-5yearssin celastcigar ette Stopped 08/03/2025 Information not available 08/11/2025 What Was The Date Of Your Most Recent Tobacco Screening? 08/11/2025 Information not available 08/11/2025 What Is Your Current Pack Years? 30ormorepamelva laird Information not available 08/11/2025 At What Age [...] is your level of alcohol consumption? None [email or web address] Information not available 04/24/2023 Do you or [...] 50 mcg/0.25mL dose 1 completed ALBERT garcia [facility] 05/28/2023 10:19:38 COVID-19, mRNA, LNP-S, PF, 100 mcg/0.5mL dose or 50 mcg/0.25mL dose 1 completed ALBERT garcia [facility] 05/28/2023 10:19:38 Influenza, split virus, trivalent, preservative 3 completed Not Available [facility] 09/03/2025 14:06:15 Influenza, split virus, trivalent, PF 4 completed Not Available [facility] 09/03/2025 14:06:15 Tdap 5 completed ASHISH WALKER [address] [place], [address], [facility], Karina 08/11/2025 13:04:45 Td(adult) unspecified formulation 3 completed Not Available [facility] 07/26/2023 09:10:01 Influenza, split virus, trivalent, preservative 3 completed Not Available [facility] 07/26/2023 09:10:01 Influenza, split virus, trivalent, preservative 2 completed Not Available [facility] 07/26/2023 09:10:01 Influenza, split virus, trivalent, preservative 4 completed Not Available [facility] 07/26/2023 09:10:01 Past Encounters Encounter ID Performer Location Encounter Start Date Encounter Closed Date Diagnosis/Indication Diagnosis SNOMED-CT Code Diagnosis ICD10 Code Diagnosis IMO Codes Diagnosis Note [id number] ASHISH WALKER [facility] ([facility] [address] [place] [address] 08/11/2025 12:00:43 08/11/2025 13:58:09 Chronic kidney disease stage [id number] Mcclain [place] is who he follows with for kidneys. Cr 3.6 on discharge. Iron defic iency anemia 12500426 D50.8 54191427 Injury of right foot 771 102984 S91.301A [id number] Will follow with Dr. Higginbotham or Dr. Mendoza. Diabetic foot ulcer 3710 95571 E11.621 L97.428 Follows with wound care. Congestive heart failure 36235182 I50.812 Lots of fluid pulled off during hospital visit. [id number] ASHISH WALKER [facility] ([facility] [address] [place] [address] 09/03/2025 13:46:21 09/03/2025 15:17:40 Pulmonary embolism 38812700 I26.99 [id number] Recent hospitaliz ation. Chronic anemia [id number] D64.9 [id number] Recent hospitaliz ation. Dysfunctio n of right eustachian tube [id number] H69.91 [id number] Health Concerns Section Related Observation LastModified by Organization Detai ls LastModified Time None Recorded Concern Status LastModified by Organization Details LastModified Time None Recorded Payers Encounter Date Sequence Insurance Name Policy Number Policy Godinez Covered Member ID Godinez Member ID Guarantor Name 09/03/2025 1 [employer] (MEDICARE REPLACEMENT/ ADVANTAGE - PPO) [id number] Guy Wiseman [id number] Guy Wiseman Notes Date Note Type Note Provider Name and Address Organization Details Recorded Time 09/03/2025 text/html EaracheReported by PatientHPIFor associated symptoms, patient reportshearing loss. For location, patient reportsbilateral. For severity, patient reportscontinuousandm ild. BARBARA STODDARD, CONTROL CLERK [address] [place], [address], [facility] 09/03/2025 15:15:45
[2025-09-04 13:25] LABS: Mean Corpuscular HGB Conc 32.0 g/dL (30-55); Mean Corpuscular Hemoglobin 28.9 pg (27-33); Mean Corpuscular Volume 90.4 fl (82-101); Nucleated Red Blood Cells % 0 %; Platelet Count 72 10^3/cmm (157-399); Red Blood Count 2.18 10^6/uL (3.85-5.65); White Blood Count 10.53 10^3/uL (3.29-11.43)
[2025-09-04 13:39] LABS: Hematocrit 19.7 % (37-53); Hemoglobin 6.30 g/dL (11.27-16.99)
[2025-09-04 13:54] LABS: Alanine Aminotransferase 15 U/L (0-41); Albumin Level 2.7 g/dL (3.5-5.2); Alkaline Phosphatase 148 U/L (40-130); Anion Gap 17.3 (5-19); Aspartate Amino Transferase 21 U/L (0-40); Blood Urea Nitrogen 54 mg/dL (8-23); Calcium 7.4 mg/dL (8.5-10.5); Carbon Dioxide 25 mmol/L (22-29); Chloride 94 mmol/L (98-107); Creatinine Clr Calc Pharmacy 22.9002; Globulin 1.8 g/dL (1.3-4.6); Glucose 235 mg/dL (65-115); Magnesium 1.5 mg/dL (1.7-2.3); Osmolality Calculated 298 mOsm/kg (285-295); Potassium 3.3 mmol/L (3.5-5.1); Sodium 133 mmol/L (136-145); Total Protein 4.5 g/dL (6.6-8.7); Troponin(5th) Baseline 135 ng/L (0-15)
[2025-09-04 14:03] LABS: NT Pro B Type Natriuretic Pept 15836 pg/mL (0-125)
--- NOTE | 2025-09-04 14:31 | PM.CONSULT ---
Providers/Reason For Consult Consulting Physician/Specialty*: kommana/Nephrology Reason for Consult*: ESRD Primary Care Provider: Patrick Nick MD History of Present Illness History of Present Illness Guy Wiseman is a 70 year old male 80-year-old male with past medical history of pulmonary embolism on Eliquis, history of aortic valve replacement, pulmonary hypertension, hypertension, diabetes, who was recently admitted to the hospital due to COPD and acute respiratory failure was initiated on hemodialysis during last admission due to worsening fluid overload with edema and shortness of breath. Patient presents back to the emergency department today due to fatigue chest pain. Vital signs significant for tachycardia and hypotension. Lab data revealed hemoglobin of 6.3, potassium was 3.3. Creatinine was 2.8. Chest x-ray showed interstitial edema. Abdominal/pelvic CT with IV contrast was done suggest liver cirrhosis abdominal atherosclerotic disease Review of Systems Narrative: negativ e Medications/Allergies Home Medications ?Medication ?Instructions ?Recorded ?Confirmed ?Last Taken ?Type Cam boot to left #1 ea 05/15/23 09/04/25 08/19/25 Rx bumetanide 1 mg tablet 2 mg PO DAILY 11/27/23 09/04/25 09/04/25 08:00 History levothyroxine 112 mcg tablet 112 mcg PO DAILY 11/27/23 09/04/25 09/04/25 07:00 History riociguat 2.5 mg tablet (Adempas) 2.5 mg PO TID 11/27/23 09/04/25 09/04/25 08:00 History Diabetic shoes #1 ea 08/25/24 09/04/25 08/19/25 Rx CAM walker #1 ea 04/20/25 09/04/25 08/19/25 Rx acetaminophen 500 mg tablet 1,000 mg PO Q6H PRN Fever Or Pain 07/18/25 09/04/25 08/19/25 History (Tylenol Extra Strength) apixaban 5 mg tablet (Eliquis) 5 mg PO BID 07/18/25 09/04/25 09/04/25 08:00 History atorvastatin 40 mg tablet 40 mg PO DAILY 07/18/25 09/04/25 09/04/25 08:00 History macitentan 10 mg tablet (Opsumit) 10 mg PO DAILY 08/02/25 09/04/25 09/04/25 08:00 History pantoprazole 40 mg tablet,delayed 40 mg PO BID 30 days #60 tabs 08/07/25 09/04/25 09/04/25 08:00 Rx release (Protonix) clarithromycin 500 mg tablet 500 mg PO BID 14 days #28 tabs 08/19/25 09/04/25 09/02/25 Rx metronidazole 500 mg tablet 500 mg PO BID 14 days #28 tabs 08/19/25 09/04/25 09/04/25 08:00 Rx ceftriaxone 1 gram solution for 1 g IV DAILY 08/24/25 09/04/25 09/04/25 History injection insulin aspart U-100 100 unit/mL See Rx Instructions .Route 08/31/25 09/04/25 09/04/25 07:00 Rx (3 mL) subcutaneous pen (Novolog .COMPLEX #15 mL FlexPen U-100 Insulin aspart) insulin glargine 100 unit/mL (3 10 unit (0.1 mL) SUBCUT BEDTIME 08/31/25 09/04/25 Unknown Rx mL) subcutaneous pen (Basaglar #15 mL KwikPen U-100 Insulin) Allergies Allergy/AdvReac Type Severity Reaction Status Date / Time No Known Allergies Allergy Verified 08/24/25 01:13 PFSH Acute PFSH: Medical History (Updated 09/04/25 @ 15:31 by Cruz Fang MD) Mediastinal lymphadenopathy Lung mass Pericardial effusion Tobacco abuse Anemia Diabetes Warfarin anticoagulation Chest pain History of pulmonary embolism Congestive heart failure History of nonmelanoma skin cancer Hypothalamic hypothyroidism Hypertension History of blood clots COPD (chronic obstructive pulmonary disease) History of pulmonary embolism Surgical History S/P TAVR (transcatheter aortic valve replacement) History of rotator cuff surgery Social History Smoking and tobacco/nicotine status: former use of tobacco/nicotine Quit status (tobacco/nicotine): has quit using Year quit tobacco: 2024 Former quit date comment: a week ago Alcohol intake: never Substance/Drug Use: never Marital status: Life Partner Vitals/I&O/Wt Last Vital Signs Temp 98.1 F 09/04/25 12:52 Pulse 108 H 10/17/25 12:52 Resp 20 H 09/04/25 12:52 BP 94/47 09/04/25 12:52 Pulse Ox 98 09/04/25 12:52 O2 Del Method Nasal Cannula 09/04/25 12:52 O2 Flow Rate 2 09/04/25 12:52 Weight last 48 hrs Weight 78.471 kg Physical Exam Narrative: awake, alert , no distress No JVD PEERLA S1S2 RRR Lungs with [place] crackles Abd soft , non tender Ext no edema no skin rash Data 09/05/25 04:13 09/05/25 04:13 A&P Assessment and plan 1. End stage renal disease on dialysis: Plan: 1. End-stage renal disease: Recently initiated on hemodialysis, patient now is volume overloaded but also is hypotensive. Will plan for hemodialysis today and UF as tolerated 2. Hypotension, rule out sepsis, monitor closely, IV albumin with HD 3. Severe anemia, acute on chronic, plan for 2 units PRBCs today, will also give Epogen 4. Hypokalemia, will run on a 3K dialysate 5. Elevated troponin, likely demand ischemia, management per primary team 6. h/oAVR Today's evaluation. Time spent 40 minutes. PDMP PDMP Reviewed: Not Reviewed Consult Attestations Medical Necessity Statement: per medicine Coding Level of Care Code Acute Code for Chg Fwd Diagnoses End stage renal disease on dialysis N18.6; Z99.2
--- NOTE | 2025-09-04 15:03 | ECG_ITS ---
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 Measurements Intervals Cascade Rate: 96 P: 0 NH: 0 QRS: 81 QRSD: 97 T: 72 QT: 384 QTc: 486 Interpretive Statements ATRIAL FIBRILLATION Compared to ECG 09/04/2025 12:45:35 Myocardial infarct finding no longer present Electronically Signed On 09-05-2025 12:07:04 CDT by Franklin Nuno M.D. [email or web address]
--- NOTE | 2025-09-04 15:10 | USCV_ITS ---
Guy Wiseman Age: 70 Gender: M : 1955 Exam Date: 09/04/2025 18:17 Ordering Phys: Cruz Fang MD Technologist: LEAH Exam Location: [facility] [place] Indication: chest pain, ef and wall motion BP: 97 / 50 HR: Rhythm: Sinus Technical Quality: Adequate MEASUREMENTS (Male / Female) Normal Values 2D ECHO LV Diastolic Diameter PLAX 4.4 cm 4.2 - 5.9 / 3.9 - 5.3 cm IVS Diastolic Thickness 0.9 cm 0.6 - 1.0 / 0.6 - 0.9 cm IVS Systolic Thickness 1.3 cm LVPW Diastolic Thickness 1.0 cm 0.6 - 1.0 / 0.6 - 0.9 cm LVPW Systolic Thickness 1.8 cm LVOT Diameter 2.0 cm LV Ejection Fraction 2D Teich 78.3 % LV Ejection Fraction MOD 4C 75.9 % LV Ejection Fraction MOD 2C 72.4 % LV Ejection Fraction 2C AL 71.9 % LA Diameter 3.1 cm RA Systolic Volume 4C AL 32.4 ml RA Systolic Volume 4C MOD 31.5 ml LA Sys Volume AL 51.8 cm cubed LA Sys Volume Index AL 27.1 cm cubed/m squared Aorta at Sinotubular Diameter 1.7 cm IVC Diameter 2.2 cm M-MODE LA Ao Ratio MM 1.6 AV Cusp Separation MM 1.6 cm FINDINGS Left Ventricle Normal left ventricular wall thickness. Normal left ventricular size and systolic function, EF 73%. Right Ventricle Mildly increased right ventricular size. Mildly decreased right ventricular systolic function. Right Atrium Left Atrium IA Septum Mitral Valve Aortic Valve Probable bioprosthetic aortic valve. Not well visualized. Tricuspid Valve Pulmonic Valve Pericardium Aorta IVC CONCLUSIONS 1. Normal left ventricular cavity size and systolic function, EF 73%. 2. Mild concentric left ventricular hyypertrophy. 3. Mild right ventricular enlargement and mild right ventricular hypokinesis. Favian Cook MD, FACC (Electronically Signed) Final Date: 04 September 2025 23:05 S
--- NOTE | 2025-09-04 15:10 | USR_ITS ---
PROCEDURE INFORMATION: Exam: US Duplex Lower Extremity Veins, Bilateral Exam date and time: 09/04/2025 6:36 PM Age: 70 years old Clinical indication: Swelling (edema) of limb; Upper extremity, right TECHNIQUE: Imaging protocol: Real-time duplex ultrasound of the bilateral extremities with 2-D betts scale, color Doppler flow and spectral waveform analysis including responses to compression and other maneuvers (when performed) with image documentation. Complete exam focused on the lower extremity veins. COMPARISON: CT foot LT wo con* [id number] 08/03/2025 7:07 PM FINDINGS: Right deep veins: Unremarkable. The common femoral, femoral, proximal profunda femoral and popliteal veins are patent without thrombus. Normal Doppler waveforms. Normal compressibility and/or augmentation response. Visualized peroneal and posterior tibial calf veins appear unremarkable, as well. Left deep veins: Unremarkable. The common femoral, femoral, proximal profunda femoral and popliteal veins are patent without thrombus. Normal Doppler waveforms. Normal compressibility and/or augmentation response. Visualized peroneal and posterior tibial calf veins appear unremarkable, as well. Superficial veins: Greater saphenous veins at the saphenofemoral junctions are patent bilaterally without thrombus. Soft tissues: Distal soft tissue edema bilaterally. US/[place] [id number] IMPRESSION: No evidence of deep vein thrombosis.
--- NOTE | 2025-09-04 15:14 | PM.HP ---
Providers/Chief Complaint Primary Care Provider: Patrick Nick MD Chief Complaint: chest pain History of Present Illness Guy Wiseman is a 70 year old male past medical history of pulmonary embolism on Eliquis, history of prosthetic aortic valve replacement, pulmonary hypertension, history of bilateral lower extremity diabetic wounds, on vancomycin and Rocephin with PICC line in place, end-stage renal disease on dialysis, history of type 2 diabetes, history of diabetic neuropathy history of acute on chronic anemia requiring blood transfusion, recent history of EGD showing gastritis and erosions, history of atrial fibrillation on Eliquis, colonoscopy showing polyps requiring polypectomy, with recent hospitalization for acute respiratory failure, COPD, H. pylori positive, mass of upper lobe of right lung, during last hospitalization received 1 unit of blood, pulmonary embolism due to interruption of apixaban, discharged on apixaban, who presents to [facility] due to weakness, fatigue, chest pain patient reports that he lives at home with his girlfriend, he has been less ambulatory, increasingly weak, fatigued, he has had chest discomfort, with increased shortness of breath, bilateral extremity edema. Patient reports that the chest pain is minimal now, chest pain at rest, nonradiating, respiratory shortness of breath, lightheadedness Review of Systems Const: Reports: fatigue and malaise; Denies: fever(s) or chills Card: Reports: chest pain and palpitations Resp: Reports: dyspnea GI: Denies: abdominal pain Medications/Allergies Home Medications ?Medication ?Instructions ?Recorded ?Confirmed ?Last Taken ?Type Cam boot to left #1 ea 05/15/23 08/24/25 08/19/25 Rx bumetanide 1 mg tablet 2 mg PO DAILY 11/27/23 08/24/25 08/23/25 History levothyroxine 112 mcg tablet 112 mcg PO DAILY 11/27/23 08/24/25 08/23/25 History riociguat 2.5 mg tablet (Adempas) 2.5 mg PO TID 11/27/23 08/24/25 08/23/25 History Diabetic shoes #1 ea 08/25/24 08/24/25 08/19/25 Rx CAM walker #1 ea 04/20/25 08/24/25 08/19/25 Rx acetaminophen 500 mg tablet 1,000 mg PO Q6H PRN Fever Or Pain 07/18/25 08/24/25 08/19/25 History (Tylenol Extra Strength) apixaban 5 mg tablet (Eliquis) 5 mg PO BID 07/18/25 08/24/25 08/23/25 History atorvastatin 40 mg tablet 40 mg PO DAILY 07/18/25 08/24/25 08/23/25 History macitentan 10 mg tablet (Opsumit) 10 mg PO DAILY 08/02/25 08/24/25 08/23/25 History hydrocodone 5 mg-acetaminophen 325 1 tab PO Q8H PRN pain 4 days #12 08/03/25 08/24/25 08/19/25 Rx mg tablet tabs pantoprazole 40 mg tablet,delayed 40 mg PO BID 30 days #60 tabs 08/07/25 08/24/25 08/23/25 Rx release (Protonix) clarithromycin 500 mg tablet 500 mg PO BID 14 days #28 tabs 08/19/25 08/24/25 08/23/25 Rx metronidazole 500 mg tablet 500 mg PO BID 14 days #28 tabs 08/19/25 08/24/25 08/23/25 Rx ceftriaxone 1 gram solution for 1 g IV DAILY 08/24/25 08/24/25 08/19/25 History injection insulin aspart U-100 100 unit/mL See Rx Instructions .Route 08/31/25 Unknown Rx (3 mL) subcutaneous pen (Novolog .COMPLEX #15 mL FlexPen U-100 Insulin aspart) insulin glargine 100 unit/mL (3 10 unit (0.1 mL) SUBCUT BEDTIME 08/31/25 Unknown Rx mL) subcutaneous pen (Basaglar #15 mL KwikPen U-100 Insulin) Allergies Allergy/AdvReac Type Severity Reaction Status Date / Time No Known Allergies Allergy Verified 08/24/25 01:13 PFSH Acute PFSH: Medical History Mediastinal lymphadenopathy Lung mass Pericardial effusion Tobacco abuse Anemia Diabetes Warfarin anticoagulation Chest pain History of pulmonary embolism Congestive heart failure History of nonmelanoma skin cancer Hypothalamic hypothyroidism Hypertension History of blood clots COPD (chronic obstructive pulmonary disease) History of pulmonary embolism Surgical History S/P TAVR (transcatheter aortic valve replacement) History of rotator cuff surgery Social History Smoking and tobacco/nicotine status: former use of tobacco/nicotine Quit status (tobacco/nicotine): has quit using Year quit tobacco: 2024 Former quit date comment: a week ago Alcohol intake: never Substance/Drug Use: never Marital status: Life Partner Vitals/I&O/Wt Last Vital Signs Temp 98.1 F 09/04/25 12:52 Pulse 108 H 09/04/25 12:52 Resp 20 H 09/04/25 12:52 BP 94/47 09/04/25 12:52 Pulse Ox 98 09/04/25 12:52 O2 Del Method Nasal Cannula 09/04/25 12:52 O2 Flow Rate 2 09/04/25 12:52 Weight last 48 hrs Weight 78.471 kg Physical Exam Const: COMMON NORMALS: no acute distress and patient oriented x3 HENMT: COMMON NORMALS: normocephalic HEAD & SCALP: normocephalic Eye: COMMON NORMALS: Equal, round and reactive pupils present and EOMs intact bilaterally Neck/C-Spine: COMMON NORMALS: no JVD Lymph: LYMPHATIC: no lymphadenopathy noted Resp: COMMON NORMALS: normal respiratory effort, No retractions, No use of accessory muscles and clear to auscultation bilaterally Cardio: COMMON NORMALS: S1 normal heart sound present and S2 normal heart sound present RATE: tachycardic RHYTHM: abnormal rhythm irregularly irregular HEART SOUNDS: S1 normal heart sound present and S2 normal heart sound present GI: COMMON NORMALS: Normal to inspection, nondistended, normoactive bowel sounds present, Soft to palpation and non-tender OTHER: Anasarca, edema : OTHER: No CVA tenderness Neuro: COMMON NORMALS: patient oriented x3, CN's II-XII intact bilaterally and moves all extremities Psych: COMMON NORMALS: mental status grossly normal Skin: NARRATIVE SKIN EXAM: 2+ pitting edema Data 09/04/25 13:16 09/04/25 13:16 A&P Assessment and plan 1. Chest pain: 2. Peripheral arterial disease: 3. Pulmonary emboli: 4. Type 2 diabetes mellitus with foot ulcer: 5. GI bleed: 6. Acute kidney injury superimposed on CKD: 7. End stage renal disease on dialysis: 8. Symptomatic anemia: 9. NSTEMI (non-ST elevated myocardial infarction): 10. Shock: Plan: Chest pain - With NSTEMI - With acute on chronic anemia, concern for GI bleed, thrombocytopenia, elevated INR 1.9 -Type I versus type II NSTEMI Plan -Patient is on Eliquis, will hold for now, given patient's complications as above, discussed the risks and benefits of anticoagulant therapy, he voiced understanding, all questions answered, agreed to hold anticoagulant therapy for now -Certainly this is a difficult situation, but if he does develop recurrent chest pain, or EKG changes then we might have to consider trial of anticoagulant therapy -Aspirin, statin -Cardiac echo -Serial Ekg, start troponins, telemetry monitoring Acute on chronic anemia, concerns for slow GI bleed -Hemoglobin 6.3, INR 1.9, platelet count, 72,000 -EGD July 2025 showed moderate gastritis of the abdomen drome, several small erosions and a segment of bleeding, biopsies taken Endo Clip was placed in one of the biopsy sites as could oozing was noted -Colonoscopy status post polypectomy Plan -CT chest abdomen pelvis with IV contrast ? Receiving 2 units of PRBC -Monitor hemodynamics closely -Will consider iron infusions, IR iron studies -Will consider consulting general surgery, for repeat EGD based on clinical progress -Protonix, Carafate Shock -Monitor in ICU, MAP in 65 -Patient might require Levophed - Likely multifactorial - With acute on chronic anemia - Possible sepsis? - CRP, Pro-Giancarlo, blood cultures, urinalysis - Continue home vancomycin and Rocephin Sepsis? - Blood cultures - Urine cultures - UA - Cultures from diabetic foot infection Diabetic foot infection - Left foot - Wound care - Podiatry consulted - Vancomycin, Rocephin End-stage renal disease on dialysis -Nephrology consulted -Plans on dialysis today Weakness, fatigue, likely multifactorial PDMP PDMP Reviewed: Not Reviewed Attestations Medical Necessity Statement*: Patient requires hospitalization, inpatient, greater than 2 midnights for chest pain, NSTEMI, acute anemia, shock, GI bleed Diagnoses Chest pain R07.9 Peripheral arterial disease I73.9 Pulmonary emboli I26.99 Type 2 diabetes mellitus with foot ulcer E11.621; L97.509 GI bleed K92.2 Acute kidney injury superimposed on CKD N17.9; N18.9 End stage renal disease on dialysis N18.6; Z99.2 Symptomatic anemia D64.9 NSTEMI (non-ST elevated myocardial infarction) I21.4 Shock R57.9 Sepsis Event Note Evaluation Current stage of sepsis: sepsis Initial hypotension due to sepsis/infection: SBP < 90 mmHg Persistent hypotension due to sepsis/infection: SBP < 90 mmHg Focused Exam Vital Signs Temp Pulse Resp BP Pulse Ox O2 Del Method O2 Flow Rate 09/04/25 12:52 98.1 F 108 H 20 H 94/47 98 Nasal Cannula 2 Capillary refill: < 3 Seconds Peripheral pulse strength: 2+ Slightly Diminished Peripheral pulse location: Radial Skin exam: normal turgor Date exam was performed: 09/04/25 Time exam was performed: 15:41
[2025-09-04 15:31] LABS: Troponin 5 2HR 129.7 ng/L (0-15); Troponin 5 2HR Delta -5.3 ABS# (0-10)
--- NOTE | 2025-09-04 15:31 | CTR_ITS ---
PROCEDURE INFORMATION: Exam: CT Abdomen And Pelvis With Contrast Exam date and time: 09/04/2025 4:27 PM Age: 70 years old Clinical indication: Bloating; Additional info: Disention, flank pain, anemia TECHNIQUE: Imaging protocol: Computed tomography of the abdomen and pelvis with contrast. Radiation optimization: All CT scans at this facility use at least one of these dose optimization techniques: automated exposure control; mA and/or kV adjustment per patient size (includes targeted exams where dose is matched to clinical indication); or iterative reconstruction. Contrast material: OMNIPAQUE 350; Contrast volume: 100 ml; Contrast route: INTRAVENOUS (IV); COMPARISON: CT abdomen pelvis w con* [id number] 05/23/2021 5:27 PM RADIATION DOSE METRICS: Total DLP (mGy-cm): 571.63 FINDINGS: Pleural spaces: Partial visualization of the moderate right pleural effusion. Small left pleural effusion. Heart: Heart size upper limits for normal. No pericardial effusion. Diaphragm: Question small hiatal hernia. Liver: Hepatomegaly. Diffuse decreased density throughout the liver in keeping with hepatic steatosis. A portion of the liver surface appears nodular suggestive of changes of cirrhosis. No suspicious mass or lesion within the liver. Gallbladder and biliary ducts: Small amount of dense material is present at the level of the neck of the gallbladder. Findings compatible with a small amount of noncalcified stones or sludge. No gallbladder wall thickening. No intrahepatic ductal dilatation. Normal caliber of the common bile duct. Pancreas: The pancreas is unremarkable. Spleen: The spleen is unremarkable. Adrenal glands: The adrenal glands are unremarkable. Kidneys and ureters: Symmetric appearance of the right and left renal nephrograms. Small scattered cortical hypodensities are present within the right and left kidney. Largest measures up to 7 mm. These are indeterminate but more likely correspond to small cysts. There are numerous scattered calcifications within the central aspect of the right and left kidney. These are more compatible with arterial vascular calcifications. There likely are associated small punctate nonobstructing stones within the right and left kidney. Largest on the left measures 5 mm. Largest on the right measures up to 4 mm. No hydronephrosis. Mild perinephric stranding is present on the right and left. This is nonspecific. No focal perirenal fluid collection. Ureters appear unremarkable. Stomach and bowel: Stomach appears unremarkable. Nondistended fluid-filled small bowel loops are present throughout the abdomen. There is no evidence of a small bowel obstruction. [id number] amount of stool throughout the colon suggestive of some degree of constipation. No evidence for acute colitis. Appendix: Normal appendix. Intraperitoneal space: No significant peritoneal free fluid. No free peritoneal air. Vasculature: No infrarenal abdominal aortic aneurysm. Heavy calcified atherosclerotic plaque along the length of the abdominal aorta and extending along the iliac arteries. Mild fusiform dilatation of the right and left common iliac artery. External iliac arteries remain patent. Multiple areas of moderate stenosis are present within the right and left external iliac artery. Moderate stenosis within the right common iliac artery. Proximal aspect of the right internal iliac artery is occluded with reconstituted flow distally. High-grade stenosis at the origin of the left internal iliac artery. There is reconstituted flow distally. High-grade stenosis at the origin of the celiac artery. Very high-grade stenosis of the origin of the superior mesenteric artery. Superior mesenteric artery remains patent. High-grade stenosis of the origin of the inferior mesenteric artery. Inferior mesenteric artery remains patent. Main portal vein is patent. Lymph nodes: No suspicious mass or lymphadenopathy within the lesser sac. There are no enlarged portacaval lymph nodes. There are no enlarged intra-abdominal, pelvic or retroperitoneal lymph nodes. Prominent inguinal lymph nodes are present. These demonstrate central fatty jamie and more likely are reactive. Urinary bladder: Bladder is moderately distended. There is mild circumferential bladder wall thickening in keeping with bladder wall trabeculation. No bladder wall mass or nodularity. No bladder calculus. Reproductive: Prostate is enlarged and impresses upon the base of the bladder. Bones/joints: No new suspicious lytic or sclerotic bone lesion. Old anterior wedge compression fracture deformity at T12 is unchanged. There is resultant kyphosis centered at the T12 level. Slight retropulsion along the posterior margin of T12 is unchanged. No areas of severe central spinal canal stenosis. Multilevel advanced degenerative changes are present within the lower thoracic spine. Multilevel bridging osteophyte formation. Advanced degenerative facet arthropathy is present within the mid and lower lumbar spine, greater to the right. Moderately advanced osteoarthritic changes are present at the right and left hip joint. Soft tissues: Small periumbilical hernia containing fat. No inguinal hernia. Subcutaneous edema is present along the lateral aspect of the right and left pelvis, along the right and left flank and lower abdominal wall. No focal fluid collection or mass. CT/CT abdomen pelvis w con* [id number] IMPRESSION: 1. Hepatomegaly. Diffuse decreased density throughout the liver in keeping with hepatic steatosis. A portion of the liver surface appears nodular suggestive of changes of cirrhosis. No suspicious mass or lesion within the liver. 2. Partial visualization of the moderate right pleural effusion. Small left pleural effusion. 3. No ascites. No evidence of a bowel obstruction. No evidence of acute colitis or acute diverticulitis. 4. Advanced arterial vascular disease is present throughout the abdomen and pelvis as described. No infrarenal abdominal aortic aneurysm. 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 Superior mesenteric artery remains patent. 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 5. Bladder is distended. Mild circumferential bladder wall thickening in keeping with bladder wall trabeculation. Prostate is mildly enlarged and impresses upon the base of the bladder. 6. Small periumbilical hernia containing fat. 7. Small amount of dense material within the dependent portion of the neck of the gallbladder which may correspond to small amount of noncalcified stones or sludge. No gallbladder wall thickening. 8. Additional findings as described. COMMENTS: Consistent with the [employer]'s Incidental Findings Committee white paper (J Am Alejandro Radiol 2018): Any incidental renal lesion less than 1 cm or classified as too small to characterize, or any incidental cystic renal lesion characterized as simple-appearing, is likely benign. No follow-up imaging is recommended for these lesions per consensus recommendations based on imaging criteria.
[2025-09-04 15:33] LABS: INR 1.90 (0.8-1.2); Prothrombin Time 22.90 SECONDS (12.1-14.9)
[2025-09-04 15:39] LABS: Ferritin 407 ng/mL (30-400); Iron 42 ug/dL (59-158)
[2025-09-04 15:46] LABS: Procalcitonin 0.51 ng/mL (0-0.5)
[2025-09-04] MEDS: iohexol 350 mg/mL 500 mL Btl (per mL) IV (17:07)
--- NOTE | 2025-09-04 17:54 | PHA.VACGOAL ---
Vancomycin Goal - Goal Vancomycin Goal:: 15-20 mg/L Vancomycin Indication:: Other (SEPSIS) - Therapy Current therapy:: Other Antibiotic (CEFTRIAXONE) Day of therpy:: Day []of [] . Actual body weight (kg): 173 lb - Data Labs: WBC 10.53 10^3/uL (3.29-11.43) 09/04/25 13:16 RBC 2.18 10^6/uL (3.85-5.65) L 09/04/25 13:16 Hgb 6.30 g/dL (11.27-16.99) L* 09/04/25 13:16 Hct 19.7 % (37-53) L* 09/04/25 13:16 MCV 90.4 fl (82-101) 09/04/25 13:16 MCH 28.9 pg (27-33) 09/04/25 13:16 MCHC 32.0 g/dL (30-55) 09/04/25 13:16 RDW 16.5 % (12.1-15.1) H 09/04/25 13:16 Sodium 133 mmol/L (136-145) L 09/04/25 13:16 Potassium 3.3 mmol/L (3.5-5.1) L 09/04/25 13:16 Chloride 94 mmol/L (98-107) L 09/04/25 13:16 Carbon Dioxide 25 mmol/L (22-29) 09/04/25 13:16 Anion Gap 17.3 (5-19) 09/04/25 13:16 BUN 54 mg/dL (8-23) H 09/04/25 13:16 Creatinine 2.8 mg/dL (0.7-1.2) H 09/04/25 13:16 GFR Calculation Not Reportable 09/04/25 13:16 Last dialysis session:: Last session (PLAN FOR HD TODAY) Treatment plan:: new consult Regimen:: INITIAL LOADING DOSE SCHEDULED FOR POST HD TODAY 09/04 @2100 Follow up:: PLAN TO PULSE DOSE AND WILL OBTAIN A LEVEL WITH [facility] ON MORNING OF NEXT HD SESSION.
[2025-09-04] MEDS: pantoprazole 40 mg SDV IVP (18:01)
[2025-09-04] MEDS: cefTRIAXone 1,000 mg SDV 1000 MG IVP (18:02)
[2025-09-04] MEDS: sucralfate 1 gm/10 mL Oral Liq UDC PO (18:03)
[2025-09-04 18:14] LABS: Cholesterol 72 mg/dL (0-200); HDL Cholesterol 33 mg/dL (60-100); Triglycerides 115 mg/dL (0-150)
--- NOTE | 2025-09-04 18:41 | ECG_ITS ---
Cardinal Midstream Test Date: 2025-09-04 Pat Name: Guy Wiseman Department: Room: ICU11 Gender: Male Branch Service Leader: : 1955 Requested By: Arin Lopez Order Number: [id number] Valeria MD: Franklin Nuno M.D. Measurements Intervals [place] Rate: 98 P: 0 ND: 0 QRS: 116 QRSD: 100 T: 91 QT: 384 QTc: 491 Interpretive Statements ATRIAL FIBRILLATION WITH ABERRANT CONDUCTION OR VENTRICULAR PREMATURE COMPLEXES RIGHT AXIS DEVIATION [QRS AXIS > 100] POSSIBLE ANTERIOR MYOCARDIAL INFARCTION , PROBABLY OLD [30 ms Q WAVE IN V3/V4, OR R < 0.2 mV IN V4] Compared to ECG 09/04/2025 15:03:10 Ventricular premature complex(es) now present Aberrant conduction of supraventricular beat(s) now present Right-axis deviation now present Myocardial infarct finding now present Electronically Signed On 09-05-2025 12:06:37 CDT by Franklin Nuno M.D. [email or web address]
--- NOTE | 2025-09-04 19:37 | PC.NURSE ---
REceived patient from ER staff at 1740. Patient is alert, oriented to person, place, time, and situation. HR: 95 BP: 101/48 SPO2: 90% on 3L NC Temp: 98.1 Started transfusing unit of blood shortly after ICU arrival.
--- NOTE | 2025-09-04 19:40 | PC.NURSE ---
HOme medications: Patient has 2 home medications he brought with him. Adempas: 2.5mg tablets. Opsumit: 10mg tablets Placed patient name verification lead medicaiton bottles and placed in pyxis for future administrations.
[2025-09-04] MEDS: heparin, porcine 1,000 unit/mL INJ 10 mL 1000 UNIT IV (20:08)
[2025-09-04 20:11] LABS: Troponin 5 6HR 118.2 ng/L (0-15); Troponin 5 6HR Delta -16.8 ng/L (0-12)
[2025-09-04 20:24] LABS: Glucose Urine UA 2+ (Normal); Nitrate Urine Negative (Negative); Specific Gravity, Urine 1.024 (1.005-1.030)
[2025-09-04 20:29] LABS: Add Urine Microscopic? YES
[2025-09-04] MEDS: epoetin alfa-epbx (ESRD) 1 ML 20 UNIT HE (20:41)
[2025-09-04] MEDS: heparin, porcine 1,000 unit/mL INJ 10 mL 10000 UNIT INTRACATH (21:00)
[2025-09-05] VITALS (85 sets, daily range): BP systolic 81–127; BP diastolic 32–82; PULSE 91–113; RESP 8–32; TEMP 36.4–37.1; O2SAT 85–100
[2025-09-05] MEDS: sucralfate 1 gm/10 mL Oral Liq UDC PO ×5 (00:31→22:49)
[2025-09-05 04:24] LABS: Hematocrit 24.6 % (37-53); Hemoglobin 7.80 g/dL (11.27-16.99); Mean Corpuscular HGB Conc 31.7 g/dL (30-55); Mean Corpuscular Hemoglobin 28.5 pg (27-33); Mean Corpuscular Volume 89.8 fl (82-101); Nucleated Red Blood Cells % 0 %; Platelet Count 61 10^3/cmm (157-399); Red Blood Count 2.74 10^6/uL (3.85-5.65); White Blood Count 9.42 10^3/uL (3.29-11.43)
[2025-09-05] MEDS: pantoprazole 40 mg SDV IVP (04:35)
[2025-09-05 04:44] LABS: Lactate (Lactic Acid level) 0.9 mmol/L (0.5-2.2)
[2025-09-05 04:57] LABS: Magnesium 1.7 mg/dL (1.7-2.3)
[2025-09-05 05:05] LABS: NT Pro B Type Natriuretic Pept 13899 pg/mL (0-125); Procalcitonin 0.53 ng/mL (0-0.5)
[2025-09-05 05:20] LABS: Anion Gap 15.8 (5-19); Blood Urea Nitrogen 33 mg/dL (8-23); Calcium 7.7 mg/dL (8.5-10.5); Carbon Dioxide 25 mmol/L (22-29); Chloride 101 mmol/L (98-107); Glucose 205 mg/dL (65-115); Osmolality Calculated 299 mOsm/kg (285-295); Potassium 3.8 mmol/L (3.5-5.1); Sodium 138 mmol/L (136-145)
[2025-09-05 05:24] LABS: Creatinine Clr Calc Pharmacy 33.2170
--- NOTE | 2025-09-05 07:00 | XRR_ITS ---
PROCEDURE INFORMATION: Exam: XR Chest Exam date and time: 09/05/2025 8:48 AM Age: 70 years old Clinical indication: Cough; Additional info: SOB TECHNIQUE: Imaging protocol: Radiologic exam of the chest. Views: 1 view. COMPARISON: CR XR chest 1V portable [id number] 09/04/2025 12:49 PM FINDINGS: Tubes, catheters and devices: Right IJ dual-lumen venous catheter with proximal and distal tip superimposes the SVC. Right upper extremity PICC with tip superimposes the SVC. Lungs: Pulmonary vascular congestion and bilateral interstitial opacities greatest in the right upper lobe. Vague opacity in the medial right lung upper lung, unchanged. Pleural spaces: Small right pleural effusion. No appreciable pneumothorax. Heart/Mediastinum: No cardiomegaly. Aortic valve prosthesis. Bones/joints: Postoperative changes of the right shoulder. XR/XR chest 1V portable [id number] IMPRESSION: 1. Pulmonary vascular congestion and bilateral interstitial opacities greatest in the right upper lobe, most suggestive of pulmonary edema versus pneumonitis. 2. Small right pleural effusion. 3. Vague opacity in the medial right upper lung, unchanged.
--- NOTE | 2025-09-05 08:02 | PM.CONSULT ---
Providers/Reason For Consult Consulting Physician/Specialty*: Dr. Wyatt Will, D.P.M./podiatry Reason for Consult*: Left foot wound Attending Physician: Cruz Fang MD Primary Care Provider: Patrick Nick MD History of Present Illness History of Present Illness Guy Wiseman is a 70 year old male currently mated to ICU. Has history of left foot wound being managed by wound care outpatient. Podiatry was evaluated to evaluate wound and provide treatment recommendations while inpatient. Review of Systems General: Reports: 10 or more systems reviewed and unremarkable except in HPI and below Const: Denies: fever(s), chills, body aches or change in appetite Eyes: Denies: change in vision or blurry vision Card: Denies: chest pain, palpitations or irregular heart rhythm Resp: Denies: dyspnea GI: Denies: abdominal pain, nausea, vomiting or diarrhea Musc: Reports: joint stiffness Skin/Breast: Reports: non-healing lesions and lesions Neuro: Reports: numbness in extremities Medications/Allergies Home Medications ?Medication ?Instructions ?Recorded ?Confirmed ?Last Taken ?Type Cam boot to left #1 ea 05/15/23 09/04/25 08/19/25 Rx bumetanide 1 mg tablet 2 mg PO DAILY 11/27/23 09/04/25 09/04/25 08:00 History levothyroxine 112 mcg tablet 112 mcg PO DAILY 11/27/23 09/04/25 09/04/25 07:00 History riociguat 2.5 mg tablet (Adempas) 2.5 mg PO TID 11/27/23 09/04/25 09/04/25 08:00 History Diabetic shoes #1 ea 08/25/24 09/04/25 08/19/25 Rx CAM walker #1 ea 04/20/25 09/04/25 08/19/25 Rx acetaminophen 500 mg tablet 1,000 mg PO Q6H PRN Fever Or Pain 07/18/25 09/04/25 08/19/25 History (Tylenol Extra Strength) apixaban 5 mg tablet (Eliquis) 5 mg PO BID 07/18/25 09/04/25 09/04/25 08:00 History atorvastatin 40 mg tablet 40 mg PO DAILY 07/18/25 09/04/25 09/04/25 08:00 History macitentan 10 mg tablet (Opsumit) 10 mg PO DAILY 08/02/25 09/04/25 09/04/25 08:00 History pantoprazole 40 mg tablet,delayed 40 mg PO BID 30 days #60 tabs 08/07/25 09/04/25 09/04/25 08:00 Rx release (Protonix) clarithromycin 500 mg tablet 500 mg PO BID 14 days #28 tabs 08/19/25 09/04/25 09/02/25 Rx metronidazole 500 mg tablet 500 mg PO BID 14 days #28 tabs 08/19/25 09/04/25 09/04/25 08:00 Rx ceftriaxone 1 gram solution for 1 g IV DAILY 08/24/25 09/04/25 09/04/25 History injection insulin aspart U-100 100 unit/mL See Rx Instructions .Route 08/31/25 09/04/25 09/04/25 07:00 Rx (3 mL) subcutaneous pen (Novolog .COMPLEX #15 mL FlexPen U-100 Insulin aspart) insulin glargine 100 unit/mL (3 10 unit (0.1 mL) SUBCUT BEDTIME 08/31/25 09/04/25 Unknown Rx mL) subcutaneous pen (Basaglar #15 mL KwikPen U-100 Insulin) Allergies Allergy/AdvReac Type Severity Reaction Status Date / Time No Known Allergies Allergy Verified 08/24/25 01:13 Current Medications Generic Name Dose Route Start Last Admin Trade Name Freq PRN Reason Stop Dose Admin Albuterol/Ipratropium 3 ml 09/04/25 20:00 09/04/25 20:28 Ipratropium-Albuterol 3 Ml Neb INHALATION 3 ml QID.RESPIRATORY CHUY Administration Aspirin 81 mg 09/05/25 05:00 09/05/25 04:35 Aspirin 81 Mg Ec Tablet PO 81 mg DAILY CHUY Administration Atorvastatin Calcium 40 mg 09/05/25 05:00 09/05/25 04:35 Atorvastatin 40 Mg Tablet PO 40 mg DAILY CHUY Administration Ceftriaxone Sodium 1,000 mg 09/04/25 17:32 09/04/25 18:02 Ceftriaxone 1,000 Mg Sdv IVP 1,000 mg Q24H CHUY Administration Protocol Insulin Human Lispro 0 unit 09/04/25 18:00 09/05/25 07:49 Insulin Lispro 100 Unit/1 Ml SUBCUT 4 unit TIDWM CHUY Administration Protocol Levothyroxine Sodium 112 mcg 09/05/25 05:00 09/05/25 04:35 Levothyroxine 112 Mcg Tablet PO 112 mcg DAILY CHUY Administration Pantoprazole Sodium 40 mg 09/04/25 17:32 09/05/25 04:35 Pantoprazole 40 Mg Sdv IVP 40 mg Q12H CHUY Administration Sucralfate 1 gm 09/04/25 17:32 09/05/25 05:20 Sucralfate 1 Gm/10 Ml Oral Liq Udc PO 1 gm Q6H CHUY Administration PFSH Acute PFSH: Medical History (Updated 09/05/25 @ 18:51 by Wyatt Will DPM) Mediastinal lymphadenopathy Lung mass Pericardial effusion Tobacco abuse Anemia Diabetes Warfarin anticoagulation Chest pain History of pulmonary embolism Congestive heart failure History of nonmelanoma skin cancer Hypothalamic hypothyroidism Hypertension History of blood clots COPD (chronic obstructive pulmonary disease) History of pulmonary embolism Surgical History S/P TAVR (transcatheter aortic valve replacement) History of rotator cuff surgery Social History Smoking and tobacco/nicotine status: former use of tobacco/nicotine Quit status (tobacco/nicotine): has quit using Year quit tobacco: 2024 Former quit date comment: a week ago Alcohol intake: never Substance/Drug Use: never Marital status: Life Partner Vitals/I&O/Wt Last Vital Signs Temp 98.2 F 09/05/25 05:49 Pulse 100 09/05/25 05:48 Resp 18 09/05/25 05:00 BP 117/56 09/05/25 05:00 Pulse Ox 91 09/05/25 05:00 O2 Del Method Nasal Cannula 09/04/25 20:00 O2 Flow Rate 3 09/04/25 20:00 09/04/25 09/05/25 09/05/25 22:59 06:59 14:59 Intake Total 750 / 750 1375 / 2125 Output Total 350 / 350 3275 / 3625 Balance 400 / 400 -1900 / -1500 Weight last 48 hrs Weight 167 lb 3.2 oz Weight 169 lb 12.095 oz Weight 170 lb 8 oz Weight 173 lb Physical Exam Narrative: BELOW IS A FOCUSED LOWER EXTREMITY EXAM GENERAL: A&O x 3 VASCULAR: DP/PT pulses palpable 2/4 with CFT intact, <3seconds to distal digits DERMATOLOGICAL: Full-thickness ulceration to plantar lateral aspect of fifth metatarsal head left foot. Hyperkeratotic borders. No active drainage no underlying fluctuance no signs of deep space infection. Wound is stable and granular. MUSCULOSKELETAL: Ankle joint and hindfoot range of motion within normal limits bilaterally. No tenderness with palpation of medial, lateral or anterior ankle bilaterally. No tenderness with palpation of lateral ankle ligaments bilaterally. No pain with palpation of midfoot bilaterally. 5/5 muscle strength in all 4 quadrants of the lower extremity when tested against resistance. No gross musculoskeletal deformities noted. NEUROLOGICAL: Neurological sensation to the affected foot and ankle is present through L4-S1 dermatomes with no hyper/hypoesthesias, negative Tinel or Valleix's sign Data 09/05/25 04:13 09/05/25 04:13 Micro: Microbiology 09/04/25 15:38 Blood Culture - Preliminary Blood SPECIMEN COLLECTED 09/04/25 15:38 Blood Culture - Preliminary Blood SPECIMEN COLLECTED A&P Assessment and plan 1. Ulcer of left foot with fat layer exposed: 2. Type 2 diabetes mellitus with foot ulcer: Plan: Left foot ulcer No surgical intervention by podiatry during this admission. Wound is stable. No signs of infection. Continue with daily saline wet-to-dry dressing. Follow-up with wound care in the outpatient setting. Discharge plan: Okay to discharge home from podiatry standpoint with follow-up wound care. PDMP PDMP Reviewed: Not Reviewed Coding Level of Care Code Acute Code for [facility] Diagnoses Ulcer of left foot with fat layer exposed L97.522 Type 2 diabetes mellitus with foot ulcer E11.621; L97.509
--- NOTE | 2025-09-05 08:18 | PM.CONSULT ---
Providers/Reason For Consult Consulting Physician/Specialty*: Franklin Nuno MD/ Interventional cardiology Reason for Consult*: Pulmonary emboli/ Chest pain Requesting Physician: Dr Fang Attending Physician: Cruz Fang MD Primary Care Provider: Patrick Nick MD History of Present Illness History of Present Illness Guy Wiseman is a 70 year old male with recent diagnosis of pulmonary embolism, history of lung mass GI bleed history and severe anemia who was recently discharged home on Eliquis. He has come back with chest pain and fatigue. Was found to have significant anemia and hemoglobin of 6.3. Recent CTA chest had showed pulmonary emboli in 2nd and 3rd degree branches of lower lobes. No large central PE was seen. Ultrasound Doppler does not show lower extremity DVT. Hemoglobin has improved now. Troponins were elevated however they did not trend up significantly. EKG showing possible atrial fibrillation. Interventional cardiology consulted for assessing possibility of IVC filter placement and for chest pain work up. Troponin are 135--129--118. Echo shows normal LV systolic function. Mild RV hypokinesis. Review of Systems Const: Reports: fatigue and malaise; Denies: fever(s) or chills Card: Reports: chest pain and palpitations Resp: Reports: dyspnea GI: Denies: abdominal pain Medications/Allergies Home Medications ?Medication ?Instructions ?Recorded ?Confirmed ?Last Taken ?Type Cam boot to left #1 ea 05/15/23 09/04/25 08/19/25 Rx bumetanide 1 mg tablet 2 mg PO DAILY 11/27/23 09/04/25 09/04/25 08:00 History levothyroxine 112 mcg tablet 112 mcg PO DAILY 11/27/23 09/04/25 09/04/25 07:00 History riociguat 2.5 mg tablet (Adempas) 2.5 mg PO TID 11/27/23 09/04/25 09/04/25 08:00 History Diabetic shoes #1 ea 08/25/24 09/04/25 08/19/25 Rx CAM walker #1 ea 04/20/25 09/04/25 08/19/25 Rx acetaminophen 500 mg tablet 1,000 mg PO Q6H PRN Fever Or Pain 07/18/25 09/04/25 08/19/25 History (Tylenol Extra Strength) apixaban 5 mg tablet (Eliquis) 5 mg PO BID 07/18/25 09/04/25 09/04/25 08:00 History atorvastatin 40 mg tablet 40 mg PO DAILY 07/18/25 09/04/25 09/04/25 08:00 History macitentan 10 mg tablet (Opsumit) 10 mg PO DAILY 08/02/25 09/04/25 09/04/25 08:00 History pantoprazole 40 mg tablet,delayed 40 mg PO BID 30 days #60 tabs 08/07/25 09/04/25 09/04/25 08:00 Rx release (Protonix) clarithromycin 500 mg tablet 500 mg PO BID 14 days #28 tabs 08/19/25 09/04/25 09/02/25 Rx metronidazole 500 mg tablet 500 mg PO BID 14 days #28 tabs 08/19/25 09/04/25 09/04/25 08:00 Rx ceftriaxone 1 gram solution for 1 g IV DAILY 08/24/25 09/04/25 09/04/25 History injection insulin aspart U-100 100 unit/mL See Rx Instructions .Route 08/31/25 09/04/25 09/04/25 07:00 Rx (3 mL) subcutaneous pen (Novolog .COMPLEX #15 mL FlexPen U-100 Insulin aspart) insulin glargine 100 unit/mL (3 10 unit (0.1 mL) SUBCUT BEDTIME 08/31/25 09/04/25 Unknown Rx mL) subcutaneous pen (Basaglar #15 mL KwikPen U-100 Insulin) Allergies Allergy/AdvReac Type Severity Reaction Status Date / Time No Known Allergies Allergy Verified 08/24/25 01:13 Current Medications Generic Name Dose Route Start Last Admin Trade Name Freq PRN Reason Stop Dose Admin Albuterol/Ipratropium 3 ml 09/04/25 20:00 09/04/25 20:28 Ipratropium-Albuterol 3 Ml Neb INHALATION 3 ml QID.RESPIRATORY CHUY Administration Aspirin 81 mg 09/05/25 05:00 09/05/25 04:35 Aspirin 81 Mg Ec Tablet PO 81 mg DAILY CHUY Administration Atorvastatin Calcium 40 mg 09/05/25 05:00 09/05/25 04:35 Atorvastatin 40 Mg Tablet PO 40 mg DAILY CHUY Administration Ceftriaxone Sodium 1,000 mg 09/04/25 17:32 09/04/25 18:02 Ceftriaxone 1,000 Mg Sdv IVP 1,000 mg Q24H CHUY Administration Protocol Insulin Human Lispro 0 unit 09/04/25 18:00 09/05/25 07:49 Insulin Lispro 100 Unit/1 Ml SUBCUT 4 unit TIDWM CHUY Administration Protocol Levothyroxine Sodium 112 mcg 09/05/25 05:00 09/05/25 04:35 Levothyroxine 112 Mcg Tablet PO 112 mcg DAILY CHUY Administration Sucralfate 1 gm 09/04/25 17:32 09/05/25 05:20 Sucralfate 1 Gm/10 Ml Oral Liq Udc PO 1 gm Q6H CHUY Administration PFSH Acute PFSH: Medical History (Updated 09/04/25 @ 15:31 by Cruz Fang MD) Mediastinal lymphadenopathy Lung mass Pericardial effusion Tobacco abuse Anemia Diabetes Warfarin anticoagulation Chest pain History of pulmonary embolism Congestive heart failure History of nonmelanoma skin cancer Hypothalamic hypothyroidism Hypertension History of blood clots COPD (chronic obstructive pulmonary disease) History of pulmonary embolism Surgical History S/P TAVR (transcatheter aortic valve replacement) History of rotator cuff surgery Social History Smoking and tobacco/nicotine status: former use of tobacco/nicotine Quit status (tobacco/nicotine): has quit using Year quit tobacco: 2024 Former quit date comment: a week ago Alcohol intake: never Substance/Drug Use: never Marital status: Life Partner Vitals/I&O/Wt Last Vital Signs Temp 98.2 F 09/05/25 05:49 Pulse 100 09/05/25 05:48 Resp 18 09/05/25 05:00 BP 117/56 09/05/25 05:00 Pulse Ox 91 09/05/25 05:00 O2 Del Method Nasal Cannula 09/04/25 20:00 O2 Flow Rate 3 09/04/25 20:00 09/04/25 09/05/25 09/05/25 22:59 06:59 14:59 Intake Total 750 / 750 1375 / 2125 Output Total 350 / 350 3275 / 3625 Balance 400 / 400 -1900 / -1500 Weight last 48 hrs Weight 167 lb 3.2 oz Weight 169 lb 12.095 oz Weight 170 lb 8 oz Weight 173 lb Physical Exam Narrative: GENERAL: Patient is alert, awake and oriented x3. [] NECK: No jugular vein distension. [] HEENT: No cyanosis. No icterus. No pallor. [] HEART: Regular S1 and S2. Grade 2/6 systolic murmur LUNGS: Diminished air entry bilaterally CENTRAL NERVOUS SYSTEM: Grossly nonfocal. [] EXTREMITIES: Lower extremities with 1+ edema bilaterally. Data 09/05/25 04:13 09/05/25 04:13 Micro: Microbiology 09/04/25 15:38 Blood Culture - Preliminary Blood SPECIMEN COLLECTED 09/04/25 15:38 Blood Culture - Preliminary Blood SPECIMEN COLLECTED A&P Assessment and plan 1. History of pulmonary embolism: 2. Chest pain: 3. S/P TAVR (transcatheter aortic valve replacement): 4. Anemia: Plan: Patient has pulmonary emboli that were recently diagnosed. Echo shows RV dysfunction. He has presented again with severe anemia requiring transfusion. As anticoagulation can not be resumed and his limited mobility, he has an indication for IVC filter placement. Will plan on placing it tomorrow. NPO past midnight. Chest pain is atypical. Echo shows normal LV systolic function and troponins are downtrending. Troponin elevation likely secondary to demand ischemia in setting of severe anemia and tachycardia. Once patient is stable, can plan for stress testing. Thank you for involving us with care of this patient. Will continue to follow. Please call with questions. PDMP PDMP Reviewed: Not Reviewed Coding Level of Care Code Acute Code for Chg Fwd Diagnoses History of pulmonary embolism Z86.711 Chest pain R07.9 S/P TAVR (transcatheter aortic valve replacement) Z95.2 Anemia D64.9
[2025-09-05 08:21] LABS: LAB Peripheral Smear Sent for Review
[2025-09-05 08:47] LABS: HIV 1 & 2 Antigen Non-Reactive (Non-Reactiv)
[2025-09-05 08:48] LABS: Hepatitis A Antibody IgM Non-Reactive (Nonreactive); Hepatitis B Surface Antigen Non-Reactive (Nonreactive)
--- NOTE | 2025-09-05 11:50 | P.PN_ITS ---
Subjective 2 Subjective: on 6L NC Medications: Reviewed: Yes Vitals/I&O/Wt Last Vital Signs Temp 98.2 F 09/05/25 05:49 Pulse 99 09/05/25 11:26 Resp 18 09/05/25 11:17 BP 117/56 09/05/25 05:00 Pulse Ox 94 09/05/25 11:17 O2 Del Method Nasal Cannula 09/05/25 11:17 O2 Flow Rate 6 09/05/25 11:17 09/04/25 09/05/25 09/05/25 22:59 06:59 14:59 Intake Total 750 / 750 1375 / 2125 Output Total 350 / 350 3275 / 3625 Balance 400 / 400 -1900 / -1500 Weight last 48 hrs Weight 75.841 kg Weight 77 kg Weight 77.337 kg Weight 78.471 kg Physical Exam 2 Narrative: awake, alert , no distress No JVD PEERLA S1S2 RRR Lungs with saskia crackles Abd soft , non tender Ext no edema no skin rash Data 09/05/25 04:13 09/05/25 04:13 Micro: Microbiology 09/04/25 15:38 Blood Culture - Preliminary Blood SPECIMEN COLLECTED 09/04/25 15:38 Blood Culture - Preliminary Blood SPECIMEN COLLECTED A&P Assessment and plan 1. End stage renal disease on dialysis: Plan: 1. End-stage renal disease: Recently initiated on hemodialysis, patient now is volume overloaded but also is hypotensive. Will plan for hemodialysis today and UF as tolerated 2. Hypotension, rule out sepsis, monitor closely, IV albumin with HD 3. Severe anemia, acute on chronic, plan for 2 units PRBCs today, will also give Epogen 4. Hypokalemia, will run on a 3K dialysate 5. Elevated troponin, likely demand ischemia, management per primary team 6. h/oAVR Today's evaluation. Time spent 40 minutes. PDMP PDMP Reviewed: Not Reviewed Attestations 2 Medical Necessity Statement*: per medicne Coding Level of Care Code Acute Code for Chg Fwd Diagnoses End stage renal disease on dialysis N18.6; Z99.2
--- NOTE | 2025-09-05 17:48 | P.PN_ITS ---
Subjective 2 Subjective: Patient was seen this morning, patient's is at bedside - Discussed his acute anemia, recurrent hospitalization for acute anemia, with his history of pulmonary embolism, discussed the risk benefits of IVC filter placement, he agreed to proceed - Discussed persistent acute anemia, no bloody or black stools reported, discussed blood transfusion, - Discussed thrombocytopenia, monitoring - Discussed this chest pain, NSTEMI, dis cussed medical management consideration of stress testing patient clinical progress - Currently complain shortness of breath , fluid overload concerns on chest x- ray, CT abdomen, elevated BP discussed dialysis today - Discussed CT scan findings of advanced arterial vascular disease of the abdomen, discussed avoiding hypotension, continue aspirin, issues with anticoagulation as above, monitor for abdominal pain, monitoring for mesenteric ischemia, vascular surgery follow-up - Discussed his history of lung mass, fo llow-up with pulmonary as outpatient Vitals/I&O/Wt Last Vital Signs Temp 98.0 F 09/05/25 16:15 Pulse 101 H 09/05/25 16:15 Resp 20 H 09/05/25 16:15 BP 101/39 09/05/25 16:15 Pulse Ox 90 09/05/25 16:15 O2 Del Method Nasal Cannula 09/05/25 16:00 O2 Flow Rate 6 09/05/25 16:00 09/05/25 09/05/25 09/05/25 06:59 14:59 22:59 Intake Total 1375 / 2125 240 / 240 350 / 590 Output Total 3275 / 3625 350 / 350 Balance -1900 / -1500 -110 / -110 350 / 240 Weight last 48 hrs Weight 75.841 kg Weight 77 kg Weight 77.337 kg Weight 78.471 kg Physical Exam 2 Const: COMMON NORMALS: no acute distress and patient oriented x3 Chest: OTHER: Right chest dialysis catheter in place Resp: COMMON NORMALS: normal respiratory effort, No retractions and No use of accessory muscles AUSCULTATION: crackles and wheezes Cardio: COMMON NORMALS: regular rate, regular rhythm, S1 normal heart sound present and S2 normal heart sound present RATE: regular rate RHYTHM: r egular rhythm HEART SOUNDS: S1 normal heart sound present and S2 normal heart sound present GI: COMMON NORMALS: Normal to inspection, nondistended, normoactive bowel sounds present, non-tender and no masses Extremity: COMMON NORMALS: no calf tenderness NARRATIVE EXTREMITY EXAM: 2+ pitting edema, anasarca Neuro: COMMON NORMALS: patient oriented x3 Psych: COMMON NORMALS: mental status grossly normal Data 09/05/25 04:13 09/05/25 04:13 Micro: Microbiology 09/04/25 15:38 Blood Culture - Preliminary Blood NEGATIVE TO DATE 09/04/25 15:38 Blood Culture - Preliminary Blood NEGATIVE TO DATE A&P Assessment and plan 1. Chest pain: 2. Peripheral arterial disease: 3. Pulmonary emboli: 4. Type 2 diabetes mellitus with foot ulcer: 5. GI bleed: 6. Acute kidney injury superimposed on CKD: 7. End stage renal disease on dialysis: 8. Symptomatic anemia: 9. NSTEMI (non-ST elevated myocardial infarction): 10. Shock: Plan: Chest pain - With NSTEMI - With acute on chronic anemia, concern for GI bleed, thrombocytopenia, elevated INR 1.9 -Type I versus type II NSTEMI Plan -Patient is on Eliquis, will hold for now, given patient's complications as above, discussed the risks and benefits of anticoagulant therapy, he voiced understanding, all questions answered, agreed to hold anticoagulant therapy for now -Certainly this is a difficult situation, but if he does develop recurrent chest pain, or EKG changes then we might have to consider trial of anticoagulant therapy -Aspirin, statin -Cardiac echo CONCLUSIONS 1. Normal left ventricular cavity size and systolic function, EF 73%. 2. Mild concentric left ventricular hyypertrophy. 3. Mild right ventricular enlargement and mild right ventricular -Serial Ekg, start troponins, telemetry monitoring - Stress testing on clinical progress Thrombocytopenia, haptoglobin, LDH, sed rate, peripheral smear Acute hypoxic respiratory failure - Fluid overload, bilateral effusions, pulm edema - Bumex 1 mg IV twice daily - Nephrology consulted for dialysis Acute on chronic anemia, concerns for slow GI bleed -Hemoglobin 7.8, INR 1.9, platelet count, 61,000 -EGD July 2025 showed moderate gastritis of the abdomen drome, several small erosions and a segment of bleeding, biopsies taken Endo Clip was placed in one of the biopsy sites as could oozing was noted -Colonoscopy status post polypectomy Plan -CT chest abdomen pelvis with IV contrast no acute bleed ? Receiving 2 units of PRBC, hemoglobin 7.8 -Will transfuse 1 unit PRBC -Monitor hemodynamics closely -Will consider iron infusions, IR iron studies -Will consider consulting general surgery, for repeat EGD based on clinical progress -Protonix, Carafate - Consulted cardiology, for IVC filter placement History of pulmonary embolism - On Eliquis, currently on hold due to acute anemia -Recurrent anemia requiring blood transfusions - Cardiology consulted for IVC filter placement Advanced arterial vascular disease in the abdomen CT/CT abdomen pelvis w con* [id number] IMPRESSION: 4. Advanced arterial vascular disease is present throughout the abdomen and pelvis as described. No infrarenal abdominal aortic aneurysm. 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 Superior mesenteric artery remains patent. 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 Plan - Aspirin, statin - Avoid hypotension - Will need to follow-up with vascular surgery as outpatient Shock -Monitor in ICU, MAP in 65 -Patient might require Levophed - Likely multifactorial - With acute on chronic anemia - Possible sepsis? - Continue home vancomycin and Rocephin Sepsis? - Blood cultures - Urine cultures - UA - Cultures from diabetic foot infection Diabetic foot infection - Left foot - Wound care - Podiatry consulted - Vancomycin, Rocephin End-stage renal disease on dialysis -Nephrology consulted -Plans on dialysis today Weakness, fatigue, likely multifactorial PDMP PDMP Reviewed: Not Reviewed Attestations 2 Medical Necessity Statement*: Patient requires hospitalization for fluid overload, acute anemia, shock, acute respiratory failure, chest pain, NSTEMI, Diagnoses Chest pain R07.9 Peripheral arterial disease I73.9 Pulmonary emboli I26.99 Type 2 diabetes mellitus with foot ulcer E11.621; L97.509 GI bleed K92.2 Acute kidney injury superimposed on CKD N17.9; N18.9 End stage renal disease on dialysis N18.6; Z99.2 Symptomatic anemia D64.9 NSTEMI (non-ST elevated myocardial infarction) I21.4 Shock R57.9
[2025-09-05] MEDS: cefTRIAXone 1,000 mg SDV 1000 MG IVP (18:27)
[2025-09-05] MEDS: bumetanide 0.25 mg/mL SDV 4 mL 1 MG IVP (18:28)
[2025-09-05] MEDS: vancomycin 500 MG in sodium chloride 0.9% (plus) 100 ML 200 MG IV (19:43)
[2025-09-05 19:52] LABS: Hematocrit 25.9 % (37-53); Hemoglobin 8.40 g/dL (11.27-16.99); Mean Corpuscular HGB Conc 32.4 g/dL (30-55); Mean Corpuscular Hemoglobin 28.9 pg (27-33); Mean Corpuscular Volume 89.0 fl (82-101); Nucleated Red Blood Cells % 0.2 %; Platelet Count 48 10^3/cmm (157-399); Red Blood Count 2.91 10^6/uL (3.85-5.65); White Blood Count 12.31 10^3/uL (3.29-11.43)
[2025-09-06] VITALS (66 sets, daily range): BP systolic 88–135; BP diastolic 40–65; PULSE 93–113; RESP 17–38; TEMP 36.4–37.1; O2SAT 83–100
[2025-09-06] MEDS: bumetanide 0.25 mg/mL SDV 4 mL 1 MG IVP ×3 (03:59→17:08)
[2025-09-06 04:15] LABS: Hematocrit 24.1 % (37-53); Hemoglobin 7.60 g/dL (11.27-16.99); Mean Corpuscular HGB Conc 31.5 g/dL (30-55); Mean Corpuscular Hemoglobin 28.6 pg (27-33); Mean Corpuscular Volume 90.6 fl (82-101); Nucleated Red Blood Cells % 0 %; Platelet Count 50 10^3/cmm (157-399); Red Blood Count 2.66 10^6/uL (3.85-5.65); White Blood Count 8.46 10^3/uL (3.29-11.43)
[2025-09-06 04:37] LABS: Magnesium 1.7 mg/dL (1.7-2.3)
[2025-09-06 04:38] LABS: Lactate (Lactic Acid level) 1.4 mmol/L (0.5-2.2)
[2025-09-06 04:42] LABS: Procalcitonin 0.58 ng/mL (0-0.5)
[2025-09-06 04:46] LABS: Anion Gap 14.8 (5-19); Blood Urea Nitrogen 35 mg/dL (8-23); Calcium 7.6 mg/dL (8.5-10.5); Carbon Dioxide 25 mmol/L (22-29); Chloride 103 mmol/L (98-107); Glucose 344 mg/dL (65-115); NT Pro B Type Natriuretic Pept 12142 pg/mL (0-125); Osmolality Calculated 310 mOsm/kg (285-295); Potassium 3.8 mmol/L (3.5-5.1); Sodium 139 mmol/L (136-145)
[2025-09-06 04:48] LABS: Creatinine Clr Calc Pharmacy 33.2170
[2025-09-06] MEDS: sucralfate 1 gm/10 mL Oral Liq UDC PO ×4 (05:32→22:45)
--- NOTE | 2025-09-06 08:23 | P.PN_ITS ---
Subjective 2 Subjective: Patient has been coughing and desats on laying down. No significant chest pain at this time. Vitals/I&O/Wt Last Vital Signs Temp 98.7 F 09/06/25 04:00 Pulse 98 09/06/25 06:30 Resp 21 H 09/06/25 06:30 BP 115/49 09/06/25 06:30 Pulse Ox 91 09/06/25 06:00 O2 Del Method Nasal Cannula 09/05/25 20:00 O2 Flow Rate 6 09/05/25 16:00 09/05/25 09/06/25 09/06/25 22:59 06:59 14:59 Intake Total 1170 / 1410 Output Total 2434 / 2784 500 / 3284 Balance -1264 / -1374 -500 / -1874 Weight last 48 hrs Weight 167 lb 3.2 oz Weight 166 lb 7.184 oz Weight 167 lb 3.2 oz Weight 169 lb 12.095 oz Weight 170 lb 8 oz Weight 173 lb Physical Exam 2 Narrative: GENERAL: Patient is alert, awake and oriented x3. [] NECK: No jugular vein distension. [] HEENT: No cyanosis. No icterus. No pallor. [] HEART: Regular S1 and S2. Grade 2/6 systolic murmur LUNGS: Diminished air entry bilaterally CENTRAL NERVOUS SYSTEM: Grossly nonfocal. [] EXTREMITIES: Lower extremities with 1+ edema bilaterally. Data 09/06/25 03:57 09/06/25 03:57 Micro: Microbiology 09/04/25 15:38 Blood Culture - Preliminary Blood NEGATIVE TO DATE 09/04/25 15:38 Blood Culture - Preliminary Blood NEGATIVE TO DATE A&P Assessment and plan 1. History of pulmonary embolism: 2. Chest pain: 3. S/P TAVR (transcatheter aortic valve replacement): 4. Anemia: Plan: Patient has pulmonary emboli that were recently diagnosed. Echo shows RV dysfunction. He has presented again with severe anemia requiring transfusion. As anticoagulation can not be resumed and his limited mobility, he has an indication for IVC filter placement. Tentative plan was to perform IVC filter today but he appears to be volume overloaded and desats when lays down. He is getting diuresed and also will get dialysis today. Will be reassessed tomorrow for IVC filter placement. NPO after midnight. Chest pain is atypical. Echo shows normal LV systolic function and troponins are downtrending. Troponin elevation likely secondary to demand ischemia in setting of severe anemia and tachycardia. Once patient is stable, can plan for stress testing. Thank you for involving us with care of this patient. Will continue to follow. Please call with questions. PDMP PDMP Reviewed: Not Reviewed Attestations 2 Medical Necessity Statement*: Care expected to cross 2 midnights. Coding Level of Care Code Acute Code for Chg Fwd Diagnoses History of pulmonary embolism Z86.711 Chest pain R07.9 S/P TAVR (transcatheter aortic valve replacement) Z95.2 Anemia D64.9
[2025-09-06 09:42] LABS: INR 1.14 (0.8-1.2); Prothrombin Time 15.40 SECONDS (12.1-14.9)
[2025-09-06 09:43] LABS: Partial Thromboplastin Time 32.8 SECONDS (23.9-36.7)
--- NOTE | 2025-09-06 10:26 | P.PN_ITS ---
Subjective 2 Subjective: s/p HD yesterday on 6L o2 nc Medications: Reviewed: Yes Vitals/I&O/Wt Last Vital Signs Temp 97.6 F 09/06/25 09:55 Pulse 103 H 09/06/25 09:55 Resp 22 H 09/06/25 09:55 BP 95/44 09/06/25 09:55 Pulse Ox 94 09/06/25 09:55 O2 Del Method Nasal Cannula 09/06/25 08:36 O2 Flow Rate 6 09/06/25 08:36 09/05/25 09/06/25 09/06/25 22:59 06:59 14:59 Intake Total 1170 / 1410 340 / 340 Output Total 2434 / 2784 500 / 3284 200 / 200 Balance -1264 / -1374 -500 / -1874 140 / 140 Weight last 48 hrs Weight 75.841 kg Weight 75.5 kg Weight 75.841 kg Weight 77 kg Weight 77.337 kg Weight 78.471 kg Physical Exam 2 Narrative: awake, alert , no distress No JVD PEERLA S1S2 RRR Lungs with [place] crackles Abd soft , non tender Ext no edema no skin rash Data 09/06/25 03:57 09/06/25 03:57 Micro: Microbiology 09/04/25 20:03 Urine Culture - Final Urine,Voided 09/04/25 15:38 Blood Culture - Preliminary Blood NEGATIVE TO DATE 09/04/25 15:38 Blood Culture - Preliminary Blood NEGATIVE TO DATE A&P Assessment and plan 1. End stage renal disease on dialysis: Plan: 1. End-stage renal disease: Recently initiated on hemodialysis, patient now is volume overloaded but also is hypotensive. s/p hd x 2 sessions next hd tomorrow 2. Hypotension, rule out sepsis, monitor closely, IV albumin with HD 3. Severe anemia, acute on chronic, s/p 2 units PRBCs, s/p epogen 4. Hypokalemia, will run on a 3K dialysate 5. Elevated troponin, likely demand ischemia, management per primary team 6. h/oAVR Today's evaluation. Time spent 40 minutes. PDMP PDMP Reviewed: Not Reviewed Attestations 2 Medical Necessity Statement*: per medicine Coding Level of Care Code Acute Code for Chg Fwd Diagnoses End stage renal disease on dialysis N18.6; Z99.2
[2025-09-06] MEDS: ciprofloxacin-dexameth Otic Susp 7.5 mL Btl 4 DROP EAR-BOTH ×2 (11:27→17:09)
--- NOTE | 2025-09-06 13:51 | P.PN_ITS ---
Subjective 2 Subjective: patient was seen this morning, he denies any chest pain, has edema, and anasarca, does report shortness of breath, no bloody or black stool, no chest pain Vitals/I&O/Wt Last Vital Signs Temp 98.3 F 09/06/25 13:08 Pulse 96 09/06/25 13:08 Resp 17 09/06/25 13:08 BP 108/55 09/06/25 12:30 Pulse Ox 91 09/06/25 13:08 O2 Del Method Nasal Cannula 09/06/25 08:36 O2 Flow Rate 6 09/06/25 08:36 09/05/25 09/06/25 09/06/25 22:59 06:59 14:59 Intake Total 1170 / 1410 1070 / 1070 Output Total 2434 / 2784 500 / 3284 300 / 300 Balance -1264 / -1374 -500 / -1874 770 / 770 Weight last 48 hrs Weight 75.841 kg Weight 75.5 kg Weight 75.841 kg Weight 77 kg Weight 77.337 kg Physical Exam 2 Const: COMMON NORMALS: no acute distress and patient oriented x3 Resp: COMMON NORMALS: normal respiratory effort, No retractions and No use of accessory muscles AUSCULTATION: crackles Cardio: COMMON NORMALS: regular rate, regular rhythm, S1 normal heart sound present and S2 normal heart sound present RATE: regular rate RHYTHM: r egular rhythm HEART SOUNDS: S1 normal heart sound present and S2 normal heart sound present GI: COMMON NORMALS: Normal to inspection, nondistended, normoactive bowel sounds present and non-tender Extremity: NARRATIVE EXTREMITY EXAM: 1+ edema Neuro: COMMON NORMALS: patient oriented x3 Psych: COMMON NORMALS: mental status grossly normal Data 09/06/25 03:57 09/06/25 03:57 Micro: Microbiology 09/04/25 20:03 Wound Culture - Preliminary Foot Left 09/04/25 20:03 Urine Culture - Final Urine,Voided 09/04/25 15:38 Blood Culture - Preliminary Blood NEGATIVE TO DATE 09/04/25 15:38 Blood Culture - Preliminary Blood NEGATIVE TO DATE A&P Assessment and plan 1. Chest pain: 2. Peripheral arterial disease: 3. Pulmonary emboli: 4. Type 2 diabetes mellitus with foot ulcer: 5. GI bleed: 6. Acute kidney injury superimposed on CKD: 7. End stage renal disease on dialysis: 8. Symptomatic anemia: 9. NSTEMI (non-ST elevated myocardial infarction): 10. Shock: Plan: Chest pain - With NSTEMI - With acute on chronic anemia, concern for GI bleed, thrombocytopenia, elevated INR 1.9 -Type I versus type II NSTEMI Plan -Patient is on Eliquis, will hold for now, given patient's complications as above, discussed the risks and benefits of anticoagulant therapy, he voiced understanding, all questions answered, agreed to hold anticoagulant therapy for now -Certainly this is a difficult situation, but if he does develop recurrent chest pain, or EKG changes then we might have to consider trial of anticoagulant therapy -Aspirin, statin -Cardiac echo CONCLUSIONS 1. Normal left ventricular cavity size and systolic function, EF 73%. 2. Mild concentric left ventricular hyypertrophy. 3. Mild right ventricular enlargement and mild right ventricular -Serial Ekg, start troponins, telemetry monitoring - Stress testing based on clinical progress Thrombocytopenia, haptoglobin 220, LDH 255, sed rate 11, peripheral smear Acute hypoxic respiratory failure - Fluid overload, bilateral effusions, pulmonary edema - Bumex 1 mg IV 8 hours with metolazone, - Nephrology consulted for dialysis Acute on chronic anemia, concerns for slow GI bleed -Hemoglobin 7.8, INR 1.9, platelet count, 61,000 -EGD July 2025 showed moderate gastritis of the abdomen, several small erosions and a segment of bleeding, biopsies taken Endo Clip was placed in one of the biopsy sites as could oozing was noted -Colonoscopy status post polypectomy Plan -CT chest abdomen pelvis with IV contrast no acute bleed ? Receiving 3 units of PRBC, hemoglobin 7.8 -Will transfuse 1 unit PRBC today -Monitor hemodynamics closely -Will consider iron infusions, IR iron studies -Will consider consulting general surgery, for repeat EGD based on clinical progress -Protonix, Carafate - Consulted cardiology, for IVC filter placement History of pulmonary embolism - On Eliquis, currently on hold due to acute anemia -Recurrent anemia requiring blood transfusions - Cardiology consulted for IVC filter placement Advanced arterial vascular disease in the abdomen CT/CT abdomen pelvis w con* [id number] IMPRESSION: 4. Advanced arterial vascular disease is present throughout the abdomen and pelvis as described. No infrarenal abdominal aortic aneurysm. 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 Superior mesenteric artery remains patent. 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 Plan - Aspirin, statin - Avoid hypotension - Will need to follow-up with vascular surgery as outpatient Shock -Monitor in ICU, MAP in 65 -Patient might require Levophed - Likely multifactorial - With acute on chronic anemia - Possible sepsis? - Continue home vancomycin and Rocephin Sepsis? - Blood cultures - Urine cultures - UA - Cultures from diabetic foot infection Diabetic foot infection - Left foot - Wound care - Podiatry consulted - Vancomycin, Rocephin End-stage renal disease on dialysis -Nephrology consulted -Plans on dialysis today Weakness, fatigue, likely multifactorial plan for today IV diureses, transfuse 1 unit of bleed PDMP PDMP Reviewed: Not Reviewed Attestations 2 Medical Necessity Statement*: patient requires hospitalization for respiratory failure, fluid overload, anemia Diagnoses Chest pain R07.9 Peripheral arterial disease I73.9 Pulmonary emboli I26.99 Type 2 diabetes mellitus with foot ulcer E11.621; L97.509 GI bleed K92.2 Acute kidney injury superimposed on CKD N17.9; N18.9 End stage renal disease on dialysis N18.6; Z99.2 Symptomatic anemia D64.9 NSTEMI (non-ST elevated myocardial infarction) I21.4 Shock R57.9
[2025-09-06 14:31] LABS: Hematocrit 27.2 % (37-53); Hemoglobin 8.80 g/dL (11.27-16.99); Mean Corpuscular HGB Conc 32.4 g/dL (30-55); Mean Corpuscular Hemoglobin 28.9 pg (27-33); Mean Corpuscular Volume 89.2 fl (82-101); Nucleated Red Blood Cells % 0 %; Platelet Count 51 10^3/cmm (157-399); Red Blood Count 3.05 10^6/uL (3.85-5.65); White Blood Count 10.65 10^3/uL (3.29-11.43)
[2025-09-06] MEDS: cefTRIAXone 1,000 mg SDV 1000 MG IVP (17:08)
[2025-09-06] MEDS: RIOCIGUAT 2.5 MG 2.5 EACH PO (18:16)
[2025-09-06] MEDS: MACITENTAN 10 MG 10 EACH PO (18:17)
[2025-09-07] VITALS (56 sets, daily range): BP systolic 82–142; BP diastolic 38–70; PULSE 11–117; RESP 15–44; TEMP 36.6–37.1; O2SAT 83–99
[2025-09-07] MEDS: bumetanide 0.25 mg/mL SDV 4 mL 1 MG IVP ×3 (01:23→17:54)
--- NOTE | 2025-09-07 02:15 | PC.NURSE ---
Low BP: Patient had multiple low BPs, Dr. Gonzalez gave verbal orders for 5mg PO midodrine TID.
[2025-09-07 04:03] LABS: Hematocrit 25.4 % (37-53); Hemoglobin 8.10 g/dL (11.27-16.99); Mean Corpuscular HGB Conc 31.9 g/dL (30-55); Mean Corpuscular Hemoglobin 28.3 pg (27-33); Mean Corpuscular Volume 88.8 fl (82-101); Nucleated Red Blood Cells % 0 %; Platelet Count 54 10^3/cmm (157-399); Red Blood Count 2.86 10^6/uL (3.85-5.65); White Blood Count 9.58 10^3/uL (3.29-11.43)
[2025-09-07 04:16] LABS: Lactate (Lactic Acid level) 1.1 mmol/L (0.5-2.2); Magnesium 1.5 mg/dL (1.7-2.3)
[2025-09-07 04:29] LABS: NT Pro B Type Natriuretic Pept 13594 pg/mL (0-125); Procalcitonin 0.57 ng/mL (0-0.5)
[2025-09-07 04:40] LABS: Blood Urea Nitrogen 55 mg/dL (8-23); Calcium 7.6 mg/dL (8.5-10.5); Carbon Dioxide 25 mmol/L (22-29); Chloride 97 mmol/L (98-107); Creatinine Clr Calc Pharmacy 27.4402; Glucose 287 mg/dL (65-115); Osmolality Calculated 304 mOsm/kg (285-295); Sodium 134 mmol/L (136-145)
[2025-09-07 04:49] LABS: Anion Gap 15.8 (5-19); Potassium 3.8 mmol/L (3.5-5.1)
[2025-09-07] MEDS: sucralfate 1 gm/10 mL Oral Liq UDC PO ×3 (05:34→17:43)
[2025-09-07] MEDS: ciprofloxacin-dexameth Otic Susp 7.5 mL Btl 4 DROP EAR-BOTH ×2 (05:34→17:44)
[2025-09-07] MEDS: MACITENTAN 10 MG 10 EACH PO (05:45)
[2025-09-07] MEDS: RIOCIGUAT 2.5 MG 2.5 EACH PO ×2 (05:46→13:14)
--- NOTE | 2025-09-07 09:47 | XRR_ITS ---
PROCEDURE INFORMATION: Exam: XR Chest Exam date and time: 09/07/2025 10:18 AM Age: 70 years old Clinical indication: Shortness of breath; Prior surgery; Surgery date: 6+ months; Surgery type: Tavr dialysis cath; Additional info: Increase o2 demand TECHNIQUE: Imaging protocol: Radiologic exam of the chest. Views: 1 view. COMPARISON: CR (CHEST, ) 09/05/2025 08:48 AM FINDINGS: Tubes, catheters and devices: Dual-lumen right IJ central line tip over the SVC. Right upper extremity PICC line tip near the cavoatrial junction. Lungs: Lower lung volumes with probable right pleural effusion. Pleural spaces: See Lungs finding. Heart/Mediastinum: Unremarkable. No cardiomegaly. Vasculature: Atherosclerotic vascular disease. Radiopaque stent over the cardiac silhouette. Bones/joints: Degenerative changes of the spine. XR/XR chest 1V portable [id number] IMPRESSION: Lower lung volumes with probable right pleural effusion.
[2025-09-07 10:31] LABS: ABG PCO2 39.3 mmHg (35-45); ABG PH Result 7.47 (7.35-7.45); Alveolar-Arterial Oxygen Gradi 5.5 mmHg (5-10); Arterial Blood Gas Hematocrit 29.4 % (42-52); Blood Gas Allen Test Pos; Blood Gas LPM 11.0 %; Blood Gas Operator Identificat WALCI; Blood Gas Sample Site Brachial, left; Blood Gas Sample Type Arterial; Carboxyhemoglobin 1.4 %THgb (0.4-20.1); Glucose Level-ABG 269.0 mg/dL (70-115); HCO3 ABG 28.2 mmol/L (22-26); Ionized Calcium Level - ABG 1.2 mmol/L (1.1-1.4); Methemoglobin 1.1 % (0.4-1.5); Oxygen Saturation ABG 92.1; PO2 ABG 58.6 mmHg (80.0-100.0); Potassium Level - ABG 3.5 mmol/L (3.5-5.0); Sodium Level - ABG 137.0 mmol/L (131-143)
--- NOTE | 2025-09-07 14:27 | P.PN_ITS ---
Subjective 2 Subjective: c/o sob Medications: Reviewed: Yes Vitals/I&O/Wt Last Vital Signs Temp 98.4 F 09/07/25 05:10 Pulse 114 H 09/07/25 12:30 Resp 21 H 09/07/25 12:30 BP 123/62 09/07/25 12:30 Pulse Ox 97 09/07/25 12:30 O2 Del Method High Flow Nasal Cannula 09/07/25 11:41 O2 Flow Rate 9 09/07/25 11:41 09/06/25 09/07/25 09/07/25 22:59 06:59 14:59 Intake Total 200 / 1270 240 / 240 Output Total 1575 / 1875 600 / 2475 500 / 500 Balance -1375 / -605 -600 / -1205 -260 / -260 Weight last 48 hrs Weight 75.841 kg Weight 75.5 kg Physical Exam 2 Narrative: awake, alert , no distress No JVD PEERLA S1S2 RRR Lungs with [place] crackles Abd soft , non tender Ext no edema no skin rash Data 09/07/25 03:34 09/07/25 03:34 Micro: Microbiology 09/04/25 20:03 Wound Culture - Preliminary Foot Left 09/06/25 18:00 Occult Blood (FIT) - Final Stool Routine Collection A&P Assessment and plan 1. End stage renal disease on dialysis: Plan: 1. End-stage renal disease: Recently initiated on hemodialysis, patient now is volume overloaded but also is hypotensive. s/p hd x 2 sessions next hd tomorrow 2. Hypotension, rule out sepsis, monitor closely, IV albumin with HD 3. Severe anemia, acute on chronic, s/p 2 units PRBCs, s/p epogen 4. Hypokalemia, will run on a 3K dialysate 5. Elevated troponin, likely demand ischemia, management per primary team 6. h/oTAVR 7. H/O PE - anticoagulation held due to reccurrent anemia , plan for IVC filter placement Today's evaluation. Time spent 40 minutes. PDMP PDMP Reviewed: Not Reviewed Attestations 2 Medical Necessity Statement*: per rodneynv Coding Level of Care Code Acute Code for Chg Fwd Diagnoses End stage renal disease on dialysis N18.6; Z99.2
--- NOTE | 2025-09-07 16:13 | PC.OT ---
OT evaluation on hold due to patient being in dialysis per PT; will try again at later time.
[2025-09-07] MEDS: norepinephrine 4 MG/250 ML BAG 7.5 MG IV (16:41)
--- NOTE | 2025-09-07 18:32 | P.PN_ITS ---
Subjective 2 Subjective: - Patient was examined this morning - He reports that earlier this morning jakub medina had 1 episode of hemoptysis but has not had any episodes since this morning - No chest pain, he is on 10 L but denie s feeling short of breath - He is off blood thinners due to his ac reinier anemia, venous ultrasound was negative for DVT - Discussed his acute hypoxic respirator y failure he does report a cough, discussed adding on meropenem - He does appear to be fluid overloaded, discussed increasing his Bumex, adding metolazone plans on dialysis today, CT angio of the chest - Patient was reexamined this afternoon receiving dialysis, he is resting more comfortably he is on 9 L, has a cough, no hemoptysis, no lightheadedness, dizziness, no chest pain - Family members at bedside - I again had a detailed discussion with Guy with his underlying complicated medical problems with his core morbidities - For his acute hypoxic respiratory fail ure, likely fluid overload, receiving dialysis, and diuresis - He does have pulmonary embolism for wh ich she was on anticoagulant therapy, anticoagulant therapy and fortunately has been held due to his acute anemia requiring blood transfusions, and hemodynamic instability - There is been plans on IVC filter plac ement - However given his acute hypoxic respir atory failure today, I canceled IVC filter placement has a high risk of morbidity and mortality with IVC filter placement today and anesthesia that he would be receiving, and high risk of intubation and difficulty in extubating - What I would recommend is his respirat ory status improves before IVC filter placement - The difficulty is is in the meantime I cannot anticoagulate him given his history of PE, dialysis complaints of hemoptysis now with his anemia - Will plan on medically managing him cl osely - Also his right dialysis fistula has be en pulled and uncuffed, and will need to be replaced due to risk of infection - Discussed once his respiratory status improves and we can have IVC filter placed -Discussed the possibility of also EGD h owever given his respiratory status, his hypoxia, he has a high risk of morbidity mortality during EGD, high risk of respiratory failure high risk of intubation would recommend for his respiratory status to be improved, for him to have IVC filter placement, once stable certainly can proceed with EGD as his Hemoccult stools are positive - He will likely need his dialysis fistu la replaced - Guy understands the complexity of th e situation given his underlying medical issues, with his severe pulmonary hypertension, GI bleed, PE, deconditioning, discussed risk of benefits of all options, he voiced understanding, all questions answered, agreed to proceed Vitals/I&O/Wt Last Vital Signs Temp 98.4 F 09/07/25 05:10 Pulse 98 09/07/25 16:00 Resp 20 H 09/07/25 16:00 BP 113/62 09/07/25 16:00 Pulse Ox 99 09/07/25 16:00 O2 Del Method High Flow Nasal Cannula 09/07/25 15:53 O2 Flow Rate 3 09/07/25 15:54 09/07/25 09/07/25 09/07/25 06:59 14:59 22:59 Intake Total 240 / 240 573 / 813 Output Total 600 / 2475 500 / 500 Balance -600 / -1205 -260 / -260 573 / 313 Weight last 48 hrs Weight 75.841 kg Weight 75.5 kg Physical Exam 2 Const: COMMON NORMALS: no acute distress ORIENTATION/CONSCIOUSNESS: Yes awake, Yes oriented to person and Yes oriented to place; not oriented to time Eye: COMMON NORMALS: Equal, round and reactive pupils present PUPIL: Yes Equal, round and reactive pupils present Chest: OTHER: Right chest dialysis catheter in place Resp: COMMON NORMALS: normal respiratory effort, No retractions and No use of accessory muscles OTHER: Crackles and wheezing in all lung perera Cardio: COMMON NORMALS: regular rate, regular rhythm, S1 normal heart sound present and S2 normal heart sound present RATE: regular rate RHYTHM: r egular rhythm HEART SOUNDS: S1 normal heart sound present and S2 normal heart sound present GI: COMMON NORMALS: Normal to inspection, nondistended, normoactive bowel sounds present and non-tender Extremity: NARRATIVE EXTREMITY EXAM: 1+ edema Neuro: SENSORIUM/ORIENTATION: Yes oriented to person, Yes oriented to place and No oriented to time Data 09/07/25 03:34 09/07/25 03:34 Micro: Microbiology 09/04/25 20:03 Wound Culture - Preliminary Foot Left 09/06/25 18:00 Occult Blood (FIT) - Final Stool Routine Collection A&P Assessment and plan 1. Chest pain: 2. Peripheral arterial disease: 3. Pulmonary emboli: 4. Type 2 diabetes mellitus with foot ulcer: 5. GI bleed: 6. Acute kidney injury superimposed on CKD: 7. End stage renal disease on dialysis: 8. Symptomatic anemia: 9. NSTEMI (non-ST elevated myocardial infarction): 10. Shock: Plan: Chest pain - With NSTEMI - With acute on chronic anemia, concern for GI bleed, thrombocytopenia, elevated INR -Type I versus type II NSTEMI Plan -Patient is on Eliquis, will hold for now, given patient's complications as above, discussed the risks and benefits of anticoagulant therapy, he voiced understanding, all questions answered, agreed to hold anticoagulant therapy for now -Certainly this is a difficult situation, but if he does develop recurrent chest pain, or EKG changes then we might have to consider trial of anticoagulant therapy -Aspirin, statin -Cardiac echo CONCLUSIONS 1. Normal left ventricular cavity size and systolic function, EF 73%. 2. Mild concentric left ventricular hyypertrophy. 3. Mild right ventricular enlargement and mild right ventricular -Serial Ekg, start troponins, telemetry monitoring - Stress testing based on clinical progress Thrombocytopenia, haptoglobin 220, LDH 255, sed rate 11, peripheral smear Acute hypoxic respiratory failure, requiring 9 L - Fluid overload, bilateral effusions, pulmonary edema - Bumex 1 mg IV 8 hours with metolazone, - Nephrology consulted for dialysis - History of pulmonary embolism, anticoagulant therapy currently on hold due to acute anemia, with plans of IVC filter placement delayed given acute respiratory failure - Will have to hold off on anticoagulant therapy due to acute persistent anemia, discussed risks and benefits with patient, he voiced understanding, all questions answered, agreed to proceed - Solu-Medrol 40 mg IV every 8 hours - Vancomycin - Meropenem - CT angio of the chest Acute on chronic anemia, concerns for slow GI bleed, he is occult positive stools -Hemoglobin 8.1, INR 1.9, platelet count, 54,000 -EGD July 2025 showed moderate gastritis of the abdomen, several small erosions and a segment of bleeding, biopsies taken Endo Clip was placed in one of the biopsy sites as could oozing was noted -Colonoscopy status post polypectomy Plan -CT chest abdomen pelvis with IV contrast no acute bleed ? Status post 4 units PRBC - Monitor hemoglobin -Monitor hemodynamics closely -Will consider iron infusions, IR iron studies -Will consider consulting general surgery, for repeat EGD based on clinical progress, but given acute hypoxic respiratory failure, is not the best candidate given risk of morbidity and mortality, less urgently required -Protonix, Carafate - Consulted cardiology, for IVC filter placement History of pulmonary embolism - On Eliquis, currently on hold due to acute anemia -Recurrent anemia requiring blood transfusions - Cardiology consulted for IVC filter placement Advanced arterial vascular disease in the abdomen CT/CT abdomen pelvis w con* [id number] IMPRESSION: 4. Advanced arterial vascular disease is present throughout the abdomen and pelvis as described. No infrarenal abdominal aortic aneurysm. 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 Superior mesenteric artery remains patent. 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 Plan - Aspirin, statin - Avoid hypotension - Will need to follow-up with vascular surgery as outpatient Shock -Monitor in ICU, MAP in 65 -Patient might require Levophed - Likely multifactorial - With acute on chronic anemia - Possible sepsis? - Continue home vancomycin and Rocephin Sepsis? - Blood cultures so far no growth - UA - Cultures from diabetic foot infection Diabetic foot infection - Left foot - Wound care - Podiatry consulted - Vancomycin, Rocephin End-stage renal disease on dialysis -Nephrology consulted -Plans on dialysis today Weakness, fatigue, likely multifactorial plan for today IV diureses, dialysis, IV antibiotics PDMP PDMP Reviewed: Not Reviewed Attestations 2 Medical Necessity Statement*: Patient requires hospitalization for acute hypoxic respiratory failure, acute anemia, thrombocytopenia, acute respiratory failure, shock, NSTEMI Diagnoses Chest pain R07.9 Peripheral arterial disease I73.9 Pulmonary emboli I26.99 Type 2 diabetes mellitus with foot ulcer E11.621; L97.509 GI bleed K92.2 Acute kidney injury superimposed on CKD N17.9; N18.9 End stage renal disease on dialysis N18.6; Z99.2 Symptomatic anemia D64.9 NSTEMI (non-ST elevated myocardial infarction) I21.4 Shock R57.9
[2025-09-07] MEDS: methylPREDNISolone sod succ 40 mg/mL INJ IVP (19:59)
[2025-09-08] VITALS (52 sets, daily range): BP systolic 76–132; BP diastolic 34–76; PULSE 81–103; RESP 14–39; O2SAT 81–100
[2025-09-08] MEDS: sucralfate 1 gm/10 mL Oral Liq UDC PO ×4 (00:15→16:57)
[2025-09-08] MEDS: vancomycin 500 MG in sodium chloride 0.9% (plus) 100 ML 200 MG IV (00:15)
[2025-09-08] MEDS: RIOCIGUAT 2.5 MG 2.5 EACH PO ×4 (00:17→20:02)
[2025-09-08] MEDS: bumetanide 0.25 mg/mL SDV 4 mL 1 MG IVP ×4 (00:57→21:59)
[2025-09-08 04:03] LABS: Hematocrit 27.2 % (37-53); Hemoglobin 8.70 g/dL (11.27-16.99); Mean Corpuscular HGB Conc 32.0 g/dL (30-55); Mean Corpuscular Hemoglobin 28.3 pg (27-33); Mean Corpuscular Volume 88.6 fl (82-101); Nucleated Red Blood Cells % 0 %; Platelet Count 59 10^3/cmm (157-399); Red Blood Count 3.07 10^6/uL (3.85-5.65); White Blood Count 9.73 10^3/uL (3.29-11.43)
[2025-09-08 04:30] LABS: Alanine Aminotransferase 14 U/L (0-41); Albumin Level 3.2 g/dL (3.5-5.2); Alkaline Phosphatase 289 U/L (40-130); Aspartate Amino Transferase 28 U/L (0-40); Blood Urea Nitrogen 39 mg/dL (8-23); Calcium 8.6 mg/dL (8.5-10.5); Carbon Dioxide 25 mmol/L (22-29); Chloride 97 mmol/L (98-107); Creatinine Clr Calc Pharmacy 34.0315; Globulin 2.3 g/dL (1.3-4.6); Glucose 409 mg/dL (65-115); Magnesium 1.6 mg/dL (1.7-2.3); Osmolality Calculated 309 mOsm/kg (285-295); Sodium 136 mmol/L (136-145); Total Protein 5.5 g/dL (6.6-8.7)
[2025-09-08 04:31] LABS: Anion Gap 18.6 (5-19); Potassium 4.6 mmol/L (3.5-5.1)
[2025-09-08 04:33] LABS: NT Pro B Type Natriuretic Pept 12023 pg/mL (0-125); Procalcitonin 0.71 ng/mL (0-0.5)
[2025-09-08] MEDS: MACITENTAN 10 MG 10 EACH PO (04:37)
[2025-09-08] MEDS: methylPREDNISolone sod succ 40 mg/mL INJ IVP ×3 (04:37→20:02)
[2025-09-08] MEDS: ciprofloxacin-dexameth Otic Susp 7.5 mL Btl 4 DROP EAR-BOTH ×2 (04:37→16:56)
[2025-09-08] MEDS: iohexol 350 mg/mL 500 mL Btl (per mL) IV (05:00)
[2025-09-08 05:28] LABS: ABG PCO2 37.8 mmHg (35-45); ABG PH Result 7.46 (7.35-7.45); Arterial Blood Gas Hematocrit 27.5 % (42-52); Blood Gas LPM 10.0 %; Blood Gas Operator Identificat SAM; Blood Gas Sample Site Brachial, right; Blood Gas Sample Type Arterial; HCO3 ABG 26.8 mmol/L (22-26); PO2 ABG 54.1 mmHg (80.0-100.0)
--- NOTE | 2025-09-08 07:00 | XRR_ITS ---
PROCEDURE INFORMATION: Exam: XR Chest Exam date and time: 09/08/2025 7:04 AM Age: 70 years old Clinical indication: Shortness of breath; Additional info: SOB TECHNIQUE: Imaging protocol: Radiologic exam of the chest. Views: 1 view. COMPARISON: CT angio chest PE protcl [id number] 09/08/2025 4:48 AM, chest x-ray 08/2025 FINDINGS: Tubes, catheters and devices: PICC line is seen on the right with its tip overlying the SVC. Dialysis catheters are seen on the right with their tips overlying the right jugular vein/SVC junction. Lungs: There is diffuse infiltrate involving the right lung. There may be mild vascular congestive changes on the left although no focal consolidation is noted on the left. Pleural spaces: Suspect layering right pleural effusion. No pneumothorax is identified. Heart/Mediastinum: The heart is slightly enlarged. There is calcified plaque involving the aorta. Bones/joints: Unremarkable. XR/XR chest 1V portable [id number] IMPRESSION: 1. Infiltrate involving the right lung with probable small right pleural effusion worse on today's exam when compared to prior chest x-ray.
--- NOTE | 2025-09-08 07:50 | PC.NURSE ---
Sliding scale insulin changed to high dose regimen, per Dr. Ramirez orders. orders placed.
--- NOTE | 2025-09-08 07:55 | US_ITS ---
WS: [id number] Ultrasound chest, limited. HISTORY: Evaluate for thoracentesis. Initial imaging through the RIGHT thorax earlier in the day demonstrated a small to moderate effusion. At the time the procedure was to be performed there is atelectatic lung extending into the pleural effusion. The effusion appears smaller in size as compared to earlier the same day. There is atelectatic lung extending in and out of the effusion during breathing. At this time no thoracentesis will be performed. US/US chest [id number] IMPRESSION: 1. No thoracentesis to be performed due to the small effusion and atelectatic l evelyn.
--- NOTE | 2025-09-08 08:00 | CTR_ITS ---
PROCEDURE INFORMATION: Exam: CTA Chest With Contrast Exam date and time: 09/08/2025 4:48 AM Age: 70 years old Clinical indication: Shortness of breath; Additional info: SOB TECHNIQUE: Imaging protocol: Computed tomographic angiography of the chest with contrast. Exam focused on the arteries. 3D rendering (Not supervised by radiologist): MIP and/or 3D reconstructed images were created by the technologist. Radiation optimization: All CT scans at this facility use at least one of these dose optimization techniques: automated exposure control; mA and/or kV adjustment per patient size (includes targeted exams where dose is matched to clinical indication); or iterative reconstruction. Contrast material: OMNI 350; Contrast volume: 100 ml; Contrast route: INTRAVENOUS (IV); COMPARISON: CT angio chest PE protcl [id number] 08/24/2025 4:30 AM RADIATION DOSE METRICS: Total DLP (mGy-cm): 381.15 FINDINGS: There is a large bore central venous catheter which has been applied to the right internal jugular vein extending into the superior vena cava. No pneumothorax. There is also a right upper extremity PICC line which extends into the superior vena cava. Pulmonary arteries: There are some stable filling defects in the 2nd and 3rd order branches of the left lower lobe pulmonary arteries. Aorta: The left common carotid artery appears to be occluded beyond its origin. Moderate calcific plaque associated with the thoracic aorta as well as branch vessels is present. Lungs: There is a large mass in the medial aspect of the right upper lobe measuring approximately 6 cm with mediastinal extension representing a likely lung malignancy. Similar distribution and appearance is noted on interval comparison. Pleural spaces: Bilateral pleural effusions are noted larger on the right side. The right-sided pleural effusion has increased on interval comparison. The left-sided pleural effusion is also larger in comparison to the prior study. Heart: Extensive coronary artery calcification is present. The RV/LV ratio is 1.2. TAVR. No cardiomegaly. No pericardial effusion. Lymph nodes: Interval stability with respect to the right hilar and mediastinal adenopathy is noted. Bones/joints: There is a stable compression deformity at T11. Spondylosis. No acute fracture. Soft tissues: Unremarkable. There is no evidence of metastatic disease associated with the adrenal glands. The liver is somewhat enlarged and has a nodular contour. Cholelithiasis. CT/CT angio chest PE protcl [id number] IMPRESSION: 1. There are stable filling defects in the 2nd and 3rd order branches of the left lower lobe pulmonary artery. Relatively low-density associated with the these filling defects is present and there is calcific plaque associated with the right and left main pulmonary arteries extending into the proximal branches. The filling defects likely represent evidence of chronic emboli. No additional new emboli are identified. The RV/LV ratio is 1.2 which is stable on interval comparison. 2. 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 No significant change is noted 3. There has been interval increase in the size of the moderate-sized right-sided pleural effusion and mild increase in the small left-sided pleural effusion is also noted. Compressive atelectasis in the right lower lobe secondary to the right-sided pleural effusion is present. 3. 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 This finding was also present on the prior CT examination. 4. Extensive coronary artery calcification is present. 5. Findings associated with the liver is suggestive of cirrhosis. 6. Cholelithiasis.
[2025-09-08] MEDS: insulin glargine 100 units/1 mL 10 UNIT SUBCUT (08:49)
--- NOTE | 2025-09-08 09:22 | P.PN_ITS ---
<Statement entered by Satnam Espinoza MD - 09/09/25 08:24> Patient was evaluated and cared for in conjunction with an advanced practice practitioner. I personally examined the patient and reviewed the chart and all pertinent data including imaging, telemetry, and laboratory results. I discussed the patient in detail with the advanced practice practitioner. Please see their note for complete H&P testing result and agreed upon plan of care for the patient. Patient is sitting by bedside says he is feeling little better today however still not able to lay flat GENERAL: Patient is alert, awake and oriented x3. HEART: Regular S1 and S2. No murmur, rub or gallop. LUNGS: Decreased breath sounds bilaterally. CENTRAL NERVOUS SYSTEM: Grossly nonfocal. Assessment and plan Persistent anemia and inability to take anticoagulation with pulmonary embolism History of aortic valve replacement status post TAVR Elevated cardiac markers Congestive heart failure In the presence of persistent anemia possible bleed and inability to take anticoagulation for pulmonary embolism patient is at risk for recurrent pulmonary embolism therefore it was recommended that patient should undergo IVC filter. Plan for for retrievable IVC filter. Continue diuretics Subjective 2 Subjective: Sitting up on the side of the bed this morning, requiring 10L oxygen, unable to lay flat for IVC filter procedure today. Continue IV Bumex. BP soft at times, continue midodrine. He is not anticoagulated, on aspirin. He is -2599mL for the last 24 hours, -7678 cumulative. Vitals/I&O/Wt Last Vital Signs Temp 97.9 F 09/07/25 19:51 Pulse 92 09/08/25 08:00 Resp 14 09/08/25 08:00 BP 116/58 09/08/25 04:00 Pulse Ox 93 09/08/25 08:00 O2 Del Method High Flow Nasal Cannula 09/08/25 08:00 O2 Flow Rate 8 09/07/25 21:10 09/07/25 09/08/25 09/08/25 22:59 06:59 14:59 Intake Total 1437.75 / 1686.00 8.25 / 1686.00 100 / 100 Output Total 3785 / 4885 600 / 4885 Balance -2347.25 / -3199.00 -591.75 / -3199.00 100 / 100 Weight last 48 hrs Weight 154 lb 5.177 oz Weight 156 lb 8.451 oz Physical Exam 2 Const: COMMON NORMALS: no acute distress and patient oriented x3 GENERAL APPEARANCE: cooperative and comfortable ORIENTATION/CONSCIOUSNESS: Yes awake, Yes oriented to person, Yes oriented to place and Yes oriented to time Chest: COMMONS NORMALS: normal inspection of the chest and normal palpation of entire chest wall CHEST: Yes Symmetrical chest wall rise Resp: COMMON NORMALS: normal respiratory effort, No retractions and No use of accessory muscles EFFORT & INSPECTION: Yes symmetric chest movement A USCULTATION: crackles Laterality: bilateral and posterior Cardio: COMMON NORMALS: regular rate, regular rhythm, S1 normal heart sound present, S2 normal heart sound present, No gallops present (Cardio), No clicks present (Cardio), No murmurs present (Cardio) and No rub (Cardio) RATE: r egular rate RHYTHM: regular rhythm HEART SOUNDS: S1 normal heart sound present and S2 normal heart sound present PERIPHERAL PULSES: radial pulses present Extremity: COMMON NORMALS: no pedal edema Neuro: COMMON NORMALS: patient oriented x3 and moves all extremities S ENSORIUM/ORIENTATION: Yes oriented to person, Yes oriented to place and Yes oriented to time Data 09/08/25 03:50 09/08/25 03:50 Micro: Microbiology 09/04/25 20:03 Wound Culture - Preliminary Foot Left A&P Assessment and plan 1. Chest pain: 2. S/P TAVR (transcatheter aortic valve replacement): 3. Pulmonary emboli: 4. Troponin level elevated: Plan: Continue diuresis with IV Bumex. Hemoglobin improving after transfusions. Will plan for IVC filter placement tomorrow. NPO after midnight tonight. PDMP PDMP Reviewed: Not Reviewed Attestations 2 Medical Necessity Statement*: ivc filter tomorrow Coding Level of Care Code Acute Code for g Fwd Diagnoses Chest pain R07.9 S/P TAVR (transcatheter aortic valve replacement) Z95.2 Pulmonary emboli I26.99 Troponin level elevated R79.89
--- NOTE | 2025-09-08 12:41 | PM.CONSULT ---
Providers/Reason For Consult Consulting Physician/Specialty*: Dr Alfred Lezama Reason for Consult*: lung mass and sepsis Attending Physician: Cruz Fang MD Primary Care Provider: Patrick Nick MD History of Present Illness History of Present Illness kingston Wiseman is a 70 year old male with past medical history of pulmonary hypertension, status post TAVR, end-stage renal disease on dialysis, history of PE on Eliquis, COPD, lung mass with mediastinal adenopathy, chronic congestive heart failure initially on 09/04/2025 with weakness fatigue and chest pain found to have non-STEMI, anemia, pulmonary emboli 2nd and 3rd branches of lower lobes, lower extremity DVT, probable A-fib, recent echo showed mild RV hypokinesis with increased troponins, probable sepsis with septic shock. I was consulted for further management Patient had a recent echocardiogram that showed RV dysfunction but he is also anemic requiring transfusion but not for the last 2 days. Anticoagulation has been held. Cardiology placing IVC filter however that was canceled due to his hypoxemia. Currently on 6 L nasal cannula He has also been getting intermittent dialysis by nephrology CT chest done showed 09/04/2025-showing PEs also having a large mass in the medial aspect of the right upper lobe 6 cm with mediastinal extension, lung malignancy. Bilateral pleural effusions right more than left. Hilar and mediastinal lymphadenopathy noted as well. Intermittently having some hemoptysis episodes. On antibiotics meropenem. He is on 6 L nasal cannula. Pending thoracentesis. per RN General: alert, NAD obese HEENT: conj clear, EOMI, PERRL Neck: supple Pulmonary: CTAB. Cardiovascular: rrr, nl s1s2, no mrg Abdomen: soft, nt, nd, no r/g, Extremities: pulses +, no edema Skin: no rash Neurologic: grossly intact Agree with above exam Medications/Allergies Home Medications ?Medication ?Instructions ?Recorded ?Confirmed ?Last Taken ?Type Cam boot to left #1 ea 05/15/23 09/04/25 08/19/25 Rx bumetanide 1 mg tablet 2 mg PO DAILY 11/27/23 09/04/25 09/04/25 08:00 History levothyroxine 112 mcg tablet 112 mcg PO DAILY 11/27/23 09/04/25 09/04/25 07:00 History riociguat 2.5 mg tablet (Adempas) 2.5 mg PO TID 11/27/23 09/04/25 09/04/25 08:00 History Diabetic shoes #1 ea 08/25/24 09/04/25 08/19/25 Rx CAM walker #1 ea 04/20/25 09/04/25 08/19/25 Rx acetaminophen 500 mg tablet 1,000 mg PO Q6H PRN Fever Or Pain 07/18/25 09/04/25 08/19/25 History (Tylenol Extra Strength) apixaban 5 mg tablet (Eliquis) 5 mg PO BID 07/18/25 09/04/25 09/04/25 08:00 History atorvastatin 40 mg tablet 40 mg PO DAILY 07/18/25 09/04/25 09/04/25 08:00 History macitentan 10 mg tablet (Opsumit) 10 mg PO DAILY 08/02/25 09/04/25 09/04/25 08:00 History pantoprazole 40 mg tablet,delayed 40 mg PO BID 30 days #60 tabs 08/07/25 09/04/25 09/04/25 08:00 Rx release (Protonix) clarithromycin 500 mg tablet 500 mg PO BID 14 days #28 tabs 08/19/25 09/04/25 09/02/25 Rx metronidazole 500 mg tablet 500 mg PO BID 14 days #28 tabs 08/19/25 09/04/25 09/04/25 08:00 Rx ceftriaxone 1 gram solution for 1 g IV DAILY 08/24/25 09/04/25 09/04/25 History injection insulin aspart U-100 100 unit/mL See Rx Instructions .Route 08/31/25 09/04/25 09/04/25 07:00 Rx (3 mL) subcutaneous pen (Novolog .COMPLEX #15 mL FlexPen U-100 Insulin aspart) insulin glargine 100 unit/mL (3 10 unit (0.1 mL) SUBCUT BEDTIME 08/31/25 09/04/25 Unknown Rx mL) subcutaneous pen (Basaglar #15 mL KwikPen U-100 Insulin) Allergies Allergy/AdvReac Type Severity Reaction Status Date / Time No Known Allergies Allergy Verified 08/24/25 01:13 Current Medications Generic Name Dose Route Start Last Admin Trade Name Freq PRN Reason Stop Dose Admin Albuterol/Ipratropium 3 ml 09/04/25 20:00 09/08/25 11:29 Ipratropium-Albuterol 3 Ml Neb INHALATION 3 ml QID.RESPIRATORY CHUY Administration Aspirin 81 mg 09/05/25 05:00 09/08/25 04:37 Aspirin 81 Mg Ec Tablet PO 81 mg DAILY CHUY Administration Atorvastatin Calcium 40 mg 09/05/25 05:00 09/08/25 04:37 Atorvastatin 40 Mg Tablet PO 40 mg DAILY CHUY Administration Bumetanide 1 mg 09/06/25 09:30 09/08/25 08:41 Bumetanide 0.25 Mg/Ml Sdv 4 Ml IVP 1 mg Q8H CHUY Administration Ciprofloxacin/Dexamethasone 4 drop 09/06/25 11:23 09/08/25 04:37 Ciprofloxacin-Dexameth Otic Susp 7.5 Ml Btl EAR-BOTH 4 drop BID CHUY Administration Protocol Famotidine 20 mg 09/05/25 08:15 09/08/25 08:40 Famotidine 20 Mg/2 Ml Inj IVP 20 mg Q12H CHUY Administration Norepinephrine Bitartrate 4 mg in 250 mls @ 0 mls/hr 09/04/25 19:45 09/08/25 03:55 Levophed IV 0 mcg/min .Q0M CHUY 0 mls/hr Protocol Titration Per Protocol Albumin Human 12.5 gm in 50 mls @ 60 mls/hr 09/06/25 18:53 09/07/25 17:05 Albumin IV Infused PRN PRN Infusion Hypotension and/or symptomatic Insulin Glargine 10 unit 09/08/25 08:00 09/08/25 08:49 Insulin Glargine 100 Units/1 Ml SUBCUT 10 unit Q12H CHUY Administration Insulin Human Lispro 0 unit 09/04/25 18:00 09/08/25 11:38 Insulin Lispro 100 Unit/1 Ml SUBCUT 16 unit TIDWM CHUY Administration Protocol Levothyroxine Sodium 112 mcg 09/05/25 05:00 09/08/25 04:37 Levothyroxine 112 Mcg Tablet PO 112 mcg DAILY CHUY Administration Meropenem 500 mg 09/07/25 10:00 09/08/25 08:50 Meropenem 500 Mg Sdv IVP 500 mg Q8H CHUY Administration Protocol Methylprednisolone Sodium Succinate 40 mg 09/07/25 19:30 09/08/25 11:36 Methylprednisolone Sod Succ 40 Mg/Ml Inj IVP 40 mg Q8H CHUY Administration Midodrine 5 mg 09/08/25 00:15 09/08/25 11:39 Midodrine 5 Mg Tablet PO 5 mg TID CHUY Administration Non-Formulary Medication 10 mg 09/06/25 17:30 09/08/25 04:37 Macitentan [Opsumit] PO 10 mg DAILY CHUY Administration Non-Formulary Medication 2.5 mg 09/06/25 18:00 09/08/25 11:39 Riociguat [Adempas] PO 2.5 mg TID CHUY Administration Sucralfate 1 gm 09/04/25 17:32 09/08/25 11:37 Sucralfate 1 Gm/10 Ml Oral Liq Udc PO 1 gm Q6H CHUY Administration PFSH Acute PFSH: Medical History (Updated 09/05/25 @ 18:51 by Wyatt Will DPM) Mediastinal lymphadenopathy Lung mass Pericardial effusion Tobacco abuse Anemia Diabetes Warfarin anticoagulation Chest pain History of pulmonary embolism Congestive heart failure History of nonmelanoma skin cancer Hypothalamic hypothyroidism Hypertension History of blood clots COPD (chronic obstructive pulmonary disease) History of pulmonary embolism Surgical History S/P TAVR (transcatheter aortic valve replacement) History of rotator cuff surgery Social History Smoking and tobacco/nicotine status: former use of tobacco/nicotine Quit status (tobacco/nicotine): has quit using Year quit tobacco: 2024 Former quit date comment: a week ago Alcohol intake: never Substance/Drug Use: never Marital status: Life Partner Vitals/I&O/Wt Last Vital Signs Temp 97.9 F 09/07/25 19:51 Pulse 83 09/08/25 11:31 Resp 14 09/08/25 11:31 BP 114/53 09/08/25 09:30 Pulse Ox 93 09/08/25 11:31 O2 Del Method High Flow Nasal Cannula 09/08/25 11:31 O2 Flow Rate 8 09/08/25 11:31 09/07/25 09/08/25 09/08/25 22:59 06:59 14:59 Intake Total 1437.75 / 1677.75 8.25 / 1686.00 460 / 460 Output Total 3785 / 4285 600 / 4885 400 / 400 Balance -2347.25 / -2607.25 -591.75 / -3199.00 60 / 60 Weight last 48 hrs Weight 154 lb 5.177 oz Weight 156 lb 8.451 oz Data 09/08/25 03:50 09/08/25 03:50 Micro: Microbiology 09/04/25 20:03 Wound Culture - Final Foot Left 09/08/25 10:24 Occult Blood (FIT) - Final Stool - Stool Aspirate A&P Assessment and plan 1. History of pulmonary embolism: 2. Pulmonary hypertension: 3. Acute hypoxemic respiratory failure: 4. Mass of upper lobe of right lun. Pulmonary emboli: Plan: # Acute on chronic hypoxemic respiratory failure -Patient's hypoxemia is multifactorial. Probably contributed by his recent PE versus severe pulmonary hypertension and being volume overloaded. I agree with current management with nasal cannula O2. # Probable sepsis-unclear etiology On vancomycin and meropenem, blood cultures pending. If negative recommend stopping them. # Severe pulmonary hypertension - He follows up with Dr. Martinez on him at [facility]. Records are not available at this time to review all of his meds but he does appear to be taking Opsumit 10 mg p.o. daily as well as Adempas 2.5 mg p.o. 3 times daily which has been continued here. I recommend watching carefully for any hypotension episodes and starting Levophed drip earlier than later if needed. # Recurrent bilateral PEs -Patient had been on and off Eliquis and has not consistently been taking his blood thinners he says. Currently on hold due to his acute GI bleed possibly. Never had a GI scope done in the past unknown history of any ulcers. I would recommend starting Protonix IV twice daily and keeping blood thinners on hold.- Agree with IVC filter placement whenever more stable. # Probable GI bleed Black tarry stools -If this gets worse he may need to be transferred out for a GI consult and EGD although he would be very high risk for any procedure secondary to this pulmonary hypertension and cardiac issues being in non-STEMI this admission. # Acute on chronic kidney disease on HD -Continue dialysis per nephrology. Appreciate help. # Non-STEMI Cardiology following appreciate help # Lung mass with mediastinal lymphadenopathy -Patient is very high risk for any procedures at this time. I recommend that he has any of his procedures done at [facility] where he is usual doctors are. He follows up with Dr. Alfredo # Bilateral pleural effusions right more than left -Pending thoracentesis # Peripheral artery disease # Type 2 diabetes -Watch blood sugars and monitor carefully avoid hypoglycemia. Keep blood sugars between 140-180 Goals of care-defer this to Dr. Tan at this time he is full code. Family is agreeable to being transferred to [facility] if needed. The high probability of a clinically significant, sudden or life threatening deterioration of the patient's [Respiratory, cardiac and renal] system(s) required my full and direct attention, intervention and personal management. The critical care time is as shown. This time is in addition to time spent performing any reported procedures but includes the following: [x] Data and vital sign review and interpretation [x] Patient assessment, examination and intervention [x] Documentation [x] Medication orders and management Critical Care Time (min): 35 Telemedicine Consent Patient seen today via Telemedicine by agreement and consent of patient.? Telemedicine technology used during the visit includes audio and, as available, review of images.? The patient encounter is appropriate and reasonable under the circumstances given the patient?s particular presentation at this time.? The patient has been advised of the potential risks and limitations of this mode of treatment (including but not limited to the absence of in-person examination) and has agreed to be treated in a remote fashion in spite of them.? Any, and all, of the patient?s/patient?s family?s questions on this issue have been answered and I have made no promises or guarantees to the patient. The patient has also been advised to contact this office for worsening conditions or problems, and seek emergency medical treatment and/or call 911 if the patient deems either necessary PDMP PDMP Reviewed: Not Reviewed Coding Level of Care Code Critical Care >/= 30 minutes Diagnoses History of pulmonary embolism Z86.711 Pulmonary hypertension I27.20 Acute hypoxemic respiratory failure J96.01 Mass of upper lobe of right lung R91.8 Pulmonary emboli I26.99
--- NOTE | 2025-09-08 14:17 | P.PN_ITS ---
Subjective 2 Subjective: continues to be on 8-10 L O2 NC s/p HD yesterday Medications: Reviewed: Yes Vitals/I&O/Wt Last Vital Signs Temp 97.9 F 09/07/25 19:51 Pulse 83 09/08/25 11:31 Resp 14 09/08/25 11:31 BP 114/53 09/08/25 09:30 Pulse Ox 93 09/08/25 11:31 O2 Del Method High Flow Nasal Cannula 09/08/25 11:31 O2 Flow Rate 8 09/08/25 11:31 09/07/25 09/08/25 09/08/25 22:59 06:59 14:59 Intake Total 1437.75 / 1677.75 8.25 / 1686.00 460 / 460 Output Total 3785 / 4285 600 / 4885 400 / 400 Balance -2347.25 / -2607.25 -591.75 / -3199.00 60 / 60 Weight last 48 hrs Weight 70 kg Weight 71 kg Physical Exam 2 Narrative: awake, alert , no distress No JVD PEERLA S1S2 RRR Lungs with [place] crackles Abd soft , non tender Ext no edema no skin rash Data 09/08/25 03:50 09/08/25 03:50 Micro: Microbiology 09/04/25 20:03 Wound Culture - Final Foot Left 09/08/25 10:24 Occult Blood (FIT) - Final Stool - Stool Aspirate A&P Assessment and plan 1. End stage renal disease on dialysis: Plan: 1. End-stage renal disease: Recently initiated on hemodialysis, patient now is volume overloaded but also is hypotensive. s/p hd x 3 sessions next hd tomorrow 2. Acute resp failure ,despite aggressive UF with HD , --> multifactorial , 3. Severe anemia, acute on chronic, s/p 2 units PRBCs, s/p epogen 4. Hypokalemia, improved 5. Elevated troponin, likely demand ischemia, management per primary team 6. h/oTAVR 7. H/O PE - anticoagulation held due to reccurrent anemia , plan for IVC filter placement Today's evaluation. Time spent 40 minutes. PDMP PDMP Reviewed: Not Reviewed Attestations 2 Medical Necessity Statement*: per [facility] Coding Level of Care Code Acute Code for Chg Fwd Diagnoses End stage renal disease on dialysis N18.6; Z99.2
--- NOTE | 2025-09-08 16:59 | PC.OT ---
OT EVALUATION ATTEMPTED TWICE TODAY AT 1400 AND 1700. PATIENT IS SLEEPING SOUNDLY AT BOTH OCCASIONS. WILL ATTEMPT AGAIN TOMORROW.
--- NOTE | 2025-09-08 17:30 | P.PN_ITS ---
Subjective 2 Subjective: Patient was seen this morning, currently alert oriented x 3, following all commands denies any fevers, no chills, no cough, no nausea, no vomiting, he is sitting up at the side of the bed on 9-10 L of oxygen, denies any bloody black stools he feels fairly comfortable, given his hypoxic respiratory failure discussed risk and benefits of IVC filter placement, for now we will hold off as a CT angiogram of the chest does not show any evidence of new PE, once his respiratory status improves, his O2 requirements decreased we can proceed with IVC filter placement, discussed risks and benefits, he voiced understanding, all questions answered, agreed to proceed Vitals/I&O/Wt Last Vital Signs Temp 97.9 F 09/07/25 19:51 Pulse 95 09/08/25 16:00 Resp 27 H 09/08/25 16:00 BP 103/38 09/08/25 16:00 Pulse Ox 94 09/08/25 16:00 O2 Del Method High Flow Nasal Cannula 09/08/25 15:40 O2 Flow Rate 6 09/08/25 15:40 09/08/25 09/08/25 09/08/25 06:59 14:59 22:59 Intake Total 8.25 / 1686.00 700 / 700 240 / 940 Output Total 600 / 4885 400 / 400 650 / 1050 Balance -591.75 / -3199.00 300 / 300 -410 / -110 Weight last 48 hrs Weight 70 kg Weight 71 kg Physical Exam 2 Const: COMMON NORMALS: no acute distress and patient oriented x3 Resp: COMMON NORMALS: normal respiratory effort, No retractions and No use of accessory muscles AUSCULTATION: crackles and wheezes Cardio: COMMON NORMALS: regular rate, regular rhythm, S1 normal heart sound present and S2 normal heart sound present RATE: regular rate RHYTHM: r egular rhythm HEART SOUNDS: S1 normal heart sound present and S2 normal heart sound present GI: COMMON NORMALS: Normal to inspection, nondistended, normoactive bowel sounds present and non-tender Extremity: NARRATIVE EXTREMITY EXAM: 1+ edema Neuro: COMMON NORMALS: patient oriented x3 Psych: COMMON NORMALS: mental status grossly normal Data 09/08/25 03:50 09/08/25 03:50 Micro: Microbiology 09/04/25 20:03 Wound Culture - Final Foot Left 09/08/25 10:24 Occult Blood (FIT) - Final Stool - Stool Aspirate A&P Assessment and plan 1. Chest pain: 2. Peripheral arterial disease: 3. Pulmonary emboli: 4. Type 2 diabetes mellitus with foot ulcer: 5. GI bleed: 6. Acute kidney injury superimposed on CKD: 7. End stage renal disease on dialysis: 8. Symptomatic anemia: 9. NSTEMI (non-ST elevated myocardial infarction): 10. Shock: Plan: Chest pain - With NSTEMI - With acute on chronic anemia, concern for GI bleed, thrombocytopenia, elevated INR -Type I versus type II NSTEMI Plan -Patient is on Eliquis, will hold for now, given patient's complications as above, discussed the risks and benefits of anticoagulant therapy, he voiced understanding, all questions answered, agreed to hold anticoagulant therapy for now -Certainly this is a difficult situation, but if he does develop recurrent chest pain, or EKG changes then we might have to consider trial of anticoagulant therapy -Aspirin, statin -Cardiac echo CONCLUSIONS 1. Normal left ventricular cavity size and systolic function, EF 73%. 2. Mild concentric left ventricular hyypertrophy. 3. Mild right ventricular enlargement and mild right ventricular -Serial Ekg, start troponins, telemetry monitoring - Stress testing based on clinical progress Thrombocytopenia, haptoglobin 220, LDH 255, sed rate 11, peripheral smear Acute hypoxic respiratory failure, requiring 9 L -Negative that 5 L so far - Fluid overload, bilateral effusions, pulmonary edema - Bumex 1 mg IV 8 hours with metolazone, - Nephrology consulted for dialysis - History of pulmonary embolism, anticoagulant therapy currently on hold due to acute anemia, with plans of IVC filter placement delayed given acute respiratory failure - Will have to hold off on anticoagulant therapy due to acute persistent anemia, discussed risks and benefits with patient, he voiced understanding, all questions answered, agreed to proceed - Solu-Medrol 40 mg IV every 8 hours - Vancomycin - Meropenem - CT angio of the chest CT/CT angio chest PE protcl [id number] IMPRESSION: 1. There are stable filling defects in the 2nd and 3rd order branches of the left lower lobe pulmonary artery. Relatively low-density associated with the these filling defects is present and there is calcific plaque associated with the right and left main pulmonary arteries extending into the proximal branches. The filling defects likely represent evidence of chronic emboli. No additional new emboli are identified. The RV/LV ratio is 1.2 which is stable on interval comparison. 2. 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 No significant change is noted 3. There has been interval increase in the size of the moderate-sized right-sided pleural effusion and mild increase in the small left-sided pleural effusion is also noted. Compressive atelectasis in the right lower lobe secondary to the right-sided pleural effusion is present. 3. 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 This finding was also present on the prior CT examination. 4. Extensive coronary artery calcification is present. 5. Findings associated with the liver is suggestive of cirrhosis. 6. Cholelithiasis. Right-sided pleural effusion, thoracentesis Acute on chronic anemia, concerns for slow GI bleed, he is occult positive stools -Hemoglobin 8.1, INR 1.9, platelet count, 54,000 -EGD July 2025 showed moderate gastritis of the abdomen, several small erosions and a segment of bleeding, biopsies taken Endo Clip was placed in one of the biopsy sites as could oozing was noted -Colonoscopy status post polypectomy Plan -CT chest abdomen pelvis with IV contrast no acute bleed ? Status post 4 units PRBC - Monitor hemoglobin -Monitor hemodynamics closely -Will consider iron infusions, IR iron studies -Will consider consulting general surgery, for repeat EGD based on clinical progress, but given acute hypoxic respiratory failure, is not the best candidate given risk of morbidity and mortality, less urgently required -Protonix, Carafate - Consulted cardiology, for IVC filter placement History of pulmonary embolism - On Eliquis, currently on hold due to acute anemia -Recurrent anemia requiring blood transfusions - Cardiology consulted for IVC filter placement Advanced arterial vascular disease in the abdomen CT/CT abdomen pelvis w con* [id number] IMPRESSION: 4. Advanced arterial vascular disease is present throughout the abdomen and pelvis as described. No infrarenal abdominal aortic aneurysm. 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 Superior mesenteric artery remains patent. 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 Plan - Aspirin, statin - Avoid hypotension - Will need to follow-up with vascular surgery as outpatient Shock -Monitor in ICU, MAP in 65 -Patient might require Levophed - Likely multifactorial - With acute on chronic anemia - Possible sepsis? - Continue home vancomycin and Rocephin Sepsis? - Blood cultures so far no growth - UA - Cultures from diabetic foot infection Diabetic foot infection - Left foot - Wound care - Podiatry consulted - Vancomycin, Rocephin End-stage renal disease on dialysis -Nephrology consulted -Plans on dialysis today Weakness, fatigue, likely multifactorial plan for today IV diureses, IV antibiotics, thoracentesis, consult pulmonary PDMP PDMP Reviewed: Not Reviewed Attestations 2 Medical Necessity Statement*: Patient requires hospitalization for acute hypoxic respiratory failure Diagnoses Chest pain R07.9 Peripheral arterial disease I73.9 Pulmonary emboli I26.99 Type 2 diabetes mellitus with foot ulcer E11.621; L97.509 GI bleed K92.2 Acute kidney injury superimposed on CKD N17.9; N18.9 End stage renal disease on dialysis N18.6; Z99.2 Symptomatic anemia D64.9 NSTEMI (non-ST elevated myocardial infarction) I21.4 Shock R57.9
[2025-09-08] MEDS: insulin glargine 100 units/1 mL 15 UNIT SUBCUT (18:10)
[2025-09-09] VITALS (57 sets, daily range): BP systolic 83–130; BP diastolic 34–64; PULSE 71–112; RESP 13–35; TEMP 36.2; O2SAT 58–99
[2025-09-09] MEDS: sucralfate 1 gm/10 mL Oral Liq UDC PO ×5 (00:36→22:51)
[2025-09-09] MEDS: RIOCIGUAT 2.5 MG 2.5 EACH PO ×3 (04:11→21:01)
[2025-09-09] MEDS: ciprofloxacin-dexameth Otic Susp 7.5 mL Btl 4 DROP EAR-BOTH ×2 (04:11→16:44)
[2025-09-09 04:12] LABS: Hematocrit 26.5 % (37-53); Hemoglobin 8.50 g/dL (11.27-16.99); Mean Corpuscular HGB Conc 32.1 g/dL (30-55); Mean Corpuscular Hemoglobin 28.5 pg (27-33); Mean Corpuscular Volume 88.9 fl (82-101); Nucleated Red Blood Cells % 0 %; Platelet Count 77 10^3/cmm (157-399); Red Blood Count 2.98 10^6/uL (3.85-5.65); White Blood Count 16.15 10^3/uL (3.29-11.43)
[2025-09-09] MEDS: MACITENTAN 10 MG 10 EACH PO (04:12)
[2025-09-09] MEDS: methylPREDNISolone sod succ 40 mg/mL INJ IVP ×2 (04:12→12:33)
[2025-09-09 04:42] LABS: Alanine Aminotransferase 15 U/L (0-41); Albumin Level 3.2 g/dL (3.5-5.2); Alkaline Phosphatase 255 U/L (40-130); Anion Gap 20.2 (5-19); Aspartate Amino Transferase 22 U/L (0-40); Blood Urea Nitrogen 64 mg/dL (8-23); Calcium 8.6 mg/dL (8.5-10.5); Carbon Dioxide 25 mmol/L (22-29); Chloride 94 mmol/L (98-107); Creatinine Clr Calc Pharmacy 23.2654; Globulin 2.4 g/dL (1.3-4.6); Glucose 398 mg/dL (65-115); Magnesium 1.8 mg/dL (1.7-2.3); Osmolality Calculated 315 mOsm/kg (285-295); Potassium 4.2 mmol/L (3.5-5.1); Sodium 135 mmol/L (136-145); Total Protein 5.6 g/dL (6.6-8.7)
[2025-09-09 04:48] LABS: NT Pro B Type Natriuretic Pept 14637 pg/mL (0-125); Procalcitonin 0.56 ng/mL (0-0.5)
[2025-09-09 06:28] LABS: ABG PCO2 42.4 mmHg (35-45); ABG PH Result 7.44 (7.35-7.45); Arterial Blood Gas Hematocrit 26.6 % (42-52); Blood Gas LPM 6.0 %; Blood Gas Operator Identificat SAM; Blood Gas Sample Site Brachial, right; Blood Gas Sample Type Arterial; HCO3 ABG 28.4 mmol/L (22-26); PO2 ABG 47.8 mmHg (80.0-100.0)
--- NOTE | 2025-09-09 07:30 | XACV_ITS ---
Ht: 163 cm Wt: 70 kg BSA: 1.79 m2 Gender: Male : 1955 Exam Type: Invasive Peripheral Vascular Procedure(s): Procedure Description: Peripheral vascular Intervention Procedure Description: PV IVC Filter Placement Exam Priority: Routine Alexis STEARNS; Lower Extremity Diagnostic Findings Indication for IVC filter placement: Inability to take anticoagulation in the face of DVT and pulmonary embolismUsing Seldinger technique right common femoral vein was cannulated, short 6 [place] sheath was placed. Pigtail catheter was inserted over the wire, IVC venogram was performed, right and left renal veins were identified and marked, short 6 [place] sheath was then exchanged with long 7 [place] IVC filter sheath over exchange wire. Cook celect [place] IVC filter Lot number [id number] with expiry date of 04/28/2028 was deployed below the renal veins successfully.Long 7 [place] Cook sheath was then withdrawn out of the body over the wire and hemostasis was achieved by holding pressure for 14 minutes.No complication noted. Conclusions Indication for IVC filter placement: Inability to take anticoagulation in the face of DVT and pulmonary embolismUsing Seldinger technique right common femoral vein was cannulated, short 6 [place] sheath was placed. Pigtail catheter was inserted over the wire, IVC venogram was performed, right and left renal veins were identified and marked, short 6 [place] sheath was then exchanged with long 7 [place] IVC filter sheath over exchange wire. Cook celect [place] IVC filter Lot number [id number] with expiry date of 04/28/2028 was deployed below the renal veins successfully.Long 7 [place] Cook sheath was then withdrawn out of the body over the wire and hemostasis was achieved by holding pressure for 14 minutes.No complication noted. Recommendations 1-Return to inpatient for close monitoring and routine cath care 2-Risk factor modification for secondary prevention 3-Bedrest for 3 hours 4-Follow up with Dr. Espinoza in four weeks and your primary care in 10 days. Access Site Site: Right Femoral vein Sheath Size: 6 Fr Hemost... Method: Manual Compression Hemost... Success: Successful Procedure Details Findings Procedure Consent Obtained. Pre-Procedure Time Out. Identified patient by full name and date of as verbalized by the patient/guarantor. Does the consent match the physician's order: Yes. Accurate & Complete Informed Consent: Yes. Inpatient/Outpatient History & Physical on Chart: Yes. If H&P is completed, is and addenduem needed: No. Visualize and Verify Site with Patient/Guarantor: N/A. Relevant Radiology Images available: Yes. The risks, benefits, and alternatives of sedation and/or procedure were discussed by physician. The patient agrees to continue. Procedure started. Beater Lead Indications: Inablility to take oral anticoagualation in the face of PE. Cardiovascular Instability: No. Correct patient, site and procedure confirmed by cath team. PERRLA. Strong, equal hand senior budget analyst bilaterally. Lungs clear x 5 lobes. IV Site on Arrival:Single lumen PICC line in the right bicep. Respiratory here to place BiPap on the patient per Dr. Espinoza. IV Fluids: 0.9% NaCl at KVO. 0 mL infused prior to technical laboratory asst. bilateral groins was prepped with chloroprep then draped in the usual sterile fashion. Physician notified. Baseline sample Acquired. HR: 84 BPM. Patient's family unavailable. Equipment: 6F - Femoral. Cardiac Cath Pack. ACIST Manifold Kit Model BT 2000. Heparinized Saline (2 units/mL), 1000 mL bag. Kit, Micropuncture. Physician arrived. Physician scrubbed in. Immediate Pre-Procedure Time Out. Correct Patient: Yes; Correct Procedure: Yes; Correct Site: Yes; Correct Patient Position: Yes; Correct Supplies: Yes; Dried Flammable Prep: Yes; Blood Products Available: No. Lidocaine 1% infiltrated to the right groin. Venous access obtained with a micropuncture set. A 5 kazakh Angled Pig catheter in over the standard J wire. Aortogram performed in AP @ 10 mL/second for a total of 30 mL. Cook Celect False Pass IVC filter deployment system in over the standarad J wire. Standard J wire out. IVC filter deployed. IVC filter deployment system out. Dr. Espinoza holding manual pressure. A Manual Compression was successful obtaining hemostatsis at the Right Femoral vein insertion site. Right groin was cleansed with chloroprep. Op-site applied to the puncture site. No oozing or hematoma noted. Post sheath removal instructions were given and the patient verbalized understanding. Post Procedure: Pulses reassessed and unchanged. PERRLA. Strong, equal hand senior budget analyst bilaterally. No VTE prophylaxis required. Medication's Wasted: Heparin = 1000 units. Medication's Wasted: Lidocaine 1% = 4 mL. Total IV fluids: 25 mL. Post-op diagnosis: S/P IVC filter insertion. Complications: none. Estimated blood loss: 5mL-10mL. Responsiveness - Normal response to verbal stimuli; alert and oriented, PERRLA. Responsiveness - Normal response to verbal stimuli; alert and oriented, PERRLA. Circulation: W/N/L, pulses unchanged. Airway - Unaffected, no intervention required; spontaneous ventilation. Nausea/Vomiting: No. Procedure completed. Vital chart was stopped. Patient transferred by bed to ICU. Procedure Medications Start: 9:25 AM Stop: 9:25 AM Medication: Versed Amount: 1 mg Route: I.V. Start: 9:28 AM Stop: 9:28 AM Medication: Versed Amount: 1 mg Route: I.V. I, the attending physician, have reviewed and verified all procedure medications. Yes, all medications given per verbal order History/Risk Factors Hypertension: Yes Dyslipidemia: No Peripheral Arterial Disease (PAD): No Obesity: No Renal Disease: No Tobacco Use: Former Prior Interventions PCI: No CABG: No Valve Surgery: No Report Signatures Finalized by Satnam Espinoza MD on 09/09/2025 10:22 AM
[2025-09-09] MEDS: insulin glargine 100 units/1 mL 15 UNIT SUBCUT ×2 (08:02→17:33)
[2025-09-09] MEDS: heparin, porcine 1,000 unit/mL INJ 10 mL 1000 UNIT IV (08:03)
[2025-09-09] MEDS: heparin, porcine 1,000 unit/mL INJ 10 mL 10000 UNIT INTRACATH (08:03)
--- NOTE | 2025-09-09 09:02 | P.PN_ITS ---
<Statement entered by Satnam Espinoza MD - 09/09/25 20:29> Patient was evaluated and cared for in conjunction with an advanced practice practitioner. I personally examined the patient and reviewed the chart and all pertinent data including imaging, telemetry, and laboratory results. I discussed the patient in detail with the advanced practice practitioner. Please see their note for complete H&P testing result and agreed upon plan of care for the patient. Subjective 2 Subjective: Sitting on the side of the bed this morning, denies shortness of breath or chest pain. Plan for IVC filter placement today. Vitals/I&O/Wt Last Vital Signs Temp 97.9 F 09/07/25 19:51 Pulse 87 09/09/25 08:50 Resp 18 09/09/25 08:00 BP 111/46 09/09/25 08:00 Pulse Ox 99 09/09/25 08:50 O2 Del Method High Flow Nasal Cannula 09/09/25 08:00 O2 Flow Rate 6 09/09/25 08:00 FiO2 30 09/09/25 08:50 09/08/25 09/09/25 09/09/25 22:59 06:59 14:59 Intake Total 480 / 1210 30 / 1210 0 / 0 Output Total 800 / 1800 600 / 1800 Balance -320 / -590 -570 / -590 0 / 0 Weight last 48 hrs Weight 152 lb 1.903 oz Weight 154 lb 5.177 oz Weight 156 lb 8.451 oz Physical Exam 2 Const: COMMON NORMALS: no acute distress and patient oriented x3 GENERAL APPEARANCE: cooperative and comfortable ORIENTATION/CONSCIOUSNESS: Yes awake, Yes oriented to person, Yes oriented to place and Yes oriented to time Chest: COMMONS NORMALS: normal inspection of the chest and normal palpation of entire chest wall CHEST: Yes Symmetrical chest wall rise Resp: COMMON NORMALS: normal respiratory effort, No retractions and No use of accessory muscles EFFORT & INSPECTION: Yes symmetric chest movement A USCULTATION: diminished lung sounds bilateral in the lower lung perera Cardio: COMMON NORMALS: regular rate, regular rhythm, S1 normal heart sound present, S2 normal heart sound present, No gallops present (Cardio), No clicks present (Cardio), No murmurs present (Cardio) and No rub (Cardio) RATE: r egular rate RHYTHM: regular rhythm HEART SOUNDS: S1 normal heart sound present and S2 normal heart sound present PERIPHERAL PULSES: radial pulses present Extremity: COMMON NORMALS: no pedal edema Neuro: COMMON NORMALS: patient oriented x3 and moves all extremities S ENSORIUM/ORIENTATION: Yes oriented to person, Yes oriented to place and Yes oriented to time Data 09/09/25 03:59 09/09/25 03:59 Micro: Microbiology 09/04/25 20:03 Wound Culture - Final Foot Left 09/08/25 10:24 Occult Blood (FIT) - Final Stool - Stool Aspirate A&P Assessment and plan 1. Pulmonary emboli: 2. Troponin level elevated: 3. S/P TAVR (transcatheter aortic valve replacement): 4. Diabetes: 5. End stage renal disease on dialysis: 6. Acute on chronic anemia: Plan: Unable to tolerate anticoagulation, IVC filter to be placed today. Blood pressure soft overnight, better now. Continue midodrine. Still diuresing, continue Bumex. PDMP PDMP Reviewed: Not Reviewed Attestations 2 Medical Necessity Statement*: ivc filter, PE, anemia Coding Level of Care Code Acute Code for [facility] Fwd Diagnoses Pulmonary emboli I26.99 Troponin level elevated R79.89 S/P TAVR (transcatheter aortic valve replacement) Z95.2 Diabetes E11.9 End stage renal disease on dialysis N18.6; Z99.2 Acute on chronic anemia D64.9
--- NOTE | 2025-09-09 09:20 | W.PM.OPSUD ---
Surgery/Procedure H&P Update DATE OF PROCEDURE: September 09, 2025 DATE H&P PERFORMED: 09/05/25 H&P UPDATE INFORMATION: I have reviewed H&P completed within last 30 days, I have examined patient prior to procedure and No changes to prior documentation PREOP DIAGNOSIS: Inability to take anticoagulation in the face of bleeding and pulmonary emb PRIMARY INDICATION FOR PROCEDURE: Pulmonary embolism Inability to take anticoagulation Anemia GI bleeding PLANNED PROCEDURE: IVC retrievable filter planned for short-term 3 to 4 months PATIENT REASSESSED PRIOR TO SEDATION, WITH NO CHANGE NOTED: Yes PHYSICAL EXAM: alert, oriented x 3, clear to auscultation bilaterally, regular rate & rhythm and operative site marked OTHER PERTINENT EXAM FINDINGS: All risk-benefit and alternative for the procedure has been explained to the patient. Patient understand 2% risk of breast stroke pulmonary embolism contrast-induced nephropathy urgent or emergent vascular surgery, patient understand risk for IVC filter clogging leading to pelvic congestion IVC blockage, patient restand 5 % risk of IVC tear during retrieval perforation venous puncture and complication from placement. Patient clearly understood it and would like to proceed with it.
[2025-09-09] MEDS: bumetanide 0.25 mg/mL SDV 4 mL 1 MG IVP ×2 (12:28→22:51)
--- NOTE | 2025-09-09 12:55 | P.PN_ITS ---
Subjective 2 Subjective: kingston Wiseman is a 70 year old male with past medical history of pulmonary hypertension, status post TAVR, end-stage renal disease on dialysis, history of PE on Eliquis, COPD, lung mass with mediastinal adenopathy, chronic congestive heart failure initially on 09/04/2025 with weakness fatigue and chest pain found to have non-STEMI, anemia, pulmonary emboli 2nd and 3rd branches of lower lobes, lower extremity DVT, probable A-fib, recent echo showed mild RV hypokinesis with increased troponins, probable sepsis with septic shock. I was consulted for further management Patient had a recent echocardiogram that showed RV dysfunction but he is also anemic requiring transfusion but not for the last 2 days. Anticoagulation has been held. Cardiology placing IVC filter however that was canceled due to his hypoxemia. Currently on 6 L nasal cannula He has also been getting intermittent dialysis by nephrology CT chest done showed 09/04/2025-showing PEs also having a large mass in the medial aspect of the right upper lobe 6 cm with mediastinal extension, lung malignancy. Bilateral pleural effusions right more than left. Hilar and mediastinal lymphadenopathy noted as well. 09/09/2025 Unable to obtain thoracentesis, fluid very small. Pending IVC filter placement. Is on 6 L nasal cannula currently sitting up in bed. Drops down to 80 on Levophed. 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 History of pulmonary embolism: 2. Pulmonary hypertension: 3. Acute hypoxemic respiratory failure: 4. Mass of upper lobe of right lun. Pulmonary emboli: Plan: # Acute on chronic hypoxemic respiratory failure -Patient's hypoxemia is multifactorial. Probably contributed by his recent PE versus severe pulmonary hypertension and being volume overloaded. Continue 6L nasal cannula O2, use Bipap for IVC fiter placement today by cardiology # Probable sepsis-unclear etiology On vancomycin and meropenem, blood cultures pending. If negative recommend stopping them. # Severe pulmonary hypertension - He follows up with Dr. Meyer at [place]. Records are not available at this time to review all of his meds but he does appear to be taking Opsumit 10 mg p.o. daily as well as Adempas 2.5 mg p.o. 3 times daily which has been continued here. I recommend watching carefully for any hypotension episodes and starting Levophed drip earlier than later if needed. # Recurrent bilateral PEs -Patient had been on and off Eliquis and has not consistently been taking his blood thinners he says. Currently on hold due to his acute GI bleed possibly. Never had a GI scope done in the past unknown history of any ulcers. I would recommend starting Protonix IV twice daily and keeping blood thinners on hold.- Agree with IVC filter placement today with Bipap help # Probable GI bleed Black tarry stools -If this gets worse he may need to be transferred out for a GI consult and EGD although he would be very high risk for any procedure secondary to this pulmonary hypertension and cardiac issues being in non-STEMI this admission. # Acute on chronic kidney disease on HD -Continue dialysis per nephrology. Appreciate help. # Non-STEMI Cardiology following appreciate help # Lung mass with mediastinal lymphadenopathy -Patient is very high risk for any procedures at this time. I recommend that he has any of his procedures done at [place] where he is usual doctors are. He follows up with Dr. Alfredo # Bilateral pleural effusions right more than left -Cancelled thoracentesis- very small effusions # Peripheral artery disease # Type 2 diabetes -Watch blood sugars and monitor carefully avoid hypoglycemia. Keep blood sugars between 140-180 Goals of care-defer this to Dr. Tan at this time he is full code. Family is agreeable to being transferred to [place] if needed. The high probability of a clinically significant, sudden or life threatening deterioration of the patient's [Respiratory, cardiac and renal] system(s) required my full and direct attention, intervention and personal management. The critical care time is as shown. This time is in addition to time spent performing any reported procedures but includes the following: [x] Data and vital sign review and interpretation [x] Patient assessment, examination and intervention [x] Documentation [x] Medication orders and management Critical Care Time (min): 35 Telemedicine Consent Patient seen today via Telemedicine by agreement and consent of patient.? Telemedicine technology used during the visit includes audio and, as available, review of images.? The patient encounter is appropriate and reasonable under the circumstances given the patient?s particular presentation at this time.? The patient has been advised of the potential risks and limitations of this mode of treatment (including but not limited to the absence of in-person examination) and has agreed to be treated in a remote fashion in spite of them.? Any, and all, of the patient?s/patient?s family?s questions on this issue have been answered and I have made no promises or guarantees to the patient. The patient has also been advised to contact this office for worsening conditions or problems, and seek emergency medical treatment and/or call 911 if the patient deems either necessary PDMP PDMP Reviewed: Not Reviewed Attestations 2 Medical Necessity Statement*: IVC filter placement today Coding Level of Care Code Critical Care >/= 30 minutes Diagnoses History of pulmonary embolism Z86.711 Pulmonary hypertension I27.20 Acute hypoxemic respiratory failure J96.01 Mass of upper lobe of right lung R91.8 Pulmonary emboli I26.99
--- NOTE | 2025-09-09 13:02 | PC.SOCIAL ---
IMM update pg 2 of IMM updated and reviewed w/ patients sig. other. Copy provided and copy dated, initialed and placed in chart.
--- NOTE | 2025-09-09 19:05 | P.PN_ITS ---
Subjective 2 Subjective: Patient was seen this morning, he is status post IVC filter placement, currently on BiPAP, he is able to follow commands he gets he is a thumbs up that he is doing okay, denies any fevers, no chills, no cough, tolerating BiPAP well, plasma weaned off BiPAP this afternoon Vitals/I&O/Wt Last Vital Signs Temp 97.9 F 09/07/25 19:51 Pulse 88 09/09/25 17:00 Resp 22 H 09/09/25 17:00 BP 103/48 09/09/25 17:00 Pulse Ox 81 L 09/09/25 17:00 O2 Del Method High Flow Nasal Cannula 09/09/25 15:46 O2 Flow Rate 6 09/09/25 15:46 FiO2 30 09/09/25 11:23 09/09/25 09/09/25 09/09/25 06:59 14:59 22:59 Intake Total 30 / 1210 240 / 240 251.5 / 491.5 Output Total 600 / 1800 0 / 0 Balance -570 / -590 240 / 240 251.5 / 491.5 Weight last 48 hrs Weight 69 kg Weight 70 kg Weight 71 kg Physical Exam 2 Const: COMMON NORMALS: no acute distress and patient oriented x3 Resp: COMMON NORMALS: normal respiratory effort, No retractions and No use of accessory muscles OTHER: Wheezing and crackles Cardio: COMMON NORMALS: regular rate, regular rhythm, S1 normal heart sound present and S2 normal heart sound present RATE: regular rate RHYTHM: r egular rhythm HEART SOUNDS: S1 normal heart sound present and S2 normal heart sound present GI: COMMON NORMALS: Normal to inspection, nondistended, normoactive bowel sounds present and non-tender Extremity: COMMON NORMALS: no pedal edema Neuro: COMMON NORMALS: patient oriented x3, CN's II-XII intact bilaterally and moves all extremities Psych: COMMON NORMALS: mental status grossly normal Data 09/09/25 03:59 09/09/25 03:59 Micro: Microbiology 09/04/25 15:38 Blood Culture - Final Blood NO GROWTH AFTER 5 DAYS 09/04/25 15:38 Blood Culture - Final Blood NO GROWTH AFTER 5 DAYS A&P Assessment and plan 1. Chest pain: 2. Peripheral arterial disease: 3. Pulmonary emboli: 4. Type 2 diabetes mellitus with foot ulcer: 5. GI bleed: 6. Acute kidney injury superimposed on CKD: 7. End stage renal disease on dialysis: 8. Symptomatic anemia: 9. NSTEMI (non-ST elevated myocardial infarction): 10. Shock: Plan: Chest pain - With NSTEMI - With acute on chronic anemia, concern for GI bleed, thrombocytopenia, elevated INR -Type I versus type II NSTEMI Plan -Patient is on Eliquis, will hold for now, given patient's complications as above, discussed the risks and benefits of anticoagulant therapy, he voiced understanding, all questions answered, agreed to hold anticoagulant therapy for now -Certainly this is a difficult situation, but if he does develop recurrent chest pain, or EKG changes then we might have to consider trial of anticoagulant therapy -Aspirin, statin -Cardiac echo CONCLUSIONS 1. Normal left ventricular cavity size and systolic function, EF 73%. 2. Mild concentric left ventricular hyypertrophy. 3. Mild right ventricular enlargement and mild right ventricular -Serial Ekg, start troponins, telemetry monitoring - Stress testing based on clinical progress versus outpatient Thrombocytopenia, haptoglobin 220, LDH 255, sed rate 11, peripheral smear Acute hypoxic respiratory failure, requiring 6 L -Negative that 7.8 L so far - Fluid overload, bilateral effusions, pulmonary edema - Bumex 1 mg IV 12 hours with metolazone, - Nephrology consulted for dialysis - History of pulmonary embolism, anticoagulant therapy currently on hold due to acute anemia, with plans of IVC filter placement delayed given acute respiratory failure - Will have to hold off on anticoagulant therapy due to acute persistent anemia, discussed risks and benefits with patient, he voiced understanding, all questions answered, agreed to proceed - Solu-Medrol de-escalated to 40 mg daily - Vancomycin will continue vancomycin for chronic IV antibiotics for diabetic foot infection - Meropenem, will likely de-escalate in the next 24 hours, de-escalate to Rocephin - CT angio of the chest CT/CT angio chest PE protcl [id number] IMPRESSION: 1. There are stable filling defects in the 2nd and 3rd order branches of the left lower lobe pulmonary artery. Relatively low-density associated with the these filling defects is present and there is calcific plaque associated with the right and left main pulmonary arteries extending into the proximal branches. The filling defects likely represent evidence of chronic emboli. No additional new emboli are identified. The RV/LV ratio is 1.2 which is stable on interval comparison. 2. 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 No significant change is noted 3. There has been interval increase in the size of the moderate-sized right-sided pleural effusion and mild increase in the small left-sided pleural effusion is also noted. Compressive atelectasis in the right lower lobe secondary to the right-sided pleural effusion is present. 3. 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 This finding was also present on the prior CT examination. 4. Extensive coronary artery calcification is present. 5. Findings associated with the liver is suggestive of cirrhosis. 6. Cholelithiasis. Right-sided pleural effusion, thoracentesis, not enough fluid to tap monitor Acute on chronic anemia, concerns for slow GI bleed, he is occult positive stools -Hemoglobin 8.1, INR 1.9, platelet count, 54,000 -EGD July 2025 showed moderate gastritis of the abdomen, several small erosions and a segment of bleeding, biopsies taken Endo Clip was placed in one of the biopsy sites as could oozing was noted -Colonoscopy status post polypectomy Plan -CT chest abdomen pelvis with IV contrast no acute bleed ? Status post 4 units PRBC - Monitor hemoglobin -Monitor hemodynamics closely -Status post IVC filter placement -Will consider consulting general surgery, for repeat EGD based on clinical progress, but given acute hypoxic respiratory failure, is not the best candidate given risk of morbidity and mortality, less urgently required -Protonix, Carafate History of pulmonary embolism - On Eliquis, currently on hold due to acute anemia -Recurrent anemia requiring blood transfusions - Cardiology consulted for IVC filter placement, status post IVC filter placement Advanced arterial vascular disease in the abdomen CT/CT abdomen pelvis w con* [id number] IMPRESSION: 4. Advanced arterial vascular disease is present throughout the abdomen and pelvis as described. No infrarenal abdominal aortic aneurysm. 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 Superior mesenteric artery remains patent. 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 Plan - Aspirin, statin - Avoid hypotension - Will need to follow-up with vascular surgery as outpatient Shock -Monitor in ICU, MAP in 65 -Patient might require Levophed - Likely multifactorial - With acute on chronic anemia - Possible sepsis? - Continue home vancomycin and Rocephin Sepsis? - Blood cultures so far no growth - UA - Cultures from diabetic foot infection Diabetic foot infection - Left foot - Wound care - Podiatry consulted - Vancomycin, Rocephin End-stage renal disease on dialysis -Nephrology consulted -Plans on dialysis today Weakness, fatigue, likely multifactorial History of pulmonary hypertension continue home medications plan for today IV diureses, IV antibiotics, thoracentesis, consult pulmonary PDMP PDMP Reviewed: Not Reviewed Attestations 2 Medical Necessity Statement*: Patient requires hospitalization for history of anemia, PE requiring IVC filter placement, hypoxic respiratory failure, anemia, diabetic foot infection Diagnoses Chest pain R07.9 Peripheral arterial disease I73.9 Pulmonary emboli I26.99 Type 2 diabetes mellitus with foot ulcer E11.621; L97.509 GI bleed K92.2 Acute kidney injury superimposed on CKD N17.9; N18.9 End stage renal disease on dialysis N18.6; Z99.2 Symptomatic anemia D64.9 NSTEMI (non-ST elevated myocardial infarction) I21.4 Shock R57.9
--- NOTE | 2025-09-09 19:51 | P.PN_ITS ---
Subjective 2 Subjective: doing better on 5L NC Medications: Reviewed: Yes Vitals/I&O/Wt Last Vital Signs Temp 97.9 F 09/07/25 19:51 Pulse 88 09/09/25 17:00 Resp 22 H 09/09/25 17:00 BP 103/48 09/09/25 17:00 Pulse Ox 81 L 09/09/25 17:00 O2 Del Method High Flow Nasal Cannula 09/09/25 15:46 O2 Flow Rate 6 09/09/25 15:46 FiO2 30 09/09/25 11:23 09/09/25 09/09/25 09/09/25 06:59 14:59 22:59 Intake Total 30 / 1210 240 / 240 251.5 / 491.5 Output Total 600 / 1800 0 / 0 Balance -570 / -590 240 / 240 251.5 / 491.5 Weight last 48 hrs Weight 69 kg Weight 70 kg Physical Exam 2 Narrative: awake, alert , no distress No JVD PEERLA S1S2 RRR Lungs with [place] crackles Abd soft , non tender Ext no edema no skin rash Data 09/09/25 03:59 09/09/25 03:59 Micro: Microbiology 09/04/25 15:38 Blood Culture - Final Blood NO GROWTH AFTER 5 DAYS 09/04/25 15:38 Blood Culture - Final Blood NO GROWTH AFTER 5 DAYS A&P Assessment and plan 1. End stage renal disease on dialysis: Plan: 1. End-stage renal disease: Recently initiated on hemodialysis, patient now is volume overloaded but also is hypotensive. HD today 2. Acute resp failure ,despite aggressive UF with HD , --> multifactorial , 3. Severe anemia, acute on chronic, s/p 2 units PRBCs, s/p epogen 4. Hypokalemia, improved 5. Elevated troponin, likely demand ischemia, management per primary team 6. h/oTAVR 7. H/O PE - anticoagulation held due to reccurrent anemia , s/p IVC filter placement Today's evaluation. Time spent 40 minutes. PDMP PDMP Reviewed: Not Reviewed Attestations 2 Medical Necessity Statement*: per medicine Coding Level of Care Code Acute Code for Chg Fwd Diagnoses End stage renal disease on dialysis N18.6; Z99.2
[2025-09-10] VITALS (43 sets, daily range): BP systolic 80–134; BP diastolic 37–66; PULSE 81–110; RESP 13–38; TEMP 36.8–37.1; O2SAT 84–100
[2025-09-10 04:41] LABS: ABG PCO2 37.3 mmHg (35-45); ABG PH Result 7.47 (7.35-7.45); Arterial Blood Gas Hematocrit 33.7 % (42-52); Blood Gas Operator Identificat JDB; Blood Gas Sample Site Brachial, right; Blood Gas Sample Type Arterial; HCO3 ABG 27.1 mmol/L (22-26); PO2 ABG 45.5 mmHg (80.0-100.0)
[2025-09-10 04:42] LABS: Blood Gas LPM 6.0 %
[2025-09-10 04:50] LABS: Hematocrit 26.0 % (37-53); Hemoglobin 8.30 g/dL (11.27-16.99); Mean Corpuscular HGB Conc 31.9 g/dL (30-55); Mean Corpuscular Hemoglobin 29.6 pg (27-33); Mean Corpuscular Volume 92.9 fl (82-101); Nucleated Red Blood Cells % 0.1 %; Platelet Count 76 10^3/cmm (157-399); Red Blood Count 2.80 10^6/uL (3.85-5.65); White Blood Count 24.83 10^3/uL (3.29-11.43)
[2025-09-10] MEDS: norepinephrine 4 MG/250 ML BAG 15 MG IV (04:50)
[2025-09-10] MEDS: MACITENTAN 10 MG 10 EACH PO (05:25)
[2025-09-10 05:26] LABS: Alanine Aminotransferase 21 U/L (0-41); Albumin Level 3.0 g/dL (3.5-5.2); Alkaline Phosphatase 241 U/L (40-130); Aspartate Amino Transferase 42 U/L (0-40); Blood Urea Nitrogen 42 mg/dL (8-23); Calcium 8.3 mg/dL (8.5-10.5); Carbon Dioxide 23 mmol/L (22-29); Chloride 98 mmol/L (98-107); Creatinine Clr Calc Pharmacy 29.6262; Globulin 2.4 g/dL (1.3-4.6); Glucose 406 mg/dL (65-115); Magnesium 1.8 mg/dL (1.7-2.3); Osmolality Calculated 310 mOsm/kg (285-295); Sodium 136 mmol/L (136-145); Total Protein 5.4 g/dL (6.6-8.7)
[2025-09-10] MEDS: ciprofloxacin-dexameth Otic Susp 7.5 mL Btl 4 DROP EAR-BOTH ×2 (05:27→17:30)
[2025-09-10] MEDS: insulin glargine 100 units/1 mL 15 UNIT SUBCUT ×2 (05:27→18:12)
[2025-09-10] MEDS: RIOCIGUAT 2.5 MG 2.5 EACH PO ×3 (05:27→21:18)
[2025-09-10] MEDS: sucralfate 1 gm/10 mL Oral Liq UDC PO ×4 (05:28→23:47)
[2025-09-10 05:31] LABS: Anion Gap 19.3 (5-19); Potassium 4.3 mmol/L (3.5-5.1)
[2025-09-10] MEDS: ondansetron 2 mg/ML SDV 2 mL 4 MG IVP (05:37)
[2025-09-10 06:09] LABS: NT Pro B Type Natriuretic Pept 11400 pg/mL (0-125); Procalcitonin 2.22 ng/mL (0-0.5)
--- NOTE | 2025-09-10 10:13 | PM.PN ---
Subjective Subjective: kingston Wiseman is a 70 year old male with past medical history of pulmonary hypertension, status post TAVR, end-stage renal disease on dialysis, history of PE on Eliquis, COPD, lung mass with mediastinal adenopathy, chronic congestive heart failure initially on 09/04/2025 with weakness fatigue and chest pain found to have non-STEMI, anemia, pulmonary emboli 2nd and 3rd branches of lower lobes, lower extremity DVT, probable A-fib, recent echo showed mild RV hypokinesis with increased troponins, probable sepsis with septic shock. I was consulted for further management Patient had a recent echocardiogram that showed RV dysfunction but he is also anemic requiring transfusion but not for the last 2 days. Anticoagulation has been held. Cardiology placing IVC filter however that was canceled due to his hypoxemia. Currently on 6 L nasal cannula He has also been getting intermittent dialysis by nephrology CT chest done showed 09/04/2025-showing PEs also having a large mass in the medial aspect of the right upper lobe 6 cm with mediastinal extension, lung malignancy. Bilateral pleural effusions right more than left. Hilar and mediastinal lymphadenopathy noted as well. 09/09/2025 Unable to obtain thoracentesis, fluid very small. Pending IVC filter placement. Is on 6 L nasal cannula currently sitting up in bed. Drops down to 80 on laying flat 09/10/25 IVC filter placed, still on 10L NC Vitals/I&O/Wt Last Vital Signs Temp 97.2 F L 09/09/25 19:59 Pulse 105 H 09/10/25 08:09 Resp 96 H 09/10/25 08:00 BP 125/50 09/10/25 04:00 Pulse Ox 90 09/10/25 08:00 O2 Del Method High Flow Nasal Cannula 09/10/25 08:00 O2 Flow Rate 10 09/10/25 08:00 FiO2 30 09/10/25 04:00 09/09/25 09/10/25 09/10/25 22:59 06:59 14:59 Intake Total 991.5 / 1231.5 306.125 / 1537.625 Output Total 3088 / 3088 300 / 3388 Balance -2096.5 / -1856.5 6.125 / -1850.375 Weight last 48 hrs Weight 159 lb 13.362 oz Weight 162 lb 0.636 oz Weight 152 lb 1.903 oz 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 History of pulmonary embolism: 2. Pulmonary hypertension: 3. Acute hypoxemic respiratory failure: 4. Mass of upper lobe of right lun. Pulmonary emboli: Plan: # Acute on chronic hypoxemic respiratory failure -Patient's hypoxemia is multifactorial. Probably contributed by his recent PE versus severe pulmonary hypertension and being volume overloaded. Continue 6L nasal cannula O2, IVC fiter placed 09/10- appreciate cardiology help # Probable sepsis-unclear etiology stop vancomycin and meropenem, blood cultures pending. NGTD on cultures # Severe pulmonary hypertension - He follows up with Dr. Meyer at [place]. Records are not available at this time to review all of his meds but he does appear to be taking Opsumit 10 mg p.o. daily as well as Adempas 2.5 mg p.o. 3 times daily which has been continued here. I recommend watching carefully for any hypotension episodes and starting Levophed drip earlier than later if needed. # Recurrent bilateral PEs -Patient had been on and off Eliquis and has not consistently been taking his blood thinners he says. Currently on hold due to his acute GI bleed possibly. Never had a GI scope done in the past unknown history of any ulcers. I would recommend starting Protonix IV twice daily and keeping blood thinners on hold.- # Probable GI bleed Black tarry stools -If this gets worse he may need to be transferred out for a GI consult and EGD although he would be very high risk for any procedure secondary to this pulmonary hypertension and cardiac issues being in non-STEMI this admission. # Acute on chronic kidney disease on HD -Continue dialysis per nephrology. Appreciate help. # Non-STEMI Cardiology following appreciate help # Lung mass with mediastinal lymphadenopathy -Patient is very high risk for any procedures at this time. I recommend that he has any of his procedures done at [place] where he is usual doctors are. He follows up with Dr. Alfredo # Bilateral pleural effusions right more than left -Cancelled thoracentesis- very small effusions # Peripheral artery disease # Type 2 diabetes -Watch blood sugars and monitor carefully avoid hypoglycemia. Keep blood sugars between 140-180 Goals of care-defer this to Dr. Tan at this time he is full code. Family is agreeable to being transferred to [place] if needed. Medical decision making level-high high MDM includes number and complexity of problems actively addressed during encounter, amount and/or complexity of data reviewed/ordered [ previous or external records, resulted lab(s)/test(s), ordered lab(s)/test(s), independent historian, independent test interpretation and other healthcare professional discussion] and described risk of complication, morbidity or mortality of management as documented This documentation was created by [employer] company secretary software (known for inherent company secretary error). Every effort was made to assure accuracy of company secretary. Any obvious errors or omissions should be clarified with the author of the document Telemedicine Consent Patient seen today via Telemedicine by agreement and consent of patient.? Telemedicine technology used during the visit includes audio and, as available, review of images.? The patient encounter is appropriate and reasonable under the circumstances given the patient?s particular presentation at this time.? The patient has been advised of the potential risks and limitations of this mode of treatment (including but not limited to the absence of in-person examination) and has agreed to be treated in a remote fashion in spite of them.? Any, and all, of the patient?s/patient?s family?s questions on this issue have been answered and I have made no promises or guarantees to the patient. The patient has also been advised to contact this office for worsening conditions or problems, and seek emergency medical treatment and/or call 911 if the patient deems either necessary PDMP PDMP Reviewed: Not Reviewed Attestations Medical Necessity Statement*: okay to be transfered to [facility] from pulmonary stand point Coding Level of Care Code 10494 Diagnoses History of pulmonary embolism Z86.711 Pulmonary hypertension I27.20 Acute hypoxemic respiratory failure J96.01 Mass of upper lobe of right lung R91.8 Pulmonary emboli I26.99
[2025-09-10] MEDS: methylPREDNISolone sod succ 40 mg/mL INJ IVP (10:41)
[2025-09-10] MEDS: bumetanide 0.25 mg/mL SDV 4 mL 1 MG IVP (10:41)
--- NOTE | 2025-09-10 10:57 | PC.NURSE ---
Pt's BP has had MAP 60-64 consistently. Levophed restarted.
--- NOTE | 2025-09-10 11:43 | P.PN_ITS ---
Subjective 2 Subjective: on 10 L Nc Medications: Reviewed: Yes Vitals/I&O/Wt Last Vital Signs Temp 98.8 F 09/10/25 07:30 Pulse 90 09/10/25 11:17 Resp 16 09/10/25 11:17 BP 104/41 09/10/25 10:30 Pulse Ox 94 09/10/25 11:17 O2 Del Method High Flow Nasal Cannula 09/10/25 11:17 O2 Flow Rate 10 09/10/25 11:17 FiO2 30 09/10/25 04:00 09/09/25 09/10/25 09/10/25 22:59 06:59 14:59 Intake Total 991.5 / 1231.5 306.125 / 1537.625 0 / 0 Output Total 3088 / 3088 300 / 3388 Balance -2096.5 / -1856.5 6.125 / -1850.375 0 / 0 Weight last 48 hrs Weight 72.5 kg Weight 73.5 kg Weight 69 kg Physical Exam 2 Narrative: awake, alert , no distress No JVD PEERLA S1S2 RRR Lungs with [place] crackles Abd soft , non tender Ext no edema no skin rash Data 09/10/25 04:10 09/10/25 04:10 Micro: Microbiology 09/04/25 15:38 Blood Culture - Final Blood NO GROWTH AFTER 5 DAYS 09/04/25 15:38 Blood Culture - Final Blood NO GROWTH AFTER 5 DAYS A&P Assessment and plan 1. End stage renal disease on dialysis: Plan: 1. End-stage renal disease: Recently initiated on hemodialysis, patient now is volume overloaded but also is hypotensive. HD tomorrow 2. Acute resp failure ,despite aggressive UF with HD , --> multifactorial , 3. Severe anemia, acute on chronic, s/p 2 units PRBCs, s/p epogen 4. Hypokalemia, improved 5. Elevated troponin, likely demand ischemia, management per primary team 6. h/oTAVR 7. H/O PE - anticoagulation held due to reccurrent anemia , s/p IVC filter placement Today's evaluation. Time spent 40 minutes. PDMP PDMP Reviewed: Not Reviewed Attestations 2 [facility] Ne[facility]*: [facility] C[facility] Level of Care Code Acute Code for Chg Fwd Diagnoses End stage renal disease on dialysis N18.6; Z99.2
--- NOTE | 2025-09-10 11:55 | P.PN_ITS ---
Subjective 2 Subjective: Patient is laying flat sleeping better today in the bed Status post IVC filter Medications: Reviewed: Yes Vitals/I&O/Wt Last Vital Signs Temp 98.8 F 09/10/25 07:30 Pulse 90 09/10/25 11:17 Resp 16 09/10/25 11:17 BP 104/41 09/10/25 10:30 Pulse Ox 94 09/10/25 11:17 O2 Del Method High Flow Nasal Cannula 09/10/25 11:17 O2 Flow Rate 10 09/10/25 11:17 FiO2 30 09/10/25 04:00 09/09/25 09/10/25 09/10/25 22:59 06:59 14:59 Intake Total 991.5 / 1231.5 306.125 / 1537.625 0 / 0 Output Total 3088 / 3088 300 / 3388 Balance -2096.5 / -1856.5 6.125 / -1850.375 0 / 0 Weight last 48 hrs Weight 159 lb 13.362 oz Weight 162 lb 0.636 oz Weight 152 lb 1.903 oz Physical Exam 2 Narrative: GENERAL: Patient is alert, awake and oriented x3. He is laying in the bed with oxygen on HEART: Regular S1 and S2. No murmur, rub or gallop. LUNGS: Decreased breath sound but clear no crepitation. CENTRAL NERVOUS SYSTEM: Grossly nonfocal. Const: COMMON NORMALS: alert Resp: COMMON NORMALS: clear to auscultation bilaterally AUSCULTATION: clear to auscultation bilaterally Neuro: SENSORIUM/ORIENTATION: Yes alert Data 09/10/25 04:10 09/10/25 04:10 Micro: Microbiology 09/04/25 15:38 Blood Culture - Final Blood NO GROWTH AFTER 5 DAYS 09/04/25 15:38 Blood Culture - Final Blood NO GROWTH AFTER 5 DAYS A&P Assessment and plan 1. Pulmonary emboli: S/p IVC filter now due to inability of taking anticoagulation 2. Troponin level elevated: 3. S/P TAVR (transcatheter aortic valve replacement): 4. Diabetes: 5. End stage renal disease on dialysis: 6. Acute on chronic anemia: Plan: Appear to be compensated state of heart failure and respiratory failure advised\continue 1 more day of IV diuresis will switch to p.o. from tomorrow PDMP PDMP Reviewed: Not Reviewed Attestations 2 Medical Necessity Statement*: As per medicine and pulmonology Coding Level of Care Code Acute Code for Chg Fwd Diagnoses Pulmonary emboli I26.99 Troponin level elevated R79.89 S/P TAVR (transcatheter aortic valve replacement) Z95.2 Diabetes E11.9 End stage renal disease on dialysis N18.6; Z99.2 Acute on chronic anemia D64.9
--- NOTE | 2025-09-10 19:10 | P.PN_ITS ---
Subjective 2 Subjective: Patient seen this morning, currently alert oriented x 3, following all commands, denies any fevers, chills, cough, no lightheaded, dizziness, is on 10 L, but is comfortable he is on Levophed at 2, he required Levophed during dialysis Vitals/I&O/Wt Last Vital Signs Temp 98.3 F 09/10/25 13:30 Pulse 86 09/10/25 15:00 Resp 22 H 09/10/25 15:00 BP 115/51 09/10/25 15:00 Pulse Ox 94 09/10/25 15:20 O2 Del Method High Flow Nasal Cannula 09/10/25 15:00 O2 Flow Rate 10 09/10/25 15:20 FiO2 30 09/10/25 04:00 09/10/25 09/10/25 09/10/25 06:59 14:59 22:59 Intake Total 306.125 / 1537.625 818 / 818 Output Total 300 / 3388 350 / 350 Balance 6.125 / -1850.375 468 / 468 Weight last 48 hrs Weight 72.5 kg Weight 73.5 kg Weight 69 kg Physical Exam 2 Const: COMMON NORMALS: no acute distress and patient oriented x3 Resp: COMMON NORMALS: normal respiratory effort, No retractions, No use of accessory muscles and clear to auscultation bilaterally AUSCULTATION: clear to auscultation bilaterally Cardio: COMMON NORMALS: regular rate, regular rhythm, S1 normal heart sound present and S2 normal heart sound present RATE: regular rate RHYTHM: r egular rhythm HEART SOUNDS: S1 normal heart sound present and S2 normal heart sound present GI: COMMON NORMALS: Normal to inspection, nondistended, normoactive bowel sounds present and non-tender Extremity: COMMON NORMALS: no pedal edema Neuro: COMMON NORMALS: patient oriented x3 Psych: COMMON NORMALS: mental status grossly normal Data 09/10/25 04:10 09/10/25 04:10 Micro: Microbiology 09/04/25 15:38 Blood Culture - Final Blood NO GROWTH AFTER 5 DAYS 09/04/25 15:38 Blood Culture - Final Blood NO GROWTH AFTER 5 DAYS A&P Assessment and plan 1. Chest pain: 2. Peripheral arterial disease: 3. Pulmonary emboli: 4. Type 2 diabetes mellitus with foot ulcer: 5. GI bleed: 6. Acute kidney injury superimposed on CKD: 7. End stage renal disease on dialysis: 8. Symptomatic anemia: 9. NSTEMI (non-ST elevated myocardial infarction): 10. Shock: Plan: Chest pain - With NSTEMI - With acute on chronic anemia, concern for GI bleed, thrombocytopenia, elevated INR -Type I versus type II NSTEMI Plan -Patient is on Eliquis, will hold for now, given patient's complications as above, discussed the risks and benefits of anticoagulant therapy, he voiced understanding, all questions answered, agreed to hold anticoagulant therapy for now -Certainly this is a difficult situation, but if he does develop recurrent chest pain, or EKG changes then we might have to consider trial of anticoagulant therapy -Aspirin, statin -Cardiac echo CONCLUSIONS 1. Normal left ventricular cavity size and systolic function, EF 73%. 2. Mild concentric left ventricular hyypertrophy. 3. Mild right ventricular enlargement and mild right ventricular -Serial Ekg, start troponins, telemetry monitoring - Stress testing based on clinical progress versus outpatient Thrombocytopenia, haptoglobin 220, LDH 255, sed rate 11, peripheral smear Acute hypoxic respiratory failure, requiring 10 L -Negative that 7.8 L so far - Fluid overload, bilateral effusions, pulmonary edema - Bumex 1 mg IV 12 hours with metolazone, - Nephrology consulted for dialysis - History of pulmonary embolism, anticoagulant therapy currently on hold due to acute anemia, with plans of IVC filter placement delayed given acute respiratory failure - Will have to hold off on anticoagulant therapy due to acute persistent anemia, discussed risks and benefits with patient, he voiced understanding, all questions answered, agreed to proceed - Solu-Medrol de-escalated to 40 mg daily - Vancomycin will continue vancomycin for chronic IV antibiotics for diabetic foot infection - Meropenem, will likely de-escalate in the next 24 hours, de-escalate to Rocephin - CT angio of the chest CT/CT angio chest PE protcl [id number] IMPRESSION: 1. There are stable filling defects in the 2nd and 3rd order branches of the left lower lobe pulmonary artery. Relatively low-density associated with the these filling defects is present and there is calcific plaque associated with the right and left main pulmonary arteries extending into the proximal branches. The filling defects likely represent evidence of chronic emboli. No additional new emboli are identified. The RV/LV ratio is 1.2 which is stable on interval comparison. 2. 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 No significant change is noted 3. There has been interval increase in the size of the moderate-sized right-sided pleural effusion and mild increase in the small left-sided pleural effusion is also noted. Compressive atelectasis in the right lower lobe secondary to the right-sided pleural effusion is present. 3. 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 This finding was also present on the prior CT examination. 4. Extensive coronary artery calcification is present. 5. Findings associated with the liver is suggestive of cirrhosis. 6. Cholelithiasis. Right-sided pleural effusion, thoracentesis, not enough fluid to tap monitor Acute on chronic anemia, concerns for slow GI bleed, he is occult positive stools -Hemoglobin 8.1, INR 1.9, platelet count, 54,000 -EGD July 2025 showed moderate gastritis of the abdomen, several small erosions and a segment of bleeding, biopsies taken Endo Clip was placed in one of the biopsy sites as could oozing was noted -Colonoscopy status post polypectomy Plan -CT chest abdomen pelvis with IV contrast no acute bleed ? Status post 4 units PRBC - Monitor hemoglobin -Monitor hemodynamics closely -Status post IVC filter placement -Will consider consulting general surgery, for repeat EGD based on clinical progress, but given acute hypoxic respiratory failure, is not the best candidate given risk of morbidity and mortality, less urgently required -Protonix, Carafate History of pulmonary embolism - On Eliquis, currently on hold due to acute anemia, will likely discontinue on discharge due to persistent anemia -Recurrent anemia requiring blood transfusions - Cardiology consulted for IVC filter placement, status post IVC filter placement Advanced arterial vascular disease in the abdomen CT/CT abdomen pelvis w con* [id number] IMPRESSION: 4. Advanced arterial vascular disease is present throughout the abdomen and pelvis as described. No infrarenal abdominal aortic aneurysm. 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 Superior mesenteric artery remains patent. 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 Plan - Aspirin, statin - Avoid hypotension - Will need to follow-up with vascular surgery as outpatient Shock -Monitor in ICU, MAP in 65 -Patient might require Levophed - Likely multifactorial - With acute on chronic anemia - Possible sepsis? - Continue home vancomycin and Rocephin Sepsis? - Blood cultures so far no growth - UA - Cultures from diabetic foot infection Diabetic foot infection - Left foot - Wound care - Podiatry consulted - Vancomycin, Rocephin End-stage renal disease on dialysis -Nephrology consulted -Plans on dialysis today Weakness, fatigue, likely multifactorial History of pulmonary hypertension continue home medications plan for today IV diureses, DOT, currently on 10 L wean down oxygen, wean off pressors PDMP PDMP Reviewed: Not Reviewed Attestations 2 Medical Necessity Statement*: Patient requires hospitalization for hypoxic respiratory failure Diagnoses Chest pain R07.9 Peripheral arterial disease I73.9 Pulmonary emboli I26.99 Type 2 diabetes mellitus with foot ulcer E11.621; L97.509 GI bleed K92.2 Acute kidney injury superimposed on CKD N17.9; N18.9 End stage renal disease on dialysis N18.6; Z99.2 Symptomatic anemia D64.9 NSTEMI (non-ST elevated myocardial infarction) I21.4 Shock R57.9
--- NOTE | 2025-09-10 19:12 | PC.NURSE ---
Addendum entered by Larua Saleh RN 09/11/25 19:29: Levophed was restarted briefly this am. It was turned off when Midodrine was started. Original Note: Shift summary: Pt very pleasant and hard of hearing. Sinus, first degree block noted on monitor. Blood sugars have been elevated, in the 300's. He has an excellent appetite, eats everything on his trays. Lungs auscultated clear. Pt utilizing 10 lpm/HFNC. Unable to wean O2 down today. He was willing to working with PT. Urine output of 650 ml this shift.
[2025-09-11] VITALS (62 sets, daily range): BP systolic 93–145; BP diastolic 36–75; PULSE 73–101; RESP 13–45; TEMP 36.6–37.1; O2SAT 89–100; BMI 26.9
[2025-09-11 05:01] LABS: Hematocrit 21.9 % (37-53); Hemoglobin 6.90 g/dL (11.27-16.99); Mean Corpuscular HGB Conc 31.5 g/dL (30-55); Mean Corpuscular Hemoglobin 29.4 pg (27-33); Mean Corpuscular Volume 93.2 fl (82-101); Nucleated Red Blood Cells % 0 %; Platelet Count 66 10^3/cmm (157-399); Red Blood Count 2.35 10^6/uL (3.85-5.65); White Blood Count 12.93 10^3/uL (3.29-11.43)
[2025-09-11] MEDS: sucralfate 1 gm/10 mL Oral Liq UDC PO ×4 (05:08→23:12)
[2025-09-11] MEDS: RIOCIGUAT 2.5 MG 2.5 EACH PO ×3 (05:08→20:30)
[2025-09-11] MEDS: insulin glargine 100 units/1 mL 15 UNIT SUBCUT ×2 (05:08→17:32)
[2025-09-11] MEDS: MACITENTAN 10 MG 10 EACH PO (05:09)
[2025-09-11] MEDS: ciprofloxacin-dexameth Otic Susp 7.5 mL Btl 4 DROP EAR-BOTH ×2 (05:10→17:31)
[2025-09-11 05:31] LABS: Alanine Aminotransferase 32 U/L (0-41); Albumin Level 2.9 g/dL (3.5-5.2); Alkaline Phosphatase 210 U/L (40-130); Anion Gap 17.9 (5-19); Aspartate Amino Transferase 68 U/L (0-40); Blood Urea Nitrogen 79 mg/dL (8-23); Calcium 8.1 mg/dL (8.5-10.5); Carbon Dioxide 25 mmol/L (22-29); Chloride 97 mmol/L (98-107); Creatinine Clr Calc Pharmacy 20.6106; Globulin 1.9 g/dL (1.3-4.6); Glucose 247 mg/dL (65-115); Osmolality Calculated 312 mOsm/kg (285-295); Potassium 4.9 mmol/L (3.5-5.1); Sodium 135 mmol/L (136-145); Total Protein 4.8 g/dL (6.6-8.7)
[2025-09-11 05:33] LABS: NT Pro B Type Natriuretic Pept 10723 pg/mL (0-125)
[2025-09-11] MEDS: pantoprazole 40 mg SDV IVP ×2 (08:20→20:32)
[2025-09-11 08:23] LABS: Ferritin 273 ng/mL (30-400)
[2025-09-11 09:03] LABS: INR 1.07 (0.8-1.2); Prothrombin Time 14.70 SECONDS (12.1-14.9)
[2025-09-11 09:04] LABS: Partial Thromboplastin Time 36.5 SECONDS (23.9-36.7)
[2025-09-11] MEDS: methylPREDNISolone sod succ 40 mg/mL INJ IVP (09:59)
[2025-09-11] MEDS: bumetanide 0.25 mg/mL SDV 4 mL 1 MG IVP (09:59)
[2025-09-11] MEDS: heparin, porcine 1,000 unit/mL INJ 10 mL 10000 UNIT INTRACATH (10:35)
--- NOTE | 2025-09-11 10:54 | PC.SOCIAL ---
IMM Update pg 2 of IMM Updated and reviewed w/ patient. Copy provided and copy dated, initialed and placed in chart.
--- NOTE | 2025-09-11 14:39 | P.PN_ITS ---
Subjective 2 Subjective: kingston Wiseman is a 70 year old male with past medical history of pulmonary hypertension, status post TAVR, end-stage renal disease on dialysis, history of PE on Eliquis, COPD, lung mass with mediastinal adenopathy, chronic congestive heart failure initially on 09/04/2025 with weakness fatigue and chest pain found to have non-STEMI, anemia, pulmonary emboli 2nd and 3rd branches of lower lobes, lower extremity DVT, probable A-fib, recent echo showed mild RV hypokinesis with increased troponins, probable sepsis with septic shock. I was consulted for further management Patient had a recent echocardiogram that showed RV dysfunction but he is also anemic requiring transfusion but not for the last 2 days. Anticoagulation has been held. Cardiology placing IVC filter however that was canceled due to his hypoxemia. Currently on 6 L nasal cannula He has also been getting intermittent dialysis by nephrology CT chest done showed 09/04/2025-showing PEs also having a large mass in the medial aspect of the right upper lobe 6 cm with mediastinal extension, lung malignancy. Bilateral pleural effusions right more than left. Hilar and mediastinal lymphadenopathy noted as well. 09/09/2025 Unable to obtain thoracentesis, fluid very small. Pending IVC filter placement. Is on 6 L nasal cannula currently sitting up in bed. Drops down to 80 on laying flat 09/10/25 IVC filter placed, still on 10L NC 09/11/2025 On 9 L nasal cannula resting comfortably no cough or shortness of breath worsening Vitals/I&O/Wt Last Vital Signs Temp 98.8 F 09/11/25 14:04 Pulse 91 09/11/25 14:04 Resp 16 09/11/25 14:04 BP 139/62 09/11/25 14:04 Pulse Ox 94 09/11/25 14:04 O2 Del Method High Flow Nasal Cannula 09/11/25 14:00 O2 Flow Rate 8 09/11/25 14:00 FiO2 30 09/10/25 04:00 09/10/25 09/11/25 09/11/25 22:59 06:59 14:59 Intake Total 360 / 1178 1850 / 1850 Output Total 300 / 650 450 / 1100 3210 / 3210 Balance 60 / 528 -450 / 78 -1360 / -1360 Weight last 48 hrs Weight 158 lb 11.725 oz Weight 156 lb 15.506 oz Weight 159 lb 13.362 oz Weight 162 lb 0.636 oz 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 History of pulmonary embolism: 2. Pulmonary hypertension: 3. Acute hypoxemic respiratory failure: 4. Mass of upper lobe of right lun. Pulmonary emboli: Plan: # Acute on chronic hypoxemic respiratory failure -Patient's hypoxemia is multifactorial. Probably contributed by his recent PE versus severe pulmonary hypertension and being volume overloaded. Continue 9L nasal cannula O2, IVC fiter placed 09/10- appreciate cardiology help - Change Solu-Medrol to prednisone 40 daily-Will wean off slowly over the next few days. I do not think this is helping him much at this time anyway. # Probable sepsis-unclear etiology stop vancomycin and meropenem, blood cultures pending. NGTD on cultures reviewed 09/07/2025 # Severe pulmonary hypertension - He follows up with Dr. Meyer at [facility]. Records are not available at this time to review all of his meds but he does appear to be taking Opsumit 10 mg p.o. daily as well as Adempas 2.5 mg p.o. 3 times daily which has been continued here. I recommend watching carefully for any hypotension episodes and starting Levophed drip earlier than later if needed. # Recurrent bilateral PEs -Patient had been on and off Eliquis and has not consistently been taking his blood thinners he says. Currently on hold due to his acute GI bleed possibly. Never had a GI scope done in the past unknown history of any ulcers. I would recommend starting Protonix IV twice daily and keeping blood thinners on hold.-Status post IVC filter # Probable GI bleed Black tarry stools Continue IV Protonix twice daily # Acute on chronic kidney disease on HD -Continue dialysis per nephrology. Appreciate help. # Non-STEMI Cardiology following appreciate help # Lung mass with mediastinal lymphadenopathy -Patient is very high risk for any procedures at this time. I recommend that he has any of his procedures done at [facility] where he is usual doctors are. He follows up with Dr. Alfredo # Bilateral pleural effusions right more than left -Cancelled thoracentesis- very small effusions # Peripheral artery disease # Type 2 diabetes -Watch blood sugars and monitor carefully avoid hypoglycemia. Keep blood sugars between 140-180 Goals of care-defer this to Dr. Tan at this time he is full code. Family is agreeable to being transferred to [facility] if needed. Medical decision making level-low low MDM includes number and complexity of problems actively addressed during encounter, amount and/or complexity of data reviewed/ordered [ previous or external records, resulted lab(s)/test(s), ordered lab(s)/test(s), independent historian, independent test interpretation and other healthcare professional discussion] and described risk of complication, morbidity or mortality of management as documented This documentation was created by [employer] java software architect software (known for inherent java software architect error). Every effort was made to assure accuracy of java software architect. Any obvious errors or omissions should be clarified with the author of the document Telemedicine Consent Patient seen today via Telemedicine by agreement and consent of patient.? Telemedicine technology used during the visit includes audio and, as available, review of images.? The patient encounter is appropriate and reasonable under the circumstances given the patient?s particular presentation at this time.? The patient has been advised of the potential risks and limitations of this mode of treatment (including but not limited to the absence of in-person examination) and has agreed to be treated in a remote fashion in spite of them.? Any, and all, of the patient?s/patient?s family?s questions on this issue have been answered and I have made no promises or guarantees to the patient. The patient has also been advised to contact this office for worsening conditions or problems, and seek emergency medical treatment and/or call 911 if the patient deems either necessary PDMP PDMP Reviewed: Not Reviewed Attestations 2 Medical Necessity Statement*: Could be discharged in the next couple of days Coding Level of Care Code 61610 Diagnoses History of pulmonary embolism Z86.711 Pulmonary hypertension I27.20 Acute hypoxemic respiratory failure J96.01 Mass of upper lobe of right lung R91.8 Pulmonary emboli I26.99
--- NOTE | 2025-09-11 15:33 | P.PN_ITS ---
Subjective 2 Subjective: s/p HD Medications: Reviewed: Yes Vitals/I&O/Wt Last Vital Signs Temp 98.7 F 09/11/25 14:35 Pulse 89 09/11/25 14:35 Resp 28 H 09/11/25 14:35 BP 130/63 09/11/25 14:35 Pulse Ox 93 09/11/25 14:35 O2 Del Method High Flow Nasal Cannula 09/11/25 14:30 O2 Flow Rate 8 09/11/25 14:30 FiO2 30 09/10/25 04:00 09/11/25 09/11/25 09/11/25 06:59 14:59 22:59 Intake Total 1850 / 1850 Output Total 450 / 1100 3210 / 3210 Balance -450 / 78 -1360 / -1360 Weight last 48 hrs Weight 72 kg Weight 71.2 kg Weight 72.5 kg Weight 73.5 kg Physical Exam 2 Narrative: awake, alert , no distress No JVD PEERLA S1S2 RRR Lungs with [place] crackles Abd soft , non tender Ext no edema no skin rash Data 09/11/25 04:51 09/11/25 04:51 A&P Assessment and plan 1. End stage renal disease on dialysis: Plan: 1. End-stage renal disease: Recently initiated on hemodialysis, patient now is volume overloaded but also is hypotensive. HD today 2. Acute resp failure ,despite aggressive UF with HD , --> multifactorial , 3. Severe anemia, acute on chronic, plan for 2 units PRBCs, s/p epogen 4. Hypokalemia, improved 5. Elevated troponin, likely demand ischemia, management per primary team 6. h/oTAVR 7. H/O PE - anticoagulation held due to reccurrent anemia , s/p IVC filter placement Today's evaluation. Time spent 40 minutes. PDMP PDMP Reviewed: Not Reviewed Attestations 2 Medical Necessity Statement*: per [facility] Coding Level of Care Code Acute Code for Chg Fwd Diagnoses End stage renal disease on dialysis N18.6; Z99.2
--- NOTE | 2025-09-11 16:01 | P.PN_ITS ---
Subjective 2 Subjective: Patient was seen this morning, currently alert oriented x 3, following commands, no fevers, chills, no cough, no lightheadedness, no dizziness Vitals/I&O/Wt Last Vital Signs Temp 98.7 F 09/11/25 14:35 Pulse 92 09/11/25 15:53 Resp 20 H 09/11/25 15:53 BP 130/63 09/11/25 14:35 Pulse Ox 92 09/11/25 15:53 O2 Del Method High Flow Nasal Cannula 09/11/25 15:53 O2 Flow Rate 8 09/11/25 15:53 FiO2 30 09/10/25 04:00 09/11/25 09/11/25 09/11/25 06:59 14:59 22:59 Intake Total 1850 / 1850 Output Total 450 / 1100 3210 / 3210 Balance -450 / 78 -1360 / -1360 Weight last 48 hrs Weight 72 kg Weight 71.2 kg Weight 72.5 kg Weight 73.5 kg Physical Exam 2 Const: COMMON NORMALS: no acute distress and patient oriented x3 Resp: COMMON NORMALS: normal respiratory effort, No retractions, No use of accessory muscles and clear to auscultation bilaterally AUSCULTATION: clear to auscultation bilaterally Cardio: COMMON NORMALS: regular rate, regular rhythm, S1 normal heart sound present and S2 normal heart sound present RATE: regular rate RHYTHM: r egular rhythm HEART SOUNDS: S1 normal heart sound present and S2 normal heart sound present GI: COMMON NORMALS: Normal to inspection, nondistended, normoactive bowel sounds present and non-tender Extremity: COMMON NORMALS: no calf tenderness and no pedal edema Neuro: COMMON NORMALS: patient oriented x3 Psych: COMMON NORMALS: mental status grossly normal Data 09/11/25 04:51 09/11/25 04:51 A&P Assessment and plan 1. Chest pain: 2. Peripheral arterial disease: 3. Pulmonary emboli: 4. Type 2 diabetes mellitus with foot ulcer: 5. GI bleed: 6. Acute kidney injury superimposed on CKD: 7. End stage renal disease on dialysis: 8. Symptomatic anemia: 9. NSTEMI (non-ST elevated myocardial infarction): 10. Shock: Plan: Chest pain - With NSTEMI - With acute on chronic anemia, concern for GI bleed, thrombocytopenia, elevated INR -Type I versus type II NSTEMI Plan -Patient is on Eliquis, will hold for now, given patient's complications as above, discussed the risks and benefits of anticoagulant therapy, he voiced understanding, all questions answered, agreed to hold anticoagulant therapy for now -Certainly this is a difficult situation, but if he does develop recurrent chest pain, or EKG changes then we might have to consider trial of anticoagulant therapy -Aspirin, statin -Cardiac echo CONCLUSIONS 1. Normal left ventricular cavity size and systolic function, EF 73%. 2. Mild concentric left ventricular hyypertrophy. 3. Mild right ventricular enlargement and mild right ventricular -Serial Ekg, start troponins, telemetry monitoring - Stress testing based on clinical progress versus outpatient Thrombocytopenia, haptoglobin 220, LDH 255, sed rate 11, peripheral smear Acute hypoxic respiratory failure, requiring 10 L -Negative that 7.8 L so far - Fluid overload, bilateral effusions, pulmonary edema - Bumex 1 mg IV 12 hours with metolazone, - Nephrology consulted for dialysis - History of pulmonary embolism, anticoagulant therapy currently on hold due to acute anemia, with plans of IVC filter placement delayed given acute respiratory failure - Will have to hold off on anticoagulant therapy due to acute persistent anemia, discussed risks and benefits with patient, he voiced understanding, all questions answered, agreed to proceed - Solu-Medrol de-escalated to 40 mg daily - Vancomycin will continue vancomycin for chronic IV antibiotics for diabetic foot infection - Meropenem, will likely de-escalate in the next 24 hours, de-escalate to Rocephin - CT angio of the chest CT/CT angio chest PE protcl [id number] IMPRESSION: 1. There are stable filling defects in the 2nd and 3rd order branches of the left lower lobe pulmonary artery. Relatively low-density associated with the these filling defects is present and there is calcific plaque associated with the right and left main pulmonary arteries extending into the proximal branches. The filling defects likely represent evidence of chronic emboli. No additional new emboli are identified. The RV/LV ratio is 1.2 which is stable on interval comparison. 2. 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 No significant change is noted 3. There has been interval increase in the size of the moderate-sized right-sided pleural effusion and mild increase in the small left-sided pleural effusion is also noted. Compressive atelectasis in the right lower lobe secondary to the right-sided pleural effusion is present. 3. 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 This finding was also present on the prior CT examination. 4. Extensive coronary artery calcification is present. 5. Findings associated with the liver is suggestive of cirrhosis. 6. Cholelithiasis. Right-sided pleural effusion, thoracentesis, not enough fluid to tap monitor Acute on chronic anemia, concerns for slow GI bleed, he is occult positive stools -Hemoglobin 8.1, INR 1.9, platelet count, 54,000 -EGD July 2025 showed moderate gastritis of the abdomen, several small erosions and a segment of bleeding, biopsies taken Endo Clip was placed in one of the biopsy sites as could oozing was noted -Colonoscopy status post polypectomy Plan -CT chest abdomen pelvis with IV contrast no acute bleed ? Status post 4 units PRBC - Monitor hemoglobin -Monitor hemodynamics closely -Status post IVC filter placement -Will consider consulting general surgery, for repeat EGD based on clinical progress, but given acute hypoxic respiratory failure, is not the best candidate given risk of morbidity and mortality, less urgently required -Protonix, Carafate History of pulmonary embolism - On Eliquis, currently on hold due to acute anemia, will likely discontinue on discharge due to persistent anemia -Recurrent anemia requiring blood transfusions - Cardiology consulted for IVC filter placement, status post IVC filter placement Advanced arterial vascular disease in the abdomen CT/CT abdomen pelvis w con* [id number] IMPRESSION: 4. Advanced arterial vascular disease is present throughout the abdomen and pelvis as described. No infrarenal abdominal aortic aneurysm. 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 Superior mesenteric artery remains patent. 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 Plan - Aspirin, statin - Avoid hypotension - Will need to follow-up with vascular surgery as outpatient Shock -Monitor in ICU, MAP in 65 -Patient might require Levophed - Likely multifactorial - With acute on chronic anemia - Possible sepsis? - Continue home vancomycin and Rocephin Sepsis? - Blood cultures so far no growth - UA - Cultures from diabetic foot infection Diabetic foot infection - Left foot - Wound care - Podiatry consulted - Immanuel Bello End-stage renal disease on dialysis -Nephrology consulted -Plans on dialysis today Dialysis catheter is uncuffed, -risk of infection dialysis catheter is not replaced, risk including but not limited to sepsis, blood bloodstream infection, endocarditis - Discussed with patient the risk and benefits of replacing dialysis catheter, morbidity and mortality associated with procedure given his current respiratory status - For now he has accepted risks of not replacing dialysis catheter, he voiced understanding, all questions, agreed to proceed Weakness, fatigue, likely multifactorial History of pulmonary hypertension continue home medications plan for today will require 1 unit PRBC PDMP PDMP Reviewed: Not Reviewed Attestations 2 Medical Necessity Statement*: Course hospitalization for acute anemia, acute hypoxic respiratory failure Diagnoses Chest pain R07.9 Peripheral arterial disease I73.9 Pulmonary emboli I26.99 Type 2 diabetes mellitus with foot ulcer E11.621; L97.509 GI bleed K92.2 Acute kidney injury superimposed on CKD N17.9; N18.9 End stage renal disease on dialysis N18.6; Z99.2 Symptomatic anemia D64.9 NSTEMI (non-ST elevated myocardial infarction) I21.4 Shock R57.9
--- NOTE | 2025-09-11 19:20 | PC.NURSE ---
Shift summary: Pt remains in sinus, first degree block on monitor. His O2 requirements decreased from 10 to 8 lpm/HFNC. Lungs remain clear to auscultation. [place], [id number] today. He received dialysis today. His total removal was 1 liter. He became hypotensive during and was admin a 500ml bolus. his HGB low, 6.9, Two units of PRBCs ordered. Second unit infusing now. He continues to have an excellent appetite. His urine output was 700 ml today. Family attentive at bedside off and on throughout shift.
[2025-09-11] MEDS: vancomycin 500 MG in sodium chloride 0.9% (plus) 100 ML 200 MG IV (20:32)
[2025-09-12] VITALS (39 sets, daily range): BP systolic 99–157; BP diastolic 43–75; PULSE 75–168; RESP 6–31; TEMP 36.9; O2SAT 90–99
[2025-09-12] MEDS: MACITENTAN 10 MG 10 EACH PO (04:35)
[2025-09-12] MEDS: RIOCIGUAT 2.5 MG 2.5 EACH PO ×3 (04:35→20:34)
[2025-09-12] MEDS: ciprofloxacin-dexameth Otic Susp 7.5 mL Btl 4 DROP EAR-BOTH ×2 (04:35→17:33)
[2025-09-12 04:46] LABS: Hematocrit 27.1 % (37-53); Hemoglobin 8.60 g/dL (11.27-16.99); Mean Corpuscular HGB Conc 31.7 g/dL (30-55); Mean Corpuscular Hemoglobin 28.8 pg (27-33); Mean Corpuscular Volume 90.6 fl (82-101); Nucleated Red Blood Cells % 0 %; Platelet Count 74 10^3/cmm (157-399); Red Blood Count 2.99 10^6/uL (3.85-5.65); White Blood Count 11.66 10^3/uL (3.29-11.43)
[2025-09-12 05:07] LABS: Alanine Aminotransferase 36 U/L (0-41); Albumin Level 2.9 g/dL (3.5-5.2); Alkaline Phosphatase 209 U/L (40-130); Aspartate Amino Transferase 53 U/L (0-40); Blood Urea Nitrogen 55 mg/dL (8-23); Calcium 8.1 mg/dL (8.5-10.5); Carbon Dioxide 26 mmol/L (22-29); Chloride 97 mmol/L (98-107); Creatinine Clr Calc Pharmacy 32.4421; Globulin 1.7 g/dL (1.3-4.6); Glucose 239 mg/dL (65-115); Osmolality Calculated 299 mOsm/kg (285-295); Sodium 133 mmol/L (136-145); Total Protein 4.6 g/dL (6.6-8.7)
[2025-09-12 05:12] LABS: NT Pro B Type Natriuretic Pept 8425 pg/mL (0-125)
[2025-09-12 05:17] LABS: Anion Gap 14.6 (5-19); Potassium 4.6 mmol/L (3.5-5.1)
[2025-09-12] MEDS: sucralfate 1 gm/10 mL Oral Liq UDC PO ×4 (05:36→23:43)
[2025-09-12] MEDS: insulin glargine 100 units/1 mL 15 UNIT SUBCUT ×2 (05:36→17:32)
[2025-09-12] MEDS: pantoprazole 40 mg SDV IVP ×2 (08:23→20:34)
[2025-09-12] MEDS: bumetanide 0.25 mg/mL SDV 4 mL 1 MG IVP (10:20)
--- NOTE | 2025-09-12 15:03 | P.PN_ITS ---
Subjective 2 Subjective: Patient was seen this morning, currently alert oriented x 3, following all commands, denies any fevers, chills, no cough, no lightheadedness, no dizziness Vitals/I&O/Wt Last Vital Signs Temp 98.5 F 09/12/25 04:00 Pulse 87 09/12/25 14:03 Resp 14 09/12/25 14:03 BP 137/58 09/12/25 14:03 Pulse Ox 90 09/12/25 14:03 O2 Del Method High Flow Nasal Cannula 09/12/25 11:19 O2 Flow Rate 6 09/12/25 11:19 FiO2 30 09/10/25 04:00 09/12/25 09/12/25 09/12/25 06:59 14:59 22:59 Intake Total 600 / 600 Output Total 615 / 3975 100 / 100 Balance -615 / -1295 500 / 500 Weight last 48 hrs Weight 78.834 kg Weight 72 kg Weight 71.2 kg Physical Exam 2 Const: COMMON NORMALS: no acute distress and patient oriented x3 Resp: COMMON NORMALS: normal respiratory effort, No retractions, No use of accessory muscles and clear to auscultation bilaterally AUSCULTATION: clear to auscultation bilaterally Cardio: COMMON NORMALS: regular rate, regular rhythm, S1 normal heart sound present and S2 normal heart sound present RATE: regular rate RHYTHM: r egular rhythm HEART SOUNDS: S1 normal heart sound present and S2 normal heart sound present GI: COMMON NORMALS: Normal to inspection, nondistended, normoactive bowel sounds present and non-tender Extremity: COMMON NORMALS: no pedal edema Neuro: COMMON NORMALS: patient oriented x3 Psych: COMMON NORMALS: mental status grossly normal Data 09/12/25 04:34 09/12/25 04:34 A&P Assessment and plan 1. Chest pain: 2. Peripheral arterial disease: 3. Pulmonary emboli: 4. Type 2 diabetes mellitus with foot ulcer: 5. GI bleed: 6. Acute kidney injury superimposed on CKD: 7. End stage renal disease on dialysis: 8. Symptomatic anemia: 9. NSTEMI (non-ST elevated myocardial infarction): 10. Shock: Plan: Chest pain - With NSTEMI - With acute on chronic anemia, concern for GI bleed, thrombocytopenia, elevated INR -Type I versus type II NSTEMI Plan -Patient is on Eliquis, will hold for now, given patient's complications as above, discussed the risks and benefits of anticoagulant therapy, he voiced understanding, all questions answered, agreed to hold anticoagulant therapy for now -Certainly this is a difficult situation, but if he does develop recurrent chest pain, or EKG changes then we might have to consider trial of anticoagulant therapy -Aspirin, statin -Cardiac echo CONCLUSIONS 1. Normal left ventricular cavity size and systolic function, EF 73%. 2. Mild concentric left ventricular hyypertrophy. 3. Mild right ventricular enlargement and mild right ventricular -Serial Ekg, start troponins, telemetry monitoring - Stress testing as outpatient Thrombocytopenia, haptoglobin 220, LDH 255, sed rate 11, peripheral smear no platelet clumping, no blasts Acute hypoxic respiratory failure, requiring 6 L -Negative that 11 L so far - Fluid overload, bilateral effusions, pulmonary edema - Bumex 1 mg IV every 24 hours - Nephrology consulted for dialysis - History of pulmonary embolism, anticoagulant therapy currently on hold due to acute anemia, with plans of IVC filter placement delayed given acute respiratory failure - Will have to hold off on anticoagulant therapy due to acute persistent anemia, discussed risks and benefits with patient, he voiced understanding, all questions answered, agreed to proceed - Solu-Medrol de-escalated to 40 mg daily - Vancomycin will continue vancomycin for chronic IV antibiotics for diabetic foot infection - Meropenem, will likely de-escalate in the next 24 hours, de-escalate to Rocephin - CT angio of the chest CT/CT angio chest PE protcl [id number] IMPRESSION: 1. There are stable filling defects in the 2nd and 3rd order branches of the left lower lobe pulmonary artery. Relatively low-density associated with the these filling defects is present and there is calcific plaque associated with the right and left main pulmonary arteries extending into the proximal branches. The filling defects likely represent evidence of chronic emboli. No additional new emboli are identified. The RV/LV ratio is 1.2 which is stable on interval comparison. 2. 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 No significant change is noted 3. There has been interval increase in the size of the moderate-sized right-sided pleural effusion and mild increase in the small left-sided pleural effusion is also noted. Compressive atelectasis in the right lower lobe secondary to the right-sided pleural effusion is present. 3. 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 This finding was also present on the prior CT examination. 4. Extensive coronary artery calcification is present. 5. Findings associated with the liver is suggestive of cirrhosis. 6. Cholelithiasis. Right-sided pleural effusion, thoracentesis, not enough fluid to tap monitor Acute on chronic anemia, concerns for slow GI bleed, he is occult positive stools -Hemoglobin 8.6, INR 1.9, platelet count, 54,000 -EGD July 2025 showed moderate gastritis of the abdomen, several small erosions and a segment of bleeding, biopsies taken Endo Clip was placed in one of the biopsy sites as could oozing was noted -Colonoscopy status post polypectomy Plan -CT chest abdomen pelvis with IV contrast no acute bleed ? Status post 5 units PRBC - Monitor hemoglobin -Monitor hemodynamics closely -Status post IVC filter placement - Patient would like to pursue outpatient follow-up with general surgery for EGD and colonoscopy, due to concerns for worsening respiratory failure, discussed risk of benefits, he voiced understanding, all questions answered, agreed to proceed -Protonix, Carafate History of pulmonary embolism - On Eliquis, currently on hold due to acute anemia, will likely discontinue on discharge due to persistent anemia -Recurrent anemia requiring blood transfusions - Cardiology consulted for IVC filter placement, status post IVC filter placement Advanced arterial vascular disease in the abdomen CT/CT abdomen pelvis w con* [id number] IMPRESSION: 4. Advanced arterial vascular disease is present throughout the abdomen and pelvis as described. No infrarenal abdominal aortic aneurysm. 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 Superior mesenteric artery remains patent. 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 Plan - Aspirin, statin - Avoid hypotension - Will need to follow-up with vascular surgery as outpatient Shock, resolved -Monitor in ICU, MAP in 65 -Patient might require Levophed - Likely multifactorial - With acute on chronic anemia - Continue home vancomycin and Rocephin Sepsis? - Blood cultures so far no growth - UA - Cultures from diabetic foot infection Diabetic foot infection - Left foot - Wound care - Podiatry consulted - Immanuel Bello End-stage renal disease on dialysis -Nephrology consulted -Plans on dialysis today Dialysis catheter is uncuffed, -risk of infection dialysis catheter is not replaced, risk including but not limited to sepsis, blood bloodstream infection, endocarditis - Discussed with patient the risk and benefits of replacing dialysis catheter, morbidity and mortality associated with procedure given his current respiratory status - For now he has accepted risks of not replacing dialysis catheter, he voiced understanding, all questions, agreed to proceed Weakness, fatigue, likely multifactorial History of pulmonary hypertension continue home medications plan for today PT OT PDMP PDMP Reviewed: Not Reviewed Attestations 2 Medical Necessity Statement*: Patient requires hospitalization for hypoxic respiratory failure, anemia Diagnoses Chest pain R07.9 Peripheral arterial disease I73.9 Pulmonary emboli I26.99 Type 2 diabetes mellitus with foot ulcer E11.621; L97.509 GI bleed K92.2 Acute kidney injury superimposed on CKD N17.9; N18.9 End stage renal disease on dialysis N18.6; Z99.2 Symptomatic anemia D64.9 NSTEMI (non-ST elevated myocardial infarction) I21.4 Shock R57.9
[2025-09-12] MEDS: cefTRIAXone 1,000 mg SDV 1000 MG IVP (16:22)
[2025-09-12] MEDS: water for injection-sterile 10 ML 1000 ML (16:48)
--- NOTE | 2025-09-12 18:13 | PC.NURSE ---
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
--- NOTE | 2025-09-12 19:08 | P.PN_ITS ---
Subjective 2 Subjective: on 8 L NC Medications: Reviewed: Yes Vitals/I&O/Wt Last Vital Signs Temp 98.5 F 09/12/25 04:00 Pulse 93 09/12/25 18:00 Resp 19 H 09/12/25 18:00 BP 109/48 09/12/25 18:00 Pulse Ox 92 09/12/25 17:00 O2 Del Method High Flow Nasal Cannula 09/12/25 15:45 O2 Flow Rate 6 09/12/25 15:45 FiO2 30 09/10/25 04:00 09/12/25 09/12/25 09/12/25 06:59 14:59 22:59 Intake Total 600 / 600 410 / 1010 Output Total 615 / 3975 100 / 100 600 / 700 Balance -615 / -1295 500 / 500 -190 / 310 Weight last 48 hrs Weight 78.834 kg Weight 72 kg Weight 71.2 kg Physical Exam 2 Narrative: awake, alert , no distress No JVD PEERLA S1S2 RRR Lungs with [place] crackles Abd soft , non tender Ext no edema no skin rash Data 09/12/25 04:34 09/12/25 04:34 A&P Assessment and plan 1. End stage renal disease on dialysis: Plan: 1. End-stage renal disease: Recently initiated on hemodialysis, . HD per MWF schedule 2. Acute resp failure ,despite aggressive UF with HD , --> multifactorial , 3. Severe anemia, acute on chronic, plan for 2 units PRBCs, s/p epogen 4. Hypokalemia, improved 5. Elevated troponin, likely demand ischemia, management per primary team 6. h/oTAVR 7. H/O PE - anticoagulation held due to reccurrent anemia , s/p IVC filter placement Today's evaluation. Time spent 40 minutes. PDMP PDMP Reviewed: Not Reviewed Attestations 2 Medical Necessity Statement*: per medicine Coding Level of Care Code Acute Code for Chg Fwd Diagnoses End stage renal disease on dialysis N18.6; Z99.2
[2025-09-13] VITALS (34 sets, daily range): BP systolic 88–142; BP diastolic 44–74; PULSE 81–178; RESP 3–24; TEMP 36.6–36.9; O2SAT 91–97
[2025-09-13] MEDS: MACITENTAN 10 MG 10 EACH PO (04:24)
[2025-09-13] MEDS: RIOCIGUAT 2.5 MG 2.5 EACH PO ×3 (04:24→20:18)
[2025-09-13] MEDS: ciprofloxacin-dexameth Otic Susp 7.5 mL Btl 4 DROP EAR-BOTH ×2 (04:25→17:34)
[2025-09-13 05:03] LABS: Hematocrit 28.2 % (37-53); Hemoglobin 8.90 g/dL (11.27-16.99); Mean Corpuscular HGB Conc 31.6 g/dL (30-55); Mean Corpuscular Hemoglobin 29.1 pg (27-33); Mean Corpuscular Volume 92.2 fl (82-101); Nucleated Red Blood Cells % 0 %; Platelet Count 106 10^3/cmm (157-399); Red Blood Count 3.06 10^6/uL (3.85-5.65); White Blood Count 10.08 10^3/uL (3.29-11.43)
[2025-09-13] MEDS: sucralfate 1 gm/10 mL Oral Liq UDC PO ×4 (05:05→22:58)
[2025-09-13] MEDS: insulin glargine 100 units/1 mL 15 UNIT SUBCUT ×2 (05:05→17:34)
[2025-09-13 05:37] LABS: Alanine Aminotransferase 32 U/L (0-41); Albumin Level 2.9 g/dL (3.5-5.2); Alkaline Phosphatase 203 U/L (40-130); Aspartate Amino Transferase 38 U/L (0-40); Blood Urea Nitrogen 75 mg/dL (8-23); Calcium 8.2 mg/dL (8.5-10.5); Carbon Dioxide 25 mmol/L (22-29); Chloride 98 mmol/L (98-107); Creatinine Clr Calc Pharmacy 24.3268; Globulin 2.0 g/dL (1.3-4.6); Glucose 252 mg/dL (65-115); Osmolality Calculated 313 mOsm/kg (285-295); Sodium 136 mmol/L (136-145); Total Protein 4.9 g/dL (6.6-8.7)
[2025-09-13 05:50] LABS: Anion Gap 17.6 (5-19); Potassium 4.6 mmol/L (3.5-5.1)
[2025-09-13 06:14] LABS: NT Pro B Type Natriuretic Pept 6911 pg/mL (0-125)
[2025-09-13] MEDS: pantoprazole 40 mg SDV IVP ×2 (08:20→20:14)
[2025-09-13] MEDS: bumetanide 0.25 mg/mL SDV 4 mL 1 MG IVP (09:27)
[2025-09-13] MEDS: vancomycin 500 MG in sodium chloride 0.9% (plus) 100 ML 200 MG IV (11:25)
[2025-09-13] MEDS: water for injection-sterile 10 ML 1000 ML (15:22)
[2025-09-13] MEDS: cefTRIAXone 1,000 mg SDV 1000 MG IVP (15:22)
--- NOTE | 2025-09-13 15:32 | P.PN_ITS ---
Subjective 2 Subjective: Patient was seen this morning, denies any fevers, no chills, no lightheadedness, does report 1 episode of hemoptysis during the night, has not had any episodes since then Vitals/I&O/Wt Last Vital Signs Temp 97.8 F 09/13/25 08:00 Pulse 98 09/13/25 14:58 Resp 15 09/13/25 14:00 BP 134/61 09/13/25 14:00 Pulse Ox 97 09/13/25 12:00 O2 Del Method High Flow Nasal Cannula 09/13/25 12:00 O2 Flow Rate 5 09/13/25 12:00 FiO2 30 09/10/25 04:00 09/13/25 09/13/25 09/13/25 06:59 14:59 22:59 Intake Total 750 / 750 210 / 960 Output Total 500 / 1550 500 / 500 1000 / 1500 Balance -500 / -540 250 / 250 -790 / -540 Weight last 48 hrs Weight 69.853 kg Weight 78.834 kg Physical Exam 2 Const: COMMON NORMALS: no acute distress and patient oriented x3 Resp: COMMON NORMALS: normal respiratory effort, No retractions, No use of accessory muscles and clear to auscultation bilaterally AUSCULTATION: clear to auscultation bilaterally Cardio: COMMON NORMALS: regular rate, regular rhythm, S1 normal heart sound present and S2 normal heart sound present RATE: regular rate RHYTHM: r egular rhythm HEART SOUNDS: S1 normal heart sound present and S2 normal heart sound present GI: COMMON NORMALS: Normal to inspection, nondistended, normoactive bowel sounds present and non-tender Extremity: COMMON NORMALS: no pedal edema Neuro: COMMON NORMALS: patient oriented x3 Psych: COMMON NORMALS: mental status grossly normal Data 09/13/25 04:48 09/13/25 04:48 A&P Assessment and plan 1. Chest pain: 2. Peripheral arterial disease: 3. Pulmonary emboli: 4. Type 2 diabetes mellitus with foot ulcer: 5. GI bleed: 6. Acute kidney injury superimposed on CKD: 7. End stage renal disease on dialysis: 8. Symptomatic anemia: 9. NSTEMI (non-ST elevated myocardial infarction): 10. Shock: Plan: Chest pain - With NSTEMI - With acute on chronic anemia, concern for GI bleed, thrombocytopenia, elevated INR -Type I versus type II NSTEMI Plan -Patient is on Eliquis, will hold for now, given patient's complications as above, discussed the risks and benefits of anticoagulant therapy, he voiced understanding, all questions answered, agreed to hold anticoagulant therapy for now -Certainly this is a difficult situation, but if he does develop recurrent chest pain, or EKG changes then we might have to consider trial of anticoagulant therapy -Aspirin, statin -Cardiac echo CONCLUSIONS 1. Normal left ventricular cavity size and systolic function, EF 73%. 2. Mild concentric left ventricular hyypertrophy. 3. Mild right ventricular enlargement and mild right ventricular -Serial Ekg, start troponins, telemetry monitoring - Stress testing as outpatient Thrombocytopenia, haptoglobin 220, LDH 255, sed rate 11, peripheral smear no platelet clumping, no blasts Acute hypoxic respiratory failure, requiring 6 L -Negative that 11 L so far - Fluid overload, bilateral effusions, pulmonary edema - Bumex 1 mg IV every 24 hours - Nephrology consulted for dialysis - History of pulmonary embolism, anticoagulant therapy currently on hold due to acute anemia, with plans of IVC filter placement delayed given acute respiratory failure - Will have to hold off on anticoagulant therapy due to acute persistent anemia, discussed risks and benefits with patient, he voiced understanding, all questions answered, agreed to proceed - Solu-Medrol de-escalated to 40 mg daily - Vancomycin will continue vancomycin for chronic IV antibiotics for diabetic foot infection - Meropenem, will likely de-escalate in the next 24 hours, de-escalate to Rocephin - CT angio of the chest CT/CT angio chest PE protcl [id number] IMPRESSION: 1. There are stable filling defects in the 2nd and 3rd order branches of the left lower lobe pulmonary artery. Relatively low-density associated with the these filling defects is present and there is calcific plaque associated with the right and left main pulmonary arteries extending into the proximal branches. The filling defects likely represent evidence of chronic emboli. No additional new emboli are identified. The RV/LV ratio is 1.2 which is stable on interval comparison. 2. 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 No significant change is noted 3. There has been interval increase in the size of the moderate-sized right-sided pleural effusion and mild increase in the small left-sided pleural effusion is also noted. Compressive atelectasis in the right lower lobe secondary to the right-sided pleural effusion is present. 3. 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 This finding was also present on the prior CT examination. 4. Extensive coronary artery calcification is present. 5. Findings associated with the liver is suggestive of cirrhosis. 6. Cholelithiasis. Right-sided pleural effusion, thoracentesis, not enough fluid to tap monitor Acute on chronic anemia, concerns for slow GI bleed, he is occult positive stools -Hemoglobin 8.6, INR 1.9, platelet count, 54,000 -EGD July 2025 showed moderate gastritis of the abdomen, several small erosions and a segment of bleeding, biopsies taken Endo Clip was placed in one of the biopsy sites as could oozing was noted -Colonoscopy status post polypectomy Plan -CT chest abdomen pelvis with IV contrast no acute bleed ? Status post 5 units PRBC - Monitor hemoglobin -Monitor hemodynamics closely -Status post IVC filter placement - Patient would like to pursue outpatient follow-up with general surgery for EGD and colonoscopy, due to concerns for worsening respiratory failure, discussed risk of benefits, he voiced understanding, all questions answered, agreed to proceed -Protonix, Carafate History of pulmonary embolism - On Eliquis, currently on hold due to acute anemia, will likely discontinue on discharge due to persistent anemia -Recurrent anemia requiring blood transfusions - Cardiology consulted for IVC filter placement, status post IVC filter placement Advanced arterial vascular disease in the abdomen CT/CT abdomen pelvis w con* [id number] IMPRESSION: 4. Advanced arterial vascular disease is present throughout the abdomen and pelvis as described. No infrarenal abdominal aortic aneurysm. 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 Superior mesenteric artery remains patent. 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 Plan - Aspirin, statin - Avoid hypotension - Will need to follow-up with vascular surgery as outpatient Shock, resolved -Monitor in ICU, MAP in 65 -Patient might require Levophed - Likely multifactorial - With acute on chronic anemia - Continue home vancomycin and Rocephin Sepsis? - Blood cultures so far no growth - UA - Cultures from diabetic foot infection Diabetic foot infection - Left foot - Wound care - Podiatry consulted - Vancomycin, Rocephin End-stage renal disease on dialysis -Nephrology consulted -Plans on dialysis today Dialysis catheter is uncuffed, -risk of infection dialysis catheter is not replaced, risk including but not limited to sepsis, blood bloodstream infection, endocarditis - Discussed with patient the risk and benefits of replacing dialysis catheter, morbidity and mortality associated with procedure given his current respiratory status - For now he has accepted risks of not replacing dialysis catheter, he voiced understanding, all questions, agreed to proceed Weakness, fatigue, likely multifactorial History of pulmonary hypertension continue home medications plan for today PT OT hemoptysis, stop aspirin, Tessalon Joby moved to medical floors PDMP PDMP Reviewed: Not Reviewed Attestations 2 Medical Necessity Statement*: Patient requires hospital for acute respiratory failure Diagnoses Chest pain R07.9 Peripheral arterial disease I73.9 Pulmonary emboli I26.99 Type 2 diabetes mellitus with foot ulcer E11.621; L97.509 GI bleed K92.2 Acute kidney injury superimposed on CKD N17.9; N18.9 End stage renal disease on dialysis N18.6; Z99.2 Symptomatic anemia D64.9 NSTEMI (non-ST elevated myocardial infarction) I21.4 Shock R57.9
--- NOTE | 2025-09-13 18:09 | P.PN_ITS ---
Subjective 2 Subjective: no new c/o Medications: Reviewed: Yes Vitals/I&O/Wt Last Vital Signs Temp 97.8 F 09/13/25 08:00 Pulse 96 09/13/25 16:00 Resp 16 09/13/25 16:00 BP 142/64 09/13/25 16:00 Pulse Ox 92 09/13/25 15:32 O2 Del Method Nasal Cannula 09/13/25 15:32 O2 Flow Rate 4 09/13/25 15:32 FiO2 30 09/10/25 04:00 09/13/25 09/13/25 09/13/25 06:59 14:59 22:59 Intake Total 750 / 750 510 / 1260 Output Total 500 / 1550 500 / 500 1000 / 1500 Balance -500 / -540 250 / 250 -490 / -240 Weight last 48 hrs Weight 69.853 kg Weight 78.834 kg Physical Exam 2 Narrative: awake, alert , no distress No JVD PEERLA S1S2 RRR Lungs with [place] crackles Abd soft , non tender Ext no edema no skin rash Data 09/13/25 04:48 09/13/25 04:48 A&P Assessment and plan 1. End stage renal disease on dialysis: Plan: 1. End-stage renal disease: Recently initiated on hemodialysis, . HD per MW schedule 2. Acute resp failure ,despite aggressive UF with HD , --> multifactorial , 3. Severe anemia, acute on chronic, plan for 2 units PRBCs, s/p epogen 4. Hypokalemia, improved 5. Elevated troponin, likely demand ischemia, management per primary team 6. h/oTAVR 7. H/O PE - anticoagulation held due to reccurrent anemia , s/p IVC filter placement Today's evaluation. Time spent 40 minutes. PDMP PDMP Reviewed: Not Reviewed Attestations 2 Medical Necessity Statement*: evensdiicne Coding Level of Care Code Acute Code for Chg Fwd Diagnoses End stage renal disease on dialysis N18.6; Z99.2
[2025-09-14] VITALS (25 sets, daily range): BP systolic 94–147; BP diastolic 45–70; PULSE 73–99; RESP 0–25; TEMP 37–37.2; O2SAT 87–99
[2025-09-14 04:51] LABS: Hematocrit 28.6 % (37-53); Hemoglobin 9.00 g/dL (11.27-16.99); Mean Corpuscular HGB Conc 31.5 g/dL (30-55); Mean Corpuscular Hemoglobin 28.9 pg (27-33); Mean Corpuscular Volume 92.0 fl (82-101); Nucleated Red Blood Cells % 0 %; Platelet Count 130 10^3/cmm (157-399); Red Blood Count 3.11 10^6/uL (3.85-5.65); White Blood Count 11.41 10^3/uL (3.29-11.43)
[2025-09-14] MEDS: sucralfate 1 gm/10 mL Oral Liq UDC PO (05:05)
[2025-09-14] MEDS: ciprofloxacin-dexameth Otic Susp 7.5 mL Btl 4 DROP EAR-BOTH (05:05)
[2025-09-14] MEDS: RIOCIGUAT 2.5 MG 2.5 EACH PO (05:05)
[2025-09-14] MEDS: MACITENTAN 10 MG 10 EACH PO (05:06)
[2025-09-14 05:22] LABS: Alanine Aminotransferase 27 U/L (0-41); Albumin Level 3.0 g/dL (3.5-5.2); Alkaline Phosphatase 175 U/L (40-130); Blood Urea Nitrogen 76 mg/dL (8-23); Calcium 8.3 mg/dL (8.5-10.5); Carbon Dioxide 23 mmol/L (22-29); Chloride 100 mmol/L (98-107); Creatinine Clr Calc Pharmacy 28.9605; Globulin 1.7 g/dL (1.3-4.6); Glucose 217 mg/dL (65-115); Magnesium 1.7 mg/dL (1.7-2.3); Osmolality Calculated 313 mOsm/kg (285-295); Sodium 137 mmol/L (136-145); Total Protein 4.7 g/dL (6.6-8.7)
[2025-09-14 05:25] LABS: Anion Gap 19.5 (5-19); Aspartate Amino Transferase 28 U/L (0-40); Potassium 5.5 mmol/L (3.5-5.1)
--- NOTE | 2025-09-14 07:59 | PC.HD ---
Plans are for discharge today after dialysis treatment. Per Dr. Melgoza, ok to run dialysis treatment in dialysis room rather than bedside in ICU.
[2025-09-14] MEDS: pantoprazole 40 mg SDV IVP (08:09)
[2025-09-14] MEDS: insulin glargine 100 units/1 mL 15 UNIT SUBCUT (08:10)
--- NOTE | 2025-09-14 08:32 | PC.NURSE ---
blood transfusion from 09/11/25 ended in [facility]. unknown actual end time.
--- NOTE | 2025-09-14 11:08 | PC.HD ---
HD catheter dressing changed prior to dialysis treatment. Area noted to have large amounts of dried, granular-textured blood with a small amount of red blood at catheter insertion site. Area was cleansed well with Chloraprep. Triple antibiotic ointment applied to catheter insertion site. Fresh covaderm applied.
--- NOTE | 2025-09-14 12:20 | PM.DCS ---
Discharge Providers Date of Admission: 09/04/25 16:34 Date of Discharge: September 14, 2025 Attending Provider at Admission: Cruz Fang MD Attending Provider at Discharge: Cruz Fang MD Primary Care Provider: Patrick Nick MD Diagnoses at Discharge Discharge Diagnosis 1. End stage renal disease on dialysis: Reason for Visit Reason for Visit: chest pain Hospital Course Hospital Course Guy Wiseman is a 70 year old male past medical history of pulmonary embolism on Eliquis, history of prosthetic aortic valve replacement, pulmonary hypertension, history of bilateral lower extremity diabetic wounds, on vancomycin and Rocephin with PICC line in place, end-stage renal disease on dialysis, history of type 2 diabetes, history of diabetic neuropathy history of acute on chronic anemia requiring blood transfusion, recent history of EGD showing gastritis and erosions, history of atrial fibrillation on Eliquis, colonoscopy showing polyps requiring polypectomy, with recent hospitalization for acute respiratory failure, COPD, H. pylori positive, mass of upper lobe of right lung, during last hospitalization received 1 unit of blood, pulmonary embolism due to interruption of apixaban, discharged on apixaban, who presents to [facility] due to weakness, fatigue, chest pain patient reports that he lives at home with his girlfriend, he has been less ambulatory, increasingly weak, fatigued, he has had chest discomfort, with increased shortness of breath, bilateral extremity edema. Patient reports that the chest pain is minimal now, chest pain at rest, nonradiating, respiratory shortness of breath, lightheadedness Patient was admitted to [facility] for respiratory failure, chest pain, GI bleed, please look at my last progress note for further detail Chest pain - With NSTEMI - With acute on chronic anemia, concern for GI bleed, thrombocytopenia, elevated INR -Type I versus type II NSTEMI Plan -Patient is on Eliquis, will hold for now, given patient's complications as above, discussed the risks and benefits of anticoagulant therapy, he voiced understanding, all questions answered, agreed to hold anticoagulant therapy for now -Certainly this is a difficult situation, but if he does develop recurrent chest pain, or EKG changes then we might have to consider trial of anticoagulant therapy -Aspirin, statin -Cardiac echo CONCLUSIONS 1. Normal left ventricular cavity size and systolic function, EF 73%. 2. Mild concentric left ventricular hyypertrophy. 3. Mild right ventricular enlargement and mild right ventricular -Serial Ekg, start troponins, telemetry monitoring -No recurrent chest pain - Stress testing as outpatient, follow-up with cardiology as outpatient History of pulmonary embolism 1. There are stable filling defects in the 2nd and 3rd order branches of the left lower lobe pulmonary artery. Relatively low-density associated with the these filling defects is present and there is calcific plaque associated with the right and left main pulmonary arteries extending into the proximal branches. The filling defects likely represent evidence of chronic emboli. No additional new emboli are identified. The RV/LV ratio is 1.2 which is stable on interval comparison. -could not tolerate anticoagulation dute to GI bleed, requiring blood transfusion as inpatient status post 5 units of blood -s/p IVC filter placement, tolerated procedure well -follow with cardiology as outpatient Patient was found to have thrombocytopenia during hospitalization, follow-up with primary care provider as outpatient Acute hypoxic respiratory failure, requiring up to 10L -Requiring IV diuresis, inpatient dialysis negative that 11 L so far - Fluid overload, bilateral effusions, pulmonary edema - Nephrology consulted for dialysis - History of pulmonary embolism, anticoagulant therapy currently on hold due to acute anemia, requiring IVC filter placement due to intolerance with anticoagulant therapy -Requiring IV steroids, de-escalated to 40 mg daily on discharge - CT angio of the chest CT/CT angio chest PE protcl [id number] IMPRESSION: 1. There are stable filling defects in the 2nd and 3rd order branches of the left lower lobe pulmonary artery. Relatively low-density associated with the these filling defects is present and there is calcific plaque associated with the right and left main pulmonary arteries extending into the proximal branches. The filling defects likely represent evidence of chronic emboli. No additional new emboli are identified. The RV/LV ratio is 1.2 which is stable on interval comparison. 2. 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 No significant change is noted 3. There has been interval increase in the size of the moderate-sized right-sided pleural effusion and mild increase in the small left-sided pleural effusion is also noted. Compressive atelectasis in the right lower lobe secondary to the right-sided pleural effusion is present. 3. 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 This finding was also present on the prior CT examination. 4. Extensive coronary artery calcification is present. 5. Findings associated with the liver is suggestive of cirrhosis. 6. Cholelithiasis. - Overall clinically improved to 4 L at discharge -Discharged with close follow-up with primary care -Follow-up with pulmonary -Continue Bumex 1 mg daily on discharge -Continue dialysis on discharge Acute on chronic anemia, concerns for slow GI bleed, he has occult positive stools -Hemoglobin 9.0 on discharge -EGD July 2025 showed moderate gastritis of the abdomen, several small erosions and a segment of bleeding, biopsies taken Endo Clip was placed in one of the biopsy sites as could oozing was noted -Colonoscopy status post polypectomy -CT chest abdomen pelvis with IV contrast no acute bleed -Status post IVC filter placement with history of pulmonary embolism -Due to respiratory failure as above, decision was made to hold off on inpatient EGD and colonoscopy due to concern for worsening respiratory failure - Patient would like to pursue outpatient follow-up with general surgery for EGD and colonoscopy, due to concerns for worsening respiratory failure, discussed risk of benefits, he voiced understanding, all questions answered, agreed to proceed -Protonix, Carafate on discharge - Monitor hemoglobin thinners, Dialysis catheter is uncuffed, -risk of infection dialysis catheter is not replaced, risk including but not limited to sepsis, blood bloodstream infection, endocarditis - Discussed with patient the risk and benefits of replacing dialysis catheter, morbidity and mortality associated with procedure given his current respiratory status - For now he has accepted risks of not replacing dialysis catheter, he voiced understanding, all questions, agreed to proceed - Follow-up with general surgery as outpatient Advanced arterial vascular disease in the abdomen CT/CT abdomen pelvis w con* [id number] IMPRESSION: 4. Advanced arterial vascular disease is present throughout the abdomen and pelvis as described. No infrarenal abdominal aortic aneurysm. 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 Superior mesenteric artery remains patent. 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 No significant change is noted -Patient had intermittent episodes of scant hemoptysis during hospitalization -Thus I have to stop aspirin on discharge -Follow-up with pulmonary as outpatient for biopsy -Follow-up for recurrent hemoptysis if so go to emergency room Physical Exam Const: COMMON NORMALS: no acute distress and patient oriented x3 Resp: COMMON NORMALS: normal respiratory effort, No retractions, No use of accessory muscles and clear to auscultation bilaterally AUSCULTATION: clear to auscultation bilaterally Cardio: COMMON NORMALS: regular rate, regular rhythm, S1 normal heart sound present and S2 normal heart sound present RATE: regular rate RHYTHM: regular rhythm HEART SOUNDS: S1 normal heart sound present and S2 normal heart sound present GI: COMMON NORMALS: Normal to inspection, nondistended, normoactive bowel sounds present and non-tender Extremity: COMMON NORMALS: no calf tenderness and no pedal edema Neuro: COMMON NORMALS: patient oriented x3 Psych: COMMON NORMALS: mental status grossly normal Discharge Data Studies Completed and Pending Completed Studies During Hospitalization Category Date Time Status CT abdomen pelvis w con* [id number] Stat Cat Scan 09/04/25 15:[address] angio chest PE protcl [id number] Routine Cat Scan 09/08/25 08:00 Completed [employer] request for service Routine Exams 09/09/25 07:30 Completed XR chest 1V portable [id number] Routine Exams 09/05/25 07:00 Completed XR chest 1V portable [id number] Routine Exams 09/07/25 09:47 Completed XR chest 1V portable [id number] Routine Exams 09/08/25 07:00 Completed XR chest 1V portable [id number] Stat Exams 09/04/25 12:41 [place] [id number] Stat Ultrasound 09/04/25 15:10 Completed CV. echo limited [id number] Stat Ultrasound 09/04/25 15:10 Completed [place] chest [id number] Routine Ultrasound 09/08/25 07:55 Completed Pending at discharge Category Date Time Status Complete Blood Count w/Auto AM LABS Lab 09/15/25 04:00 Ordered Complete Blood Count w/Auto AM LABS Lab 09/16/25 04:00 Ordered Comprehensive Metabolic Panel AM LABS Lab 09/15/25 04:00 Ordered Comprehensive Metabolic Panel AM LABS Lab 09/16/25 04:00 Ordered Magnesium AM LABS Lab 09/15/25 04:00 Ordered Magnesium AM LABS Lab 09/16/25 04:00 Ordered Radiology Impressions Venous Duplex 09/04/25 15:10 IMPRESSION: No evidence of deep vein thrombosis. Abdomen/Pelvis CT 09/04/25 15:31 IMPRESSION: 1. Hepatomegaly. Diffuse decreased density throughout the liver in keeping with hepatic steatosis. A portion of the liver surface appears nodular suggestive of changes of cirrhosis. No suspicious mass or lesion within the liver. 2. Partial visualization of the moderate right pleural effusion. Small left pleural effusion. 3. No ascites. No evidence of a bowel obstruction. No evidence of acute colitis or acute diverticulitis. 4. Advanced arterial vascular disease is present throughout the abdomen and pelvis as described. No infrarenal abdominal aortic aneurysm. 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 Superior mesenteric artery remains patent. 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 5. Bladder is distended. Mild circumferential bladder wall thickening in keeping with bladder wall trabeculation. Prostate is mildly enlarged and impresses upon the base of the bladder. 6. Small periumbilical hernia containing fat. 7. Small amount of dense material within the dependent portion of the neck of the gallbladder which may correspond to small amount of noncalcified stones or sludge. No gallbladder wall thickening. 8. Additional findings as described. COMMENTS: Consistent with the [employer]'s Incidental Findings Committee white paper (J Am Alejandro Radiol 2018): Any incidental renal lesion less than 1 cm or classified as too small to characterize, or any incidental cystic renal lesion characterized as simple-appearing, is likely benign. No follow-up imaging is recommended for these lesions per consensus recommendations based on imaging criteria. Chest X-Ray 09/08/25 07:00 IMPRESSION: 1. Infiltrate involving the right lung with probable small right pleural effusion worse on today's exam when compared to prior chest x-ray. Chest Ultrasound 09/08/25 07:55 IMPRESSION: 1. No thoracentesis to be performed due to the small effusion and atelectatic lung. Chest CTA 09/08/25 08:00 IMPRESSION: 1. There are stable filling defects in the 2nd and 3rd order branches of the left lower lobe pulmonary artery. Relatively low-density associated with the these filling defects is present and there is calcific plaque associated with the right and left main pulmonary arteries extending into the proximal branches. The filling defects likely represent evidence of chronic emboli. No additional new emboli are identified. The RV/LV ratio is 1.2 which is stable on interval comparison. 2. 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 No significant change is noted 3. There has been interval increase in the size of the moderate-sized right-sided pleural effusion and mild increase in the small left-sided pleural effusion is also noted. Compressive atelectasis in the right lower lobe secondary to the right-sided pleural effusion is present. 3. 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 This finding was also present on the prior CT examination. 4. Extensive coronary artery calcification is present. 5. Findings associated with the liver is suggestive of cirrhosis. 6. Cholelithiasis. Laboratory Results WBC 11.41 10^3/uL (3.29-11.43) 09/14/25 04:42 RBC 3.11 10^6/uL (3.85-5.65) L 09/14/25 04:42 Hgb 9.00 g/dL (11.27-16.99) L 09/14/25 04:42 Hct 28.6 % (37-53) L 09/14/25 04:42 MCV 92.0 fl (82-101) 09/14/25 04:42 MCH 28.9 pg (27-33) 09/14/25 04:42 MCHC 31.5 g/dL (30-55) 09/14/25 04:42 RDW 18.0 % (12.1-15.1) H 09/14/25 04:42 Plt Count 130 10^3/cmm (157-399) L 09/14/25 04:42 MPV 11.2 fL (7.4-10.4) H 09/14/25 04:42 Neut % (Auto) 78.2 % 09/14/25 04:42 Lymph % (Auto) 13.5 % 09/14/25 04:42 [place] % (Auto) 6.9 % 09/14/25 04:42 Eos % (Auto) 1.0 % 09/14/25 04:42 Baso % (Auto) 0.0 % 09/14/25 04:42 Reticulocyte % (Auto) 4.9 % (0.5-2.0) H 09/05/25 04:13 Neut # (Auto) 8.92 10^3/uL (1.8-7.7) H 09/14/25 04:42 Lymph # (Auto) 1.5 10^3/uL (0.8-4.8) 09/14/25 04:42 [place] # (Auto) 0.8 10^3/uL (0.2-0.9) 09/14/25 04:42 Eos # (Auto) 0.1 10^3/uL (0.0-0.8) 09/14/25 04:42 Baso # (Auto) 0.0 10^3/uL (0.0-0.1) 09/14/25 04:42 Nucleated RBC % (auto) 0 % 09/14/25 04:42 Nucleated RBCs # 0.0 /100WBC 09/14/25 04:42 Peripher Smr Path Cons Sent for review 09/05/25 04:13 ESR 11 mm/hr (0-10) H 09/04/25 13:16 Haptoglobin 214.0 mg/L (30-200) H 09/11/25 07:35 PT 14.70 SECONDS (12.1-14.9) 09/11/25 08:03 INR 1.07 (0.8-1.2) 09/11/25 08:03 APTT 36.5 SECONDS (23.9-36.7) 09/11/25 08:03 Specimen Type Arterial 09/10/25 04:24 Sample Site Brachial, right 09/10/25 04:24 ABG pH 7.47 (7.35-7.45) H 09/10/25 04:24 ABG pCO2 37.3 mmHg (35-45) 09/10/25 04:24 ABG pO2 45.5 mmHg (80.0-100.0) L 09/10/25 04:24 ABG HCO3 27.1 mmol/L (22-26) H 09/10/25 04:24 ABG O2 Saturation 92.1 09/07/25 10:20 ABG Base Excess 3.4 mmol/L (-2.0-2.0) H 09/10/25 04:24 Patrice Test N/a 09/10/25 04:24 A-a O2 Gradient 5.5 mmHg (5-10) 09/07/25 10:20 Hematocrit 33.7 % (42-52) L 09/10/25 04:24 Hgb O2 Saturation 89.8 % (95-100) L 09/07/25 10:20 Carboxyhemoglobin 1.4 %THgb (0.4-20.1) 09/07/25 10:20 Methemoglobin 1.1 % (0.4-1.5) 09/07/25 10:20 Total Hemoglobin 9.6 g/dL (14-18) L 09/07/25 10:20 Sodium 137.0 mmol/L (131-143) 09/07/25 10:20 Potassium 3.5 mmol/L (3.5-5.0) 09/07/25 10:20 Glucose 269.0 mg/dL (70-115) H 09/07/25 10:20 Ionized Calcium 1.2 mmol/L (1.1-1.4) 09/07/25 10:20 O2 Delivery Device Nc 09/10/25 04:24 O2 Liters/Min 6.0 % 09/10/25 04:24 Kitchen Worker ID [email or web address] 09/10/25 04:24 Sodium 137 mmol/L (136-145) 09/14/25 04:42 Potassium 5.5 mmol/L (3.5-5.1) H 09/14/25 04:42 Chloride 100 mmol/L (98-107) 09/14/25 04:42 Carbon Dioxide 23 mmol/L (22-29) 09/14/25 04:42 Anion Gap 19.5 (5-19) H 09/14/25 04:42 BUN 76 mg/dL (8-23) H 09/14/25 04:42 Creatinine 2.1 mg/dL (0.7-1.2) H 09/14/25 04:42 GFR Calculation Not Reportable 09/14/25 04:42 Glucose 217 mg/dL (65-115) H 09/14/25 04:42 POC Glucose 174 mg/dL (70-110) H 09/14/25 07:49 Calculated Osmolality 313 mOsm/kg (285-295) H 09/14/25 04:42 Lactate 1.1 mmol/L (0.5-2.2) 09/07/25 03:34 Calcium 8.3 mg/dL (8.5-10.5) L 09/14/25 04:42 Phosphorus 3.2 mg/dL (2.5-4.5) 09/10/25 04:10 Magnesium 1.7 mg/dL (1.7-2.3) 09/14/25 04:42 Iron 42 ug/dL (59-158) L 09/04/25 13:16 Ferritin 273 ng/mL (30-400) 09/11/25 07:35 Total Bilirubin 0.4 mg/dL (0.15-1.2) 09/14/25 04:42 AST 28 U/L (0-40) 09/14/25 04:42 ALT 27 U/L (0-41) 09/14/25 04:42 Alkaline Phosphatase 175 U/L (40-130) H 09/14/25 04:42 Lactate Dehydrogenase 265 U/L (135-225) H 09/11/25 07:35 Creatine Kinase 80 U/L (39-308) 09/07/25 03:34 Troponin T Baseline 135 ng/L (0-15) H* 09/04/25 13:16 Troponin T 120 Minute 129.7 ng/L (0-15) H 09/04/25 15:07 Delta Troponin T -5.3 ABS# (0-10) L 09/04/25 15:07 Troponin T Hi Sens 6Hr 118.2 ng/L (0-15) H 09/04/25 19:14 Troponin T Hi Sens 6Hr Delta -16.8 ng/L (0-12) L 09/04/25 19:14 C-Reactive Protein 3.1 mg/L (0.0-4.9) 09/13/25 04:48 NT-Pro-B Natriuret Pep 6911 pg/mL (0-125) H 09/13/25 04:48 Total Protein 4.7 g/dL (6.6-8.7) L 09/14/25 04:42 Albumin 3.0 g/dL (3.5-5.2) L 09/14/25 04:42 Globulin 1.7 g/dL (1.3-4.6) 09/14/25 04:42 Triglycerides 115 mg/dL (0-150) 09/04/25 13:16 Cholesterol 72 mg/dL (0-200) 09/04/25 13:16 LDL Cholesterol, Calc 16 mg/dL (50-129) L 09/04/25 13:16 HDL Cholesterol 33 mg/dL (60-100) L 09/04/25 13:16 LDL/HDL Ratio 0.48 RATIO (0.00-3.22) 09/04/25 13:16 Cholesterol/HDL Ratio 2.18 mg/dL (1.0-5.00) 09/04/25 13:16 Procalcitonin 2.22 ng/mL (0-0.5) H 09/10/25 04:10 Urine Color Yellow (Yellow) 09/04/25 20:03 Urine Appearance Clear (CLEAR) 09/04/25 20: Urine pH 5.5 (5-7) 09/04/25 20:03 Ur Specific [place] 1.024 (1.005-1.030) 09/04/25 20:03 Urine Protein 2+ (Negative) A 09/04/25 20: Urine Glucose (UA) 2+ (Normal) H 09/04/25 20: Urine Ketones Negative (Negative) 09/04/25 20: Urine Blood 1+ (Negative) A 09/04/25 20:03 Urine Nitrate Negative (Negative) 09/04/25 20:03 Urine Bilirubin Negative (Negative) 09/04/25 20: Urine Urobilinogen 0.2 mg/dL (Negative) 09/04/25 20:03 Ur Leukocyte Esterase Negative (Negative) 09/04/25 20:03 Urine RBC 3-5 /hpf (0-2) 09/04/25 20:03 Urine WBC 0-5 /hpf (0-5) 09/04/25 20:03 Ur Squamous Epith Cells 0-5 /hpf (0-5) 09/04/25 20:03 Amorphous Sediment Not Reportable 09/04/25 20:03 Urine Bacteria None seen /hpf (NONE) 09/04/25 20:03 Hyaline Casts 5.36 /lpf 09/04/25 20:03 Random Vancomycin 9.5 ug/mL (20.0-40.0) L 09/14/25 04:42 Hepatitis A IgM Ab Non-reactive (Nonreactive) 09/05/25 04:13 Hep Bs Antigen Non-reactive (Nonreactive) 09/05/25 04:13 Hep B Core IgM Ab Non-reactive (Nonreactive) 09/05/25 04:13 Hepatitis C Antibody Non-reactive (Nonreactive) 09/05/25 04:13 HIV 1&2 Ab & HIV 1 Ag Non-reactive (Non-Reactiv) 09/05/25 04:13 HIV 1&2 Antibody Non-reactive (Non-Reactiv) 09/05/25 04:13 Blood Type O Positive 09/11/25 08:03 Rho(D) Type Rh positive 09/11/25 08:03 Antibody Screen Negative 09/11/25 08:03 Crossmatch See Detail 09/11/25 08:03 Vitals Last Vital Signs Temp 99.0 F 09/14/25 11:07 Pulse 73 09/14/25 11:07 Resp 16 09/14/25 11:07 BP 115/58 09/14/25 11:07 Pulse Ox 95 09/14/25 09:00 O2 Del Method Nasal Cannula 09/14/25 08:30 O2 Flow Rate 4 09/14/25 08:30 FiO2 30 09/10/25 04:00 Discharge Plan Discharge Patient Disposition: Xfer SNF Condition: Stable Prescriptions: New midodrine 5 mg Tablet 5 mg PO TID 30 Days Qty: 90 0RF vancomycin 1,000 mg recon soln 500 mg IV .afterdialysis 14 Days Qty: 10 0RF benzonatate 100 mg Capsule 100 mg PO TID 5 Days Qty: 15 0RF ciprofloxacin-dexamethasone 0.3-0.1 % Drops,Suspension 4 drp ear-both BID 7 Days Qty: 7.5 0RF prednisone 20 mg Tablet 40 mg PO DAILY 3 Days Qty: 6 0RF sucralfate [Carafate] 1 gram tablet 1 g PO BID 28 Days Qty: 56 0RF metronidazole 500 mg tablet 500 mg PO Q8H 14 Days Qty: 42 0RF tetracycline 500 mg capsule 500 mg PO QID 14 Days Qty: 56 0RF insulin glargine [Lantus U-100 Insulin] 100 unit/mL Solution 15 unit SUBCUT Q12H 30 Days Qty: 10 0RF Continued (DME) Diabetic shoes See Rx Instructions .ROUTE .MEDSUPPLY Qty: 1 0RF Rx Instructions: With 3 pairs of inserts (DME) Cam boot to left See Rx Instructions .Route .MEDSUPPLY Qty: 1 0RF Rx Instructions: As directed (DME) CAM walker See Rx Instructions .Route .MEDSUPPLY Qty: 1 0RF Rx Instructions: As directed levothyroxine 112 mcg tablet 112 mcg PO DAILY Adempas 2.5 mg Tablet 2.5 mg PO TID pantoprazole [Protonix] 40 mg tablet,delayed release (DR/EC) 40 mg PO BID 30 Days Qty: 60 0RF insulin aspart U-100 [Novolog FlexPen U-100 Insulin] 100 unit/mL (3 mL) insulin pen See Rx Instructions .ROUTE .COMPLEX Qty: 15 0RF Rx Instructions: Inject, subcut, 3 times daily, after meals, based on moderate dose insulin sliding scale atorvastatin 40 mg tablet 40 mg PO DAILY acetaminophen [Tylenol Extra Strength] 500 mg Tablet 1,000 mg PO Q6H PRN (Reason: Fever Or Pain) Opsumit 10 mg tablet 10 mg PO DAILY ceftriaxone 1 gram recon soln 1 g IV DAILY 14 Days Qty: 10 0RF Changed bumetanide 1 mg tablet 1 mg PO DAILY 30 Days Qty: 30 0RF Discontinued clarithromycin 500 mg tablet 500 mg PO BID 14 Days Qty: 28 0RF metronidazole 500 mg tablet 500 mg PO BID 14 Days Qty: 28 0RF insulin glargine [Basaglar KwikPen U-100 Insulin] 100 unit/mL (3 mL) insulin pen 10 unit SUBCUT BEDTIME Qty: 15 0RF Eliquis 5 mg tablet 5 mg PO BID [employer] OK for DC: Podiatry Discharge Order = DC NOW: Discharge Order (Routine); Ordered 09/14/25 Ordered By: Cruz Fang Referrals: Alfred Lezama MD [Physician, Pulmonology] - 10/01/25 9:30 am Wyatt Andrade MD [Physician, General Surgery] - 2 weeks Satnam Espinoza MD [Physician, Cardiology] - 09/29/25 3:45 pm Wyatt Dotson DPM [Physician, Podiatry] - 09/22/25 10:15 am Patrick Nick MD [Primary Care Provider, [facility]] - 10/05/25 10:50 am Discharge Diet: Cardiac Discharge Activity: Resume usual activity Patient Instructions: Ciprofloxacin (By mouth), Tetracycline (By mouth), Benzonatate (By mouth), Sucralfate (By mouth), Prednisone (By mouth), Metronidazole (By mouth), Midodrine (By mouth), Vancomycin (By mouth), Insulin Glargine (By injection) (Lantus, Lantus SoloStar, Toujeo, Semglee), Heart Attack (DC), Heart Healthy Diet (DC), Foot Ulcers in a Person with Diabetes (DC), Inferior Vena Cava (IVC) Filter Placement (DC), Opioid Safety, Patient Portal & El Instructions Activity Restrictions/Additional Instructions: PODIATRY DISCHARGE INSTRUCTIONS--DR. DOTSON -Dressing changes: Daily saline wet-to-dry -Follow up: Follow-up with [facility] wound care within 7 days of discharge from hospital -Weightbearing status: Limit weightbearing to the left foot -Antibiotics: No antibiotics recommended from podiatry standpoint -Please contact podiatry clinic at [phone] with any questions regarding patient's discharge -recheck hemoglobin in 24 hours - Please follow-up with pulmonary - For your right dialysis catheter, please follow-up with Dr. Felipe concern for exchange - For your anemia please follow-up with general surgery Discharge Attestations Time Spent in Discharge Care*: greater than 30 min Quality Metrics Clinical Quality Measures [ No reported AMI, CVA or VTE this stay] Coding Level of Care Code 61704 Total time (in minutes) for Discharge: 45 Diagnoses End stage renal disease on dialysis N18.6; Z99.2
--- NOTE | 2025-09-14 13:36 | P.PN_ITS ---
Subjective 2 Subjective: getting HD Medications: Reviewed: Yes Vitals/I&O/Wt Last Vital Signs Temp 99.0 F 09/14/25 11:07 Pulse 73 09/14/25 11:07 Resp 16 09/14/25 11:07 BP 115/58 09/14/25 11:07 Pulse Ox 95 09/14/25 09:00 O2 Del Method Nasal Cannula 09/14/25 08:30 O2 Flow Rate 4 09/14/25 08:30 FiO2 30 09/10/25 04:00 09/13/25 09/14/25 09/14/25 22:59 06:59 14:59 Intake Total 510 / 1260 350 / 350 Output Total 1675 / 2175 625 / 2800 550 / 550 Balance -1165 / -915 -625 / -1540 -200 / -200 Weight last 48 hrs Weight 71 kg Weight 69.853 kg Physical Exam 2 Narrative: awake, alert , no distress No JVD PEERLA S1S2 RRR Lungs with s[place]ia crackles Abd soft , non tender Ext no edema no skin rash Data 09/14/25 04:42 09/14/25 04:42 A&P Assessment and plan 1. End stage renal disease on dialysis: Plan: 1. End-stage renal disease: Recently initiated on hemodialysis, . HD per [facility] schedule 2. Acute resp failure ,despite aggressive UF with HD , --> multifactorial , 3. Severe anemia, acute on chronic, plan for 2 units PRBCs, s/p epogen 4. Hypokalemia, improved 5. Elevated troponin, likely demand ischemia, management per primary team 6. h/oTAVR 7. H/O PE - anticoagulation held due to reccurrent anemia , s/p IVC filter placement Today's evaluation. Time spent 40 minutes. PDMP PDMP Reviewed: Not Reviewed Attestations 2 Medical Necessity Statement*: per medicine team Coding Level of Care Code Acute Code for Chg Fwd Diagnoses End stage renal disease on dialysis N18.6; Z99.2
--- NOTE | 2025-09-14 14:39 | PC.SOCIAL ---
Late Entry 09/14/25 @ 1300 IMM Update pg 2 of IMM updated and reviewed w/ patient. Copy provided and copy dated, initialed and placed in chart.
== END 2025-09-14 14:05 | disposition skilled nursing facility (03) | DRG 189 ==
LOC: ER 14:30 → ICU 16:34
PROVIDERS: Internal Medicine Cardiovascular Disease; Admitting Provider Family Medicine; Emergency Provider Emergency Medicine; PCP Family Medicine; Visit Provider Family Medicine
PROC: (CPT 37191; principal; 2025-09-09 09:00)
DX: J96.21 Acute and chronic respiratory failure with hypoxia (principal); N18.6 End stage renal disease; I21.A1 Myocardial infarction type 2; R57.1 Hypovolemic shock; I13.2 Hypertensive heart and chronic kidney disease with heart failure and with stage 5 chronic kidney disease, or end stage renal disease; C34.11 Malignant neoplasm of upper lobe, right bronchus or lung; C77.1 Secondary and unspecified malignant neoplasm of intrathoracic lymph nodes; I27.82 Chronic pulmonary embolism; N17.9 Acute kidney failure, unspecified; R04.2 Hemoptysis; E11.22 Type 2 diabetes mellitus with diabetic chronic kidney disease; I50.9 Heart failure, unspecified; E11.621 Type 2 diabetes mellitus with foot ulcer; L97.522 Non-pressure chronic ulcer of other part of left foot with fat layer exposed; E11.51 Type 2 diabetes mellitus with diabetic peripheral angiopathy without gangrene; E11.40 Type 2 diabetes mellitus with diabetic neuropathy, unspecified; R19.5 Other fecal abnormalities; D69.6 Thrombocytopenia, unspecified; J44.9 Chronic obstructive pulmonary disease, unspecified; K29.70 Gastritis, unspecified, without bleeding; I48.91 Unspecified atrial fibrillation; I27.20 Pulmonary hypertension, unspecified; E87.6 Hypokalemia; D63.1 Anemia in chronic kidney disease; E03.9 Hypothyroidism, unspecified; E87.70 Fluid overload, unspecified; Z95.3 Presence of xenogenic heart valve; Z99.2 Dependence on renal dialysis; Z99.81 Dependence on supplemental oxygen; Z79.4 Long term (current) use of insulin; Z85.828 Personal history of other malignant neoplasm of skin; Z95.828 Presence of other vascular implants and grafts; Z79.01 Long term (current) use of anticoagulants
CPT/HCPCS: 32555; 36415; 36416; 36430; 36592; 36600; 37191; 71045; 71275; 74177; 76604; 80048; 80051; 80053; 80061; 80074; 80202; 80503; 81001; 82274; 82330; 82550; 82728; 82803; 82805; 82962; 83010; 83540; 83605; 83615; 83735; 83880; 84100; 84145; 84484; 85025; 85045; 85610; 85651; 85730; 86140; 86850; 86900; 86902; 86905; 86920; 87040; 87070; 87086; 87806; 90935; 92610; 93005; 93308; 93970; 94640; 94660; 94664; 96365; 96366; 96372; 96375; 97110; 97116; 97162; 97165; 99152; 99153; 99285; A6446; C1769; C1880; C1887; C1894; J0696; J1644; J1815; J2185; J2250; J2405; J2470; J2919; J3010; J3373; J3490; J7030; J7040; J7050; J7512; J9999; P9016; P9047; Q3014; Q5105; Q9967

== ENCOUNTER 2025-09-21 08:02 | Outpatient (CLI) | payer MEDICARE, SELFPAY | END 2025-09-21 08:03 | disposition home or self-care (01) | PROVIDERS: PCP Family Medicine; Visit Provider Surgery | DX: J44.89 Other specified chronic obstructive pulmonary disease (principal); A04.8 Other specified bacterial intestinal infections; I27.20 Pulmonary hypertension, unspecified; C34.91 Malignant neoplasm of unspecified part of right bronchus or lung; I26.99 Other pulmonary embolism without acute cor pulmonale; R91.8 Other nonspecific abnormal finding of lung field; R59.0 Localized enlarged lymph nodes; Z99.81 Dependence on supplemental oxygen; Z86.711 Personal history of pulmonary embolism; Z87.891 Personal history of nicotine dependence | CPT/HCPCS: 11042; 87338; 99214; Q3014 ==

== ENCOUNTER 2025-09-28 11:20 | Outpatient (CLI) | payer MEDICARE, SELFPAY ==
--- NOTE | 2025-09-28 11:28 | XR_ITS ---
WS: [id number] Exam: XR foot LT min 3V* [id number] Date/Time of Exam: 09/28/2025 11:28 AM Reason For Exam: chronic foot wound 5th metatarsal head Comparison 08/03/2025. There is dorsal dislocation of the base of the fifth proximal phalanx in relationship to the metatarsal head. No obvious acute fracture. Large skin ulceration in the region of the fifth MP joint. No obvious acute bone destruction. There are degenerative changes in the IP joints, the first MP joint and the midfoot joints. Extensive vascular calcifications about the foot. XR/XR foot LT min 3V* [id number] IMPRESSION: 1. Dislocated fifth MP joint as above. No fracture. No acute bone destruction n oted. 2. Large open skin wound in the region of the fifth MP joint. Degenerative allen ges.
== END 2025-09-28 11:21 | disposition home or self-care (01) ==
LOC: RAD 11:22
PROVIDERS: PCP Family Medicine; Visit Provider Thoracic Surgery (Cardiothoracic Vascular Surgery)
DX: E11.621 Type 2 diabetes mellitus with foot ulcer (principal); L97.509 Non-pressure chronic ulcer of other part of unspecified foot with unspecified severity; S63.064A Dislocation of metacarpal (bone), proximal end of right hand, initial encounter; X58.XXXA Exposure to other specified factors, initial encounter
CPT/HCPCS: 11042; 73630

== ENCOUNTER → 2025-09-29 14:39 | Outpatient (BNVA) | payer MEDICARE, SELFPAY | PROVIDERS: PCP Family Medicine; Visit Provider Podiatrist Foot & Ankle Surgery | DX: E11.621 Type 2 diabetes mellitus with foot ulcer (principal); L97.524 Non-pressure chronic ulcer of other part of left foot with necrosis of bone; M21.622 Bunionette of left foot; E11.42 Type 2 diabetes mellitus with diabetic polyneuropathy; Z79.4 Long term (current) use of insulin | CPT/HCPCS: 11044; 99214 ==

== ENCOUNTER 2025-10-01 06:30 | Day surgery (SDC) | payer MEDICARE, SELFPAY ==
[2025-10-01 07:10] VITALS: BMI 28.3
[2025-10-01 07:25] LABS: Hematocrit 27.0 % (37-53); Hemoglobin 8.50 g/dL (11.27-16.99); Mean Corpuscular HGB Conc 31.5 g/dL (30-55); Mean Corpuscular Hemoglobin 30.2 pg (27-33); Mean Corpuscular Volume 96.1 fl (82-101); Nucleated Red Blood Cells % 0 %; Platelet Count 200 10^3/cmm (157-399); Red Blood Count 2.81 10^6/uL (3.85-5.65); White Blood Count 9.22 10^3/uL (3.29-11.43)
[2025-10-01 07:42] LABS: Anion Gap 13.1 (5-19); Blood Urea Nitrogen 23 mg/dL (8-23); Calcium 8.3 mg/dL (8.5-10.5); Carbon Dioxide 29 mmol/L (22-29); Chloride 101 mmol/L (98-107); Creatinine Clr Calc Pharmacy 34.8499; Glucose 135 mg/dL (65-115); Osmolality Calculated 294 mOsm/kg (285-295); Potassium 4.1 mmol/L (3.5-5.1); Sodium 139 mmol/L (136-145)
--- NOTE | 2025-10-01 07:54 | ANES.PREANE2 ---
Pre-Anesthetic Assessment Height/Weight: Height 1.63 m Weight 74.843 kg O2 Del Method O2 Flow Rate Nasal Cannula 4 10/01/25 07:16 10/01/25 07:16 Preop Diagnosis: Osteomyelitis left foot Operation Date: 10/01/25 08:20 Proposed Procedures p Incision And Drainage Incision of Bone Cortex(Left) - Sylvain Mendoza DPM Familial anesthetic complications: none Was Beta Mateo taken within 24 hours: N/A Was Clonidine taken within 24 hours: N/A Last intake: Intake Last Liquid Date 09/30/25 Last Liquid Time 22:00 Last Solid Date 09/30/25 Last Solid Time 22:00 Social No alcohol and No tobacco Exam alert, oriented x 3, clear to auscultation bilaterally and regular rate & rhythm Airway Mallampati: Class III Pulmonary Chronic Obstructive Pulmonary Disease R lung mass, on o2 CV/HEM Myocardial Infarction PE TAVR Metabolic Diabetes Mellitus Anesthetic Plan ASA status: 4 Anesthesia: Local Only Other: Plan for local only due patient's baseline condition, propofol or fentanyl prn if displaying especially poor tolerance Risk of > 500 ml blood loss (7ml/kg in children): No Medications/Allergies Home Medications ?Medication ?Instructions ?Recorded ?Confirmed ?Last Taken ?Type Cam boot to left #1 ea 05/15/23 09/29/25 08/19/25 Rx levothyroxine 112 mcg tablet 112 mcg PO DAILY 11/27/23 09/30/25 09/30/25 History riociguat 2.5 mg tablet (Adempas) 2.5 mg PO TID 11/27/23 09/30/25 09/30/25 History Diabetic shoes #1 ea 08/25/24 09/29/25 08/19/25 Rx CAM walker #1 ea 04/20/25 09/29/25 08/19/25 Rx acetaminophen 500 mg tablet 1,000 mg PO Q6H PRN Fever Or Pain 07/18/25 09/30/25 09/29/25 History (Tylenol Extra Strength) atorvastatin 40 mg tablet 40 mg PO DAILY 07/18/25 09/30/25 09/30/25 History macitentan 10 mg tablet (Opsumit) 10 mg PO DAILY 08/02/25 09/30/25 09/30/25 History insulin aspart U-100 100 unit/mL See Rx Instructions .Route 08/31/25 09/30/25 09/30/25 Rx (3 mL) subcutaneous pen (Novolog .COMPLEX #15 mL FlexPen U-100 Insulin aspart) bumetanide 1 mg tablet 1 mg PO DAILY 30 days #30 tabs 09/12/25 09/30/25 09/30/25 Rx midodrine 5 mg tablet 5 mg PO TID 30 days #90 tabs 09/12/25 09/30/25 09/30/25 Rx insulin glargine 100 unit/mL 15 unit (0.15 mL) SUBCUT Q12H 30 09/14/25 09/30/25 09/30/25 Rx subcutaneous solution (Lantus days #10 mL U-100 Insulin) sucralfate 1 gram tablet (Carafate) 1 g PO BID 4 weeks #56 tabs 09/14/25 09/30/25 09/30/25 Rx oxygen 09/21/25 09/29/25 Unknown History tiotropium 2.5 mcg-olodaterol 2.5 2 puff inhalation DAILY 6 months 09/21/25 09/30/25 09/30/25 Rx mcg/actuation mist for inhalation #4 grams (Stiolto Respimat) benzonatate 100 mg capsule 100 mg PO TID 09/30/25 09/30/25 09/30/25 History pantoprazole 40 mg tablet,delayed 40 mg PO DAILY 09/30/25 09/30/25 09/30/25 History release Allergies Allergy/AdvReac Type Severity Reaction Status Date / Time No Known Allergies Allergy Verified 09/30/25 11:46 [facility] Anesthesia Medical History COPD with chronic bronchitis Mediastinal lymphadenopathy Lung mass Pericardial effusion Tobacco abuse Anemia Diabetes Warfarin anticoagulation Chest pain History of pulmonary embolism Congestive heart failure History of nonmelanoma skin cancer Hypothalamic hypothyroidism Hypertension History of blood clots COPD (chronic obstructive pulmonary disease) History of pulmonary embolism Surgical History S/P TAVR (transcatheter aortic valve replacement) History of rotator cuff surgery Social History Smoking and tobacco/nicotine status: former use of tobacco/nicotine (2 ppd X 60 years. Quit Spet. 2024) Quit status (tobacco/nicotine): has quit using Year quit tobacco: 2024 Former quit date comment: a week ago Alcohol intake: never Substance/Drug Use: never Marital status: Life Partner Data Anesthesia 10/01/25 07:05 10/01/25 07:05 Short CBC 10/01/25 Range/Units 07:05 WBC 9.22 (3.29-11.43) 10^3/uL Hgb 8.50 L (11.27-16.99) g/dL Hct 27.0 L (37-53) % MCV 96.1 (82-101) fl Plt Count 200 (157-399) 10^3/cmm Neut % (Auto) 63.5 % Neut # (Auto) 5.86 (1.8-7.7) 10^3/uL BMP 10/01/25 07:05 Sodium 139 Potassium 4.1 Chloride 101 Carbon Dioxide 29 BUN 23 Creatinine 1.8 H Glucose 135 H Calcium 8.3 L Cardiac Studies: Echocardiogram 08/04/25 Echocardiogram Limited Views 09/04/25
--- NOTE | 2025-10-01 08:06 | W.PM.OPSUD ---
Surgery/Procedure H&P Update DATE OF PROCEDURE: October 01, 2025 DATE H&P PERFORMED: 09/29/25 H&P UPDATE INFORMATION: I have reviewed H&P completed within last 30 days, I have examined patient prior to procedure, No changes to prior documentation, H&P is in [facility] EMR on date indicated and Risks and benefits of the procedure reviewed PREOP DIAGNOSIS: Osteomyelitis left foot PLANNED PROCEDURE: Operation Date: 10/01/25 08:20 Proposed Procedures p Incision And Drainage Incision of Bone Cortex(Left) - Sylvain Mendoza DPM
[2025-10-01] MEDS: BUPivacaine 0.5% INJ 10 mL 15 ML INJECTION (08:45)
[2025-10-01 09:03] VITALS: BP 120/59; PULSE 92; RESP 19; TEMP 37.5; O2SAT 96
[2025-10-01 09:08] VITALS: BP 128/58; PULSE 92; RESP 18; O2SAT 95
--- NOTE | 2025-10-01 09:10 | P.OP_ITS ---
Operative Report Date of procedure: October 01, 2025 Pre-op diagnosis: Poppy bonilla, left M21.622 Chronic ulcer of left foot with necrosis of bone L97.524 Diabetic polyneuropathy associated with type 2 diabetes mellitus E11.42 Post-op diagnosis: Poppy bonilla, left M21.622 Chronic ulcer of left foot with necrosis of bone L97.524 Diabetic polyneuropathy associated with type 2 diabetes mellitus E11.42 Post-op findings: Devitalized bone left fifth metatarsal head Procedure done: Incision of bone cortex left foot. CPT code 36894 Implants: 3-0 Vicryl, 4-0 nylon Specimens removed/disposition: Left fifth metatarsal head sent to microbiology for Gram stain culture and sensitivity Pathology: None Surgeon: Sylvain Mendoza DPM Supervisor Powdered Sugar: David Estimated blood loss: 15 7 IV fluids: See intraoperative documentation Urine output: None Complications: No complications Brief History: 70-year-old male with significant comorbidities presents for surgical evaluation of left foot wound to exposed bone, wound probes directly to fifth metatarsal head. Currently has PICC line in place, wound care weekly, infusions of vancomycin. Patient on dialysis Sunday and Fridays, diabetes history of aortic valve replacement, history of CHF, peripheral arterial disease, has IVC placed, referral pending to reed repairer in [place] for concerning lung mass. Procedure: Under mild sedation the patient was brought to the operating room and remained on the gurney in supine position. A timeout was performed. Anesthesia was administered by the anesthesia service. Local anesthesia was injected by myself consisting of 30 cc of one-to-one mixture 1% lidocaine and 0.5% Marcaine plain in a left reverse El block fashion. Well-padded pneumatic tourniquet was applied to the left ankle. Left lower extremity was then scrubbed, prepped and draped utilizing normal aseptic technique. Left foot was then elevated and tourniquet inflated to 250 mmHg. Attention was directed to the lateral aspect of the left forefoot where a full- thickness wound lateral to the fifth metatarsal head was appreciated and probe directly to bone could visualize the fifth metatarsal head laterally with pulling away cartilage surface and poor density and dusky betts appearance to bone. Incision was made over the dorsal lateral aspect of the left fifth metatarsal full-thickness down to bone with a 15 blade. Incision of bone cortex performed sharply and excisionally in nature with pickups and a 15 blade. And a sagittal saw was utilized in a beveled fashion to resect the fifth metatarsal head from lateral to medial in a beveled fashion. The fifth metatarsal head was removed and sent to microbiology for Gram stain culture and sensitivity. All bleeders were ligated and cauterized as necessary. No further devitalized bone appreciated. Incision was irrigated with Irrisept and saline solution and closed in a layered fashion with deep tissues reapproximated with 3-0 Vicryl and skin with 4-0 nylon, the most distal aspect of the incision was left open and 1/4 inch [place] drain was placed. The incision was then dressed with Xeroform, sterile 4 x 4 gauze, Kerlix and Paulo wrap without compression as to not occlude arterial perfusion. Stockinette and postop shoe applied to the left lower extremity. Tourniquet was then deflated and a prompt hyperemic response is noted to the distal digits of the left foot. Patient tolerated the procedure and anesthesia well and was transferred to the PACU with vital signs stable and vascular status intact. Following a period of postoperative monitoring we discharged home without home care instructions and scheduled follow-up. Will coordinate with wound care clinic in regards to continuation of wound care moving forward. Will also collaborate in regards to PICC line and extension of IV antibiotics.
[2025-10-01 09:13] VITALS: BP 128/57; PULSE 91; RESP 18; O2SAT 90
[2025-10-01 09:18] VITALS: BP 129/58; PULSE 90; RESP 18; TEMP 37.1; O2SAT 90
[2025-10-01 09:32] VITALS: BP 120/65; PULSE 94; RESP 18; TEMP 37.1; O2SAT 90
--- NOTE | 2025-10-01 10:15 | ANE.PACU2 ---
Inpatient post-anesthesia follow up: Airway intact: Yes Vital signs: Temperature 98.7 F Pulse Rate 94 Respiratory Rate 18 Blood Pressure 120/65 Pulse Oximetry 90 Oxygen Delivery Me thod Nasal Cannula Oxygen Flow Rate 3 Fraction of Inspir ed Oxygen Hydration adequate: Yes Nausea and vomiting: No Pain level: 1 Mental status: Baseline
== END 2025-10-01 10:16 | disposition home or self-care (01) ==
PROVIDERS: Anesthesiology; PCP Family Medicine; Visit Provider Podiatrist Foot & Ankle Surgery
PROC: (CPT 28005; principal; 2025-10-01 08:10)
DX: M21.622 Bunionette of left foot (principal); L97.524 Non-pressure chronic ulcer of other part of left foot with necrosis of bone; E11.42 Type 2 diabetes mellitus with diabetic polyneuropathy; J44.9 Chronic obstructive pulmonary disease, unspecified; Z99.81 Dependence on supplemental oxygen; I25.2 Old myocardial infarction; E11.9 Type 2 diabetes mellitus without complications; Z79.4 Long term (current) use of insulin; K21.9 Gastro-esophageal reflux disease without esophagitis; Z79.01 Long term (current) use of anticoagulants; Z86.711 Personal history of pulmonary embolism; E03.9 Hypothyroidism, unspecified; D64.9 Anemia, unspecified; Z87.891 Personal history of nicotine dependence; Z85.828 Personal history of other malignant neoplasm of skin; I11.0 Hypertensive heart disease with heart failure; I50.9 Heart failure, unspecified
CPT/HCPCS: 28005; 36416; 80048; 82962; 85025; 87070; 87176; 87205; J2704; J3010; J3490; J7030; J9999

== ENCOUNTER → 2025-10-05 09:18 | Outpatient (BNVA) | payer MEDICARE, SELFPAY | PROVIDERS: PCP Family Medicine; Visit Provider Thoracic Surgery (Cardiothoracic Vascular Surgery) | DX: E11.52 Type 2 diabetes mellitus with diabetic peripheral angiopathy with gangrene (principal); E11.621 Type 2 diabetes mellitus with foot ulcer; L97.522 Non-pressure chronic ulcer of other part of left foot with fat layer exposed | CPT/HCPCS: 11042 ==

== ENCOUNTER → 2025-10-12 08:47 | Outpatient (BNVA) | payer MEDICARE, SELFPAY | PROVIDERS: PCP Family Medicine; Visit Provider Thoracic Surgery (Cardiothoracic Vascular Surgery) | DX: Z09 Encounter for follow-up examination after completed treatment for conditions other than malignant neoplasm (principal); Z87.2 Personal history of diseases of the skin and subcutaneous tissue | CPT/HCPCS: 99213 ==

== ENCOUNTER 2025-10-16 09:21 | Inpatient (IN) | payer MEDICARE, SELFPAY ==
[2025-10-16] VITALS (44 sets, daily range): BP systolic 93–139; BP diastolic 38–68; PULSE 9–106; RESP 9–32; TEMP 36.3–37.1; O2SAT 84–99; BMI 30.9
--- OUTSIDE RECORDS SUMMARY | 2025-10-16 09:26 | XMS_ITS | Clinical Summary ---
Author Organization [facility] Address [address] [facility] [address] [place] [address] Phone Care Team Providers Care Threading Machine Feeder Automatic Name Role Phone Unavailable Primary Care Provider Unavailabl e Medications apixaban (Eliquis) 5 MG tablet Take 5 mg by mouth in the morning and 5 mg in the evening. Active Encounters Date Type Department Care Team Description 10/14/2025 Orders Only [facility] [address] [place] [address] Tomeka Kelly MD 10/07/2025 Orders Only [facility] [address] [place] [address] Tomeka Kelly MD 10/06/2025 Orders Only [facility] [address] [place] [address] Tomeka Kelly MD 10/05/2025 Orders Only [facility] [address] [place] [address] Tomeka Kelly MD 09/30/2025 Orders Only [facility] [address] [place] [address] Tomeka Kelly MD 09/28/2025 Orders Only [facility] [address] [place] [address] Tomeka Kelly MD 09/28/2025 Treatment 8[facility] [address] [place] [phone] Lacy De Jesus, AUTHORIZATION REP Acute pyelonephritis 09/23/2025 Orders Only [facility], [facility] [address] [place] [phone] Tomeka Kelly MD 09/21/2025 [facility] [address] [place] [address] Lacy De Jesus, AUTHORIZATION REP Acute pyelonephritis 09/21/2025 Orders Only [facility], [facility] [address] [place] [address] Lacy De Jesus, AUTHORIZATION REP 09/02/2025 Orders Only [facility], [facility] [address] [place] [address] Tomeka Kelly MD from Last [...] Date Last Done Comments Pneumococcal Vaccine: 50+ Years (1 of 2 - PCV) 973 Hepatitis B Vaccine (1 of 5 - Risk Dialysis 4-dose series) 1974 Colorectal Cancer Screening: Annual FOBT 2003 Colorectal Cancer Screening: Colonoscopy 2003 Colorectal Cancer Screening: Sigmoidoscopy 2003 Influenza Vaccine (#1) 2025 08/22/2024 Diabetes: Hemoglobin A1C 08/28/2025 12/06/2023 Diabetes: Ophthalmology Exam 08/28/2025 Diabetes: Pedal Pulse Checked 08/28/2025 Diabetes: Sensory Foot Exam 08/28/2025 Diabetes: Visual Foot Exam 08/28/2025 Procedures Procedure Name Priority Date/Time Associated Diagnosis Comments HEMOGLOBIN Routine 10/14/2025 PHOSPHATE ( PHOSPHORUS) Routine 10/14/2025 CALCIUM Routine 10/14/2025 CO2, TOTAL Routine 10/14/2025 CHLORIDE Routine 10/14/2025 SODIUM Routine 10/14/2025 BUN Routine 10/14/2025 CREATININE, SERUM Routine 10/14/2025 POTASSIUM Routine 10/14/2025 HEMOGLOBIN Routine 10/07/2025 CO2, TOTAL Routine 10/06/2025 CHLORIDE Routine 10/06/2025 SODIUM Routine 10/06/2025 BUN Routine 10/06/2025 CREATININE, SERUM Routine 10/06/2025 POTASSIUM Routine 10/06/2025 BUN Routine 10/05/2025 CREATININE, SERUM Routine 10/05/2025 HEMOGLOBIN Routine 09/30/2025 PHOSPHATE ( PHOSPHORUS) Routine 09/30/2025 CALCIUM Routine 09/30/2025 CO2, TOTAL Routine 09/30/2025 CHLORIDE Routine 09/30/2025 SODIUM Routine 09/30/2025 POTASSIUM Routine 09/30/2025 CREAT CLEARANCE, NORMALIZED Routine 09/28/2025 CREATININE, URINE, TIMED Routine 09/28/2025 BUN Routine 09/28/2025 [facility]PECTRA [facility] LAB RESULTS Routine 09/23/2025 VANCOMYCIN, TROUGH Routine 09/23/2025 HEPATITIS B SURFACE ANTIGEN W/REFL CONFIRM Routine 09/23/2025 DIFFERENTIAL WITH WBC Routine 09/23/2025 CBC Routine 09/23/2025 PLATELET COUNT Routine 09/23/2025 POST DIALYSIS BUN Routine 09/23/2025 IRON AND TIBC Routine 09/23/2025 MAGNESIUM Routine 09/23/2025 GLUCOSE, RANDOM Routine 09/23/2025 ALBUMIN Routine 09/23/2025 PROTEIN, TOTAL, SERUM Routine 09/23/2025 PHOSPHATE ( PHOSPHORUS) Routine 09/23/2025 CALCIUM Routine 09/23/2025 CO2, TOTAL Routine 09/23/2025 CHLORIDE Routine 09/23/2025 SODIUM Routine 09/23/2025 BUN Routine 09/23/2025 CREATININE, SERUM Routine 09/23/2025 POTASSIUM Routine 09/23/2025 CHEMISTRY Routine 09/16/2025 HEMATOLOGY Routine 09/16/2025 POST CHEMISTRY Routine 09/03/2025 IMMUNO CHEMISTRY Routine 09/02/2025 HEMATOLOGY Routine 09/02/2025 CHEMISTRY Routine 09/02/2025 from Last 3 Months Results * (ABNORMAL) Hemoglobin (10/14/2025) Only the most recent of3 resultswithin the time period is included. Hemoglobin 9.0(L) 13.2 - 14.0 g/dL [facility] 10/14/2025 10/13/2025 8:4 4 AM SALT MANAGER Narrative Resulting Agency Comment Performing Organization Information: Site ID: MELONIE Name: [facility] Address: [address] [place] [phone] Director: Haja Barker MD Tomeka Kelly MD LAB BLOOD ORDERABLES Final Re sult Performing Organization Address City/[facility]/ZIP Co de Phone Number [email or web address] [address] [place] [phone] * (ABNORMAL) BUN (10/14/2025) Only the most recent of5 resultswithin the time period is included. BUN 44(H) 7 - 25 mg/dL [facility] 10/14/2025 10/13/2025 8:4 4 AM SALT MANAGER Narrative Resulting Agency Comment Performing Organization Information: Site ID: MELONIE Name: [employer] Address: [address] [place] [phone] Director: Haja Barker MD Tomeka Kelly MD LAB BLOOD ORDERABLES Final Re sult Performing Organization Address City/[facility]/ZIP Co de Phone Number [facility] [address] [place] [phone] * Sodium (10/14/2025) Only the most recent of4 resultswithin the time period is included. Sodium 140 135 - 146 mmol/L [facility] 10/14/2025 10/13/2025 8:4 4 AM SALT MANAGER Narrative Resulting Agency Comment Performing Organization Information: Site ID: MELONIE Name: [facility] Address: [address] [place] [address] Director: Haja Barker MD us Tomeka Kelly MD LAB BLOOD ORDERABLES Final Re sult Performing Organization Address [facility] Co de Phone Number [facility] [address] * Potassium (10/14/2025) Only the most recent of4 resultswithin the time period is included. Potassium 4.0 3.5 - 5.3 mmol/L [facility] 10/14/2025 10/13/2025 8:4 4 AM SALT MANAGER Narrative Resulting Agency Comment Performing Organization Information: Site ID: MELONIE Name: Eli Jiméneza Address: [address] [place] [address] Director: Haja Barker MD us Tomeka Kelly MD LAB BLOOD ORDERABLES Final Re sult Performing Organization Address [facility] Co de Phone Number [facility] [id number] [place] [phone] * Phosphorus (10/14/2025) Only the most recent of3 resultswithin the time period is included. Phosphorus 4.3 3.0 - 4.3 mg/dL [facility] 10/14/2025 10/13/2025 8:4 4 AM SALT MANAGER Narrative Resulting Agency Comment Performing Organization Information: Site ID: MELONIE Name: Eli Connell Address: [address] [place] [phone] Director: Haja Barker MD us Tomkea Kelly MD LAB BLOOD ORDERABLES Final Re sult Performing Organization Address [facility]/ZIP Co de Phone Number [facility] [address] [place] [phone] * (ABNORMAL) Creatinine, serum (10/14/2025) Only the most recent of4 resultswithin the time period is included. Creatinine 2.76(H) 0.70 - 1.28 mg/dL [facility] 10/14/2025 10/13/2025 8:4 4 AM SALT MANAGER Narrative Resulting Agency Comment Performing Organization Information: Site ID: MELONIE Name: Eli Connell Address: [address] [place] [phone] Director: Haja Barker MD us Tomeka Kelly MD LAB BLOOD ORDERABLES Final Re sult Performing Organization Address [facility] Co de Phone Number [facility] [address] [place] [phone] * Chloride (10/14/2025) Only the most recent of4 resultswithin the time period is included. Chloride 106 98 - 110 mmol/L [facility] 10/14/2025 10/13/2025 8:4 4 AM SALT MANAGER Narrative Resulting Agency Comment Performing Organization Information: Site ID: MELONIE Name: Eli Connell Address: [address] [place] [phone] Director: Haja Barker MD us Tomeka Kelly MD LAB BLOOD ORDERABLES Final Re sult Performing Organization Address City/[facility]/ZIP Co de Phone Number [facility] [address] [place] [phone] * CO2 (10/14/2025) Only the most recent of4 resultswithin the time period is included. Bicarbonate (CO2) 23 20 - 29 mmol/L [facility] 10/14/2025 10/13/2025 8:4 4 AM SALT MANAGER Narrative Resulting Agency Comment Performing Organization Information: Site ID: MELONIE Name: [facility] Address: [address] [place] [phone] Director: Haja Barker MD us Tomeka Kelly MD LAB BLOOD ORDERABLES Final Re sult Performing Organization Address [facility] Co de Phone Number [email or web address] [address] [place] [phone] * Calcium (10/14/2025) Only the most recent of3 resultswithin the time period is included. Calcium 8.6 8.6 - 10.0 mg/dL [email or web address] 10/14/2025 10/13/2025 8:4 4 AM SALT MANAGER Narrative Resulting Agency Comment Performing Organization Information: Site ID: MELONIE Name: [facility] Address: [address] [place] [phone] Director: Haja Barker MD us Tomeka Kelly MD LAB BLOOD ORDERABLES Final Re sult Performing Organization Address [facility] Co de Phone Number [facility] [address] [place] [phone] * (ABNORMAL) Creatinine Clearance, Normalized (09/28/2025) Creatinine 2.53(H) 0.70 - 1.28 mg/dL [facility] [place] Creatinine, Urine Timed 50 mg/dL [facility] Volume, (UVOL) 1,300 mL [facility] Collection Interval, Ur 24.0 hours [facility] Creatinine, 24H Ur 0.7 0.7 - 1.8 g/24 h [facility] Amputee Status NO AMPUTATIONS [facility] Creatinine Clearance 24Hr Urine 18 mL/min [facility] Creat Clear, Urine Norm 17.0(L) 94.0 - 122.0 mL/min [facility] BSA (Bates) 1.82 sq.m [facility] Patient Height 163.0 cm [facility] Weight (KG) 76.1 kg [facility] 09/28/2025 09/26/2025 9:3 3 AM SALT MANAGER Narrative Resulting Agency Comment Performing Organization Information: Site ID: MELONIE Name: [facility] Address: [address] [place] [phone] Director: Haja Barker MD Tomeka Kelly MD LAB [email or web address] SOLICITED RESULTS Final Result Performing Organization Address City/[facility] Co de Phone Number [facility] [address] [place] [phone] * Creatinine, urine, timed (09/28/2025) Volume, (UVOL) 1,300 mL [facility] Collection Interval, Ur 24.0 hours [facility] Creatinine, 24H Ur 0.7 0.7 - 1.8 g/24 h [facility] Creatinine, Urine Timed 50 mg/dL [facility] 09/28/2025 09/26/2025 9:3 3 AM SALT MANAGER Narrative Resulting Agency Comment Performing Organization Information: Site ID: MELONIE Name: [facility] Address: [address] [place] [phone] Director: Haja Barker MD us Tomeka Kelly MD LAB URINE ORDERABLES Final Re sult Performing Organization Address City/[facility]/ZIP Co de Phone Number [facility] [address] [place] [phone] * (ABNORMAL) Iron and TIBC (09/23/2025) Iron, Total 43(L) 50 - 180 mcg/dL [facility] TIBC 160(L) 250 - 425 mcg/dL (calc) [facility] Iron Saturation (TSat) 27 20 - 48 % (calc) [facility] 09/23/2025 09/21/2025 9:4 1 AM SALT MANAGER Narrative Resulting Agency Comment Performing Organization Information: Site ID: MELONIE Name: [facility] Address: [address] [place] [phone] Director: Haja Barker MD Tomeka Kelly MD LAB BLOOD ORDERABLES Final Re sult Performing Organization Address [facility] Co de Phone Number [facility] [address] * Hepatitis B Surface Ag w/Reflex Confirmation (09/23/2025) Pathologist [facility] Hep B Surface Antigen NON-REACTIVE NON-REACT YADI [facility] [place] Comment: For additional information, please refer to http://education.The Online 401/faq/BEC731 (This link is being provided for informational/ educational purposes only.) Confirmation CANCELED [email or web address] [place] Comment:Result canceled by kit christine. 09/23/2025 09/21/2025 9:4 1 AM SALT MANAGER Narrative Resulting Agency Comment Performing Organization Information: Site ID: MELONIE Name: [facility] Address: [address] [place] [phone] Director: Haja Barker MD us Tomeka Kelly MD LAB BLOOD ORDERABLES Final Re sult Performing Organization Address [facility] Co de Phone Number [facility] [address] * [facility] Lab Results (09/23/2025) WSTDKT/V 2.6 [facility] Center PCR 43.65 [facility] eKt/V (Tattersall) 1.52 [facility] Center spKt/V [facility] 1.74 [facility] spKt/V (Daugirdas II) 1.74 [facility] nPCR_HD 0.70 [facility] eKt/V [facility] 1.51 [facility] eKdrt/V 1.51 [facility] eNPCR 0.64 [facility] 09/23/2025 09/23/2025 [facility] [place] LAB BLOOD ORDERABLES Final Result Performing Organization Address City/[facility]/ZIP Co de Phone Number [facility] Contact Performing lab Unknown, [place] * Post Dialysis BUN (09/23/2025) BUN Post Dialysis 7 7 - 25 mg/dL [facility] 09/23/2025 09/21/2025 9:4 1 AM SALT MANAGER Narrative Resulting Agency Comment Performing Organization Information: Site ID: [place] Name: [employer] Address: [address] [place] [phone] Director: Haja Barker MD Tomeka Kelly MD LAB BLOOD ORDERABLES Final Re sult [facility] [address] [place] [phone] * Differential with WBC (09/23/2025) WBC 8.7 3.8 - 10.8 Thousand/ uL [facility] Neutrophils Absolute 5,873 1,500 - 7,800 cells/uL [facility] Band Neutrophils Absolute, Manual Count CANCELED 0 - 750 cells/uL [facility] Comment:Result canceled by kit park ancillary. Metamyelocytes Absolute CANCELED 0 cells/uL [facility] Comment:Result canceled by t he ancillary. Absolute Myelocytes CANCELED 0 cells/uL [facility] Comment:Result canceled by t he ancillary. Absolute Promyelocytes CANCELED 0 cells/uL [facility] Comment:Result canceled by t he ancillary. Lymphocytes Absolute 1,766 850 - 3,900 cells/uL [facility] Monocytes Absolute 914 200 - 950 cells/uL [facility] Eosinophils Absolute 122 15 - 500 cells/uL [facility] Basophils Absolute 26 0 - 200 cells/uL [facility] Blasts Absolute CANCELED 0 cells/uL [facility] Comment:Result canceled by t he ancillary. NRBC Absolute CANCELED 0 cells/uL [facility] Comment:Result canceled by t he ancillary. Neutrophils Relative 67.5 % [facility] Bands Absolute CANCELED % [facility] Comment:Result canceled by t he ancillary. Metamyelocytes Percent CANCELED % [facility] Comment:Result canceled by t he ancillary. Myelocytes Relative CANCELED % [facility] Comment:Result canceled by t he ancillary. Promyelocytes Relative CANCELED % [facility] Comment:Result canceled by t he ancillary. Lymphocytes 20.3 % [facility] Variant lymphocytes/100 WBC (Bld) CANCELED 0 - 10 % [facility] Comment:Result canceled by t he ancillary. Monocytes 10.5 % [facility] Eosinophils 1.4 % [facility] Basophils Relative 0.3 % [facility] Blasts CANCELED % [facility] Comment:Result canceled by t he ancillary. nRBC CANCELED 0 /100 WBC [facility] Comment:Result canceled by t he ancillary. Comment(s) CANCELED [facility] Comment:Result canceled by t he ancillary. 09/23/2025 09/21/2025 9:4 1 AM SALT MANAGER Narrative Resulting Agency Comment Performing Organization Information: Site ID: MELONIE Name: [facility] Address: [address] [place] [phone] Director: Haja Barker MD Tomeka Kelly MD LAB BLOOD ORDERABLES Final Re sult Performing Organization Address [facility] de Phone Number [facility] [address] [place] [phone] * (ABNORMAL) Platelet count (09/23/2025) Pathologist [facility] Platelets 126(L) 140 - 400 Thousand/uL [facility] 09/23/2025 09/21/2025 9:4 1 AM SALT MANAGER Narrative Resulting Agency Comment Performing Organization Information: Site ID: MELONIE Name: [facility] Address: [address] [place] [phone] Director: Haja Barker MD Tomeka Kelly MD LAB BLOOD ORDERABLES Final Re sult Performing Organization Address [facility] Co de Phone Number [facility] [address] [place] [phone] * (ABNORMAL) CBC (09/23/2025) Pathologist [facility] WBC 8.7 3.8 - 10.8 Thousand/u L [facility] RBC 2.93(L) 4.20 - 5.80 Million/uL [facility] Hemoglobin 8.6(L) 13.2 - 14.0 g/dL [facility] Hematocrit 27.2(L) 38.5 - 50.0 % [facility] MCV 92.8 80.0 - 100.0 fL [facility] MCH 29.4 27.0 - 33.0 pg [facility] MCHC 31.6(L) 32.0 - 36.0 g/dL [facility] Comment: For adults, a slight decrease in the calculated MCHC value (in the range of 30 to 32 g/dL) is most likely not clinically significant; however, it should be interpreted with caution in correlation with other red cell parameters and the patient's clinical condition. RDW 15.2(H) 11.0 - 15.0 % [facility] 09/23/2025 09/21/2025 9:4 1 AM SALT MANAGER Narrative Resulting Agency Comment Performing Organization Information: Site ID: MELONIE Name: [email or web address] Address: [address] [place] [phone] Director: Haja Barker MD Tomeka Kelly MD LAB BLOOD ORDERABLES Final Re sult Performing Organization Address [facility] de Phone Number [facility] [address] [place] [phone] * (ABNORMAL) Protein, total (09/23/2025) Total Protein 4.8(L) 6.1 - 8.1 g/dL [facility] 09/23/2025 09/21/2025 9:4 1 AM SALT MANAGER Narrative Resulting Agency Comment Performing Organization Information: Site ID: MELONIE Name: [facility] Address: [address] [place] [phone] Director: Haja Barker MD Tomeka Kelly MD LAB BLOOD ORDERABLES Final Re sult Performing Organization Address [facility] Co de Phone Number [facility] [address] [place] [phone] * (ABNORMAL) Magnesium (09/23/2025) Magnesium 1.4(L) 1.6 - 2.5 mg/dL [facility] 09/23/2025 09/21/2025 9:4 1 AM SALT MANAGER Narrative Resulting Agency Comment Performing Organization Information: Site ID: MELONIE Name: [facility] Address: [address] [place] [phone] Director: Haja Barker MD us Tomeka Kelly MD LAB BLOOD ORDERABLES Final Re sult Performing Organization Address City/[facility]/ZIP Co de Phone Number [facility] [address] [facility] [place] [address] * (ABNORMAL) Glucose, random (09/23/2025) Glucose 165(H) 65 - 99 mg/dL [facility] Comment: For someone without known diabetes, a glucose value >125 mg/dL indicates that they may have diabetes and this should be confirmed with a follow-up test. 09/23/2025 09/21/2025 9:4 1 AM SALT MANAGER Narrative Resulting Agency Comment Performing Organization Information: Site ID: MELONIE Name: [facility] Address: [address] [place], [place] [address] [place] [address] Director: Haja Barker MD us Tomeka Kelly MD LAB BLOOD ORDERABLES Final Re sult Performing Organization Address [facility] Co de Phone Number [facility] [address] [place], [place] [address] [address] * (ABNORMAL) Albumin (09/23/2025) Albumin 2.7(L) 3.6 - 5.1 g/dL [email or web address] 09/23/2025 09/21/2025 9:4 1 AM SALT MANAGER Narrative Resulting Agency Comment Performing Organization Information: Site ID: [place] Name: [facility] Address: [address] [place], [place] [address] [place] [address] Director: Haja Barker MD us Tomeka Kelly MD LAB BLOOD ORDERABLES Final Re sult Performing Organization Address [facility]/ZIP Co de Phone Number [email or web address] [phone] * (ABNORMAL) Vancomycin, trough (09/23/2025) Pathologist [facility] Vancomycin Tr 5.1(L) 10.0 - 20.0 mg/L [facility] 09/23/2025 09/21/2025 9:4 1 AM SALT MANAGER Narrative Resulting Agency Comment Performing Organization Information: Site ID: [place] Name: [email or web address] Address: [address] [place] [phone] Director: Haja Barker MD Tomeka Kelly MD LAB BLOOD ORDERABLES Final Re sult [facility] [id number] [place] [address] [place] [address] * (ABNORMAL) HEMATOLOGY (09/16/2025) Only the most recent of2 resultswithin the time period is included. Pathologist [facility] Hemoglobin 9.9(L) 14.0 - 18.0 g/dL [facility] Hemoglobin x 3 29.7(L) 42.0 - 54.0 % [facility] 09/16/2025 09/17/2025 9:0 5 AM CDT Narrative [facility] - 09/17/2025 Unless otherwise specified, test(s) performed at: [facility] [address] [place] [address] POWERHOUSE ELECTRICIAN APPRENTICE: Magdi Montes De Oca M.D. For any questions, please call customer service at FREQUENCY:OTHER Resulting Agency Comment Specimen source: Blood Tomeka Kelly MD LAB BLOOD ORDERABLES Final Re sult [facility] See order comments or contact performing lab Unknown, [place] * (ABNORMAL) [facility] (09/16/2025) Only the most recent of2 resultswithin the time period is included. BUN 64(H) 6 - 19 mg/dL [facility] Creatinine 2.42(H) 0.60 - 1.30 mg/dL [facility] Comment: Custom Exception BUN/Creatinine Ratio 26.4(H) 10.0 - 20.0 [facility] Sodium 139 136 - 145 mEq/L [facility] Potassium 4.0 3.5 - 5.1 mEq/L [facility] Chloride 104 96 - 108 mEq/L [facility] Bicarbonate (CO2) 26 22 - 29 mEq/L [facility] Calcium 8.0(L) 8.4 - 10.2 mg/dL [facility] Phosphorus 3.6 2.6 - 4.5 mg/dL [facility] Calcium Phosphorus Product 29 0 - 54 [facility] 09/16/2025 09/17/2025 9:1 8 AM CDT N[facility]ative [facility]25 Unless otherwise specified, test(s) performed at: [facility] [place] [address] POWERHOUSE ELECTRICIAN APPRENTICE: Magdi Montes De Oca M.D. For any questions, please call customer service at FREQUENCY:OTHER Resulting Agency Comment Specimen source: Serum Tomeka Kelly MD LAB BLOOD ORDERABLES Final Re sult Performing Organization Address [facility]/ZIP Co de Phone Number [facility] [employer] See order comments or contact performing lab Unknown, [place] * POST CHEMISTRY (09/03/2025) Pathologist [facility] BUN Post Dialysis 17 6 - 19 mg/dL [facility] 09/03/2025 09/04/2025 10: 29 AM CDT Narrative [facility] - 09/04/2025 Unless otherwise specified, test(s) performed at: [facility] [address] [place] [address] POWERHOUSE ELECTRICIAN APPRENTICE: Magdi Montes De Oca M.D. For any questions, please call customer service at FREQUENCY:OTHER Resulting Agency Comment Specimen source: Plasma Tomeka Kelly MD LAB BLOOD ORDERABLES Final Re sult [facility] See order comments or contact performing lab Unknown, [place] * IMMUNO CHEMISTRY (09/02/2025) Pathologist [facility] Hep B Surface Ag Negative Negative [facility] Hepatitis B Surface Ab <10 mIU/mL [facility] Comment: Reference Range: <10 mIU/mL Non-Immune >=10 mIU/mL Immune The magnitude of the measured result above 10 mIU/mL is not indicative of the total amount of antibody present. Custom Exception Hep B Core Total Ab Negative Negative [facility] Comment: Hep B Core Ab, Total appears during the acute infection stage and remains reactive/positive throughout the recovery stage. The above test result was obtained using Siemens Centaur XP chemiluminescent method. Results obtained with different assay methods or kits cannot be used interchangeably. Hepatitis C Antibody Nonreactive Nonreactive [facility] Comment: No HCV antibody detected. The above test result was obtained using Siemens Centaur XP chemiluminescent method. Results obtained with different assay methods or kits cannot be used interchangeably. S/CO Ratio <0.02 0.00 - 0.79 [facility] Comment: s/co ratio Interpretation Supplemental testing <0.80 Nonreactive No further testing required. 0.80-0.99 Equivocal HCV RNA Quantitative Real-Time PCR is recommended. 1.00->11.00 Reactive HCV RNA Quantitative Real-Time PCR is recommended to distinguish active from resolved cases. 09/02/2025 09/03/2025 11: 39 AM CDT Narrative Resulting Agency Comment Specimen source: Serum Tomeka Kelly MD LAB BLOOD ORDERABLES Final Re sult [facility] See order comments or contact performing lab Unknown, [place] from [id number]
--- OUTSIDE RECORDS SUMMARY | 2025-10-16 09:26 | XMS_ITS | Encounter Summary ---
Author Organization [facility], [facility] Address [address] [facility] [address] [place] [address] Phone Care Team Providers Care Graduate Student Instructor Name Role Phone Unavailable Primary Care Provider Unavailabl e Encounter Details Date Type Department Care Team ([facility] st Contact Info) Description 12/17/2023 Orders Only [facility] [address] [facility] [address] [place] [address] Stage 3 chronic kidney disease, [...]
--- OUTSIDE RECORDS SUMMARY | 2025-10-16 09:26 | XMS_ITS | Encounter Summary ---
Author Organization [facility], [facility] Address [address] [place] [address] Phone Care Team Providers Care Surg Nurse Name Role Phone Unavailable Primary Care Provider Unavailabl e Encounter Details Date Type Department Care Team ([facility] st Contact Info) Description 10/05/2025 Orders Only [facility], [facility] [address] [place] [address] Tomeka Kelly MD [address] [facility] [address] [place] [address] Social History Tobacco Use Types [...] Procedure Name Priority Date/Time Associated Diagnosis Comments BUN Routine 10/05/2025 CREATININE, SERUM Routine 10/05/2025 documented in this encounter Results * BUN (10/05/2025) BUN OTH mg/dL [facility] Comment: TEST NOT PERFORMED. An electronic test request was transmitted, but no specimen was received by the laboratory. Test has been cancelled. 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 An electronic test request was transmitted, but no specimen was received by the laboratory. Test has been cancelled. 10/05/2025 10/02/2025 5:1 0 AM STOCKROOM INVENTORY CLERK Narrative Resulting Agency Comment Performing Organization Information: Site ID: [place] Name: [facility] Address: [address] [place] [address] Director: Haja Barker MD Tomeka Kelly MD LAB BLOOD ORDERABLES Final Re sult Performing Organization Address [facility] Co de Phone Number [facility] [address] [place] [address] documented in this encounter Visit Diagnoses Not on filedocumented in this encounter
--- OUTSIDE RECORDS SUMMARY | 2025-10-16 09:26 | XMS_ITS | Encounter Summary ---
Author Organization [facility], [facility] Address [address] [place] [address] Phone Care Team Providers Care Pocketbook Maker Name Role Phone Unavailable Primary Care Provider Unavailabl e Encounter Details Date Type Department Care Team ([facility] st Contact Info) Description 10/07/2025 Orders Only [facility] [address] [place] [address] Tomeka Kelly MD [address] [facility] [address] [place] [address] Social History Tobacco Use Types Packs/Day Years Used Date Smoking Tobacco: Never Assessed Sex and Gender Information Value Date Recorded Sex Assigned at Not on file Legal Sex Male 11:36 AM EST Gender Identity Not on file Sexual Orientation Not on file documented as of this encounter Plan of Treatment Pending Results Name Type Priority Associated Diagnoses Date /Time Potassium Lab Routine 10/07/2025 Sodium Lab Routine 10/07/2025 Chloride Lab Routine 10/07/2025 CO2 Lab Routine 10/07/2025 Calcium Lab Routine 10/07/2025 Phosphorus Lab Routine 10/07/2025 Ferritin Lab Routine 10/07/2025 documented as of this encounter Procedures Procedure Name Priority Date/Time Associated Diagnosis Comments HEMOGLOBIN Routine 10/07/2025 documented in this encounter Results * Hemoglobin (10/07/2025) Hemoglobin OTH g/dL [facility] Comment: TEST NOT PERFORMED. An electronic test request was transmitted, but no specimen was received by the laboratory. Test has been cancelled. 10/07/2025 10/06/2025 6:0 1 AM ACID BATH MIXER Narrative Resulting Agency Comment Performing Organization Information: Site ID: [id number] Name: [email or web address] Address: [address] [place] [address] Director: Haja Barker MD Tomeka Kelly MD LAB BLOOD ORDERABLES Final Re sult [facility] [address] [place] [address] documented in this encounter Visit Diagnoses Not on filedocumented in this encounter
--- OUTSIDE RECORDS SUMMARY | 2025-10-16 09:26 | XMS_ITS | Encounter Summary ---
Author Organization [facility], [facility] Address [address] [place] [address] Phone Care Team Providers Care Community Facilitator Name Role Phone Unavailable Primary Care Provider Unavailabl e Encounter Details Date Type Department Care Team ([facility] st Contact Info) Description 10/14/2025 Orders Only [facility] [address] [place] [address] Tomeka Kelly MD [address] [facility] [address] [place] [address] Social History Tobacco Use Types [...] Date/Time Associated Diagnosis Comments HEMOGLOBIN Routine 10/14/2025 BUN Routine 10/14/2025 SODIUM Routine 10/14/2025 POTASSIUM Routine 10/14/2025 PHOSPHATE ( PHOSPHORUS) Routine 10/14/2025 CREATININE, SERUM Routine 10/14/2025 CHLORIDE Routine 10/14/2025 CO2, TOTAL Routine 10/14/2025 CALCIUM Routine 10/14/2025 documented in this encounter Results * (ABNORMAL) Hemoglobin (10/14/2025) Hemoglobin 9.0(L) 13.2 - 14.0 g/dL [facility] 10/14/2025 10/13/2025 8:4 4 AM BARLEY STEEPER Narrative Resulting Agency Comment Performing Organization Information: Site ID: [place] Name: [email or web address] Address: [address] [place] [phone] Director: Haja Barker MD Tomeka Kelly MD LAB BLOOD ORDERABLES Final Re sult Performing Organization Address [facility] Co de Phone Number [facility] [address] [place] [phone] * Phosphorus (10/14/2025) Phosphorus 4.3 3.0 - 4.3 mg/dL [facility] 10/14/2025 10/13/2025 8:4 4 AM BARLEY STEEPER Narrative Resulting Agency Comment Performing Organization Information: Site ID: [place] Name: [facility] Address: [address] [place] [phone] Director: Haja Barker MD Tomeka Kelly MD LAB BLOOD ORDERABLES Final Re sult Performing Organization Address [facility]/ZIP Co de Phone Number [facility] [address] [place] [phone] * Calcium (10/14/2025) Calcium 8.6 8.6 - 10.0 mg/dL [facility] 10/14/2025 10/13/2025 8:4 4 AM BARLEY STEEPER Narrative Resulting Agency Comment Performing Organization Information: Site ID: [place] Name: [facility] Address: [address] [place] [phone] Director: Haja Barker MD us Tomeka Kelyl MD LAB BLOOD ORDERABLES Final Re sult Performing Organization Address [facility] Phone Number [facility] [id number] [place] [phone] * CO2 (10/14/2025) Bicarbonate (CO2) 23 20 - 29 mmol/L [facility] 10/14/2025 10/13/2025 8:4 4 AM BARLEY STEEPER Narrative Resulting Agency Comment Performing Organization Information: Site ID: [place] Name: [facility] Address: [address] [place] [phone] Director: Haja Barker MD us Tomeka Kelly MD LAB BLOOD ORDERABLES Final Re sult Performing Organization Address [facility] de Phone Number [facility] [address] [place] [phone] * Chloride (10/14/2025) Chloride 106 98 - 110 mmol/L [facility] 10/14/2025 10/13/2025 8:4 4 AM BARLEY STEEPER Narrative Resulting Agency Comment Performing Organization Information: Site ID: [place] Name: [facility] Address: [address] [place] [phone] Director: Haja Barker MD us Tomeka Kelly MD LAB BLOOD ORDERABLES Final Re sult Performing Organization Address [facility] Co de Phone Number [facility] [address] [place] [phone] * Sodium (10/14/2025) Sodium 140 135 - 146 mmol/L [facility] 10/14/2025 10/13/2025 8:4 4 AM BARLEY STEEPER Narrative Resulting Agency Comment Performing Organization Information: Site ID: [place] Name: [facility] Address: [address] [place] [phone] Director: Haja Barker MD us Tomeka Kelly MD LAB BLOOD ORDERABLES Final Re sult Performing Organization Address City/[facility]/ZIP Co de Phone Number [facility] [address] [place] [address] * (ABNORMAL) BUN (10/14/2025) BUN 44(H) 7 - 25 mg/dL [facility] 10/14/2025 10/13/2025 8:4 4 AM BARLEY STEEPER Narrative Resulting Agency Comment Performing Organization Information: Site ID: [place] Name: [facility] Address: [address] [place] [phone] Director: Haja Barker MD us Tomeka Kelly MD LAB BLOOD ORDERABLES Final Re sult Performing Organization Address [facility] Co de Phone Number [facility] [address] [place] [phone] * (ABNORMAL) Creatinine, serum (10/14/2025) Creatinine 2.76(H) 0.70 - 1.28 mg/dL [facility] 10/14/2025 10/13/2025 8:4 4 AM BARLEY STEEPER Narrative Resulting Agency Comment Performing Organization Information: Site ID: [place] Name: [facility] Address: [address] [place] [phone] Director: Haja Barker MD us Tomeka Kelly MD LAB BLOOD ORDERABLES Final Re sult Performing Organization Address City/[facility]/ZIP Co de Phone Number [facility] [address] [place] [address] * Potassium (10/14/2025) Potassium 4.0 3.5 - 5.3 mmol/L [email or web address] 10/14/2025 10/13/2025 8:4 4 AM BARLEY STEEPER Narrative Resulting Agency Comment Performing Organization Information: Site ID: [place] Name: [email or web address] Address: [address] [place] [address] Director: Haja Barker MD us Tomeka Kelly MD LAB BLOOD ORDERABLES Final Re sult [email or web address] [address] [place] [address] documented in this encounter Visit Diagnoses Not on filedocumented in this encounter
--- OUTSIDE RECORDS SUMMARY | 2025-10-16 09:26 | XMS_ITS | Continuity of Care Document ---
Author Organization MELISA Castillo [facility] Karina Conner, [facility] ([facility]) Address [address] [place] [address] Care Team Providers Care Audiology Director Name Role Phone ANAI VALDIVIA Primary Care [...] Organization Details Last Modified Time Details Appointments OFFICE VISIT 10 2024 09:50A M Anai Valdivia MD Not available Not available Not available Lab None recorded. Referral otolaryng ologist referral 2024 025 [email or web address] Demian Lin MD, [address] , [place], [address], 09/14/2025 16:26:17 Procedures None recorded. Surgeries None recorded. Imaging None recorded. Medication Orders None recorded. Patient TargetsNo targets recorded. Patient Instructions Encounter Date Encounter Id Patient Instructions Last Modified By Organization Details Last Modified Time 09/03/2025 [id number] Call or return for questions or concerns. 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 for Referral Educational Guidance Counselor Referral fo r Dysfunction of right eustachian tube Referring Physician: Barbara Stoddard, Family Medicine, Encounter Date: 09/03/2025 Results Created Date Observation Date Name Description Value Unit Range Abnormal Flag Note LastModifiedBy Organization Detail LastModifiedTime 08/11/2008/11/2025 CBC WBC 10.2 x10 4.5-10 .5 Not Available [facility] [address], [place], [address], 08/11/2025 14:28:00 08/11/2008/11/2025 CBC RBC 3.26 x10 4.30-5 .90 low Not Available [facility] [address] [facility], [place], [address], 08/11/2025 14:28:00 08/11/20 25 08/11/2025 CBC HGB 9.7 g/dL 13.5-1 8.0 low Not Available [facility] [address] [facility], [place], [address], 08/11/2025 14:28:00 08/11/20 25 08/11/2025 CBC HCT 30.8 % 35.0-6 0.0 low Not Available [facility] [address] [facility], [place], [address], 08/11/2025 14:28:00 08/11/20 25 08/11/2025 CBC MCV 94.4 fL 80.0-9 9.9 Not Available [facility] [address] [facility], [place], [address], 08/11/2025 14:28:00 08/11/20 25 08/11/2025 CBC MCH 29.9 pg 27.0-3 2.0 Not Available [facility] [address] [facility], [place], [address], 08/11/2025 14:28:00 08/11/20 25 08/11/2025 CBC MCHC 31.6 g/dL 32.0-3 6.0 low Not Available [facility] [address], [place], [address], 08/11/2025 14:28:00 08/11/20 25 08/11/2025 CBC RDW 16.0 % 11.5-1 4.5 high Not Available [facility] [address] [facility] [facility], [place], [address], 08/11/2025 14:28:00 08/11/20 25 08/11/2025 CBC plt 198.7 x10 150.0- 451.0 Not Available [facility] [address] [facility] [facility], [place], [address], 08/11/2025 14:28:00 08/11/20 25 08/11/2025 CBC lymphocytes % 18.7 % 20.0-5 0.0 low Not Available [facility] [address] [facility], [place], [address], 08/11/2025 14:28:00 08/11/20 25 08/11/2025 CBC granulcytes % 66.6 % 30.0-7 0.0 Not Available [facility] [address] [facility], [place], [address], 08/11/2025 14:28:00 08/11/20 25 08/11/2025 CBC monocytes % 11.8 % 2.0-16 .0 Not Available [facility] [address] [facility], [place], [address], 08/11/2025 14:28:00 08/11/20 25 08/11/2025 CBC granulcytes# 6.8 x10 Not Stephanie [facility]able [facility] [address] [facility], [place], [address], 08/11/2025 14:28:00 08/11/20 25 08/11/2025 CBC lymphocytes # 1.9 x10 Not Available [facility] [address] [facility] [address], [place], [address], 08/11/2025 14:28:00 08/11/20 25 08/11/2025 CBC monocytes # 1.2 x10 Not Avai lable [facility] [address] [facility] [address], [place], [address], 08/11/2025 14:28:00 08/11/20 25 08/11/2025 CMP (MALE ) glucose 132.0 mg/dL 60.0-9 9.0 high Not Available [facility] [address] [facility] [address], [place], [address], 08/11/2025 15:58:28 08/11/20 25 08/11/2025 CMP (MALE ) BUN (blood urea nitrogen) 71.0 mg/dL 10.0-2 6.0 high Not Available [facility] [address] [facility] [address], [place], [address], 08/11/2025 15:58:28 08/11/20 25 08/11/2025 CMP (MALE ) creatinine (serum) 3.8 mg/dL 0.4-1. 5 high Not Available [facility] [address] [facility] [address], [place], [address], 08/11/2025 15:58:28 08/11/20 25 08/11/2025 CMP (MALE ) BUN/creatini ne ratio 18.68 ratio Not Available [facility] [address] [facility] 1, [place], [address], 08/11/2025 15:58:28 08/11/20 25 08/11/2025 CMP (MALE ) eGFR calculated 16.8 Not Available [facility] [address] [facility], [place], [address], 08/11/2025 15:58:28 08/11/20 25 08/11/2025 CMP (MALE ) total protein 7.0 g/dL 6.0-8. 5 Not Available [facility] [address] [facility] 1, [place], [address], 08/11/2025 15:58:28 08/11/20 25 08/11/2025 CMP (MALE ) total bilirubin 0.7 mg/dL 0.2-1. 3 Not Available [facility] [address] [facility] 1, [place], [address], 08/11/2025 15:58:28 08/11/20 25 08/11/2025 CMP (MALE ) albumin 3.5 g/dL 3.5-5. 5 Not Available [facility] [address] [facility] [address], [place], [address], 08/11/2025 15:58:28 08/11/20 25 08/11/2025 CMP (MALE ) globulin 3.5 calc Not Available [facility] [address] [facility] 1, [place], [address], 08/11/2025 15:58:28 08/11/20 25 08/11/2025 CMP (MALE ) AST (SGOT) 37.0 U/L 0.0-46 .0 Not Available [facility] [address] [facility], [place], [address], 08/11/2025 15:58:28 08/11/20 25 08/11/2025 CMP (MALE ) altv (SGPT) 14.0 U/L 13.0-6 9.0 normal Not Available [facility] [address] [facility], [place], [address], 08/11/2025 15:58:28 08/11/20 25 08/11/2025 CMP (MALE ) A/G ratio 1.0 ratio Not Available [facility] [address] [facility], [place], [address], 08/11/2025 15:58:28 08/11/20 25 08/11/2025 CMP (MALE ) ALP phos 208.0 U/L 30.0-1 40.0 abnormal Not Available [facility] [address] [facility], [place], [address], 08/11/2025 15:58:28 08/11/20 25 08/11/2025 CMP (MALE ) calcium 9.3 mg/dL 8.4-10 .5 Not Available [facility] [address] [facility], [place], [address], 08/11/2025 15:58:28 08/11/20 25 08/11/2025 CMP (MALE ) sodium 137.0 mmol/ L 136.0- 145.0 Not Available [facility] [address] [facility], [place], [address], 08/11/2025 15:58:28 08/11/20 25 08/11/2025 CMP (MALE ) potassium 4.4 mmol/ L 3.5-5. 1 Not Available [facility] [address] [facility], [place], [address], 08/11/2025 15:58:28 08/11/20 25 08/11/2025 CMP (MALE ) chloride 106.0 mmol/ L 98.0-1 10.0 normal Not Available [facility] [address] [facility], [place], [address], 08/11/2025 15:58:28 08/11/20 25 08/11/2025 CMP (MALE ) C02 20.0 mmol/ L 22.0-3 1.0 low Not Available [facility] [address] [facility] [address], [place], [address], 08/11/2025 15:58:28 08/11/20 25 08/11/2025 CMP (MALE ) anion gap 11.0 calc Not Available [facility] [address] [facility] [address], [place], [address], 08/11/2025 15:58:28 08/11/20 25 08/11/2025 CMP (MALE ) osmolality 304.3 calc Not Available [facility] [address] [facility] [address], [place], [address], 08/11/2025 15:58:28 08/11/20 25 08/11/2025 hospi alley disch arge follo w up* Records Reviewed Yes Not Available [facility] ( [facility]) [address] [place], [address], 08/11/2025 13:09:32 08/11/20 25 08/11/2025 hospi alley disch arge follo w up* Medications Reconciles Yes Not Available [facility] ([facility]) [address] [place], [address], 08/11/2025 13:09:32 Result Notes None recorded. Problems Name Problem SNOMED Code Status Onset Date Resolution Date Notes Provider Name and Address Organization Details Recorded Time Anticoagu lant effect [id number] Aaron STODDARD, [facility] [place], [address], [facility] 13:04:03 Chronic ulcer of left foot Active BARBARA STODDARD [facility] [address] [place], [address], [facility] 5 13:04:34 Tailor's bunion of left foot [id number] 9100 Aaron STODDARD, [address], [address] [place] [address] 5, [facility] 5 13:04:03 Tobacco user [id number] Aaron STODDARD, [address], [address] [place] [address] 5, [facility] 5 13:04:03 Contusion of left shoulder [id number] 29852 Aaron STODDARD, [address], [address] [place] [address] 5, [facility] 5 13:04:03 History of aortic valve replaceme nt [id number] 0 Active BARBARA STODDARD, [address], [address] [place] [address] 5, [facility] 5 13:04:03 Celluliti s [id number] Aaron STODDARD, [address], [address] [place] [address] 5, [facility] 5 13:04:03 Lumbar radiculop athy [id number] Aaron STODDARD, [address], [address] [place] [address] 5, [facility] 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 5 13:04:03 History of pulmonary embolus [id number] Aaron STODDARD, [address], [address], [facility] 5 14:36:21 Abdominal pain [id number] Aaron STODDARD, [address], [address], [facility] 5 13:04:03 Acute-on- chronic renal failure [id number] Aaron STODDARD, [address], [address], [facility] 5 13:04:03 Thoracic back pain [id number] Aaron STODDARD, [address], [address], [facility] 5 13:04:03 Orthostat ic hypotensi on [id number] Aaron STODDARD, [address], [address], [facility] 5 13:04:03 Chest pain [id number] Aaron STODDARD, [address], [address], [facility] 5 13:04:03 Low back strain [id number] Aaron STODDARD, [address], [address], [facility] 5 13:04:03 Patient encounter status [id number] Aaron STODDARD, [address], [address] [place] [address] 5, [facility] 5 13:04:03 Internati onal normalize d ratio above reference range [id number] Aaron STODDARD, [address], [address], [facility] 5 13:04:03 Dehydrati on [id number] Aaron STODDARD, [address], [address], [facility] 5 13:04:03 Blood in urine [id number] Aaron STODDARD, [address], [address], [facility] 5 13:04:03 Diabetic foot ulcer [id number] Aaron STODDARD, [address], [address], [facility] 5 13:04:03 Pericardi al effusion [id number] Aaron STODDARD, [address], [address], [facility] 5 13:04:03 Acquired keratoder ma [id number] Aaron STODDARD, [address], [address], [facility] 5 13:04:03 Strain of muscle of chest wall [id number] Aaron STODDARD, [address], [address], [facility] 5 13:04:03 History of malignant neoplasm of skin excluding melanoma [id number] Aaron STODDARD, [address], [address], [facility] 5 13:04:03 Acute hyponatre nithin 6352533 Active BARBARA STODDARD, [address], [address], [facility] 5 13:04:03 Foot pain 60065454 Active BARBARA STODDARD, [address], [address], [facility] 5 13:04:03 Acute exacerbat ion of chronic congestiv e heart failure 404870877 Active BARBARA STODDARD, [address], [address], [facility] 5 13:04:03 Prehypert ension [id number] Aaron STODDARD, [address], [address], [facility] 5 13:04:03 Osteomyel itis of forefoot 786106191 Active BARBARA STODDARD, [address], [address], [facility] 5 13:04:03 Acute hypoxemic respirato ry failure [id number] Aaron STODDARD, [address], [address], [facility] 5 13:04:03 Pulmonary hypertens ion 49957494 Active BARBARA STODDARD, [address], [address], [facility] 5 13:04:03 COVID-19 [id number] Aaron STODDARD, [address], [address], [facility] 5 14:36:21 Periphera l arterial disease 379614484 Active BARBARA STODDARD, [address], [address], [facility] 5 13:04:03 Ulcer of left foot due to diabetes mellitus 266616174 Active BARBARA STODDARD, [address], [address] [place] [address] 5, [facility] 5 13:04:03 Abscess of left foot 445202433221 17918 Active BARBARA STODDARD, [place] [address] 5, [facility] 5 13:04:34 Laceratio n of right foot 581948025835 37853 Active BARBARA STODDARD, [address], [address], [facility] 5 13:04:34 Foot ulcer due to type 2 diabetes mellitus 350937928953 0 Active BARBARA STODDARD, [address], [address] [place] [address] 5, [facility] 5 13:04:34 Fall Active BARBARA STODDARD, [address], [address] [place] [address] 5, [facility] 5 13:04:34 Laceratio n of toe 358644063 Active BARBARA STODDARD, [place] [address] 5, [facility] 5 13:04:34 Pain in left foot 745784260772 107 Active BARBARA STODDARD, [place] [address] 5, [facility] 5 13:04:34 Infection of foot due to diabetes mellitus 439259635 Active BARBARA STODDARD, [address], [address] [place] [address] 5, [facility] 5 13:04:34 Low blood pressure 96286600 Active BARBARA STODDARD, [address], [address] [place] [address] 5, [facility] 5 13:04:34 Acute respirato ry failure [id number] Aaron STODDARD, [address], [address] [place] [address] 5, [facility] 5 13:04:34 Long-term current use of anticoagu lant 085801825 Active BARBARA STODDARD, [address], [address] [place] [address] 5, [facility] 5 13:04:34 Gastroint estinal hemorrhag e [id number] Aaron STODDARD, [address], [address] [place] [address] 5, [facility] 5 13:04:34 Edema of left lower limb 262220192 Active BARBARA STODDARD, [address], [address] [place] [address] 5, [facility] 5 13:04:34 Chronic obstructi ve pulmonary disease 91891590 Active 2022 KERRY CRUZ, [address], [address] [place] [address] 5, [facility] 5 14:44:25 Type 2 diabetes mellitus without complicat ion 097300146 Active 2022 Insulin Dependent Diabetes Mellitus [facility], [address], [address], [facility] 14:44:25 Diabetes mellitus 84674689 Active 2022 FELIX LOAXEL [facility], [facility] 5 13:39:55 Dyspnea 493792984 Active 2022 [facility], [address], [address] [place] [address] 5, [facility] 14:44:25 Hyperchol esterolem ia 34937267 Active [address], [address] [place] [address] 5, [facility] 14:44:25 Hypothyro idism 60150410 Active [address], [address] [place] [address] 5, [facility] 14:44:25 Anemia 235912418 Active 2023 BARBARA STODDARD, [address], [address], [facility] 14:36:21 Intermitt ent vomiting 107834333 Active 2023 [place] [address] 5, [facility] 14:44:25 Chronic atrial fibrillat ion 026732592 Active 2024 [place] [address] 5, [facility], [facility]uel 5 14:44:25 Chronic pulmonary thromboem bolism 403762402 Active [address], [address], [facility], [facility]uel 5 14:44:25 Congestiv e heart failure 04010011 Active 2024 BARBARA STODDARD, [address], [address], [facility], [facility] 5 14:36:21 Chronic kidney disease 584617667 Active [address], [address], [facility], [facility] 5 14:44:25 Pain of left shoulder joint 024503987948 05292 Active 2024 THOMAS Lopez [facility] 5 10:41:05 End-stage renal disease 87615877 Active 2024 FELIX garcia [facility] 5 13:40:15 Osteomyel itis of foot Active 2024 FELIX garcia [facility] 13:41:02 Problem Notes None recorded. Procedures Surgical History Date Name Laterality Status Provider Name and Address Organization Details Recorded Time 2024 procedure on foot completed ALBERT NESS [facility], [facility] 5 12:29:01 2024 plain X-ray of chest completed [facility] 13:15:[address] of chest completed [facility] 5 13:18:55 2024 US scan of chest wall completed [facility] 5 13:19:[address] [facility] 5 16:37:30 2024 esophagogastroduodenoscopy completed [facility] 5 16:41:26 2024 plain X-ray of chest completed [facility] 5 10:22:57 2024 plain X-ray of left foot completed [facility], [facility] 5 10:26:[address] of left foot completed [facility] 5 10:29:37 2024 Joint Inj Kenalog- Shoulder, Hip, Knee completed Anai Valdivia MD [address] [place] [address], [address], [facility] 5 13:50:21 2022 repair of aortic valve completed [facility] 3 11:57:41 complete repair of r otator cuff completed [facility] 5 12:00:[address] [facility] 5 12:00:39 Imaging Results None recorded. Procedure Notes None recorded. Medical Equipment None Reported. Allergies Allergen ID Allergen Name Allergen Category Reaction Reaction Severity Criticality Documentation Date Start Date Code Code System Note Provider Name and Address Organization Details Recorded Time 68742 No known allergy (situatio n) Not available Not available Not available Not available 08/11/2025 [id number] SNPEPPER STODDARD, [facility] [address] [place], [address], [facility] 13:03:47 No known drug allergies Medications Name Sig Start Date Stop Date Status Note LastModified by Organization Details LastModified Time atorvasta tin 40 mg tablet 40 mg by oral route. 2024 active Not Available Not Available Not Avai lable Novolin 70/30 U-100 Insulin 100 unit/mL subcutane ous suspensio n inject 55 units SUBCUTAN EOUSLY EVERY MORNING and 45 units in THE evening 10/05 completed Not Available Not Available Not Available prednison e 10 mg tablet TAKE [...] completed Recorded 02/17/20 22 8:03AM by Thomas Peralta ndealexa, Office Visit; Refill Quantity : 0; Not [...] Avai lable sucralfat e 1 gram tablet Take 1 g by oral route. 10/14 completed Not Available Not Available Not Available FreeStyle Lancets 28 gauge 02/08 completed Not Available Not Available Not Available ondansetr on HCl 4 mg tablet Take 1 tablet every 8 hours by oral route. 2024 active Not Available Not Available Not Avai lable prednison e 20 mg tablet TAKE TWO TABLETS BY MOUTH TODAY, THEN TAKE 2 TABLETS DAILY FOR 1 DAY, THEN ONE TABLET DAILY FOR 2 DAYS, THEN 1/2 TABLET DAILY FOR 2 DAYS, THEN STOP 04/24 completed Not Available Not Available Not Available dexametha sone 6 mg tablet 06/09 completed Not Available Not Available Not Available midodrine 5 mg tablet TAKE 1 TABLET BY MOUTH THREE TIMES DAILY active Not Available Not Available No t Available cyanocoba hiwot (vit B-12) 1,000 mcg [...] doxycycli ne monohydra te 100 mg tablet Take 100 mg by oral route. 10/05 completed Not Available Not Available Not Available acetamino phen 500 mg tablet 1000 mg [...] completed Not Available Not Available Not Available benzonata te 100 mg capsule Take 1 capsule 3 times a day by oral route as needed, for cough. 2024 active Not Available Not Available Not Avai lable cephalexi n 500 mg capsule TAKE 1 CAPSULE BY MOUTH EVERY 6 HOURS FOR 7 DAYS 08/11 completed Not Available Not Available Not Available pantopraz ole 40 mg tablet,de layed release Take 1 tablet every day by oral route. 2024 active Not Available [...] TAKE 1 TABLET BY MOUTH ONCE DAILY 10/05 completed Not Available Not Available Not Available levofloxa [...] completed Not Available Not Available Not Available tetracycl ine 500 mg tablet Take 1 tablet 3 times a day by oral route. active Not Available Not Available No t Available levothyro xine 112 mcg tablet Take [...] completed Unknown strength .; 0; Recorded 01/19/20 23 8:10AM by Thomas coleman, Office Visit; Not Available Not Available Not Available dicyclomi ne qid prn abd pain 07/26 completed 0; Recorded 01/19/20 23 8:10AM by Thomas coleman, Office Visit; Not Available Not Available Not Available albuterol sulfate 07/25 completed Qty: 8; 0; Recorded 01/19/20 23 8:10AM by Thomas coleman, Office Visit; Not Available Not Available Not Available metformin BID 12/25 completed Recorded 10/19/20 22 9:49AM by Anai Valdivia MD, Office Visit; Refill Quantity : 200; Tablet; Not Available Not Available Not Available Potassium Chloride ER QD 07/26 completed Reed; 0; Recorded 01/19/20 23 8:10AM by Treba L. Neuschwa nder, Office Visit; Not Available Not Available [...] am and 67 in pm.; Recorded 08/15/20 22 8:05AM by Albert Ness RN, Office Visit; Refill Quantity : 2; Vial; Not Available Not Available Not Available ProAir HFA 90 mcg/actua tion aerosol inhaler every four hours, as needed 2021 active Not Available Not Available Not Avai lable Eliquis 5 mg tablet TAKE 1 TABLET BY MOUTH TWICE DAILY active Not Available Not Available No t Available Eliquis 2.5 mg tablet Take 1 tablet twice a day by oral route. 2024 active Not Available [...] E11.9 Not Available Not Available Not Available Stiolto Respimat 2.5 mcg-2.5 mcg/actua tion solution for inhalatio n INHALE 2 PUFFS BY MOUTH ONCE DAILY active Not Available Not Available No t Available Accu-Chek Guide test strips Take 1 strip 3 times a day by miscell. route for 90 days. 2024 active Not Available Not Available Not Avai lable Accu-Chek Guide Glucose Meter active Not Available Not Available Not Available Dexcom G7 Sensor device 06/01 completed Not Available Not Available Not Available Angie 2nd Gen Pen Needle 32 gauge x 5/32 USE DIRECTED WITH INSULIN active Not Available Not Available No t Available Vitals Date Recorded Body height Body mass index (BMI) Body weight Oxygen saturation Heart rate Respiratory rate Systolic And Diastolic Provider Name and Address Organization Details Last Updated DateTime 162.56 cm 29 kg/m2 64031.1 1 g 93 % 62 /min 24 /min 98/50 mm[Hg] EMERALD PIKE [facility] 14:15:36 Social History Question Answer Notes LastModified by [employer] Details LastModified Time Tobacco Smoking Status Former [facility] 10/25/2023 12:00:37 When Did You Quit Smoking? 1-5yearssin celastcigar ette Stopped 08/03/2025 Information not available 08/11/2025 What Was The Date Of Your Most Recent Tobacco Screening? 08/11/2025 Information not available 08/11/2025 What Is Your Current Pack Years? 30ormorepac renears Information not available 08/11/2025 At What Age Did You Start Smoking Tobacco? 10 Information not available 08/11/2025 How Much Tobacco Do You Smoke? No Information not available 10/25/2023 How Many Years Have You Smoked Tobacco? 50 Information not available 08/11/2025 Sex: Unknown Functional Status Question Answer Note LastModified by [employer] Details LastModified Time Do you use [...] 50 mcg/0.25mL dose 1 completed ALBERT garcia [facility] 05/28/2023 10:19:38 COVID-19, mRNA, LNP-S, PF, 100 mcg/0.5mL dose or 50 mcg/0.25mL dose 1 completed ALBERT garcia [facility] 05/28/2023 10:19:38 Influenza, split virus, trivalent, preservative 3 completed Not Available [facility] 10/05/2025 11:30:10 Influenza, split virus, trivalent, PF 4 completed Not Available [facility] 10/05/2025 11:30:10 Tdap 5 completed BARBARA STODDARD, [address], [address], [facility] 08/11/2025 13:04:45 Td(adult) unspecified formulation 3 completed Not Available [facility] 07/26/2023 09:10:01 Influenza, split virus, trivalent, preservative 3 completed Not Available [facility] 07/26/2023 09:10:01 Influenza, split virus, trivalent, preservative 2 completed Not Available [facility] 07/26/2023 09:10:01 Influenza, split virus, trivalent, preservative 4 completed [facility] Available [facility] 07/26/2023 09:10:01 Past Encounters Encounter ID Performer Location Encounter Start Date Encounter Closed Date Diagnosis/Indication Diagnosis SNOMED-CT Code Diagnosis ICD10 Code Diagnosis IMO Codes Diagnosis Note [id number] ASHISH WALKER [facility] ([facility]) [address] [place] [address] 08/11/2025 12:00:43 08/11/2025 13:58:09 Chronic kidney disease stage [id number] Mcclain Mier is who he follows with for kidneys. Cr 3.6 on discharge. Iron defic iency anemia 46295874 D50.8 73912984 Injury of right foot 771 219622 S91.301A [id number] Will follow with Dr. Higginbotham or Dr. Mendoza. Diabetic foot ulcer 3710 13484 E11.621 L97.428 Follows with wound care. Congestive heart failure 22595948 I50.812 Lots of fluid pulled off during hospital visit. [id number] ASHISH WALKER [facility] ([facility]) [address] [place] [address] 09/03/2025 13:46:21 09/03/2025 15:17:40 Pulmonary embolism 03409550 I26.99 745596 Recent hospitaliz ation. Chronic anemia 432399168 D64.9 018741 Recent hospitaliz ation. Dysfunctio n of right eustachian tube 7700988851 055789 H69.91 [id number] Health Concerns Section Related Observation LastModified by Organization Detai ls LastModified Time None Recorded Concern Status LastModified by Organization Details LastModified Time None Recorded Payers Encounter Date Sequence Insurance Name Policy Number Policy Godinez Covered Member ID Godinez Member ID Guarantor Name 09/03/2025 1 [employer] (MEDICARE REPLACEMENT/ ADVANTAGE - PPO) [id number] Guy Wiseman [id number] Guy Wiseman Notes Date Note Type Note Provider Name and Address Organization Details Recorded Time 09/03/2025 text/html EaracheReported by PatientHPIFor associated symptoms, patient reportshearing loss. For location, patient reportsbilateral. For severity, patient reportscontinuousandm ild. BARBARA STODDARD [facility] [address] [place], [address], [facility], Karina 09/03/2025 15:15:45
--- OUTSIDE RECORDS SUMMARY | 2025-10-16 09:27 | XMS_ITS | Continuity of Care Document ---
Author Organization [facility] Karina Conner, [facility] ([facility]) Address [address] [place] [address] Care Team Providers Care Loans Consultant Name Role Phone ANAI VALDIVIA Primary Care Provider [phone] Assessment No assessment recorded. Plan of Treatment Reminders Order Date Submit Date Provider Last Modified By Organization Details Last Modified Time Details Appointments OFFICE VISIT 10 2024 09:50A M Anai Valdivia MD Not available Not available Not available Lab None recorded . Referral None recorded . Procedures None recorded . Surgeries None recorded . Imaging None recorded . Medication Orders None recorded . Patient TargetsNo targets recorded. Patient InstructionsNo instructions recorded. Reason for Referral None Reported. Problems Name Problem SNOMED Code Status Onset Date Resolution Date Notes Provider Name and Address Organization Details Recorded Time Anticoagu lant effect [id number] Aaron STODDARD, [facility] [place], [address], [facility] 5 13:04:03 Chronic ulcer of left foot Active SHILO STODDARD, [address], [address], [facility] 5 13:04:34 Tailor's bunion of left foot [id number] 9100 Aaron STODDARD, [facility] [address] [place] [address], [address], [facility] 09/23/202 5 13:04:03 Tobacco user 892287650 Active SHILO STODDARD, [address], [address], [facility] 5 13:04:03 Contusion of left shoulder 798911334238 16553 Active SHILO STODDARD, [address], [address] [place] [address] 5, [facility] 5 13:04:03 History of aortic valve replaceme nt 301087768860 0 Active SHILO STODDARD, [place] [address] 5, [facility] 5 13:04:03 Celluliti s [id number] Aaron STODDARD, [place] [address] 5, [facility] 5 13:04:03 Lumbar radiculop athy [id number] Aaron STODDARD, [place] [address] 5, [facility] 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 5 13:04:03 History of pulmonary embolus [id number] Aaron STODDARD, [place] [address] 5, [facility] 5 14:36:21 Abdominal pain [id number] Aaron STODDARD, [place] [address] 5, [facility] 5 13:04:03 Acute-on- chronic renal failure [id number] Aaron STODDARD, [address], [address], [facility] 5 13:04:03 Thoracic back pain [id number] Aaron STODDARD, [address], [address], [facility] 5 13:04:03 Orthostat ic hypotensi on [id number] Aaron STODDARD, [address] 5, [facility] 5 13:04:03 Chest pain [id number] Aaron STODDARD, [address], [address] , [facility] 5 13:04:03 Low back strain [id number] Aaron STODDARD, [address], [address] , [facility] 5 13:04:03 Patient encounter status [id number] Aaron STODDARD, [address], [address] , [facility] 5 13:04:03 Internati onal normalize d ratio above reference range [id number] Aaron STODDARD, [address] , [facility] 5 13:04:03 Dehydrati on [id number] Aaron STODDARD, [place] [address], [facility] 5 13:04:03 Blood in urine [id number] Aaron STODDARD, [address], [address] [place] [address] 5, [facility] 5 13:04:03 Diabetic foot ulcer [id number] Aaron STODDARD, [address], [address] [place] [address], [facility] 5 13:04:03 Pericardi al effusion [id number] Aaron STODDARD, [place] [address], [facility] 5 13:04:03 Acquired keratoder ma [id number] Aaron STODDARD, [address], [address] [place] [address], [facility] 5 13:04:03 Strain of muscle of chest wall [id number] Aaron STODDARD, [place] [address], [facility] 5 13:04:03 History of malignant neoplasm of skin excluding melanoma [id number] Aaron STODDARD, [address], [address] [place] [address], [facility] 5 13:04:03 Acute hyponatre nithin [id number] Aaron STODDARD, [place] [address], [facility] 5 13:04:03 Foot pain [id number] Aaron STODDARD, [place] [address], [facility] 5 13:04:03 Acute exacerbat ion of chronic congestiv e heart failure 862029372 Active SHILO STODDARD, [address], [address], [facility] 5 13:04:03 Prehypert ension [id number] Aaron STODDARD, [address], [address] [place] [address] 5, [facility] 5 13:04:03 Osteomyel itis of forefoot [id number] [facility] SHILO STODDARD, [address], [address], [facility] 5 13:04:03 Acute hypoxemic respirato ry failure [id number] Aaron STODDARD, [address], [address], [facility] 5 13:04:03 Pulmonary hypertens ion [id number] Aaron STODDARD, [address], [address], [facility] 5 13:04:03 COVID-19 [id number] Aaron STODDARD, [address], [address], [facility] 5 14:36:21 Periphera l arterial disease [id number] Aaron STODDARD, [address], [address], [facility] 5 13:04:03 Ulcer of left foot due to diabetes mellitus [id number] Aaron OLIVARESLINNEA [address], [address], [facility] 5 13:04:03 Abscess of left foot 204399465563 01600 Active SHILO STODDARD, [address], [address], [facility] 5 13:04:34 Laceratio n of right foot 161025563428 47509 Active SHILO STODDARD, [address], [address], [facility] 5 13:04:34 Foot ulcer due to type 2 diabetes mellitus 473581177123 0 Active SHILO STODDARD, [address], [address], [facility] 5 13:04:34 Fall Active SHILO STODDARD, [address], [address], [facility] 5 13:04:34 Laceratio n of toe 762499426 Active SHILO STODDARD, [address], [address], [facility] 5 13:04:34 Pain in left foot 019903898732 107 Active SHILO STODDARD, [address], [address], [facility] 5 13:04:34 Infection of foot due to diabetes mellitus 386096481 Active SHILO STODDARD, [address], [address], [facility] 5 13:04:34 Low blood pressure [id number] [facility] SHILO STODDARD, [address], [address] [place] [address] 5, [facility] 5 13:04:34 Acute respirato ry failure [id number] [facility] SHIOL STODDARD, [address], [address] [place] [address] 5, [facility] 5 13:04:34 Long-term current use of anticoagu lant [id number] [facility] SHILO STODDARD, [address], [address] [place] [address] 5, [facility] 5 13:04:34 Gastroint estinal hemorrhag e [id number] [facility] SHILO STODDARD, [address], [address] [place] [address] 5, [facility] 5 13:04:34 Edema of left lower limb [id number] [facility] SHILO STODDARD, [address], [address] [place] [address] 5, [facility] 5 13:04:34 Chronic obstructi ve pulmonary disease 84485481 Active [address], [address] [place] [address] 5, [facility] 5 14:44:25 Type 2 diabetes mellitus without complicat ion 702791997 Active 2022 Insulin Dependent Diabetes Mellitus KERRY CRUZ[address], [address] [place] [address] 5, [facility] 5 14:44:25 Diabetes mellitus 50870206 Active 2022 FELIX WATSON null, [facility] 5 13:39:55 Dyspnea 081144142 Active [address], [address] [place] [address] 5, [facility] 5 14:44:25 Hyperchol esterolem ia 60344139 Active 2022 [place] [address] 5, [facility] 5 14:44:25 Hypothyro idism 12631550 Active 2022 [place] [address] 5, [facility] 14:44:25 Anemia 013729279 Active 2023 SHILO STODDARD, [address], [address] [place] [address] 5, [facility] 5 14:36:21 Intermitt ent vomiting 612216707 Active [address], [address] [place] [address] 5, [facility] 14:44:25 Chronic atrial fibrillat ion 330436212 Active [address], [address] [place] [address] 5, [facility] 5 14:44:25 Chronic pulmonary thromboem bolism 040333069 Active 2024 [place] [address] 5, [facility] 5 14:44:25 Congestiv e heart failure 15035942 Active 2024 SHILO STODDARD, [facility] [address] [place], [address], [facility], Karina 5 14:36:21 Chronic kidney disease 217502935 Active 2024 KERRY CRUZ, [facility] [address] [place], [address], [facility], Karina 5 14:44:25 Pain of left shoulder joint 054214411418 18597 Active 2024 THOMAS Lopez [facility] [place]ina 5 10:41:05 End-stage renal disease 37694896 Active 2024 FELIX garcia [facility] 5 13:40:15 Osteomyel itis of foot Active 2024 FELIX garcia [facility] Karina 13:41:02 Problem Notes None recorded. Procedures Surgical History Date Name Laterality Status Provider Name and Address Organization Details Recorded Time 2024 procedure on foot completed [facility]ESS [facility] 5 12:29:01 2024 plain X-ray of chest completed [facility]IMON PIKE [facility] 5 13:15:[address] of chest completed [facility]AD [facility] 13:18:55 2024 US scan of chest wall completed [facility] 5 13:19:43 2024 colonoscopy completed ALBERT NESS [facility] 5 16:37:30 2024 esophagogastroduodenoscopy completed OFELIA PETERSON [facility] 5 16:41:26 2024 plain X-ray of chest completed [facility] 5 10:22:57 2024 plain X-ray of left foot completed [facility] 5 10:26:[address] of left foot completed [facility] 5 10:29:37 2024 Joint Inj Kenalog- Shoulder, Hip, Knee completed Anai Valdivia MD [address] [place], [address], [facility] 5 13:50:21 2022 repair of aortic valve completed [facility] 3 11:57:41 complete repair of r otator cuff completed [facility] 5 12:00:19 cataract surgery completed [facility] 5 12:00:39 Imaging Results None recorded. Procedure Notes None recorded. Medical Equipment None Reported. Allergies Allergen ID Allergen Name Allergen Category Reaction Reaction Severity Criticality Documentation Date Start Date Code Code System Note Provider Name and Address Organization Details Recorded Time 95402 No known allergy (situatio n) Not available Not available Not available Not available 08/11/2025 [id number] SNASHISH MCDUFFIE [address] [place], [address], [facility] 5 13:03:47 No known drug allergies [...] completed Recorded 03/21/20 10 9:20AM by Albert Ness, RN, Office Visit; Refill Quantity : 0; [...] 2nd Gen Pen Needle 32 gauge x USE DIRECTED WITH INSULIN active Not Available Not Available No t Available Vitals Date Recorded Body height Body mass index (BMI) Body weight Oxygen saturation Heart rate Respiratory rate Body temperature Systolic And Diastolic Provider Name and Address Organization Details Last Updated DateTime 162.56 cm 26.3 kg/m2 35428.6 3 g 97 % 82 /min 20 /min 97.9 [degF] 130/66 mm[Hg] THOMAS YIN [facility] 17:09:55 Social History Question Answer Notes LastModified by [employer] ion Details LastModified Time Tobacco Smoking Status Former Smoker ALBERT JOHN garcia [facility] 10/25/2023 12:00:37 When Did You Quit Smoking? 1-5yearssin celastcipeyton ette Stopped 08/03/2025 Information not available 08/11/2025 What Was The Date Of Your Most Recent Tobacco Screening? 08/11/2025 Information not available 08/11/2025 What Is Your Current Pack Years? 30ormorepac kyears Information not available 08/11/2025 At What Age Did You Start Smoking Tobacco? 10 Information not available 08/11/2025 How Much Tobacco Do You Smoke? No Information not available 10/25/2023 How Many Years Have You Smoked Tobacco? 50 Information not available 08/11/2025 Sex: Unknown Functional Status Question Answer Note LastModified by [employer] Details LastModified Time Do you use any [...] 50 mcg/0.25mL dose 1 completed ALBERT garcia [facility] 05/28/2023 10:19:38 COVID-19, mRNA, LNP-S, PF, 100 mcg/0.5mL dose or 50 mcg/0.25mL dose 1 completed ALBERT garcia [facility] 05/28/2023 10:19:38 Influenza, split virus, trivalent, preservative 3 completed Not Available [facility] 10/05/2025 11:30:10 Influenza, split virus, trivalent, PF 4 completed Not Available [facility] 10/05/2025 11:30:10 Tdap 5 completed ASHISH WALKER [address] [place] [address], [address], [facility] 08/11/2025 13:04:45 Td(adult) unspecified formulation 3 completed Not Available [facility] 07/26/2023 09:10:01 Influenza, split virus, trivalent, preservative 3 completed Not Available [facility] 07/26/2023 09:10:01 Influenza, split virus, trivalent, preservative 2 completed Not Available [facility] 07/26/2023 09:10:01 Influenza, split virus, trivalent, preservative 4 completed Not Available [facility] 07/26/2023 09:10:01 Past Encounters Encounter ID Performer Location Encounter Start Date Encounter Closed Date Diagnosis/Indication Diagnosis SNOMED-CT Code Diagnosis ICD10 Code Diagnosis IMO Codes Diagnosis Note [id number] ASHISH WALKER [facility] ([facility]) [address] [place] [address] 09/03/2025 13:46:21 09/03/2025 15:17:40 Pulmonary embolism 12883089 I26.99 992962 Recent hospitaliz ation. Chronic anemia 332254590 D64.9 766074 Recent hospitaliz ation. Dysfunctio n of right eustachian tube 6399415019 441974 H69.91 [id number] Anai Valdivia MD [facility] ([facility]) [address] [place] [address] 09/15/2025 09:28:58 09/16/2025 09:28:20 Insulin treated type 2 diabetes mellitus 037600936 E11.59 Z79.4 36680340 End stage renal failure on dialysis 021174214 N18.6 Z99.2 169415 Peripheral arterial disease 928674169 I73.9 535706 Anemia 393326519 D64.9 62743607 Lives in [facility] 16 5142998 Z78.9 5055489 Foot ulcer due to type 2 diabetes mellitus 1672611283 100 E11.621 Health Concerns Section Related Observation LastModified by Organization Detai ls LastModified Time None Recorded Concern Status LastModified by Organization Details LastModified Time None Recorded Payers Encounter Date Sequence Insurance Name Policy Number Policy Godinez Covered Member ID Godinez Member ID Guarantor Name 09/15/2025 1 [employer] (MEDICARE REPLACEMENT/ ADVANTAGE - PPO) [id number] Guy Wiseman [id number] Guy Wiseman Notes Date Note Type Note Provider Name and Address Organization Details Recorded Time 09/15/2025 text/html ROS as noted in the HPI HISTORY-Pt is going to wound care for a ulcer on his left footpt sees Wax C[facility] in [facility]. He recently started pt on Jardiancept declined ColonoscopyPt sees [facility], Pt has started dialysis every Sunday, Sunday and Sunday. Pt has been treated for PAD, pulmonary emboli, type 2 diabetes mellitus with left foot ulcer, GI bleed, acute kidney injury superimposed on CKD, end stage renal disease on dialysis, Non ST elevated myocardial infarction Anai Valdivia MD [address] [place] [address], [address], [facility] 09/15/2025 18:09:21
--- OUTSIDE RECORDS SUMMARY | 2025-10-16 09:27 | XMS_ITS | Continuity of Care Document ---
Author Organization MELISA Rios [facility] Karina Conner, [facility] ([facility]) Address [address] [place] [address] Care Team Providers Care Nail Artist Name Role Phone ANAI NICK Primary Care Provider Assessment Encounter Date Assessment Date Assessment LastModified by Organization Details LastModified Time 10/05/2025 10/05/2025 The patient would benefit from home health to eval his condition for multiple reasons. He is a very high risk patient with multiple severe co-morbiditie s including an infected foot wound. [email or web address] Not available 10/07/2025 16:07:18 Plan of Treatment Reminders Order Date Submit Date Provider Last Modified By Organization Details Last Modified Time Details Appointments OFFICE VISIT 10 2024 09:50A M Anai Nick MD Not available Not available Not available Lab None recorded. Referral None recorded. Procedures None recorded. Surgeries None recorded. Imaging None recorded. Medication Orders Eliquis 2.5 mg tablet 2024 025 [facility], [address], [place], [address], 10/05/2025 13:02:19 benzonata te 100 mg capsule 2024 025 [facility], [address], [place], [address], 10/05/2025 12:57:46 Patient TargetsNo targets recorded. Patient InstructionsNo instructions recorded. Reason for Referral None Reported. Problems Name Problem SNOMED Code Status Onset Date Resolution Date Notes Provider Name and Address Organization Details Recorded Time Anticoagu lant effect [id number] Aaron STODDARD, [place] [address], [facility] 5 13:04:03 Chronic ulcer of left foot Aaron STODDARD, [place] [address], [facility] 5 13:04:34 Tailor's bunion of left foot [id number] 9100 Aaron STODDARD, [place] [address], [facility] 5 13:04:03 Tobacco user [id number] Aaron STODDARD, [place] [address], [facility] 5 13:04:03 Contusion of left shoulder [id number] 44044 Aaron STODDARD, [place] [address], [facility] 5 13:04:03 History of aortic valve replaceme nt [id number] 0 Aaron STODDARD, [place] [address], [facility] 5 13:04:03 Celluliti s [id number] Aaron STODDARD, [place] [address], [facility] 5 13:04:03 Lumbar radiculop athy [id number] Aaron STODDARD, [address], [address] [place] [address] 5, [facility] 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 5 13:04:03 History of pulmonary embolus 752991365 Active SHILO STODDARD, [address], [address] [place] [address] 5, [facility] 5 14:36:21 Abdominal pain [id number] Aaron STODDARD, [address], [address] [place] [address] 5, [facility] 5 13:04:03 Acute-on- chronic renal failure [id number] Aaron STODDARD, [address], [address] [place] [address] 5, [facility] 5 13:04:03 Thoracic back pain [id number] Aaron STODDARD, [address], [address] [place] [address] 5, [facility] 5 13:04:03 Orthostat ic hypotensi on [id number] Aaron STODDARD, [address], [address] [place] [address] 5, [facility] 5 13:04:03 Chest pain [id number] Aaron STODDARD, [address], [address] [place] [address] 5, [facility] 5 13:04:03 Low back strain [id number] Aaron STODDARD, [address], [address] [place] [address] 5, [facility], [facility] 5 13:04:03 Patient encounter status [id number] Aaron STODDARD, [address], [address] [place] [address] 5, [facility], [facility]uelL[facility]uelC[facility]uel 5 13:04:03 Internati onal normalize d ratio above reference range [id number] Aaron STODDARD, [address], [address] [place] [address] 5, [facility] 5 13:04:03 Dehydrati on [id number] Aaron STODDARD, [address], [address] [place] [address] 5, [facility], L[facility]uelL[facility]uelC[facility]uel 5 13:04:03 Blood in urine [id number] Aaron STODDARD, [address], [address] [place] [address] 5, [facility] 5 13:04:03 Diabetic foot ulcer [id number] Aaron STODDARD, [address], [address] [place] [address] 5, [facility] 5 13:04:03 Pericardi al effusion [id number] Aaron STODDARD, [address], [address] [place] [address] 5, [facility] 5 13:04:03 Acquired keratoder ma [id number] Aaron STODDARD, [address], [address] [place] [address] 5, [facility] 5 13:04:03 Strain of muscle of chest wall [id number] Aaron STODDARD, [address], [address], [facility] 5 13:04:03 History of malignant neoplasm of skin excluding melanoma [id number] Aaron STODDARD, [address], [address], [facility] 5 13:04:03 Acute hyponatre nithin [id number] Aaron STODDARD, [address], [address], [facility] 5 13:04:03 Foot pain [id number] Aaron STODDARD, [address], [address], [facility] 5 13:04:03 Acute exacerbat ion of chronic congestiv e heart failure [id number] Aaron STODDARD, [address], [address], [facility] 13:04:03 Prehypert ension [id number] Aaron STODDARD, [address], [address], [facility] 5 13:04:03 Osteomyel itis of forefoot [id number] Aaron STODDARD, [address], [address], [facility] 5 13:04:03 Acute hypoxemic respirato ry failure [id number] Aaron STODDARD, [address], [address], [facility] 5 13:04:03 Pulmonary hypertens ion 32137669 Active SHILO STODDARD, [address], [address] [place] [address] 5, [facility] 5 13:04:03 COVID-19 478603543 Active SHILO STODDARD, [address], [address] [place] [address] 5, [facility] 5 14:36:21 Periphera l arterial disease 565944901 Active SHILO STODDARD, [address], [address] [place] [address] 5, [facility] 5 13:04:03 Ulcer of left foot due to diabetes mellitus 281077996 Active SHILO STODDARD, [address], [address] [place] [address] 5, [facility] 5 13:04:03 Abscess of left foot 030601126687 88979 Active SHILO STODDARD, [address], [address] [place] [address] 5, [facility] 5 13:04:34 Laceratio n of right foot 236376338543 03775 Active SHILO STODDARD, [address], [address] [place] [address] 5, [facility] 5 13:04:34 Foot ulcer due to type 2 diabetes mellitus 739536410090 0 Active SHILO STODDARD, [address], [address] [place] [address] 5, [facility] 5 13:04:34 Fall Active SHILO STODDARD, [place] [address], [facility] 5 13:04:34 Laceratio n of toe [id number] Aaron STODDARD, [address], [address] [place] [address] 5, [facility] 5 13:04:34 Pain in left foot 695112676854 107 Aaron STODDARD, [address], [address] [place] [address] 5, [facility] 5 13:04:34 Infection of foot due to diabetes mellitus [id number] Aaron STODDARD, [address], [address] [place] [address] 5, [facility] 5 13:04:34 Low blood pressure [id number] Aaron STODDARD, [address], [address] [place] [address] 5, [facility] 5 13:04:34 Acute respirato ry failure [id number] Aaron STODDARD, [address], [address] [place] [address] 5, [facility] 5 13:04:34 Long-term current use of anticoagu lant [id number] Aaron STODDARD, [address], [address] [place] [address] 5, [facility] 5 13:04:34 Gastroint estinal hemorrhag e [id number] Aaron STODDARD, [address], [address] [place] [address] 5, [facility] 5 13:04:34 Edema of left lower limb [id number] Aaron STODDARD, [address], [address], [facility] 13:04:34 Chronic obstructi ve pulmonary disease 35847270 Active 2022 KERRYLAWRENCE CRUZ, [address], [address], [facility] 14:44:25 Type 2 diabetes mellitus without complicat ion 160315226 Active 2022 Insulin Dependent Diabetes Mellitus [facility], [address], [address], [facility] 14:44:25 Diabetes mellitus 41046293 Active 2022 [facility] 13:39:55 Dyspnea 547045631 Active 2022 KERRYLAWRENCE ASCENCIOELL, [address], [address], [facility] 14:44:25 Hyperchol esterolem ia 91798815 Active [address], [address], [facility] 14:44:25 Hypothyro idism 80789173 Active [address], [address], [facility] 14:44:25 Anemia 291497467 Active 2023 SHILO STODDARD, [address], [address], [facility] 5 14:36:21 Intermitt ent vomiting 229895799 Active [address], [address] [place] [address] 5, [facility] 5 14:44:25 Chronic atrial fibrillat ion 652153745 Active [address], [address] [place] [address] 5, [facility] 5 14:44:25 Chronic pulmonary thromboem bolism 920815411 Active [address], [address] [place] [address] 5, [facility] 5 14:44:25 Congestiv e heart failure 25355801 Active 2024 SHILO STODDARD, [address], [address], [facility] 5 14:36:21 Chronic kidney disease 436327469 Active [address], [address], [facility] 5 14:44:25 Pain of left shoulder joint 952265821955 43805 Active 2024 THOMAS Lopez [facility] 5 10:41:05 End-stage renal disease 71765345 Active 2024 FELIX garcia [facility] 5 13:40:15 Osteomyel itis of foot Active 2024 FELIX garcia [facility] 13:41:02 Problem Notes None recorded. Procedures Surgical History Date Name Laterality Status Provider Name and Address Organization Details Recorded Time 2024 procedure on foot completed [facility], EdmundCAnuel 5 12:29:01 2024 plain X-ray of chest completed [facility], Karina 5 13:15:[address] of chest completed [facility], Karina 13:18:55 2024 US scan of chest wall completed [facility], Karina 13:19:43 2024 colonoscopy completed [facility], Karina 5 16:37:30 2024 esophagogastroduodenoscopy completed [facility], LAnuelLAnuelCAnuel 16:41:26 2024 plain X-ray of chest completed [facility], EdmundCAnuel 5 10:22:57 2024 plain X-ray of left foot completed [facility], EdmundCAnuel 5 10:26:[address] of left foot completed [facility], LAnuelLAnuelCAnuel 5 10:29:37 2024 Joint Inj Ken[place]og- Shoulder, Hip, Knee completed Anai Nick MD [address] [place] [address], [address], [facility], Karina 5 13:50:21 2022 repair of aortic valve completed [facility], Karina 3 11:57:41 complete repair of r otator cuff completed [facility], Karina 5 12:00:19 cataract surgery completed [facility], Karina 5 12:00:39 Imaging Results None recorded. Procedure Notes None recorded. Medical Equipment None Reported. Allergies Allergen ID Allergen Name Allergen Category Reaction Reaction Severity Criticality Documentation Date Start Date Code Code System Note Provider Name and Address Organization Details Recorded Time 84150 No known allergy (situatio n) Not available Not available Not available Not available 08/11/2025 [id number] SNPE[address] STODDARD, [facility] [address] [place], [address] , [facility], Karina 5 13:03:47 No known drug allergies Medications [...] tablet BID prn 10/25 completed Recorded 02/17/20 8:03AM by Thomas coleman, Office Visit; Refill [...] mass index (BMI) Body weight Oxygen saturation Inhaled oxygen flow rate Heart rate Respiratory rate Body temperature Systolic And Diastolic Provider Name and Address Organization Details Last Updated DateTime 162.56 cm 30.2 kg/m2 31872.2 6 g 88 % 3 L/min 84 /min 24 /min 97.7 [degF] 136/58 mm[Hg] ALBERT NESS [facility] 12:31:34 Social History Question Answer Notes LastModified by Organizat ion Details LastModified Time Tobacco Smoking Status Former Smoker ALBERT NESS [facility] 10/25/2023 12:00:37 When Did You [...] 50 mcg/0.25mL dose 1 completed ALBERT garcia [facility] 05/28/2023 10:19:38 COVID-19, mRNA, LNP-S, PF, 100 mcg/0.5mL dose or 50 mcg/0.25mL dose 1 completed ALBERT garcia [facility] 05/28/2023 10:19:38 Influenza, split virus, trivalent, preservative 3 completed Not Available [facility] 10/05/2025 11:30:10 Influenza, split virus, trivalent, PF 4 completed Not Available [facility] 10/05/2025 11:30:10 Tdap 5 completed SHILO STODDARD, [address], [address], [facility], Karina 08/11/2025 13:04:45 Td(adult) unspecified formulation 3 completed Not Available [facility] 07/26/2023 09:10:01 Influenza, split virus, trivalent, preservative 3 completed Not Available [facility] 07/26/2023 09:10:01 Influenza, split virus, trivalent, preservative 2 completed Not Available [facility] 07/26/2023 09:10:01 Influenza, split virus, trivalent, preservative 4 completed Not Available [facility] 07/26/2023 09:10:01 Past Encounters Encounter ID Performer Location Encounter Start Date Encounter Closed Date Diagnosis/Indication Diagnosis SNOMED-CT Code Diagnosis ICD10 Code Diagnosis IMO Codes Diagnosis Note [id number] Anai Nick MD [facility] ([facility]) [address] [place] [address] 09/15/2025 09:28:58 09/16/2025 09:28:20 Insulin treated type 2 diabetes mellitus 015789338 E11.59 Z79.4 16276323 End stage renal failure on dialysis 929788606 N18.6 Z99.2 033902 Peripheral arterial disease 662566760 I73.9 828163 Anemia 218051615 D64.9 36975874 [facility] 16 7546893 Z78.9 7927718 Foot ulcer due to type 2 diabetes mellitus 4291807972 100 E11.741 [id number] Anai Nick MD [facility] ([facility]) [address] [place] [address] 10/05/2025 11:29:54 10/12/2025 08:15:19 Chronic cough 91660632 R05.3 14741 Congestive heart failure 20902140 I50.812 Pulmonary hypertension 42312397 I27.20 Chronic at rial fibrillation 649281311 I48.20 Type 2 claudia betes mellitus without complication 733163323 E11.9 Anticoagulant effect 101 74127 Z79.01 [id number] Health Concerns Section Related Observation LastModified by Organization Detai ls LastModified Time None Recorded Concern Status LastModified by Organization Details LastModified Time None Recorded Payers Encounter Date Sequence Insurance Name Policy Number Policy Godinez Covered Member ID Godinez Member ID Guarantor Name 10/05/2025 1 JULIO (MEDICARE REPLACEMENT/ ADVANTAGE - PPO) [id number] Guy Wiseman [id number] Guy Wiseman Notes Date Note Type Note Provider Name and Address Organization Details Recorded Time 10/05/20 25 text/htm l Atrial FibrillationReported by PatientHPIFor quality, patient reportspressure,squeezing,ach ing, andfluttering. For context, patient reportsexertionalandafter missing medications. For aggravating factors, patient reportsexercise. For pain location, patient reportschest. For severity, patient reportsmoderate. For duration, patient reportshas noted for years. For alleviating factors, patient reportsmedication. Follow up after discharge from Nursing homeHe is scheduled for labs to check kidneys tomorrowPatient went into hospital with chest pain, he was dx with chest mass patient still has PIC linehis blood sugars have been 120's Pt has questions on the following medications, does he need to continue the Clarithromycin and Metronidazole?Should he resume B12, Eliquis and Iron? Anai Nick MD [address] [place] [address], [phone], [facility] 10/07/2025 16:10:57
--- OUTSIDE RECORDS SUMMARY | 2025-10-16 09:27 | XMS_ITS | Continuity of Care Document ---
Author Organization MELISA [facility] Karina Conner, [facility] ([facility]) Address [address] [place] [address] Care Team Providers Care University Librarian Name Role Phone ANAI VALDIVIA Primary Care Provider [phone] Assessment Encounter Date Assessment Date Assessment LastModified [...] Lab CMP, serum or plasma 2024 025 [facility] [address], [facility] 1, [place], [address], 08/11/2025 15:58:28 CBC 2024 025 [facility], [address], [facility] 1, [place], [address], 08/11/2025 14:28:00 Referral None recorded . Procedures None recorded . Surgeries None recorded . Imaging None recorded . Medication Orders None recorded . Patient TargetsNo targets recorded. Patient Instructions Encounter Date Encounter Id Patient Instructions Last Modified By Organization Details Last Modified Time 08/11/2025 [id number] hospital discharge follow up* Not available 08/11/2025 13:20:06 Call or return for questions or concerns. Not available 08/11/2025 13:16:55 Reason for Referral None Reported. Results Created Date Observation Date Name Description Value Unit Range Abnormal Flag Note LastModifiedBy Organization Detail LastModifiedTime 07/15/2007/15/2025 BMP (MALE ) glucose 176.0 mg/dL 60.0-9 9.0 high Not Available [facility] [address] [facility] 1, [place], [address], 07/15/2025 11:49:21 07/15/20 25 07/15/2025 BMP (MALE ) BUN (blood urea nitrogen) 57.0 mg/dL 10.0-2 6.0 high Not Available [facility] [address] [address], [place], [address], 07/15/2025 11:49:21 07/15/20 25 07/15/2025 BMP (MALE ) creatinine (serum) 3.1 mg/dL 0.4-1. 5 high Not Available [facility] [address] [facility] 1, [place], [address], 07/15/2025 11:49:21 07/15/20 25 07/15/2025 BMP (MALE ) BUN/creatini ne ratio 18.39 ratio Not Available [facility] [address] [facility] 1, [place], [address], 07/15/2025 11:49:21 07/15/20 25 07/15/2025 BMP (MALE ) calcium 9.0 mg/dL 8.4-10 .5 Not Available [facility] [address] [facility] 1, [place], [address], 07/15/2025 11:49:21 07/15/20 25 07/15/2025 BMP (MALE ) sodium 141.0 mmol/ L 136.0- 145.0 Not Available [facility] [address] [facility] 1, [place], [address], 07/15/2025 11:49:21 07/15/20 25 07/15/2025 BMP (MALE ) potassium 4.7 mmol/ L 3.5-5. 1 Not Available [facility] [address] [facility] 1, [place], [address], 07/15/2025 11:49:21 07/15/20 25 07/15/2025 BMP (MALE ) chloride 112.0 mmol/ L 98.0-1 10.0 abnormal Not Available [facility] [address] [facility] 1, [place], [address], 07/15/2025 11:49:21 07/15/20 25 07/15/2025 BMP (MALE ) C02 19.0 mmol/ L 22.0-3 1.0 low Not Available [facility] [address] [facility] 1, [place], [address], 07/15/2025 11:49:21 07/31/20 25 07/31/2025 CBC WBC 7.7 x10 4.5-10 .5 Not Available [facility] [address] [facility] 1, [place], [address], 07/31/2025 10:43:25 07/31/2007/31/2025 CBC RBC 2.53 x10 4.30-5 .90 low Not Available [facility] [address] [facility] 1, [place], [address], 07/31/2025 10:43:25 07/31/20 25 07/31/2025 CBC HGB 7.5 g/dL 13.5-1 8.0 low Not Available [facility] [address] [facility] 1, [place], [address], 07/31/2025 10:43:25 07/31/2007/31/2025 CBC HCT 24.2 % 35.0-6 0.0 low Not Available [facility] [address], [place], [address], 07/31/2025 10:43:25 07/31/2007/31/2025 CBC MCV 95.5 fL 80.0-9 9.9 Not Available [facility] [address], [place], [address], 07/31/2025 10:43:25 07/31/2007/31/2025 CBC MCH 29.4 pg 27.0-3 2.0 Not Available [facility] [address] [facility] 1, [place], [address], 07/31/2025 10:43:25 07/31/2007/31/2025 CBC MCHC 30.8 g/dL 32.0-3 6.0 low Not Available [facility] [address] [facility] 1, [place], [address], 07/31/2025 10:43:25 07/31/2007/31/2025 CBC RDW 15.0 % 11.5-1 4.5 high Not Available [facility] [address] [facility] 1, [place], [address], 07/31/2025 10:43:25 07/31/2007/31/2025 CBC plt 162.3 x10 150.0- 451.0 Not Available [facility] [address] [facility] 1, [place], [address], 07/31/2025 10:43:25 07/31/2007/31/2025 CBC lymphocytes % 22.8 % 20.0-5 0.0 Not Available [facility] [address] [facility] 1, [place], [address], 07/31/2025 10:43:25 07/31/2007/31/2025 CBC granulcytes % 64.1 % 30.0-7 0.0 Not Available [facility] [address] [facility] 1, [place], [address], 07/31/2025 10:43:25 07/31/2007/31/2025 CBC monocytes % 9.2 % 2.0-16 .0 Not Available [facility] [address] [facility] 1, [place], [address], 07/31/2025 10:43:25 07/31/2007/31/2025 CBC granulcytes# 4.9 x10 Not Stephanie ilable [facility] [address] [facility] 1, [place], [address], 07/31/2025 10:43:25 07/31/2007/31/2025 CBC lymphocytes # 1.8 x10 Not Available [facility] [address] [facility] 1, [place], [address], 07/31/2025 10:43:25 07/31/2007/31/2025 CBC monocytes # 0.7 x10 Not Avai lable [facility] [address] [facility] [facility], [place], [address], 07/31/2025 10:43:25 07/31/2007/31/2025 BMP (MALE ) glucose 165.0 mg/dL 60.0-9 9.0 high Not Available [facility] [address] [facility] 1, [place], [address], 07/31/2025 11:19:52 07/31/2007/31/2025 BMP (MALE ) BUN (blood urea nitrogen) 71.0 mg/dL 10.0-2 6.0 high Not Available [facility] [address] [facility], [place], [address], 07/31/2025 11:19:52 07/31/20 25 07/31/2025 BMP (MALE ) creatinine (serum) 3.5 mg/dL 0.4-1. 5 high Not Available [facility] [address] [facility], [place], [address], 07/31/2025 11:19:52 07/31/20 25 07/31/2025 BMP (MALE ) BUN/creatini ne ratio 20.29 ratio Not Available [facility] [address] [facility], [place], [address], 07/31/2025 11:19:52 07/31/20 25 07/31/2025 BMP (MALE ) calcium 8.8 mg/dL 8.4-10 .5 Not Available [facility] [address] [facility], [place], [address], 07/31/2025 11:19:52 07/31/20 25 07/31/2025 BMP (MALE ) sodium 141.0 mmol/ L 136.0- 145.0 Not Available [facility] [address] [facility] [address] [address], [place], [address], 07/31/2025 11:19:52 07/31/2007/31/2025 BMP (MALE ) potassium 4.6 mmol/ L 3.5-5. 1 Not Available [facility] [address] [facility] [address] [address], [place], [address], 07/31/2025 11:19:52 07/31/20 25 07/31/2025 BMP (MALE ) chloride 112.0 mmol/ L 98.0-1 10.0 abnormal Not Available [facility] [address] [facility] [address] [address], [place], [address], 07/31/2025 11:19:52 07/31/2007/31/2025 BMP (MALE ) C02 17.0 mmol/ L 22.0-3 1.0 low Not Available [facility] [address], [place], [address], 07/31/2025 11:19:52 08/11/2008/11/2025 CBC WBC 10.2 x10 4.5-10 .5 Not Available [facility] [address] [facility] 1, [place], [address], 08/11/2025 14:28:00 08/11/20 25 08/11/2025 CBC RBC 3.26 x10 4.30-5 .90 low Not Available [facility] [address] [facility] [facility] 1, [place], [address], 08/11/2025 14:28:00 08/11/20 25 08/11/2025 CBC HGB 9.7 g/dL 13.5-1 8.0 low Not Available [facility] [address] [facility] 1, [place], [address], 08/11/2025 14:28:00 08/11/20 25 08/11/2025 CBC HCT 30.8 % 35.0-6 0.0 low Not Available [facility] [address] [facility] 1, [place], [address], 08/11/2025 14:28:00 08/11/20 25 08/11/2025 CBC MCV 94.4 fL 80.0-9 9.9 Not Available [facility] [address] [facility] 1, [place], [address], 08/11/2025 14:28:00 08/11/20 25 08/11/2025 CBC MCH 29.9 pg 27.0-3 2.0 Not Available [facility] [address] [facility] 1, [place], [address], 08/11/2025 14:28:00 08/11/2008/11/2025 CBC MCHC 31.6 g/dL 32.0-3 6.0 low Not Available [facility] [address] [facility] 1, [place], [address], 08/11/2025 14:28:00 08/11/2008/11/2025 CBC RDW 16.0 % 11.5-1 4.5 high Not Available [facility] [address] [facility] [facility] 1, [place], [address], 08/11/2025 14:28:00 08/11/2008/11/2025 CBC plt 198.7 x10 150.0- 451.0 Not Available [facility] [address] [facility] 1, [place], [address], 08/11/2025 14:28:00 08/11/2008/11/2025 CBC lymphocytes % 18.7 % 20.0-5 0.0 low Not Available [facility] [address] [facility] 1, [place], [address], 08/11/2025 14:28:00 08/11/2008/11/2025 CBC granulcytes % 66.6 % 30.0-7 0.0 Not Available [facility] [address] [facility] [facility] 1, [place], [address], 08/11/2025 14:28:00 08/11/2008/11/2025 CBC monocytes % 11.8 % 2.0-16 .0 Not Available [facility] [address] [facility] 1, [place], [address], 08/11/2025 14:28:00 08/11/20 25 08/11/2025 CBC granulcytes# 6.8 x10 Not Stephanie ilable [facility] [address] [facility] 1, [place], [address], 08/11/2025 14:28:00 08/11/20 25 08/11/2025 CBC lymphocytes # 1.9 x10 Not Available [facility] [address] [facility] 1, [place], [address], 08/11/2025 14:28:00 08/11/20 25 08/11/2025 CBC monocytes # 1.2 x10 Not Avai lable [facility] [address] [address], [place], [address], 08/11/2025 14:28:00 08/11/20 25 08/11/2025 CMP (MALE ) glucose 132.0 mg/dL 60.0-9 9.0 high Not Available [facility] [address] [facility] 1, [place], [address], 08/11/2025 15:58:28 08/11/20 25 08/11/2025 CMP (MALE ) BUN (blood urea nitrogen) 71.0 mg/dL 10.0-2 6.0 high Not Available [facility] [address] [address], [place], [address], 08/11/2025 15:58:28 08/11/20 25 08/11/2025 CMP (MALE ) creatinine (serum) 3.8 mg/dL 0.4-1. 5 high Not Available [facility] [address] [address], [place], [address], 08/11/2025 15:58:28 08/11/20 25 08/11/2025 CMP (MALE ) BUN/creatini ne ratio 18.68 ratio Not Available [facility] [address] [address], [place], [address], 08/11/2025 15:58:28 08/11/20 25 08/11/2025 CMP (MALE ) eGFR calculated 16.8 Not Available [facility] [address] [facility] 1, [place], [address], 08/11/2025 15:58:28 08/11/20 25 08/11/2025 CMP (MALE ) total protein 7.0 g/dL 6.0-8. 5 Not Available [facility] [address] [facility] [facility] 1, [place], [address], 08/11/2025 15:58:28 08/11/20 25 08/11/2025 CMP (MALE ) total bilirubin 0.7 mg/dL 0.2-1. 3 Not Available [facility] [address] [facility], [place], [address], 08/11/2025 15:58:28 08/11/20 25 08/11/2025 CMP (MALE ) albumin 3.5 g/dL 3.5-5. 5 Not Available [facility] [address] [facility] 1, [place], [address], 08/11/2025 15:58:28 08/11/20 25 08/11/2025 CMP (MALE ) globulin 3.5 calc Not Available [facility] [address] [facility] Aleksandra [facility] 1, [place], [address], 08/11/2025 15:58:28 08/11/20 25 08/11/2025 CMP (MALE ) AST (SGOT) 37.0 U/L 0.0-46 .0 Not Available [facility] [address] [facility] 1, [place], [address], 08/11/2025 15:58:28 08/11/20 25 08/11/2025 CMP (MALE ) altv (SGPT) 14.0 U/L 13.0-6 9.0 normal Not Available [facility] [address] [facility] 1, [place], [address], 08/11/2025 15:58:28 08/11/20 25 08/11/2025 CMP (MALE ) A/G ratio 1.0 ratio Not Available [facility] [address] [place] [facility], [place], [address], 08/11/2025 15:58:28 08/11/20 25 08/11/2025 CMP (MALE ) ALP phos 208.0 U/L 30.0-1 40.0 abnormal Not Available [facility] [address] [facility], [place], [address], 08/11/2025 15:58:28 08/11/20 25 08/11/2025 CMP (MALE ) calcium 9.3 mg/dL 8.4-10 .5 Not Available [facility] [address] [facility], [place], [address], 08/11/2025 15:58:28 08/11/20 25 08/11/2025 CMP (MALE ) sodium 137.0 mmol/ L 136.0- 145.0 Not Available [facility] [address] [facility], [place], [address], 08/11/2025 15:58:28 08/11/20 25 08/11/2025 CMP (MALE ) potassium 4.4 mmol/ L 3.5-5. 1 Not Available [facility] [address] [facility], [place], [address], 08/11/2025 15:58:28 08/11/20 25 08/11/2025 CMP (MALE ) chloride 106.0 mmol/ L 98.0-1 10.0 normal Not Available [facility] [address] [facility], [place], [address], 08/11/2025 15:58:28 08/11/20 25 08/11/2025 CMP (MALE ) C02 20.0 mmol/ L 22.0-3 1.0 low Not Available [facility] [address] [facility] [address], [place], [address], 08/11/2025 15:58:28 08/11/20 25 08/11/2025 CMP (MALE ) anion gap 11.0 calc Not Available [facility] [address] [facility] [address], [place], [address], 08/11/2025 15:58:28 08/11/20 25 08/11/2025 CMP (MALE ) osmolality 304.3 calc Not Available [facility] [facility], [place], [address], 08/11/2025 15:58:28 08/11/20 25 08/11/2025 hospi alley disch arge follo w up* Records Reviewed Yes Not Available [facility] ( [facility]) [address] [place] [address], [address], 08/11/2025 13:09:32 08/11/20 25 08/11/2025 hospi alley disch arge follo w up* Medications Reconciles Yes Not Available [facility] ([facility]) [address] [place] [address], [address], 08/11/2025 13:09:32 Result Notes None recorded. Problems Name Problem SNOMED Code Status Onset Date Resolution Date Notes Provider Name and Address Organization Details Recorded Time Anticoagu lant effect [id number] Aaron STODDARD, [address], [address], [facility] [place] [facility], Karina 13:04:03 Chronic ulcer of left foot Active SHILOAris STODDARD, [facility] [address] [place] [address], [address], [facility] 5 13:04:34 Tailor's bunion of left foot 512701632449 9100 Active SHILO STODDARD, [address], [address], [facility] 5 13:04:03 Tobacco user 051884739 Active SHILO STODDARD, [address], [address], [facility] 5 13:04:03 Contusion of left shoulder 511236528182 92120 Active SHILO STODDARD, [address], [address], [facility] 5 13:04:03 History of aortic valve replaceme nt 600350671732 0 Active SHILO STODDARD, [address], [address], [facility] 5 13:04:03 Celluliti s 719009225 Active SHILO STODDARD, [address], [address], [facility] 5 13:04:03 Lumbar radiculop athy 432760869 Active SHILO STODDARD, [address], [address], [facility] 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 5 13:04:03 History of pulmonary embolus 401444611 Active SHILO STODDARD, [address], [address], [facility] 5 14:36:21 Abdominal pain [id number] Aaron STODDARD, [address], [address], [facility] 5 13:04:03 Acute-on- chronic renal failure [id number] Aaron STODDARD, [address], [address], [facility] 5 13:04:03 Thoracic back pain [id number] Aaron STODDARD, [address], [address], [facility] 5 13:04:03 Orthostat ic hypotensi on [id number] Aaron STODDARD, [address], [address], [facility] 13:04:03 Chest pain [id number] Aaron STODDARD, [address], [address], [facility] 5 13:04:03 Low back strain [id number] Aaron STODDARD, [address], [address], [facility] 5 13:04:03 Patient encounter status [id number] Aaron STODDARD, [address], [address], [facility] 5 13:04:03 Internati onal normalize d ratio above reference range [id number] Aaron STODDARD, [address], [address], [facility], LMaryCAnuel 13:04:03 Dehydrati on [id number] Aaron STODDARD, [address], [address] [place] [address] 5, [facility], L.LAnuelCAnuel 13:04:03 Blood in urine [id number] Aaron STODDARD, [address], [address] [place] [address] 5, [facility], EdmundCAnuel 13:04:03 Diabetic foot ulcer [id number] Aaron STODDARD, [address], [address] [place] [address] 5, [facility], L.LAnuelCAnuel 13:04:03 Pericardi al effusion [id number] Aaron STODDARD, [address], [address] , [facility], LMaryCAnuel 13:04:03 Acquired keratoder ma [id number] Aaron STODDARD, [address], [address], [facility] 13:04:03 Strain of muscle of chest wall [id number] Aaron STODDARD, [address], [address] [place] [address] 5, [facility], L.L[facility]uelC. 13:04:03 History of malignant neoplasm of skin excluding melanoma [id number] Aaron STODDARD, [address], [address] [place] [address], [facility], L.L[facility]uel[facility]. 5 13:04:03 Acute hyponatre nithin 8681053 Active SHILO STODDARD, [address], [address], [facility] 5 13:04:03 Foot pain 15176100 Active SHILO STODDARD, [address], [address] [place] [address] 5, [facility] 5 13:04:03 Acute exacerbat ion of chronic congestiv e heart failure [id number] Aaron STODDARD, [address], [address] [place] [address] 5, [facility] 5 13:04:03 Prehypert ension [id number] Aaron STODDARD, [address], [address], [facility] 5 13:04:03 Osteomyel itis of forefoot [id number] Aaron STODDARD, [address], [address], [facility] 5 13:04:03 Acute hypoxemic respirato ry failure [id number] Aaron STODDARD, [address], [address], [facility] 5 13:04:03 Pulmonary hypertens ion [id number] Aaron STODDARD, [address], [address], [facility] 5 13:04:03 COVID-19 [id number] Aaron STODDARD, [address], [address] [place] [address] 5, [facility] 5 14:36:21 Periphera l arterial disease 585532107 Active SHILO STODDARD, [address], [address] [place] [address] 5, [facility] 5 13:04:03 Ulcer of left foot due to diabetes mellitus 524533262 Active SHILO STODDARD, [address], [address] [place] [address] 5, [facility] 5 13:04:03 Abscess of left foot 095323500826 60672 Active SHILO STODDARD, [address], [address] [place] [address] 5, [facility] 5 13:04:34 Laceratio n of right foot [id number] 98609 Aaron STODDARD, [address], [address] [place] [address] 5, [facility] 5 13:04:34 Foot ulcer due to type 2 diabetes mellitus 511061579577 0 Active SHILO STODDARD, [address], [address] [place] [address] 5, [facility] 5 13:04:34 Fall Active SHILO STODDARD, [address], [address] [place] [address] 5, [facility] 5 13:04:34 Laceratio n of toe 481370840 Active SHILO STODDARD, [address], [address] [place] [address] 5, [facility] 5 13:04:34 Pain in left foot 542117286767 107 Active SHILO STODDARD, [address], [address], [facility] 5 13:04:34 Infection of foot due to diabetes mellitus [id number] Aaron STODDARD, [address], [address], [facility] 5 13:04:34 Low blood pressure 56615785 Active SHILO STODDARD, [address], [address], [facility] 5 13:04:34 Acute respirato ry failure [id number] Aaron STODDARD, [address], [address], [facility] 5 13:04:34 Long-term current use of anticoagu lant [id number] Aaron STODDARD, [address], [address], [facility] 5 13:04:34 Gastroint estinal hemorrhag e [id number] Aaron STODDARD, [address], [address], [facility] 5 13:04:34 Edema of left lower limb 090073688 Active SHILO STODDARD, [address], [address], [facility] 5 13:04:34 Chronic obstructi ve pulmonary disease 05757689 Active 2022 KERRY CRUZ, [address], [address], [facility] 14:44:25 Type 2 diabetes mellitus without complicat ion 343712210 Active 2022 Insulin Dependent Diabetes Mellitus [place] [address], [facility] 5 14:44:25 Diabetes mellitus 83061559 Active 2022 FELIX AUTUMNJEMAL [facility] 5 13:39:55 Dyspnea 683036521 Active [address] [address], [facility] 14:44:25 Hyperchol esterolem ia 82691168 Active [address] [address], [facility] 14:44:25 Hypothyro idism 22816065 Active [address] [address], [facility] 14:44:25 Anemia 951851127 Active 2023 SHILO STODDARD, [place] [address], [facility] 5 14:36:21 Intermitt ent vomiting 989480055 Active [address] [address], [facility] 14:44:25 Chronic atrial fibrillat ion 631266548 Active [address] [place], [address], [facility], L.L.CAnuel 14:44:25 Chronic pulmonary thromboem bolism 135416282 Active 2024 KERRYLAWRENCE CRUZ, [address], [phone], [facility], LAnuelL.CAnuel 14:44:25 Congestiv e heart failure 53101967 Active 2024 SHILO STODDARD, [address], [phone], [facility], L.L.CAnuel 14:36:21 Chronic kidney disease 468056594 Active 2024 KERRYLAWRENCE ASCENCIOELL, [address], [address], [facility], L.L.CAnuel 14:44:25 Pain of left shoulder joint [id number] 29814 Active 2024 THOMAS Lopez [facility], [facility]uel 10:41:05 End-stage renal disease 19319953 Active 2024 FELIX garcia [facility]uel 13:40:15 Osteomyel itis of foot Active 2024 FELIX WAREAXEL garcia [facility], L.L.CAnuel 13:41:02 Problem Notes None recorded. Procedures Surgical History Date Name Laterality Status Provider Name and Address Organization Details Recorded Time 2024 procedure on foot completed ALBERT NESS [facility], L.L.C[facility]uel 5 12:29:01 2024 plain X-ray of chest completed EMERALD PIKE [facility], [facility]uel[facility] 5 13:15:[address] of chest completed [facility] 5 13:18:55 2024 US scan of chest wall completed [facility] 5 13:19:43 2024 colonoscopy completed [facility] 5 16:37:30 2024 esophagogastroduodenoscopy completed [facility] 5 16:41:26 2024 plain X-ray of chest completed [facility] 5 10:22:57 2024 plain X-ray of left foot completed [facility] 5 10:26:[address] of left foot completed [facility] 5 10:29:37 2024 Joint Inj [place]- Shoulder, Hip, Knee completed Anai Valdivia MD [address] [place] [address], [phone], [facility] 5 13:50:21 2022 repair of aortic valve completed [facility] 3 11:57:41 complete repair of r otator cuff completed [facility] 5 12:00:19 cataract surgery completed [facility] 5 12:00:39 Imaging Results None recorded. Procedure Notes None recorded. Medical Equipment None Reported. Allergies Allergen ID Allergen Name Allergen Category Reaction Reaction Severity Criticality Documentation Date Start Date Code Code System Note Provider Name and Address Organization Details Recorded Time 10756 No known allergy (situatio n) Not available Not available Not available Not available 08/11/2025 [id number] MALA STODDARD, CANDY DIPPER [address] [place], [address], [facility] 13:03:47 No known drug allergies Medications Name [...] Reed; 0; Recorded 01/19/20 23 8:10AM by Thomas [...] Last Updated DateTime 162.56 cm 28.8 kg/m2 44760.5 2 g 90 % 90 /min 22 /min 132/80 mm[Hg] EMERALD PIKE [facility] 12:38:39 Social History Question Answer Notes LastModified by [employer] Details LastModified Time Tobacco Smoking Status Former Smoker ALBERT garcia, [facility] 10/25/2023 12:00:37 When Did You [...] Functional Status Question Answer Note LastModified by [employer] Details LastModified Time Do you use [...] or 50 mcg/0.25mL dose 1 completed ALBERT garcia, [facility] 05/28/2023 10:19:38 COVID-19, mRNA, LNP-S, PF, 100 mcg/0.5mL dose or 50 mcg/0.25mL dose 1 completed ALBERT garcia [facility] 05/28/2023 10:19:38 Influenza, split virus, trivalent, preservative 3 completed Not Available [facility] 10/05/2025 11:30:10 Influenza, split virus, trivalent, PF 4 completed Not Available [facility] 10/05/2025 11:30:10 Tdap 5 completed SHILO STODDARD, [address], [phone], [facility] 08/11/2025 13:04:45 Td(adult) unspecified formulation 3 completed Not Available [facility] 07/26/2023 09:10:01 Influenza, split virus, trivalent, preservative 3 completed Not Available [facility] 07/26/2023 09:10:01 Influenza, split virus, trivalent, preservative 2 completed Not Available [facility] 07/26/2023 09:10:01 Influenza, split virus, trivalent, preservative 4 completed Not Available [facility] 07/26/2023 09:10:01 Past Encounters Encounter ID Performer Location Encounter Start Date Encounter Closed Date Diagnosis/Indication Diagnosis SNOMED-CT Code Diagnosis ICD10 Code Diagnosis IMO Codes Diagnosis Note [id number] Anai Valdivia MD [facility]) [address] [place] [phone] 07/15/2025 09:46:43 07/16/2025 15:47:39 Acute kidney injury 42126574 N17.9 [id number] Anai Valdivia MD [facility]) [address] [place] [phone] 07/31/2025 09:23:28 08/03/2025 10:19:47 Anemia 922364036 D64.9 Acute kidney injury 1466 9001 N17.9 [id number] ASHISH WALKER [facility]) [address] [place] [phone] 08/11/2025 12:00:43 08/11/2025 13:58:09 Chronic kidney disease stage [id number] Mcclain [place] is who he follows with for kidneys. Cr 3.6 on discharge. Iron defic iency anemia 77305425 D50.8 16755679 Injury of right foot 771 859895 S91.301A [id number] Will follow with Dr. Higginbotham or Dr. Mendoza. Diabetic foot ulcer 3710 94849 E11.621 L97.428 Follows with wound care. Congestive heart failure 99657441 I50.812 Lots of fluid pulled off during hospital visit. Health Concerns Section Related Observation LastModified by Organization Detai ls LastModified Time None Recorded Concern Status LastModified by Organization Details LastModified Time None Recorded Payers Encounter Date Sequence Insurance Name Policy Number Policy Godinez Covered Member ID Godinez Member ID Guarantor Name 08/11/2025 1 [employer] (MEDICARE REPLACEMENT/ ADVANTAGE - PPO) [id number] Guy Wiseman [id number] Guy Wiseman
--- OUTSIDE RECORDS SUMMARY | 2025-10-16 09:27 | XMS_ITS | Data Portability ---
Author Organization [facility] Karina Conner, [facility] Address [address] [address] Care Team Providers Care [employer] Name Role Phone ANAI VALDIVIA Primary Care [...] in his foot. Not available 08/11/2025 13:20:05 09/03/2025 09/03/2025 Patient was recently in the [...] his right ear. Not available 09/03/2025 15:14:02 10/05/2025 10/05/2025 The patient would benefit from home health to eval his condition for multiple reasons. He is a very high risk patient with multiple severe co-morbidities including an infected foot wound. [email or web address] Not available 10/07/2025 16:07:18 Plan of Treatment Reminders Order Date Submit Date Provider Last Modified By Organization Details Last Modified Time Details Appointments OFFICE VISIT 10 2024 09:50A M Anai Valdivia MD Not available Not available Not available Lab CMP, serum or plasma 2024 025 [facility], [address], [place], [address], 08/11/2025 15:58:28 CBC 2024 025 [facility], [address], [place], [address], 08/11/2025 14:28:00 Referral otolaryng ologist referral 2024 025 [email or web address] Demian Lin MD, [address], [place], [address], 09/14/2025 16:26:17 Procedures None recorded. Surgeries None recorded. Imaging None recorded. Medication Orders Eliquis 2.5 mg tablet 2024 025 [facility], [address], [place], [address], 10/05/2025 13:02:19 benzonata te 100 mg capsule 2024 025 [facility], [address], [place], [address], 10/05/2025 12:57:46 Patient TargetsNo targets recorded. Patient Instructions Encounter Date Encounter Id Patient Instructions Last Modified By Organization Details Last Modified Time 08/11/2025 [id number] hospital discharge follow up* Not available 08/11/2025 13:20:06 Call or return for questions or concerns. Not available 08/11/2025 13:16:55 09/03/2025 [id number] Call or return for questions or concerns. 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 for Referral Survey Associate Referral fo r Dysfunction of right eustachian tube Referring Physician: Barbara Stoddard, Family Medicine, Encounter Date: 09/03/2025 Results Created Date Observation Date Name Description Value Unit Range Abnormal Flag Note LastModifiedBy Organization Detail LastModifiedTime 07/15/2007/15/2025 BMP (MALE ) glucose 176.0 mg/dL 60.0-9 9.0 high Not Available [facility] [address] [facility], [place], [address], 07/15/2025 11:49:21 07/15/20 25 07/15/2025 BMP (MALE ) BUN (blood urea nitrogen) 57.0 mg/dL 10.0-2 6.0 high Not Available [facility] [address] [facility] 1, [place], [address], 07/15/2025 11:49:21 07/15/20 25 07/15/2025 BMP (MALE ) creatinine (serum) 3.1 mg/dL 0.4-1. 5 high Not Available [facility] [address] [facility] 1, [place], [address], 07/15/2025 11:49:21 07/15/20 25 07/15/2025 BMP (MALE ) BUN/creatini ne ratio 18.39 ratio Not Available [facility] [address] [facility] 1, [place], [address], 07/15/2025 11:49:21 07/15/20 25 07/15/2025 BMP (MALE ) calcium 9.0 mg/dL 8.4-10 .5 Not Available [facility] [address] [facility] [facility], [place], [address], 07/15/2025 11:49:21 07/15/20 25 07/15/2025 BMP (MALE ) sodium 141.0 mmol/ L 136.0- 145.0 Not Available [facility] [address] [facility], [place], [address], 07/15/2025 11:49:21 07/15/20 25 07/15/2025 BMP (MALE ) potassium 4.7 mmol/ L 3.5-5. 1 Not Available [facility] [address] [facility] 1, [place], [address], 07/15/2025 11:49:21 07/15/20 25 07/15/2025 BMP (MALE ) chloride 112.0 mmol/ L 98.0-1 10.0 abnormal Not Available [facility] [address] [facility] 1, [place], [address], 07/15/2025 11:49:21 07/15/20 25 07/15/2025 BMP (MALE ) C02 19.0 mmol/ L 22.0-3 1.0 low Not Available [facility] [address] [facility] 1, [place], [address], 07/15/2025 11:49:21 07/31/2007/31/2025 CBC WBC 7.7 x10 4.5-10 .5 Not Available [facility] [address] [facility] 1, [place], [address], 07/31/2025 10:43:25 07/31/20 25 07/31/2025 CBC RBC 2.53 x10 4.30-5 .90 low Not Available [facility] [address] [facility] 1, [place], [address], 07/31/2025 10:43:25 07/31/20 25 07/31/2025 CBC HGB 7.5 g/dL 13.5-1 8.0 low Not Available [facility] [address] [facility] [facility] 1, [place], [address], 07/31/2025 10:43:25 07/31/20 25 07/31/2025 CBC HCT 24.2 % 35.0-6 0.0 low Not Available [facility] [address] [facility] 1, [place], [address], 07/31/2025 10:43:25 07/31/2007/31/2025 CBC MCV 95.5 fL 80.0-9 9.9 Not Available [facility] [address] [facility] 1, [place], [address], 07/31/2025 10:43:25 07/31/2007/31/2025 CBC MCH 29.4 pg 27.0-3 2.0 Not Available [facility] [address] [facility] [facility] 1, [place], [address], 07/31/2025 10:43:25 07/31/2007/31/2025 CBC MCHC 30.8 g/dL 32.0-3 6.0 low Not Available [facility] [address] [facility] [facility] 1, [place], [address], 07/31/2025 10:43:25 07/31/2007/31/2025 CBC RDW 15.0 % 11.5-1 4.5 high Not Available [facility] [address] [facility] 1, [place], [address], 07/31/2025 10:43:25 07/31/2007/31/2025 CBC plt 162.3 x10 150.0- 451.0 Not Available [facility] [address] [facility] 1, [place], [address], 07/31/2025 10:43:25 07/31/2007/31/2025 CBC lymphocytes % 22.8 % 20.0-5 0.0 Not Available [facility] [address] [facility] 1, [place], [address], 07/31/2025 10:43:25 07/31/2007/31/2025 CBC granulcytes % 64.1 % 30.0-7 0.0 Not Available [facility] [address] [address], [place], [address], 07/31/2025 10:43:25 07/31/2007/31/2025 CBC monocytes % 9.2 % 2.0-16 .0 Not Available [facility] [address] [address], [place], [address], 07/31/2025 10:43:25 07/31/2007/31/2025 CBC granulcytes# 4.9 x10 Not Stephanie ilable [facility] [address] [address], [place], [address], 07/31/2025 10:43:25 07/31/2007/31/2025 CBC lymphocytes # 1.8 x10 Not Available [facility] [address] [address], [place], [address], 07/31/2025 10:43:25 07/31/2007/31/2025 CBC monocytes # 0.7 x10 Not Avai lable [facility] [address] [address], [place], [address], 07/31/2025 10:43:25 07/31/2007/31/2025 BMP (MALE ) glucose 165.0 mg/dL 60.0-9 9.0 high Not Available [facility] [address] [address], [place], [address], 07/31/2025 11:19:52 07/31/2007/31/2025 BMP (MALE ) BUN (blood urea nitrogen) 71.0 mg/dL 10.0-2 6.0 high Not Available [facility] [address] [address], [place], [address], 07/31/2025 11:19:52 07/31/20 25 07/31/2025 BMP (MALE ) creatinine (serum) 3.5 mg/dL 0.4-1. 5 high Not Available [facility] [address] [facility] 1, [place], [address], 07/31/2025 11:19:52 07/31/20 25 07/31/2025 BMP (MALE ) BUN/creatini ne ratio 20.29 ratio Not Available [facility] [address] [facility], [place], [address], 07/31/2025 11:19:52 07/31/2007/31/2025 BMP (MALE ) calcium 8.8 mg/dL 8.4-10 .5 Not Available [facility] [address] [address], [place], [address], 07/31/2025 11:19:52 07/31/2007/31/2025 BMP (MALE ) sodium 141.0 mmol/ L 136.0- 145.0 Not Available [facility] [address] [facility] [address] [address], [place], [address], 07/31/2025 11:19:52 07/31/2007/31/2025 BMP (MALE ) potassium 4.6 mmol/ L 3.5-5. 1 Not Available [facility] [address] [facility] [address] [address], [place], [address], 07/31/2025 11:19:52 07/31/20 25 07/31/2025 BMP (MALE ) chloride 112.0 mmol/ L 98.0-1 10.0 abnormal Not Available [facility] [address] [facility] [address] [facility], [place], [address], 07/31/2025 11:19:52 07/31/20 25 07/31/2025 BMP (MALE ) C02 17.0 mmol/ L 22.0-3 1.0 low Not Available [facility] [address], [place], [address], 07/31/2025 11:19:52 08/11/2008/11/2025 CBC WBC 10.2 x10 4.5-10 .5 Not Available [facility] [address], [place], [address], 08/11/2025 14:28:00 08/11/20 25 08/11/2025 CBC RBC 3.26 x10 4.30-5 .90 low Not Available [facility] [address], [place], [address], 08/11/2025 14:28:00 08/11/20 25 08/11/2025 CBC HGB 9.7 g/dL 13.5-1 8.0 low Not Available [facility] [address], [place], [address], 08/11/2025 14:28:00 08/11/20 25 08/11/2025 CBC HCT 30.8 % 35.0-6 0.0 low Not Available [facility] [address], [place], [address], 08/11/2025 14:28:00 08/11/20 25 08/11/2025 CBC MCV 94.4 fL 80.0-9 9.9 Not Available [facility] [address], [place], [address], 08/11/2025 14:28:00 08/11/20 25 08/11/2025 CBC MCH 29.9 pg 27.0-3 2.0 Not Available [facility] [address], [place], [address], 08/11/2025 14:28:00 08/11/20 25 08/11/2025 CBC MCHC 31.6 g/dL 32.0-3 6.0 low Not Available [facility] [address] [facility] 1, [place], [address], 08/11/2025 14:28:00 08/11/2008/11/2025 CBC RDW 16.0 % 11.5-1 4.5 high Not Available [facility] [address] [facility] 1, [place], [address], 08/11/2025 14:28:00 08/11/2008/11/2025 CBC plt 198.7 x10 150.0- 451.0 Not Available [facility] [address] [facility] 1, [place], [address], 08/11/2025 14:28:00 08/11/2008/11/2025 CBC lymphocytes % 18.7 % 20.0-5 0.0 low Not Available [facility] [address] [facility], [place], [address], 08/11/2025 14:28:00 08/11/20 25 08/11/2025 CBC granulcytes % 66.6 % 30.0-7 0.0 Not Available [facility] [address] [facility], [place], [address], 08/11/2025 14:28:00 08/11/2008/11/2025 CBC monocytes % 11.8 % 2.0-16 .0 Not Available [facility] [address] [facility] 1, [place], [address], 08/11/2025 14:28:00 08/11/20 25 08/11/2025 CBC granulcytes# 6.8 x10 Not Stephanie ilable [facility] [address] [facility] 1, [place], [address], 08/11/2025 14:28:00 08/11/20 25 08/11/2025 CBC lymphocytes # 1.9 x10 Not Available [facility] [address] [facility] 1, [place], [address], 08/11/2025 14:28:00 08/11/20 25 08/11/2025 CBC monocytes # 1.2 x10 Not Avai lable [facility] [address] [address], [place], [address], 08/11/2025 14:28:00 08/11/20 25 08/11/2025 CMP (MALE ) glucose 132.0 mg/dL 60.0-9 9.0 high Not Available [facility] [address] [address], [place], [address], 08/11/2025 15:58:28 08/11/20 25 08/11/2025 CMP (MALE ) BUN (blood urea nitrogen) 71.0 mg/dL 10.0-2 6.0 high Not Available [facility] [address] [address], [place], [address], 08/11/2025 15:58:28 08/11/20 25 08/11/2025 CMP (MALE ) creatinine (serum) 3.8 mg/dL 0.4-1. 5 high Not Available [facility] [address] [address], [place], [address], 08/11/2025 15:58:28 08/11/20 25 08/11/2025 CMP (MALE ) BUN/creatini ne ratio 18.68 ratio Not Available [facility] [address] [address], [place], [address], 08/11/2025 15:58:28 08/11/20 25 08/11/2025 CMP (MALE ) eGFR calculated 16.8 Not Available [facility] [address] [facility] [facility] 1, [place], [address], 08/11/2025 15:58:28 08/11/20 25 08/11/2025 CMP (MALE ) total protein 7.0 g/dL 6.0-8. 5 Not Available [facility] [address] [facility], [place], [address], 08/11/2025 15:58:28 08/11/20 25 08/11/2025 CMP (MALE ) total bilirubin 0.7 mg/dL 0.2-1. 3 Not Available [facility] [address] [facility], [place], [address], 08/11/2025 15:58:28 08/11/20 25 08/11/2025 CMP (MALE ) albumin 3.5 g/dL 3.5-5. 5 Not Available [facility] [address] [facility], [place], [address], 08/11/2025 15:58:28 08/11/20 25 08/11/2025 CMP (MALE ) globulin 3.5 calc Not Available [facility] [address] [facility], [place], [address], 08/11/2025 15:58:28 08/11/20 25 08/11/2025 CMP (MALE ) AST (SGOT) 37.0 U/L 0.0-46 .0 Not Available [facility] [address] [facility] 1, [place], [address], 08/11/2025 15:58:28 08/11/20 25 08/11/2025 CMP (MALE ) altv (SGPT) 14.0 U/L 13.0-6 9.0 normal Not Available [facility] [address] [facility] 1, [place], [address], 08/11/2025 15:58:28 08/11/20 25 08/11/2025 CMP (MALE ) A/G ratio 1.0 ratio Not Available [facility] [address] [facility] 1, [place], [address], 08/11/2025 15:58:28 08/11/20 25 08/11/2025 CMP (MALE ) ALP phos 208.0 U/L 30.0-1 40.0 abnormal Not Available [facility] [address] [facility] 1, [place], [address], 08/11/2025 15:58:28 08/11/20 25 08/11/2025 CMP (MALE ) calcium 9.3 mg/dL 8.4-10 .5 Not Available [facility] [address] [facility] 1, [place], [address], 08/11/2025 15:58:28 08/11/20 25 08/11/2025 CMP (MALE ) sodium 137.0 mmol/ L 136.0- 145.0 Not Available [facility] [address] [facility] 1, [place], [address], 08/11/2025 15:58:28 08/11/20 25 08/11/2025 CMP (MALE ) potassium 4.4 mmol/ L 3.5-5. 1 Not Available [facility] [address] [facility] 1, [place], [address], 08/11/2025 15:58:28 08/11/20 25 08/11/2025 CMP (MALE ) chloride 106.0 mmol/ L 98.0-1 10.0 normal Not Available [facility] [address] [facility] 1, [place], [address], 08/11/2025 15:58:28 08/11/20 25 08/11/2025 CMP (MALE ) C02 20.0 mmol/ L 22.0-3 1.0 low Not Available [facility] [facility] [address], [place], [address], 08/11/2025 15:58:28 08/11/20 25 08/11/2025 CMP (MALE ) anion gap 11.0 calc Not Available [facility] [facility] [address], [place], [address], 08/11/2025 15:58:28 08/11/20 25 08/11/2025 CMP (MALE ) osmolality 304.3 calc Not Available [facility] [address] [facility], [place], [address], 08/11/2025 15:58:28 08/11/20 25 08/11/2025 hospi alley disch arge follo w up* Records Reviewed Yes Not Available [facility] ( [facility]) [address] [place] [address], [address], 08/11/2025 13:09:32 08/11/20 25 08/11/2025 hospi alley disch arge follo w up* Medications Reconciles Yes Not Available [facility] [address] [place] [address], [address], 08/11/2025 13:09:32 Result Notes None recorded. Problems Name Problem SNOMED Code Status Onset Date Resolution Date Notes Provider Name and Address Organization Details Recorded Time Anticoagu lant effect 08543765 Active BARBARA STODDARD, [address], [address], [facility], Karina 13:04:03 Chronic ulcer of left foot Active BARBARAAris STODDARD, [facility] [address] [place] [address], [address], [facility], Karina 13:04:34 Tailor's bunion of left foot 321413663457 9100 Active BARBARA STODDARD, [address], [address], [facility] 5 13:04:03 Tobacco user 116500179 Active BARBARA STODDARD, [address], [address], [facility] 5 13:04:03 Contusion of left shoulder 540344474797 94055 Active BARBARA STODDARD, [address], [address], [facility] 5 13:04:03 History of aortic valve replaceme nt 353741282084 0 Active BARBARA STODDARD, [address], [address], [facility] 5 13:04:03 Celluliti s 249300769 Active BARBARA STODDARD, [address], [address], [facility] 5 13:04:03 Lumbar radiculop athy [id number] Aaron STODDARD, [address], [address], [facility] 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 5 13:04:03 History of pulmonary embolus [id number] Aaron STODDARD, [address], [address], [facility] 5 14:36:21 Abdominal pain [id number] Aaron STODDARD, [address], [address] [place] [address] 5, [facility] 5 13:04:03 Acute-on- chronic renal failure 287084121 Active BARBARA STODDARD, [address], [address] [place] [address] 5, [facility] 5 13:04:03 Thoracic back pain [id number] Aaron STODDARD, [place] [address] 5, [facility] 5 13:04:03 Orthostat ic hypotensi on [id number] Aaron STODDARD, [address], [address] [place] [address] 5, [facility] 5 13:04:03 Chest pain [id number] Aaron STODDARD, [address], [address] [place] [address], [facility] 5 13:04:03 Low back strain [id number] Aaron STODDARD, [address], [address] [place] [address], [facility] 5 13:04:03 Patient encounter status [id number] Aaron STODDARD, [place] [address], [facility] 5 13:04:03 Internati onal normalize d ratio above reference range [id number] Aaron STODDARD, [place] [address], [facility] 5 13:04:03 Dehydrati on [id number] Aaron STODDARD, [place] [address], [facility] 5 13:04:03 Blood in urine [id number] Aaron STODDARD, [place] [address], [facility] 5 13:04:03 Diabetic foot ulcer [id number] Aaron STODDARD, [place] [address], [facility] 5 13:04:03 Pericardi al effusion [id number] Aaron STODDARD, [place] [address], [facility] 13:04:03 Acquired keratoder ma [id number] Aaron STODDARD, [place] [address], [facility] 5 13:04:03 Strain of muscle of chest wall [id number] Aaron STODDARD, [place] [address], [facility] 5 13:04:03 History of malignant neoplasm of skin excluding melanoma [id number] Aaron STODDARD, [place] [address], [facility] 13:04:03 Acute hyponatre nithin [id number] Aaron STODDARD, [place] [address], [facility] 5 13:04:03 Foot pain [id number] Aaron STODDARD, [address], [address], [facility] 5 13:04:03 Acute exacerbat ion of chronic congestiv e heart failure [id number] Aaron STODDARD, [address], [address], [facility] 5 13:04:03 Prehypert ension [id number] Aaron STODDARD, [address], [address], [facility] 5 13:04:03 Osteomyel itis of forefoot [id number] Aaron STODDARD, [address], [address], [facility] 5 13:04:03 Acute hypoxemic respirato ry failure [id number] Aaron STODDARD, [address], [address], [facility] 5 13:04:03 Pulmonary hypertens ion [id number] Aaron STODDARD, [address], [address], [facility] 5 13:04:03 COVID-19 [id number] Aaron STODDARD, [address], [address] [place] [address] 5, [facility] 5 14:36:21 Periphera l arterial disease [id number] Aaron STODDARD, [address] [place], [address], [facility] 5 13:04:03 Ulcer of left foot due to diabetes mellitus 709308108 Active BARBARA STODDARD, [address], [address], [facility] 5 13:04:03 Abscess of left foot 234060604035 89948 Active BARBARA STODDARD, [address], [address], [facility] 5 13:04:34 Laceratio n of right foot 915970097626 74446 Active BARBARA STODDARD, [address], [address], [facility] 5 13:04:34 Foot ulcer due to type 2 diabetes mellitus 315584087493 0 Active BARBARA STODDARD, [address], [address], [facility] 5 13:04:34 Fall Active BARBARA STODDARD, [address], [address], [facility] 5 13:04:34 Laceratio n of toe 415173274 Active BARBARA STODDARD, [address], [address], [facility] 5 13:04:34 Pain in left foot 494377830281 107 Active BARBARA STODDARD, [address], [address], [facility] 5 13:04:34 Infection of foot due to diabetes mellitus 742703260 Active BARBARA STODDARD, [address], [address], [facility] 5 13:04:34 Low blood pressure 66066732 Active BARBARA STODDARD, [address], [address], [facility] 5 13:04:34 Acute respirato ry failure 29767074 Active BARBARA STODDARD, [address], [address], [facility] 5 13:04:34 Long-term current use of anticoagu lant [id number] Aaron STODDARD, [address], [address], [facility] 5 13:04:34 Gastroint estinal hemorrhag e [id number] [facility] BARBARA STODDARD, [address], [address], [facility] 5 13:04:34 Edema of left lower limb 200221645 Active BARBARA STODDARD, [address], [address], [facility] 5 13:04:34 Chronic obstructi ve pulmonary disease 89540800 Active 2022 KERRY ANTHONY [address], [address], [facility] 5 14:44:25 Type 2 diabetes mellitus without complicat ion 413374605 Active 2022 Insulin Dependent Diabetes Mellitus KERRY ANTHONY[address], [address] [place] [address] 5, [facility] 5 14:44:25 Diabetes mellitus 91601345 Active 2022 FELIX WATSON [facility], [facility] 5 13:39:55 Dyspnea 525147730 Active [address] [place] [address] 5, [facility] 5 14:44:25 Hyperchol esterolem ia 80622627 Active 2022 [address] [place] [address] 5, [facility] 5 14:44:25 Hypothyro idism 55171747 Active 2022 [place] [address], [facility] 5 14:44:25 Anemia 918472257 Active 2023 BARBARA OLIVARESTES, [address], [address] [place] [address] 5, [facility] 5 14:36:21 Intermitt ent vomiting 142090476 Active 2023 [place] [place] [address] 5, [facility] 5 14:44:25 Chronic atrial fibrillat ion 369951147 Active 2024 [address] [place] [address] 5, [facility] 5 14:44:25 Chronic pulmonary thromboem bolism 862593727 Active 2024 KERRY CRUZ, [address], [address], [facility], Jessica.LAnuelCAnuel 14:44:25 Congestiv e heart failure 60897137 Active 2024 BARBARA STODDARD, [address], [address], [facility], DedraLAnuelCAnuel 14:36:21 Chronic kidney disease 093735897 Active 2024 KERRYLAWRENCE CRUZ, [address], [address], [facility], LAnuelLAnuelCAnuel 14:44:25 Pain of left shoulder joint 063581833040 54979 Active 2024 THOMAS Lopez [facility], LAnuelLAnuelCAnuel 10:41:05 End-stage renal disease 47204126 Active 2024 FELIX garcia [facility], LAnuelLAnuelCAnuel 13:40:15 Osteomyel itis of foot Active 2024 FELIX garcia [facility], LAnuelLAnuelCAnuel 13:41:02 Problem Notes None recorded. Procedures Surgical History Date Name Laterality Status Provider Name and Address Organization Details Recorded Time 2024 procedure on foot completed ALBERT NESS [facility], DedraLAnuelCAnuel 5 12:29:01 2024 plain X-ray of chest completed EMERALD PIKE [facility], DedraLAnuelCAnuel 13:15:[address] of chest [facility] 13:18:55 2024 US scan of chest wall completed [facility] 5 13:19:43 2024 colonoscopy completed [facility], L.L.CAnuel 5 16:37:30 2024 esophagogastroduodenoscopy completed [facility], L.L.[facility]uel 5 16:41:26 2024 plain X-ray of chest completed [facility], [facility].L.C[facility]uel 5 10:22:57 2024 plain X-ray of left foot completed [facility] 5 10:26:[address] of left foot completed [facility] L.L.C[facility]uel 5 10:29:37 2024 Joint Inj Kenalog- Shoulder, Hip, Knee completed Anai Valdivia MD [address] [place] [address], [address] 5 13:50:21 2022 repair of aortic valve completed [facility], LAnuelL.CAnuel 3 11:57:41 complete repair of r otator cuff completed [facility] 5 12:00:19 cataract surgery completed [facility], LAnuelL.CAnuel 5 12:00:39 Imaging Results None recorded. Procedure Notes None recorded. Medical Equipment None Reported. Allergies Allergen ID Allergen Name Allergen Category Reaction Reaction Severity Criticality Documentation Date Start Date Code Code System Note Provider Name and Address Organization Details Recorded Time 48166 No known allergy (situatio n) Not available Not available Not available Not available 08/11/2025 45711 6000 SNOMED BARBARA STODDARD, [facility] [address] [place], [address], [facility] 13:03:47 No known drug allergies [...] Updated DateTime 5 162.56 cm 28.8 kg/m2 29364.5 2 g 90 % 90 /min 22 /min 132/80 mm[Hg] EMERALD [facility] 5 12:38:39 Date Recorded Body height Body mass index (BMI) Body weight Oxygen saturation Heart rate Respiratory rate Systolic And Diastolic Provider Name and Address Organization Details Last Updated DateTime 5 162.56 cm 29 kg/m2 36000.1 1 g 93 % 62 /min 24 /min 98/50 mm[Hg] EMERALD [facility] 5 14:15:36 Date Recorded Body height Body mass index (BMI) Body weight Oxygen saturation Heart rate Respiratory rate Body temperature Systolic And Diastolic Provider Name and Address Organization Details Last Updated DateTime 5 162.56 cm 26.3 kg/m2 81698.6 3 g 97 % 82 /min 20 /min 97.9 [degF] 130/66 mm[Hg] THOMAS DAMON [facility] 5 17:09:55 Date Recorded Body height Body mass index (BMI) Body weight Oxygen saturation Heart rate Respiratory rate Body temperature Systolic And Diastolic Provider Name and Address Organization Details Last Updated DateTime 5 162.56 cm 28.2 kg/m2 00310.1 5 g 90 % 76 /min 20 /min 98.9 [degF] 102/52 mm[Hg] FELIX WATSON [facility] 5 13:33:52 Date Recorded Body height Body mass index (BMI) Body weight Oxygen saturation Inhaled oxygen flow rate Heart rate Respiratory rate Body temperature Systolic And Diastolic Provider Name and Address Organization Details Last Updated DateTime 162.56 cm 30.2 kg/m2 71869.2 6 g 88 % 3 L/min 84 /min 24 /min 97.7 [degF] 136/58 mm[Hg] ALBERT NESS [facility] 12:31:34 Social History Question Answer Notes LastModified by Organizat ion Details LastModified Time Tobacco Smoking Status Former Smoker ALBERT NESS jose [facility] 10/25/2023 12:00:37 When Did You Quit [...] 50 mcg/0.25mL dose 1 completed ALBERT garcia, [facility] 05/28/2023 10:19:38 COVID-19, mRNA, LNP-S, PF, 100 mcg/0.5mL dose or 50 mcg/0.25mL dose 1 completed ALBERT garcia [facility] 05/28/2023 10:19:38 Influenza, split virus, trivalent, preservative 3 completed Not Available [facility] 10/05/2025 11:30:10 Influenza, split virus, trivalent, PF 4 completed Not Available [facility] hospital 10/05/2025 11:30:10 Tdap 5 completed BARBARA STODDARD [facility] [address] [place], [address], [facility] 08/11/2025 13:04:45 Td(adult) unspecified formulation 3 completed Not Available Critical access hospital 07/26/2023 09:10:01 Influenza, split virus, trivalent, preservative 3 completed Not Available Critical [facility] hospital 07/26/2023 09:10:01 Influenza, split virus, trivalent, preservative 2 completed Not Available Critical [facility] hospital 07/26/2023 09:10:01 Influenza, split virus, trivalent, preservative 4 completed Not Available Critical access hospital 07/26/2023 09:10:01 Past Encounters Encounter ID Performer Location Encounter Start Date Encounter Closed Date Diagnosis/Indication Diagnosis SNOMED-CT Code Diagnosis ICD10 Code Diagnosis IMO Codes Diagnosis Note [id number] Anai Valdivia MD [facility] ([facility]) [address] [place] [address] 04/24/2023 11:23:34 04/24/2023 11:24:50 Diabetes mellitus 22133015 E13.42 very poorly controlled . Maybe another perspectiv e will help to motivate the patient to do a better job with his diabetes. Pain in left foot 401380 3840 78394 M79.672 [id number] Anai Valdivia MD [facility] ([facility]) [address] [place] [address] 05/28/2023 10:12:59 05/28/2023 20:28:54 Diabetes mellitus 75837320 E13.42 [id number] Anai Valdivia MD [facility] ([facility]) [address] [place] [address] 07/26/2023 09:09:50 08/03/2023 17:40:19 Type 2 diabetes mellitus without complication 200853072 E11.9 Long-term current use of antibiotic 982229615 Z79.2 [id number] Anai Valdivia MD [facility] ([facility]) [address] [place] [address] 10/18/2023 08:52:26 10/18/2023 14:10:20 Atrial fibrillation 25400747 I48.91 [id number] Anai Valdivia MD [facility] ([facility]) [address] [place] [address] 10/25/2023 10:49:29 10/25/2023 12:59:56 Type 2 diabetes mellitus without complication 778363662 E11.9 [id number] Anai Valdivia MD [facility] ([facility]) [address] [place] [address] 11/02/2023 09:14:03 11/02/2023 09:34:02 Pulmonary arterial hypertension 69989962 I27.21 Type 2 claudia betes mellitus without complication 320694574 E11.9 [id number] Anai Valdivia MD [facility] ([facility]) [address] [place] [address] 12/25/2023 12:04:07 12/26/2023 13:59:44 Dyspnea 783724548 R06.00 [id number] Anai Valdivia MD [facility] ([facility]) [address] [place] [address] 01/23/2024 08:43:49 01/24/2024 10:51:34 [id number] Anai Valdivia MD [facility] ([facility]) [address] [place] [address] 02/26/2024 10:20:39 02/26/2024 11:26:00 Type 2 diabetes mellitus without complication 689880875 E11.9 Hypothyroidism 89691490 E03.9 Diabetes mellitus 024436 09 E13.42 Chronic ob structive pulmonary disease 47979431 J44.9 Atrial fibrillation 4943 6004 I48.91 Congestive heart failure 81467985 I50.9 Hyperlipidemia 98855853 E78.5 Chronic pu lmonary thromboembolism 388503438 I27.82 [id number] Anai Valdivia MD [facility] ([facility]) [address] [place] [address] 5 03/26/2024 09:43:38 03/26/2024 10:01:06 Pulmonary arterial hypertension 71469830 I27.21 [id number] Anai Valdivia MD [facility] ([facility]) [address] [place] [address] 05/13/2024 08:22:02 05/13/2024 21:37:47 Pulmonary arterial hypertension 50576617 I27.21 [id number] Anai Valdivia MD [facility] ([facility]) [address] [place] [address] 06/09/2024 10:05:48 06/09/2024 10:52:06 Diabetes mellitus 80747720 E13.42 Intermittent vomiting 23 6917235 R11.10 Anemia 634242727 D64.9 Pain of le ft shoulder joint 7944533973 5381621 M25.743 [id number] Feliciano Gordon MD [facility] ([facility]) [address] [place] [address] 06/12/2024 15:28:04 06/12/2024 16:59:40 Bronchitis 64601855 J40 Concerned about his exam of the mild wheezing. Start antibiotic s. Continue to use inhalers. Cough 74156022 R05.9 COVID test was negative. Nausea and vomiting 1692 1999 R11.2 Provide some Zofran to help with nausea and vomiting so the patient can remain hydrated. Encouraged the patient to drink clear liquids today and start a bland diet tomorrow. Acute gastroenteritis 69 109929 K52.9 [id number] Anai Valdivia MD [facility] ([facility]) [address] [place] [address] 07/22/2024 08:26:33 07/23/2024 12:14:56 Type 2 diabetes mellitus without complication 764600096 E11.9 [id number] Anai Valdivia MD [facility]) [address] [place], [place] [address] 08/11/2024 09:46:45 08/11/2024 11:07:33 Type 2 diabetes mellitus without complication 156522631 E11.9 Anemia 978333340 D64.9 Diabetes mellitus 981991 09 E13.42 [id number] Anai Valdivia MD [facility] ([facility]) [address] [place] [address] 08/11/2024 11:08:19 08/12/2024 04:03:50 Chronic kidney disease stage 3B 039426562 N18.32 Anemia 749669207 D64.9 [id number] Anai Valdivia MD [facility]) [address] [place] [address] 11/25/2024 12:43:40 11/25/2024 16:07:09 Hypercholesterolemia 39736612 E78.00 Chronic ob structive pulmonary disease 83414851 J44.9 Type 2 claudia betes mellitus without complication 092504742 E11.9 Hypothyroidism 75513065 E03.9 Chronic at rial fibrillation 044810624 I48.20 Chronic pu lmonary thromboembolism 945187788 I27.82 Congestive heart failure 03388305 I50.9 Chronic ki dney disease 960250429 I13.0 Pain of le ft shoulder joint 3935513603 2051195 M25.116 [id number] Anai Valdivia MD [facility] ([facility]) [address] [place] [address] 02/03/2025 13:55:19 02/04/2025 12:20:12 Anemia co-occurrent and due to chronic kidney disease stage 3 1717526090 67795 D63.1 Congestive heart failure 82959074 I50.812 Anemia 758172790 D64.9 [id number] ASHISH YOUNGBLOOD [facility] ([facility]) [address] [place] [address] 02/08/2025 14:12:09 02/09/2025 22:25:04 Acute pansinusitis 3620220 J01.40 Discussed use of antibiotic . Take with food.May use Stepan's nasal inserts and also apply on chest. Push oral fluids. Consider nasal saline rinses and otc decongesta nt.Use tylenol/mo minh for alston. [id number] Anai Valdivia MD [facility] ([facility]) [address] [place] [address] 02/24/2025 10:58:39 02/24/2025 12:55:05 Congestive heart failure 15431689 I50.812 Chronic ob structive pulmonary disease 21712544 J44.9 Diabetes mellitus 022568 09 E13.42 Uncontroll ed type 2 diabetes mellitus 731377996 E11.65 Pain of le ft shoulder joint 3791223499 4378785 M25.512 Screening for malignant neoplasm of colon 218778067 Z12.11 [id number] Anai Valdivia MD [facility] ([facility]) [address] [place] [address] 06/01/2025 10:17:34 06/01/2025 11:12:05 Type 2 diabetes mellitus without complication 541813651 E11.9 Hypothyroidism 35117239 E03.9 Chronic at rial fibrillation 789113358 I48.20 [id number] Anai Valdivia MD [facility] ([facility]) [address] [place] [address] 07/08/2025 10:08:24 07/09/2025 12:33:19 Chronic kidney disease stage 4 667527362 N18.4 3814843 Adult heal th examination 854465192 Z00.01 5861040 [id number] Anai Valdivia MD [facility] ([facility]) [address] [place] [address] 07/15/2025 09:46:43 07/16/2025 15:47:39 Acute kidney injury 69159725 N17.9 7511461 [id number] Anai Valdivia MD [facility] ([facility]) [address] [place] [address] 07/31/2025 09:23:28 08/03/2025 10:19:47 Anemia 234966286 D64.9 Acute kidney injury 1466 9001 N17.9 166198 [id number] ASHISH WALKER [facility] ([facility]) [address] [place] [address] 08/11/2025 12:00:43 08/11/2025 13:58:09 Chronic kidney disease stage [id number] Mcclain [place] is who he follows with for kidneys. Cr 3.6 on discharge. Iron defic iency anemia 92880564 D50.8 82465423 Injury of right foot 771 833275 S91.301A [id number] Will follow with Dr. Higginbotham or Dr. Mendoza. Diabetic foot ulcer 3710 93606 E11.621 L97.428 Follows with wound care. Congestive heart failure 97042305 I50.812 Lots of fluid pulled off during hospital visit. [id number] ASHISH WALKER [facility] ([facility]) [address] [place] [address] 09/03/2025 13:46:21 09/03/2025 15:17:40 Pulmonary embolism 99040488 I26.99 306035 Recent hospitaliz ation. Chronic anemia 552949432 D64.9 841839 Recent hospitaliz ation. Dysfunctio n of right eustachian tube 1180588885 003535 H69.91 01943094 [id number] Anai Valdivia MD [facility] ([facility]) [address] [place] [address] 09/15/2025 09:28:58 09/16/2025 09:28:20 Insulin treated type 2 diabetes mellitus 632892035 E11.59 Z79.4 13983576 End stage renal failure on dialysis 658781174 N18.6 Z99.2 010579 Peripheral arterial disease 228994692 I73.9 553832 Anemia 825528614 D64.9 88822647 Lives in [facility]cf 16 0760493 Z78.9 1292717 Foot ulcer due to type 2 diabetes mellitus 4320318467 100 E11.571 [id number] Anai Valdivia MD [facility] ([facility]) [address] [place] [address] 10/05/2025 11:29:54 10/12/2025 08:15:19 Chronic cough 00237705 R05.3 35116 Congestive heart failure 05233686 I50.812 Pulmonary hypertension 18964977 I27.20 Chronic at rial fibrillation 522380346 I48.20 Type 2 claudia betes mellitus without complication 744427555 E11.9 Anticoagulant effect 101 46195 Z79.01 8677059642 Health Concerns Section Related Observation LastModified by Organization Detai ls LastModified Time None Recorded Concern Status LastModified by Organization Details LastModified Time None Recorded Advance Directives Directive None Recorded Payers Insurance Date Sequence Insurance Name Policy Number Policy Godinez Covered Member ID Godinez Member ID Guarantor Name 09/30/2025 [place] - [place] - [facility] (MEDICARE) Guy Wiseman [id number] Guy Wiseman 10/12/2025 1 [employer] (MEDICARE REPLACEMENT/ ADVANTAGE - PPO) [id number] Guy Wiseman [id number] Guy Wiseman 02/21/2023 1 *SELF PAY* Fr awilda Wiseman 07/24/2025 1 [place] Guy Wiseman [id number] Guy Wiseman Notes Date Note Type Note Provider Name and Address Organization Details Recorded Time 09/03/20 25 text/htm l EaracheReported by PatientHPIFor associated symptoms, patient reportshearing loss. For location, patient reportsbilateral. For severity, patient reportscontinuousandmild. ASHISH WALKER [address] [place] [address], [address], [facility] 09/03/2025 15:15:45 09/15/20 25 text/htm l ROS as noted in the HPI HISTORY-Pt is going to wound care for a ulcer on his left footpt sees [employer] in [facility]. He recently started pt on Jardiancept declined ColonoscopyPt sees [facility], Pt has started dialysis every Sunday, Sunday and Sunday. Pt has been treated for PAD, pulmonary emboli, type 2 diabetes mellitus with left foot ulcer, GI bleed, acute kidney injury superimposed on CKD, end stage renal disease on dialysis, Non ST elevated myocardial infarction Anai Valdivia MD [address] [place] [address], [phone], [facility] 09/15/2025 18:09:21 09/30/20 25 text/htm l Atrial FibrillationReported by PatientHPIFor quality, patient reportspressure,squeezing,ach ing, andfluttering. For context, patient reportsexertionalandafter missing medications. For aggravating factors, patient reportsexercise. For pain location, patient reportschest. For severity, patient reportsmoderate. For duration, patient reportshas noted for years. For alleviating factors, patient reportsmedication. Not Available Not Available Not Available 10/05/20 25 text/htm l Atrial FibrillationReported by [...] he resume B12, Eliquis and Iron? Anai Valdivai MD [address] [place], [address], [facility], Karina 10/07/2025 16:10:57
--- OUTSIDE RECORDS SUMMARY | 2025-10-16 09:27 | XMS_ITS | Clinical Summary ---
Author Organization [employer] Address [address] [facility] Attn: Epic Prelude ADT MELISA RIVERA [address] Care Team Providers Care Package Handler Name Role Phone Unavailable Primary Care Provider [...] Flex Sig/CT Colonography Q 5 years 1999 RSV VACCINE (60+ or ) (1 - Risk 50-74 years 1-dose series) 2004 ZOSTER VACCINE (1 of 2) 2004 DIABETES HBA1C Q 6 MONTHS 06/05/2024 12/06/2023 INFLUENZA VACCINE (#1) 2025
--- OUTSIDE RECORDS SUMMARY | 2025-10-16 09:27 | XMS_ITS | Continuity of Care Document ---
Author Organization MELISA [facility]ios [facility], [facility] ([facility]) Address [address] [place] [address] Care Team Providers Care Primary [employer] Principal Name Role Phone ANAI VALDIVIA Primary Care Provider Assessment No assessment recorded. Plan of Treatment Reminders Order Date Submit Date Provider Last Modified By Organization Details Last Modified Time Details Appointments OFFICE VISIT 10 2024 09:50A M Anai Valdivia MD Not available Not available Not available Lab CBC - ok per Thomas/ will fax to Dr. Mcclain 2024 025 ADDYSTON [facility], [address] [facility], [place], [address], 07/31/2025 10:43:25 BMP, serum or plasma - ordered by Dr Mcclain/ will fax 2024 025 ADDYSTON [facility], [address], [address], 07/31/2025 11:19:52 Referral None recorded . Procedures None recorded . Surgeries None recorded . Imaging None recorded . Medication Orders None recorded . Patient TargetsNo targets recorded. Patient InstructionsNo instructions recorded. Reason for Referral None Reported. Results Created Date Observation Date Name Description Value Unit Range Abnormal Flag Note LastModifiedBy Organization Detail LastModifiedTime 07/08/2007/08/2025 CBC WBC 8.3 x10 4.5-10 .5 Not Available [facility] [address] [facility] 1, [place], [address], 07/08/2025 10:33:33 07/08/20 25 07/08/2025 CBC RBC 2.64 x10 4.30-5 .90 low Not Available [facility] [address] [facility], [place], [address], 07/08/2025 10:33:33 07/08/20 25 07/08/2025 CBC HGB 7.9 g/dL 13.5-1 8.0 low Not Available [facility] [address] [facility], [place], [address], 07/08/2025 10:33:33 07/08/20 25 07/08/2025 CBC HCT 24.8 % 35.0-6 0.0 low Not Available [facility] [address] [facility], [place], [address], 07/08/2025 10:33:33 07/08/20 25 07/08/2025 CBC MCV 93.8 fL 80.0-9 9.9 Not Available [facility] [address] [facility], [place], [address], 07/08/2025 10:33:33 07/08/20 25 07/08/2025 CBC MCH 30.0 pg 27.0-3 2.0 Not Available [facility] [address] [facility], [place], [address], 07/08/2025 10:33:33 07/08/20 25 07/08/2025 CBC MCHC 31.9 g/dL 32.0-3 6.0 low Not Available [facility] [address] [facility], [place], [address], 07/08/2025 10:33:33 07/08/20 25 07/08/2025 CBC RDW 14.5 % 11.5-1 4.5 Not Available [facility] [address] [facility] 1, [place], [address], 07/08/2025 10:33:33 07/08/20 25 07/08/2025 CBC plt 165.4 x10 150.0- 451.0 Not Available [facility] [address] [facility] 1, [place], [address], 07/08/2025 10:33:33 07/08/20 25 07/08/2025 CBC lymphocytes % 21.5 % 20.0-5 0.0 Not Available [facility] [address] [facility] 1, [place], [address], 07/08/2025 10:33:33 07/08/20 25 07/08/2025 CBC granulcytes % 64.0 % 30.0-7 0.0 Not Available [facility] [address] [facility] 1, [place], [address], 07/08/2025 10:33:33 07/08/20 25 07/08/2025 CBC monocytes % 9.1 % 2.0-16 .0 Not Available [facility] [address] [facility] 1, [place], [address], 07/08/2025 10:33:33 07/08/20 25 07/08/2025 CBC granulcytes# 5.3 x10 Not Stephanie ilable [facility] [address] [facility] 1, [place], [address], 07/08/2025 10:33:33 07/08/20 25 07/08/2025 CBC lymphocytes # 1.8 x10 Not Available [facility] [address] [address], [place], [address], 07/08/2025 10:33:33 0807/08/2025 CBC monocytes # 0.8 x10 Not Avai lable [facility] [address] [facility] 1, [place], [address], 07/08/2025 10:33:33 07/08/2007/09/2025 IRON AND TOTAL IRON DARIAN NG CAPAC ITY iron, total 54 mcg/d L 50-180 normal Not Available [address] [address] [place], [address], 07/09/2025 05:15:15 07/08/2007/09/2025 IRON AND TOTAL IRON DARIAN NG CAPAC ITY iron binding capacity 240 mcg/d L_(ca lc) 250-42 5 low Not Available [address] [address] [place], [address], 07/09/2025 05:15:15 07/08/2007/09/2025 IRON AND TOTAL IRON DARIAN NG CAPAC ITY % saturation 23 %_(ca lc) 20-48 normal Not Available [facility] [address] [address] [place], [address], 07/09/2025 05:15:15 07/08/2007/09/2025 RENAL FUNCT ION PANEL glucose 155 mg/dL 65-99 high Fasti ng refer ence inter joel For someo ne witho ut known diabe jimmie, a gluco se value >125 mg/dL indic ates that they may have diabe jimmie and this shoul d be confi rmed with a follo w-up test. Not Available [facility] [address] [address] [place], [address], 07/09/2025 05:15:17 07/08/2007/09/2025 RENAL FUNCT ION PANEL urea nitrogen (BUN) 61 mg/dL 7-25 high Not Available [facility] [address] [address] [place], [address], 07/09/2025 05:15:17 07/08/2013 0707/09/2025 RENAL FUNCT ION PANEL creatinine 3.42 mg/dL 0.70-1 .28 high Not Available [address], [address], 07/09/2025 05:15:17 07/08/20 25 07/09/2025 RENAL FUNCT ION PANEL eGFR 18 mL/mi n/1.7 3m2 > or = 60 low Not Available [address], [address], 07/09/2025 05:15:17 07/08/2007/09/2025 RENAL FUNCT ION PANEL BUN/creatini ne ratio 18 (calc ) 6-22 normal Not Available [address], [address], 07/09/2025 05:15:17 07/08/20 25 07/09/2025 RENAL FUNCT ION PANEL sodium 139 mmol/ L 135-14 6 normal Not Available [address] [address] [place], [address], 07/09/2025 05:15:17 07/08/20 25 07/09/2025 RENAL FUNCT ION PANEL potassium 4.4 mmol/ L 3.5-5. 3 normal Not Available [address], [address], 07/09/2025 05:15:17 07/08/20 25 07/09/2025 RENAL FUNCT ION PANEL chloride 109 mmol/ L 98-110 normal Not Available [address], [address], 07/09/2025 05:15:17 07/08/20 25 07/09/2025 RENAL FUNCT ION PANEL carbon dioxide 20 mmol/ L 20-32 normal Not Available [address], [address], 07/09/2025 05:15:17 07/08/20 25 07/09/2025 RENAL FUNCT ION PANEL calcium 8.4 mg/dL 8.6-10 .3 low Not Available [address], [address], 07/09/2025 05:15:17 07/08/20 25 07/09/2025 RENAL FUNCT ION PANEL phosphate ( phosphorus) 5.9 mg/dL 2.1-4. 3 high Not Available [address], [address], 07/09/2025 05:15:17 07/08/20 25 07/09/2025 RENAL FUNCT ION PANEL albumin 3.3 g/dL 3.6-5. 1 low Not Available [address], [address], 07/09/2025 05:15:17 07/08/20 25 07/09/2025 SHARRI TIN ferritin 71 NG/mL 24-380 normal Not Available [address], [address], 07/09/2025 05:15:18 07/15/20 25 07/15/2025 BMP (MALE ) glucose 176.0 mg/dL 60.0-9 9.0 high Not Available [facility] [address] [address], [place], [address], 07/15/2025 11:49:21 07/15/20 25 07/15/2025 BMP (MALE ) BUN (blood urea nitrogen) 57.0 mg/dL 10.0-2 6.0 high Not Available [facility] [address] [address], [place], [address], 07/15/2025 11:49:21 07/15/20 25 07/15/2025 BMP (MALE ) creatinine (serum) 3.1 mg/dL 0.4-1. 5 high Not Available [facility] [address] [facility] Jeremy 1, [place], [address], 07/15/2025 11:49:21 07/15/20 25 07/15/2025 BMP (MALE ) BUN/creatini ne ratio 18.39 ratio Not Available [facility] [address] [facility], [place], [address], 07/15/2025 11:49:21 07/15/20 25 07/15/2025 BMP (MALE ) calcium 9.0 mg/dL 8.4-10 .5 Not Available [facility] [address] [facility], [place], [address], 07/15/2025 11:49:21 07/15/20 25 07/15/2025 BMP (MALE ) sodium 141.0 mmol/ L 136.0- 145.0 Not Available [facility] [address] [facility], [place], [address], 07/15/2025 11:49:21 07/15/20 25 07/15/2025 BMP (MALE ) potassium 4.7 mmol/ L 3.5-5. 1 Not Available [facility] [address] [facility], [place], [address], 07/15/2025 11:49:21 07/15/20 25 07/15/2025 BMP (MALE ) chloride 112.0 mmol/ L 98.0-1 10.0 abnormal Not Available [facility] [address] [facility] Aleksandra [facility] 1, [place], [address], 07/15/2025 11:49:21 07/15/20 25 07/15/2025 BMP (MALE ) C02 19.0 mmol/ L 22.0-3 1.0 low Not Available [facility] [address] [facility], [place], [address], 07/15/2025 11:49:21 07/31/2007/31/2025 CBC WBC 7.7 x10 4.5-10 .5 Not Available [facility] [address] [facility] 1, [place], [address], 07/31/2025 10:43:25 07/31/2007/31/2025 CBC RBC 2.53 x10 4.30-5 .90 low Not Available [facility] [address] [facility] 1, [place], [address], 07/31/2025 10:43:25 07/31/2007/31/2025 CBC HGB 7.5 g/dL 13.5-1 8.0 low Not Available [facility] [address] [facility] 1, [place], [address], 07/31/2025 10:43:25 07/31/2007/31/2025 CBC HCT 24.2 % 35.0-6 0.0 low Not Available [facility] [address] [facility], [place], [address], 07/31/2025 10:43:25 07/31/2007/31/2025 CBC MCV 95.5 fL 80.0-9 9.9 Not Available [facility] [address] [facility], [place], [address], 07/31/2025 10:43:25 07/31/2007/31/2025 CBC MCH 29.4 pg 27.0-3 2.0 Not Available [facility] [address] [facility] 1, [place], [address], 07/31/2025 10:43:25 07/31/2007/31/2025 CBC MCHC 30.8 g/dL 32.0-3 6.0 low Not Available [facility] [address] [facility], [place], [address], 07/31/2025 10:43:25 07/31/20 25 07/31/2025 CBC RDW 15.0 % 11.5-1 4.5 high Not Available [facility] [address] [facility], [place], [address], 07/31/2025 10:43:25 07/31/2007/31/2025 CBC plt 162.3 x10 150.0- 451.0 Not Available [facility] [address] [facility] 1, [place], [address], 07/31/2025 10:43:25 07/31/2007/31/2025 CBC lymphocytes % 22.8 % 20.0-5 0.0 Not Available [facility] [address] Ale[address] [facility] 1, [place], [address], 07/31/2025 10:43:25 07/31/20 25 07/31/2025 CBC granulcytes % 64.1 % 30.0-7 0.0 Not Available [facility] [address] [facility], [place], [address], 07/31/2025 10:43:25 07/31/20 25 07/31/2025 CBC monocytes % 9.2 % 2.0-16 .0 Not Available [facility] [address] [facility] 1, [place], [address], 07/31/2025 10:43:25 07/31/2007/31/2025 CBC granulcytes# 4.9 x10 Not Stephanie ilable [facility] [address] [facility] 1, [place], [address], 07/31/2025 10:43:25 07/31/20 25 07/31/2025 CBC lymphocytes # 1.8 x10 Not Available [facility] [address] [facility], [place], [address], 07/31/2025 10:43:25 07/31/20 25 07/31/2025 CBC monocytes # 0.7 x10 Not Avai [facility] [address] [facility] 1, [place], [address], 07/31/2025 10:43:25 07/31/20 25 07/31/2025 BMP (MALE ) glucose 165.0 mg/dL 60.0-9 9.0 high Not Available [facility] [address] [facility], [place], [address], 07/31/2025 11:19:52 07/31/2007/31/2025 BMP (MALE ) BUN (blood urea nitrogen) 71.0 mg/dL 10.0-2 6.0 high Not Available [facility] [address] [facility], [place], [address], 07/31/2025 11:19:52 07/31/20 25 07/31/2025 BMP (MALE ) creatinine (serum) 3.5 mg/dL 0.4-1. 5 high Not Available [facility] [address] [facility], [place], [address], 07/31/2025 11:19:52 07/31/20 25 07/31/2025 BMP (MALE ) BUN/creatini ne ratio 20.29 ratio Not Available [facility] [address] [facility] Aleksandra [facility] 1, [place], [address], 07/31/2025 11:19:52 07/31/2007/31/2025 BMP (MALE ) calcium 8.8 mg/dL 8.4-10 .5 Not Available [facility] [address] [facility], [place], [address], 07/31/2025 11:19:52 07/31/20 25 07/31/2025 BMP (MALE ) sodium 141.0 mmol/ L 136.0- 145.0 Not Available [facility] [address] [facility], [place], [address], 07/31/2025 11:19:52 07/31/20 25 07/31/2025 BMP (MALE ) potassium 4.6 mmol/ L 3.5-5. 1 Not Available [facility] [address] [facility], [place], [address], 07/31/2025 11:19:52 07/31/2007/31/2025 BMP (MALE ) chloride 112.0 mmol/ L 98.0-1 10.0 abnormal Not Available [facility] [address] [facility], [place], [address], 07/31/2025 11:19:52 07/31/2007/31/2025 BMP (MALE ) C02 17.0 mmol/ L 22.0-3 1.0 low Not Available [facility] [address] [facility], [place], [address], 07/31/2025 11:19:52 Result Notes None recorded. Problems Name Problem SNOMED Code Status Onset Date Resolution Date Notes Provider Name and Address Organization Details Recorded Time Anticoagu lant effect [id number] Aaron STODDARD, [address], [address], [facility] 5 13:04:03 Chronic ulcer of left foot Active SHILO STODDARD, [address], [address], [facility] 5 13:04:34 Tailor's bunion of left foot [id number] 9100 Active SHILO STODDARD, [address], [address], [facility] 5 13:04:03 Tobacco user [id number] Aaron STODDARD, [address], [address] [place] [address] 5, [facility] 5 13:04:03 Contusion of left shoulder [id number] 36875 Aaron STODDARD, [address], [address] [place] [address] 5, [facility] 5 13:04:03 History of aortic valve replaceme nt [id number] 0 Aaron STODDARD, [address], [address] [place] [address] 5, [facility] 5 13:04:03 Celluliti s [id number] Aaron STODDARD, [address], [address] [place] [address] 5, [facility] 5 13:04:03 Lumbar radiculop athy 769986329 Aaron STODDARD, [address], [address] [place] [address] 5, [facility] 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 5 13:04:03 History of pulmonary embolus [id number] Aaron STODDARD, [address] [address] 5, [facility] 5 14:36:21 Abdominal pain [id number] Aaron STODDARD, SEISMOLOGY TECHNICAL OFFICER[address], [address] [place] [address] 5, [facility] 5 13:04:03 Acute-on- chronic renal failure [id number] Aaron STODDARD, [address], [address] [place] [address] 5, [facility] 5 13:04:03 Thoracic back pain [id number] Aaron STODDARD, [address], [address] [place] [address] 5, [facility] 5 13:04:03 Orthostat ic hypotensi on [id number] Aaron STODDARD, [address], [address] [place] [address] 5, [facility] 5 13:04:03 Chest pain [id number] Aaron STODDARD, [address], [address] [place] [address] 5, [facility] 5 13:04:03 Low back strain [id number] Aaron STODDARD, [address], [address] [place] [address] 5, [facility] 5 13:04:03 Patient encounter status [id number] Aaron STODDARD, [address], [address] [place] [address] 5, [facility] 5 13:04:03 Internati onal normalize d ratio above reference range [id number] Aaron STODDARD, [address], [address] [place] [address], [facility] 5 13:04:03 Dehydrati on [id number] Aaron STODDARD, [address], [address], [facility] L.L[facility]uelC[facility]uel 5 13:04:03 Blood in urine [id number] Aaron STODDARD, [address], [address], [facility]uel 5 13:04:03 Diabetic foot ulcer [id number] Aaron STODDARD, [address], [address] [place] [address] 5, [facility] 5 13:04:03 Pericardi al effusion [id number] Aaron STODDARD, [address], [address] [place] [address] 5, [facility], LAnuelLAnuelCAnuel 5 13:04:03 Acquired keratoder ma [id number] Aaron STODDARD, [address], [address] [place] [address] 5, [facility]uel 5 13:04:03 Strain of muscle of chest wall [id number] Aaron STODDARD, [address], [address] [place] [address] 5, [facility]uel 5 13:04:03 History of malignant neoplasm of skin excluding melanoma [id number] Aaron STODDARD, [address], [address] [place] [address] 5, [facility]uel 5 13:04:03 Acute hyponatre nithin [id number] Aaron STODDARD, [address], [address] [place] [address] 5, [facility], LAnuelL.CAnuel 5 13:04:03 Foot pain [id number] Aaron STODDARD, [address], [address], [facility] 5 13:04:03 Acute exacerbat ion of chronic congestiv e heart failure 185282819 Active SHILO STODDARD, [address], [address], [facility] 5 13:04:03 Prehypert ension 236641048 Active SHILO STODDARD, [address], [address], [facility] 5 13:04:03 Osteomyel itis of forefoot 941514763 Aaron STODDARD, [address], [address], [facility] 5 13:04:03 Acute hypoxemic respirato ry failure 297980915 Active SHILO STODDARD, [address], [address], [facility] 5 13:04:03 Pulmonary hypertens ion [id number] Aaron STODDARD, [address], [address], [facility] 5 13:04:03 COVID-19 [id number] Aaron STODDARD, [address], [address], [facility] 5 14:36:21 Periphera l arterial disease 450250275 Aaron STODDARD, [address], [address], [facility] 5 13:04:03 Ulcer of left foot due to diabetes mellitus 290342810 Active SHILO STODDARD, [address], [address] [place] [address] 5, [facility] 5 13:04:03 Abscess of left foot 086523856477 50089 Active SHILO STODDARD, [address], [address] [place] [address] 5, [facility] 5 13:04:34 Laceratio n of right foot 014337159830 49507 Active SHILO STODDARD, [address] [address] 5, [facility] 5 13:04:34 Foot ulcer due to type 2 diabetes mellitus 032530887379 0 Active SHILO STODDARD, [address], [address] [place] [address] 5, [facility] 5 13:04:34 Fall Active SHILO STODDARD, [address], [address] [place] [address] 5, [facility] 5 13:04:34 Laceratio n of toe 285538775 Active SHILO STODDARD, [address], [address] [place] [address] 5, [facility] 5 13:04:34 Pain in left foot 568822480665 107 Active SHILO STODDARD, [address] [address] 5, [facility] 5 13:04:34 Infection of foot due to diabetes mellitus 570553475 Active SHILO STODDARD, [address] [address] 5, [facility] 5 13:04:34 Low blood pressure [id number] Aaron STODDARD, [address], [address] [place] [address] 5, [facility] 5 13:04:34 Acute respirato ry failure [id number] Aaron STODDARD, [address], [address] [place] [address] 5, [facility] 5 13:04:34 Long-term current use of anticoagu lant [id number] Aaron STODDARD, [address], [address] [place] [address] 5, [facility] 5 13:04:34 Gastroint estinal hemorrhag e [id number] Aaron STODDARD, [address], [address] [place] [address] 5, [facility] 5 13:04:34 Edema of left lower limb 271642750 Aaron STODDARD, [address], [address] [place] [address] 5, [facility] 5 13:04:34 Chronic obstructi ve pulmonary disease 74141001 Active [address], [address] [place] [address] 5, [facility] 5 14:44:25 Type 2 diabetes mellitus without complicat ion 456103154 Active 2022 Insulin Dependent Diabetes Mellitus KERRY CRUZ[address], [address] [place] [address] 5, [facility] 5 14:44:25 Diabetes mellitus 90281658 Active 2022 FELIX WATSON [facility], [facility] 13:39:55 Dyspnea 934759855 Active [address], [address] [place] [address] 5, [facility] 14:44:25 Hyperchol esterolem ia 02409199 Active [address], [address] [place] [address] 5, [facility] 14:44:25 Hypothyro idism 56470678 Active [address], [address], [facility] 14:44:25 Anemia 029859796 Active 2023 SHILO OLIVARESTES, [address], [address] [place] [address] 5, [facility] 14:36:21 Intermitt ent vomiting 807760592 Active [address], [address], [facility] 14:44:25 Chronic atrial fibrillat ion 083003782 Active [address], [address], [facility] 14:44:25 Chronic pulmonary thromboem bolism 705048479 Active [address] [address], [facility], L.L.C[facility]uel 5 14:44:25 Congestiv e heart failure 13601219 Active 2024 SHILO STODDARD, [facility] [address] [place] [address], [address], [facility], LAnuelL.CAnuel 5 14:36:21 Chronic kidney disease 952575858 Active 2024 KERRY CRUZ, [facility] [address] [place], [address], [facility], L.L[facility]uel 5 14:44:25 Pain of left shoulder joint 436369191874 [address] Active 2024 THOMAS Lopez [facility] 5 10:41:05 End-stage renal disease 99895796 Active 2024 FELIX garcia [facility], L.L.CAnuel 5 13:40:15 Osteomyel itis of foot Active 2024 FELIX garcia [facility], LAnuelLAnuelCAnuel 13:41:02 Problem Notes None recorded. Procedures Surgical History Date Name Laterality Status Provider Name and Address Organization Details Recorded Time 2024 procedure on foot completed ALBERT NESS [facility], LAnuelLAnuelCAnuel 5 12:29:01 2024 plain X-ray of chest completed EMERALD PIKE [facility], DedraLChema 5 13:15:[address] of chest completed EMERALDSIMON PIKE [facility], DedraLAnuelCAnuel 5 13:18:55 2024 US scan of chest wall completed EMERALD PIKE [facility], Karina 5 13:19:43 2024 colonoscopy completed ALBERT [facility] 5 16:37:30 2024 esophagogastroduodenoscopy completed OFELIA PETERSON [facility] 5 16:41:26 2024 plain X-ray of chest completed [facility] 5 10:22:57 2024 plain X-ray of left foot completed [facility] 5 10:26:[address] of left foot completed [facility] 5 10:29:37 2024 Joint Inj Ken[place]og- Shoulder, Hip, Knee completed Anai Valdivia MD [address] [place], [address], [facility] 5 13:50:21 2022 repair of aortic valve completed [facility] 3 11:57:41 complete repair of r otator cuff completed [facility] 5 12:00:19 cataract surgery completed [facility] 5 12:00:39 Imaging Results None recorded. Procedure Notes None recorded. Medical Equipment None Reported. Allergies Allergen ID Allergen Name Allergen Category Reaction Reaction Severity Criticality Documentation Date Start Date Code Code System Note Provider Name and Address Organization Details Recorded Time 58347 No known allergy (situatio n) Not available Not available Not available Not available 08/11/2025 [id number] SNASHISH MCDUFFIE [address] [place], [address], [place] [facility] 13:[facility]47 No known drug allergies Medications [...] Available Not Available No t Available Vitals None Recorded Social History Question Answer Notes LastModified by Organizat ion Details LastModified Time Tobacco Smoking Status Former Smoker ALBERT garcia [facility] 10/25/2023 12:00:37 When Did You [...] 100 mcg/0.5mL dose or 50 mcg/0.25mL dose completed ALBERT garcia [facility] 05/28/2023 10:19:38 COVID-19, mRNA, LNP-S, PF, 100 mcg/0.5mL dose or 50 mcg/0.25mL dose 1 completed ALBERT garcia, [facility] 05/28/2023 10:19:38 Influenza, split virus, trivalent, preservative 3 completed Not Available [facility] 10/05/2025 11:30:10 Influenza, split virus, trivalent, PF 4 completed Not Available [facility] 10/05/2025 11:30:10 Tdap 5 completed SHILO STODDARD [address], [address], [facility] 08/11/2025 13:04:45 Td(adult) unspecified formulation 3 [...] ICD10 Code Diagnosis IMO Codes Diagnosis Note [id number] Anai Valdivia MD [facility] ([facility]) [address] [place] [address] 07/08/2025 10:08:24 07/09/2025 12:33:19 Chronic kidney disease stage 4 [id number] N18.4 [id number] Adult heal th examination [id number] Z00.01 [id number] Anai Valdivia MD [facility] ([facility]) [address] [place], [place] [address], [place] [address] 07/15/2025 09:46:43 07/16/2025 15:47:39 Acute kidney injury [id number] N17.9 [id number] Anai Valdivia MD [facility] ([facility]) [address] [place] [address] 07/31/2025 09:23:28 08/03/2025 10:19:47 Anemia [id number] D64.9 Acute kidney injury 1466 9001 N17.9 [id number] Health Concerns Section Related Observation LastModified by Organization Detai ls LastModified Time None Recorded Concern Status LastModified by Organization Details LastModified Time None Recorded Payers Encounter Date Sequence Insurance Name Policy Number Policy Godinez Covered Member ID Godinez Member ID Guarantor Name 07/31/2025 1 [employer] (MEDICARE REPLACEMENT/ ADVANTAGE - PPO) [id number] Guy Wiseman [id number] Guy Wiseman
--- NOTE | 2025-10-16 09:34 | XRR_ITS ---
PROCEDURE INFORMATION: Exam: XR Chest Exam date and time: 10/16/2025 9:36 AM Age: 70 years old Clinical indication: Shortness of breath; Additional info: SOB TECHNIQUE: Imaging protocol: Radiologic exam of the chest. Views: 1 view. COMPARISON: CR XR chest 1V portable [id number] 09/08/2025 7:04 AM FINDINGS: Tubes, catheters and devices: Right-sided PICC line, right-sided dialysis type catheter are present. Lungs: Mild improved aeration of pulmonary parenchyma right mid chest. However there is increasing opacity right lower chest that may represent pleural fluid and/or consolidation. The left pulmonary parenchyma is well-aerated. Pleural spaces: No pneumothorax. Heart/Mediastinum: Prior TAVR. Bones/joints: Unremarkable. XR/XR chest 1V portable [id number] IMPRESSION: Mild improved aeration of pulmonary parenchyma right mid chest. However there is increasing opacity right lower chest that may represent pleural fluid and/or consolidation.
--- NOTE | 2025-10-16 09:35 | ECG_ITS ---
[facility] Test Date: 2025-10-16 Pat Name: Guy Wiseman Department: Room: Gender: Male Rehabilitation Technician: : 1955 Requested By: Henry Garcia Order Number: [id number] Valeria MD: Favian Cook M.D. Measurements Intervals [place] Rate: 99 P: 0 NE: 246 QRS: 4 QRSD: 92 T: 38 QT: 355 QTc: 457 Interpretive Statements TECHNICALLY POOR TRACING NORMAL SINUS RHYTHM POSSIBLE OLD ANTERIOR INFARCTION LOW QRS VOLTAGE IN EXTREMITY LEADS Compared to ECG 09/04/2025 17:28:50 First degree AV block now present Low QRS voltage now present PVC NO LONGER PRESENT Electronically Signed On 10-17-2025 16:12:02 PIT CLERK by Favian Cook M.D. [email or web address]
--- NOTE | 2025-10-16 09:43 | PC.NURSE ---
ASKED DR SMITH IF HE WANTS PATIENT ON SIMPLE MASK OR NRB DUE TO O2 SATURATION. DR SMITH STATES NO.
[2025-10-16 09:44] LABS: Hematocrit 28.1 % (37-53); Hemoglobin 8.40 g/dL (11.27-16.99); Mean Corpuscular HGB Conc 29.9 g/dL (30-55); Mean Corpuscular Hemoglobin 29.6 pg (27-33); Mean Corpuscular Volume 98.9 fl (82-101); Nucleated Red Blood Cells % 0 %; Platelet Count 80 10^3/cmm (157-399); Red Blood Count 2.84 10^6/uL (3.85-5.65); White Blood Count 11.99 10^3/uL (3.29-11.43)
--- NOTE | 2025-10-16 09:44 | W.ED.SOB ---
HPI - SOB/Dyspnea General: Chief Complaint: Shortness of Breath/Dyspnea Stated Complaint: Swelling legs General swelling Weakness Time Seen by Provider: 10/16/25 09:31 Source: patient Mode of arrival: ambulatory Limitations: no limitations History of Present Illness: HPI Narrative: 74-year-old male with end-stage renal disease was on dialysis he states that nephrology thought he was improving and stopped dialysis roughly 2 weeks ago. He states he been having increasing swelling along with worsening shortness of breath he is typically on 3 L of oxygen at home is requiring 5 L. He states he has swelling to his legs and his abdomen. States he gets extremely short of breath with any exertion. Related Data Home Medications ?Medication ?Instructions ?Recorded ?Confirmed levothyroxine 112 mcg tablet 112 mcg PO DAILY 11/27/23 10/12/25 riociguat 2.5 mg tablet (Adempas) 2.5 mg PO TID 11/27/23 10/12/25 acetaminophen 500 mg tablet 1,000 mg PO Q6H PRN Fever Or Pain 07/18/25 10/12/25 (Tylenol Extra Strength) atorvastatin 40 mg tablet 40 mg PO DAILY 07/18/25 10/12/25 macitentan 10 mg tablet (Opsumit) 10 mg PO DAILY 08/02/25 10/12/25 oxygen 09/21/25 10/12/25 benzonatate 100 mg capsule 100 mg PO TID 09/30/25 10/12/25 pantoprazole 40 mg tablet,delayed 40 mg PO DAILY 09/30/25 10/12/25 release Previous Rx's ?Medication ?Instructions ?Recorded Cam boot to left #1 ea 05/15/23 Diabetic shoes #1 ea 08/25/24 CAM walker #1 ea 04/20/25 insulin aspart U-100 100 unit/mL See Rx Instructions .Route 08/31/25 (3 mL) subcutaneous pen (Novolog .COMPLEX #15 mL FlexPen U-100 Insulin aspart) bumetanide 1 mg tablet 1 mg PO DAILY 30 days #30 tabs 09/12/25 tiotropium 2.5 mcg-olodaterol 2.5 2 puff inhalation DAILY 6 months 09/21/25 mcg/actuation mist for inhalation #4 grams (Stiolto Respimat) linezolid 600 mg tablet 600 mg PO BID #20 tabs 10/05/25 Allergies Allergy/AdvReac Type Severity Reaction Status Date / Time No Known Allergies Allergy Verified 09/30/25 11:46 Review of Systems Resp: Reports: dyspnea PFSH ED PFSH: Medical History COPD with chronic bronchitis Mediastinal lymphadenopathy Lung mass Pericardial effusion Tobacco abuse Anemia Diabetes Warfarin anticoagulation Chest pain History of pulmonary embolism Congestive heart failure History of nonmelanoma skin cancer Hypothalamic hypothyroidism Hypertension History of blood clots COPD (chronic obstructive pulmonary disease) History of pulmonary embolism Surgical History S/P TAVR (transcatheter aortic valve replacement) History of rotator cuff surgery Social History Smoking and tobacco/nicotine status: current every day tobacco/nicotine user Quit status (tobacco/nicotine): has quit using Year quit tobacco: 2024 Former quit date comment: a week ago Alcohol intake: never Substance/Drug Use: never Marital status: Life Partner Physical Exam Const: COMMON NORMALS: patient oriented x3 HENMT: COMMON NORMALS: normocephalic and atraumatic HEAD & SCALP: normocephalic and atraumatic Neck/C-Spine: COMMON NORMALS: full ROM and supple Chest: COMMONS NORMALS: normal inspection of the chest Resp: COMMON NORMALS: No retractions and No use of accessory muscles EFFORT & INSPECTION: Yes labored Cardio: COMMON NORMALS: regular rate, regular rhythm and No murmurs present (Cardio) RATE: regular rate RHYTHM: regular rhythm GI: COMMON NORMALS: Normal to inspection, nondistended, normoactive bowel sounds present, Soft to palpation, non-tender and no masses PALPATION: Yes Soft to palpation Extremity: COMMON NORMALS: full ROM NARRATIVE EXTREMITY EXAM: 2+ edeme le Neuro: COMMON NORMALS: patient oriented x3, moves all extremities and no focal motor deficits Psych: COMMON NORMALS: mental status grossly normal, Normal thought process present and cooperative THOUGHT PROCESS: Normal thought process present Skin: COMMON NORMALS: no rashes or lesions noted and no wounds GENERAL SKIN EXAM: no rashes or lesions noted Course Vital Signs: Vital signs: Vital Signs Temperature 98.2 F 10/16/25 09:36 Pulse Rate 105 H 10/16/25 09:42 Respiratory Rate 23 H 10/16/25 09:42 Blood Pressure 125/63 10/16/25 09:42 Pulse Oximetry 86 L 10/16/25 09:42 Oxygen Delivery Me thod Nasal Cannula 10/16/25 09:42 Oxygen Flow Rate 3 10/16/25 09:42 MDM - SOB/Dyspnea Medical Decision Making 70-year-old male presents here with increasing edema fluid overload and dyspnea. Patient did recently stop dialysis 2 weeks ago as speech and language specialist thought his kidney function improved. Patient here does have worsening kidney function his creatinine here was 3.6 with acute kidney injury on chronic kidney disease. His BNP is elevated as well. X-ray shows right sided consolidation possible pneumonia did give him IV antibiotics. I spoke to the hospitalist will admit this time as he likely needs dialysis. Medical Records I reviewed the patient's medical records. Lab Data I reviewed the patient's lab results. 10/16/25 09:38 10/16/25 09:38 Labs/Radiology: Radiology Impressions Chest X-Ray 10/16/25 09:34 IMPRESSION: Mild improved aeration of pulmonary parenchyma right mid chest. However there is increasing opacity right lower chest that may represent pleural fluid and/or consolidation. Laboratory Results WBC 11.99 10^3/uL (3.29-11.43) H 10/16/25 09:38 RBC 2.84 10^6/uL (3.85-5.65) L 10/16/25 09:38 Hgb 8.40 g/dL (11.27-16.99) L 10/16/25 09:38 Hct 28.1 % (37-53) L 10/16/25 09:38 MCV 98.9 fl (82-101) 10/16/25 09:38 MCH 29.6 pg (27-33) 10/16/25 09:38 MCHC 29.9 g/dL (30-55) L 10/16/25 09:38 RDW 16.4 % (12.1-15.1) H 10/16/25 09:38 Plt Count 80 10^3/cmm (157-399) L 10/16/25 09:38 MPV 10.5 fL (7.4-10.4) H 10/16/25 09:38 Neut % (Auto) 68.5 % 10/16/25 09:38 Lymph % (Auto) 26.7 % 10/16/25 09:38 [place] % (Auto) 2.3 % 10/16/25 09:38 Eos % (Auto) 1.6 % 10/16/25 09:38 Baso % (Auto) 0.3 % 10/16/25 09:38 Neut # (Auto) 8.21 10^3/uL (1.8-7.7) H 10/16/25 09:38 Lymph # (Auto) 3.2 10^3/uL (0.8-4.8) 10/16/25 09:38 [place] # (Auto) 0.3 10^3/uL (0.2-0.9) 10/16/25 09:38 Eos # (Auto) 0.2 10^3/uL (0.0-0.8) 10/16/25 09:38 Baso # (Auto) 0.0 10^3/uL (0.0-0.1) 10/16/25 09:38 Nucleated RBC % (auto) 0 % 10/16/25 09:38 Nucleated RBCs # 0.0 /100WBC 10/16/25 09:38 PT 16.90 SECONDS (12.1-14.9) H 10/16/25 09:38 INR 1.28 (0.8-1.2) H 10/16/25 09:38 Sodium 136 mmol/L (136-145) 10/16/25 09:38 Potassium 4.8 mmol/L (3.5-5.1) 10/16/25 09:38 Chloride 102 mmol/L (98-107) 10/16/25 09:38 Carbon Dioxide 20 mmol/L (22-29) L 10/16/25 09:38 Anion Gap 18.8 (5-19) 10/16/25 09:38 BUN 58 mg/dL (8-23) H 10/16/25 09:38 Creatinine 3.6 mg/dL (0.7-1.2) H 10/16/25 09:38 GFR Calculation Not Reportable 10/16/25 09:38 Glucose 188 mg/dL (65-115) H 10/16/25 09:38 Calculated Osmolality 303 mOsm/kg (285-295) H 10/16/25 09:38 Calcium 8.4 mg/dL (8.5-10.5) L 10/16/25 09:38 Total Bilirubin 0.4 mg/dL (0.15-1.2) 10/16/25 09:38 AST 24 U/L (0-40) 10/16/25 09:38 ALT 9 U/L (0-41) 10/16/25 09:38 Alkaline Phosphatase 265 U/L (40-130) H 10/16/25 09:38 NT-Pro-B Natriuret Pep 81952 pg/mL (0-125) H 10/16/25 09:38 Total Protein 6.2 g/dL (6.6-8.7) L 10/16/25 09:38 Albumin 3.3 g/dL (3.5-5.2) L 10/16/25 09:38 Globulin 2.9 g/dL (1.3-4.6) 10/16/25 09:38 All radiology interpretation(s) finalized by discharge EKG Data EKG 1: I personally reviewed and interpreted this EKG as follows: EKG Interpretation Date: 10/16/25 EKG interpretation time: 10:16 Interpretation: nsr hr [address] elevation qrs 92 qtc 412 Discharge Plan Discharge Condition: Stable Coding Level of Care Code ED Hotel [employer] for Chg Alyssia
--- NOTE | 2025-10-16 09:59 | PC.NURSE ---
WAITING ON 2ND SET OF CULTURES TO START ABX.
[2025-10-16 10:03] LABS: INR 1.28 (0.8-1.2); Prothrombin Time 16.90 SECONDS (12.1-14.9)
[2025-10-16 10:17] LABS: Alanine Aminotransferase 9 U/L (0-41); Albumin Level 3.3 g/dL (3.5-5.2); Alkaline Phosphatase 265 U/L (40-130); Anion Gap 18.8 (5-19); Aspartate Amino Transferase 24 U/L (0-40); Blood Urea Nitrogen 58 mg/dL (8-23); Calcium 8.4 mg/dL (8.5-10.5); Carbon Dioxide 20 mmol/L (22-29); Chloride 102 mmol/L (98-107); Globulin 2.9 g/dL (1.3-4.6); Glucose 188 mg/dL (65-115); NT Pro B Type Natriuretic Pept 15351 pg/mL (0-125); Osmolality Calculated 303 mOsm/kg (285-295); Potassium 4.8 mmol/L (3.5-5.1); Sodium 136 mmol/L (136-145); Total Protein 6.2 g/dL (6.6-8.7)
[2025-10-16] MEDS: cefTRIAXone 1,000 mg SDV 1000 MG IVP (10:33)
[2025-10-16 11:26] LABS: Estmated Average Glucose 140; Hemoglobin A1C 6.5 % (4.0-6.0)
[2025-10-16 12:21] LABS: Cholesterol 90 mg/dL (0-200); HDL Cholesterol 53 mg/dL (60-100); Triglycerides 85 mg/dL (0-150)
[2025-10-16] MEDS: pantoprazole 40 mg SDV IVP ×2 (12:32→23:36)
[2025-10-16] MEDS: RIOCIGUAT 2.5 MG 2.5 EACH PO ×2 (12:35→21:41)
[2025-10-16 12:44] LABS: Magnesium 1.6 mg/dL (1.7-2.3)
[2025-10-16] MEDS: albumin 25 G/100 ML BAG 60 G IV ×2 (12:45→21:27)
--- NOTE | 2025-10-16 12:48 | PM.HP ---
Documented by User: Chloe Sanchez NP 10/16/25 19:38 Providers/Chief Complaint Admitting Physician: Freeman Rodriguez Primary Care Provider: Patrick Nick MD Chief Complaint: Swelling legs General swelling Weakness History of Present Illness Guy Wiseman is a 70 year old male w/ pmhx of end-stage renal disease (previously was on dialysis) hypothyroidism, CHF, hypertension, DM 2, COPD, and hx of pulmonary embolism, s/p TVAR on Eliquis. Came into the emergency department today for c/o shortness of breath w/ increased home oxygen use. Patient will be admitted to hospitalist services with nephrology consult for further medical management. Patient resting in bed on 5 L high flow nasal cannula oxygen, noted to be sitting at bedside during my evaluation. Patient states he had SOB x5 days with increasing oxygen requirements from his baseline 3 L NC. He reports associated s/s of generalized swelling(3+ edema to BLE), stiffness in legs, productive cough (clear phlegm), increased weakness, N/V, decreased urine output over last 3 days and 15lb wt gain since last dialysis session- about 2 weeks ago. Patient reports Eliquis was restarted at a lower dose of 2.5mg PO BID less than 2 weeks ago outpatient w/ PCP. He reports use of Zofran to alleviate nausea before meals. Patient denies fevers, nasal congestion, sore throat, headache, palpitations, chest pain, bright red/tarry stools, and diarrhea. -Of note patient was recently hospitalized here at [facility] discharged 09/15/25. Patient tx for NSTEMI, IVC filter placement, ESRD w/ dialysis, acute anemia w/ GI bleed, diabetic foot infection at that time. While in ED a CBC, CMP, PT, INR, A1c, BNP were collected, reviewed, and resulted as follows WBC 11.99, Neut 8.21, Hgb 8.40, HCT 28.1, Plt 80, PT 16.90, INR 1.28. NA 136, K 4.8, Mag 1.6, Cosmetic Chemist 3.6, BUN 58, Gabriella Phos 265, and a BNP 15,351. Lipid panel WNL. Blood cultures, pending. Patient received the following medications in ED: Azithromycin 500 mg IV, ceftriaxone 1000 mg IVP. Review of Systems Const: Reports: fatigue; Denies: fever(s) or chills ENMT: Denies: throat pain or nasal congestion Card: Reports: dyspnea on exertion and leg pain with exertion; Denies: chest pain, palpitations or syncope Resp: Reports: dyspnea and productive cough GI: Reports: nausea and vomiting; Denies: abdominal pain, diarrhea or constipation : Reports: urinary frequency and oliguria Musc: Reports: extremity swelling and muscle weakness Neuro: Reports: weakness in extremities; Denies: headache(s) or numbness in extremities Medications/Allergies Home Medications ?Medication ?Instructions ?Recorded ?Confirmed ?Last Taken ?Type Cam boot to left #1 ea 05/15/23 10/16/25 08/19/25 Rx levothyroxine 112 mcg tablet 112 mcg PO DAILY 11/27/23 10/16/25 10/16/25 07:00 History riociguat 2.5 mg tablet (Adempas) 2.5 mg PO TID 11/27/23 10/16/25 10/16/25 08:00 History Diabetic shoes #1 ea 08/25/24 10/16/25 08/19/25 Rx CAM walker #1 ea 04/20/25 10/16/25 08/19/25 Rx acetaminophen 500 mg tablet 1,000 mg PO Q6H PRN Fever Or Pain 07/18/25 10/16/25 09/29/25 History (Tylenol Extra Strength) atorvastatin 40 mg tablet 40 mg PO DAILY 07/18/25 10/16/25 10/16/25 08:00 History macitentan 10 mg tablet (Opsumit) 10 mg PO DAILY 08/02/25 10/16/25 10/16/25 08:00 History insulin aspart U-100 100 unit/mL See Rx Instructions .Route 08/31/25 10/16/25 10/16/25 07:00 Rx (3 mL) subcutaneous pen (Novolog .COMPLEX #15 mL FlexPen U-100 Insulin aspart) oxygen 09/21/25 10/16/25 Unknown History tiotropium 2.5 mcg-olodaterol 2.5 2 puff inhalation DAILY 6 months 09/21/25 10/16/25 09/30/25 Rx mcg/actuation mist for inhalation #4 grams (Stiolto Respimat) benzonatate 100 mg capsule 100 mg PO TID 09/30/25 10/16/25 10/16/25 08:00 History pantoprazole 40 mg tablet,delayed 40 mg PO DAILY 09/30/25 10/16/25 10/15/25 08:00 History release apixaban 2.5 mg tablet (Eliquis) 2.5 mg PO BID 10/16/25 10/16/25 10/16/25 08:00 History azelastine 137 mcg (0.1 %) nasal 1 spray intranasal BID 10/16/25 10/16/25 10/16/25 08:00 History spray bumetanide 1 mg tablet 2 mg PO BID 10/16/25 10/16/25 10/16/25 08:00 History fluticasone propionate 50 50 mcg intranasal BID 10/16/25 10/16/25 10/16/25 08:00 History mcg/actuation nasal spray,suspension midodrine 5 mg tablet 5 mg PO TID 10/16/25 10/16/25 10/16/25 08:00 History ondansetron HCl 4 mg tablet 4 mg PO Q4H PRN Nausea And Vomiting 10/16/25 10/16/25 Unknown History Allergies Allergy/AdvReac Type Severity Reaction Status Date / Time No Known Allergies Allergy Verified 09/30/25 11:46 PFSH Acute PFSH: Medical History COPD with chronic bronchitis Mediastinal lymphadenopathy Lung mass Pericardial effusion Tobacco abuse Anemia Diabetes Warfarin anticoagulation Chest pain History of pulmonary embolism Congestive heart failure History of nonmelanoma skin cancer Hypothalamic hypothyroidism Hypertension History of blood clots COPD (chronic obstructive pulmonary disease) History of pulmonary embolism Surgical History S/P TAVR (transcatheter aortic valve replacement) History of rotator cuff surgery Social History Smoking and tobacco/nicotine status: current every day tobacco/nicotine user Quit status (tobacco/nicotine): has quit using Year quit tobacco: 2024 Former quit date comment: a week ago Alcohol intake: never Substance/Drug Use: never Marital status: Life Partner Vitals/I&O/Wt Last Vital Signs Temp 97.7 F 10/16/25 12:17 Pulse 97 10/16/25 12:17 Resp 18 10/16/25 12:17 BP 93/49 10/16/25 12:17 Pulse Ox 84 L 10/16/25 12:17 O2 Del Method Nasal Cannula 10/16/25 12:17 O2 Flow Rate 3 10/16/25 11:15 10/15/25 10/16/25 10/16/25 22:59 06:59 14:59 Intake Total 250 / 250 Balance 250 / 250 Weight last 48 hrs Weight 81.647 kg Weight 81.647 kg Physical Exam Narrative: General: A&Ox4, hard of hearing, lying comfortably w/o any distress HEENT: Normo-cephalic, atraumatic, grossly unremarkable exam Cardio: NSR, normal S1-S2 w/o any murmurs, rubs, or gallops Respiratory: Wheezes to bilateral lower bases on auscultation, on 5L HF NC GI: Abd soft, non-tender, non-distended, norm-oactive bowel sounds present Neuro: moves all extremities, normal speech Behavior: Appropriate and cooperative Extremities: 3+ edema to bilateral extremity, chronic ulcer of left foot dressing s/p incision and partial 5th metatarsal head removal on 10/01/25 w/ Dr. Mendoza - dressing currently C/D/I Data 10/16/25 09:38 10/16/25 09:38 Other Labs: 10/16 CXR: Reviewed and reported: NSR, no ST elevation, QRS 92, QTc 412, HR 99 10/16 EKG: Reviewed and demonstrated: Mild improved aeration of pulmonary parenchyma right mid chest. However there is increasing opacity right lower chest that may represent pleural fluid and/or consolidation Micro: Microbiology 10/16/25 10:31 Blood Culture - Preliminary Blood SPECIMEN COLLECTED 10/16/25 09:57 Blood Culture - Preliminary Blood SPECIMEN COLLECTED A&P Assessment and plan 1. Healthcare-associated pneumonia: 2. ESRD needing dialysis: 3. Hypotension: 4. Acute respiratory failure with hypoxia: 5. Thrombocytopenia: 6. Hypomagnesemia: 7. COPD without exacerbation: 8. DM2 (diabetes mellitus, type 2): Plan: R/O Healthcare Associated Pneumonia Acute respiratory failure with hypoxia COPD w/o exacerbation Lung mass w/ Mediastinal Adenopathy ? Hx of pulmonary emboli 2nd and 3rd branches of lower lobes, lower extremity DVT: Pt S/P TAVR, On home medication Eliquis- was recently restarted at lower dose 2.5mg BID 2wk ago by PCP. Plt 80, Hold Eliquis ? Hx of Lung mass w/ Mediastinal Adenopathy(right upper lobe 6 cm in size), seen by Dr. Lezama during previous admission. Patient to follow up outpt w/ Dr. Alfredo at [facility] for recommended bronchoscopy.- 09/21/25 ? 10/16 CXR: Mild improved aeration of pulmonary parenchyma right mid chest. However there is increasing opacity right lower chest that may represent pleural fluid and/or consolidation ? Patient satting 84-88% on 5L nasal cannula ? Switching to face mask, HHF oxygenation ? Patient hospitalized w/i the last 90 days, discharge date 09/12/28 ? MRSA swab ordered, pending. ? Procalcitonin ordered, pending. ? Bacterial, Legionella urine ordered. ? Sputum cultures ordered, pending. ? Respiratory viral panel ordered, pending. ? Pulse oximetry, supplemental o2 to keep saturations > 92% ? RT on board ? IV Abx coverage: Cefepime 1gm IV q24h, Zyvox 600mg IV q12h ? Continue home inhalers and benzonatate ? PT/OT prior to discharge ESRD needing dialysis ? Elevated Creatinine 3.6 from baseline ? Baseline Cosmetic Chemist usually 2.7, per at bedside ? Nephrology consulted, recommendations appreciated. ? Dialysis scheduled 10/16 in setting of increased oxygen requirements ? Urine studies ordered, pending. ? On home bumex for fluid overload management - patient still making urine ? 10/16: Initial BNP 42997- trend ? Avoid nephrotoxic agents ? Strict I&Os, dly wts ? Low-sodium diet ? Fluid restriction 1L ? CMP dly Hypotension ? BP soft at 93/49 ? Increase home medication midodrine 5mg to 10mg ? IV Albumin 12.5gm q8hr ? V/S q4h Thrombocytopenia ? Plt 80, recently restarted on Eliquis 2wks ago per PCP ? Hold home Eliquis ? DVT PE prophylaxis with SCD for now ? Occult stool ordered, pending- recent GI bleed 09/15/25 ? IVP Protonix 40 mg BID ? Monitor CBC Hypomagnesemia ? 10/16: Mag 1.6 ? Replete magnesium 2mg IV ? Monitor CMP dly Hypothyroidism ? TSH, ordered, pending. ? Continue home levothyroxine 112 mcg PO Hyperlipidemia ?Continue home atorvastatin 40mg p.o. dly DM2 ? 10/16: A1c - 6.5 ? On home insulin - hold ? Blood glucose monitoring, ACHS ? Low regimen sliding scale ? Hypoglycemia protocol Pulmonary HTN ? Continue home medication Adempas and opsumit ? Follows outpatient CODE STATUS: Full code GI prophylaxis: Protonix 40 mg IVP BID VTE prophylaxis: SCDs, home medication Eliquis on hold- Plt 80 PDMP PDMP Reviewed: Not Reviewed Coding Level of Care Code Acute Code for Chg Fwd Diagnoses Healthcare-associated pneumonia J18.9 ESRD needing dialysis N18.6; Z99.2 Hypotension I95.9 Acute respiratory failure with hypoxia J96.01 Thrombocytopenia D69.6 Hypomagnesemia E83.42 COPD without exacerbation J44.9 DM2 (diabetes mellitus, type 2) E11.9 Documented by User: Kelly Mendoza MECHANICAL MAINTENANCE INSTRUCTOR, SHOE SALESPERSON 10/16/25 20:21 Providers/Chief Complaint Chief Complaint: Swelling legs General swelling Weakness Medications/Allergies Home Medications ?Medication ?Instructions ?Recorded ?Confirmed ?Last Taken ?Type Cam boot to left #1 ea 05/15/23 10/16/25 08/19/25 Rx levothyroxine 112 mcg tablet 112 mcg PO DAILY 11/27/23 10/16/25 10/16/25 07:00 History riociguat 2.5 mg tablet (Adempas) 2.5 mg PO TID 11/27/23 10/16/25 10/16/25 08:00 History Diabetic shoes #1 ea 08/25/24 10/16/25 08/19/25 Rx CAM walker #1 ea 04/20/25 10/16/25 08/19/25 Rx acetaminophen 500 mg tablet 1,000 mg PO Q6H PRN Fever Or Pain 0810/16/25 09/29/25 History (Tylenol Extra Strength) atorvastatin 40 mg tablet 40 mg PO DAILY 07/18/25 10/16/25 10/16/25 08:00 History macitentan 10 mg tablet (Opsumit) 10 mg PO DAILY 08/02/25 10/16/25 10/16/25 08:00 History insulin aspart U-100 100 unit/mL See Rx Instructions .Route 08/31/25 10/16/25 10/16/25 07:00 Rx (3 mL) subcutaneous pen (Novolog .COMPLEX #15 mL FlexPen U-100 Insulin aspart) oxygen 09/21/25 10/16/25 Unknown History tiotropium 2.5 mcg-olodaterol 2.5 2 puff inhalation DAILY 6 months 09/21/25 10/16/25 09/30/25 Rx mcg/actuation mist for inhalation #4 grams (Stiolto Respimat) benzonatate 100 mg capsule 100 mg PO TID 09/30/25 10/16/25 10/16/25 08:00 History pantoprazole 40 mg tablet,delayed 40 mg PO DAILY 09/30/25 10/16/25 10/15/25 08:00 History release apixaban 2.5 mg tablet (Eliquis) 2.5 mg PO BID 10/16/25 10/16/25 10/16/25 08:00 History azelastine 137 mcg (0.1 %) nasal 1 spray intranasal BID 10/16/25 10/16/25 10/16/25 08:00 History spray bumetanide 1 mg tablet 2 mg PO BID 10/16/25 10/16/25 10/16/25 08:00 History fluticasone propionate 50 50 mcg intranasal BID 10/16/25 10/16/25 10/16/25 08:00 History mcg/actuation nasal spray,suspension midodrine 5 mg tablet 5 mg PO TID 10/16/25 10/16/25 10/16/25 08:00 History ondansetron HCl 4 mg tablet 4 mg PO Q4H PRN Nausea And Vomiting 10/16/25 10/16/25 Unknown History Allergies Allergy/AdvReac Type Severity Reaction Status Date / Time No Known Allergies Allergy Verified 09/30/25 11:46 PFSH Acute PFSH: Medical History COPD with chronic bronchitis Mediastinal lymphadenopathy Lung mass Pericardial effusion Tobacco abuse Anemia Diabetes Warfarin anticoagulation Chest pain History of pulmonary embolism Congestive heart failure History of nonmelanoma skin cancer Hypothalamic hypothyroidism Hypertension History of blood clots COPD (chronic obstructive pulmonary disease) History of pulmonary embolism Surgical History S/P TAVR (transcatheter aortic valve replacement) History of rotator cuff surgery Social History Smoking and tobacco/nicotine status: current every day tobacco/nicotine user Quit status (tobacco/nicotine): has quit using Year quit tobacco: 2024 Former quit date comment: a week ago Alcohol intake: never Substance/Drug Use: never Marital status: Life Partner Data 10/16/25 09:38 10/16/25 09:38 A&P Assessment and plan 1. Healthcare-associated pneumonia: 2. ESRD needing dialysis: 3. Hypotension: 4. Acute respiratory failure with hypoxia: 5. Thrombocytopenia: 6. Hypomagnesemia: 7. COPD without exacerbation: 8. DM2 (diabetes mellitus, type 2): Plan: R/O Healthcare Associated Pneumonia Acute respiratory failure with hypoxia COPD w/exacerbation Lung mass w/ Mediastinal Adenopathy ? Hx of pulmonary emboli 2nd and 3rd branches of lower lobes, lower extremity DVT: Pt S/P TAVR, On home medication Eliquis- was recently restarted at lower dose 2.5mg BID 2wk ago by PCP. Plt 80, Hold Eliquis ? Hx of Lung mass w/ Mediastinal Adenopathy(right upper lobe 6 cm in size), seen by Dr. Lezama during previous admission. Patient to follow up outpt w/ Dr. Alfredo at [facility] for recommended bronchoscopy.- 09/21/25 ? 10/16 CXR: Mild improved aeration of pulmonary parenchyma right mid chest. However there is increasing opacity right lower chest that may represent pleural fluid and/or consolidation ? Patient satting 84-88% on 5L nasal cannula ? Switching to face mask, HHF oxygenation ? Patient hospitalized w/i the last 90 days, discharge date 09/12/28 ? MRSA swab ordered, pending. ? Procalcitonin ordered, pending. ? Bacterial, Legionella urine ordered. ? Sputum cultures ordered, pending. ? Respiratory viral panel ordered, pending. ? Pulse oximetry, supplemental o2 to keep saturations > 92% ? RT on board ? IV Abx coverage: Cefepime 1gm IV q24h, Zyvox 600mg IV q12h ? Continue home inhalers and benzonatate ? PT/OT prior to discharge ESRD needing dialysis ? Elevated Creatinine 3.6 from baseline ? Baseline Cosmetic Chemist usually 2.7, per at bedside ? Nephrology consulted, recommendations appreciated. ? Dialysis scheduled 10/16 in setting of increased oxygen requirements ? Urine studies ordered, pending. ? On home bumex for fluid overload management - patient still making urine ? 10/16: Initial BNP 07011- trend ? Avoid nephrotoxic agents ? Strict I&Os, dly wts ? Low-sodium diet ? Fluid restriction 1L ? CMP dly Hypotension ? BP soft at 93/49 ? Increase home medication midodrine 5mg to 10mg ? IV Albumin 12.5gm q8hr ? V/S q4h Thrombocytopenia ? Plt 80, recently restarted on Eliquis 2wks ago per PCP ? Hold home Eliquis ? DVT PE prophylaxis with SCD for now ? Occult stool ordered, pending- recent GI bleed 09/15/25 ? IVP Protonix 40 mg BID ? Monitor CBC Hypomagnesemia ? 10/16: Mag 1.6 ? Replete magnesium 2mg IV ? Monitor CMP dly Hypothyroidism ? TSH, ordered, pending. ? Continue home levothyroxine 112 mcg PO Hyperlipidemia ?Continue home atorvastatin 40mg p.o. dly DM2 ? 10/16: A1c - 6.5 ? On home insulin - hold ? Blood glucose monitoring, ACHS ? Low regimen sliding scale ? Hypoglycemia protocol Pulmonary HTN ? Continue home medication Adempas and opsumit ? Follows outpatient CODE STATUS: Full code GI prophylaxis: Protonix 40 mg IVP BID VTE prophylaxis: SCDs, home medication Eliquis on hold- Plt 80 PDMP PDMP Reviewed: Not Reviewed Attestations Medical Necessity Statement*: Initial hospitalization for at least two midnights secondary to ESRD needing dialysis with elevated Creatinine 3.6 from baseline 1.8 and hypoxia requiring increased oxygen. Coding Level of Care Code Acute Code for Chg Fwd Diagnoses Healthcare-associated pneumonia J18.9 ESRD needing dialysis N18.6; Z99.2 Hypotension I95.9 Acute respiratory failure with hypoxia J96.01 Thrombocytopenia D69.6 Hypomagnesemia E83.42 COPD without exacerbation J44.9 DM2 (diabetes mellitus, type 2) E11.9
[2025-10-16] MEDS: magnesium sulfate premix 2 GM/50 ML PIGGYBACK IV (13:17)
--- NOTE | 2025-10-16 14:46 | PM.CONSULT ---
Providers/Reason For Consult Consulting Physician/Specialty*: kommana /Nephrology Reason for Consult*: ESRD Attending Physician: Kelly Mendoza, LALY, CHIEF PRIVACY OFFICER Primary Care Provider: Patrick Nick MD History of Present Illness History of Present Illness Guy Wiseman is a 70 year old male patient is a 70-year-old male with past medical history of hypothyroidism, CHF hypertension, diabetes, COPD history of PE and history of TAVR, end-stage renal disease was on dialysis until 2 weeks ago. HD was discontinued about 2 weeks ago and labs were being monitored as there was some renal improvement. Patient started to develop progressively worsening shortness of breath and lower extremity edema over the. 1 week patient was sent to the emergency department for further evaluation. Review of Systems Narrative: negative Medications/Allergies Home Medications ?Medication ?Instructions ?Recorded ?Confirmed ?Last Taken ?Type Cam boot to left #1 ea 05/15/23 10/16/25 08/19/25 Rx levothyroxine 112 mcg tablet 112 mcg PO DAILY 11/27/23 10/16/25 10/16/25 07:00 History riociguat 2.5 mg tablet (Adempas) 2.5 mg PO TID 11/27/23 10/16/25 10/16/25 08:00 History Diabetic shoes #1 ea 08/25/24 10/16/25 08/19/25 Rx CAM walker #1 ea 04/20/25 10/16/25 08/19/25 Rx acetaminophen 500 mg tablet 1,000 mg PO Q6H PRN Fever Or Pain 07/18/25 10/16/25 09/29/25 History (Tylenol Extra Strength) atorvastatin 40 mg tablet 40 mg PO DAILY 07/18/25 10/16/25 10/16/25 08:00 History macitentan 10 mg tablet (Opsumit) 10 mg PO DAILY 08/02/25 10/16/25 10/16/25 08:00 History insulin aspart U-100 100 unit/mL See Rx Instructions .Route 08/31/25 10/16/25 10/16/25 07:00 Rx (3 mL) subcutaneous pen (Novolog .COMPLEX #15 mL FlexPen U-100 Insulin aspart) oxygen 09/21/25 10/16/25 Unknown History tiotropium 2.5 mcg-olodaterol 2.5 2 puff inhalation DAILY 6 months 09/21/25 10/16/25 09/30/25 Rx mcg/actuation mist for inhalation #4 grams (Stiolto Respimat) benzonatate 100 mg capsule 100 mg PO TID 09/30/25 10/16/25 10/16/25 08:00 History pantoprazole 40 mg tablet,delayed 40 mg PO DAILY 09/30/25 10/16/25 10/15/25 08:00 History release apixaban 2.5 mg tablet (Eliquis) 2.5 mg PO BID 10/16/25 10/16/25 10/16/25 08:00 History azelastine 137 mcg (0.1 %) nasal 1 spray intranasal BID 10/16/25 10/16/25 10/16/25 08:00 History spray bumetanide 1 mg tablet 2 mg PO BID 10/16/25 10/16/25 10/16/25 08:00 History fluticasone propionate 50 50 mcg intranasal BID 10/16/25 10/16/25 10/16/25 08:00 History mcg/actuation nasal spray,suspension midodrine 5 mg tablet 5 mg PO TID 10/16/25 10/16/25 10/16/25 08:00 History ondansetron HCl 4 mg tablet 4 mg PO Q4H PRN Nausea And Vomiting 10/16/25 10/16/25 Unknown History Allergies Allergy/AdvReac Type Severity Reaction Status Date / Time No Known Allergies Allergy Verified 09/30/25 11:46 Current Medications Generic Name Dose Route Start Last Admin Trade Name Freq PRN Reason Stop Dose Admin Benzonatate 100 mg 10/16/25 13:00 10/16/25 12:32 Benzonatate 100 Mg Capsule PO 100 mg TID CHUY Administration Non-Formulary Medication 2.5 mg 10/16/25 13:00 10/16/25 12:35 Riociguat [Adempas] PO 2.5 mg TID CHUY Administration Pantoprazole Sodium 40 mg 10/16/25 11:00 10/16/25 12:32 Pantoprazole 40 Mg Sdv IVP 40 mg Q12H CHUY Administration PFSH Acute PFSH: Medical History COPD with chronic bronchitis Mediastinal lymphadenopathy Lung mass Pericardial effusion Tobacco abuse Anemia Diabetes Warfarin anticoagulation Chest pain History of pulmonary embolism Congestive heart failure History of nonmelanoma skin cancer Hypothalamic hypothyroidism Hypertension History of blood clots COPD (chronic obstructive pulmonary disease) History of pulmonary embolism Surgical History S/P TAVR (transcatheter aortic valve replacement) History of rotator cuff surgery Social History Smoking and tobacco/nicotine status: current every day tobacco/nicotine user Quit status (tobacco/nicotine): has quit using Year quit tobacco: 2024 Former quit date comment: a week ago Alcohol intake: never Substance/Drug Use: never Marital status: Life Partner Vitals/I&O/Wt Last Vital Signs Temp 97.7 F 10/16/25 12:17 Pulse 97 10/16/25 12:17 Resp 18 10/16/25 12:17 BP 93/49 10/16/25 12:17 Pulse Ox 84 L 10/16/25 12:17 O2 Del Method Nasal Cannula 10/16/25 12:17 O2 Flow Rate 3 10/16/25 11:15 10/15/25 10/16/25 10/16/25 22:59 06:59 14:59 Intake Total 250 / 250 Balance 250 / 250 Weight last 48 hrs Weight 81.647 kg Weight 81.647 kg Physical Exam Narrative: And is awake and alert, on 5 L oxy mask PERRLA S1-S2 regular rate and rhythm Lungs with bilateral crackles Abdomen soft nontender Extremities 3+ lower extremity edema Skin no rash Data 10/16/25 09:38 10/16/25 09:38 Micro: Microbiology 10/16/25 10:31 Blood Culture - Preliminary Blood SPECIMEN COLLECTED 10/16/25 09:57 Blood Culture - Preliminary Blood SPECIMEN COLLECTED A&P Assessment and plan 1. ESRD needing dialysis: Plan: 1. End-stage renal disease: HD was discontinued 2 weeks ago with possible renal recovery but patient now developed volume overload . Will restart hemodialysis while in the hospital and likely will require 2 times a week dialysis in future instead of 3 times per week. Will discuss with patient's cuff knitter 2. Acute respiratory failure with hypoxia, HD as above and ultrafiltration with HD 3. Acute on chronic respiratory failure: Multifactorial 4. Anemia: Will order JENNY 5. History of pulmonary emboli 6. Hypotension, on midodrine Patient evaluated using audiovisual cart. Time spent 40 minutes PDMP PDMP Reviewed: Not Reviewed Coding Level of Care Code Acute Code for Chg Fwd Diagnoses ESRD needing dialysis N18.6; Z99.2
[2025-10-16 16:08] LABS: Procalcitonin 0.36 ng/mL (0-0.5)
[2025-10-16 16:49] LABS: Thyroid Stimulating Hormone 2.53 uIU/mL (0.27-4.20)
[2025-10-16] MEDS: cefepime 1,000 mg SDV 1000 MG IVP (17:25)
[2025-10-16] MEDS: linezolid premix 600 MG/300 ML PREMIX 300 MG IV (17:26)
[2025-10-16 19:41] LABS: MRSA PCR OZH (swab) NOT DETECTED (Negative)
[2025-10-16 20:28] LABS: Coronavirus 229E,HKU1,NL63,OC4 Not Detected (NOT DETECT); Parainfluenza Virus Type 1 Not Detected (NOT DETECT); Parainfluenza Virus Type 2 Not Detected (NOT DETECT); Parainfluenza Virus Type 3 Not Detected (NOT DETECT); Parainfluenza Virus Type 4 Not Detected (NOT DETECT); SARS-COV-2 Not Detected (NOT DETECT)
[2025-10-16 23:00] LABS: Hepatitis B Surface Antigen Non-Reactive (Nonreactive)
--- NOTE | 2025-10-16 23:06 | PC.HD ---
Pt's dialysis cath has cuff exposed appx 2.3cm outside of skin. Photo sent to Dr Regalado and TOOL LATHE OPERATOR josh in report.
[2025-10-17] VITALS (54 sets, daily range): BP systolic 88–140; BP diastolic 29–86; PULSE 85–104; RESP 1–27; TEMP 36.6–37.5; O2SAT 85–97
[2025-10-17 04:06] LABS: Hematocrit 22.9 % (37-53); Hemoglobin 7.10 g/dL (11.27-16.99); Mean Corpuscular HGB Conc 31.0 g/dL (30-55); Mean Corpuscular Hemoglobin 30.0 pg (27-33); Mean Corpuscular Volume 96.6 fl (82-101); Nucleated Red Blood Cells % 0 %; Platelet Count 56 10^3/cmm (157-399); Red Blood Count 2.37 10^6/uL (3.85-5.65); White Blood Count 9.04 10^3/uL (3.29-11.43)
[2025-10-17] MEDS: albumin 25 G/100 ML BAG 60 G IV (04:11)
[2025-10-17] MEDS: linezolid premix 600 MG/300 ML PREMIX 300 MG IV ×2 (04:12→18:11)
[2025-10-17] MEDS: fluticasone nasal spray 16gm Btl 1 SPRAY INTRANASAL ×2 (04:17→18:09)
[2025-10-17] MEDS: RIOCIGUAT 2.5 MG 2.5 EACH PO ×3 (04:19→20:46)
[2025-10-17] MEDS: saline nasal spray 44mL Btl 1 SPRAY NASAL ×2 (04:20→18:10)
[2025-10-17 04:34] LABS: Lipase 17 U/L (13-60)
[2025-10-17 04:42] LABS: Blood Urea Nitrogen 32 mg/dL (8-23); Calcium 8.4 mg/dL (8.5-10.5); Carbon Dioxide 28 mmol/L (22-29); Chloride 101 mmol/L (98-107); Glucose 111 mg/dL (65-115); NT Pro B Type Natriuretic Pept 17777 pg/mL (0-125); Osmolality Calculated 290 mOsm/kg (285-295); Sodium 136 mmol/L (136-145)
[2025-10-17 04:43] LABS: Anion Gap 11.1 (5-19); Potassium 4.1 mmol/L (3.5-5.1)
--- NOTE | 2025-10-17 06:03 | PC.NURSE ---
Contacted Dr. Taylor in reference to patient's positive occult stool test, and Hgb drop to 7.1 form 8.4. Gave patient's current VS, largely unchanged through the shift. Received no new orders at this time.
[2025-10-17] MEDS: ondansetron 2 mg/ML SDV 2 mL 4 MG IVP (08:08)
--- NOTE | 2025-10-17 11:06 | P.PN_ITS ---
Subjective 2 Subjective: Feels like he still cannot take great breaths/cannot catch a deep breath. No chest pain. He is very hard of hearing, does not have hearing aids. Vitals/I&O/Wt Last Vital Signs Temp 99.1 F 10/17/25 08:00 Pulse 95 10/17/25 09:53 Resp 21 H 10/17/25 09:53 BP 128/62 10/17/25 08:00 Pulse Ox 93 10/17/25 09:53 O2 Del Method Heated High Flow 10/17/25 08:06 O2 Flow Rate 60 10/17/25 09:53 FiO2 60 10/17/25 09:53 10/16/25 10/17/25 10/17/25 22:59 06:59 14:59 Intake Total 1050 / 1300 580 / 1880 120 / 120 Output Total 2192 / 2192 50 / 50 Balance -1142 / -892 580 / -312 70 / 70 Weight last 48 hrs Weight 83.189 kg Weight 83.3 kg Weight 81.647 kg Weight 81.647 kg Physical Exam 2 Narrative: Sleeping. Wakes up to voice. HHF cannula on. Const: COMMON NORMALS: patient oriented x3 and alert GENERAL APPEARANCE: c ooperative ORIENTATION/CONSCIOUSNESS: Yes awake HENMT: COMMON NORMALS: oropharynx normal Resp: COMMON NORMALS: normal respiratory effort AUSCULTATION: diminished lung sounds Cardio: COMMON NORMALS: regular rhythm, S1 normal heart sound present, S2 normal heart sound present and No murmurs present (Cardio) RHYTHM: regular rhythm HEART SOUNDS: S1 normal heart sound present and S2 normal heart sound present GI: COMMON NORMALS: Normal to inspection, nondistended, normoactive bowel sounds present, Soft to palpation and non-tender PALPATION: Yes Soft to palpation Extremity: COMMON NORMALS: no joint enlargement GENERAL: Yes edema (1+) Neuro: COMMON NORMALS: patient oriented x3 and moves all extremities S ENSORIUM/ORIENTATION: Yes alert Skin: COMMON NORMALS: no rashes or lesions noted GENERAL SKIN EXAM: no rashes or lesions noted Data 10/17/25 03:35 10/17/25 03:35 Micro: Microbiology 10/16/25 10:31 Blood Culture - Preliminary Blood NEGATIVE TO DATE 10/16/25 09:57 Blood Culture - Preliminary Blood NEGATIVE TO DATE 10/16/25 21:40 Legionella Urinary Antigen - Final Urine,Voided Bacterial Antigens - Final 10/16/25 18:05 Occult Blood (FIT) - Final Stool Routine Collection A&P Assessment and plan 1. Healthcare-associated pneumonia: 2. ESRD needing dialysis: 3. Hypotension: 4. Acute respiratory failure with hypoxia: 5. Thrombocytopenia: 6. Hypomagnesemia: 7. COPD without exacerbation: 8. DM2 (diabetes mellitus, type 2): Plan: R/O Healthcare Associated Pneumonia Acute respiratory failure with hypoxia COPD w/exacerbation Lung mass w/ Mediastinal Adenopathy Continues on heated high flow, 60% FiO2. Received hemodialysis yesterday. Still cannot catch a deep breath. Diminished lung sounds. Right lower pleural effusion. Discussed with nephrology, will attempt additional dialysis. Reviewed blood pressure, so far maintaining blood pressure. Monitor risk of hypotension ? Hx of pulmonary emboli 2nd and 3rd branches of lower lobes, lower extremity DVT: Pt S/P TAVR, On home medication Eliquis- was recently restarted at lower dose 2.5mg BID 2wk ago by PCP. Plt 80, Hold Eliquis ? Hx of Lung mass w/ Mediastinal Adenopathy(right upper lobe 6 cm in size), seen by Dr. Lezama during previous admission. Patient to follow up outpt w/ Dr. Alfredo at [place] for recommended bronchoscopy.- 09/21/25 ? 10/16 CXR: Mild improved aeration of pulmonary parenchyma right mid chest. However there is increasing opacity right lower chest that may represent pleural fluid and/or consolidation -Additional dialysis today. Discussed with nursing, rifle case repairer. -For COPD continue scheduled breathing treatments, add as needed. Will also started on IV corticosteroid, monitor for risk of hyperglycemia, hypertension, gastritis, encephalopathy. Pantoprazole IV. ? MRSA swab reviewed, negative ? Bacterial, Legionella reviewed, negative ? Sputum cultures ordered, pending. ? Respiratory viral panel reviewed, negative ? Pulse oximetry, supplemental o2 to keep saturations > 92% ? RT on board ? IV Abx coverage: Cefepime 1gm IV q24h, Zyvox 600mg IV q12h ? Continue home inhalers and benzonatate ? PT/OT prior to discharge ESRD needing dialysis Attempt additional dialysis today. Discussed with nephrology. Monitor blood pressures with risk of hypotension. Has been receiving albumin overnight, hold further infusions for now. Reviewed CBC, CMP. ? Elevated Creatinine 3.6 from baseline ? Baseline Adult School Counselor usually 2.7, per at bedside ? Nephrology consulted, recommendations appreciated. ? Dialysis scheduled 10/16 in setting of increased oxygen requirements ? Urine studies ordered, pending. ? On home bumex for fluid overload management - patient still making urine ? 10/16: Initial BNP [id number] trend ? Avoid nephrotoxic agents ? Strict I&Os, dly wts ? Low-sodium diet ? Fluid restriction 1L ? CMP dly Hypotension Blood pressure improved today. Monitor with dialysis. Continue midodrine. Hold further albumin infusions. Thrombocytopenia ? Plt 80, recently restarted on Eliquis 2wks ago per PCP ? Hold home Eliquis ? DVT PE prophylaxis with SCD for now ? Occult stool ordered, pending- recent GI bleed 09/15/25 ? IVP Protonix 40 mg BID ? Monitor CBC Hypomagnesemia ?Received magnesium 2mg IV. Recheck magnesium. ? Monitor CMP dly Hypothyroidism ? TSH, ordered, pending. ? Continue home levothyroxine 112 mcg PO Hyperlipidemia ?Continue home atorvastatin 40mg p.o. dly DM2 Consistent carb diet ? Blood glucose monitoring, ACHS ? Low regimen sliding scale ? Hypoglycemia protocol Pulmonary HTN ? Continue home medication Adempas and opsumit ? Follows outpatient History of PE. Continue anticoagulation. CODE STATUS: Full code GI prophylaxis: Protonix 40 mg IVP BID VTE prophylaxis: SCDs, home medication Eliquis on hold- Plt 80 PDMP PDMP Reviewed: Not Reviewed Attestations 2 Medical Necessity Statement*: Continue admission for assessment of management of hypoxic respite failure with fluid overload and a gentleman with ESRD. COPD exacerbation, with underlying pulmonary hypertension, needing to restart dialysis, with history of hypotension. Diagnoses Healthcare-associated pneumonia J18.9 ESRD needing dialysis N18.6; Z99.2 Hypotension I95.9 Acute respiratory failure with hypoxia J96.01 Thrombocytopenia D69.6 Hypomagnesemia E83.42 COPD without exacerbation J44.9 DM2 (diabetes mellitus, type 2) E11.9
[2025-10-17] MEDS: pantoprazole 40 mg SDV IVP ×2 (11:28→23:47)
--- NOTE | 2025-10-17 12:11 | P.PN_ITS ---
Subjective 2 Subjective: on 60 % fio2 Medications: Reviewed: Yes Vitals/I&O/Wt Last Vital Signs Temp 99.1 F 10/17/25 08:00 Pulse 92 10/17/25 11:40 Resp 20 H 10/17/25 11:35 BP 128/62 10/17/25 08:00 Pulse Ox 94 10/17/25 11:35 O2 Del Method Heated High Flow 10/17/25 11:32 O2 Flow Rate 60 10/17/25 11:35 FiO2 60 10/17/25 11:35 10/16/25 10/17/25 10/17/25 22:59 06:59 14:59 Intake Total 1050 / 1300 580 / 1880 120 / 120 Output Total 2192 / 2192 50 / 50 Balance -1142 / -892 580 / -312 70 / 70 Weight last 48 hrs Weight 83.189 kg Weight 83.3 kg Weight 81.647 kg Weight 81.647 kg Physical Exam 2 Narrative: And is awake and alert, on 60 % oxy mask PERRLA S1-S2 regular rate and rhythm Lungs with bilateral crackles Abdomen soft nontender Extremities 3+ lower extremity edema Skin no rash Data 10/17/25 03:35 10/17/25 03:35 Micro: Microbiology 10/16/25 10:31 Blood Culture - Preliminary Blood NEGATIVE TO DATE 10/16/25 09:57 Blood Culture - Preliminary Blood NEGATIVE TO DATE 10/16/25 21:40 Legionella Urinary Antigen - Final Urine,Voided Bacterial Antigens - Final 10/16/25 18:05 Occult Blood (FIT) - Final Stool Routine Collection A&P Assessment and plan 1. ESRD needing dialysis: Plan: 1. End-stage renal disease: HD was discontinued 2 weeks ago with possible renal recovery but patient now developed volume overload . Will restart hemodialysis while in the hospital and likely will require 2 times a week dialysis in future instead of 3 times per week. Will discuss with patient's energy operations vice president 2. Acute respiratory failure with hypoxia, HD yesterday and HD again today 3. Acute on chronic respiratory failure: Multifactorial 4. Anemia: Will order JENNY 5. History of pulmonary emboli 6. Hypotension, on midodrine Patient evaluated using audiovisual cart. Time spent 40 minutes PDMP PDMP Reviewed: Not Reviewed Attestations 2 Medical Necessity Statement*: per medicine Coding Level of Care Code Acute Code for Chg Fwd Diagnoses ESRD needing dialysis N18.6; Z99.2
[2025-10-17] MEDS: methylPREDNISolone sod succ 40 mg/mL INJ 20 MG IVP ×2 (12:59→20:45)
[2025-10-17] MEDS: APIXABAN 2.5 MG TABLET PO (13:01)
[2025-10-17] MEDS: cefepime 1,000 mg SDV 1000 MG IVP (15:54)
[2025-10-17] MEDS: heparin, porcine 1,000 unit/mL INJ 10 mL 10000 UNIT INTRACATH (16:25)
[2025-10-18] VITALS (36 sets, daily range): BP systolic 98–140; BP diastolic 49–85; PULSE 84–104; RESP 0–29; TEMP 36.8–37.5; O2SAT 90–98
[2025-10-18] MEDS: methylPREDNISolone sod succ 40 mg/mL INJ 20 MG IVP ×3 (04:09→20:58)
[2025-10-18] MEDS: APIXABAN 2.5 MG TABLET PO (04:09)
[2025-10-18] MEDS: fluticasone nasal spray 16gm Btl 1 SPRAY INTRANASAL ×2 (04:10→16:11)
[2025-10-18] MEDS: RIOCIGUAT 2.5 MG 2.5 EACH PO ×3 (04:11→21:00)
[2025-10-18] MEDS: saline nasal spray 44mL Btl 1 SPRAY NASAL ×2 (04:12→16:12)
[2025-10-18 04:40] LABS: Alanine Aminotransferase 8 U/L (0-41); Albumin Level 3.6 g/dL (3.5-5.2); Alkaline Phosphatase 240 U/L (40-130); Aspartate Amino Transferase 21 U/L (0-40); Blood Urea Nitrogen 30 mg/dL (8-23); Calcium 8.7 mg/dL (8.5-10.5); Carbon Dioxide 27 mmol/L (22-29); Chloride 100 mmol/L (98-107); Globulin 2.6 g/dL (1.3-4.6); Glucose 202 mg/dL (65-115); Magnesium 1.9 mg/dL (1.7-2.3); Osmolality Calculated 300 mOsm/kg (285-295); Sodium 139 mmol/L (136-145); Total Protein 6.2 g/dL (6.6-8.7)
[2025-10-18 04:50] LABS: Anion Gap 16.2 (5-19); Potassium 4.2 mmol/L (3.5-5.1)
[2025-10-18 04:58] LABS: Hematocrit 22.9 % (37-53); Hemoglobin 7.10 g/dL (11.27-16.99); Mean Corpuscular HGB Conc 31.0 g/dL (30-55); Mean Corpuscular Hemoglobin 30.0 pg (27-33); Mean Corpuscular Volume 96.6 fl (82-101); Nucleated Red Blood Cells % 0 %; Platelet Count 39 10^3/cmm (157-399); Red Blood Count 2.37 10^6/uL (3.85-5.65); White Blood Count 5.87 10^3/uL (3.29-11.43)
[2025-10-18] MEDS: linezolid premix 600 MG/300 ML PREMIX 300 MG IV ×2 (05:44→17:44)
[2025-10-18 07:59] LABS: Hematocrit 22.8 % (37-53); Retic Production Index 0.11
[2025-10-18 08:09] LABS: LAB Peripheral Smear Sent for Review
[2025-10-18] MEDS: FUROsemide 10 mg/mL SDV 10mL 80 MG IVP ×2 (09:17→20:58)
--- NOTE | 2025-10-18 09:38 | P.PN_ITS ---
Subjective 2 Subjective: s/p HD yesterday on 70% Fio2 Medications: Reviewed: Yes Vitals/I&O/Wt Last Vital Signs Temp 98.2 F 10/18/25 04:00 Pulse 88 10/18/25 09:00 Resp 20 H 10/18/25 08:52 BP 137/59 10/18/25 04:00 Pulse Ox 94 10/18/25 08:52 O2 Del Method Heated High Flow 10/18/25 08:51 O2 Flow Rate 60 10/18/25 08:52 FiO2 70 10/18/25 08:52 10/17/25 10/18/25 10/18/25 22:59 06:59 14:59 Intake Total 1150 / 1470 450 / 1920 Output Total 3000 / 3050 150 / 3200 Balance -1850 / -1580 300 / -1280 Weight last 48 hrs Weight 81.42 kg Weight 84.1 kg Weight 83.189 kg Weight 83.3 kg Weight 81.647 kg Physical Exam 2 Narrative: And is awake and alert, on 70 % oxy mask PERRLA S1-S2 regular rate and rhythm Lungs with bilateral crackles Abdomen soft nontender Extremities 3+ lower extremity edema Skin no rash Data 10/18/25 04:00 10/18/25 04:00 Micro: Microbiology 10/16/25 10:31 Blood Culture - Preliminary Blood NEGATIVE TO DATE 10/16/25 09:57 Blood Culture - Preliminary Blood NEGATIVE TO DATE 10/16/25 21:40 Legionella Urinary Antigen - Final Urine,Voided Bacterial Antigens - Final A&P Assessment and plan 1. ESRD needing dialysis: Plan: 1. End-stage renal disease: HD was discontinued 2 weeks ago with possible renal recovery but patient presented with volume overload . Restarted hemodialysis and likely will require 2 times a week dialysis in future instead of 3 times per week. Will discuss with patient's customer service receptionist HD x 2 sessions 2. Acute respiratory failure with hypoxia, HD yesterday 3. Acute on chronic respiratory failure: Multifactorial 4. Anemia: Will order JENNY 5. History of pulmonary emboli 6. Hypotension, on midodrine Patient evaluated using audiovisual cart. Time spent 40 minutes PDMP PDMP Reviewed: Not Reviewed Attestations 2 Medical Necessity Statement*: per medicine Coding Level of Care Code Acute Code for g Fwd Diagnoses ESRD needing dialysis N18.6; Z99.2
[2025-10-18] MEDS: ondansetron 2 mg/ML SDV 2 mL 4 MG IVP (10:54)
[2025-10-18] MEDS: pantoprazole 40 mg SDV IVP ×2 (10:54→23:28)
--- NOTE | 2025-10-18 11:09 | PM.PN ---
Subjective Subjective: He reports he is feeling yucky today, had some nausea and episode of vomiting this morning with breakfast, although this is reported to be chronic issue per his daughter. He is also having some dry cough, some wheezing on exam. Vitals/I&O/Wt Last Vital Signs Temp 98.2 F 10/18/25 04:00 Pulse 89 10/18/25 10:00 Resp 16 10/18/25 10:00 BP 135/65 10/18/25 10:00 Pulse Ox 94 10/18/25 10:00 O2 Del Method Heated High Flow 10/18/25 10:00 O2 Flow Rate 60 10/18/25 09:58 FiO2 70 10/18/25 10:00 10/17/25 10/18/25 10/18/25 22:59 06:59 14:59 Intake Total 1150 / 1470 450 / 1920 240 / 240 Output Total 3000 / 3050 150 / 3200 Balance -1850 / -1580 300 / -1280 240 / 240 Weight last 48 hrs Weight 81.42 kg Weight 84.1 kg Weight 83.189 kg Weight 83.3 kg Weight 81.647 kg Physical Exam Narrative: Sitting up in the bedside, having breakfast. HHF cannula on. Const: COMMON NORMALS: patient oriented x3 and alert GENERAL APPEARANCE: cooperative ORIENTATION/CONSCIOUSNESS: Yes awake HENMT: COMMON NORMALS: oropharynx normal Resp: COMMON NORMALS: normal respiratory effort AUSCULTATION: diminished lung sounds OTHER: Mild wheezing with cough Cardio: COMMON NORMALS: regular rhythm, S1 normal heart sound present, S2 normal heart sound present and No murmurs present (Cardio) RHYTHM: regular rhythm HEART SOUNDS: S1 normal heart sound present and S2 normal heart sound present GI: COMMON NORMALS: Normal to inspection, nondistended, normoactive bowel sounds present, Soft to palpation and non-tender PALPATION: Yes Soft to palpation Extremity: COMMON NORMALS: no joint enlargement GENERAL: Yes edema (1+) Neuro: COMMON NORMALS: patient oriented x3 and moves all extremities SENSORIUM/ORIENTATION: Yes alert Skin: COMMON NORMALS: no rashes or lesions noted GENERAL SKIN EXAM: no rashes or lesions noted Data 10/18/25 04:00 10/18/25 04:00 Micro: Microbiology 10/16/25 10:31 Blood Culture - Preliminary Blood NEGATIVE TO DATE 10/16/25 09:57 Blood Culture - Preliminary Blood NEGATIVE TO DATE 10/16/25 21:40 Legionella Urinary Antigen - Final Urine,Voided Bacterial Antigens - Final A&P Assessment and plan 1. Healthcare-associated pneumonia: 2. ESRD needing dialysis: 3. Hypotension: 4. Acute respiratory failure with hypoxia: 5. Thrombocytopenia: 6. Hypomagnesemia: 7. COPD without exacerbation: 8. DM2 (diabetes mellitus, type 2): Plan: R/O Healthcare Associated Pneumonia Acute respiratory failure with hypoxia COPD w/exacerbation Lung mass w/ Mediastinal Adenopathy Feeling somewhat worse today, FiO2 requirement increased up to 70%. Continue heated high flow. Did receive additional dialysis yesterday. Monitor intake and output. Weights. Discussed with him possible acute viral illness not excluded with some wheezing, him feeling some malaise today, with some nausea, although this appears to be a chronic problem as well, as well as with some worsening cytopenia with thrombocytopenia to 39, anemia persists, hemoglobin 7.1. Eliquis held for now due to worsening thrombocytopenia, hold off on nasal swab for now with risk of bleeding. Discussed with nursing staff, noted heavy yeast on sputum culture. Will provide Diflucan coverage at current time as well. Follow-up ID. Continue oxygen support, wean down as tolerating. Continue corticosteroid with severe exacerbation of COPD, diminished lung sounds, mild wheezing with cough. Continue slow Medrol, concern of increasing the dose due to history of GI bleeding, upper GI erosions, continue PPI. Add inhaled corticosteroid, continue [place] antibiotic coverage. Breathing treatments. RT follow-up and treatment. Continue nephrology reassessment for additional dialysis. Discussed with case management will need twice weekly dialysis after discharge. ? Hx of pulmonary emboli 2nd and 3rd branches of lower lobes, lower extremity DVT: Pt S/P TAVR, On home medication Eliquis- was recently restarted at lower dose 2.5mg BID 2wk ago by PCP. Plt 80, Hold Eliquis ? Hx of Lung mass w/ Mediastinal Adenopathy(right upper lobe 6 cm in size), seen by Dr. Lezama during previous admission. Patient to follow up outpt w/ Dr. Alfredo at [facility] for recommended bronchoscopy.- 09/21/25 ? 10/16 CXR: Mild improved aeration of pulmonary parenchyma right mid chest. However there is increasing opacity right lower chest that may represent pleural fluid and/or consolidation Reviewed CBC. ? MRSA swab reviewed, negative ? Bacterial, Legionella reviewed, negative ? Sputum cultures ordered, pending. Heavy yeast. ? Respiratory viral panel reviewed, negative ? Pulse oximetry, supplemental o2 to keep saturations > 92% ? RT on board ? IV Abx coverage: Cefepime 1gm IV q24h, Zyvox 600mg IV q12h ? Continue home inhalers and benzonatate ? PT/OT prior to discharge ESRD needing dialysis Attempt additional dialysis according to nephrology. Discussed with nephrology. Monitor blood pressures with risk of hypotension. Has been receiving albumin overnight, hold further infusions for now. Reviewed CBC, CMP. Intake and output. Discussed with mattress spring encaser, per nephrology will need continued twice weekly dialysis after discharge. ? Baseline Switchboard Clerk usually 2.7, per at bedside ? Avoid nephrotoxic agents ? Strict I&Os, dly wts ? Fluid restriction 1L ? CMP dly Hypotension Blood pressure improved today. Monitor with dialysis. Continue midodrine. Hold further albumin infusions. Thrombocytopenia ? Plt down to 39, recently restarted on Eliquis 2wks ago per PCP. Hold additional Eliquis. Prior thrombocytopenia, although platelets usually 50s-60s, currently down to 39, worse than before. Requested peripheral smear. LDH, haptoglobin. LDH with only minimal elevation haptoglobin not low. Without evidence of hemolysis. Does have cirrhotic appearance of the liver, may be a possible cause of the thrombocytopenia. As well as anemia chronic disease with ESRD. No iron deficiency noted in August. ? DVT PE prophylaxis with SCD for now ? Occult stool ordered, pending- recent GI bleed 09/15/25 ? IVP Protonix 40 mg BID ? Monitor CBC Hypomagnesemia ?Received magnesium 2mg IV. Recheck magnesium. ? Monitor CMP dly Hypothyroidism ? TSH, ordered, pending. ? Continue home levothyroxine 112 mcg PO Hyperlipidemia ?Continue home atorvastatin 40mg p.o. dly DM2 Consistent carb diet ? Blood glucose monitoring, ACHS ? Low regimen sliding scale ? Hypoglycemia protocol Pulmonary HTN ? Continue home medication Adempas and opsumit ? Follows outpatient History of PE. Continue anticoagulation. Likely liver cirrhosis: Cirrhotic appearance of the liver on CT back in August. With noted anemia, thrombocytopenia. Chronic elevation of alkaline phosphatase. T. bili, AST, ALT normal. CODE STATUS: Full code GI prophylaxis: Protonix 40 mg IVP BID VTE prophylaxis: SCDs, home medication Eliquis on hold PDMP PDMP Reviewed: Not Reviewed Attestations Medical Necessity Statement*: Continue admission for assessment of management of hypoxic resp failure with fluid overload and a gentleman with ESRD. COPD exacerbation, with underlying pulmonary hypertension, needing to restart dialysis, with history of hypotension. Coding Level of Care Code Critical Care >/= 30 minutes Critical care time (in minutes): 35 Diagnoses Healthcare-associated pneumonia J18.9 ESRD needing dialysis N18.6; Z99.2 Hypotension I95.9 Acute respiratory failure with hypoxia J96.01 Thrombocytopenia D69.6 Hypomagnesemia E83.42 COPD without exacerbation J44.9 DM2 (diabetes mellitus, type 2) E11.9
[2025-10-18] MEDS: fluconazole premix 200 MG/100 ML PREMIX 100 MG IV (15:13)
[2025-10-18] MEDS: cefepime 1,000 mg SDV 1000 MG IVP (16:11)
[2025-10-19] VITALS (63 sets, daily range): BP systolic 98–151; BP diastolic 38–88; PULSE 86–101; RESP 8–24; TEMP 36.2–37.3; O2SAT 91–100
--- NOTE | 2025-10-19 03:29 | PC.NURSE ---
notified patient has had continued to c/o worsening SOB, although his O2 saturation is maintaining consistently in the mid to upper 90s. Notified provider patient had dialysis 10/16 & 10/17, but is oliguric. Patients lung sounds have worsened since the beginning of the shift. His upper lobes were clear and now have crackles with worsened wheezing. His HHF settings were 60L/70% at the beginning of the shift and are now 60L/100%. His face and upper extremities are more swollen as well. No new orders received.
[2025-10-19] MEDS: methylPREDNISolone sod succ 40 mg/mL INJ 20 MG IVP ×3 (04:23→21:58)
[2025-10-19] MEDS: fluticasone nasal spray 16gm Btl 1 SPRAY INTRANASAL ×2 (04:23→17:55)
[2025-10-19] MEDS: RIOCIGUAT 2.5 MG 2.5 EACH PO ×3 (04:24→21:59)
[2025-10-19] MEDS: linezolid premix 600 MG/300 ML PREMIX 300 MG IV ×2 (04:24→18:19)
[2025-10-19] MEDS: saline nasal spray 44mL Btl 1 SPRAY NASAL ×2 (04:25→17:11)
[2025-10-19 04:33] LABS: Hematocrit 22.1 % (37-53); Hemoglobin 6.70 g/dL (11.27-16.99); Mean Corpuscular HGB Conc 30.3 g/dL (30-55); Mean Corpuscular Hemoglobin 29.6 pg (27-33); Mean Corpuscular Volume 97.8 fl (82-101); Nucleated Red Blood Cells % 0 %; Platelet Count 48 10^3/cmm (157-399); Red Blood Count 2.26 10^6/uL (3.85-5.65); White Blood Count 9.11 10^3/uL (3.29-11.43)
[2025-10-19 04:59] LABS: Alanine Aminotransferase 10 U/L (0-41); Albumin Level 3.6 g/dL (3.5-5.2); Alkaline Phosphatase 223 U/L (40-130); Anion Gap 17.8 (5-19); Aspartate Amino Transferase 20 U/L (0-40); Blood Urea Nitrogen 51 mg/dL (8-23); Calcium 8.5 mg/dL (8.5-10.5); Carbon Dioxide 25 mmol/L (22-29); Chloride 98 mmol/L (98-107); Globulin 2.3 g/dL (1.3-4.6); Glucose 233 mg/dL (65-115); Osmolality Calculated 303 mOsm/kg (285-295); Potassium 4.8 mmol/L (3.5-5.1); Sodium 136 mmol/L (136-145); Total Protein 5.9 g/dL (6.6-8.7)
--- NOTE | 2025-10-19 05:03 | PC.NURSE ---
notified of patients morning hemoglobin and hematocrit. Provider ordered 1 unit PRBC to be transfused with dialysis.
--- NOTE | 2025-10-19 08:03 | P.PN_ITS ---
Subjective 2 Subjective: getting HD Vitals/I&O/Wt Last Vital Signs Temp 97.2 F L 10/19/25 07:25 Pulse 89 10/19/25 07:25 Resp 20 H 10/19/25 07:25 BP 126/61 10/19/25 07:25 Pulse Ox 98 10/19/25 04:19 O2 Del Method High Flow Nasal Cannula 10/19/25 04:19 O2 Flow Rate 60 10/19/25 04:19 FiO2 50 10/19/25 04:19 10/18/25 10/19/25 10/19/25 22:59 06:59 14:59 Intake Total 520 / 880 650 / 1530 Output Total 250 / 250 Balance 520 / 880 400 / 1280 Weight last 48 hrs Weight 82.3 kg Weight 81.42 kg Weight 84.1 kg Physical Exam 2 Narrative: And is awake and alert, on 70 % oxy mask PERRLA S1-S2 regular rate and rhythm Lungs with bilateral crackles Abdomen soft nontender Extremities 3+ lower extremity edema Skin no rash Data 10/19/25 04:15 10/19/25 04:15 Micro: Microbiology 10/17/25 13:00 Sputum Culture - Preliminary Sputum - Expectorated Sputum Yeast species A&P Assessment and plan 1. ESRD needing dialysis: Plan: 1. End-stage renal disease: HD was discontinued 2 weeks ago with possible renal recovery but patient presented with volume overload . Restarted hemodialysis HD today 2. Acute respiratory failure with hypoxia,HD as above 3. Acute on chronic respiratory failure: Multifactorial 4. Anemia: Will order JENNY and plan for PRBC today 5. History of pulmonary emboli 6. Hypotension, on midodrine Patient evaluated using audiovisual cart. Time spent 40 minutes PDMP PDMP Reviewed: Not Reviewed Attestations 2 Medical Necessity Statement*: per rodneyca Coding Level of Care Code Acute Code for Chg Fwd Diagnoses ESRD needing dialysis N18.6; Z99.2
--- NOTE | 2025-10-19 08:09 | PC.HD ---
Due to delay in obtaining ordered PRBC, this RN is unable to administer blood product during HD as planned. Per Dr. Regalado call, ok to attempt an additional 300 mL in fluid removal as tolerated to compensate for the additional volume he will receive after HD.
[2025-10-19] MEDS: FUROsemide 10 mg/mL SDV 10mL 80 MG IVP ×2 (08:54→21:58)
[2025-10-19] MEDS: pantoprazole 40 mg SDV IVP ×2 (10:37→21:59)
--- NOTE | 2025-10-19 12:37 | PM.CONSULT ---
Providers/Reason For Consult Consulting Physician/Specialty*: Sylvain Mendoza D.P.M. Reason for Consult*: Suture removal left foot Attending Physician: Freeman Rodriguez Primary Care Provider: Patrick Nick MD History of Present Illness History of Present Illness Guy Wiseman is a 70 year old male admitted to the ICU, I was consulted for suture removal of his left foot underwent incision of bone cortex and bone culture due to diabetic foot ulceration with osteomyelitis date of operation 10/01/2025. Review of Systems General: Reports: 10 or more systems reviewed and unremarkable except in HPI and below Const: Denies: fever(s) or chills Eyes: Denies: change in vision Card: Denies: chest pain or palpitations Resp: Denies: dyspnea or productive cough GI: Denies: abdominal pain, nausea or vomiting : Denies: flank pain Musc: Reports: extremity swelling, joint stiffness and deformity Skin/Breast: Reports: sores, changes in skin color, dry skin, nail changes and change in hair; Denies: erythema Neuro: Reports: numbness in extremities, sensory changes and difficulty walking Psych: Denies: suicidal ideation Endo: Denies: change in body appearance Rogelio/Lymph: Denies: tender lymph nodes Medications/Allergies Home Medications ?Medication ?Instructions ?Recorded ?Confirmed ?Last Taken ?Type Cam boot to left #1 ea 05/15/23 10/16/25 08/19/25 Rx levothyroxine 112 mcg tablet 112 mcg PO DAILY 11/27/23 10/16/25 10/16/25 07:00 History riociguat 2.5 mg tablet (Adempas) 2.5 mg PO TID 11/27/23 10/16/25 10/16/25 08:00 History Diabetic shoes #1 ea 08/25/24 10/16/25 08/19/25 Rx CAM walker #1 ea 04/20/25 10/16/25 08/19/25 Rx acetaminophen 500 mg tablet 1,000 mg PO Q6H PRN Fever Or Pain 07/18/25 10/16/25 09/29/25 History (Tylenol Extra Strength) atorvastatin 40 mg tablet 40 mg PO DAILY 07/18/25 10/16/25 10/16/25 08:00 History macitentan 10 mg tablet (Opsumit) 10 mg PO DAILY 08/02/25 10/16/25 10/16/25 08:00 History insulin aspart U-100 100 unit/mL See Rx Instructions .Route 08/31/25 10/16/25 10/16/25 07:00 Rx (3 mL) subcutaneous pen (Novolog .COMPLEX #15 mL FlexPen U-100 Insulin aspart) oxygen 09/21/25 10/16/25 Unknown History benzonatate 100 mg capsule 100 mg PO TID 09/30/25 10/16/25 10/16/25 08:00 History pantoprazole 40 mg tablet,delayed 40 mg PO DAILY 09/30/25 10/16/25 10/15/25 08:00 History release apixaban 2.5 mg tablet (Eliquis) 2.5 mg PO BID 10/16/25 10/16/25 10/16/25 08:00 History azelastine 137 mcg (0.1 %) nasal 1 spray intranasal BID 10/16/25 10/16/25 10/16/25 08:00 History spray bumetanide 1 mg tablet 2 mg PO BID 10/16/25 10/16/25 10/16/25 08:00 History fluticasone propionate 50 50 mcg intranasal BID 10/16/25 10/16/25 10/16/25 08:00 History mcg/actuation nasal spray,suspension midodrine 5 mg tablet 5 mg PO TID 10/16/25 10/16/25 10/16/25 08:00 History ondansetron HCl 4 mg tablet 4 mg PO Q4H PRN Nausea And Vomiting 10/16/25 10/16/25 Unknown History tiotropium 2.5 mcg-olodaterol 2.5 2 puff inhalation DAILY #4 grams 10/19/25 Unknown Rx mcg/actuation mist for inhalation (Stiolto Respimat) Allergies Allergy/AdvReac Type Severity Reaction Status Date / Time No Known Allergies Allergy Verified 09/30/25 11:46 Current Medications Generic Name Dose Route Start Last Admin Trade Name Freq PRN Reason Stop Dose Admin Albuterol/Ipratropium 3 ml 10/16/25 16:00 10/19/25 11:29 Ipratropium-Albuterol 3 Ml Neb INHALATION 3 ml QID.RESPIRATORY CHUY Administration Albuterol/Ipratropium 3 ml 10/19/25 03:15 10/19/25 04:18 Ipratropium-Albuterol 3 Ml Neb INHALATION 3 ml Q4H PRN Administration SHORTNESS OF BREATH Apixaban 2.5 mg 10/17/25 12:30 10/18/25 04:09 Apixaban 2.5 Mg Tablet PO 2.5 mg On Hold: 10/18/25 07:45 BID CHUY Administration Atorvastatin Calcium 40 mg 10/17/25 05:00 10/19/25 04:23 Atorvastatin 40 Mg Tablet PO 40 mg DAILY CHUY Administration Benzonatate 100 mg 10/16/25 13:00 10/19/25 04:23 Benzonatate 100 Mg Capsule PO 100 mg TID CHUY Administration Budesonide 0.5 mg 10/18/25 11:25 10/19/25 08:28 Budesonide 0.5 Mg/2 Ml Neb INHALATION 0.5 mg BID.RESPIRATORY CHUY Administration Cefepime HCl 1,000 mg 10/16/25 16:15 10/18/25 16:11 Cefepime 1,000 Mg Sdv IVP 1,000 mg Q24H CHUY Administration Protocol Docusate Sodium 100 mg 10/16/25 17:00 10/19/25 04:23 Docusate Sodium 100 Mg Capsule PO Not Given BID CHUY Fluticasone Propionate 1 spray 10/16/25 17:00 10/19/25 04:23 Fluticasone Nasal [place] 16gm Btl INTRANASAL 1 spray BID CHUY Administration Furosemide 80 mg 10/18/25 09:00 10/19/25 08:54 Furosemide 10 Mg/Ml Sdv 10ml IVP 80 mg Q12H CHUY Administration Linezolid 600 mg in 300 mls @ 300 mls/hr 10/16/25 16:15 10/19/25 05:47 Zyvox Premix IV Infused Q12H CHUY Infusion Protocol Albumin Human 25 g in 100 mls @ 60 mls/hr 10/16/25 20:00 10/17/25 06:05 Albumin IV Infused On Hold: 10/17/25 08:02 TID CHUY Infusion Fluconazole 200 mg in 100 mls @ 100 mls/hr 10/18/25 15:00 10/18/25 18:01 Diflucan Premix IV Infused Q24H CHUY Infusion Insulin Human Lispro 0 unit 10/16/25 18:00 10/19/25 12:19 Insulin Lispro 100 Unit/1 Ml SUBCUT 4 unit WM&BEDTIME CHUY Administration Protocol Levothyroxine Sodium 112 mcg 10/17/25 05:00 10/19/25 04:24 Levothyroxine 112 Mcg Tablet PO 112 mcg DAILY CHUY Administration Methylprednisolone Sodium Succinate 20 mg 10/17/25 12:30 10/19/25 04:23 Methylprednisolone Sod Succ 40 Mg/Ml Inj IVP 20 mg Q8H CHUY Administration Midodrine 10 mg 10/16/25 18:00 10/19/25 04:24 Midodrine 5 Mg Tablet PO 10 mg TID CHUY Administration Non-Formulary Medication 2.5 mg 10/16/25 13:00 10/19/25 04:24 Riociguat [Adempas] PO 2.5 mg TID CHUY Administration Non-Formulary 1 each 10/17/25 05:00 10/19/25 04:24 Medication( PO 1 each Macitentan 10 Mg Tab DAILY CHUY Administration ) Ondansetron HCl 4 mg 10/16/25 10:48 10/18/25 10:54 Ondansetron 2 Mg/Ml Sdv 2 Ml IVP 4 mg Q8H PRN Administration vomiting, or N/V if npo Pantoprazole Sodium 40 mg 10/16/25 11:00 10/19/25 10:37 Pantoprazole 40 Mg Sdv IVP 40 mg Q12H CHUY Administration Sodium Chloride 1 spray 10/16/25 17:00 10/19/25 04:25 Saline Nasal [place] 44ml Btl NASAL 1 spray BID CHUY Administration PFSH Acute PFSH: Medical History (Updated 10/24/25 @ 17:43 by Sylvain Mendoza DPM) COPD with chronic bronchitis Mediastinal lymphadenopathy Lung mass Pericardial effusion Tobacco abuse Anemia Diabetes Warfarin anticoagulation Chest pain History of pulmonary embolism Congestive heart failure History of nonmelanoma skin cancer Hypothalamic hypothyroidism Hypertension History of blood clots COPD (chronic obstructive pulmonary disease) History of pulmonary embolism Surgical History (Updated 10/24/25 @ 17:43 by Sylvain Mendoza DPM) S/P TAVR (transcatheter aortic valve replacement) History of rotator cuff surgery Social History Smoking and tobacco/nicotine status: current every day tobacco/nicotine user Quit status (tobacco/nicotine): has quit using Year quit tobacco: 2024 Former quit date comment: a week ago Alcohol intake: never Substance/Drug Use: never Marital status: Life Partner Vitals/I&O/Wt Last Vital Signs Temp 97.2 F L 10/19/25 10:20 Pulse 95 10/19/25 11:31 Resp 19 H 10/19/25 11:31 BP 113/52 10/19/25 10:20 Pulse Ox 100 10/19/25 11:31 O2 Del Method High Flow Nasal Cannula 10/19/25 11:29 O2 Flow Rate 60 10/19/25 11:31 FiO2 70 10/19/25 11:31 10/18/25 10/19/25 10/19/25 22:59 06:59 14:59 Intake Total 520 / 880 650 / 1530 620 / 620 Output Total 250 / 250 3800 / 3800 Balance 520 / 880 400 / 1280 -3180 / -3180 Weight last 48 hrs Weight 180 lb 8.937 oz Weight 181 lb 7.047 oz Weight 179 lb 8 oz Weight 185 lb 6.54 oz Physical Exam Narrative: GENERAL: Patient is alert and oriented ?3 and in no acute distress. The following is a focused bilateral lower extremity exam. is present in the ICU with him. VASCULAR: Dorsalis pedis diminished bilaterally, posterior tibial arteries diminished. Capillary refill time less than 5 seconds to the distal hallux bilaterally. Calf is supple and nontender proximally and distally. Decreased pedal hair growth NEUROLOGICAL: Protective sensation intact 9/10 sites, tested with [place] Renato monofilament to bilateral feet. DERMATOLOGICAL: Incision left lateral forefoot is epithelialized, small sinus tract does not probe deep is exposed to fat layer with epithelialized margin and there is no periwound erythema warmth or drainage overall looking very healthy. MUSCULOSKELETAL: No pain to palpation subfifth metatarsal head left foot. Tailor's bunion bilaterally Data 10/24/25 03:18 10/24/25 03:18 Micro: Microbiology 10/17/25 13:00 Sputum Culture - Preliminary Sputum - Expectorated Sputum Yeast species A&P Assessment and plan 1. Type 2 diabetes mellitus with other specified complication, unspecified whether press tender long goods insulin use: 2. S/P foot surgery: Plan: Sutures removed left foot the incision is epithelialized and residual wound is measuring 1 mm x 1 mm x 2 mm, no periwound erythema, no purulent drainage, wound is healthy and trending towards healing. Advised daily dressing change silver alginate to be done by ICU nursing staff. Weightbearing as tolerated. PDMP PDMP Reviewed: Not Reviewed Coding Level of Care Code Acute Code for Chg Fwd Diagnoses Type 2 diabetes mellitus with other specified complication, unspecified whether press tender long goods insulin use E11.69 Diabetes mellitus assisted insulin use: unspecified assisted insulin use status Diabetes mellitus complication status: with other specified complication S/P foot surgery Z98.890
--- NOTE | 2025-10-19 12:51 | PC.SOCIAL ---
IMM Update pg 2 of IMM updated and reviewed w/ patient. Copy provided and copy dated, initialed and placed in chart.
--- NOTE | 2025-10-19 12:55 | P.PN_ITS ---
Subjective 2 Subjective: He reports he is feeling alright . Had difficulty maintaining oxygen saturation overnight. FiO2 had to be increased as high as 100%, but doing better this morning. Vitals/I&O/Wt Last Vital Signs Temp 97.4 F L 10/20/25 09:00 Pulse 89 10/20/25 11:21 Resp 18 10/20/25 11:20 BP 121/56 10/20/25 09:00 Pulse Ox 95 10/20/25 11:20 O2 Del Method Heated High Flow 10/20/25 11:20 O2 Flow Rate 50 10/20/25 11:20 FiO2 55 10/20/25 11:20 10/19/25 10/20/25 10/20/25 22:59 06:59 14:59 Intake Total 900 / 1680 610 / 2290 0 / 0 Balance 900 / -2120 610 / -1510 0 / 0 Weight last 48 hrs Weight 82.7 kg Weight 81.9 kg Weight 82.3 kg Physical Exam 2 Narrative: Sitting up in the bedside, having breakfast. HHF cannula on. Const: COMMON NORMALS: patient oriented x3 and alert GENERAL APPEARANCE: c ooperative ORIENTATION/CONSCIOUSNESS: Yes awake HENMT: COMMON NORMALS: oropharynx normal Resp: COMMON NORMALS: normal respiratory effort AUSCULTATION: diminished lung sounds Cardio: COMMON NORMALS: regular rhythm, S1 normal heart sound present, S2 normal heart sound present and No murmurs present (Cardio) RHYTHM: regular rhythm HEART SOUNDS: S1 normal heart sound present and S2 normal heart sound present GI: COMMON NORMALS: Normal to inspection, nondistended, normoactive bowel sounds present, Soft to palpation and non-tender PALPATION: Yes Soft to palpation Extremity: COMMON NORMALS: no joint enlargement GENERAL: Yes edema (1+) Neuro: COMMON NORMALS: patient oriented x3 and moves all extremities S ENSORIUM/ORIENTATION: Yes alert Skin: COMMON NORMALS: no rashes or lesions noted GENERAL SKIN EXAM: no rashes or lesions noted Data 10/20/25 04:48 10/20/25 04:48 Micro: Microbiology 10/17/25 13:00 Sputum Culture - Preliminary Sputum - Expectorated Sputum Yeast species A&P Assessment and plan 1. Healthcare-associated pneumonia: 2. ESRD needing dialysis: 3. Hypotension: 4. Acute respiratory failure with hypoxia: 5. Thrombocytopenia: 6. Hypomagnesemia: 7. COPD without exacerbation: 8. DM2 (diabetes mellitus, type 2): Plan: R/O Healthcare Associated Pneumonia Acute respiratory failure with hypoxia COPD w/exacerbation Lung mass w/ Mediastinal Adenopathy Overnight having difficulty maintaining saturations, FiO2 to be increased to 100% on HHF. In the morning doing better. Weaning down to 60% throughout the day. Received dialysis. RBC transfusion after dialysis. Continue treatment of COPD exacerbation, caution with history of GI bleed, low-dose corticosteroid, PPI. Inhaled corticosteroid. Continue. Antibiotics, breathing treatments. Continue Diflucan for heavy yeast in sputum culture, possible candidal respiratory infection. Underlying pulmonary hypertension, continuing on home medications. Pulmonary mass, mediastinal lymph nodes, was referred for biopsy at [facility] [place]. Pulmonary emboli found on prior admission. Has been unable to tolerate anticoagulation with worsening anemia and thrombocytopenia. Discussed with pulmonology, appreciate consultation. Reviewed CBC, BMP, sputum culture, blood culture. ? Hx of pulmonary emboli 2nd and 3rd branches of lower lobes, lower extremity DVT: Pt S/P TAVR, On home medication Eliquis- was recently restarted at lower dose 2.5mg BID 2wk ago by PCP. Plt 80, Hold Eliquis ? Hx of Lung mass w/ Mediastinal Adenopathy(right upper lobe 6 cm in size), seen by Dr. Lezama during previous admission. Patient to follow up outpt w/ Dr. Alfredo at [place] for recommended bronchoscopy.- 09/21/25 ? 10/16 CXR: Mild improved aeration of pulmonary parenchyma right mid chest. However there is increasing opacity right lower chest that may represent pleural fluid and/or consolidation ? MRSA swab reviewed, negative ? Bacterial, Legionella reviewed, negative ? Sputum cultures ordered, pending. Heavy yeast. ? Respiratory viral panel reviewed, negative ? Pulse oximetry, supplemental o2 to keep saturations > 92% ? RT on board ? IV Abx coverage: Cefepime 1gm IV q24h, Zyvox 600mg IV q12h ? Continue home inhalers and benzonatate ? PT/OT prior to discharge - Consider revisiting goals of care Thrombocytopenia Obtained haptoglobin, LDH, no suggestive of hemolysis. Reviewed medications, without obvious culprit of persistence with cytopenia on medications at home. Peripheral smear reviewed, without obvious platelet abnormality. No platelet clumping. Possibly secondary to liver cirrhosis. ? Plt down to 39, recently restarted on Eliquis 2wks ago per PCP. Hold additional Eliquis. Prior thrombocytopenia, although platelets usually 50s-60s, currently down to 39, worse than before. Requested peripheral smear. LDH, haptoglobin. LDH with only minimal elevation haptoglobin not low. Without evidence of hemolysis. Does have cirrhotic appearance of the liver, may be a possible cause of the thrombocytopenia. As well as anemia chronic disease with ESRD. No iron deficiency noted in August. ? DVT PE prophylaxis with SCD for now ? Occult stool ordered, pending- recent GI bleed 09/15/25 ? IVP Protonix 40 mg BID ? Monitor CBC ESRD needing dialysis Attempt additional dialysis according to nephrology. Discussed with nephrology. Monitor blood pressures with risk of hypotension. Has been receiving albumin overnight, hold further infusions for now. Reviewed CBC, CMP. Intake and output. Discussed with caser up, per nephrology will need continued twice weekly dialysis after discharge. ? 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 Avoid nephrotoxic agents ? Strict I&Os, dly wts ? Fluid restriction 1L ? CMP dly Hypotension Blood pressure improved today. Monitor with dialysis. Continue midodrine. Hold further albumin infusions. Hypomagnesemia Replaced Hypothyroidism ? TSH reviewed ? Continue home levothyroxine 112 mcg PO Hyperlipidemia ?Continue home atorvastatin 40mg p.o. dly DM2 Consistent carb diet ? Blood glucose monitoring, ACHS ? Low regimen sliding scale ? Hypoglycemia protocol Pulmonary HTN ? Continue home medication Adempas and opsumit ? Follows outpatient History of PE. In [place] has been on hold due to worsening anemia, thrombocytopenia. Likely liver cirrhosis: Cirrhotic appearance of the liver on CT back in August. With noted anemia, thrombocytopenia. Chronic elevation of alkaline phosphatase. T. bili, AST, ALT normal. CODE STATUS: Full code GI prophylaxis: Protonix 40 mg IVP BID VTE prophylaxis: SCDs, home medication Eliquis on hold PDMP PDMP Reviewed: Not Reviewed Attestations 2 Medical Necessity Statement*: Continue admission for assessment of management of hypoxic resp failure with fluid overload and a gentleman with ESRD. COPD exacerbation, with underlying pulmonary hypertension, needing to restart dialysis, with history of hypotension. Coding Level of Care Code Critical Care >/= 30 minutes Critical care time (in minutes): 35 The high probability of a clinically significant, sudden or life threatening deterioration, as referenced in this documentation, required my full and direct attention, intervention and personal management. The critical care time shown is in addition to time spent performing any reported separately billable procedures and includes the following: [x] Data and vital sign review and interpretation [x ] Patient assessment, examination and intervention [x] Medication orders and management [x] Patient/Family updates as able [x] Care Coordination and Documentation. Diagnoses Healthcare-associated pneumonia J18.9 ESRD needing dialysis N18.6; Z99.2 Hypotension I95.9 Acute respiratory failure with hypoxia J96.01 Thrombocytopenia D69.6 Hypomagnesemia E83.42 COPD without exacerbation J44.9 DM2 (diabetes mellitus, type 2) E11.9
[2025-10-19] MEDS: fluconazole premix 200 MG/100 ML PREMIX 100 MG IV (15:03)
[2025-10-19] MEDS: cefepime 1,000 mg SDV 1000 MG IVP (16:20)
--- NOTE | 2025-10-19 18:02 | PM.CONSULT ---
Providers/Reason For Consult Consulting Physician/Specialty*: General Surgery Reason for Consult*: Need for dialysis access Attending Physician: Freeman Rodriguez Primary Care Provider: Patrick Nick MD History of Present Illness History of Present Illness Guy Wiseman is a 70 year old male with multiple comorbidities who been recently started on hemodialysis, he had a right upper chest tunneled dialysis catheter that was having some issues with low, it was expected to be replaced but unfortunately today the catheter came out completely and patient noticed significant about a bleeding from the right upper chest. I was consulted for evaluation and to replace dialysis catheter Review of Systems General: Reports: 10 or more systems reviewed and unremarkable except in HPI and below Medications/Allergies Home Medications ?Medication ?Instructions ?Recorded ?Confirmed ?Last Taken ?Type Cam boot to left #1 ea 05/15/23 10/16/25 08/19/25 Rx levothyroxine 112 mcg tablet 112 mcg PO DAILY 11/27/23 10/16/25 10/16/25 07:00 History riociguat 2.5 mg tablet (Adempas) 2.5 mg PO TID 11/27/23 10/16/25 10/16/25 08:00 History Diabetic shoes #1 ea 08/25/24 10/16/25 08/19/25 Rx CAM walker #1 ea 04/20/25 10/16/25 08/19/25 Rx acetaminophen 500 mg tablet 1,000 mg PO Q6H PRN Fever Or Pain 07/18/25 10/16/25 09/29/25 History (Tylenol Extra Strength) atorvastatin 40 mg tablet 40 mg PO DAILY 07/18/25 10/16/25 10/16/25 08:00 History macitentan 10 mg tablet (Opsumit) 10 mg PO DAILY 08/02/25 10/16/25 10/16/25 08:00 History insulin aspart U-100 100 unit/mL See Rx Instructions .Route 08/31/25 10/16/25 10/16/25 07:00 Rx (3 mL) subcutaneous pen (Novolog .COMPLEX #15 mL FlexPen U-100 Insulin aspart) oxygen 09/21/25 10/16/25 Unknown History benzonatate 100 mg capsule 100 mg PO TID 09/30/25 10/16/25 10/16/25 08:00 History pantoprazole 40 mg tablet,delayed 40 mg PO DAILY 09/30/25 10/16/25 10/15/25 08:00 History release apixaban 2.5 mg tablet (Eliquis) 2.5 mg PO BID 10/16/25 10/16/25 10/16/25 08:00 History azelastine 137 mcg (0.1 %) nasal 1 spray intranasal BID 10/16/25 10/16/25 10/16/25 08:00 History spray bumetanide 1 mg tablet 2 mg PO BID 10/16/25 10/16/25 10/16/25 08:00 History fluticasone propionate 50 50 mcg intranasal BID 10/16/25 10/16/25 10/16/25 08:00 History mcg/actuation nasal spray,suspension midodrine 5 mg tablet 5 mg PO TID 10/16/25 10/16/25 10/16/25 08:00 History ondansetron HCl 4 mg tablet 4 mg PO Q4H PRN Nausea And Vomiting 10/16/25 10/16/25 Unknown History tiotropium 2.5 mcg-olodaterol 2.5 2 puff inhalation DAILY #4 grams 10/19/25 Unknown Rx mcg/actuation mist for inhalation (Stiolto Respimat) Allergies Allergy/AdvReac Type Severity Reaction Status Date / Time No Known Allergies Allergy Verified 09/30/25 11:46 Current Medications Generic Name Dose Route Start Last Admin Trade Name Freq PRN Reason Stop Dose Admin Albuterol/Ipratropium 3 ml 10/16/25 16:00 10/19/25 15:14 Ipratropium-Albuterol 3 Ml Neb INHALATION 3 ml QID.RESPIRATORY CHUY Administration Albuterol/Ipratropium 3 ml 10/19/25 03:15 10/19/25 04:18 Ipratropium-Albuterol 3 Ml Neb INHALATION 3 ml Q4H PRN Administration SHORTNESS OF BREATH Apixaban 2.5 mg 10/17/25 12:30 10/18/25 04:09 Apixaban 2.5 Mg Tablet PO 2.5 mg On Hold: 10/18/25 07:45 BID CHUY Administration Atorvastatin Calcium 40 mg 10/17/25 05:00 10/19/25 04:23 Atorvastatin 40 Mg Tablet PO 40 mg DAILY CHUY Administration Benzonatate 100 mg 10/16/25 13:00 10/19/25 13:02 Benzonatate 100 Mg Capsule PO 100 mg TID CHUY Administration Budesonide 0.5 mg 10/18/25 11:25 10/19/25 08:28 Budesonide 0.5 Mg/2 Ml Neb INHALATION 0.5 mg BID.RESPIRATORY CHUY Administration Cefepime HCl 1,000 mg 10/16/25 16:15 10/19/25 16:20 Cefepime 1,000 Mg Sdv IVP 1,000 mg Q24H CHUY Administration Protocol Docusate Sodium 100 mg 10/16/25 17:00 10/19/25 04:23 Docusate Sodium 100 Mg Capsule PO Not Given BID CHUY Fluticasone Propionate 1 spray 10/16/25 17:00 10/19/25 04:23 Fluticasone Nasal [place] 16gm Btl INTRANASAL 1 spray BID CHUY Administration Furosemide 80 mg 10/18/25 09:00 10/19/25 08:54 Furosemide 10 Mg/Ml Sdv 10ml IVP 80 mg Q12H CHUY Administration Linezolid 600 mg in 300 mls @ 300 mls/hr 10/16/25 16:15 10/19/25 05:47 Zyvox Premix IV Infused Q12H CHUY Infusion Protocol Albumin Human 25 g in 100 mls @ 60 mls/hr 10/16/25 20:00 10/17/25 06:05 Albumin IV Infused On Hold: 10/17/25 08:02 TID CHUY Infusion Fluconazole 200 mg in 100 mls @ 100 mls/hr 10/18/25 15:00 10/19/25 16:21 Diflucan Premix IV Infused Q24H CHUY Infusion Insulin Human Lispro 0 unit 10/16/25 18:00 10/19/25 12:19 Insulin Lispro 100 Unit/1 Ml SUBCUT 4 unit WM&BEDTIME CHUY Administration Protocol Levothyroxine Sodium 112 mcg 10/17/25 05:00 10/19/25 04:24 Levothyroxine 112 Mcg Tablet PO 112 mcg DAILY CHUY Administration Methylprednisolone Sodium Succinate 20 mg 10/17/25 12:30 10/19/25 12:59 Methylprednisolone Sod Succ 40 Mg/Ml Inj IVP 20 mg Q8H CHUY Administration Midodrine 10 mg 10/16/25 18:00 10/19/25 13:03 Midodrine 5 Mg Tablet PO 10 mg TID CHUY Administration Non-Formulary Medication 2.5 mg 10/16/25 13:00 10/19/25 13:02 Riociguat [Adempas] PO 2.5 mg TID CHUY Administration Non-Formulary 1 each 10/17/25 05:00 10/19/25 04:24 Medication( PO 1 each Macitentan 10 Mg Tab DAILY CHUY Administration ) Ondansetron HCl 4 mg 10/16/25 10:48 10/18/25 10:54 Ondansetron 2 Mg/Ml Sdv 2 Ml IVP 4 mg Q8H PRN Administration vomiting, or N/V if npo Pantoprazole Sodium 40 mg 10/16/25 11:00 10/19/25 10:37 Pantoprazole 40 Mg Sdv IVP 40 mg Q12H CHUY Administration Sodium Chloride 1 spray 10/16/25 17:00 10/19/25 04:25 Saline Nasal [place] 44ml Btl NASAL 1 spray BID CHUY Administration Sodium Chloride 50 ml 10/19/25 04:44 10/19/25 13:13 Sodium Chloride 0.9% 100 Ml Bag IV 10/20/25 04:44 50 ml PRN PRN Administration Blood transfusion prime and flush PFSH Acute PFSH: Medical History COPD with chronic bronchitis Mediastinal lymphadenopathy Lung mass Pericardial effusion Tobacco abuse Anemia Diabetes Warfarin anticoagulation Chest pain History of pulmonary embolism Congestive heart failure History of nonmelanoma skin cancer Hypothalamic hypothyroidism Hypertension History of blood clots COPD (chronic obstructive pulmonary disease) History of pulmonary embolism Surgical History S/P TAVR (transcatheter aortic valve replacement) History of rotator cuff surgery Social History Smoking and tobacco/nicotine status: current every day tobacco/nicotine user Quit status (tobacco/nicotine): has quit using Year quit tobacco: 2024 Former quit date comment: a week ago Alcohol intake: never Substance/Drug Use: never Marital status: Life Partner Vitals/I&O/Wt Last Vital Signs Temp 98.4 F 10/19/25 16:05 Pulse 98 10/19/25 16:05 Resp 23 H 10/19/25 16:05 BP 135/64 10/19/25 16:05 Pulse Ox 93 10/19/25 16:05 O2 Del Method High Flow Nasal Cannula 10/19/25 15:15 O2 Flow Rate 60 10/19/25 15:15 FiO2 50 10/19/25 15:15 10/19/25 10/19/25 10/19/25 06:59 14:59 22:59 Intake Total 650 / 1530 780 / 780 450 / 1230 Output Total 250 / 250 3800 / 3800 Balance 400 / 1280 -3020 / -3020 450 / -2570 Weight last 48 hrs Weight 180 lb 8.937 oz Weight 181 lb 7.047 oz Weight 179 lb 8 oz Physical Exam Narrative: Patient is in high flow oxygen, appears to be comfortable ? Right upper neck appears normal with no evidence of an active hematoma, there was some bleeding from the right upper chest in the area of the catheter insertion site. Data 10/19/25 04:15 10/19/25 04:15 Micro: Microbiology 10/17/25 13:00 Sputum Culture - Preliminary Sputum - Expectorated Sputum Yeast species A&P Assessment and plan 1. Pulmonary embolism: 2. Thrombocytopenia: 3. DM2 (diabetes mellitus, type 2): 4. Acute kidney injury superimposed on CKD: 5. End stage renal disease on dialysis: Plan: 10 minutes of pressure were held at the level of the insertion site in the right IJ vein, the head of the bed was elevated after these all bleeding stopped. A compressive dressing was applied. Patient will require replacement of his tunneled dialysis catheter to continue dialysis as outpatient I have discussed all risks and benefits including the risk of bleeding, need for additional interventions, catheter malfunction, infection, pneumothorax requiring tube thoracostomy, injury to the great vessels of the chest causing major bleeding and possible , injury to the carotid artery, inability to obtain vascular access. After discussion of risk benefits patient and family member agreed to proceed, he will be kept n.p.o. after midnight. I have discussed with medical team he is getting 1 unit of blood and he will get a unit of platelets we will plan to proceed to the OR tomorrow for tunneled dialysis catheter placement PDMP PDMP Reviewed: Not Reviewed Coding Level of Care Code 24086 Diagnoses Pulmonary embolism I26.99 Thrombocytopenia D69.6 DM2 (diabetes mellitus, type 2) E11.9 Acute kidney injury superimposed on CKD N17.9; N18.9 End stage renal disease on dialysis N18.6; Z99.2
--- NOTE | 2025-10-19 18:55 | XRR_ITS ---
PROCEDURE INFORMATION: Exam: XR Chest Exam date and time: 10/19/2025 8:46 PM Age: 70 years old Clinical indication: Shortness of breath; Additional info: Subcut air TECHNIQUE: Imaging protocol: Radiologic exam of the chest. Views: 1 view. COMPARISON: CR (CHEST, ) 10/16/2025 9:36 AM FINDINGS: Tubes, catheters and devices: Right-sided PICC line with tip at the atrial caval junction. Lungs: Patchy right lung field pneumonia. Pleural spaces: Unremarkable. No pleural effusion. No pneumothorax. Heart/Mediastinum: Cardiomegaly and pulmonary vascular congestion. TAVR. Bones/joints: Unremarkable. XR/XR chest 1V portable [id number] IMPRESSION: 1. Right-sided PICC line with tip at the atrial caval junction. 2. Patchy right lung field pneumonia. 3. Cardiomegaly and pulmonary vascular congestion. 4. TAVR.
--- NOTE | 2025-10-19 20:02 | PC.NURSE ---
[employer] down during shift change. Off going nurse, Naima, RN placed paper note in patients chart.
[2025-10-20] VITALS (96 sets, daily range): BP systolic 91–145; BP diastolic 41–76; PULSE 66–104; RESP 0–30; TEMP 36.3–37.8; O2SAT 86–98
[2025-10-20] MEDS: RIOCIGUAT 2.5 MG 2.5 EACH PO ×3 (04:17→21:57)
[2025-10-20] MEDS: saline nasal spray 44mL Btl 1 SPRAY NASAL (04:19)
[2025-10-20] MEDS: fluticasone nasal spray 16gm Btl 1 SPRAY INTRANASAL (04:19)
[2025-10-20] MEDS: methylPREDNISolone sod succ 40 mg/mL INJ 20 MG IVP ×3 (04:23→21:09)
[2025-10-20] MEDS: linezolid premix 600 MG/300 ML PREMIX 300 MG IV ×2 (04:23→17:15)
[2025-10-20 05:46] LABS: Hematocrit 23.8 % (37-53); Hemoglobin 7.50 g/dL (11.27-16.99); Mean Corpuscular HGB Conc 31.5 g/dL (30-55); Mean Corpuscular Hemoglobin 29.5 pg (27-33); Mean Corpuscular Volume 93.7 fl (82-101); Nucleated Red Blood Cells % 0 %; Platelet Count 60 10^3/cmm (157-399); Red Blood Count 2.54 10^6/uL (3.85-5.65); White Blood Count 8.31 10^3/uL (3.29-11.43)
[2025-10-20 06:00] LABS: Alanine Aminotransferase 12 U/L (0-41); Albumin Level 3.6 g/dL (3.5-5.2); Alkaline Phosphatase 215 U/L (40-130); Blood Urea Nitrogen 51 mg/dL (8-23); Calcium 8.5 mg/dL (8.5-10.5); Carbon Dioxide 24 mmol/L (22-29); Chloride 98 mmol/L (98-107); Creatinine Clr Calc Pharmacy 22.6695; Globulin 2.5 g/dL (1.3-4.6); Glucose 196 mg/dL (65-115); Osmolality Calculated 305 mOsm/kg (285-295); Sodium 138 mmol/L (136-145); Total Protein 6.1 g/dL (6.6-8.7)
[2025-10-20 06:06] LABS: Anion Gap 20.6 (5-19); Aspartate Amino Transferase 20 U/L (0-40); Potassium 4.6 mmol/L (3.5-5.1)
--- NOTE | 2025-10-20 08:20 | W.PM.OPSUD ---
Surgery/Procedure H&P Update DATE OF PROCEDURE: October 20, 2025 DATE H&P PERFORMED: 10/19/25 H&P UPDATE INFORMATION: I have reviewed H&P completed within last 30 days, I have examined patient prior to procedure, No changes to prior documentation, H&P is in [facility] EMR on date indicated and Risks and benefits of the procedure reviewed PLANNED PROCEDURE: Operation Date: 10/20/25 13:35 Proposed Procedures p Insertion Central Venous Access Device Dialysis Catheter Insertion/ Tunnelled dialysis cath(Not Applicable) - Wyatt Andrade MD
--- NOTE | 2025-10-20 08:38 | ANES.PREANE2 ---
Pre-Anesthetic Assessment Height/Weight: Height 1.63 m Weight 82.7 kg Temp Pulse Resp BP Pulse Ox O2 Del Method O2 Flow Rate 98.2 F 88 16 136/60 92 Heated High Flow 60 10/20/25 04:00 10/20/25 08:30 10/20/25 08:30 10/20/25 08:30 10/20/25 08:30 10/20/25 08:00 10/20/25 08:00 FiO2 60 10/20/25 08:00 Operation Date: 10/20/25 13:35 Proposed Procedures p Insertion Central Venous Access Device Dialysis Catheter Insertion/ Tunnelled dialysis cath(Not Applicable) - Wyatt Andrade MD Familial anesthetic complications: none Was Beta Mateo taken within 24 hours: N/A Was Clonidine taken within 24 hours: N/A Last intake: > 8 hrs Social No alcohol and No tobacco Exam alert, oriented x 3 and regular rate & rhythm Pulmonary Chronic Obstructive Pulmonary Disease LUng mass with mediastinal lymphadenopathy On high flow heated O2 CV/HEM Congestive Heart Failure and Myocardial Infarction Hx PE Hx TAVR Chronic Renal Failure Hepatic Cirrhosis Metabolic Diabetes Mellitus Anesthetic Plan ASA status: 4 Anesthesia: MAC Other: Low threshold for LMA placement Risk of > 500 ml blood loss (7ml/kg in children): No Medications/Allergies Home Medications ?Medication ?Instructions ?Recorded ?Confirmed ?Last Taken ?Type Cam boot to left #1 ea 05/15/23 10/16/25 08/19/25 Rx levothyroxine 112 mcg tablet 112 mcg PO DAILY 11/27/23 10/16/25 10/16/25 07:00 History riociguat 2.5 mg tablet (Adempas) 2.5 mg PO TID 11/27/23 10/16/25 10/16/25 08:00 History Diabetic shoes #1 ea 08/25/24 10/16/25 08/19/25 Rx CAM walker #1 ea 04/20/25 10/16/25 08/19/25 Rx acetaminophen 500 mg tablet 1,000 mg PO Q6H PRN Fever Or Pain 07/18/25 10/16/25 09/29/25 History (Tylenol Extra Strength) atorvastatin 40 mg tablet 40 mg PO DAILY 07/18/25 10/16/25 10/16/25 08:00 History macitentan 10 mg tablet (Opsumit) 10 mg PO DAILY 08/02/25 10/16/25 10/16/25 08:00 History insulin aspart U-100 100 unit/mL See Rx Instructions .Route 08/31/25 10/16/25 10/16/25 07:00 Rx (3 mL) subcutaneous pen (Novolog .COMPLEX #15 mL FlexPen U-100 Insulin aspart) oxygen 09/21/25 10/16/25 Unknown History benzonatate 100 mg capsule 100 mg PO TID 09/30/25 10/16/25 10/16/25 08:00 History pantoprazole 40 mg tablet,delayed 40 mg PO DAILY 09/30/25 10/16/25 10/15/25 08:00 History release apixaban 2.5 mg tablet (Eliquis) 2.5 mg PO BID 10/16/25 10/16/25 10/16/25 08:00 History azelastine 137 mcg (0.1 %) nasal 1 spray intranasal BID 10/16/25 10/16/25 10/16/25 08:00 History spray bumetanide 1 mg tablet 2 mg PO BID 10/16/25 10/16/25 10/16/25 08:00 History fluticasone propionate 50 50 mcg intranasal BID 10/16/25 10/16/25 10/16/25 08:00 History mcg/actuation nasal spray,suspension midodrine 5 mg tablet 5 mg PO TID 10/16/25 10/16/25 10/16/25 08:00 History ondansetron HCl 4 mg tablet 4 mg PO Q4H PRN Nausea And Vomiting 10/16/25 10/16/25 Unknown History tiotropium 2.5 mcg-olodaterol 2.5 2 puff inhalation DAILY #4 grams 10/19/25 Unknown Rx mcg/actuation mist for inhalation (Stiolto Respimat) Allergies Allergy/AdvReac Type Severity Reaction Status Date / Time No Known Allergies Allergy Verified 09/30/25 11:46 Current Medications Generic Name Dose Route Start Last Admin Trade Name Freq PRN Reason Stop Dose Admin Albuterol/Ipratropium 3 ml 10/16/25 16:00 10/20/25 07:59 Ipratropium-Albuterol 3 Ml Neb INHALATION 3 ml QID.RESPIRATORY CHUY Administration Albuterol/Ipratropium 3 ml 10/19/25 03:15 10/19/25 04:18 Ipratropium-Albuterol 3 Ml Neb INHALATION 3 ml Q4H PRN Administration SHORTNESS OF BREATH Apixaban 2.5 mg 10/17/25 12:30 10/18/25 04:09 Apixaban 2.5 Mg Tablet PO 2.5 mg On Hold: 10/18/25 07:45 BID CHUY Administration Atorvastatin Calcium 40 mg 10/17/25 05:00 10/20/25 04:23 Atorvastatin 40 Mg Tablet PO 40 mg DAILY CHUY Administration Benzonatate 100 mg 10/16/25 13:00 10/20/25 04:23 Benzonatate 100 Mg Capsule PO 100 mg TID CHUY Administration Budesonide 0.5 mg 10/18/25 11:25 10/20/25 07:59 Budesonide 0.5 Mg/2 Ml Neb INHALATION 0.5 mg BID.RESPIRATORY CHUY Administration Cefepime HCl 1,000 mg 10/16/25 16:15 10/19/25 16:20 Cefepime 1,000 Mg Sdv IVP 1,000 mg Q24H CHUY Administration Protocol Docusate Sodium 100 mg 10/16/25 17:00 10/20/25 04:30 Docusate Sodium 100 Mg Capsule PO Not Given BID CHUY Fluticasone Propionate 1 spray 10/16/25 17:00 10/20/25 04:19 Fluticasone Nasal [place] 16gm Btl INTRANASAL 1 spray BID CHUY Administration Furosemide 80 mg 10/18/25 09:00 10/19/25 21:58 Furosemide 10 Mg/Ml Sdv 10ml IVP 80 mg Q12H CHUY Administration Linezolid 600 mg in 300 mls @ 300 mls/hr 10/16/25 16:15 10/20/25 05:23 Zyvox Premix IV Infused Q12H CHUY Infusion Protocol Albumin Human 25 g in 100 mls @ 60 mls/hr 10/16/25 20:00 10/17/25 06:05 Albumin IV Infused On Hold: 10/17/25 08:02 TID CHUY Infusion Fluconazole 200 mg in 100 mls @ 100 mls/hr 10/18/25 15:00 10/19/25 16:21 Diflucan Premix IV Infused Q24H CHUY Infusion Insulin Human Lispro 0 unit 10/16/25 18:00 10/19/25 21:59 Insulin Lispro 100 Unit/1 Ml SUBCUT 6 unit WM&BEDTIME CHUY Administration Protocol Levothyroxine Sodium 112 mcg 10/17/25 05:00 10/20/25 04:23 Levothyroxine 112 Mcg Tablet PO 112 mcg DAILY CHUY Administration Methylprednisolone Sodium Succinate 20 mg 10/17/25 12:30 10/20/25 04:23 Methylprednisolone Sod Succ 40 Mg/Ml Inj IVP 20 mg Q8H CHUY Administration Midodrine 10 mg 10/16/25 18:00 10/20/25 04:23 Midodrine 5 Mg Tablet PO 10 mg TID CHUY Administration Non-Formulary Medication 2.5 mg 10/16/25 13:00 10/20/25 04:17 Riociguat [Adempas] PO 2.5 mg TID CHUY Administration Non-Formulary 1 each 10/17/25 05:00 10/20/25 04:18 Medication( PO 1 each Macitentan 10 Mg Tab DAILY CHUY Administration ) Ondansetron HCl 4 mg 10/16/25 10:48 10/18/25 10:54 Ondansetron 2 Mg/Ml Sdv 2 Ml IVP 4 mg Q8H PRN Administration vomiting, or N/V if npo Pantoprazole Sodium 40 mg 10/16/25 11:00 10/19/25 21:59 Pantoprazole 40 Mg Sdv IVP 40 mg Q12H CHUY Administration Sodium Chloride 1 spray 10/16/25 17:00 10/20/25 04:19 Saline Nasal [place] 44ml Btl NASAL 1 spray BID CHUY Administration PFSH Anesthesia Medical History COPD with chronic bronchitis Mediastinal lymphadenopathy Lung mass Pericardial effusion Tobacco abuse Anemia Diabetes Warfarin anticoagulation Chest pain History of pulmonary embolism Congestive heart failure History of nonmelanoma skin cancer Hypothalamic hypothyroidism Hypertension History of blood clots COPD (chronic obstructive pulmonary disease) History of pulmonary embolism Surgical History S/P TAVR (transcatheter aortic valve replacement) History of rotator cuff surgery Social History Smoking and tobacco/nicotine status: current every day tobacco/nicotine user Quit status (tobacco/nicotine): has quit using Year quit tobacco: 2024 Former quit date comment: a week ago Alcohol intake: never Substance/Drug Use: never Marital status: Life Partner Data Anesthesia 10/20/25 04:48 10/20/25 04:48 Short CBC 10/19/25 10/20/25 Range/Units 04:15 04:48 WBC 9.11 8.31 (3.29-11.43) 10^3/uL Hgb 6.70 L 7.50 L (11.27-16.99) g/dL Hct 22.1 L 23.8 L (37-53) % MCV 97.8 93.7 (82-101) fl Plt Count 48 L 60 L (157-399) 10^3/cmm Neut % (Auto) 86.0 88.1 % Neut # (Auto) 7.84 H 7.32 (1.8-7.7) 10^3/uL BMP 10/19/25 10/20/25 04:15 04:48 Sodium 136 138 Potassium 4.8 4.6 Chloride 98 98 Carbon Dioxide 25 24 BUN 51 H 51 H Creatinine 3.0 H 2.9 H Glucose 233 H 196 H Calcium 8.5 8.5 Liver Function 10/19/25 10/20/25 Range/Units 04:15 04:48 Total Bilirubin 0.2 0.3 (0.15-1.2) mg/dL AST 20 20 (0-40) U/L ALT 10 12 (0-41) U/L Alkaline Phosphatase 223 H 215 H (40-130) U/L Albumin 3.6 3.6 (3.5-5.2) g/dL Blood Bank 10/19/25 05:42 Blood Type O Positive Rho(D) Type Rh positive Antibody Screen Negative Microbiology 10/17/25 13:00 Sputum Culture - Preliminary Sputum - Expectorated Sputum Yeast species Cardiac Studies: Echocardiogram 08/04/25 Echocardiogram Limited Views 09/04/25
[2025-10-20] MEDS: FUROsemide 10 mg/mL SDV 10mL 80 MG IVP ×2 (08:53→21:54)
--- NOTE | 2025-10-20 09:19 | P.PN_ITS ---
Subjective 2 Medications: Reviewed: Yes Vitals/I&O/Wt Last Vital Signs Temp 98.2 F 10/20/25 04:00 Pulse 88 10/20/25 08:30 Resp 16 10/20/25 08:30 BP 136/60 10/20/25 08:30 Pulse Ox 92 10/20/25 08:30 O2 Del Method Heated High Flow 10/20/25 08:00 O2 Flow Rate 60 10/20/25 08:00 FiO2 60 10/20/25 08:00 10/19/25 10/20/25 10/20/25 22:59 06:59 14:59 Intake Total 900 / 1680 610 / 2290 0 / 0 Balance 900 / -2120 610 / -1510 0 / 0 Weight last 48 hrs Weight 82.7 kg Weight 81.9 kg Weight 82.3 kg Data 10/20/25 04:48 10/20/25 04:48 Micro: Microbiology 10/17/25 13:00 Sputum Culture - Preliminary Sputum - Expectorated Sputum Yeast species A&P Assessment and plan 1. Healthcare-associated pneumonia: 2. ESRD needing dialysis: 3. Hypotension: 4. Acute respiratory failure with hypoxia: 5. Thrombocytopenia: 6. Hypomagnesemia: 7. COPD without exacerbation: 8. DM2 (diabetes mellitus, type 2): Plan: R/O Healthcare Associated Pneumonia Acute respiratory failure with hypoxia COPD w/exacerbation Lung mass w/ Mediastinal Adenopathy -FiO2 at 60 L/min 60%. Was 70% yesterday. Continue heated high flow - Consult pulmonary. -Etiology of acute hypoxic respiratory failure likely secondary to Eliquis and also possibly related to lung mass with mediastinal adenopathy. Also possible fluid overload, currently getting dialysis. Also possible COPD exacerbation ? Hx of pulmonary emboli 2nd and 3rd branches of lower lobes, lower extremity DVT: Pt S/P TAVR, On home medication Eliquis- was recently restarted at lower dose 2.5mg BID 2wk ago by PCP. Plt 80, Hold Eliquis ? Hx of Lung mass w/ Mediastinal Adenopathy(right upper lobe 6 cm in size), seen by Dr. Lezama during previous admission. Patient to follow up outpt w/ Dr. Alfredo at [place] for recommended bronchoscopy.- 09/21/25 ? 10/16 CXR: Mild improved aeration of pulmonary parenchyma right mid chest. However there is increasing opacity right lower chest that may represent pleural fluid and/or consolidation Reviewed CBC. ? MRSA swab reviewed, negative ? Bacterial, Legionella reviewed, negative ? Sputum cultures ordered, pending. Heavy yeast. ? Respiratory viral panel reviewed, negative ? Pulse oximetry, supplemental o2 to keep saturations > 92% ? RT on board ? IV Abx coverage: Cefepime 1gm IV q24h, Zyvox 600mg IV q12h ? Continue home inhalers and benzonatate ? PT/OT prior to discharge ESRD needing dialysis Attempt additional dialysis according to nephrology. Discussed with nephrology. Monitor blood pressures with risk of hypotension. Has been receiving albumin overnight, hold further infusions for now. Reviewed CBC, CMP. Intake and output. Discussed with special education case manager, per nephrology will need continued twice weekly dialysis after discharge. ? Baseline [employer] [place] usually 2.7, per at bedside ? Avoid nephrotoxic agents ? Strict I&Os, dly wts ? Fluid restriction 1L ? CMP dly Hypotension resolved. Monitor with dialysis. Continue midodrine. Hold further albumin infusions. Thrombocytopenia and anemia ? Plt down to 39, recently restarted on Eliquis 2wks ago per PCP. Hold additional Eliquis. Prior thrombocytopenia, although platelets usually 50s-60s, currently down to 39, worse than before. Requested peripheral smear. LDH, haptoglobin. LDH with only minimal elevation haptoglobin not low. Without evidence of hemolysis. Does have cirrhotic appearance of the liver, may be a possible cause of the thrombocytopenia. As well as anemia chronic disease with ESRD. No iron deficiency noted in August. ? DVT PE prophylaxis with SCD for now ? Occult stool ordered, pending- recent GI bleed 09/15/25 ? IVP Protonix 40 mg BID ? Monitor CBC Hypomagnesemia ?Received magnesium 2mg IV. Recheck magnesium. ? Monitor CMP dly Hypothyroidism ? TSH, ordered, pending. ? Continue home levothyroxine 112 mcg PO Hyperlipidemia ?Continue home atorvastatin 40mg p.o. dly DM2 Consistent carb diet ? Blood glucose monitoring, ACHS ? Low regimen sliding scale ? Hypoglycemia protocol Pulmonary HTN ? Continue home medication Adempas and opsumit ? Follows outpatient History of PE. Continue anticoagulation. Likely liver cirrhosis: Cirrhotic appearance of the liver on CT back in August. With noted anemia, thrombocytopenia. Chronic elevation of alkaline phosphatase. T. bili, AST, ALT normal. CODE STATUS: Full code GI prophylaxis: Protonix 40 mg IVP BID VTE prophylaxis: SCDs, home medication Eliquis on hold PDMP PDMP Reviewed: Not Reviewed Coding Level of Care Code Acute Code for Chg Fwd Diagnoses Healthcare-associated pneumonia J18.9 ESRD needing dialysis N18.6; Z99.2 Hypotension I95.9 Acute respiratory failure with hypoxia J96.01 Thrombocytopenia D69.6 Hypomagnesemia E83.42 COPD without exacerbation J44.9 DM2 (diabetes mellitus, type 2) E11.9
[2025-10-20] MEDS: heparin, porcine 1,000 unit/mL INJ 10 mL 10000 UNIT INTRACATH (09:54)
[2025-10-20] MEDS: lidocaine-epi 1% PF 1:200,000 30 mL SDV INJECTION (09:57)
--- NOTE | 2025-10-20 10:09 | P.OP_ITS ---
Operative Report Date of procedure: October 20, 2025 Pre-op diagnosis: Need for hemodialysis Post-op diagnosis: Same Post-op findings: Normal vascular anatomy in the left neck Procedure done: Insertion of left IJ tunneled dialysis catheter Implants: 27 cm cuff to tip dual-lumen dialysis catheter Pathology: None Surgeon: Wyatt Andrade MD Bank Secrecy Act Officer: CHANO OR STaff Estimated blood loss: 10 Brief History: This is a 70-year-old male who is admitted to the hospital for fluid overload, he has been receiving dialysis unfortunately yesterday his dialysis catheter got dislodged. He is here today for placement of a tunneled dialysis catheter. Procedure: Patient was brought into the OR, he was placed in a supine position, moderate anesthesia sedation was given. Timeout was conducted after the skin was prepped and draped in the usual sterile fashion. I then proceeded to identify the left IJ vein with ultrasound, I infiltrated local anesthesia on top of the vein. I then proceeded to cannulate the vein under direct ultrasound guidance using an 18-gauge needle, the needle tip was seen entering the vein and immediate return of blood was noted. A wire was advanced through the needle and the needle was removed. The position of the wire was verified with ultrasound and fluoroscopy. The wire was then fixed to the drapes. I then placed my attention to the chest, local anesthesia was infiltrated in the previously marked area on the chest and then a tract connecting the chest to the wire insertion site in the neck. I then proceeded to make a 0.5cm incision on the chest and a 0.5cm incision on the neck at the level of the wire insertion site. I then tunneled the catheter from the chest wound to the neck using the provider tunneler. the vein was then dilatated with serial sizes of dilatators under direct fluoro guidance. I then proceeded to insert an introducer with a peel-off sheath over the wire under direct fluoroscopic guidance. I then remove the wire and the introducer leaving the peel-off sheath in place. The catheter was then advanced through the peel-off sheath and the peel-off sheath was removed leaving the catheter in place. Fluoroscopy showed evidence of good catheter position. The catheter was tested and was working fine with good flow in both lumens. I then proceeded to fix the catheter with #2-0 nylon to the skin. I then closed the neck wound with #3-0 Vicryl. The catheter was tested once again and was working fine I then hep-Locked the catheter. Dermabond was applied over the wound and a sterile dressing was applied on top. At the end of the procedure all counts were correct, the patient tolerated well the procedure was transferred to the PACU in stable condition.
--- NOTE | 2025-10-20 10:21 | SC_ITS ---
WS: [id number] Exam: C-arm FL for CVA [id number] Date/Time of Exam: 10/20/2025 10:21 AM Reason For Exam: dialysis port DLP: Limited AP C arm image of the upper LEFT chest is submitted. The image depicts a double lumen dialysis catheter entering from the LEFT subclavian approach and probably ending near the expected region of the cavoatrial junction. No other significant finding on this limited study.
--- NOTE | 2025-10-20 10:30 | ANE.PACU2 ---
Inpatient post-anesthesia follow up: Airway intact: Yes Vital signs: Temperature 97.4 F Pulse Rate [Therap y Changed] 88 Pulse Rate [Curren t] 94 Pulse Rate 89 Respiratory Rate [ Therapy 18 Changed] Respiratory Rate [ Current] 21 Respiratory Rate 18 Blood Pressure 121/56 Pulse Oximetry [Th erapy 95 Changed] Pulse Oximetry [Cu rrent] 95 Pulse Oximetry 94 Oxygen Delivery Me thod Heated High Flow Oxygen Flow Rate [ Therapy 50 Changed] Oxygen Flow Rate [ Current] 60 Oxygen Flow Rate 50 Fraction of Inspir ed Oxygen [ 55 Therapy Changed] Fraction of Inspir ed Oxygen [ 60 Current] Fraction of Inspir ed Oxygen 55 Hydration adequate: Yes Nausea and vomiting: No Pain level: 1 Mental status: Baseline
--- NOTE | 2025-10-20 11:54 | P.PN_ITS ---
Subjective 2 Subjective: AWAKE, alert, family in room, Patient still requiring 60% FiO2. Explained to him several possibilities of why he could be requiring too much oxygen.At this point of time he wants to do everything possible. He wants to remain full code, He is also asking questions about his lung mass and would like to know what it is and would like to proceed with any kind of treatment that he may require Medications: Reviewed: Yes Vitals/I&O/Wt Last Vital Signs Temp 97.4 F L 10/20/25 09:00 Pulse 89 10/20/25 11:21 Resp 18 10/20/25 11:20 BP 121/56 10/20/25 09:00 Pulse Ox 95 10/20/25 11:20 O2 Del Method Heated High Flow 10/20/25 11:20 O2 Flow Rate 50 10/20/25 11:20 FiO2 55 10/20/25 11:20 10/19/25 10/20/25 10/20/25 22:59 06:59 14:59 Intake Total 900 / 1680 610 / 2290 0 / 0 Balance 900 / -2120 610 / -1510 0 / 0 Weight last 48 hrs Weight 82.7 kg Weight 81.9 kg Weight 82.3 kg Physical Exam 2 Narrative: Sitting up in the bedside, having breakfast. HHF cannula on. Const: COMMON NORMALS: patient oriented x3 and alert GENERAL APPEARANCE: c ooperative ORIENTATION/CONSCIOUSNESS: Yes awake HENMT: COMMON NORMALS: oropharynx normal Resp: COMMON NORMALS: normal respiratory effort AUSCULTATION: diminished lung sounds Cardio: COMMON NORMALS: regular rhythm, S1 normal heart sound present, S2 normal heart sound present and No murmurs present (Cardio) RHYTHM: regular rhythm HEART SOUNDS: S1 normal heart sound present and S2 normal heart sound present GI: COMMON NORMALS: Normal to inspection, nondistended, normoactive bowel sounds present, Soft to palpation and non-tender PALPATION: Yes Soft to palpation Extremity: COMMON NORMALS: no joint enlargement GENERAL: Yes edema (1+) Neuro: COMMON NORMALS: patient oriented x3 and moves all extremities S ENSORIUM/ORIENTATION: Yes alert Skin: COMMON NORMALS: no rashes or lesions noted GENERAL SKIN EXAM: no rashes or lesions noted Data 10/20/25 04:48 10/20/25 04:48 Micro: Microbiology 10/17/25 13:00 Sputum Culture - Preliminary Sputum - Expectorated Sputum Yeast species A&P Assessment and plan 1. Healthcare-associated pneumonia: 2. ESRD needing dialysis: 3. Hypotension: 4. Acute respiratory failure with hypoxia: 5. Thrombocytopenia: 6. Hypomagnesemia: 7. COPD without exacerbation: 8. DM2 (diabetes mellitus, type 2): Plan: R/O Healthcare Associated Pneumonia Acute respiratory failure with hypoxia COPD w/exacerbation Lung mass w/ Mediastinal Adenopathy -FiO2 at 60 L/min 60%. Was 70% yesterday. Continue heated high flow - Consult pulmonary. -Etiology of acute hypoxic respiratory failure likely secondary to Eliquis and also possibly related to lung mass with mediastinal adenopathy. Also possible fluid overload, currently getting dialysis. Also possible COPD exacerbation ? Hx of pulmonary emboli 2nd and 3rd branches of lower lobes, lower extremity DVT: Pt S/P TAVR, On home medication Eliquis- was recently restarted at lower dose 2.5mg BID 2wk ago by PCP. Plt 80, Hold Eliquis ? Hx of Lung mass w/ Mediastinal Adenopathy(right upper lobe 6 cm in size), seen by Dr. Lezama during previous admission. Patient to follow up outpt w/ Dr. Alfredo at [facility] for recommended bronchoscopy.- 09/21/25 ? 10/16 CXR: Mild improved aeration of pulmonary parenchyma right mid chest. However there is increasing opacity right lower chest that may represent pleural fluid and/or consolidation Reviewed CBC. ? MRSA swab reviewed, negative ? Bacterial, Legionella reviewed, negative ? Sputum cultures ordered, pending. Heavy yeast. ? Respiratory viral panel reviewed, negative ? Pulse oximetry, supplemental o2 to keep saturations > 92% ? RT on board ? IV Abx coverage: Cefepime 1gm IV q24h, Zyvox 600mg IV q12h ? Continue home inhalers and benzonatate ? PT/OT prior to discharge ESRD needing dialysis Attempt additional dialysis according to nephrology. Discussed with nephrology. Monitor blood pressures with risk of hypotension. Has been receiving albumin overnight, hold further infusions for now. Reviewed CBC, CMP. Intake and output. Discussed with onsite case manager, per nephrology will need continued twice weekly dialysis after discharge. ? 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 Avoid nephrotoxic agents ? Strict I&Os, dly wts ? Fluid restriction 1L ? Anion gap metabolic acidosis and creatinine fluctuating. Dialysis per nephrology. Hypotension resolved. Monitor with dialysis. Continue midodrine. Hold further albumin infusions. Thrombocytopenia and anemia ? Plt slightly improved to 60 from 39. Continue holding Eliquis however. - Has history of prior thrombocytopenia - Requested peripheral smear. LDH, haptoglobin. LDH with only minimal elevation haptoglobin not low. Without evidence of hemolysis. Does have cirrhotic appearance of the liver, may be a possible cause of the thrombocytopenia. As well as anemia chronic disease with ESRD. No iron deficiency noted in August. ? DVT PE prophylaxis with SCD for now ? Occult stool ordered, pending- recent GI bleed 09/15/25 Hypomagnesemia ?Received magnesium 2mg IV. Recheck magnesium. ? Monitor CMP dly Hypothyroidism ? TSH 2.53 ? Continue home levothyroxine 112 mcg PO Hyperlipidemia ?Continue home atorvastatin 40mg p.o. dly DM2 Consistent carb diet ? Blood glucose monitoring, ACHS ? Low regimen sliding scale ? Hypoglycemia protocol Pulmonary HTN ? Continue home medication Adempas and opsumit ? Follows outpatient History of PE. Continue anticoagulation. Likely liver cirrhosis: Cirrhotic appearance of the liver on CT back in August. With noted anemia, thrombocytopenia. Chronic elevation of alkaline phosphatase. T. bili, AST, ALT normal. CODE STATUS: Full code GI prophylaxis: Protonix 40 mg IVP BID VTE prophylaxis: SCDs, home medication Eliquis on hold PDMP PDMP Reviewed: Not Reviewed Attestations 2 Medical Necessity Statement*: Requiring 60% FiO2 High flow oxygen. Coding Level of Care Code Acute Code for Chg Fwd Diagnoses Healthcare-associated pneumonia J18.9 ESRD needing dialysis N18.6; Z99.2 Hypotension I95.9 Acute respiratory failure with hypoxia J96.01 Thrombocytopenia D69.6 Hypomagnesemia E83.42 COPD without exacerbation J44.9 DM2 (diabetes mellitus, type 2) E11.9
[2025-10-20] MEDS: pantoprazole 40 mg SDV IVP ×2 (11:57→22:02)
--- NOTE | 2025-10-20 13:55 | PC.NURSE ---
Patients new dialysis site oozing and bleeding, pressure dressing and surgicele added to site, notified surgeon, Dr. Nava.
[2025-10-20] MEDS: ondansetron 2 mg/ML SDV 2 mL 4 MG IVP (17:08)
[2025-10-20] MEDS: cefepime 1,000 mg SDV 1000 MG IVP (17:10)
[2025-10-20] MEDS: fluconazole premix 200 MG/100 ML PREMIX 100 MG IV (17:13)
--- NOTE | 2025-10-20 17:26 | P.PN_ITS ---
Subjective 2 Subjective: s/p ne tunnelled catheter placement Medications: Reviewed: Yes Vitals/I&O/Wt Last Vital Signs Temp 97.4 F L 10/20/25 09:00 Pulse 89 10/20/25 16:15 Resp 16 10/20/25 16:15 BP 125/56 10/20/25 16:15 Pulse Ox 94 10/20/25 16:15 O2 Del Method Heated High Flow 10/20/25 15:16 O2 Flow Rate 50 10/20/25 15:16 FiO2 55 10/20/25 15:16 10/20/25 10/20/25 10/20/25 06:59 14:59 22:59 Intake Total 610 / 2290 540 / 540 Output Total 15 Balance 610 / -1510 525 / 525 Weight last 48 hrs Weight 82.7 kg Weight 81.9 kg Weight 82.3 kg Physical Exam 2 Narrative: And is awake and alert, on 70 % oxy mask PERRLA S1-S2 regular rate and rhythm Lungs with bilateral crackles Abdomen soft nontender Extremities 3+ lower extremity edema Skin no rash Data 10/20/25 04:48 10/20/25 04:48 Micro: Microbiology 10/17/25 13:00 Sputum Culture - Final Sputum - Expectorated Sputum Madalyn knight A&P Assessment and plan 1. ESRD needing dialysis: Plan: 1. End-stage renal disease: HD was discontinued 2 weeks ago with possible renal recovery but patient presented with volume overload . Restarted hemodialysis HD tomorrow New tunnellec catheter placed today 2. Acute respiratory failure with hypoxia,HD as above 3. Acute on chronic respiratory failure: Multifactorial 4. Anemia: Will order JENNY and s/pPRBCs 5. History of pulmonary emboli 6. Hypotension, on midodrine Patient evaluated using audiovisual cart. Time spent 40 minutes PDMP PDMP Reviewed: Not Reviewed Attestations 2 Medical Necessity Statement*: per medicine Coding Level of Care Code Acute Code for Chg Fwd Diagnoses ESRD needing dialysis N18.6; Z99.2
--- NOTE | 2025-10-20 19:54 | PC.NURSE ---
Addendum entered by ANANYA Bashir 10/21/25 01:19: CBC collected and provider notified of downward trend in H&H gave orders to transfuse 1 unit PRBC. Order placed. See MAR Addendum entered by ANANYA Bashir 10/20/25 23:05: At approximately 2230 there was a small amount of oozing from the edges of pressure dressing with clots beginning to form. Pressure dressing reinforced on edges only. Addendum entered by ANANYA Bashir 10/20/25 22:19: Order placed for CBC to be collected at 2315 per verbal orders. See previous note Addendum entered by ANANYA Bashir 10/20/25 20:44: Site assessed prior to going to retrieve platelets and all gauze replaced at 1944 was saturated totally with leakage. Provider notified, dressing removed and replaced. Pressure held on site while another staff member went to get platelets from blood bank. to bedside and assessed the site. New pressure dressing replaced and sandbag place back on site. Patients vitals WNL, no c/o of worsening symptoms. Platelets started. gave verbal orders to draw a CBC 1 hour after platelets are transfused. Original Note: Surgical site still bleeding at shift change. Marked areas where there was oozing. 1944 replaced gauze around site as it had pulled away from dressing, replaced sandbag. Currently awaiting platelets.
--- NOTE | 2025-10-20 20:25 | PM.CONSULT ---
Providers/Reason For Consult Consulting Physician/Specialty*: Dr Alfred Lezama Reason for Consult*: Acute respiratory failure Attending Physician: Ambar Vyas MD Primary Care Provider: Patrick Nick MD History of Present Illness History of Present Illness 70 year old male with past medical history of pulmonary hypertension, status post TAVR, end-stage renal disease on dialysis, history of PE on Eliquis, COPD, lung mass with mediastinal adenopathy, chronic congestive heart failure initially on 09/04/2025 found to have non-STEMI, anemia, pulmonary emboli 2nd and 3rd branches of lower lobes, lower extremity DVT, A-fib, recent echo showed mild RV hypokinesis status post IVC filter gets readmitted to the hospital with increased shortness of breath and increased home oxygen use. He was found to be 20 lbs weight increased. Dialysis session has been on hold recently. Dialysis restarted 4 L removed since 2 days. He was started on cefepime and Zyvox for probable pneumonia blood cultures and sputum cultures ordered Since then patient has had hemodialysis catheter placed currently having some bleeding issues are noted but otherwise not complaining of any increased shortness of breath currently. Feels better after dialysis sessions. Medications/Allergies Home Medications ?Medication ?Instructions ?Recorded ?Confirmed ?Last Taken ?Type Cam boot to left #1 ea 05/15/23 10/16/25 08/19/25 Rx levothyroxine 112 mcg tablet 112 mcg PO DAILY 11/27/23 10/16/25 10/16/25 07:00 History riociguat 2.5 mg tablet (Adempas) 2.5 mg PO TID 11/27/23 10/16/25 10/16/25 08:00 History Diabetic shoes #1 ea 08/25/24 10/16/25 08/19/25 Rx CAM walker #1 ea 04/20/25 10/16/25 08/19/25 Rx acetaminophen 500 mg tablet 1,000 mg PO Q6H PRN Fever Or Pain 07/18/25 10/16/25 09/29/25 History (Tylenol Extra Strength) atorvastatin 40 mg tablet 40 mg PO DAILY 07/18/25 10/16/25 10/16/25 08:00 History macitentan 10 mg tablet (Opsumit) 10 mg PO DAILY 08/02/25 10/16/25 10/16/25 08:00 History insulin aspart U-100 100 unit/mL See Rx Instructions .Route 08/31/25 10/16/25 10/16/25 07:00 Rx (3 mL) subcutaneous pen (Novolog .COMPLEX #15 mL FlexPen U-100 Insulin aspart) oxygen 09/21/25 10/16/25 Unknown History benzonatate 100 mg capsule 100 mg PO TID 09/30/25 10/16/25 10/16/25 08:00 History pantoprazole 40 mg tablet,delayed 40 mg PO DAILY 09/30/25 10/16/25 10/15/25 08:00 History release apixaban 2.5 mg tablet (Eliquis) 2.5 mg PO BID 10/16/25 10/16/25 10/16/25 08:00 History azelastine 137 mcg (0.1 %) nasal 1 spray intranasal BID 10/16/25 10/16/25 10/16/25 08:00 History spray bumetanide 1 mg tablet 2 mg PO BID 10/16/25 10/16/25 10/16/25 08:00 History fluticasone propionate 50 50 mcg intranasal BID 10/16/25 10/16/25 10/16/25 08:00 History mcg/actuation nasal spray,suspension midodrine 5 mg tablet 5 mg PO TID 10/16/25 10/16/25 10/16/25 08:00 History ondansetron HCl 4 mg tablet 4 mg PO Q4H PRN Nausea And Vomiting 10/16/25 10/16/25 Unknown History tiotropium 2.5 mcg-olodaterol 2.5 2 puff inhalation DAILY #4 grams 10/19/25 Unknown Rx mcg/actuation mist for inhalation (Stiolto Respimat) Allergies Allergy/AdvReac Type Severity Reaction Status Date / Time No Known Allergies Allergy Verified 09/30/25 11:46 Current Medications Generic Name Dose Route Start Last Admin Trade Name Freq PRN Reason Stop Dose Admin Albuterol/Ipratropium 3 ml 10/16/25 16:00 10/20/25 15:06 Ipratropium-Albuterol 3 Ml Neb INHALATION 3 ml QID.RESPIRATORY CHUY Administration Albuterol/Ipratropium 3 ml 10/19/25 03:15 10/19/25 04:18 Ipratropium-Albuterol 3 Ml Neb INHALATION 3 ml Q4H PRN Administration SHORTNESS OF BREATH Apixaban 2.5 mg 10/17/25 12:30 10/18/25 04:09 Apixaban 2.5 Mg Tablet PO 2.5 mg On Hold: 10/18/25 07:45 BID CHUY Administration Atorvastatin Calcium 40 mg 10/17/25 05:00 10/20/25 04:23 Atorvastatin 40 Mg Tablet PO 40 mg DAILY CHUY Administration Benzonatate 100 mg 10/16/25 13:00 10/20/25 12:31 Benzonatate 100 Mg Capsule PO 100 mg TID CHUY Administration Budesonide 0.5 mg 10/18/25 11:25 10/20/25 07:59 Budesonide 0.5 Mg/2 Ml Neb INHALATION 0.5 mg BID.RESPIRATORY CHUY Administration Cefepime HCl 1,000 mg 10/16/25 16:15 10/20/25 17:10 Cefepime 1,000 Mg Sdv IVP 1,000 mg Q24H CHUY Administration Protocol Docusate Sodium 100 mg 10/16/25 17:00 10/20/25 17:09 Docusate Sodium 100 Mg Capsule PO 100 mg BID CHUY Administration Fluticasone Propionate 1 spray 10/16/25 17:00 10/20/25 17:12 Fluticasone Nasal [place] 16gm Btl INTRANASAL Not Given BID CHUY Furosemide 80 mg 10/18/25 09:00 10/20/25 08:53 Furosemide 10 Mg/Ml Sdv 10ml IVP 80 mg Q12H CHUY Administration Linezolid 600 mg in 300 mls @ 300 mls/hr 10/16/25 16:15 10/20/25 18:55 Zyvox Premix IV Infused Q12H CHUY Infusion Protocol Albumin Human 25 g in 100 mls @ 60 mls/hr 10/16/25 20:00 10/17/25 06:05 Albumin IV Infused On Hold: 10/17/25 08:02 TID CHUY Infusion Fluconazole 200 mg in 100 mls @ 100 mls/hr 10/18/25 15:00 10/20/25 18:55 Diflucan Premix IV Infused Q24H CHUY Infusion Insulin Human Lispro 0 unit 10/16/25 18:00 10/20/25 17:25 Insulin Lispro 100 Unit/1 Ml SUBCUT 8 unit WM&BEDTIME CHUY Administration Protocol Levothyroxine Sodium 112 mcg 10/17/25 05:00 10/20/25 04:23 Levothyroxine 112 Mcg Tablet PO 112 mcg DAILY CHUY Administration Methylprednisolone Sodium Succinate 20 mg 10/17/25 12:30 10/20/25 11:58 Methylprednisolone Sod Succ 40 Mg/Ml Inj IVP 20 mg Q8H CHUY Administration Midodrine 10 mg 10/16/25 18:00 10/20/25 12:31 Midodrine 5 Mg Tablet PO 10 mg TID CHUY Administration Non-Formulary Medication 2.5 mg 10/16/25 13:00 10/20/25 12:31 Riociguat [Adempas] PO 2.5 mg TID CHUY Administration Non-Formulary 1 each 10/17/25 05:00 10/20/25 04:18 Medication( PO 1 each Macitentan 10 Mg Tab DAILY CHUY Administration ) Ondansetron HCl 4 mg 10/16/25 10:48 10/20/25 17:08 Ondansetron 2 Mg/Ml Sdv 2 Ml IVP 4 mg Q8H PRN Administration vomiting, or N/V if npo Pantoprazole Sodium 40 mg 10/16/25 11:00 10/20/25 11:57 Pantoprazole 40 Mg Sdv IVP 40 mg Q12H CHUY Administration Sodium Chloride 1 spray 10/16/25 17:00 10/20/25 17:12 Saline Nasal [place] 44ml Btl NASAL Not Given BID CHUY PFSH Acute PFSH: Medical History COPD with chronic bronchitis Mediastinal lymphadenopathy Lung mass Pericardial effusion Tobacco abuse Anemia Diabetes Warfarin anticoagulation Chest pain History of pulmonary embolism Congestive heart failure History of nonmelanoma skin cancer Hypothalamic hypothyroidism Hypertension History of blood clots COPD (chronic obstructive pulmonary disease) History of pulmonary embolism Surgical History S/P TAVR (transcatheter aortic valve replacement) History of rotator cuff surgery Social History Smoking and tobacco/nicotine status: current every day tobacco/nicotine user Quit status (tobacco/nicotine): has quit using Year quit tobacco: 2024 Former quit date comment: a week ago Alcohol intake: never Substance/Drug Use: never Marital status: Life Partner Vitals/I&O/Wt Last Vital Signs Temp 97.4 F L 10/20/25 09:00 Pulse 89 10/20/25 16:15 Resp 16 10/20/25 16:15 BP 125/56 10/20/25 16:15 Pulse Ox 94 10/20/25 16:15 O2 Del Method Heated High Flow 10/20/25 15:16 O2 Flow Rate 50 10/20/25 15:16 FiO2 55 10/20/25 15:16 10/20/25 10/20/25 10/20/25 06:59 14:59 22:59 Intake Total 610 / 2290 540 / 540 640 / 1180 Output Total Balance 610 / -1510 525 / 525 640 / 1165 Weight last 48 hrs Weight 182 lb 5.156 oz Weight 180 lb 8.937 oz Weight 181 lb 7.047 oz Physical Exam Narrative: Per RN General: alert, NAD HEENT: EOMI Pulmonary: Diminished breath sounds bilaterally Cardiovascular: rrr, nl s1s2, Abdomen: soft, nt, nd, no r/g, Extremities: no edema Neurologic: grossly intact Agree with above exam Data 10/20/25 04:48 10/20/25 04:48 Micro: Microbiology 10/17/25 13:00 Sputum Culture - Final Sputum - Expectorated Sputum Madalyn knight A&P Assessment and plan 1. History of pulmonary embolism: 2. Acute dyspnea: 3. Acute hypoxemic respiratory failure: 4. Pulmonary emboli: Plan: Acute on chronic respiratory failure-most likely a combination of low volume volume mixed with pulmonary hypertension I agree with ongoing current dialysis. Wean off high flow nasal cannula as tolerated. Currently on 50 L 60% FiO2. Keep sats around 90% Chest x-ray reviewed from today 11/12 showing right pleural effusion with pulmonary haziness mixed with signs of postobstructive pneumonia Postobstructive pneumonia- Right lung: Present on admission .Madalyn knight going on sputum cultures-May be invasive pulm infection. Will get CT chest and perhaps need infectious disease on the case. Right pleural effusion status post thoracentesis 08/26/2025-nondiagnostic Lung mass with mediastinal adenopathy : Known lung mass from hospitalization. CT done 09/04/2025, reviewed by me personally and interpreted results shows a large mass in the right upper lobe 6 cm in size with mediastinal extension bilateral pleural effusions. With hilar and mediastinal lymphadenopathy. Also had recent PEs and in the left lower lobe. Message [place] team via patient portal to set up an appointment with Dr. Bajwa. Will request records from [facility] If Dr. Bajwa recommends bronchoscopy, proceed with their procedural team. Pulmonary hypertension : High procedural risk context noted due to pulmonary hypertension and current medications. He cannot tolerate any procedures currently Severe pulmonary hypertension - He follows up with Dr. Meyer at [place]. Records are not available at this time to review all of his meds but he does appear to be taking Opsumit 10 mg p.o. daily as well as Adempas 2.5 mg p.o. 3 times daily which has been continued here Recurrent bilateral PEs - On Eliquis. He is status post IVC filter The high probability of a clinically significant, sudden or life threatening deterioration of the patient's [Respiratory, cardiac and renal] system(s) required my full and direct attention, intervention and personal management. The critical care time is as shown. This time is in addition to time spent performing any reported procedures but includes the following: [x] Data and vital sign review and interpretation [x] Patient assessment, examination and intervention [x] Documentation [x] Medication orders and management Critical Care Time (min): 45 Telemedicine Consent Patient seen today via Telemedicine by agreement and consent of patient.? Telemedicine technology used during the visit includes audio and, as available, review of images.? The patient encounter is appropriate and reasonable under the circumstances given the patient?s particular presentation at this time.? The patient has been advised of the potential risks and limitations of this mode of treatment (including but not limited to the absence of in-person examination) and has agreed to be treated in a remote fashion in spite of them.? Any, and all, of the patient?s/patient?s family?s questions on this issue have been answered and I have made no promises or guarantees to the patient. PDMP PDMP Reviewed: Not Reviewed Coding Level of Care Code Critical Care >/= 30 minutes Diagnoses History of pulmonary embolism Z86.711 Acute dyspnea R06.00 Acute hypoxemic respiratory failure J96.01 Pulmonary emboli I26.99
--- NOTE | 2025-10-20 22:33 | PC.NURSE ---
CT ordered but currently attempting to stop patients bleeding from dialysis catheter site that was placed today. CT notified that patient receiving blood products at this time in an attempt to stop the bleeding and bleeding increases significantly if patient moves, even minor adjustments at this time. Will give update CT through the shift.
[2025-10-20 23:19] LABS: Hematocrit 21.8 % (37-53); Hemoglobin 6.90 g/dL (11.27-16.99); Mean Corpuscular HGB Conc 31.7 g/dL (30-55); Mean Corpuscular Hemoglobin 29.6 pg (27-33); Mean Corpuscular Volume 93.6 fl (82-101); Nucleated Red Blood Cells % 0 %; Platelet Count 105 10^3/cmm (157-399); Red Blood Count 2.33 10^6/uL (3.85-5.65); White Blood Count 8.55 10^3/uL (3.29-11.43)
[2025-10-21] VITALS (112 sets, daily range): BP systolic 91–144; BP diastolic 48–74; PULSE 85–118; RESP 14–35; TEMP 36.2–37.6; O2SAT 82–99; BMI 31.3
[2025-10-21] MEDS: methylPREDNISolone sod succ 40 mg/mL INJ 20 MG IVP ×3 (04:22→21:34)
--- NOTE | 2025-10-21 05:00 | CTR_ITS ---
PROCEDURE INFORMATION: Exam: CT Chest Without Contrast; Diagnostic Exam date and time: 10/21/2025 11:12 AM Age: 70 years old Clinical indication: Shortness of breath; Pneumonia; Additional info: Post obstructive pneumonia TECHNIQUE: Imaging protocol: Diagnostic computed tomography of the chest without contrast. Radiation optimization: All CT scans at this facility use at least one of these dose optimization techniques: automated exposure control; mA and/or kV adjustment per patient size (includes targeted exams where dose is matched to clinical indication); or iterative reconstruction. COMPARISON: [place] ang[place] [id number] 09/08/2025 4:48 AM RADIATION DOSE METRICS: Total DLP (mGy-cm): 553.08 FINDINGS: Lungs: See Mediastinal space finding. Pleural spaces: There are enlarging bilateral pleural effusions compared with 09/08/2025. The right pleural effusion is larger than the left. Heart: Status post aortic valve replacement. Coronary arteries: Prominent coronary artery calcifications are seen. Mediastinal space: A right hilar and mediastinal mass is again seen measuring approximately 6.5 cm AP dimension by 6.3 cm transverse dimension. There is adjacent collapse of the right upper lobe. Extension of the mass superiorly can not be entirely excluded. Additionally, there appears to be extension of the mass along the right lower lobe bronchi with partial collapse of the right lower lobe as well. There is some apparent soft tissue extension along the proximal extent of the right middle lobe bronchi. Lymph nodes: Prominent mediastinal lymphadenopathy is again noted similar to that present on 09/08/2025. Vasculature: Unremarkable. No aortic aneurysm. Bones/joints: Unremarkable. No acute fracture. Soft tissues: See Mediastinal space finding. CT/CT chest [facility] [id number] IMPRESSION: 1. 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 2. Enlarging bilateral pleural effusions, right larger than left. 3. Mediastinal lymphadenopathy again noted similar to that present on 09/08/2025.
[2025-10-21] MEDS: RIOCIGUAT 2.5 MG 2.5 EACH PO ×3 (05:41→21:35)
[2025-10-21] MEDS: saline nasal spray 44mL Btl 1 SPRAY NASAL (05:43)
[2025-10-21] MEDS: fluticasone nasal spray 16gm Btl 1 SPRAY INTRANASAL (05:43)
[2025-10-21] MEDS: linezolid premix 600 MG/300 ML PREMIX 300 MG IV ×2 (05:44→17:20)
[2025-10-21 06:11] LABS: Hematocrit 26.2 % (37-53); Hemoglobin 8.20 g/dL (11.27-16.99); Mean Corpuscular HGB Conc 31.3 g/dL (30-55); Mean Corpuscular Hemoglobin 29.4 pg (27-33); Mean Corpuscular Volume 93.9 fl (82-101); Nucleated Red Blood Cells % 0 %; Platelet Count 89 10^3/cmm (157-399); Red Blood Count 2.79 10^6/uL (3.85-5.65); White Blood Count 9.07 10^3/uL (3.29-11.43)
[2025-10-21 06:36] LABS: Alanine Aminotransferase 11 U/L (0-41); Albumin Level 3.6 g/dL (3.5-5.2); Alkaline Phosphatase 189 U/L (40-130); Aspartate Amino Transferase 17 U/L (0-40); Blood Urea Nitrogen 74 mg/dL (8-23); Calcium 8.4 mg/dL (8.5-10.5); Carbon Dioxide 23 mmol/L (22-29); Chloride 96 mmol/L (98-107); Globulin 2.5 g/dL (1.3-4.6); Glucose 166 mg/dL (65-115); Osmolality Calculated 304 mOsm/kg (285-295); Sodium 134 mmol/L (136-145); Total Protein 6.1 g/dL (6.6-8.7)
[2025-10-21 06:48] LABS: Anion Gap 19.8 (5-19); Potassium 4.8 mmol/L (3.5-5.1)
[2025-10-21] MEDS: ondansetron 2 mg/ML SDV 2 mL 4 MG IVP (08:29)
[2025-10-21] MEDS: FUROsemide 10 mg/mL SDV 10mL 80 MG IVP ×2 (08:30→21:35)
--- NOTE | 2025-10-21 08:44 | PM.CONSULT ---
Providers/Reason For Consult Attending Physician: Ambar Vyas MD Primary Care Provider: Patrick Nick MD History of Present Illness History of Present Illness Guy Wiseman is a 70 year old male Medications/Allergies Home Medications ?Medication ?Instructions ?Recorded ?Confirmed ?Last Taken ?Type Cam boot to left #1 ea 05/15/23 10/16/25 08/19/25 Rx levothyroxine 112 mcg tablet 112 mcg PO DAILY 11/27/23 10/16/25 10/16/25 07:00 History riociguat 2.5 mg tablet (Adempas) 2.5 mg PO TID 11/27/23 10/16/25 10/16/25 08:00 History Diabetic shoes #1 ea 08/25/24 10/16/25 08/19/25 Rx CAM walker #1 ea 04/20/25 10/16/25 08/19/25 Rx acetaminophen 500 mg tablet 1,000 mg PO Q6H PRN Fever Or Pain 07/18/25 10/16/25 09/29/25 History (Tylenol Extra Strength) atorvastatin 40 mg tablet 40 mg PO DAILY 07/18/25 10/16/25 10/16/25 08:00 History macitentan 10 mg tablet (Opsumit) 10 mg PO DAILY 08/02/25 10/16/25 10/16/25 08:00 History insulin aspart U-100 100 unit/mL See Rx Instructions .Route 08/31/25 10/16/25 10/16/25 07:00 Rx (3 mL) subcutaneous pen (Novolog .COMPLEX #15 mL FlexPen U-100 Insulin aspart) oxygen 09/21/25 10/16/25 Unknown History benzonatate 100 mg capsule 100 mg PO TID 09/30/25 10/16/25 10/16/25 08:00 History pantoprazole 40 mg tablet,delayed 40 mg PO DAILY 09/30/25 10/16/25 10/15/25 08:00 History release apixaban 2.5 mg tablet (Eliquis) 2.5 mg PO BID 10/16/25 10/16/25 10/16/25 08:00 History azelastine 137 mcg (0.1 %) nasal 1 spray intranasal BID 10/16/25 10/16/25 10/16/25 08:00 History spray bumetanide 1 mg tablet 2 mg PO BID 10/16/25 10/16/25 10/16/25 08:00 History fluticasone propionate 50 50 mcg intranasal BID 10/16/25 10/16/25 10/16/25 08:00 History mcg/actuation nasal spray,suspension midodrine 5 mg tablet 5 mg PO TID 10/16/25 10/16/25 10/16/25 08:00 History ondansetron HCl 4 mg tablet 4 mg PO Q4H PRN Nausea And Vomiting 10/16/25 10/16/25 Unknown History tiotropium 2.5 mcg-olodaterol 2.5 2 puff inhalation DAILY #4 grams 10/19/25 Unknown Rx mcg/actuation mist for inhalation (Stiolto Respimat) Allergies Allergy/AdvReac Type Severity Reaction Status Date / Time No Known Allergies Allergy Verified 09/30/25 11:46 Current Medications Generic Name Dose Route Start Last Admin Trade Name Freq PRN Reason Stop Dose Admin Albuterol/Ipratropium 3 ml 10/16/25 16:00 10/21/25 08:15 Ipratropium-Albuterol 3 Ml Neb INHALATION 3 ml QID.RESPIRATORY CHUY Administration Albuterol/Ipratropium 3 ml 10/19/25 03:15 10/19/25 04:18 Ipratropium-Albuterol 3 Ml Neb INHALATION 3 ml Q4H PRN Administration SHORTNESS OF BREATH Apixaban 2.5 mg 10/17/25 12:30 10/18/25 04:09 Apixaban 2.5 Mg Tablet PO 2.5 mg On Hold: 10/18/25 07:45 BID CHUY Administration Atorvastatin Calcium 40 mg 10/17/25 05:00 10/21/25 05:42 Atorvastatin 40 Mg Tablet PO 40 mg DAILY CHUY Administration Benzonatate 100 mg 10/16/25 13:00 10/21/25 05:42 Benzonatate 100 Mg Capsule PO 100 mg TID CHUY Administration Budesonide 0.5 mg 10/18/25 11:25 10/21/25 08:14 Budesonide 0.5 Mg/2 Ml Neb INHALATION 0.5 mg BID.RESPIRATORY CHUY Administration Cefepime HCl 1,000 mg 10/16/25 16:15 10/20/25 17:10 Cefepime 1,000 Mg Sdv IVP 1,000 mg Q24H CHUY Administration Protocol Docusate Sodium 100 mg 10/16/25 17:00 10/21/25 05:42 Docusate Sodium 100 Mg Capsule PO 100 mg BID CHUY Administration Fluticasone Propionate 1 spray 10/16/25 17:00 10/21/25 05:43 Fluticasone Nasal [place] 16gm Btl INTRANASAL 1 spray BID CHUY Administration Furosemide 80 mg 10/18/25 09:00 10/21/25 08:30 Furosemide 10 Mg/Ml Sdv 10ml IVP 80 mg Q12H CHUY Administration Linezolid 600 mg in 300 mls @ 300 mls/hr 10/16/25 16:15 10/21/25 06:53 Zyvox Premix IV Infused Q12H CHUY Infusion Protocol Albumin Human 25 g in 100 mls @ 60 mls/hr 10/16/25 20:00 10/17/25 06:05 Albumin IV Infused On Hold: 10/17/25 08:02 TID CHUY Infusion Fluconazole 200 mg in 100 mls @ 100 mls/hr 10/18/25 15:00 10/20/25 18:55 Diflucan Premix IV Infused Q24H CHUY Infusion Insulin Human Lispro 0 unit 10/16/25 18:00 10/21/25 07:45 Insulin Lispro 100 Unit/1 Ml SUBCUT 6 unit WM&BEDTIME CHUY Administration Protocol Levothyroxine Sodium 112 mcg 10/17/25 05:00 10/21/25 05:42 Levothyroxine 112 Mcg Tablet PO 112 mcg DAILY CHUY Administration Methylprednisolone Sodium Succinate 20 mg 10/17/25 12:30 10/21/25 04:22 Methylprednisolone Sod Succ 40 Mg/Ml Inj IVP 20 mg Q8H CHUY Administration Midodrine 10 mg 10/16/25 18:00 10/21/25 05:42 Midodrine 5 Mg Tablet PO 10 mg TID CHUY Administration Non-Formulary Medication 2.5 mg 10/16/25 13:00 10/21/25 05:41 Riociguat [Adempas] PO 2.5 mg TID CHUY Administration Non-Formulary 1 each 10/17/25 05:00 10/21/25 05:40 Medication( PO 1 each Macitentan 10 Mg Tab DAILY CHUY Administration ) Ondansetron HCl 4 mg 10/16/25 10:48 10/21/25 08:29 Ondansetron 2 Mg/Ml Sdv 2 Ml IVP 4 mg Q8H PRN Administration vomiting, or N/V if npo Pantoprazole Sodium 40 mg 10/16/25 11:00 10/20/25 22:02 Pantoprazole 40 Mg Sdv IVP 40 mg Q12H CHUY Administration Sodium Chloride 1 spray 10/16/25 17:00 10/21/25 05:43 Saline Nasal [place] 44ml Btl NASAL 1 spray BID CHUY Administration Sodium Chloride 50 ml 10/21/25 01:18 10/21/25 01:35 Sodium Chloride 0.9% 100 Ml Bag IV 10/22/25 01:18 50 ml PRN PRN Administration Blood transfusion prime and flush PFSH Acute PFSH: Medical History COPD with chronic bronchitis Mediastinal lymphadenopathy Lung mass Pericardial effusion Tobacco abuse Anemia Diabetes Warfarin anticoagulation Chest pain History of pulmonary embolism Congestive heart failure History of nonmelanoma skin cancer Hypothalamic hypothyroidism Hypertension History of blood clots COPD (chronic obstructive pulmonary disease) History of pulmonary embolism Surgical History S/P TAVR (transcatheter aortic valve replacement) History of rotator cuff surgery Social History Smoking and tobacco/nicotine status: current every day tobacco/nicotine user Quit status (tobacco/nicotine): has quit using Year quit tobacco: 2024 Former quit date comment: a week ago Alcohol intake: never Substance/Drug Use: never Marital status: Life Partner Vitals/I&O/Wt Last Vital Signs Temp 97.2 F L 10/21/25 08:30 Pulse 97 10/21/25 08:30 Resp 22 H 10/21/25 08:30 BP 140/62 10/21/25 08:30 Pulse Ox 94 10/21/25 08:30 O2 Del Method Heated High Flow 10/21/25 08:00 O2 Flow Rate 50 10/21/25 08:00 FiO2 70 10/21/25 08:00 10/20/25 10/21/25 10/21/25 22:59 06:59 14:59 Intake Total 881 / 1421 700 / 2121 240 / 240 Output Total 200 / 215 Balance 881 / 1406 500 / 1906 240 / 240 Weight last 48 hrs Weight 182 lb 8 oz Weight 182 lb 5.156 oz Weight 180 lb 8.937 oz Data 10/21/25 05:50 10/21/25 05:50 Micro: Microbiology 10/17/25 13:00 Sputum Culture - Final Sputum - Expectorated Sputum Madalyn knight A&P PDMP PDMP Reviewed: Not Reviewed Coding Level of Care Code Acute Code for Chg Fwd
--- NOTE | 2025-10-21 08:44 | PM.PN ---
Subjective Subjective: 70 year old male with past medical history of pulmonary hypertension, status post TAVR, end-stage renal disease on dialysis, history of PE on Eliquis, COPD, lung mass with mediastinal adenopathy, chronic congestive heart failure initially on 09/04/2025 found to have non-STEMI, anemia, pulmonary emboli 2nd and 3rd branches of lower lobes, lower extremity DVT, A-fib, recent echo showed mild RV hypokinesis status post IVC filter gets readmitted to the hospital with increased shortness of breath and increased home oxygen use. He was found to be 20 lbs weight increased. Dialysis session has been on hold recently. Dialysis restarted 4 L removed since 2 days. He was started on cefepime and Zyvox for probable pneumonia blood cultures and sputum cultures ordered Since then patient has had hemodialysis catheter placed currently having some bleeding issues are noted but otherwise not complaining of any increased shortness of breath currently. Feels better after dialysis sessions. 10/21/25 feels stable. on HFNC 50L/70% fio, slightly worse Got blood produts to control his bleed since yesterday Vitals/I&O/Wt Last Vital Signs Temp 97.2 F L 10/21/25 08:30 Pulse 97 10/21/25 08:30 Resp 22 H 10/21/25 08:30 BP 140/62 10/21/25 08:30 Pulse Ox 94 10/21/25 08:30 O2 Del Method Heated High Flow 10/21/25 08:00 O2 Flow Rate 50 10/21/25 08:00 FiO2 70 10/21/25 08:00 10/20/25 10/21/25 10/21/25 22:59 06:59 14:59 Intake Total 881 / 1421 700 / 2121 240 / 240 Output Total 200 / 215 Balance 881 / 1406 500 / 1906 240 / 240 Weight last 48 hrs Weight 182 lb 8 oz Weight 182 lb 5.156 oz Weight 180 lb 8.937 oz Physical Exam Narrative: Per RN General: alert, NAD HEENT: EOMI Pulmonary: Diminished breath sounds bilaterally Cardiovascular: rrr, nl s1s2, Abdomen: soft, nt, nd, no r/g, Extremities: no edema Neurologic: grossly intact Agree with above exam Data 10/21/25 05:50 10/21/25 05:50 Micro: Microbiology 10/17/25 13:00 Sputum Culture - Final Sputum - Expectorated Sputum Madalyn knight A&P Assessment and plan 1. History of pulmonary embolism: 2. Acute dyspnea: 3. Acute hypoxemic respiratory failure: 4. Pulmonary emboli: Plan: Acute on chronic respiratory failure-most likely a combination of low volume volume mixed with pulmonary hypertension Dialysis pending again today Wean off high flow nasal cannula as tolerated. Currently on 50 L 70% FiO2. Keep sats around 90% Chest x-ray reviewed from today 11/12 showing right pleural effusion with pulmonary haziness mixed with signs of postobstructive pneumonia Postobstructive pneumonia- Right lung: Present on admission .Madalyn hodgezohreh going on sputum cultures-May be invasive pulm infection. Continue flucanozole Mediastinal lymphadenopathy and right hilar and mediastinal mass There appears to be enlargement of the right hilar and mediastinal mass with some extension along the primary bronchi of the right upper, middle and lower lobes causing postobstructive atelectasis and partial collapse of the right upper and lower lobes. -I reviewed the CT myself, interpretted findings independently Right pleural effusion status post thoracentesis 08/26/2025-nondiagnostic Will need repeat thoracentesis- will defer until he is more stable Lung mass with mediastinal adenopathy : Known lung mass from hospitalization. CT done 09/04/2025, reviewed by me personally and interpreted results shows a large mass in the right upper lobe 6 cm in size with mediastinal extension bilateral pleural effusions. With hilar and mediastinal lymphadenopathy. Also had recent PEs and in the left lower lobe. Message [place] team via patient portal to set up an appointment with Dr. Bajwa. Will request records from [facility] If Dr. Bajwa recommends bronchoscopy, proceed with their procedural team. Pulmonary hypertension : High procedural risk context noted due to pulmonary hypertension and current medications. He cannot tolerate any procedures currently Severe pulmonary hypertension - He follows up with Dr. Meyer at [place]. Records are not available at this time to review all of his meds but he does appear to be taking Opsumit 10 mg p.o. daily as well as Adempas 2.5 mg p.o. 3 times daily which has been continued here Recurrent bilateral PEs - On Eliquis. He is status post IVC filter May stop if his bleeding gets worse Bleeding from HD catheter insertion site Platelets, surgiseeal applied, will get plasma Keep hb above 8 The high probability of a clinically significant, sudden or life threatening deterioration of the patient's [Respiratory, cardiac and renal] system(s) required my full and direct attention, intervention and personal management. The critical care time is as shown. This time is in addition to time spent performing any reported procedures but includes the following: [x] Data and vital sign review and interpretation [x] Patient assessment, examination and intervention [x] Documentation [x] Medication orders and management Critical Care Time (min): 45 Telemedicine Consent Patient seen today via Telemedicine by agreement and consent of patient.? Telemedicine technology used during the visit includes audio and, as available, review of images.? The patient encounter is appropriate and reasonable under the circumstances given the patient?s particular presentation at this time.? The patient has been advised of the potential risks and limitations of this mode of treatment (including but not limited to the absence of in-person examination) and has agreed to be treated in a remote fashion in spite of them.? Any, and all, of the patient?s/patient?s family?s questions on this issue have been answered and I have made no promises or guarantees to the patient. PDMP PDMP Reviewed: Not Reviewed Attestations Medical Necessity Statement*: on HFNC with multiple medical problems Coding Level of Care Code Critical Care >/= 30 minutes Diagnoses History of pulmonary embolism Z86.711 Acute dyspnea R06.00 Acute hypoxemic respiratory failure J96.01 Pulmonary emboli I26.99
--- NOTE | 2025-10-21 09:28 | PC.SOCIAL ---
IMM Update pg 2 of IMM Updated and reviewed w/ patient. Copy provided and copy dated, initialed and placed in chart.
--- NOTE | 2025-10-21 11:22 | P.PN_ITS ---
Subjective 2 Subjective: Patient doing well after left IJ tunneled dialysis catheter placement. He did have oozing from the insertion site, this disease expected in the setting of coagulopathy. He received a unit of platelets and pressure dressing with good control Vitals/I&O/Wt Last Vital Signs Temp 97.2 F L 10/21/25 08:30 Pulse 97 10/21/25 08:30 Resp 22 H 10/21/25 08:30 BP 140/62 10/21/25 08:30 Pulse Ox 94 10/21/25 08:30 O2 Del Method Heated High Flow 10/21/25 08:00 O2 Flow Rate 50 10/21/25 08:00 FiO2 70 10/21/25 08:00 10/20/25 10/21/25 10/21/25 22:59 06:59 14:59 Intake Total 881 / 1421 700 / 2121 240 / 240 Output Total 200 / 215 Balance 881 / 1406 500 / 1906 240 / 240 Weight last 48 hrs Weight 182 lb 8 oz Weight 182 lb 5.156 oz Physical Exam 2 Narrative: dialysis catheter in good position cover with a compressive dressing. Data 10/21/25 05:50 10/21/25 05:50 Micro: Microbiology 10/16/25 10:31 Blood Culture - Final Blood NO GROWTH AFTER 5 DAYS 10/16/25 09:57 Blood Culture - Final Blood NO GROWTH AFTER 5 DAYS 10/17/25 13:00 Sputum Culture - Final Sputum - Expectorated Sputum Madalyn knight A&P Assessment and plan 1. End stage renal disease on dialysis: Plan: Good progression from the surgical standpoint. Compressive dressing can be removed later today when he is receiving dialysis. Other than that no additional interventions expected from the surgical standpoint. PDMP PDMP Reviewed: Not Reviewed Attestations 2 Medical Necessity Statement*: Per medical team, Coding Level of Care Code Acute Code for [facility] Fwd Diagnoses End stage renal disease on dialysis N18.6; Z99.2
[2025-10-21] MEDS: pantoprazole 40 mg SDV IVP ×2 (12:00→23:50)
--- NOTE | 2025-10-21 12:02 | PC.SOCIAL ---
IMM Update pg 2 of IMM Updated and reviewed w/ patient. Copy provided and copy dated, initialed and placed in chart.
--- NOTE | 2025-10-21 13:42 | P.PN_ITS ---
Subjective 2 Subjective: Patient doing well after left IJ tunneled dialysis catheter placement. He did have oozing from the insertion site, this disease expected in the setting of coagulopathy. He received a unit of platelets and pressure dressing with good control 10/21 anemia thrombocytopenia improving, possibly related to blood loss versus malignancy. Continue to monitor. Continue holding Eliquis for now. Patient remains on high FiO2, however denies any symptoms Medications: Reviewed: Yes Vitals/I&O/Wt Last Vital Signs Temp 97.2 F L 10/21/25 08:30 Pulse 92 10/21/25 12:00 Resp 18 10/21/25 12:00 BP 116/54 10/21/25 12:00 Pulse Ox 92 10/21/25 12:00 O2 Del Method Heated High Flow 10/21/25 11:24 O2 Flow Rate 50 10/21/25 11:24 FiO2 50 10/21/25 11:24 10/20/25 10/21/25 10/21/25 22:59 06:59 14:59 Intake Total 881 / 1421 700 / 2121 480 / 480 Output Total 200 / 215 Balance 881 / 1406 500 / 1906 480 / 480 Weight last 48 hrs Weight 82.781 kg Weight 82.7 kg Physical Exam 2 Narrative: Sitting up in the bedside, having breakfast. HHF cannula on. Const: COMMON NORMALS: patient oriented x3 and alert GENERAL APPEARANCE: c ooperative ORIENTATION/CONSCIOUSNESS: Yes awake HENMT: COMMON NORMALS: oropharynx normal Resp: COMMON NORMALS: normal respiratory effort AUSCULTATION: diminished lung sounds Cardio: COMMON NORMALS: regular rhythm, S1 normal heart sound present, S2 normal heart sound present and No murmurs present (Cardio) RHYTHM: regular rhythm HEART SOUNDS: S1 normal heart sound present and S2 normal heart sound present GI: COMMON NORMALS: Normal to inspection, nondistended, normoactive bowel sounds present, Soft to palpation and non-tender PALPATION: Yes Soft to palpation Extremity: COMMON NORMALS: no joint enlargement GENERAL: Yes edema (1+) Neuro: COMMON NORMALS: patient oriented x3 and moves all extremities S ENSORIUM/ORIENTATION: Yes alert Skin: COMMON NORMALS: no rashes or lesions noted GENERAL SKIN EXAM: no rashes or lesions noted Data 10/21/25 05:50 10/21/25 05:50 Micro: Microbiology 10/16/25 10:31 Blood Culture - Final Blood NO GROWTH AFTER 5 DAYS 10/16/25 09:57 Blood Culture - Final Blood NO GROWTH AFTER 5 DAYS 10/17/25 13:00 Sputum Culture - Final Sputum - Expectorated Sputum Madalyn hogdekylah A&P Assessment and plan 1. Healthcare-associated pneumonia: 2. ESRD needing dialysis: 3. Hypotension: 4. Acute respiratory failure with hypoxia: 5. Thrombocytopenia: 6. Hypomagnesemia: 7. COPD without exacerbation: 8. DM2 (diabetes mellitus, type 2): Plan: R/O Healthcare Associated Pneumonia Acute respiratory failure with hypoxia COPD w/exacerbation Lung mass w/ Mediastinal Adenopathy -FiO2 at 50 L/min, 50% FiO2 continue heated high flow -Pulmonary following and recommending follow-up with his outpatient pulmonary AT [facility] . -Etiology of acute hypoxic respiratory failure likely secondary to volume overload and also possibly related to lung mass with mediastinal adenopathy, and chronic thromboembolism resulting in pulmonary hypertension- also possible fluid overload, currently getting dialysis. Also possible COPD exacerbation ? Hx of pulmonary emboli 2nd and 3rd branches of lower lobes, lower extremity DVT: Pt S/P TAVR, On home medication Eliquis- was recently restarted at lower dose 2.5mg BID 2wk ago by PCP. Plt 80, Hold Eliquis ? Hx of Lung mass w/ Mediastinal Adenopathy(right upper lobe 6 cm in size), seen by Dr. Lezama during previous admission. Patient to follow up outpt w/ Dr. Alfredo at [place] for recommended bronchoscopy.- 09/21/25 ? 10/16 CXR: Mild improved aeration of pulmonary parenchyma right mid chest. However there is increasing opacity right lower chest that may represent pleural fluid and/or consolidation Reviewed CBC. ? MRSA swab reviewed, negative ? Bacterial, Legionella reviewed, negative ? Sputum cultures ordered, pending. Heavy yeast. ? Respiratory viral panel reviewed, negative ? Pulse oximetry, supplemental o2 to keep saturations > 92% ? RT on board ? IV Abx coverage: Cefepime 1gm IV q24h, Zyvox 600mg IV q12h ? Continue home inhalers and benzonatate ? PT/OT prior to discharge ESRD needing dialysis Attempt additional dialysis according to nephrology. Discussed with nephrology. Monitor blood pressures with risk of hypotension. Has been receiving albumin overnight, hold further infusions for now. Reviewed CBC, CMP. Intake and output. Discussed with case management associate, per nephrology will need continued twice weekly dialysis after discharge. ? 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 Avoid nephrotoxic agents ? Strict I&Os, dly wts ? Fluid restriction 1L ? Anion gap metabolic acidosis and creatinine fluctuating. Dialysis per nephrology. Hypotension resolved. Monitor with dialysis. Continue midodrine. Hold further albumin infusions. Thrombocytopenia and anemia ?Platelets improving to 89, patient did receive platelet transfusion. Continue holding Eliquis for now. - Has history of prior thrombocytopenia - Requested peripheral smear. LDH, haptoglobin. LDH with only minimal elevation haptoglobin not low. Without evidence of hemolysis. Does have cirrhotic appearance of the liver, may be a possible cause of the thrombocytopenia. As well as anemia chronic disease with ESRD. No iron deficiency noted in August. ? DVT PE prophylaxis with SCD for now ? Occult stool ordered, pending- recent GI bleed 09/15/25 - Discussed with surgery and given high oxygen requirements, plan to wait for any EGD colonoscopy until he becomes more stable can be done as outpatient. Hypomagnesemia ?Received magnesium 2mg IV. Recheck magnesium. ? Monitor CMP dly Hypothyroidism ? TSH 2.53 ? Continue home levothyroxine 112 mcg PO Hyperlipidemia ?Continue home atorvastatin 40mg p.o. dly DM2 Consistent carb diet ? Blood glucose monitoring, ACHS ? Low regimen sliding scale ? Hypoglycemia protocol Pulmonary HTN ? Continue home medication Adempas and opsumit ? Follows outpatient History of PE. Continue anticoagulation. Likely liver cirrhosis: Cirrhotic appearance of the liver on CT back in August. With noted anemia, thrombocytopenia. Chronic elevation of alkaline phosphatase. T. bili, AST, ALT normal. CODE STATUS: Full code GI prophylaxis: Protonix 40 mg IVP BID VTE prophylaxis: SCDs, home medication Eliquis on hold PDMP PDMP Reviewed: Not Reviewed Attestations 2 Medical Necessity Statement*: No plans for EGD colonoscopy while in house. Will attempt to restart Eliquis once hemoglobin and platelet counts more stable. And platelet above 100,000. Likely tomorrow. Otherwise can start the paperwork for transitioning to LTAC, discussed with case management Coding Level of Care Code Acute Code for [facility] Fwd Diagnoses Healthcare-associated pneumonia J18.9 ESRD needing dialysis N18.6; Z99.2 Hypotension I95.9 Acute respiratory failure with hypoxia J96.01 Thrombocytopenia D69.6 Hypomagnesemia E83.42 COPD without exacerbation J44.9 DM2 (diabetes mellitus, type 2) E11.9
[2025-10-21] MEDS: fluconazole premix 200 MG/100 ML PREMIX 100 MG IV (14:25)
--- NOTE | 2025-10-21 14:51 | P.PN_ITS ---
Subjective 2 Subjective: no new c/o Medications: Reviewed: Yes Vitals/I&O/Wt Last Vital Signs Temp 97.2 F L 10/21/25 08:30 Pulse 92 10/21/25 12:00 Resp 18 10/21/25 12:00 BP 116/54 10/21/25 12:00 Pulse Ox 92 10/21/25 12:00 O2 Del Method Heated High Flow 10/21/25 11:24 O2 Flow Rate 50 10/21/25 11:24 FiO2 50 10/21/25 11:24 10/20/25 10/21/25 10/21/25 22:59 06:59 14:59 Intake Total 881 / 1421 700 / 2121 480 / 480 Output Total 200 / 215 Balance 881 / 1406 500 / 1906 480 / 480 Weight last 48 hrs Weight 82.781 kg Weight 82.7 kg Physical Exam 2 Narrative: And is awake and alert, PERRLA S1-S2 regular rate and rhythm Lungs with bilateral crackles Abdomen soft nontender Extremities 3+ lower extremity edema Skin no rash Data 10/21/25 05:50 10/21/25 05:50 Micro: Microbiology 10/16/25 10:31 Blood Culture - Final Blood NO GROWTH AFTER 5 DAYS 10/16/25 09:57 Blood Culture - Final Blood NO GROWTH AFTER 5 DAYS 10/17/25 13:00 Sputum Culture - Final Sputum - Expectorated Sputum Madalyn knight A&P Assessment and plan 1. ESRD needing dialysis: Plan: 1. End-stage renal disease: HD was discontinued 2 weeks ago with possible renal recovery but patient presented with volume overload . Restarted hemodialysis HD today New tunnellec catheter placed 2. Acute respiratory failure with hypoxia,HD as above 3. Acute on chronic respiratory failure: Multifactorial 4. Anemia: Will order JENNY and s/pPRBCs 5. History of pulmonary emboli 6. Hypotension, on midodrine Patient evaluated using audiovisual cart. Time spent 40 minutes PDMP PDMP Reviewed: Not Reviewed Attestations 2 Medical Necessity Statement*: per popeye Coding Level of Care Code Acute Code for [facility] Fwd Diagnoses ESRD needing dialysis N18.6; Z99.2
[2025-10-21] MEDS: cefepime 1,000 mg SDV 1000 MG IVP (16:44)
[2025-10-22] VITALS (104 sets, daily range): BP systolic 107–139; BP diastolic 48–104; PULSE 91–109; RESP 18–38; TEMP 37.1–37.3; O2SAT 83–96
[2025-10-22] MEDS: fluticasone nasal spray 16gm Btl 1 SPRAY INTRANASAL ×2 (04:15→17:20)
[2025-10-22] MEDS: methylPREDNISolone sod succ 40 mg/mL INJ 20 MG IVP ×3 (04:15→21:09)
[2025-10-22] MEDS: saline nasal spray 44mL Btl 1 SPRAY NASAL ×2 (04:16→17:20)
[2025-10-22] MEDS: RIOCIGUAT 2.5 MG 2.5 EACH PO ×3 (04:16→21:09)
[2025-10-22] MEDS: linezolid premix 600 MG/300 ML PREMIX 300 MG IV ×2 (04:17→17:17)
[2025-10-22 06:32] LABS: Hematocrit 24.1 % (37-53); Hemoglobin 7.90 g/dL (11.27-16.99); Mean Corpuscular HGB Conc 32.8 g/dL (30-55); Mean Corpuscular Hemoglobin 29.8 pg (27-33); Mean Corpuscular Volume 90.9 fl (82-101); Nucleated Red Blood Cells % 0 %; Platelet Count 61 10^3/cmm (157-399); Red Blood Count 2.65 10^6/uL (3.85-5.65); White Blood Count 8.39 10^3/uL (3.29-11.43)
[2025-10-22 07:29] LABS: Alanine Aminotransferase 13 U/L (0-41); Albumin Level 3.6 g/dL (3.5-5.2); Alkaline Phosphatase 198 U/L (40-130); Anion Gap 19.4 (5-19); Aspartate Amino Transferase 22 U/L (0-40); Blood Urea Nitrogen 59 mg/dL (8-23); Calcium 8.2 mg/dL (8.5-10.5); Carbon Dioxide 24 mmol/L (22-29); Chloride 96 mmol/L (98-107); Globulin 2.2 g/dL (1.3-4.6); Glucose 298 mg/dL (65-115); Magnesium 1.9 mg/dL (1.7-2.3); Osmolality Calculated 308 mOsm/kg (285-295); Potassium 4.4 mmol/L (3.5-5.1); Sodium 135 mmol/L (136-145); Total Protein 5.8 g/dL (6.6-8.7)
--- NOTE | 2025-10-22 08:34 | PM.PN ---
Subjective Subjective: 70 year old male with past medical history of pulmonary hypertension, status post TAVR, end-stage renal disease on dialysis, history of PE on Eliquis, COPD, lung mass with mediastinal adenopathy, chronic congestive heart failure initially on 09/04/2025 found to have non-STEMI, anemia, pulmonary emboli 2nd and 3rd branches of lower lobes, lower extremity DVT, A-fib, recent echo showed mild RV hypokinesis status post IVC filter gets readmitted to the hospital with increased shortness of breath and increased home oxygen use. He was found to be 20 lbs weight increased. Dialysis session has been on hold recently. Dialysis restarted 4 L removed since 2 days. He was started on cefepime and Zyvox for probable pneumonia blood cultures and sputum cultures ordered Since then patient has had hemodialysis catheter placed currently having some bleeding issues are noted but otherwise not complaining of any increased shortness of breath currently. Feels better after dialysis sessions. 10/21/25 feels stable. on HFNC 50L/70% fio, slightly worse Got blood produts to control his bleed since yesterday 10/22/25 nausea+ vomiting. No blood products given overnight. Bleeding stable. Vitals/I&O/Wt Last Vital Signs Temp 98.7 F 10/22/25 04:00 Pulse 98 10/22/25 07:30 Resp 22 H 10/22/25 07:30 BP 122/57 10/22/25 04:00 Pulse Ox 93 10/22/25 07:30 O2 Del Method Heated High Flow 10/22/25 07:29 O2 Flow Rate 50 10/22/25 07:30 FiO2 50 10/22/25 07:30 10/21/25 10/22/25 10/22/25 22:59 06:59 14:59 Intake Total 1380 / 1860 300 / 2160 Output Total 3500 / 3500 300 / 3800 Balance -2120 / -1640 0 / -1640 Weight last 48 hrs Weight 2.787 oz Weight 179 lb 10.828 oz Weight 182 lb 8 oz Physical Exam Narrative: Per RN General: alert, NAD HEENT: EOMI Pulmonary: Diminished breath sounds bilaterally Cardiovascular: rrr, nl s1s2, Abdomen: soft, nt, nd, no r/g, Extremities: no edema Neurologic: grossly intact Agree with above exam Data 10/22/25 05:52 10/22/25 05:52 Micro: Microbiology 10/22/25 00:08 Occult Blood (FIT) - Final Stool - Stool Aspirate 10/16/25 10:31 Blood Culture - Final Blood NO GROWTH AFTER 5 DAYS 10/16/25 09:57 Blood Culture - Final Blood NO GROWTH AFTER 5 DAYS A&P Assessment and plan 1. History of pulmonary embolism: 2. Acute dyspnea: 3. Acute hypoxemic respiratory failure: 4. Pulmonary emboli: Plan: Acute on chronic respiratory failure-most likely a combination of low volume volume mixed with pulmonary hypertension Dialysis today Wean off high flow nasal cannula as tolerated. Currently on 50 L 70% FiO2. Keep sats around 90% Reviewed CT scan done today. Shows right-sided pleural effusion. Discussed case with Dr. Vyas will plan thoracentesis after stopping Eliquis. May be malignant pleural effusion Patient is a high risk for intubation, I discussed with him goals of care he understands he might deteriorate and get intubated. He still wants. Knowing he is high risk of cardiac arrest considering his underlying pulmonary hypertension and risk of cardiac arrest being very high. Postobstructive pneumonia- Right lung: Present on admission .Madalyn knight going on sputum cultures-May be invasive pulm infection. Continue flucanozole Mediastinal lymphadenopathy and right hilar and mediastinal mass There appears to be enlargement of the right hilar and mediastinal mass with some extension along the primary bronchi of the right upper, middle and lower lobes causing postobstructive atelectasis and partial collapse of the right upper and lower lobes. -I reviewed the CT myself, interpretted findings independently Right pleural effusion status post thoracentesis 08/26/2025-nondiagnostic Reviewed CT scan done today and interpreted findings independently. Shows right-sided pleural effusion. Discussed case with Dr. Vyas will plan thoracentesis after stopping Eliquis. May be malignant pleural effusion Lung mass with mediastinal adenopathy : Known lung mass from hospitalization. CT done 09/04/2025, reviewed by me personally and interpreted results shows a large mass in the right upper lobe 6 cm in size with mediastinal extension bilateral pleural effusions. With hilar and mediastinal lymphadenopathy. Also had recent PEs and in the left lower lobe. Message [place] team via patient portal to set up an appointment with Dr. Bajwa. Will request records from [facility] If Dr. Bajwa recommends bronchoscopy, proceed with their procedural team. Pulmonary hypertension : High procedural risk context noted due to pulmonary hypertension and current medications. He cannot tolerate any procedures currently Severe pulmonary hypertension - He follows up with Dr. Meyer at [place]. Records are not available at this time to review all of his meds but he does appear to be taking Opsumit 10 mg p.o. daily as well as Adempas 2.5 mg p.o. 3 times daily which has been continued here Recurrent bilateral PEs - On Eliquis. He is status post IVC filter May stop if his bleeding gets worse Bleeding from HD catheter insertion site Platelets, surgiseeal applied, will get plasma Keep hb above 8. Currently today is 7.9 reviewed labs The high probability of a clinically significant, sudden or life threatening deterioration of the patient's [Respiratory, cardiac and renal] system(s) required my full and direct attention, intervention and personal management. The critical care time is as shown. This time is in addition to time spent performing any reported procedures but includes the following: [x] Data and vital sign review and interpretation [x] Patient assessment, examination and intervention [x] Documentation [x] Medication orders and management Critical Care Time (min): 35 Telemedicine Consent Patient seen today via Telemedicine by agreement and consent of patient.? Telemedicine technology used during the visit includes audio and, as available, review of images.? The patient encounter is appropriate and reasonable under the circumstances given the patient?s particular presentation at this time.? The patient has been advised of the potential risks and limitations of this mode of treatment (including but not limited to the absence of in-person examination) and has agreed to be treated in a remote fashion in spite of them.? Any, and all, of the patient?s/patient?s family?s questions on this issue have been answered and I have made no promises or guarantees to the patient. PDMP PDMP Reviewed: Not Reviewed Attestations Medical Necessity Statement*: Impending respiratory failure needing mechanical ventilation Coding Level of Care Code Acute Code for Chg Fwd Diagnoses History of pulmonary embolism Z86.711 Acute dyspnea R06.00 Acute hypoxemic respiratory failure J96.01 Pulmonary emboli I26.99
[2025-10-22] MEDS: FUROsemide 10 mg/mL SDV 10mL 80 MG IVP ×2 (09:08→21:10)
[2025-10-22] MEDS: ondansetron 2 mg/ML SDV 2 mL 4 MG IVP (09:08)
[2025-10-22] MEDS: pantoprazole 40 mg SDV IVP ×2 (13:36→22:46)
--- NOTE | 2025-10-22 13:38 | P.PN_ITS ---
Subjective 2 Subjective: 70 year old male with past medical histo ry of pulmonary hypertension, status post TAVR, end-stage renal disease on dialysis, history of PE on Eliquis, COPD, lung mass with mediastinal adenopathy, chronic congestive heart failure initially on 09/04/2025 found to have non-STEMI, anemia, pulmonary emboli 2nd and 3rd branches of lower lobes, lower extremity DVT, A-fib, recent echo showed mild RV hypokinesis status post IVC filter gets readmitted to the hospital with increased shortness of breath and increased home oxygen use. He was found to be 20 lbs weight increased. Dialysis session has been on hold recently. Dialysis restarted 4 L removed since 2 days. He was started on cefepime and Zyvox for probable pneumonia blood cultures and sputum cultures ordered Since then patient has had hemodialysis catheter placed currently having some bleeding issues are noted but otherwise not complaining of any increased shortness of breath currently. Feels better after dialysis sessions. 10/21/25 feels stable. on HFNC 50L/70% fio, slightly worse Got blood produts to control his bleed since yesterday 10/22/25 nausea+ vomiting. Medications: Reviewed: Yes Vitals/I&O/Wt Last Vital Signs Temp 98.7 F 10/22/25 04:00 Pulse 93 10/22/25 11:09 Resp 22 H 10/22/25 11:09 BP 122/57 10/22/25 04:00 Pulse Ox 93 10/22/25 11:09 O2 Del Method Heated High Flow 10/22/25 11:09 O2 Flow Rate 40 10/22/25 11:09 FiO2 40 10/22/25 11:09 10/21/25 10/22/25 10/22/25 22:59 06:59 14:59 Intake Total 1380 / 1860 300 / 2160 Output Total 3500 / 3500 300 / 3800 Balance -2120 / -1640 0 / -1640 Weight last 48 hrs Weight 79 g Weight 81.5 kg Weight 82.781 kg Physical Exam 2 Narrative: Per RN General: alert, NAD, on heated high flow oxygen HEENT: EOMI Pulmonary: Diminished breath sounds bilaterally Cardiovascular: rrr, nl s1s2, Abdomen: soft, nt, nd, no r/g, Extremities: no edema Neurologic: grossly intact Const: COMMON NORMALS: patient oriented x3 and alert GENERAL APPEARANCE: c ooperative ORIENTATION/CONSCIOUSNESS: Yes awake HENMT: COMMON NORMALS: oropharynx normal Resp: COMMON NORMALS: normal respiratory effort AUSCULTATION: diminished lung sounds Cardio: COMMON NORMALS: regular rhythm, S1 normal heart sound present, S2 normal heart sound present and No murmurs present (Cardio) RHYTHM: regular rhythm HEART SOUNDS: S1 normal heart sound present and S2 normal heart sound present GI: COMMON NORMALS: Normal to inspection, nondistended, normoactive bowel sounds present, Soft to palpation and non-tender PALPATION: Yes Soft to palpation Extremity: COMMON NORMALS: no joint enlargement GENERAL: Yes edema (1+) Neuro: COMMON NORMALS: patient oriented x3 and moves all extremities S ENSORIUM/ORIENTATION: Yes alert Skin: COMMON NORMALS: no rashes or lesions noted GENERAL SKIN EXAM: no rashes or lesions noted Data 10/22/25 05:52 10/22/25 05:52 Micro: Microbiology 10/22/25 00:08 Occult Blood (FIT) - Final Stool - Stool Aspirate 10/16/25 10:31 Blood Culture - Final Blood NO GROWTH AFTER 5 DAYS 10/16/25 09:57 Blood Culture - Final Blood NO GROWTH AFTER 5 DAYS A&P Assessment and plan 1. Healthcare-associated pneumonia: 2. ESRD needing dialysis: 3. Hypotension: 4. Acute respiratory failure with hypoxia: 5. Thrombocytopenia: 6. Hypomagnesemia: 7. COPD without exacerbation: 8. DM2 (diabetes mellitus, type 2): Plan: R/O Healthcare Associated Pneumonia Acute respiratory failure with hypoxia COPD w/exacerbation Lung mass w/ Mediastinal Adenopathy -FiO2 at 40 L/min, 40% FiO2 continue heated high flow -Pulmonary following and recommending follow-up with his outpatient pulmonary AT [facility] . -Etiology of acute hypoxic respiratory failure likely secondary to volume overload and also possibly related to lung mass with mediastinal adenopathy, and chronic thromboembolism resulting in pulmonary hypertension- also possible fluid overload, currently getting dialysis. Also possible COPD exacerbation ? Hx of pulmonary emboli 2nd and 3rd branches of lower lobes, lower extremity DVT: Pt S/P TAVR, On home medication Eliquis- was recently restarted at lower dose 2.5mg BID 2wk ago by PCP. Plt 80, Hold Eliquis ? Hx of Lung mass w/ Mediastinal Adenopathy(right upper lobe 6 cm in size), seen by Dr. Lezama during previous admission. Patient to follow up outpt w/ Dr. Alfredo at [facility] for recommended bronchoscopy.- 09/21/25 ? 10/16 CXR: Mild improved aeration of pulmonary parenchyma right mid chest. However there is increasing opacity right lower chest that may represent pleural fluid and/or consolidation Reviewed CBC. -- Per pulmonary, patient may need thoracentesis and will continue holding Eliquis for the procedure -- Will discuss with pulmonary if need to contact radiology for thoracentesis ? MRSA swab reviewed, negative ? Bacterial, Legionella reviewed, negative -Blood cultures negative--has been on IV antibiotics including cefepime and Zyvox, will discontinue. Continue fluconazole given persistent cultures growing fungus. ? Sputum cultures ordered, pending. Heavy yeast. ? Respiratory viral panel reviewed, negative ? Pulse oximetry, supplemental o2 to keep saturations > 92% ? RT on board ? IV Abx coverage: Cefepime 1gm IV q24h, Zyvox 600mg IV [id number] ? Continue home inhalers and benzonatate ? PT/OT prior to discharge ESRD needing dialysis Attempt additional dialysis according to nephrology. Discussed with nephrology. Monitor blood pressures with risk of hypotension. Has been receiving albumin overnight, hold further infusions for now. Reviewed CBC, CMP. Intake and output. Discussed with case mgr, per nephrology will need continued twice weekly dialysis after discharge. ? 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 Avoid nephrotoxic agents ? Strict I&Os, dly wts ? Fluid restriction 1L ? Anion gap metabolic acidosis and creatinine fluctuating. Dialysis per nephrology. Hypotension resolved. Monitor with dialysis. Continue midodrine. Hold further albumin infusions. Thrombocytopenia and anemia ?Platelets dropping again, discussed with hematology oncology and okay to resume Eliquis from their standpoint as long as platelet counts are above 50,000. However discussed with pulmonary and patient need thoracentesis so we will continue holding Eliquis for now. - Has history of prior thrombocytopenia - Requested peripheral smear. LDH, haptoglobin. LDH with only minimal elevation haptoglobin not low. Without evidence of hemolysis. Does have cirrhotic appearance of the liver, may be a possible cause of the thrombocytopenia. As well as anemia chronic disease with ESRD. No iron deficiency noted in August. ? DVT PE prophylaxis with SCD for now ? Occult stool ordered, pending- recent GI bleed 09/15/25 - Discussed with surgery and given high oxygen requirements, plan to wait for any EGD colonoscopy until he becomes more stable can be done as outpatient. Hypomagnesemia ?Received magnesium 2mg IV. Recheck magnesium. ? Monitor CMP dly Hypothyroidism ? TSH 2.53 ? Continue home levothyroxine 112 mcg PO Hyperlipidemia ?Continue home atorvastatin 40mg p.o. dly DM2 Consistent carb diet ? Blood glucose monitoring, ACHS ? Low regimen sliding scale ? Hypoglycemia protocol Pulmonary HTN ? Continue home medication Adempas and opsumit ? Follows outpatient History of PE. Continue anticoagulation. Likely liver cirrhosis: Cirrhotic appearance of the liver on CT back in August. With noted anemia, thrombocytopenia. Chronic elevation of alkaline phosphatase. T. bili, AST, ALT normal. CODE STATUS: Full code GI prophylaxis: Protonix 40 mg IVP BID VTE prophylaxis: SCDs, home medication Eliquis on hold PDMP PDMP Reviewed: Not Reviewed Attestations 2 Medical Necessity Statement*: Possibly needs thoracentesis. Discussed with pulmonary and radiology. Remains on high flow oxygen however some improvement. Discontinue IV antibiotics. Eliquis will remain on hold for the procedure however okay to be resumed from heme-onc standpoint as long as blood counts are above 50,000 Coding Level of Care Code Acute Code for Chg Fwd Diagnoses Healthcare-associated pneumonia J18.9 ESRD needing dialysis N18.6; Z99.2 Hypotension I95.9 Acute respiratory failure with hypoxia J96.01 Thrombocytopenia D69.6 Hypomagnesemia E83.42 COPD without exacerbation J44.9 DM2 (diabetes mellitus, type 2) E11.9
--- NOTE | 2025-10-22 15:04 | PC.NURSE ---
Thoracentesis-Dr. George/other physician Dr George received a phone call, unsure of provider she was speaking with, discussing ordering a thoracentesis. 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 This nurse contacted Dr Armando, who denied speaking with her. Dr George planned to schedule thoracentesis for the morning of 10/23 and requested platelet count be order ahead of time. Informed Dr George this nurse was present during Dr Armando's assessment this morning and a thoracentesis was discussed with pt but no time soon. Read Dr Armando's progress note to Dr George stating thoracentesis would be scheduled but will defer until pt more stable. Dr George would also prefer to defer until pt more stable. No thoracentesis ordered or scheduled.
[2025-10-22] MEDS: fluconazole premix 200 MG/100 ML PREMIX 100 MG IV (15:36)
[2025-10-22] MEDS: cefepime 1,000 mg SDV 1000 MG IVP (17:16)
--- NOTE | 2025-10-22 17:40 | PM.PN ---
Subjective Subjective: on 50 % Fio2 Medications: Reviewed: Yes Vitals/I&O/Wt Last Vital Signs Temp 98.7 F 10/22/25 04:00 Pulse 95 10/22/25 15:33 Resp 20 H 10/22/25 15:33 BP 119/60 10/22/25 15:15 Pulse Ox 92 10/22/25 15:33 O2 Del Method Heated High Flow 10/22/25 15:32 O2 Flow Rate 45 10/22/25 15:33 FiO2 45 10/22/25 15:33 10/22/25 10/22/25 10/22/25 06:59 14:59 22:59 Intake Total 300 / 2160 420 / 420 Output Total 300 / 3800 Balance 0 / -1640 420 / 420 Weight last 48 hrs Weight 79 g Weight 81.5 kg Weight 82.781 kg Physical Exam Narrative: And is awake and alert, PERRLA S1-S2 regular rate and rhythm Lungs with bilateral crackles Abdomen soft nontender Extremities 3+ lower extremity edema Skin no rash Data 10/22/25 05:52 10/22/25 05:52 Micro: Microbiology 10/22/25 00:08 Occult Blood (FIT) - Final Stool - Stool Aspirate A&P Assessment and plan 1. ESRD needing dialysis: Plan: 1. End-stage renal disease: HD was discontinued 2 weeks ago with possible renal recovery but patient presented with volume overload . Restarted hemodialysis HD tomorrow New tunnellec catheter placed 2. Acute respiratory failure with hypoxia,HD as above 3. Acute on chronic respiratory failure: Multifactorial 4. Anemia: ordered JENNY and s/pPRBCs 5. History of pulmonary emboli 6. Hypotension, on midodrine Patient evaluated using audiovisual cart. Time spent 40 minutes PDMP PDMP Reviewed: Not Reviewed Attestations Medical Necessity Statement*: [facility] Coding Level of Care Code Acute Code for Chg Fwd Diagnoses ESRD needing dialysis N18.6; Z99.2
[2025-10-23] VITALS (55 sets, daily range): BP systolic 92–136; BP diastolic 41–75; PULSE 85–105; RESP 15–35; TEMP 36.4–36.8; O2SAT 84–99
[2025-10-23] MEDS: RIOCIGUAT 2.5 MG 2.5 EACH PO ×3 (05:00→21:24)
[2025-10-23] MEDS: fluticasone nasal spray 16gm Btl 1 SPRAY INTRANASAL ×2 (05:03→17:52)
[2025-10-23] MEDS: saline nasal spray 44mL Btl 1 SPRAY NASAL ×2 (05:04→17:52)
[2025-10-23] MEDS: methylPREDNISolone sod succ 40 mg/mL INJ 20 MG IVP ×3 (05:05→21:24)
[2025-10-23] MEDS: linezolid premix 600 MG/300 ML PREMIX 300 MG IV ×2 (05:10→17:54)
[2025-10-23 05:55] LABS: Hematocrit 24.3 % (37-53); Hemoglobin 7.80 g/dL (11.27-16.99); Mean Corpuscular HGB Conc 32.1 g/dL (30-55); Mean Corpuscular Hemoglobin 29.8 pg (27-33); Mean Corpuscular Volume 92.7 fl (82-101); Nucleated Red Blood Cells % 0 %; Platelet Count 61 10^3/cmm (157-399); Red Blood Count 2.62 10^6/uL (3.85-5.65); White Blood Count 10.09 10^3/uL (3.29-11.43)
[2025-10-23 06:13] LABS: Anion Gap 19.6 (5-19); Calcium 8.3 mg/dL (8.5-10.5); Carbon Dioxide 25 mmol/L (22-29); Chloride 95 mmol/L (98-107); Creatinine Clr Calc Pharmacy 0.0189; Glucose 173 mg/dL (65-115); Osmolality Calculated 310 mOsm/kg (285-295); Potassium 4.6 mmol/L (3.5-5.1); Sodium 135 mmol/L (136-145)
[2025-10-23 06:45] LABS: Blood Urea Nitrogen 85 mg/dL (8-23)
--- NOTE | 2025-10-23 08:17 | PC.NURSE ---
Spoke to Dr. Prabha adames to hold 80 lasix due at 9 am as patient to have dialysis today.
--- NOTE | 2025-10-23 08:25 | P.PN_ITS ---
Subjective 2 Subjective: 70 year old male with past medical histo ry of pulmonary hypertension, status post TAVR, end-stage renal disease on dialysis, history of PE on Eliquis, COPD, lung mass with mediastinal adenopathy, chronic congestive heart failure initially on 09/04/2025 found to have non-STEMI, anemia, pulmonary emboli 2nd and 3rd branches of lower lobes, lower extremity DVT, A-fib, recent echo showed mild RV hypokinesis status post IVC filter gets readmitted to the hospital with increased shortness of breath and increased home oxygen use. He was found to be 20 lbs weight increased. Dialysis session has been on hold recently. Dialysis restarted 4 L removed since 2 days. He was started on cefepime and Zyvox for probable pneumonia blood cultures and sputum cultures ordered Since then patient has had hemodialysis catheter placed currently having some bleeding issues are noted but otherwise not complaining of any increased shortness of breath currently. Feels better after dialysis sessions. 10/21/25 feels stable. on HFNC 50L/70% fio, slightly worse Got blood produts to control his bleed since yesterday 10/22/25 nausea+ vomiting. No blood products given overnight. Bleeding stable. 10/23 On 45 L high flow 45% FiO2. Slightly improved as compared to yesterday. Medications: Reviewed: Yes Vitals/I&O/Wt Last Vital Signs Temp 99.2 F 10/22/25 20:00 Pulse 98 10/23/25 08:15 Resp 22 H 10/23/25 08:15 BP 136/55 10/23/25 05:30 Pulse Ox 95 10/23/25 08:15 O2 Del Method Heated High Flow 10/23/25 08:12 O2 Flow Rate 45 10/23/25 08:15 FiO2 45 10/23/25 08:15 10/22/25 10/23/25 10/23/25 22:59 06:59 14:59 Intake Total 560 / 980 300 / 1280 Output Total 250 / 250 Balance 560 / 980 50 / 1030 Weight last 48 hrs Weight 81.193 kg Weight 79 g Weight 81.5 kg Physical Exam 2 Narrative: Per RN General: alert, NAD, on heated high flow oxygen HEENT: EOMI Pulmonary: Diminished breath sounds bilaterally Cardiovascular: rrr, nl s1s2, Abdomen: soft, nt, nd, no r/g, Extremities: no edema Neurologic: grossly intact Const: COMMON NORMALS: patient oriented x3 and alert GENERAL APPEARANCE: c ooperative ORIENTATION/CONSCIOUSNESS: Yes awake HENMT: COMMON NORMALS: oropharynx normal Resp: COMMON NORMALS: normal respiratory effort AUSCULTATION: diminished lung sounds Cardio: COMMON NORMALS: regular rhythm, S1 normal heart sound present, S2 normal heart sound present and No murmurs present (Cardio) RHYTHM: regular rhythm HEART SOUNDS: S1 normal heart sound present and S2 normal heart sound present GI: COMMON NORMALS: Normal to inspection, nondistended, normoactive bowel sounds present, Soft to palpation and non-tender PALPATION: Yes Soft to palpation Extremity: COMMON NORMALS: no joint enlargement GENERAL: Yes edema (1+) Neuro: COMMON NORMALS: patient oriented x3 and moves all extremities S ENSORIUM/ORIENTATION: Yes alert Skin: COMMON NORMALS: no rashes or lesions noted GENERAL SKIN EXAM: no rashes or lesions noted Data 10/23/25 05:07 10/23/25 05:07 A&P Assessment and plan 1. Healthcare-associated pneumonia: 2. ESRD needing dialysis: 3. Hypotension: 4. Acute respiratory failure with hypoxia: 5. Thrombocytopenia: 6. Hypomagnesemia: 7. COPD without exacerbation: 8. DM2 (diabetes mellitus, type 2): Plan: R/O Healthcare Associated Pneumonia Acute respiratory failure with hypoxia COPD w/exacerbation Lung mass w/ Mediastinal Adenopathy -FiO2 at 45 L/min, 45% FiO2 continue heated high flow -Pulmonary following and recommending follow-up with his outpatient pulmonary AT [facility] . -Etiology of acute hypoxic respiratory failure likely secondary to volume overload and also possibly related to lung mass with mediastinal adenopathy, and chronic thromboembolism resulting in pulmonary hypertension- also possible fluid overload, currently getting dialysis. Also possible COPD exacerbation ? Hx of pulmonary emboli 2nd and 3rd branches of lower lobes, lower extremity DVT: Pt S/P TAVR, On home medication Eliquis- was recently restarted at lower dose 2.5mg BID 2wk ago by PCP. Plt 80, Hold Eliquis ? Hx of Lung mass w/ Mediastinal Adenopathy(right upper lobe 6 cm in size), seen by Dr. Lezama during previous admission. Patient to follow up outpt w/ Dr. Alfredo at [facility] for recommended bronchoscopy.- 09/21/25 ? 10/16 CXR: Mild improved aeration of pulmonary parenchyma right mid chest. However there is increasing opacity right lower chest that may represent pleural fluid and/or consolidation Reviewed CBC. -- Per pulmonary, patient may need thoracentesis and will continue holding Eliquis for the procedure -- Contacted radiology yesterday for thoracentesis--however still pending. -- Patient is a high risk for intubation ? MRSA swab reviewed, negative ? Bacterial, Legionella reviewed, negative -Blood cultures negative--has been on IV antibiotics including cefepime and Zyvox, will discontinue. Continue fluconazole given persistent cultures growing fungus. ? Sputum cultures ordered, pending. Heavy yeast. ? Respiratory viral panel reviewed, negative ? Pulse oximetry, supplemental o2 to keep saturations > 92% ? RT on board ? IV Abx coverage: Cefepime 1gm IV q24h, Zyvox 600mg IV [id number]--[id number] -Continuing IV fluconazole for fungal coverage since growing Pichia kudriavzevii on sputum cultures ? Continue home inhalers and benzonatate ? PT/OT prior to discharge ESRD needing dialysis Attempt additional dialysis according to nephrology. Discussed with nephrology. Monitor blood pressures with risk of hypotension. Has been receiving albumin overnight, hold further infusions for now. Reviewed CBC, CMP. Intake and output. Discussed with lining caser, per nephrology will need continued twice weekly dialysis after discharge. ? 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 Avoid nephrotoxic agents ? Strict I&Os, dly wts ? Fluid restriction 1L ? Anion gap metabolic acidosis and creatinine fluctuating. Dialysis per nephrology. Hypotension resolved. Monitor with dialysis. Continue midodrine. Hold further albumin infusions. Thrombocytopenia and anemia ?Platelets dropping again, discussed with hematology oncology and okay to resume Eliquis from their standpoint as long as platelet counts are above 50,000. However discussed with pulmonary and patient need thoracentesis so we will continue holding Eliquis for now. Platelet count same as yesterday at 61. - Has history of prior thrombocytopenia - Requested peripheral smear. LDH, haptoglobin. LDH with only minimal elevation haptoglobin not low. Without evidence of hemolysis. Does have cirrhotic appearance of the liver, may be a possible cause of the thrombocytopenia. As well as anemia chronic disease with ESRD. No iron deficiency noted in August. ? DVT PE prophylaxis with SCD for now ? Occult stool ordered, pending- recent GI bleed 09/15/25 - Discussed with surgery and given high oxygen requirements, plan to wait for any EGD colonoscopy until he becomes more stable can be done as outpatient. Hypomagnesemia ?Received magnesium 2mg IV. Recheck magnesium. ? Monitor CMP dly Hypothyroidism ? TSH 2.53 ? Continue home levothyroxine 112 mcg PO Hyperlipidemia ?Continue home atorvastatin 40mg p.o. dly DM2 Consistent carb diet ? Blood glucose monitoring, ACHS ? Low regimen sliding scale ? Hypoglycemia protocol Pulmonary HTN ? Continue home medication Adempas and opsumit ? Follows outpatient History of PE. Eliquis on hold Likely liver cirrhosis: Cirrhotic appearance of the liver on CT back in August. With noted anemia, thrombocytopenia. Chronic elevation of alkaline phosphatase. T. bili, AST, ALT normal. CODE STATUS: Full code GI prophylaxis: Protonix 40 mg IVP BID VTE prophylaxis: SCDs, home medication Eliquis on hold PDMP PDMP Reviewed: Not Reviewed Attestations 2 Medical Necessity Statement*: Remains on high flow nasal cannula. Thoracentesis pending. 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
--- NOTE | 2025-10-23 09:29 | PC.SOCIAL ---
IMM Update pg 2 of IMM Updated and reviewed w/ patient. Copy provided and copy dated initialed and placed in chart.
[2025-10-23] MEDS: pantoprazole 40 mg SDV IVP ×2 (12:09→23:24)
--- NOTE | 2025-10-23 12:46 | P.PN_ITS ---
Subjective 2 Subjective: Patient has no new complaints on HF oxygen with 45% fio2 and 45L Medications: Reviewed: Yes Vitals/I&O/Wt Last Vital Signs Temp 99.2 F 10/22/25 20:00 Pulse 87 10/23/25 11:39 Resp 20 H 10/23/25 11:39 BP 136/55 10/23/25 05:30 Pulse Ox 90 10/23/25 11:39 O2 Del Method Heated High Flow 10/23/25 11:37 O2 Flow Rate 45 10/23/25 11:39 FiO2 45 10/23/25 11:39 10/22/25 10/23/25 10/23/25 22:59 06:59 14:59 Intake Total 560 / 980 300 / 1280 Output Total 250 / 250 Balance 560 / 980 50 / 1030 Weight last 48 hrs Weight 81.193 kg Weight 79 g Weight 81.5 kg Physical Exam 2 Narrative: GEN: nad, alert, on HF oxygen, AOX3 HEAD: normocephalic, atraumatic EYES: eomi, anicteric sclera HEENT: mmm NECK: no jvd CV: rrr LUNGS: diminished BS bilaterally ABD: soft, nt, nd EXT: No LE edema NEURO: grossly normal SKIN: no rash Data 10/23/25 05:07 10/23/25 05:07 A&P Assessment and plan 1. End stage renal disease on dialysis: Plan: 1. End-stage renal disease- Patient's HD was discontinued 2 weeks prior due to possible renal recovery; however, he presented with volume overload and his HD ewas resumed. I will plan on HD today with uf as tolerated 2. Acute on chronic Hypoxic respiratory failure - I will cont uf with hd as tolerated 3. Anemia in CKD- ordered JENNY and s/p PRBC transfusion. cont to monitor hgb and transfuse as indicated 5. History of pulmonary emboli 6. Hypotension- cont midodrine PDMP PDMP Reviewed: Not Reviewed Attestations 2 Medical Necessity Statement*: esrd Time Spent in Patient Care: 25 minutes Coding Level of Care Code Acute Code for Chg Fwd Diagnoses End stage renal disease on dialysis N18.6; Z99.2
[2025-10-23] MEDS: cefepime 1,000 mg SDV 1000 MG IVP (15:14)
--- NOTE | 2025-10-23 17:32 | P.PN_ITS ---
Subjective 2 Subjective: 70 year old male with past medical histo ry of pulmonary hypertension, status post TAVR, end-stage renal disease on dialysis, history of PE on Eliquis, COPD, lung mass with mediastinal adenopathy, chronic congestive heart failure initially on 09/04/2025 found to have non-STEMI, anemia, pulmonary emboli 2nd and 3rd branches of lower lobes, lower extremity DVT, A-fib, recent echo showed mild RV hypokinesis status post IVC filter gets readmitted to the hospital with increased shortness of breath and increased home oxygen use. He was found to be 20 lbs weight increased. Dialysis session has been on hold recently. Dialysis restarted 4 L removed since 2 days. He was started on cefepime and Zyvox for probable pneumonia blood cultures and sputum cultures ordered Since then patient has had hemodialysis catheter placed currently having some bleeding issues are noted but otherwise not complaining of any increased shortness of breath currently. Feels better after dialysis sessions. 10/21/25 feels stable. on HFNC 50L/70% fio, slightly worse Got blood produts to control his bleed since yesterday 10/22/25 nausea+ vomiting. No blood products given overnight. Bleeding stable. 10/23/2025 Bleeding is controlled. On 45 L / 45% FiO2 satting 90%. No issues. Vitals/I&O/Wt Last Vital Signs Temp 98.1 F 10/23/25 15:13 Pulse 97 10/23/25 16:20 Resp 20 H 10/23/25 16:18 BP 110/45 10/23/25 15:13 Pulse Ox 93 10/23/25 16:18 O2 Del Method Heated High Flow 10/23/25 16:12 O2 Flow Rate 45 10/23/25 16:18 FiO2 45 10/23/25 16:18 10/23/25 10/23/25 10/23/25 06:59 14:59 22:59 Intake Total 300 / 1280 422 / 422 Output Total 250 / 250 175 / 175 Balance 50 / 1030 247 / 247 Weight last 48 hrs Weight 179 lb Weight 2.787 oz Weight 179 lb 10.828 oz Physical Exam 2 Narrative: Per RN General: Mildly dyspneic HEENT: EOMI Pulmonary: Diminished breath sounds bilaterally Cardiovascular: rrr, nl s1s2, Abdomen: soft, nt, nd, no r/g, Extremities: no edema Neurologic: grossly intact Agree with above exam Data 10/23/25 05:07 10/23/25 05:07 A&P Assessment and plan 1. History of pulmonary embolism: 2. Acute dyspnea: 3. Acute hypoxemic respiratory failure: 4. Pulmonary emboli: Plan: Acute on chronic respiratory failure-most likely a combination of low volume volume mixed with pulmonary hypertension Dialysis today Wean off high flow nasal cannula as tolerated. Currently on 45 L / 45% FiO2. Today keep sats around 90% Platelets are still low at 61K. Patient is clinically not worse. Will plan for platelets infusion on Sunday and thoracentesis on Sunday. Reviewed CT scan done 11/12. Shows right-sided pleural effusion. Discussed case with Dr. Vyas will plan thoracentesis after stopping Eliquis. May be malignant pleural effusion Patient is a high risk for intubation, I discussed with him goals of care he understands he might deteriorate and get intubated. He still wants. Knowing he is high risk of cardiac arrest considering his underlying pulmonary hypertension and risk of cardiac arrest being very high. Postobstructive pneumonia- Right lung: Present on admission .Madalyn knight going on sputum cultures-May be invasive pulm infection. Continue flucanozole Mediastinal lymphadenopathy and right hilar and mediastinal mass There appears to be enlargement of the right hilar and mediastinal mass with some extension along the primary bronchi of the right upper, middle and lower lobes causing postobstructive atelectasis and partial collapse of the right upper and lower lobes. -I reviewed the CT myself, interpretted findings independently 10/22/2025 Right pleural effusion status post thoracentesis 08/26/2025-nondiagnostic Reviewed CT scan done today and interpreted findings independently. Shows right-sided pleural effusion. Discussed case with Dr. Vyas will plan thoracentesis after stopping Eliquis. May be malignant pleural effusion Lung mass with mediastinal adenopathy : Known lung mass from hospitalization. CT done 09/04/2025, reviewed by me personally and interpreted results shows a large mass in the right upper lobe 6 cm in size with mediastinal extension bilateral pleural effusions. With hilar and mediastinal lymphadenopathy. Also had recent PEs and in the left lower lobe. Message [facility] team via patient portal to set up an appointment with Dr. Bajwa. Will request records from [facility] If Dr. Bajwa recommends bronchoscopy, proceed with their procedural team. Pulmonary hypertension : High procedural risk context noted due to pulmonary hypertension and current medications. He cannot tolerate any procedures currently Severe pulmonary hypertension - He follows up with Dr. Meyer at [facility]. Records are not available at this time to review all of his meds but he does appear to be taking Opsumit 10 mg p.o. daily as well as Adempas 2.5 mg p.o. 3 times daily which has been continued here Recurrent bilateral PEs - On Eliquis. He is status post IVC filter May stop if his bleeding gets worse Bleeding from HD catheter insertion site Platelets, surgiseeal applied, will get plasma Keep hb above 8. Currently today is 7.9 reviewed labs Medical decision making level-moderate Moderate MDM includes number and complexity of problems actively addressed during encounter, amount and/or complexity of data reviewed/ordered [ previous or external records, resulted lab(s)/test(s), ordered lab(s)/test(s), independent historian, independent test interpretation and other healthcare professional discussion] and described risk of complication, morbidity or mortality of management as documented This documentation was created by [employer] computer applications developer software (known for inherent computer applications developer error). Every effort was made to assure accuracy of computer applications developer. Any obvious errors or omissions should be clarified with the author of the document Telemedicine Consent Patient seen today via Telemedicine by agreement and consent of patient.? Telemedicine technology used during the visit includes audio and, as available, review of images.? The patient encounter is appropriate and reasonable under the circumstances given the patient?s particular presentation at this time.? The patient has been advised of the potential risks and limitations of this mode of treatment (including but not limited to the absence of in-person examination) and has agreed to be treated in a remote fashion in spite of them.? Any, and all, of the patient?s/patient?s family?s questions on this issue have been answered and I have made no promises or guarantees to the patient. PDMP PDMP Reviewed: Not Reviewed Attestations 2 Medical Necessity Statement*: - High flow Nasal cannula Coding Level of Care Code Acute Code for Chg Fwd Diagnoses History of pulmonary embolism Z86.711 Acute dyspnea R06.00 Acute hypoxemic respiratory failure J96.01 Pulmonary emboli I26.99
[2025-10-23] MEDS: fluconazole premix 200 MG/100 ML PREMIX 100 MG IV (17:53)
[2025-10-23] MEDS: FUROsemide 10 mg/mL SDV 10mL 80 MG IVP (21:24)
[2025-10-24] VITALS (30 sets, daily range): BP systolic 98–144; BP diastolic 42–68; PULSE 87–113; RESP 16–26; TEMP 36.4–36.6; O2SAT 72–96
--- NOTE | 2025-10-24 03:39 | PC.NURSE ---
Addendum entered by Renetta Farias RN 10/24/25 06:28: Magnesium resulted at 1.8, received orders at this time for 1gm Magnesium Sulfate IV x1 Original Note: Vta Patient sustained an 8 beat run of vtach, Dr. Taylor notified and received verbal orders at this time for Magnesium and Phosphorus labs. Cardiac strip placed in chart.
[2025-10-24 03:48] LABS: Hematocrit 22.6 % (37-53); Hemoglobin 7.30 g/dL (11.27-16.99); Mean Corpuscular HGB Conc 32.3 g/dL (30-55); Mean Corpuscular Hemoglobin 29.9 pg (27-33); Mean Corpuscular Volume 92.6 fl (82-101); Nucleated Red Blood Cells % 0 %; Platelet Count 38 10^3/cmm (157-399); Red Blood Count 2.44 10^6/uL (3.85-5.65); White Blood Count 8.26 10^3/uL (3.29-11.43)
[2025-10-24 04:04] LABS: Anion Gap 18.3 (5-19); Blood Urea Nitrogen 60 mg/dL (8-23); Calcium 8.3 mg/dL (8.5-10.5); Carbon Dioxide 25 mmol/L (22-29); Chloride 95 mmol/L (98-107); Glucose 216 mg/dL (65-115); Magnesium 1.8 mg/dL (1.7-2.3); Osmolality Calculated 301 mOsm/kg (285-295); Potassium 4.3 mmol/L (3.5-5.1); Sodium 134 mmol/L (136-145)
[2025-10-24] MEDS: linezolid premix 600 MG/300 ML PREMIX 300 MG IV ×2 (05:31→17:36)
[2025-10-24] MEDS: RIOCIGUAT 2.5 MG 2.5 EACH PO ×3 (05:34→21:34)
[2025-10-24] MEDS: fluticasone nasal spray 16gm Btl 1 SPRAY INTRANASAL ×2 (05:34→17:36)
[2025-10-24] MEDS: saline nasal spray 44mL Btl 1 SPRAY NASAL ×2 (05:34→17:36)
[2025-10-24] MEDS: methylPREDNISolone sod succ 40 mg/mL INJ 20 MG IVP ×3 (05:38→21:34)
[2025-10-24] MEDS: magnesium sulfate premix 1 GM/100 ML PIGGYBACK IV (06:03)
[2025-10-24] MEDS: FUROsemide 10 mg/mL SDV 10mL 80 MG IVP ×2 (08:43→21:34)
--- NOTE | 2025-10-24 11:10 | P.PN_ITS ---
Subjective 2 Subjective: Patient is complaining of sob on high flow with 40L and 41% fio2 Medications: Reviewed: Yes Vitals/I&O/Wt Last Vital Signs Temp 98.1 F 10/23/25 23:37 Pulse 91 10/24/25 11:06 Resp 18 10/24/25 11:05 BP 106/50 10/24/25 04:00 Pulse Ox 92 10/24/25 11:05 O2 Del Method Heated High Flow 10/24/25 11:05 O2 Flow Rate 40 10/24/25 11:05 FiO2 40 10/24/25 11:05 10/23/25 10/24/25 10/24/25 22:59 06:59 14:59 Intake Total 400 / 822 900 / 1722 Output Total 150 / 325 2634 / 2959 Balance 250 / 497 -1734 / -1237 Weight last 48 hrs Weight 79.5 kg Weight 80.5 kg Weight 81.193 kg Physical Exam 2 Narrative: GEN: nad, alert, on HF oxygen, AOX3 HEAD: normocephalic, atraumatic EYES: eomi, anicteric sclera HEENT: mmm NECK: no jvd CV: rrr LUNGS: diminished BS bilaterally ABD: soft, nt, nd EXT: No LE edema NEURO: grossly normal SKIN: no rash Data 10/24/25 03:18 10/24/25 03:18 Micro: Microbiology 10/23/25 20:40 Occult Blood (FIT) - Final Stool Routine Collection A&P Assessment and plan 1. End stage renal disease on dialysis: Plan: 1. End-stage renal disease- Patient's HD was discontinued 2 weeks prior due to possible renal recovery; however, he presented with volume overload and his HD was resumed. He had HD yesterday and will be on a mwf schedule. He will need outpatient HD arrangements 2. Acute on chronic Hypoxic respiratory failure - I will cont uf with hd as tolerated 3. Anemia in CKD- ordered JENNY and s/p PRBC transfusion. cont to monitor hgb and transfuse as indicated 5. History of pulmonary emboli 6. Hypotension- cont midodrine PDMP PDMP Reviewed: Not Reviewed Attestations 2 Medical Necessity Statement*: esrd Time Spent in Patient Care: 25 minutes Coding Level of Care Code Acute Code for Chg Fwd Diagnoses End stage renal disease on dialysis N18.6; Z99.2
[2025-10-24] MEDS: pantoprazole 40 mg SDV IVP ×2 (11:17→23:58)
[2025-10-24] MEDS: cefepime 1,000 mg SDV 1000 MG IVP (15:30)
[2025-10-24] MEDS: fluconazole premix 200 MG/100 ML PREMIX 100 MG IV (15:30)
[2025-10-24] MEDS: ondansetron 2 mg/ML SDV 2 mL 4 MG IVP (15:54)
--- NOTE | 2025-10-24 16:19 | P.PN_ITS ---
Subjective 2 Subjective: Patient seen laying in bed earlier and then sitting in chair with significant other. Report he just vomitted partially digested food. Reports this has been occurring the last few weeks. Family present: Fianc? Amb status: Up to chair with assistance Diet: Carbohydrate consistent diet with 1 L fluid restriction Lines/Drains: Peripheral Tele: Medications: Reviewed: Yes Vitals/I&O/Wt Last Vital Signs Temp 97.5 F L 10/24/25 13:00 Pulse 95 10/24/25 16:00 Resp 24 H 10/24/25 16:00 BP 127/52 10/24/25 16:00 Pulse Ox 92 10/24/25 16:00 O2 Del Method High Flow Nasal Cannula 10/24/25 16:00 O2 Flow Rate 13 10/24/25 16:00 FiO2 40 10/24/25 11:05 10/24/25 10/24/25 10/24/25 06:59 14:59 22:59 Intake Total 900 / 1722 190 / 190 Output Total 2634 / 2959 300 / 300 Balance -1734 / -1237 -110 / -110 Weight last 48 hrs Weight 79.5 kg Weight 80.5 kg Weight 81.193 kg Data 10/24/25 03:18 10/24/25 03:18 Micro: Microbiology 10/23/25 20:40 Occult Blood (FIT) - Final Stool Routine Collection A&P Assessment and plan 1. Acute respiratory failure with hypoxia: 2. ESRD needing dialysis: 3. Hypotension: 4. Thrombocytopenia: 5. Hypomagnesemia: 6. COPD without exacerbation: 7. DM2 (diabetes mellitus, type 2): 8. Lung mass: Plan: Acute respiratory failure with hypoxia COPD w/exacerbation Lung mass w/ Mediastinal Adenopathy post obstructive pneumonia with lung collapse -FiO2 at 45 L/min, 45% FiO2 continue heated high flow -Etiology of acute hypoxic respiratory failure likely secondary to volume overload and also possibly related to lung mass with mediastinal adenopathy, and chronic thromboembolism resulting in pulmonary hypertension- also possible fluid overload, currently getting dialysis. Also possible COPD exacerbation ? Hx of pulmonary emboli 2nd and 3rd branches of lower lobes, lower extremity DVT: Pt S/P TAVR, On home medication Eliquis- was recently restarted at lower dose 2.5mg BID 2wk ago by PCP. Plt 80, Hold Eliquis ? Hx of Lung mass w/ Mediastinal Adenopathy(right upper lobe 6 cm in size), seen by Dr. Lezama during previous admission. Patient to follow up outpt w/ Dr. Alfredo at [facility] for recommended bronchoscopy.- 09/21/25 ? Per amrk? Dr. Espana advised patient/fianc? to become more stable before workup at [facility]. ? MRSA swab reviewed, negative ? Bacterial, Legionella reviewed, negative -Blood cultures negative--has been on IV antibiotics including cefepime and Zyvox, will discontinue. - Fungus and sputum cultures continue fluconazole day 7 fluconazole given persistent cultures growing fungus. -Continuing IV fluconazole for fungal coverage since growing Pichia kudriavzevii on sputum cultures ESRD needing dialysis - Has been on dialysis for a few months. Was recently stopped due to suspected renal recovery. However patient has required hemodialysis since admission. ? Baseline Hospitalist Medical Director usually 2.7, per significant other at bedside ? Avoid nephrotoxic agents ? Strict I&Os, dly wts ? Fluid restriction 1L Hypotension resolved. Monitor with dialysis. Continue midodrine. Hold further albumin infusions. Thrombocytopenia and anemia ?Platelets dropping again, discussed with hematology oncology and okay to resume Eliquis from their standpoint as long as platelet counts are above 50,000. However discussed with pulmonary and patient need thoracentesis so we will continue holding Eliquis for now. Platelet count 38 today. - Has history of prior thrombocytopenia - Requested peripheral smear. LDH, haptoglobin. LDH with only minimal elevation haptoglobin not low. Without evidence of hemolysis. Does have cirrhotic appearance of the liver, may be a possible cause of the thrombocytopenia. As well as anemia chronic disease with ESRD. No iron deficiency noted in August. ? DVT PE prophylaxis with SCD for now ? Occult stool ordered, pending- recent GI bleed 09/15/25 - Previously discussed with surgery and given high oxygen requirements, plan to wait for any EGD colonoscopy until he becomes more stable can be done as outpatient. Hypomagnesemia ?Received magnesium 2mg IV during hospitalization ? Monitor CMP dly Hypothyroidism ? TSH 2.53 ? Continue home levothyroxine 112 mcg PO Hyperlipidemia ?Continue home atorvastatin 40mg p.o. dly DM2 Consistent carb diet ? Blood glucose monitoring, ACHS ? Low regimen sliding scale ? Hypoglycemia protocol Pulmonary HTN ? Continue home medication Adempas and opsumit ? Follows outpatient at [facility] Patient without significant improvement over the last few days. I suspect patient will need interventional pulmonary procedure and of course a workup for the lung mass. I recommend this be done with his known office mail clerk and batch operator up at [facility]. I have called for transfer since patient requires further acute hospitalization for acute respiratory failure. CODE STATUS: Full code GI prophylaxis: Protonix 40 mg IVP BID VTE prophylaxis: SCDs, home medication Eliquis on hold PDMP PDMP Reviewed: Not Reviewed Attestations 2 Medical Necessity Statement*: Patient requires continued hospitalization for acute respiratory requiring heated high flow high oxygen requirements patient significantly desaturates to 80% with talking or limited mobility in chair. Coding Level of Care Code Acute Code for Chg Fwd Diagnoses Acute respiratory failure with hypoxia J96.01 ESRD needing dialysis N18.6; Z99.2 Hypotension I95.9 Thrombocytopenia D69.6 Hypomagnesemia E83.42 COPD without exacerbation J44.9 DM2 (diabetes mellitus, type 2) E11.9 Lung mass R91.8
[2025-10-25] VITALS (92 sets, daily range): BP systolic 91–151; BP diastolic 40–80; PULSE 88–119; RESP 15–28; TEMP 36.3–36.9; O2SAT 83–97
[2025-10-25 04:20] LABS: Hematocrit 21.9 % (37-53); Hemoglobin 6.90 g/dL (11.27-16.99); Mean Corpuscular HGB Conc 31.5 g/dL (30-55); Mean Corpuscular Hemoglobin 29.1 pg (27-33); Mean Corpuscular Volume 92.4 fl (82-101); Nucleated Red Blood Cells % 0 %; Platelet Count 39 10^3/cmm (157-399); Red Blood Count 2.37 10^6/uL (3.85-5.65); White Blood Count 8.84 10^3/uL (3.29-11.43)
[2025-10-25 04:42] LABS: Anion Gap 19.6 (5-19); Calcium 8.4 mg/dL (8.5-10.5); Carbon Dioxide 25 mmol/L (22-29); Chloride 98 mmol/L (98-107); Glucose 122 mg/dL (65-115); Osmolality Calculated 312 mOsm/kg (285-295); Potassium 4.6 mmol/L (3.5-5.1); Sodium 138 mmol/L (136-145)
[2025-10-25] MEDS: linezolid premix 600 MG/300 ML PREMIX 300 MG IV ×2 (04:48→17:21)
[2025-10-25] MEDS: RIOCIGUAT 2.5 MG 2.5 EACH PO ×3 (04:52→21:52)
[2025-10-25] MEDS: fluticasone nasal spray 16gm Btl 1 SPRAY INTRANASAL ×2 (04:53→17:15)
[2025-10-25] MEDS: methylPREDNISolone sod succ 40 mg/mL INJ 20 MG IVP ×2 (04:53→17:20)
[2025-10-25] MEDS: saline nasal spray 44mL Btl 1 SPRAY NASAL ×2 (04:53→17:15)
[2025-10-25 04:58] LABS: Blood Urea Nitrogen 82 mg/dL (8-23)
[2025-10-25] MEDS: ondansetron 2 mg/ML SDV 2 mL 4 MG IVP (06:21)
[2025-10-25] MEDS: FUROsemide 10 mg/mL SDV 10mL 80 MG IVP ×2 (08:30→23:44)
--- NOTE | 2025-10-25 09:57 | P.PN_ITS ---
Subjective 2 Subjective: 70-year-old male with multiple medical c omorbidities who is known to my service for need for dialysis catheter. He is doing okay has been receiving dialysis no significant bleeding around the catheter. His hemoglobin Trended down significantly. He states that he saw some blood in the stool but the stool this morning is liquid and dark green-tinged but no significant blood that I can appreciate. He did have an endoscopy a while ago done by myself which shows gastric erosions. Vitals/I&O/Wt Last Vital Signs Temp 97.9 F 10/24/25 21:00 Pulse 99 10/25/25 07:31 Resp 16 10/25/25 07:30 BP 117/43 10/25/25 04:00 Pulse Ox 92 10/25/25 07:30 O2 Del Method High Flow Nasal Cannula 10/25/25 07:30 O2 Flow Rate 8 10/25/25 07:30 FiO2 40 10/24/25 11:05 10/24/25 10/25/25 10/25/25 22:59 06:59 14:59 Intake Total 550 / 740 300 / 1040 Output Total 100 / 400 Balance 550 / 440 200 / 640 Weight last 48 hrs Weight 178 lb Weight 175 lb 4.28 oz Weight 177 lb 7.554 oz Physical Exam 2 Narrative: Benign abdominal exam abdomen soft nontender nondistended Data 10/25/25 03:26 10/25/25 03:26 A&P Assessment and plan 1. Pulmonary embolism: 2. Thrombocytopenia: Plan: 70-year-old male who is in the hospital due to multiple medical comorbidities and has been having coagulopathy downtrending hemoglobin. I think the downtrend of his hemoglobin is multifactorial, he does have coagulopathy with low platelet count which can explain the possible bleeding in addition to that he has kidney disease which makes his body ability to recover from blood loss very limited. He does have a chest mass which is another likely source of blood loss. And in the past he has had upper GI bleeding caused by stomach erosions. At this time I do recommend that we proceed with upper endoscopy as he is unlikely that we will find a clear source of bleeding while we cannot provide a therapeutic intervention although if his hemoglobin continues to drop I might recommend an upper endoscopy for confirmation to evaluate the need for therapy. I recommend that we correct his coagulopathy platelet count is 38 we should try to get have at least up to 50 to prevent further bleeding and I agree with the decision of transfusion by medical team. Patient is scheduled for thoracentesis and bronchoscopy tomorrow. I will continue to follow PDMP PDMP Reviewed: Not Reviewed Attestations 2 Medical Necessity Statement*: Per medical team Coding Level of Care Code Acute Code for Chg Fwd Diagnoses Pulmonary embolism I26.99 Thrombocytopenia D69.6
--- NOTE | 2025-10-25 11:31 | PM.PN ---
Subjective Subjective: Patient seen eating breakfast sitting in a chair by the bedside. Says that he is fair . RN reports black liquid bowel movement. Last night and today. Also reported that I was the first person to mention that the lung mass could be cancer. I was not aware of this yesterday Family present: No fianc? this a.m Amb status: Up to chair with assistance Diet: Carbohydrate consistent diet with 1 L fluid restriction Lines/Drains: Peripheral Tele: Sign Medications: Reviewed: Yes Vitals/I&O/Wt Last Vital Signs Temp 98 F 10/25/25 10:53 Pulse 90 10/25/25 11:13 Resp 16 10/25/25 11:12 BP 110/65 10/25/25 10:53 Pulse Ox 94 10/25/25 11:12 O2 Del Method High Flow Nasal Cannula 10/25/25 11:12 O2 Flow Rate 8 10/25/25 11:12 FiO2 40 10/24/25 11:05 10/24/25 10/25/25 10/25/25 22:59 06:59 14:59 Intake Total 550 / 740 300 / 1040 0 / 0 Output Total 100 / 400 Balance 550 / 440 200 / 640 0 / 0 Weight last 48 hrs Weight 80.739 kg Weight 79.5 kg Weight 80.5 kg Physical Exam Narrative: Awake alert oriented to person place time and situation. No acute distress Heart regular rate and rhythm normal S1-S2 without loud murmur Lungs diminished throughout with scattered rhonchorous sounds Abdomen soft nontender nondistended no rebound or guarding Extremities no significant edema Data 10/25/25 03:26 10/25/25 03:26 A&P Assessment and plan 1. Acute respiratory failure with hypoxia: Multifactorial. Pulmonary hypertension Chronic PE Acute on chronic systolic heart failure Renal failure with fluid overload Pleural effusions most likely consistent with fluid overload/acute on chronic systolic CHF with renal failure. Patient was recently discontinued from hemodialysis but thought being that patient had renal recovery. However the patient is now not able to maintain his fluid status He was initially on heated high flow has been on 8 L nasal cannula for last few days Next steps. 1. Patient would likely benefit from thoracentesis. Patient will be made n.p.o. after midnight for possible intervention. 2. Recommend bronchoscopy biopsy and assessment of mass with mediastinal adenopathy and its effect on the bronchial tree I would be hopeful that thoracentesis would provide further relief and aid in oxygen weaning. 2. ESRD needing dialysis: Has been on dialysis for a few months. Was recently stopped due to suspected renal recovery. However patient has required hemodialysis since admission. ? Baseline Inspector Materials And Processes usually 2.7, per significant other at bedside ? Avoid nephrotoxic agents ? Strict I&Os, dly wts ? Fluid restriction 1L 3. Hypotension: Resolved off Levophed for 48 hours now Continue midodrine 4. Thrombocytopenia: Unknown etiology. Questionable etiology from cirrhosis as seen on CT. Has received 1 sixpack previously. General surgery recommends transfusion to goal of 50. However if patient has no active bleeding which general surgery does not believe then may not be indicated. Would agree to have platelet transfusion ordered and on hold for possible procedures tomorrow 5. Hypomagnesemia: Replaced 6. DM2 (diabetes mellitus, type 2): 7. Lung mass: With mediastinal lymphadenopathy. The mass is growing this is most likely malignant. As above apparently was the first to inform the patient that this mass is most likely malignant. He and his fianc?e mentioned that they reached out to his bookbinder apprentice Dr. Lerma at [facility]. They were told that he should have that worked up once he has stabilized. 8. Pulmonary embolism: anticoagulation on hold due to thrombocytopenia anemia and possible GI bleed 9. 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 Anemia: Received 1 RBC transfusion previously I believe on 10/21/2025. Will order 2 units of PRBCs today for hemoglobin of 6.9 in light of his acute on chronic respiratory failure this may help wean oxygen. 11. Postobstructive pneumonia: With lung collapse Plan: Note patient has bookbinder apprentice for pulmonary hypertension named Dr. Espana at [facility]. Other medical conditions Hypothyroidism ? TSH 2.53 ? Continue home levothyroxine 112 mcg PO Hyperlipidemia ?Continue home atorvastatin 40mg p.o. dly DM2 Consistent carb diet ? Blood glucose monitoring, ACHS ? Low regimen sliding scale ? Hypoglycemia protocol Pulmonary HTN ? Continue home medication Adempas and opsumit ? Follows outpatient at [facility] Patient without significant improvement over the last few days. Initiated transfer to [facility]. They do not have any beds but they will place him on a waiting list since patient sees a physician of theirs as above. Unfortunately patient has unstable condition and needs aggressive interventions and thus will proceed with probable procedures tomorrow with pulmonary and possible EGD from surgery. CODE STATUS: Full code GI prophylaxis: Protonix 40 mg IVP BID VTE prophylaxis: SCDs, home medication Eliquis on hold PDMP PDMP Reviewed: Not Reviewed Attestations Medical Necessity Statement*: Patient requires continued hospitalization for acute respiratory requiring heated high flow high oxygen requirements patient significantly desaturates to 80% with talking or limited mobility in chair. Coding Level of Care Code Acute Code for Chg Fwd Diagnoses Acute respiratory failure with hypoxia J96.01 ESRD needing dialysis N18.6; Z99.2 Hypotension I95.9 Thrombocytopenia D69.6 Hypomagnesemia E83.42 DM2 (diabetes mellitus, type 2) E11.9 Lung mass R91.8 Pulmonary embolism I26.99 Respiratory infection due to fungus J98.8; B49 Anemia D64.9 Postobstructive pneumonia J18.9
--- NOTE | 2025-10-25 13:37 | P.PN_ITS ---
Subjective 2 Subjective: Patient is complaining of sob on 8L HF. Medications: Reviewed: Yes Vitals/I&O/Wt Last Vital Signs Temp 97.4 F L 10/25/25 13:08 Pulse 89 10/25/25 13:08 Resp 20 H 10/25/25 13:08 BP 128/53 10/25/25 13:08 Pulse Ox 92 10/25/25 12:08 O2 Del Method High Flow Nasal Cannula 10/25/25 11:12 O2 Flow Rate 8 10/25/25 11:12 FiO2 40 10/24/25 11:05 10/24/25 10/25/25 10/25/25 22:59 06:59 14:59 Intake Total 550 / 740 300 / 1040 0 / 0 Output Total 100 / 400 Balance 550 / 440 200 / 640 0 / 0 Weight last 48 hrs Weight 80.739 kg Weight 79.5 kg Weight 80.5 kg Physical Exam 2 Narrative: GEN: nad, alert, on HF oxygen, AOX3 HEAD: normocephalic, atraumatic EYES: eomi, anicteric sclera HEENT: mmm NECK: no jvd CV: rrr LUNGS: diminished BS bilaterally ABD: soft, nt, nd EXT: +1-2 BLE edema NEURO: grossly normal SKIN: no rash Data 10/25/25 03:26 10/25/25 03:26 A&P Assessment and plan 1. End stage renal disease on dialysis: Plan: 1. End-stage renal disease- Patient's HD was discontinued 2 weeks prior due to possible renal recovery; however, he presented with volume overload and his HD was resumed. He last received HD on sunday, 10/23. Hoever, he is receiving 2 units of prbc and is scheduled for a thoracentesis, egd and bronchoscopy tomorrow. I will plan on hd today. He will need outpatient HD arrangements 2. Acute on chronic Hypoxic respiratory failure - I will cont uf with hd as tolerated 3. Anemia in CKD- s/p renny. he is receiving 2 units PRBC transfusion. cont to monitor hgb and transfuse as indicated 5. History of pulmonary emboli 6. Hypotension- cont midodrine PDMP PDMP Reviewed: Not Reviewed Attestations 2 Medical Necessity Statement*: esrd Time Spent in Patient Care: 25 minutes Coding Level of Care Code Acute Code for Chg Fwd Diagnoses End stage renal disease on dialysis N18.6; Z99.2
[2025-10-25] MEDS: fluconazole premix 200 MG/100 ML PREMIX 100 MG IV (15:36)
[2025-10-25] MEDS: cefepime 1,000 mg SDV 1000 MG IVP (17:15)
[2025-10-26] VITALS (40 sets, daily range): BP systolic 81–148; BP diastolic 33–80; PULSE 93–108; RESP 12–30; TEMP 36.4–36.7; O2SAT 82–95
[2025-10-26] MEDS: RIOCIGUAT 2.5 MG 2.5 EACH PO ×3 (05:46→20:53)
[2025-10-26] MEDS: fluticasone nasal spray 16gm Btl 1 SPRAY INTRANASAL ×2 (05:47→16:34)
[2025-10-26] MEDS: methylPREDNISolone sod succ 40 mg/mL INJ 20 MG IVP ×2 (05:47→16:34)
[2025-10-26] MEDS: saline nasal spray 44mL Btl 1 SPRAY NASAL ×2 (05:47→16:35)
[2025-10-26] MEDS: linezolid premix 600 MG/300 ML PREMIX 300 MG IV ×2 (05:48→16:35)
[2025-10-26 05:53] LABS: Hematocrit 27.7 % (37-53); Hemoglobin 9.00 g/dL (11.27-16.99); Mean Corpuscular HGB Conc 32.5 g/dL (30-55); Mean Corpuscular Hemoglobin 30.1 pg (27-33); Mean Corpuscular Volume 92.6 fl (82-101); Nucleated Red Blood Cells % 0 %; Platelet Count 33 10^3/cmm (157-399); Red Blood Count 2.99 10^6/uL (3.85-5.65); White Blood Count 10.99 10^3/uL (3.29-11.43)
[2025-10-26 05:55] LABS: INR 1.30 (0.8-1.2); Prothrombin Time 17.10 SECONDS (12.1-14.9)
[2025-10-26 05:56] LABS: Partial Thromboplastin Time 29.7 SECONDS (23.9-36.7)
--- NOTE | 2025-10-26 06:00 | XR_ITS ---
WS: [id number] XR chest 1V portable [id number] REASON FOR EXAM: Acute respiratory failure FINDINGS: Left IJ dual-lumen dialysis catheter in proper position. Right arm PICC line in proper position. Endovascular aortic stent graft. Atelectasis of the right upper lobe and right lower lobe with elevation of the right hemidiaphragm. Atelectasis has progressed compared to the previous examination of 10/19/2025. Diffuse reticular interstitial and groundglass opacities with peribronchial cuffing throughout both lungs. No improvement in lung opacities compared to the previous examination. Blunting of the right costophrenic angle, possible right pleural effusion. XR/XR chest 1V portable [id number] IMPRESSION: Abnormal chest as above.
[2025-10-26 06:03] LABS: Blood Urea Nitrogen 60 mg/dL (8-23); Calcium 8.4 mg/dL (8.5-10.5); Carbon Dioxide 26 mmol/L (22-29); Chloride 97 mmol/L (98-107); Glucose 207 mg/dL (65-115); Osmolality Calculated 305 mOsm/kg (285-295); Sodium 136 mmol/L (136-145)
[2025-10-26 06:04] LABS: Anion Gap 17.2 (5-19); Potassium 4.2 mmol/L (3.5-5.1)
[2025-10-26] MEDS: FUROsemide 10 mg/mL SDV 10mL 80 MG IVP ×2 (09:30→20:53)
--- NOTE | 2025-10-26 10:26 | P.PN_ITS ---
Subjective 2 Subjective: Patient has no new complaints on 8L HF Medications: Reviewed: Yes Vitals/I&O/Wt Last Vital Signs Temp 97.5 F L 10/26/25 08:00 Pulse 99 10/26/25 08:00 Resp 21 H 10/26/25 08:00 BP 112/62 10/26/25 08:00 Pulse Ox 92 10/26/25 08:00 O2 Del Method High Flow Nasal Cannula 10/26/25 08:00 O2 Flow Rate 8 10/26/25 08:00 FiO2 40 10/24/25 11:05 10/25/25 10/26/25 10/26/25 22:59 06:59 14:59 Intake Total 930 / 1560 500 / 2060 300 / 300 Output Total 3481 / 3781 Balance 930 / 1260 -2981 / -1721 300 / 300 Weight last 48 hrs Weight 81 kg Weight 80.739 kg Physical Exam 2 Narrative: GEN: nad, alert, on HF oxygen, AOX3 HEAD: normocephalic, atraumatic EYES: eomi, anicteric sclera HEENT: mmm NECK: no jvd CV: rrr LUNGS: diminished BS bilaterally ABD: soft, nt, nd EXT: +1-2 BLE edema NEURO: grossly normal SKIN: no rash Data 10/26/25 05:35 10/26/25 05:35 A&P Assessment and plan 1. End stage renal disease on dialysis: Plan: 1. End-stage renal disease- Patient's HD was discontinued 2 weeks prior due to possible renal recovery; however, he presented with volume overload and his HD was resumed. He received HD yesterday. He is scheduled for a thoracentesis, egd and bronchoscopy today.. I will plan on hd tomorrow.. He will need outpatient HD arrangements 2. Acute on chronic Hypoxic respiratory failure - I will cont uf with hd as tolerated 3. Anemia in CKD- s/p renny. he is s/p 2 units PRBC transfusion. cont to monitor hgb and transfuse as indicated 5. History of pulmonary emboli 6. Hypotension- cont midodrine PDMP PDMP Reviewed: Not Reviewed Attestations 2 Medical Necessity Statement*: esrd Time Spent in Patient Care: 25 minutes Coding Level of Care Code Acute Code for Chg Fwd Diagnoses End stage renal disease on dialysis N18.6; Z99.2
--- NOTE | 2025-10-26 12:04 | PM.PN ---
Subjective Subjective: Hospital course, labs appreciated. Patient sitting comfortably in recliner complaining of difficulty in breathing on minimal movement. Fianc? at bedside. Currently on 8 L of high flow nasal cannula saturating in low 90s. Denies any chest pain. Medications: Reviewed: Yes Vitals/I&O/Wt Last Vital Signs Temp 97.5 F L 10/26/25 08:00 Pulse 98 10/26/25 11:07 Resp 16 10/26/25 11:07 BP 112/62 10/26/25 08:00 Pulse Ox 90 10/26/25 11:07 O2 Del Method High Flow Nasal Cannula 10/26/25 11:07 O2 Flow Rate 8 10/26/25 11:07 FiO2 40 10/24/25 11:05 10/25/25 10/26/25 10/26/25 22:59 06:59 14:59 Intake Total 930 / 1560 500 / 2060 300 / 300 Output Total 3481 / 3781 Balance 930 / 1260 -2981 / -1721 300 / 300 Weight last 48 hrs Weight 81 kg Weight 80.739 kg Physical Exam Narrative: Awake alert oriented to person place time and situation. No acute distress Heart regular rate and rhythm normal S1-S2 without loud murmur Pulmonary: Normal respirations on all lung perera, decreased air entry in bilateral lower zone right more than left, fine crackles within the lower lung perera with occasional rhonchi and coarse crackles Abdomen soft nontender nondistended no rebound or guarding Extremities no significant edema Data 10/26/25 05:35 10/26/25 05:35 A&P Assessment and plan 1. Acute respiratory failure with hypoxia: Multifactorial. Pulmonary hypertension Chronic PE Acute on chronic systolic heart failure Renal failure with fluid overload Pleural effusions most likely consistent with fluid overload/acute on chronic systolic CHF with renal failure. Patient was recently discontinued from hemodialysis but thought being that patient had renal recovery. However the patient is now not able to maintain his fluid status He was initially on heated high flow has been on 8 L nasal cannula for last few days Next steps. 1. Patient would likely benefit from thoracentesis. Patient will be made n.p.o. after midnight for possible intervention. 2. Recommend bronchoscopy biopsy and assessment of mass with mediastinal adenopathy and its effect on the bronchial tree I would be hopeful that thoracentesis would provide further relief and aid in oxygen weaning. 2. ESRD needing dialysis: Has been on dialysis for a few months. Was recently stopped due to suspected renal recovery. However patient has required hemodialysis since admission. ? 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 Avoid nephrotoxic agents ? Strict I&Os, dly wts ? Fluid restriction 1L 3. Hypotension: Resolved off Levophed for 48 hours now Continue midodrine 4. Thrombocytopenia: Unknown etiology. Questionable etiology from cirrhosis as seen on CT. Has received 1 sixpack previously. General surgery recommends transfusion to goal of 50. However if patient has no active bleeding which general surgery does not believe then may not be indicated. Would agree to have platelet transfusion ordered and on hold for possible procedures tomorrow 5. Hypomagnesemia: Replaced 6. Type 2 diabetes mellitus with other specified complication, unspecified whether detention insulin use: 7. Lung mass: With mediastinal lymphadenopathy. The mass is growing this is most likely malignant. As above apparently was the first to inform the patient that this mass is most likely malignant. He and his fianc?e mentioned that they reached out to his laundry clerk Dr. Lerma at [facility]. They were told that he should have that worked up once he has stabilized. 8. Pulmonary embolism: anticoagulation on hold due to thrombocytopenia anemia and possible GI bleed 9. 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 Anemia: Received 1 RBC transfusion previously I believe on 10/21/2025. Will order 2 units of PRBCs today for hemoglobin of 6.9 in light of his acute on chronic respiratory failure this may help wean oxygen. 11. Postobstructive pneumonia: With lung collapse 12. Goals of care, counseling/discussion: 13. Acute exacerbation of CHF (congestive heart failure): 14. Pulmonary hypertension: 15. S/P TAVR (transcatheter aortic valve replacement): Plan: Note patient has laundry clerk for pulmonary hypertension named Dr. Espana at [facility]. Other medical conditions Hypothyroidism ? TSH 2.53 ? Continue home levothyroxine 112 mcg PO Hyperlipidemia ?Continue home atorvastatin 40mg p.o. dly DM2 Consistent carb diet ? Blood glucose monitoring, ACHS ? Low regimen sliding scale ? Hypoglycemia protocol Pulmonary HTN ? Continue home medication Adempas and opsumit ? Follows outpatient at [facility] Patient without significant improvement over the last few days. Initiated transfer to [facility]. They do not have any beds but they will place him on a waiting list since patient sees a physician of theirs as above. Unfortunately patient has unstable condition and needs aggressive interventions and thus will proceed with probable procedures tomorrow with pulmonary and possible EGD from surgery. CODE STATUS: Full code GI prophylaxis: Protonix 40 mg IVP BID VTE prophylaxis: SCDs, home medication Eliquis on hold given concern for thrombocytopenia. Plan for the day: Acute hypoxic respiratory failure impression is multifactorial in setting of fluid overload in setting of ESRD on hemodialysis diastolic heart failure, postobstructive pneumonia in setting of lung mass, chronic PE with concerns for pleural effusion. Oxygen supplementation keep saturation over 88%. Strict input of charting, daily weights. Fluid restriction to less than 1500 cc. For now continue with IV Lasix 80 mg twice daily. Plan for dialysis as per nephrology team. Appreciate blood culture, sputum culture. MRSA swab negative. Discontinue linezolid. Continue with cefepime to finish a 10-day course. Continue with IV fluconazole to finish 10-day course. Goal blood pressure less than 140/90 mmHg mean over 65. Continue with midodrine 10 mg 3 times daily for now. Not on vasopressors for now. Pulmicort twice daily, DuoNeb every 6 hour. Appreciate platelet count. No active bleeding for now. Hemoglobin 9 today. Continue to monitor daily. Had extensive goals of care discussions. Patient and fianc? at bedside. We discussed unfortunately patient's significant respiratory failure is due to fluid overload in setting of end-stage renal disease with concerns for postobstructive pneumonia given lung mass with high chance of malignancy. Discussed treatment option going forward would be for possible bronchoscopy and biopsy to determine malignancy and possible treatment of cancer accordingly while continuation of dialysis and antibiotics for now. Discussed dangers with this plan would be for him to be ventilator dependent given concerns for significant fluid overload even though he has been on dialysis since admission along with bleeding concerns given significant thrombocytopenia. Other option discussed was possible transition to hospice/comfort care given significant disease, chronic illness, deconditioning along with high concerns for malignancy. Discussed comfort care would mean to concentrate more on his comfort rather than trying to get him better. Discussed hospice would mean no dialysis. It would mean to maintain his comfort while nature takes its own course which could mean that he . Patient and family verbalizes understanding. They would like to go ahead with hospice care for now. Discussed thoracentesis could be done for palliative measures as well though he would need to understand the risks for thoracentesis given his thrombocytopenia with concerns for possible risk of hemothorax, pneumothorax. Patient verbalized understanding and would like to hold off on thoracentesis for now. Case management alerted. PDMP PDMP Reviewed: Not Reviewed Attestations Medical Necessity Statement*: Requires further hospitalization for management of hypoxic respiratory failure in setting of COPD, fluid overload, lung mass, postobstructive pneumonia, end-stage renal disease dependent on hemodialysis provide further goals of care discussions were done, thrombocytopenia, pleural effusion Diagnoses Acute respiratory failure with hypoxia J96.01 ESRD needing dialysis N18.6; Z99.2 Hypotension I95.9 Thrombocytopenia D69.6 Hypomagnesemia E83.42 Type 2 diabetes mellitus with other specified complication, unspecified whether intermodal customer service insulin use E11.69 Diabetes mellitus complication status: with other specified complication Diabetes mellitus intermodal customer service insulin use: unspecified detention insulin use status Lung mass R91.8 Pulmonary embolism I26.99 Respiratory infection due to fungus J98.8; B49 Anemia D64.9 Postobstructive pneumonia J18.9 Goals of care, counseling/discussion Z71.89 Acute exacerbation of CHF (congestive heart failure) I50.9 Pulmonary hypertension I27.20 S/P TAVR (transcatheter aortic valve replacement) Z95.2
--- NOTE | 2025-10-26 12:41 | PC.NURSE ---
Dr. Morfin to bedside and spoke with patient and patients significant other about goals of care. Decision made per patient to proceed with hospice care and go home. Decision made to not have the thoracentesis done today. manager android to bedside to talk with patient about hospice care and planning started.
[2025-10-26] MEDS: fluconazole premix 200 MG/100 ML PREMIX 100 MG IV (14:56)
--- NOTE | 2025-10-26 15:34 | PC.NURSE ---
Hospice nurse to bedside to discuss home hospice with patient. Patient and family states that they are not sure they are ready to stop dialysis. Requests that she come back tomorrow to talk with them about it. Notified Dr. Morfin.
[2025-10-26] MEDS: cefepime 1,000 mg SDV 1000 MG IVP (16:35)
[2025-10-26] MEDS: ondansetron 2 mg/ML SDV 2 mL 4 MG IVP (17:30)
[2025-10-26 18:50] LABS: Procalcitonin 0.51 ng/mL (0-0.5)
[2025-10-27] VITALS (22 sets, daily range): BP systolic 104–147; BP diastolic 43–70; PULSE 94–110; RESP 16–24; TEMP 36.6–37; O2SAT 85–98
[2025-10-27 03:18] LABS: Hematocrit 25.2 % (37-53); Hemoglobin 8.10 g/dL (11.27-16.99); Mean Corpuscular HGB Conc 32.1 g/dL (30-55); Mean Corpuscular Hemoglobin 30.6 pg (27-33); Mean Corpuscular Volume 95.1 fl (82-101); Nucleated Red Blood Cells % 0 %; Red Blood Count 2.65 10^6/uL (3.85-5.65); White Blood Count 10.53 10^3/uL (3.29-11.43)
[2025-10-27 03:25] LABS: Platelet Count 28 10^3/cmm (157-399)
[2025-10-27 03:37] LABS: Alanine Aminotransferase 20 U/L (0-41); Albumin Level 3.4 g/dL (3.5-5.2); Alkaline Phosphatase 179 U/L (40-130); Anion Gap 19.6 (5-19); Aspartate Amino Transferase 29 U/L (0-40); Calcium 7.9 mg/dL (8.5-10.5); Carbon Dioxide 23 mmol/L (22-29); Chloride 98 mmol/L (98-107); Globulin 1.8 g/dL (1.3-4.6); Glucose 173 mg/dL (65-115); Osmolality Calculated 311 mOsm/kg (285-295); Potassium 4.6 mmol/L (3.5-5.1); Sodium 136 mmol/L (136-145); Total Protein 5.2 g/dL (6.6-8.7)
[2025-10-27 04:00] LABS: Blood Urea Nitrogen 81 mg/dL (8-23)
[2025-10-27] MEDS: methylPREDNISolone sod succ 40 mg/mL INJ 20 MG IVP ×2 (04:33→17:52)
[2025-10-27] MEDS: saline nasal spray 44mL Btl 1 SPRAY NASAL ×2 (04:34→17:52)
[2025-10-27] MEDS: RIOCIGUAT 2.5 MG 2.5 EACH PO ×2 (04:34→13:28)
[2025-10-27] MEDS: fluticasone nasal spray 16gm Btl 1 SPRAY INTRANASAL ×2 (04:35→17:52)
--- NOTE | 2025-10-27 09:13 | P.PN_ITS ---
Subjective 2 Subjective: Patient was seen and examined. Patient is short of breath on high flow oxygen. He is requesting dialysis today and then wants to go hospice care he is weak he is nauseated and he understands that without dialysis he will likely pass away. Medications: Reviewed: Yes Medication Review Details: Current Medications Acetaminophen (Acetaminophen 500 Mg Tablet) 1,000 mg PO Q6H PRN PRN Reason: Fever Or Pain Albuterol/Ipratropium (Ipratropium-Albuterol 3 Ml Neb) 3 ml INHALATION QID.RESPIRATORY CHUY Last Admin: 10/27/25 07:56 Dose: 3 ml Albuterol/Ipratropium (Ipratropium-Albuterol 3 Ml Neb) 3 ml INHALATION Q4H PRN PRN Reason: SHORTNESS OF BREATH Last Admin: 10/19/25 04:18 Dose: 3 ml Apixaban (Apixaban 2.5 Mg Tablet) 2.5 mg PO BID CHUY On Hold: 10/18/25 07:45 Last Admin: 10/18/25 04:09 Dose: 2.5 mg Atorvastatin Calcium (Atorvastatin 40 Mg Tablet) 40 mg PO DAILY CHUY Last Admin: 10/27/25 04:33 Dose: 40 mg Benzonatate (Benzonatate 100 Mg Capsule) 100 mg PO TID CHUY Last Admin: 10/27/25 04:33 Dose: 100 mg Budesonide (Budesonide 0.5 Mg/2 Ml Neb) 0.5 mg INHALATION BID.RESPIRATORY CHUY Last Admin: 10/27/25 07:56 Dose: 0.5 mg Denture Adhesive (Fixodent 39 Gm Tube) 1 applic DENTAL PRN PRN PRN Reason: denture adhesive Docusate Sodium (Docusate Sodium 100 Mg Capsule) 100 mg PO BID [facility] Last Admin: 10/27/25 04:33 Dose: 100 mg Fluticasone Propionate (Fluticasone Nasal Eddy 16gm Btl) 1 spray INTRANASAL BID CHUY Last Admin: 10/27/25 04:35 Dose: 1 spray Furosemide (Furosemide 10 Mg/Ml Sdv 10ml) 80 mg IVP Q12H CHUY Last Admin: 10/26/25 20:53 Dose: 80 mg Glucagon (Glucagon 1 Mg/Ml Kit 1 Ml) 1 mg IM ONCE PRN; Protocol PRN Reason: Adult Acute Hypoglycemia Nursing Prot. Dextrose (D5w) 500 mls @ 0 mls/hr IV ONCE PRN; Protocol PRN Reason: Adult Acute Hypoglycemia Prot Dextrose (D10w) 125 mls @ 750 mls/hr IV PRN PRN; Protocol PRN Reason: Adult Acute Hypoglycemia Nursing Protocol Dextrose (D10w) 250 mls @ 1,000 mls/hr IV PRN PRN; Protocol PRN Reason: Adult Acute Hypoglycemia Nursing Protocol Albumin Human (Albumin) 25 g in 100 mls @ 60 mls/hr IV TID CHUY On Hold: 10/17/25 08:02 Last Infusion: 10/17/25 06:05 Dose: Infused Fluconazole (Diflucan Premix) 200 mg in 100 mls @ 100 mls/hr IV Q24H CHUY Stop: 10/28/25 14:59 Last Infusion: 10/26/25 19:10 Dose: Infused Albumin Human (Albumin) 12.5 gm in 50 mls @ 60 mls/hr IV PRN PRN PRN Reason: Hypotension and/or symptomatic Sodium Chloride (Sodium Chloride 0.9%) 1,000 mls @ 0 mls/hr IV .Q0M PRN PRN Reason: hypotension or symptomatic Insulin Human Lispro (Insulin Lispro 100 Unit/1 Ml) 0 unit SUBCUT WM&BEDTIME CHUY; Protocol Last Admin: 10/26/25 20:53 Dose: 2 unit Levothyroxine Sodium (Levothyroxine 112 Mcg Tablet) 112 mcg PO DAILY [facility] Last Admin: 10/27/25 04:33 Dose: 112 mcg Methylprednisolone Sodium Succinate (Methylprednisolone Sod Succ 40 Mg/Ml Inj) 20 mg IVP Q12H CHUY Last Admin: 10/27/25 04:33 Dose: 20 mg Midodrine (Midodrine 5 Mg Tablet) 10 mg PO TID CHUY Last Admin: 10/27/25 04:33 Dose: 10 mg Non-Formulary Medication (Riociguat [Adempas]) 2.5 mg PO TID CHUY Last Admin: 10/27/25 04:34 Dose: 2.5 mg Non-Formulary Medication( Macitentan 10 Mg Tab ) 1 each PO DAILY CHUY Last Admin: 10/27/25 04:34 Dose: 1 each Ondansetron HCl (Ondansetron 2 Mg/Ml Sdv 2 Ml) 4 mg IVP Q8H PRN PRN Reason: vomiting, or N/V if npo Last Admin: 10/26/25 17:30 Dose: 4 mg Pantoprazole Sodium (Pantoprazole Dr 40 Mg Tablet) 40 mg PO BID [facility] Last Admin: 10/27/25 04:33 Dose: 40 mg Sodium Chloride (Saline Nasal Eddy 44ml Btl) 1 spray NASAL BID [facility] Last Admin: 10/27/25 04:34 Dose: 1 spray Vitals/I&O/Wt Last Vital Signs Temp 98.1 F 10/27/25 07:44 Pulse 94 10/27/25 07:50 Resp 18 10/27/25 07:50 BP 147/62 10/27/25 04:00 Pulse Ox 92 10/27/25 07:50 O2 Del Method Nasal Cannula 10/27/25 07:50 O2 Flow Rate 8 10/27/25 07:50 FiO2 40 10/24/25 11:05 10/26/25 10/27/25 10/27/25 22:59 06:59 14:59 Intake Total 700 / 1200 Output Total 100 / 100 300 / 400 Balance 600 / 1100 -300 / 800 Weight last 48 hrs Weight 81 kg Physical Exam 2 Narrative: Patient is uncomfortable in bed vital signs noted on 8 L nasal cannula. HEENT normocephalic atraumatic Neck is supple has JVP. Lungs have dullness and crackles bilaterally. Heart is regular Abdomen is soft positive bowel sounds. Extremities 1+ edema. Neuro awake and alert and oriented. Dialysis access is anterior chest wall permacath. Data 10/27/25 03:01 10/27/25 03:01 A&P Assessment and plan 1. ESRD needing dialysis: 70-year-old gentleman with underlying hypothyroidism pulmonary hypertension diabetes growing lung mass ESRD was on dialysis temporarily stop dialysis now came in with effusions and shortness of breath. Patient also has history of chronic PE with underlying hypoxemia, heart failure preserved EF, history of TAVR are, pulmonary embolism. The patient has decided that he would like to go hospice care they are requesting for dialysis to make him little more comfortable before he does go on hospice. Will dialyze today for 3 hours with a 3K bath and attempt to remove 2 L. Patient has anemia and thrombocytopenia consider transfusions as per medicine. Given pulmonary embolism and lung mass would be conservative and Epogen dosing. Case discussed in detail with patient's nurse medications reviewed On discharge please give furosemide can dose up to 80 mg p.o. twice daily Patient seen and examined with the aid of a nurse using A/V equipment. The patient consented to telehealth and to dialysis Plan: See above PDMP PDMP Reviewed: Not Reviewed Attestations 2 Medical Necessity Statement*: ESRD, respiratory distress, anemia thrombocytopenia Time Spent in Patient Care: 16 - 35 minutes (>than 50% of time sp ent in counselling and/or direct pt care on unit) . Coding Level of Care Code Acute Code for [facility] Fwd Diagnoses ESRD needing dialysis N18.6; Z99.2
--- NOTE | 2025-10-27 12:11 | PM.PN ---
Subjective Subjective: No acute vents overnight. Patient has remained hemodynamically stable and afebrile. Currently 8 L of oxygen supplementation saturating in low 90s. Overnight did have saturation dropping down to mid 80s. Denies any pain. Medications: Reviewed: Yes Vitals/I&O/Wt Last Vital Signs Temp 98.1 F 10/27/25 07:44 Pulse 95 10/27/25 11:28 Resp 18 10/27/25 11:20 BP 123/55 10/27/25 10:00 Pulse Ox 93 10/27/25 11:20 O2 Del Method Nasal Cannula 10/27/25 11:20 O2 Flow Rate 8 10/27/25 11:20 FiO2 40 10/24/25 11:05 10/26/25 10/27/25 10/27/25 22:59 06:59 14:59 Intake Total 700 / 1200 290 / 290 Output Total 100 / 100 300 / 400 200 / 200 Balance 600 / 1100 -300 / 800 90 / 90 Weight last 48 hrs Weight 81 kg Physical Exam Narrative: Awake alert oriented to person place time and situation. No acute distress Heart regular rate and rhythm normal S1-S2 without loud murmur Pulmonary: Normal respirations on all lung perera, decreased air entry in bilateral lower zone right more than left, fine crackles within the lower lung perera with occasional rhonchi and coarse crackles Abdomen soft nontender nondistended no rebound or guarding Extremities no significant edema Data 10/27/25 03:01 10/27/25 03:01 A&P Assessment and plan 1. Acute respiratory failure with hypoxia: Multifactorial. Pulmonary hypertension Chronic PE Acute on chronic systolic heart failure Renal failure with fluid overload Pleural effusions most likely consistent with fluid overload/acute on chronic systolic CHF with renal failure. Patient was recently discontinued from hemodialysis but thought being that patient had renal recovery. However the patient is now not able to maintain his fluid status He was initially on heated high flow has been on 8 L nasal cannula for last few days Next steps. 1. Patient would likely benefit from thoracentesis. Patient will be made n.p.o. after midnight for possible intervention. 2. Recommend bronchoscopy biopsy and assessment of mass with mediastinal adenopathy and its effect on the bronchial tree I would be hopeful that thoracentesis would provide further relief and aid in oxygen weaning. 2. ESRD needing dialysis: Has been on dialysis for a few months. Was recently stopped due to suspected renal recovery. However patient has required hemodialysis since admission. ? 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 Avoid nephrotoxic agents ? Strict I&Os, dly wts ? Fluid restriction 1L 3. Hypotension: Resolved off Levophed for 48 hours now Continue midodrine 4. Thrombocytopenia: Unknown etiology. Questionable etiology from cirrhosis as seen on CT. Has received 1 sixpack previously. General surgery recommends transfusion to goal of 50. However if patient has no active bleeding which general surgery does not believe then may not be indicated. Would agree to have platelet transfusion ordered and on hold for possible procedures tomorrow 5. Hypomagnesemia: Replaced 6. Type 2 diabetes mellitus with other specified complication, unspecified whether intermediate insulin use: 7. Lung mass: With mediastinal lymphadenopathy. The mass is growing this is most likely malignant. As above apparently was the first to inform the patient that this mass is most likely malignant. He and his fianc?e mentioned that they reached out to his solar designer Dr. Lerma at [facility]. They were told that he should have that worked up once he has stabilized. 8. Pulmonary embolism: anticoagulation on hold due to thrombocytopenia anemia and possible GI bleed 9. 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 Anemia: Received 1 RBC transfusion previously I believe on 10/21/2025. Will order 2 units of PRBCs today for hemoglobin of 6.9 in light of his acute on chronic respiratory failure this may help wean oxygen. 11. Postobstructive pneumonia: With lung collapse 12. Goals of care, counseling/discussion: 13. Acute exacerbation of CHF (congestive heart failure): 14. Pulmonary hypertension: 15. S/P TAVR (transcatheter aortic valve replacement): Plan: Note patient has solar designer for pulmonary hypertension named Dr. Espana at [facility]. Other medical conditions Hypothyroidism ? TSH 2.53 ? Continue home levothyroxine 112 mcg PO Hyperlipidemia ?Continue home atorvastatin 40mg p.o. dly DM2 Consistent carb diet ? Blood glucose monitoring, ACHS ? Low regimen sliding scale ? Hypoglycemia protocol Pulmonary HTN ? Continue home medication Adempas and opsumit ? Follows outpatient at [facility] Patient without significant improvement over the last few days. Initiated transfer to [facility]. They do not have any beds but they will place him on a waiting list since patient sees a physician of theirs as above. Unfortunately patient has unstable condition and needs aggressive interventions and thus will proceed with probable procedures tomorrow with pulmonary and possible EGD from surgery. CODE STATUS: Full code GI prophylaxis: Protonix 40 mg IVP BID VTE prophylaxis: SCDs, home medication Eliquis on hold given concern for thrombocytopenia. Plan for the day: Acute hypoxic respiratory failure impression is multifactorial in setting of fluid overload in setting of ESRD on hemodialysis diastolic heart failure, postobstructive pneumonia in setting of lung mass, chronic PE with concerns for pleural effusion. Oxygen supplementation keep saturation over 88%. Strict input of charting, daily weights. Fluid restriction to less than 1500 cc. For now continue with IV Lasix 80 mg twice daily. Plan for dialysis as per nephrology team. Appreciate blood culture, sputum culture. MRSA swab negative. Discontinue linezolid. Continue with cefepime to finish a 10-day course. Continue with IV fluconazole to finish 10-day course. Goal blood pressure less than 140/90 mmHg mean over 65. Continue with midodrine 10 mg 3 times daily for now. Not on vasopressors for now. Pulmicort twice daily, DuoNeb every 6 hour. Appreciate platelet count. No active bleeding for now. Hemoglobin 9 today. Continue to monitor daily. Had extensive goals of care discussions. Patient and fianc? at bedside. We discussed unfortunately patient's significant respiratory failure is due to fluid overload in setting of end-stage renal disease with concerns for postobstructive pneumonia given lung mass with high chance of malignancy. Discussed treatment option going forward would be for possible bronchoscopy and biopsy to determine malignancy and possible treatment of cancer accordingly while continuation of dialysis and antibiotics for now. Discussed dangers with this plan would be for him to be ventilator dependent given concerns for significant fluid overload even though he has been on dialysis since admission along with bleeding concerns given significant thrombocytopenia. Other option discussed was possible transition to hospice/comfort care given significant disease, chronic illness, deconditioning along with high concerns for malignancy. Discussed comfort care would mean to concentrate more on his comfort rather than trying to get him better. Discussed hospice would mean no dialysis. It would mean to maintain his comfort while nature takes its own course which could mean that he . Patient and family verbalizes understanding. They would like to go ahead with hospice care for now. Discussed thoracentesis could be done for palliative measures as well though he would need to understand the risks for thoracentesis given his thrombocytopenia with concerns for possible risk of hemothorax, pneumothorax. Patient verbalized understanding and would like to hold off on thoracentesis for now. Case management alerted. Plan for the day: 10/27: Yesterday after extensive goals of care discussion when patient was visited by hospice nurse he had changed his mind as he wanted to continue dialysis and did not want to pursue hospice. Today morning on examination he states he has dark in last 24 hours and wants to be discharged on hospice. He did discuss in detail again that hospice would mean that he would not get any dialysis after discharge, consultation would be to keep him comfortable while nature takes its own course without direction of treatment against any active disease. If and when he is discharged on hospice he may become sick again plan will be to continue to keep him comfortable at home while nature takes its own course which could mean that he could . He verbalized understanding and wants to go ahead with hospice. Will plan for dialysis today. Hospice referral sent. Case management alerted. 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
[2025-10-27] MEDS: fluconazole premix 200 MG/100 ML PREMIX 100 MG IV (17:49)
[2025-10-27] MEDS: FUROsemide 10 mg/mL SDV 10mL 80 MG IVP (21:06)
[2025-10-28] VITALS (7 sets, daily range): BP systolic 116–148; BP diastolic 54–79; PULSE 98–109; RESP 18–28; TEMP 36.7; O2SAT 86–94
[2025-10-28] MEDS: methylPREDNISolone sod succ 40 mg/mL INJ 20 MG IVP (04:44)
--- NOTE | 2025-10-28 07:44 | PM.PN ---
Subjective Subjective: Patient is short of breath coughing wheezing has edema. Stated dialysis did happen yesterday but he does not want to go home with hospice And stop doing any further dialysis. Medications: Reviewed: Yes Medication Review Details: Current Medications Acetaminophen (Acetaminophen 500 Mg Tablet) 1,000 mg PO Q6H PRN PRN Reason: Fever Or Pain Albuterol/Ipratropium (Ipratropium-Albuterol 3 Ml Neb) 3 ml INHALATION QID.RESPIRATORY CHUY Last Admin: 10/27/25 20:15 Dose: 3 ml Albuterol/Ipratropium (Ipratropium-Albuterol 3 Ml Neb) 3 ml INHALATION Q4H PRN PRN Reason: SHORTNESS OF BREATH Last Admin: 10/19/25 04:18 Dose: 3 ml Apixaban (Apixaban 2.5 Mg Tablet) 2.5 mg PO BID CHUY On Hold: 10/18/25 07:45 Last Admin: 10/18/25 04:09 Dose: 2.5 mg Atorvastatin Calcium (Atorvastatin 40 Mg Tablet) 40 mg PO DAILY CHUY Last Admin: 10/28/25 04:44 Dose: 40 mg Benzonatate (Benzonatate 100 Mg Capsule) 100 mg PO TID CHUY Last Admin: 10/28/25 04:44 Dose: 100 mg Budesonide (Budesonide 0.5 Mg/2 Ml Neb) 0.5 mg INHALATION BID.RESPIRATORY CHUY Last Admin: 10/27/25 20:14 Dose: 0.5 mg Denture Adhesive (Fixodent 39 Gm Tube) 1 applic DENTAL PRN PRN PRN Reason: denture adhesive Docusate Sodium (Docusate Sodium 100 Mg Capsule) 100 mg PO BID [facility] Last Admin: 10/28/25 04:50 Dose: Not Given Fluticasone Propionate (Fluticasone Nasal [place] 16gm Btl) 1 spray INTRANASAL BID [facility] Last Admin: 10/28/25 04:51 Dose: Not Given Furosemide (Furosemide 10 Mg/Ml Sdv 10ml) 80 mg IVP Q12H [facility] Last Admin: 10/27/25 21:06 Dose: 80 mg Glucagon (Glucagon 1 Mg/Ml Kit 1 Ml) 1 mg IM ONCE PRN; Protocol PRN Reason: Adult Acute Hypoglycemia Nursing Prot. Dextrose (D5w) 500 mls @ 0 mls/hr IV ONCE PRN; Protocol PRN Reason: Adult Acute Hypoglycemia Prot Dextrose (D10w) 125 mls @ 750 mls/hr IV PRN PRN; Protocol PRN Reason: Adult Acute Hypoglycemia Nursing Protocol Dextrose (D10w) 250 mls @ 1,000 mls/hr IV PRN PRN; Protocol PRN Reason: Adult Acute Hypoglycemia Nursing Protocol Albumin Human (Albumin) 25 g in 100 mls @ 60 mls/hr IV TID CHUY On Hold: 10/17/25 08:02 Last Infusion: 10/17/25 06:05 Dose: Infused Fluconazole (Diflucan Premix) 200 mg in 100 mls @ 100 mls/hr IV Q24H CHUY Stop: 10/28/25 14:59 Last Infusion: 10/27/25 19:14 Dose: Infused Albumin Human (Albumin) 12.5 gm in 50 mls @ 60 mls/hr IV PRN PRN PRN Reason: Hypotension and/or symptomatic Sodium Chloride (Sodium Chloride 0.9%) 1,000 mls @ 0 mls/hr IV .Q0M PRN PRN Reason: hypotension or symptomatic Insulin Human Lispro (Insulin Lispro 100 Unit/1 Ml) 0 unit SUBCUT WM&BEDTIME CHUY; Protocol Last Admin: 10/27/25 21:11 Dose: 2 unit Levothyroxine Sodium (Levothyroxine 112 Mcg Tablet) 112 mcg PO DAILY [facility] Last Admin: 10/28/25 04:43 Dose: 112 mcg Methylprednisolone Sodium Succinate (Methylprednisolone Sod Succ 40 Mg/Ml Inj) 20 mg IVP Q12H CHUY Last Admin: 10/28/25 04:44 Dose: 20 mg Midodrine (Midodrine 5 Mg Tablet) 10 mg PO TID CHUY Last Admin: 10/28/25 04:44 Dose: 10 mg Non-Formulary Medication (Riociguat [Adempas]) 2.5 mg PO TID CHUY Last Admin: 10/28/25 04:51 Dose: Not Given Non-Formulary Medication( Macitentan 10 Mg Tab ) 1 each PO DAILY CHUY Last Admin: 10/28/25 04:44 Dose: 1 each Ondansetron HCl (Ondansetron 2 Mg/Ml Sdv 2 Ml) 4 mg IVP Q8H PRN PRN Reason: vomiting, or N/V if npo Last Admin: 10/26/25 17:30 Dose: 4 mg Pantoprazole Sodium (Pantoprazole Dr 40 Mg Tablet) 40 mg PO BID [facility] Last Admin: 10/28/25 04:43 Dose: 40 mg Sodium Chloride (Saline Nasal [place] 44ml Btl) 1 spray NASAL BID [facility] Last Admin: 10/28/25 04:51 Dose: Not Given Vitals/I&O/Wt Last Vital Signs Temp 98 F 10/27/25 19:51 Pulse 98 10/28/25 06:00 Resp 26 H 10/28/25 04:00 BP 148/79 10/28/25 04:00 Pulse Ox 94 10/28/25 04:00 O2 Del Method High Flow Nasal Cannula 10/27/25 22:00 O2 Flow Rate 8 10/27/25 22:00 FiO2 40 10/24/25 11:05 10/27/25 10/28/25 10/28/25 22:59 06:59 14:59 Intake Total 740 / 1148 Output Total 1436 / 1636 100 / 1736 Balance -696 / -488 -100 / -588 Weight last 48 hrs Weight 79.832 kg Weight 81 kg Physical Exam Narrative: Patient is uncomfortable in bed vital signs noted on 8 L nasal cannula. HEENT normocephalic atraumatic Neck is supple has JVP. Lungs have dullness and crackles bilaterally. Heart is regular Abdomen is soft positive bowel sounds. Extremities 1+ edema. Neuro awake and alert and oriented. Dialysis access is anterior chest wall permacath. Data 10/27/25 03:01 10/27/25 03:01 A&P Assessment and plan 1. ESRD needing dialysis: 70-year-old gentleman with underlying hypothyroidism pulmonary hypertension diabetes growing lung mass ESRD was on dialysis temporarily stop dialysis now came in with effusions and shortness of breath. Patient also has history of chronic PE with underlying hypoxemia, heart failure preserved EF, history of TAVR are, pulmonary embolism. 1. End-stage renal disease. The patient has decided that he would like to go hospice care they are requesting to stop doing dialysis .. Patient has anemia and thrombocytopenia. Given pulmonary embolism and lung mass Case discussed in detail with patient's nurse medications reviewed On discharge please give furosemide can dose up to 80 mg p.o. twice daily Patient seen and examined with the aid of a nurse using A/V equipment. The patient consented to telehealth and to dialysis Plan: As per patient request and wants to be discharged to hospice care see above PDMP PDMP Reviewed: Not Reviewed Attestations Medical Necessity Statement*: Per medicine Time Spent in Patient Care: less than 15 minutes (>than 50% of time spent in counselling and/or direct pt care on unit). Coding Level of Care Code Acute Code for Chg Fwd Diagnoses ESRD needing dialysis N18.6; Z99.2
--- NOTE | 2025-10-28 07:57 | PM.DCS ---
Discharge Providers Date of Admission: 10/16/25 10:26 Date of Discharge: October 28, 2025 Attending Provider at Admission: Freeman Rodriguez Attending Provider at Discharge: Devante Morfin MD Consults: Pulmonology: Dr. Bagely Surgery: Dr. John Hannah nephrology Primary Care Provider: Patrick Nick MD Diagnoses at Discharge Discharge Diagnosis 1. ESRD needing dialysis: Reason for Visit Reason for Visit: Swelling legs General swelling Weakness Brief History: Per HPI Guy Wiseman is a 70 year old male w/ pmhx of end-stage renal disease (previously was on dialysis) hypothyroidism, CHF, hypertension, DM 2, COPD, and hx of pulmonary embolism, s/p TVAR on Eliquis. Came into the emergency department today for c/o shortness of breath w/ increased home oxygen use. Patient will be admitted to hospitalist services with nephrology consult for further medical management. Patient resting in bed on 5 L high flow nasal cannula oxygen, noted to be sitting at bedside during my evaluation. Patient states he had SOB x5 days with increasing oxygen requirements from his baseline 3 L NC. He reports associated s/s of generalized swelling(3+ edema to BLE), stiffness in legs, productive cough (clear phlegm), increased weakness, N/V, decreased urine output over last 3 days and 15lb wt gain since last dialysis session- about 2 weeks ago. Patient reports Eliquis was restarted at a lower dose of 2.5mg PO BID less than 2 weeks ago outpatient w/ PCP. He reports use of Zofran to alleviate nausea before meals. Patient denies fevers, nasal congestion, sore throat, headache, palpitations, chest pain, bright red/tarry stools, and diarrhea. -Of note patient was recently hospitalized here at [facility] discharged 09/15/25. Patient tx for NSTEMI, IVC filter placement, ESRD w/ dialysis, acute anemia w/ GI bleed, diabetic foot infection at that time. While in ED a CBC, CMP, PT, INR, A1c, BNP were collected, reviewed, and resulted as follows WBC 11.99, Neut 8.21, Hgb 8.40, HCT 28.1, Plt 80, PT 16.90, INR 1.28. NA 136, K 4.8, Mag 1.6, Detective Chief 3.6, BUN 58, Gabriella Phos 265, and a BNP 15,351. Lipid panel WNL. Blood cultures, pending. Patient received the following medications in ED: Azithromycin 500 mg IV, ceftriaxone 1000 mg IVP. Hospital Course Hospital Course Patient was admitted to the hospital further evaluation and management of hypoxic respiratory failure in setting of congestive heart failure, COPD exacerbation, pneumonia along with concerns for lung mass. He does have baseline end-stage renal disease. He was started on broad-spectrum IV antibiotics, nebulization treatment and eventually needed hemodialysis. He did have frequent episodes of hypotension for which he was started on midodrine. Even after multiple sessions of dialysis, patient being net negative, being on IV antibiotics his respiratory failure continued to worsen. Multiple goals of care discussions were done with the patient. Discussions are as below. We discussed unfortunately patient's significant respiratory failure is due to fluid overload in setting of end-stage renal disease with concerns for postobstructive pneumonia given lung mass with high chance of malignancy. Discussed treatment option going forward would be for possible bronchoscopy and biopsy to determine malignancy and possible treatment of cancer accordingly while continuation of dialysis and antibiotics for now. Discussed dangers with this plan would be for him to be ventilator dependent given concerns for significant fluid overload even though he has been on dialysis since admission along with bleeding concerns given significant thrombocytopenia. Other option discussed was possible transition to hospice/comfort care given significant disease, chronic illness, deconditioning along with high concerns for malignancy. Discussed comfort care would mean to concentrate more on his comfort rather than trying to get him better. Discussed hospice would mean no dialysis. It would mean to maintain his comfort while nature takes its own course which could mean that he . Patient and family verbalizes understanding. They would like to go ahead with hospice care for now. Discussed thoracentesis could be done for palliative measures as well though he would need to understand the risks for thoracentesis given his thrombocytopenia with concerns for possible risk of hemothorax, pneumothorax. Patient verbalized understanding and would like to hold off on thoracentesis for now. Eventually patient was transition to hospice/comfort care on 10/28 and is being discharged in comfortable condition back home with hospice. Physical Exam Narrative: Deferred given comfort care status. Discharge Data Studies Completed and Pending Completed Studies During Hospitalization Category Date Time Status CT chest wo con [id number] Routine Cat Scan 10/21/25 05:00 Completed CXRP [XR chest 1V portable [id number]] Routine Exams 10/26/25 06:00 Completed XR chest 1V portable [id number] Routine Exams 10/19/25 18:55 Completed XR chest 1V portable [id number] Stat Exams 10/16/25 09:34 Completed Pending at discharge Category Date Time Status Amylase, Pleural Fluid Routine Lab 10/25/25 15:11 Ordered ABO/Rh Type Routine Lab 10/25/25 08:19 Results Albumin Body Fluid Routine Lab 10/25/25 15:11 Ordered Anaerobic Culture Routine Lab 10/25/25 15:11 Ordered Body Fluid Analysis Routine Lab 10/25/25 15:11 Ordered Body Fluid Culture & GS Routine Lab 10/25/25 15:11 Ordered Body Fluid Specific [place] Routine Lab 10/25/25 15:11 Ordered Cholesterol Body Fluid Routine Lab 10/25/25 15:11 Ordered Complete Crossmatch Routine Lab 10/25/25 08:19 Results Cyto Order Verification Routine Lab 10/25/25 15:11 Ordered Fluid Alkaline Phos. Routine Lab 10/25/25 15:11 Ordered Fungal Culture not HR/SK/BL Routine Lab 10/25/25 15:11 Ordered Glucose Body Fluid Routine Lab 10/25/25 15:11 Ordered Irrad Leukoreduced PLT Pher Routine Lab 10/25/25 08:19 Results LDH Body Fluid Routine Lab 10/25/25 15:11 Ordered Leukocyte Reduced RBC Routine Lab 10/25/25 08:19 Results Total Protein Pleural Fluid Routine Lab 10/25/25 15:11 Ordered Type and Screen Routine Lab 10/25/25 08:19 Results pH Body Fluid Routine Lab 10/25/25 15:11 Ordered Cytology [PTH] Routine Pth 10/25/25 15:11 Ordered Radiology Impressions Chest CT 10/21/25 05:00 IMPRESSION: 1. 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 2. Enlarging bilateral pleural effusions, right larger than left. 3. Mediastinal lymphadenopathy again noted similar to that present on 09/08/2025. Chest X-Ray 10/26/25 06:00 IMPRESSION: Abnormal chest as above. Laboratory Results WBC 10.53 10^3/uL (3.29-11.43) 10/27/25 03:01 RBC 2.65 10^6/uL (3.85-5.65) L 10/27/25 03:01 Hgb 8.10 g/dL (11.27-16.99) L 10/27/25 03:01 Hct 25.2 % (37-53) L 10/27/25 03:01 MCV 95.1 fl (82-101) 10/27/25 03:01 MCH 30.6 pg (27-33) 10/27/25 03:01 MCHC 32.1 g/dL (30-55) 10/27/25 03:01 RDW 14.8 % (12.1-15.1) 10/27/25 03:01 Plt Count 28 10^3/cmm (157-399) L* 10/27/25 03:01 MPV 11.8 fL (7.4-10.4) H 10/27/25 03:01 Neut % (Auto) 80.8 % 10/27/25 03:01 Lymph % (Auto) 12.1 % 10/27/25 03:01 Lamb % (Auto) 5.8 % 10/27/25 03:01 Eos % (Auto) 0.0 % 10/27/25 03:01 Baso % (Auto) 0.1 % 10/27/25 03:01 Reticulocyte % (Auto) 0.2 % (0.5-2.0) L 10/18/25 04:00 Neut # (Auto) 8.51 10^3/uL (1.8-7.7) H 10/27/25 03:01 Lymph # (Auto) 1.3 10^3/uL (0.8-4.8) 10/27/25 03:01 Lamb # (Auto) 0.6 10^3/uL (0.2-0.9) 10/27/25 03:01 Eos # (Auto) 0.0 10^3/uL (0.0-0.8) 10/27/25 03:01 Baso # (Auto) 0.0 10^3/uL (0.0-0.1) 10/27/25 03:01 Nucleated RBC % (auto) 0 % 10/27/25 03:01 Nucleated RBCs # 0.0 /100WBC 10/27/25 03:01 Peripher Smr Path Cons Sent for review 10/18/25 04:00 Retic Production Index 0.11 10/18/25 04:00 Haptoglobin 232.0 mg/L (30-200) H 10/18/25 04:00 PT 17.10 SECONDS (12.1-14.9) H 10/26/25 05:35 INR 1.30 (0.8-1.2) H 10/26/25 05:35 APTT 29.7 SECONDS (23.9-36.7) 10/26/25 05:35 D-Dimer 2.17 ug/mLFEU (0-0.59) H 10/17/25 03:35 Sodium 136 mmol/L (136-145) 10/27/25 03:01 Potassium 4.6 mmol/L (3.5-5.1) 10/27/25 03:01 Chloride 98 mmol/L (98-107) 10/27/25 03:01 Carbon Dioxide 23 mmol/L (22-29) 10/27/25 03:01 Anion Gap 19.6 (5-19) H 10/27/25 03:01 BUN 81 mg/dL (8-23) H 10/27/25 03:01 Creatinine 3.3 mg/dL (0.7-1.2) H 10/27/25 03:01 GFR Calculation Not Reportable 10/27/25 03:01 Glucose 173 mg/dL (65-115) H 10/27/25 03:01 POC Glucose 180 mg/dL (70-110) H 10/27/25 20:28 Estimat Average Glucose 140 10/16/25 09:48 Hemoglobin A1c 6.5 % (4.0-6.0) H 10/16/25 09:48 Calculated Osmolality 311 mOsm/kg (285-295) H 10/27/25 03:01 Calcium 7.9 mg/dL (8.5-10.5) L 10/27/25 03:01 Phosphorus 5.0 mg/dL (2.5-4.5) H 10/24/25 03:18 Magnesium 1.8 mg/dL (1.7-2.3) 10/24/25 03:18 Total Bilirubin 0.6 mg/dL (0.15-1.2) 10/27/25 03:01 AST 29 U/L (0-40) 10/27/25 03:01 ALT 20 U/L (0-41) 10/27/25 03:01 Alkaline Phosphatase 179 U/L (40-130) H 10/27/25 03:01 Lactate Dehydrogenase 229 U/L (135-225) H 10/18/25 04:00 NT-Pro-B Natriuret Pep 41199 pg/mL (0-125) H 10/17/25 03:35 NT-Pro-B Natriuret Pep Cancelled 10/17/25 03:35 Total Protein 5.2 g/dL (6.6-8.7) L 10/27/25 03:01 Albumin 3.4 g/dL (3.5-5.2) L 10/27/25 03:01 Globulin 1.8 g/dL (1.3-4.6) 10/27/25 03:01 Triglycerides 85 mg/dL (0-150) 10/16/25 09:58 Cholesterol 90 mg/dL (0-200) 10/16/25 09:58 LDL Cholesterol, Calc 20 mg/dL (50-129) L 10/16/25 09:58 HDL Cholesterol 53 mg/dL (60-100) L 10/16/25 09:58 LDL/HDL Ratio 0.38 RATIO (0.00-3.22) 10/16/25 09:58 Cholesterol/HDL Ratio 1.70 mg/dL (1.0-5.00) 10/16/25 09:58 Lipase 17 U/L (13-60) 10/17/25 03:35 Procalcitonin 0.51 ng/mL (0-0.5) H 10/26/25 05:35 TSH 2.53 uIU/mL (0.27-4.20) 10/16/25 09:58 Urine Creatinine 90 mg/dL (39-259) 10/16/25 21:40 Nasal MRSA (PCR) Not detected (Negative) 10/16/25 18:03 Adenovirus (PCR) Not detected (NOT DETECT) 10/16/25 18:05 C. pneumoniae DNA (PCR) Not detected (NOT DETECT) 10/16/25 18:05 Coronavirus 229E (PCR) Not detected (NOT DETECT) 10/16/25 18:05 Hep Bs Antigen Non-reactive (Nonreactive) 10/16/25 09:58 Hep Bs Antibody < 3.5 (11.5-1000) L 10/16/25 09:58 Hepatitis C Antibody Non-reactive (Nonreactive) 10/16/25 09:58 Human Metapneumovir PCR Not detected (NOT DETECT) 10/16/25 18:05 Influenza A (H1) PCR Not detected (NOT DETECT) 10/16/25 18:05 Influ A (H1/09) PCR Not detected (NOT DETECT) 10/16/25 18:05 Influenza A (H3) PCR Not detected (NOT DETECT) 10/16/25 18:05 Influenza Type A (PCR) Not detected (NOT DETECT) 10/16/25 18:05 Influenza Type B (PCR) Not detected (NOT DETECT) 10/16/25 18:05 M. pneumoniae (PCR) Not detected (NOT DETECT) 10/16/25 18:05 Parainfluenza 1 (PCR) Not detected (NOT DETECT) 10/16/25 18:05 Parainfluenza 2 (PCR) Not detected (NOT DETECT) 10/16/25 18:05 Parainfluenza 3 (PCR) Not detected (NOT DETECT) 10/16/25 18:05 Parainfluenza 4 (PCR) Not detected (NOT DETECT) 10/16/25 18:05 RSV Type A (PCR) Not detected (NOT DETECT) 10/16/25 18:05 RSV Type B (PCR) Not detected (NOT DETECT) 10/16/25 18:05 Entero/Rhino (PCR) Not detected (NOT DETECT) 10/16/25 18:05 SARS-CoV-2 (PCR) Not detected (NOT DETECT) 10/16/25 18:05 Blood Type O Positive 10/25/25 08:19 Rho(D) Type Rh positive 10/25/25 08:19 Antibody Screen Negative 10/25/25 08:19 Crossmatch See Detail 10/25/25 08:19 Vitals Last Vital Signs Temp 98 F 10/27/25 19:51 Pulse 98 10/28/25 06:00 Resp 26 H 10/28/25 04:00 BP 148/79 10/28/25 04:00 Pulse Ox 94 10/28/25 04:00 O2 Del Method High Flow Nasal Cannula 10/27/25 22:00 O2 Flow Rate 8 10/27/25 22:00 FiO2 40 10/24/25 11:05 Discharge Plan Discharge Patient Disposition: Hospice - Home Condition: Stable Prescriptions: Continued (DME) Diabetic shoes See Rx Instructions .ROUTE .MEDSUPPLY Qty: 1 0RF Rx Instructions: With 3 pairs of inserts (DME) oxygen 0 .Route .MEDSUPPLY (DME) Cam boot to left See Rx Instructions .Route .MEDSUPPLY Qty: 1 0RF Rx Instructions: As directed (DME) CAM walker See Rx Instructions .Route .MEDSUPPLY Qty: 1 0RF Rx Instructions: As directed Stiolto Respimat 2.5-2.5 mcg/actuation mist 2 puff inhalation DAILY Qty: 4 11RF bisacodyl 10 mg suppository 10 mg AK DAILY PRN (Reason: constipation) Qty: 5 0RF Rx Instructions: 1 suppository per rectum every day PRN for constipation. diphenhydramine HCl 25 mg tablet 25 mg PO Q4H Qty: 5 0RF Rx Instructions: Take one tablet by mouth every 4 hours as needed for allergic reaction including: Rash and/or Itching morphine 10 mg/5 mL solution 20 mg sublingual DIRECTED PRN (Reason: pain/SOB) 14 Days Qty: 100 0RF Rx Instructions: 2.5ml -10ml q1H PRN may increase to 5ml -10ml Q1H PRN hydroxyzine HCl 25 mg tablet 25 mg PO TID PRN (Reason: Itching) Qty: 5 0RF Rx Instructions: Take 1 table by mouth as needed three times a day for itching atropine 1 % drops 4 drp sublingual Q4H PRN (Reason: secretions) Qty: 5 0RF Rx Instructions: 4 drops SL q 4 hours PRN for terminal congestion/excessive secretions. ondansetron 4 mg tablet,disintegrating 4 mg translingual Q4H PRN (Reason: nausea) Qty: 5 0RF Rx Instructions: Dissolve 1 tablet under tongue every 4 hours PRN for nausea lorazepam 2 mg/mL concentrate 2 mg sublingual Q4H PRN (Reason: Anxiety/Seizure) Qty: 30 0RF Rx Instructions: 0.25ml-1ml q4H PRN Anxiety/Seizure Start 0.25ml may increase to 0.5ml-1ml q4H levothyroxine 112 mcg tablet 112 mcg PO DAILY Adempas 2.5 mg Tablet 2.5 mg PO TID insulin aspart U-100 [Novolog FlexPen U-100 Insulin] 100 unit/mL (3 mL) insulin pen See Rx Instructions .ROUTE .COMPLEX Qty: 15 0RF Rx Instructions: Inject, subcut, 3 times daily, after meals, based on moderate dose insulin sliding scale benzonatate 100 mg Capsule 100 mg PO TID pantoprazole 40 mg Tablet,Delayed Release (Dr/Ec) 40 mg PO DAILY ondansetron HCl 4 mg tablet 4 mg PO Q4H PRN (Reason: Nausea And Vomiting) azelastine 137 mcg (0.1 %) spray,non-aerosol 1 spray INTRANASAL BID fluticasone propionate 50 mcg/actuation spray,suspension 50 mcg INTRANASAL BID Eliquis 2.5 mg tablet 2.5 mg PO BID bumetanide 1 mg tablet 2 mg PO BID midodrine 5 mg tablet 5 mg PO TID atorvastatin 40 mg tablet 40 mg PO DAILY acetaminophen [Tylenol Extra Strength] 500 mg Tablet 1,000 mg PO Q6H PRN (Reason: Fever Or Pain) Opsumit 10 mg tablet 10 mg PO DAILY Discharge Order = DC NOW: Discharge Order (Routine); Ordered 10/28/25 Ordered By: Devante Morfin Referrals: [facility] ([facility]) [Outside] Patrick Nikc MD [Primary Care Provider, [facility]] Referral Note: To follow with [facility] [place]ructions: Hospice Care, Lung Cancer (DC), Using Oxygen at Home (DC), Pleural Effusion (DC), Acute Wound Care (DC), Pneumonia (DC), Opioid Safety, Pneumonia Stoplight, Patient Portal & El Instructions Discharge Attestations Time Spent in Discharge Care*: greater than 30 min Specific Discharge Activities: educating patient, educating and/or supporting family/caregiver, discussing with pcp/other providers, discussing with transplant case manager/social workers/dc planners, documenting/other paperwork and evaluating patient/reviewing data Status at Discharge: Cognitive status at discharge: cognitively intact, Behavioral status at discharge: cooperative, Functional status at discharge: bed bound, Overall status at discharge: patient has a new baseline Quality Metrics Clinical Quality Measures [ No reported AMI, CVA or VTE this stay] Coding Level of Care Code 98222 Total time (in minutes) for Discharge: 50 Diagnoses ESRD needing dialysis N18.6; Z99.2
--- NOTE | 2025-10-28 09:36 | PC.NURSE ---
0910 Ambulance service picked patient up via stretcher for transport home to hospice care. earing aids / phone/ meds/blanket/jacket with patient all other belongs home last pm by significant other Esme. Esme call with update.
== END 2025-10-28 08:30 | disposition hospice, home (50) | DRG 193 ==
LOC: ER 11:04 → MEDSURG 11:31 → ICU 17:12
PROVIDERS: Clinical Nurse Specialist Acute Care; Family Medicine; Hospitalist; Internal Medicine; Surgery; Admitting Provider Internal Medicine; Emergency Provider Emergency Medicine; PCP Family Medicine; Visit Provider Student in an Organized Health Care Education/Training Program
DX: J18.9 Pneumonia, unspecified organism (principal); I50.23 Acute on chronic systolic (congestive) heart failure; N18.6 End stage renal disease; J96.21 Acute and chronic respiratory failure with hypoxia; I13.2 Hypertensive heart and chronic kidney disease with heart failure and with stage 5 chronic kidney disease, or end stage renal disease; J44.1 Chronic obstructive pulmonary disease with (acute) exacerbation; J44.0 Chronic obstructive pulmonary disease with (acute) lower respiratory infection; C34.11 Malignant neoplasm of upper lobe, right bronchus or lung; N17.9 Acute kidney failure, unspecified; T82.898A Other specified complication of vascular prosthetic devices, implants and grafts, initial encounter; J98.19 Other pulmonary collapse; D68.9 Coagulation defect, unspecified; E03.8 Other specified hypothyroidism; E11.22 Type 2 diabetes mellitus with diabetic chronic kidney disease; Z95.4 Presence of other heart-valve replacement; Z79.01 Long term (current) use of anticoagulants; Z99.81 Dependence on supplemental oxygen; Z79.4 Long term (current) use of insulin; Z79.890 Hormone replacement therapy; F17.200 Nicotine dependence, unspecified, uncomplicated; I95.9 Hypotension, unspecified; D69.6 Thrombocytopenia, unspecified; E83.42 Hypomagnesemia; E78.5 Hyperlipidemia, unspecified; I27.20 Pulmonary hypertension, unspecified; D63.1 Anemia in chronic kidney disease; K74.60 Unspecified cirrhosis of liver; E11.69 Type 2 diabetes mellitus with other specified complication; Z98.890 Other specified postprocedural states; Y92.239 Unspecified place in hospital as the place of occurrence of the external cause; Z51.5 Encounter for palliative care; Z66 Do not resuscitate; Z99.2 Dependence on renal dialysis; Z86.711 Personal history of pulmonary embolism
CPT/HCPCS: 36415; 36416; 36430; 36592; 71045; 71250; 77001; 80048; 80053; 80061; 80503; 82274; 82570; 82962; 83010; 83036; 83615; 83690; 83735; 83880; 84100; 84145; 84443; 85014; 85025; 85045; 85378; 85610; 85730; 86403; 86706; 86803; 86850; 86900; 86920; 87040; 87070; 87340; 87449; 87486; 87581; 87633; 90935; 93005; 94640; 96365; 96372; 96375; 99285; J0456; J0692; J0696; J1450; J1644; J1815; J1938; J2020; J2405; J2470; J2704; J2919; J3010; J3475; J7050; J7626; J9999; P9016; P9035; P9046; Q3014; Q5105